=== PATIENT | female | born 1945 | race Caucasian/White ===

== ENCOUNTER → 2017-06-11 | Outpatient (CLI) | payer OTHER ==
--- NOTE | 2017-06-11 17:18 | DIAGNOSTIC IMAGING REPORT ---
LEFT LOWER EXTREMITY VENOUS DOPPLER HISTORY: Left leg edema. COMPARISON STUDY: None. FINDINGS: There is normal compressibility, flow, and augmentation within the left lower extremity deep venous system. IMPRESSION: No DVT within the left lower extremity. Electronically signed by: Alfonso Collins M.D. 06/11/2017 5:17 PM Dictated Date/Time: 06/11/2017 5:17 PM
== END | disposition home or self-care (01) ==
LOC: C.ULTR 16:11
PROVIDERS: ATTEND Internal Medicine
DX: R60.0 Localized edema (principal)

== ENCOUNTER → 2017-07-04 | Outpatient (CLI) | payer OTHER ==
--- NOTE | 2017-07-04 15:32 | MAMMOGRAPHY REPORT ---
BILATERAL DIGITAL SCREENING MAMMOGRAM TOMOSYNTHESIS WITH CAD: 07/04/2017 CLINICAL HISTORY: Routine screening. Patient has no complaints. TECHNIQUE: Breast tomosynthesis in addition to standard 2D mammography was performed. Current study was also evaluated with a Computer Aided Detection (CAD) system. COMPARISON: Comparison is made to exams dated: 06/24/2015 mammogram, 05/21/2013 mammogram, 10/08/2011 nish mogram, 08/08/2009 mammogram - [facility], 11/10/2007, and 11/08/2006. BREAST COMPOSITION: The tissue of both breasts is almost entirely fatty. FINDINGS: No suspicious masses, calcifications, or areas of architectural distortion are noted in ei ther breast. There has been no significant interval change compared to prior exams. Scattered bilater al benign-appearing calcifications are not significantly changed. A biopsy clip is again noted withi n the right breast. IMPRESSION: ACR BI-RADS CATEGORY 2: BENIGN There is no mammographic evidence of malignancy. A 1 year screening mammogram is recommended. The pa tient will receive written notification of the results. Approximately 10% of breast cancers are not detected with mammography. A negative mammographic report should not delay biopsy if a clinically suggestive mass is present. Amanda Burgess M.D. ah/:07/04/2017 12:12:24 [employer] [employer]iser: Katherine EKCERT)([place]), [facility] letter sent: Normal 1/2 BI-RADS Code: ACR BI-RADS Category 2: Benign
== END | disposition home or self-care (01) ==
LOC: C.MAMM 10:46
PROVIDERS: ATTEND Internal Medicine
DX: Z12.31 Encounter for screening mammogram for malignant neoplasm of breast (principal)

== ENCOUNTER 2024-04-09 18:40 | Inpatient (IN) ==
[2024-04-09 19:07] LABS: Basophils # (auto) 0.07 K/uL (0.00-0.20); Basophils % (auto) 0.5 %; Eosinophils # (auto) 0.01 K/uL (0.00-0.50); Eosinophils % (auto) 0.1 %; Hematocrit (blood only) 34.4 % (37.0-47.0); Hemoglobin 11.6 g/dl (12.0-16.0); Immature Granulocytes # (auto) 0.06 K/uL (0.01-0.20); Immature Granulocytes % (auto) 0.4 %; Lymphocytes # (auto) 1.62 K/uL (1.20-3.40); Lymphocytes % (auto) 11.6 %; Mean Corpuscular Hemoglobin 29.4 pg (25.0-34.0); Mean Corpuscular Hgb Conc 33.7 g/dL (32.0-36.0); Mean Corpuscular Volume 87.1 fL (80.0-100.0); Mean Platelet Volume 9.7 fL (9.4-12.4); Monocytes # (auto) 0.98 K/uL (0.11-0.59); Neutrophils # (auto) 11.26 K/uL (1.40-6.50); Neutrophils % (auto) 80.4 %; Platelet Count 430 K/uL (130-400); RDW Coefficient of Variation 14.2 % (11.5-14.5); RDW Standard Deviation 45.6 fL (36.4-46.3); Red Blood Count 3.95 M/uL (4.20-5.40)
[2024-04-09 19:21] LABS: Albumin Globulin Ratio 0.8 (0.9-2); Albumin Level 3.7 gm/dl (3.4-5.0); BUN Creatinine Ratio 17.5 (10-20); Bilirubin,Total 0.9 mg/dl (0.2-1.0); Calcium 9.9 mg/dl (8.6-10.3); Creatinine Clr Calc Pharmacy 19.2 ml/min; Globulin 4.5 gm/dl (2.5-4.0); Potassium 4.1 mmol/L (3.5-5.1); Total Protein 8.2 gm/dl (6.0-8.3)
--- NOTE | 2024-04-09 19:31 | Emergency Department Note ---
Impression & Plan Abdominal pain, HTN (hypertension), Ileus, Constipation, Elevated lactic acid level ED Provider Note NAME: PAOLO PLEITEZ AGE: 78 SEX: F : 1945 ARRIVES VIA: Walk-In INFORMANT: Patient ED PROVIDER(S): Neville Carr DO CHIEF COMPLAINT: Abdominal pain HPI: Patient is a 78-year-old female who presents ER for mid to lower abdominal pain which radiates into the left lower quadrant. Associate with nausea but no vomiting. She notes she has not had a bowel movement for at least 2 weeks. Has not really been eating much but has been drinking. Denies any dysuria, urgency, or frequency. No headache or change in vision. No chest pain or shortness of breath. Daughter who is present at bedside provides additional history and notes that she had x-rays performed as an outpatient which showed a obstruction. Previous surgeries include cholecystectomy and hysterectomy. ADDITIONAL HISTORY OBTAINED: Per HPI Chronic Medical/Social Conditions Affecting Care: Per HPI PAST MEDICAL HISTORY:See Below PAST SURGICAL HISTORY:See Below FAMILY HISTORY:See Below SOCIAL HISTORY:See Below HOME MEDICATIONS:See Below ALLERGIES:See Below VITALS:See Below PHYSICAL EXAMINATION: GENERAL: Sitting up in bed, alert, well appearing, well nourished, no distress, non-toxic EYE EXAM: normal conjunctiva. OROPHARYNX: mucous membranes are moist NECK: supple, no nuchal rigidity, no adenopathy, non-tender LUNGS: Clear to auscultation. Normal chest wall mechanics HEART: no murmurs, S1 normal and S2 normal ABDOMEN: abdomen soft, faint tenderness in left lower quadrant, normo-active bowel sounds, no masses, no rebound or guarding. UPPER EXTREMITIES: upper extremities are grossly normal. LOWER EXTREMITIES: No pitting edema. NEURO EXAM: Normal sensorium, cranial nerves II-XII grossly intact, normal speech, no gross weakness of arms, no gross weakness of legs. MEDICAL DECISION MAKING: Patient is a 78-year-old female who presents ER with a past medical history of hypertension, COPD and dyslipidemia for the above-stated complaint. IV was established and blood work was obtained. Labs show mild leukocytosis of 14,000. Mild anemia at 11.6. BMP with mild hyponatremia at 129. Creatinine at 1.6. LFTs and bilirubin were unremarkable. Lipase was normal. Lactate was slightly elevated at 2.3. Initial CT of the abdomen pelvis after review of external records/x-rays which showed an ileus performed in [facility] from today showed abnormality around the aorta at the diaphragm level. I discussed this with Dr. Santoyo and consequently a CT angio of the chest abdomen pelvis was performed. Following this they noted no dissection of the aorta. There was multiple areas of narrowing of the arteries but no signs of ischemic bowel per Dr. Andrew Bentley. With this patient was given mag citrate. She had a small bowel movement. She felt slightly better. Blood pressures have trended down from the 180s to 140s function with bowel movement. With the slight elevation of lactate at 2.3, mild hyponatremia at 129 and white count of 18,000 did discuss case with the hospitalist as well as [employer] from general surgery for observation overnight. Consults/Care Managements Discussions: Per [facility] Triage Nursing notes reviewed. Limited review of prior medical records performed Vital Signs: reviewed and remarkable for tachy Differential diagnosis: Differential diagnoses includes but is not limited to gastritis, peptic ulcer disease, GERD, gallbladder disease, pancreatitis, small bowel obstruction, appendicitis, diverticulitis, hernia, urinary tract infection, torsion, [/ectopic (if female)], perforation, trauma, infectious. ER treatment provided: See below Diagnostics interpreted by me include EKG and cardiac monitoring as listed below: -Cardiac Monitoring: An order was placed for continuous cardiac monitoring. The monitor shows a rate of 101 with sinus rhythm. -ECG: none -Laboratory studies:Interpreted by me as stated above in MDM and shown below. Imaging studies: Xrays: As interpreted by me:none CTs show: CT abdomen pelvis per my preliminary interpretation showed large dilated bowel CT angio of the chest abdomen pelvis showed no signs of ischemic gut but did show a known abdominal aortic aneurysm with multiple chronic abnormalities per radiology Procedures:none Critical Care: None Past Med/Surg History Problem List (Updated 02/02/24 @ 00:06 by Anderson Hernandez) Dyslipidemia Hypertension COPD (chronic obstructive pulmonary disease) Social History Smoking Status: Current every day smoker Tobacco Type: Cigarettes Feels Safe at Home: Yes Allergies Allergies Allergy/AdvReac Type Severity Reaction Status Date / Time aspirin Allergy Intermediate Unverified 03/25/09 03:37 oxycodone Allergy Intermediate Unverified 03/25/09 03:37 Home Meds Home Medications Medication Instructions Recorded Confirmed albuterol sulfate 2.5 mg/3 mL 2.5 mg inhalation Q6H PRN Wheezing 01/18/24 04/09/24 (0.083 %) solution for nebulization albuterol sulfate 90 mcg/actuation 2 puff inhalation Q4 PRN Wheezing 01/18/24 04/09/24 aerosol inhaler (Ventolin HFA) aspirin 81 mg chewable tablet 81 mg PO DAILY 01/18/24 04/09/24 (Children's Aspirin) losartan 50 mg tablet 50 mg PO QAM 01/18/24 04/09/24 simvastatin 20 mg tablet 20 mg PO QAM 01/18/24 04/09/24 tiotropium bromide 18 mcg capsule 1 cap inhalation DAILY 01/18/24 04/09/24 with inhalation device (Spiriva with HandiHaler) duloxetine 60 mg capsule,delayed 60 mg PO QAM 04/09/24 04/09/24 release losartan 25 mg tablet 25 mg PO QAM 04/09/24 04/09/24 polyethylene glycol 3350 17 17 g PO QAM 04/09/24 04/09/24 gram/dose oral powder (Miralax) sennosides 8.6 mg tablet 17.2 mg PO QAM 04/09/24 04/09/24 Results & Data (ED) Vital Signs Vital Signs - 24 hr 04/09/24 18:44 04/09/24 20:02 04/09/24 20:09 Temperature 36.2 C L Temperature Source Temporal Artery Scan Pulse Rate 118 H 107 H 104 H Pulse Rate [Apical] Pulse Rate from SpO2 Sensor 104 H Respiratory Rate 20 19 Respiratory Effort / Characteristics Non-Labored Respiratory Depth Normal Respiratory Pattern Regular Blood Pressure 116/74 182/100 H Blood Pressure [Right Arm] Blood Pressure Mean 88 127 Blood Pressure Mean [Right Arm] Pulse Oximetry 97 97 Oxygen Delivery Method Room Air Sepsis Recent Fever Within 48 Hours No Sepsis New/Unexplained Change in Mental Status N/A Sepsis Action Taken by Nursing No Action Required 04/09/24 20:33 04/09/24 20:34 04/09/24 20:34 Temperature Temperature Source Pulse Rate 102 H Pulse Rate [Apical] 103 H Pulse Rate from SpO2 Sensor 102 H Respiratory Rate 17 19 Respiratory Effort / Characteristics Non-Labored Spontaneous Respiratory Depth Normal Respiratory Pattern Regular Blood Pressure 184/102 H Blood Pressure [Right Arm] 184/102 H Blood Pressure Mean 130 Blood Pressure Mean [Right Arm] 129 Pulse Oximetry 96 97 Oxygen Delivery Method Sepsis Recent Fever Within 48 Hours Sepsis New/Unexplained Change in Mental Status Sepsis Action Taken by Nursing 04/09/24 20:34 04/09/24 21:00 04/09/24 21:00 Temperature Temperature Source Pulse Rate 101 H Pulse Rate [Apical] Pulse Rate from SpO2 Sensor 101 H Respiratory Rate 19 Respiratory Effort / Characteristics Respiratory Depth Respiratory Pattern Blood Pressure 184/102 H 194/104 H Blood Pressure [Right Arm] Blood Pressure Mean 130 148 Blood Pressure Mean [Right Arm] Pulse Oximetry 96 Oxygen Delivery Method Sepsis Recent Fever Within 48 Hours Sepsis New/Unexplained Change in Mental Status Sepsis Action Taken by Nursing 04/09/24 21:00 04/09/24 21:39 04/09/24 22:00 Temperature Temperature Source Pulse Rate 102 H 103 H Pulse Rate [Apical] Pulse Rate from SpO2 Sensor 101 H 101 H Respiratory Rate 18 21 Respiratory Effort / Characteristics Respiratory Depth Respiratory Pattern Blood Pressure 194/104 H 186/102 H 180/105 H Blood Pressure [Right Arm] Blood Pressure Mean 148 130 130 Blood Pressure Mean [Right Arm] Pulse Oximetry 96 96 Oxygen Delivery Method Sepsis Recent Fever Within 48 Hours Sepsis New/Unexplained Change in Mental Status Sepsis Action Taken by Nursing 04/09/24 22:30 04/09/24 23:30 Temperature Temperature Source Pulse Rate 107 H 114 H Pulse Rate [Apical] Pulse Rate from SpO2 Sensor 107 H Respiratory Rate 21 20 Respiratory Effort / Characteristics Respiratory Depth Respiratory Pattern Blood Pressure 139/88 Blood Pressure [Right Arm] Blood Pressure Mean 129 Blood Pressure Mean [Right Arm] Pulse Oximetry 98 98 Oxygen Delivery Method Sepsis Recent Fever Within 48 Hours Sepsis New/Unexplained Change in Mental Status Sepsis Action Taken by Nursing Laboratory Data 04/09/24 18:51 04/09/24 18:51 Lab Results 04/09/24 04/09/24 Range/Units 18:51 23:30 WBC 14.00 H (4.8-10.8) K/ul RBC 3.95 L (4.20-5.40) M/uL Hgb 11.6 L (12.0-16.0) g/dl Hct 34.4 L (37.0-47.0) % MCV 87.1 (80.0-100.0) fL MCH 29.4 (25.0-34.0) pg MCHC 33.7 (32.0-36.0) g/dL RDW Std Deviation 45.6 (36.4-46.3) fL RDW Coeff of August 14.2 (11.5-14.5) % Plt Count 430 H (130-400) K/uL MPV 9.7 (9.4-12.4) fL Immature Gran % (Auto) 0.4 % Neut % (Auto) 80.4 % Lymph % (Auto) 11.6 % [place] % (Auto) 7.0 % Eos % (Auto) 0.1 % Baso % (Auto) 0.5 % Neut # (Auto) 11.26 H (1.40-6.50) K/uL Lymph # (Auto) 1.62 (1.20-3.40) K/uL [place] # (Auto) 0.98 H (0.11-0.59) K/uL Eos # (Auto) 0.01 (0.00-0.50) K/uL Baso # (Auto) 0.07 (0.00-0.20) K/uL Immature Gran # (Auto) 0.06 (0.01-0.20) K/uL Sodium 129 L (136-145) mmol/L Potassium 4.1 (3.5-5.1) mmol/L Chloride 92 L (98-107) mmol/L Carbon Dioxide 25 (21-32) mmol/L Anion Gap 12 H (3-11) BUN 28 H (6-23) mg/dl Creatinine 1.60 H (0.6-1.2) mg/dl Est Cr Clr Drug Dosing 19.2 ml/min eGFR 32.60 BUN/Creatinine Ratio 17.5 (10-20) Glucose 121 H (70-99(Fasting)) mg/dl Lactate 2.3 H* (0.4-2.0) mmol/L Calcium 9.9 (8.6-10.3) mg/dl Total Bilirubin 0.9 (0.2-1.0) mg/dl AST 12 L (13-39) U/L ALT 7 (7-52) U/L Alkaline Phosphatase 105 H (34-104) U/L Total Protein 8.2 (6.0-8.3) gm/dl Albumin 3.7 (3.4-5.0) gm/dl Globulin 4.5 H (2.5-4.0) gm/dl Albumin/Globulin Ratio 0.8 L (0.9-2) Lipase 6 L (11-82) U/L Administered Medications Discontinued Medications Sodium Chloride (Nss) 1,000 mls @ 999 mls/hr IV .Q1H1M ONE Stop: 04/09/24 20:22 Last Infusion: 04/09/24 22:02 Dose: Infused Documented By: Admin: 04/09/24 20:05 Dose: 999 mls/hr Documented By: WESLEY Ioversol (Optiray 320 100ml) 90 ml IV ONCE ONE Stop: 04/09/24 19:49 Last Admin: 04/09/24 19:48 Dose: 90 ml Documented By: BROOKS Ioversol (Optiray 320 125ml) 115 ml IV ONCE ONE Stop: 04/09/24 21:20 Last Admin: 04/09/24 21:20 Dose: 115 ml Documented By: BROOKS Magnesium Citrate (Magnesium Citrate 296 Ml/Btl) 296 ml PO NOW STA Stop: 04/09/24 21:11 Last Admin: 04/09/24 22:03 Dose: 296 ml Documented By: WESLEY Imaging Data Radiologist's Impression: Abdomen/Pelvis CT 04/09/24 19:22 Exam(s): CT ABDOMEN + PELVIS Without Contrast EXAM: CT Abdomen and Pelvis Without Intravenous Contrast CLINICAL HISTORY: Reason for exam: abd pain n/v. TECHNIQUE: Axial computed tomography images of the abdomen and pelvis without intravenous contrast. CTDI is 6.77 mGy and DLP is 307.45 mGy-cm. Automated exposure control was utilized for the study. A dose lowering technique was utilized adhering to the principles of ALARA. COMPARISON: No relevant prior studies available. FINDINGS: Lung bases: Unremarkable. ABDOMEN: Liver: Unremarkable. Gallbladder and bile ducts: Unremarkable. No calcified stones. No ductal dilation. Pancreas: Unremarkable. No ductal dilation. Spleen: Unremarkable. No splenomegaly. Adrenals: Unremarkable. No mass. Kidneys and ureters: Unremarkable. No obstructing stones. No hydronephrosis. Stomach and bowel: Increased colonic stool retention suggesting constipation. There is significant stool and gas in the right colon and transverse colon. No mechanical bowel obstruction. Distal colonic diverticula without diverticulitis. PELVIS: Appendix: Appendix not identified with certainty. Bladder: Unremarkable. No stones. Reproductive: Hysterectomy. ABDOMEN and PELVIS: Intraperitoneal space: Unremarkable. No free air, significant free fluid, or fluid collection. Bones/joints: Osteopenia. No acute fracture or dislocation. Soft tissues: Unremarkable. Vasculature: Aortoiliac atherosclerosis. 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 There is some nonspecific soft tissue density surrounding the aneurysm. 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 Fusiform infrarenal aortic aneurysm measuring up to 3 cm. Lymph nodes: Unremarkable. No enlarged lymph nodes. IMPRESSION: 1. Increased colonic stool retention suggesting constipation. There is significant stool and gas in the right colon and transverse colon. 2. Aortoiliac atherosclerosis. 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 There is some nonspecific soft tissue density surrounding the aneurysm. As clinically feasible, consider CTA for further characterization. Vascular surgery follow-up is recommended. Electronically signed by: Dann Vieyra M.D. 04/09/24 20:35 PM Chest CTA 04/09/24 21:10 Exam(s): CTA CHEST W/WO Contrast IV Amt: 115 ml optiray 320 EXAM: CT Angiography Chest Without and With Intravenous Contrast CLINICAL HISTORY: ? Dissection at the junction of the diaphragm per. TECHNIQUE: Axial computed tomographic angiography images of the chest without and with intravenous contrast using aortic dissection protocol. CTDI is 65. 74 mGy and DLP is 575.65 mGy-cm. Automated exposure control was utilized for the study. A dose lowering technique was utilized adhering to the principles of ALARA. MIP reconstructed images were created and reviewed. CONTRAST: Patient received 115 ml optiray 320 of IV contrast 115 mL Optiray 320 COMPARISON: Noncontrast CT abdomen and pelvis performed earlier FINDINGS: Aorta: The ascending aorta is ectatic, with the mid ascending aorta measuring 3.3 cm. The aortic arch and descending aorta demonstrate extensive atherosclerotic disease. No intimal wall abnormality identified on the precontrast imaging. Postcontrast imaging demonstrates extensive atheromatous changes involving the mid to descending aorta. 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 There is eccentric atheromatous changes. No intimal wall abnormality noted on the precontrast examination. No extravasation. However, there is questionable soft tissue beyond the calcified aortic wall margin at the hiatus measuring up to 7 mm in thickness. No dissection Pulmonary arteries: The proximal pulmonary artery segments are patent. Great vessels of aortic arch: There is a normal type III branching pattern of the proximal great vessels with atheromatous changes. No critical stenosis, dissection or occlusion. Lungs: No focal airspace consolidation. There is a somewhat irregular nodular structure in the lateral right upper lobe measuring 7.9 x 7 x 7 mm (series 7; images 74-79). Somewhat angular and spiculated margins suggested inferiorly. There are additional nodular structures within the 9 mm structure noted in the superior segment of the left lower lobe adjacent to the major fissure (image 90). There is also subtle irregularity juxtapleural changes measuring 6 mm laterally (image 96). Mild peribronchial cuffing noted centrally. Subtle short segment opacification of the proximal subsegmental branches serving the right middle lobe. Pleural space: Unremarkable. No significant effusion. No pneumothorax. Heart: The cardiac chambers are normal in size. Moderate proximal LAD calcification. No pericardial effusion. Bones/joints: No acute fracture. No dislocation. Soft tissues: Unremarkable. Lymph nodes: Unremarkable. No enlarged lymph nodes. IMPRESSION: 1. 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 There is eccentric atheromatous changes. No intimal wall abnormality noted on the precontrast examination. No extravasation. However, there is questionable soft tissue beyond the calcified aortic wall margin at the hiatus measuring up to 7 mm in thickness. Recommend nonemergent vascular surgery consultation. 2. Atherosclerotic disease involving the remaining thoracic aorta with ectasia of the ascending segment. No dissection. No intimal wall abnormality identified. 3. There is a somewhat irregular nodular structure in the lateral right upper lobe measuring 7.9 x 7 x 7 mm (series 7; images 74-79). Somewhat angular and spiculated margins suggested inferiorly. There are additional nodular structures within the 9 mm structure noted in the superior segment of the left lower lobe adjacent to the major fissure (image 90). There is also subtle irregularity juxtapleural changes measuring 6 mm laterally (image 96). Fleischner Society Guidelines (MacMahon, et al. Radiology 2017; 284(1):228-43) suggest the following. For low-risk patients recommend follow-up chest CT at 3-6 months. If unchanged consider an additional follow-up CT at 18-24 months. For high- risk patients initial follow-up chest CT at 3-6 months and if unchanged, 18-24 months. 4. Mild peribronchial cuffing noted centrally. Subtle short segment opacification of the proximal subsegmental branches serving the right middle lobe. This may represent chronic changes, subtle inflammatory or infectious bronchitis. Electronically signed by: Andrew Deal MD 04/09/24 22:05 PM Abdomen/Pelvis CTA 04/09/24 21:12 Exam(s): CTA ABDOMEN + PELVIS With Contrast IV Amt: 115 ml optiray 320 EXAM: CT Angiography Abdomen and Pelvis With Intravenous Contrast CLINICAL HISTORY: ? dissection. TECHNIQUE: Axial computed tomographic angiography images of the abdomen and pelvis with intravenous contrast. CTDI is 5.73 mGy and DLP is 354.01 mGy-cm. Automated exposure control was utilized for the study. A dose lowering technique was utilized adhering to the principles of ALARA. MIP reconstructed images were created and reviewed. CONTRAST: Patient received 115 ml optiray 320 of IV contrast COMPARISON: Noncontrast CT abdomen and pelvis performed at 1949 hrs. 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 There is eccentric atheromatous changes. No intimal wall abnormality noted on the precontrast examination. No extravasation. However, there is questionable soft tissue beyond the calcified aortic wall margin at the hiatus measuring up to 7 mm in thickness. Undulating ectasia of the infrarenal aorta throughout the abdomen with the aorta measuring up to 3 cm in diameter with eccentric atheromatous changes. There is a gradual tapering above the iliac bifurcation. No acute periaortic abnormality identified. No dissection. 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 There is a tight stenosis of the ostium involving the SMA, measuring only 1.5 mm (series 8; images 67- 76). The MARIO is hypertrophied and is patent. Renal arteries: There is a thrombosed saccular aneurysm component posterior and slightly inferior to the right renal artery ostium with the aneurysm measuring 10 mm (series 800; image 39). There is tight stenosis of the proximal right renal artery, measuring only 1-2 mm. Mild narrowing of the proximal left renal artery. Iliac arteries: Atherosclerotic disease involving the iliac arteries. There is a stent in the right external iliac artery. The left external iliac artery is occluded. The femoral-femoral bypass graft is patent with reconstitution of the left distal common femoral artery. Lung bases: For findings regarding the lung bases, please see the CT report of the chest performed concurrently. ABDOMEN: Liver: Unremarkable. No mass. Gallbladder and bile ducts: Cholecystectomy. Status post cholecystectomy. No ductal dilation. Pancreas: Unremarkable. No ductal dilation. No mass. Spleen: Unremarkable. No splenomegaly. Adrenals: Unremarkable. No mass. Kidneys and ureters: Unremarkable. No hydronephrosis. No solid mass. Stomach and bowel: No focal high-grade bowel obstruction. No definite asymmetric bowel mucosal abnormality. Moderate stool burden. PELVIS: Appendix: No findings to suggest acute appendicitis. Bladder: Unremarkable. No mass. Reproductive: Status post hysterectomy. ABDOMEN and PELVIS: Intraperitoneal space: Unremarkable. No significant fluid collection. No free air. Bones/joints: A healing subacute fracture involving the anterior column of the right acetabulum and involving the right inferior pubic ramus. Subacute fracture involving the right sacral wing. No dislocation. Soft tissues: Unremarkable. Lymph nodes: Unremarkable. No enlarged lymph nodes. IMPRESSION: 1. 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 There is eccentric atheromatous changes. No intimal wall abnormality noted on the precontrast examination. No extravasation. However, there is questionable soft tissue beyond the calcified aortic wall margin at the hiatus measuring up to 7 mm in thickness. Recommend nonemergent vascular surgery consultation. 2. 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 There is a tight stenosis of the ostium involving the SMA, measuring only 1.5 mm (series 8; images 67-76). The MARIO is hypertrophied and is patent. While this may represent incidental finding, given the adjacent fusiform aneurysm, this will be clinically significant if there is planned endovascular stenting. 3. Undulating ectasia of the infrarenal aorta throughout the abdomen with the aorta measuring up to 3 cm in diameter with eccentric atheromatous changes. There is a gradual tapering above the iliac bifurcation. No acute periaortic abnormality identified. 4. There is tight stenosis of the proximal right renal artery, measuring only 1-2 mm. Mild narrowing of the proximal left renal artery. 5. Atherosclerotic disease involving the iliac arteries. There is a stent in the right external iliac artery. The left external iliac artery is occluded. The femoral-femoral bypass graft is patent with reconstitution of the left distal common femoral artery. 6. A healing subacute fracture involving the anterior column of the right acetabulum and involving the right inferior pubic ramus. Subacute fracture involving the right sacral wing. Electronically signed by: Andrew Deal MD 04/09/24 22:22 PM Discharge Plan Visit Data Chief Complaint: GI Assessment Stated Complaint: BOWEL OBSTRUCTION POSSIBLE ED Provider: Neville Carr Forms Stand Alone Forms: [facility] Prescriptions Prescriptions: No Action losartan 50 mg tablet 50 mg PO QAM tiotropium bromide [Spiriva with HandiHaler] 18 mcg capsule, w/inhalation device 1 cap INHALATION DAILY simvastatin 20 mg tablet 20 mg PO QAM aspirin [Children's Aspirin] 81 mg Tablet,Chewable 81 mg PO DAILY albuterol sulfate [Ventolin HFA] 90 mcg/actuation HFA aerosol inhaler 2 puff INHALATION Q4 PRN (Reason: Wheezing) albuterol sulfate 2.5 mg /3 mL (0.083 %) Solution For Nebulization 2.5 mg INHALATION Q6H PRN (Reason: Wheezing) losartan 25 mg tablet 25 mg PO QAM duloxetine 60 mg capsule,delayed release(DR/EC) 60 mg PO QAM sennosides 8.6 mg Tablet 17.2 mg PO QAM polyethylene glycol 3350 [Miralax] 17 gram/dose Powder 17 g PO QAM Referrals Referrals: Maria G Rendon, [Primary Care Provider] -
[2024-04-09] MEDS: OPTIRAY 320 100ml IV ONE (19:48)
[2024-04-09] MEDS: SODIUM CHLORIDE 0.9% 1,000 ML IV ONE (20:05)
--- NOTE | 2024-04-09 20:36 | CT Scan Report ---
Exam(s): CT ABDOMEN + PELVIS Without Contrast EXAM: CT Abdomen and Pelvis Without Intravenous Contrast CLINICAL HISTORY: Reason for exam: abd pain n/v. TECHNIQUE: Axial computed tomography images of the abdomen and pelvis without intravenous contrast. CTDI is 6.77 mGy and DLP is 307.45 mGy-cm. Automated exposure control was utilized for the study. A dose lowering technique was utilized adhering to the principles of ALARA. COMPARISON: No relevant prior studies available. FINDINGS: Lung bases: Unremarkable. ABDOMEN: Liver: Unremarkable. Gallbladder and bile ducts: Unremarkable. No calcified stones. No ductal dilation. Pancreas: Unremarkable. No ductal dilation. Spleen: Unremarkable. No splenomegaly. Adrenals: Unremarkable. No mass. Kidneys and ureters: Unremarkable. No obstructing stones. No hydronephrosis. Stomach and bowel: Increased colonic stool retention suggesting constipation. There is significant stool and gas in the right colon and transverse colon. No mechanical bowel obstruction. Distal colonic diverticula without diverticulitis. PELVIS: Appendix: Appendix not identified with certainty. Bladder: Unremarkable. No stones. Reproductive: Hysterectomy. ABDOMEN and PELVIS: Intraperitoneal space: Unremarkable. No free air, significant free fluid, or fluid collection. Bones/joints: Osteopenia. No acute fracture or dislocation. Soft tissues: Unremarkable. Vasculature: Aortoiliac atherosclerosis. 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 There is some nonspecific soft tissue density surrounding the aneurysm. 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 Fusiform infrarenal aortic aneurysm measuring up to 3 cm. Lymph nodes: Unremarkable. No enlarged lymph nodes. IMPRESSION: 1. Increased colonic stool retention suggesting constipation. There is significant stool and gas in the right colon and transverse colon. 2. Aortoiliac atherosclerosis. 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 There is some nonspecific soft tissue density surrounding the aneurysm. As clinically feasible, consider CTA for further characterization. Vascular surgery follow-up is recommended. Electronically signed by: Dann Vieyra M.D. 04/09/24 20:35 PM
[2024-04-09] MEDS: OPTIRAY 320 125ml IV ONE (21:20)
[2024-04-09] MEDS: MAGNESIUM CITRATE 296 ML/BTL PO STA (22:03)
--- NOTE | 2024-04-09 22:07 | CT Scan Report ---
Exam(s): CTA CHEST W/WO Contrast IV Amt: 115 ml optiray 320 EXAM: CT Angiography Chest Without and With Intravenous Contrast CLINICAL HISTORY: ? Dissection at the junction of the diaphragm per. TECHNIQUE: Axial computed tomographic angiography images of the chest without and with intravenous contrast using aortic dissection protocol. CTDI is 65. 74 mGy and DLP is 575.65 mGy-cm. Automated exposure control was utilized for the study. A dose lowering technique was utilized adhering to the principles of ALARA. MIP reconstructed images were created and reviewed. CONTRAST: Patient received 115 ml optiray 320 of IV contrast 115 mL Optiray 320 COMPARISON: Noncontrast CT abdomen and pelvis performed earlier FINDINGS: Aorta: The ascending aorta is ectatic, with the mid ascending aorta measuring 3.3 cm. The aortic arch and descending aorta demonstrate extensive atherosclerotic disease. No intimal wall abnormality identified on the precontrast imaging. Postcontrast imaging demonstrates extensive atheromatous changes involving the mid to descending aorta. 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 There is eccentric atheromatous changes. No intimal wall abnormality noted on the precontrast examination. No extravasation. However, there is questionable soft tissue beyond the calcified aortic wall margin at the hiatus measuring up to 7 mm in thickness. No dissection Pulmonary arteries: The proximal pulmonary artery segments are patent. Great vessels of aortic arch: There is a normal type III branching pattern of the proximal great vessels with atheromatous changes. No critical stenosis, dissection or occlusion. Lungs: No focal airspace consolidation. There is a somewhat irregular nodular structure in the lateral right upper lobe measuring 7.9 x 7 x 7 mm (series 7; images 74-79). Somewhat angular and spiculated margins suggested inferiorly. There are additional nodular structures within the 9 mm structure noted in the superior segment of the left lower lobe adjacent to the major fissure (image 90). There is also subtle irregularity juxtapleural changes measuring 6 mm laterally (image 96). Mild peribronchial cuffing noted centrally. Subtle short segment opacification of the proximal subsegmental branches serving the right middle lobe. Pleural space: Unremarkable. No significant effusion. No pneumothorax. Heart: The cardiac chambers are normal in size. Moderate proximal LAD calcification. No pericardial effusion. Bones/joints: No acute fracture. No dislocation. Soft tissues: Unremarkable. Lymph nodes: Unremarkable. No enlarged lymph nodes. IMPRESSION: 1. 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 There is eccentric atheromatous changes. No intimal wall abnormality noted on the precontrast examination. No extravasation. However, there is questionable soft tissue beyond the calcified aortic wall margin at the hiatus measuring up to 7 mm in thickness. Recommend nonemergent vascular surgery consultation. 2. Atherosclerotic disease involving the remaining thoracic aorta with ectasia of the ascending segment. No dissection. No intimal wall abnormality identified. 3. There is a somewhat irregular nodular structure in the lateral right upper lobe measuring 7.9 x 7 x 7 mm (series 7; images 74-79). Somewhat angular and spiculated margins suggested inferiorly. There are additional nodular structures within the 9 mm structure noted in the superior segment of the left lower lobe adjacent to the major fissure (image 90). There is also subtle irregularity juxtapleural changes measuring 6 mm laterally (image 96). Fleischner Society Guidelines (MacMahon, et al. Radiology 2017; 284(1):228-43) suggest the following. For low-risk patients recommend follow-up chest CT at 3-6 months. If unchanged consider an additional follow-up CT at 18-24 months. For high- risk patients initial follow-up chest CT at 3-6 months and if unchanged, 18-24 months. 4. Mild peribronchial cuffing noted centrally. Subtle short segment opacification of the proximal subsegmental branches serving the right middle lobe. This may represent chronic changes, subtle inflammatory or infectious bronchitis. Electronically signed by: Andrew Deal MD 04/09/24 22:05 PM
--- NOTE | 2024-04-09 22:22 | CT Scan Report ---
Exam(s): CTA ABDOMEN + PELVIS With Contrast IV Amt: 115 ml optiray 320 EXAM: CT Angiography Abdomen and Pelvis With Intravenous Contrast CLINICAL HISTORY: ? dissection. TECHNIQUE: Axial computed tomographic angiography images of the abdomen and pelvis with intravenous contrast. CTDI is 5.73 mGy and DLP is 354.01 mGy-cm. Automated exposure control was utilized for the study. A dose lowering technique was utilized adhering to the principles of ALARA. MIP reconstructed images were created and reviewed. CONTRAST: Patient received 115 ml optiray 320 of IV contrast COMPARISON: Noncontrast CT abdomen and pelvis performed at 1949 hrs. 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 There is eccentric atheromatous changes. No intimal wall abnormality noted on the precontrast examination. No extravasation. However, there is questionable soft tissue beyond the calcified aortic wall margin at the hiatus measuring up to 7 mm in thickness. Undulating ectasia of the infrarenal aorta throughout the abdomen with the aorta measuring up to 3 cm in diameter with eccentric atheromatous changes. There is a gradual tapering above the iliac bifurcation. No acute periaortic abnormality identified. No dissection. 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 There is a tight stenosis of the ostium involving the SMA, measuring only 1.5 mm (series 8; images 67- 76). The MARIO is hypertrophied and is patent. Renal arteries: There is a thrombosed saccular aneurysm component posterior and slightly inferior to the right renal artery ostium with the aneurysm measuring 10 mm (series 800; image 39). There is tight stenosis of the proximal right renal artery, measuring only 1-2 mm. Mild narrowing of the proximal left renal artery. Iliac arteries: Atherosclerotic disease involving the iliac arteries. There is a stent in the right external iliac artery. The left external iliac artery is occluded. The femoral-femoral bypass graft is patent with reconstitution of the left distal common femoral artery. Lung bases: For findings regarding the lung bases, please see the CT report of the chest performed concurrently. ABDOMEN: Liver: Unremarkable. No mass. Gallbladder and bile ducts: Cholecystectomy. Status post cholecystectomy. No ductal dilation. Pancreas: Unremarkable. No ductal dilation. No mass. Spleen: Unremarkable. No splenomegaly. Adrenals: Unremarkable. No mass. Kidneys and ureters: Unremarkable. No hydronephrosis. No solid mass. Stomach and bowel: No focal high-grade bowel obstruction. No definite asymmetric bowel mucosal abnormality. Moderate stool burden. PELVIS: Appendix: No findings to suggest acute appendicitis. Bladder: Unremarkable. No mass. Reproductive: Status post hysterectomy. ABDOMEN and PELVIS: Intraperitoneal space: Unremarkable. No significant fluid collection. No free air. Bones/joints: A healing subacute fracture involving the anterior column of the right acetabulum and involving the right inferior pubic ramus. Subacute fracture involving the right sacral wing. No dislocation. Soft tissues: Unremarkable. Lymph nodes: Unremarkable. No enlarged lymph nodes. IMPRESSION: 1. 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 There is eccentric atheromatous changes. No intimal wall abnormality noted on the precontrast examination. No extravasation. However, there is questionable soft tissue beyond the calcified aortic wall margin at the hiatus measuring up to 7 mm in thickness. Recommend nonemergent vascular surgery consultation. 2. 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 There is a tight stenosis of the ostium involving the SMA, measuring only 1.5 mm (series 8; images 67-76). The MARIO is hypertrophied and is patent. While this may represent incidental finding, given the adjacent fusiform aneurysm, this will be clinically significant if there is planned endovascular stenting. 3. Undulating ectasia of the infrarenal aorta throughout the abdomen with the aorta measuring up to 3 cm in diameter with eccentric atheromatous changes. There is a gradual tapering above the iliac bifurcation. No acute periaortic abnormality identified. 4. There is tight stenosis of the proximal right renal artery, measuring only 1-2 mm. Mild narrowing of the proximal left renal artery. 5. Atherosclerotic disease involving the iliac arteries. There is a stent in the right external iliac artery. The left external iliac artery is occluded. The femoral-femoral bypass graft is patent with reconstitution of the left distal common femoral artery. 6. A healing subacute fracture involving the anterior column of the right acetabulum and involving the right inferior pubic ramus. Subacute fracture involving the right sacral wing. Electronically signed by: Andrew Deal MD 04/09/24 22:22 PM
[2024-04-09] MEDS: SODIUM CHLORIDE 0.9% 500 ML IV ONE (23:51)
--- NOTE | 2024-04-09 23:57 | History & Physical Report ---
Date of Service April 09, 2024 Assessment & Plan (1) Severe sepsis: Plan: Severe sepsis SIRS plus lactic acidosis Secondary to complicated UTI History chronic constipation/gastroparesis/chronic mesenteric ischemia as per records Hypertensive urgency secondary to illness Acute on chronic hyponatremia secondary to illness hx PVD status post surgery hyperlipidemia, on statin Rx COPD, lung status at baseline pulmonary nodules, right upper lobe nodule possibly enlarging on review of outpatient records, CRI, creatinine at baseline history of DVT as per records Hyperglycemia ro DM Malnutrition low BMI ongoing tobacco abuse 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 Heparin subcu Full code Patient granddaughter requesting updates from providers. Ms. Abby Barnett, contact #[phone]. Text document was generated using [employer] voice recognition software. It may contain grammatical or spelling errors. Kindly contact undersigned for clarification of any documentation item in question. History of Present Illness Chief Complaint: Abdominal pain Primary Care Provider: Maria G Rendon, History obtained from patient, family, and records. Medical history significant for PVD status post surgery, hypertension, hyperlipidemia, COPD, pulmonary nodules, CRI (baseline creatinine 1.1-1.4), gastroparesis, chronic mesenteric ischemia as per records, chronic constipation, chronic anemia (baseline hemoglobin of 11), chronic hyponatremia, history of DVT as per records, anxiety disorder, ongoing tobacco abuse. 2 weeks history of worsening achy lower abdominal pain. Dysuria symptoms without fever, chills. Denies hematuria. Usual constipation. Last BM about 2 weeks ago which has happened before as per patient. Patient denies headache, chest pain, SOB symptoms. Some nausea symptoms. Patient directed to ER for evaluation by PCPs office. SBP 180s upon arrival at the ER. Medical History as above 2007 colonoscopy adenomatous and hyperplastic polyps, diverticulosis Surgical History : Cholecystectomy, ALLI, vascular procedures Family History : Breast cancer, lung cancer, bronchial asthma Personal/Social history : 1/4 pack daily, no EtOH intake Allergies Allergy/AdvReac Type Severity Reaction Status Date / Time oxycodone Allergy Intermediate Unknown Unverified 04/10/24 01:13 Home Medications Medication Instructions Recorded Confirmed Type albuterol sulfate 2.5 mg/3 mL 2.5 mg inhalation Q6H PRN Wheezing 01/18/24 04/09/24 History (0.083 %) solution for nebulization albuterol sulfate 90 mcg/actuation 2 puff inhalation Q4 PRN Wheezing 01/18/24 04/09/24 History aerosol inhaler (Ventolin HFA) aspirin 81 mg chewable tablet 81 mg PO DAILY 01/18/24 04/09/24 History (Children's Aspirin) losartan 50 mg tablet 50 mg PO QAM 01/18/24 04/09/24 History simvastatin 20 mg tablet 20 mg PO QAM 01/18/24 04/09/24 History tiotropium bromide 18 mcg capsule 1 cap inhalation DAILY 01/18/24 04/09/24 History with inhalation device (Spiriva with HandiHaler) duloxetine 60 mg capsule,delayed 60 mg PO QAM 04/09/24 04/09/24 History release losartan 25 mg tablet 25 mg PO QAM 04/09/24 04/09/24 History polyethylene glycol 3350 17 17 g PO QAM 04/09/24 04/09/24 History gram/dose oral powder (Miralax) sennosides 8.6 mg tablet 17.2 mg PO QAM 04/09/24 04/09/24 History Past Med/Surg History Problem List (Updated 04/10/24 @ 05:50 by Johnson Bright MD) Severe sepsis Elevated lactic acid level Dyslipidemia Hypertension COPD (chronic obstructive pulmonary disease) Social History Smoking Status: Current every day smoker Tobacco Type: Cigarettes Hx Alcohol Use: No Hx Substance Use: No Preferred Language: [place] Engine 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 Required: No Current Living Situation: Alone Feels Safe at Home: Yes Review of Systems Review of Systems: As per HPI, all other systems reviewed and negative Physical Exam Physical Exam: GENERAL: Comfortable, underweight, no respiratory distress SKIN: Pallor, warm HEENT: Pale palpebral conjunctivae, no ptosis, dry buccal mucosa NECK : Supple, no tenderness CHEST : Decreased breath sounds, no tenderness HEART : Tachycardic, no obvious murmurs ABDOMEN: Some distention, minimal hypogastric tenderness EXTREMITIES : No LE swelling/tenderness, palpable pulses, no other conspicuous deformities noted NEUROLOGIC : Coherent, no facial asymmetry, no other gross focality Results & Data Results & Data Vital Signs (Past 12 Hours) Vital Signs Temp Pulse Pulse Resp BP BP Pulse Ox 04/09/24 23:51 103 H 139/88 98 04/09/24 23:30 114 H 20 139/88 98 04/09/24 22:30 107 H 21 98 04/09/24 22:00 103 H 21 180/105 H 96 04/09/24 21:39 102 H 18 186/102 H 96 04/09/24 21:00 194/104 H 04/09/24 21:00 194/104 H 04/09/24 21:00 101 H 19 96 04/09/24 20:34 184/102 H 04/09/24 20:34 184/102 H 04/09/24 20:34 103 H 19 184/102 H 97 04/09/24 20:33 102 H 17 96 04/09/24 20:09 104 H 19 182/100 H 97 04/09/24 20:02 107 H 04/09/24 18:44 36.2 C L 118 H 20 116/74 97 O2 Del Method 04/09/24 23:51 Room Air 04/09/24 23:30 04/09/24 22:30 04/09/24 22:00 04/09/24 21:39 04/09/24 21:00 04/09/24 21:00 04/09/24 21:00 04/09/24 20:34 04/09/24 20:34 04/09/24 20:34 04/09/24 20:33 04/09/24 20:09 04/09/24 20:02 04/09/24 18:44 Room Air Laboratory Results Laboratory Results WBC 14.00 K/ul (4.8-10.8) H 04/09/24 18:51 RBC 3.95 M/uL (4.20-5.40) L 04/09/24 18:51 Hgb 11.6 g/dl (12.0-16.0) L 04/09/24 18:51 Hct 34.4 % (37.0-47.0) L 04/09/24 18:51 MCV 87.1 fL (80.0-100.0) 04/09/24 18:51 MCH 29.4 pg (25.0-34.0) 04/09/24 18:51 MCHC 33.7 g/dL (32.0-36.0) 04/09/24 18:51 RDW Std Deviation 45.6 fL (36.4-46.3) 04/09/24 18:51 RDW Coeff of August 14.2 % (11.5-14.5) 04/09/24 18:51 Plt Count 430 K/uL (130-400) H 04/09/24 18:51 MPV 9.7 fL (9.4-12.4) 04/09/24 18:51 Immature Gran % (Auto) 0.4 % 04/09/24 18:51 Neut % (Auto) 80.4 % 04/09/24 18:51 Lymph % (Auto) 11.6 % 04/09/24 18:51 [place] % (Auto) 7.0 % 04/09/24 18:51 Eos % (Auto) 0.1 % 04/09/24 18:51 Baso % (Auto) 0.5 % 04/09/24 18:51 Neut # (Auto) 11.26 K/uL (1.40-6.50) H 04/09/24 18:51 Lymph # (Auto) 1.62 K/uL (1.20-3.40) 04/09/24 18:51 [place] # (Auto) 0.98 K/uL (0.11-0.59) H 04/09/24 18:51 Eos # (Auto) 0.01 K/uL (0.00-0.50) 04/09/24 18:51 Baso # (Auto) 0.07 K/uL (0.00-0.20) 04/09/24 18:51 Immature Gran # (Auto) 0.06 K/uL (0.01-0.20) 04/09/24 18:51 Sodium 129 mmol/L (136-145) L 04/09/24 18:51 Potassium 4.1 mmol/L (3.5-5.1) 04/09/24 18:51 Chloride 92 mmol/L (98-107) L 04/09/24 18:51 Carbon Dioxide 25 mmol/L (21-32) 04/09/24 18:51 Anion Gap 12 (3-11) H 04/09/24 18:51 BUN 28 mg/dl (6-23) H 04/09/24 18:51 Creatinine 1.60 mg/dl (0.6-1.2) H 04/09/24 18:51 Est Cr Clr Drug Dosing 19.2 ml/min 04/09/24 18:51 eGFR 32.60 04/09/24 18:51 BUN/Creatinine Ratio 17.5 (10-20) 04/09/24 18:51 Glucose 121 mg/dl (70-99(Fasting)) H 04/09/24 18:51 Lactate 2.3 mmol/L (0.4-2.0) H* 04/09/24 23:30 Calcium 9.9 mg/dl (8.6-10.3) 04/09/24 18:51 Total Bilirubin 0.9 mg/dl (0.2-1.0) 04/09/24 18:51 AST 12 U/L (13-39) L 04/09/24 18:51 ALT 7 U/L (7-52) 04/09/24 18:51 Alkaline Phosphatase 105 U/L (34-104) H 04/09/24 18:51 Total Protein 8.2 gm/dl (6.0-8.3) 04/09/24 18:51 Albumin 3.7 gm/dl (3.4-5.0) 04/09/24 18:51 Globulin 4.5 gm/dl (2.5-4.0) H 04/09/24 18:51 Albumin/Globulin Ratio 0.8 (0.9-2) L 04/09/24 18:51 Lipase 6 U/L (11-82) L 04/09/24 18:51 Impressions Abdomen/Pelvis CT 04/09/24 19:22 Exam(s): CT ABDOMEN + PELVIS Without Contrast EXAM: CT Abdomen and Pelvis Without Intravenous Contrast CLINICAL HISTORY: Reason for exam: abd pain n/v. TECHNIQUE: Axial computed tomography images of the abdomen and pelvis without intravenous contrast. CTDI is 6.77 mGy and DLP is 307.45 mGy-cm. Automated exposure control was utilized for the study. A dose lowering technique was utilized adhering to the principles of ALARA. COMPARISON: No relevant prior studies available. FINDINGS: Lung bases: Unremarkable. ABDOMEN: Liver: Unremarkable. Gallbladder and bile ducts: Unremarkable. No calcified stones. No ductal dilation. Pancreas: Unremarkable. No ductal dilation. Spleen: Unremarkable. No splenomegaly. Adrenals: Unremarkable. No mass. Kidneys and ureters: Unremarkable. No obstructing stones. No hydronephrosis. Stomach and bowel: Increased colonic stool retention suggesting constipation. There is significant stool and gas in the right colon and transverse colon. No mechanical bowel obstruction. Distal colonic diverticula without diverticulitis. PELVIS: Appendix: Appendix not identified with certainty. Bladder: Unremarkable. No stones. Reproductive: Hysterectomy. ABDOMEN and PELVIS: Intraperitoneal space: Unremarkable. No free air, significant free fluid, or fluid collection. Bones/joints: Osteopenia. No acute fracture or dislocation. Soft tissues: Unremarkable. Vasculature: Aortoiliac atherosclerosis. 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 There is some nonspecific soft tissue density surrounding the aneurysm. 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 Fusiform infrarenal aortic aneurysm measuring up to 3 cm. Lymph nodes: Unremarkable. No enlarged lymph nodes. IMPRESSION: 1. Increased colonic stool retention suggesting constipation. There is significant stool and gas in the right colon and transverse colon. 2. Aortoiliac atherosclerosis. 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 There is some nonspecific soft tissue density surrounding the aneurysm. As clinically feasible, consider CTA for further characterization. Vascular surgery follow-up is recommended. Electronically signed by: Dann Vieyra M.D. 04/09/24 20:35 PM Chest CTA 04/09/24 21:10 Exam(s): CTA CHEST W/WO Contrast IV Amt: 115 ml optiray 320 EXAM: CT Angiography Chest Without and With Intravenous Contrast CLINICAL HISTORY: ? Dissection at the junction of the diaphragm per. TECHNIQUE: Axial computed tomographic angiography images of the chest without and with intravenous contrast using aortic dissection protocol. CTDI is 65. 74 mGy and DLP is 575.65 mGy-cm. Automated exposure control was utilized for the study. A dose lowering technique was utilized adhering to the principles of ALARA. MIP reconstructed images were created and reviewed. CONTRAST: Patient received 115 ml optiray 320 of IV contrast 115 mL Optiray 320 COMPARISON: Noncontrast CT abdomen and pelvis performed earlier FINDINGS: Aorta: The ascending aorta is ectatic, with the mid ascending aorta measuring 3.3 cm. The aortic arch and descending aorta demonstrate extensive atherosclerotic disease. No intimal wall abnormality identified on the precontrast imaging. Postcontrast imaging demonstrates extensive atheromatous changes involving the mid to descending aorta. 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 There is eccentric atheromatous changes. No intimal wall abnormality noted on the precontrast examination. No extravasation. However, there is questionable soft tissue beyond the calcified aortic wall margin at the hiatus measuring up to 7 mm in thickness. No dissection Pulmonary arteries: The proximal pulmonary artery segments are patent. Great vessels of aortic arch: There is a normal type III branching pattern of the proximal great vessels with atheromatous changes. No critical stenosis, dissection or occlusion. Lungs: No focal airspace consolidation. There is a somewhat irregular nodular structure in the lateral right upper lobe measuring 7.9 x 7 x 7 mm (series 7; images 74-79). Somewhat angular and spiculated margins suggested inferiorly. There are additional nodular structures within the 9 mm structure noted in the superior segment of the left lower lobe adjacent to the major fissure (image 90). There is also subtle irregularity juxtapleural changes measuring 6 mm laterally (image 96). Mild peribronchial cuffing noted centrally. Subtle short segment opacification of the proximal subsegmental branches serving the right middle lobe. Pleural space: Unremarkable. No significant effusion. No pneumothorax. Heart: The cardiac chambers are normal in size. Moderate proximal LAD calcification. No pericardial effusion. Bones/joints: No acute fracture. No dislocation. Soft tissues: Unremarkable. Lymph nodes: Unremarkable. No enlarged lymph nodes. IMPRESSION: 1. 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 There is eccentric atheromatous changes. No intimal wall abnormality noted on the precontrast examination. No extravasation. However, there is questionable soft tissue beyond the calcified aortic wall margin at the hiatus measuring up to 7 mm in thickness. Recommend nonemergent vascular surgery consultation. 2. Atherosclerotic disease involving the remaining thoracic aorta with ectasia of the ascending segment. No dissection. No intimal wall abnormality identified. 3. There is a somewhat irregular nodular structure in the lateral right upper lobe measuring 7.9 x 7 x 7 mm (series 7; images 74-79). Somewhat angular and spiculated margins suggested inferiorly. There are additional nodular structures within the 9 mm structure noted in the superior segment of the left lower lobe adjacent to the major fissure (image 90). There is also subtle irregularity juxtapleural changes measuring 6 mm laterally (image 96). Fleischner Society Guidelines (MacMahon, et al. Radiology 2017; 284(1):228-43) suggest the following. For low-risk patients recommend follow-up chest CT at 3-6 months. If unchanged consider an additional follow-up CT at 18-24 months. For high- risk patients initial follow-up chest CT at 3-6 months and if unchanged, 18-24 months. 4. Mild peribronchial cuffing noted centrally. Subtle short segment opacification of the proximal subsegmental branches serving the right middle lobe. This may represent chronic changes, subtle inflammatory or infectious bronchitis. Electronically signed by: Andrew Deal MD 04/09/24 22:05 PM Abdomen/Pelvis CTA 04/09/24 21:12 Exam(s): CTA ABDOMEN + PELVIS With Contrast IV Amt: 115 ml optiray 320 EXAM: CT Angiography Abdomen and Pelvis With Intravenous Contrast CLINICAL HISTORY: ? dissection. TECHNIQUE: Axial computed tomographic angiography images of the abdomen and pelvis with intravenous contrast. CTDI is 5.73 mGy and DLP is 354.01 mGy-cm. Automated exposure control was utilized for the study. A dose lowering technique was utilized adhering to the principles of ALARA. MIP reconstructed images were created and reviewed. CONTRAST: Patient received 115 ml optiray 320 of IV contrast COMPARISON: Noncontrast CT abdomen and pelvis performed at 1949 hrs. 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 There is eccentric atheromatous changes. No intimal wall abnormality noted on the precontrast examination. No extravasation. However, there is questionable soft tissue beyond the calcified aortic wall margin at the hiatus measuring up to 7 mm in thickness. Undulating ectasia of the infrarenal aorta throughout the abdomen with the aorta measuring up to 3 cm in diameter with eccentric atheromatous changes. There is a gradual tapering above the iliac bifurcation. No acute periaortic abnormality identified. No dissection. 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 There is a tight stenosis of the ostium involving the SMA, measuring only 1.5 mm (series 8; images 67- 76). The MARIO is hypertrophied and is patent. Renal arteries: There is a thrombosed saccular aneurysm component posterior and slightly inferior to the right renal artery ostium with the aneurysm measuring 10 mm (series 800; image 39). There is tight stenosis of the proximal right renal artery, measuring only 1-2 mm. Mild narrowing of the proximal left renal artery. Iliac arteries: Atherosclerotic disease involving the iliac arteries. There is a stent in the right external iliac artery. The left external iliac artery is occluded. The femoral-femoral bypass graft is patent with reconstitution of the left distal common femoral artery. Lung bases: For findings regarding the lung bases, please see the CT report of the chest performed concurrently. ABDOMEN: Liver: Unremarkable. No mass. Gallbladder and bile ducts: Cholecystectomy. Status post cholecystectomy. No ductal dilation. Pancreas: Unremarkable. No ductal dilation. No mass. Spleen: Unremarkable. No splenomegaly. Adrenals: Unremarkable. No mass. Kidneys and ureters: Unremarkable. No hydronephrosis. No solid mass. Stomach and bowel: No focal high-grade bowel obstruction. No definite asymmetric bowel mucosal abnormality. Moderate stool burden. PELVIS: Appendix: No findings to suggest acute appendicitis. Bladder: Unremarkable. No mass. Reproductive: Status post hysterectomy. ABDOMEN and PELVIS: Intraperitoneal space: Unremarkable. No significant fluid collection. No free air. Bones/joints: A healing subacute fracture involving the anterior column of the right acetabulum and involving the right inferior pubic ramus. Subacute fracture involving the right sacral wing. No dislocation. Soft tissues: Unremarkable. Lymph nodes: Unremarkable. No enlarged lymph nodes. IMPRESSION: 1. 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 There is eccentric atheromatous changes. No intimal wall abnormality noted on the precontrast examination. No extravasation. However, there is questionable soft tissue beyond the calcified aortic wall margin at the hiatus measuring up to 7 mm in thickness. Recommend nonemergent vascular surgery consultation. 2. 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 There is a tight stenosis of the ostium involving the SMA, measuring only 1.5 mm (series 8; images 67-76). The MARIO is hypertrophied and is patent. While this may represent incidental finding, given the adjacent fusiform aneurysm, this will be clinically significant if there is planned endovascular stenting. 3. Undulating ectasia of the infrarenal aorta throughout the abdomen with the aorta measuring up to 3 cm in diameter with eccentric atheromatous changes. There is a gradual tapering above the iliac bifurcation. No acute periaortic abnormality identified. 4. There is tight stenosis of the proximal right renal artery, measuring only 1-2 mm. Mild narrowing of the proximal left renal artery. 5. Atherosclerotic disease involving the iliac arteries. There is a stent in the right external iliac artery. The left external iliac artery is occluded. The femoral-femoral bypass graft is patent with reconstitution of the left distal common femoral artery. 6. A healing subacute fracture involving the anterior column of the right acetabulum and involving the right inferior pubic ramus. Subacute fracture involving the right sacral wing. Electronically signed by: Andrew Deal MD 04/09/24 22:22 PM
--- NOTE | 2024-04-10 00:27 | Surgery Consultation ---
<Statement entered by Huyen Barnes DO - 04/10/24 12:01> This case has been discussed with the surgical PA and I agree with this plan Date of Consultation April 10, 2024 Assessment & Plan (1) Elevated lactic acid level: I discussed with the treating emergency room physician and the patient is being admitted on the hospitalist service. From a surgery perspective we recommend the following: The patient is noted to have a slight elevation of her lactic acid level. The exact cause of this is uncertain but clinically the patient does not exhibit signs of ischemic bowelat the time of my exam her abdominal exam is entirely benign and her abdomen is nondistended. She is nontoxic-appearing. She does not have any bowel mucosal abnormalities noted on CT angiogram of her abdomen. She is normotensive with only a slight tachycardia. She does not have a fever. She does have a slight leukocytosis. I therefore do not feel acute surgical intervention is required at this time Would recommend providing gentle hydration and trending her lactic acid levels The patient is noted to have significant peripheral vascular abdominal vascular disease. She notes that she continues to smoke and I have encouraged her to stop this habit Would recommend following serial labs Would recommend implementing a bowel regimen so patient's bowel function is more regular Will continue to follow along while patient is hospitalized with additional recommendations to follow. History of Present Illness Reason for Consultation: Abdominal pain with elevated lactic acid History of Present Illness This is a 78-year-old female who presented to the emergency department secondary to abdominal discomfort. Patient notes that in February of this year the patient suffered a fall and suffered a pelvic fracture. She was at a rehab facility for some time but was able to be discharged home. The patient notes that because of her pelvic fracture she was taking narcotic pain medications for pain control which she stopped taking in mid February. She notes that since this time and also due to the cold and icy weather she has not been very mobile and spends most of the day at home sitting down. She reports that she has not had a bowel movement in approximately 2 weeks (she did add that she has never had regular bowel movements and in the past would often go approximately 1 week at times without moving her bowelsthis is often alleviated with [id number] [id number]). Because the patient has not had a bowel movement in approximately 2 weeks she saw her primary care team as she was having some abdominal discomfort. With the symptoms she specifically denied any nausea or vomiting. She denies any fevers, shakes, or chills. When she saw her primary care team an outpatient x-ray was performed and showed findings concerning for a bowel obstruction she was therefore directed to the emergency department. Since arrival to the hospital the patient has had labs and imaging which I independently reviewed. She underwent a noncontrast abdominal and pelvic CT scan. On this study the patient was noted to have a large amount of colonic stool retention which is suggestive of constipation. There is significant stool and gas in the right colon and transverse colon and no evidence of mechanical bowel obstruction. 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 There is also some nonspecific soft tissue density surrounding this aneurysm. Because of the findings on the noncontrast CT scan the treating emergency room physician did opt to get a CT angiogram of the chest abdomen and pelvis. On this study the patient was noted to have fusiform aneurysmal changes at the thoracoabdominal aorta near the abdominal hiatus measuring 4.9 x 6.3 cm. There is no contrast extravasation noted of this aneurysm. There was a soft tissue density beyond the calcified aortic wall margin at the abdominal hiatus measuring 7 mm in thickness. There is a large amount of atherosclerotic disease in the remaining thoracic aorta. The patient was also noted to have a spic ulated lesion in the right upper lobe of the lung measuring 7.9 x 7 x [address] angiogram of the abdomen pelvis patient was again noted to have a fusiform aneurysm of the thoracoabdominal aorta. 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 The inferior mesenteric artery was noted to be patent. There is a tight stenosis noted in the right renal artery. There is some mild narrowing of the left renal artery. 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 Patient was noted to have a stent in the right external iliac artery. 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 Patient did have a fem-fem bypass graft that appeared to be patent. On this abdominal CT scan there is no evidence of bowel obstruction and there is no evidence of asymmetric bowel mucosal abnormality. Labs included CBC white blood cell count was elevated 14.0. Hemoglobin and hematocrit are 11.6 and 34.4. Platelet count was 430,000. Chemistry profile showed sodium was 129 with a potassium of 4.1. BUN and creatinine were 21.6. The patient did have a slightly elevated lactic acid level of 2.3. In the emergency department patient did receive intravenous fluids. She was also administered 1 bottle of magnesium citrate and upon finishing this medication the patient did experience some dry heaves but she was able to move her bowels. She notes that her bowel movement was mostly liquid but was nonbloody. Since she has moved her bowels she noted that her abdominal discomfort has improved significantly. Of note, the patient did not require any analgesics while in the emergency department. At the time of my interview the patient was resting comfortably in bed and she was in no distress. Allergies Allergy/AdvReac Type Severity Reaction Status Date / Time aspirin Allergy Intermediate Unverified 03/25/09 03:37 oxycodone Allergy Intermediate Unverified 03/25/09 03:37 Home Medications Medication Instructions Recorded Confirmed Type albuterol sulfate 2.5 mg/3 mL 2.5 mg inhalation Q6H PRN Wheezing 01/18/24 04/09/24 History (0.083 %) solution for nebulization albuterol sulfate 90 mcg/actuation 2 puff inhalation Q4 PRN Wheezing 01/18/24 04/09/24 History aerosol inhaler (Ventolin HFA) aspirin 81 mg chewable tablet 81 mg PO DAILY 01/18/24 04/09/24 History (Children's Aspirin) losartan 50 mg tablet 50 mg PO QAM 01/18/24 04/09/24 History simvastatin 20 mg tablet 20 mg PO QAM 01/18/24 04/09/24 History tiotropium bromide 18 mcg capsule 1 cap inhalation DAILY 01/18/24 04/09/24 History with inhalation device (Spiriva with HandiHaler) duloxetine 60 mg capsule,delayed 60 mg PO QAM 04/09/24 04/09/24 History release losartan 25 mg tablet 25 mg PO QAM 04/09/24 04/09/24 History polyethylene glycol 3350 17 17 g PO QAM 04/09/24 04/09/24 History gram/dose oral powder (Miralax) sennosides 8.6 mg tablet 17.2 mg PO QAM 04/09/24 04/09/24 History Patient History Social History Smoking Status: Current every day smoker Tobacco Type: Cigarettes Feels Safe at Home: Yes Review of Systems Review of Systems: All systems reviewed & are unremarkable except as noted in HPI & below Physical Exam Constitutional: + thin; no acute distress Eyes: no conjunctival abnormality ENMT: Ears: no hearing impairment and no external ear abnormality Mouth: no oropharynx abnormality Neck: trachea midline Respiratory: normal respiratory effort; no respiratory distress and no labored breathing Cardiovascular: Rate/Rhythm: regular rate and regular rhythm Gastrointestinal (Abdomen): At the time of my exam the patient's abdomen was noted to be benign. It was soft without distention. There is no rebound tenderness or guarding. I do not appreciate any masses or organomegaly. There is no pain noted with palpation. Musculoskeletal: No gross orthopedic abnormalities. Peripheral pulse exam revealed faint dorsalis pedis pulses. I was unable to palpate posterior tibial pulses. The patient had palpable and bounding femoral pulses. She had a femorofemoral byp ass graft that had a palpable pulse. Skin: no rashes Neurologic: moves all extremities Psychiatric: A+Ox3, euthymic affect Results & Data Vital Signs (Past 12 Hours) Vital Signs Temp Pulse Pulse Resp BP BP Pulse Ox 04/10/24 00:00 101 H 04/09/24 23:51 103 H 139/88 98 04/09/24 23:30 114 H 20 139/88 98 04/09/24 22:30 107 H 21 98 04/09/24 22:00 103 H 21 180/105 H 96 04/09/24 21:39 102 H 18 186/102 H 96 04/09/24 21:00 194/104 H 04/09/24 21:00 194/104 H 04/09/24 21:00 101 H 19 96 04/09/24 20:34 184/102 H 04/09/24 20:34 184/102 H 04/09/24 20:34 103 H 19 184/102 H 97 04/09/24 20:33 102 H 17 96 04/09/24 20:09 104 H 19 182/100 H 97 04/09/24 20:02 107 H 04/09/24 18:44 36.2 C L 118 H 20 116/74 97 O2 Del Method 04/10/24 00:00 04/09/24 23:51 Room Air 04/09/24 23:30 04/09/24 22:30 04/09/24 22:00 04/09/24 21:39 04/09/24 21:00 04/09/24 21:00 04/09/24 21:00 04/09/24 20:34 04/09/24 20:34 04/09/24 20:34 04/09/24 20:33 04/09/24 20:09 04/09/24 20:02 04/09/24 18:44 Room Air PG Care Time/CCT Total # of Minutes Spent Total Time Spent with Patient: Total time spent is greater than 50% in coordination of care (as documented) at patient's floor/unit and/or counseling patient: Coding Level of Care Code 42121 INT INP/OBS CARE 3/75MIN Diagnoses Elevated lactic acid level R79.89
[2024-04-10 00:36] LABS: Thyroid Stimulating Hormone 1.263 uIu/ml (0.300-4.500)
[2024-04-10] MEDS: LACTULOSE SYRUP 30 GM/45 ML UDP PO STA (01:32)
[2024-04-10] MEDS: PIPERACILLIN/TAZOBACTAM 4.5 GM/100 ML BAG IV STA (01:35)
[2024-04-10 01:37] LABS: Basophils # (auto) 0.07 K/uL (0.00-0.20); Basophils % (auto) 0.5 %; Eosinophils # (auto) 0.02 K/uL (0.00-0.50); Eosinophils % (auto) 0.2 %; Hematocrit (blood only) 29.5 % (37.0-47.0); Hemoglobin 9.8 g/dl (12.0-16.0); Immature Granulocytes # (auto) 0.04 K/uL (0.01-0.20); Immature Granulocytes % (auto) 0.3 %; Lymphocytes # (auto) 0.71 K/uL (1.20-3.40); Lymphocytes % (auto) 5.4 %; Mean Corpuscular Hemoglobin 29.6 pg (25.0-34.0); Mean Corpuscular Hgb Conc 33.2 g/dL (32.0-36.0); Mean Corpuscular Volume 89.1 fL (80.0-100.0); Mean Platelet Volume 9.8 fL (9.4-12.4); Monocytes # (auto) 1.02 K/uL (0.11-0.59); Monocytes % (auto) 7.8 %; Neutrophils # (auto) 11.28 K/uL (1.40-6.50); Neutrophils % (auto) 85.8 %; Platelet Count 392 K/uL (130-400); RDW Coefficient of Variation 14.4 % (11.5-14.5); RDW Standard Deviation 46.8 fL (36.4-46.3); Red Blood Count 3.31 M/uL (4.20-5.40); White Blood Count 13.14 K/ul (4.8-10.8)
[2024-04-10 01:55] LABS: BUN Creatinine Ratio 18.9 (10-20); Calcium 9.1 mg/dl (8.6-10.3); Creatinine Clr Calc Pharmacy 21.5 ml/min; Potassium 3.7 mmol/L (3.5-5.1)
[2024-04-10] MEDS: METOPROLOL TARTRATE 1 MG/ML VIAL IV STA (02:13)
[2024-04-10] MEDS: SODIUM CHLORIDE 0.9% 1,000 ML IV ONE (02:13)
[2024-04-10] MEDS: POLYETHYLENE (MIRALAX) 17 GM PACK PO STA (02:33)
[2024-04-10] MEDS: DOCUSATE SODIUM/SENNA 50/8.6MG TAB PO SCH (02:33)
--- OUTSIDE RECORDS SUMMARY | 2024-04-10 03:11 | External Medical Summary | Summary of Care ---
Author Name Unknown Organization [facility] Address [address] [address] Phone [phone] Care Team Providers Care Automobile Or Truck Rental Dispatcher Name Role Phone Maria G Rendon DO Primary Care Provider Reason for Visit * Reason Onset Date Comments Health Maintenance 03/31/2024 Encounter Details Date Type Department Care Team (Late st Contact Info) Description 03/31/2024 Telephone Family Practice [facility] [address] [place] [address] Maria G Rendon DO [address] [place] [address] Health Maintenance Allergies Active Allergy Reactions Criticality Noted Date Comments Acetazolamide 05/22/2017 Percodan Psych complications 08/25/2003 Shakes really bad documented as of this encounter (statuses as of 03/31/2024) Medications CHILDRENS ASPIRIN 81 MG OR CHEW 1 TABLET DAILY 30 0 4 Active SPACE CHAMBER DEVIIndications: COPD exacerbation (HCC) use with inhaler 1 0 6 Active Albuterol Sulfate (2.5 MG/3ML) 0.083% Inhalation Nebulization Solution (Proventil)Indic ations:COPD, moderate (HCC) Inhale 1 Vial via nebulizer every 6 hours as needed for Wheezing. 300 mL 3 3 Active Ventolin HFA 108 (90 Base) MCG/ACT Inhalation Aerosol SolutionIndicati ons:COPD, moderate (HCC) Inhale 2 Puffs by mouth every 4 hours as needed for Wheezing. 18 g 1 4 Active Tiotropium [place] Monohydrate 18 MCG Inhalation Capsule (Spiriva HandiHaler)Indic ations:COPD, moderate (HCC) inhale contents of 1 capsule by mouth once daily 90 Capsule 1 4 Active Sennosides 8.6 MG Oral Tablet (Senokot) Take 2 Tablets by mouth in the morning. 60 Tablet 4 Active Polyethylene Glycol 3350 17 GM Oral Packet (Miralax) Take 1 Packet by mouth in the morning. 14 Each 4 Active Additional Information Patient not taking.Reported on 03/16/2024 oxyCODONE HCl 5 MG Oral Tablet (Oxy IR) Take 1 Tablet by mouth every 4 hours as needed for Pain, Severe (can take 1/2 tab, 2.5 mg for moderate pain, contination of pain therapy). 15 Tablet 4 Active Acetaminophen 325 MG Oral Tablet (Tylenol) Take 2 Tablets by mouth every 6 hours. 30 Tablet 4 Active DULoxetine HCl 60 MG Oral Capsule Delayed Release Particles (Cymbalta)Indica tions:Depression Take 1 Capsule by mouth in the morning. Do not cut, crush or chew. 90 Capsule 3 5 Active Simvastatin 20 MG Oral Tablet (Zocor)Indicatio ns:Mixed dyslipidemia Take 1 Tablet by mouth in the morning. In the morning.. 90 Tablet 3 5 Active Losartan Potassium 50 MG Oral Tablet (Cozaar)Indicati ons:HTN, goal below 140/90 Take 1 tablet by mouth in the morning (along with 25 mg tablet for total of 75 mg) 90 Tablet 1 5 Active Losartan Potassium 25 MG Oral Tablet (Cozaar)Indicati ons:HTN, goal below 140/90 Take 1 tablet by mouth in the morning (along with 50 mg tablet for total of 75 mg) 90 Tablet 1 5 Active documented as of this encounter (statuses as of 03/31/2024) Active Problems Problem Noted Date Diagnosed Date Chronic kidney disease with symptom management only, stage 3 (moderate) 03/16/2024 Pulmonary nodules 01/23/2024 Fall 01/19/2024 Hematoma of right thigh 01/19/2024 Overview (01/19/2024): Intramuscular, medial right thigh Chronic mesenteric ischemia 06/20/2022 COPD, group B, by GOLD 2017 classification 01/29 Overview: Per COPD GOLD Classification AAA (abdominal aortic aneurysm) 12/06/2021 Overview (12/06/2021): 3.5 cm AAA noted on aortic duplex 11/14/[address] nodules on CT 11/10/2021 Critical limb ischemia with history of revascularization of same extremity 05/15/2021 Hypertensive kidney disease with stage 3b chronic kidney disease 12/28/2019 Overview: Per CKD protocol HTN, goal below 140/90 11/29/2017 History of DVT of lower extremity 06/12/2017 Dyslipidemia, goal LDL below 70 02/01/2009 Overview (02/01/2009): Per Lipid Taxonomy. PAD (peripheral artery disease) 05/09/2004 Tobacco use disorder 08/25/2003 documented as of this encounter (statuses as of 03/31/2024) Resolved Problems Problem Noted Date Diagnosed Date Resolved Date Closed fracture of multiple pubic rami, right, initial encounter 01/19/2024 03/16/2024 Overview (01/19/2024): Superior and inferior Sacral fracture, closed 01/19/202402/19 Overview (01/19/2024): Right sacral ala fracture Chronic kidney disease, stage 3b 06/28/2020 03/16/2024 Overview: Per CKD protocol Hypertensive kidney disease with chronic kidney disease stage III 08/05/2018 12/31/2019 Overview: Per CKD protocol Hypertension with renal disease 06/02/2018 08/06/2018 Kidney disease, chronic, sta ge III (GFR 30-59 ml/min) 11/29/2014 08/28/2018 Overview: Per CKD protocol #1 COPD, moderate 09/25/2010 02/01/2022 Overview: Per COPD GOLD Classification Gastroparesis 07/04/2009 11/21/2016 Benign neoplasm of colon 07/28/200705/2017 Overview (07/31/2007): adenomatous and hyperplastic/repeat colonoscopy in 1 yr ADVANCE DIRECTIVE INFORMATION 08/22/2004 12/23/2023 Overview (08/22/2004): refused info Mixed dyslipidemia 08/22/2004 Overview (02/01/2009): Per Lipid Taxonomy. COPD, severity to be determined 05/01/2004 03/30/2011 PURE HYPERCHOLESTEROLEM 02/15/200406/18 GENERAL OSTEOARTHROSIS 08/25/200306/13 GENERALIZED ANXIETY DIS 08/25/200305/2016 Claudication 08/25/2003 11/29/2017 documented as of this encounter (statuses as of 03/31/2024) Immunizations Name Administration Dates Next Due COVID-19 mRNA, LNP-s, No Pre serve, 2-Dose Series ([employer]) 04/27/2020,04/06/2020 Pneumococcal Conjugate Vacc, 13 Valent (Prevnar) 05/22/2016 Pneumococcal Polysaccharide PPV23 (Pneumovax) 06/18/2008 Season Influenza, Quad, PF, Adjuvanted, 65+ Yrs, IM (FLUAD) 11/02/2019 Seasonal Influenza Vac., MDV , IM, 0.5 mL (Fluzone) 11/03/2013,11/10/2012,11/05/2011,07/2011,01/02/2010,11/25/2008,01/07/20 08 Seasonal Influenza, PF, 6 M & above, IM , (FluLaval or Fluzone) 11/21/2017,12/07/2016 Seasonal Influenza, Quadriva lent Hd (Fluzone Hd) 12/24/2022,10/31/2021,11/11/2020 11/11/2021 Seasonal Influenza, Quadriva lent, No Preserve, IM 12/03/2015,11/23/2014 Seasonal Influenza, Trivalen t, Adjuvanted, 65+ YRS, PF, (Fluad) 12/09/2018 TDAP (age 10 and older)(Boostrix) 12/08/2023 documented as of this encounter Social History Tobacco Use Types Packs/Day Years Used Date Smoking Tobacco: Former Cigarettes 0.5 60 Smokeless Tobacco: Never Comments:07/03/2023 1/2 pack per day, declined pamphlet Alcohol Use Standard Drinks/Week Comments No 0 (1 standard drink = 0.6 oz pur e alcohol) PHQ-2 Answer Date Recorded PHQ Adult Total Score 2 02/26/2024 Hunger Vital Sign Answer Date Recorded Within the past 12 months, y ou worried that your food would run out before you got the money to buy more. Never true 02/25/19 25 Within the past 12 months, t he food you bought just didn't last and you didn't have money to get more. Never true 02/26/2024 Childcare Answer Date Recorded Do you feel overwhelmed with taking care of a child, family member or friend? No 02/26/2024 Does your family need help f inding childcare? (Household - for ages 0-17 years) Not on file 02/26/2024 Clothing Answer Date Recorded Have you been unable to get clothing when it was really needed? No 02/26/2024 Is your family able to get c lothes or diapers when needed? (Household - for ages 0-17 years) Not on file 02/26/2024 Personal Safety Answer Date Recorded Do you feel unsafe or have concerns for your saf ety? No 02/26/2024 Do you have concerns for you r family's safety? (Household - for ages 0-17 years) Not on file 02/26/2024 Utilities Answer Date Recorded Do you have trouble paying y our heating, water, or electric bill? No 02/26/2024 Is your family able to pay t he heat, water, or electric bill? (Household - for ages 0-17 years) Not on file 02/26/2024 Does your family have access to good internet? (Household - for ages 0-17 years) Not on file 02/26/2024 Employment Status Answer Date Recorded Are you unemployed or without regular income? No 02/26/2024 Does the household have a re gular source of income? (Household - for ages 0-17 years) Not on file 02/26/2024 Social Connections Answer Date Recorded How often do you feel lonely or isolated from those around you? Sometimes 02/26/2024 Financial Resource Strain Answer Date R ecorded Do you have any trouble payi ng for your medications, or do you think you might in the future? No 02/26/2024 Does your family have troubl e paying for medicine? (Household - for ages 0-17 years) Not on file 02/26/2024 Transportation Needs Answer Date Record ed Do you have trouble getting a ride to medical visits or work? (Adult - for ages 18 years and over) Not on file 02/26/2024 Does your family have a hard time getting a ride to doctors visits? (Household - for ages 0-17 years) Not on file 02/26/2024 Has lack of transportation k ept you from medical appointments, meetings, work, or from getting things needed for daily living? Check all that apply. No 02/26/2024 Do you (or your family) have trouble finding or paying for a ride (transportation)? (Household - for ages 0-17 years) Not on file 02/26/2024 Housing Stability Answer Date Recorded Do you currently live in a s helter or have no steady place to sleep at night? No 02/26/2024 Do you think you are at risk of becoming homeless? (Adult - for ages 18 years and over) Not on file 02/26/2024 Does your family worry about paying for your home or becoming homeless? (Household - for ages 0-17 years) Not on file 0 02/26/2024 Are you homeless or worried that you might be in the future? No 02/26/2024 Are you (or your family) cammy eless or worried that you might be in the future? (Household - for ages 0-17 years) Not on file Food Insecurity Answer Date Recorded Do you need food for this week? No 02/26/2024 Are you able to get enough f ood for your family? (Household - for ages 0-17 years) Not on file 02/26/2024 Does your family need food t his week? (Household - for ages 0-17 years) Not on file 02/26/2024 Do you always have enough fo od for your family? (Household - for ages 0-17 years) Not on file 02/26/2024 Food Insecurity Answer Date Recorded Within the past 12 months, y ou worried that your food would run out before you got the money to buy more. Never true 02/25/19 25 Within the past 12 months, t he food you bought just didn't last and you didn't have money to get more. Never true 02/26/2024 Do you need food for this week? No 02/26/2024 Comments No Sex and Gender Information Value Date Recorded Sex Assigned at Female 06/13/2018 9:08 AM EDT Legal Sex Female 6:16 AM EST Gender Identity Female 06/13/2018 9:08 AM EDT Sexual Orientation Straight 06/13/2018 9: 08 AM EDT documented as of this encounter Functional Status * Are you deaf or do you have serious difficulty hearing? Answer Date of Assessment Author No 01/19/2024 1:46 AM Flako Dee RN * Are you blind or do you have serious difficulty seeing, even when wearing glasses? Answer Date of Assessment Author No 01/19/2024 1:46 AM Flako Dee RN * Do you have serious difficulty walking or climbing stairs? (5 years old or older) Answer Date of Assessment Author No 01/19/2024 1:46 AM Flako Dee RN * Do you have difficulty dressing or bathing? (5 years old or older) Answer Date of Assessment Author No 01/19/2024 1:46 AM Flako Dee RN * Because of a physical, mental, or emotional condition, do you have difficulty doing errands alone such as visiting a doctors office or shopping? (15 years old or older) Answer Date of Assessment Author No 01/19/2024 1:46 AM Flako Dee RN documented as of this encounter Mental Status * Because of a physical, mental, or emotional condition, do you have serious difficulty concentrating, remembering, or making decisions? (5 years old or older) Answer Entry Date Author No 01/19/2024 1:46 AM EST Flako Iglesias RN documented in this encounter Miscellaneous Notes * Telephone Encounter - Luba Caruso LPN - 03/31/2024 11:12 AM EST Care Gaps Comprehensive Care Outreach Last Office/Telemedicine Visit: 03/16/2024 (in office), Visit date not found (telemedicine) Next Office Visit: 06/19/2024 Hemoglobin AIC Results: No results found for: "HEMOGLOBIN A1C" BP Readings from Last 1 Encounters: 03/16/24 110/60 Reviewed Health Maintenance below: Health Maintenance Topic Date Due Zoster Vaccines (1 of 2) Never done Adult Wellness Visit 08/27/2017 Pneumococcal Vaccine: 50+ Years (3 of 3 - PCV20 or PCV21) 05/22/2021 DXA Scan 05/24/2021 Influenza Vaccine (FLU shot) (1) 10/20/2023 COVID-19 Vaccine (3 - 2023- season) 2023 Albumin/Creatinine Ratio 05/22/2024 Dexa scheduled Urine ordered Awv declined not getting out right now due to recent fxs Care Gap Outreach Action Taken: Spoke to patient documented in this encounter Plan of Treatment Upcoming Encounters Date Type Department Care Team (Late st Contact Info) Description 06/19/2024 8:40 AM EDT Office Visit Family Practice [facility] [address] [place] [address] Maria G Rendon, [address] [facility] [place] [address] 08/17/2024 8:00 AM EDT Office Visit Pulmonary Medicine, [facility] [address] [facility] [place] [address] Humphrey Cormier MD [address] [place] [address] 09/28/2024 11:00 AM EDT Imaging Radiology [facility] [address] [facility] [place] [id number] Scheduled Orders Name Type Priority Associated Diagnoses Orde r Schedule ALBUMIN / CREATININE RATIO, URINE Lab Routine Hypertension, unspecified type Expected: 06/18/2024 (Approximate), Expires: 03/31/2025 Scheduled Procedures Name Priority Associated Diagnoses Date/Ti me COLONOSCOPY FLEXIBLE PROXIMA L DIAGNOSTIC Recall Special screening for malignant neoplasms, colon Health Maintenance Due Date Last Done Comments Zoster Vaccines (1 of 2) 1994 Adult Wellness Visit 08/27/2017 08/27/2016 Pneumococcal Vaccine: 50+ Years (3 of 3 - PCV20 or PCV21) 05/22/2021 05/22/2016, 06/18/2008 DXA Scan 05/24/2021 05/24/2014, 08/18, 08/28/2010 COVID-19 Vaccine ( season) 2023 04/27/2020, 04/06/2020 Influenza Vaccine (FLU shot) (#1) 2023 12/24/2022, 10/31/2021, 11/11/2020, Additional history exists Albumin/Creatinine Ratio 05/22/2024 05/23/2023, 05/2017 GFR 07/27/2024 01/27/2024, 09/2023, 01/25/2024, Additional history exists CKD PHOS USE SMARTSET 59535 09/04/202408/18, 05/31/2022, 04/09/2019, Additional history exists CKD HGB USE SMARTSET 51802 01/26/202501/26, 01/26/2024, 01/25/2024, Additional history exists Depression Screening 02/25/2025 02/26/2024 O2 ASSESSMENT COMPLETED IN PAST YEAR FOR COPD 03/16/2025 03/16/2024 DTap/Tdap Vaccines (2 - Td or Tdap) 12/07/2033 12/08/2023, 05/09/2004 Alpha-1 Antitrypsin Completed 05/23/2023 HPV (Gardasil) Vaccine Aged Out No lo nger eligible based on patient's age to complete this topic Hepatitis B Vaccine Aged Out No longe r eligible based on patient's age to complete this topic MENINGOCOCCAL (MENACTRA/MENVEO) Aged Out No longer eligible based on patient's age to complete this topic documented as of this encounter Medical Devices Implanted Type Area Poultry Process Worker Device Identifier Shelf Expiration Date Model / Serial / Lot Patch Xenosure [id number] - [id number] - [id number] Implanted:Qty : 1 on 05/12/2021 by David Boss MD at [place] [facility] [place] Right: Femoral Artery [employer] [id number] 11/15/2026 [id number] / [id number] / [id number] Graft Stent Viab [id number] - [id number] - [id number] Implanted:Qty : 1 on 05/12/2021 by David Boss MD at [place] [facility] [place] Right: Iliac [employer] [id number] 01/06/2024 [id number] / [id number] / [id number] documented as of this encounter Visit Diagnoses Diagnosis Hypertension, unspecified type- Primary documented in this encounter Advance Directives * Full Code (Latest Code Status on File) Date Activated Date Inactivated Comments 01/19/2024 12:36 AM 01/28/2024 5:49 PM This order reflects the patients wishes and were consensually agreed upon. Question Answer Comments Discussion of Advance Direct robert occurred with: Not Discussed due to patient's condition * Full Code Date Activated Date Inactivated Comments 05/12/2021 6:34 PM 05/15/2021 5:22 PM This order r eflects the patients wishes and were consensually agreed upon. Care Teams Automobile Or Truck Rental Dispatcher Relationship Specialty Start Date End Date Maria G Rendon DO [address] [place] [address] PCP - General Family Medicine 11/03/20 documented as of this encounter
--- OUTSIDE RECORDS SUMMARY | 2024-04-10 03:11 | External Medical Summary ---
Author Name Unknown Address Unknown Organization K09[facility] [place] [address] Laboratory Report Ordering Provider Test Date Status 04/09/2024 15:10:19 Final Observation Date Value Abnormality Reference (Units ) Status BUN 04/09/2024 15:10:19 25 Above high normal 6-20 (mg/dL) Final Creatinine 04/09/2024 15:10:19 1.4 Above high normal 0.5-1.0 (mg/dL) Final Glomerular filtration rate/1.73 sq M.predicted [Volume Rate/Area] in Serum, Plasma or Blood by Creatinine-based formula (CKD-EPI) 04/09/2024 15:10:19 38 Below low normal >=60 (mL/min) Final eGFR is calculated based on the CKD-EPI 2020 equation. Sodium 04/09/2024 15:10:19 129 Below low normal 135 -146 (mmol/L) Final Potassium 04/09/2024 15:10:19 4.5 3.5-5.1 (m mol/L) Final Cl 04/09/2024 15:10:19 89 Below low normal 98- 107 (mmol/L) Final CO2 04/09/2024 15:10:19 22 22-32 (mmo l/L) Final Anion gap 04/09/2024 15:10:19 18 Above high normal 7- 15 (mmol/L) Final Glucose 04/09/2024 15:10:19 126 Above high normal 70 -120 (mg/dL) Final Calcium 04/09/2024 15:10:19 9.5 8.4-10.2 ( mg/dL) Final Performing Location [facility] [place] [address]
--- OUTSIDE RECORDS SUMMARY | 2024-04-10 03:11 | External Medical Summary | Summary of Care ---
Author Name Unknown Organization [facility] Address [address] [place] [address] Phone [phone] Care Team Providers Care Cephalometric Technician Name Role Phone Maria G Rendon Yolanda FERRER Primary Care Provider Reason for Visit * Reason Comments NEW PATIENT Patient here for a b rown patch on her left santizo she says has been there many years but is getting bigger. Spot is rough. Mcguffey around the edges, no itch. * Evaluate & Treat - Unlimited Visits (Within 10 days (routine)) - Authorized Specialty Diagnoses / Procedures Referred By Krystal rivera Referred To Contact Dermatology Diagnoses Skin lesion Janis Barron MD [address] [place] [address] Phone: tel: fax: Referral ID Status Reason Start Date Expiration Date Visits Requested Visits Authorized [id number] Authorized Specialty Services Required 03/16/[id number] Encounter Details Date Type Department Care Team (Late st Contact Info) Description 03/27/2024 2:30 PM EST Office Visit Dermatology State Natacha Calabrese [address] [place] [address] Carlos Roberson MD [address] [place] [phone] Skin tumor* Allergies Active Allergy Reactions Criticality Noted Date Comments Acetazolamide 05/22/2017 Percodan Psych complications 08/25/2003 Shakes really bad documented as of this encounter (statuses as of 03/27/2024) Medications CHILDRENS ASPIRIN 81 MG OR CHEW [...] Wheezing. 18 g 1 4 Active Tiotropium [place] Monohydrate 18 MCG Inhalation Capsule (Spiriva HandiHaler)Indic [...] as of this encounter (statuses as of 03/27/2024) Active Problems Problem Noted Date Diagnosed Date [...] as of this encounter (statuses as of 03/27/2024) Resolved Problems Problem Noted Date Diagnosed Date [...] Overview (08/22/2004): refused info Mixed dyslipidemia 08/22/2004 9 Overview (02/01/2009): Per Lipid Taxonomy. COPD, severity to be determined 05/01/2004 03/30/2011 PURE HYPERCHOLESTEROLEM 02/15/200406/18 GENERAL OSTEOARTHROSIS 08/25/200306/13 GENERALIZED ANXIETY DIS 08/25/2003 1005/2016 Claudication 08/25/2003 11/29/2017 documented as of this encounter (statuses as of 03/27/2024) Immunizations Name Administration Dates Next Due COVID-19 mRNA, LNP-s, No Pre serve, 2-Dose Series (Aggios) 04/27/2020,04/06/2020 Pneumococcal Conjugate Vacc, 13 Valent (Prevnar) 05/22/2016 Pneumococcal Polysaccharide PPV23 (Pneumovax) 06/18/2008 Season Influenza, Quad, PF, Adjuvanted, 65+ Yrs, IM (FLUAD) 11/02/2019 Seasonal Influenza Vac., MDV , IM, 0.5 mL (Fluzone) 11/03/2013,11/10/2012,11/05/2011,0107/2011,01/02/2010,11/25/2008,01/07/20 08 Seasonal Influenza, PF, 6 M & [...] 02/26/2024 Does the household have a re lar source of income? (Household - for ages [...] Entry Date Author No 01/19/2024 1:46 AM Flako Dee RN documented in this encounter Progress Notes * Carlos Roberson MD - 03/27/2024 2:43 PM EST HPI: Aleida Sierra is a 78 year old female. Referred by Janis Barron MD for Skin lesion. NEW PATIENT (Patient here for a brown patch on her left santizo she says has been there many years butis getting bigger. Spot is rough. Mcguffey around the edges, no itch.) Brown area for 10 years or more, starting to get bigger, now also rough. Not sore or painful or itchy. No prior skin problems. Half sister with skin ca - uncertain type. Other skin problems today: none PHM: Patient Active Problem List Diagnosis Tobacco use disorder PAD (peripheral artery disease) (HCC) Dyslipidemia, goal LDL below 70 History of DVT of lower extremity HTN, goal below 140/90 Hypertensive kidney disease with stage 3b chronic kidney disease Critical limb ischemia with history of revascularization of same extremity (HCC) Multiple lung nodules on CT AAA (abdominal aortic aneurysm) (HCC) COPD, group B, by GOLD 2017 classification (HCC) Chronic mesenteric ischemia (HCC) Fall Hematoma of right thigh Pulmonary nodules Chronic kidney disease with symptom management only, stage 3 (moderate) (HCC) PSH: Past Surgical History: Procedure Laterality Date ANESTH, CS HYSTERECTOMY 1979 PHYLLIS Germain BREAST BIOPSY Right benign COLONOSCOPY W/ LESION REMOVAL, SNARE 07/28/07 repeat in one yr adenomatous and hyperplastic COLONOSCOPY, DIAGNOSTIC (RECTUM) 09/28/08 done incomplete colonoscopy to sigmoid colon, prep good, multiple diverticula, and significant looping virtual colonoscopy recommended ENDART COMMON FEMORAL Right 05/12/2021 COMMON FEMORAL ENDARTERECTOMY performed by David Boss MD at [place] [facility] ILIAC ART REVASC W/ STENT,ADDL IPSILATERAL Bilateral 05/12/2021 ILIAC ART REVASC W/ STENT,ADDL IPSILATERAL performed by David Boss MD at [place] [facility] LAPAROSCOPY; CHOLECYSTECTOMY 95-96 Cholecystectomy, Laproscopic PHYLLIS Germain SYNTH BYPASS, FEM-FEM 12/08/03 Fem fem bypass at [facility] by Dr. Elaine TOTAL ABD HYSTERECTOMY W/WO REMOVAL OF TUBE(S) Complete Hysterectomy in early 30s Current Outpatient Medications Medication Sig Dispense Refill CHILDRENS ASPIRIN 81 MG OR CHEW 1 TABLET DAILY 30 0 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 1 0 Albuterol Sulfate (2.5 MG/3ML) 0.083% Inhalation Nebulization Solution (Proventil) Inhale 1 Vial via nebulizer every 6 hours as needed for Wheezing. 300 mL 3 Ventolin HFA 108 (90 Base) MCG/ACT Inhalation Aerosol Solution Inhale 2 Puffs by mouth every 4 hours as needed for Wheezing. 18 g 1 Tiotropium [place] Monohydrate 18 MCG Inhalation Capsule (Spiriva HandiHaler) inhale contents of 1 capsule by mouth once daily 90 Capsule 1 Sennosides 8.6 MG Oral Tablet (Senokot) Take 2 Tablets by mouth in the morning. 60 Tablet 0 Polyethylene Glycol 3350 17 GM Oral Packet (Miralax) Take 1 Packet by mouth in the morning. (Patient not taking: Reported on 03/16/2024) 14 Each 0 oxyCODONE HCl 5 MG Oral Tablet (Oxy IR) Take 1 Tablet by mouth every 4 hours as needed for Pain, Severe (can take 1/2 tab, 2.5 mg for moderate pain, contination of pain therapy). 15 Tablet 0 Acetaminophen 325 MG Oral Tablet (Tylenol) Take 2 Tablets by mouth every 6 hours. 30 Tablet 0 DULoxetine HCl 60 MG Oral Capsule Delayed Release Particles (Cymbalta) Take 1 Capsule by mouth in the morning. Do not cut, crush or chew. 90 Capsule 3 Simvastatin 20 MG Oral Tablet (Zocor) Take 1 Tablet by mouth in the morning. In the morning.. 90 Tablet 3 Losartan Potassium 50 MG Oral Tablet (Cozaar) Take 1 tablet by mouth in the morning (along with 25 mg tablet for total of 75 mg) 90 Tablet 1 Losartan Potassium 25 MG Oral Tablet (Cozaar) Take 1 tablet by mouth in the morning (along with 50 mg tablet for total of 75 mg) 90 Tablet 1 No current facility-administered medications for this visit. Review of patient's allergies indicates: Allergen Reactions Diamox [Acetazolamide] Percodan Psych complications Shakes really bad Physical Exam: Gen: Healthy, alert, and no distress. Lt santizo exam reveals 3cm thin rough brown plaque Assessment: / Plan: 1. Likely seborrheic keratosis But biopsy to rule out melanocytic Shave biopsy of the lesion noted above to establish and confirm diagnosis. The procedure, risks, benefits, alternatives and expected outcomes were discussed with the patient and consent was obtained.Time out called. Patient identified, procedure verified, site identified and verified. Patient and staff present in agreement. Area prepped with alcohol and anesthetized with 0.5% lidocaine with epinephrine at 1:200,000 concentration. Shave biopsy of lesion performed. 20% AlCl and bandaging applied. Specimen sent to pathology. Patient instructed in routine post-op care. Ok to leave a message/use MyG? Call preferred Carlos Roberson MD Dermatology Images/Photos No images attached to the encounter. documented in this encounter Nursing Notes * Angelica Lombardi LPN - 03/27/2024 2:18 PM EST Chief Complaint Patient presents with NEW PATIENT Patient here for a brown patch on her left santizo she says has been there many years but is getting bigger. Spot is rough. Mcguffey around the edges, no itch. documented in this encounter Plan of Treatment Upcoming Encounters Date Type Department Care Team (Late st Contact Info) Description 06/19/2024 8:40 AM EDT Office Visit [facility] [address] Elias [address] [place] [address] [facility] [place] [address] Maria G Rendon DO 200 [facility] [place] [address] 08/17/2024 8:00 AM EDT Office Visit Pulmonary Medicine, [facility] [address] [facility] [place] [address] Humphrey Cormier MD [address] [place] [address] Pending Results Name Type Priority Associated Diagnoses Date /Time SURGICAL PATHOLOGY Pathology Routine Skin tumor 03/27/2024 2:48 PM EST Scheduled Procedures Name Priority Associated Diagnoses Date/Ti [...] Additional history exists CKD PHOS USE SMARTSET 76318 09/04/202408/18, 05/31/2022, 04/09/2019, Additional history exists CKD HGB USE SMARTSET 25628 01/26/202501/26, 01/26/2024, 01/25/2024, Additional history exists Depression [...] this encounter Medical Devices Implanted Type Area Security Dispatcher Device Identifier Shelf Expiration Date Model / Serial / Lot Patch Xenosure [id number] - [id number] - [id number] Implanted:Qty : 1 on 05/12/2021 by David Boss MD at [place] [facility] [place] Right: Femoral Artery [employer] [id number] 11/15/2026 E0.8P8 / [id number] / [id number] Graft Stent Viab [id number] - [id number] - [id number] Implanted:Qty : 1 on 05/12/2021 by David Boss MD at [place] [facility] [place] Right: Iliac [employer] [id number] 01/06/2024 [id number] / [id number] / [id number] documented as of this encounter Visit Diagnoses Diagnosis Skin tumor- Primary Neoplasm of uncertain behavior of skin documented in this encounter Advance Directives * [...] and were consensually agreed upon. Care Teams Cephalometric Technician Relationship Specialty Start Date End Date Maria G Rendon DO [address] [place], [place] [address] PCP - General Family Medicine 11/03/20 documented as of this encounter
--- OUTSIDE RECORDS SUMMARY | 2024-04-10 03:11 | External Medical Summary | Summary of Care ---
Author Name Unknown Organization [facility] [address] [facility] [address] Phone [phone] Care Team Providers Care Molecular Biologist Name Role Phone Maria G Rendon DO Primary Care Provider Reason for Visit * Reason Onset Date Comments Fax 03/20/2024 Encounter Details Date Type Department Care Team (Late st Contact Info) Description 03/20/2024 Telephone Family Practice [facility] [address] [facility] [place] [address] Maria G Rendon DO [address] [facility] [place] [address] Fax Allergies Active Allergy Reactions Criticality Noted Date [...] Wheezing. 18 g 1 4 Active Tiotropium [place] Monohydrate 18 MCG Inhalation Capsule (Spiriva HandiHaler)Indic [...] mRNA, LNP-s, No Pre serve, 2-Dose Series (Fieldglass) 04/27/2020,04/06/2020 Pneumococcal Conjugate Vacc, 13 Valent (Prevnar) [...] encounter Miscellaneous Notes * Telephone Encounter - Yessy Dinh LPN - 03/27/2024 11:40 AM EST This was given to provider to sign on 03/24/24 * Telephone Encounter - Hayde Bland LPN - 03/25/2024 3:29 PM EST HH Concerns Rosa Maria-Intake, Calling from: [employer] Narrative: please sign and fax Plan of care from 02/23. Re faxed 03/25/24 Please fax new orders to [phone] * Telephone Encounter - Massiel Baker OSA - 03/20/2024 3:05 PM EST Pt last seen by Dr. Rendon on 12/10/23, have we seen this yet? * Telephone Encounter - Shirley Best OSA - 03/20/2024 2:22 PM EST Received a call asking if fax was received by office. Name/Company sending fax: [email or web address] What fax is pertaining to: Orders Date(s) they sent request: 03/20/24 Verified fax number they are sending to is correct (Y or N): Yes Callback Number for the clinic to call to verified if fax was received: [phone] documented in this encounter Plan of Treatment Upcoming Encounters Date Type Department Care Team (Late st Contact Info) Description 06/19/2024 8:40 AM EDT Office Visit Family Practice [facility] [address] [place] [address] Maria G Rendon, DO [address] [place] [address] 08/17/2024 8:00 AM EDT Office Visit Pulmonary Medicine, [facility] [address] [place] [address] Humphrey Cormier MD [address] [facility] [place] [id number] Scheduled Procedures Name Priority Associated Diagnoses Date/Ti [...] Additional history exists CKD PHOS USE SMARTSET 42169 09/04/202408/18, 05/31/2022, 04/09/2019, Additional history exists CKD HGB USE SMARTSET 71449 01/26/202501/26, 01/26/2024, 01/25/2024, Additional history exists Depression [...] this encounter Medical Devices Implanted Type Area High Frequency Mill Operator Device Identifier Shelf Expiration Date Model / Serial / Lot Patch Xenosure [id number] - [id number] - [id number] Implanted:Qty : 1 on 05/12/2021 by David Boss MD at [place] [facility] [place] Right: Femoral Artery [employer] [id number] 11/15/2026 E0.8P8 / [id number] / [id number] Graft Stent Viab [id number] - [id number] - [id number] Implanted:Qty : 1 on 05/12/2021 by David Boss MD at [place] [facility] [place] Right: Iliac [employer] [id number] 01/06/2024 [id number] / [id number] / [id number] documented as of this encounter Advance Directives * Full Code [...] and were consensually agreed upon. Care Teams Molecular Biologist Relationship Specialty Start Date End Date Maria G Rendon DO [address] [place] [address] PCP - General Family Medicine 11/03/20 documented as of this encounter
--- OUTSIDE RECORDS SUMMARY | 2024-04-10 03:11 | External Medical Summary | Summary of Care ---
Author Name Unknown Organization [facility] Address [address] [place] [address] Phone [phone] Care Team Providers Care Cfo Controller Name Role Phone Maria G Rendon Primary Care Provider Encounter Details Date Type Department Care Team (Late st Contact Info) Description 03/19/2024 11:30 AM EST Scheduled Telephone Care Coordination and Integration [address] [place] [address] Kimberly Jasmine [facility] Optical Manufacturing Technician [address] [place], [place] [id number] Allergies Active Allergy Reactions Criticality Noted Date Comments Acetazolamide 05/22/2017 Percodan Psych complications 08/25/2003 Shakes really bad documented as of this encounter (statuses as of 03/19/2024) Medications CHILDRENS ASPIRIN 81 MG OR CHEW [...] Wheezing. 18 g 1 4 Active Tiotropium [place] Monohydrate 18 MCG Inhalation Capsule (Spiriva HandiHaler)Indic [...] as of this encounter (statuses as of 03/19/2024) Active Problems Problem Noted Date Diagnosed Date [...] as of this encounter (statuses as of 03/19/2024) Resolved Problems Problem Noted Date Diagnosed Date [...] as of this encounter (statuses as of 03/19/2024) Immunizations Name Administration Dates Next Due COVID-19 mRNA, LNP-s, No Pre serve, 2-Dose Series (365net) 04/27/2020,04/06/2020 Pneumococcal Conjugate Vacc, 13 Valent (Prevnar) [...] ages 0-17 years) Not on file 02/26/2024 Comments No Sex and Gender Information [...] documented in this encounter Progress Notes * Kimberly Jasmine, [facility] Optical Manufacturing Technician - 03/19/2024 2:13 PM EST Telemedicine visit: No [facility] Optical Manufacturing Technician (DONNIE) documentation: CHW dolores call per THELMA Moore CM No answer, left VM requesting call back to CM Electronically signed by Kimberly Jasmine [facility] Optical Manufacturing Technician at 03/19/2024 2:14 PM EST documented in this encounter Plan of Treatment Upcoming Encounters Date Type Department Care Team (Late st Contact Info) Description 03/24/2024 1:40 PM EST Home Visit Care Coordination and Integration [address] [place] [address] Kimberly Jasmine [facility] Optical Manufacturing Technician [address] [place] [address] 03/27/2024 2:30 PM EST Office Visit Dermatology [facility] [address] [place] [address] Carlos Roberson MD [address] [place] [address] 06/19/2024 8:40 AM EDT Office Visit Family Practice [facility] [address] [facility] [place] [address] Maria G Rendon, [address] [facility] [place] [address] 08/17/2024 8:00 AM EDT Office Visit Pulmonary Medicine, [facility] 132 [facility] [place] [address] Humphrey Cormier MD [address] [facility] [place] [id number] Scheduled Procedures Name Priority Associated Diagnoses Date/Ti [...] Additional history exists CKD PHOS USE SMARTSET 18159 09/04/202408/18, 05/31/2022, 04/09/2019, Additional history exists CKD HGB USE SMARTSET 60599 01/26/202501/26, 01/26/2024, 01/25/2024, Additional history exists Depression [...] this encounter Medical Devices Implanted Type Area Brake Shoe Rebuilder Device Identifier Shelf Expiration Date Model / Serial / Lot Patch Xenosure [id number] - [id number] - [id number] Implanted:Qty : 1 on 05/12/2021 by David Boss MD at [place] [facility] [place] Right: Femoral Artery [employer] [id number] 11/15/2026 E0.8P8 / [id number] / [id number] Graft Stent Viab [id number] - [id number] - [id number] Implanted:Qty : 1 on 05/12/2021 by David Boss MD at [place] [facility] [place] Right: Iliac [employer] [id number] 01/06/2024 [id number] / [id number] / [id number] documented as of this encounter Advance Directives [...] and were consensually agreed upon. Care Teams Cfo Controller Relationship Specialty Start Date End Date Maria G Rendon DO [address] [place] [address] PCP - General Family Medicine 11/03/20 documented as of this encounter
--- OUTSIDE RECORDS SUMMARY | 2024-04-10 03:11 | External Medical Summary | Summary of Care ---
Author Name Unknown Organization [facility] Address [address] [place] [address] Phone [phone] Care Team Providers Care Pan Greaser Name Role Phone Maria G Rendon Primary Care Provider Encounter Details Date Type Department Care Team (Late st Contact Info) Description 04/02/2024 9:30 AM EST Scheduled Telephone Care Coordination and Integration [address] [place] [address] Kimberly Jasmine [facility] Beam Dyer Operator [address] [place], [place] [phone] Allergies Active Allergy Reactions Criticality Noted Date Comments Acetazolamide 05/22/2017 Percodan Psych complications 08/25/2003 Shakes really bad documented as of this encounter (statuses as of 04/02/2024) Medications CHILDRENS ASPIRIN 81 MG OR CHEW [...] Wheezing. 18 g 1 4 Active Tiotropium [place] Monohydrate 18 MCG Inhalation Capsule (Spiriva HandiHaler)Indic [...] as of this encounter (statuses as of 04/02/2024) Active Problems Problem Noted Date Diagnosed Date [...] as of this encounter (statuses as of 04/02/2024) Resolved Problems Problem Noted Date Diagnosed Date [...] as of this encounter (statuses as of 04/02/2024) Immunizations Name Administration Dates Next Due COVID-19 mRNA, LNP-s, No Pre serve, 2-Dose Series (In Hand Guides) 04/27/2020,04/06/2020 Pneumococcal Conjugate Vacc, 13 Valent (Prevnar) [...] Flako Iglesias RN documented in this encounter Progress Notes * Kimberly Jasmine [facility] Beam Dyer Operator - 04/02/2024 9:29 AM EST Bhaskar Carreno! Can you please call patient weekly x 4. Patient had a fall in November, and another fall in December. She is home alone, granddaughter helps her in the evening. She lost her daughter recently and has been dealing with depression. Please ask her about pain, mood, any falls/ increased weakness. [facility] health is coming in for Pt/OT. Thank you! Telemedicine visit: No [facility] Beam Dyer Operator (DONNIE) documentation: CHW dolores call per THELMA Moore CM Spoke to patient Has not been leaving home recently "only to the doctors" States she needs more strength in legs---PT/OT is done, has been continuing daily exercises Does not feel comfortable ambulating without walker Denies falls Denies pain States mood has improved since starting Cymbalta Granddaughter no longer staying overnight, but comes multiple times thru week Granddaughter assists w/ laundry, bathing Denies red flags Aware to reach out to CM with needs/concerns documented in this encounter Plan of Treatment Upcoming Encounters Date Type Department Care Team (Late st Contact Info) Description 06/19/2024 8:40 AM EDT Office Visit Family Practice [facility] [address] [facility] [place], [place] [address] Maria G Rendon, [address] [facility] [place] [address] 08/17/2024 8:00 AM EDT Office Visit Pulmonary Medicine, [facility] [address] [facility] [place] [address] Humphrey Cormier MD [address] [place] [address] 09/28/2024 11:00 AM EDT Imaging Radiology [facility] [address] [place] [address] Scheduled Procedures Name Priority Associated Diagnoses Date/Ti [...] Additional history exists CKD PHOS USE SMARTSET 99742 09/04/202408/18, 05/31/2022, 04/09/2019, Additional history exists CKD HGB USE SMARTSET 79513 01/26/202501/26, 01/26/2024, 01/25/2024, Additional history exists Depression [...] this encounter Medical Devices Implanted Type Area Health Clinician Device Identifier Shelf Expiration Date Model / Serial / Lot Patch Xenosure [id number] - [id number] - [id number] Implanted:Qty : 1 on 05/12/2021 [place] [facility] [place]: Femoral Artery [employer] [id number] 11/15/2026 E0.8P8 / [id number] / [id number] Graft Stent Viab [id number] - [id number] - [id number] Implanted:Qty : 1 on 05/12/2021 by David Boss MD [place] [facility] [place]: Iliac [employer] [id number] 01/06/2024 [id number] / [id number] / [id number] documented as of this encounter Advance Directives [...] and were consensually agreed upon. Care Teams Pan Greaser Relationship Specialty Start Date End Date Maria G Rendon DO [address] [place] [place], [place] [address] PCP - General Family Medicine 11/03/20 documented as of this encounter
--- OUTSIDE RECORDS SUMMARY | 2024-04-10 03:11 | External Medical Summary | Summary of Care ---
Author Name Unknown Organization [facility] Address [address] [place] [address] Phone [phone] Care Team Providers Care Crystal Evaluator Name Role Phone Maria G Rendon Primary Care Provider Reason for Visit * Reason Onset Date Comments [facility]: Engagement 03/11/2024 Encounter Details Date Type Department Care Team (Late st Contact Info) Description 03/11/2024 Telephone [facility] [address], [place] [id number] Jessica Rubi, JORGE ALBERTO [address] [place] [address] [facility]: Engagement Allergies Active Allergy Reactions Criticality Noted Date Comments Acetazolamide 05/22/2017 Percodan Psych complications 08/25/2003 Shakes really bad documented as of this encounter (statuses as of 03/11/2024) Medications CHILDRENS ASPIRIN 81 MG OR CHEW 1 TABLET DAILY 30 0 4 Active SPACE CHAMBER DEVIIndications: COPD exacerbation (HCC) use with inhaler 1 0 6 Active Additional Information Patient not taking.Reported on 09/09/2023 Albuterol Sulfate (2.5 MG/3ML) 0.083% Inhalation Nebulization Solution (Proventil)Indic ations:COPD, moderate (HCC) Inhale 1 Vial via nebulizer every 6 hours as needed for Wheezing. 300 mL 3 3 Active Additional Information Patient not taking.Reported on 01/19/2024 Ventolin HFA 108 (90 Base) MCG/ACT Inhalation Aerosol SolutionIndicati ons:COPD, moderate (HCC) Inhale 2 Puffs by mouth every 4 hours as needed for Wheezing. 18 g 1 4 Active Simvastatin 20 MG Oral Tablet (Zocor)Indicatio ns:Mixed dyslipidemia Take 1 Tablet by mouth in the morning. In the morning.. 90 Tablet 1 4 Active Losartan Potassium 50 MG Oral Tablet (Cozaar)Indicati ons:Hypertensive kidney disease with stage 3b chronic kidney disease (HCC) Take 1 Tablet by mouth in the morning. 30 Tablet 5 4 Active Additional Information Patient taking differently: 75 mgOral Daily(AM), Reported on 02/26/2024 Tiotropium [place] Monohydrate 18 MCG Inhalation Capsule (Spiriva HandiHaler)Indic ations:COPD, moderate (HCC) inhale contents of 1 capsule by mouth once daily 90 Capsule 1 4 Active LiquaCel Oral Liquid Take 30 mL by mouth in the morning and 30 mL before bedtime. 1800 mL 4 01/18/20 25 Active Carisoprodol 350 MG Oral Tablet (Soma) Take 0.5 Tablets by mouth every 6 hours as needed for Muscle spasms (continuation of pain therapy). 15 Tablet 4 Active Sennosides 8.6 MG Oral Tablet (Senokot) Take 2 Tablets by mouth in the morning. 60 Tablet 4 Active Polyethylene Glycol 3350 17 GM Oral Packet (Miralax) Take 1 Packet by mouth in the morning. 14 Each 4 Active Docusate Sodium 100 MG Oral Capsule (Colace) Take 1 Capsule by mouth in the morning and 1 Capsule before bedtime. 10 Capsule 4 Active oxyCODONE HCl 5 MG Oral Tablet (Oxy [...] or chew. 90 Capsule 3 5 Active documented as of this encounter (statuses as of 03/11/2024) Active Problems Problem Noted Date Diagnosed Date Pulmonary nodules 01/23/2024 Fall 01/19/2024 Closed fracture of multiple pubic rami, right, initial encounter 01/19/2024 Overview (01/19/2024): Superior and inferior Sacral fracture 01/19/2024 Overview (01/19/2024): Right sacral ala fracture Hematoma of right thigh 01/19/2024 Overview (01/19/2024): Intramuscular, medial right thigh Chronic mesenteric ischemia 06/20/2022 COPD, group B, by GOLD 2017 classification 01/29 Overview: Per COPD GOLD Classification AAA (abdominal aortic aneurysm) 12/06/2021 Overview (12/06/2021): 3.5 cm AAA noted on aortic duplex 11/14/[address] 11/10/2021 Critical limb ischemia with history of revascularization of same extremity 05/15/2021 Chronic kidney disease, stage 3b 06/28/2020 Overview: Per CKD protocol Hypertensive kidney disease with stage 3b chronic kidney disease 12/28/2019 Overview: Per CKD protocol HTN, goal below 140/90 11/29/2017 History of DVT of lower extremity 06/12/2017 Dyslipidemia, goal LDL below 70 02/01/2009 Overview (02/01/2009): Per Lipid Taxonomy. PAD (peripheral artery disease) 05/09/2004 Tobacco use disorder 08/25/2003 documented as of this encounter (statuses as of 03/11/2024) Resolved Problems Problem Noted Date Diagnosed Date Resolved Date Hypertensive kidney disease with chronic kidney disease [...] as of this encounter (statuses as of 03/11/2024) Immunizations Name Administration Dates Next Due COVID-19 mRNA, LNP-s, No Pre serve, 2-Dose Series (BrightNest) 04/27/2020,04/06/2020 Pneumococcal Conjugate Vacc, 13 Valent (Prevnar) [...] Flako Dee RN documented in this encounter Miscellaneous Notes * Telephone Encounter - Jessica Rubi OSA - 03/11/2024 8:23 AM EST [place] out today, called and moved appt to 03/13, lmom documented in this encounter Plan of Treatment Upcoming Encounters Date Type Department Care Team (Late st Contact Info) Description 03/13/2024 2:30 PM EST Home [facility] [address] [place] [address] Kimberly Jasmine, Community Health Rubber Factory Worker [address] [place] [address] 03/16/2024 3:20 PM EST Office Visit [facility] [address] [facility] [place] [address] Janis Barron MD [address] [facility] [place] [address] 06/19/2024 8:40 AM EDT Office Visit [facility] [address] [facility] [place] [address] Maria G Rendon DO [address] [facility] [place] [address] 08/17/2024 8:00 AM EDT Office Visit Pulmonary Medicine, [facility] [address] [facility] [place] [address] Humphrey Cormier MD [address] [place] [id number] Scheduled Procedures Name Priority Associated Diagnoses Date/Ti me COLONOSCOPY FLEXIBLE PROXIMA L DIAGNOSTIC Recall Special screening for malignant neoplasms, colon Health Maintenance Due Date Last Done Comments Zoster Vaccines (1 of 2) 1994 Adult Wellness Visit 08/27/2017 08/27/2016 Pneumococcal Vaccine: 50+ Years (3 of 3 - PCV20 or PCV21) 05/22/2021 05/22/2016, 06/18/2008 DXA Scan 05/24/2021 05/24/2014, 08/18, 08/28/2010 COVID-19 Vaccine (3 - season) 2023 04/27/2020, 04/06/2020 Influenza Vaccine (FLU shot) (#1) 2023 12/24/2022, 10/31/2021, 11/11/2020, Additional history exists Albumin/Creatinine Ratio 05/22/2024 05/23/2023, 05/2017 GFR 07/27/2024 01/27/2024, 09/2023, 01/25/2024, Additional history exists CKD PHOS USE SMARTSET 47312 09/04/202408/18, 05/31/2022, 04/09/2019, Additional history exists CKD HGB USE SMARTSET 26726 01/26/202501/26, 01/26/2024, 01/25/2024, Additional history exists O2 ASSESSMENT COMPLETED IN PAST YEAR FOR COPD 01/27/2025 01/28/2024 Depression Screening 02/25/2025 02/26/2024 DTap/Tdap Vaccines (2 - Td or Tdap) [...] this encounter Medical Devices Implanted Type Area Operations And Maintenance Technican Device Identifier Shelf Expiration Date Model / Serial / Lot Patch Xenosure [id number] - [id number] - [id number] Implanted:Qty : 1 on 05/12/2021 by David Boss MD at [facility] Right: Femoral [facility] [id number] 11/15/2026 E0.8P8 / [id number] / [id number] Graft Stent Viab [id number] - [id number] - [id number] Implanted:Qty : 1 on 05/12/2021 by David Boss MD at OR [facility] Right: Iliac [employer] [id number] 01/06/2024 [id number] / [id number] / [id number] documented as of this encounter Advance Directives [...] and were consensually agreed upon. Care Teams Crystal Evaluator Relationship Specialty Start Date End Date Maria G Rendon DO [address] [place] [address] PCP - General Family Medicine 11/03/20 documented as of this encounter
--- OUTSIDE RECORDS SUMMARY | 2024-04-10 03:11 | External Medical Summary | Summary of Care ---
Author Name Unknown Organization [facility] Address [address] [place] [address] Phone [phone] Care Team Providers Care Boiler Shop Supervisor Name Role Phone Maria G Rendon Primary Care Provider Reason for Visit * Reason Onset Date Comments [facility]: Maintenance 03/13/2024 Encounter Details Date Type Department Care Team (Late st Contact Info) Description 03/13/2024 Telephone [facility] [address] [place], [place] [phone] Nory Meng OSA [address] [place] [address] [facility]: Maintenance Allergies Active Allergy Reactions Criticality Noted Date Comments Acetazolamide 05/22/2017 Percodan Psych complications 08/25/2003 Shakes really bad documented as of this encounter (statuses as of 03/13/2024) Medications CHILDRENS ASPIRIN 81 MG OR CHEW [...] 75 mgOral Daily(AM), Reported on 02/26/2024 Tiotropium [place] Monohydrate 18 MCG Inhalation Capsule (Spiriva HandiHaler)Indic [...] as of this encounter (statuses as of 03/13/2024) Active Problems Problem Noted Date Diagnosed Date [...] as of this encounter (statuses as of 03/13/2024) Resolved Problems Problem Noted Date Diagnosed Date [...] as of this encounter (statuses as of 03/13/2024) Immunizations Name Administration Dates Next Due COVID-19 mRNA, LNP-s, No Pre serve, 2-Dose Series ([employer] 04/27/2020,04/06/2020 Pneumococcal Conjugate Vacc, 13 Valent (Prevnar) [...] encounter Miscellaneous Notes * Telephone Encounter - Nory Meng OSA - 03/13/2024 9:49 AM EST Request from [place] to call pt and rs visit today 03/13. Called pts numbers listed in chart. No answer. LMOM to let pt know visit is being rs to / at 140 pm documented in this encounter Plan of Treatment Upcoming Encounters Date Type Department Care Team (Late st Contact Info) Description 03/16/2024 3:20 PM EST Office Visit [facility] [address] [facility] [place] [address] Janis Barron MD [address] [facility] [place] [address] 03/24/2024 1:40 PM EST Home Visit [facility] [address] [place] [address] Kimberly Jasmine [facility] Senior Asset Manager [address] [place] [address] 06/19/2024 8:40 AM EDT Office Visit [facility] [address] [facility] [place] [address] Maria G Rendon DO [address] [facility] [place] [address] 08/17/2024 8:00 AM EDT Office Visit Pulmonary Medicine, [facility] [address] [facility] [place] [phone] Humphrey Cormier MD [address] [place] [phone] Scheduled Procedures Name Priority Associated Diagnoses Date/Ti [...] Additional history exists CKD PHOS USE SMARTSET 86607 09/04/202408/18, 05/31/2022, 04/09/2019, Additional history exists CKD HGB USE SMARTSET 38675 01/26/202501/26, 01/26/2024, 01/25/2024, Additional history exists O2 [...] this encounter Medical Devices Implanted Type Area Wharf Tender Device Identifier Shelf Expiration Date Model / Serial / Lot Patch Xenosure [id number] - [id number] - [id number] Implanted:Qty : 1 on 05/12/2021 by David Boss MD at OR [facility] Right: Femoral Artery [employer] [id number] 11/15/2026 E0.8P8 / [id number] / [id number] Graft Stent Viab [id number] - [id number] - [id number] Implanted:Qty : 1 on 05/12/2021 by David Boss MD at OR [facility] Right: Iliac [employer] [id number] 01/06/2024 [id number] / [id number] / [id number] documented as of this encounter Advance Directives [...] and were consensually agreed upon. Care Teams Boiler Shop Supervisor Relationship Specialty Start Date End Date Maria G Rendon DO [address] [place] [address] PCP - General Family Medicine 11/03/20 documented as of this encounter
--- OUTSIDE RECORDS SUMMARY | 2024-04-10 03:11 | External Medical Summary | Summary of Care ---
Author Name Unknown Organization [facility] Address [address] [facility] [place] [address] Phone [phone] Care Team Providers Care Clay Plant Treater Name Role Phone Haseeb Rendon DO Primary Care Provider Reason for Visit * Reason Onset Date Comments Medication Refill 02/24/2024 Encounter Details Date Type Department Care Team (Late st Contact Info) Description 02/24/[address] [facility] [address] [place] [address] Haseeb Rendon DO [address] [place] [address] Depression* Allergies Active Allergy Reactions Criticality Noted Date Comments Acetazolamide 05/22/2017 Percodan Psych complications 08/25/2003 Shakes really bad documented as of this encounter (statuses as of 02/26/2024) Medications CHILDRENS ASPIRIN 81 MG OR CHEW [...] 75 mgOral Daily(AM), Reported on 02/26/2024 Tiotropium [place] Monohydrate 18 MCG Inhalation Capsule (Spiriva HandiHaler)Indic [...] as of this encounter (statuses as of 02/26/2024) Active Problems Problem Noted Date Diagnosed Date [...] as of this encounter (statuses as of 02/26/2024) Resolved Problems Problem Noted Date Diagnosed Date [...] as of this encounter (statuses as of 02/26/2024) Immunizations Name Administration Dates Next Due COVID-19 mRNA, LNP-s, No Pre serve, 2-Dose Series (Pfizer) 04/27/2020,04/06/2020 Pneumococcal Conjugate Vacc, 13 Valent (Prevnar) 05/22/2016 Pneumococcal Polysaccharide PPV23 (Pneumovax) 06/18/2008 Season Influenza, Quad, PF, Adjuvanted, 65+ Yrs, IM (FLUAD) 11/02/2019 Seasonal Influenza Vac., MDV , IM, 0.5 mL (Fluzone) 11/03/2013,11/10/2012,11/05/2011,0 07/2011,01/02/2010,11/25/2008,01/07/20 08 Seasonal Influenza, PF, 6 M & above, IM , (FluLaval or Fluzone) 11/21/2017,12/07/2016 Seasonal Influenza, Quadriva lent Hd (Fluzone Hd) 12/24/2022,10/31/2021,11/11/2020 11/11/2021 Seasonal Influenza, Quadriva lent, No Preserve, IM 12/03/2015,11/23/2014 Seasonal Influenza, Trivalen t, Adjuvanted, 65+ YRS, PF, (Fluad) 12/09/2018 TD, Preservative Free 05/09/2004 TDAP (age 10 and older)(Boostrix) 12/08/2023 documented as of this encounter Social History Tobacco Use Types Packs/Day Years Used Date Smoking Tobacco: Every Day Cigarettes 0.5 60 Smokeless Tobacco: Never Comments:07/03/2023 1/2 pack per day, declined pamphlet Alcohol Use Standard Drinks/Week Comments No 0 (1 standard drink = 0.6 oz pur e alcohol) PHQ-2 Answer Date Recorded PHQ-2 Score 0 12/23/2017 Hunger Vital Sign Answer Date Recorded Within [...] encounter Miscellaneous Notes * Telephone Encounter - James Hopper DO - 02/26/2024 1:54 PM ESTSigned Prescriptions: Disp Refills DULoxetine HCl 60 MG Oral Capsule Delayed *90 Cap*3 Sig: Take 1 Capsule by mouth in the morning. Do not cut, crush or chew.Authorizing Provider: HASEEB RENDON * Addendum Note - Haseeb Rendon DO - 02/26/2024 1:54 PM ESTAddended by: HASEEB RENDON on: 02/26/2024 01:54 PM Modules accepted: Orders * Addendum Note - Taylor Slaughter RN - 02/26/2024 1:49 PM ESTAddended by: TAYLOR SLAUGHTER on: 02/26/2024 01:49 PM Modules accepted: Orders * Telephone Encounter - Taylor Slaughter RN - 02/26/2024 1:48 PM EST On phone with patient, requesting 90 day supply. Updated script. * Addendum Note - Hero Gan LPN - 02/26/2024 1:40 PM ESTAddended by: HERO GAN on: 02/26/2024 01:40 PM Modules accepted: Orders * Telephone Encounter - Hero Gan LPN - 02/26/2024 1:38 PM EST [facility] discharge documents scanned into chart. Shows she was taking Cymbalta 60 mg daily. * Telephone Encounter - Arlen Loera PHARM Tech - 02/26/2024 12:09 PM EST Pt calling to check on status of rx. Pt said she just took her last tab this morning. Pt does not think she can go without it. Thanks, Arlen Loera Fire Prevention Forester [facility] 02/26/2024,12:09 PM * Telephone Encounter - Taylor Slaughter RN - 02/25/2024 8:50 AM EST LM with medical records * Telephone Encounter - Hero Gan LPN - 02/24/2024 5:43 PM EST Taylor, did you get a discharge summary from [facility] for this patient? Anticipated date of d/c was 02/23/24. * Telephone Encounter - Charles Trujillo PHARM Tech - 02/24/2024 8:27 AM EST Pt EC called in requesting a refill for Cymbalta that was prescribed when they were at [facility]. No record of Cymbalta on med list. Please advise. Thank you, Charles Trujillo Fire Prevention Forester I [facility] (formerly Telepharm[facility]) 02/24/2024, 8:29 AM documented in this encounter Plan of Treatment Upcoming Encounters Date Type Department Care Team (Late st Contact Info) Description 03/10/2024 3:00 PM EST Office Visit [facility] [address] [place] [address] Haseeb Rendon, DO [address] [place] [address] 06/19/2024 8:40 AM EDT Office Visit [facility] [address] [place] [address] Haseeb Rendon, DO [address] [place] [address] 08/17/2024 8:00 AM EDT Office Visit Pulmonary Medicine, [facility] [address] [facility] [place] [address] Humphrey Cormier MD [address] [place] [address] Scheduled Procedures Name Priority Associated Diagnoses Date/Ti me COLONOSCOPY FLEXIBLE PROXIMA L DIAGNOSTIC Recall Special screening for malignant neoplasms, colon Health Maintenance Due Date Last Done Comments Zoster Vaccines (1 of 2) 1994 Adult Wellness Visit 08/27/2017 08/27/2016 Depression Screening 04/09/2020 04/09/2019 Pneumococcal Vaccine: 50+ Years (3 of 3 - PCV20 or PCV21) 05/22/2021 05/22/2016, 06/18/2008 DXA Scan 05/24/2021 05/24/2014, 08/18, 08/28/2010 DISCUSS TOBACCO CESSATION (REFER TO SMARTSET #3291) 10/11/2022 10/11/2021 COVID-19 Vaccine ( - season) 2023 04/27/2020, 04/06/2020 Influenza Vaccine (FLU shot) (#1) 2023 12/24/2022, 10/31/2021, 11/11/2020, Additional history exists Albumin/Creatinine Ratio 05/22/2024 05/23/2023, 10/05/2017 GFR 07/27/2024 01/27/2024, 1209/2023, 01/25/2024, Additional history exists CKD PHOS USE SMARTSET 89263 09/04/202408/18, 05/31/2022, 04/09/2019, Additional history exists CKD HGB USE SMARTSET 24358 01/26/202501/26, 01/26/2024, 01/25/2024, Additional history exists O2 ASSESSMENT COMPLETED IN PAST YEAR FOR COPD 01/27/2025 01/28/2024 DTap/Tdap Vaccines (2 - Td or Tdap) 12/07/2033 12/08/2023, 05/09/2004 Alpha-1 Antitrypsin Completed 05/23/2023 Lung Cancer Screening Completed 06/27/2023 , 11/21/2022, 06/13/2022, Additional history exists HPV (Gardasil) Vaccine Aged Out No lo nger eligible based on patient's age to complete this topic Hepatitis B Vaccine Aged Out No longe r eligible based on patient's age to complete this topic MENINGOCOCCAL (MENACTRA/MENVEO) Aged Out No longer eligible based on patient's age to complete this topic documented as of this encounter Medical Devices Implanted Type Area Script Writer Device Identifier Shelf Expiration Date Model / Serial / Lot Patch Xenosure [id number] - [id number] - [id number] Implanted:Qty : 1 on 05/12/2021 by David Boss MD at OR [facility] Right: Femoral Artery [employer] [id number] 11/15/2026 E0.8P8 / [id number] / [id number] Graft Stent Viab [id number] - [id number] - [id number] Implanted:Qty : 1 on 05/12/2021 by David Boss MD at OR [facility] Right: Iliac [employer] [id number] 01/06/2024 [id number] / [id number] / [id number] documented as of this encounter Visit Diagnoses Diagnosis Depression- Primary Depressive disorder, not elsewhere classified documented in this encounter Advance Directives * [...] and were consensually agreed upon. Care Teams Clay Plant Treater Relationship Specialty Start Date End Date Haseeb Rendon DO [address] [place] [address] PCP - General Family Medicine 11/03/20 documented as of this encounter
--- OUTSIDE RECORDS SUMMARY | 2024-04-10 03:11 | External Medical Summary | Summary of Care ---
Author Name Unknown Organization [facility] Address [address] [facility] [place] [address] Phone [phone] Care Team Providers Care Cascara Bark Cutter Name Role Phone Maria G Rendon Primary Care Provider Encounter Details Date Type Department Care Team (Late st Contact Info) Description 03/09/2024 Population Health External Data Unspecified Department Allergies Active Allergy Reactions Criticality Noted Date Comments Acetazolamide 05/22/2017 Percodan Psych complications 08/25/2003 Shakes really bad documented as of this encounter (statuses as of 03/09/2024) Medications CHILDRENS ASPIRIN 81 MG OR CHEW [...] 75 mgOral Daily(AM), Reported on 02/26/2024 Tiotropium [place] Monohydrate 18 MCG Inhalation Capsule (Spiriva HandiHaler)Indic [...] as of this encounter (statuses as of 03/09/2024) Active Problems Problem Noted Date Diagnosed Date [...] as of this encounter (statuses as of 03/09/2024) Resolved Problems Problem Noted Date Diagnosed Date [...] as of this encounter (statuses as of 03/09/2024) Immunizations Name Administration Dates Next Due COVID-19 mRNA, LNP-s, No Pre serve, 2-Dose Series ([employer]illion) 04/27/2020,04/06/2020 Pneumococcal Conjugate Vacc, 13 Valent (Prevnar) [...] Flako Dee RN documented in this encounter Plan of Treatment Upcoming Encounters Date Type Department Care Team (Late st Contact Info) Description 03/10/2024 3:00 PM EST Office Visit Family Practice [facility] [place] [address] [place] [address] Maria G Rendon, [address] [place] [address] 03/11/2024 8:50 AM EST Home Visit [facility] [address] [place] [address] Kimberly Jasmine, Community Health Registered Clinical Dietitian [address] [place] [address] 06/19/2024 8:40 AM EDT Office Visit Family Practice [facility] [address] [facility] [place] [address] Maria G Rendon, 200 [facility] [place] [address] 08/17/2024 8:00 AM EDT Office Visit Pulmonary Medicine, [facility] [address] [facility] [place] [address] Humph[facility]ormier [facility] [address] [facility] [address] Scheduled Procedures Name Priority Associated Diagnoses Date/Ti [...] Additional history exists CKD PHOS USE SMARTSET 10658 09/04/202408/18, 05/31/2022, 04/09/2019, Additional history exists CKD HGB USE SMARTSET 91194 01/26/202501/26, 01/26/2024, 01/25/2024, Additional history exists O2 [...] this encounter Medical Devices Implanted Type Area Hide Stretcher Hand Device Identifier Shelf Expiration Date Model / Serial / Lot Patch Xenosure [id number] - [id number] - [id number] Implanted:Qty : 1 on 05/12/2021 [place] Boss [place] [facility] [place]: Femoral Artery [employer] [id number] 11/15/2026 E0.8P8 / [id number] / [id number] Graft Stent Viab [id number] - [id number] - [id number] Implanted:Qty : 1 on 05/12/2021 by [place] Boss MD [place] [facility] [place]: Iliac [employer] [id number] 01/06/2024 [id number] / [id number] / [id number] documented as of this encounter Advance Directives [...] and were consensually agreed upon. Care Teams Cascara Bark Cutter Relationship Specialty Start Date End Date Maria G Rendon DO [address] [place] [address] PCP - General Family Medicine 11/03/20 documented as of this encounter
--- OUTSIDE RECORDS SUMMARY | 2024-04-10 03:12 | External Medical Summary | Summary of Care ---
Author Name Unknown Organization [facility] Address [address] [facility] [address] Phone [phone] Care Team Providers Care Marine Electrician Apprentice Name Role Phone Maria G Rendon DO Primary Care Provider Reason for Visit * Reason Onset Date Comments Medication Refill 02/24/2024 Encounter Details Date Type Department Care Team (Late st Contact Info) Description 02/24/2024 Refill Family Practice [facility] [address] [facility] [place] [address] Maria G Rendon DO 200 [facility] [place] [address] Allergies Active Allergy Reactions Criticality Noted Date [...] 75 mgOral Daily(AM), Reported on 02/26/2024 Tiotropium [place] Monohydrate 18 MCG Inhalation Capsule (Spiriva [...] every 6 hours. 30 Tablet 4 Active documented as of this encounter (statuses [...] mRNA, LNP-s, No Pre serve, 2-Dose Series (W[employer]) 04/27/2020,04/06/2020 Pneumococcal Conjugate Vacc, 13 Valent (Prevnar) [...] 12/23/2017 Hunger Vital Sign Answer Date Recorded Worried About Running Out of Food in the Last Ye ar Never true 04/09/2019 Ran Out of Food in the Last Year Never true 04/09/2019 Personal Safety Answer Date Recorded Do you feel unsafe or have concerns for your saf ety? No 01/19/2024 Do you have concerns for you r family's safety? (Household - for ages 0-17 years) Not on file 01/19/2024 Utilities Answer Date Recorded Do you have trouble paying y our heating, water, or electric bill? No 01/19/2024 Is your family able to pay t he heat, water, or electric bill? (Household - for ages 0-17 years) Not on file 01/19/2024 Does your family have access to good internet? (Household - for ages 0-17 years) Not on file 01/19/2024 Transportation Needs Answer Date Record ed Do you have trouble getting a ride to medical visits or work? (Adult - for ages 18 years and over) Not on file 01/19/2024 Does your family have a hard time getting a ride to doctors visits? (Household - for ages 0-17 years) Not on file 01/19/2024 Has lack of transportation k ept you from medical appointments, meetings, work, or from getting things needed for daily living? Check all that apply. No 01/19/2024 Do you (or your family) have trouble finding or paying for a ride (transportation)? (Household - for ages 0-17 years) Not on file 01/19/2024 Housing Stability Answer Date Recorded Do you currently live in a s helter or have no steady place to sleep at night? (Adult - for ages 18 years and over) Not on file 01/19/2024 Do you think you are at risk of becoming homeless? (Adult - for ages 18 years and over) Not on file 01/19/2024 Does your family worry about paying for your home or becoming homeless? (Household - for ages 0-17 years) Not on file 1 03/21/2023 Are you homeless or worried that you might be in the future? No 01/19/2024 Are you (or your family) cammy eless or worried that you might be in the future? (Household - for ages 0-17 years) Not on file Food Insecurity Answer Date Recorded Do you need food for this week? No 01/19/2024 Are you able to get enough f ood for your family? (Household - for ages 0-17 years) Not on file 01/19/2024 Does your family need food t his week? (Household - for ages 0-17 years) Not on file 01/19/2024 Do you always have enough fo od for your family? (Household - for ages 0-17 years) Not on file 01/19/2024 Comments No Sex and Gender Information Value [...] of Assessment Author No 01/19/2024 1:46 AM EST [place] , [place], RN * Do you have difficulty dressing [...] documented in this encounter Miscellaneous Notes * Addendum Note - Saumya Gan LPN - 02/26/2024 1:40 PM ESTAddended by: SAUMYA GAN on: 02/26/2024 01:40 PM Modules accepted: Orders * Telephone Encounter - Saumya Gan LPN - 02/26/2024 1:38 PM EST [facility] discharge documents scanned into chart. Shows she was taking Cymbalta 60 mg daily. * Telephone Encounter - Arlen Loera PHARM Tech - 02/26/2024 12:09 PM EST Pt calling to check on status of rx. Pt said she just took her last tab this morning. Pt does not think she can go without it. Thanks, Arlen Loera Compensation And Benefits Administrator [facility] ([facility]) 02/26/2024,12:09 PM * Telephone Encounter - Marisabel Slaughter RN - 02/25/2024 8:50 AM EST LM with medical records * Telephone Encounter - Saumya Gan LPN - 02/24/2024 5:43 PM EST Marisabel, did you get a discharge summary from [facility] for this patient? Anticipated date of d/c was 02/23/24. * Telephone Encounter - Charles Trujillo PHARM Tech - 02/24/2024 8:27 AM EST Pt EC called in requesting a refill for Cymbalta that was prescribed when they were at [facility]. No record of Cymbalta on med list. Please advise. Thank you, Charles Trujillo Compensation And Benefits Administrator I [facility] Services (formerly Telepharmacy) 02/24/2024, 8:29 AM documented in this encounter Plan of Treatment Upcoming Encounters Date Type Department Care Team (Late st Contact Info) Description 03/10/2024 3:00 PM EST Office Visit [facility] [address] [place] [address] Maria G Rendon, [address] [place] [address] 06/19/2024 8:40 AM EDT Office Visit [facility] [address] [place] [address] Maria G Rendon DO [address] [place] [address] 08/17/2024 8:00 AM EDT Office Visit Pulmonary Medicine, [facility] [address] [facility] [place] [address] Humphrey Cormier MD [facility] [address] [facility] [place] [address] Scheduled Procedures Name Priority Associated Diagnoses Date/Ti [...] SMARTSET #3291) 10/11/2022 10/11/2021 COVID-19 Vaccine ( season) 2023 04/27/2020, 04/06/2020 Influenza Vaccine (FLU shot) (#1) 2023 12/24/2022, 10/31/2021, 11/11/2020, Additional history exists Albumin/Creatinine Ratio 05/22/2024 05/23/2023, 05/2017 GFR 07/27/2024 01/27/2024, 09/2023, 01/25/2024, Additional history exists CKD PHOS USE SMARTSET 86959 09/04/202408/18, 05/31/2022, 04/09/2019, Additional history exists CKD HGB USE SMARTSET 86878 01/26/202501/26, 01/26/2024, 01/25/2024, Additional history exists O2 [...] this encounter Medical Devices Implanted Type Area Biochemical Development Engineer Device Identifier Shelf Expiration Date Model / Serial / Lot Patch Xenosure [id number] - [id number] - [id number] Implanted:Qty : 1 on 05/12/2021 by David Boss MD at OR [facility] Right: Femoral Artery [employer] [id number] 11/15/2026 E0.8P8 / [id number] / [id number] Graft Stent Viab [id number] - [id number] - [id number] Implanted:Qty : 1 on 05/12/2021 by David Boss MD at OR [facility] Right: Iliac [employer] [id number] 01/06/2024 [id number] / [id number] / [id number] documented as of this encounter Advance Directives * Full Code (Latest Code Status on File) Date Activated Date Inactivated Comments 01/19/2024 12:36 AM 01/28/2024 5:49 PM This order reflects the patients wishes and were consensually agreed upon. Question Answer Comments Discussion of Advance Direct robetr occurred with: Not Discussed due to patient's condition * Full Code Date Activated Date Inactivated Comments 05/12/2021 6:34 PM 05/15/2021 5:22 PM This order r eflects the patients wishes and were consensually agreed upon. Care Teams Marine Electrician Apprentice Relationship Specialty Start Date End Date Maria G Rendon DO [address] [place] [address] PCP - General Family Medicine 11/03/20 documented as of this encounter
--- OUTSIDE RECORDS SUMMARY | 2024-04-10 03:12 | External Medical Summary | Summary of Care ---
Author Name Unknown Organization [facility] Address [address] [facility] [address] Phone [phone] Care Team Providers Care Network Support Technician Name Role Phone Maria G Rendon DO Primary Care Provider Reason for Visit * Reason Onset Date Comments Medication Refill 02/24/2024 Encounter Details Date Type Department Care Team (Late st Contact Info) Description 02/24/2024 Telephone Family Practice [facility] 200 [facility] [place] [address] Maria G Rendon DO 200 [facility] [place] [address] Medication Refill (/) Allergies Active Allergy Reactions Criticality Noted Date [...] the morning. 30 Tablet 5 4 Active Tiotropium [place] Monohydrate 18 MCG Inhalation Capsule (Spiriva HandiHaler)Indic [...] mRNA, LNP-s, No Pre serve, 2-Dose Series (Unruly) 04/27/2020,04/06/2020 Pneumococcal Conjugate Vacc, 13 Valent (Prevnar) [...] Assessment Author No 01/19/2024 1:46 AM Flako eDe RN * Do you have difficulty dressing or bathing? (5 years old or older) Answer Date of Assessment Author No 01/19/2024 1:46 AM EST Flako Iglesias RN * Because of a physical, mental, or emotional condition, do you have difficulty doing errands alone such as visiting a doctors office or shopping? (15 years old or older) Answer Date of Assessment Author No 01/19/2024 1:46 AM EST Flako Iglesias RN documented as of this encounter Mental Status * Because of a physical, mental, or emotional condition, do you have serious difficulty concentrating, remembering, or making decisions? (5 years old or older) Answer Entry Date Author No 01/19/2024 1:46 AM EST Flako Iglesias RN documented in this encounter Miscellaneous Notes * Telephone Encounter - Arlen Loera PHARM Tech - 02/26/2024 12:09 PM EST Pt calling to check on status of rx. Pt said she just took her last tab this morning. Pt does not think she can go without it. ThanksArlen Glass Installer Technician [facility] ([facility]) 02/26/2024,12:09 PM * Telephone Encounter - Marisabel Slaughter RN - 02/25/2024 8:50 AM EST LM with medical records * Telephone Encounter - Saumya Gan LPN - 02/24/2024 5:43 PM EST Marisabel, did you get a discharge summary from [facility] for this patient? Anticipated date of d/c was 02/23/24. * Telephone Encounter - Charles Trujillo cook ice cream - 02/24/2024 8:27 AM EST Pt EC called in requesting a refill for Cymbalta that was prescribed when they were at [facility]. No record of Cymbalta on med list. Please advise. Thank you, Charles Trujillo Glass Installer Technician I [facility] Services (formerly Telepharmacy) 02/24/2024, 8:29 AM documented in this encounter Plan of Treatment Upcoming Encounters Date Type Department Care Team (Late st Contact Info) Description 03/10/2024 3:00 PM EST Office Visit [facility] 200 [facility] [place] [address] Maria G Rendon, DO 200 [facility] [place] [address] 06/19/2024 8:40 AM EDT Office Visit [facility] [address] [place] [address] Maria G Rendon DO 200 [facility] [place] [address] 08/17/2024 8:00 AM EDT Office Visit Pulmonary Medicine, [facility] [address] [facility] [place] [id number] Humphrey Cormier MD [address] [place] [id number] Scheduled Procedures Name Priority Associated Diagnoses Date/Ti [...] TO SMARTSET #3291) 10/11/2022 10/11/2021 COVID-19 Vaccine (3 - season) 2023 04/27/2020, 04/06/2020 Influenza Vaccine (FLU shot) (#1) 2023 12/24/2022, 10/31/2021, 11/11/2020, Additional history exists Albumin/Creatinine Ratio 05/22/2024 05/23/2023, 05/2017 GFR 07/27/2024 01/27/2024, 09/2023, 01/25/2024, Additional history exists CKD PHOS USE SMARTSET 16731 09/04/202408/18, 05/31/2022, 04/09/2019, Additional history exists CKD HGB USE SMARTSET 30566 01/26/202501/26, 01/26/2024, 01/25/2024, Additional history exists O2 [...] this encounter Medical Devices Implanted Type Area Shrimp Peeler Device Identifier Shelf Expiration Date Model / Serial / Lot Patch Xenosure [id number] - [id number] - [id number] Implanted:Qty : 1 on 05/12/2021 by David Boss [place] [facility] [place] Right: Femoral Artery [facility] [employer] [id number] 11/15/2026 E0.8P8 / [id number] / [id number] Graft Stent Viab [id number] - [id number] - [id number] Implanted:Qty : 1 on 05/12/2021 by David Boss MD [place] [facility] [place]: [place] [id number] 01/06/2024 [id number] / [id number] / [id number] documented as of this encounter Advance Directives [...] and were consensually agreed upon. Care Teams Network Support Technician Relationship Specialty Start Date End Date Maria G Rendon DO [address] [place] [address] PCP - General Family Medicine 11/03/20 documented as of this encounter
--- OUTSIDE RECORDS SUMMARY | 2024-04-10 03:12 | External Medical Summary | Summary of Care ---
Author Name Unknown Organization [facility] Address [address] [facility] [address] Phone [phone] Care Team Providers Care Collection Advisor Name Role Phone Maria G Rendon DO Primary Care Provider Reason for Visit * Reason Onset Date Comments Medication Refill 02/24/2024 Encounter Details Date Type Department Care Team (Late st Contact Info) Description 02/24/2024 Telephone Family Practice [facility] 200 [facility] [place] [address] Maria G Rendon DO 200 [facility] [place] [address] Medication Refill (/) Allergies Active Allergy Reactions Criticality Noted Date Comments Acetazolamide 05/22/2017 Percodan Psych complications 08/25/2003 Shakes really bad documented as of this encounter (statuses as of 02/25/2024) Medications CHILDRENS ASPIRIN 81 MG OR CHEW [...] morning. 30 Tablet 5 4 Active Tiotropium [place] Monohydrate 18 MCG Inhalation Capsule (Spiriva HandiHaler)Indic [...] as of this encounter (statuses as of 02/25/2024) Active Problems Problem Noted Date Diagnosed Date [...] as of this encounter (statuses as of 02/25/2024) Resolved Problems Problem Noted Date Diagnosed Date [...] as of this encounter (statuses as of 02/25/2024) Immunizations Name Administration Dates Next Due COVID-19 mRNA, LNP-s, No Pre serve, 2-Dose Series (GradFly) 04/27/2020,04/06/2020 Pneumococcal Conjugate Vacc, 13 Valent (Prevnar) [...] encounter Miscellaneous Notes * Telephone Encounter - Marisabel Slauhgter RN - 02/25/2024 8:50 AM EST LM with medical records * Telephone Encounter - Saumya Gan LPN - 02/24/2024 5:43 PM EST Marisabel, did you get a discharge summary from [facility] for this patient? Anticipated date of d/c was 02/23/24. * Telephone Encounter - Charles Trujillo PHARM Tech - 02/24/2024 8:27 AM EST Pt EC called in requesting a refill for Cymbalta that was prescribed when they were at [facility]. No record of Cymbalta on med list. Please advise. Thank you, Charles Trujillo Painter Barrel I [facility] (formerly Telepharmacy) 02/24/2024, 8:29 AM documented in this encounter Plan of Treatment Upcoming Encounters Date Type Department Care Team (Late st Contact Info) Description 03/10/2024 3:00 PM EST [facility] [place] 200 [facility] [place] [address] Maria G Rendon, DO 200 [facility] [place] [address] 06/19/2024 8:40 AM EDT Office Visit Family Practice [facility] 200 [facility] [place], [place] [address] Maria G Rendon, DO 200 [facility] [place], [place] [address] 08/17/2024 8:00 AM EDT Office Visit Pulmonary Medicine, [facility] [address] [facility] [place] [address] Humphrey Cormier MD [address] [place] [address] Scheduled Procedures Name Priority Associated Diagnoses Date/Ti [...] Additional history exists CKD PHOS USE SMARTSET 36493 09/04/2024 07/1 09/2023, 05/31/2022, 04/09/2019, Additional history exists CKD HGB USE SMARTSET 72240 01/26/202501/26, 01/26/2024, 01/25/2024, Additional history exists O2 [...] this encounter Medical Devices Implanted Type Area Field Marketing Representative Device Identifier Shelf Expiration Date Model / Serial / Lot Patch Xenosure 0.3ejf6yf - [id number] - [id number] Implanted:Qty : 1 on 05/12/2021 [place] Boss [place] [facility]: Femoral Artery [employer] [id number] 11/15/2026 E0.8P8 / [id number] / [id number] Graft Stent Viab [id number] - [id number] - [id number] Implanted:Qty : 1 on 05/12/2021 by David Boss MD [place] [facility] Right: Iliac [employer] [id number] 01/06/2024 [id number] / [id number] / [id number] documented as of this encounter Advance Directives [...] and were consensually agreed upon. Care Teams Collection Advisor Relationship Specialty Start Date End Date Maria G Rendon DO [address] [place] [address] PCP - General Family Medicine 11/03/20 documented as of this encounter
--- OUTSIDE RECORDS SUMMARY | 2024-04-10 03:12 | External Medical Summary | Summary of Care ---
Author Name Unknown Organization [facility] Address [address] [facility] [address] Phone [phone] Care Team Providers Care Medication Coordinator Name Role Phone Maria G Rendon DO Primary Care Provider Reason for Visit * Reason Onset Date Comments Medication Refill 02/24/2024 Encounter Details Date Type Department Care Team (Late st Contact Info) Description 02/24/[address] [facility] 200 [facility] [place] [address] Maria G Rendon DO 200 [facility] [place] [address] Medication Refill (/) Allergies Active Allergy Reactions [...] morning. 30 Tablet 5 4 Active Tiotropium [place] Monohydrate 18 MCG Inhalation Capsule (Spiriva HandiHaler)Indic [...] mRNA, LNP-s, No Pre serve, 2-Dose Series (Zadspace) 04/27/2020,04/06/2020 Pneumococcal Conjugate Vacc, 13 Valent (Prevnar) [...] Miscellaneous Notes * Telephone Encounter - Marisabel Slaughter RN - 02/25/2024 8:50 AM EST LM with medical records * Telephone Encounter - Saumya Gan LPN - 02/24/2024 5:43 PM EST Marisabel, did you get a discharge summary from [facility] for this patient? Anticipated date of d/c was 02/23/24. * Telephone Encounter - Charles Trujillo PHARM Tech - 02/24/2024 8:27 AM EST Pt EC called in requesting a refill for Cymbalta that was prescribed when they were at [facility]. No record of Cymbalta on med list. Please advise. Thank you, Charles Trujillo Thermal Cutter Helper I [facility]ized Clinical Pharmacy Services (formerly Telepharmacy) 02/24/2024, 8:29 AM documented in this encounter Plan of Treatment Upcoming Encounters Date Type Department Care Team (Late st Contact Info) Description 03/10/2024 3:00 PM EST [facility] [place] [facility] [place] [address] Maria G Rendon, DO 200 [facility] [place] [address] 06/19/2024 8:40 AM EDT Office Visit Family Practice [facility] 200 [facility] [place], [place] [address] Maria G Rendon, DO 200 [facility] [place], [place] [address] 08/17/2024 8:00 AM EDT Office Visit Pulmonary Medicine, [facility] 132 [facility] [place] [address] Humphrey Cormier MD [address] [place] [address] Scheduled Procedures Name Priority Associated Diagnoses Date/Ti [...] Additional history exists CKD PHOS USE SMARTSET 07517 09/04/2024 07/1 09/2023, 05/31/2022, 04/09/2019, Additional history exists CKD HGB USE SMARTSET 69736 01/26/202501/26, 01/26/2024, 01/25/2024, Additional history exists O2 [...] this encounter Medical Devices Implanted Type Area Digital Account Supervisor Device Identifier Shelf Expiration Date Model / Serial / Lot Patch Xenosure [id number] - [id number] - [id number] Implanted:Qty : 1 on 05/12/2021 by David Boss MD at [place] [facility] Right: Femoral Artery [employer] [id number] 11/15/2026 E0.8P8 / [id number] / [id number] Graft Stent Viab [id number] - [id number] - [id number] Implanted:Qty : 1 on 05/12/2021 by David Boss MD at [place] [facility] Right: Iliac [employer] [id number] 01/06/2024 [id number] 2A / [id number] / [id number] documented as of this encounter Advance Directives [...] and were consensually agreed upon. Care Teams Medication Coordinator Relationship Specialty Start Date End Date Maria G Rendon DO [address] [place] [address] PCP - General Family Medicine 11/03/20 documented as of this encounter
--- OUTSIDE RECORDS SUMMARY | 2024-04-10 03:12 | External Medical Summary | Summary of Care ---
Author Name Unknown Organization [facility] Address [address] [address] Phone [phone] Care Team Providers Care Assembler Chassis Name Role Phone Maria G Rendon DO Primary Care Provider Reason for Visit * Reason Onset Date Comments Medication Refill 02/24/2024 Encounter Details Date Type Department Care Team (Late st Contact Info) Description 02/24/2024 Refill Family Practice [facility] [address] [facility] [place] [address] Maria G Rendon DO [address] [place] [address] Allergies Active Allergy Reactions Criticality Noted Date [...] 75 mgOral Daily(AM), Reported on 02/26/2024 Tiotropium Hugo Monohydrate 18 MCG Inhalation Capsule (Spiriva HandiHaler)Indic [...] mRNA, LNP-s, No Pre serve, 2-Dose Series ([employer] 04/27/2020,04/06/2020 Pneumococcal Conjugate Vacc, 13 Valent [...] Assessment Author No 01/19/2024 1:46 AM EST Bouton , Neve, RN * Do you have [...] Gan LPN - 02/26/2024 1:38 PM EST [place] discharge documents scanned into chart. Shows she was taking Cymbalta 60 mg daily. * Telephone Encounter - Arlen Loera PHARM Tech - 02/26/2024 12:09 PM EST Pt calling to check on status of rx. Pt said she just took her last tab this morning. Pt does not think she can go without it. Thanks, Arlen Loera Stockholder [facility] 02/26/2024,12:09 PM * Telephone Encounter - Marisabel Slaughter RN - 02/25/2024 8:50 AM EST LM with medical records * Telephone Encounter - Saumya Gan LPN - 02/24/2024 5:43 PM EST Marisabel, did you get a discharge summary from [facility] for this patient? Anticipated date of d/c was 02/23/24. * Telephone Encounter - Charles Trujillo PHARM Tech - 02/24/2024 8:27 AM EST Pt EC called in requesting a refill for Cymbalta that was prescribed when they were at [facility]. No record of Cymbalta on med list. Please advise. Thank you, Charles Trujillo Stockholder I [facility] ([facility]) 02/24/2024, 8:29 AM documented in this encounter Plan of Treatment Upcoming Encounters Date Type Department Care Team (Late st Contact Info) Description 03/10/2024 3:00 PM EST Office Visit [facility] [address] [place] [address] Maria G Rendon, [address] [place] [address] 06/19/2024 8:40 AM EDT Office Visit [facility] [address] [place] [address] Maria G Rendon DO [address] [place] [address] 08/17/2024 8:00 AM EDT Office Visit Pulmonary Medicine, [facility] [address] [facility] [place] [address] Humphrey Cormier MD [facility] [address] [facility] [place] [address] Scheduled Procedures Name Priority Associated Diagnoses Date/Ti [...] Additional history exists CKD PHOS USE SMARTSET 87230 09/04/202408/18, 05/31/2022, 04/09/2019, Additional history exists CKD HGB USE SMARTSET 67736 01/26/202501/26, 01/26/2024, 01/25/2024, Additional history exists O2 [...] this encounter Medical Devices Implanted Type Area Planting Machine Operator Device Identifier Shelf Expiration Date Model / Serial / Lot Patch Xenosure [id number] - [id number] - [id number] Implanted:Qty : 1 on 05/12/2021 by David Boss MD at OR [facility] [place] Right: Femoral Artery [employer] [id number] 11/15/2026 E0.8P8 / [id number] / [id number] Graft Stent Viab [id number] - [id number] - [id number] Implanted:Qty : 1 on 05/12/2021 by David Boss MD at OR [facility] [place] Right: Iliac [employer] [id number] 01/06/2024 [id number] / [id number] / [id number] documented as of this encounter Advance Directives [...] and were consensually agreed upon. Care Teams Assembler Chassis Relationship Specialty Start Date End Date Maria G Rendon DO [address] [place] [address] PCP - General Family Medicine 11/03/20 documented as of this encounter
--- OUTSIDE RECORDS SUMMARY | 2024-04-10 03:12 | External Medical Summary | Summary of Care ---
Author Name Unknown Organization [facility] Address [address] [address] Phone [phone] Care Team Providers Care Assignment Officer Name Role Phone Maria G Rendon DO Primary Care Provider Reason for Visit * Reason Onset Date Comments Medication Refill 02/24/2024 Encounter Details Date Type Department Care Team (Late st Contact Info) Description 02/24/2024 Refill Family Practice [facility] [address] [facility] [place] [address] Maria G Rendon DO [address] [place] [place] [address] Depression* Allergies Active Allergy Reactions Criticality Noted [...] 75 mgOral Daily(AM), Reported on 02/26/2024 Tiotropium [place] Monohydrate 18 MCG Inhalation Capsule (Spiriva HandiHaler)Indic [...] mRNA, LNP-s, No Pre serve, 2-Dose Series ([employer]) 04/27/2020,04/06/2020 Pneumococcal Conjugate Vacc, 13 Valent (Prevnar) [...] encounter Miscellaneous Notes * Addendum Note - Taylor Slaughter RN [...] Gan LPN - 02/26/2024 1:38 PM EST [place] discharge documents scanned into chart. Shows she was taking Cymbalta 60 mg daily. * Telephone Encounter - Arlen Loera PHARM Tech - 02/26/2024 12:09 PM EST Pt calling to check on status of rx. Pt said she just took her last tab this morning. Pt does not think she can go without it. Thanks, Arlen Loera Public Services Librarian [facility] 02/26/2024,12:09 PM * Telephone Encounter - Taylor Slaughter RN - 02/25/2024 8:50 AM EST LM with medical records * Telephone Encounter - Hero Gan LPN - 02/24/2024 5:43 PM EST Taylor, did you get a discharge summary from [facility] for this patient? Anticipated date of d/c was 02/23/24. * Telephone Encounter - Charles Trujillo PHARM Tech - 02/24/2024 8:27 AM EST Pt EC called in requesting a refill for Cymbalta that was prescribed when they were at [facility]. No record of Cymbalta on med list. Please advise. Thank you, Charles Trujillo Public Services Librarian I [facility]) 02/24/2024, 8:29 AM documented in this encounter Plan of Treatment Upcoming Encounters Date Type Department Care Team (Late st Contact Info) Description 03/10/2024 3:00 PM EST Office Visit [facility] [place] [address] [place] [address] Maria G Rendon, [address] [facility] [place] [address] 06/19/2024 8:40 AM EDT Office Visit Family Practice [facility] [address] [facility] [place] [address] Maria G Rendon, [address] [facility] [place] [address] 08/17/2024 8:00 AM EDT Office Visit Pulmonary Medicine, [facility] [address] [facility] [place] [address] Humphrey Cormier MD [address] [place] [address] Scheduled Procedures Name Priority Associated Diagnoses Date/Ti [...] Additional history exists CKD PHOS USE SMARTSET 62183 09/04/202408/18, 05/31/2022, 04/09/2019, Additional history exists CKD HGB USE SMARTSET 27522 01/26/202501/26, 01/26/2024, 01/25/2024, Additional history exists O2 [...] this encounter Medical Devices Implanted Type Area Patient Access Device Identifier Shelf Expiration Date Model / Serial / Lot Patch Xenosure [id number] - [id number] - [id number] Implanted:Qty : 1 on 05/12/2021 by David Boss [place] [facility] [place] [facility] [place]: Femoral Artery [employer] [id number] 11/15/2026 E0.8P8 / [id number] / [id number] Graft Stent Viab [id number] - [id number] - [id number] Implanted:Qty : 1 on 05/12/2021 by David Boss [place] [facility] [place] Right: Iliac [employer] [id number] 01/06/2024 [id number] / [id number] / [id number] documented as of this encounter Visit Diagnoses [...] and were consensually agreed upon. Care Teams Assignment Officer Relationship Specialty Start Date End Date Maria G Rendon DO [address] [place] [address] PCP - General Family Medicine 11/03/20 documented as of this encounter
--- OUTSIDE RECORDS SUMMARY | 2024-04-10 03:13 | External Medical Summary | Continuity Of Care Document ---
Author Name Unknown Address [address] [place] [address] Organization [place] [facility] () Care Team Providers Care Biometric Technician Name Role Phone DO Alonso Amy Primary Care Provider [phone] Allergies Allergy Reaction Start Date End Date Status NO KNOWN DRUG ALLERGIES 01/28/2024 I nactive DIAMOX SEQUELS Active PERCODAN Active Medications Medication Instructions Dosage Start Date End Date Status Order Date Drug Code Frequency Route of Admin Diagnosis Code Substitutions Allowed Tubersol 5 tub. unit/0.1 mL intradermal injection solution [Tuberculin PPD] 0.1 mL Intradermal 1 time For PPD Step 1 GIVE on Day 1 and read results Day 3 0.1 mL 01/29 Inactiv e 2023 22723 97526 0 1 time Intrad ermal False Tubersol 5 tub. unit/0.1 mL intradermal injection solution [Tuberculin PPD] 0.1mL Intradermal 1 time For PPD 2nd Step Give 2nd Step PPD Day 1 and Read results Day 3 (schedule 7 days after 1st READ) 0.1mL 02/07 Inactiv e 2023 70129 19694 0 1 time Intrad ermal False Oxycodone 5 mg tablet [generic] 5mg By Mouth Every 4 hours as needed for severe pain for pain rate 7-10. For right pubis fracture 5mg 01/27 Inactiv e 2023 30207 76289 1 Every 4 hours as needed By Mouth False OXYCODONE 5 MG TABLET [GENERIC]IM MEDIATE RELEASE 2.5mg By Mouth Every 4 hours as needed tablet po for moderate pain, pain rate 4-6 on pain scale 1-10. For pain 2.5mg 01/27 Inactiv e 2023 Every 4 hours as needed By Mouth False Oxycodone 5 mg tablet [generic] 01/27 Inactiv e 2023 26163 73904 1 Oxycodone 5 mg tablet [generic] 5mg By Mouth Every 4 hours as needed for severe pain for pain rate 7-10. For right pubis fracture 5mg 01/29 Inactiv e 2023 59311 76658 1 Every 4 hours as needed By Mouth False DISCONTINUE as of 01/28/2024: OXYCODONE 5 MG TABLET [GENERIC]IM MEDIATE RELEASE 01/27 Inactiv e 2023 OXYCODONE 5 MG TABLET [GENERIC]IM MEDIATE RELEASE 2.5mg By Mouth Every 4 hours as needed tablet po for moderate , rate 4-6 on scale 1-10. For right pubis fracture 2.5mg 2023 Active 2023 Every 4 hours as needed By Mouth False Carisoprodo l 350 mg tablet [generic] 175mg By Mouth Every 6 hours as needed For Muscle spasms 175mg 2023 Active 2023 08345 22212 1 Every 6 hours as needed By Mouth False Cephalexin 500 mg capsule [generic] 500mg By Mouth Every 8 hours For UTI 500mg 01/30 Inactiv e 2023 16789 74629 1 Every 8 hours By Mouth False Aspirin 81 mg chewable tablet [generic] 81 mg By Mouth Once daily For AAA 81 mg 2023 Active 2023 10187 57135 6 Once daily By Mouth False Colace 100 mg capsule 100mg By Mouth Twice daily For constipation 100mg 2023 Active 2023 26137 34952 1 Twice daily By Mouth False Enoxaparin 300 mg/3 mL subcutaneou s solution [generic] 20mg Subcutaneous Once daily For anticoag. 20mg 02/06 Inactiv e 2023 99478 80555 1 Once daily Subcut aneous False Losartan 50 mg tablet [generic] 50 By Mouth Once daily For HTN 50 02/16 Inactiv e 2023 23764 70828 9 Once daily By Mouth False Miralax 17 gram/dose oral powder 17 gram By Mouth Once daily For contispation 17 gram 02/17 Inactiv e 2023 97790 62911 0 Once daily By Mouth False Senna 8.6 mg tablet 2 tabs By Mouth Once daily For constipation 2 tabs 02/17 Inactiv e 2023 05293 96225 1 Once daily By Mouth False Simvastatin 20 mg tablet [generic] 20 mg By Mouth Once daily For Hyperlipidemi a 20 mg 2023 Active 2023 81897 63028 0 Once daily By Mouth False Spiriva with HandiHaler 18 mcg and inhalation capsules 1 capsule Inhalation Once daily For COPD 1 capsule 2023 Active 2023 51174 52398 1 Once daily Inhala tion False Ventolin HFA 90 mcg/actuati on aerosol inhaler 2 puff Inhalation Every 4 hours as needed For COPD 2 puff 2023 Active 2023 62599 52803 0 Every 4 hours as needed Inhala tion False ProSource No Carb 15 gram-60 kcal/30 mL oral liquid 30ml By Mouth Twice daily For Protien supplement 30ml 01/30 Inactiv e 2023 04954 77339 5 Twice daily By Mouth False Albuterol sulfate 2.5 mg/3 mL (0.083 %) solution for nebulizatio n [generic] 3 ml Inhalation Every 6 hours as needed For wheezing 3 ml 2023 Active 2023 79944 61725 3 Every 6 hours as needed Inhala tion False Acetaminoph en 325 mg tablet [generic] 650 mg By Mouth Every 6 hours For Mild Pain 650 mg 01/29 Inactiv e 2023 22830 47022 0 Every 6 hours By Mouth False Tylenol 325 mg tablet 2 tabs By Mouth Every 4 hours as needed For Pain DO NOT EXCEED 3000 MG APAP/24 Hours 2 tabs 2023 Active 2023 69947 93942 0 Every 4 hours as needed By Mouth False Tylenol 325 mg tablet 2 tabs By Mouth Every 4 hours as needed For Fever >100 DO NOT EXCEED 3000 MG APAP/24 Hours 2 tabs 2023 Active 2023 40763 77584 0 Every 4 hours as needed By Mouth False Dulcolax (bisacodyl) 10 mg rectal suppository One Suppository per rectum PRN if Milk of Magnisia ineffective. Give on day 5 of no BM 1 sup 2023 Active 2023 21318 44605 1 Daily as needed Rectal False Fleet Enema 19 gram-7 gram/118 mL Administer per rectum PRN one time if dulcolax suppository not effective. Give on day 6 of no BM 1 2023 Active 2023 29590 52312 6 Daily as needed Rectal False Milk of Magnesia 400 mg/5 mL oral suspension [Magnesium hydroxide] PRN 30ml By Mouth Daily as needed for constipation one time daily if no BM, on day 4 of no BM (PRN refer to instructions) For Constipation 30 mL 2023 Active 2023 03417 94642 6 Daily as needed By Mouth False Oxycodone 5 mg tablet [generic] 01/29 Inactiv e 2023 10335 52512 1 Oxycodone 5 mg tablet [generic] 5mg By Mouth Every 4 hours as needed for severe pain for pain rate 7-10. For right pubis fracture 5mg 01/31 Inactiv e 2023 50254 45739 1 Every 4 hours as needed By Mouth False Cymbalta 30 mg capsule,del ayed release 30 mg By Mouth Once daily For Depression 30 mg 02/04 Inactiv e 2023 51165 19639 0 Once daily By Mouth False Acetaminoph en 500 mg tablet [generic] 1000 mg By Mouth Twice daily not to exceed 3gm APAP in 24 hours For Pain 1000 mg 2023 Active 2023 44023 15590 8 Twice daily By Mouth False Healthshake 118 ml BID 118 ml By Mouth Twice daily Healthshake 118 ml BID For MNA of 7 - malnourished - please record total ml consumed 118 ml 2023 Active 2023 Twice daily By Mouth False Oxycodone 5 mg tablet [generic] 01/31 Inactiv e 2023 01155 97364 1 Oxycodone 5 mg tablet [generic] 5mg By Mouth Every 4 hours as needed for severe pain for pain rate 7-10. For right pubis fracture 5mg 02/01 Inactiv e 2023 91675 31394 1 Every 4 hours as needed By Mouth False Oxycodone 5 mg tablet [generic] 5mg By Mouth Every 4 hours as needed for severe pain 7-10 For right pubis fx 5mg 2023 Active 2023 35722 12948 1 Every 4 hours as needed By Mouth False Cymbalta 60 mg capsule,del ayed release 60mg Once daily depression 60mg 2023 Active 2023 83524 57648 0 Once daily By Mouth False Enoxaparin 40 mg/0.4 mL subcutaneou s syringe [generic] 20mg Subcutaneous Once daily For anticoag 20mg 2023 Active 2023 25500 42651 0 Once daily Subcut aneous False Losartan 50 mg tablet [generic] 75 mg By Mouth Once daily For ESSENTIAL (PRIMARY) HYPERTENSION 75 mg 02/17 Inactiv e 2023 68099 25237 9 Once daily By Mouth I10. False Losartan 50 mg tablet [generic] 75 mg By Mouth ( 1.5 TABS) Once daily For ESSENTIAL (PRIMARY) HYPERTENSION 75 mg 2023 Active 2023 80965 79031 9 Once daily By Mouth I10. False Senna 8.6 mg tablet 2 tabs By Mouth Once daily As Needed For constipation 2 tabs 2023 Active 2023 01038 67223 1 Once daily By Mouth False Miralax 17 gram/dose oral powder 17 gram By Mouth As Needed For contispation 17 gram 2023 Active 2023 48091 93853 0 By Mouth False Problems Code Description Start Date End Date Status J44.9 Chronic obstructive pulmonary disease, unspecified 01/28/2024 Active I10. Essential (primary) hypertension 01/28/2024 Active S32.511D Fracture of superior rim of right pubis, subsequent encounter for fracture with routine healing 01/28/2024 Active S32.10XD Unspecified fracture of sacrum, subsequent encounter for fracture with routine healing 01/28/2024 Active S82.002D Unspecified fracture of left patella, subsequent encounter for closed fracture with routine healing 01/28/2024 Active S70.11XD Contusion of right thigh, subsequent encounter 01/28/2024 Active N18.32 Chronic kidney disease, stage 3b 01/28/2024 Active I73.9 Peripheral vascular disease, unspecified 2023 Active I71.40 Abdominal aortic ane urysm, without rupture, unspecified 01/28/2024 Active M81.0 Age-related osteopor osis without current pathological fracture 01/28/2024 Active E78.5 Hyperlipidemia, unspecified 01/28/2024 00 Active VITAL SIGNS Date Time Diastolic blood pressure Systolic blood pressure Body height Body weight Temperature SpO2 Blood Sugar Pulse Respirations 210 96313 7 78.00 mm[Hg] - Lying Down 186.00 mm[Hg] - Lying Down 109.80 NI 97.90 Forehead Scan 91.00 % 92.00/ min 18.00/min 210 49133 1 74.00 mm[Hg] - Lying Down 147.00 mm[Hg] - Lying Down 85.00/ min 211 29209 2 72.00 mm[Hg] - Sitting 138.00 mm[Hg] - Sitting 98.40 Tympanic 86.00/ min 18.00/min 25991 211 73464 2 59.00 mm[Hg] - Sitting 117.00 mm[Hg] - Sitting 98.20 Tympanic 99.00 % 81.00/ min 18.00/min 08760 211 06019 5 69.00 mm[Hg] - Sitting 145.00 mm[Hg] - Sitting 13490 211 95287 9 69.00 mm[Hg] - Sitting 145.00 mm[Hg] - Sitting 86232 211 14918 5 69.00 mm[Hg] - Sitting 145.00 mm[Hg] - Sitting 32774 211 60545 6 69.00 mm[Hg] - Sitting 77665 212 63775 7 59.00 mm[Hg] - Sitting 117.00 mm[Hg] - Sitting 98.20 Tympanic 81.00/ min 18.00/min 47049 212 37607 9 97.80 Tympanic 43940 212 18538 6 55.00 mm[Hg] - Sitting 109.00 mm[Hg] - Sitting 97.30 Tympanic 94.00 % 75.00/ min 18.00/min 06146 212 62538 5 68.00 mm[Hg] - Sitting 128.00 mm[Hg] - Sitting 97.80 Tympanic 80.00/ min 18.00/min 31650 212 11338 4 97.50 Tympanic 24178 212 37269 9 07356 212 22707 6 71.00 mm[Hg] - Sitting 117.00 mm[Hg] - Sitting 78089 213 21820 0 60.00 mm[Hg] - Sitting 116.00 mm[Hg] - Sitting 98.40 Forehead Scan 94.00 % 72.00/ min 16.00/min 64448 213 59990 7 70.00 mm[Hg] - Sitting 118.00 mm[Hg] - Sitting 98.00 Tympanic 82.00/ min 18.00/min 49985 213 40228 3 97.90 Tympanic 32549 213 39121 5 73.00 mm[Hg] - Lying Down 127.00 mm[Hg] - Lying Down 10194 213 17993 3 50192 214 57368 1 62.00 mm[Hg] - Sitting 127.00 mm[Hg] - Sitting 97.80 Tympanic 94.00 % 72.00/ min 16.00/min 80128 214 16852 4 59.00 mm[Hg] - Lying Down 113.00 mm[Hg] - Lying Down 82402 215 00740 0 56.00 mm[Hg] - Sitting 101.00 mm[Hg] - Sitting 97.80 Tympanic 95.00 % 71.00/ min 16.00/min 45821 215 10375 5 62 NI 36447 215 36975 8 57.00 mm[Hg] - Lying Down 113.00 mm[Hg] - Lying Down 72954 216 41172 3 71.00 mm[Hg] - Sitting 161.00 mm[Hg] - Sitting 98.10 Tympanic 93.00 % 81.00/ min 16.00/min 216 58580 1 72.00 mm[Hg] - Sitting 115.00 mm[Hg] - Sitting 89396 217 96815 2 87064 217 50757 4 62.00 mm[Hg] - Sitting 112.00 mm[Hg] - Sitting 35470 217 06956 3 57.00 mm[Hg] - Sitting 114.00 mm[Hg] - Sitting 98.30 Tympanic 98.00 % 78.00/ min 20.00/min 217 40778 4 62.00 mm[Hg] - Lying Down 111.00 mm[Hg] - Lying Down 58438 218 24541 0 70.00 mm[Hg] - Sitting 158.00 mm[Hg] - Sitting 97.60 Tympanic 97.00 % 68.00/ min 18.00/min 88129 218 12209 5 65.00 mm[Hg] - Lying Down 113.00 mm[Hg] - Lying Down 93154 219 95302 1 67.00 mm[Hg] - Sitting 112.00 mm[Hg] - Sitting 02199 220 32075 0 82.00 mm[Hg] - Sitting 160.00 mm[Hg] - Sitting 97.90 Forehead Scan 95.00 % 87.00/ min 16.00/min 25303 220 03984 7 69.00 mm[Hg] - Sitting 119.00 mm[Hg] - Sitting 54500 221 86273 1 82.00 mm[Hg] - Sitting 156.00 mm[Hg] - Sitting 98.20 Tympanic 95.00 % 72.00/ min 18.00/min 49801 221 56588 1 78.00 mm[Hg] - Sitting 148.00 mm[Hg] - Sitting 36875 222 71251 0 81.00 mm[Hg] - Sitting 161.00 mm[Hg] - Sitting 97.70 Tympanic 94.00 % 80.00/ min 18.00/min 222 54795 3 87.00 mm[Hg] - Sitting 141.00 mm[Hg] - Sitting 223 92752 9 68.00 mm[Hg] - Sitting 138.00 mm[Hg] - Sitting 98.10 Tympanic 92.00 % 85.00/ min 18.00/min 223 80714 4 67.00 mm[Hg] - Sitting 128.00 mm[Hg] - Sitting 224 32646 6 224 04204 5 73.00 mm[Hg] - Lying Down 151.00 mm[Hg] - Lying Down 98.40 Tympanic 95.00 % 75.00/ min 18.00/min 224 67061 3 63.00 mm[Hg] - Sitting 124.00 mm[Hg] - Sitting 225 55393 1 97.30 Tympanic 95.00 % 72.00/ min 20.00/min 225 36242 6 67.00 mm[Hg] - Sitting 132.00 mm[Hg] - Sitting 226 04128 2 67.00 mm[Hg] - Sitting 121.00 mm[Hg] - Sitting 227 64950 0 70.00 mm[Hg] - Sitting 137.00 mm[Hg] - Sitting 98.70 Forehead Scan 96.00 % 70.00/ min 16.00/min 227 70027 6 69.00 mm[Hg] - Sitting 131.00 mm[Hg] - Sitting 228 66782 7 79.00 mm[Hg] - Lying Down 181.00 mm[Hg] - Lying Down 98.40 Tympanic 98.00 % 75.00/ min 20.00/min 83517 228 23353 1 68.00 mm[Hg] - Lying Down 130.00 mm[Hg] - Lying Down 229 48071 6 80.00 mm[Hg] - Lying Down 183.00 mm[Hg] - Lying Down 98.60 Tympanic 97.00 % 75.00/ min 16.00/min 229 08682 4 74.00 mm[Hg] - Lying Down 161.00 mm[Hg] - Lying Down 77.00/ min 229 66651 9 87.00 mm[Hg] - Sitting 175.00 mm[Hg] - Sitting 66043 230 31542 7 83.00 mm[Hg] - Sitting 186.00 mm[Hg] - Sitting 98.30 Tympanic 94.00 % 86.00/ min 18.00/min 06726 230 56753 6 70.00 mm[Hg] - Sitting 125.00 mm[Hg] - Sitting 78188 231 81063 8 88362 231 67648 4 77.00 mm[Hg] - Sitting 159.00 mm[Hg] - Sitting 98.70 Tympanic 95.00 % 78.00/ min 18.00/min 75089 231 56097 8 77.00 mm[Hg] - Sitting 139.00 mm[Hg] - Sitting 88935 101 84872 3 98.40 Tympanic 95.00 % 85.00/ min 20.00/min 88047 101 14645 5 107.00 NI 98.40 Tympanic 86.00/ min 20.00/min 12757 101 15324 7 107.00 NI 98.40 Tympanic 86.00/ min 20.00/min 18198 101 96599 2 72.00 mm[Hg] - Sitting 136.00 mm[Hg] - Sitting 79641 102 34410 8 77.00 mm[Hg] - Sitting 160.00 mm[Hg] - Sitting 98.20 Tympanic 94.00 % 83.00/ min 18.00/min 44268 102 37217 4 67.00 mm[Hg] - Sitting 132.00 mm[Hg] - Sitting 34766 103 17657 0 98.60 Forehead Scan 97.00 % 86.00/ min 16.00/min 44359 103 80072 0 81.00 mm[Hg] - Sitting 130.00 mm[Hg] - Sitting 86737 104 93090 7 73.00 mm[Hg] - Sitting 124.00 mm[Hg] - Sitting
--- OUTSIDE RECORDS SUMMARY | 2024-04-10 03:13 | External Medical Summary | Summary of Care ---
Author Name Unknown Organization [facility] Address [address] [place] [address] Phone [phone] Care Team Providers Care Promotion Producer Name Role Phone Maria G Rendon Primary Care Provider Reason for Visit * Reason Onset Date Comments STAIR Lung Nodule 02/24/2024 Encounter Details Date Type Department Care Team (Late st Contact Info) Description 02/24/2024 Telephone STAIR LUNG NODULE [address], [place] [id number] Najma Rey CRNP [address] [place] [address] STAIR Lung Nodule Allergies Active Allergy Reactions Criticality Noted Date Comments Acetazolamide 05/22/2017 Percodan Psych complications 08/25/2003 Shakes really bad documented as of this encounter (statuses as of 02/24/2024) Medications CHILDRENS ASPIRIN 81 MG OR CHEW [...] morning. 30 Tablet 5 4 Active Tiotropium [place] Monohydrate 18 MCG Inhalation Capsule (Spiriva HandiHaler)Indic [...] as of this encounter (statuses as of 02/24/2024) Active Problems Problem Noted Date Diagnosed Date [...] as of this encounter (statuses as of 02/24/2024) Resolved Problems Problem Noted Date Diagnosed Date [...] as of this encounter (statuses as of 02/24/2024) Immunizations Name Administration Dates Next Due COVID-19 mRNA, LNP-s, No Pre serve, 2-Dose Series ([employer]) 04/27/2020,04/06/2020 Pneumococcal Conjugate Vacc, 13 Valent (Prevnar) [...] encounter Miscellaneous Notes * Telephone Encounter - Najma Rey CRNP - 02/24/2024 10:45 AM EST STAIR note 78 year old female, current smoker with PMHx for Asthma, COPD, DLD, PVD, OA and AAA. She is enrolled in the STAIR AAA program, and due for follow-up scan in June 2024[facility] results for the nodules. [place] [facility] [place], she had a Body CT chest. All imaging reviewed and most all nodules stable dating back to October 2021. RUL Sub solid nodule, with mild increase in Ground glass. Solid component < 6 mm. Will continue to follow with June scan that has been ordered by the STAIR AAA program. Called and spoke with patient. She verbalized understanding. DEBBIE Bender documented in this encounter Plan of Treatment Upcoming Encounters Date Type Department Care Team (Late st Contact Info) Description 03/10/2024 3:00 PM EST Office Visit [facility] [address] [place] [address] Maria G Rendon DO [address] [place] [id number] 06/19/2024 8:40 AM EDT Office Visit [facility] [address] [place] [address] [address] Maria G Rendon, DO [address] [place] [address] 08/17/2024 8:00 AM EDT Office Visit Pulmonary Medicine, [facility] [address] [place] [address] Humphrey Cormier MD [address] [place] [id number] Scheduled Procedures Name Priority Associated Diagnoses Date/Ti [...] Additional history exists CKD PHOS USE SMARTSET 37995 09/04/202408/18, 05/31/2022, 04/09/2019, Additional history exists CKD HGB USE SMARTSET 59408 01/26/202501/26, 01/26/2024, 01/25/2024, Additional history exists O2 [...] this encounter Medical Devices Implanted Type Area Housekeeper Home Device Identifier Shelf Expiration Date Model / Serial / Lot Patch Xenosure [id number] - [id number] - [id number] Implanted:Qty : 1 on 05/12/2021 by David Boss MD [place] [facility] Right: Femoral Artery [employer] [id number] 11/15/2026 E0.8P8 / [id number] / [id number] Graft Stent Viab [id number] - [id number] - [id number] Implanted:Qty : 1 on 05/12/2021 by David Boss MD at [place] [facility] Right: Iliac [employer] [id number] 01/06/2024 [id number] / [id number] / [id number] documented as of this encounter Advance Directives [...] and were consensually agreed upon. Care Teams Promotion Producer Relationship Specialty Start Date End Date Maria G Rendon DO [address] [place], [place] [address]mar[place] [address] PCP - General Family Medicine 11/03/20 documented as of this encounter
--- OUTSIDE RECORDS SUMMARY | 2024-04-10 03:13 | External Medical Summary | Continuity Of Care Document ---
Author Name Unknown Address [address] [address] [facility] Care Team Providers Care Supervisor Correspondence Section Name Role Phone DO Alonso Amy Primary Care Provider [phone] Allergies Allergy Reaction Start Date End Date [...] 3 0.1 mL 01/29 Inactiv e 2023 57613 58450 0 1 time Intrad ermal False Tubersol 5 tub. unit/0.1 mL intradermal injection solution [Tuberculin PPD] 0.1mL Intradermal 1 time For PPD 2nd Step Give 2nd Step PPD Day 1 and Read results Day 3 (schedule 7 days after 1st READ) 0.1mL 02/07 Inactiv e 2023 32035 57893 0 1 time Intrad ermal False Oxycodone 5 mg tablet [generic] 5mg By Mouth Every 4 hours as needed for severe pain for pain rate 7-10. For right pubis fracture 5mg 01/27 Inactiv e 2023 78714 94462 1 Every 4 hours as needed By Mouth False OXYCODONE 5 MG TABLET [GENERIC]IM MEDIATE RELEASE 2.5mg By Mouth Every 4 hours as needed tablet po for moderate pain, pain rate 4-6 on pain scale 1-10. For pain 2.5mg 01/27 Inactiv e 2023 Every 4 hours as needed By Mouth False Oxycodone 5 mg tablet [generic] 01/27 Inactiv e 2023 66088 41853 1 Oxycodone 5 mg tablet [generic] 5mg By Mouth Every 4 hours as needed for severe pain for pain rate 7-10. For right pubis fracture 5mg 01/29 Inactiv e 2023 69507 98331 1 Every 4 hours as needed By [...] For Muscle spasms 175mg 2023 Active 2023 58088 51254 1 Every 6 hours as needed By Mouth False Cephalexin 500 mg capsule [generic] 500mg By Mouth Every 8 hours For UTI 500mg 01/30 Inactiv e 2023 55347 39706 1 Every 8 hours By Mouth False Aspirin 81 mg chewable tablet [generic] 81 mg By Mouth Once daily For AAA 81 mg 2023 Active 2023 04168 29590 6 Once daily By Mouth False Colace 100 mg capsule 100mg By Mouth Twice daily For constipation 100mg 2023 Active 2023 84460 50302 1 Twice daily By Mouth False Enoxaparin 300 mg/3 mL subcutaneou s solution [generic] 20mg Subcutaneous Once daily For anticoag. 20mg 02/06 Inactiv e 2023 84655 09785 1 Once daily Subcut aneous False Losartan 50 mg tablet [generic] 50 By Mouth Once daily For HTN 50 02/16 Inactiv e 2023 14223 77731 9 Once daily By Mouth False Miralax 17 gram/dose oral powder 17 gram By Mouth Once daily For contispation 17 gram 02/17 Inactiv e 2023 91981 79649 0 Once daily By Mouth False Senna 8.6 mg tablet 2 tabs By Mouth Once daily For constipation 2 tabs 02/17 Inactiv e 2023 21369 36200 1 Once daily By Mouth False Simvastatin 20 mg tablet [generic] 20 mg By Mouth Once daily For Hyperlipidemi a 20 mg 2023 Active 2023 19753 29559 0 Once daily By Mouth False Spiriva with HandiHaler 18 mcg and inhalation capsules 1 capsule Inhalation Once daily For COPD 1 capsule 2023 Active 2023 72114 02296 1 Once daily Inhala tion False Ventolin HFA 90 mcg/actuati on aerosol inhaler 2 puff Inhalation Every 4 hours as needed For COPD 2 puff 2023 Active 2023 93147 19403 0 Every 4 hours as needed Inhala tion False ProSource No Carb 15 gram-60 kcal/30 mL oral liquid 30ml By Mouth Twice daily For Protien supplement 30ml 01/30 Inactiv e 2023 57098 86821 5 Twice daily By Mouth False Albuterol sulfate 2.5 mg/3 mL (0.083 %) solution for nebulizatio n [generic] 3 ml Inhalation Every 6 hours as needed For wheezing 3 ml 2023 Active 2023 01350 90623 3 Every 6 hours as needed Inhala tion False Acetaminoph en 325 mg tablet [generic] 650 mg By Mouth Every 6 hours For Mild Pain 650 mg 01/29 Inactiv e 2023 34351 83571 0 Every 6 hours By Mouth False Tylenol 325 mg tablet 2 tabs By Mouth Every 4 hours as needed For Pain DO NOT EXCEED 3000 MG APAP/24 Hours 2 tabs 2023 Active 2023 27162 49159 0 Every 4 hours as needed By Mouth False Tylenol 325 mg tablet 2 tabs By Mouth Every 4 hours as needed For Fever >100 DO NOT EXCEED 3000 MG APAP/24 Hours 2 tabs 2023 Active 2023 84811 43158 0 Every 4 hours as needed By Mouth False Dulcolax (bisacodyl) 10 mg rectal suppository One Suppository per rectum PRN if Milk of Magnisia ineffective. Give on day 5 of no BM 1 sup 2023 Active 2023 23273 65189 1 Daily as needed Rectal False Fleet Enema 19 gram-7 gram/118 mL Administer per rectum PRN one time if dulcolax suppository not effective. Give on day 6 of no BM 1 2023 Active 2023 81891 57227 6 Daily as needed Rectal False Milk of Magnesia 400 mg/5 mL oral suspension [Magnesium hydroxide] PRN 30ml By Mouth Daily as needed for constipation one time daily if no BM, on day 4 of no BM (PRN refer to instructions) For Constipation 30 mL 2023 Active 2023 19783 56585 6 Daily as needed By Mouth False Oxycodone 5 mg tablet [generic] 01/29 Inactiv e 2023 57370 70036 1 Oxycodone 5 mg tablet [generic] 5mg By Mouth Every 4 hours as needed for severe pain for pain rate 7-10. For right pubis fracture 5mg 01/31 Inactiv e 2023 51428 53565 1 Every 4 hours as needed By Mouth False Cymbalta 30 mg capsule,del ayed release 30 mg By Mouth Once daily For Depression 30 mg 02/04 Inactiv e 2023 49929 99286 0 Once daily By Mouth False Acetaminoph en 500 mg tablet [generic] 1000 mg By Mouth Twice daily not to exceed 3gm APAP in 24 hours For Pain 1000 mg 2023 Active 2023 81039 34492 8 Twice daily By Mouth False Healthshake 118 ml BID 118 ml By Mouth Twice daily Healthshake 118 ml BID For MNA of 7 - malnourished - please record total ml consumed 118 ml 2023 Active 2023 Twice daily By Mouth False Oxycodone 5 mg tablet [generic] 01/31 Inactiv e 2023 98464 80356 1 Oxycodone 5 mg tablet [generic] 5mg By Mouth Every 4 hours as needed for severe pain for pain rate 7-10. For right pubis fracture 5mg 02/01 Inactiv e 2023 88260 69293 1 Every 4 hours as needed By Mouth False Oxycodone 5 mg tablet [generic] 5mg By Mouth Every 4 hours as needed for severe pain 7-10 For right pubis fx 5mg 2023 Active 2023 14321 08065 1 Every 4 hours as needed By Mouth False Cymbalta 60 mg capsule,del ayed release 60mg Once daily depression 60mg 2023 Active 2023 18796 17997 0 Once daily By Mouth False Enoxaparin 40 mg/0.4 mL subcutaneou s syringe [generic] 20mg Subcutaneous Once daily For anticoag 20mg 2023 Active 2023 96822 97737 0 Once daily Subcut aneous False Losartan 50 mg tablet [generic] 75 mg By Mouth Once daily For ESSENTIAL (PRIMARY) HYPERTENSION 75 mg 02/17 Inactiv e 2023 34645 37656 9 Once daily By Mouth I10. False Losartan 50 mg tablet [generic] 75 mg By Mouth ( 1.5 TABS) Once daily For ESSENTIAL (PRIMARY) HYPERTENSION 75 mg 2023 Active 2023 45054 95216 9 Once daily By Mouth I10. False Senna 8.6 mg tablet 2 tabs By Mouth Once daily As Needed For constipation 2 tabs 2023 Active 2023 41710 97417 1 Once daily By Mouth False Miralax 17 gram/dose oral powder 17 gram By Mouth As Needed For contispation 17 gram 2023 Active 2023 79829 32227 0 By Mouth False Problems Code Description [...] Temperature SpO2 Blood Sugar Pulse Respirations 210 69546 7 78.00 mm[Hg] - Lying Down 186.00 mm[Hg] - Lying Down 109.80 NI 97.90 Forehead Scan 91.00 % 92.00/ min 18.00/min 210 86082 1 74.00 mm[Hg] - Lying Down 147.00 mm[Hg] - Lying Down 85.00/ min 211 65804 2 72.00 mm[Hg] - Sitting 138.00 mm[Hg] - Sitting 98.40 Tympanic 86.00/ min 18.00/min 77613 211 75204 2 59.00 mm[Hg] - Sitting 117.00 mm[Hg] - Sitting 98.20 Tympanic 99.00 % 81.00/ min 18.00/min 38620 211 70181 5 69.00 mm[Hg] - Sitting 145.00 mm[Hg] - Sitting 58421 211 37073 9 69.00 mm[Hg] - Sitting 145.00 mm[Hg] - Sitting 72008 211 31178 5 69.00 mm[Hg] - Sitting 145.00 mm[Hg] - Sitting 62490 211 73860 6 69.00 mm[Hg] - Sitting 19778 212 59141 7 59.00 mm[Hg] - Sitting 117.00 mm[Hg] - Sitting 98.20 Tympanic 81.00/ min 18.00/min 10619 212 33780 9 97.80 Tympanic 52377 212 83571 6 55.00 mm[Hg] - Sitting 109.00 mm[Hg] - Sitting 97.30 Tympanic 94.00 % 75.00/ min 18.00/min 03277 212 12272 5 68.00 mm[Hg] - Sitting 128.00 mm[Hg] - Sitting 97.80 Tympanic 80.00/ min 18.00/min 74449 212 87260 4 97.50 Tympanic 73344 212 86555 9 89094 212 27226 6 71.00 mm[Hg] - Sitting 117.00 mm[Hg] - Sitting 42557 213 96684 0 60.00 mm[Hg] - Sitting 116.00 mm[Hg] - Sitting 98.40 Forehead Scan 94.00 % 72.00/ min 16.00/min 31167 213 04616 7 70.00 mm[Hg] - Sitting 118.00 mm[Hg] - Sitting 98.00 Tympanic 82.00/ min 18.00/min 89868 213 24352 3 97.90 Tympanic 26118 213 95417 5 73.00 mm[Hg] - Lying Down 127.00 mm[Hg] - Lying Down 92276 213 93823 3 53051 214 05450 1 62.00 mm[Hg] - Sitting 127.00 mm[Hg] - Sitting 97.80 Tympanic 94.00 % 72.00/ min 16.00/min 24440 214 46250 4 59.00 mm[Hg] - Lying Down 113.00 mm[Hg] - Lying Down
--- OUTSIDE RECORDS SUMMARY | 2024-04-10 03:13 | External Medical Summary | Continuity Of Care Document ---
Author Name Unknown Address [address] [address] Organization [facility] () Care Team Providers Care Supervisor Home [employer] Name Role Phone DO Alonso Amy Primary Care Provider [phone] Allergies Allergy Reaction Start Date End Date [...] 3 0.1 mL 01/29 Inactiv e 2023 84623 05515 0 1 time Intrad ermal False Tubersol 5 tub. unit/0.1 mL intradermal injection solution [Tuberculin PPD] 0.1mL Intradermal 1 time For PPD 2nd Step Give 2nd Step PPD Day 1 and Read results Day 3 (schedule 7 days after 1st READ) 0.1mL 02/07 Inactiv e 2023 61291 13087 0 1 time Intrad ermal False Oxycodone 5 mg tablet [generic] 5mg By Mouth Every 4 hours as needed for severe pain for pain rate 7-10. For right pubis fracture 5mg 01/27 Inactiv e 2023 95640 02916 1 Every 4 hours as needed By Mouth False OXYCODONE 5 MG TABLET [GENERIC]IM MEDIATE RELEASE 2.5mg By Mouth Every 4 hours as needed tablet po for moderate pain, pain rate 4-6 on pain scale 1-10. For pain 2.5mg 01/27 Inactiv e 2023 Every 4 hours as needed By Mouth False Oxycodone 5 mg tablet [generic] 01/27 Inactiv e 2023 38731 11396 1 Oxycodone 5 mg tablet [generic] 5mg By Mouth Every 4 hours as needed for severe pain for pain rate 7-10. For right pubis fracture 5mg 01/29 Inactiv e 2023 15684 77140 1 Every 4 hours as needed By [...] For Muscle spasms 175mg 2023 Active 2023 28692 85889 1 Every 6 hours as needed By Mouth False Cephalexin 500 mg capsule [generic] 500mg By Mouth Every 8 hours For UTI 500mg 01/30 Inactiv e 2023 49750 57873 1 Every 8 hours By Mouth False Aspirin 81 mg chewable tablet [generic] 81 mg By Mouth Once daily For AAA 81 mg 2023 Active 2023 67714 65569 6 Once daily By Mouth False Colace 100 mg capsule 100mg By Mouth Twice daily For constipation 100mg 2023 Active 2023 38881 67994 1 Twice daily By Mouth False Enoxaparin 300 mg/3 mL subcutaneou s solution [generic] 20mg Subcutaneous Once daily For anticoag. 20mg 02/06 Inactiv e 2023 09681 44492 1 Once daily Subcut aneous False Losartan 50 mg tablet [generic] 50 By Mouth Once daily For HTN 50 02/16 Inactiv e 2023 63512 51043 9 Once daily By Mouth False Miralax 17 gram/dose oral powder 17 gram By Mouth Once daily For contispation 17 gram 02/17 Inactiv e 2023 80074 53177 0 Once daily By Mouth False Senna 8.6 mg tablet 2 tabs By Mouth Once daily For constipation 2 tabs 02/17 Inactiv e 2023 54186 67815 1 Once daily By Mouth False Simvastatin 20 mg tablet [generic] 20 mg By Mouth Once daily For Hyperlipidemi a 20 mg 2023 Active 2023 86656 32494 0 Once daily By Mouth False Spiriva with HandiHaler 18 mcg and inhalation capsules 1 capsule Inhalation Once daily For COPD 1 capsule 2023 Active 2023 79928 64859 1 Once daily Inhala tion False Ventolin HFA 90 mcg/actuati on aerosol inhaler 2 puff Inhalation Every 4 hours as needed For COPD 2 puff 2023 Active 2023 85392 50266 0 Every 4 hours as needed Inhala tion False ProSource No Carb 15 gram-60 kcal/30 mL oral liquid 30ml By Mouth Twice daily For Protien supplement 30ml 01/30 Inactiv e 2023 94334 70012 5 Twice daily By Mouth False Albuterol sulfate 2.5 mg/3 mL (0.083 %) solution for nebulizatio n [generic] 3 ml Inhalation Every 6 hours as needed For wheezing 3 ml 2023 Active 2023 32286 84666 3 Every 6 hours as needed Inhala tion False Acetaminoph en 325 mg tablet [generic] 650 mg By Mouth Every 6 hours For Mild Pain 650 mg 01/29 Inactiv e 2023 67137 55083 0 Every 6 hours By Mouth False Tylenol 325 mg tablet 2 tabs By Mouth Every 4 hours as needed For Pain DO NOT EXCEED 3000 MG APAP/24 Hours 2 tabs 2023 Active 2023 18422 00810 0 Every 4 hours as needed By Mouth False Tylenol 325 mg tablet 2 tabs By Mouth Every 4 hours as needed For Fever >100 DO NOT EXCEED 3000 MG APAP/24 Hours 2 tabs 2023 Active 2023 06390 78554 0 Every 4 hours as needed By Mouth False Dulcolax (bisacodyl) 10 mg rectal suppository One Suppository per rectum PRN if Milk of Magnisia ineffective. Give on day 5 of no BM 1 sup 2023 Active 2023 96572 73334 1 Daily as needed Rectal False Fleet Enema 19 gram-7 gram/118 mL Administer per rectum PRN one time if dulcolax suppository not effective. Give on day 6 of no BM 1 2023 Active 2023 35068 71029 6 Daily as needed Rectal False Milk of Magnesia 400 mg/5 mL oral suspension [Magnesium hydroxide] PRN 30ml By Mouth Daily as needed for constipation one time daily if no BM, on day 4 of no BM (PRN refer to instructions) For Constipation 30 mL 2023 Active 2023 41508 66072 6 Daily as needed By Mouth False Oxycodone 5 mg tablet [generic] 01/29 Inactiv e 2023 78074 86812 1 Oxycodone 5 mg tablet [generic] 5mg By Mouth Every 4 hours as needed for severe pain for pain rate 7-10. For right pubis fracture 5mg 01/31 Inactiv e 2023 71473 66214 1 Every 4 hours as needed By Mouth False Cymbalta 30 mg capsule,del ayed release 30 mg By Mouth Once daily For Depression 30 mg 02/04 Inactiv e 2023 53535 24260 0 Once daily By Mouth False Acetaminoph en 500 mg tablet [generic] 1000 mg By Mouth Twice daily not to exceed 3gm APAP in 24 hours For Pain 1000 mg 2023 Active 2023 03167 27346 8 Twice daily By Mouth False Healthshake 118 ml BID 118 ml By Mouth Twice daily Healthshake 118 ml BID For MNA of 7 - malnourished - please record total ml consumed 118 ml 2023 Active 2023 Twice daily By Mouth False Oxycodone 5 mg tablet [generic] 01/31 Inactiv e 2023 39222 04325 1 Oxycodone 5 mg tablet [generic] 5mg By Mouth Every 4 hours as needed for severe pain for pain rate 7-10. For right pubis fracture 5mg 02/01 Inactiv e 2023 59158 42523 1 Every 4 hours as needed By Mouth False Oxycodone 5 mg tablet [generic] 5mg By Mouth Every 4 hours as needed for severe pain 7-10 For right pubis fx 5mg 2023 Active 2023 90654 79192 1 Every 4 hours as needed By Mouth False Cymbalta 60 mg capsule,del ayed release 60mg Once daily depression 60mg 2023 Active 2023 23018 38505 0 Once daily By Mouth False Enoxaparin 40 mg/0.4 mL subcutaneou s syringe [generic] 20mg Subcutaneous Once daily For anticoag 20mg 2023 Active 2023 89902 85666 0 Once daily Subcut aneous False Losartan 50 mg tablet [generic] 75 mg By Mouth Once daily For ESSENTIAL (PRIMARY) HYPERTENSION 75 mg 02/17 Inactiv e 2023 13749 59012 9 Once daily By Mouth I10. False Losartan 50 mg tablet [generic] 75 mg By Mouth ( 1.5 TABS) Once daily For ESSENTIAL (PRIMARY) HYPERTENSION 75 mg 2023 Active 2023 10263 45542 9 Once daily By Mouth I10. False Senna 8.6 mg tablet 2 tabs By Mouth Once daily As Needed For constipation 2 tabs 2023 Active 2023 38048 79921 1 Once daily By Mouth False Miralax 17 gram/dose oral powder 17 gram By Mouth As Needed For contispation 17 gram 2023 Active 2023 87888 16262 0 By Mouth False OXYCODONE 5 MG TABLET [GENERIC]IM MEDIATE RELEASE 2.5mg By Mouth Every 4 hours as needed tablet po for moderate , rate 4-6 on scale 1-10. For right pubis fracture 2.5mg 2024 Active 2024 Every 4 hours as needed By Mouth False Carisoprodo l 350 mg tablet [generic] 175mg By Mouth Every 6 hours as needed For Muscle spasms 175mg 2024 Active 2024 62804 76624 1 Every 6 hours as needed By Mouth False Aspirin 81 mg chewable tablet [generic] 81 mg By Mouth Once daily For AAA 81 mg 2024 Active 2024 26636 42005 6 Once daily By Mouth False Colace 100 mg capsule 100mg By Mouth Twice daily For constipation 100mg 2024 Active 2024 05433 16479 1 Twice daily By Mouth False Simvastatin 20 mg tablet [generic] 20 mg By Mouth Once daily For Hyperlipidemi a 20 mg 2024 Active 2024 15863 31081 0 Once daily By Mouth False Spiriva with HandiHaler 18 mcg and inhalation capsules 1 capsule Inhalation Once daily For COPD 1 capsule 2024 Active 2024 54349 86589 1 Once daily Inhala tion False Ventolin HFA 90 mcg/actuati on aerosol inhaler 2 puff Inhalation Every 4 hours as needed For COPD 2 puff 2024 Active 2024 94694 70549 0 Every 4 hours as needed Inhala tion False Albuterol sulfate 2.5 mg/3 mL (0.083 %) solution for nebulizatio n [generic] 3 ml Inhalation Every 6 hours as needed For wheezing 3 ml 2024 Active 2024 69727 55560 3 Every 6 hours as needed Inhala tion False Tylenol 325 mg tablet 2 tabs By Mouth Every 4 hours as needed For Pain DO NOT EXCEED 3000 MG APAP/24 Hours 2 tabs 2024 Active 2024 27438 30331 0 Every 4 hours as needed By Mouth False Tylenol 325 mg tablet 2 tabs By Mouth Every 4 hours as needed For Fever >100 DO NOT EXCEED 3000 MG APAP/24 Hours 2 tabs 2024 Active 2024 71822 50793 0 Every 4 hours as needed By Mouth False Dulcolax (bisacodyl) 10 mg rectal suppository One Suppository per rectum PRN if Milk of Magnisia ineffective. Give on day 5 of no BM 1 sup 2024 Active 2024 22398 95498 1 Daily as needed Rectal False Fleet Enema 19 gram-7 gram/118 mL Administer per rectum PRN one time if dulcolax suppository not effective. Give on day 6 of no BM 1 2024 Active 2024 28342 51303 6 Daily as needed Rectal False Milk of Magnesia 400 mg/5 mL oral suspension [Magnesium hydroxide] PRN 30ml By Mouth Daily as needed for constipation one time daily if no BM, on day 4 of no BM (PRN refer to instructions) For Constipation 30 mL 2024 Active 2024 11864 35871 6 Daily as needed By Mouth False Acetaminoph en 500 mg tablet [generic] 1000 mg By Mouth Twice daily not to exceed 3gm APAP in 24 hours For Pain 1000 mg 2024 Active 2024 34034 56110 8 Twice daily By Mouth False Healthshake 118 ml BID 118 ml By Mouth Twice daily Healthshake 118 ml BID For MNA of 7 - malnourished - please record total ml consumed 118 ml 2024 Active 2024 Twice daily By Mouth False Oxycodone 5 mg tablet [generic] 5mg By Mouth Every 4 hours as needed for severe pain 7-10 For right pubis fx 5mg 2024 Active 2024 20691 17649 1 Every 4 hours as needed By Mouth False Cymbalta 60 mg capsule,del ayed release 60mg Once daily depression 60mg 2024 Active 2024 68422 77630 0 Once daily By Mouth False Enoxaparin 40 mg/0.4 mL subcutaneou s syringe [generic] 20mg Subcutaneous Once daily For anticoag 20mg 2024 Active 2024 51603 82670 0 Once daily Subcut aneous False Losartan 50 mg tablet [generic] 75 mg By Mouth ( 1.5 TABS) Once daily For ESSENTIAL (PRIMARY) HYPERTENSION 75 mg 2024 Active 2024 16535 23838 9 Once daily By Mouth I10. False Senna 8.6 mg tablet 2 tabs By Mouth Once daily As Needed For constipation 2 tabs 2024 Active 2024 11026 30394 1 Once daily By Mouth False Miralax 17 gram/dose oral powder 17 gram By Mouth As Needed For contispation 17 gram 2024 Active 2024 48053 26777 0 By Mouth False Problems Code Description [...] fracture 01/28/2024 Active E78.5 Hyperlipidemia, unspecified 01/28/2024 Active VITAL SIGNS Date Time Diastolic blood pressure Systolic blood pressure Body height Body weight Temperature SpO2 Blood Sugar Pulse Respirations 210 56499 7 78.00 mm[Hg] - Lying Down 186.00 mm[Hg] - Lying Down 109.80 NI 97.90 Forehead Scan 91.00 % 92.00/ min 18.00/min 210 50722 1 74.00 mm[Hg] - Lying Down 147.00 mm[Hg] - Lying Down 85.00/ min 211 83126 2 72.00 mm[Hg] - Sitting 138.00 mm[Hg] - Sitting 98.40 Tympanic 86.00/ min 18.00/min 211 42151 2 59.00 mm[Hg] - Sitting 117.00 mm[Hg] - Sitting 98.20 Tympanic 99.00 % 81.00/ min 18.00/min 211 40098 5 69.00 mm[Hg] - Sitting 145.00 mm[Hg] - Sitting 211 33726 9 69.00 mm[Hg] - Sitting 145.00 mm[Hg] - Sitting 211 73791 5 69.00 mm[Hg] - Sitting 145.00 mm[Hg] - Sitting 211 08917 6 69.00 mm[Hg] - Sitting 212 62112 7 59.00 mm[Hg] - Sitting 117.00 mm[Hg] - Sitting 98.20 Tympanic 81.00/ min 18.00/min 212 52291 9 97.80 Tympanic 212 57023 6 55.00 mm[Hg] - Sitting 109.00 mm[Hg] - Sitting 97.30 Tympanic 94.00 % 75.00/ min 18.00/min 212 37059 5 68.00 mm[Hg] - Sitting 128.00 mm[Hg] - Sitting 97.80 Tympanic 80.00/ min 18.00/min 21034 212 25502 4 97.50 Tympanic 30707 212 48926 9 79615 212 53403 6 71.00 mm[Hg] - Sitting 117.00 mm[Hg] - Sitting 86026 213 11593 0 60.00 mm[Hg] - Sitting 116.00 mm[Hg] - Sitting 98.40 Forehead Scan 94.00 % 72.00/ min 16.00/min 75359 213 63533 7 70.00 mm[Hg] - Sitting 118.00 mm[Hg] - Sitting 98.00 Tympanic 82.00/ min 18.00/min 45994 213 07017 3 97.90 Tympanic 74790 213 39895 5 73.00 mm[Hg] - Lying Down 127.00 mm[Hg] - Lying Down 78715 213 30376 3 36212 214 09576 1 62.00 mm[Hg] - Sitting 127.00 mm[Hg] - Sitting 97.80 Tympanic 94.00 % 72.00/ min 16.00/min 16208 214 88989 4 59.00 mm[Hg] - Lying Down 113.00 mm[Hg] - Lying Down 60331 215 99896 0 56.00 mm[Hg] - Sitting 101.00 mm[Hg] - Sitting 97.80 Tympanic 95.00 % 71.00/ min 16.00/min 88524 215 02233 5 62 NI 44619 215 80310 8 57.00 mm[Hg] - Lying Down 113.00 mm[Hg] - Lying Down 71334 216 40277 3 71.00 mm[Hg] - Sitting 161.00 mm[Hg] - Sitting 98.10 Tympanic 93.00 % 81.00/ min 16.00/min 23813 216 20620 1 72.00 mm[Hg] - Sitting 115.00 mm[Hg] - Sitting 12375 217 81970 2 90669 217 30959 4 62.00 mm[Hg] - Sitting 112.00 mm[Hg] - Sitting 83248 217 55938 3 57.00 mm[Hg] - Sitting 114.00 mm[Hg] - Sitting 98.30 Tympanic 98.00 % 78.00/ min 20.00/min 32558 217 89324 4 62.00 mm[Hg] - Lying Down 111.00 mm[Hg] - Lying Down 41423 218 22016 0 70.00 mm[Hg] - Sitting 158.00 mm[Hg] - Sitting 97.60 Tympanic 97.00 % 68.00/ min 18.00/min 65183 218 81468 5 65.00 mm[Hg] - Lying Down 113.00 mm[Hg] - Lying Down 22368 219 67481 1 67.00 mm[Hg] - Sitting 112.00 mm[Hg] - Sitting 49890 220 28483 0 82.00 mm[Hg] - Sitting 160.00 mm[Hg] - Sitting 97.90 Forehead Scan 95.00 % 87.00/ min 16.00/min 220 01796 7 69.00 mm[Hg] - Sitting 119.00 mm[Hg] - Sitting 93251 221 94311 1 82.00 mm[Hg] - Sitting 156.00 mm[Hg] - Sitting 98.20 Tympanic 95.00 % 72.00/ min 18.00/min 06733 221 84104 1 78.00 mm[Hg] - Sitting 148.00 mm[Hg] - Sitting 34153 222 06221 0 81.00 mm[Hg] - Sitting 161.00 mm[Hg] - Sitting 97.70 Tympanic 94.00 % 80.00/ min 18.00/min 79329 222 66453 3 87.00 mm[Hg] - Sitting 141.00 mm[Hg] - Sitting 87212 223 88096 9 68.00 mm[Hg] - Sitting 138.00 mm[Hg] - Sitting 98.10 Tympanic 92.00 % 85.00/ min 18.00/min 78914 223 44560 4 67.00 mm[Hg] - Sitting 128.00 mm[Hg] - Sitting 91041 224 64771 6 85621 224 77487 5 73.00 mm[Hg] - Lying Down 151.00 mm[Hg] - Lying Down 98.40 Tympanic 95.00 % 75.00/ min 18.00/min 49278 224 58931 3 63.00 mm[Hg] - Sitting 124.00 mm[Hg] - Sitting 31682 225 23830 1 97.30 Tympanic 95.00 % 72.00/ min 20.00/min 65117 225 59174 6 67.00 mm[Hg] - Sitting 132.00 mm[Hg] - Sitting 64735 226 13751 2 67.00 mm[Hg] - Sitting 121.00 mm[Hg] - Sitting 227 75149 0 70.00 mm[Hg] - Sitting 137.00 mm[Hg] - Sitting 98.70 Forehead Scan 96.00 % 70.00/ min 16.00/min 227 74149 6 69.00 mm[Hg] - Sitting 131.00 mm[Hg] - Sitting 228 33863 7 79.00 mm[Hg] - Lying Down 181.00 mm[Hg] - Lying Down 98.40 Tympanic 98.00 % 75.00/ min 20.00/min 228 98641 1 68.00 mm[Hg] - Lying Down 130.00 mm[Hg] - Lying Down 229 97442 6 80.00 mm[Hg] - Lying Down 183.00 mm[Hg] - Lying Down 98.60 Tympanic 97.00 % 75.00/ min 16.00/min 24318 229 44472 4 74.00 mm[Hg] - Lying Down 161.00 mm[Hg] - Lying Down 77.00/ min 229 32106 9 87.00 mm[Hg] - Sitting 175.00 mm[Hg] - Sitting 11246 230 05993 7 83.00 mm[Hg] - Sitting 186.00 mm[Hg] - Sitting 98.30 Tympanic 94.00 % 86.00/ min 18.00/min 70371 230 23786 6 70.00 mm[Hg] - Sitting 125.00 mm[Hg] - Sitting 04261 231 60743 8 41858 231 79039 4 77.00 mm[Hg] - Sitting 159.00 mm[Hg] - Sitting 98.70 Tympanic 95.00 % 78.00/ min 18.00/min 11188 231 45474 8 77.00 mm[Hg] - Sitting 139.00 mm[Hg] - Sitting 79304 101 55788 3 98.40 Tympanic 95.00 % 85.00/ min 20.00/min 04723 101 69982 5 107.00 NI 98.40 Tympanic 86.00/ min 20.00/min 06005 101 74671 7 107.00 NI 98.40 Tympanic 86.00/ min 20.00/min 12253 101 31085 2 72.00 mm[Hg] - Sitting 136.00 mm[Hg] - Sitting 55004 102 06920 8 77.00 mm[Hg] - Sitting 160.00 mm[Hg] - Sitting 98.20 Tympanic 94.00 % 83.00/ min 18.00/min 78908 102 13002 4 67.00 mm[Hg] - Sitting 132.00 mm[Hg] - Sitting 31560 103 07268 0 98.60 Forehead Scan 97.00 % 86.00/ min 16.00/min 75246 103 71495 0 81.00 mm[Hg] - Sitting 130.00 mm[Hg] - Sitting 32735 104 87794 7 73.00 mm[Hg] - Sitting 124.00 mm[Hg] - Sitting
--- OUTSIDE RECORDS SUMMARY | 2024-04-10 03:13 | External Medical Summary | Continuity Of Care Document ---
Author Name Unknown Address [address] [address] Organization [facility] () Care Team Providers [employer] Representative Name Role Phone DO Alonso Amy Primary Care Provider [phone] Allergies Allergy Reaction Start Date End Date [...] 3 0.1 mL 01/29 Inactiv e 2023 65195 16261 0 1 time Intrad ermal False Tubersol 5 tub. unit/0.1 mL intradermal injection solution [Tuberculin PPD] 0.1mL Intradermal 1 time For PPD 2nd Step Give 2nd Step PPD Day 1 and Read results Day 3 (schedule 7 days after 1st READ) 0.1mL 02/07 Inactiv e 2023 30376 19954 0 1 time Intrad ermal False Oxycodone 5 mg tablet [generic] 5mg By Mouth Every 4 hours as needed for severe pain for pain rate 7-10. For right pubis fracture 5mg 01/27 Inactiv e 2023 85391 21393 1 Every 4 hours as needed By Mouth False OXYCODONE 5 MG TABLET [GENERIC]IM MEDIATE RELEASE 2.5mg By Mouth Every 4 hours as needed tablet po for moderate pain, pain rate 4-6 on pain scale 1-10. For pain 2.5mg 01/27 Inactiv e 2023 Every 4 hours as needed By Mouth False Oxycodone 5 mg tablet [generic] 01/27 Inactiv e 2023 86425 93861 1 Oxycodone 5 mg tablet [generic] 5mg By Mouth Every 4 hours as needed for severe pain for pain rate 7-10. For right pubis fracture 5mg 01/29 Inactiv e 2023 67318 48052 1 Every 4 hours as needed By [...] For Muscle spasms 175mg 2023 Active 2023 42626 28534 1 Every 6 hours as needed By Mouth False Cephalexin 500 mg capsule [generic] 500mg By Mouth Every 8 hours For UTI 500mg 01/30 Inactiv e 2023 14338 72331 1 Every 8 hours By Mouth False Aspirin 81 mg chewable tablet [generic] 81 mg By Mouth Once daily For AAA 81 mg 2023 Active 2023 13920 05425 6 Once daily By Mouth False Colace 100 mg capsule 100mg By Mouth Twice daily For constipation 100mg 2023 Active 2023 67675 20848 1 Twice daily By Mouth False Enoxaparin 300 mg/3 mL subcutaneou s solution [generic] 20mg Subcutaneous Once daily For anticoag. 20mg 02/06 Inactiv e 2023 89257 99110 1 Once daily Subcut aneous False Losartan 50 mg tablet [generic] 50 By Mouth Once daily For HTN 50 02/16 Inactiv e 2023 66872 14213 9 Once daily By Mouth False Miralax 17 gram/dose oral powder 17 gram By Mouth Once daily For contispation 17 gram 02/17 Inactiv e 2023 26475 95074 0 Once daily By Mouth False Senna 8.6 mg tablet 2 tabs By Mouth Once daily For constipation 2 tabs 02/17 Inactiv e 2023 26942 78915 1 Once daily By Mouth False Simvastatin 20 mg tablet [generic] 20 mg By Mouth Once daily For Hyperlipidemi a 20 mg 2023 Active 2023 53010 70866 0 Once daily By Mouth False Spiriva with HandiHaler 18 mcg and inhalation capsules 1 capsule Inhalation Once daily For COPD 1 capsule 2023 Active 2023 39962 12096 1 Once daily Inhala tion False Ventolin HFA 90 mcg/actuati on aerosol inhaler 2 puff Inhalation Every 4 hours as needed For COPD 2 puff 2023 Active 2023 78765 80219 0 Every 4 hours as needed Inhala tion False ProSource No Carb 15 gram-60 kcal/30 mL oral liquid 30ml By Mouth Twice daily For Protien supplement 30ml 01/30 Inactiv e 2023 92320 03629 5 Twice daily By Mouth False Albuterol sulfate 2.5 mg/3 mL (0.083 %) solution for nebulizatio n [generic] 3 ml Inhalation Every 6 hours as needed For wheezing 3 ml 2023 Active 2023 63814 99359 3 Every 6 hours as needed Inhala tion False Acetaminoph en 325 mg tablet [generic] 650 mg By Mouth Every 6 hours For Mild Pain 650 mg 01/29 Inactiv e 2023 43251 04880 0 Every 6 hours By Mouth False Tylenol 325 mg tablet 2 tabs By Mouth Every 4 hours as needed For Pain DO NOT EXCEED 3000 MG APAP/24 Hours 2 tabs 2023 Active 2023 98171 07743 0 Every 4 hours as needed By Mouth False Tylenol 325 mg tablet 2 tabs By Mouth Every 4 hours as needed For Fever >100 DO NOT EXCEED 3000 MG APAP/24 Hours 2 tabs 2023 Active 2023 33194 21766 0 Every 4 hours as needed By Mouth False Dulcolax (bisacodyl) 10 mg rectal suppository One Suppository per rectum PRN if Milk of Magnisia ineffective. Give on day 5 of no BM 1 sup 2023 Active 2023 54051 52821 1 Daily as needed Rectal False Fleet Enema 19 gram-7 gram/118 mL Administer per rectum PRN one time if dulcolax suppository not effective. Give on day 6 of no BM 1 2023 Active 2023 11814 05920 6 Daily as needed Rectal False Milk of Magnesia 400 mg/5 mL oral suspension [Magnesium hydroxide] PRN 30ml By Mouth Daily as needed for constipation one time daily if no BM, on day 4 of no BM (PRN refer to instructions) For Constipation 30 mL 2023 Active 2023 30145 41445 6 Daily as needed By Mouth False Oxycodone 5 mg tablet [generic] 01/29 Inactiv e 2023 98637 32986 1 Oxycodone 5 mg tablet [generic] 5mg By Mouth Every 4 hours as needed for severe pain for pain rate 7-10. For right pubis fracture 5mg 01/31 Inactiv e 2023 91491 12043 1 Every 4 hours as needed By Mouth False Cymbalta 30 mg capsule,del ayed release 30 mg By Mouth Once daily For Depression 30 mg 02/04 Inactiv e 2023 21692 79397 0 Once daily By Mouth False Acetaminoph en 500 mg tablet [generic] 1000 mg By Mouth Twice daily not to exceed 3gm APAP in 24 hours For Pain 1000 mg 2023 Active 2023 08745 93284 8 Twice daily By Mouth False Healthshake 118 ml BID 118 ml By Mouth Twice daily Healthshake 118 ml BID For MNA of 7 - malnourished - please record total ml consumed 118 ml 2023 Active 2023 Twice daily By Mouth False Oxycodone 5 mg tablet [generic] 01/31 Inactiv e 2023 19171 45486 1 Oxycodone 5 mg tablet [generic] 5mg By Mouth Every 4 hours as needed for severe pain for pain rate 7-10. For right pubis fracture 5mg 02/01 Inactiv e 2023 86715 91138 1 Every 4 hours as needed By Mouth False Oxycodone 5 mg tablet [generic] 5mg By Mouth Every 4 hours as needed for severe pain 7-10 For right pubis fx 5mg 2023 Active 2023 12554 51542 1 Every 4 hours as needed By Mouth False Cymbalta 60 mg capsule,del ayed release 60mg Once daily depression 60mg 2023 Active 2023 03080 56992 0 Once daily By Mouth False Enoxaparin 40 mg/0.4 mL subcutaneou s syringe [generic] 20mg Subcutaneous Once daily For anticoag 20mg 2023 Active 2023 10715 21893 0 Once daily Subcut aneous False Losartan 50 mg tablet [generic] 75 mg By Mouth Once daily For ESSENTIAL (PRIMARY) HYPERTENSION 75 mg 02/17 Inactiv e 2023 75276 86697 9 Once daily By Mouth I10. False Losartan 50 mg tablet [generic] 75 mg By Mouth ( 1.5 TABS) Once daily For ESSENTIAL (PRIMARY) HYPERTENSION 75 mg 2023 Active 2023 81985 23686 9 Once daily By Mouth I10. False Senna 8.6 mg tablet 2 tabs By Mouth Once daily As Needed For constipation 2 tabs 2023 Active 2023 16196 48327 1 Once daily By Mouth False Miralax 17 gram/dose oral powder 17 gram By Mouth As Needed For contispation 17 gram 2023 Active 2023 12665 46844 0 By Mouth False OXYCODONE 5 MG [...] For Muscle spasms 175mg 2024 Active 2024 96179 42276 1 Every 6 hours as needed By Mouth False Aspirin 81 mg chewable tablet [generic] 81 mg By Mouth Once daily For AAA 81 mg 2024 Active 2024 92083 29567 6 Once daily By Mouth False Colace 100 mg capsule 100mg By Mouth Twice daily For constipation 100mg 2024 Active 2024 10000 57180 1 Twice daily By Mouth False Simvastatin 20 mg tablet [generic] 20 mg By Mouth Once daily For Hyperlipidemi a 20 mg 2024 Active 2024 47955 93643 0 Once daily By Mouth False Spiriva with HandiHaler 18 mcg and inhalation capsules 1 capsule Inhalation Once daily For COPD 1 capsule 2024 Active 2024 75104 83910 1 Once daily Inhala tion False Ventolin HFA 90 mcg/actuati on aerosol inhaler 2 puff Inhalation Every 4 hours as needed For COPD 2 puff 2024 Active 2024 51279 43925 0 Every 4 hours as needed Inhala tion False Albuterol sulfate 2.5 mg/3 mL (0.083 %) solution for nebulizatio n [generic] 3 ml Inhalation Every 6 hours as needed For wheezing 3 ml 2024 Active 2024 91780 19179 3 Every 6 hours as needed Inhala tion False Tylenol 325 mg tablet 2 tabs By Mouth Every 4 hours as needed For Pain DO NOT EXCEED 3000 MG APAP/24 Hours 2 tabs 2024 Active 2024 49777 09489 0 Every 4 hours as needed By Mouth False Tylenol 325 mg tablet 2 tabs By Mouth Every 4 hours as needed For Fever >100 DO NOT EXCEED 3000 MG APAP/24 Hours 2 tabs 2024 Active 2024 01061 34192 0 Every 4 hours as needed By Mouth False Dulcolax (bisacodyl) 10 mg rectal suppository One Suppository per rectum PRN if Milk of Magnisia ineffective. Give on day 5 of no BM 1 sup 2024 Active 2024 19220 97165 1 Daily as needed Rectal False Fleet Enema 19 gram-7 gram/118 mL Administer per rectum PRN one time if dulcolax suppository not effective. Give on day 6 of no BM 1 2024 Active 2024 79955 53394 6 Daily as needed Rectal False Milk of Magnesia 400 mg/5 mL oral suspension [Magnesium hydroxide] PRN 30ml By Mouth Daily as needed for constipation one time daily if no BM, on day 4 of no BM (PRN refer to instructions) For Constipation 30 mL 2024 Active 2024 26447 89906 6 Daily as needed By Mouth False Acetaminoph en 500 mg tablet [generic] 1000 mg By Mouth Twice daily not to exceed 3gm APAP in 24 hours For Pain 1000 mg 2024 Active 2024 10061 70821 8 Twice daily By Mouth False Healthshake [...] right pubis fx 5mg 2024 Active 2024 87025 05098 1 Every 4 hours as needed By Mouth False Cymbalta 60 mg capsule,del ayed release 60mg Once daily depression 60mg 2024 Active 2024 99665 91927 0 Once daily By Mouth False Enoxaparin 40 mg/0.4 mL subcutaneou s syringe [generic] 20mg Subcutaneous Once daily For anticoag 20mg 2024 Active 2024 24529 65194 0 Once daily Subcut aneous False Losartan 50 mg tablet [generic] 75 mg By Mouth ( 1.5 TABS) Once daily For ESSENTIAL (PRIMARY) HYPERTENSION 75 mg 2024 Active 2024 25751 76881 9 Once daily By Mouth I10. False Senna 8.6 mg tablet 2 tabs By Mouth Once daily As Needed For constipation 2 tabs 2024 Active 2024 76208 19426 1 Once daily By Mouth False Miralax 17 gram/dose oral powder 17 gram By Mouth As Needed For contispation 17 gram 2024 Active 2024 56864 45395 0 By Mouth False OXYCODONE 5 MG [...] For Muscle spasms 175mg 2024 Active 2024 67578 83942 1 Every 6 hours as needed By Mouth False Aspirin 81 mg chewable tablet [generic] 81 mg By Mouth Once daily For AAA 81 mg 2024 Active 2024 46457 40709 6 Once daily By Mouth False Colace 100 mg capsule 100mg By Mouth Twice daily For constipation 100mg 2024 Active 2024 86485 81137 1 Twice daily By Mouth False Simvastatin 20 mg tablet [generic] 20 mg By Mouth Once daily For Hyperlipidemi a 20 mg 2024 Active 2024 84261 56406 0 Once daily By Mouth False Spiriva with HandiHaler 18 mcg and inhalation capsules 1 capsule Inhalation Once daily For COPD 1 capsule 2024 Active 2024 80417 58317 1 Once daily Inhala tion False Ventolin HFA 90 mcg/actuati on aerosol inhaler 2 puff Inhalation Every 4 hours as needed For COPD 2 puff 2024 Active 2024 24220 02039 0 Every 4 hours as needed Inhala tion False Albuterol sulfate 2.5 mg/3 mL (0.083 %) solution for nebulizatio n [generic] 3 ml Inhalation Every 6 hours as needed For wheezing 3 ml 2024 Active 2024 62571 97697 3 Every 6 hours as needed Inhala tion False Tylenol 325 mg tablet 2 tabs By Mouth Every 4 hours as needed For Pain DO NOT EXCEED 3000 MG APAP/24 Hours 2 tabs 2024 Active 2024 57658 25902 0 Every 4 hours as needed By Mouth False Tylenol 325 mg tablet 2 tabs By Mouth Every 4 hours as needed For Fever >100 DO NOT EXCEED 3000 MG APAP/24 Hours 2 tabs 2024 Active 2024 63782 25918 0 Every 4 hours as needed By Mouth False Dulcolax (bisacodyl) 10 mg rectal suppository One Suppository per rectum PRN if Milk of Magnisia ineffective. Give on day 5 of no BM 1 sup 2024 Active 2024 32297 76116 1 Daily as needed Rectal False Fleet Enema 19 gram-7 gram/118 mL Administer per rectum PRN one time if dulcolax suppository not effective. Give on day 6 of no BM 1 2024 Active 2024 78810 02513 6 Daily as needed Rectal False Milk of Magnesia 400 mg/5 mL oral suspension [Magnesium hydroxide] PRN 30ml By Mouth Daily as needed for constipation one time daily if no BM, on day 4 of no BM (PRN refer to instructions) For Constipation 30 mL 2024 Active 2024 25534 81144 6 Daily as needed By Mouth False Acetaminoph en 500 mg tablet [generic] 1000 mg By Mouth Twice daily not to exceed 3gm APAP in 24 hours For Pain 1000 mg 2024 Active 2024 26635 74024 8 Twice daily By Mouth False Healthshake [...] right pubis fx 5mg 2024 Active 2024 73759 27838 1 Every 4 hours as needed By Mouth False Cymbalta 60 mg capsule,del ayed release 60mg Once daily depression 60mg 2024 Active 2024 25846 55951 0 Once daily By Mouth False Enoxaparin 40 mg/0.4 mL subcutaneou s syringe [generic] 20mg Subcutaneous Once daily For anticoag 20mg 2024 Active 2024 75140 76657 0 Once daily Subcut aneous False Losartan 50 mg tablet [generic] 75 mg By Mouth ( 1.5 TABS) Once daily For ESSENTIAL (PRIMARY) HYPERTENSION 75 mg 2024 Active 2024 88204 74707 9 Once daily By Mouth I10. False Senna 8.6 mg tablet 2 tabs By Mouth Once daily As Needed For constipation 2 tabs 2024 Active 2024 53618 50409 1 Once daily By Mouth False Miralax 17 gram/dose oral powder 17 gram By Mouth As Needed For contispation 17 gram 2024 Active 2024 27871 02970 0 By Mouth False Problems Code Description [...] Temperature SpO2 Blood Sugar Pulse Respirations 210 52620 7 78.00 mm[Hg] - Lying Down 186.00 mm[Hg] - Lying Down 109.80 NI 97.90 Forehead Scan 91.00 % 92.00/ min 18.00/min 210 43984 1 74.00 mm[Hg] - Lying Down 147.00 mm[Hg] - Lying Down 85.00/ min 211 85079 2 72.00 mm[Hg] - Sitting 138.00 mm[Hg] - Sitting 98.40 Tympanic 86.00/ min 18.00/min 77870 211 31375 2 59.00 mm[Hg] - Sitting 117.00 mm[Hg] - Sitting 98.20 Tympanic 99.00 % 81.00/ min 18.00/min 84770 211 70847 5 69.00 mm[Hg] - Sitting 145.00 mm[Hg] - Sitting 71102 211 08169 9 69.00 mm[Hg] - Sitting 145.00 mm[Hg] - Sitting 96437 211 45870 5 69.00 mm[Hg] - Sitting 145.00 mm[Hg] - Sitting 02683 211 70410 6 69.00 mm[Hg] - Sitting 00101 212 39130 7 59.00 mm[Hg] - Sitting 117.00 mm[Hg] - Sitting 98.20 Tympanic 81.00/ min 18.00/min 13292 212 61524 9 97.80 Tympanic 55099 212 52609 6 55.00 mm[Hg] - Sitting 109.00 mm[Hg] - Sitting 97.30 Tympanic 94.00 % 75.00/ min 18.00/min 27165 212 36686 5 68.00 mm[Hg] - Sitting 128.00 mm[Hg] - Sitting 97.80 Tympanic 80.00/ min 18.00/min 93156 212 75225 4 97.50 Tympanic 40164 212 65349 9 99787 212 28272 6 71.00 mm[Hg] - Sitting 117.00 mm[Hg] - Sitting 90966 213 47092 0 60.00 mm[Hg] - Sitting 116.00 mm[Hg] - Sitting 98.40 Forehead Scan 94.00 % 72.00/ min 16.00/min 52130 213 03279 7 70.00 mm[Hg] - Sitting 118.00 mm[Hg] - Sitting 98.00 Tympanic 82.00/ min 18.00/min 76776 213 54002 3 97.90 Tympanic 07736 213 15173 5 73.00 mm[Hg] - Lying Down 127.00 mm[Hg] - Lying Down 52981 213 43045 3 08328 214 10542 1 62.00 mm[Hg] - Sitting 127.00 mm[Hg] - Sitting 97.80 Tympanic 94.00 % 72.00/ min 16.00/min 44019 214 41590 4 59.00 mm[Hg] - Lying Down 113.00 mm[Hg] - Lying Down 39722 215 79622 0 56.00 mm[Hg] - Sitting 101.00 mm[Hg] - Sitting 97.80 Tympanic 95.00 % 71.00/ min 16.00/min 48473 215 16508 5 62 NI 82912 215 55515 8 57.00 mm[Hg] - Lying Down 113.00 mm[Hg] - Lying Down 94723 216 37871 3 71.00 mm[Hg] - Sitting 161.00 mm[Hg] - Sitting 98.10 Tympanic 93.00 % 81.00/ min 16.00/min 09083 216 10024 1 72.00 mm[Hg] - Sitting 115.00 mm[Hg] - Sitting 78085 217 65808 2 61920 217 67401 4 62.00 mm[Hg] - Sitting 112.00 mm[Hg] - Sitting 34300 217 47581 3 57.00 mm[Hg] - Sitting 114.00 mm[Hg] - Sitting 98.30 Tympanic 98.00 % 78.00/ min 20.00/min 65059 217 80501 4 62.00 mm[Hg] - Lying Down 111.00 mm[Hg] - Lying Down 75023 218 31064 0 70.00 mm[Hg] - Sitting 158.00 mm[Hg] - Sitting 97.60 Tympanic 97.00 % 68.00/ min 18.00/min 15299 218 20520 5 65.00 mm[Hg] - Lying Down 113.00 mm[Hg] - Lying Down 80527 219 02189 1 67.00 mm[Hg] - Sitting 112.00 mm[Hg] - Sitting 02542 220 56266 0 82.00 mm[Hg] - Sitting 160.00 mm[Hg] - Sitting 97.90 Forehead Scan 95.00 % 87.00/ min 16.00/min 52243 220 56245 7 69.00 mm[Hg] - Sitting 119.00 mm[Hg] - Sitting 24479 221 78289 1 82.00 mm[Hg] - Sitting 156.00 mm[Hg] - Sitting 98.20 Tympanic 95.00 % 72.00/ min 18.00/min 08889 221 96848 1 78.00 mm[Hg] - Sitting 148.00 mm[Hg] - Sitting 43228 222 66872 0 81.00 mm[Hg] - Sitting 161.00 mm[Hg] - Sitting 97.70 Tympanic 94.00 % 80.00/ min 18.00/min 69773 222 06665 3 87.00 mm[Hg] - Sitting 141.00 mm[Hg] - Sitting 98484 223 02516 9 68.00 mm[Hg] - Sitting 138.00 mm[Hg] - Sitting 98.10 Tympanic 92.00 % 85.00/ min 18.00/min 95801 223 53707 4 67.00 mm[Hg] - Sitting 128.00 mm[Hg] - Sitting 10404 224 05219 6 13966 224 21445 5 73.00 mm[Hg] - Lying Down 151.00 mm[Hg] - Lying Down 98.40 Tympanic 95.00 % 75.00/ min 18.00/min 224 98659 3 63.00 mm[Hg] - Sitting 124.00 mm[Hg] - Sitting 225 26765 1 97.30 Tympanic 95.00 % 72.00/ min 20.00/min 225 11623 6 67.00 mm[Hg] - Sitting 132.00 mm[Hg] - Sitting 226 55621 2 67.00 mm[Hg] - Sitting 121.00 mm[Hg] - Sitting 63773 227 49122 0 70.00 mm[Hg] - Sitting 137.00 mm[Hg] - Sitting 98.70 Forehead Scan 96.00 % 70.00/ min 16.00/min 227 98323 6 69.00 mm[Hg] - Sitting 131.00 mm[Hg] - Sitting 11120 228 14287 7 79.00 mm[Hg] - Lying Down 181.00 mm[Hg] - Lying Down 98.40 Tympanic 98.00 % 75.00/ min 20.00/min 20126 228 48824 1 68.00 mm[Hg] - Lying Down 130.00 mm[Hg] - Lying Down 77678 229 02428 6 80.00 mm[Hg] - Lying Down 183.00 mm[Hg] - Lying Down 98.60 Tympanic 97.00 % 75.00/ min 16.00/min 71073 229 74443 4 74.00 mm[Hg] - Lying Down 161.00 mm[Hg] - Lying Down 77.00/ min 229 70800 9 87.00 mm[Hg] - Sitting 175.00 mm[Hg] - Sitting 50408 230 09632 7 83.00 mm[Hg] - Sitting 186.00 mm[Hg] - Sitting 98.30 Tympanic 94.00 % 86.00/ min 18.00/min 99638 230 24280 6 70.00 mm[Hg] - Sitting 125.00 mm[Hg] - Sitting 91470 231 00337 8 54017 231 75685 4 77.00 mm[Hg] - Sitting 159.00 mm[Hg] - Sitting 98.70 Tympanic 95.00 % 78.00/ min 18.00/min 79366 231 23537 8 77.00 mm[Hg] - Sitting 139.00 mm[Hg] - Sitting 49480 101 16129 3 98.40 Tympanic 95.00 % 85.00/ min 20.00/min 64560 101 20413 5 107.00 NI 98.40 Tympanic 86.00/ min 20.00/min 99682 101 26339 7 107.00 NI 98.40 Tympanic 86.00/ min 20.00/min 37989 101 32218 2 72.00 mm[Hg] - Sitting 136.00 mm[Hg] - Sitting 36013 102 51817 8 77.00 mm[Hg] - Sitting 160.00 mm[Hg] - Sitting 98.20 Tympanic 94.00 % 83.00/ min 18.00/min 68567 102 67436 4 67.00 mm[Hg] - Sitting 132.00 mm[Hg] - Sitting 95540 103 37437 0 98.60 Forehead Scan 97.00 % 86.00/ min 16.00/min 56434 103 35555 0 81.00 mm[Hg] - Sitting 130.00 mm[Hg] - Sitting 02366 104 17710 7 73.00 mm[Hg] - Sitting 124.00 mm[Hg] - Sitting
--- OUTSIDE RECORDS SUMMARY | 2024-04-10 03:13 | External Medical Summary | Continuity Of Care Document ---
Author Name Unknown Address [address] [address] Organization [facility] () Care Team Providers [facility] [employer] [facility] Name Role Phone DO Alonso Amy Primary Care Provider [phone] Allergies Allergy Reaction Start Date End Date [...] 3 0.1 mL 01/29 Inactiv e 2023 55825 [id number] 0 1 time Intrad ermal False Tubersol 5 tub. unit/0.1 mL intradermal injection solution [Tuberculin PPD] 0.1mL Intradermal 1 time For PPD 2nd Step Give 2nd Step PPD Day 1 and Read results Day 3 (schedule 7 days after 1st READ) 0.1mL 02/07 Inactiv e 2023 74295 83094 0 1 time Intrad ermal False Oxycodone 5 mg tablet [generic] 5mg By Mouth Every 4 hours as needed for severe pain for pain rate 7-10. For right pubis fracture 5mg 01/27 Inactiv e 2023 00150 19461 1 Every 4 hours as needed By Mouth False OXYCODONE 5 MG TABLET [GENERIC]IM MEDIATE RELEASE 2.5mg By Mouth Every 4 hours as needed tablet po for moderate pain, pain rate 4-6 on pain scale 1-10. For pain 2.5mg 01/27 Inactiv e 2023 Every 4 hours as needed By Mouth False Oxycodone 5 mg tablet [generic] 01/27 Inactiv e 2023 95719 32774 1 Oxycodone 5 mg tablet [generic] 5mg By Mouth Every 4 hours as needed for severe pain for pain rate 7-10. For right pubis fracture 5mg 01/29 Inactiv e 2023 37159 89239 1 Every 4 hours as needed By [...] For Muscle spasms 175mg 2023 Active 2023 86837 97420 1 Every 6 hours as needed By Mouth False Cephalexin 500 mg capsule [generic] 500mg By Mouth Every 8 hours For UTI 500mg 01/30 Inactiv e 2023 19983 31035 1 Every 8 hours By Mouth False Aspirin 81 mg chewable tablet [generic] 81 mg By Mouth Once daily For AAA 81 mg 2023 Active 2023 50157 31053 6 Once daily By Mouth False Colace 100 mg capsule 100mg By Mouth Twice daily For constipation 100mg 2023 Active 2023 15297 89057 1 Twice daily By Mouth False Enoxaparin 300 mg/3 mL subcutaneou s solution [generic] 20mg Subcutaneous Once daily For anticoag. 20mg 02/06 Inactiv e 2023 01329 32090 1 Once daily Subcut aneous False Losartan 50 mg tablet [generic] 50 By Mouth Once daily For HTN 50 02/16 Inactiv e 2023 18585 37631 9 Once daily By Mouth False Miralax 17 gram/dose oral powder 17 gram By Mouth Once daily For contispation 17 gram 02/17 Inactiv e 2023 27259 78791 0 Once daily By Mouth False Senna 8.6 mg tablet 2 tabs By Mouth Once daily For constipation 2 tabs 02/17 Inactiv e 2023 65613 60387 1 Once daily By Mouth False Simvastatin 20 mg tablet [generic] 20 mg By Mouth Once daily For Hyperlipidemi a 20 mg 2023 Active 2023 30369 76302 0 Once daily By Mouth False Spiriva with HandiHaler 18 mcg and inhalation capsules 1 capsule Inhalation Once daily For COPD 1 capsule 2023 Active 2023 64615 47432 1 Once daily Inhala tion False Ventolin HFA 90 mcg/actuati on aerosol inhaler 2 puff Inhalation Every 4 hours as needed For COPD 2 puff 2023 Active 2023 71398 54212 0 Every 4 hours as needed Inhala tion False ProSource No Carb 15 gram-60 kcal/30 mL oral liquid 30ml By Mouth Twice daily For Protien supplement 30ml 01/30 Inactiv e 2023 76669 97713 5 Twice daily By Mouth False Albuterol sulfate 2.5 mg/3 mL (0.083 %) solution for nebulizatio n [generic] 3 ml Inhalation Every 6 hours as needed For wheezing 3 ml 2023 Active 2023 49899 84202 3 Every 6 hours as needed Inhala tion False Acetaminoph en 325 mg tablet [generic] 650 mg By Mouth Every 6 hours For Mild Pain 650 mg 01/29 Inactiv e 2023 51443 00500 0 Every 6 hours By Mouth False Tylenol 325 mg tablet 2 tabs By Mouth Every 4 hours as needed For Pain DO NOT EXCEED 3000 MG APAP/24 Hours 2 tabs 2023 Active 2023 25127 31748 0 Every 4 hours as needed By Mouth False Tylenol 325 mg tablet 2 tabs By Mouth Every 4 hours as needed For Fever >100 DO NOT EXCEED 3000 MG APAP/24 Hours 2 tabs 2023 Active 2023 48521 00229 0 Every 4 hours as needed By Mouth False Dulcolax (bisacodyl) 10 mg rectal suppository One Suppository per rectum PRN if Milk of Magnisia ineffective. Give on day 5 of no BM 1 sup 2023 Active 2023 87349 93420 1 Daily as needed Rectal False Fleet Enema 19 gram-7 gram/118 mL Administer per rectum PRN one time if dulcolax suppository not effective. Give on day 6 of no BM 1 2023 Active 2023 66048 38934 6 Daily as needed Rectal False Milk of Magnesia 400 mg/5 mL oral suspension [Magnesium hydroxide] PRN 30ml By Mouth Daily as needed for constipation one time daily if no BM, on day 4 of no BM (PRN refer to instructions) For Constipation 30 mL 2023 Active 2023 80175 32687 6 Daily as needed By Mouth False Oxycodone 5 mg tablet [generic] 01/29 Inactiv e 2023 81257 59315 1 Oxycodone 5 mg tablet [generic] 5mg By Mouth Every 4 hours as needed for severe pain for pain rate 7-10. For right pubis fracture 5mg 01/31 Inactiv e 2023 83161 26018 1 Every 4 hours as needed By Mouth False Cymbalta 30 mg capsule,del ayed release 30 mg By Mouth Once daily For Depression 30 mg 02/04 Inactiv e 2023 87538 01407 0 Once daily By Mouth False Acetaminoph en 500 mg tablet [generic] 1000 mg By Mouth Twice daily not to exceed 3gm APAP in 24 hours For Pain 1000 mg 2023 Active 2023 68532 09568 8 Twice daily By Mouth False Healthshake 118 ml BID 118 ml By Mouth Twice daily Healthshake 118 ml BID For MNA of 7 - malnourished - please record total ml consumed 118 ml 2023 Active 2023 Twice daily By Mouth False Oxycodone 5 mg tablet [generic] 01/31 Inactiv e 2023 19411 32564 1 Oxycodone 5 mg tablet [generic] 5mg By Mouth Every 4 hours as needed for severe pain for pain rate 7-10. For right pubis fracture 5mg 02/01 Inactiv e 2023 09400 88024 1 Every 4 hours as needed By Mouth False Oxycodone 5 mg tablet [generic] 5mg By Mouth Every 4 hours as needed for severe pain 7-10 For right pubis fx 5mg 2023 Active 2023 84117 86290 1 Every 4 hours as needed By Mouth False Cymbalta 60 mg capsule,del ayed release 60mg Once daily depression 60mg 2023 Active 2023 17504 27416 0 Once daily By Mouth False Enoxaparin 40 mg/0.4 mL subcutaneou s syringe [generic] 20mg Subcutaneous Once daily For anticoag 20mg 2023 Active 2023 58860 15622 0 Once daily Subcut aneous False Losartan 50 mg tablet [generic] 75 mg By Mouth Once daily For ESSENTIAL (PRIMARY) HYPERTENSION 75 mg 02/17 Inactiv e 2023 25384 25863 9 Once daily By Mouth I10. False Losartan 50 mg tablet [generic] 75 mg By Mouth ( 1.5 TABS) Once daily For ESSENTIAL (PRIMARY) HYPERTENSION 75 mg 2023 Active 2023 22421 15520 9 Once daily By Mouth I10. False Senna 8.6 mg tablet 2 tabs By Mouth Once daily As Needed For constipation 2 tabs 2023 Active 2023 73725 79615 1 Once daily By Mouth False Miralax 17 gram/dose oral powder 17 gram By Mouth As Needed For contispation 17 gram 2023 Active 2023 63362 33248 0 By Mouth False OXYCODONE 5 MG [...] For Muscle spasms 175mg 2024 Active 2024 55931 83037 1 Every 6 hours as needed By Mouth False Aspirin 81 mg chewable tablet [generic] 81 mg By Mouth Once daily For AAA 81 mg 2024 Active 2024 41913 86466 6 Once daily By Mouth False Colace 100 mg capsule 100mg By Mouth Twice daily For constipation 100mg 2024 Active 2024 03083 95113 1 Twice daily By Mouth False Simvastatin 20 mg tablet [generic] 20 mg By Mouth Once daily For Hyperlipidemi a 20 mg 2024 Active 2024 53348 01833 0 Once daily By Mouth False Spiriva with HandiHaler 18 mcg and inhalation capsules 1 capsule Inhalation Once daily For COPD 1 capsule 2024 Active 2024 26405 78588 1 Once daily Inhala tion False Ventolin HFA 90 mcg/actuati on aerosol inhaler 2 puff Inhalation Every 4 hours as needed For COPD 2 puff 2024 Active 2024 42175 81765 0 Every 4 hours as needed Inhala tion False Albuterol sulfate 2.5 mg/3 mL (0.083 %) solution for nebulizatio n [generic] 3 ml Inhalation Every 6 hours as needed For wheezing 3 ml 2024 Active 2024 75538 73997 3 Every 6 hours as needed Inhala tion False Tylenol 325 mg tablet 2 tabs By Mouth Every 4 hours as needed For Pain DO NOT EXCEED 3000 MG APAP/24 Hours 2 tabs 2024 Active 2024 17535 98508 0 Every 4 hours as needed By Mouth False Tylenol 325 mg tablet 2 tabs By Mouth Every 4 hours as needed For Fever >100 DO NOT EXCEED 3000 MG APAP/24 Hours 2 tabs 2024 Active 2024 61679 26599 0 Every 4 hours as needed By Mouth False Dulcolax (bisacodyl) 10 mg rectal suppository One Suppository per rectum PRN if Milk of Magnisia ineffective. Give on day 5 of no BM 1 sup 2024 Active 2024 11140 10476 1 Daily as needed Rectal False Fleet Enema 19 gram-7 gram/118 mL Administer per rectum PRN one time if dulcolax suppository not effective. Give on day 6 of no BM 1 2024 Active 2024 03959 24180 6 Daily as needed Rectal False Milk of Magnesia 400 mg/5 mL oral suspension [Magnesium hydroxide] PRN 30ml By Mouth Daily as needed for constipation one time daily if no BM, on day 4 of no BM (PRN refer to instructions) For Constipation 30 mL 2024 Active 2024 17199 13871 6 Daily as needed By Mouth False Acetaminoph en 500 mg tablet [generic] 1000 mg By Mouth Twice daily not to exceed 3gm APAP in 24 hours For Pain 1000 mg 2024 Active 2024 03438 46688 8 Twice daily By Mouth False Healthshake [...] right pubis fx 5mg 2024 Active 2024 08586 67663 1 Every 4 hours as needed By Mouth False Cymbalta 60 mg capsule,del ayed release 60mg Once daily depression 60mg 2024 Active 2024 11616 74381 0 Once daily By Mouth False Enoxaparin 40 mg/0.4 mL subcutaneou s syringe [generic] 20mg Subcutaneous Once daily For anticoag 20mg 2024 Active 2024 83958 57259 0 Once daily Subcut aneous False Losartan 50 mg tablet [generic] 75 mg By Mouth ( 1.5 TABS) Once daily For ESSENTIAL (PRIMARY) HYPERTENSION 75 mg 2024 Active 2024 56308 76088 9 Once daily By Mouth I10. False Senna 8.6 mg tablet 2 tabs By Mouth Once daily As Needed For constipation 2 tabs 2024 Active 2024 52678 38035 1 Once daily By Mouth False Miralax 17 gram/dose oral powder 17 gram By Mouth As Needed For contispation 17 gram 2024 Active 2024 81904 67963 0 By Mouth False OXYCODONE 5 MG [...] For Muscle spasms 175mg 2024 Active 2024 35240 98617 1 Every 6 hours as needed By Mouth False Aspirin 81 mg chewable tablet [generic] 81 mg By Mouth Once daily For AAA 81 mg 2024 Active 2024 09679 89583 6 Once daily By Mouth False Colace 100 mg capsule 100mg By Mouth Twice daily For constipation 100mg 2024 Active 2024 27858 17875 1 Twice daily By Mouth False Simvastatin 20 mg tablet [generic] 20 mg By Mouth Once daily For Hyperlipidemi a 20 mg 2024 Active 2024 22210 41605 0 Once daily By Mouth False Spiriva with HandiHaler 18 mcg and inhalation capsules 1 capsule Inhalation Once daily For COPD 1 capsule 2024 Active 2024 44991 23748 1 Once daily Inhala tion False Ventolin HFA 90 mcg/actuati on aerosol inhaler 2 puff Inhalation Every 4 hours as needed For COPD 2 puff 2024 Active 2024 38023 43962 0 Every 4 hours as needed Inhala tion False Albuterol sulfate 2.5 mg/3 mL (0.083 %) solution for nebulizatio n [generic] 3 ml Inhalation Every 6 hours as needed For wheezing 3 ml 2024 Active 2024 52041 31768 3 Every 6 hours as needed Inhala tion False Tylenol 325 mg tablet 2 tabs By Mouth Every 4 hours as needed For Pain DO NOT EXCEED 3000 MG APAP/24 Hours 2 tabs 2024 Active 2024 86678 95359 0 Every 4 hours as needed By Mouth False Tylenol 325 mg tablet 2 tabs By Mouth Every 4 hours as needed For Fever >100 DO NOT EXCEED 3000 MG APAP/24 Hours 2 tabs 2024 Active 2024 08736 96244 0 Every 4 hours as needed By Mouth False Dulcolax (bisacodyl) 10 mg rectal suppository One Suppository per rectum PRN if Milk of Magnisia ineffective. Give on day 5 of no BM 1 sup 2024 Active 2024 67291 98126 1 Daily as needed Rectal False Fleet Enema 19 gram-7 gram/118 mL Administer per rectum PRN one time if dulcolax suppository not effective. Give on day 6 of no BM 1 2024 Active 2024 78573 81433 6 Daily as needed Rectal False Milk of Magnesia 400 mg/5 mL oral suspension [Magnesium hydroxide] PRN 30ml By Mouth Daily as needed for constipation one time daily if no BM, on day 4 of no BM (PRN refer to instructions) For Constipation 30 mL 2024 Active 2024 60442 67951 6 Daily as needed By Mouth False Acetaminoph en 500 mg tablet [generic] 1000 mg By Mouth Twice daily not to exceed 3gm APAP in 24 hours For Pain 1000 mg 2024 Active 2024 27052 81988 8 Twice daily By Mouth False Healthshake [...] right pubis fx 5mg 2024 Active 2024 75508 33170 1 Every 4 hours as needed By Mouth False Cymbalta 60 mg capsule,del ayed release 60mg Once daily depression 60mg 2024 Active 2024 59368 53703 0 Once daily By Mouth False Enoxaparin 40 mg/0.4 mL subcutaneou s syringe [generic] 20mg Subcutaneous Once daily For anticoag 20mg 2024 Active 2024 66994 26892 0 Once daily Subcut aneous False Losartan 50 mg tablet [generic] 75 mg By Mouth ( 1.5 TABS) Once daily For ESSENTIAL (PRIMARY) HYPERTENSION 75 mg 2024 Active 2024 19207 11231 9 Once daily By Mouth I10. False Senna 8.6 mg tablet 2 tabs By Mouth Once daily As Needed For constipation 2 tabs 2024 Active 2024 50550 24509 1 Once daily By Mouth False Miralax 17 gram/dose oral powder 17 gram By Mouth As Needed For contispation 17 gram 2024 Active 2024 49041 91074 0 By Mouth False Problems Code Description [...] Temperature SpO2 Blood Sugar Pulse Respirations 210 13168 7 78.00 mm[Hg] - Lying Down 186.00 mm[Hg] - Lying Down 109.80 NI 97.90 Forehead Scan 91.00 % 92.00/ min 18.00/min 210 46884 1 74.00 mm[Hg] - Lying Down 147.00 mm[Hg] - Lying Down 85.00/ min 211 88116 2 72.00 mm[Hg] - Sitting 138.00 mm[Hg] - Sitting 98.40 Tympanic 86.00/ min 18.00/min 20265 211 78830 2 59.00 mm[Hg] - Sitting 117.00 mm[Hg] - Sitting 98.20 Tympanic 99.00 % 81.00/ min 18.00/min 82466 211 60913 5 69.00 mm[Hg] - Sitting 145.00 mm[Hg] - Sitting 03827 211 60552 9 69.00 mm[Hg] - Sitting 145.00 mm[Hg] - Sitting 13232 211 03731 5 69.00 mm[Hg] - Sitting 145.00 mm[Hg] - Sitting 08666 211 26179 6 69.00 mm[Hg] - Sitting 53702 212 20575 7 59.00 mm[Hg] - Sitting 117.00 mm[Hg] - Sitting 98.20 Tympanic 81.00/ min 18.00/min 81925 212 40907 9 97.80 Tympanic 27867 212 81806 6 55.00 mm[Hg] - Sitting 109.00 mm[Hg] - Sitting 97.30 Tympanic 94.00 % 75.00/ min 18.00/min 42850 212 65859 5 68.00 mm[Hg] - Sitting 128.00 mm[Hg] - Sitting 97.80 Tympanic 80.00/ min 18.00/min 56419 212 28699 4 97.50 Tympanic 54675 212 49250 9 96689 212 11446 6 71.00 mm[Hg] - Sitting 117.00 mm[Hg] - Sitting 82493 213 34844 0 60.00 mm[Hg] - Sitting 116.00 mm[Hg] - Sitting 98.40 Forehead Scan 94.00 % 72.00/ min 16.00/min 64693 213 40001 7 70.00 mm[Hg] - Sitting 118.00 mm[Hg] - Sitting 98.00 Tympanic 82.00/ min 18.00/min 90314 213 15645 3 97.90 Tympanic 41348 213 97234 5 73.00 mm[Hg] - Lying Down 127.00 mm[Hg] - Lying Down 04491 213 72742 3 10616 214 45102 1 62.00 mm[Hg] - Sitting 127.00 mm[Hg] - Sitting 97.80 Tympanic 94.00 % 72.00/ min 16.00/min 70610 214 49290 4 59.00 mm[Hg] - Lying Down 113.00 mm[Hg] - Lying Down 68723 215 68649 0 56.00 mm[Hg] - Sitting 101.00 mm[Hg] - Sitting 97.80 Tympanic 95.00 % 71.00/ min 16.00/min 75792 215 55429 5 62 NI 34437 215 59066 8 57.00 mm[Hg] - Lying Down 113.00 mm[Hg] - Lying Down 95277 216 04702 3 71.00 mm[Hg] - Sitting 161.00 mm[Hg] - Sitting 98.10 Tympanic 93.00 % 81.00/ min 16.00/min 68679 216 72596 1 72.00 mm[Hg] - Sitting 115.00 mm[Hg] - Sitting 72995 217 43443 2 73204 217 19254 4 62.00 mm[Hg] - Sitting 112.00 mm[Hg] - Sitting 15425 217 27574 3 57.00 mm[Hg] - Sitting 114.00 mm[Hg] - Sitting 98.30 Tympanic 98.00 % 78.00/ min 20.00/min 89538 217 86408 4 62.00 mm[Hg] - Lying Down 111.00 mm[Hg] - Lying Down 82114 218 94593 0 70.00 mm[Hg] - Sitting 158.00 mm[Hg] - Sitting 97.60 Tympanic 97.00 % 68.00/ min 18.00/min 77504 218 56545 5 65.00 mm[Hg] - Lying Down 113.00 mm[Hg] - Lying Down 35194 219 39003 1 67.00 mm[Hg] - Sitting 112.00 mm[Hg] - Sitting 53873 220 02489 0 82.00 mm[Hg] - Sitting 160.00 mm[Hg] - Sitting 97.90 Forehead Scan 95.00 % 87.00/ min 16.00/min 25718 220 89212 7 69.00 mm[Hg] - Sitting 119.00 mm[Hg] - Sitting 58241 221 62893 1 82.00 mm[Hg] - Sitting 156.00 mm[Hg] - Sitting 98.20 Tympanic 95.00 % 72.00/ min 18.00/min 15007 221 32463 1 78.00 mm[Hg] - Sitting 148.00 mm[Hg] - Sitting 67919 222 46418 0 81.00 mm[Hg] - Sitting 161.00 mm[Hg] - Sitting 97.70 Tympanic 94.00 % 80.00/ min 18.00/min 90163 222 95496 3 87.00 mm[Hg] - Sitting 141.00 mm[Hg] - Sitting 33710 223 31851 9 68.00 mm[Hg] - Sitting 138.00 mm[Hg] - Sitting 98.10 Tympanic 92.00 % 85.00/ min 18.00/min 02579 223 87061 4 67.00 mm[Hg] - Sitting 128.00 mm[Hg] - Sitting 14905 224 02772 6 32134 224 34169 5 73.00 mm[Hg] - Lying Down 151.00 mm[Hg] - Lying Down 98.40 Tympanic 95.00 % 75.00/ min 18.00/min 224 43145 3 63.00 mm[Hg] - Sitting 124.00 mm[Hg] - Sitting 225 58750 1 97.30 Tympanic 95.00 % 72.00/ min 20.00/min 225 00187 6 67.00 mm[Hg] - Sitting 132.00 mm[Hg] - Sitting 226 61754 2 67.00 mm[Hg] - Sitting 121.00 mm[Hg] - Sitting 04063 227 88470 0 70.00 mm[Hg] - Sitting 137.00 mm[Hg] - Sitting 98.70 Forehead Scan 96.00 % 70.00/ min 16.00/min 227 41689 6 69.00 mm[Hg] - Sitting 131.00 mm[Hg] - Sitting 61583 228 63363 7 79.00 mm[Hg] - Lying Down 181.00 mm[Hg] - Lying Down 98.40 Tympanic 98.00 % 75.00/ min 20.00/min 38852 228 86786 1 68.00 mm[Hg] - Lying Down 130.00 mm[Hg] - Lying Down 21351 229 82453 6 80.00 mm[Hg] - Lying Down 183.00 mm[Hg] - Lying Down 98.60 Tympanic 97.00 % 75.00/ min 16.00/min 39100 229 24466 4 74.00 mm[Hg] - Lying Down 161.00 mm[Hg] - Lying Down 77.00/ min 229 45664 9 87.00 mm[Hg] - Sitting 175.00 mm[Hg] - Sitting 63750 230 09272 7 83.00 mm[Hg] - Sitting 186.00 mm[Hg] - Sitting 98.30 Tympanic 94.00 % 86.00/ min 18.00/min 65282 230 11550 6 70.00 mm[Hg] - Sitting 125.00 mm[Hg] - Sitting 95266 231 56861 8 53030 231 72111 4 77.00 mm[Hg] - Sitting 159.00 mm[Hg] - Sitting 98.70 Tympanic 95.00 % 78.00/ min 18.00/min 95380 231 76323 8 77.00 mm[Hg] - Sitting 139.00 mm[Hg] - Sitting 43241 101 38537 3 98.40 Tympanic 95.00 % 85.00/ min 20.00/min 01991 101 53907 5 107.00 NI 98.40 Tympanic 86.00/ min 20.00/min 15912 101 98228 7 107.00 NI 98.40 Tympanic 86.00/ min 20.00/min 87650 101 70334 2 72.00 mm[Hg] - Sitting 136.00 mm[Hg] - Sitting 44470 102 25337 8 77.00 mm[Hg] - Sitting 160.00 mm[Hg] - Sitting 98.20 Tympanic 94.00 % 83.00/ min 18.00/min 44018 102 92906 4 67.00 mm[Hg] - Sitting 132.00 mm[Hg] - Sitting 33474 103 63482 0 98.60 Forehead Scan 97.00 % 86.00/ min 16.00/min 81023 103 33695 0 81.00 mm[Hg] - Sitting 130.00 mm[Hg] - Sitting 95325 104 27592 7 73.00 mm[Hg] - Sitting 124.00 mm[Hg] - Sitting
--- OUTSIDE RECORDS SUMMARY | 2024-04-10 03:13 | External Medical Summary | Continuity Of Care Document ---
Author Name Unknown Address [address] [address] Organization [facility] () Care Team Providers Care Airline Hostess Name Role Phone DO Alonso Amy Primary Care Provider [phone] Allergies Allergy Reaction Start Date End Date [...] 3 0.1 mL 01/29 Inactiv e 2023 57514 26440 0 1 time Intrad ermal False Tubersol 5 tub. unit/0.1 mL intradermal injection solution [Tuberculin PPD] 0.1mL Intradermal 1 time For PPD 2nd Step Give 2nd Step PPD Day 1 and Read results Day 3 (schedule 7 days after 1st READ) 0.1mL 02/07 Inactiv e 2023 49086 23340 0 1 time Intrad ermal False Oxycodone 5 mg tablet [generic] 5mg By Mouth Every 4 hours as needed for severe pain for pain rate 7-10. For right pubis fracture 5mg 01/27 Inactiv e 2023 14780 08642 1 Every 4 hours as needed By Mouth False OXYCODONE 5 MG TABLET [GENERIC]IM MEDIATE RELEASE 2.5mg By Mouth Every 4 hours as needed tablet po for moderate pain, pain rate 4-6 on pain scale 1-10. For pain 2.5mg 01/27 Inactiv e 2023 Every 4 hours as needed By Mouth False Oxycodone 5 mg tablet [generic] 01/27 Inactiv e 2023 41461 69852 1 Oxycodone 5 mg tablet [generic] 5mg By Mouth Every 4 hours as needed for severe pain for pain rate 7-10. For right pubis fracture 5mg 01/29 Inactiv e 2023 61910 92533 1 Every 4 hours as needed By [...] For Muscle spasms 175mg 2023 Active 2023 92945 53688 1 Every 6 hours as needed By Mouth False Cephalexin 500 mg capsule [generic] 500mg By Mouth Every 8 hours For UTI 500mg 01/30 Inactiv e 2023 54661 73925 1 Every 8 hours By Mouth False Aspirin 81 mg chewable tablet [generic] 81 mg By Mouth Once daily For AAA 81 mg 2023 Active 2023 21207 57049 6 Once daily By Mouth False Colace 100 mg capsule 100mg By Mouth Twice daily For constipation 100mg 2023 Active 2023 65389 67822 1 Twice daily By Mouth False Enoxaparin 300 mg/3 mL subcutaneou s solution [generic] 20mg Subcutaneous Once daily For anticoag. 20mg 02/06 Inactiv e 2023 51474 32969 1 Once daily Subcut aneous False Losartan 50 mg tablet [generic] 50 By Mouth Once daily For HTN 50 02/16 Inactiv e 2023 82104 30069 9 Once daily By Mouth False Miralax 17 gram/dose oral powder 17 gram By Mouth Once daily For contispation 17 gram 02/17 Inactiv e 2023 28902 35913 0 Once daily By Mouth False Senna 8.6 mg tablet 2 tabs By Mouth Once daily For constipation 2 tabs 02/17 Inactiv e 2023 31069 24360 1 Once daily By Mouth False Simvastatin 20 mg tablet [generic] 20 mg By Mouth Once daily For Hyperlipidemi a 20 mg 2023 Active 2023 73751 26859 0 Once daily By Mouth False Spiriva with HandiHaler 18 mcg and inhalation capsules 1 capsule Inhalation Once daily For COPD 1 capsule 2023 Active 2023 10805 53448 1 Once daily Inhala tion False Ventolin HFA 90 mcg/actuati on aerosol inhaler 2 puff Inhalation Every 4 hours as needed For COPD 2 puff 2023 Active 2023 14515 10009 0 Every 4 hours as needed Inhala tion False ProSource No Carb 15 gram-60 kcal/30 mL oral liquid 30ml By Mouth Twice daily For Protien supplement 30ml 01/30 Inactiv e 2023 78841 83394 5 Twice daily By Mouth False Albuterol sulfate 2.5 mg/3 mL (0.083 %) solution for nebulizatio n [generic] 3 ml Inhalation Every 6 hours as needed For wheezing 3 ml 2023 Active 2023 73983 24412 3 Every 6 hours as needed Inhala tion False Acetaminoph en 325 mg tablet [generic] 650 mg By Mouth Every 6 hours For Mild Pain 650 mg 01/29 Inactiv e 2023 18718 80688 0 Every 6 hours By Mouth False Tylenol 325 mg tablet 2 tabs By Mouth Every 4 hours as needed For Pain DO NOT EXCEED 3000 MG APAP/24 Hours 2 tabs 2023 Active 2023 78847 86435 0 Every 4 hours as needed By Mouth False Tylenol 325 mg tablet 2 tabs By Mouth Every 4 hours as needed For Fever >100 DO NOT EXCEED 3000 MG APAP/24 Hours 2 tabs 2023 Active 2023 36392 02431 0 Every 4 hours as needed By Mouth False Dulcolax (bisacodyl) 10 mg rectal suppository One Suppository per rectum PRN if Milk of Magnisia ineffective. Give on day 5 of no BM 1 sup 2023 Active 2023 89941 05534 1 Daily as needed Rectal False Fleet Enema 19 gram-7 gram/118 mL Administer per rectum PRN one time if dulcolax suppository not effective. Give on day 6 of no BM 1 2023 Active 2023 01556 71903 6 Daily as needed Rectal False Milk of Magnesia 400 mg/5 mL oral suspension [Magnesium hydroxide] PRN 30ml By Mouth Daily as needed for constipation one time daily if no BM, on day 4 of no BM (PRN refer to instructions) For Constipation 30 mL 2023 Active 2023 48267 21859 6 Daily as needed By Mouth False Oxycodone 5 mg tablet [generic] 01/29 Inactiv e 2023 18183 95484 1 Oxycodone 5 mg tablet [generic] 5mg By Mouth Every 4 hours as needed for severe pain for pain rate 7-10. For right pubis fracture 5mg 01/31 Inactiv e 2023 05055 60907 1 Every 4 hours as needed By Mouth False Cymbalta 30 mg capsule,del ayed release 30 mg By Mouth Once daily For Depression 30 mg 02/04 Inactiv e 2023 93353 89551 0 Once daily By Mouth False Acetaminoph en 500 mg tablet [generic] 1000 mg By Mouth Twice daily not to exceed 3gm APAP in 24 hours For Pain 1000 mg 2023 Active 2023 74816 06171 8 Twice daily By Mouth False Healthshake 118 ml BID 118 ml By Mouth Twice daily Healthshake 118 ml BID For MNA of 7 - malnourished - please record total ml consumed 118 ml 2023 Active 2023 Twice daily By Mouth False Oxycodone 5 mg tablet [generic] 01/31 Inactiv e 2023 77568 20230 1 Oxycodone 5 mg tablet [generic] 5mg By Mouth Every 4 hours as needed for severe pain for pain rate 7-10. For right pubis fracture 5mg 02/01 Inactiv e 2023 76239 00014 1 Every 4 hours as needed By Mouth False Oxycodone 5 mg tablet [generic] 5mg By Mouth Every 4 hours as needed for severe pain 7-10 For right pubis fx 5mg 2023 Active 2023 57749 30536 1 Every 4 hours as needed By Mouth False Cymbalta 60 mg capsule,del ayed release 60mg Once daily depression 60mg 2023 Active 2023 89944 55213 0 Once daily By Mouth False Enoxaparin 40 mg/0.4 mL subcutaneou s syringe [generic] 20mg Subcutaneous Once daily For anticoag 20mg 2023 Active 2023 17030 59630 0 Once daily Subcut aneous False Losartan 50 mg tablet [generic] 75 mg By Mouth Once daily For ESSENTIAL (PRIMARY) HYPERTENSION 75 mg 02/17 Inactiv e 2023 01652 40075 9 Once daily By Mouth I10. False Losartan 50 mg tablet [generic] 75 mg By Mouth ( 1.5 TABS) Once daily For ESSENTIAL (PRIMARY) HYPERTENSION 75 mg 2023 Active 2023 94342 80621 9 Once daily By Mouth I10. False Senna 8.6 mg tablet 2 tabs By Mouth Once daily As Needed For constipation 2 tabs 2023 Active 2023 82793 84352 1 Once daily By Mouth False Miralax 17 gram/dose oral powder 17 gram By Mouth As Needed For contispation 17 gram 2023 Active 2023 93539 81782 0 By Mouth False OXYCODONE 5 MG [...] For Muscle spasms 175mg 2024 Active 2024 42121 21058 1 Every 6 hours as needed By Mouth False Aspirin 81 mg chewable tablet [generic] 81 mg By Mouth Once daily For AAA 81 mg 2024 Active 2024 47241 49629 6 Once daily By Mouth False Colace 100 mg capsule 100mg By Mouth Twice daily For constipation 100mg 2024 Active 2024 74799 41569 1 Twice daily By Mouth False Simvastatin 20 mg tablet [generic] 20 mg By Mouth Once daily For Hyperlipidemi a 20 mg 2024 Active 2024 96621 88555 0 Once daily By Mouth False Spiriva with HandiHaler 18 mcg and inhalation capsules 1 capsule Inhalation Once daily For COPD 1 capsule 2024 Active 2024 14130 13248 1 Once daily Inhala tion False Ventolin HFA 90 mcg/actuati on aerosol inhaler 2 puff Inhalation Every 4 hours as needed For COPD 2 puff 2024 Active 2024 10160 19314 0 Every 4 hours as needed Inhala tion False Albuterol sulfate 2.5 mg/3 mL (0.083 %) solution for nebulizatio n [generic] 3 ml Inhalation Every 6 hours as needed For wheezing 3 ml 2024 Active 2024 40696 47749 3 Every 6 hours as needed Inhala tion False Tylenol 325 mg tablet 2 tabs By Mouth Every 4 hours as needed For Pain DO NOT EXCEED 3000 MG APAP/24 Hours 2 tabs 2024 Active 2024 24922 07649 0 Every 4 hours as needed By Mouth False Tylenol 325 mg tablet 2 tabs By Mouth Every 4 hours as needed For Fever >100 DO NOT EXCEED 3000 MG APAP/24 Hours 2 tabs 2024 Active 2024 31821 54597 0 Every 4 hours as needed By Mouth False Dulcolax (bisacodyl) 10 mg rectal suppository One Suppository per rectum PRN if Milk of Magnisia ineffective. Give on day 5 of no BM 1 sup 2024 Active 2024 95066 08989 1 Daily as needed Rectal False Fleet Enema 19 gram-7 gram/118 mL Administer per rectum PRN one time if dulcolax suppository not effective. Give on day 6 of no BM 1 2024 Active 2024 63947 36442 6 Daily as needed Rectal False Milk of Magnesia 400 mg/5 mL oral suspension [Magnesium hydroxide] PRN 30ml By Mouth Daily as needed for constipation one time daily if no BM, on day 4 of no BM (PRN refer to instructions) For Constipation 30 mL 2024 Active 2024 27799 03548 6 Daily as needed By Mouth False Acetaminoph en 500 mg tablet [generic] 1000 mg By Mouth Twice daily not to exceed 3gm APAP in 24 hours For Pain 1000 mg 2024 Active 2024 68766 71776 8 Twice daily By Mouth False Healthshake [...] right pubis fx 5mg 2024 Active 2024 92063 51526 1 Every 4 hours as needed By Mouth False Cymbalta 60 mg capsule,del ayed release 60mg Once daily depression 60mg 2024 Active 2024 78067 68017 0 Once daily By Mouth False Enoxaparin 40 mg/0.4 mL subcutaneou s syringe [generic] 20mg Subcutaneous Once daily For anticoag 20mg 2024 Active 2024 62498 22013 0 Once daily Subcut aneous False Losartan 50 mg tablet [generic] 75 mg By Mouth ( 1.5 TABS) Once daily For ESSENTIAL (PRIMARY) HYPERTENSION 75 mg 2024 Active 2024 72142 21739 9 Once daily By Mouth I10. False Senna 8.6 mg tablet 2 tabs By Mouth Once daily As Needed For constipation 2 tabs 2024 Active 2024 26539 54214 1 Once daily By Mouth False Miralax 17 gram/dose oral powder 17 gram By Mouth As Needed For contispation 17 gram 2024 Active 2024 04235 16030 0 By Mouth False Problems Code Description [...] Temperature SpO2 Blood Sugar Pulse Respirations 210 71688 7 78.00 mm[Hg] - Lying Down 186.00 mm[Hg] - Lying Down 109.80 NI 97.90 Forehead Scan 91.00 % 92.00/ min 18.00/min 210 94985 1 74.00 mm[Hg] - Lying Down 147.00 mm[Hg] - Lying Down 85.00/ min 211 97752 2 72.00 mm[Hg] - Sitting 138.00 mm[Hg] - Sitting 98.40 Tympanic 86.00/ min 18.00/min 211 82671 2 59.00 mm[Hg] - Sitting 117.00 mm[Hg] - Sitting 98.20 Tympanic 99.00 % 81.00/ min 18.00/min 211 54826 5 69.00 mm[Hg] - Sitting 145.00 mm[Hg] - Sitting 211 76097 9 69.00 mm[Hg] - Sitting 145.00 mm[Hg] - Sitting 211 73260 5 69.00 mm[Hg] - Sitting 145.00 mm[Hg] - Sitting 211 16092 6 69.00 mm[Hg] - Sitting 212 77324 7 59.00 mm[Hg] - Sitting 117.00 mm[Hg] - Sitting 98.20 Tympanic 81.00/ min 18.00/min 212 60589 9 97.80 Tympanic 212 19399 6 55.00 mm[Hg] - Sitting 109.00 mm[Hg] - Sitting 97.30 Tympanic 94.00 % 75.00/ min 18.00/min 212 16086 5 68.00 mm[Hg] - Sitting 128.00 mm[Hg] - Sitting 97.80 Tympanic 80.00/ min 18.00/min 01092 212 25345 4 97.50 Tympanic 97813 212 33731 9 54690 212 74648 6 71.00 mm[Hg] - Sitting 117.00 mm[Hg] - Sitting 58885 213 46245 0 60.00 mm[Hg] - Sitting 116.00 mm[Hg] - Sitting 98.40 Forehead Scan 94.00 % 72.00/ min 16.00/min 75377 213 25694 7 70.00 mm[Hg] - Sitting 118.00 mm[Hg] - Sitting 98.00 Tympanic 82.00/ min 18.00/min 28699 213 54460 3 97.90 Tympanic 68442 213 86715 5 73.00 mm[Hg] - Lying Down 127.00 mm[Hg] - Lying Down 91630 213 19475 3 22849 214 35527 1 62.00 mm[Hg] - Sitting 127.00 mm[Hg] - Sitting 97.80 Tympanic 94.00 % 72.00/ min 16.00/min 18451 214 56737 4 59.00 mm[Hg] - Lying Down 113.00 mm[Hg] - Lying Down 74813 215 18443 0 56.00 mm[Hg] - Sitting 101.00 mm[Hg] - Sitting 97.80 Tympanic 95.00 % 71.00/ min 16.00/min 83438 215 29684 5 62 NI 88997 215 54600 8 57.00 mm[Hg] - Lying Down 113.00 mm[Hg] - Lying Down 97015 216 05193 3 71.00 mm[Hg] - Sitting 161.00 mm[Hg] - Sitting 98.10 Tympanic 93.00 % 81.00/ min 16.00/min 73169 216 65864 1 72.00 mm[Hg] - Sitting 115.00 mm[Hg] - Sitting 70764 217 54639 2 08459 217 61136 4 62.00 mm[Hg] - Sitting 112.00 mm[Hg] - Sitting 54797 217 87518 3 57.00 mm[Hg] - Sitting 114.00 mm[Hg] - Sitting 98.30 Tympanic 98.00 % 78.00/ min 20.00/min 68830 217 55970 4 62.00 mm[Hg] - Lying Down 111.00 mm[Hg] - Lying Down 90019 218 19450 0 70.00 mm[Hg] - Sitting 158.00 mm[Hg] - Sitting 97.60 Tympanic 97.00 % 68.00/ min 18.00/min 67657 218 93519 5 65.00 mm[Hg] - Lying Down 113.00 mm[Hg] - Lying Down 34446 219 25208 1 67.00 mm[Hg] - Sitting 112.00 mm[Hg] - Sitting 61270 220 28399 0 82.00 mm[Hg] - Sitting 160.00 mm[Hg] - Sitting 97.90 Forehead Scan 95.00 % 87.00/ min 16.00/min 220 71449 7 69.00 mm[Hg] - Sitting 119.00 mm[Hg] - Sitting 60508 221 46074 1 82.00 mm[Hg] - Sitting 156.00 mm[Hg] - Sitting 98.20 Tympanic 95.00 % 72.00/ min 18.00/min 94754 221 12264 1 78.00 mm[Hg] - Sitting 148.00 mm[Hg] - Sitting 34932 222 91958 0 81.00 mm[Hg] - Sitting 161.00 mm[Hg] - Sitting 97.70 Tympanic 94.00 % 80.00/ min 18.00/min 89862 222 23816 3 87.00 mm[Hg] - Sitting 141.00 mm[Hg] - Sitting 14501 223 29256 9 68.00 mm[Hg] - Sitting 138.00 mm[Hg] - Sitting 98.10 Tympanic 92.00 % 85.00/ min 18.00/min 33409 223 95246 4 67.00 mm[Hg] - Sitting 128.00 mm[Hg] - Sitting 31859 224 09652 6 43651 224 54764 5 73.00 mm[Hg] - Lying Down 151.00 mm[Hg] - Lying Down 98.40 Tympanic 95.00 % 75.00/ min 18.00/min 98222 224 01408 3 63.00 mm[Hg] - Sitting 124.00 mm[Hg] - Sitting 60640 225 74366 1 97.30 Tympanic 95.00 % 72.00/ min 20.00/min 86630 225 58067 6 67.00 mm[Hg] - Sitting 132.00 mm[Hg] - Sitting 78516 226 98162 2 67.00 mm[Hg] - Sitting 121.00 mm[Hg] - Sitting 227 40174 0 70.00 mm[Hg] - Sitting 137.00 mm[Hg] - Sitting 98.70 Forehead Scan 96.00 % 70.00/ min 16.00/min 227 65859 6 69.00 mm[Hg] - Sitting 131.00 mm[Hg] - Sitting 228 99084 7 79.00 mm[Hg] - Lying Down 181.00 mm[Hg] - Lying Down 98.40 Tympanic 98.00 % 75.00/ min 20.00/min 228 35273 1 68.00 mm[Hg] - Lying Down 130.00 mm[Hg] - Lying Down 229 51665 6 80.00 mm[Hg] - Lying Down 183.00 mm[Hg] - Lying Down 98.60 Tympanic 97.00 % 75.00/ min 16.00/min 05195 229 81626 4 74.00 mm[Hg] - Lying Down 161.00 mm[Hg] - Lying Down 77.00/ min 229 86851 9 87.00 mm[Hg] - Sitting 175.00 mm[Hg] - Sitting 98296 230 87948 7 83.00 mm[Hg] - Sitting 186.00 mm[Hg] - Sitting 98.30 Tympanic 94.00 % 86.00/ min 18.00/min 54844 230 96418 6 70.00 mm[Hg] - Sitting 125.00 mm[Hg] - Sitting 04465 231 17702 8 71356 231 85121 4 77.00 mm[Hg] - Sitting 159.00 mm[Hg] - Sitting 98.70 Tympanic 95.00 % 78.00/ min 18.00/min 35834 231 68451 8 77.00 mm[Hg] - Sitting 139.00 mm[Hg] - Sitting 00175 101 16674 3 98.40 Tympanic 95.00 % 85.00/ min 20.00/min 02056 101 09713 5 107.00 NI 98.40 Tympanic 86.00/ min 20.00/min 74448 101 00503 7 107.00 NI 98.40 Tympanic 86.00/ min 20.00/min 54114 101 54046 2 72.00 mm[Hg] - Sitting 136.00 mm[Hg] - Sitting 79607 102 31375 8 77.00 mm[Hg] - Sitting 160.00 mm[Hg] - Sitting 98.20 Tympanic 94.00 % 83.00/ min 18.00/min 13382 102 17226 4 67.00 mm[Hg] - Sitting 132.00 mm[Hg] - Sitting 82056 103 80690 0 98.60 Forehead Scan 97.00 % 86.00/ min 16.00/min 85587 103 97818 0 81.00 mm[Hg] - Sitting 130.00 mm[Hg] - Sitting 53097 104 44885 7 73.00 mm[Hg] - Sitting 124.00 mm[Hg] - Sitting
--- OUTSIDE RECORDS SUMMARY | 2024-04-10 03:13 | External Medical Summary | Continuity Of Care Document ---
Author Name Unknown Address [address] [address] Organization [facility] () Care Team Providers Care [employer]lectual [employer] Legal Assistant Name Role Phone DO Alonso Amy Primary Care Provider [phone] Allergies Allergy Reaction Start Date End Date [...] 3 0.1 mL 01/29 Inactiv e 2023 04039 23667 0 1 time Intrad ermal False Tubersol 5 tub. unit/0.1 mL intradermal injection solution [Tuberculin PPD] 0.1mL Intradermal 1 time For PPD 2nd Step Give 2nd Step PPD Day 1 and Read results Day 3 (schedule 7 days after 1st READ) 0.1mL 02/07 Inactiv e 2023 21213 52961 0 1 time Intrad ermal False Oxycodone 5 mg tablet [generic] 5mg By Mouth Every 4 hours as needed for severe pain for pain rate 7-10. For right pubis fracture 5mg 01/27 Inactiv e 2023 72716 21410 1 Every 4 hours as needed By Mouth False OXYCODONE 5 MG TABLET [GENERIC]IM MEDIATE RELEASE 2.5mg By Mouth Every 4 hours as needed tablet po for moderate pain, pain rate 4-6 on pain scale 1-10. For pain 2.5mg 01/27 Inactiv e 2023 Every 4 hours as needed By Mouth False Oxycodone 5 mg tablet [generic] 01/27 Inactiv e 2023 93999 71858 1 Oxycodone 5 mg tablet [generic] 5mg By Mouth Every 4 hours as needed for severe pain for pain rate 7-10. For right pubis fracture 5mg 01/29 Inactiv e 2023 58325 92538 1 Every 4 hours as needed By [...] For Muscle spasms 175mg 2023 Active 2023 69801 41097 1 Every 6 hours as needed By Mouth False Cephalexin 500 mg capsule [generic] 500mg By Mouth Every 8 hours For UTI 500mg 01/30 Inactiv e 2023 95896 86005 1 Every 8 hours By Mouth False Aspirin 81 mg chewable tablet [generic] 81 mg By Mouth Once daily For AAA 81 mg 2023 Active 2023 11518 12185 6 Once daily By Mouth False Colace 100 mg capsule 100mg By Mouth Twice daily For constipation 100mg 2023 Active 2023 24582 60165 1 Twice daily By Mouth False Enoxaparin 300 mg/3 mL subcutaneou s solution [generic] 20mg Subcutaneous Once daily For anticoag. 20mg 02/06 Inactiv e 2023 38287 39457 1 Once daily Subcut aneous False Losartan 50 mg tablet [generic] 50 By Mouth Once daily For HTN 50 02/16 Inactiv e 2023 82902 37255 9 Once daily By Mouth False Miralax 17 gram/dose oral powder 17 gram By Mouth Once daily For contispation 17 gram 02/17 Inactiv e 2023 98821 70300 0 Once daily By Mouth False Senna 8.6 mg tablet 2 tabs By Mouth Once daily For constipation 2 tabs 02/17 Inactiv e 2023 87398 31383 1 Once daily By Mouth False Simvastatin 20 mg tablet [generic] 20 mg By Mouth Once daily For Hyperlipidemi a 20 mg 2023 Active 2023 41399 71936 0 Once daily By Mouth False Spiriva with HandiHaler 18 mcg and inhalation capsules 1 capsule Inhalation Once daily For COPD 1 capsule 2023 Active 2023 42276 04389 1 Once daily Inhala tion False Ventolin HFA 90 mcg/actuati on aerosol inhaler 2 puff Inhalation Every 4 hours as needed For COPD 2 puff 2023 Active 2023 14425 80258 0 Every 4 hours as needed Inhala tion False ProSource No Carb 15 gram-60 kcal/30 mL oral liquid 30ml By Mouth Twice daily For Protien supplement 30ml 01/30 Inactiv e 2023 56773 42824 5 Twice daily By Mouth False Albuterol sulfate 2.5 mg/3 mL (0.083 %) solution for nebulizatio n [generic] 3 ml Inhalation Every 6 hours as needed For wheezing 3 ml 2023 Active 2023 72956 60194 3 Every 6 hours as needed Inhala tion False Acetaminoph en 325 mg tablet [generic] 650 mg By Mouth Every 6 hours For Mild Pain 650 mg 01/29 Inactiv e 2023 16948 23467 0 Every 6 hours By Mouth False Tylenol 325 mg tablet 2 tabs By Mouth Every 4 hours as needed For Pain DO NOT EXCEED 3000 MG APAP/24 Hours 2 tabs 2023 Active 2023 45970 86655 0 Every 4 hours as needed By Mouth False Tylenol 325 mg tablet 2 tabs By Mouth Every 4 hours as needed For Fever >100 DO NOT EXCEED 3000 MG APAP/24 Hours 2 tabs 2023 Active 2023 83452 01639 0 Every 4 hours as needed By Mouth False Dulcolax (bisacodyl) 10 mg rectal suppository One Suppository per rectum PRN if Milk of Magnisia ineffective. Give on day 5 of no BM 1 sup 2023 Active 2023 00823 41950 1 Daily as needed Rectal False Fleet Enema 19 gram-7 gram/118 mL Administer per rectum PRN one time if dulcolax suppository not effective. Give on day 6 of no BM 1 2023 Active 2023 11604 69146 6 Daily as needed Rectal False Milk of Magnesia 400 mg/5 mL oral suspension [Magnesium hydroxide] PRN 30ml By Mouth Daily as needed for constipation one time daily if no BM, on day 4 of no BM (PRN refer to instructions) For Constipation 30 mL 2023 Active 2023 71646 16462 6 Daily as needed By Mouth False Oxycodone 5 mg tablet [generic] 01/29 Inactiv e 2023 16562 28134 1 Oxycodone 5 mg tablet [generic] 5mg By Mouth Every 4 hours as needed for severe pain for pain rate 7-10. For right pubis fracture 5mg 01/31 Inactiv e 2023 16763 80603 1 Every 4 hours as needed By Mouth False Cymbalta 30 mg capsule,del ayed release 30 mg By Mouth Once daily For Depression 30 mg 02/04 Inactiv e 2023 44229 60661 0 Once daily By Mouth False Acetaminoph en 500 mg tablet [generic] 1000 mg By Mouth Twice daily not to exceed 3gm APAP in 24 hours For Pain 1000 mg 2023 Active 2023 40485 54108 8 Twice daily By Mouth False Healthshake 118 ml BID 118 ml By Mouth Twice daily Healthshake 118 ml BID For MNA of 7 - malnourished - please record total ml consumed 118 ml 2023 Active 2023 Twice daily By Mouth False Oxycodone 5 mg tablet [generic] 01/31 Inactiv e 2023 78696 17099 1 Oxycodone 5 mg tablet [generic] 5mg By Mouth Every 4 hours as needed for severe pain for pain rate 7-10. For right pubis fracture 5mg 02/01 Inactiv e 2023 45620 57989 1 Every 4 hours as needed By Mouth False Oxycodone 5 mg tablet [generic] 5mg By Mouth Every 4 hours as needed for severe pain 7-10 For right pubis fx 5mg 2023 Active 2023 93300 84802 1 Every 4 hours as needed By Mouth False Cymbalta 60 mg capsule,del ayed release 60mg Once daily depression 60mg 2023 Active 2023 77793 09769 0 Once daily By Mouth False Enoxaparin 40 mg/0.4 mL subcutaneou s syringe [generic] 20mg Subcutaneous Once daily For anticoag 20mg 2023 Active 2023 76606 15712 0 Once daily Subcut aneous False Losartan 50 mg tablet [generic] 75 mg By Mouth Once daily For ESSENTIAL (PRIMARY) HYPERTENSION 75 mg 02/17 Inactiv e 2023 25767 72220 9 Once daily By Mouth I10. False Losartan 50 mg tablet [generic] 75 mg By Mouth ( 1.5 TABS) Once daily For ESSENTIAL (PRIMARY) HYPERTENSION 75 mg 2023 Active 2023 23164 20384 9 Once daily By Mouth I10. False Senna 8.6 mg tablet 2 tabs By Mouth Once daily As Needed For constipation 2 tabs 2023 Active 2023 38858 20385 1 Once daily By Mouth False Miralax 17 gram/dose oral powder 17 gram By Mouth As Needed For contispation 17 gram 2023 Active 2023 39567 28754 0 By Mouth False OXYCODONE 5 MG [...] For Muscle spasms 175mg 2024 Active 2024 11801 22995 1 Every 6 hours as needed By Mouth False Aspirin 81 mg chewable tablet [generic] 81 mg By Mouth Once daily For AAA 81 mg 2024 Active 2024 52275 71907 6 Once daily By Mouth False Colace 100 mg capsule 100mg By Mouth Twice daily For constipation 100mg 2024 Active 2024 37248 41186 1 Twice daily By Mouth False Simvastatin 20 mg tablet [generic] 20 mg By Mouth Once daily For Hyperlipidemi a 20 mg 2024 Active 2024 79232 34069 0 Once daily By Mouth False Spiriva with HandiHaler 18 mcg and inhalation capsules 1 capsule Inhalation Once daily For COPD 1 capsule 2024 Active 2024 45561 12786 1 Once daily Inhala tion False Ventolin HFA 90 mcg/actuati on aerosol inhaler 2 puff Inhalation Every 4 hours as needed For COPD 2 puff 2024 Active 2024 75156 56134 0 Every 4 hours as needed Inhala tion False Albuterol sulfate 2.5 mg/3 mL (0.083 %) solution for nebulizatio n [generic] 3 ml Inhalation Every 6 hours as needed For wheezing 3 ml 2024 Active 2024 36915 10173 3 Every 6 hours as needed Inhala tion False Tylenol 325 mg tablet 2 tabs By Mouth Every 4 hours as needed For Pain DO NOT EXCEED 3000 MG APAP/24 Hours 2 tabs 2024 Active 2024 00878 07512 0 Every 4 hours as needed By Mouth False Problems Code Description Start [...] weight Temperature SpO2 Blood Sugar Pulse Respirations 30017 210 89022 7 78.00 mm[Hg] - Lying Down 186.00 mm[Hg] - Lying Down 109.80 NI 97.90 Forehead Scan 91.00 % 92.00/ min 18.00/min 25377 210 50174 1 74.00 mm[Hg] - Lying Down 147.00 mm[Hg] - Lying Down 85.00/ min 13310 211 42940 2 72.00 mm[Hg] - Sitting 138.00 mm[Hg] - Sitting 98.40 Tympanic 86.00/ min 18.00/min 09054 211 18203 2 59.00 mm[Hg] - Sitting 117.00 mm[Hg] - Sitting 98.20 Tympanic 99.00 % 81.00/ min 18.00/min 51152 211 98254 5 69.00 mm[Hg] - Sitting 145.00 mm[Hg] - Sitting 65027 211 98559 9 69.00 mm[Hg] - Sitting 145.00 mm[Hg] - Sitting 27757 211 37517 5 69.00 mm[Hg] - Sitting 145.00 mm[Hg] - Sitting 37814 211 24867 6 69.00 mm[Hg] - Sitting 40147 212 78461 7 59.00 mm[Hg] - Sitting 117.00 mm[Hg] - Sitting 98.20 Tympanic 81.00/ min 18.00/min 84745 212 10646 9 97.80 Tympanic 12082 212 89740 6 55.00 mm[Hg] - Sitting 109.00 mm[Hg] - Sitting 97.30 Tympanic 94.00 % 75.00/ min 18.00/min 25977 212 83742 5 68.00 mm[Hg] - Sitting 128.00 mm[Hg] - Sitting 97.80 Tympanic 80.00/ min 18.00/min 83823 212 80529 4 97.50 Tympanic 72323 212 40359 9 60556 212 20734 6 71.00 mm[Hg] - Sitting 117.00 mm[Hg] - Sitting 60370 213 91612 0 60.00 mm[Hg] - Sitting 116.00 mm[Hg] - Sitting 98.40 Forehead Scan 94.00 % 72.00/ min 16.00/min 64794 213 67228 7 70.00 mm[Hg] - Sitting 118.00 mm[Hg] - Sitting 98.00 Tympanic 82.00/ min 18.00/min 66744 213 76938 3 97.90 Tympanic 26311 213 90641 5 73.00 mm[Hg] - Lying Down 127.00 mm[Hg] - Lying Down 81664 213 64886 3 79213 214 02641 1 62.00 mm[Hg] - Sitting 127.00 mm[Hg] - Sitting 97.80 Tympanic 94.00 % 72.00/ min 16.00/min 60809 214 82319 4 59.00 mm[Hg] - Lying Down 113.00 mm[Hg] - Lying Down 08880 215 05148 0 56.00 mm[Hg] - Sitting 101.00 mm[Hg] - Sitting 97.80 Tympanic 95.00 % 71.00/ min 16.00/min 39141 215 90925 5 62 NI 42368 215 22901 8 57.00 mm[Hg] - Lying Down 113.00 mm[Hg] - Lying Down 51599 216 41525 3 71.00 mm[Hg] - Sitting 161.00 mm[Hg] - Sitting 98.10 Tympanic 93.00 % 81.00/ min 16.00/min 52589 216 93134 1 72.00 mm[Hg] - Sitting 115.00 mm[Hg] - Sitting 11889 217 81946 2 22037 217 07606 4 62.00 mm[Hg] - Sitting 112.00 mm[Hg] - Sitting 85207 217 30032 3 57.00 mm[Hg] - Sitting 114.00 mm[Hg] - Sitting 98.30 Tympanic 98.00 % 78.00/ min 20.00/min 81929 217 99715 4 62.00 mm[Hg] - Lying Down 111.00 mm[Hg] - Lying Down 05987 218 03142 0 70.00 mm[Hg] - Sitting 158.00 mm[Hg] - Sitting 97.60 Tympanic 97.00 % 68.00/ min 18.00/min 55228 218 26764 5 65.00 mm[Hg] - Lying Down 113.00 mm[Hg] - Lying Down 21924 219 36060 1 67.00 mm[Hg] - Sitting 112.00 mm[Hg] - Sitting 97114 220 54522 0 82.00 mm[Hg] - Sitting 160.00 mm[Hg] - Sitting 97.90 Forehead Scan 95.00 % 87.00/ min 16.00/min 62220 220 68524 7 69.00 mm[Hg] - Sitting 119.00 mm[Hg] - Sitting 71481 221 16811 1 82.00 mm[Hg] - Sitting 156.00 mm[Hg] - Sitting 98.20 Tympanic 95.00 % 72.00/ min 18.00/min 03247 221 66641 1 78.00 mm[Hg] - Sitting 148.00 mm[Hg] - Sitting 222 31470 0 81.00 mm[Hg] - Sitting 161.00 mm[Hg] - Sitting 97.70 Tympanic 94.00 % 80.00/ min 18.00/min 222 27159 3 87.00 mm[Hg] - Sitting 141.00 mm[Hg] - Sitting 223 74700 9 68.00 mm[Hg] - Sitting 138.00 mm[Hg] - Sitting 98.10 Tympanic 92.00 % 85.00/ min 18.00/min 223 82381 4 67.00 mm[Hg] - Sitting 128.00 mm[Hg] - Sitting 224 95427 6 78794 224 03495 5 73.00 mm[Hg] - Lying Down 151.00 mm[Hg] - Lying Down 98.40 Tympanic 95.00 % 75.00/ min 18.00/min 224 42234 3 63.00 mm[Hg] - Sitting 124.00 mm[Hg] - Sitting 225 42885 1 97.30 Tympanic 95.00 % 72.00/ min 20.00/min 225 97383 6 67.00 mm[Hg] - Sitting 132.00 mm[Hg] - Sitting 226 38338 2 67.00 mm[Hg] - Sitting 121.00 mm[Hg] - Sitting 227 92773 0 70.00 mm[Hg] - Sitting 137.00 mm[Hg] - Sitting 98.70 Forehead Scan 96.00 % 70.00/ min 16.00/min 227 66804 6 69.00 mm[Hg] - Sitting 131.00 mm[Hg] - Sitting 12069 228 25396 7 79.00 mm[Hg] - Lying Down 181.00 mm[Hg] - Lying Down 98.40 Tympanic 98.00 % 75.00/ min 20.00/min 228 40863 1 68.00 mm[Hg] - Lying Down 130.00 mm[Hg] - Lying Down 15620 229 92462 6 80.00 mm[Hg] - Lying Down 183.00 mm[Hg] - Lying Down 98.60 Tympanic 97.00 % 75.00/ min 16.00/min 229 76229 4 74.00 mm[Hg] - Lying Down 161.00 mm[Hg] - Lying Down 77.00/ min 33519 229 87730 9 87.00 mm[Hg] - Sitting 175.00 mm[Hg] - Sitting 80405 230 93026 7 83.00 mm[Hg] - Sitting 186.00 mm[Hg] - Sitting 98.30 Tympanic 94.00 % 86.00/ min 18.00/min 98063 230 51462 6 70.00 mm[Hg] - Sitting 125.00 mm[Hg] - Sitting 49770 231 75274 8 86226 231 07976 4 77.00 mm[Hg] - Sitting 159.00 mm[Hg] - Sitting 98.70 Tympanic 95.00 % 78.00/ min 18.00/min 09903 231 99397 8 77.00 mm[Hg] - Sitting 139.00 mm[Hg] - Sitting 16536 101 03985 3 98.40 Tympanic 95.00 % 85.00/ min 20.00/min 63120 101 95188 5 107.00 NI 98.40 Tympanic 86.00/ min 20.00/min 09231 101 25067 7 107.00 NI 98.40 Tympanic 86.00/ min 20.00/min 44746 101 13788 2 72.00 mm[Hg] - Sitting 136.00 mm[Hg] - Sitting 75687 102 50494 8 77.00 mm[Hg] - Sitting 160.00 mm[Hg] - Sitting 98.20 Tympanic 94.00 % 83.00/ min 18.00/min 76612 102 54372 4 67.00 mm[Hg] - Sitting 132.00 mm[Hg] - Sitting 89307 103 28235 0 98.60 Forehead Scan 97.00 % 86.00/ min 16.00/min 32218 103 24140 0 81.00 mm[Hg] - Sitting 130.00 mm[Hg] - Sitting 54808 104 39368 7 73.00 mm[Hg] - Sitting 124.00 mm[Hg] - Sitting 36439 105 59849 0 72.00 mm[Hg] - Sitting 115.00 mm[Hg] - Sitting
--- OUTSIDE RECORDS SUMMARY | 2024-04-10 03:14 | External Medical Summary | Continuity Of Care Document ---
Author Name Unknown Address [address] [address] Organization [facility] () Care Team Providers Care Professor Of Psychology Name Role Phone DO Alonso Amy Primary Care Provider [phone] Allergies Allergy Reaction Start Date End Date [...] 3 0.1 mL 01/29 Inactiv e 2023 97721 32859 0 1 time Intrad ermal False Tubersol 5 tub. unit/0.1 mL intradermal injection solution [Tuberculin PPD] 0.1mL Intradermal 1 time For PPD 2nd Step Give 2nd Step PPD Day 1 and Read results Day 3 (schedule 7 days after 1st READ) 0.1mL 02/07 Inactiv e 2023 99320 88060 0 1 time Intrad ermal False Oxycodone 5 mg tablet [generic] 5mg By Mouth Every 4 hours as needed for severe pain for pain rate 7-10. For right pubis fracture 5mg 01/27 Inactiv e 2023 21300 88890 1 Every 4 hours as needed By Mouth False OXYCODONE 5 MG TABLET [GENERIC]IM MEDIATE RELEASE 2.5mg By Mouth Every 4 hours as needed tablet po for moderate pain, pain rate 4-6 on pain scale 1-10. For pain 2.5mg 01/27 Inactiv e 2023 Every 4 hours as needed By Mouth False Oxycodone 5 mg tablet [generic] 01/27 Inactiv e 2023 28791 40962 1 Oxycodone 5 mg tablet [generic] 5mg By Mouth Every 4 hours as needed for severe pain for pain rate 7-10. For right pubis fracture 5mg 01/29 Inactiv e 2023 15614 32801 1 Every 4 hours as needed By [...] For Muscle spasms 175mg 2023 Active 2023 91108 26026 1 Every 6 hours as needed By Mouth False Cephalexin 500 mg capsule [generic] 500mg By Mouth Every 8 hours For UTI 500mg 01/30 Inactiv e 2023 67647 10269 1 Every 8 hours By Mouth False Aspirin 81 mg chewable tablet [generic] 81 mg By Mouth Once daily For AAA 81 mg 2023 Active 2023 97917 48054 6 Once daily By Mouth False Colace 100 mg capsule 100mg By Mouth Twice daily For constipation 100mg 2023 Active 2023 03369 87021 1 Twice daily By Mouth False Enoxaparin 300 mg/3 mL subcutaneou s solution [generic] 20mg Subcutaneous Once daily For anticoag. 20mg 02/06 Inactiv e 2023 16255 61661 1 Once daily Subcut aneous False Losartan 50 mg tablet [generic] 50 By Mouth Once daily For HTN 50 02/16 Inactiv e 2023 03402 05745 9 Once daily By Mouth False Miralax 17 gram/dose oral powder 17 gram By Mouth Once daily For contispation 17 gram 02/17 Inactiv e 2023 23277 09567 0 Once daily By Mouth False Senna 8.6 mg tablet 2 tabs By Mouth Once daily For constipation 2 tabs 02/17 Inactiv e 2023 72681 86325 1 Once daily By Mouth False Simvastatin 20 mg tablet [generic] 20 mg By Mouth Once daily For Hyperlipidemi a 20 mg 2023 Active 2023 17477 77447 0 Once daily By Mouth False Spiriva with HandiHaler 18 mcg and inhalation capsules 1 capsule Inhalation Once daily For COPD 1 capsule 2023 Active 2023 60598 80190 1 Once daily Inhala tion False Ventolin HFA 90 mcg/actuati on aerosol inhaler 2 puff Inhalation Every 4 hours as needed For COPD 2 puff 2023 Active 2023 54053 96349 0 Every 4 hours as needed Inhala tion False ProSource No Carb 15 gram-60 kcal/30 mL oral liquid 30ml By Mouth Twice daily For Protien supplement 30ml 01/30 Inactiv e 2023 97292 19575 5 Twice daily By Mouth False Albuterol sulfate 2.5 mg/3 mL (0.083 %) solution for nebulizatio n [generic] 3 ml Inhalation Every 6 hours as needed For wheezing 3 ml 2023 Active 2023 19947 98913 3 Every 6 hours as needed Inhala tion False Acetaminoph en 325 mg tablet [generic] 650 mg By Mouth Every 6 hours For Mild Pain 650 mg 01/29 Inactiv e 2023 61410 66335 0 Every 6 hours By Mouth False Tylenol 325 mg tablet 2 tabs By Mouth Every 4 hours as needed For Pain DO NOT EXCEED 3000 MG APAP/24 Hours 2 tabs 2023 Active 2023 84282 52927 0 Every 4 hours as needed By Mouth False Tylenol 325 mg tablet 2 tabs By Mouth Every 4 hours as needed For Fever >100 DO NOT EXCEED 3000 MG APAP/24 Hours 2 tabs 2023 Active 2023 13075 60085 0 Every 4 hours as needed By Mouth False Dulcolax (bisacodyl) 10 mg rectal suppository One Suppository per rectum PRN if Milk of Magnisia ineffective. Give on day 5 of no BM 1 sup 2023 Active 2023 67143 88412 1 Daily as needed Rectal False Fleet Enema 19 gram-7 gram/118 mL Administer per rectum PRN one time if dulcolax suppository not effective. Give on day 6 of no BM 1 2023 Active 2023 55254 66926 6 Daily as needed Rectal False Milk of Magnesia 400 mg/5 mL oral suspension [Magnesium hydroxide] PRN 30ml By Mouth Daily as needed for constipation one time daily if no BM, on day 4 of no BM (PRN refer to instructions) For Constipation 30 mL 2023 Active 2023 37184 68677 6 Daily as needed By Mouth False Oxycodone 5 mg tablet [generic] 01/29 Inactiv e 2023 98834 00148 1 Oxycodone 5 mg tablet [generic] 5mg By Mouth Every 4 hours as needed for severe pain for pain rate 7-10. For right pubis fracture 5mg 01/31 Inactiv e 2023 61863 61993 1 Every 4 hours as needed By Mouth False Cymbalta 30 mg capsule,del ayed release 30 mg By Mouth Once daily For Depression 30 mg 02/04 Inactiv e 2023 80551 28126 0 Once daily By Mouth False Acetaminoph en 500 mg tablet [generic] 1000 mg By Mouth Twice daily not to exceed 3gm APAP in 24 hours For Pain 1000 mg 2023 Active 2023 73074 34667 8 Twice daily By Mouth False Healthshake 118 ml BID 118 ml By Mouth Twice daily Healthshake 118 ml BID For MNA of 7 - malnourished - please record total ml consumed 118 ml 2023 Active 2023 Twice daily By Mouth False Oxycodone 5 mg tablet [generic] 01/31 Inactiv e 2023 47593 17716 1 Oxycodone 5 mg tablet [generic] 5mg By Mouth Every 4 hours as needed for severe pain for pain rate 7-10. For right pubis fracture 5mg 02/01 Inactiv e 2023 57741 28441 1 Every 4 hours as needed By Mouth False Oxycodone 5 mg tablet [generic] 5mg By Mouth Every 4 hours as needed for severe pain 7-10 For right pubis fx 5mg 2023 Active 2023 87961 37228 1 Every 4 hours as needed By Mouth False Cymbalta 60 mg capsule,del ayed release 60mg Once daily depression 60mg 2023 Active 2023 72885 24246 0 Once daily By Mouth False Enoxaparin 40 mg/0.4 mL subcutaneou s syringe [generic] 20mg Subcutaneous Once daily For anticoag 20mg 2023 Active 2023 63777 40583 0 Once daily Subcut aneous False Losartan 50 mg tablet [generic] 75 mg By Mouth Once daily For ESSENTIAL (PRIMARY) HYPERTENSION 75 mg 02/17 Inactiv e 2023 27561 51756 9 Once daily By Mouth I10. False Losartan 50 mg tablet [generic] 75 mg By Mouth ( 1.5 TABS) Once daily For ESSENTIAL (PRIMARY) HYPERTENSION 75 mg 2023 Active 2023 79032 15649 9 Once daily By Mouth I10. False Senna 8.6 mg tablet 2 tabs By Mouth Once daily As Needed For constipation 2 tabs 2023 Active 2023 33517 63964 1 Once daily By Mouth False Miralax 17 gram/dose oral powder 17 gram By Mouth As Needed For contispation 17 gram 2023 Active 2023 08948 63732 0 By Mouth False Problems Code Description [...] Temperature SpO2 Blood Sugar Pulse Respirations 210 82782 7 78.00 mm[Hg] - Lying Down 186.00 mm[Hg] - Lying Down 109.80 NI 97.90 Forehead Scan 91.00 % 92.00/ min 18.00/min 210 43368 1 74.00 mm[Hg] - Lying Down 147.00 mm[Hg] - Lying Down 85.00/ min 211 32474 2 72.00 mm[Hg] - Sitting 138.00 mm[Hg] - Sitting 98.40 Tympanic 86.00/ min 18.00/min 47999 211 05097 2 59.00 mm[Hg] - Sitting 117.00 mm[Hg] - Sitting 98.20 Tympanic 99.00 % 81.00/ min 18.00/min 39285 211 16014 5 69.00 mm[Hg] - Sitting 145.00 mm[Hg] - Sitting 58784 211 99147 9 69.00 mm[Hg] - Sitting 145.00 mm[Hg] - Sitting 62244 211 19811 5 69.00 mm[Hg] - Sitting 145.00 mm[Hg] - Sitting 45343 211 55123 6 69.00 mm[Hg] - Sitting 31538 212 74545 7 59.00 mm[Hg] - Sitting 117.00 mm[Hg] - Sitting 98.20 Tympanic 81.00/ min 18.00/min 25683 212 14792 9 97.80 Tympanic 50759 212 92014 6 55.00 mm[Hg] - Sitting 109.00 mm[Hg] - Sitting 97.30 Tympanic 94.00 % 75.00/ min 18.00/min 89785 212 50462 5 68.00 mm[Hg] - Sitting 128.00 mm[Hg] - Sitting 97.80 Tympanic 80.00/ min 18.00/min 61657 212 57860 4 97.50 Tympanic 31340 212 97782 9 23656 212 70339 6 71.00 mm[Hg] - Sitting 117.00 mm[Hg] - Sitting 18466 213 86993 0 60.00 mm[Hg] - Sitting 116.00 mm[Hg] - Sitting 98.40 Forehead Scan 94.00 % 72.00/ min 16.00/min 46763 213 65884 7 70.00 mm[Hg] - Sitting 118.00 mm[Hg] - Sitting 98.00 Tympanic 82.00/ min 18.00/min 47606 213 50520 3 97.90 Tympanic 92433 213 97302 5 73.00 mm[Hg] - Lying Down 127.00 mm[Hg] - Lying Down 12010 213 20780 3 73270 214 74436 1 62.00 mm[Hg] - Sitting 127.00 mm[Hg] - Sitting 97.80 Tympanic 94.00 % 72.00/ min 16.00/min 54169 214 84935 4 59.00 mm[Hg] - Lying Down 113.00 mm[Hg] - Lying Down 65593 215 81064 0 56.00 mm[Hg] - Sitting 101.00 mm[Hg] - Sitting 97.80 Tympanic 95.00 % 71.00/ min 16.00/min 09464 215 00871 5 62 NI 91684 215 58864 8 57.00 mm[Hg] - Lying Down 113.00 mm[Hg] - Lying Down 48834 216 92479 3 71.00 mm[Hg] - Sitting 161.00 mm[Hg] - Sitting 98.10 Tympanic 93.00 % 81.00/ min 16.00/min 216 25250 1 72.00 mm[Hg] - Sitting 115.00 mm[Hg] - Sitting 45384 217 71897 2 80439 217 92238 4 62.00 mm[Hg] - Sitting 112.00 mm[Hg] - Sitting 40293 217 77693 3 57.00 mm[Hg] - Sitting 114.00 mm[Hg] - Sitting 98.30 Tympanic 98.00 % 78.00/ min 20.00/min 217 52352 4 62.00 mm[Hg] - Lying Down 111.00 mm[Hg] - Lying Down 18049 218 31237 0 70.00 mm[Hg] - Sitting 158.00 mm[Hg] - Sitting 97.60 Tympanic 97.00 % 68.00/ min 18.00/min 94524 218 12644 5 65.00 mm[Hg] - Lying Down 113.00 mm[Hg] - Lying Down 32071 219 05281 1 67.00 mm[Hg] - Sitting 112.00 mm[Hg] - Sitting 30079 220 54516 0 82.00 mm[Hg] - Sitting 160.00 mm[Hg] - Sitting 97.90 Forehead Scan 95.00 % 87.00/ min 16.00/min 81346 220 82725 7 69.00 mm[Hg] - Sitting 119.00 mm[Hg] - Sitting 90027 221 13542 1 82.00 mm[Hg] - Sitting 156.00 mm[Hg] - Sitting 98.20 Tympanic 95.00 % 72.00/ min 18.00/min 58885 221 66286 1 78.00 mm[Hg] - Sitting 148.00 mm[Hg] - Sitting 08299 222 65925 0 81.00 mm[Hg] - Sitting 161.00 mm[Hg] - Sitting 97.70 Tympanic 94.00 % 80.00/ min 18.00/min 222 19530 3 87.00 mm[Hg] - Sitting 141.00 mm[Hg] - Sitting 223 78321 9 68.00 mm[Hg] - Sitting 138.00 mm[Hg] - Sitting 98.10 Tympanic 92.00 % 85.00/ min 18.00/min 223 55601 4 67.00 mm[Hg] - Sitting 128.00 mm[Hg] - Sitting 224 28160 6 224 76423 5 73.00 mm[Hg] - Lying Down 151.00 mm[Hg] - Lying Down 98.40 Tympanic 95.00 % 75.00/ min 18.00/min 224 15548 3 63.00 mm[Hg] - Sitting 124.00 mm[Hg] - Sitting 225 81884 1 97.30 Tympanic 95.00 % 72.00/ min 20.00/min 225 84185 6 67.00 mm[Hg] - Sitting 132.00 mm[Hg] - Sitting 226 51618 2 67.00 mm[Hg] - Sitting 121.00 mm[Hg] - Sitting 227 54256 0 70.00 mm[Hg] - Sitting 137.00 mm[Hg] - Sitting 98.70 Forehead Scan 96.00 % 70.00/ min 16.00/min 227 83521 6 69.00 mm[Hg] - Sitting 131.00 mm[Hg] - Sitting 228 61965 7 79.00 mm[Hg] - Lying Down 181.00 mm[Hg] - Lying Down 98.40 Tympanic 98.00 % 75.00/ min 20.00/min 31429 228 84376 1 68.00 mm[Hg] - Lying Down 130.00 mm[Hg] - Lying Down 229 92739 6 80.00 mm[Hg] - Lying Down 183.00 mm[Hg] - Lying Down 98.60 Tympanic 97.00 % 75.00/ min 16.00/min 229 93146 4 74.00 mm[Hg] - Lying Down 161.00 mm[Hg] - Lying Down 77.00/ min 64538 229 12287 9 87.00 mm[Hg] - Sitting 175.00 mm[Hg] - Sitting 13795 230 34602 7 83.00 mm[Hg] - Sitting 186.00 mm[Hg] - Sitting 98.30 Tympanic 94.00 % 86.00/ min 18.00/min 85504 230 99243 6 70.00 mm[Hg] - Sitting 125.00 mm[Hg] - Sitting 98663 231 83896 8 82570 231 70462 4 77.00 mm[Hg] - Sitting 159.00 mm[Hg] - Sitting 98.70 Tympanic 95.00 % 78.00/ min 18.00/min 52577 231 19024 8 77.00 mm[Hg] - Sitting 139.00 mm[Hg] - Sitting 24039 101 18620 3 98.40 Tympanic 95.00 % 85.00/ min 20.00/min 95343 101 49942 5 107.00 NI 98.40 Tympanic 86.00/ min 20.00/min 46924 101 86463 7 107.00 NI 98.40 Tympanic 86.00/ min 20.00/min 57896 101 61088 2 72.00 mm[Hg] - Sitting 136.00 mm[Hg] - Sitting 17744 102 36460 8 77.00 mm[Hg] - Sitting 160.00 mm[Hg] - Sitting 98.20 Tympanic 94.00 % 83.00/ min 18.00/min 77267 102 39621 4 67.00 mm[Hg] - Sitting 132.00 mm[Hg] - Sitting
--- OUTSIDE RECORDS SUMMARY | 2024-04-10 03:14 | External Medical Summary | Continuity Of Care Document ---
Author Name Unknown Address [address] [address] Organization [facility] () Care Team Providers Care Nut Process Helper Name Role Phone DO Alonso Amy Primary Care Provider [phone] Allergies Allergy Reaction Start Date End Date [...] 3 0.1 mL 01/29 Inactiv e 2023 93807 45007 0 1 time Intrad ermal False Tubersol 5 tub. unit/0.1 mL intradermal injection solution [Tuberculin PPD] 0.1mL Intradermal 1 time For PPD 2nd Step Give 2nd Step PPD Day 1 and Read results Day 3 (schedule 7 days after 1st READ) 0.1mL 02/07 Inactiv e 2023 13466 76088 0 1 time Intrad ermal False Oxycodone 5 mg tablet [generic] 5mg By Mouth Every 4 hours as needed for severe pain for pain rate 7-10. For right pubis fracture 5mg 01/27 Inactiv e 2023 57099 95879 1 Every 4 hours as needed By Mouth False OXYCODONE 5 MG TABLET [GENERIC]IM MEDIATE RELEASE 2.5mg By Mouth Every 4 hours as needed tablet po for moderate pain, pain rate 4-6 on pain scale 1-10. For pain 2.5mg 01/27 Inactiv e 2023 Every 4 hours as needed By Mouth False Oxycodone 5 mg tablet [generic] 01/27 Inactiv e 2023 62822 21702 1 Oxycodone 5 mg tablet [generic] 5mg By Mouth Every 4 hours as needed for severe pain for pain rate 7-10. For right pubis fracture 5mg 01/29 Inactiv e 2023 72233 19952 1 Every 4 hours as needed By [...] For Muscle spasms 175mg 2023 Active 2023 72926 69036 1 Every 6 hours as needed By Mouth False Cephalexin 500 mg capsule [generic] 500mg By Mouth Every 8 hours For UTI 500mg 01/30 Inactiv e 2023 22876 49461 1 Every 8 hours By Mouth False Aspirin 81 mg chewable tablet [generic] 81 mg By Mouth Once daily For AAA 81 mg 2023 Active 2023 16509 89089 6 Once daily By Mouth False Colace 100 mg capsule 100mg By Mouth Twice daily For constipation 100mg 2023 Active 2023 81634 98880 1 Twice daily By Mouth False Enoxaparin 300 mg/3 mL subcutaneou s solution [generic] 20mg Subcutaneous Once daily For anticoag. 20mg 02/06 Inactiv e 2023 65862 82688 1 Once daily Subcut aneous False Losartan 50 mg tablet [generic] 50 By Mouth Once daily For HTN 50 02/16 Inactiv e 2023 45304 68989 9 Once daily By Mouth False Miralax 17 gram/dose oral powder 17 gram By Mouth Once daily For contispation 17 gram 02/17 Inactiv e 2023 28934 38606 0 Once daily By Mouth False Senna 8.6 mg tablet 2 tabs By Mouth Once daily For constipation 2 tabs 02/17 Inactiv e 2023 76868 89970 1 Once daily By Mouth False Simvastatin 20 mg tablet [generic] 20 mg By Mouth Once daily For Hyperlipidemi a 20 mg 2023 Active 2023 52695 53016 0 Once daily By Mouth False Spiriva with HandiHaler 18 mcg and inhalation capsules 1 capsule Inhalation Once daily For COPD 1 capsule 2023 Active 2023 93367 88949 1 Once daily Inhala tion False Ventolin HFA 90 mcg/actuati on aerosol inhaler 2 puff Inhalation Every 4 hours as needed For COPD 2 puff 2023 Active 2023 79158 88763 0 Every 4 hours as needed Inhala tion False ProSource No Carb 15 gram-60 kcal/30 mL oral liquid 30ml By Mouth Twice daily For Protien supplement 30ml 01/30 Inactiv e 2023 43489 03607 5 Twice daily By Mouth False Albuterol sulfate 2.5 mg/3 mL (0.083 %) solution for nebulizatio n [generic] 3 ml Inhalation Every 6 hours as needed For wheezing 3 ml 2023 Active 2023 46292 09826 3 Every 6 hours as needed Inhala tion False Acetaminoph en 325 mg tablet [generic] 650 mg By Mouth Every 6 hours For Mild Pain 650 mg 01/29 Inactiv e 2023 96438 93830 0 Every 6 hours By Mouth False Tylenol 325 mg tablet 2 tabs By Mouth Every 4 hours as needed For Pain DO NOT EXCEED 3000 MG APAP/24 Hours 2 tabs 2023 Active 2023 08302 62468 0 Every 4 hours as needed By Mouth False Tylenol 325 mg tablet 2 tabs By Mouth Every 4 hours as needed For Fever >100 DO NOT EXCEED 3000 MG APAP/24 Hours 2 tabs 2023 Active 2023 43672 69708 0 Every 4 hours as needed By Mouth False Dulcolax (bisacodyl) 10 mg rectal suppository One Suppository per rectum PRN if Milk of Magnisia ineffective. Give on day 5 of no BM 1 sup 2023 Active 2023 65845 69196 1 Daily as needed Rectal False Fleet Enema 19 gram-7 gram/118 mL Administer per rectum PRN one time if dulcolax suppository not effective. Give on day 6 of no BM 1 2023 Active 2023 00776 91268 6 Daily as needed Rectal False Milk of Magnesia 400 mg/5 mL oral suspension [Magnesium hydroxide] PRN 30ml By Mouth Daily as needed for constipation one time daily if no BM, on day 4 of no BM (PRN refer to instructions) For Constipation 30 mL 2023 Active 2023 93391 97911 6 Daily as needed By Mouth False Oxycodone 5 mg tablet [generic] 01/29 Inactiv e 2023 47166 96700 1 Oxycodone 5 mg tablet [generic] 5mg By Mouth Every 4 hours as needed for severe pain for pain rate 7-10. For right pubis fracture 5mg 01/31 Inactiv e 2023 19916 62200 1 Every 4 hours as needed By Mouth False Cymbalta 30 mg capsule,del ayed release 30 mg By Mouth Once daily For Depression 30 mg 02/04 Inactiv e 2023 84687 48714 0 Once daily By Mouth False Acetaminoph en 500 mg tablet [generic] 1000 mg By Mouth Twice daily not to exceed 3gm APAP in 24 hours For Pain 1000 mg 2023 Active 2023 64561 27359 8 Twice daily By Mouth False Healthshake 118 ml BID 118 ml By Mouth Twice daily Healthshake 118 ml BID For MNA of 7 - malnourished - please record total ml consumed 118 ml 2023 Active 2023 Twice daily By Mouth False Oxycodone 5 mg tablet [generic] 01/31 Inactiv e 2023 27796 57193 1 Oxycodone 5 mg tablet [generic] 5mg By Mouth Every 4 hours as needed for severe pain for pain rate 7-10. For right pubis fracture 5mg 02/01 Inactiv e 2023 58932 22051 1 Every 4 hours as needed By Mouth False Oxycodone 5 mg tablet [generic] 5mg By Mouth Every 4 hours as needed for severe pain 7-10 For right pubis fx 5mg 2023 Active 2023 25640 71129 1 Every 4 hours as needed By Mouth False Cymbalta 60 mg capsule,del ayed release 60mg Once daily depression 60mg 2023 Active 2023 28262 81081 0 Once daily By Mouth False Enoxaparin 40 mg/0.4 mL subcutaneou s syringe [generic] 20mg Subcutaneous Once daily For anticoag 20mg 2023 Active 2023 57073 79319 0 Once daily Subcut aneous False Losartan 50 mg tablet [generic] 75 mg By Mouth Once daily For ESSENTIAL (PRIMARY) HYPERTENSION 75 mg 02/17 Inactiv e 2023 69877 08643 9 Once daily By Mouth I10. False Losartan 50 mg tablet [generic] 75 mg By Mouth ( 1.5 TABS) Once daily For ESSENTIAL (PRIMARY) HYPERTENSION 75 mg 2023 Active 2023 97613 10991 9 Once daily By Mouth I10. False Senna 8.6 mg tablet 2 tabs By Mouth Once daily As Needed For constipation 2 tabs 2023 Active 2023 04287 86722 1 Once daily By Mouth False Miralax 17 gram/dose oral powder 17 gram By Mouth As Needed For contispation 17 gram 2023 Active 2023 11393 43545 0 By Mouth False Problems Code Description [...] Temperature SpO2 Blood Sugar Pulse Respirations 210 15304 7 78.00 mm[Hg] - Lying Down 186.00 mm[Hg] - Lying Down 109.80 NI 97.90 Forehead Scan 91.00 % 92.00/ min 18.00/min 210 74325 1 74.00 mm[Hg] - Lying Down 147.00 mm[Hg] - Lying Down 85.00/ min 211 97162 2 72.00 mm[Hg] - Sitting 138.00 mm[Hg] - Sitting 98.40 Tympanic 86.00/ min 18.00/min 76089 211 58517 2 59.00 mm[Hg] - Sitting 117.00 mm[Hg] - Sitting 98.20 Tympanic 99.00 % 81.00/ min 18.00/min 57877 211 12175 5 69.00 mm[Hg] - Sitting 145.00 mm[Hg] - Sitting 55981 211 42607 9 69.00 mm[Hg] - Sitting 145.00 mm[Hg] - Sitting 22414 211 72779 5 69.00 mm[Hg] - Sitting 145.00 mm[Hg] - Sitting 80548 211 79738 6 69.00 mm[Hg] - Sitting 09206 212 67948 7 59.00 mm[Hg] - Sitting 117.00 mm[Hg] - Sitting 98.20 Tympanic 81.00/ min 18.00/min 46143 212 74349 9 97.80 Tympanic 05953 212 19207 6 55.00 mm[Hg] - Sitting 109.00 mm[Hg] - Sitting 97.30 Tympanic 94.00 % 75.00/ min 18.00/min 34439 212 67846 5 68.00 mm[Hg] - Sitting 128.00 mm[Hg] - Sitting 97.80 Tympanic 80.00/ min 18.00/min 86744 212 59902 4 97.50 Tympanic 80642 212 34862 9 04233 212 13178 6 71.00 mm[Hg] - Sitting 117.00 mm[Hg] - Sitting 48922 213 22375 0 60.00 mm[Hg] - Sitting 116.00 mm[Hg] - Sitting 98.40 Forehead Scan 94.00 % 72.00/ min 16.00/min 85739 213 70777 7 70.00 mm[Hg] - Sitting 118.00 mm[Hg] - Sitting 98.00 Tympanic 82.00/ min 18.00/min 02212 213 34686 3 97.90 Tympanic 60839 213 80224 5 73.00 mm[Hg] - Lying Down 127.00 mm[Hg] - Lying Down 38023 213 24486 3 82732 214 96377 1 62.00 mm[Hg] - Sitting 127.00 mm[Hg] - Sitting 97.80 Tympanic 94.00 % 72.00/ min 16.00/min 41832 214 59241 4 59.00 mm[Hg] - Lying Down 113.00 mm[Hg] - Lying Down 04606 215 50768 0 56.00 mm[Hg] - Sitting 101.00 mm[Hg] - Sitting 97.80 Tympanic 95.00 % 71.00/ min 16.00/min 14843 215 34219 5 62 NI 14806 215 78108 8 57.00 mm[Hg] - Lying Down 113.00 mm[Hg] - Lying Down 87981 216 37403 3 71.00 mm[Hg] - Sitting 161.00 mm[Hg] - Sitting 98.10 Tympanic 93.00 % 81.00/ min 16.00/min 216 78936 1 72.00 mm[Hg] - Sitting 115.00 mm[Hg] - Sitting 08072 217 09945 2 26084 217 55478 4 62.00 mm[Hg] - Sitting 112.00 mm[Hg] - Sitting 13747 217 82880 3 57.00 mm[Hg] - Sitting 114.00 mm[Hg] - Sitting 98.30 Tympanic 98.00 % 78.00/ min 20.00/min 217 33067 4 62.00 mm[Hg] - Lying Down 111.00 mm[Hg] - Lying Down 95379 218 32641 0 70.00 mm[Hg] - Sitting 158.00 mm[Hg] - Sitting 97.60 Tympanic 97.00 % 68.00/ min 18.00/min 31295 218 43156 5 65.00 mm[Hg] - Lying Down 113.00 mm[Hg] - Lying Down 63768 219 51376 1 67.00 mm[Hg] - Sitting 112.00 mm[Hg] - Sitting 76754 220 77417 0 82.00 mm[Hg] - Sitting 160.00 mm[Hg] - Sitting 97.90 Forehead Scan 95.00 % 87.00/ min 16.00/min 82907 220 39058 7 69.00 mm[Hg] - Sitting 119.00 mm[Hg] - Sitting 14944 221 99282 1 82.00 mm[Hg] - Sitting 156.00 mm[Hg] - Sitting 98.20 Tympanic 95.00 % 72.00/ min 18.00/min 27230 221 76316 1 78.00 mm[Hg] - Sitting 148.00 mm[Hg] - Sitting 79399 222 69056 0 81.00 mm[Hg] - Sitting 161.00 mm[Hg] - Sitting 97.70 Tympanic 94.00 % 80.00/ min 18.00/min 222 23760 3 87.00 mm[Hg] - Sitting 141.00 mm[Hg] - Sitting 223 91667 9 68.00 mm[Hg] - Sitting 138.00 mm[Hg] - Sitting 98.10 Tympanic 92.00 % 85.00/ min 18.00/min 223 04776 4 67.00 mm[Hg] - Sitting 128.00 mm[Hg] - Sitting 224 46052 6 224 96607 5 73.00 mm[Hg] - Lying Down 151.00 mm[Hg] - Lying Down 98.40 Tympanic 95.00 % 75.00/ min 18.00/min 224 13194 3 63.00 mm[Hg] - Sitting 124.00 mm[Hg] - Sitting 225 05811 1 97.30 Tympanic 95.00 % 72.00/ min 20.00/min 225 02757 6 67.00 mm[Hg] - Sitting 132.00 mm[Hg] - Sitting 226 99608 2 67.00 mm[Hg] - Sitting 121.00 mm[Hg] - Sitting 227 31934 0 70.00 mm[Hg] - Sitting 137.00 mm[Hg] - Sitting 98.70 Forehead Scan 96.00 % 70.00/ min 16.00/min 227 78057 6 69.00 mm[Hg] - Sitting 131.00 mm[Hg] - Sitting 228 52323 7 79.00 mm[Hg] - Lying Down 181.00 mm[Hg] - Lying Down 98.40 Tympanic 98.00 % 75.00/ min 20.00/min 70974 228 91282 1 68.00 mm[Hg] - Lying Down 130.00 mm[Hg] - Lying Down 229 54315 6 80.00 mm[Hg] - Lying Down 183.00 mm[Hg] - Lying Down 98.60 Tympanic 97.00 % 75.00/ min 16.00/min 229 08469 4 74.00 mm[Hg] - Lying Down 161.00 mm[Hg] - Lying Down 77.00/ min 229 09156 9 87.00 mm[Hg] - Sitting 175.00 mm[Hg] - Sitting 06547 230 30794 7 83.00 mm[Hg] - Sitting 186.00 mm[Hg] - Sitting 98.30 Tympanic 94.00 % 86.00/ min 18.00/min 84554 230 29370 6 70.00 mm[Hg] - Sitting 125.00 mm[Hg] - Sitting 34380 231 33295 8 25829 231 12866 4 77.00 mm[Hg] - Sitting 159.00 mm[Hg] - Sitting 98.70 Tympanic 95.00 % 78.00/ min 18.00/min 86239 231 18313 8 77.00 mm[Hg] - Sitting 139.00 mm[Hg] - Sitting 17343 101 39826 3 98.40 Tympanic 95.00 % 85.00/ min 20.00/min 33717 101 89153 5 107.00 NI 98.40 Tympanic 86.00/ min 20.00/min 70763 101 51252 7 107.00 NI 98.40 Tympanic 86.00/ min 20.00/min 40077 101 99256 2 72.00 mm[Hg] - Sitting 136.00 mm[Hg] - Sitting 72711 102 04934 8 77.00 mm[Hg] - Sitting 160.00 mm[Hg] - Sitting 98.20 Tympanic 94.00 % 83.00/ min 18.00/min 17588 102 93274 4 67.00 mm[Hg] - Sitting 132.00 mm[Hg] - Sitting 71189 103 01039 0 98.60 Forehead Scan 97.00 % 86.00/ min 16.00/min 85019 103 98578 0 81.00 mm[Hg] - Sitting 130.00 mm[Hg] - Sitting 11286 104 99683 7 73.00 mm[Hg] - Sitting 124.00 mm[Hg] - Sitting
--- OUTSIDE RECORDS SUMMARY | 2024-04-10 03:14 | External Medical Summary | Continuity Of Care Document ---
Author Name Unknown Address [address] [address] Organization [facility] () Care Team Providers Care Repatcher Name Role Phone DO Alonso Amy Primary Care Provider [phone] Allergies Allergy Reaction Start Date End Date [...] 3 0.1 mL 01/29 Inactiv e 2023 20480 76658 0 1 time Intrad ermal False Tubersol 5 tub. unit/0.1 mL intradermal injection solution [Tuberculin PPD] 0.1mL Intradermal 1 time For PPD 2nd Step Give 2nd Step PPD Day 1 and Read results Day 3 (schedule 7 days after 1st READ) 0.1mL 02/07 Inactiv e 2023 23608 12715 0 1 time Intrad ermal False Oxycodone 5 mg tablet [generic] 5mg By Mouth Every 4 hours as needed for severe pain for pain rate 7-10. For right pubis fracture 5mg 01/27 Inactiv e 2023 57584 90997 1 Every 4 hours as needed By Mouth False OXYCODONE 5 MG TABLET [GENERIC]IM MEDIATE RELEASE 2.5mg By Mouth Every 4 hours as needed tablet po for moderate pain, pain rate 4-6 on pain scale 1-10. For pain 2.5mg 01/27 Inactiv e 2023 Every 4 hours as needed By Mouth False Oxycodone 5 mg tablet [generic] 01/27 Inactiv e 2023 52274 05112 1 Oxycodone 5 mg tablet [generic] 5mg By Mouth Every 4 hours as needed for severe pain for pain rate 7-10. For right pubis fracture 5mg 01/29 Inactiv e 2023 73796 43470 1 Every 4 hours as needed By [...] For Muscle spasms 175mg 2023 Active 2023 50813 06408 1 Every 6 hours as needed By Mouth False Cephalexin 500 mg capsule [generic] 500mg By Mouth Every 8 hours For UTI 500mg 01/30 Inactiv e 2023 31332 51616 1 Every 8 hours By Mouth False Aspirin 81 mg chewable tablet [generic] 81 mg By Mouth Once daily For AAA 81 mg 2023 Active 2023 38458 08243 6 Once daily By Mouth False Colace 100 mg capsule 100mg By Mouth Twice daily For constipation 100mg 2023 Active 2023 99573 59969 1 Twice daily By Mouth False Enoxaparin 300 mg/3 mL subcutaneou s solution [generic] 20mg Subcutaneous Once daily For anticoag. 20mg 02/06 Inactiv e 2023 64388 01638 1 Once daily Subcut aneous False Losartan 50 mg tablet [generic] 50 By Mouth Once daily For HTN 50 02/16 Inactiv e 2023 58854 20927 9 Once daily By Mouth False Miralax 17 gram/dose oral powder 17 gram By Mouth Once daily For contispation 17 gram 02/17 Inactiv e 2023 78155 67972 0 Once daily By Mouth False Senna 8.6 mg tablet 2 tabs By Mouth Once daily For constipation 2 tabs 02/17 Inactiv e 2023 76938 57938 1 Once daily By Mouth False Simvastatin 20 mg tablet [generic] 20 mg By Mouth Once daily For Hyperlipidemi a 20 mg 2023 Active 2023 02937 50094 0 Once daily By Mouth False Spiriva with HandiHaler 18 mcg and inhalation capsules 1 capsule Inhalation Once daily For COPD 1 capsule 2023 Active 2023 21784 46856 1 Once daily Inhala tion False Ventolin HFA 90 mcg/actuati on aerosol inhaler 2 puff Inhalation Every 4 hours as needed For COPD 2 puff 2023 Active 2023 82428 30042 0 Every 4 hours as needed Inhala tion False ProSource No Carb 15 gram-60 kcal/30 mL oral liquid 30ml By Mouth Twice daily For Protien supplement 30ml 01/30 Inactiv e 2023 68761 25259 5 Twice daily By Mouth False Albuterol sulfate 2.5 mg/3 mL (0.083 %) solution for nebulizatio n [generic] 3 ml Inhalation Every 6 hours as needed For wheezing 3 ml 2023 Active 2023 89963 68928 3 Every 6 hours as needed Inhala tion False Acetaminoph en 325 mg tablet [generic] 650 mg By Mouth Every 6 hours For Mild Pain 650 mg 01/29 Inactiv e 2023 31705 82688 0 Every 6 hours By Mouth False Tylenol 325 mg tablet 2 tabs By Mouth Every 4 hours as needed For Pain DO NOT EXCEED 3000 MG APAP/24 Hours 2 tabs 2023 Active 2023 94664 51605 0 Every 4 hours as needed By Mouth False Tylenol 325 mg tablet 2 tabs By Mouth Every 4 hours as needed For Fever >100 DO NOT EXCEED 3000 MG APAP/24 Hours 2 tabs 2023 Active 2023 01903 47451 0 Every 4 hours as needed By Mouth False Dulcolax (bisacodyl) 10 mg rectal suppository One Suppository per rectum PRN if Milk of Magnisia ineffective. Give on day 5 of no BM 1 sup 2023 Active 2023 66401 00989 1 Daily as needed Rectal False Fleet Enema 19 gram-7 gram/118 mL Administer per rectum PRN one time if dulcolax suppository not effective. Give on day 6 of no BM 1 2023 Active 2023 07128 69729 6 Daily as needed Rectal False Milk of Magnesia 400 mg/5 mL oral suspension [Magnesium hydroxide] PRN 30ml By Mouth Daily as needed for constipation one time daily if no BM, on day 4 of no BM (PRN refer to instructions) For Constipation 30 mL 2023 Active 2023 15231 29129 6 Daily as needed By Mouth False Oxycodone 5 mg tablet [generic] 01/29 Inactiv e 2023 93323 70484 1 Oxycodone 5 mg tablet [generic] 5mg By Mouth Every 4 hours as needed for severe pain for pain rate 7-10. For right pubis fracture 5mg 01/31 Inactiv e 2023 49873 25413 1 Every 4 hours as needed By Mouth False Cymbalta 30 mg capsule,del ayed release 30 mg By Mouth Once daily For Depression 30 mg 02/04 Inactiv e 2023 21659 94253 0 Once daily By Mouth False Acetaminoph en 500 mg tablet [generic] 1000 mg By Mouth Twice daily not to exceed 3gm APAP in 24 hours For Pain 1000 mg 2023 Active 2023 20308 26707 8 Twice daily By Mouth False Healthshake 118 ml BID 118 ml By Mouth Twice daily Healthshake 118 ml BID For MNA of 7 - malnourished - please record total ml consumed 118 ml 2023 Active 2023 Twice daily By Mouth False Oxycodone 5 mg tablet [generic] 01/31 Inactiv e 2023 88883 68628 1 Oxycodone 5 mg tablet [generic] 5mg By Mouth Every 4 hours as needed for severe pain for pain rate 7-10. For right pubis fracture 5mg 02/01 Inactiv e 2023 45195 94221 1 Every 4 hours as needed By Mouth False Oxycodone 5 mg tablet [generic] 5mg By Mouth Every 4 hours as needed for severe pain 7-10 For right pubis fx 5mg 2023 Active 2023 78471 69833 1 Every 4 hours as needed By Mouth False Cymbalta 60 mg capsule,del ayed release 60mg Once daily depression 60mg 2023 Active 2023 83332 62196 0 Once daily By Mouth False Enoxaparin 40 mg/0.4 mL subcutaneou s syringe [generic] 20mg Subcutaneous Once daily For anticoag 20mg 2023 Active 2023 41406 98938 0 Once daily Subcut aneous False Losartan 50 mg tablet [generic] 75 mg By Mouth Once daily For ESSENTIAL (PRIMARY) HYPERTENSION 75 mg 02/17 Inactiv e 2023 54124 85910 9 Once daily By Mouth I10. False Losartan 50 mg tablet [generic] 75 mg By Mouth ( 1.5 TABS) Once daily For ESSENTIAL (PRIMARY) HYPERTENSION 75 mg 2023 Active 2023 73635 51607 9 Once daily By Mouth I10. False Senna 8.6 mg tablet 2 tabs By Mouth Once daily As Needed For constipation 2 tabs 2023 Active 2023 42966 26617 1 Once daily By Mouth False Miralax 17 gram/dose oral powder 17 gram By Mouth As Needed For contispation 17 gram 2023 Active 2023 27983 83731 0 By Mouth False Problems Code Description [...] Temperature SpO2 Blood Sugar Pulse Respirations 210 41272 7 78.00 mm[Hg] - Lying Down 186.00 mm[Hg] - Lying Down 109.80 NI 97.90 Forehead Scan 91.00 % 92.00/ min 18.00/min 210 53717 1 74.00 mm[Hg] - Lying Down 147.00 mm[Hg] - Lying Down 85.00/ min 211 18421 2 72.00 mm[Hg] - Sitting 138.00 mm[Hg] - Sitting 98.40 Tympanic 86.00/ min 18.00/min 52333 211 56721 2 59.00 mm[Hg] - Sitting 117.00 mm[Hg] - Sitting 98.20 Tympanic 99.00 % 81.00/ min 18.00/min 35276 211 19274 5 69.00 mm[Hg] - Sitting 145.00 mm[Hg] - Sitting 43488 211 61614 9 69.00 mm[Hg] - Sitting 145.00 mm[Hg] - Sitting 19172 211 48248 5 69.00 mm[Hg] - Sitting 145.00 mm[Hg] - Sitting 12678 211 40578 6 69.00 mm[Hg] - Sitting 20429 212 49484 7 59.00 mm[Hg] - Sitting 117.00 mm[Hg] - Sitting 98.20 Tympanic 81.00/ min 18.00/min 83270 212 06732 9 97.80 Tympanic 44368 212 17127 6 55.00 mm[Hg] - Sitting 109.00 mm[Hg] - Sitting 97.30 Tympanic 94.00 % 75.00/ min 18.00/min 09142 212 99709 5 68.00 mm[Hg] - Sitting 128.00 mm[Hg] - Sitting 97.80 Tympanic 80.00/ min 18.00/min 68821 212 50654 4 97.50 Tympanic 79126 212 74637 9 30319 212 63601 6 71.00 mm[Hg] - Sitting 117.00 mm[Hg] - Sitting 49406 213 31804 0 60.00 mm[Hg] - Sitting 116.00 mm[Hg] - Sitting 98.40 Forehead Scan 94.00 % 72.00/ min 16.00/min 55040 213 97420 7 70.00 mm[Hg] - Sitting 118.00 mm[Hg] - Sitting 98.00 Tympanic 82.00/ min 18.00/min 44169 213 11304 3 97.90 Tympanic 08228 213 67291 5 73.00 mm[Hg] - Lying Down 127.00 mm[Hg] - Lying Down 04276 213 52400 3 44466 214 46644 1 62.00 mm[Hg] - Sitting 127.00 mm[Hg] - Sitting 97.80 Tympanic 94.00 % 72.00/ min 16.00/min 08323 214 74218 4 59.00 mm[Hg] - Lying Down 113.00 mm[Hg] - Lying Down 215 70235 0 56.00 mm[Hg] - Sitting 101.00 mm[Hg] - Sitting 97.80 Tympanic 95.00 % 71.00/ min 16.00/min 215 99397 5 62 NI 215 35749 8 57.00 mm[Hg] - Lying Down 113.00 mm[Hg] - Lying Down
--- OUTSIDE RECORDS SUMMARY | 2024-04-10 03:14 | External Medical Summary | Continuity Of Care Document ---
Author Name Unknown Address [address] [address] Organization [facility] () Care Team Providers Care Laundry Machine Tender Name Role Phone DO Alonso Amy Primary Care Provider [phone] Allergies Allergy Reaction Start Date End Date [...] 3 0.1 mL 01/29 Inactiv e 2023 99242 53240 0 1 time Intrad ermal False Tubersol 5 tub. unit/0.1 mL intradermal injection solution [Tuberculin PPD] 0.1mL Intradermal 1 time For PPD 2nd Step Give 2nd Step PPD Day 1 and Read results Day 3 (schedule 7 days after 1st READ) 0.1mL 02/07 Inactiv e 2023 28997 80130 0 1 time Intrad ermal False Oxycodone 5 mg tablet [generic] 5mg By Mouth Every 4 hours as needed for severe pain for pain rate 7-10. For right pubis fracture 5mg 01/27 Inactiv e 2023 30798 00763 1 Every 4 hours as needed By Mouth False OXYCODONE 5 MG TABLET [GENERIC]IM MEDIATE RELEASE 2.5mg By Mouth Every 4 hours as needed tablet po for moderate pain, pain rate 4-6 on pain scale 1-10. For pain 2.5mg 01/27 Inactiv e 2023 Every 4 hours as needed By Mouth False Oxycodone 5 mg tablet [generic] 01/27 Inactiv e 2023 14606 40290 1 Oxycodone 5 mg tablet [generic] 5mg By Mouth Every 4 hours as needed for severe pain for pain rate 7-10. For right pubis fracture 5mg 01/29 Inactiv e 2023 52313 82080 1 Every 4 hours as needed By [...] For Muscle spasms 175mg 2023 Active 2023 41845 98698 1 Every 6 hours as needed By Mouth False Cephalexin 500 mg capsule [generic] 500mg By Mouth Every 8 hours For UTI 500mg 01/30 Inactiv e 2023 14530 52915 1 Every 8 hours By Mouth False Aspirin 81 mg chewable tablet [generic] 81 mg By Mouth Once daily For AAA 81 mg 2023 Active 2023 70045 36746 6 Once daily By Mouth False Colace 100 mg capsule 100mg By Mouth Twice daily For constipation 100mg 2023 Active 2023 14955 33444 1 Twice daily By Mouth False Enoxaparin 300 mg/3 mL subcutaneou s solution [generic] 20mg Subcutaneous Once daily For anticoag. 20mg 02/06 Inactiv e 2023 99030 60610 1 Once daily Subcut aneous False Losartan 50 mg tablet [generic] 50 By Mouth Once daily For HTN 50 02/16 Inactiv e 2023 77670 94843 9 Once daily By Mouth False Miralax 17 gram/dose oral powder 17 gram By Mouth Once daily For contispation 17 gram 02/17 Inactiv e 2023 84327 75473 0 Once daily By Mouth False Senna 8.6 mg tablet 2 tabs By Mouth Once daily For constipation 2 tabs 02/17 Inactiv e 2023 86530 59470 1 Once daily By Mouth False Simvastatin 20 mg tablet [generic] 20 mg By Mouth Once daily For Hyperlipidemi a 20 mg 2023 Active 2023 09846 20655 0 Once daily By Mouth False Spiriva with HandiHaler 18 mcg and inhalation capsules 1 capsule Inhalation Once daily For COPD 1 capsule 2023 Active 2023 02909 30028 1 Once daily Inhala tion False Ventolin HFA 90 mcg/actuati on aerosol inhaler 2 puff Inhalation Every 4 hours as needed For COPD 2 puff 2023 Active 2023 21987 86210 0 Every 4 hours as needed Inhala tion False ProSource No Carb 15 gram-60 kcal/30 mL oral liquid 30ml By Mouth Twice daily For Protien supplement 30ml 01/30 Inactiv e 2023 93016 33043 5 Twice daily By Mouth False Albuterol sulfate 2.5 mg/3 mL (0.083 %) solution for nebulizatio n [generic] 3 ml Inhalation Every 6 hours as needed For wheezing 3 ml 2023 Active 2023 43045 91182 3 Every 6 hours as needed Inhala tion False Acetaminoph en 325 mg tablet [generic] 650 mg By Mouth Every 6 hours For Mild Pain 650 mg 01/29 Inactiv e 2023 70394 67418 0 Every 6 hours By Mouth False Tylenol 325 mg tablet 2 tabs By Mouth Every 4 hours as needed For Pain DO NOT EXCEED 3000 MG APAP/24 Hours 2 tabs 2023 Active 2023 72785 29624 0 Every 4 hours as needed By Mouth False Tylenol 325 mg tablet 2 tabs By Mouth Every 4 hours as needed For Fever >100 DO NOT EXCEED 3000 MG APAP/24 Hours 2 tabs 2023 Active 2023 31676 32957 0 Every 4 hours as needed By Mouth False Dulcolax (bisacodyl) 10 mg rectal suppository One Suppository per rectum PRN if Milk of Magnisia ineffective. Give on day 5 of no BM 1 sup 2023 Active 2023 87963 85961 1 Daily as needed Rectal False Fleet Enema 19 gram-7 gram/118 mL Administer per rectum PRN one time if dulcolax suppository not effective. Give on day 6 of no BM 1 2023 Active 2023 75554 22256 6 Daily as needed Rectal False Milk of Magnesia 400 mg/5 mL oral suspension [Magnesium hydroxide] PRN 30ml By Mouth Daily as needed for constipation one time daily if no BM, on day 4 of no BM (PRN refer to instructions) For Constipation 30 mL 2023 Active 2023 56147 05958 6 Daily as needed By Mouth False Oxycodone 5 mg tablet [generic] 01/29 Inactiv e 2023 06704 26910 1 Oxycodone 5 mg tablet [generic] 5mg By Mouth Every 4 hours as needed for severe pain for pain rate 7-10. For right pubis fracture 5mg 01/31 Inactiv e 2023 76303 22474 1 Every 4 hours as needed By Mouth False Cymbalta 30 mg capsule,del ayed release 30 mg By Mouth Once daily For Depression 30 mg 02/04 Inactiv e 2023 90776 91267 0 Once daily By Mouth False Acetaminoph en 500 mg tablet [generic] 1000 mg By Mouth Twice daily not to exceed 3gm APAP in 24 hours For Pain 1000 mg 2023 Active 2023 14804 63546 8 Twice daily By Mouth False Healthshake 118 ml BID 118 ml By Mouth Twice daily Healthshake 118 ml BID For MNA of 7 - malnourished - please record total ml consumed 118 ml 2023 Active 2023 Twice daily By Mouth False Oxycodone 5 mg tablet [generic] 01/31 Inactiv e 2023 57876 88779 1 Oxycodone 5 mg tablet [generic] 5mg By Mouth Every 4 hours as needed for severe pain for pain rate 7-10. For right pubis fracture 5mg 02/01 Inactiv e 2023 89220 32410 1 Every 4 hours as needed By Mouth False Oxycodone 5 mg tablet [generic] 5mg By Mouth Every 4 hours as needed for severe pain 7-10 For right pubis fx 5mg 2023 Active 2023 80790 61914 1 Every 4 hours as needed By Mouth False Cymbalta 60 mg capsule,del ayed release 60mg Once daily depression 60mg 2023 Active 2023 55090 36671 0 Once daily By Mouth False Enoxaparin 40 mg/0.4 mL subcutaneou s syringe [generic] 20mg Subcutaneous Once daily For anticoag 20mg 2023 Active 2023 45990 97305 0 Once daily Subcut aneous False Losartan 50 mg tablet [generic] 75 mg By Mouth Once daily For ESSENTIAL (PRIMARY) HYPERTENSION 75 mg 02/17 Inactiv e 2023 28904 15298 9 Once daily By Mouth I10. False Losartan 50 mg tablet [generic] 75 mg By Mouth ( 1.5 TABS) Once daily For ESSENTIAL (PRIMARY) HYPERTENSION 75 mg 2023 Active 2023 66793 53013 9 Once daily By Mouth I10. False Senna 8.6 mg tablet 2 tabs By Mouth Once daily As Needed For constipation 2 tabs 2023 Active 2023 91329 60186 1 Once daily By Mouth False Miralax 17 gram/dose oral powder 17 gram By Mouth As Needed For contispation 17 gram 2023 Active 2023 06229 26010 0 By Mouth False Problems Code Description [...] Temperature SpO2 Blood Sugar Pulse Respirations 210 16861 7 78.00 mm[Hg] - Lying Down 186.00 mm[Hg] - Lying Down 109.80 NI 97.90 Forehead Scan 91.00 % 92.00/ min 18.00/min 210 52834 1 74.00 mm[Hg] - Lying Down 147.00 mm[Hg] - Lying Down 85.00/ min 211 07577 2 72.00 mm[Hg] - Sitting 138.00 mm[Hg] - Sitting 98.40 Tympanic 86.00/ min 18.00/min 60769 211 44039 2 59.00 mm[Hg] - Sitting 117.00 mm[Hg] - Sitting 98.20 Tympanic 99.00 % 81.00/ min 18.00/min 96038 211 24268 5 69.00 mm[Hg] - Sitting 145.00 mm[Hg] - Sitting 28563 211 48029 9 69.00 mm[Hg] - Sitting 145.00 mm[Hg] - Sitting 52954 211 76684 5 69.00 mm[Hg] - Sitting 145.00 mm[Hg] - Sitting 85823 211 26318 6 69.00 mm[Hg] - Sitting 29357 212 75391 7 59.00 mm[Hg] - Sitting 117.00 mm[Hg] - Sitting 98.20 Tympanic 81.00/ min 18.00/min 25940 212 24233 9 97.80 Tympanic 45226 212 69549 6 55.00 mm[Hg] - Sitting 109.00 mm[Hg] - Sitting 97.30 Tympanic 94.00 % 75.00/ min 18.00/min 24625 212 69334 5 68.00 mm[Hg] - Sitting 128.00 mm[Hg] - Sitting 97.80 Tympanic 80.00/ min 18.00/min 89647 212 20340 4 97.50 Tympanic 45336 212 69564 9 54014 212 31582 6 71.00 mm[Hg] - Sitting 117.00 mm[Hg] - Sitting 61407 213 68991 0 60.00 mm[Hg] - Sitting 116.00 mm[Hg] - Sitting 98.40 Forehead Scan 94.00 % 72.00/ min 16.00/min 08909 213 08840 7 70.00 mm[Hg] - Sitting 118.00 mm[Hg] - Sitting 98.00 Tympanic 82.00/ min 18.00/min 59215 213 15459 3 97.90 Tympanic 51529 213 44171 5 73.00 mm[Hg] - Lying Down 127.00 mm[Hg] - Lying Down 15183 213 61001 3 56063 214 79080 1 62.00 mm[Hg] - Sitting 127.00 mm[Hg] - Sitting 97.80 Tympanic 94.00 % 72.00/ min 16.00/min 37407 214 22957 4 59.00 mm[Hg] - Lying Down 113.00 mm[Hg] - Lying Down 42801 215 38206 0 56.00 mm[Hg] - Sitting 101.00 mm[Hg] - Sitting 97.80 Tympanic 95.00 % 71.00/ min 16.00/min 78273 215 40597 5 62 NI 16466 215 45310 8 57.00 mm[Hg] - Lying Down 113.00 mm[Hg] - Lying Down 20838 216 12031 3 71.00 mm[Hg] - Sitting 161.00 mm[Hg] - Sitting 98.10 Tympanic 93.00 % 81.00/ min 16.00/min 216 55035 1 72.00 mm[Hg] - Sitting 115.00 mm[Hg] - Sitting 33860 217 91234 2 76891 217 21626 4 62.00 mm[Hg] - Sitting 112.00 mm[Hg] - Sitting 42379 217 00330 3 57.00 mm[Hg] - Sitting 114.00 mm[Hg] - Sitting 98.30 Tympanic 98.00 % 78.00/ min 20.00/min 217 46191 4 62.00 mm[Hg] - Lying Down 111.00 mm[Hg] - Lying Down 32150 218 26047 0 70.00 mm[Hg] - Sitting 158.00 mm[Hg] - Sitting 97.60 Tympanic 97.00 % 68.00/ min 18.00/min 37624 218 81548 5 65.00 mm[Hg] - Lying Down 113.00 mm[Hg] - Lying Down 28836 219 97021 1 67.00 mm[Hg] - Sitting 112.00 mm[Hg] - Sitting 85451 220 11727 0 82.00 mm[Hg] - Sitting 160.00 mm[Hg] - Sitting 97.90 Forehead Scan 95.00 % 87.00/ min 16.00/min 77820 220 26751 7 69.00 mm[Hg] - Sitting 119.00 mm[Hg] - Sitting 98663 221 96365 1 82.00 mm[Hg] - Sitting 156.00 mm[Hg] - Sitting 98.20 Tympanic 95.00 % 72.00/ min 18.00/min 30679 221 73996 1 78.00 mm[Hg] - Sitting 148.00 mm[Hg] - Sitting 40228 222 85804 0 81.00 mm[Hg] - Sitting 161.00 mm[Hg] - Sitting 97.70 Tympanic 94.00 % 80.00/ min 18.00/min 222 52079 3 87.00 mm[Hg] - Sitting 141.00 mm[Hg] - Sitting 223 75792 9 68.00 mm[Hg] - Sitting 138.00 mm[Hg] - Sitting 98.10 Tympanic 92.00 % 85.00/ min 18.00/min 223 38149 4 67.00 mm[Hg] - Sitting 128.00 mm[Hg] - Sitting 224 34296 6 224 57269 5 73.00 mm[Hg] - Lying Down 151.00 mm[Hg] - Lying Down 98.40 Tympanic 95.00 % 75.00/ min 18.00/min 224 20775 3 63.00 mm[Hg] - Sitting 124.00 mm[Hg] - Sitting 225 35628 1 97.30 Tympanic 95.00 % 72.00/ min 20.00/min 225 66096 6 67.00 mm[Hg] - Sitting 132.00 mm[Hg] - Sitting 226 84959 2 67.00 mm[Hg] - Sitting 121.00 mm[Hg] - Sitting 227 91388 0 70.00 mm[Hg] - Sitting 137.00 mm[Hg] - Sitting 98.70 Forehead Scan 96.00 % 70.00/ min 16.00/min 227 45367 6 69.00 mm[Hg] - Sitting 131.00 mm[Hg] - Sitting 228 08842 7 79.00 mm[Hg] - Lying Down 181.00 mm[Hg] - Lying Down 98.40 Tympanic 98.00 % 75.00/ min 20.00/min 21386 228 25003 1 68.00 mm[Hg] - Lying Down 130.00 mm[Hg] - Lying Down 229 70159 6 80.00 mm[Hg] - Lying Down 183.00 mm[Hg] - Lying Down 98.60 Tympanic 97.00 % 75.00/ min 16.00/min 229 70703 4 74.00 mm[Hg] - Lying Down 161.00 mm[Hg] - Lying Down 77.00/ min 73161 229 14224 9 87.00 mm[Hg] - Sitting 175.00 mm[Hg] - Sitting 27279 230 57057 7 83.00 mm[Hg] - Sitting 186.00 mm[Hg] - Sitting 98.30 Tympanic 94.00 % 86.00/ min 18.00/min 64523 230 18553 6 70.00 mm[Hg] - Sitting 125.00 mm[Hg] - Sitting 59539 231 12058 8 63299 231 80470 4 77.00 mm[Hg] - Sitting 159.00 mm[Hg] - Sitting 98.70 Tympanic 95.00 % 78.00/ min 18.00/min 86068 231 74446 8 77.00 mm[Hg] - Sitting 139.00 mm[Hg] - Sitting 71754 101 75162 3 98.40 Tympanic 95.00 % 85.00/ min 20.00/min 81012 101 47825 5 107.00 NI 98.40 Tympanic 86.00/ min 20.00/min 10136 101 22746 7 107.00 NI 98.40 Tympanic 86.00/ min 20.00/min 61763 101 11785 2 72.00 mm[Hg] - Sitting 136.00 mm[Hg] - Sitting 49513 102 88293 8 77.00 mm[Hg] - Sitting 160.00 mm[Hg] - Sitting 98.20 Tympanic 94.00 % 83.00/ min 18.00/min 00715 102 92524 4 67.00 mm[Hg] - Sitting 132.00 mm[Hg] - Sitting
--- OUTSIDE RECORDS SUMMARY | 2024-04-10 03:14 | External Medical Summary | Continuity Of Care Document ---
Author Name Unknown Address [address] [address] Organization [facility] () Care Team Providers Care Legal Editor Name Role Phone DO Alonso Amy Primary Care Provider [phone] Allergies Allergy Reaction Start Date End Date [...] 3 0.1 mL 01/29 Inactiv e 2023 85202 36472 0 1 time Intrad ermal False Tubersol 5 tub. unit/0.1 mL intradermal injection solution [Tuberculin PPD] 0.1mL Intradermal 1 time For PPD 2nd Step Give 2nd Step PPD Day 1 and Read results Day 3 (schedule 7 days after 1st READ) 0.1mL 02/07 Inactiv e 2023 94835 55292 0 1 time Intrad ermal False Oxycodone 5 mg tablet [generic] 5mg By Mouth Every 4 hours as needed for severe pain for pain rate 7-10. For right pubis fracture 5mg 01/27 Inactiv e 2023 18980 79156 1 Every 4 hours as needed By Mouth False OXYCODONE 5 MG TABLET [GENERIC]IM MEDIATE RELEASE 2.5mg By Mouth Every 4 hours as needed tablet po for moderate pain, pain rate 4-6 on pain scale 1-10. For pain 2.5mg 01/27 Inactiv e 2023 Every 4 hours as needed By Mouth False Oxycodone 5 mg tablet [generic] 01/27 Inactiv e 2023 97223 30215 1 Oxycodone 5 mg tablet [generic] 5mg By Mouth Every 4 hours as needed for severe pain for pain rate 7-10. For right pubis fracture 5mg 01/29 Inactiv e 2023 12205 72968 1 Every 4 hours as needed By [...] For Muscle spasms 175mg 2023 Active 2023 62093 59453 1 Every 6 hours as needed By Mouth False Cephalexin 500 mg capsule [generic] 500mg By Mouth Every 8 hours For UTI 500mg 01/30 Inactiv e 2023 03102 92212 1 Every 8 hours By Mouth False Aspirin 81 mg chewable tablet [generic] 81 mg By Mouth Once daily For AAA 81 mg 2023 Active 2023 47696 13012 6 Once daily By Mouth False Colace 100 mg capsule 100mg By Mouth Twice daily For constipation 100mg 2023 Active 2023 18844 28992 1 Twice daily By Mouth False Enoxaparin 300 mg/3 mL subcutaneou s solution [generic] 20mg Subcutaneous Once daily For anticoag. 20mg 02/06 Inactiv e 2023 56733 02266 1 Once daily Subcut aneous False Losartan 50 mg tablet [generic] 50 By Mouth Once daily For HTN 50 02/16 Inactiv e 2023 07188 96815 9 Once daily By Mouth False Miralax 17 gram/dose oral powder 17 gram By Mouth Once daily For contispation 17 gram 02/17 Inactiv e 2023 42660 51031 0 Once daily By Mouth False Senna 8.6 mg tablet 2 tabs By Mouth Once daily For constipation 2 tabs 02/17 Inactiv e 2023 35470 61094 1 Once daily By Mouth False Simvastatin 20 mg tablet [generic] 20 mg By Mouth Once daily For Hyperlipidemi a 20 mg 2023 Active 2023 64831 37203 0 Once daily By Mouth False Spiriva with HandiHaler 18 mcg and inhalation capsules 1 capsule Inhalation Once daily For COPD 1 capsule 2023 Active 2023 08357 12114 1 Once daily Inhala tion False Ventolin HFA 90 mcg/actuati on aerosol inhaler 2 puff Inhalation Every 4 hours as needed For COPD 2 puff 2023 Active 2023 96603 48726 0 Every 4 hours as needed Inhala tion False ProSource No Carb 15 gram-60 kcal/30 mL oral liquid 30ml By Mouth Twice daily For Protien supplement 30ml 01/30 Inactiv e 2023 10141 07579 5 Twice daily By Mouth False Albuterol sulfate 2.5 mg/3 mL (0.083 %) solution for nebulizatio n [generic] 3 ml Inhalation Every 6 hours as needed For wheezing 3 ml 2023 Active 2023 25263 57919 3 Every 6 hours as needed Inhala tion False Acetaminoph en 325 mg tablet [generic] 650 mg By Mouth Every 6 hours For Mild Pain 650 mg 01/29 Inactiv e 2023 86892 41374 0 Every 6 hours By Mouth False Tylenol 325 mg tablet 2 tabs By Mouth Every 4 hours as needed For Pain DO NOT EXCEED 3000 MG APAP/24 Hours 2 tabs 2023 Active 2023 35695 87151 0 Every 4 hours as needed By Mouth False Tylenol 325 mg tablet 2 tabs By Mouth Every 4 hours as needed For Fever >100 DO NOT EXCEED 3000 MG APAP/24 Hours 2 tabs 2023 Active 2023 43977 23992 0 Every 4 hours as needed By Mouth False Dulcolax (bisacodyl) 10 mg rectal suppository One Suppository per rectum PRN if Milk of Magnisia ineffective. Give on day 5 of no BM 1 sup 2023 Active 2023 58596 79631 1 Daily as needed Rectal False Fleet Enema 19 gram-7 gram/118 mL Administer per rectum PRN one time if dulcolax suppository not effective. Give on day 6 of no BM 1 2023 Active 2023 40195 76542 6 Daily as needed Rectal False Milk of Magnesia 400 mg/5 mL oral suspension [Magnesium hydroxide] PRN 30ml By Mouth Daily as needed for constipation one time daily if no BM, on day 4 of no BM (PRN refer to instructions) For Constipation 30 mL 2023 Active 2023 56463 38735 6 Daily as needed By Mouth False Oxycodone 5 mg tablet [generic] 01/29 Inactiv e 2023 75160 06770 1 Oxycodone 5 mg tablet [generic] 5mg By Mouth Every 4 hours as needed for severe pain for pain rate 7-10. For right pubis fracture 5mg 01/31 Inactiv e 2023 70150 09791 1 Every 4 hours as needed By Mouth False Cymbalta 30 mg capsule,del ayed release 30 mg By Mouth Once daily For Depression 30 mg 02/04 Inactiv e 2023 70378 66601 0 Once daily By Mouth False Acetaminoph en 500 mg tablet [generic] 1000 mg By Mouth Twice daily not to exceed 3gm APAP in 24 hours For Pain 1000 mg 2023 Active 2023 45056 98629 8 Twice daily By Mouth False Healthshake 118 ml BID 118 ml By Mouth Twice daily Healthshake 118 ml BID For MNA of 7 - malnourished - please record total ml consumed 118 ml 2023 Active 2023 Twice daily By Mouth False Oxycodone 5 mg tablet [generic] 01/31 Inactiv e 2023 57188 06898 1 Oxycodone 5 mg tablet [generic] 5mg By Mouth Every 4 hours as needed for severe pain for pain rate 7-10. For right pubis fracture 5mg 02/01 Inactiv e 2023 77880 56064 1 Every 4 hours as needed By Mouth False Oxycodone 5 mg tablet [generic] 5mg By Mouth Every 4 hours as needed for severe pain 7-10 For right pubis fx 5mg 2023 Active 2023 53145 38276 1 Every 4 hours as needed By Mouth False Cymbalta 60 mg capsule,del ayed release 60mg Once daily depression 60mg 2023 Active 2023 19492 37177 0 Once daily By Mouth False Enoxaparin 40 mg/0.4 mL subcutaneou s syringe [generic] 20mg Subcutaneous Once daily For anticoag 20mg 2023 Active 2023 13847 60512 0 Once daily Subcut aneous False Losartan 50 mg tablet [generic] 75 mg By Mouth Once daily For ESSENTIAL (PRIMARY) HYPERTENSION 75 mg 02/17 Inactiv e 2023 91964 01833 9 Once daily By Mouth I10. False Losartan 50 mg tablet [generic] 75 mg By Mouth ( 1.5 TABS) Once daily For ESSENTIAL (PRIMARY) HYPERTENSION 75 mg 2023 Active 2023 28385 90035 9 Once daily By Mouth I10. False Senna 8.6 mg tablet 2 tabs By Mouth Once daily As Needed For constipation 2 tabs 2023 Active 2023 92814 48647 1 Once daily By Mouth False Miralax 17 gram/dose oral powder 17 gram By Mouth As Needed For contispation 17 gram 2023 Active 2023 08333 67560 0 By Mouth False OXYCODONE 5 MG [...] For Muscle spasms 175mg 2024 Active 2024 46899 95204 1 Every 6 hours as needed By Mouth False Aspirin 81 mg chewable tablet [generic] 81 mg By Mouth Once daily For AAA 81 mg 2024 Active 2024 97522 41985 6 Once daily By Mouth False Colace 100 mg capsule 100mg By Mouth Twice daily For constipation 100mg 2024 Active 2024 39650 08163 1 Twice daily By Mouth False Simvastatin 20 mg tablet [generic] 20 mg By Mouth Once daily For Hyperlipidemi a 20 mg 2024 Active 2024 85809 43708 0 Once daily By Mouth False Spiriva with HandiHaler 18 mcg and inhalation capsules 1 capsule Inhalation Once daily For COPD 1 capsule 2024 Active 2024 52467 61344 1 Once daily Inhala tion False Ventolin HFA 90 mcg/actuati on aerosol inhaler 2 puff Inhalation Every 4 hours as needed For COPD 2 puff 2024 Active 2024 26313 99032 0 Every 4 hours as needed Inhala tion False Albuterol sulfate 2.5 mg/3 mL (0.083 %) solution for nebulizatio n [generic] 3 ml Inhalation Every 6 hours as needed For wheezing 3 ml 2024 Active 2024 13195 36585 3 Every 6 hours as needed Inhala tion False Tylenol 325 mg tablet 2 tabs By Mouth Every 4 hours as needed For Pain DO NOT EXCEED 3000 MG APAP/24 Hours 2 tabs 2024 Active 2024 97099 42646 0 Every 4 hours as needed By Mouth False Tylenol 325 mg tablet 2 tabs By Mouth Every 4 hours as needed For Fever >100 DO NOT EXCEED 3000 MG APAP/24 Hours 2 tabs 2024 Active 2024 99656 52476 0 Every 4 hours as needed By Mouth False Dulcolax (bisacodyl) 10 mg rectal suppository One Suppository per rectum PRN if Milk of Magnisia ineffective. Give on day 5 of no BM 1 sup 2024 Active 2024 00405 02270 1 Daily as needed Rectal False Fleet Enema 19 gram-7 gram/118 mL Administer per rectum PRN one time if dulcolax suppository not effective. Give on day 6 of no BM 1 2024 Active 2024 60225 01817 6 Daily as needed Rectal False Milk of Magnesia 400 mg/5 mL oral suspension [Magnesium hydroxide] PRN 30ml By Mouth Daily as needed for constipation one time daily if no BM, on day 4 of no BM (PRN refer to instructions) For Constipation 30 mL 2024 Active 2024 34913 37474 6 Daily as needed By Mouth False Acetaminoph en 500 mg tablet [generic] 1000 mg By Mouth Twice daily not to exceed 3gm APAP in 24 hours For Pain 1000 mg 2024 Active 2024 72488 46729 8 Twice daily By Mouth False Healthshake [...] right pubis fx 5mg 2024 Active 2024 50901 21897 1 Every 4 hours as needed By Mouth False Cymbalta 60 mg capsule,del ayed release 60mg Once daily depression 60mg 2024 Active 2024 65873 08611 0 Once daily By Mouth False Enoxaparin 40 mg/0.4 mL subcutaneou s syringe [generic] 20mg Subcutaneous Once daily For anticoag 20mg 2024 Active 2024 09648 78904 0 Once daily Subcut aneous False Losartan 50 mg tablet [generic] 75 mg By Mouth ( 1.5 TABS) Once daily For ESSENTIAL (PRIMARY) HYPERTENSION 75 mg 2024 Active 2024 92786 60791 9 Once daily By Mouth I10. False Senna 8.6 mg tablet 2 tabs By Mouth Once daily As Needed For constipation 2 tabs 2024 Active 2024 48066 48805 1 Once daily By Mouth False Miralax 17 gram/dose oral powder 17 gram By Mouth As Needed For contispation 17 gram 2024 Active 2024 38249 44181 0 By Mouth False Problems Code Description [...] Temperature SpO2 Blood Sugar Pulse Respirations 210 52184 7 78.00 mm[Hg] - Lying Down 186.00 mm[Hg] - Lying Down 109.80 NI 97.90 Forehead Scan 91.00 % 92.00/ min 18.00/min 210 53827 1 74.00 mm[Hg] - Lying Down 147.00 mm[Hg] - Lying Down 85.00/ min 211 62955 2 72.00 mm[Hg] - Sitting 138.00 mm[Hg] - Sitting 98.40 Tympanic 86.00/ min 18.00/min 211 31260 2 59.00 mm[Hg] - Sitting 117.00 mm[Hg] - Sitting 98.20 Tympanic 99.00 % 81.00/ min 18.00/min 211 38208 5 69.00 mm[Hg] - Sitting 145.00 mm[Hg] - Sitting 211 37099 9 69.00 mm[Hg] - Sitting 145.00 mm[Hg] - Sitting 211 22049 5 69.00 mm[Hg] - Sitting 145.00 mm[Hg] - Sitting 211 28156 6 69.00 mm[Hg] - Sitting 212 79813 7 59.00 mm[Hg] - Sitting 117.00 mm[Hg] - Sitting 98.20 Tympanic 81.00/ min 18.00/min 212 25081 9 97.80 Tympanic 212 74202 6 55.00 mm[Hg] - Sitting 109.00 mm[Hg] - Sitting 97.30 Tympanic 94.00 % 75.00/ min 18.00/min 212 30743 5 68.00 mm[Hg] - Sitting 128.00 mm[Hg] - Sitting 97.80 Tympanic 80.00/ min 18.00/min 63384 212 81416 4 97.50 Tympanic 25411 212 95824 9 48501 212 86661 6 71.00 mm[Hg] - Sitting 117.00 mm[Hg] - Sitting 28219 213 18954 0 60.00 mm[Hg] - Sitting 116.00 mm[Hg] - Sitting 98.40 Forehead Scan 94.00 % 72.00/ min 16.00/min 18174 213 69935 7 70.00 mm[Hg] - Sitting 118.00 mm[Hg] - Sitting 98.00 Tympanic 82.00/ min 18.00/min 79908 213 58820 3 97.90 Tympanic 29613 213 08853 5 73.00 mm[Hg] - Lying Down 127.00 mm[Hg] - Lying Down 65119 213 76870 3 46376 214 45867 1 62.00 mm[Hg] - Sitting 127.00 mm[Hg] - Sitting 97.80 Tympanic 94.00 % 72.00/ min 16.00/min 75035 214 04858 4 59.00 mm[Hg] - Lying Down 113.00 mm[Hg] - Lying Down 97470 215 29659 0 56.00 mm[Hg] - Sitting 101.00 mm[Hg] - Sitting 97.80 Tympanic 95.00 % 71.00/ min 16.00/min 59601 215 82755 5 62 NI 49118 215 11289 8 57.00 mm[Hg] - Lying Down 113.00 mm[Hg] - Lying Down 81162 216 21493 3 71.00 mm[Hg] - Sitting 161.00 mm[Hg] - Sitting 98.10 Tympanic 93.00 % 81.00/ min 16.00/min 38779 216 09598 1 72.00 mm[Hg] - Sitting 115.00 mm[Hg] - Sitting 80712 217 59848 2 67982 217 99474 4 62.00 mm[Hg] - Sitting 112.00 mm[Hg] - Sitting 62813 217 24557 3 57.00 mm[Hg] - Sitting 114.00 mm[Hg] - Sitting 98.30 Tympanic 98.00 % 78.00/ min 20.00/min 98741 217 68324 4 62.00 mm[Hg] - Lying Down 111.00 mm[Hg] - Lying Down 41403 218 24582 0 70.00 mm[Hg] - Sitting 158.00 mm[Hg] - Sitting 97.60 Tympanic 97.00 % 68.00/ min 18.00/min 25887 218 26568 5 65.00 mm[Hg] - Lying Down 113.00 mm[Hg] - Lying Down 34412 219 15406 1 67.00 mm[Hg] - Sitting 112.00 mm[Hg] - Sitting 00074 220 51019 0 82.00 mm[Hg] - Sitting 160.00 mm[Hg] - Sitting 97.90 Forehead Scan 95.00 % 87.00/ min 16.00/min 220 98339 7 69.00 mm[Hg] - Sitting 119.00 mm[Hg] - Sitting 79492 221 42087 1 82.00 mm[Hg] - Sitting 156.00 mm[Hg] - Sitting 98.20 Tympanic 95.00 % 72.00/ min 18.00/min 77548 221 93960 1 78.00 mm[Hg] - Sitting 148.00 mm[Hg] - Sitting 09710 222 27476 0 81.00 mm[Hg] - Sitting 161.00 mm[Hg] - Sitting 97.70 Tympanic 94.00 % 80.00/ min 18.00/min 39900 222 47149 3 87.00 mm[Hg] - Sitting 141.00 mm[Hg] - Sitting 96081 223 75649 9 68.00 mm[Hg] - Sitting 138.00 mm[Hg] - Sitting 98.10 Tympanic 92.00 % 85.00/ min 18.00/min 37066 223 21271 4 67.00 mm[Hg] - Sitting 128.00 mm[Hg] - Sitting 04470 224 62348 6 41633 224 71288 5 73.00 mm[Hg] - Lying Down 151.00 mm[Hg] - Lying Down 98.40 Tympanic 95.00 % 75.00/ min 18.00/min 60310 224 24969 3 63.00 mm[Hg] - Sitting 124.00 mm[Hg] - Sitting 78072 225 70780 1 97.30 Tympanic 95.00 % 72.00/ min 20.00/min 45633 225 52434 6 67.00 mm[Hg] - Sitting 132.00 mm[Hg] - Sitting 05940 226 74366 2 67.00 mm[Hg] - Sitting 121.00 mm[Hg] - Sitting 227 02603 0 70.00 mm[Hg] - Sitting 137.00 mm[Hg] - Sitting 98.70 Forehead Scan 96.00 % 70.00/ min 16.00/min 227 25340 6 69.00 mm[Hg] - Sitting 131.00 mm[Hg] - Sitting 228 93154 7 79.00 mm[Hg] - Lying Down 181.00 mm[Hg] - Lying Down 98.40 Tympanic 98.00 % 75.00/ min 20.00/min 228 11642 1 68.00 mm[Hg] - Lying Down 130.00 mm[Hg] - Lying Down 229 97025 6 80.00 mm[Hg] - Lying Down 183.00 mm[Hg] - Lying Down 98.60 Tympanic 97.00 % 75.00/ min 16.00/min 95060 229 84066 4 74.00 mm[Hg] - Lying Down 161.00 mm[Hg] - Lying Down 77.00/ min 229 79207 9 87.00 mm[Hg] - Sitting 175.00 mm[Hg] - Sitting 14451 230 07832 7 83.00 mm[Hg] - Sitting 186.00 mm[Hg] - Sitting 98.30 Tympanic 94.00 % 86.00/ min 18.00/min 33383 230 97918 6 70.00 mm[Hg] - Sitting 125.00 mm[Hg] - Sitting 55237 231 19988 8 77465 231 14029 4 77.00 mm[Hg] - Sitting 159.00 mm[Hg] - Sitting 98.70 Tympanic 95.00 % 78.00/ min 18.00/min 22779 231 33619 8 77.00 mm[Hg] - Sitting 139.00 mm[Hg] - Sitting 16735 101 10231 3 98.40 Tympanic 95.00 % 85.00/ min 20.00/min 47231 101 25069 5 107.00 NI 98.40 Tympanic 86.00/ min 20.00/min 65526 101 26498 7 107.00 NI 98.40 Tympanic 86.00/ min 20.00/min 80763 101 93189 2 72.00 mm[Hg] - Sitting 136.00 mm[Hg] - Sitting 79746 102 51719 8 77.00 mm[Hg] - Sitting 160.00 mm[Hg] - Sitting 98.20 Tympanic 94.00 % 83.00/ min 18.00/min 77792 102 58728 4 67.00 mm[Hg] - Sitting 132.00 mm[Hg] - Sitting 81366 103 49214 0 98.60 Forehead Scan 97.00 % 86.00/ min 16.00/min 11012 103 27910 0 81.00 mm[Hg] - Sitting 130.00 mm[Hg] - Sitting 88584 104 64328 7 73.00 mm[Hg] - Sitting 124.00 mm[Hg] - Sitting
--- OUTSIDE RECORDS SUMMARY | 2024-04-10 03:14 | External Medical Summary | Continuity Of Care Document ---
Author Name Unknown Address [address] [address] Organization [facility] () Care Team Providers Care Side Puller Name Role Phone DO Alonso Amy Primary Care Provider [phone] Allergies Allergy Reaction Start Date End Date [...] 3 0.1 mL 01/29 Inactiv e 2023 22376 00281 0 1 time Intrad ermal False Tubersol 5 tub. unit/0.1 mL intradermal injection solution [Tuberculin PPD] 0.1mL Intradermal 1 time For PPD 2nd Step Give 2nd Step PPD Day 1 and Read results Day 3 (schedule 7 days after 1st READ) 0.1mL 02/07 Inactiv e 2023 35288 01330 0 1 time Intrad ermal False Oxycodone 5 mg tablet [generic] 5mg By Mouth Every 4 hours as needed for severe pain for pain rate 7-10. For right pubis fracture 5mg 01/27 Inactiv e 2023 70570 19971 1 Every 4 hours as needed By Mouth False OXYCODONE 5 MG TABLET [GENERIC]IM MEDIATE RELEASE 2.5mg By Mouth Every 4 hours as needed tablet po for moderate pain, pain rate 4-6 on pain scale 1-10. For pain 2.5mg 01/27 Inactiv e 2023 Every 4 hours as needed By Mouth False Oxycodone 5 mg tablet [generic] 01/27 Inactiv e 2023 65019 81564 1 Oxycodone 5 mg tablet [generic] 5mg By Mouth Every 4 hours as needed for severe pain for pain rate 7-10. For right pubis fracture 5mg 01/29 Inactiv e 2023 04198 25789 1 Every 4 hours as needed By [...] For Muscle spasms 175mg 2023 Active 2023 97690 73490 1 Every 6 hours as needed By Mouth False Cephalexin 500 mg capsule [generic] 500mg By Mouth Every 8 hours For UTI 500mg 01/30 Inactiv e 2023 85999 35582 1 Every 8 hours By Mouth False Aspirin 81 mg chewable tablet [generic] 81 mg By Mouth Once daily For AAA 81 mg 2023 Active 2023 66874 87205 6 Once daily By Mouth False Colace 100 mg capsule 100mg By Mouth Twice daily For constipation 100mg 2023 Active 2023 68714 92725 1 Twice daily By Mouth False Enoxaparin 300 mg/3 mL subcutaneou s solution [generic] 20mg Subcutaneous Once daily For anticoag. 20mg 02/06 Inactiv e 2023 61534 71656 1 Once daily Subcut aneous False Losartan 50 mg tablet [generic] 50 By Mouth Once daily For HTN 50 02/16 Inactiv e 2023 48092 63289 9 Once daily By Mouth False Miralax 17 gram/dose oral powder 17 gram By Mouth Once daily For contispation 17 gram 02/17 Inactiv e 2023 62767 39626 0 Once daily By Mouth False Senna 8.6 mg tablet 2 tabs By Mouth Once daily For constipation 2 tabs 02/17 Inactiv e 2023 13150 64446 1 Once daily By Mouth False Simvastatin 20 mg tablet [generic] 20 mg By Mouth Once daily For Hyperlipidemi a 20 mg 2023 Active 2023 91417 10789 0 Once daily By Mouth False Spiriva with HandiHaler 18 mcg and inhalation capsules 1 capsule Inhalation Once daily For COPD 1 capsule 2023 Active 2023 42665 45276 1 Once daily Inhala tion False Ventolin HFA 90 mcg/actuati on aerosol inhaler 2 puff Inhalation Every 4 hours as needed For COPD 2 puff 2023 Active 2023 00491 34687 0 Every 4 hours as needed Inhala tion False ProSource No Carb 15 gram-60 kcal/30 mL oral liquid 30ml By Mouth Twice daily For Protien supplement 30ml 01/30 Inactiv e 2023 57326 47566 5 Twice daily By Mouth False Albuterol sulfate 2.5 mg/3 mL (0.083 %) solution for nebulizatio n [generic] 3 ml Inhalation Every 6 hours as needed For wheezing 3 ml 2023 Active 2023 24580 50872 3 Every 6 hours as needed Inhala tion False Acetaminoph en 325 mg tablet [generic] 650 mg By Mouth Every 6 hours For Mild Pain 650 mg 01/29 Inactiv e 2023 01974 30727 0 Every 6 hours By Mouth False Tylenol 325 mg tablet 2 tabs By Mouth Every 4 hours as needed For Pain DO NOT EXCEED 3000 MG APAP/24 Hours 2 tabs 2023 Active 2023 20153 77745 0 Every 4 hours as needed By Mouth False Tylenol 325 mg tablet 2 tabs By Mouth Every 4 hours as needed For Fever >100 DO NOT EXCEED 3000 MG APAP/24 Hours 2 tabs 2023 Active 2023 60928 86375 0 Every 4 hours as needed By Mouth False Dulcolax (bisacodyl) 10 mg rectal suppository One Suppository per rectum PRN if Milk of Magnisia ineffective. Give on day 5 of no BM 1 sup 2023 Active 2023 56580 87170 1 Daily as needed Rectal False Fleet Enema 19 gram-7 gram/118 mL Administer per rectum PRN one time if dulcolax suppository not effective. Give on day 6 of no BM 1 2023 Active 2023 98149 73531 6 Daily as needed Rectal False Milk of Magnesia 400 mg/5 mL oral suspension [Magnesium hydroxide] PRN 30ml By Mouth Daily as needed for constipation one time daily if no BM, on day 4 of no BM (PRN refer to instructions) For Constipation 30 mL 2023 Active 2023 22318 35731 6 Daily as needed By Mouth False Oxycodone 5 mg tablet [generic] 01/29 Inactiv e 2023 27692 93658 1 Oxycodone 5 mg tablet [generic] 5mg By Mouth Every 4 hours as needed for severe pain for pain rate 7-10. For right pubis fracture 5mg 01/31 Inactiv e 2023 35909 90114 1 Every 4 hours as needed By Mouth False Cymbalta 30 mg capsule,del ayed release 30 mg By Mouth Once daily For Depression 30 mg 02/04 Inactiv e 2023 55023 39024 0 Once daily By Mouth False Acetaminoph en 500 mg tablet [generic] 1000 mg By Mouth Twice daily not to exceed 3gm APAP in 24 hours For Pain 1000 mg 2023 Active 2023 31275 10121 8 Twice daily By Mouth False Healthshake 118 ml BID 118 ml By Mouth Twice daily Healthshake 118 ml BID For MNA of 7 - malnourished - please record total ml consumed 118 ml 2023 Active 2023 Twice daily By Mouth False Oxycodone 5 mg tablet [generic] 01/31 Inactiv e 2023 41830 37910 1 Oxycodone 5 mg tablet [generic] 5mg By Mouth Every 4 hours as needed for severe pain for pain rate 7-10. For right pubis fracture 5mg 02/01 Inactiv e 2023 46797 05409 1 Every 4 hours as needed By Mouth False Oxycodone 5 mg tablet [generic] 5mg By Mouth Every 4 hours as needed for severe pain 7-10 For right pubis fx 5mg 2023 Active 2023 77659 69327 1 Every 4 hours as needed By Mouth False Cymbalta 60 mg capsule,del ayed release 60mg Once daily depression 60mg 2023 Active 2023 00238 13547 0 Once daily By Mouth False Enoxaparin 40 mg/0.4 mL subcutaneou s syringe [generic] 20mg Subcutaneous Once daily For anticoag 20mg 2023 Active 2023 17648 79105 0 Once daily Subcut aneous False Losartan 50 mg tablet [generic] 75 mg By Mouth Once daily For ESSENTIAL (PRIMARY) HYPERTENSION 75 mg 02/17 Inactiv e 2023 26864 53430 9 Once daily By Mouth I10. False Losartan 50 mg tablet [generic] 75 mg By Mouth ( 1.5 TABS) Once daily For ESSENTIAL (PRIMARY) HYPERTENSION 75 mg 2023 Active 2023 39711 55402 9 Once daily By Mouth I10. False Senna 8.6 mg tablet 2 tabs By Mouth Once daily As Needed For constipation 2 tabs 2023 Active 2023 34654 82975 1 Once daily By Mouth False Miralax 17 gram/dose oral powder 17 gram By Mouth As Needed For contispation 17 gram 2023 Active 2023 54695 73857 0 By Mouth False Problems Code Description [...] Temperature SpO2 Blood Sugar Pulse Respirations 210 05375 7 78.00 mm[Hg] - Lying Down 186.00 mm[Hg] - Lying Down 109.80 NI 97.90 Forehead Scan 91.00 % 92.00/ min 18.00/min 210 53466 1 74.00 mm[Hg] - Lying Down 147.00 mm[Hg] - Lying Down 85.00/ min 211 63658 2 72.00 mm[Hg] - Sitting 138.00 mm[Hg] - Sitting 98.40 Tympanic 86.00/ min 18.00/min 60045 211 07080 2 59.00 mm[Hg] - Sitting 117.00 mm[Hg] - Sitting 98.20 Tympanic 99.00 % 81.00/ min 18.00/min 98325 211 08718 5 69.00 mm[Hg] - Sitting 145.00 mm[Hg] - Sitting 41458 211 67832 9 69.00 mm[Hg] - Sitting 145.00 mm[Hg] - Sitting 32992 211 82647 5 69.00 mm[Hg] - Sitting 145.00 mm[Hg] - Sitting 78860 211 58486 6 69.00 mm[Hg] - Sitting 16600 212 05617 7 59.00 mm[Hg] - Sitting 117.00 mm[Hg] - Sitting 98.20 Tympanic 81.00/ min 18.00/min 99249 212 71001 9 97.80 Tympanic 29905 212 65431 6 55.00 mm[Hg] - Sitting 109.00 mm[Hg] - Sitting 97.30 Tympanic 94.00 % 75.00/ min 18.00/min 11080 212 93571 5 68.00 mm[Hg] - Sitting 128.00 mm[Hg] - Sitting 97.80 Tympanic 80.00/ min 18.00/min 06694 212 61904 4 97.50 Tympanic 21676 212 46711 9 16207 212 50736 6 71.00 mm[Hg] - Sitting 117.00 mm[Hg] - Sitting 81641 213 99941 0 60.00 mm[Hg] - Sitting 116.00 mm[Hg] - Sitting 98.40 Forehead Scan 94.00 % 72.00/ min 16.00/min 82913 213 04370 7 70.00 mm[Hg] - Sitting 118.00 mm[Hg] - Sitting 98.00 Tympanic 82.00/ min 18.00/min 83094 213 83192 3 97.90 Tympanic 56677 213 68754 5 73.00 mm[Hg] - Lying Down 127.00 mm[Hg] - Lying Down 46726 213 10098 3 95516 214 61943 1 62.00 mm[Hg] - Sitting 127.00 mm[Hg] - Sitting 97.80 Tympanic 94.00 % 72.00/ min 16.00/min 47066 214 66954 4 59.00 mm[Hg] - Lying Down 113.00 mm[Hg] - Lying Down 91819 215 90742 0 56.00 mm[Hg] - Sitting 101.00 mm[Hg] - Sitting 97.80 Tympanic 95.00 % 71.00/ min 16.00/min 06279 215 16983 5 62 NI 14714 215 49032 8 57.00 mm[Hg] - Lying Down 113.00 mm[Hg] - Lying Down 19249 216 49906 3 71.00 mm[Hg] - Sitting 161.00 mm[Hg] - Sitting 98.10 Tympanic 93.00 % 81.00/ min 16.00/min 216 33578 1 72.00 mm[Hg] - Sitting 115.00 mm[Hg] - Sitting 67663 217 19898 2 94981 217 13778 4 62.00 mm[Hg] - Sitting 112.00 mm[Hg] - Sitting 06486 217 90646 3 57.00 mm[Hg] - Sitting 114.00 mm[Hg] - Sitting 98.30 Tympanic 98.00 % 78.00/ min 20.00/min 217 86844 4 62.00 mm[Hg] - Lying Down 111.00 mm[Hg] - Lying Down 46630 218 39894 0 70.00 mm[Hg] - Sitting 158.00 mm[Hg] - Sitting 97.60 Tympanic 97.00 % 68.00/ min 18.00/min 09109 218 21478 5 65.00 mm[Hg] - Lying Down 113.00 mm[Hg] - Lying Down 50055 219 59992 1 67.00 mm[Hg] - Sitting 112.00 mm[Hg] - Sitting 60747 220 17723 0 82.00 mm[Hg] - Sitting 160.00 mm[Hg] - Sitting 97.90 Forehead Scan 95.00 % 87.00/ min 16.00/min 69813 220 18125 7 69.00 mm[Hg] - Sitting 119.00 mm[Hg] - Sitting 81386 221 63198 1 82.00 mm[Hg] - Sitting 156.00 mm[Hg] - Sitting 98.20 Tympanic 95.00 % 72.00/ min 18.00/min 11217 221 70451 1 78.00 mm[Hg] - Sitting 148.00 mm[Hg] - Sitting 01554 222 97753 0 81.00 mm[Hg] - Sitting 161.00 mm[Hg] - Sitting 97.70 Tympanic 94.00 % 80.00/ min 18.00/min 222 38996 3 87.00 mm[Hg] - Sitting 141.00 mm[Hg] - Sitting 223 21976 9 68.00 mm[Hg] - Sitting 138.00 mm[Hg] - Sitting 98.10 Tympanic 92.00 % 85.00/ min 18.00/min 223 37711 4 67.00 mm[Hg] - Sitting 128.00 mm[Hg] - Sitting 224 50625 6 224 13801 5 73.00 mm[Hg] - Lying Down 151.00 mm[Hg] - Lying Down 98.40 Tympanic 95.00 % 75.00/ min 18.00/min 224 84121 3 63.00 mm[Hg] - Sitting 124.00 mm[Hg] - Sitting 225 42731 1 97.30 Tympanic 95.00 % 72.00/ min 20.00/min 225 13616 6 67.00 mm[Hg] - Sitting 132.00 mm[Hg] - Sitting 226 89157 2 67.00 mm[Hg] - Sitting 121.00 mm[Hg] - Sitting 227 38210 0 70.00 mm[Hg] - Sitting 137.00 mm[Hg] - Sitting 98.70 Forehead Scan 96.00 % 70.00/ min 16.00/min 227 86966 6 69.00 mm[Hg] - Sitting 131.00 mm[Hg] - Sitting 228 69463 7 79.00 mm[Hg] - Lying Down 181.00 mm[Hg] - Lying Down 98.40 Tympanic 98.00 % 75.00/ min 20.00/min 37302 228 00293 1 68.00 mm[Hg] - Lying Down 130.00 mm[Hg] - Lying Down 229 79965 6 80.00 mm[Hg] - Lying Down 183.00 mm[Hg] - Lying Down 98.60 Tympanic 97.00 % 75.00/ min 16.00/min 229 53704 4 74.00 mm[Hg] - Lying Down 161.00 mm[Hg] - Lying Down 77.00/ min 19481 229 08517 9 87.00 mm[Hg] - Sitting 175.00 mm[Hg] - Sitting 04788 230 83728 7 83.00 mm[Hg] - Sitting 186.00 mm[Hg] - Sitting 98.30 Tympanic 94.00 % 86.00/ min 18.00/min 67764 230 47061 6 70.00 mm[Hg] - Sitting 125.00 mm[Hg] - Sitting 48826 231 68102 8 17404 231 47971 4 77.00 mm[Hg] - Sitting 159.00 mm[Hg] - Sitting 98.70 Tympanic 95.00 % 78.00/ min 18.00/min 14832 231 52614 8 77.00 mm[Hg] - Sitting 139.00 mm[Hg] - Sitting 70271 101 95352 3 98.40 Tympanic 95.00 % 85.00/ min 20.00/min 52576 101 87210 5 107.00 NI 98.40 Tympanic 86.00/ min 20.00/min 31758 101 53068 7 107.00 NI 98.40 Tympanic 86.00/ min 20.00/min 43457 101 03203 2 72.00 mm[Hg] - Sitting 136.00 mm[Hg] - Sitting 18437 102 38243 8 77.00 mm[Hg] - Sitting 160.00 mm[Hg] - Sitting 98.20 Tympanic 94.00 % 83.00/ min 18.00/min 79429 102 62824 4 67.00 mm[Hg] - Sitting 132.00 mm[Hg] - Sitting
--- OUTSIDE RECORDS SUMMARY | 2024-04-10 03:14 | External Medical Summary | Continuity Of Care Document ---
Author Name Unknown Address [address] [address] Organization [facility] () Care Team Providers Care Potato Bucker Name Role Phone DO Alonso Amy Primary Care Provider [phone] Allergies Allergy Reaction Start Date End Date [...] 3 0.1 mL 01/29 Inactiv e 2023 71727 94275 0 1 time Intrad ermal False Tubersol 5 tub. unit/0.1 mL intradermal injection solution [Tuberculin PPD] 0.1mL Intradermal 1 time For PPD 2nd Step Give 2nd Step PPD Day 1 and Read results Day 3 (schedule 7 days after 1st READ) 0.1mL 02/07 Inactiv e 2023 71415 05902 0 1 time Intrad ermal False Oxycodone 5 mg tablet [generic] 5mg By Mouth Every 4 hours as needed for severe pain for pain rate 7-10. For right pubis fracture 5mg 01/27 Inactiv e 2023 95752 91420 1 Every 4 hours as needed By Mouth False OXYCODONE 5 MG TABLET [GENERIC]IM MEDIATE RELEASE 2.5mg By Mouth Every 4 hours as needed tablet po for moderate pain, pain rate 4-6 on pain scale 1-10. For pain 2.5mg 01/27 Inactiv e 2023 Every 4 hours as needed By Mouth False Oxycodone 5 mg tablet [generic] 01/27 Inactiv e 2023 38911 91275 1 Oxycodone 5 mg tablet [generic] 5mg By Mouth Every 4 hours as needed for severe pain for pain rate 7-10. For right pubis fracture 5mg 01/29 Inactiv e 2023 26000 53644 1 Every 4 hours as needed By [...] For Muscle spasms 175mg 2023 Active 2023 69306 65575 1 Every 6 hours as needed By Mouth False Cephalexin 500 mg capsule [generic] 500mg By Mouth Every 8 hours For UTI 500mg 01/30 Inactiv e 2023 94666 27985 1 Every 8 hours By Mouth False Aspirin 81 mg chewable tablet [generic] 81 mg By Mouth Once daily For AAA 81 mg 2023 Active 2023 86307 46130 6 Once daily By Mouth False Colace 100 mg capsule 100mg By Mouth Twice daily For constipation 100mg 2023 Active 2023 44971 62926 1 Twice daily By Mouth False Enoxaparin 300 mg/3 mL subcutaneou s solution [generic] 20mg Subcutaneous Once daily For anticoag. 20mg 02/06 Inactiv e 2023 85106 51340 1 Once daily Subcut aneous False Losartan 50 mg tablet [generic] 50 By Mouth Once daily For HTN 50 02/16 Inactiv e 2023 86649 92565 9 Once daily By Mouth False Miralax 17 gram/dose oral powder 17 gram By Mouth Once daily For contispation 17 gram 02/17 Inactiv e 2023 13692 60536 0 Once daily By Mouth False Senna 8.6 mg tablet 2 tabs By Mouth Once daily For constipation 2 tabs 02/17 Inactiv e 2023 23742 37593 1 Once daily By Mouth False Simvastatin 20 mg tablet [generic] 20 mg By Mouth Once daily For Hyperlipidemi a 20 mg 2023 Active 2023 07486 68791 0 Once daily By Mouth False Spiriva with HandiHaler 18 mcg and inhalation capsules 1 capsule Inhalation Once daily For COPD 1 capsule 2023 Active 2023 65156 81863 1 Once daily Inhala tion False Ventolin HFA 90 mcg/actuati on aerosol inhaler 2 puff Inhalation Every 4 hours as needed For COPD 2 puff 2023 Active 2023 30213 93170 0 Every 4 hours as needed Inhala tion False ProSource No Carb 15 gram-60 kcal/30 mL oral liquid 30ml By Mouth Twice daily For Protien supplement 30ml 01/30 Inactiv e 2023 99297 77196 5 Twice daily By Mouth False Albuterol sulfate 2.5 mg/3 mL (0.083 %) solution for nebulizatio n [generic] 3 ml Inhalation Every 6 hours as needed For wheezing 3 ml 2023 Active 2023 70931 12441 3 Every 6 hours as needed Inhala tion False Acetaminoph en 325 mg tablet [generic] 650 mg By Mouth Every 6 hours For Mild Pain 650 mg 01/29 Inactiv e 2023 99301 87084 0 Every 6 hours By Mouth False Tylenol 325 mg tablet 2 tabs By Mouth Every 4 hours as needed For Pain DO NOT EXCEED 3000 MG APAP/24 Hours 2 tabs 2023 Active 2023 73497 42468 0 Every 4 hours as needed By Mouth False Tylenol 325 mg tablet 2 tabs By Mouth Every 4 hours as needed For Fever >100 DO NOT EXCEED 3000 MG APAP/24 Hours 2 tabs 2023 Active 2023 22054 64459 0 Every 4 hours as needed By Mouth False Dulcolax (bisacodyl) 10 mg rectal suppository One Suppository per rectum PRN if Milk of Magnisia ineffective. Give on day 5 of no BM 1 sup 2023 Active 2023 41518 35769 1 Daily as needed Rectal False Fleet Enema 19 gram-7 gram/118 mL Administer per rectum PRN one time if dulcolax suppository not effective. Give on day 6 of no BM 1 2023 Active 2023 52995 47756 6 Daily as needed Rectal False Milk of Magnesia 400 mg/5 mL oral suspension [Magnesium hydroxide] PRN 30ml By Mouth Daily as needed for constipation one time daily if no BM, on day 4 of no BM (PRN refer to instructions) For Constipation 30 mL 2023 Active 2023 55075 83174 6 Daily as needed By Mouth False Oxycodone 5 mg tablet [generic] 01/29 Inactiv e 2023 49968 25823 1 Oxycodone 5 mg tablet [generic] 5mg By Mouth Every 4 hours as needed for severe pain for pain rate 7-10. For right pubis fracture 5mg 01/31 Inactiv e 2023 79568 40841 1 Every 4 hours as needed By Mouth False Cymbalta 30 mg capsule,del ayed release 30 mg By Mouth Once daily For Depression 30 mg 02/04 Inactiv e 2023 32881 94346 0 Once daily By Mouth False Acetaminoph en 500 mg tablet [generic] 1000 mg By Mouth Twice daily not to exceed 3gm APAP in 24 hours For Pain 1000 mg 2023 Active 2023 25196 30078 8 Twice daily By Mouth False Healthshake 118 ml BID 118 ml By Mouth Twice daily Healthshake 118 ml BID For MNA of 7 - malnourished - please record total ml consumed 118 ml 2023 Active 2023 Twice daily By Mouth False Oxycodone 5 mg tablet [generic] 01/31 Inactiv e 2023 25458 11178 1 Oxycodone 5 mg tablet [generic] 5mg By Mouth Every 4 hours as needed for severe pain for pain rate 7-10. For right pubis fracture 5mg 02/01 Inactiv e 2023 60417 25279 1 Every 4 hours as needed By Mouth False Oxycodone 5 mg tablet [generic] 5mg By Mouth Every 4 hours as needed for severe pain 7-10 For right pubis fx 5mg 2023 Active 2023 54562 19679 1 Every 4 hours as needed By Mouth False Cymbalta 60 mg capsule,del ayed release 60mg Once daily depression 60mg 2023 Active 2023 78663 50071 0 Once daily By Mouth False Enoxaparin 40 mg/0.4 mL subcutaneou s syringe [generic] 20mg Subcutaneous Once daily For anticoag 20mg 2023 Active 2023 11454 74137 0 Once daily Subcut aneous False Losartan 50 mg tablet [generic] 75 mg By Mouth Once daily For ESSENTIAL (PRIMARY) HYPERTENSION 75 mg 02/17 Inactiv e 2023 50450 06173 9 Once daily By Mouth I10. False Losartan 50 mg tablet [generic] 75 mg By Mouth ( 1.5 TABS) Once daily For ESSENTIAL (PRIMARY) HYPERTENSION 75 mg 2023 Active 2023 20665 66424 9 Once daily By Mouth I10. False Senna 8.6 mg tablet 2 tabs By Mouth Once daily As Needed For constipation 2 tabs 2023 Active 2023 41634 27826 1 Once daily By Mouth False Miralax 17 gram/dose oral powder 17 gram By Mouth As Needed For contispation 17 gram 2023 Active 2023 54319 52228 0 By Mouth False Problems Code Description [...] Temperature SpO2 Blood Sugar Pulse Respirations 210 22596 7 78.00 mm[Hg] - Lying Down 186.00 mm[Hg] - Lying Down 109.80 NI 97.90 Forehead Scan 91.00 % 92.00/ min 18.00/min 210 36225 1 74.00 mm[Hg] - Lying Down 147.00 mm[Hg] - Lying Down 85.00/ min 211 24832 2 72.00 mm[Hg] - Sitting 138.00 mm[Hg] - Sitting 98.40 Tympanic 86.00/ min 18.00/min 62853 211 19951 2 59.00 mm[Hg] - Sitting 117.00 mm[Hg] - Sitting 98.20 Tympanic 99.00 % 81.00/ min 18.00/min 23277 211 64501 5 69.00 mm[Hg] - Sitting 145.00 mm[Hg] - Sitting 15014 211 97158 9 69.00 mm[Hg] - Sitting 145.00 mm[Hg] - Sitting 34140 211 32193 5 69.00 mm[Hg] - Sitting 145.00 mm[Hg] - Sitting 98404 211 98799 6 69.00 mm[Hg] - Sitting 76033 212 99067 7 59.00 mm[Hg] - Sitting 117.00 mm[Hg] - Sitting 98.20 Tympanic 81.00/ min 18.00/min 03458 212 30157 9 97.80 Tympanic 66178 212 34493 6 55.00 mm[Hg] - Sitting 109.00 mm[Hg] - Sitting 97.30 Tympanic 94.00 % 75.00/ min 18.00/min 84974 212 93036 5 68.00 mm[Hg] - Sitting 128.00 mm[Hg] - Sitting 97.80 Tympanic 80.00/ min 18.00/min 66502 212 16604 4 97.50 Tympanic 69580 212 36970 9 11768 212 61978 6 71.00 mm[Hg] - Sitting 117.00 mm[Hg] - Sitting 90020 213 11826 0 60.00 mm[Hg] - Sitting 116.00 mm[Hg] - Sitting 98.40 Forehead Scan 94.00 % 72.00/ min 16.00/min 13802 213 20714 7 70.00 mm[Hg] - Sitting 118.00 mm[Hg] - Sitting 98.00 Tympanic 82.00/ min 18.00/min 32458 213 66457 3 97.90 Tympanic 44616 213 92680 5 73.00 mm[Hg] - Lying Down 127.00 mm[Hg] - Lying Down 38315 213 75286 3 86018 214 72374 1 62.00 mm[Hg] - Sitting 127.00 mm[Hg] - Sitting 97.80 Tympanic 94.00 % 72.00/ min 16.00/min 57671 214 46433 4 59.00 mm[Hg] - Lying Down 113.00 mm[Hg] - Lying Down 76183 215 80850 0 56.00 mm[Hg] - Sitting 101.00 mm[Hg] - Sitting 97.80 Tympanic 95.00 % 71.00/ min 16.00/min 65976 215 23139 5 62 NI 41627 215 91682 8 57.00 mm[Hg] - Lying Down 113.00 mm[Hg] - Lying Down 43137 216 88900 3 71.00 mm[Hg] - Sitting 161.00 mm[Hg] - Sitting 98.10 Tympanic 93.00 % 81.00/ min 16.00/min 216 52549 1 72.00 mm[Hg] - Sitting 115.00 mm[Hg] - Sitting 62411 217 13066 2 62274 217 73868 4 62.00 mm[Hg] - Sitting 112.00 mm[Hg] - Sitting 24918 217 57770 3 57.00 mm[Hg] - Sitting 114.00 mm[Hg] - Sitting 98.30 Tympanic 98.00 % 78.00/ min 20.00/min 217 28981 4 62.00 mm[Hg] - Lying Down 111.00 mm[Hg] - Lying Down 48798 218 25441 0 70.00 mm[Hg] - Sitting 158.00 mm[Hg] - Sitting 97.60 Tympanic 97.00 % 68.00/ min 18.00/min 13617 218 56038 5 65.00 mm[Hg] - Lying Down 113.00 mm[Hg] - Lying Down 05296 219 88975 1 67.00 mm[Hg] - Sitting 112.00 mm[Hg] - Sitting 34403 220 29047 0 82.00 mm[Hg] - Sitting 160.00 mm[Hg] - Sitting 97.90 Forehead Scan 95.00 % 87.00/ min 16.00/min 38539 220 57548 7 69.00 mm[Hg] - Sitting 119.00 mm[Hg] - Sitting 93052 221 96625 1 82.00 mm[Hg] - Sitting 156.00 mm[Hg] - Sitting 98.20 Tympanic 95.00 % 72.00/ min 18.00/min 92142 221 62695 1 78.00 mm[Hg] - Sitting 148.00 mm[Hg] - Sitting 56941 222 67956 0 81.00 mm[Hg] - Sitting 161.00 mm[Hg] - Sitting 97.70 Tympanic 94.00 % 80.00/ min 18.00/min 222 68799 3 87.00 mm[Hg] - Sitting 141.00 mm[Hg] - Sitting 223 47880 9 68.00 mm[Hg] - Sitting 138.00 mm[Hg] - Sitting 98.10 Tympanic 92.00 % 85.00/ min 18.00/min 223 03943 4 67.00 mm[Hg] - Sitting 128.00 mm[Hg] - Sitting 224 29915 6 224 72567 5 73.00 mm[Hg] - Lying Down 151.00 mm[Hg] - Lying Down 98.40 Tympanic 95.00 % 75.00/ min 18.00/min 224 74422 3 63.00 mm[Hg] - Sitting 124.00 mm[Hg] - Sitting 225 49080 1 97.30 Tympanic 95.00 % 72.00/ min 20.00/min 225 47504 6 67.00 mm[Hg] - Sitting 132.00 mm[Hg] - Sitting 226 02417 2 67.00 mm[Hg] - Sitting 121.00 mm[Hg] - Sitting 227 73503 0 70.00 mm[Hg] - Sitting 137.00 mm[Hg] - Sitting 98.70 Forehead Scan 96.00 % 70.00/ min 16.00/min 227 83445 6 69.00 mm[Hg] - Sitting 131.00 mm[Hg] - Sitting 228 91362 7 79.00 mm[Hg] - Lying Down 181.00 mm[Hg] - Lying Down 98.40 Tympanic 98.00 % 75.00/ min 20.00/min 26149 228 57956 1 68.00 mm[Hg] - Lying Down 130.00 mm[Hg] - Lying Down 229 01675 6 80.00 mm[Hg] - Lying Down 183.00 mm[Hg] - Lying Down 98.60 Tympanic 97.00 % 75.00/ min 16.00/min 229 60185 4 74.00 mm[Hg] - Lying Down 161.00 mm[Hg] - Lying Down 77.00/ min 229 25879 9 87.00 mm[Hg] - Sitting 175.00 mm[Hg] - Sitting 26227 230 48053 7 83.00 mm[Hg] - Sitting 186.00 mm[Hg] - Sitting 98.30 Tympanic 94.00 % 86.00/ min 18.00/min 19424 230 43400 6 70.00 mm[Hg] - Sitting 125.00 mm[Hg] - Sitting 91156 231 74377 8 39933 231 78049 4 77.00 mm[Hg] - Sitting 159.00 mm[Hg] - Sitting 98.70 Tympanic 95.00 % 78.00/ min 18.00/min 37043 231 53529 8 77.00 mm[Hg] - Sitting 139.00 mm[Hg] - Sitting 26174 101 50450 3 98.40 Tympanic 95.00 % 85.00/ min 20.00/min 09228 101 95210 5 107.00 NI 98.40 Tympanic 86.00/ min 20.00/min 39992 101 19927 7 107.00 NI 98.40 Tympanic 86.00/ min 20.00/min 82214 101 68909 2 72.00 mm[Hg] - Sitting 136.00 mm[Hg] - Sitting 59775 102 75174 8 77.00 mm[Hg] - Sitting 160.00 mm[Hg] - Sitting 98.20 Tympanic 94.00 % 83.00/ min 18.00/min 20372 102 67492 4 67.00 mm[Hg] - Sitting 132.00 mm[Hg] - Sitting 54738 103 63427 0 81.00 mm[Hg] - Sitting 130.00 mm[Hg] - Sitting
--- OUTSIDE RECORDS SUMMARY | 2024-04-10 03:14 | External Medical Summary | Continuity Of Care Document ---
Author Name Unknown Address [address] [address] Organization [facility] () Care Team Providers Care Architectural Project Captain Name Role Phone DO Alonso Amy Primary Care Provider [phone] Allergies Allergy Reaction Start Date End Date [...] 3 0.1 mL 01/29 Inactiv e 2023 95365 73554 0 1 time Intrad ermal False Tubersol 5 tub. unit/0.1 mL intradermal injection solution [Tuberculin PPD] 0.1mL Intradermal 1 time For PPD 2nd Step Give 2nd Step PPD Day 1 and Read results Day 3 (schedule 7 days after 1st READ) 0.1mL 02/07 Inactiv e 2023 00915 04322 0 1 time Intrad ermal False Oxycodone 5 mg tablet [generic] 5mg By Mouth Every 4 hours as needed for severe pain for pain rate 7-10. For right pubis fracture 5mg 01/27 Inactiv e 2023 50461 20065 1 Every 4 hours as needed By Mouth False OXYCODONE 5 MG TABLET [GENERIC]IM MEDIATE RELEASE 2.5mg By Mouth Every 4 hours as needed tablet po for moderate pain, pain rate 4-6 on pain scale 1-10. For pain 2.5mg 01/27 Inactiv e 2023 Every 4 hours as needed By Mouth False Oxycodone 5 mg tablet [generic] 01/27 Inactiv e 2023 39803 44937 1 Oxycodone 5 mg tablet [generic] 5mg By Mouth Every 4 hours as needed for severe pain for pain rate 7-10. For right pubis fracture 5mg 01/29 Inactiv e 2023 61271 17389 1 Every 4 hours as needed By [...] For Muscle spasms 175mg 2023 Active 2023 32436 78788 1 Every 6 hours as needed By Mouth False Cephalexin 500 mg capsule [generic] 500mg By Mouth Every 8 hours For UTI 500mg 01/30 Inactiv e 2023 97982 05412 1 Every 8 hours By Mouth False Aspirin 81 mg chewable tablet [generic] 81 mg By Mouth Once daily For AAA 81 mg 2023 Active 2023 93589 93761 6 Once daily By Mouth False Colace 100 mg capsule 100mg By Mouth Twice daily For constipation 100mg 2023 Active 2023 30317 43062 1 Twice daily By Mouth False Enoxaparin 300 mg/3 mL subcutaneou s solution [generic] 20mg Subcutaneous Once daily For anticoag. 20mg 02/06 Inactiv e 2023 13385 40787 1 Once daily Subcut aneous False Losartan 50 mg tablet [generic] 50 By Mouth Once daily For HTN 50 02/16 Inactiv e 2023 96288 98842 9 Once daily By Mouth False Miralax 17 gram/dose oral powder 17 gram By Mouth Once daily For contispation 17 gram 02/17 Inactiv e 2023 19543 20410 0 Once daily By Mouth False Senna 8.6 mg tablet 2 tabs By Mouth Once daily For constipation 2 tabs 02/17 Inactiv e 2023 25732 60613 1 Once daily By Mouth False Simvastatin 20 mg tablet [generic] 20 mg By Mouth Once daily For Hyperlipidemi a 20 mg 2023 Active 2023 23830 79230 0 Once daily By Mouth False Spiriva with HandiHaler 18 mcg and inhalation capsules 1 capsule Inhalation Once daily For COPD 1 capsule 2023 Active 2023 51156 08278 1 Once daily Inhala tion False Ventolin HFA 90 mcg/actuati on aerosol inhaler 2 puff Inhalation Every 4 hours as needed For COPD 2 puff 2023 Active 2023 41049 13246 0 Every 4 hours as needed Inhala tion False ProSource No Carb 15 gram-60 kcal/30 mL oral liquid 30ml By Mouth Twice daily For Protien supplement 30ml 01/30 Inactiv e 2023 06955 79720 5 Twice daily By Mouth False Albuterol sulfate 2.5 mg/3 mL (0.083 %) solution for nebulizatio n [generic] 3 ml Inhalation Every 6 hours as needed For wheezing 3 ml 2023 Active 2023 28734 35138 3 Every 6 hours as needed Inhala tion False Acetaminoph en 325 mg tablet [generic] 650 mg By Mouth Every 6 hours For Mild Pain 650 mg 01/29 Inactiv e 2023 98113 66186 0 Every 6 hours By Mouth False Tylenol 325 mg tablet 2 tabs By Mouth Every 4 hours as needed For Pain DO NOT EXCEED 3000 MG APAP/24 Hours 2 tabs 2023 Active 2023 07436 13103 0 Every 4 hours as needed By Mouth False Tylenol 325 mg tablet 2 tabs By Mouth Every 4 hours as needed For Fever >100 DO NOT EXCEED 3000 MG APAP/24 Hours 2 tabs 2023 Active 2023 26410 37106 0 Every 4 hours as needed By Mouth False Dulcolax (bisacodyl) 10 mg rectal suppository One Suppository per rectum PRN if Milk of Magnisia ineffective. Give on day 5 of no BM 1 sup 2023 Active 2023 41199 56922 1 Daily as needed Rectal False Fleet Enema 19 gram-7 gram/118 mL Administer per rectum PRN one time if dulcolax suppository not effective. Give on day 6 of no BM 1 2023 Active 2023 82413 62357 6 Daily as needed Rectal False Milk of Magnesia 400 mg/5 mL oral suspension [Magnesium hydroxide] PRN 30ml By Mouth Daily as needed for constipation one time daily if no BM, on day 4 of no BM (PRN refer to instructions) For Constipation 30 mL 2023 Active 2023 58948 53639 6 Daily as needed By Mouth False Oxycodone 5 mg tablet [generic] 01/29 Inactiv e 2023 01204 05408 1 Oxycodone 5 mg tablet [generic] 5mg By Mouth Every 4 hours as needed for severe pain for pain rate 7-10. For right pubis fracture 5mg 01/31 Inactiv e 2023 04530 57821 1 Every 4 hours as needed By Mouth False Cymbalta 30 mg capsule,del ayed release 30 mg By Mouth Once daily For Depression 30 mg 02/04 Inactiv e 2023 42961 30191 0 Once daily By Mouth False Acetaminoph en 500 mg tablet [generic] 1000 mg By Mouth Twice daily not to exceed 3gm APAP in 24 hours For Pain 1000 mg 2023 Active 2023 90615 14776 8 Twice daily By Mouth False Healthshake 118 ml BID 118 ml By Mouth Twice daily Healthshake 118 ml BID For MNA of 7 - malnourished - please record total ml consumed 118 ml 2023 Active 2023 Twice daily By Mouth False Oxycodone 5 mg tablet [generic] 01/31 Inactiv e 2023 97152 68488 1 Oxycodone 5 mg tablet [generic] 5mg By Mouth Every 4 hours as needed for severe pain for pain rate 7-10. For right pubis fracture 5mg 02/01 Inactiv e 2023 01688 50323 1 Every 4 hours as needed By Mouth False Oxycodone 5 mg tablet [generic] 5mg By Mouth Every 4 hours as needed for severe pain 7-10 For right pubis fx 5mg 2023 Active 2023 90476 28199 1 Every 4 hours as needed By Mouth False Cymbalta 60 mg capsule,del ayed release 60mg Once daily depression 60mg 2023 Active 2023 60176 33810 0 Once daily By Mouth False Enoxaparin 40 mg/0.4 mL subcutaneou s syringe [generic] 20mg Subcutaneous Once daily For anticoag 20mg 2023 Active 2023 38826 43921 0 Once daily Subcut aneous False Losartan 50 mg tablet [generic] 75 mg By Mouth Once daily For ESSENTIAL (PRIMARY) HYPERTENSION 75 mg 02/17 Inactiv e 2023 20510 15948 9 Once daily By Mouth I10. False Losartan 50 mg tablet [generic] 75 mg By Mouth ( 1.5 TABS) Once daily For ESSENTIAL (PRIMARY) HYPERTENSION 75 mg 2023 Active 2023 87430 85002 9 Once daily By Mouth I10. False Senna 8.6 mg tablet 2 tabs By Mouth Once daily As Needed For constipation 2 tabs 2023 Active 2023 17722 66388 1 Once daily By Mouth False Miralax 17 gram/dose oral powder 17 gram By Mouth As Needed For contispation 17 gram 2023 Active 2023 76328 67995 0 By Mouth False Problems Code Description [...] Temperature SpO2 Blood Sugar Pulse Respirations 210 90098 7 78.00 mm[Hg] - Lying Down 186.00 mm[Hg] - Lying Down 109.80 NI 97.90 Forehead Scan 91.00 % 92.00/ min 18.00/min 210 57689 1 74.00 mm[Hg] - Lying Down 147.00 mm[Hg] - Lying Down 85.00/ min 211 28357 2 72.00 mm[Hg] - Sitting 138.00 mm[Hg] - Sitting 98.40 Tympanic 86.00/ min 18.00/min 52654 211 05805 2 59.00 mm[Hg] - Sitting 117.00 mm[Hg] - Sitting 98.20 Tympanic 99.00 % 81.00/ min 18.00/min 41999 211 73259 5 69.00 mm[Hg] - Sitting 145.00 mm[Hg] - Sitting 38545 211 45857 9 69.00 mm[Hg] - Sitting 145.00 mm[Hg] - Sitting 97588 211 21853 5 69.00 mm[Hg] - Sitting 145.00 mm[Hg] - Sitting 89916 211 02577 6 69.00 mm[Hg] - Sitting 93293 212 17649 7 59.00 mm[Hg] - Sitting 117.00 mm[Hg] - Sitting 98.20 Tympanic 81.00/ min 18.00/min 60949 212 20784 9 97.80 Tympanic 34136 212 04198 6 55.00 mm[Hg] - Sitting 109.00 mm[Hg] - Sitting 97.30 Tympanic 94.00 % 75.00/ min 18.00/min 36549 212 80594 5 68.00 mm[Hg] - Sitting 128.00 mm[Hg] - Sitting 97.80 Tympanic 80.00/ min 18.00/min 48375 212 27224 4 97.50 Tympanic 88189 212 68198 9 28745 212 88211 6 71.00 mm[Hg] - Sitting 117.00 mm[Hg] - Sitting 86541 213 88466 0 60.00 mm[Hg] - Sitting 116.00 mm[Hg] - Sitting 98.40 Forehead Scan 94.00 % 72.00/ min 16.00/min 65665 213 36732 7 70.00 mm[Hg] - Sitting 118.00 mm[Hg] - Sitting 98.00 Tympanic 82.00/ min 18.00/min 59591 213 56834 3 97.90 Tympanic 44975 213 94641 5 73.00 mm[Hg] - Lying Down 127.00 mm[Hg] - Lying Down 90801 213 22782 3 86035 214 57004 1 62.00 mm[Hg] - Sitting 127.00 mm[Hg] - Sitting 97.80 Tympanic 94.00 % 72.00/ min 16.00/min 67361 214 28691 4 59.00 mm[Hg] - Lying Down 113.00 mm[Hg] - Lying Down 61897 215 69021 0 56.00 mm[Hg] - Sitting 101.00 mm[Hg] - Sitting 97.80 Tympanic 95.00 % 71.00/ min 16.00/min 37253 215 87731 5 62 NI 55169 215 07149 8 57.00 mm[Hg] - Lying Down 113.00 mm[Hg] - Lying Down 24073 216 51499 3 71.00 mm[Hg] - Sitting 161.00 mm[Hg] - Sitting 98.10 Tympanic 93.00 % 81.00/ min 16.00/min 216 67314 1 72.00 mm[Hg] - Sitting 115.00 mm[Hg] - Sitting 03678 217 06764 2 67784 217 32175 4 62.00 mm[Hg] - Sitting 112.00 mm[Hg] - Sitting 40076 217 36999 3 57.00 mm[Hg] - Sitting 114.00 mm[Hg] - Sitting 98.30 Tympanic 98.00 % 78.00/ min 20.00/min 217 09553 4 62.00 mm[Hg] - Lying Down 111.00 mm[Hg] - Lying Down 51293 218 53201 0 70.00 mm[Hg] - Sitting 158.00 mm[Hg] - Sitting 97.60 Tympanic 97.00 % 68.00/ min 18.00/min 09222 218 17869 5 65.00 mm[Hg] - Lying Down 113.00 mm[Hg] - Lying Down 03170 219 39194 1 67.00 mm[Hg] - Sitting 112.00 mm[Hg] - Sitting 91086 220 53627 0 82.00 mm[Hg] - Sitting 160.00 mm[Hg] - Sitting 97.90 Forehead Scan 95.00 % 87.00/ min 16.00/min 13652 220 34800 7 69.00 mm[Hg] - Sitting 119.00 mm[Hg] - Sitting 36497 221 55322 1 82.00 mm[Hg] - Sitting 156.00 mm[Hg] - Sitting 98.20 Tympanic 95.00 % 72.00/ min 18.00/min 61271 221 08002 1 78.00 mm[Hg] - Sitting 148.00 mm[Hg] - Sitting 99157 222 21664 0 81.00 mm[Hg] - Sitting 161.00 mm[Hg] - Sitting 97.70 Tympanic 94.00 % 80.00/ min 18.00/min 222 21943 3 87.00 mm[Hg] - Sitting 141.00 mm[Hg] - Sitting 223 64980 9 68.00 mm[Hg] - Sitting 138.00 mm[Hg] - Sitting 98.10 Tympanic 92.00 % 85.00/ min 18.00/min 223 05445 4 67.00 mm[Hg] - Sitting 128.00 mm[Hg] - Sitting 224 20867 6 224 90768 5 73.00 mm[Hg] - Lying Down 151.00 mm[Hg] - Lying Down 98.40 Tympanic 95.00 % 75.00/ min 18.00/min 224 54446 3 63.00 mm[Hg] - Sitting 124.00 mm[Hg] - Sitting 225 65837 1 97.30 Tympanic 95.00 % 72.00/ min 20.00/min 225 02066 6 67.00 mm[Hg] - Sitting 132.00 mm[Hg] - Sitting 226 90761 2 67.00 mm[Hg] - Sitting 121.00 mm[Hg] - Sitting 227 50808 0 70.00 mm[Hg] - Sitting 137.00 mm[Hg] - Sitting 98.70 Forehead Scan 96.00 % 70.00/ min 16.00/min 227 90974 6 69.00 mm[Hg] - Sitting 131.00 mm[Hg] - Sitting 228 35105 7 79.00 mm[Hg] - Lying Down 181.00 mm[Hg] - Lying Down 98.40 Tympanic 98.00 % 75.00/ min 20.00/min 36136 228 49386 1 68.00 mm[Hg] - Lying Down 130.00 mm[Hg] - Lying Down 229 88615 6 80.00 mm[Hg] - Lying Down 183.00 mm[Hg] - Lying Down 98.60 Tympanic 97.00 % 75.00/ min 16.00/min 229 69236 4 74.00 mm[Hg] - Lying Down 161.00 mm[Hg] - Lying Down 77.00/ min 76443 229 51061 9 87.00 mm[Hg] - Sitting 175.00 mm[Hg] - Sitting 49265 230 03702 7 83.00 mm[Hg] - Sitting 186.00 mm[Hg] - Sitting 98.30 Tympanic 94.00 % 86.00/ min 18.00/min 38687 230 90166 6 70.00 mm[Hg] - Sitting 125.00 mm[Hg] - Sitting 74287 231 08834 8 61160 231 98618 4 77.00 mm[Hg] - Sitting 159.00 mm[Hg] - Sitting 98.70 Tympanic 95.00 % 78.00/ min 18.00/min 22641 231 66814 8 77.00 mm[Hg] - Sitting 139.00 mm[Hg] - Sitting 81502 101 25784 3 98.40 Tympanic 95.00 % 85.00/ min 20.00/min 33722 101 95630 5 107.00 NI 98.40 Tympanic 86.00/ min 20.00/min 11930 101 75644 7 107.00 NI 98.40 Tympanic 86.00/ min 20.00/min 76923 101 18500 2 72.00 mm[Hg] - Sitting 136.00 mm[Hg] - Sitting 89762 102 55906 8 77.00 mm[Hg] - Sitting 160.00 mm[Hg] - Sitting 98.20 Tympanic 94.00 % 83.00/ min 18.00/min 71098 102 90168 4 67.00 mm[Hg] - Sitting 132.00 mm[Hg] - Sitting 97307 103 03829 0 98.60 Forehead Scan 97.00 % 86.00/ min 16.00/min 11955 103 44642 0 81.00 mm[Hg] - Sitting 130.00 mm[Hg] - Sitting
--- OUTSIDE RECORDS SUMMARY | 2024-04-10 03:14 | External Medical Summary | Continuity Of Care Document ---
Author Name Unknown Address [address] [address] Organization [facility] () Care Team Providers Care Tube Machine Operator Helper Name Role Phone DO Alonso Amy Primary Care Provider [phone] Allergies Allergy Reaction Start Date End Date [...] 3 0.1 mL 01/29 Inactiv e 2023 33084 10675 0 1 time Intrad ermal False Tubersol 5 tub. unit/0.1 mL intradermal injection solution [Tuberculin PPD] 0.1mL Intradermal 1 time For PPD 2nd Step Give 2nd Step PPD Day 1 and Read results Day 3 (schedule 7 days after 1st READ) 0.1mL 02/07 Inactiv e 2023 11974 68037 0 1 time Intrad ermal False Oxycodone 5 mg tablet [generic] 5mg By Mouth Every 4 hours as needed for severe pain for pain rate 7-10. For right pubis fracture 5mg 01/27 Inactiv e 2023 61351 07337 1 Every 4 hours as needed By Mouth False OXYCODONE 5 MG TABLET [GENERIC]IM MEDIATE RELEASE 2.5mg By Mouth Every 4 hours as needed tablet po for moderate pain, pain rate 4-6 on pain scale 1-10. For pain 2.5mg 01/27 Inactiv e 2023 Every 4 hours as needed By Mouth False Oxycodone 5 mg tablet [generic] 01/27 Inactiv e 2023 93002 58856 1 Oxycodone 5 mg tablet [generic] 5mg By Mouth Every 4 hours as needed for severe pain for pain rate 7-10. For right pubis fracture 5mg 01/29 Inactiv e 2023 72126 45244 1 Every 4 hours as needed By [...] For Muscle spasms 175mg 2023 Active 2023 82941 37519 1 Every 6 hours as needed By Mouth False Cephalexin 500 mg capsule [generic] 500mg By Mouth Every 8 hours For UTI 500mg 01/30 Inactiv e 2023 51570 30046 1 Every 8 hours By Mouth False Aspirin 81 mg chewable tablet [generic] 81 mg By Mouth Once daily For AAA 81 mg 2023 Active 2023 25735 48492 6 Once daily By Mouth False Colace 100 mg capsule 100mg By Mouth Twice daily For constipation 100mg 2023 Active 2023 46976 08814 1 Twice daily By Mouth False Enoxaparin 300 mg/3 mL subcutaneou s solution [generic] 20mg Subcutaneous Once daily For anticoag. 20mg 02/06 Inactiv e 2023 49380 73781 1 Once daily Subcut aneous False Losartan 50 mg tablet [generic] 50 By Mouth Once daily For HTN 50 02/16 Inactiv e 2023 55761 12549 9 Once daily By Mouth False Miralax 17 gram/dose oral powder 17 gram By Mouth Once daily For contispation 17 gram 02/17 Inactiv e 2023 66411 21217 0 Once daily By Mouth False Senna 8.6 mg tablet 2 tabs By Mouth Once daily For constipation 2 tabs 02/17 Inactiv e 2023 16555 79784 1 Once daily By Mouth False Simvastatin 20 mg tablet [generic] 20 mg By Mouth Once daily For Hyperlipidemi a 20 mg 2023 Active 2023 20166 22046 0 Once daily By Mouth False Spiriva with HandiHaler 18 mcg and inhalation capsules 1 capsule Inhalation Once daily For COPD 1 capsule 2023 Active 2023 66910 58382 1 Once daily Inhala tion False Ventolin HFA 90 mcg/actuati on aerosol inhaler 2 puff Inhalation Every 4 hours as needed For COPD 2 puff 2023 Active 2023 21134 41653 0 Every 4 hours as needed Inhala tion False ProSource No Carb 15 gram-60 kcal/30 mL oral liquid 30ml By Mouth Twice daily For Protien supplement 30ml 01/30 Inactiv e 2023 63181 22421 5 Twice daily By Mouth False Albuterol sulfate 2.5 mg/3 mL (0.083 %) solution for nebulizatio n [generic] 3 ml Inhalation Every 6 hours as needed For wheezing 3 ml 2023 Active 2023 23111 36402 3 Every 6 hours as needed Inhala tion False Acetaminoph en 325 mg tablet [generic] 650 mg By Mouth Every 6 hours For Mild Pain 650 mg 01/29 Inactiv e 2023 48794 60316 0 Every 6 hours By Mouth False Tylenol 325 mg tablet 2 tabs By Mouth Every 4 hours as needed For Pain DO NOT EXCEED 3000 MG APAP/24 Hours 2 tabs 2023 Active 2023 29272 37411 0 Every 4 hours as needed By Mouth False Tylenol 325 mg tablet 2 tabs By Mouth Every 4 hours as needed For Fever >100 DO NOT EXCEED 3000 MG APAP/24 Hours 2 tabs 2023 Active 2023 97207 57151 0 Every 4 hours as needed By Mouth False Dulcolax (bisacodyl) 10 mg rectal suppository One Suppository per rectum PRN if Milk of Magnisia ineffective. Give on day 5 of no BM 1 sup 2023 Active 2023 30075 65697 1 Daily as needed Rectal False Fleet Enema 19 gram-7 gram/118 mL Administer per rectum PRN one time if dulcolax suppository not effective. Give on day 6 of no BM 1 2023 Active 2023 79253 81397 6 Daily as needed Rectal False Milk of Magnesia 400 mg/5 mL oral suspension [Magnesium hydroxide] PRN 30ml By Mouth Daily as needed for constipation one time daily if no BM, on day 4 of no BM (PRN refer to instructions) For Constipation 30 mL 2023 Active 2023 39435 19142 6 Daily as needed By Mouth False Oxycodone 5 mg tablet [generic] 01/29 Inactiv e 2023 02138 16447 1 Oxycodone 5 mg tablet [generic] 5mg By Mouth Every 4 hours as needed for severe pain for pain rate 7-10. For right pubis fracture 5mg 01/31 Inactiv e 2023 32296 98730 1 Every 4 hours as needed By Mouth False Cymbalta 30 mg capsule,del ayed release 30 mg By Mouth Once daily For Depression 30 mg 02/04 Inactiv e 2023 93312 33340 0 Once daily By Mouth False Acetaminoph en 500 mg tablet [generic] 1000 mg By Mouth Twice daily not to exceed 3gm APAP in 24 hours For Pain 1000 mg 2023 Active 2023 53273 82656 8 Twice daily By Mouth False Healthshake 118 ml BID 118 ml By Mouth Twice daily Healthshake 118 ml BID For MNA of 7 - malnourished - please record total ml consumed 118 ml 2023 Active 2023 Twice daily By Mouth False Oxycodone 5 mg tablet [generic] 01/31 Inactiv e 2023 05831 72177 1 Oxycodone 5 mg tablet [generic] 5mg By Mouth Every 4 hours as needed for severe pain for pain rate 7-10. For right pubis fracture 5mg 02/01 Inactiv e 2023 70232 39685 1 Every 4 hours as needed By Mouth False Oxycodone 5 mg tablet [generic] 5mg By Mouth Every 4 hours as needed for severe pain 7-10 For right pubis fx 5mg 2023 Active 2023 25398 83450 1 Every 4 hours as needed By Mouth False Cymbalta 60 mg capsule,del ayed release 60mg Once daily depression 60mg 2023 Active 2023 38022 19173 0 Once daily By Mouth False Enoxaparin 40 mg/0.4 mL subcutaneou s syringe [generic] 20mg Subcutaneous Once daily For anticoag 20mg 2023 Active 2023 33310 64835 0 Once daily Subcut aneous False Losartan 50 mg tablet [generic] 75 mg By Mouth Once daily For ESSENTIAL (PRIMARY) HYPERTENSION 75 mg 02/17 Inactiv e 2023 07906 95136 9 Once daily By Mouth I10. False Losartan 50 mg tablet [generic] 75 mg By Mouth ( 1.5 TABS) Once daily For ESSENTIAL (PRIMARY) HYPERTENSION 75 mg 2023 Active 2023 36188 96655 9 Once daily By Mouth I10. False Senna 8.6 mg tablet 2 tabs By Mouth Once daily As Needed For constipation 2 tabs 2023 Active 2023 47339 47828 1 Once daily By Mouth False Miralax 17 gram/dose oral powder 17 gram By Mouth As Needed For contispation 17 gram 2023 Active 2023 57791 42525 0 By Mouth False Problems Code Description [...] Temperature SpO2 Blood Sugar Pulse Respirations 210 76314 7 78.00 mm[Hg] - Lying Down 186.00 mm[Hg] - Lying Down 109.80 NI 97.90 Forehead Scan 91.00 % 92.00/ min 18.00/min 210 55056 1 74.00 mm[Hg] - Lying Down 147.00 mm[Hg] - Lying Down 85.00/ min 211 59645 2 72.00 mm[Hg] - Sitting 138.00 mm[Hg] - Sitting 98.40 Tympanic 86.00/ min 18.00/min 18459 211 75640 2 59.00 mm[Hg] - Sitting 117.00 mm[Hg] - Sitting 98.20 Tympanic 99.00 % 81.00/ min 18.00/min 03575 211 48233 5 69.00 mm[Hg] - Sitting 145.00 mm[Hg] - Sitting 67715 211 29597 9 69.00 mm[Hg] - Sitting 145.00 mm[Hg] - Sitting 78014 211 54495 5 69.00 mm[Hg] - Sitting 145.00 mm[Hg] - Sitting 07963 211 61526 6 69.00 mm[Hg] - Sitting 74459 212 85121 7 59.00 mm[Hg] - Sitting 117.00 mm[Hg] - Sitting 98.20 Tympanic 81.00/ min 18.00/min 24002 212 83466 9 97.80 Tympanic 60399 212 05752 6 55.00 mm[Hg] - Sitting 109.00 mm[Hg] - Sitting 97.30 Tympanic 94.00 % 75.00/ min 18.00/min 13886 212 16023 5 68.00 mm[Hg] - Sitting 128.00 mm[Hg] - Sitting 97.80 Tympanic 80.00/ min 18.00/min 64444 212 91094 4 97.50 Tympanic 05863 212 07662 9 92269 212 12061 6 71.00 mm[Hg] - Sitting 117.00 mm[Hg] - Sitting 82134 213 65343 0 60.00 mm[Hg] - Sitting 116.00 mm[Hg] - Sitting 98.40 Forehead Scan 94.00 % 72.00/ min 16.00/min 88081 213 50187 7 70.00 mm[Hg] - Sitting 118.00 mm[Hg] - Sitting 98.00 Tympanic 82.00/ min 18.00/min 77217 213 47348 3 97.90 Tympanic 18027 213 62696 5 73.00 mm[Hg] - Lying Down 127.00 mm[Hg] - Lying Down 22497 213 74380 3 84439 214 58994 1 62.00 mm[Hg] - Sitting 127.00 mm[Hg] - Sitting 97.80 Tympanic 94.00 % 72.00/ min 16.00/min 68903 214 18498 4 59.00 mm[Hg] - Lying Down 113.00 mm[Hg] - Lying Down 50935 215 80329 0 56.00 mm[Hg] - Sitting 101.00 mm[Hg] - Sitting 97.80 Tympanic 95.00 % 71.00/ min 16.00/min 36371 215 19976 5 62 NI 98428 215 53252 8 57.00 mm[Hg] - Lying Down 113.00 mm[Hg] - Lying Down 76417 216 04939 3 71.00 mm[Hg] - Sitting 161.00 mm[Hg] - Sitting 98.10 Tympanic 93.00 % 81.00/ min 16.00/min 216 72504 1 72.00 mm[Hg] - Sitting 115.00 mm[Hg] - Sitting 55359 217 80481 2 81809 217 21332 4 62.00 mm[Hg] - Sitting 112.00 mm[Hg] - Sitting 33164 217 02587 3 57.00 mm[Hg] - Sitting 114.00 mm[Hg] - Sitting 98.30 Tympanic 98.00 % 78.00/ min 20.00/min 217 11705 4 62.00 mm[Hg] - Lying Down 111.00 mm[Hg] - Lying Down 18692 218 22751 0 70.00 mm[Hg] - Sitting 158.00 mm[Hg] - Sitting 97.60 Tympanic 97.00 % 68.00/ min 18.00/min 35163 218 52249 5 65.00 mm[Hg] - Lying Down 113.00 mm[Hg] - Lying Down 47597 219 24885 1 67.00 mm[Hg] - Sitting 112.00 mm[Hg] - Sitting 40934 220 02009 0 82.00 mm[Hg] - Sitting 160.00 mm[Hg] - Sitting 97.90 Forehead Scan 95.00 % 87.00/ min 16.00/min 33554 220 57487 7 69.00 mm[Hg] - Sitting 119.00 mm[Hg] - Sitting 04876 221 07229 1 82.00 mm[Hg] - Sitting 156.00 mm[Hg] - Sitting 98.20 Tympanic 95.00 % 72.00/ min 18.00/min 60884 221 47017 1 78.00 mm[Hg] - Sitting 148.00 mm[Hg] - Sitting 63949 222 25594 0 81.00 mm[Hg] - Sitting 161.00 mm[Hg] - Sitting 97.70 Tympanic 94.00 % 80.00/ min 18.00/min 222 00619 3 87.00 mm[Hg] - Sitting 141.00 mm[Hg] - Sitting 223 33480 9 68.00 mm[Hg] - Sitting 138.00 mm[Hg] - Sitting 98.10 Tympanic 92.00 % 85.00/ min 18.00/min 223 31657 4 67.00 mm[Hg] - Sitting 128.00 mm[Hg] - Sitting 224 52116 6 224 95352 5 73.00 mm[Hg] - Lying Down 151.00 mm[Hg] - Lying Down 98.40 Tympanic 95.00 % 75.00/ min 18.00/min 224 69354 3 63.00 mm[Hg] - Sitting 124.00 mm[Hg] - Sitting 225 51638 1 97.30 Tympanic 95.00 % 72.00/ min 20.00/min 225 00874 6 67.00 mm[Hg] - Sitting 132.00 mm[Hg] - Sitting 226 67272 2 67.00 mm[Hg] - Sitting 121.00 mm[Hg] - Sitting 227 06387 0 70.00 mm[Hg] - Sitting 137.00 mm[Hg] - Sitting 98.70 Forehead Scan 96.00 % 70.00/ min 16.00/min 227 70132 6 69.00 mm[Hg] - Sitting 131.00 mm[Hg] - Sitting 228 41105 7 79.00 mm[Hg] - Lying Down 181.00 mm[Hg] - Lying Down 98.40 Tympanic 98.00 % 75.00/ min 20.00/min 60250 228 92630 1 68.00 mm[Hg] - Lying Down 130.00 mm[Hg] - Lying Down 229 85036 6 80.00 mm[Hg] - Lying Down 183.00 mm[Hg] - Lying Down 98.60 Tympanic 97.00 % 75.00/ min 16.00/min 229 09669 4 74.00 mm[Hg] - Lying Down 161.00 mm[Hg] - Lying Down 77.00/ min 93640 229 02244 9 87.00 mm[Hg] - Sitting 175.00 mm[Hg] - Sitting 70174 230 17947 7 83.00 mm[Hg] - Sitting 186.00 mm[Hg] - Sitting 98.30 Tympanic 94.00 % 86.00/ min 18.00/min 11900 230 03136 6 70.00 mm[Hg] - Sitting 125.00 mm[Hg] - Sitting 65237 231 08598 8 33513 231 48533 4 77.00 mm[Hg] - Sitting 159.00 mm[Hg] - Sitting 98.70 Tympanic 95.00 % 78.00/ min 18.00/min 70545 231 75385 8 77.00 mm[Hg] - Sitting 139.00 mm[Hg] - Sitting 03850 101 71582 3 98.40 Tympanic 95.00 % 85.00/ min 20.00/min 99428 101 06283 5 107.00 NI 98.40 Tympanic 86.00/ min 20.00/min 27546 101 93140 7 107.00 NI 98.40 Tympanic 86.00/ min 20.00/min 53724 101 65896 2 72.00 mm[Hg] - Sitting 136.00 mm[Hg] - Sitting 13467 102 24384 4 67.00 mm[Hg] - Sitting 132.00 mm[Hg] - Sitting
--- OUTSIDE RECORDS SUMMARY | 2024-04-10 03:14 | External Medical Summary | Continuity Of Care Document ---
Author Name Unknown Address [address] [address] [facility] () Care Team Providers Care [employer] Exp[employer] Sales Director Name Role Phone DO Alonso Amy Primary Care Provider [phone] Allergies Allergy Reaction Start Date End Date [...] 3 0.1 mL 01/29 Inactiv e 2023 88567 51837 0 1 time Intrad ermal False Tubersol 5 tub. unit/0.1 mL intradermal injection solution [Tuberculin PPD] 0.1mL Intradermal 1 time For PPD 2nd Step Give 2nd Step PPD Day 1 and Read results Day 3 (schedule 7 days after 1st READ) 0.1mL 02/07 Inactiv e 2023 80788 13776 0 1 time Intrad ermal False Oxycodone 5 mg tablet [generic] 5mg By Mouth Every 4 hours as needed for severe pain for pain rate 7-10. For right pubis fracture 5mg 01/27 Inactiv e 2023 08279 48926 1 Every 4 hours as needed By Mouth False OXYCODONE 5 MG TABLET [GENERIC]IM MEDIATE RELEASE 2.5mg By Mouth Every 4 hours as needed tablet po for moderate pain, pain rate 4-6 on pain scale 1-10. For pain 2.5mg 01/27 Inactiv e 2023 Every 4 hours as needed By Mouth False Oxycodone 5 mg tablet [generic] 01/27 Inactiv e 2023 61419 06776 1 Oxycodone 5 mg tablet [generic] 5mg By Mouth Every 4 hours as needed for severe pain for pain rate 7-10. For right pubis fracture 5mg 01/29 Inactiv e 2023 65028 87088 1 Every 4 hours as needed By [...] For Muscle spasms 175mg 2023 Active 2023 32351 96274 1 Every 6 hours as needed By Mouth False Cephalexin 500 mg capsule [generic] 500mg By Mouth Every 8 hours For UTI 500mg 01/30 Inactiv e 2023 34630 11063 1 Every 8 hours By Mouth False Aspirin 81 mg chewable tablet [generic] 81 mg By Mouth Once daily For AAA 81 mg 2023 Active 2023 34909 13334 6 Once daily By Mouth False Colace 100 mg capsule 100mg By Mouth Twice daily For constipation 100mg 2023 Active 2023 22968 83536 1 Twice daily By Mouth False Enoxaparin 300 mg/3 mL subcutaneou s solution [generic] 20mg Subcutaneous Once daily For anticoag. 20mg 02/06 Inactiv e 2023 90067 27329 1 Once daily Subcut aneous False Losartan 50 mg tablet [generic] 50 By Mouth Once daily For HTN 50 02/16 Inactiv e 2023 67244 14620 9 Once daily By Mouth False Miralax 17 gram/dose oral powder 17 gram By Mouth Once daily For contispation 17 gram 02/17 Inactiv e 2023 76221 33879 0 Once daily By Mouth False Senna 8.6 mg tablet 2 tabs By Mouth Once daily For constipation 2 tabs 02/17 Inactiv e 2023 59499 70624 1 Once daily By Mouth False Simvastatin 20 mg tablet [generic] 20 mg By Mouth Once daily For Hyperlipidemi a 20 mg 2023 Active 2023 56711 46403 0 Once daily By Mouth False Spiriva with HandiHaler 18 mcg and inhalation capsules 1 capsule Inhalation Once daily For COPD 1 capsule 2023 Active 2023 02650 72346 1 Once daily Inhala tion False Ventolin HFA 90 mcg/actuati on aerosol inhaler 2 puff Inhalation Every 4 hours as needed For COPD 2 puff 2023 Active 2023 33833 08110 0 Every 4 hours as needed Inhala tion False ProSource No Carb 15 gram-60 kcal/30 mL oral liquid 30ml By Mouth Twice daily For Protien supplement 30ml 01/30 Inactiv e 2023 39850 31869 5 Twice daily By Mouth False Albuterol sulfate 2.5 mg/3 mL (0.083 %) solution for nebulizatio n [generic] 3 ml Inhalation Every 6 hours as needed For wheezing 3 ml 2023 Active 2023 82840 49943 3 Every 6 hours as needed Inhala tion False Acetaminoph en 325 mg tablet [generic] 650 mg By Mouth Every 6 hours For Mild Pain 650 mg 01/29 Inactiv e 2023 78210 72670 0 Every 6 hours By Mouth False Tylenol 325 mg tablet 2 tabs By Mouth Every 4 hours as needed For Pain DO NOT EXCEED 3000 MG APAP/24 Hours 2 tabs 2023 Active 2023 58661 59430 0 Every 4 hours as needed By Mouth False Tylenol 325 mg tablet 2 tabs By Mouth Every 4 hours as needed For Fever >100 DO NOT EXCEED 3000 MG APAP/24 Hours 2 tabs 2023 Active 2023 88825 96635 0 Every 4 hours as needed By Mouth False Dulcolax (bisacodyl) 10 mg rectal suppository One Suppository per rectum PRN if Milk of Magnisia ineffective. Give on day 5 of no BM 1 sup 2023 Active 2023 57130 71414 1 Daily as needed Rectal False Fleet Enema 19 gram-7 gram/118 mL Administer per rectum PRN one time if dulcolax suppository not effective. Give on day 6 of no BM 1 2023 Active 2023 20374 28376 6 Daily as needed Rectal False Milk of Magnesia 400 mg/5 mL oral suspension [Magnesium hydroxide] PRN 30ml By Mouth Daily as needed for constipation one time daily if no BM, on day 4 of no BM (PRN refer to instructions) For Constipation 30 mL 2023 Active 2023 49749 58331 6 Daily as needed By Mouth False Oxycodone 5 mg tablet [generic] 01/29 Inactiv e 2023 83456 18739 1 Oxycodone 5 mg tablet [generic] 5mg By Mouth Every 4 hours as needed for severe pain for pain rate 7-10. For right pubis fracture 5mg 01/31 Inactiv e 2023 88368 37427 1 Every 4 hours as needed By Mouth False Cymbalta 30 mg capsule,del ayed release 30 mg By Mouth Once daily For Depression 30 mg 02/04 Inactiv e 2023 13745 62620 0 Once daily By Mouth False Acetaminoph en 500 mg tablet [generic] 1000 mg By Mouth Twice daily not to exceed 3gm APAP in 24 hours For Pain 1000 mg 2023 Active 2023 97241 52925 8 Twice daily By Mouth False Healthshake 118 ml BID 118 ml By Mouth Twice daily Healthshake 118 ml BID For MNA of 7 - malnourished - please record total ml consumed 118 ml 2023 Active 2023 Twice daily By Mouth False Oxycodone 5 mg tablet [generic] 01/31 Inactiv e 2023 19452 57755 1 Oxycodone 5 mg tablet [generic] 5mg By Mouth Every 4 hours as needed for severe pain for pain rate 7-10. For right pubis fracture 5mg 02/01 Inactiv e 2023 89449 35884 1 Every 4 hours as needed By Mouth False Oxycodone 5 mg tablet [generic] 5mg By Mouth Every 4 hours as needed for severe pain 7-10 For right pubis fx 5mg 2023 Active 2023 91170 58576 1 Every 4 hours as needed By Mouth False Cymbalta 60 mg capsule,del ayed release 60mg Once daily depression 60mg 2023 Active 2023 99093 66008 0 Once daily By Mouth False Enoxaparin 40 mg/0.4 mL subcutaneou s syringe [generic] 20mg Subcutaneous Once daily For anticoag 20mg 2023 Active 2023 57310 25926 0 Once daily Subcut aneous False Losartan 50 mg tablet [generic] 75 mg By Mouth Once daily For ESSENTIAL (PRIMARY) HYPERTENSION 75 mg 02/17 Inactiv e 2023 86540 08455 9 Once daily By Mouth I10. False Losartan 50 mg tablet [generic] 75 mg By Mouth ( 1.5 TABS) Once daily For ESSENTIAL (PRIMARY) HYPERTENSION 75 mg 2023 Active 2023 11326 66545 9 Once daily By Mouth I10. False Senna 8.6 mg tablet 2 tabs By Mouth Once daily As Needed For constipation 2 tabs 2023 Active 2023 63592 05290 1 Once daily By Mouth False Miralax 17 gram/dose oral powder 17 gram By Mouth As Needed For contispation 17 gram 2023 Active 2023 88789 62742 0 By Mouth False Problems Code Description [...] Temperature SpO2 Blood Sugar Pulse Respirations 210 32630 7 78.00 mm[Hg] - Lying Down 186.00 mm[Hg] - Lying Down 109.80 NI 97.90 Forehead Scan 91.00 % 92.00/ min 18.00/min 210 58596 1 74.00 mm[Hg] - Lying Down 147.00 mm[Hg] - Lying Down 85.00/ min 211 99861 2 72.00 mm[Hg] - Sitting 138.00 mm[Hg] - Sitting 98.40 Tympanic 86.00/ min 18.00/min 71478 211 11588 2 59.00 mm[Hg] - Sitting 117.00 mm[Hg] - Sitting 98.20 Tympanic 99.00 % 81.00/ min 18.00/min 80754 211 90059 5 69.00 mm[Hg] - Sitting 145.00 mm[Hg] - Sitting 75006 211 13067 9 69.00 mm[Hg] - Sitting 145.00 mm[Hg] - Sitting 61025 211 65720 5 69.00 mm[Hg] - Sitting 145.00 mm[Hg] - Sitting 24165 211 40652 6 69.00 mm[Hg] - Sitting 92325 212 33183 7 59.00 mm[Hg] - Sitting 117.00 mm[Hg] - Sitting 98.20 Tympanic 81.00/ min 18.00/min 49153 212 77603 9 97.80 Tympanic 89384 212 27269 6 55.00 mm[Hg] - Sitting 109.00 mm[Hg] - Sitting 97.30 Tympanic 94.00 % 75.00/ min 18.00/min 55212 212 66649 5 68.00 mm[Hg] - Sitting 128.00 mm[Hg] - Sitting 97.80 Tympanic 80.00/ min 18.00/min 49149 212 60972 4 97.50 Tympanic 16513 212 65479 9 91873 212 08962 6 71.00 mm[Hg] - Sitting 117.00 mm[Hg] - Sitting 04780 213 06430 0 60.00 mm[Hg] - Sitting 116.00 mm[Hg] - Sitting 98.40 Forehead Scan 94.00 % 72.00/ min 16.00/min 51351 213 15040 7 70.00 mm[Hg] - Sitting 118.00 mm[Hg] - Sitting 98.00 Tympanic 82.00/ min 18.00/min 05114 213 27922 3 97.90 Tympanic 24769 213 98718 5 73.00 mm[Hg] - Lying Down 127.00 mm[Hg] - Lying Down 22569 213 34145 3 46567 214 78395 1 62.00 mm[Hg] - Sitting 127.00 mm[Hg] - Sitting 97.80 Tympanic 94.00 % 72.00/ min 16.00/min 74058 214 37071 4 59.00 mm[Hg] - Lying Down 113.00 mm[Hg] - Lying Down 25552 215 93386 0 56.00 mm[Hg] - Sitting 101.00 mm[Hg] - Sitting 97.80 Tympanic 95.00 % 71.00/ min 16.00/min 48609 215 69530 5 62 NI 63001 215 72969 8 57.00 mm[Hg] - Lying Down 113.00 mm[Hg] - Lying Down 78592 216 82165 3 71.00 mm[Hg] - Sitting 161.00 mm[Hg] - Sitting 98.10 Tympanic 93.00 % 81.00/ min 16.00/min 216 16947 1 72.00 mm[Hg] - Sitting 115.00 mm[Hg] - Sitting 29310 217 92408 2 69689 217 68792 4 62.00 mm[Hg] - Sitting 112.00 mm[Hg] - Sitting 82047 217 09553 3 57.00 mm[Hg] - Sitting 114.00 mm[Hg] - Sitting 98.30 Tympanic 98.00 % 78.00/ min 20.00/min 217 39607 4 62.00 mm[Hg] - Lying Down 111.00 mm[Hg] - Lying Down 16507 218 75366 0 70.00 mm[Hg] - Sitting 158.00 mm[Hg] - Sitting 97.60 Tympanic 97.00 % 68.00/ min 18.00/min 73199 218 67354 5 65.00 mm[Hg] - Lying Down 113.00 mm[Hg] - Lying Down 63453 219 53835 1 67.00 mm[Hg] - Sitting 112.00 mm[Hg] - Sitting 79351 220 07210 0 82.00 mm[Hg] - Sitting 160.00 mm[Hg] - Sitting 97.90 Forehead Scan 95.00 % 87.00/ min 16.00/min 61182 220 91899 7 69.00 mm[Hg] - Sitting 119.00 mm[Hg] - Sitting 42809 221 40522 1 82.00 mm[Hg] - Sitting 156.00 mm[Hg] - Sitting 98.20 Tympanic 95.00 % 72.00/ min 18.00/min 76008 221 76805 1 78.00 mm[Hg] - Sitting 148.00 mm[Hg] - Sitting 87879 222 18231 0 81.00 mm[Hg] - Sitting 161.00 mm[Hg] - Sitting 97.70 Tympanic 94.00 % 80.00/ min 18.00/min 222 52538 3 87.00 mm[Hg] - Sitting 141.00 mm[Hg] - Sitting 223 28420 9 68.00 mm[Hg] - Sitting 138.00 mm[Hg] - Sitting 98.10 Tympanic 92.00 % 85.00/ min 18.00/min 223 91490 4 67.00 mm[Hg] - Sitting 128.00 mm[Hg] - Sitting 224 42912 6 58604 224 58126 5 73.00 mm[Hg] - Lying Down 151.00 mm[Hg] - Lying Down 98.40 Tympanic 95.00 % 75.00/ min 18.00/min 224 90660 3 63.00 mm[Hg] - Sitting 124.00 mm[Hg] - Sitting 225 12082 1 97.30 Tympanic 72.00/ min 20.00/min
--- OUTSIDE RECORDS SUMMARY | 2024-04-10 03:15 | External Medical Summary | Continuity Of Care Document ---
Author Name Unknown Address [address] [address] Organization [facility] () Care Team Providers Care Oracle Analyst Name Role Phone DO Alonso Amy Primary Care Provider [phone] Allergies Allergy Reaction Start Date End Date [...] 3 0.1 mL 01/29 Inactiv e 2023 10371 76696 0 1 time Intrad ermal False Tubersol 5 tub. unit/0.1 mL intradermal injection solution [Tuberculin PPD] 0.1mL Intradermal 1 time For PPD 2nd Step Give 2nd Step PPD Day 1 and Read results Day 3 (schedule 7 days after 1st READ) 0.1mL 02/07 Inactiv e 2023 16550 87794 0 1 time Intrad ermal False Oxycodone 5 mg tablet [generic] 5mg By Mouth Every 4 hours as needed for severe pain for pain rate 7-10. For right pubis fracture 5mg 01/27 Inactiv e 2023 97743 63140 1 Every 4 hours as needed By Mouth False OXYCODONE 5 MG TABLET [GENERIC]IM MEDIATE RELEASE 2.5mg By Mouth Every 4 hours as needed tablet po for moderate pain, pain rate 4-6 on pain scale 1-10. For pain 2.5mg 01/27 Inactiv e 2023 Every 4 hours as needed By Mouth False Oxycodone 5 mg tablet [generic] 01/27 Inactiv e 2023 35925 72265 1 Oxycodone 5 mg tablet [generic] 5mg By Mouth Every 4 hours as needed for severe pain for pain rate 7-10. For right pubis fracture 5mg 01/29 Inactiv e 2023 28319 83303 1 Every 4 hours as needed By [...] For Muscle spasms 175mg 2023 Active 2023 41033 05717 1 Every 6 hours as needed By Mouth False Cephalexin 500 mg capsule [generic] 500mg By Mouth Every 8 hours For UTI 500mg 01/30 Inactiv e 2023 01218 98560 1 Every 8 hours By Mouth False Aspirin 81 mg chewable tablet [generic] 81 mg By Mouth Once daily For AAA 81 mg 2023 Active 2023 39726 17018 6 Once daily By Mouth False Colace 100 mg capsule 100mg By Mouth Twice daily For constipation 100mg 2023 Active 2023 29746 32775 1 Twice daily By Mouth False Enoxaparin 300 mg/3 mL subcutaneou s solution [generic] 20mg Subcutaneous Once daily For anticoag. 20mg 02/06 Inactiv e 2023 49767 73803 1 Once daily Subcut aneous False Losartan 50 mg tablet [generic] 50 By Mouth Once daily For HTN 50 02/16 Inactiv e 2023 45807 46939 9 Once daily By Mouth False Miralax 17 gram/dose oral powder 17 gram By Mouth Once daily For contispation 17 gram 02/17 Inactiv e 2023 45718 77931 0 Once daily By Mouth False Senna 8.6 mg tablet 2 tabs By Mouth Once daily For constipation 2 tabs 02/17 Inactiv e 2023 73383 12675 1 Once daily By Mouth False Simvastatin 20 mg tablet [generic] 20 mg By Mouth Once daily For Hyperlipidemi a 20 mg 2023 Active 2023 71201 82928 0 Once daily By Mouth False Spiriva with HandiHaler 18 mcg and inhalation capsules 1 capsule Inhalation Once daily For COPD 1 capsule 2023 Active 2023 51269 92838 1 Once daily Inhala tion False Ventolin HFA 90 mcg/actuati on aerosol inhaler 2 puff Inhalation Every 4 hours as needed For COPD 2 puff 2023 Active 2023 67381 55348 0 Every 4 hours as needed Inhala tion False ProSource No Carb 15 gram-60 kcal/30 mL oral liquid 30ml By Mouth Twice daily For Protien supplement 30ml 01/30 Inactiv e 2023 11508 26084 5 Twice daily By Mouth False Albuterol sulfate 2.5 mg/3 mL (0.083 %) solution for nebulizatio n [generic] 3 ml Inhalation Every 6 hours as needed For wheezing 3 ml 2023 Active 2023 97806 52697 3 Every 6 hours as needed Inhala tion False Acetaminoph en 325 mg tablet [generic] 650 mg By Mouth Every 6 hours For Mild Pain 650 mg 01/29 Inactiv e 2023 58785 05822 0 Every 6 hours By Mouth False Tylenol 325 mg tablet 2 tabs By Mouth Every 4 hours as needed For Pain DO NOT EXCEED 3000 MG APAP/24 Hours 2 tabs 2023 Active 2023 09966 30160 0 Every 4 hours as needed By Mouth False Tylenol 325 mg tablet 2 tabs By Mouth Every 4 hours as needed For Fever >100 DO NOT EXCEED 3000 MG APAP/24 Hours 2 tabs 2023 Active 2023 89349 96217 0 Every 4 hours as needed By Mouth False Dulcolax (bisacodyl) 10 mg rectal suppository One Suppository per rectum PRN if Milk of Magnisia ineffective. Give on day 5 of no BM 1 sup 2023 Active 2023 68122 03163 1 Daily as needed Rectal False Fleet Enema 19 gram-7 gram/118 mL Administer per rectum PRN one time if dulcolax suppository not effective. Give on day 6 of no BM 1 2023 Active 2023 12138 25339 6 Daily as needed Rectal False Milk of Magnesia 400 mg/5 mL oral suspension [Magnesium hydroxide] PRN 30ml By Mouth Daily as needed for constipation one time daily if no BM, on day 4 of no BM (PRN refer to instructions) For Constipation 30 mL 2023 Active 2023 16227 05109 6 Daily as needed By Mouth False Oxycodone 5 mg tablet [generic] 01/29 Inactiv e 2023 39270 66280 1 Oxycodone 5 mg tablet [generic] 5mg By Mouth Every 4 hours as needed for severe pain for pain rate 7-10. For right pubis fracture 5mg 01/31 Inactiv e 2023 86814 98178 1 Every 4 hours as needed By Mouth False Cymbalta 30 mg capsule,del ayed release 30 mg By Mouth Once daily For Depression 30 mg 02/04 Inactiv e 2023 82376 45853 0 Once daily By Mouth False Acetaminoph en 500 mg tablet [generic] 1000 mg By Mouth Twice daily not to exceed 3gm APAP in 24 hours For Pain 1000 mg 2023 Active 2023 68820 63474 8 Twice daily By Mouth False Healthshake 118 ml BID 118 ml By Mouth Twice daily Healthshake 118 ml BID For MNA of 7 - malnourished - please record total ml consumed 118 ml 2023 Active 2023 Twice daily By Mouth False Oxycodone 5 mg tablet [generic] 01/31 Inactiv e 2023 74059 08541 1 Oxycodone 5 mg tablet [generic] 5mg By Mouth Every 4 hours as needed for severe pain for pain rate 7-10. For right pubis fracture 5mg 02/01 Inactiv e 2023 67494 58975 1 Every 4 hours as needed By Mouth False Oxycodone 5 mg tablet [generic] 5mg By Mouth Every 4 hours as needed for severe pain 7-10 For right pubis fx 5mg 2023 Active 2023 24585 69140 1 Every 4 hours as needed By Mouth False Cymbalta 60 mg capsule,del ayed release 60mg Once daily depression 60mg 2023 Active 2023 04979 85449 0 Once daily By Mouth False Enoxaparin 40 mg/0.4 mL subcutaneou s syringe [generic] 20mg Subcutaneous Once daily For anticoag 20mg 2023 Active 2023 22170 41130 0 Once daily Subcut aneous False Losartan 50 mg tablet [generic] 75 mg By Mouth Once daily For ESSENTIAL (PRIMARY) HYPERTENSION 75 mg 02/17 Inactiv e 2023 06403 76342 9 Once daily By Mouth I10. False Losartan 50 mg tablet [generic] 75 mg By Mouth ( 1.5 TABS) Once daily For ESSENTIAL (PRIMARY) HYPERTENSION 75 mg 2023 Active 2023 91155 50926 9 Once daily By Mouth I10. False Senna 8.6 mg tablet 2 tabs By Mouth Once daily As Needed For constipation 2 tabs 2023 Active 2023 53462 42272 1 Once daily By Mouth False Miralax 17 gram/dose oral powder 17 gram By Mouth As Needed For contispation 17 gram 2023 Active 2023 59798 15441 0 By Mouth False Problems Code Description [...] Temperature SpO2 Blood Sugar Pulse Respirations 210 56292 7 78.00 mm[Hg] - Lying Down 186.00 mm[Hg] - Lying Down 109.80 NI 97.90 Forehead Scan 91.00 % 92.00/ min 18.00/min 210 80798 1 74.00 mm[Hg] - Lying Down 147.00 mm[Hg] - Lying Down 85.00/ min 211 36848 2 72.00 mm[Hg] - Sitting 138.00 mm[Hg] - Sitting 98.40 Tympanic 86.00/ min 18.00/min 27230 211 97303 2 59.00 mm[Hg] - Sitting 117.00 mm[Hg] - Sitting 98.20 Tympanic 99.00 % 81.00/ min 18.00/min 04142 211 98002 5 69.00 mm[Hg] - Sitting 145.00 mm[Hg] - Sitting 74900 211 94151 9 69.00 mm[Hg] - Sitting 145.00 mm[Hg] - Sitting 81321 211 91251 5 69.00 mm[Hg] - Sitting 145.00 mm[Hg] - Sitting 00080 211 77294 6 69.00 mm[Hg] - Sitting 02609 212 77626 7 59.00 mm[Hg] - Sitting 117.00 mm[Hg] - Sitting 98.20 Tympanic 81.00/ min 18.00/min 65426 212 25153 9 97.80 Tympanic 86465 212 77890 6 55.00 mm[Hg] - Sitting 109.00 mm[Hg] - Sitting 97.30 Tympanic 94.00 % 75.00/ min 18.00/min 43146 212 58571 5 68.00 mm[Hg] - Sitting 128.00 mm[Hg] - Sitting 97.80 Tympanic 80.00/ min 18.00/min 42290 212 58363 4 97.50 Tympanic 07312 212 04343 9 47956 212 00636 6 71.00 mm[Hg] - Sitting 117.00 mm[Hg] - Sitting 10513 213 09459 0 60.00 mm[Hg] - Sitting 116.00 mm[Hg] - Sitting 98.40 Forehead Scan 94.00 % 72.00/ min 16.00/min 87771 213 63626 7 70.00 mm[Hg] - Sitting 118.00 mm[Hg] - Sitting 98.00 Tympanic 82.00/ min 18.00/min 33117 213 55278 3 97.90 Tympanic 36486 213 53132 5 73.00 mm[Hg] - Lying Down 127.00 mm[Hg] - Lying Down 70249 213 33794 3 41991 214 49083 1 62.00 mm[Hg] - Sitting 127.00 mm[Hg] - Sitting 97.80 Tympanic 94.00 % 72.00/ min 16.00/min 11448 214 66986 4 59.00 mm[Hg] - Lying Down 113.00 mm[Hg] - Lying Down 62440 215 63330 0 56.00 mm[Hg] - Sitting 101.00 mm[Hg] - Sitting 97.80 Tympanic 95.00 % 71.00/ min 16.00/min 59184 215 40056 5 62 NI 34483 215 78005 8 57.00 mm[Hg] - Lying Down 113.00 mm[Hg] - Lying Down 00390 216 97247 3 71.00 mm[Hg] - Sitting 161.00 mm[Hg] - Sitting 98.10 Tympanic 93.00 % 81.00/ min 16.00/min 216 32917 1 72.00 mm[Hg] - Sitting 115.00 mm[Hg] - Sitting 36879 217 16991 2 84006 217 28082 4 62.00 mm[Hg] - Sitting 112.00 mm[Hg] - Sitting 92577 217 62937 3 57.00 mm[Hg] - Sitting 114.00 mm[Hg] - Sitting 98.30 Tympanic 98.00 % 78.00/ min 20.00/min 217 55865 4 62.00 mm[Hg] - Lying Down 111.00 mm[Hg] - Lying Down 37414 218 72418 0 70.00 mm[Hg] - Sitting 158.00 mm[Hg] - Sitting 97.60 Tympanic 97.00 % 68.00/ min 18.00/min 87612 218 62932 5 65.00 mm[Hg] - Lying Down 113.00 mm[Hg] - Lying Down 49550 219 04204 1 67.00 mm[Hg] - Sitting 112.00 mm[Hg] - Sitting 76421 220 14021 0 82.00 mm[Hg] - Sitting 160.00 mm[Hg] - Sitting 97.90 Forehead Scan 95.00 % 87.00/ min 16.00/min 69738 220 17427 7 69.00 mm[Hg] - Sitting 119.00 mm[Hg] - Sitting 89634 221 61820 1 82.00 mm[Hg] - Sitting 156.00 mm[Hg] - Sitting 98.20 Tympanic 95.00 % 72.00/ min 18.00/min 79129 221 39659 1 78.00 mm[Hg] - Sitting 148.00 mm[Hg] - Sitting 00259 222 04650 0 81.00 mm[Hg] - Sitting 161.00 mm[Hg] - Sitting 97.70 Tympanic 94.00 % 80.00/ min 18.00/min 222 21417 3 87.00 mm[Hg] - Sitting 141.00 mm[Hg] - Sitting 223 76655 9 68.00 mm[Hg] - Sitting 138.00 mm[Hg] - Sitting 98.10 Tympanic 92.00 % 85.00/ min 18.00/min 223 82305 4 67.00 mm[Hg] - Sitting 128.00 mm[Hg] - Sitting 224 99990 6 224 85604 5 73.00 mm[Hg] - Lying Down 151.00 mm[Hg] - Lying Down 98.40 Tympanic 95.00 % 75.00/ min 18.00/min 224 10645 3 63.00 mm[Hg] - Sitting 124.00 mm[Hg] - Sitting 225 30596 1 97.30 Tympanic 95.00 % 72.00/ min 20.00/min 225 69668 6 67.00 mm[Hg] - Sitting 132.00 mm[Hg] - Sitting 226 56304 2 67.00 mm[Hg] - Sitting 121.00 mm[Hg] - Sitting 227 12187 0 70.00 mm[Hg] - Sitting 137.00 mm[Hg] - Sitting 98.70 Forehead Scan 96.00 % 70.00/ min 16.00/min 227 46520 6 69.00 mm[Hg] - Sitting 131.00 mm[Hg] - Sitting 228 26342 7 79.00 mm[Hg] - Lying Down 181.00 mm[Hg] - Lying Down 98.40 Tympanic 98.00 % 75.00/ min 20.00/min 77238 228 93668 1 68.00 mm[Hg] - Lying Down 130.00 mm[Hg] - Lying Down 229 59725 6 80.00 mm[Hg] - Lying Down 183.00 mm[Hg] - Lying Down 98.60 Tympanic 97.00 % 75.00/ min 16.00/min 229 21304 4 74.00 mm[Hg] - Lying Down 161.00 mm[Hg] - Lying Down 77.00/ min 27132 229 02719 9 87.00 mm[Hg] - Sitting 175.00 mm[Hg] - Sitting 21272 230 26698 7 83.00 mm[Hg] - Sitting 186.00 mm[Hg] - Sitting 98.30 Tympanic 94.00 % 86.00/ min 18.00/min 24484 230 53301 6 70.00 mm[Hg] - Sitting 125.00 mm[Hg] - Sitting 51752 231 67815 8 38133 231 43824 4 77.00 mm[Hg] - Sitting 159.00 mm[Hg] - Sitting 98.70 Tympanic 95.00 % 78.00/ min 18.00/min 74001 231 79501 8 77.00 mm[Hg] - Sitting 139.00 mm[Hg] - Sitting 02674 101 07383 3 98.40 Tympanic 95.00 % 85.00/ min 20.00/min 86736 101 97321 5 107.00 NI 98.40 Tympanic 86.00/ min 20.00/min 51751 101 94290 7 107.00 NI 98.40 Tympanic 86.00/ min 20.00/min 89477 101 04819 2 72.00 mm[Hg] - Sitting 136.00 mm[Hg] - Sitting 92952 102 77229 8 77.00 mm[Hg] - Sitting 160.00 mm[Hg] - Sitting 98.20 Tympanic 94.00 % 83.00/ min 18.00/min 10488 102 30767 4 67.00 mm[Hg] - Sitting 132.00 mm[Hg] - Sitting
--- OUTSIDE RECORDS SUMMARY | 2024-04-10 03:15 | External Medical Summary | Continuity Of Care Document ---
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 unit/0.1 mL intradermal injection solution [Tuberculin PPD] 0.1mL Intradermal 1 time For PPD 2nd Step Give 2nd Step PPD Day 1 and Read results Day 3 (schedule 7 days after 1st READ) 0.1mL 02/07 Inactiv e 2023 81108 87801 0 1 time Intrad ermal False Oxycodone 5 mg tablet [generic] 5mg By Mouth Every 4 hours as needed for severe pain for pain rate 7-10. For right pubis fracture 5mg 01/27 Inactiv e 2023 96875 40315 1 Every 4 hours as needed By Mouth False OXYCODONE 5 MG TABLET [GENERIC]IM MEDIATE RELEASE 2.5mg By Mouth Every 4 hours as needed tablet po for moderate pain, pain rate 4-6 on pain scale 1-10. For pain 2.5mg 01/27 Inactiv e 2023 Every 4 hours as needed By Mouth False Oxycodone 5 mg tablet [generic] 01/27 Inactiv e 2023 72561 78603 1 Oxycodone 5 mg tablet [generic] 5mg By Mouth Every 4 hours as needed for severe pain for pain rate 7-10. For right pubis fracture 5mg 01/29 Inactiv e 2023 04911 99908 1 Every 4 hours as needed By [...] For Muscle spasms 175mg 2023 Active 2023 14925 79069 1 Every 6 hours as needed By Mouth False Cephalexin 500 mg capsule [generic] 500mg By Mouth Every 8 hours For UTI 500mg 01/30 Inactiv e 2023 74290 93185 1 Every 8 hours By Mouth False Aspirin 81 mg chewable tablet [generic] 81 mg By Mouth Once daily For AAA 81 mg 2023 Active 2023 94917 34009 6 Once daily By Mouth False Colace 100 mg capsule 100mg By Mouth Twice daily For constipation 100mg 2023 Active 2023 91343 19670 1 Twice daily By Mouth False Enoxaparin 300 mg/3 mL subcutaneou s solution [generic] 20mg Subcutaneous Once daily For anticoag. 20mg 02/06 Inactiv e 2023 40833 69159 1 Once daily Subcut aneous False Losartan 50 mg tablet [generic] 50 By Mouth Once daily For HTN 50 02/16 Inactiv e 2023 07622 61998 9 Once daily By Mouth False Miralax 17 gram/dose oral powder 17 gram By Mouth Once daily For contispation 17 gram 02/17 Inactiv e 2023 78315 16382 0 Once daily By Mouth False Senna 8.6 mg tablet 2 tabs By Mouth Once daily For constipation 2 tabs 02/17 Inactiv e 2023 77347 36752 1 Once daily By Mouth False Simvastatin 20 mg tablet [generic] 20 mg By Mouth Once daily For Hyperlipidemi a 20 mg 2023 Active 2023 60742 13387 0 Once daily By Mouth False Spiriva with HandiHaler 18 mcg and inhalation capsules 1 capsule Inhalation Once daily For COPD 1 capsule 2023 Active 2023 14918 29466 1 Once daily Inhala tion False Ventolin HFA 90 mcg/actuati on aerosol inhaler 2 puff Inhalation Every 4 hours as needed For COPD 2 puff 2023 Active 2023 03523 55786 0 Every 4 hours as needed Inhala tion False ProSource No Carb 15 gram-60 kcal/30 mL oral liquid 30ml By Mouth Twice daily For Protien supplement 30ml 01/30 Inactiv e 2023 64373 63416 5 Twice daily By Mouth False Albuterol sulfate 2.5 mg/3 mL (0.083 %) solution for nebulizatio n [generic] 3 ml Inhalation Every 6 hours as needed For wheezing 3 ml 2023 Active 2023 56415 91321 3 Every 6 hours as needed Inhala tion False Acetaminoph en 325 mg tablet [generic] 650 mg By Mouth Every 6 hours For Mild Pain 650 mg 01/29 Inactiv e 2023 84585 86233 0 Every 6 hours By Mouth False Tylenol 325 mg tablet 2 tabs By Mouth Every 4 hours as needed For Pain DO NOT EXCEED 3000 MG APAP/24 Hours 2 tabs 2023 Active 2023 23468 14768 0 Every 4 hours as needed By Mouth False Tylenol 325 mg tablet 2 tabs By Mouth Every 4 hours as needed For Fever >100 DO NOT EXCEED 3000 MG APAP/24 Hours 2 tabs 2023 Active 2023 92576 25587 0 Every 4 hours as needed By Mouth False Dulcolax (bisacodyl) 10 mg rectal suppository One Suppository per rectum PRN if Milk of Magnisia ineffective. Give on day 5 of no BM 1 sup 2023 Active 2023 27508 56960 1 Daily as needed Rectal False Fleet Enema 19 gram-7 gram/118 mL Administer per rectum PRN one time if dulcolax suppository not effective. Give on day 6 of no BM 1 2023 Active 2023 13526 32065 6 Daily as needed Rectal False Milk of Magnesia 400 mg/5 mL oral suspension [Magnesium hydroxide] PRN 30ml By Mouth Daily as needed for constipation one time daily if no BM, on day 4 of no BM (PRN refer to instructions) For Constipation 30 mL 2023 Active 2023 39233 09463 6 Daily as needed By Mouth False Oxycodone 5 mg tablet [generic] 01/29 Inactiv e 2023 13198 43234 1 Oxycodone 5 mg tablet [generic] 5mg By Mouth Every 4 hours as needed for severe pain for pain rate 7-10. For right pubis fracture 5mg 01/31 Inactiv e 2023 91351 71492 1 Every 4 hours as needed By Mouth False Cymbalta 30 mg capsule,del ayed release 30 mg By Mouth Once daily For Depression 30 mg 02/04 Inactiv e 2023 85438 30390 0 Once daily By Mouth False Acetaminoph en 500 mg tablet [generic] 1000 mg By Mouth Twice daily not to exceed 3gm APAP in 24 hours For Pain 1000 mg 2023 Active 2023 63403 12231 8 Twice daily By Mouth False Healthshake 118 ml BID 118 ml By Mouth Twice daily Healthshake 118 ml BID For MNA of 7 - malnourished - please record total ml consumed 118 ml 2023 Active 2023 Twice daily By Mouth False Oxycodone 5 mg tablet [generic] 01/31 Inactiv e 2023 91376 82363 1 Oxycodone 5 mg tablet [generic] 5mg By Mouth Every 4 hours as needed for severe pain for pain rate 7-10. For right pubis fracture 5mg 02/01 Inactiv e 2023 05846 12517 1 Every 4 hours as needed By Mouth False Oxycodone 5 mg tablet [generic] 5mg By Mouth Every 4 hours as needed for severe pain 7-10 For right pubis fx 5mg 2023 Active 2023 53557 84964 1 Every 4 hours as needed By Mouth False Cymbalta 60 mg capsule,del ayed release 60mg Once daily depression 60mg 2023 Active 2023 68443 07382 0 Once daily By Mouth False Enoxaparin 40 mg/0.4 mL subcutaneou s syringe [generic] 20mg Subcutaneous Once daily For anticoag 20mg 2023 Active 2023 37516 65084 0 Once daily Subcut aneous False Losartan 50 mg tablet [generic] 75 mg By Mouth Once daily For ESSENTIAL (PRIMARY) HYPERTENSION 75 mg 02/17 Inactiv e 2023 08679 06523 9 Once daily By Mouth I10. False Losartan 50 mg tablet [generic] 75 mg By Mouth ( 1.5 TABS) Once daily For ESSENTIAL (PRIMARY) HYPERTENSION 75 mg 2023 Active 2023 06443 34306 9 Once daily By Mouth I10. False Senna 8.6 mg tablet 2 tabs By Mouth Once daily As Needed For constipation 2 tabs 2023 Active 2023 58588 30874 1 Once daily By Mouth False Miralax 17 gram/dose oral powder 17 gram By Mouth As Needed For contispation 17 gram 2023 Active 2023 61871 11437 0 By Mouth False Problems Code Description [...] Temperature SpO2 Blood Sugar Pulse Respirations 210 01083 7 78.00 mm[Hg] - Lying Down 186.00 mm[Hg] - Lying Down 109.80 NI 97.90 Forehead Scan 91.00 % 92.00/ min 18.00/min 210 39776 1 74.00 mm[Hg] - Lying Down 147.00 mm[Hg] - Lying Down 85.00/ min 211 22380 2 72.00 mm[Hg] - Sitting 138.00 mm[Hg] - Sitting 98.40 Tympanic 86.00/ min 18.00/min 99272 211 41834 2 59.00 mm[Hg] - Sitting 117.00 mm[Hg] - Sitting 98.20 Tympanic 99.00 % 81.00/ min 18.00/min 00725 211 00660 5 69.00 mm[Hg] - Sitting 145.00 mm[Hg] - Sitting 22193 211 54886 9 69.00 mm[Hg] - Sitting 145.00 mm[Hg] - Sitting 64154 211 90635 5 69.00 mm[Hg] - Sitting 145.00 mm[Hg] - Sitting 08327 211 67942 6 69.00 mm[Hg] - Sitting 29300 212 19811 7 59.00 mm[Hg] - Sitting 117.00 mm[Hg] - Sitting 98.20 Tympanic 81.00/ min 18.00/min 53293 212 27431 9 97.80 Tympanic 35118 212 82788 6 55.00 mm[Hg] - Sitting 109.00 mm[Hg] - Sitting 97.30 Tympanic 94.00 % 75.00/ min 18.00/min 70545 212 80576 5 68.00 mm[Hg] - Sitting 128.00 mm[Hg] - Sitting 97.80 Tympanic 80.00/ min 18.00/min 77619 212 26154 4 97.50 Tympanic 83649 212 62068 9 64903 212 69038 6 71.00 mm[Hg] - Sitting 117.00 mm[Hg] - Sitting 17625 213 71315 0 60.00 mm[Hg] - Sitting 116.00 mm[Hg] - Sitting 98.40 Forehead Scan 94.00 % 72.00/ min 16.00/min 05186 213 84312 7 70.00 mm[Hg] - Sitting 118.00 mm[Hg] - Sitting 98.00 Tympanic 82.00/ min 18.00/min 28032 213 67019 3 97.90 Tympanic 93946 213 07774 5 73.00 mm[Hg] - Lying Down 127.00 mm[Hg] - Lying Down 99979 213 96268 3 11939 214 01463 1 62.00 mm[Hg] - Sitting 127.00 mm[Hg] - Sitting 97.80 Tympanic 94.00 % 72.00/ min 16.00/min 48158 214 00639 4 59.00 mm[Hg] - Lying Down 113.00 mm[Hg] - Lying Down 18799 215 78740 0 56.00 mm[Hg] - Sitting 101.00 mm[Hg] - Sitting 97.80 Tympanic 95.00 % 71.00/ min 16.00/min 24676 215 78532 5 62 NI 00083 215 96851 8 57.00 mm[Hg] - Lying Down 113.00 mm[Hg] - Lying Down 50181 216 69136 3 71.00 mm[Hg] - Sitting 161.00 mm[Hg] - Sitting 98.10 Tympanic 93.00 % 81.00/ min 16.00/min 216 98804 1 72.00 mm[Hg] - Sitting 115.00 mm[Hg] - Sitting 37401 217 60595 2 38840 217 81788 4 62.00 mm[Hg] - Sitting 112.00 mm[Hg] - Sitting 20153 217 09222 3 57.00 mm[Hg] - Sitting 114.00 mm[Hg] - Sitting 98.30 Tympanic 98.00 % 78.00/ min 20.00/min 217 30667 4 62.00 mm[Hg] - Lying Down 111.00 mm[Hg] - Lying Down 26912 218 94331 0 70.00 mm[Hg] - Sitting 158.00 mm[Hg] - Sitting 97.60 Tympanic 97.00 % 68.00/ min 18.00/min 27693 218 96440 5 65.00 mm[Hg] - Lying Down 113.00 mm[Hg] - Lying Down 11343 219 98961 1 67.00 mm[Hg] - Sitting 112.00 mm[Hg] - Sitting 70053 220 76853 0 82.00 mm[Hg] - Sitting 160.00 mm[Hg] - Sitting 97.90 Forehead Scan 95.00 % 87.00/ min 16.00/min 27166 220 60587 7 69.00 mm[Hg] - Sitting 119.00 mm[Hg] - Sitting 75932 221 46236 1 82.00 mm[Hg] - Sitting 156.00 mm[Hg] - Sitting 98.20 Tympanic 95.00 % 72.00/ min 18.00/min 45513 221 87882 1 78.00 mm[Hg] - Sitting 148.00 mm[Hg] - Sitting 47030 222 78796 0 81.00 mm[Hg] - Sitting 161.00 mm[Hg] - Sitting 97.70 Tympanic 94.00 % 80.00/ min 18.00/min 222 17229 3 87.00 mm[Hg] - Sitting 141.00 mm[Hg] - Sitting 223 46631 9 68.00 mm[Hg] - Sitting 138.00 mm[Hg] - Sitting 98.10 Tympanic 92.00 % 85.00/ min 18.00/min 223 80853 4 67.00 mm[Hg] - Sitting 128.00 mm[Hg] - Sitting 224 71768 6 224 94462 5 73.00 mm[Hg] - Lying Down 151.00 mm[Hg] - Lying Down 98.40 Tympanic 95.00 % 75.00/ min 18.00/min 224 17478 3 63.00 mm[Hg] - Sitting 124.00 mm[Hg] - Sitting 225 73590 1 97.30 Tympanic 95.00 % 72.00/ min 20.00/min 225 52539 6 67.00 mm[Hg] - Sitting 132.00 mm[Hg] - Sitting 226 86411 2 67.00 mm[Hg] - Sitting 121.00 mm[Hg] - Sitting 227 99860 0 70.00 mm[Hg] - Sitting 137.00 mm[Hg] - Sitting 98.70 Forehead Scan 96.00 % 70.00/ min 16.00/min 227 07250 6 69.00 mm[Hg] - Sitting 131.00 mm[Hg] - Sitting 228 27200 7 79.00 mm[Hg] - Lying Down 181.00 mm[Hg] - Lying Down 98.40 Tympanic 98.00 % 75.00/ min 20.00/min 14342 228 67921 1 68.00 mm[Hg] - Lying Down 130.00 mm[Hg] - Lying Down 229 98657 6 80.00 mm[Hg] - Lying Down 183.00 mm[Hg] - Lying Down 98.60 Tympanic 97.00 % 75.00/ min 16.00/min 229 90642 4 74.00 mm[Hg] - Lying Down 161.00 mm[Hg] - Lying Down 77.00/ min 53359 229 01406 9 87.00 mm[Hg] - Sitting 175.00 mm[Hg] - Sitting 11950 230 93070 7 83.00 mm[Hg] - Sitting 186.00 mm[Hg] - Sitting 98.30 Tympanic 94.00 % 86.00/ min 18.00/min 03173 230 98473 6 70.00 mm[Hg] - Sitting 125.00 mm[Hg] - Sitting 97574 231 71431 8 30329 231 04549 4 77.00 mm[Hg] - Sitting 159.00 mm[Hg] - Sitting 98.70 Tympanic 95.00 % 78.00/ min 18.00/min 72377 231 56449 8 77.00 mm[Hg] - Sitting 139.00 mm[Hg] - Sitting 25363 101 14158 3 98.40 Tympanic 95.00 % 85.00/ min 20.00/min 47561 101 97444 5 107.00 NI 98.40 Tympanic 86.00/ min 20.00/min 76075 101 21493 2 72.00 mm[Hg] - Sitting 136.00 mm[Hg] - Sitting
--- OUTSIDE RECORDS SUMMARY | 2024-04-10 03:15 | External Medical Summary | Continuity Of Care Document ---
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 unit/0.1 mL intradermal injection solution [Tuberculin PPD] 0.1mL Intradermal 1 time For PPD 2nd Step Give 2nd Step PPD Day 1 and Read results Day 3 (schedule 7 days after 1st READ) 0.1mL 02/07 Inactiv e 2023 13236 96961 0 1 time Intrad ermal False Oxycodone 5 mg tablet [generic] 5mg By Mouth Every 4 hours as needed for severe pain for pain rate 7-10. For right pubis fracture 5mg 01/27 Inactiv e 2023 60474 42194 1 Every 4 hours as needed By Mouth False OXYCODONE 5 MG TABLET [GENERIC]IM MEDIATE RELEASE 2.5mg By Mouth Every 4 hours as needed tablet po for moderate pain, pain rate 4-6 on pain scale 1-10. For pain 2.5mg 01/27 Inactiv e 2023 Every 4 hours as needed By Mouth False Oxycodone 5 mg tablet [generic] 01/27 Inactiv e 2023 04205 63604 1 Oxycodone 5 mg tablet [generic] 5mg By Mouth Every 4 hours as needed for severe pain for pain rate 7-10. For right pubis fracture 5mg 01/29 Inactiv e 2023 20666 94072 1 Every 4 hours as needed By [...] For Muscle spasms 175mg 2023 Active 2023 62361 65751 1 Every 6 hours as needed By Mouth False Cephalexin 500 mg capsule [generic] 500mg By Mouth Every 8 hours For UTI 500mg 01/30 Inactiv e 2023 74415 27645 1 Every 8 hours By Mouth False Aspirin 81 mg chewable tablet [generic] 81 mg By Mouth Once daily For AAA 81 mg 2023 Active 2023 41077 00801 6 Once daily By Mouth False Colace 100 mg capsule 100mg By Mouth Twice daily For constipation 100mg 2023 Active 2023 67286 07479 1 Twice daily By Mouth False Enoxaparin 300 mg/3 mL subcutaneou s solution [generic] 20mg Subcutaneous Once daily For anticoag. 20mg 02/06 Inactiv e 2023 31265 86534 1 Once daily Subcut aneous False Losartan 50 mg tablet [generic] 50 By Mouth Once daily For HTN 50 02/16 Inactiv e 2023 90955 19789 9 Once daily By Mouth False Miralax 17 gram/dose oral powder 17 gram By Mouth Once daily For contispation 17 gram 2023 Active 2023 37289 28646 0 Once daily By Mouth False Senna 8.6 mg tablet 2 tabs By Mouth Once daily For constipation 2 tabs 2023 Active 2023 90023 41769 1 Once daily By Mouth False Simvastatin 20 mg tablet [generic] 20 mg By Mouth Once daily For Hyperlipidemi a 20 mg 2023 Active 2023 12194 58027 0 Once daily By Mouth False Spiriva with HandiHaler 18 mcg and inhalation capsules 1 capsule Inhalation Once daily For COPD 1 capsule 2023 Active 2023 63408 25171 1 Once daily Inhala tion False Ventolin HFA 90 mcg/actuati on aerosol inhaler 2 puff Inhalation Every 4 hours as needed For COPD 2 puff 2023 Active 2023 21220 25678 0 Every 4 hours as needed Inhala tion False ProSource No Carb 15 gram-60 kcal/30 mL oral liquid 30ml By Mouth Twice daily For Protien supplement 30ml 01/30 Inactiv e 2023 59764 13579 5 Twice daily By Mouth False Albuterol sulfate 2.5 mg/3 mL (0.083 %) solution for nebulizatio n [generic] 3 ml Inhalation Every 6 hours as needed For wheezing 3 ml 2023 Active 2023 38295 81394 3 Every 6 hours as needed Inhala tion False Acetaminoph en 325 mg tablet [generic] 650 mg By Mouth Every 6 hours For Mild Pain 650 mg 01/29 Inactiv e 2023 43374 23746 0 Every 6 hours By Mouth False Tylenol 325 mg tablet 2 tabs By Mouth Every 4 hours as needed For Pain DO NOT EXCEED 3000 MG APAP/24 Hours 2 tabs 2023 Active 2023 69153 91977 0 Every 4 hours as needed By Mouth False Tylenol 325 mg tablet 2 tabs By Mouth Every 4 hours as needed For Fever >100 DO NOT EXCEED 3000 MG APAP/24 Hours 2 tabs 2023 Active 2023 61937 04993 0 Every 4 hours as needed By Mouth False Dulcolax (bisacodyl) 10 mg rectal suppository One Suppository per rectum PRN if Milk of Magnisia ineffective. Give on day 5 of no BM 1 sup 2023 Active 2023 52649 36362 1 Daily as needed Rectal False Fleet Enema 19 gram-7 gram/118 mL Administer per rectum PRN one time if dulcolax suppository not effective. Give on day 6 of no BM 1 2023 Active 2023 34250 48363 6 Daily as needed Rectal False Milk of Magnesia 400 mg/5 mL oral suspension [Magnesium hydroxide] PRN 30ml By Mouth Daily as needed for constipation one time daily if no BM, on day 4 of no BM (PRN refer to instructions) For Constipation 30 mL 2023 Active 2023 07217 42214 6 Daily as needed By Mouth False Oxycodone 5 mg tablet [generic] 01/29 Inactiv e 2023 94541 17623 1 Oxycodone 5 mg tablet [generic] 5mg By Mouth Every 4 hours as needed for severe pain for pain rate 7-10. For right pubis fracture 5mg 01/31 Inactiv e 2023 39987 89187 1 Every 4 hours as needed By Mouth False Cymbalta 30 mg capsule,del ayed release 30 mg By Mouth Once daily For Depression 30 mg 02/04 Inactiv e 2023 13905 22705 0 Once daily By Mouth False Acetaminoph en 500 mg tablet [generic] 1000 mg By Mouth Twice daily not to exceed 3gm APAP in 24 hours For Pain 1000 mg 2023 Active 2023 74613 94968 8 Twice daily By Mouth False Healthshake 118 ml BID 118 ml By Mouth Twice daily Healthshake 118 ml BID For MNA of 7 - malnourished - please record total ml consumed 118 ml 2023 Active 2023 Twice daily By Mouth False Oxycodone 5 mg tablet [generic] 01/31 Inactiv e 2023 35943 80974 1 Oxycodone 5 mg tablet [generic] 5mg By Mouth Every 4 hours as needed for severe pain for pain rate 7-10. For right pubis fracture 5mg 02/01 Inactiv e 2023 47036 19917 1 Every 4 hours as needed By Mouth False Oxycodone 5 mg tablet [generic] 5mg By Mouth Every 4 hours as needed for severe pain 7-10 For right pubis fx 5mg 2023 Active 2023 64702 87514 1 Every 4 hours as needed By Mouth False Cymbalta 60 mg capsule,del ayed release 60mg Once daily depression 60mg 2023 Active 2023 01255 27866 0 Once daily By Mouth False Enoxaparin 40 mg/0.4 mL subcutaneou s syringe [generic] 20mg Subcutaneous Once daily For anticoag 20mg 2023 Active 2023 22476 19814 0 Once daily Subcut aneous False Losartan 50 mg tablet [generic] 75 mg By Mouth Once daily For ESSENTIAL (PRIMARY) HYPERTENSION 75 mg 02/17 Inactiv e 2023 05915 85859 9 Once daily By Mouth I10. False Losartan 50 mg tablet [generic] 75 mg By Mouth ( 1.5 TABS) Once daily For ESSENTIAL (PRIMARY) HYPERTENSION 75 mg 2023 Active 2023 35167 42070 9 Once daily By Mouth I10. False Problems Code Description Start Date End [...] Temperature SpO2 Blood Sugar Pulse Respirations 210 13386 7 78.00 mm[Hg] - Lying Down 186.00 mm[Hg] - Lying Down 109.80 NI 97.90 Forehead Scan 91.00 % 92.00/ min 18.00/min 210 92686 1 74.00 mm[Hg] - Lying Down 147.00 mm[Hg] - Lying Down 85.00/ min 211 42367 2 72.00 mm[Hg] - Sitting 138.00 mm[Hg] - Sitting 98.40 Tympanic 86.00/ min 18.00/min 211 89189 2 59.00 mm[Hg] - Sitting 117.00 mm[Hg] - Sitting 98.20 Tympanic 99.00 % 81.00/ min 18.00/min 211 54148 5 69.00 mm[Hg] - Sitting 145.00 mm[Hg] - Sitting 211 69750 9 69.00 mm[Hg] - Sitting 145.00 mm[Hg] - Sitting 27915 211 29093 5 69.00 mm[Hg] - Sitting 145.00 mm[Hg] - Sitting 98994 211 74296 6 69.00 mm[Hg] - Sitting 57997 212 82936 7 59.00 mm[Hg] - Sitting 117.00 mm[Hg] - Sitting 98.20 Tympanic 81.00/ min 18.00/min 18134 212 03939 9 97.80 Tympanic 21957 212 89265 6 55.00 mm[Hg] - Sitting 109.00 mm[Hg] - Sitting 97.30 Tympanic 94.00 % 75.00/ min 18.00/min 05330 212 92192 5 68.00 mm[Hg] - Sitting 128.00 mm[Hg] - Sitting 97.80 Tympanic 80.00/ min 18.00/min 72825 212 07916 4 97.50 Tympanic 89681 212 57316 9 70868 212 81110 6 71.00 mm[Hg] - Sitting 117.00 mm[Hg] - Sitting 41762 213 73707 0 60.00 mm[Hg] - Sitting 116.00 mm[Hg] - Sitting 98.40 Forehead Scan 94.00 % 72.00/ min 16.00/min 40587 213 42994 7 70.00 mm[Hg] - Sitting 118.00 mm[Hg] - Sitting 98.00 Tympanic 82.00/ min 18.00/min 74811 213 92075 3 97.90 Tympanic 32960 213 13355 5 73.00 mm[Hg] - Lying Down 127.00 mm[Hg] - Lying Down 38085 213 18589 3 69381 214 21399 1 62.00 mm[Hg] - Sitting 127.00 mm[Hg] - Sitting 97.80 Tympanic 94.00 % 72.00/ min 16.00/min 85376 214 81332 4 59.00 mm[Hg] - Lying Down 113.00 mm[Hg] - Lying Down 97950 215 02734 0 56.00 mm[Hg] - Sitting 101.00 mm[Hg] - Sitting 97.80 Tympanic 95.00 % 71.00/ min 16.00/min 57804 215 74660 5 62 NI 14668 215 31143 8 57.00 mm[Hg] - Lying Down 113.00 mm[Hg] - Lying Down 04740 216 08825 3 71.00 mm[Hg] - Sitting 161.00 mm[Hg] - Sitting 98.10 Tympanic 93.00 % 81.00/ min 16.00/min 216 75203 1 72.00 mm[Hg] - Sitting 115.00 mm[Hg] - Sitting 43849 217 01531 2 217 87905 4 62.00 mm[Hg] - Sitting 112.00 mm[Hg] - Sitting 71949 217 11788 3 57.00 mm[Hg] - Sitting 114.00 mm[Hg] - Sitting 98.30 Tympanic 98.00 % 78.00/ min 20.00/min 217 64867 4 62.00 mm[Hg] - Lying Down 111.00 mm[Hg] - Lying Down 77184 218 01969 0 70.00 mm[Hg] - Sitting 158.00 mm[Hg] - Sitting 97.60 Tympanic 97.00 % 68.00/ min 18.00/min 218 39260 5 65.00 mm[Hg] - Lying Down 113.00 mm[Hg] - Lying Down 17193 219 21644 1 67.00 mm[Hg] - Sitting 112.00 mm[Hg] - Sitting 220 99566 0 82.00 mm[Hg] - Sitting 160.00 mm[Hg] - Sitting 97.90 Forehead Scan 95.00 % 87.00/ min 16.00/min 220 37547 7 69.00 mm[Hg] - Sitting 119.00 mm[Hg] - Sitting 47551 221 93022 1 82.00 mm[Hg] - Sitting 156.00 mm[Hg] - Sitting 98.20 Tympanic 95.00 % 72.00/ min 18.00/min 221 68321 1 78.00 mm[Hg] - Sitting 148.00 mm[Hg] - Sitting 18996 222 02154 0 81.00 mm[Hg] - Sitting 161.00 mm[Hg] - Sitting 97.70 Tympanic 94.00 % 80.00/ min 18.00/min 12629 222 64969 3 87.00 mm[Hg] - Sitting 141.00 mm[Hg] - Sitting 39108 223 18816 9 68.00 mm[Hg] - Sitting 138.00 mm[Hg] - Sitting 98.10 Tympanic 92.00 % 85.00/ min 18.00/min 223 56270 4 67.00 mm[Hg] - Sitting 128.00 mm[Hg] - Sitting 58306 224 85266 6 37170 224 99285 5 73.00 mm[Hg] - Lying Down 151.00 mm[Hg] - Lying Down 98.40 Tympanic 95.00 % 75.00/ min 18.00/min 99410 224 57574 3 63.00 mm[Hg] - Sitting 124.00 mm[Hg] - Sitting 28323 225 82823 1 97.30 Tympanic 95.00 % 72.00/ min 20.00/min 225 95613 6 67.00 mm[Hg] - Sitting 132.00 mm[Hg] - Sitting 88676 226 33013 2 67.00 mm[Hg] - Sitting 121.00 mm[Hg] - Sitting 227 12271 0 70.00 mm[Hg] - Sitting 137.00 mm[Hg] - Sitting 98.70 Forehead Scan 96.00 % 70.00/ min 16.00/min 99859 227 30461 6 69.00 mm[Hg] - Sitting 131.00 mm[Hg] - Sitting 22710 228 23052 7 79.00 mm[Hg] - Lying Down 181.00 mm[Hg] - Lying Down 98.40 Tympanic 98.00 % 75.00/ min 20.00/min 228 00788 1 68.00 mm[Hg] - Lying Down 130.00 mm[Hg] - Lying Down 66806 229 55729 6 80.00 mm[Hg] - Lying Down 183.00 mm[Hg] - Lying Down 98.60 Tympanic 97.00 % 75.00/ min 16.00/min 02253 229 55147 4 74.00 mm[Hg] - Lying Down 161.00 mm[Hg] - Lying Down 77.00/ min 18778 229 06329 9 87.00 mm[Hg] - Sitting 175.00 mm[Hg] - Sitting 83048 230 03325 7 83.00 mm[Hg] - Sitting 186.00 mm[Hg] - Sitting 98.30 Tympanic 94.00 % 86.00/ min 18.00/min 31017 230 91109 6 70.00 mm[Hg] - Sitting 125.00 mm[Hg] - Sitting
--- OUTSIDE RECORDS SUMMARY | 2024-04-10 03:15 | External Medical Summary | Continuity Of Care Document ---
Author Name Unknown Address [address] [address] Organization [facility] () Care Team Providers Care Physician Obstetrician Name Role Phone DO Alonso Amy Primary Care Provider [phone] Allergies Allergy Reaction Start Date End Date [...] 3 0.1 mL 01/29 Inactiv e 2023 35132 12509 0 1 time Intrad ermal False Tubersol 5 tub. unit/0.1 mL intradermal injection solution [Tuberculin PPD] 0.1mL Intradermal 1 time For PPD 2nd Step Give 2nd Step PPD Day 1 and Read results Day 3 (schedule 7 days after 1st READ) 0.1mL 02/07 Inactiv e 2023 49922 87645 0 1 time Intrad ermal False Oxycodone 5 mg tablet [generic] 5mg By Mouth Every 4 hours as needed for severe pain for pain rate 7-10. For right pubis fracture 5mg 01/27 Inactiv e 2023 00667 12972 1 Every 4 hours as needed By Mouth False OXYCODONE 5 MG TABLET [GENERIC]IM MEDIATE RELEASE 2.5mg By Mouth Every 4 hours as needed tablet po for moderate pain, pain rate 4-6 on pain scale 1-10. For pain 2.5mg 01/27 Inactiv e 2023 Every 4 hours as needed By Mouth False Oxycodone 5 mg tablet [generic] 01/27 Inactiv e 2023 75489 45927 1 Oxycodone 5 mg tablet [generic] 5mg By Mouth Every 4 hours as needed for severe pain for pain rate 7-10. For right pubis fracture 5mg 01/29 Inactiv e 2023 47696 94369 1 Every 4 hours as needed By [...] For Muscle spasms 175mg 2023 Active 2023 50972 97802 1 Every 6 hours as needed By Mouth False Cephalexin 500 mg capsule [generic] 500mg By Mouth Every 8 hours For UTI 500mg 01/30 Inactiv e 2023 64418 10279 1 Every 8 hours By Mouth False Aspirin 81 mg chewable tablet [generic] 81 mg By Mouth Once daily For AAA 81 mg 2023 Active 2023 53605 05868 6 Once daily By Mouth False Colace 100 mg capsule 100mg By Mouth Twice daily For constipation 100mg 2023 Active 2023 78258 14045 1 Twice daily By Mouth False Enoxaparin 300 mg/3 mL subcutaneou s solution [generic] 20mg Subcutaneous Once daily For anticoag. 20mg 02/06 Inactiv e 2023 98853 60472 1 Once daily Subcut aneous False Losartan 50 mg tablet [generic] 50 By Mouth Once daily For HTN 50 02/16 Inactiv e 2023 25251 97959 9 Once daily By Mouth False Miralax 17 gram/dose oral powder 17 gram By Mouth Once daily For contispation 17 gram 2023 Active 2023 38620 59910 0 Once daily By Mouth False Senna 8.6 mg tablet 2 tabs By Mouth Once daily For constipation 2 tabs 2023 Active 2023 41462 32034 1 Once daily By Mouth False Simvastatin 20 mg tablet [generic] 20 mg By Mouth Once daily For Hyperlipidemi a 20 mg 2023 Active 2023 19819 08947 0 Once daily By Mouth False Spiriva with HandiHaler 18 mcg and inhalation capsules 1 capsule Inhalation Once daily For COPD 1 capsule 2023 Active 2023 92614 49866 1 Once daily Inhala tion False Ventolin HFA 90 mcg/actuati on aerosol inhaler 2 puff Inhalation Every 4 hours as needed For COPD 2 puff 2023 Active 2023 27982 20805 0 Every 4 hours as needed Inhala tion False ProSource No Carb 15 gram-60 kcal/30 mL oral liquid 30ml By Mouth Twice daily For Protien supplement 30ml 01/30 Inactiv e 2023 33656 63215 5 Twice daily By Mouth False Albuterol sulfate 2.5 mg/3 mL (0.083 %) solution for nebulizatio n [generic] 3 ml Inhalation Every 6 hours as needed For wheezing 3 ml 2023 Active 2023 45380 89353 3 Every 6 hours as needed Inhala tion False Acetaminoph en 325 mg tablet [generic] 650 mg By Mouth Every 6 hours For Mild Pain 650 mg 01/29 Inactiv e 2023 87398 93535 0 Every 6 hours By Mouth False Tylenol 325 mg tablet 2 tabs By Mouth Every 4 hours as needed For Pain DO NOT EXCEED 3000 MG APAP/24 Hours 2 tabs 2023 Active 2023 46456 48890 0 Every 4 hours as needed By Mouth False Tylenol 325 mg tablet 2 tabs By Mouth Every 4 hours as needed For Fever >100 DO NOT EXCEED 3000 MG APAP/24 Hours 2 tabs 2023 Active 2023 90646 87739 0 Every 4 hours as needed By Mouth False Dulcolax (bisacodyl) 10 mg rectal suppository One Suppository per rectum PRN if Milk of Magnisia ineffective. Give on day 5 of no BM 1 sup 2023 Active 2023 54781 30931 1 Daily as needed Rectal False Fleet Enema 19 gram-7 gram/118 mL Administer per rectum PRN one time if dulcolax suppository not effective. Give on day 6 of no BM 1 2023 Active 2023 31028 56587 6 Daily as needed Rectal False Milk of Magnesia 400 mg/5 mL oral suspension [Magnesium hydroxide] PRN 30ml By Mouth Daily as needed for constipation one time daily if no BM, on day 4 of no BM (PRN refer to instructions) For Constipation 30 mL 2023 Active 2023 22969 12213 6 Daily as needed By Mouth False Oxycodone 5 mg tablet [generic] 01/29 Inactiv e 2023 93927 85665 1 Oxycodone 5 mg tablet [generic] 5mg By Mouth Every 4 hours as needed for severe pain for pain rate 7-10. For right pubis fracture 5mg 01/31 Inactiv e 2023 01973 73867 1 Every 4 hours as needed By Mouth False Cymbalta 30 mg capsule,del ayed release 30 mg By Mouth Once daily For Depression 30 mg 02/04 Inactiv e 2023 07439 00140 0 Once daily By Mouth False Acetaminoph en 500 mg tablet [generic] 1000 mg By Mouth Twice daily not to exceed 3gm APAP in 24 hours For Pain 1000 mg 2023 Active 2023 50619 31759 8 Twice daily By Mouth False Healthshake 118 ml BID 118 ml By Mouth Twice daily Healthshake 118 ml BID For MNA of 7 - malnourished - please record total ml consumed 118 ml 2023 Active 2023 Twice daily By Mouth False Oxycodone 5 mg tablet [generic] 01/31 Inactiv e 2023 72619 28038 1 Oxycodone 5 mg tablet [generic] 5mg By Mouth Every 4 hours as needed for severe pain for pain rate 7-10. For right pubis fracture 5mg 02/01 Inactiv e 2023 26037 78819 1 Every 4 hours as needed By Mouth False Oxycodone 5 mg tablet [generic] 5mg By Mouth Every 4 hours as needed for severe pain 7-10 For right pubis fx 5mg 2023 Active 2023 11404 17322 1 Every 4 hours as needed By Mouth False Cymbalta 60 mg capsule,del ayed release 60mg Once daily depression 60mg 2023 Active 2023 39610 56611 0 Once daily By Mouth False Enoxaparin 40 mg/0.4 mL subcutaneou s syringe [generic] 20mg Subcutaneous Once daily For anticoag 20mg 2023 Active 2023 92003 60016 0 Once daily Subcut aneous False Losartan 50 mg tablet [generic] 75 mg By Mouth Once daily For ESSENTIAL (PRIMARY) HYPERTENSION 75 mg 02/17 Inactiv e 2023 68083 28253 9 Once daily By Mouth I10. False Losartan 50 mg tablet [generic] 75 mg By Mouth ( 1.5 TABS) Once daily For ESSENTIAL (PRIMARY) HYPERTENSION 75 mg 2023 Active 2023 63652 33579 9 Once daily By Mouth I10. False [...] Temperature SpO2 Blood Sugar Pulse Respirations 210 64098 7 78.00 mm[Hg] - Lying Down 186.00 mm[Hg] - Lying Down 109.80 NI 97.90 Forehead Scan 91.00 % 92.00/ min 18.00/min 210 94799 1 74.00 mm[Hg] - Lying Down 147.00 mm[Hg] - Lying Down 85.00/ min 211 69077 2 72.00 mm[Hg] - Sitting 138.00 mm[Hg] - Sitting 98.40 Tympanic 86.00/ min 18.00/min 211 94155 2 59.00 mm[Hg] - Sitting 117.00 mm[Hg] - Sitting 98.20 Tympanic 99.00 % 81.00/ min 18.00/min 211 47805 5 69.00 mm[Hg] - Sitting 145.00 mm[Hg] - Sitting 211 20106 9 69.00 mm[Hg] - Sitting 145.00 mm[Hg] - Sitting 05612 211 27389 5 69.00 mm[Hg] - Sitting 145.00 mm[Hg] - Sitting 70014 211 81542 6 69.00 mm[Hg] - Sitting 05659 212 06720 7 59.00 mm[Hg] - Sitting 117.00 mm[Hg] - Sitting 98.20 Tympanic 81.00/ min 18.00/min 02856 212 41823 9 97.80 Tympanic 35266 212 04933 6 55.00 mm[Hg] - Sitting 109.00 mm[Hg] - Sitting 97.30 Tympanic 94.00 % 75.00/ min 18.00/min 80263 212 07909 5 68.00 mm[Hg] - Sitting 128.00 mm[Hg] - Sitting 97.80 Tympanic 80.00/ min 18.00/min 36429 212 42931 4 97.50 Tympanic 84698 212 52899 9 14405 212 30515 6 71.00 mm[Hg] - Sitting 117.00 mm[Hg] - Sitting 72205 213 92937 0 60.00 mm[Hg] - Sitting 116.00 mm[Hg] - Sitting 98.40 Forehead Scan 94.00 % 72.00/ min 16.00/min 89373 213 67135 7 70.00 mm[Hg] - Sitting 118.00 mm[Hg] - Sitting 98.00 Tympanic 82.00/ min 18.00/min 17976 213 11503 3 97.90 Tympanic 03271 213 90816 5 73.00 mm[Hg] - Lying Down 127.00 mm[Hg] - Lying Down 43073 213 78208 3 23156 214 52377 1 62.00 mm[Hg] - Sitting 127.00 mm[Hg] - Sitting 97.80 Tympanic 94.00 % 72.00/ min 16.00/min 87969 214 05163 4 59.00 mm[Hg] - Lying Down 113.00 mm[Hg] - Lying Down 84785 215 95852 0 56.00 mm[Hg] - Sitting 101.00 mm[Hg] - Sitting 97.80 Tympanic 95.00 % 71.00/ min 16.00/min 42781 215 52163 5 62 NI [address] 215 50945 8 57.00 mm[Hg] - Lying Down 113.00 mm[Hg] - Lying Down 87234 216 54006 3 71.00 mm[Hg] - Sitting 161.00 mm[Hg] - Sitting 98.10 Tympanic 93.00 % 81.00/ min 16.00/min 216 20641 1 72.00 mm[Hg] - Sitting 115.00 mm[Hg] - Sitting 07243 217 14065 2 217 15582 4 62.00 mm[Hg] - Sitting 112.00 mm[Hg] - Sitting 31836 217 87218 3 57.00 mm[Hg] - Sitting 114.00 mm[Hg] - Sitting 98.30 Tympanic 98.00 % 78.00/ min 20.00/min 217 74007 4 62.00 mm[Hg] - Lying Down 111.00 mm[Hg] - Lying Down 21916 218 49756 0 70.00 mm[Hg] - Sitting 158.00 mm[Hg] - Sitting 97.60 Tympanic 97.00 % 68.00/ min 18.00/min 218 34987 5 65.00 mm[Hg] - Lying Down 113.00 mm[Hg] - Lying Down 28740 219 53549 1 67.00 mm[Hg] - Sitting 112.00 mm[Hg] - Sitting 220 21500 0 82.00 mm[Hg] - Sitting 160.00 mm[Hg] - Sitting 97.90 Forehead Scan 95.00 % 87.00/ min 16.00/min 220 47263 7 69.00 mm[Hg] - Sitting 119.00 mm[Hg] - Sitting 34768 221 94986 1 82.00 mm[Hg] - Sitting 156.00 mm[Hg] - Sitting 98.20 Tympanic 95.00 % 72.00/ min 18.00/min 221 37366 1 78.00 mm[Hg] - Sitting 148.00 mm[Hg] - Sitting 29930 222 99436 0 81.00 mm[Hg] - Sitting 161.00 mm[Hg] - Sitting 97.70 Tympanic 94.00 % 80.00/ min 18.00/min 50921 222 06937 3 87.00 mm[Hg] - Sitting 141.00 mm[Hg] - Sitting 36543 223 04980 9 68.00 mm[Hg] - Sitting 138.00 mm[Hg] - Sitting 98.10 Tympanic 92.00 % 85.00/ min 18.00/min 223 56540 4 67.00 mm[Hg] - Sitting 128.00 mm[Hg] - Sitting 37483 224 63306 6 29400 224 83552 5 73.00 mm[Hg] - Lying Down 151.00 mm[Hg] - Lying Down 98.40 Tympanic 95.00 % 75.00/ min 18.00/min 48732 224 79566 3 63.00 mm[Hg] - Sitting 124.00 mm[Hg] - Sitting 24905 225 87778 1 97.30 Tympanic 95.00 % 72.00/ min 20.00/min 225 07274 6 67.00 mm[Hg] - Sitting 132.00 mm[Hg] - Sitting 28859 226 93460 2 67.00 mm[Hg] - Sitting 121.00 mm[Hg] - Sitting 227 02720 0 70.00 mm[Hg] - Sitting 137.00 mm[Hg] - Sitting 98.70 Forehead Scan 96.00 % 70.00/ min 16.00/min 88795 227 83479 6 69.00 mm[Hg] - Sitting 131.00 mm[Hg] - Sitting 31445 228 19725 7 79.00 mm[Hg] - Lying Down 181.00 mm[Hg] - Lying Down 98.40 Tympanic 98.00 % 75.00/ min 20.00/min 228 77773 1 68.00 mm[Hg] - Lying Down 130.00 mm[Hg] - Lying Down 77293 229 28708 6 80.00 mm[Hg] - Lying Down 183.00 mm[Hg] - Lying Down 98.60 Tympanic 97.00 % 75.00/ min 16.00/min 64081 229 92513 4 74.00 mm[Hg] - Lying Down 161.00 mm[Hg] - Lying Down 77.00/ min 34644 229 15500 9 87.00 mm[Hg] - Sitting 175.00 mm[Hg] - Sitting 64148 230 97119 7 83.00 mm[Hg] - Sitting 186.00 mm[Hg] - Sitting 98.30 Tympanic 94.00 % 86.00/ min 18.00/min 32710 230 02665 6 70.00 mm[Hg] - Sitting 125.00 mm[Hg] - Sitting 40161 231 23172 8
--- OUTSIDE RECORDS SUMMARY | 2024-04-10 03:15 | External Medical Summary | Continuity Of Care Document ---
Author Name Unknown Address [address] [address] Organization [facility] () Care Team Providers Care Chief Information Officer Name Role Phone DO Alonso Amy Primary Care Provider [phone] Allergies Allergy Reaction Start Date End Date [...] 3 0.1 mL 01/29 Inactiv e 2023 06831 89783 0 1 time Intrad ermal False Tubersol 5 tub. unit/0.1 mL intradermal injection solution [Tuberculin PPD] 0.1mL Intradermal 1 time For PPD 2nd Step Give 2nd Step PPD Day 1 and Read results Day 3 (schedule 7 days after 1st READ) 0.1mL 02/07 Inactiv e 2023 60008 67697 0 1 time Intrad ermal False Oxycodone 5 mg tablet [generic] 5mg By Mouth Every 4 hours as needed for severe pain for pain rate 7-10. For right pubis fracture 5mg 01/27 Inactiv e 2023 76395 82047 1 Every 4 hours as needed By Mouth False OXYCODONE 5 MG TABLET [GENERIC]IM MEDIATE RELEASE 2.5mg By Mouth Every 4 hours as needed tablet po for moderate pain, pain rate 4-6 on pain scale 1-10. For pain 2.5mg 01/27 Inactiv e 2023 Every 4 hours as needed By Mouth False Oxycodone 5 mg tablet [generic] 01/27 Inactiv e 2023 60763 93105 1 Oxycodone 5 mg tablet [generic] 5mg By Mouth Every 4 hours as needed for severe pain for pain rate 7-10. For right pubis fracture 5mg 01/29 Inactiv e 2023 22238 73176 1 Every 4 hours as needed By [...] For Muscle spasms 175mg 2023 Active 2023 16094 61987 1 Every 6 hours as needed By Mouth False Cephalexin 500 mg capsule [generic] 500mg By Mouth Every 8 hours For UTI 500mg 01/30 Inactiv e 2023 10636 39977 1 Every 8 hours By Mouth False Aspirin 81 mg chewable tablet [generic] 81 mg By Mouth Once daily For AAA 81 mg 2023 Active 2023 31580 25415 6 Once daily By Mouth False Colace 100 mg capsule 100mg By Mouth Twice daily For constipation 100mg 2023 Active 2023 28525 11309 1 Twice daily By Mouth False Enoxaparin 300 mg/3 mL subcutaneou s solution [generic] 20mg Subcutaneous Once daily For anticoag. 20mg 02/06 Inactiv e 2023 61522 06591 1 Once daily Subcut aneous False Losartan 50 mg tablet [generic] 50 By Mouth Once daily For HTN 50 02/16 Inactiv e 2023 50355 87515 9 Once daily By Mouth False Miralax 17 gram/dose oral powder 17 gram By Mouth Once daily For contispation 17 gram 02/17 Inactiv e 2023 71239 16540 0 Once daily By Mouth False Senna 8.6 mg tablet 2 tabs By Mouth Once daily For constipation 2 tabs 02/17 Inactiv e 2023 66781 46501 1 Once daily By Mouth False Simvastatin 20 mg tablet [generic] 20 mg By Mouth Once daily For Hyperlipidemi a 20 mg 2023 Active 2023 43208 56391 0 Once daily By Mouth False Spiriva with HandiHaler 18 mcg and inhalation capsules 1 capsule Inhalation Once daily For COPD 1 capsule 2023 Active 2023 02518 84285 1 Once daily Inhala tion False Ventolin HFA 90 mcg/actuati on aerosol inhaler 2 puff Inhalation Every 4 hours as needed For COPD 2 puff 2023 Active 2023 08405 92648 0 Every 4 hours as needed Inhala tion False ProSource No Carb 15 gram-60 kcal/30 mL oral liquid 30ml By Mouth Twice daily For Protien supplement 30ml 01/30 Inactiv e 2023 82565 03853 5 Twice daily By Mouth False Albuterol sulfate 2.5 mg/3 mL (0.083 %) solution for nebulizatio n [generic] 3 ml Inhalation Every 6 hours as needed For wheezing 3 ml 2023 Active 2023 01984 45919 3 Every 6 hours as needed Inhala tion False Acetaminoph en 325 mg tablet [generic] 650 mg By Mouth Every 6 hours For Mild Pain 650 mg 01/29 Inactiv e 2023 25388 65751 0 Every 6 hours By Mouth False Tylenol 325 mg tablet 2 tabs By Mouth Every 4 hours as needed For Pain DO NOT EXCEED 3000 MG APAP/24 Hours 2 tabs 2023 Active 2023 00412 74904 0 Every 4 hours as needed By Mouth False Tylenol 325 mg tablet 2 tabs By Mouth Every 4 hours as needed For Fever >100 DO NOT EXCEED 3000 MG APAP/24 Hours 2 tabs 2023 Active 2023 34866 91069 0 Every 4 hours as needed By Mouth False Dulcolax (bisacodyl) 10 mg rectal suppository One Suppository per rectum PRN if Milk of Magnisia ineffective. Give on day 5 of no BM 1 sup 2023 Active 2023 65736 12208 1 Daily as needed Rectal False Fleet Enema 19 gram-7 gram/118 mL Administer per rectum PRN one time if dulcolax suppository not effective. Give on day 6 of no BM 1 2023 Active 2023 05835 75950 6 Daily as needed Rectal False Milk of Magnesia 400 mg/5 mL oral suspension [Magnesium hydroxide] PRN 30ml By Mouth Daily as needed for constipation one time daily if no BM, on day 4 of no BM (PRN refer to instructions) For Constipation 30 mL 2023 Active 2023 53169 48000 6 Daily as needed By Mouth False Oxycodone 5 mg tablet [generic] 01/29 Inactiv e 2023 02741 64894 1 Oxycodone 5 mg tablet [generic] 5mg By Mouth Every 4 hours as needed for severe pain for pain rate 7-10. For right pubis fracture 5mg 01/31 Inactiv e 2023 08575 58160 1 Every 4 hours as needed By Mouth False Cymbalta 30 mg capsule,del ayed release 30 mg By Mouth Once daily For Depression 30 mg 02/04 Inactiv e 2023 36980 48597 0 Once daily By Mouth False Acetaminoph en 500 mg tablet [generic] 1000 mg By Mouth Twice daily not to exceed 3gm APAP in 24 hours For Pain 1000 mg 2023 Active 2023 30547 22653 8 Twice daily By Mouth False Healthshake 118 ml BID 118 ml By Mouth Twice daily Healthshake 118 ml BID For MNA of 7 - malnourished - please record total ml consumed 118 ml 2023 Active 2023 Twice daily By Mouth False Oxycodone 5 mg tablet [generic] 01/31 Inactiv e 2023 88473 43201 1 Oxycodone 5 mg tablet [generic] 5mg By Mouth Every 4 hours as needed for severe pain for pain rate 7-10. For right pubis fracture 5mg 02/01 Inactiv e 2023 92459 67961 1 Every 4 hours as needed By Mouth False Oxycodone 5 mg tablet [generic] 5mg By Mouth Every 4 hours as needed for severe pain 7-10 For right pubis fx 5mg 2023 Active 2023 57659 02515 1 Every 4 hours as needed By Mouth False Cymbalta 60 mg capsule,del ayed release 60mg Once daily depression 60mg 2023 Active 2023 23240 37720 0 Once daily By Mouth False Enoxaparin 40 mg/0.4 mL subcutaneou s syringe [generic] 20mg Subcutaneous Once daily For anticoag 20mg 2023 Active 2023 26308 33255 0 Once daily Subcut aneous False Losartan 50 mg tablet [generic] 75 mg By Mouth Once daily For ESSENTIAL (PRIMARY) HYPERTENSION 75 mg 02/17 Inactiv e 2023 62357 13242 9 Once daily By Mouth I10. False Losartan 50 mg tablet [generic] 75 mg By Mouth ( 1.5 TABS) Once daily For ESSENTIAL (PRIMARY) HYPERTENSION 75 mg 2023 Active 2023 66380 21587 9 Once daily By Mouth I10. False Senna 8.6 mg tablet 2 tabs By Mouth Once daily As Needed For constipation 2 tabs 2023 Active 2023 34481 46175 1 Once daily By Mouth False Miralax 17 gram/dose oral powder 17 gram By Mouth As Needed For contispation 17 gram 2023 Active 2023 83470 24177 0 By Mouth False Problems Code Description [...] Temperature SpO2 Blood Sugar Pulse Respirations 210 66891 7 78.00 mm[Hg] - Lying Down 186.00 mm[Hg] - Lying Down 109.80 NI 97.90 Forehead Scan 91.00 % 92.00/ min 18.00/min 210 96684 1 74.00 mm[Hg] - Lying Down 147.00 mm[Hg] - Lying Down 85.00/ min 211 16864 2 72.00 mm[Hg] - Sitting 138.00 mm[Hg] - Sitting 98.40 Tympanic 86.00/ min 18.00/min 68622 211 22241 2 59.00 mm[Hg] - Sitting 117.00 mm[Hg] - Sitting 98.20 Tympanic 99.00 % 81.00/ min 18.00/min 96233 211 90477 5 69.00 mm[Hg] - Sitting 145.00 mm[Hg] - Sitting 06622 211 94145 9 69.00 mm[Hg] - Sitting 145.00 mm[Hg] - Sitting 07433 211 51023 5 69.00 mm[Hg] - Sitting 145.00 mm[Hg] - Sitting 77032 211 55069 6 69.00 mm[Hg] - Sitting 59147 212 35233 7 59.00 mm[Hg] - Sitting 117.00 mm[Hg] - Sitting 98.20 Tympanic 81.00/ min 18.00/min 70895 212 49571 9 97.80 Tympanic 31788 212 70729 6 55.00 mm[Hg] - Sitting 109.00 mm[Hg] - Sitting 97.30 Tympanic 94.00 % 75.00/ min 18.00/min 28788 212 59952 5 68.00 mm[Hg] - Sitting 128.00 mm[Hg] - Sitting 97.80 Tympanic 80.00/ min 18.00/min 59311 212 84340 4 97.50 Tympanic 57084 212 78976 9 60935 212 09847 6 71.00 mm[Hg] - Sitting 117.00 mm[Hg] - Sitting 57550 213 39080 0 60.00 mm[Hg] - Sitting 116.00 mm[Hg] - Sitting 98.40 Forehead Scan 94.00 % 72.00/ min 16.00/min 61026 213 69493 7 70.00 mm[Hg] - Sitting 118.00 mm[Hg] - Sitting 98.00 Tympanic 82.00/ min 18.00/min 79400 213 87454 3 97.90 Tympanic 71232 213 11948 5 73.00 mm[Hg] - Lying Down 127.00 mm[Hg] - Lying Down 98110 213 63633 3 58969 214 60405 1 62.00 mm[Hg] - Sitting 127.00 mm[Hg] - Sitting 97.80 Tympanic 94.00 % 72.00/ min 16.00/min 05113 214 89284 4 59.00 mm[Hg] - Lying Down 113.00 mm[Hg] - Lying Down 29043 215 21777 0 56.00 mm[Hg] - Sitting 101.00 mm[Hg] - Sitting 97.80 Tympanic 95.00 % 71.00/ min 16.00/min 84499 215 74135 5 62 NI 89166 215 77331 8 57.00 mm[Hg] - Lying Down 113.00 mm[Hg] - Lying Down 38209 216 51746 3 71.00 mm[Hg] - Sitting 161.00 mm[Hg] - Sitting 98.10 Tympanic 93.00 % 81.00/ min 16.00/min 216 73932 1 72.00 mm[Hg] - Sitting 115.00 mm[Hg] - Sitting 07707 217 32707 2 32749 217 48298 4 62.00 mm[Hg] - Sitting 112.00 mm[Hg] - Sitting 95934 217 84113 3 57.00 mm[Hg] - Sitting 114.00 mm[Hg] - Sitting 98.30 Tympanic 98.00 % 78.00/ min 20.00/min 217 38286 4 62.00 mm[Hg] - Lying Down 111.00 mm[Hg] - Lying Down 63827 218 52272 0 70.00 mm[Hg] - Sitting 158.00 mm[Hg] - Sitting 97.60 Tympanic 97.00 % 68.00/ min 18.00/min 30131 218 18683 5 65.00 mm[Hg] - Lying Down 113.00 mm[Hg] - Lying Down 35564 219 18402 1 67.00 mm[Hg] - Sitting 112.00 mm[Hg] - Sitting 15541 220 86696 0 82.00 mm[Hg] - Sitting 160.00 mm[Hg] - Sitting 97.90 Forehead Scan 95.00 % 87.00/ min 16.00/min 31626 220 51339 7 69.00 mm[Hg] - Sitting 119.00 mm[Hg] - Sitting 46300 221 03738 1 82.00 mm[Hg] - Sitting 156.00 mm[Hg] - Sitting 98.20 Tympanic 95.00 % 72.00/ min 18.00/min 18591 221 84584 1 78.00 mm[Hg] - Sitting 148.00 mm[Hg] - Sitting 60695 222 38020 0 81.00 mm[Hg] - Sitting 161.00 mm[Hg] - Sitting 97.70 Tympanic 94.00 % 80.00/ min 18.00/min 222 60176 3 87.00 mm[Hg] - Sitting 141.00 mm[Hg] - Sitting 223 68854 9 68.00 mm[Hg] - Sitting 138.00 mm[Hg] - Sitting 98.10 Tympanic 92.00 % 85.00/ min 18.00/min 223 90973 4 67.00 mm[Hg] - Sitting 128.00 mm[Hg] - Sitting 224 35837 6 224 88164 5 73.00 mm[Hg] - Lying Down 151.00 mm[Hg] - Lying Down 98.40 Tympanic 95.00 % 75.00/ min 18.00/min 224 95212 3 63.00 mm[Hg] - Sitting 124.00 mm[Hg] - Sitting 225 75041 1 97.30 Tympanic 95.00 % 72.00/ min 20.00/min 225 95169 6 67.00 mm[Hg] - Sitting 132.00 mm[Hg] - Sitting 226 48819 2 67.00 mm[Hg] - Sitting 121.00 mm[Hg] - Sitting 227 80393 0 70.00 mm[Hg] - Sitting 137.00 mm[Hg] - Sitting 98.70 Forehead Scan 96.00 % 70.00/ min 16.00/min 227 05042 6 69.00 mm[Hg] - Sitting 131.00 mm[Hg] - Sitting 228 91113 7 79.00 mm[Hg] - Lying Down 181.00 mm[Hg] - Lying Down 98.40 Tympanic 98.00 % 75.00/ min 20.00/min 57104 228 29837 1 68.00 mm[Hg] - Lying Down 130.00 mm[Hg] - Lying Down 229 77043 6 80.00 mm[Hg] - Lying Down 183.00 mm[Hg] - Lying Down 98.60 Tympanic 97.00 % 75.00/ min 16.00/min 229 29769 4 74.00 mm[Hg] - Lying Down 161.00 mm[Hg] - Lying Down 77.00/ min 229 78537 9 87.00 mm[Hg] - Sitting 175.00 mm[Hg] - Sitting 230 50452 7 83.00 mm[Hg] - Sitting 186.00 mm[Hg] - Sitting 98.30 Tympanic 94.00 % 86.00/ min 18.00/min 230 31157 6 70.00 mm[Hg] - Sitting 125.00 mm[Hg] - Sitting 04842 231 45662 8 231 33126 4 77.00 mm[Hg] - Sitting 159.00 mm[Hg] - Sitting 98.70 Tympanic 95.00 % 78.00/ min 18.00/min 91858 231 97576 8 77.00 mm[Hg] - Sitting 139.00 mm[Hg] - Sitting 03034 101 73373 2 72.00 mm[Hg] - Sitting 136.00 mm[Hg] - Sitting
--- OUTSIDE RECORDS SUMMARY | 2024-04-10 03:15 | External Medical Summary | Continuity Of Care Document ---
Author Name Unknown Address [address] [address] Organization [facility] () Care Team Providers Care Pediatric Pathologist Name Role Phone DO Alonso Amy Primary Care Provider [phone] Allergies Allergy Reaction Start Date End Date [...] 3 0.1 mL 01/29 Inactiv e 2023 09886 75070 0 1 time Intrad ermal False Tubersol 5 tub. unit/0.1 mL intradermal injection solution [Tuberculin PPD] 0.1mL Intradermal 1 time For PPD 2nd Step Give 2nd Step PPD Day 1 and Read results Day 3 (schedule 7 days after 1st READ) 0.1mL 02/07 Inactiv e 2023 42115 74962 0 1 time Intrad ermal False Oxycodone 5 mg tablet [generic] 5mg By Mouth Every 4 hours as needed for severe pain for pain rate 7-10. For right pubis fracture 5mg 01/27 Inactiv e 2023 74723 63913 1 Every 4 hours as needed By Mouth False OXYCODONE 5 MG TABLET [GENERIC]IM MEDIATE RELEASE 2.5mg By Mouth Every 4 hours as needed tablet po for moderate pain, pain rate 4-6 on pain scale 1-10. For pain 2.5mg 01/27 Inactiv e 2023 Every 4 hours as needed By Mouth False Oxycodone 5 mg tablet [generic] 01/27 Inactiv e 2023 40542 95461 1 Oxycodone 5 mg tablet [generic] 5mg By Mouth Every 4 hours as needed for severe pain for pain rate 7-10. For right pubis fracture 5mg 01/29 Inactiv e 2023 01353 90359 1 Every 4 hours as needed By [...] For Muscle spasms 175mg 2023 Active 2023 63850 95118 1 Every 6 hours as needed By Mouth False Cephalexin 500 mg capsule [generic] 500mg By Mouth Every 8 hours For UTI 500mg 01/30 Inactiv e 2023 70134 49748 1 Every 8 hours By Mouth False Aspirin 81 mg chewable tablet [generic] 81 mg By Mouth Once daily For AAA 81 mg 2023 Active 2023 58551 36455 6 Once daily By Mouth False Colace 100 mg capsule 100mg By Mouth Twice daily For constipation 100mg 2023 Active 2023 66619 06655 1 Twice daily By Mouth False Enoxaparin 300 mg/3 mL subcutaneou s solution [generic] 20mg Subcutaneous Once daily For anticoag. 20mg 02/06 Inactiv e 2023 34105 32337 1 Once daily Subcut aneous False Losartan 50 mg tablet [generic] 50 By Mouth Once daily For HTN 50 02/16 Inactiv e 2023 61437 79989 9 Once daily By Mouth False Miralax 17 gram/dose oral powder 17 gram By Mouth Once daily For contispation 17 gram 02/17 Inactiv e 2023 89212 42349 0 Once daily By Mouth False Senna 8.6 mg tablet 2 tabs By Mouth Once daily For constipation 2 tabs 02/17 Inactiv e 2023 55061 01911 1 Once daily By Mouth False Simvastatin 20 mg tablet [generic] 20 mg By Mouth Once daily For Hyperlipidemi a 20 mg 2023 Active 2023 65791 16306 0 Once daily By Mouth False Spiriva with HandiHaler 18 mcg and inhalation capsules 1 capsule Inhalation Once daily For COPD 1 capsule 2023 Active 2023 67954 34562 1 Once daily Inhala tion False Ventolin HFA 90 mcg/actuati on aerosol inhaler 2 puff Inhalation Every 4 hours as needed For COPD 2 puff 2023 Active 2023 01675 86451 0 Every 4 hours as needed Inhala tion False ProSource No Carb 15 gram-60 kcal/30 mL oral liquid 30ml By Mouth Twice daily For Protien supplement 30ml 01/30 Inactiv e 2023 12864 43737 5 Twice daily By Mouth False Albuterol sulfate 2.5 mg/3 mL (0.083 %) solution for nebulizatio n [generic] 3 ml Inhalation Every 6 hours as needed For wheezing 3 ml 2023 Active 2023 03890 26141 3 Every 6 hours as needed Inhala tion False Acetaminoph en 325 mg tablet [generic] 650 mg By Mouth Every 6 hours For Mild Pain 650 mg 01/29 Inactiv e 2023 93890 34723 0 Every 6 hours By Mouth False Tylenol 325 mg tablet 2 tabs By Mouth Every 4 hours as needed For Pain DO NOT EXCEED 3000 MG APAP/24 Hours 2 tabs 2023 Active 2023 12049 48670 0 Every 4 hours as needed By Mouth False Tylenol 325 mg tablet 2 tabs By Mouth Every 4 hours as needed For Fever >100 DO NOT EXCEED 3000 MG APAP/24 Hours 2 tabs 2023 Active 2023 73641 53102 0 Every 4 hours as needed By Mouth False Dulcolax (bisacodyl) 10 mg rectal suppository One Suppository per rectum PRN if Milk of Magnisia ineffective. Give on day 5 of no BM 1 sup 2023 Active 2023 42448 61339 1 Daily as needed Rectal False Fleet Enema 19 gram-7 gram/118 mL Administer per rectum PRN one time if dulcolax suppository not effective. Give on day 6 of no BM 1 2023 Active 2023 84586 91166 6 Daily as needed Rectal False Milk of Magnesia 400 mg/5 mL oral suspension [Magnesium hydroxide] PRN 30ml By Mouth Daily as needed for constipation one time daily if no BM, on day 4 of no BM (PRN refer to instructions) For Constipation 30 mL 2023 Active 2023 53302 91460 6 Daily as needed By Mouth False Oxycodone 5 mg tablet [generic] 01/29 Inactiv e 2023 33708 80597 1 Oxycodone 5 mg tablet [generic] 5mg By Mouth Every 4 hours as needed for severe pain for pain rate 7-10. For right pubis fracture 5mg 01/31 Inactiv e 2023 17457 41338 1 Every 4 hours as needed By Mouth False Cymbalta 30 mg capsule,del ayed release 30 mg By Mouth Once daily For Depression 30 mg 02/04 Inactiv e 2023 41374 39036 0 Once daily By Mouth False Acetaminoph en 500 mg tablet [generic] 1000 mg By Mouth Twice daily not to exceed 3gm APAP in 24 hours For Pain 1000 mg 2023 Active 2023 98869 41254 8 Twice daily By Mouth False Healthshake 118 ml BID 118 ml By Mouth Twice daily Healthshake 118 ml BID For MNA of 7 - malnourished - please record total ml consumed 118 ml 2023 Active 2023 Twice daily By Mouth False Oxycodone 5 mg tablet [generic] 01/31 Inactiv e 2023 66484 19174 1 Oxycodone 5 mg tablet [generic] 5mg By Mouth Every 4 hours as needed for severe pain for pain rate 7-10. For right pubis fracture 5mg 02/01 Inactiv e 2023 85712 86851 1 Every 4 hours as needed By Mouth False Oxycodone 5 mg tablet [generic] 5mg By Mouth Every 4 hours as needed for severe pain 7-10 For right pubis fx 5mg 2023 Active 2023 89609 23248 1 Every 4 hours as needed By Mouth False Cymbalta 60 mg capsule,del ayed release 60mg Once daily depression 60mg 2023 Active 2023 29489 47113 0 Once daily By Mouth False Enoxaparin 40 mg/0.4 mL subcutaneou s syringe [generic] 20mg Subcutaneous Once daily For anticoag 20mg 2023 Active 2023 68987 25728 0 Once daily Subcut aneous False Losartan 50 mg tablet [generic] 75 mg By Mouth Once daily For ESSENTIAL (PRIMARY) HYPERTENSION 75 mg 02/17 Inactiv e 2023 35497 93612 9 Once daily By Mouth I10. False Losartan 50 mg tablet [generic] 75 mg By Mouth ( 1.5 TABS) Once daily For ESSENTIAL (PRIMARY) HYPERTENSION 75 mg 2023 Active 2023 85772 71183 9 Once daily By Mouth I10. False Senna 8.6 mg tablet 2 tabs By Mouth Once daily As Needed For constipation 2 tabs 2023 Active 2023 97481 48720 1 Once daily By Mouth False Miralax 17 gram/dose oral powder 17 gram By Mouth As Needed For contispation 17 gram 2023 Active 2023 01334 59334 0 By Mouth False Problems Code Description [...] Temperature SpO2 Blood Sugar Pulse Respirations 210 37592 7 78.00 mm[Hg] - Lying Down 186.00 mm[Hg] - Lying Down 109.80 NI 97.90 Forehead Scan 91.00 % 92.00/ min 18.00/min 210 58913 1 74.00 mm[Hg] - Lying Down 147.00 mm[Hg] - Lying Down 85.00/ min 211 88143 2 72.00 mm[Hg] - Sitting 138.00 mm[Hg] - Sitting 98.40 Tympanic 86.00/ min 18.00/min 30743 211 84901 2 59.00 mm[Hg] - Sitting 117.00 mm[Hg] - Sitting 98.20 Tympanic 99.00 % 81.00/ min 18.00/min 42387 211 64712 5 69.00 mm[Hg] - Sitting 145.00 mm[Hg] - Sitting 13327 211 04228 9 69.00 mm[Hg] - Sitting 145.00 mm[Hg] - Sitting 40139 211 88879 5 69.00 mm[Hg] - Sitting 145.00 mm[Hg] - Sitting 55526 211 95234 6 69.00 mm[Hg] - Sitting 72637 212 79824 7 59.00 mm[Hg] - Sitting 117.00 mm[Hg] - Sitting 98.20 Tympanic 81.00/ min 18.00/min 03416 212 79365 9 97.80 Tympanic 63561 212 44815 6 55.00 mm[Hg] - Sitting 109.00 mm[Hg] - Sitting 97.30 Tympanic 94.00 % 75.00/ min 18.00/min 78777 212 22488 5 68.00 mm[Hg] - Sitting 128.00 mm[Hg] - Sitting 97.80 Tympanic 80.00/ min 18.00/min 19047 212 17395 4 97.50 Tympanic 29608 212 53500 9 26204 212 37895 6 71.00 mm[Hg] - Sitting 117.00 mm[Hg] - Sitting 73261 213 60894 0 60.00 mm[Hg] - Sitting 116.00 mm[Hg] - Sitting 98.40 Forehead Scan 94.00 % 72.00/ min 16.00/min 05438 213 18140 7 70.00 mm[Hg] - Sitting 118.00 mm[Hg] - Sitting 98.00 Tympanic 82.00/ min 18.00/min 44639 213 74246 3 97.90 Tympanic 24373 213 73863 5 73.00 mm[Hg] - Lying Down 127.00 mm[Hg] - Lying Down 88277 213 68713 3 16009 214 35286 1 62.00 mm[Hg] - Sitting 127.00 mm[Hg] - Sitting 97.80 Tympanic 94.00 % 72.00/ min 16.00/min 30935 214 38991 4 59.00 mm[Hg] - Lying Down 113.00 mm[Hg] - Lying Down 77859 215 74057 0 56.00 mm[Hg] - Sitting 101.00 mm[Hg] - Sitting 97.80 Tympanic 95.00 % 71.00/ min 16.00/min 50619 215 24337 5 62 NI 30890 215 28427 8 57.00 mm[Hg] - Lying Down 113.00 mm[Hg] - Lying Down 86678 216 66215 3 71.00 mm[Hg] - Sitting 161.00 mm[Hg] - Sitting 98.10 Tympanic 93.00 % 81.00/ min 16.00/min 216 79658 1 72.00 mm[Hg] - Sitting 115.00 mm[Hg] - Sitting 98779 217 77677 2 38574 217 72441 4 62.00 mm[Hg] - Sitting 112.00 mm[Hg] - Sitting 61442 217 73441 3 57.00 mm[Hg] - Sitting 114.00 mm[Hg] - Sitting 98.30 Tympanic 98.00 % 78.00/ min 20.00/min 217 88660 4 62.00 mm[Hg] - Lying Down 111.00 mm[Hg] - Lying Down 53784 218 61221 0 70.00 mm[Hg] - Sitting 158.00 mm[Hg] - Sitting 97.60 Tympanic 97.00 % 68.00/ min 18.00/min 33050 218 65217 5 65.00 mm[Hg] - Lying Down 113.00 mm[Hg] - Lying Down 25279 219 53017 1 67.00 mm[Hg] - Sitting 112.00 mm[Hg] - Sitting 51017 220 53953 0 82.00 mm[Hg] - Sitting 160.00 mm[Hg] - Sitting 97.90 Forehead Scan 95.00 % 87.00/ min 16.00/min 59322 220 51706 7 69.00 mm[Hg] - Sitting 119.00 mm[Hg] - Sitting 86001 221 43156 1 82.00 mm[Hg] - Sitting 156.00 mm[Hg] - Sitting 98.20 Tympanic 95.00 % 72.00/ min 18.00/min 86043 221 55572 1 78.00 mm[Hg] - Sitting 148.00 mm[Hg] - Sitting 21412 222 31564 0 81.00 mm[Hg] - Sitting 161.00 mm[Hg] - Sitting 97.70 Tympanic 94.00 % 80.00/ min 18.00/min 222 76022 3 87.00 mm[Hg] - Sitting 141.00 mm[Hg] - Sitting 223 95618 9 68.00 mm[Hg] - Sitting 138.00 mm[Hg] - Sitting 98.10 Tympanic 92.00 % 85.00/ min 18.00/min 223 66475 4 67.00 mm[Hg] - Sitting 128.00 mm[Hg] - Sitting 224 26731 6 224 72713 5 73.00 mm[Hg] - Lying Down 151.00 mm[Hg] - Lying Down 98.40 Tympanic 95.00 % 75.00/ min 18.00/min 224 21656 3 63.00 mm[Hg] - Sitting 124.00 mm[Hg] - Sitting 225 41625 1 97.30 Tympanic 95.00 % 72.00/ min 20.00/min 225 16168 6 67.00 mm[Hg] - Sitting 132.00 mm[Hg] - Sitting 226 12906 2 67.00 mm[Hg] - Sitting 121.00 mm[Hg] - Sitting 227 00186 0 70.00 mm[Hg] - Sitting 137.00 mm[Hg] - Sitting 98.70 Forehead Scan 96.00 % 70.00/ min 16.00/min 227 70323 6 69.00 mm[Hg] - Sitting 131.00 mm[Hg] - Sitting 228 01418 7 79.00 mm[Hg] - Lying Down 181.00 mm[Hg] - Lying Down 98.40 Tympanic 98.00 % 75.00/ min 20.00/min 24874 228 68075 1 68.00 mm[Hg] - Lying Down 130.00 mm[Hg] - Lying Down 229 50393 6 80.00 mm[Hg] - Lying Down 183.00 mm[Hg] - Lying Down 98.60 Tympanic 97.00 % 75.00/ min 16.00/min 229 77777 4 74.00 mm[Hg] - Lying Down 161.00 mm[Hg] - Lying Down 77.00/ min 16523 229 82943 9 87.00 mm[Hg] - Sitting 175.00 mm[Hg] - Sitting 90752 230 33269 7 83.00 mm[Hg] - Sitting 186.00 mm[Hg] - Sitting 98.30 Tympanic 94.00 % 86.00/ min 18.00/min 61014 230 73537 6 70.00 mm[Hg] - Sitting 125.00 mm[Hg] - Sitting 70474 231 65466 8 73573 231 57645 4 77.00 mm[Hg] - Sitting 159.00 mm[Hg] - Sitting 98.70 Tympanic 95.00 % 78.00/ min 18.00/min 78043 231 44323 8 77.00 mm[Hg] - Sitting 139.00 mm[Hg] - Sitting 28918 101 96194 3 98.40 Tympanic 95.00 % 85.00/ min 20.00/min 13171 101 93191 5 107.00 NI 98.40 Tympanic 86.00/ min 20.00/min 19211 101 59169 7 107.00 NI 98.40 Tympanic 86.00/ min 20.00/min 87507 101 13390 2 72.00 mm[Hg] - Sitting 136.00 mm[Hg] - Sitting
--- OUTSIDE RECORDS SUMMARY | 2024-04-10 03:15 | External Medical Summary | Continuity Of Care Document ---
Author Name Unknown Address [address] [address] Organization [facility] () Care Team Providers Care Circulation Director Name Role Phone DO Alonso Amy Primary Care Provider [phone] Allergies Allergy Reaction Start Date End Date [...] 3 0.1 mL 01/29 Inactiv e 2023 22361 72146 0 1 time Intrad ermal False Tubersol 5 tub. unit/0.1 mL intradermal injection solution [Tuberculin PPD] 0.1mL Intradermal 1 time For PPD 2nd Step Give 2nd Step PPD Day 1 and Read results Day 3 (schedule 7 days after 1st READ) 0.1mL 02/07 Inactiv e 2023 23244 85477 0 1 time Intrad ermal False Oxycodone 5 mg tablet [generic] 5mg By Mouth Every 4 hours as needed for severe pain for pain rate 7-10. For right pubis fracture 5mg 01/27 Inactiv e 2023 62749 37684 1 Every 4 hours as needed By Mouth False OXYCODONE 5 MG TABLET [GENERIC]IM MEDIATE RELEASE 2.5mg By Mouth Every 4 hours as needed tablet po for moderate pain, pain rate 4-6 on pain scale 1-10. For pain 2.5mg 01/27 Inactiv e 2023 Every 4 hours as needed By Mouth False Oxycodone 5 mg tablet [generic] 01/27 Inactiv e 2023 72711 27034 1 Oxycodone 5 mg tablet [generic] 5mg By Mouth Every 4 hours as needed for severe pain for pain rate 7-10. For right pubis fracture 5mg 01/29 Inactiv e 2023 21926 13358 1 Every 4 hours as needed By [...] For Muscle spasms 175mg 2023 Active 2023 05673 92550 1 Every 6 hours as needed By Mouth False Cephalexin 500 mg capsule [generic] 500mg By Mouth Every 8 hours For UTI 500mg 01/30 Inactiv e 2023 26658 59530 1 Every 8 hours By Mouth False Aspirin 81 mg chewable tablet [generic] 81 mg By Mouth Once daily For AAA 81 mg 2023 Active 2023 82994 05487 6 Once daily By Mouth False Colace 100 mg capsule 100mg By Mouth Twice daily For constipation 100mg 2023 Active 2023 11204 28816 1 Twice daily By Mouth False Enoxaparin 300 mg/3 mL subcutaneou s solution [generic] 20mg Subcutaneous Once daily For anticoag. 20mg 02/06 Inactiv e 2023 60388 04872 1 Once daily Subcut aneous False Losartan 50 mg tablet [generic] 50 By Mouth Once daily For HTN 50 02/16 Inactiv e 2023 93353 24253 9 Once daily By Mouth False Miralax 17 gram/dose oral powder 17 gram By Mouth Once daily For contispation 17 gram 02/17 Inactiv e 2023 73410 56984 0 Once daily By Mouth False Senna 8.6 mg tablet 2 tabs By Mouth Once daily For constipation 2 tabs 02/17 Inactiv e 2023 10724 28997 1 Once daily By Mouth False Simvastatin 20 mg tablet [generic] 20 mg By Mouth Once daily For Hyperlipidemi a 20 mg 2023 Active 2023 45968 90567 0 Once daily By Mouth False Spiriva with HandiHaler 18 mcg and inhalation capsules 1 capsule Inhalation Once daily For COPD 1 capsule 2023 Active 2023 29424 02826 1 Once daily Inhala tion False Ventolin HFA 90 mcg/actuati on aerosol inhaler 2 puff Inhalation Every 4 hours as needed For COPD 2 puff 2023 Active 2023 02710 09183 0 Every 4 hours as needed Inhala tion False ProSource No Carb 15 gram-60 kcal/30 mL oral liquid 30ml By Mouth Twice daily For Protien supplement 30ml 01/30 Inactiv e 2023 00735 20250 5 Twice daily By Mouth False Albuterol sulfate 2.5 mg/3 mL (0.083 %) solution for nebulizatio n [generic] 3 ml Inhalation Every 6 hours as needed For wheezing 3 ml 2023 Active 2023 74548 35742 3 Every 6 hours as needed Inhala tion False Acetaminoph en 325 mg tablet [generic] 650 mg By Mouth Every 6 hours For Mild Pain 650 mg 01/29 Inactiv e 2023 04542 49402 0 Every 6 hours By Mouth False Tylenol 325 mg tablet 2 tabs By Mouth Every 4 hours as needed For Pain DO NOT EXCEED 3000 MG APAP/24 Hours 2 tabs 2023 Active 2023 98969 08404 0 Every 4 hours as needed By Mouth False Tylenol 325 mg tablet 2 tabs By Mouth Every 4 hours as needed For Fever >100 DO NOT EXCEED 3000 MG APAP/24 Hours 2 tabs 2023 Active 2023 89171 66711 0 Every 4 hours as needed By Mouth False Dulcolax (bisacodyl) 10 mg rectal suppository One Suppository per rectum PRN if Milk of Magnisia ineffective. Give on day 5 of no BM 1 sup 2023 Active 2023 21583 89978 1 Daily as needed Rectal False Fleet Enema 19 gram-7 gram/118 mL Administer per rectum PRN one time if dulcolax suppository not effective. Give on day 6 of no BM 1 2023 Active 2023 01480 66532 6 Daily as needed Rectal False Milk of Magnesia 400 mg/5 mL oral suspension [Magnesium hydroxide] PRN 30ml By Mouth Daily as needed for constipation one time daily if no BM, on day 4 of no BM (PRN refer to instructions) For Constipation 30 mL 2023 Active 2023 70548 50905 6 Daily as needed By Mouth False Oxycodone 5 mg tablet [generic] 01/29 Inactiv e 2023 96339 58350 1 Oxycodone 5 mg tablet [generic] 5mg By Mouth Every 4 hours as needed for severe pain for pain rate 7-10. For right pubis fracture 5mg 01/31 Inactiv e 2023 96794 29644 1 Every 4 hours as needed By Mouth False Cymbalta 30 mg capsule,del ayed release 30 mg By Mouth Once daily For Depression 30 mg 02/04 Inactiv e 2023 96328 16396 0 Once daily By Mouth False Acetaminoph en 500 mg tablet [generic] 1000 mg By Mouth Twice daily not to exceed 3gm APAP in 24 hours For Pain 1000 mg 2023 Active 2023 76290 77453 8 Twice daily By Mouth False Healthshake 118 ml BID 118 ml By Mouth Twice daily Healthshake 118 ml BID For MNA of 7 - malnourished - please record total ml consumed 118 ml 2023 Active 2023 Twice daily By Mouth False Oxycodone 5 mg tablet [generic] 01/31 Inactiv e 2023 73822 47113 1 Oxycodone 5 mg tablet [generic] 5mg By Mouth Every 4 hours as needed for severe pain for pain rate 7-10. For right pubis fracture 5mg 02/01 Inactiv e 2023 64109 96525 1 Every 4 hours as needed By Mouth False Oxycodone 5 mg tablet [generic] 5mg By Mouth Every 4 hours as needed for severe pain 7-10 For right pubis fx 5mg 2023 Active 2023 02532 43014 1 Every 4 hours as needed By Mouth False Cymbalta 60 mg capsule,del ayed release 60mg Once daily depression 60mg 2023 Active 2023 02324 25907 0 Once daily By Mouth False Enoxaparin 40 mg/0.4 mL subcutaneou s syringe [generic] 20mg Subcutaneous Once daily For anticoag 20mg 2023 Active 2023 68267 58645 0 Once daily Subcut aneous False Losartan 50 mg tablet [generic] 75 mg By Mouth Once daily For ESSENTIAL (PRIMARY) HYPERTENSION 75 mg 02/17 Inactiv e 2023 12267 53524 9 Once daily By Mouth I10. False Losartan 50 mg tablet [generic] 75 mg By Mouth ( 1.5 TABS) Once daily For ESSENTIAL (PRIMARY) HYPERTENSION 75 mg 2023 Active 2023 16218 47643 9 Once daily By Mouth I10. False Senna 8.6 mg tablet 2 tabs By Mouth Once daily As Needed For constipation 2 tabs 2023 Active 2023 07979 07218 1 Once daily By Mouth False Miralax 17 gram/dose oral powder 17 gram By Mouth As Needed For contispation 17 gram 2023 Active 2023 23008 57106 0 By Mouth False Problems Code Description [...] Temperature SpO2 Blood Sugar Pulse Respirations 210 40227 7 78.00 mm[Hg] - Lying Down 186.00 mm[Hg] - Lying Down 109.80 NI 97.90 Forehead Scan 91.00 % 92.00/ min 18.00/min 210 80566 1 74.00 mm[Hg] - Lying Down 147.00 mm[Hg] - Lying Down 85.00/ min 211 95319 2 72.00 mm[Hg] - Sitting 138.00 mm[Hg] - Sitting 98.40 Tympanic 86.00/ min 18.00/min 65552 211 24951 2 59.00 mm[Hg] - Sitting 117.00 mm[Hg] - Sitting 98.20 Tympanic 99.00 % 81.00/ min 18.00/min 03641 211 63565 5 69.00 mm[Hg] - Sitting 145.00 mm[Hg] - Sitting 68342 211 91182 9 69.00 mm[Hg] - Sitting 145.00 mm[Hg] - Sitting 42383 211 71738 5 69.00 mm[Hg] - Sitting 145.00 mm[Hg] - Sitting 17610 211 21570 6 69.00 mm[Hg] - Sitting 93523 212 41369 7 59.00 mm[Hg] - Sitting 117.00 mm[Hg] - Sitting 98.20 Tympanic 81.00/ min 18.00/min 64473 212 44476 9 97.80 Tympanic 16748 212 40510 6 55.00 mm[Hg] - Sitting 109.00 mm[Hg] - Sitting 97.30 Tympanic 94.00 % 75.00/ min 18.00/min 98313 212 11558 5 68.00 mm[Hg] - Sitting 128.00 mm[Hg] - Sitting 97.80 Tympanic 80.00/ min 18.00/min 75429 212 98181 4 97.50 Tympanic 01470 212 38962 9 04055 212 22766 6 71.00 mm[Hg] - Sitting 117.00 mm[Hg] - Sitting 10078 213 86977 0 60.00 mm[Hg] - Sitting 116.00 mm[Hg] - Sitting 98.40 Forehead Scan 94.00 % 72.00/ min 16.00/min 10586 213 76000 7 70.00 mm[Hg] - Sitting 118.00 mm[Hg] - Sitting 98.00 Tympanic 82.00/ min 18.00/min 27564 213 35130 3 97.90 Tympanic 23103 213 94332 5 73.00 mm[Hg] - Lying Down 127.00 mm[Hg] - Lying Down 43092 213 15299 3 66559 214 07572 1 62.00 mm[Hg] - Sitting 127.00 mm[Hg] - Sitting 97.80 Tympanic 94.00 % 72.00/ min 16.00/min 00512 214 84216 4 59.00 mm[Hg] - Lying Down 113.00 mm[Hg] - Lying Down 67585 215 57089 0 56.00 mm[Hg] - Sitting 101.00 mm[Hg] - Sitting 97.80 Tympanic 95.00 % 71.00/ min 16.00/min 03472 215 75105 5 62 NI 01597 215 06079 8 57.00 mm[Hg] - Lying Down 113.00 mm[Hg] - Lying Down 87596 216 90492 3 71.00 mm[Hg] - Sitting 161.00 mm[Hg] - Sitting 98.10 Tympanic 93.00 % 81.00/ min 16.00/min 216 20634 1 72.00 mm[Hg] - Sitting 115.00 mm[Hg] - Sitting 65470 217 16628 2 26354 217 08499 4 62.00 mm[Hg] - Sitting 112.00 mm[Hg] - Sitting 97305 217 90458 3 57.00 mm[Hg] - Sitting 114.00 mm[Hg] - Sitting 98.30 Tympanic 98.00 % 78.00/ min 20.00/min 217 69601 4 62.00 mm[Hg] - Lying Down 111.00 mm[Hg] - Lying Down 20733 218 42523 0 70.00 mm[Hg] - Sitting 158.00 mm[Hg] - Sitting 97.60 Tympanic 97.00 % 68.00/ min 18.00/min 35463 218 30873 5 65.00 mm[Hg] - Lying Down 113.00 mm[Hg] - Lying Down 12088 219 69756 1 67.00 mm[Hg] - Sitting 112.00 mm[Hg] - Sitting 68565 220 64747 0 82.00 mm[Hg] - Sitting 160.00 mm[Hg] - Sitting 97.90 Forehead Scan 95.00 % 87.00/ min 16.00/min 01644 220 14873 7 69.00 mm[Hg] - Sitting 119.00 mm[Hg] - Sitting 04522 221 97166 1 82.00 mm[Hg] - Sitting 156.00 mm[Hg] - Sitting 98.20 Tympanic 95.00 % 72.00/ min 18.00/min 44436 221 14694 1 78.00 mm[Hg] - Sitting 148.00 mm[Hg] - Sitting 92771 222 24990 0 81.00 mm[Hg] - Sitting 161.00 mm[Hg] - Sitting 97.70 Tympanic 94.00 % 80.00/ min 18.00/min 222 47591 3 87.00 mm[Hg] - Sitting 141.00 mm[Hg] - Sitting 223 73463 9 68.00 mm[Hg] - Sitting 138.00 mm[Hg] - Sitting 98.10 Tympanic 92.00 % 85.00/ min 18.00/min 223 12744 4 67.00 mm[Hg] - Sitting 128.00 mm[Hg] - Sitting 224 89600 6 224 94832 5 73.00 mm[Hg] - Lying Down 151.00 mm[Hg] - Lying Down 98.40 Tympanic 95.00 % 75.00/ min 18.00/min 224 31563 3 63.00 mm[Hg] - Sitting 124.00 mm[Hg] - Sitting 225 17062 1 97.30 Tympanic 95.00 % 72.00/ min 20.00/min 225 14988 6 67.00 mm[Hg] - Sitting 132.00 mm[Hg] - Sitting 226 77361 2 67.00 mm[Hg] - Sitting 121.00 mm[Hg] - Sitting 227 20226 0 70.00 mm[Hg] - Sitting 137.00 mm[Hg] - Sitting 98.70 Forehead Scan 96.00 % 70.00/ min 16.00/min 227 69908 6 69.00 mm[Hg] - Sitting 131.00 mm[Hg] - Sitting 228 49034 7 79.00 mm[Hg] - Lying Down 181.00 mm[Hg] - Lying Down 98.40 Tympanic 98.00 % 75.00/ min 20.00/min 77727 228 42985 1 68.00 mm[Hg] - Lying Down 130.00 mm[Hg] - Lying Down 229 04320 6 80.00 mm[Hg] - Lying Down 183.00 mm[Hg] - Lying Down 98.60 Tympanic 97.00 % 75.00/ min 16.00/min 229 15436 4 74.00 mm[Hg] - Lying Down 161.00 mm[Hg] - Lying Down 77.00/ min 229 97578 9 87.00 mm[Hg] - Sitting 175.00 mm[Hg] - Sitting 230 94507 7 83.00 mm[Hg] - Sitting 186.00 mm[Hg] - Sitting 98.30 Tympanic 94.00 % 86.00/ min 18.00/min 230 87639 6 70.00 mm[Hg] - Sitting 125.00 mm[Hg] - Sitting 231 55908 8 231 98715 4 77.00 mm[Hg] - Sitting 159.00 mm[Hg] - Sitting 98.70 Tympanic 95.00 % 78.00/ min 18.00/min 231 88332 8 77.00 mm[Hg] - Sitting 139.00 mm[Hg] - Sitting
--- OUTSIDE RECORDS SUMMARY | 2024-04-10 03:15 | External Medical Summary | Continuity Of Care Document ---
Author Name Unknown Address [address] [address] Organization [facility] () Care Team Providers Care Technical Support Assistant Name Role Phone DO Alonso Amy Primary Care Provider [phone] Allergies Allergy Reaction Start Date End Date [...] 3 0.1 mL 01/29 Inactiv e 2023 14518 39677 0 1 time Intrad ermal False Tubersol 5 tub. unit/0.1 mL intradermal injection solution [Tuberculin PPD] 0.1mL Intradermal 1 time For PPD 2nd Step Give 2nd Step PPD Day 1 and Read results Day 3 (schedule 7 days after 1st READ) 0.1mL 02/07 Inactiv e 2023 34821 71260 0 1 time Intrad ermal False Oxycodone 5 mg tablet [generic] 5mg By Mouth Every 4 hours as needed for severe pain for pain rate 7-10. For right pubis fracture 5mg 01/27 Inactiv e 2023 98437 68767 1 Every 4 hours as needed By Mouth False OXYCODONE 5 MG TABLET [GENERIC]IM MEDIATE RELEASE 2.5mg By Mouth Every 4 hours as needed tablet po for moderate pain, pain rate 4-6 on pain scale 1-10. For pain 2.5mg 01/27 Inactiv e 2023 Every 4 hours as needed By Mouth False Oxycodone 5 mg tablet [generic] 01/27 Inactiv e 2023 59751 24363 1 Oxycodone 5 mg tablet [generic] 5mg By Mouth Every 4 hours as needed for severe pain for pain rate 7-10. For right pubis fracture 5mg 01/29 Inactiv e 2023 30444 57375 1 Every 4 hours as needed By [...] For Muscle spasms 175mg 2023 Active 2023 64190 24620 1 Every 6 hours as needed By Mouth False Cephalexin 500 mg capsule [generic] 500mg By Mouth Every 8 hours For UTI 500mg 01/30 Inactiv e 2023 55832 42461 1 Every 8 hours By Mouth False Aspirin 81 mg chewable tablet [generic] 81 mg By Mouth Once daily For AAA 81 mg 2023 Active 2023 42674 34076 6 Once daily By Mouth False Colace 100 mg capsule 100mg By Mouth Twice daily For constipation 100mg 2023 Active 2023 64196 84203 1 Twice daily By Mouth False Enoxaparin 300 mg/3 mL subcutaneou s solution [generic] 20mg Subcutaneous Once daily For anticoag. 20mg 02/06 Inactiv e 2023 23582 12479 1 Once daily Subcut aneous False Losartan 50 mg tablet [generic] 50 By Mouth Once daily For HTN 50 02/16 Inactiv e 2023 17890 29180 9 Once daily By Mouth False Miralax 17 gram/dose oral powder 17 gram By Mouth Once daily For contispation 17 gram 2023 Active 2023 03872 53516 0 Once daily By Mouth False Senna 8.6 mg tablet 2 tabs By Mouth Once daily For constipation 2 tabs 2023 Active 2023 65172 38560 1 Once daily By Mouth False Simvastatin 20 mg tablet [generic] 20 mg By Mouth Once daily For Hyperlipidemi a 20 mg 2023 Active 2023 53051 19806 0 Once daily By Mouth False Spiriva with HandiHaler 18 mcg and inhalation capsules 1 capsule Inhalation Once daily For COPD 1 capsule 2023 Active 2023 96302 76617 1 Once daily Inhala tion False Ventolin HFA 90 mcg/actuati on aerosol inhaler 2 puff Inhalation Every 4 hours as needed For COPD 2 puff 2023 Active 2023 15699 21659 0 Every 4 hours as needed Inhala tion False ProSource No Carb 15 gram-60 kcal/30 mL oral liquid 30ml By Mouth Twice daily For Protien supplement 30ml 01/30 Inactiv e 2023 32605 71532 5 Twice daily By Mouth False Albuterol sulfate 2.5 mg/3 mL (0.083 %) solution for nebulizatio n [generic] 3 ml Inhalation Every 6 hours as needed For wheezing 3 ml 2023 Active 2023 19727 46619 3 Every 6 hours as needed Inhala tion False Acetaminoph en 325 mg tablet [generic] 650 mg By Mouth Every 6 hours For Mild Pain 650 mg 01/29 Inactiv e 2023 13803 23583 0 Every 6 hours By Mouth False Tylenol 325 mg tablet 2 tabs By Mouth Every 4 hours as needed For Pain DO NOT EXCEED 3000 MG APAP/24 Hours 2 tabs 2023 Active 2023 22271 01835 0 Every 4 hours as needed By Mouth False Tylenol 325 mg tablet 2 tabs By Mouth Every 4 hours as needed For Fever >100 DO NOT EXCEED 3000 MG APAP/24 Hours 2 tabs 2023 Active 2023 12963 84964 0 Every 4 hours as needed By Mouth False Dulcolax (bisacodyl) 10 mg rectal suppository One Suppository per rectum PRN if Milk of Magnisia ineffective. Give on day 5 of no BM 1 sup 2023 Active 2023 64872 28502 1 Daily as needed Rectal False Fleet Enema 19 gram-7 gram/118 mL Administer per rectum PRN one time if dulcolax suppository not effective. Give on day 6 of no BM 1 2023 Active 2023 03784 91722 6 Daily as needed Rectal False Milk of Magnesia 400 mg/5 mL oral suspension [Magnesium hydroxide] PRN 30ml By Mouth Daily as needed for constipation one time daily if no BM, on day 4 of no BM (PRN refer to instructions) For Constipation 30 mL 2023 Active 2023 98470 35496 6 Daily as needed By Mouth False Oxycodone 5 mg tablet [generic] 01/29 Inactiv e 2023 28146 79785 1 Oxycodone 5 mg tablet [generic] 5mg By Mouth Every 4 hours as needed for severe pain for pain rate 7-10. For right pubis fracture 5mg 01/31 Inactiv e 2023 54008 91671 1 Every 4 hours as needed By Mouth False Cymbalta 30 mg capsule,del ayed release 30 mg By Mouth Once daily For Depression 30 mg 02/04 Inactiv e 2023 82776 41146 0 Once daily By Mouth False Acetaminoph en 500 mg tablet [generic] 1000 mg By Mouth Twice daily not to exceed 3gm APAP in 24 hours For Pain 1000 mg 2023 Active 2023 19136 45535 8 Twice daily By Mouth False Healthshake 118 ml BID 118 ml By Mouth Twice daily Healthshake 118 ml BID For MNA of 7 - malnourished - please record total ml consumed 118 ml 2023 Active 2023 Twice daily By Mouth False Oxycodone 5 mg tablet [generic] 01/31 Inactiv e 2023 17548 39613 1 Oxycodone 5 mg tablet [generic] 5mg By Mouth Every 4 hours as needed for severe pain for pain rate 7-10. For right pubis fracture 5mg 02/01 Inactiv e 2023 29492 28472 1 Every 4 hours as needed By Mouth False Oxycodone 5 mg tablet [generic] 5mg By Mouth Every 4 hours as needed for severe pain 7-10 For right pubis fx 5mg 2023 Active 2023 16454 42370 1 Every 4 hours as needed By Mouth False Cymbalta 60 mg capsule,del ayed release 60mg Once daily depression 60mg 2023 Active 2023 76096 95587 0 Once daily By Mouth False Enoxaparin 40 mg/0.4 mL subcutaneou s syringe [generic] 20mg Subcutaneous Once daily For anticoag 20mg 2023 Active 2023 63098 52972 0 Once daily Subcut aneous False Losartan 50 mg tablet [generic] 75 mg By Mouth Once daily For ESSENTIAL (PRIMARY) HYPERTENSION 75 mg 02/17 Inactiv e 2023 51216 94682 9 Once daily By Mouth I10. False Losartan 50 mg tablet [generic] 75 mg By Mouth ( 1.5 TABS) Once daily For ESSENTIAL (PRIMARY) HYPERTENSION 75 mg 2023 Active 2023 65694 02676 9 Once daily By Mouth I10. False [...] Temperature SpO2 Blood Sugar Pulse Respirations 210 01172 7 78.00 mm[Hg] - Lying Down 186.00 mm[Hg] - Lying Down 109.80 NI 97.90 Forehead Scan 91.00 % 92.00/ min 18.00/min 210 94313 1 74.00 mm[Hg] - Lying Down 147.00 mm[Hg] - Lying Down 85.00/ min 211 83229 2 72.00 mm[Hg] - Sitting 138.00 mm[Hg] - Sitting 98.40 Tympanic 86.00/ min 18.00/min 211 85264 2 59.00 mm[Hg] - Sitting 117.00 mm[Hg] - Sitting 98.20 Tympanic 99.00 % 81.00/ min 18.00/min 211 47682 5 69.00 mm[Hg] - Sitting 145.00 mm[Hg] - Sitting 211 74850 9 69.00 mm[Hg] - Sitting 145.00 mm[Hg] - Sitting 77533 211 52223 5 69.00 mm[Hg] - Sitting 145.00 mm[Hg] - Sitting 78392 211 54113 6 69.00 mm[Hg] - Sitting 46919 212 67460 7 59.00 mm[Hg] - Sitting 117.00 mm[Hg] - Sitting 98.20 Tympanic 81.00/ min 18.00/min 85053 212 79766 9 97.80 Tympanic 74632 212 42254 6 55.00 mm[Hg] - Sitting 109.00 mm[Hg] - Sitting 97.30 Tympanic 94.00 % 75.00/ min 18.00/min 34403 212 79575 5 68.00 mm[Hg] - Sitting 128.00 mm[Hg] - Sitting 97.80 Tympanic 80.00/ min 18.00/min 63483 212 45633 4 97.50 Tympanic 04485 212 29590 9 01222 212 24903 6 71.00 mm[Hg] - Sitting 117.00 mm[Hg] - Sitting 70034 213 73932 0 60.00 mm[Hg] - Sitting 116.00 mm[Hg] - Sitting 98.40 Forehead Scan 94.00 % 72.00/ min 16.00/min 45787 213 70745 7 70.00 mm[Hg] - Sitting 118.00 mm[Hg] - Sitting 98.00 Tympanic 82.00/ min 18.00/min 82231 213 58315 3 97.90 Tympanic 88833 213 93914 5 73.00 mm[Hg] - Lying Down 127.00 mm[Hg] - Lying Down 16229 213 67122 3 43586 214 34533 1 62.00 mm[Hg] - Sitting 127.00 mm[Hg] - Sitting 97.80 Tympanic 94.00 % 72.00/ min 16.00/min 51885 214 63444 4 59.00 mm[Hg] - Lying Down 113.00 mm[Hg] - Lying Down 34176 215 77006 0 56.00 mm[Hg] - Sitting 101.00 mm[Hg] - Sitting 97.80 Tympanic 95.00 % 71.00/ min 16.00/min 20914 215 43042 5 62 NI [address]26 215 74673 8 57.00 mm[Hg] - Lying Down 113.00 mm[Hg] - Lying Down 52600 216 67986 3 71.00 mm[Hg] - Sitting 161.00 mm[Hg] - Sitting 98.10 Tympanic 93.00 % 81.00/ min 16.00/min 216 46092 1 72.00 mm[Hg] - Sitting 115.00 mm[Hg] - Sitting 62000 217 77432 2 217 82741 4 62.00 mm[Hg] - Sitting 112.00 mm[Hg] - Sitting 28755 217 92521 3 57.00 mm[Hg] - Sitting 114.00 mm[Hg] - Sitting 98.30 Tympanic 98.00 % 78.00/ min 20.00/min 217 88104 4 62.00 mm[Hg] - Lying Down 111.00 mm[Hg] - Lying Down 24924 218 47091 0 70.00 mm[Hg] - Sitting 158.00 mm[Hg] - Sitting 97.60 Tympanic 97.00 % 68.00/ min 18.00/min 218 49130 5 65.00 mm[Hg] - Lying Down 113.00 mm[Hg] - Lying Down 46001 219 71000 1 67.00 mm[Hg] - Sitting 112.00 mm[Hg] - Sitting 220 25115 0 82.00 mm[Hg] - Sitting 160.00 mm[Hg] - Sitting 97.90 Forehead Scan 95.00 % 87.00/ min 16.00/min 220 06558 7 69.00 mm[Hg] - Sitting 119.00 mm[Hg] - Sitting 52827 221 10477 1 82.00 mm[Hg] - Sitting 156.00 mm[Hg] - Sitting 98.20 Tympanic 95.00 % 72.00/ min 18.00/min 221 08174 1 78.00 mm[Hg] - Sitting 148.00 mm[Hg] - Sitting 31004 222 81084 0 81.00 mm[Hg] - Sitting 161.00 mm[Hg] - Sitting 97.70 Tympanic 94.00 % 80.00/ min 18.00/min 81279 222 25232 3 87.00 mm[Hg] - Sitting 141.00 mm[Hg] - Sitting 79329 223 22889 9 68.00 mm[Hg] - Sitting 138.00 mm[Hg] - Sitting 98.10 Tympanic 92.00 % 85.00/ min 18.00/min 223 73754 4 67.00 mm[Hg] - Sitting 128.00 mm[Hg] - Sitting 09937 224 50431 6 15786 224 85485 5 73.00 mm[Hg] - Lying Down 151.00 mm[Hg] - Lying Down 98.40 Tympanic 95.00 % 75.00/ min 18.00/min 38483 224 34938 3 63.00 mm[Hg] - Sitting 124.00 mm[Hg] - Sitting 64705 225 41329 1 97.30 Tympanic 95.00 % 72.00/ min 20.00/min 225 64182 6 67.00 mm[Hg] - Sitting 132.00 mm[Hg] - Sitting 59846 226 64920 2 67.00 mm[Hg] - Sitting 121.00 mm[Hg] - Sitting 22573 227 09337 0 70.00 mm[Hg] - Sitting 137.00 mm[Hg] - Sitting 98.70 Forehead Scan 96.00 % 70.00/ min 16.00/min 91602 227 98206 6 69.00 mm[Hg] - Sitting 131.00 mm[Hg] - Sitting 53809 228 18519 7 79.00 mm[Hg] - Lying Down 181.00 mm[Hg] - Lying Down 98.40 Tympanic 98.00 % 75.00/ min 20.00/min 228 60104 1 68.00 mm[Hg] - Lying Down 130.00 mm[Hg] - Lying Down 19691 229 76381 6 80.00 mm[Hg] - Lying Down 183.00 mm[Hg] - Lying Down 98.60 Tympanic 97.00 % 75.00/ min 16.00/min 12665 229 04085 4 74.00 mm[Hg] - Lying Down 161.00 mm[Hg] - Lying Down 77.00/ min 74163 229 26887 9 87.00 mm[Hg] - Sitting 175.00 mm[Hg] - Sitting 34587 230 43974 7 83.00 mm[Hg] - Sitting 186.00 mm[Hg] - Sitting 98.30 Tympanic 94.00 % 86.00/ min 18.00/min 42761 230 59433 6 70.00 mm[Hg] - Sitting 125.00 mm[Hg] - Sitting 29388 231 81004 8 84335 231 70237 8 77.00 mm[Hg] - Sitting 139.00 mm[Hg] - Sitting
--- OUTSIDE RECORDS SUMMARY | 2024-04-10 03:15 | External Medical Summary | Continuity Of Care Document ---
Author Name Unknown Address [address] [address] Organization [facility] () Care Team Providers Care Dry Kiln Loader Name Role Phone DO Alonso Amy Primary Care Provider [phone] Allergies Allergy Reaction Start Date End Date [...] 3 0.1 mL 01/29 Inactiv e 2023 91636 05781 0 1 time Intrad ermal False Tubersol 5 tub. unit/0.1 mL intradermal injection solution [Tuberculin PPD] 0.1mL Intradermal 1 time For PPD 2nd Step Give 2nd Step PPD Day 1 and Read results Day 3 (schedule 7 days after 1st READ) 0.1mL 02/07 Inactiv e 2023 83298 88488 0 1 time Intrad ermal False Oxycodone 5 mg tablet [generic] 5mg By Mouth Every 4 hours as needed for severe pain for pain rate 7-10. For right pubis fracture 5mg 01/27 Inactiv e 2023 31275 36182 1 Every 4 hours as needed By Mouth False OXYCODONE 5 MG TABLET [GENERIC]IM MEDIATE RELEASE 2.5mg By Mouth Every 4 hours as needed tablet po for moderate pain, pain rate 4-6 on pain scale 1-10. For pain 2.5mg 01/27 Inactiv e 2023 Every 4 hours as needed By Mouth False Oxycodone 5 mg tablet [generic] 01/27 Inactiv e 2023 05735 12884 1 Oxycodone 5 mg tablet [generic] 5mg By Mouth Every 4 hours as needed for severe pain for pain rate 7-10. For right pubis fracture 5mg 01/29 Inactiv e 2023 88364 80732 1 Every 4 hours as needed By [...] For Muscle spasms 175mg 2023 Active 2023 79993 95227 1 Every 6 hours as needed By Mouth False Cephalexin 500 mg capsule [generic] 500mg By Mouth Every 8 hours For UTI 500mg 01/30 Inactiv e 2023 22092 82034 1 Every 8 hours By Mouth False Aspirin 81 mg chewable tablet [generic] 81 mg By Mouth Once daily For AAA 81 mg 2023 Active 2023 47278 41274 6 Once daily By Mouth False Colace 100 mg capsule 100mg By Mouth Twice daily For constipation 100mg 2023 Active 2023 64805 59439 1 Twice daily By Mouth False Enoxaparin 300 mg/3 mL subcutaneou s solution [generic] 20mg Subcutaneous Once daily For anticoag. 20mg 02/06 Inactiv e 2023 46427 55810 1 Once daily Subcut aneous False Losartan 50 mg tablet [generic] 50 By Mouth Once daily For HTN 50 02/16 Inactiv e 2023 54642 38343 9 Once daily By Mouth False Miralax 17 gram/dose oral powder 17 gram By Mouth Once daily For contispation 17 gram 2023 Active 2023 65521 96122 0 Once daily By Mouth False Senna 8.6 mg tablet 2 tabs By Mouth Once daily For constipation 2 tabs 2023 Active 2023 68532 73877 1 Once daily By Mouth False Simvastatin 20 mg tablet [generic] 20 mg By Mouth Once daily For Hyperlipidemi a 20 mg 2023 Active 2023 33466 63513 0 Once daily By Mouth False Spiriva with HandiHaler 18 mcg and inhalation capsules 1 capsule Inhalation Once daily For COPD 1 capsule 2023 Active 2023 43063 44611 1 Once daily Inhala tion False Ventolin HFA 90 mcg/actuati on aerosol inhaler 2 puff Inhalation Every 4 hours as needed For COPD 2 puff 2023 Active 2023 04044 79040 0 Every 4 hours as needed Inhala tion False ProSource No Carb 15 gram-60 kcal/30 mL oral liquid 30ml By Mouth Twice daily For Protien supplement 30ml 01/30 Inactiv e 2023 72521 83182 5 Twice daily By Mouth False Albuterol sulfate 2.5 mg/3 mL (0.083 %) solution for nebulizatio n [generic] 3 ml Inhalation Every 6 hours as needed For wheezing 3 ml 2023 Active 2023 16844 47139 3 Every 6 hours as needed Inhala tion False Acetaminoph en 325 mg tablet [generic] 650 mg By Mouth Every 6 hours For Mild Pain 650 mg 01/29 Inactiv e 2023 51475 56060 0 Every 6 hours By Mouth False Tylenol 325 mg tablet 2 tabs By Mouth Every 4 hours as needed For Pain DO NOT EXCEED 3000 MG APAP/24 Hours 2 tabs 2023 Active 2023 70402 51175 0 Every 4 hours as needed By Mouth False Tylenol 325 mg tablet 2 tabs By Mouth Every 4 hours as needed For Fever >100 DO NOT EXCEED 3000 MG APAP/24 Hours 2 tabs 2023 Active 2023 74390 17780 0 Every 4 hours as needed By Mouth False Dulcolax (bisacodyl) 10 mg rectal suppository One Suppository per rectum PRN if Milk of Magnisia ineffective. Give on day 5 of no BM 1 sup 2023 Active 2023 64287 25282 1 Daily as needed Rectal False Fleet Enema 19 gram-7 gram/118 mL Administer per rectum PRN one time if dulcolax suppository not effective. Give on day 6 of no BM 1 2023 Active 2023 54596 37152 6 Daily as needed Rectal False Milk of Magnesia 400 mg/5 mL oral suspension [Magnesium hydroxide] PRN 30ml By Mouth Daily as needed for constipation one time daily if no BM, on day 4 of no BM (PRN refer to instructions) For Constipation 30 mL 2023 Active 2023 38058 87230 6 Daily as needed By Mouth False Oxycodone 5 mg tablet [generic] 01/29 Inactiv e 2023 33677 20259 1 Oxycodone 5 mg tablet [generic] 5mg By Mouth Every 4 hours as needed for severe pain for pain rate 7-10. For right pubis fracture 5mg 01/31 Inactiv e 2023 70387 96878 1 Every 4 hours as needed By Mouth False Cymbalta 30 mg capsule,del ayed release 30 mg By Mouth Once daily For Depression 30 mg 02/04 Inactiv e 2023 28879 61284 0 Once daily By Mouth False Acetaminoph en 500 mg tablet [generic] 1000 mg By Mouth Twice daily not to exceed 3gm APAP in 24 hours For Pain 1000 mg 2023 Active 2023 25837 43848 8 Twice daily By Mouth False Healthshake 118 ml BID 118 ml By Mouth Twice daily Healthshake 118 ml BID For MNA of 7 - malnourished - please record total ml consumed 118 ml 2023 Active 2023 Twice daily By Mouth False Oxycodone 5 mg tablet [generic] 01/31 Inactiv e 2023 48895 51447 1 Oxycodone 5 mg tablet [generic] 5mg By Mouth Every 4 hours as needed for severe pain for pain rate 7-10. For right pubis fracture 5mg 02/01 Inactiv e 2023 16239 83269 1 Every 4 hours as needed By Mouth False Oxycodone 5 mg tablet [generic] 5mg By Mouth Every 4 hours as needed for severe pain 7-10 For right pubis fx 5mg 2023 Active 2023 63158 59975 1 Every 4 hours as needed By Mouth False Cymbalta 60 mg capsule,del ayed release 60mg Once daily depression 60mg 2023 Active 2023 28807 37889 0 Once daily By Mouth False Enoxaparin 40 mg/0.4 mL subcutaneou s syringe [generic] 20mg Subcutaneous Once daily For anticoag 20mg 2023 Active 2023 36456 14572 0 Once daily Subcut aneous False Losartan 50 mg tablet [generic] 75 mg By Mouth Once daily For ESSENTIAL (PRIMARY) HYPERTENSION 75 mg 2023 Active 2023 85592 15863 9 Once daily By Mouth I10. False [...] Temperature SpO2 Blood Sugar Pulse Respirations 210 97995 7 78.00 mm[Hg] - Lying Down 186.00 mm[Hg] - Lying Down 109.80 NI 97.90 Forehead Scan 91.00 % 92.00/ min 18.00/min 210 23034 1 74.00 mm[Hg] - Lying Down 147.00 mm[Hg] - Lying Down 85.00/ min 211 53007 2 72.00 mm[Hg] - Sitting 138.00 mm[Hg] - Sitting 98.40 Tympanic 86.00/ min 18.00/min 211 13978 2 59.00 mm[Hg] - Sitting 117.00 mm[Hg] - Sitting 98.20 Tympanic 99.00 % 81.00/ min 18.00/min 211 83388 5 69.00 mm[Hg] - Sitting 145.00 mm[Hg] - Sitting 211 06135 9 69.00 mm[Hg] - Sitting 145.00 mm[Hg] - Sitting 211 14281 5 69.00 mm[Hg] - Sitting 145.00 mm[Hg] - Sitting 211 98308 6 69.00 mm[Hg] - Sitting 212 27921 7 59.00 mm[Hg] - Sitting 117.00 mm[Hg] - Sitting 98.20 Tympanic 81.00/ min 18.00/min 02018 212 28225 9 97.80 Tympanic 78856 212 71629 6 55.00 mm[Hg] - Sitting 109.00 mm[Hg] - Sitting 97.30 Tympanic 94.00 % 75.00/ min 18.00/min 92027 212 70518 5 68.00 mm[Hg] - Sitting 128.00 mm[Hg] - Sitting 97.80 Tympanic 80.00/ min 18.00/min 18583 212 45497 4 97.50 Tympanic 28725 212 72566 9 17003 212 68787 6 71.00 mm[Hg] - Sitting 117.00 mm[Hg] - Sitting 99539 213 03482 0 60.00 mm[Hg] - Sitting 116.00 mm[Hg] - Sitting 98.40 Forehead Scan 94.00 % 72.00/ min 16.00/min 85334 213 71910 7 70.00 mm[Hg] - Sitting 118.00 mm[Hg] - Sitting 98.00 Tympanic 82.00/ min 18.00/min 85455 213 90381 3 97.90 Tympanic 50782 213 64009 5 73.00 mm[Hg] - Lying Down 127.00 mm[Hg] - Lying Down 66450 213 86798 3 99580 214 86728 1 62.00 mm[Hg] - Sitting 127.00 mm[Hg] - Sitting 97.80 Tympanic 94.00 % 72.00/ min 16.00/min 82100 214 95024 4 59.00 mm[Hg] - Lying Down 113.00 mm[Hg] - Lying Down 88495 215 02735 0 56.00 mm[Hg] - Sitting 101.00 mm[Hg] - Sitting 97.80 Tympanic 95.00 % 71.00/ min 16.00/min 05068 215 40760 5 62 NI 37973 215 86198 8 57.00 mm[Hg] - Lying Down 113.00 mm[Hg] - Lying Down 36215 216 94346 3 71.00 mm[Hg] - Sitting 161.00 mm[Hg] - Sitting 98.10 Tympanic 93.00 % 81.00/ min 16.00/min 68747 216 52859 1 72.00 mm[Hg] - Sitting 115.00 mm[Hg] - Sitting 69798 217 96154 2 52095 217 76420 4 62.00 mm[Hg] - Sitting 112.00 mm[Hg] - Sitting 88341 217 15850 3 57.00 mm[Hg] - Sitting 114.00 mm[Hg] - Sitting 98.30 Tympanic 98.00 % 78.00/ min 20.00/min 95801 217 66514 4 62.00 mm[Hg] - Lying Down 111.00 mm[Hg] - Lying Down 82102 218 56916 0 70.00 mm[Hg] - Sitting 158.00 mm[Hg] - Sitting 97.60 Tympanic 97.00 % 68.00/ min 18.00/min 86874 218 07061 5 65.00 mm[Hg] - Lying Down 113.00 mm[Hg] - Lying Down 06299 219 06439 1 67.00 mm[Hg] - Sitting 112.00 mm[Hg] - Sitting 220 76949 0 82.00 mm[Hg] - Sitting 160.00 mm[Hg] - Sitting 97.90 Forehead Scan 95.00 % 87.00/ min 16.00/min 35439 220 20568 7 69.00 mm[Hg] - Sitting 119.00 mm[Hg] - Sitting 67361 221 88973 1 82.00 mm[Hg] - Sitting 156.00 mm[Hg] - Sitting 98.20 Tympanic 95.00 % 72.00/ min 18.00/min 51770 221 74003 1 78.00 mm[Hg] - Sitting 148.00 mm[Hg] - Sitting 72942 222 54075 0 81.00 mm[Hg] - Sitting 161.00 mm[Hg] - Sitting 97.70 Tympanic 94.00 % 80.00/ min 18.00/min 79286 222 71242 3 87.00 mm[Hg] - Sitting 141.00 mm[Hg] - Sitting 54483 223 28867 9 68.00 mm[Hg] - Sitting 138.00 mm[Hg] - Sitting 98.10 Tympanic 92.00 % 85.00/ min 18.00/min 70392 223 75759 4 67.00 mm[Hg] - Sitting 128.00 mm[Hg] - Sitting 44371 224 98855 6 04993 224 31587 5 73.00 mm[Hg] - Lying Down 151.00 mm[Hg] - Lying Down 98.40 Tympanic 95.00 % 75.00/ min 18.00/min 54074 224 11994 3 63.00 mm[Hg] - Sitting 124.00 mm[Hg] - Sitting
--- OUTSIDE RECORDS SUMMARY | 2024-04-10 03:16 | External Medical Summary | Continuity Of Care Document ---
Author Name Unknown Address [address] [address] Organization [facility] () Care Team Providers Care Iron Pellet Tester Name Role Phone DO Alonso Amy Primary Care Provider [phone] Allergies Allergy Reaction Start Date End Date [...] 3 0.1 mL 01/29 Inactiv e 2023 80668 04087 0 1 time Intrad ermal False Tubersol 5 tub. unit/0.1 mL intradermal injection solution [Tuberculin PPD] 0.1mL Intradermal 1 time For PPD 2nd Step Give 2nd Step PPD Day 1 and Read results Day 3 (schedule 7 days after 1st READ) 0.1mL 02/07 Inactiv e 2023 57563 20181 0 1 time Intrad ermal False Oxycodone 5 mg tablet [generic] 5mg By Mouth Every 4 hours as needed for severe pain for pain rate 7-10. For right pubis fracture 5mg 01/27 Inactiv e 2023 94449 54421 1 Every 4 hours as needed By Mouth False OXYCODONE 5 MG TABLET [GENERIC]IM MEDIATE RELEASE 2.5mg By Mouth Every 4 hours as needed tablet po for moderate pain, pain rate 4-6 on pain scale 1-10. For pain 2.5mg 01/27 Inactiv e 2023 Every 4 hours as needed By Mouth False Oxycodone 5 mg tablet [generic] 01/27 Inactiv e 2023 31275 99222 1 Oxycodone 5 mg tablet [generic] 5mg By Mouth Every 4 hours as needed for severe pain for pain rate 7-10. For right pubis fracture 5mg 01/29 Inactiv e 2023 14564 56689 1 Every 4 hours as needed By [...] For Muscle spasms 175mg 2023 Active 2023 54367 79547 1 Every 6 hours as needed By Mouth False Cephalexin 500 mg capsule [generic] 500mg By Mouth Every 8 hours For UTI 500mg 01/30 Inactiv e 2023 65742 68742 1 Every 8 hours By Mouth False Aspirin 81 mg chewable tablet [generic] 81 mg By Mouth Once daily For AAA 81 mg 2023 Active 2023 21421 12809 6 Once daily By Mouth False Colace 100 mg capsule 100mg By Mouth Twice daily For constipation 100mg 2023 Active 2023 69861 34240 1 Twice daily By Mouth False Enoxaparin 300 mg/3 mL subcutaneou s solution [generic] 20mg Subcutaneous Once daily For anticoag. 20mg 02/06 Inactiv e 2023 64616 54229 1 Once daily Subcut aneous False Losartan 50 mg tablet [generic] 50 By Mouth Once daily For HTN 50 2023 Active 2023 76031 61824 9 Once daily By Mouth False Miralax 17 gram/dose oral powder 17 gram By Mouth Once daily For contispation 17 gram 2023 Active 2023 44061 80502 0 Once daily By Mouth False Senna 8.6 mg tablet 2 tabs By Mouth Once daily For constipation 2 tabs 2023 Active 2023 97931 19345 1 Once daily By Mouth False Simvastatin 20 mg tablet [generic] 20 mg By Mouth Once daily For Hyperlipidemi a 20 mg 2023 Active 2023 09297 87145 0 Once daily By Mouth False Spiriva with HandiHaler 18 mcg and inhalation capsules 1 capsule Inhalation Once daily For COPD 1 capsule 2023 Active 2023 95181 70788 1 Once daily Inhala tion False Ventolin HFA 90 mcg/actuati on aerosol inhaler 2 puff Inhalation Every 4 hours as needed For COPD 2 puff 2023 Active 2023 95290 74534 0 Every 4 hours as needed Inhala tion False ProSource No Carb 15 gram-60 kcal/30 mL oral liquid 30ml By Mouth Twice daily For Protien supplement 30ml 01/30 Inactiv e 2023 67870 35448 5 Twice daily By Mouth False Albuterol sulfate 2.5 mg/3 mL (0.083 %) solution for nebulizatio n [generic] 3 ml Inhalation Every 6 hours as needed For wheezing 3 ml 2023 Active 2023 57559 18475 3 Every 6 hours as needed Inhala tion False Acetaminoph en 325 mg tablet [generic] 650 mg By Mouth Every 6 hours For Mild Pain 650 mg 01/29 Inactiv e 2023 29571 28003 0 Every 6 hours By Mouth False Tylenol 325 mg tablet 2 tabs By Mouth Every 4 hours as needed For Pain DO NOT EXCEED 3000 MG APAP/24 Hours 2 tabs 2023 Active 2023 52741 36345 0 Every 4 hours as needed By Mouth False Tylenol 325 mg tablet 2 tabs By Mouth Every 4 hours as needed For Fever >100 DO NOT EXCEED 3000 MG APAP/24 Hours 2 tabs 2023 Active 2023 05337 78269 0 Every 4 hours as needed By Mouth False Dulcolax (bisacodyl) 10 mg rectal suppository One Suppository per rectum PRN if Milk of Magnisia ineffective. Give on day 5 of no BM 1 sup 2023 Active 2023 87089 04814 1 Daily as needed Rectal False Fleet Enema 19 gram-7 gram/118 mL Administer per rectum PRN one time if dulcolax suppository not effective. Give on day 6 of no BM 1 2023 Active 2023 96924 35778 6 Daily as needed Rectal False Milk of Magnesia 400 mg/5 mL oral suspension [Magnesium hydroxide] PRN 30ml By Mouth Daily as needed for constipation one time daily if no BM, on day 4 of no BM (PRN refer to instructions) For Constipation 30 mL 2023 Active 2023 00519 56598 6 Daily as needed By Mouth False Oxycodone 5 mg tablet [generic] 01/29 Inactiv e 2023 43662 67735 1 Oxycodone 5 mg tablet [generic] 5mg By Mouth Every 4 hours as needed for severe pain for pain rate 7-10. For right pubis fracture 5mg 01/31 Inactiv e 2023 14228 15496 1 Every 4 hours as needed By Mouth False Cymbalta 30 mg capsule,del ayed release 30 mg By Mouth Once daily For Depression 30 mg 02/04 Inactiv e 2023 46813 51924 0 Once daily By Mouth False Acetaminoph en 500 mg tablet [generic] 1000 mg By Mouth Twice daily not to exceed 3gm APAP in 24 hours For Pain 1000 mg 2023 Active 2023 60531 23516 8 Twice daily By Mouth False Healthshake 118 ml BID 118 ml By Mouth Twice daily Healthshake 118 ml BID For MNA of 7 - malnourished - please record total ml consumed 118 ml 2023 Active 2023 Twice daily By Mouth False Oxycodone 5 mg tablet [generic] 01/31 Inactiv e 2023 73782 80799 1 Oxycodone 5 mg tablet [generic] 5mg By Mouth Every 4 hours as needed for severe pain for pain rate 7-10. For right pubis fracture 5mg 02/01 Inactiv e 2023 35817 41323 1 Every 4 hours as needed By Mouth False Oxycodone 5 mg tablet [generic] 5mg By Mouth Every 4 hours as needed for severe pain 7-10 For right pubis fx 5mg 2023 Active 2023 77041 14928 1 Every 4 hours as needed By Mouth False Cymbalta 60 mg capsule,del ayed release 60mg Once daily depression 60mg 2023 Active 2023 57120 05179 0 Once daily By Mouth False Enoxaparin 40 mg/0.4 mL subcutaneou s syringe [generic] 20mg Subcutaneous Once daily For anticoag 20mg 2023 Active 2023 31964 64449 0 Once daily Subcut aneous False Problems Code Description Start Date End [...] Temperature SpO2 Blood Sugar Pulse Respirations 210 83519 7 78.00 mm[Hg] - Lying Down 186.00 mm[Hg] - Lying Down 109.80 NI 97.90 Forehead Scan 91.00 % 92.00/ min 18.00/min 210 35250 1 74.00 mm[Hg] - Lying Down 147.00 mm[Hg] - Lying Down 85.00/ min 211 37474 2 72.00 mm[Hg] - Sitting 138.00 mm[Hg] - Sitting 98.40 Tympanic 86.00/ min 18.00/min 211 44179 2 59.00 mm[Hg] - Sitting 117.00 mm[Hg] - Sitting 98.20 Tympanic 99.00 % 81.00/ min 18.00/min 211 95239 5 69.00 mm[Hg] - Sitting 145.00 mm[Hg] - Sitting 211 89005 9 69.00 mm[Hg] - Sitting 145.00 mm[Hg] - Sitting 211 75584 5 69.00 mm[Hg] - Sitting 145.00 mm[Hg] - Sitting 211 15236 6 69.00 mm[Hg] - Sitting 212 62125 7 59.00 mm[Hg] - Sitting 117.00 mm[Hg] - Sitting 98.20 Tympanic 81.00/ min 18.00/min 212 47262 9 97.80 Tympanic 37904 6 55.00 mm[Hg] - Sitting 109.00 mm[Hg] - Sitting 97.30 Tympanic 94.00 % 75.00/ min 18.00/min 33501 212 68056 5 68.00 mm[Hg] - Sitting 128.00 mm[Hg] - Sitting 97.80 Tympanic 80.00/ min 18.00/min 42571 212 25192 4 97.50 Tympanic 49243 212 07926 9 75948 212 39471 6 71.00 mm[Hg] - Sitting 117.00 mm[Hg] - Sitting 99665 213 37808 0 60.00 mm[Hg] - Sitting 116.00 mm[Hg] - Sitting 98.40 Forehead Scan 94.00 % 72.00/ min 16.00/min 10150 213 91489 7 70.00 mm[Hg] - Sitting 118.00 mm[Hg] - Sitting 98.00 Tympanic 82.00/ min 18.00/min 98696 213 92897 3 97.90 Tympanic 42121 213 16738 5 73.00 mm[Hg] - Lying Down 127.00 mm[Hg] - Lying Down 25867 213 46715 3 42623 214 45474 1 62.00 mm[Hg] - Sitting 127.00 mm[Hg] - Sitting 97.80 Tympanic 94.00 % 72.00/ min 16.00/min 39866 214 90051 4 59.00 mm[Hg] - Lying Down 113.00 mm[Hg] - Lying Down 18381 215 10594 0 56.00 mm[Hg] - Sitting 101.00 mm[Hg] - Sitting 97.80 Tympanic 95.00 % 71.00/ min 16.00/min 61746 215 38168 5 62 NI [address] 215 25772 8 57.00 mm[Hg] - Lying Down 113.00 mm[Hg] - Lying Down 24078 216 88787 3 71.00 mm[Hg] - Sitting 161.00 mm[Hg] - Sitting 98.10 Tympanic 93.00 % 81.00/ min 16.00/min 22542 216 10016 1 72.00 mm[Hg] - Sitting 115.00 mm[Hg] - Sitting 35645 217 88196 2 08060 217 65039 4 62.00 mm[Hg] - Sitting 112.00 mm[Hg] - Sitting 74392 217 22220 3 57.00 mm[Hg] - Sitting 114.00 mm[Hg] - Sitting 98.30 Tympanic 98.00 % 78.00/ min 20.00/min 07521 217 28712 4 62.00 mm[Hg] - Lying Down 111.00 mm[Hg] - Lying Down 92354 218 02654 0 70.00 mm[Hg] - Sitting 158.00 mm[Hg] - Sitting 97.60 Tympanic 97.00 % 68.00/ min 18.00/min 19074 218 02064 5 65.00 mm[Hg] - Lying Down 113.00 mm[Hg] - Lying Down 68547 219 89468 1 67.00 mm[Hg] - Sitting 112.00 mm[Hg] - Sitting 36545 220 66626 0 82.00 mm[Hg] - Sitting 160.00 mm[Hg] - Sitting 97.90 Forehead Scan 95.00 % 87.00/ min 16.00/min 60288 220 51073 7 69.00 mm[Hg] - Sitting 119.00 mm[Hg] - Sitting 49145 221 00743 1 82.00 mm[Hg] - Sitting 156.00 mm[Hg] - Sitting 98.20 Tympanic 95.00 % 72.00/ min 18.00/min 48571 221 28982 1 78.00 mm[Hg] - Sitting 148.00 mm[Hg] - Sitting 40127 222 49037 0 81.00 mm[Hg] - Sitting 161.00 mm[Hg] - Sitting 97.70 Tympanic 94.00 % 80.00/ min 18.00/min 16944 222 28423 3 87.00 mm[Hg] - Sitting 141.00 mm[Hg] - Sitting 45668 223 37602 9 68.00 mm[Hg] - Sitting 138.00 mm[Hg] - Sitting 98.10 Tympanic 92.00 % 85.00/ min 18.00/min 55753 223 99586 4 67.00 mm[Hg] - Sitting 128.00 mm[Hg] - Sitting 77408 224 56807 6 06852 224 18469 5 73.00 mm[Hg] - Lying Down 151.00 mm[Hg] - Lying Down 98.40 Tympanic 95.00 % 75.00/ min 18.00/min 28144 224 62786 3 63.00 mm[Hg] - Sitting 124.00 mm[Hg] - Sitting 95268 225 90186 1 97.30 Tympanic 95.00 % 72.00/ min 20.00/min 37217 225 17687 6 67.00 mm[Hg] - Sitting 132.00 mm[Hg] - Sitting 226 54717 2 67.00 mm[Hg] - Sitting 121.00 mm[Hg] - Sitting 227 54520 0 70.00 mm[Hg] - Sitting 137.00 mm[Hg] - Sitting 98.70 Forehead Scan 96.00 % 70.00/ min 16.00/min 227 49719 6 69.00 mm[Hg] - Sitting 131.00 mm[Hg] - Sitting
--- OUTSIDE RECORDS SUMMARY | 2024-04-10 03:16 | External Medical Summary | Continuity Of Care Document ---
Author Name Unknown Address [address] [address] Organization [facility] () Care Team Providers Care Sales Account Leader Name Role Phone DO Alonso Amy Primary Care Provider [phone] Allergies Allergy Reaction Start Date End Date [...] 3 0.1 mL 01/29 Inactiv e 2023 17173 12092 0 1 time Intrad ermal False Tubersol 5 tub. unit/0.1 mL intradermal injection solution [Tuberculin PPD] 0.1mL Intradermal 1 time For PPD 2nd Step Give 2nd Step PPD Day 1 and Read results Day 3 (schedule 7 days after 1st READ) 0.1mL 02/07 Inactiv e 2023 83366 20909 0 1 time Intrad ermal False Oxycodone 5 mg tablet [generic] 5mg By Mouth Every 4 hours as needed for severe pain for pain rate 7-10. For right pubis fracture 5mg 01/27 Inactiv e 2023 23540 71072 1 Every 4 hours as needed By Mouth False OXYCODONE 5 MG TABLET [GENERIC]IM MEDIATE RELEASE 2.5mg By Mouth Every 4 hours as needed tablet po for moderate pain, pain rate 4-6 on pain scale 1-10. For pain 2.5mg 01/27 Inactiv e 2023 Every 4 hours as needed By Mouth False Oxycodone 5 mg tablet [generic] 01/27 Inactiv e 2023 35687 61449 1 Oxycodone 5 mg tablet [generic] 5mg By Mouth Every 4 hours as needed for severe pain for pain rate 7-10. For right pubis fracture 5mg 01/29 Inactiv e 2023 59784 10795 1 Every 4 hours as needed By [...] For Muscle spasms 175mg 2023 Active 2023 27989 64393 1 Every 6 hours as needed By Mouth False Cephalexin 500 mg capsule [generic] 500mg By Mouth Every 8 hours For UTI 500mg 01/30 Inactiv e 2023 70109 09934 1 Every 8 hours By Mouth False Aspirin 81 mg chewable tablet [generic] 81 mg By Mouth Once daily For AAA 81 mg 2023 Active 2023 99505 75334 6 Once daily By Mouth False Colace 100 mg capsule 100mg By Mouth Twice daily For constipation 100mg 2023 Active 2023 43299 92384 1 Twice daily By Mouth False Enoxaparin 300 mg/3 mL subcutaneou s solution [generic] 20mg Subcutaneous Once daily For anticoag. 20mg 02/06 Inactiv e 2023 15205 93704 1 Once daily Subcut aneous False Losartan 50 mg tablet [generic] 50 By Mouth Once daily For HTN 50 2023 Active 2023 50734 59078 9 Once daily By Mouth False Miralax 17 gram/dose oral powder 17 gram By Mouth Once daily For contispation 17 gram 2023 Active 2023 19569 53723 0 Once daily By Mouth False Senna 8.6 mg tablet 2 tabs By Mouth Once daily For constipation 2 tabs 2023 Active 2023 93144 06081 1 Once daily By Mouth False Simvastatin 20 mg tablet [generic] 20 mg By Mouth Once daily For Hyperlipidemi a 20 mg 2023 Active 2023 21823 31487 0 Once daily By Mouth False Spiriva with HandiHaler 18 mcg and inhalation capsules 1 capsule Inhalation Once daily For COPD 1 capsule 2023 Active 2023 22058 49987 1 Once daily Inhala tion False Ventolin HFA 90 mcg/actuati on aerosol inhaler 2 puff Inhalation Every 4 hours as needed For COPD 2 puff 2023 Active 2023 07123 76050 0 Every 4 hours as needed Inhala tion False ProSource No Carb 15 gram-60 kcal/30 mL oral liquid 30ml By Mouth Twice daily For Protien supplement 30ml 01/30 Inactiv e 2023 31074 64495 5 Twice daily By Mouth False Albuterol sulfate 2.5 mg/3 mL (0.083 %) solution for nebulizatio n [generic] 3 ml Inhalation Every 6 hours as needed For wheezing 3 ml 2023 Active 2023 45985 88806 3 Every 6 hours as needed Inhala tion False Acetaminoph en 325 mg tablet [generic] 650 mg By Mouth Every 6 hours For Mild Pain 650 mg 01/29 Inactiv e 2023 71762 41515 0 Every 6 hours By Mouth False Tylenol 325 mg tablet 2 tabs By Mouth Every 4 hours as needed For Pain DO NOT EXCEED 3000 MG APAP/24 Hours 2 tabs 2023 Active 2023 30624 77749 0 Every 4 hours as needed By Mouth False Tylenol 325 mg tablet 2 tabs By Mouth Every 4 hours as needed For Fever >100 DO NOT EXCEED 3000 MG APAP/24 Hours 2 tabs 2023 Active 2023 10517 99564 0 Every 4 hours as needed By Mouth False Dulcolax (bisacodyl) 10 mg rectal suppository One Suppository per rectum PRN if Milk of Magnisia ineffective. Give on day 5 of no BM 1 sup 2023 Active 2023 97874 71762 1 Daily as needed Rectal False Fleet Enema 19 gram-7 gram/118 mL Administer per rectum PRN one time if dulcolax suppository not effective. Give on day 6 of no BM 1 2023 Active 2023 56835 71500 6 Daily as needed Rectal False Milk of Magnesia 400 mg/5 mL oral suspension [Magnesium hydroxide] PRN 30ml By Mouth Daily as needed for constipation one time daily if no BM, on day 4 of no BM (PRN refer to instructions) For Constipation 30 mL 2023 Active 2023 41705 21931 6 Daily as needed By Mouth False Oxycodone 5 mg tablet [generic] 01/29 Inactiv e 2023 40851 43479 1 Oxycodone 5 mg tablet [generic] 5mg By Mouth Every 4 hours as needed for severe pain for pain rate 7-10. For right pubis fracture 5mg 01/31 Inactiv e 2023 31924 00426 1 Every 4 hours as needed By Mouth False Cymbalta 30 mg capsule,del ayed release 30 mg By Mouth Once daily For Depression 30 mg 02/04 Inactiv e 2023 82254 60961 0 Once daily By Mouth False Acetaminoph en 500 mg tablet [generic] 1000 mg By Mouth Twice daily not to exceed 3gm APAP in 24 hours For Pain 1000 mg 2023 Active 2023 68935 19603 8 Twice daily By Mouth False Healthshake 118 ml BID 118 ml By Mouth Twice daily Healthshake 118 ml BID For MNA of 7 - malnourished - please record total ml consumed 118 ml 2023 Active 2023 Twice daily By Mouth False Oxycodone 5 mg tablet [generic] 01/31 Inactiv e 2023 94461 24978 1 Oxycodone 5 mg tablet [generic] 5mg By Mouth Every 4 hours as needed for severe pain for pain rate 7-10. For right pubis fracture 5mg 02/01 Inactiv e 2023 29453 68824 1 Every 4 hours as needed By Mouth False Oxycodone 5 mg tablet [generic] 5mg By Mouth Every 4 hours as needed for severe pain 7-10 For right pubis fx 5mg 2023 Active 2023 30606 35864 1 Every 4 hours as needed By Mouth False Cymbalta 60 mg capsule,del ayed release 60mg Once daily depression 60mg 2023 Active 2023 05129 83441 0 Once daily By Mouth False Enoxaparin 40 mg/0.4 mL subcutaneou s syringe [generic] 20mg Subcutaneous Once daily For anticoag 20mg 2023 Active 2023 35343 41607 0 Once daily Subcut aneous False Problems [...] Temperature SpO2 Blood Sugar Pulse Respirations 210 58941 7 78.00 mm[Hg] - Lying Down 186.00 mm[Hg] - Lying Down 109.80 NI 97.90 Forehead Scan 91.00 % 92.00/ min 18.00/min 210 21045 1 74.00 mm[Hg] - Lying Down 147.00 mm[Hg] - Lying Down 85.00/ min 211 20650 2 72.00 mm[Hg] - Sitting 138.00 mm[Hg] - Sitting 98.40 Tympanic 86.00/ min 18.00/min 211 66786 2 59.00 mm[Hg] - Sitting 117.00 mm[Hg] - Sitting 98.20 Tympanic 99.00 % 81.00/ min 18.00/min 211 51944 5 69.00 mm[Hg] - Sitting 145.00 mm[Hg] - Sitting 211 02334 9 69.00 mm[Hg] - Sitting 145.00 mm[Hg] - Sitting 211 15248 5 69.00 mm[Hg] - Sitting 145.00 mm[Hg] - Sitting 211 10873 6 69.00 mm[Hg] - Sitting 212 66654 7 59.00 mm[Hg] - Sitting 117.00 mm[Hg] - Sitting 98.20 Tympanic 81.00/ min 18.00/min 212 33314 9 97.80 Tympanic 29840 6 55.00 mm[Hg] - Sitting 109.00 mm[Hg] - Sitting 97.30 Tympanic 94.00 % 75.00/ min 18.00/min 62501 212 74234 5 68.00 mm[Hg] - Sitting 128.00 mm[Hg] - Sitting 97.80 Tympanic 80.00/ min 18.00/min 37300 212 05461 4 97.50 Tympanic 84744 212 86067 9 75143 212 78048 6 71.00 mm[Hg] - Sitting 117.00 mm[Hg] - Sitting 01875 213 52953 0 60.00 mm[Hg] - Sitting 116.00 mm[Hg] - Sitting 98.40 Forehead Scan 94.00 % 72.00/ min 16.00/min 40534 213 35085 7 70.00 mm[Hg] - Sitting 118.00 mm[Hg] - Sitting 98.00 Tympanic 82.00/ min 18.00/min 52529 213 47637 3 97.90 Tympanic 77503 213 47809 5 73.00 mm[Hg] - Lying Down 127.00 mm[Hg] - Lying Down 37883 213 06208 3 09510 214 86007 1 62.00 mm[Hg] - Sitting 127.00 mm[Hg] - Sitting 97.80 Tympanic 94.00 % 72.00/ min 16.00/min 40643 214 58870 4 59.00 mm[Hg] - Lying Down 113.00 mm[Hg] - Lying Down 57525 215 37254 0 56.00 mm[Hg] - Sitting 101.00 mm[Hg] - Sitting 97.80 Tympanic 95.00 % 71.00/ min 16.00/min 98205 215 03870 5 62 NI 44129 215 20814 8 57.00 mm[Hg] - Lying Down 113.00 mm[Hg] - Lying Down 25761 216 11779 3 71.00 mm[Hg] - Sitting 161.00 mm[Hg] - Sitting 98.10 Tympanic 93.00 % 81.00/ min 16.00/min 26880 216 37680 1 72.00 mm[Hg] - Sitting 115.00 mm[Hg] - Sitting 86993 217 35910 2 07791 217 52665 4 62.00 mm[Hg] - Sitting 112.00 mm[Hg] - Sitting 23290 217 69315 3 57.00 mm[Hg] - Sitting 114.00 mm[Hg] - Sitting 98.30 Tympanic 98.00 % 78.00/ min 20.00/min 89832 217 61481 4 62.00 mm[Hg] - Lying Down 111.00 mm[Hg] - Lying Down 21222 218 11014 0 70.00 mm[Hg] - Sitting 158.00 mm[Hg] - Sitting 97.60 Tympanic 97.00 % 68.00/ min 18.00/min 16606 218 51940 5 65.00 mm[Hg] - Lying Down 113.00 mm[Hg] - Lying Down 06083 219 55145 1 67.00 mm[Hg] - Sitting 112.00 mm[Hg] - Sitting 98568 220 08637 0 82.00 mm[Hg] - Sitting 160.00 mm[Hg] - Sitting 97.90 Forehead Scan 95.00 % 87.00/ min 16.00/min 08024 220 11019 7 69.00 mm[Hg] - Sitting 119.00 mm[Hg] - Sitting 43144 221 94770 1 82.00 mm[Hg] - Sitting 156.00 mm[Hg] - Sitting 98.20 Tympanic 95.00 % 72.00/ min 18.00/min 92093 221 33570 1 78.00 mm[Hg] - Sitting 148.00 mm[Hg] - Sitting 29327 222 75760 0 81.00 mm[Hg] - Sitting 161.00 mm[Hg] - Sitting 97.70 Tympanic 94.00 % 80.00/ min 18.00/min 67940 222 10304 3 87.00 mm[Hg] - Sitting 141.00 mm[Hg] - Sitting 88070 223 94928 9 68.00 mm[Hg] - Sitting 138.00 mm[Hg] - Sitting 98.10 Tympanic 92.00 % 85.00/ min 18.00/min 18239 223 70787 4 67.00 mm[Hg] - Sitting 128.00 mm[Hg] - Sitting 91148 224 50316 6 89876 224 57940 5 73.00 mm[Hg] - Lying Down 151.00 mm[Hg] - Lying Down 98.40 Tympanic 95.00 % 75.00/ min 18.00/min 36759 224 68976 3 63.00 mm[Hg] - Sitting 124.00 mm[Hg] - Sitting 82409 225 89427 1 97.30 Tympanic
--- OUTSIDE RECORDS SUMMARY | 2024-04-10 03:16 | External Medical Summary | Continuity Of Care Document ---
Author Name Unknown Address [address] [address] Organization [facility] () Care Team Providers Care Marketing Project Manager Name Role Phone DO Alonso Amy Primary Care Provider [phone] Allergies Allergy Reaction Start Date End Date [...] 3 0.1 mL 01/29 Inactiv e 2023 67101 48627 0 1 time Intrad ermal False Tubersol 5 tub. unit/0.1 mL intradermal injection solution [Tuberculin PPD] 0.1mL Intradermal 1 time For PPD 2nd Step Give 2nd Step PPD Day 1 and Read results Day 3 (schedule 7 days after 1st READ) 0.1mL 02/07 Inactiv e 2023 81365 07654 0 1 time Intrad ermal False Oxycodone 5 mg tablet [generic] 5mg By Mouth Every 4 hours as needed for severe pain for pain rate 7-10. For right pubis fracture 5mg 01/27 Inactiv e 2023 30835 32785 1 Every 4 hours as needed By Mouth False OXYCODONE 5 MG TABLET [GENERIC]IM MEDIATE RELEASE 2.5mg By Mouth Every 4 hours as needed tablet po for moderate pain, pain rate 4-6 on pain scale 1-10. For pain 2.5mg 01/27 Inactiv e 2023 Every 4 hours as needed By Mouth False Oxycodone 5 mg tablet [generic] 01/27 Inactiv e 2023 39258 56486 1 Oxycodone 5 mg tablet [generic] 5mg By Mouth Every 4 hours as needed for severe pain for pain rate 7-10. For right pubis fracture 5mg 01/29 Inactiv e 2023 97735 55313 1 Every 4 hours as needed By [...] For Muscle spasms 175mg 2023 Active 2023 76304 45069 1 Every 6 hours as needed By Mouth False Cephalexin 500 mg capsule [generic] 500mg By Mouth Every 8 hours For UTI 500mg 01/30 Inactiv e 2023 71783 68070 1 Every 8 hours By Mouth False Aspirin 81 mg chewable tablet [generic] 81 mg By Mouth Once daily For AAA 81 mg 2023 Active 2023 03206 27252 6 Once daily By Mouth False Colace 100 mg capsule 100mg By Mouth Twice daily For constipation 100mg 2023 Active 2023 43622 71918 1 Twice daily By Mouth False Enoxaparin 300 mg/3 mL subcutaneou s solution [generic] 20mg Subcutaneous Once daily For anticoag. 20mg 02/06 Inactiv e 2023 22817 57144 1 Once daily Subcut aneous False Losartan 50 mg tablet [generic] 50 By Mouth Once daily For HTN 50 02/16 Inactiv e 2023 36223 45983 9 Once daily By Mouth False Miralax 17 gram/dose oral powder 17 gram By Mouth Once daily For contispation 17 gram 02/17 Inactiv e 2023 94256 48536 0 Once daily By Mouth False Senna 8.6 mg tablet 2 tabs By Mouth Once daily For constipation 2 tabs 02/17 Inactiv e 2023 98761 27816 1 Once daily By Mouth False Simvastatin 20 mg tablet [generic] 20 mg By Mouth Once daily For Hyperlipidemi a 20 mg 2023 Active 2023 48386 63625 0 Once daily By Mouth False Spiriva with HandiHaler 18 mcg and inhalation capsules 1 capsule Inhalation Once daily For COPD 1 capsule 2023 Active 2023 09934 95001 1 Once daily Inhala tion False Ventolin HFA 90 mcg/actuati on aerosol inhaler 2 puff Inhalation Every 4 hours as needed For COPD 2 puff 2023 Active 2023 68771 76726 0 Every 4 hours as needed Inhala tion False ProSource No Carb 15 gram-60 kcal/30 mL oral liquid 30ml By Mouth Twice daily For Protien supplement 30ml 01/30 Inactiv e 2023 51578 53526 5 Twice daily By Mouth False Albuterol sulfate 2.5 mg/3 mL (0.083 %) solution for nebulizatio n [generic] 3 ml Inhalation Every 6 hours as needed For wheezing 3 ml 2023 Active 2023 59254 36424 3 Every 6 hours as needed Inhala tion False Acetaminoph en 325 mg tablet [generic] 650 mg By Mouth Every 6 hours For Mild Pain 650 mg 01/29 Inactiv e 2023 90360 58597 0 Every 6 hours By Mouth False Tylenol 325 mg tablet 2 tabs By Mouth Every 4 hours as needed For Pain DO NOT EXCEED 3000 MG APAP/24 Hours 2 tabs 2023 Active 2023 44594 81176 0 Every 4 hours as needed By Mouth False Tylenol 325 mg tablet 2 tabs By Mouth Every 4 hours as needed For Fever >100 DO NOT EXCEED 3000 MG APAP/24 Hours 2 tabs 2023 Active 2023 29687 52067 0 Every 4 hours as needed By Mouth False Dulcolax (bisacodyl) 10 mg rectal suppository One Suppository per rectum PRN if Milk of Magnisia ineffective. Give on day 5 of no BM 1 sup 2023 Active 2023 54595 62925 1 Daily as needed Rectal False Fleet Enema 19 gram-7 gram/118 mL Administer per rectum PRN one time if dulcolax suppository not effective. Give on day 6 of no BM 1 2023 Active 2023 75051 05731 6 Daily as needed Rectal False Milk of Magnesia 400 mg/5 mL oral suspension [Magnesium hydroxide] PRN 30ml By Mouth Daily as needed for constipation one time daily if no BM, on day 4 of no BM (PRN refer to instructions) For Constipation 30 mL 2023 Active 2023 11492 53070 6 Daily as needed By Mouth False Oxycodone 5 mg tablet [generic] 01/29 Inactiv e 2023 18000 22087 1 Oxycodone 5 mg tablet [generic] 5mg By Mouth Every 4 hours as needed for severe pain for pain rate 7-10. For right pubis fracture 5mg 01/31 Inactiv e 2023 00024 34497 1 Every 4 hours as needed By Mouth False Cymbalta 30 mg capsule,del ayed release 30 mg By Mouth Once daily For Depression 30 mg 02/04 Inactiv e 2023 33902 23001 0 Once daily By Mouth False Acetaminoph en 500 mg tablet [generic] 1000 mg By Mouth Twice daily not to exceed 3gm APAP in 24 hours For Pain 1000 mg 2023 Active 2023 27841 73017 8 Twice daily By Mouth False Healthshake 118 ml BID 118 ml By Mouth Twice daily Healthshake 118 ml BID For MNA of 7 - malnourished - please record total ml consumed 118 ml 2023 Active 2023 Twice daily By Mouth False Oxycodone 5 mg tablet [generic] 01/31 Inactiv e 2023 92262 71593 1 Oxycodone 5 mg tablet [generic] 5mg By Mouth Every 4 hours as needed for severe pain for pain rate 7-10. For right pubis fracture 5mg 02/01 Inactiv e 2023 28362 30063 1 Every 4 hours as needed By Mouth False Oxycodone 5 mg tablet [generic] 5mg By Mouth Every 4 hours as needed for severe pain 7-10 For right pubis fx 5mg 2023 Active 2023 62731 15910 1 Every 4 hours as needed By Mouth False Cymbalta 60 mg capsule,del ayed release 60mg Once daily depression 60mg 2023 Active 2023 10134 89548 0 Once daily By Mouth False Enoxaparin 40 mg/0.4 mL subcutaneou s syringe [generic] 20mg Subcutaneous Once daily For anticoag 20mg 2023 Active 2023 23404 02052 0 Once daily Subcut aneous False Losartan 50 mg tablet [generic] 75 mg By Mouth Once daily For ESSENTIAL (PRIMARY) HYPERTENSION 75 mg 02/17 Inactiv e 2023 00456 03476 9 Once daily By Mouth I10. False Losartan 50 mg tablet [generic] 75 mg By Mouth ( 1.5 TABS) Once daily For ESSENTIAL (PRIMARY) HYPERTENSION 75 mg 2023 Active 2023 44325 96492 9 Once daily By Mouth I10. False Senna 8.6 mg tablet 2 tabs By Mouth Once daily As Needed For constipation 2 tabs 2023 Active 2023 48182 58301 1 Once daily By Mouth False Miralax 17 gram/dose oral powder 17 gram By Mouth As Needed For contispation 17 gram 2023 Active 2023 54777 08541 0 By Mouth False Problems Code Description [...] Temperature SpO2 Blood Sugar Pulse Respirations 210 37287 7 78.00 mm[Hg] - Lying Down 186.00 mm[Hg] - Lying Down 109.80 NI 97.90 Forehead Scan 91.00 % 92.00/ min 18.00/min 210 03656 1 74.00 mm[Hg] - Lying Down 147.00 mm[Hg] - Lying Down 85.00/ min 211 56736 2 72.00 mm[Hg] - Sitting 138.00 mm[Hg] - Sitting 98.40 Tympanic 86.00/ min 18.00/min 14866 211 07474 2 59.00 mm[Hg] - Sitting 117.00 mm[Hg] - Sitting 98.20 Tympanic 99.00 % 81.00/ min 18.00/min 23174 211 11385 5 69.00 mm[Hg] - Sitting 145.00 mm[Hg] - Sitting 65336 211 27682 9 69.00 mm[Hg] - Sitting 145.00 mm[Hg] - Sitting 70890 211 35743 5 69.00 mm[Hg] - Sitting 145.00 mm[Hg] - Sitting 34252 211 88495 6 69.00 mm[Hg] - Sitting 85159 212 23887 7 59.00 mm[Hg] - Sitting 117.00 mm[Hg] - Sitting 98.20 Tympanic 81.00/ min 18.00/min 29740 212 93660 9 97.80 Tympanic 76830 212 93124 6 55.00 mm[Hg] - Sitting 109.00 mm[Hg] - Sitting 97.30 Tympanic 94.00 % 75.00/ min 18.00/min 23522 212 96323 5 68.00 mm[Hg] - Sitting 128.00 mm[Hg] - Sitting 97.80 Tympanic 80.00/ min 18.00/min 47119 212 98488 4 97.50 Tympanic 44628 212 48880 9 61326 212 15053 6 71.00 mm[Hg] - Sitting 117.00 mm[Hg] - Sitting 05230 213 69479 0 60.00 mm[Hg] - Sitting 116.00 mm[Hg] - Sitting 98.40 Forehead Scan 94.00 % 72.00/ min 16.00/min 54427 213 30160 7 70.00 mm[Hg] - Sitting 118.00 mm[Hg] - Sitting 98.00 Tympanic 82.00/ min 18.00/min 22318 213 17093 3 97.90 Tympanic 87019 213 73090 5 73.00 mm[Hg] - Lying Down 127.00 mm[Hg] - Lying Down 51963 213 44401 3 28513 214 94837 1 62.00 mm[Hg] - Sitting 127.00 mm[Hg] - Sitting 97.80 Tympanic 94.00 % 72.00/ min 16.00/min 04923 214 08489 4 59.00 mm[Hg] - Lying Down 113.00 mm[Hg] - Lying Down 34010 215 10751 0 56.00 mm[Hg] - Sitting 101.00 mm[Hg] - Sitting 97.80 Tympanic 95.00 % 71.00/ min 16.00/min 26362 215 75134 5 62 [place] [address] 215 07277 8 57.00 mm[Hg] - Lying Down 113.00 mm[Hg] - Lying Down 06412 216 40519 3 71.00 mm[Hg] - Sitting 161.00 mm[Hg] - Sitting 98.10 Tympanic 93.00 % 81.00/ min 16.00/min 216 40469 1 72.00 mm[Hg] - Sitting 115.00 mm[Hg] - Sitting 83176 217 98536 2 84401 217 94732 4 62.00 mm[Hg] - Sitting 112.00 mm[Hg] - Sitting 52767 217 14997 3 57.00 mm[Hg] - Sitting 114.00 mm[Hg] - Sitting 98.30 Tympanic 98.00 % 78.00/ min 20.00/min 217 39760 4 62.00 mm[Hg] - Lying Down 111.00 mm[Hg] - Lying Down 36283 218 74847 0 70.00 mm[Hg] - Sitting 158.00 mm[Hg] - Sitting 97.60 Tympanic 97.00 % 68.00/ min 18.00/min 17406 218 04232 5 65.00 mm[Hg] - Lying Down 113.00 mm[Hg] - Lying Down 89575 219 59577 1 67.00 mm[Hg] - Sitting 112.00 mm[Hg] - Sitting 04027 220 79912 0 82.00 mm[Hg] - Sitting 160.00 mm[Hg] - Sitting 97.90 Forehead Scan 95.00 % 87.00/ min 16.00/min 92701 220 88276 7 69.00 mm[Hg] - Sitting 119.00 mm[Hg] - Sitting 45217 221 82579 1 82.00 mm[Hg] - Sitting 156.00 mm[Hg] - Sitting 98.20 Tympanic 95.00 % 72.00/ min 18.00/min 45202 221 42928 1 78.00 mm[Hg] - Sitting 148.00 mm[Hg] - Sitting 81624 222 01051 0 81.00 mm[Hg] - Sitting 161.00 mm[Hg] - Sitting 97.70 Tympanic 94.00 % 80.00/ min 18.00/min 222 26521 3 87.00 mm[Hg] - Sitting 141.00 mm[Hg] - Sitting 223 77172 9 68.00 mm[Hg] - Sitting 138.00 mm[Hg] - Sitting 98.10 Tympanic 92.00 % 85.00/ min 18.00/min 223 22467 4 67.00 mm[Hg] - Sitting 128.00 mm[Hg] - Sitting 224 81111 6 224 77750 5 73.00 mm[Hg] - Lying Down 151.00 mm[Hg] - Lying Down 98.40 Tympanic 95.00 % 75.00/ min 18.00/min 224 81456 3 63.00 mm[Hg] - Sitting 124.00 mm[Hg] - Sitting 225 88268 1 97.30 Tympanic 95.00 % 72.00/ min 20.00/min 225 32735 6 67.00 mm[Hg] - Sitting 132.00 mm[Hg] - Sitting 226 05593 2 67.00 mm[Hg] - Sitting 121.00 mm[Hg] - Sitting 227 13986 0 70.00 mm[Hg] - Sitting 137.00 mm[Hg] - Sitting 98.70 Forehead Scan 96.00 % 70.00/ min 16.00/min 227 71684 6 69.00 mm[Hg] - Sitting 131.00 mm[Hg] - Sitting 228 29213 7 79.00 mm[Hg] - Lying Down 181.00 mm[Hg] - Lying Down 98.40 Tympanic 98.00 % 75.00/ min 20.00/min 34390 228 89838 1 68.00 mm[Hg] - Lying Down 130.00 mm[Hg] - Lying Down 229 22544 6 80.00 mm[Hg] - Lying Down 183.00 mm[Hg] - Lying Down 98.60 Tympanic 97.00 % 75.00/ min 16.00/min 229 33848 4 74.00 mm[Hg] - Lying Down 161.00 mm[Hg] - Lying Down 77.00/ min 229 54984 9 87.00 mm[Hg] - Sitting 175.00 mm[Hg] - Sitting 230 08716 7 83.00 mm[Hg] - Sitting 186.00 mm[Hg] - Sitting 98.30 Tympanic 94.00 % 86.00/ min 18.00/min 230 40444 6 70.00 mm[Hg] - Sitting 125.00 mm[Hg] - Sitting 231 29348 8 231 58595 4 77.00 mm[Hg] - Sitting 159.00 mm[Hg] - Sitting 98.70 Tympanic 95.00 % 78.00/ min 18.00/min 231 18005 8 77.00 mm[Hg] - Sitting 139.00 mm[Hg] - Sitting
--- OUTSIDE RECORDS SUMMARY | 2024-04-10 03:16 | External Medical Summary | Continuity Of Care Document ---
Author Name Unknown Address [address] [address] Organization [facility] () Care Team Providers Care Oil Field Tester Name Role Phone DO Alonso Amy Primary Care Provider [phone] Allergies Allergy Reaction Start Date End Date [...] 3 0.1 mL 01/29 Inactiv e 2023 74028 63465 0 1 time Intrad ermal False Tubersol 5 tub. unit/0.1 mL intradermal injection solution [Tuberculin PPD] 0.1mL Intradermal 1 time For PPD 2nd Step Give 2nd Step PPD Day 1 and Read results Day 3 (schedule 7 days after 1st READ) 0.1mL 02/07 Inactiv e 2023 23520 43791 0 1 time Intrad ermal False Oxycodone 5 mg tablet [generic] 5mg By Mouth Every 4 hours as needed for severe pain for pain rate 7-10. For right pubis fracture 5mg 01/27 Inactiv e 2023 41802 73527 1 Every 4 hours as needed By Mouth False OXYCODONE 5 MG TABLET [GENERIC]IM MEDIATE RELEASE 2.5mg By Mouth Every 4 hours as needed tablet po for moderate pain, pain rate 4-6 on pain scale 1-10. For pain 2.5mg 01/27 Inactiv e 2023 Every 4 hours as needed By Mouth False Oxycodone 5 mg tablet [generic] 01/27 Inactiv e 2023 72056 90983 1 Oxycodone 5 mg tablet [generic] 5mg By Mouth Every 4 hours as needed for severe pain for pain rate 7-10. For right pubis fracture 5mg 01/29 Inactiv e 2023 17219 61106 1 Every 4 hours as needed By [...] For Muscle spasms 175mg 2023 Active 2023 06056 31460 1 Every 6 hours as needed By Mouth False Cephalexin 500 mg capsule [generic] 500mg By Mouth Every 8 hours For UTI 500mg 01/30 Inactiv e 2023 99393 17596 1 Every 8 hours By Mouth False Aspirin 81 mg chewable tablet [generic] 81 mg By Mouth Once daily For AAA 81 mg 2023 Active 2023 60182 37336 6 Once daily By Mouth False Colace 100 mg capsule 100mg By Mouth Twice daily For constipation 100mg 2023 Active 2023 48229 19928 1 Twice daily By Mouth False Enoxaparin 300 mg/3 mL subcutaneou s solution [generic] 20mg Subcutaneous Once daily For anticoag. 20mg 02/06 Inactiv e 2023 37253 82179 1 Once daily Subcut aneous False Losartan 50 mg tablet [generic] 50 By Mouth Once daily For HTN 50 2023 Active 2023 15690 77190 9 Once daily By Mouth False Miralax 17 gram/dose oral powder 17 gram By Mouth Once daily For contispation 17 gram 2023 Active 2023 26188 57969 0 Once daily By Mouth False Senna 8.6 mg tablet 2 tabs By Mouth Once daily For constipation 2 tabs 2023 Active 2023 23520 17679 1 Once daily By Mouth False Simvastatin 20 mg tablet [generic] 20 mg By Mouth Once daily For Hyperlipidemi a 20 mg 2023 Active 2023 20665 55661 0 Once daily By Mouth False Spiriva with HandiHaler 18 mcg and inhalation capsules 1 capsule Inhalation Once daily For COPD 1 capsule 2023 Active 2023 13558 65948 1 Once daily Inhala tion False Ventolin HFA 90 mcg/actuati on aerosol inhaler 2 puff Inhalation Every 4 hours as needed For COPD 2 puff 2023 Active 2023 38165 50866 0 Every 4 hours as needed Inhala tion False ProSource No Carb 15 gram-60 kcal/30 mL oral liquid 30ml By Mouth Twice daily For Protien supplement 30ml 01/30 Inactiv e 2023 42687 03196 5 Twice daily By Mouth False Albuterol sulfate 2.5 mg/3 mL (0.083 %) solution for nebulizatio n [generic] 3 ml Inhalation Every 6 hours as needed For wheezing 3 ml 2023 Active 2023 73847 23316 3 Every 6 hours as needed Inhala tion False Acetaminoph en 325 mg tablet [generic] 650 mg By Mouth Every 6 hours For Mild Pain 650 mg 01/29 Inactiv e 2023 52607 50755 0 Every 6 hours By Mouth False Tylenol 325 mg tablet 2 tabs By Mouth Every 4 hours as needed For Pain DO NOT EXCEED 3000 MG APAP/24 Hours 2 tabs 2023 Active 2023 58446 98559 0 Every 4 hours as needed By Mouth False Tylenol 325 mg tablet 2 tabs By Mouth Every 4 hours as needed For Fever >100 DO NOT EXCEED 3000 MG APAP/24 Hours 2 tabs 2023 Active 2023 43831 94346 0 Every 4 hours as needed By Mouth False Dulcolax (bisacodyl) 10 mg rectal suppository One Suppository per rectum PRN if Milk of Magnisia ineffective. Give on day 5 of no BM 1 sup 2023 Active 2023 09822 23272 1 Daily as needed Rectal False Fleet Enema 19 gram-7 gram/118 mL Administer per rectum PRN one time if dulcolax suppository not effective. Give on day 6 of no BM 1 2023 Active 2023 95513 16751 6 Daily as needed Rectal False Milk of Magnesia 400 mg/5 mL oral suspension [Magnesium hydroxide] PRN 30ml By Mouth Daily as needed for constipation one time daily if no BM, on day 4 of no BM (PRN refer to instructions) For Constipation 30 mL 2023 Active 2023 50077 47061 6 Daily as needed By Mouth False Oxycodone 5 mg tablet [generic] 01/29 Inactiv e 2023 88374 38779 1 Oxycodone 5 mg tablet [generic] 5mg By Mouth Every 4 hours as needed for severe pain for pain rate 7-10. For right pubis fracture 5mg 01/31 Inactiv e 2023 82446 18196 1 Every 4 hours as needed By Mouth False Cymbalta 30 mg capsule,del ayed release 30 mg By Mouth Once daily For Depression 30 mg 02/04 Inactiv e 2023 55989 53661 0 Once daily By Mouth False Acetaminoph en 500 mg tablet [generic] 1000 mg By Mouth Twice daily not to exceed 3gm APAP in 24 hours For Pain 1000 mg 2023 Active 2023 74735 80163 8 Twice daily By Mouth False Healthshake 118 ml BID 118 ml By Mouth Twice daily Healthshake 118 ml BID For MNA of 7 - malnourished - please record total ml consumed 118 ml 2023 Active 2023 Twice daily By Mouth False Oxycodone 5 mg tablet [generic] 01/31 Inactiv e 2023 80150 30032 1 Oxycodone 5 mg tablet [generic] 5mg By Mouth Every 4 hours as needed for severe pain for pain rate 7-10. For right pubis fracture 5mg 02/01 Inactiv e 2023 54311 10048 1 Every 4 hours as needed By Mouth False Oxycodone 5 mg tablet [generic] 5mg By Mouth Every 4 hours as needed for severe pain 7-10 For right pubis fx 5mg 2023 Active 2023 44958 93330 1 Every 4 hours as needed By Mouth False Cymbalta 60 mg capsule,del ayed release 60mg Once daily depression 60mg 2023 Active 2023 66161 14725 0 Once daily By Mouth False Enoxaparin 40 mg/0.4 mL subcutaneou s syringe [generic] 20mg Subcutaneous Once daily For anticoag 20mg 2023 Active 2023 42067 38921 0 Once daily Subcut aneous False Problems [...] Temperature SpO2 Blood Sugar Pulse Respirations 210 45767 7 78.00 mm[Hg] - Lying Down 186.00 mm[Hg] - Lying Down 109.80 NI 97.90 Forehead Scan 91.00 % 92.00/ min 18.00/min 210 37824 1 74.00 mm[Hg] - Lying Down 147.00 mm[Hg] - Lying Down 85.00/ min 211 17483 2 72.00 mm[Hg] - Sitting 138.00 mm[Hg] - Sitting 98.40 Tympanic 86.00/ min 18.00/min 211 48977 2 59.00 mm[Hg] - Sitting 117.00 mm[Hg] - Sitting 98.20 Tympanic 99.00 % 81.00/ min 18.00/min 211 45658 5 69.00 mm[Hg] - Sitting 145.00 mm[Hg] - Sitting 211 57620 9 69.00 mm[Hg] - Sitting 145.00 mm[Hg] - Sitting 211 77572 5 69.00 mm[Hg] - Sitting 145.00 mm[Hg] - Sitting 211 93848 6 69.00 mm[Hg] - Sitting 212 70789 7 59.00 mm[Hg] - Sitting 117.00 mm[Hg] - Sitting 98.20 Tympanic 81.00/ min 18.00/min 212 02399 9 97.80 Tympanic 52346 6 55.00 mm[Hg] - Sitting 109.00 mm[Hg] - Sitting 97.30 Tympanic 94.00 % 75.00/ min 18.00/min 25108 212 03803 5 68.00 mm[Hg] - Sitting 128.00 mm[Hg] - Sitting 97.80 Tympanic 80.00/ min 18.00/min 85439 212 39672 4 97.50 Tympanic 18207 212 17893 9 03895 212 45284 6 71.00 mm[Hg] - Sitting 117.00 mm[Hg] - Sitting 70409 213 31777 0 60.00 mm[Hg] - Sitting 116.00 mm[Hg] - Sitting 98.40 Forehead Scan 94.00 % 72.00/ min 16.00/min 32852 213 76636 7 70.00 mm[Hg] - Sitting 118.00 mm[Hg] - Sitting 98.00 Tympanic 82.00/ min 18.00/min 90885 213 13235 3 97.90 Tympanic 92653 213 06943 5 73.00 mm[Hg] - Lying Down 127.00 mm[Hg] - Lying Down 84138 213 55668 3 40579 214 45502 1 62.00 mm[Hg] - Sitting 127.00 mm[Hg] - Sitting 97.80 Tympanic 94.00 % 72.00/ min 16.00/min 40880 214 29570 4 59.00 mm[Hg] - Lying Down 113.00 mm[Hg] - Lying Down 60921 215 37584 0 56.00 mm[Hg] - Sitting 101.00 mm[Hg] - Sitting 97.80 Tympanic 95.00 % 71.00/ min 16.00/min 76884 215 34468 5 62 NI 71365 215 78431 8 57.00 mm[Hg] - Lying Down 113.00 mm[Hg] - Lying Down 51488 216 27646 3 71.00 mm[Hg] - Sitting 161.00 mm[Hg] - Sitting 98.10 Tympanic 93.00 % 81.00/ min 16.00/min 22420 216 36561 1 72.00 mm[Hg] - Sitting 115.00 mm[Hg] - Sitting 63239 217 50019 2 64635 217 91692 4 62.00 mm[Hg] - Sitting 112.00 mm[Hg] - Sitting 70084 217 32239 3 57.00 mm[Hg] - Sitting 114.00 mm[Hg] - Sitting 98.30 Tympanic 98.00 % 78.00/ min 20.00/min 31693 217 49739 4 62.00 mm[Hg] - Lying Down 111.00 mm[Hg] - Lying Down 21764 218 85065 0 70.00 mm[Hg] - Sitting 158.00 mm[Hg] - Sitting 97.60 Tympanic 97.00 % 68.00/ min 18.00/min 86137 218 78434 5 65.00 mm[Hg] - Lying Down 113.00 mm[Hg] - Lying Down 80070 219 33851 1 67.00 mm[Hg] - Sitting 112.00 mm[Hg] - Sitting 22245 220 94778 0 82.00 mm[Hg] - Sitting 160.00 mm[Hg] - Sitting 97.90 Forehead Scan 95.00 % 87.00/ min 16.00/min 21457 220 13912 7 69.00 mm[Hg] - Sitting 119.00 mm[Hg] - Sitting 19782 221 25446 1 82.00 mm[Hg] - Sitting 156.00 mm[Hg] - Sitting 98.20 Tympanic 95.00 % 72.00/ min 18.00/min 70786 221 74114 1 78.00 mm[Hg] - Sitting 148.00 mm[Hg] - Sitting 52069 222 64959 0 81.00 mm[Hg] - Sitting 161.00 mm[Hg] - Sitting 97.70 Tympanic 94.00 % 80.00/ min 18.00/min 25484 222 87850 3 87.00 mm[Hg] - Sitting 141.00 mm[Hg] - Sitting 72630 223 52768 9 68.00 mm[Hg] - Sitting 138.00 mm[Hg] - Sitting 98.10 Tympanic 92.00 % 85.00/ min 18.00/min 77212 223 62362 4 67.00 mm[Hg] - Sitting 128.00 mm[Hg] - Sitting 36281 224 57382 6 76453 224 00955 5 73.00 mm[Hg] - Lying Down 151.00 mm[Hg] - Lying Down 98.40 Tympanic 95.00 % 75.00/ min 18.00/min 11627 224 74030 3 63.00 mm[Hg] - Sitting 124.00 mm[Hg] - Sitting
--- OUTSIDE RECORDS SUMMARY | 2024-04-10 03:16 | External Medical Summary | Continuity Of Care Document ---
Author Name Unknown Address [address] [address] Organization [facility] () Care Team Providers Care Inside Outside Sales Representative Name Role Phone DO Alonso Amy Primary Care Provider [phone] Allergies Allergy Reaction Start Date End Date [...] 3 0.1 mL 01/29 Inactiv e 2023 14064 22733 0 1 time Intrad ermal False Tubersol 5 tub. unit/0.1 mL intradermal injection solution [Tuberculin PPD] 0.1mL Intradermal 1 time For PPD 2nd Step Give 2nd Step PPD Day 1 and Read results Day 3 (schedule 7 days after 1st READ) 0.1mL 02/07 Inactiv e 2023 42585 26934 0 1 time Intrad ermal False Oxycodone 5 mg tablet [generic] 5mg By Mouth Every 4 hours as needed for severe pain for pain rate 7-10. For right pubis fracture 5mg 01/27 Inactiv e 2023 13498 77316 1 Every 4 hours as needed By Mouth False OXYCODONE 5 MG TABLET [GENERIC]IM MEDIATE RELEASE 2.5mg By Mouth Every 4 hours as needed tablet po for moderate pain, pain rate 4-6 on pain scale 1-10. For pain 2.5mg 01/27 Inactiv e 2023 Every 4 hours as needed By Mouth False Oxycodone 5 mg tablet [generic] 01/27 Inactiv e 2023 47248 41934 1 Oxycodone 5 mg tablet [generic] 5mg By Mouth Every 4 hours as needed for severe pain for pain rate 7-10. For right pubis fracture 5mg 01/29 Inactiv e 2023 36232 13755 1 Every 4 hours as needed By [...] For Muscle spasms 175mg 2023 Active 2023 77678 28208 1 Every 6 hours as needed By Mouth False Cephalexin 500 mg capsule [generic] 500mg By Mouth Every 8 hours For UTI 500mg 01/30 Inactiv e 2023 03391 42961 1 Every 8 hours By Mouth False Aspirin 81 mg chewable tablet [generic] 81 mg By Mouth Once daily For AAA 81 mg 2023 Active 2023 37962 35042 6 Once daily By Mouth False Colace 100 mg capsule 100mg By Mouth Twice daily For constipation 100mg 2023 Active 2023 18025 74945 1 Twice daily By Mouth False Enoxaparin 300 mg/3 mL subcutaneou s solution [generic] 20mg Subcutaneous Once daily For anticoag. 20mg 02/06 Inactiv e 2023 76986 55023 1 Once daily Subcut aneous False Losartan 50 mg tablet [generic] 50 By Mouth Once daily For HTN 50 2023 Active 2023 53304 21208 9 Once daily By Mouth False Miralax 17 gram/dose oral powder 17 gram By Mouth Once daily For contispation 17 gram 2023 Active 2023 23108 69857 0 Once daily By Mouth False Senna 8.6 mg tablet 2 tabs By Mouth Once daily For constipation 2 tabs 2023 Active 2023 23897 04703 1 Once daily By Mouth False Simvastatin 20 mg tablet [generic] 20 mg By Mouth Once daily For Hyperlipidemi a 20 mg 2023 Active 2023 36118 75333 0 Once daily By Mouth False Spiriva with HandiHaler 18 mcg and inhalation capsules 1 capsule Inhalation Once daily For COPD 1 capsule 2023 Active 2023 31401 42685 1 Once daily Inhala tion False Ventolin HFA 90 mcg/actuati on aerosol inhaler 2 puff Inhalation Every 4 hours as needed For COPD 2 puff 2023 Active 2023 39218 84689 0 Every 4 hours as needed Inhala tion False ProSource No Carb 15 gram-60 kcal/30 mL oral liquid 30ml By Mouth Twice daily For Protien supplement 30ml 01/30 Inactiv e 2023 90164 58172 5 Twice daily By Mouth False Albuterol sulfate 2.5 mg/3 mL (0.083 %) solution for nebulizatio n [generic] 3 ml Inhalation Every 6 hours as needed For wheezing 3 ml 2023 Active 2023 33224 13174 3 Every 6 hours as needed Inhala tion False Acetaminoph en 325 mg tablet [generic] 650 mg By Mouth Every 6 hours For Mild Pain 650 mg 01/29 Inactiv e 2023 17258 54094 0 Every 6 hours By Mouth False Tylenol 325 mg tablet 2 tabs By Mouth Every 4 hours as needed For Pain DO NOT EXCEED 3000 MG APAP/24 Hours 2 tabs 2023 Active 2023 78625 00761 0 Every 4 hours as needed By Mouth False Tylenol 325 mg tablet 2 tabs By Mouth Every 4 hours as needed For Fever >100 DO NOT EXCEED 3000 MG APAP/24 Hours 2 tabs 2023 Active 2023 45008 98390 0 Every 4 hours as needed By Mouth False Dulcolax (bisacodyl) 10 mg rectal suppository One Suppository per rectum PRN if Milk of Magnisia ineffective. Give on day 5 of no BM 1 sup 2023 Active 2023 42423 90862 1 Daily as needed Rectal False Fleet Enema 19 gram-7 gram/118 mL Administer per rectum PRN one time if dulcolax suppository not effective. Give on day 6 of no BM 1 2023 Active 2023 38976 35780 6 Daily as needed Rectal False Milk of Magnesia 400 mg/5 mL oral suspension [Magnesium hydroxide] PRN 30ml By Mouth Daily as needed for constipation one time daily if no BM, on day 4 of no BM (PRN refer to instructions) For Constipation 30 mL 2023 Active 2023 59338 94921 6 Daily as needed By Mouth False Oxycodone 5 mg tablet [generic] 01/29 Inactiv e 2023 03102 74532 1 Oxycodone 5 mg tablet [generic] 5mg By Mouth Every 4 hours as needed for severe pain for pain rate 7-10. For right pubis fracture 5mg 01/31 Inactiv e 2023 85481 84964 1 Every 4 hours as needed By Mouth False Cymbalta 30 mg capsule,del ayed release 30 mg By Mouth Once daily For Depression 30 mg 02/04 Inactiv e 2023 00587 08429 0 Once daily By Mouth False Acetaminoph en 500 mg tablet [generic] 1000 mg By Mouth Twice daily not to exceed 3gm APAP in 24 hours For Pain 1000 mg 2023 Active 2023 27743 18582 8 Twice daily By Mouth False Healthshake 118 ml BID 118 ml By Mouth Twice daily Healthshake 118 ml BID For MNA of 7 - malnourished - please record total ml consumed 118 ml 2023 Active 2023 Twice daily By Mouth False Oxycodone 5 mg tablet [generic] 01/31 Inactiv e 2023 23847 67978 1 Oxycodone 5 mg tablet [generic] 5mg By Mouth Every 4 hours as needed for severe pain for pain rate 7-10. For right pubis fracture 5mg 02/01 Inactiv e 2023 68802 29447 1 Every 4 hours as needed By Mouth False Oxycodone 5 mg tablet [generic] 5mg By Mouth Every 4 hours as needed for severe pain 7-10 For right pubis fx 5mg 2023 Active 2023 72768 56594 1 Every 4 hours as needed By Mouth False Cymbalta 60 mg capsule,del ayed release 60mg Once daily depression 60mg 2023 Active 2023 28116 60318 0 Once daily By Mouth False Enoxaparin 40 mg/0.4 mL subcutaneou s syringe [generic] 20mg Subcutaneous Once daily For anticoag 20mg 2023 Active 2023 08169 32785 0 Once daily Subcut aneous False Problems [...] Temperature SpO2 Blood Sugar Pulse Respirations 210 72758 7 78.00 mm[Hg] - Lying Down 186.00 mm[Hg] - Lying Down 109.80 NI 97.90 Forehead Scan 91.00 % 92.00/ min 18.00/min 210 61148 1 74.00 mm[Hg] - Lying Down 147.00 mm[Hg] - Lying Down 85.00/ min 211 32917 2 72.00 mm[Hg] - Sitting 138.00 mm[Hg] - Sitting 98.40 Tympanic 86.00/ min 18.00/min 211 09630 2 59.00 mm[Hg] - Sitting 117.00 mm[Hg] - Sitting 98.20 Tympanic 99.00 % 81.00/ min 18.00/min 211 83215 5 69.00 mm[Hg] - Sitting 145.00 mm[Hg] - Sitting 211 34903 9 69.00 mm[Hg] - Sitting 145.00 mm[Hg] - Sitting 211 95034 5 69.00 mm[Hg] - Sitting 145.00 mm[Hg] - Sitting 211 87780 6 69.00 mm[Hg] - Sitting 212 60994 7 59.00 mm[Hg] - Sitting 117.00 mm[Hg] - Sitting 98.20 Tympanic 81.00/ min 18.00/min 212 53058 9 97.80 Tympanic 65028 6 55.00 mm[Hg] - Sitting 109.00 mm[Hg] - Sitting 97.30 Tympanic 94.00 % 75.00/ min 18.00/min 98037 212 24287 5 68.00 mm[Hg] - Sitting 128.00 mm[Hg] - Sitting 97.80 Tympanic 80.00/ min 18.00/min 55049 212 36465 4 97.50 Tympanic 67779 212 94125 9 84306 212 07670 6 71.00 mm[Hg] - Sitting 117.00 mm[Hg] - Sitting 72434 213 70639 0 60.00 mm[Hg] - Sitting 116.00 mm[Hg] - Sitting 98.40 Forehead Scan 94.00 % 72.00/ min 16.00/min 83691 213 67048 7 70.00 mm[Hg] - Sitting 118.00 mm[Hg] - Sitting 98.00 Tympanic 82.00/ min 18.00/min 88045 213 74969 3 97.90 Tympanic 56349 213 02739 5 73.00 mm[Hg] - Lying Down 127.00 mm[Hg] - Lying Down 08879 213 38063 3 17349 214 24468 1 62.00 mm[Hg] - Sitting 127.00 mm[Hg] - Sitting 97.80 Tympanic 94.00 % 72.00/ min 16.00/min 72784 214 80587 4 59.00 mm[Hg] - Lying Down 113.00 mm[Hg] - Lying Down 05791 215 99796 0 56.00 mm[Hg] - Sitting 101.00 mm[Hg] - Sitting 97.80 Tympanic 95.00 % 71.00/ min 16.00/min 13224 215 85778 5 62 NI 85785 215 67446 8 57.00 mm[Hg] - Lying Down 113.00 mm[Hg] - Lying Down 34863 216 90464 3 71.00 mm[Hg] - Sitting 161.00 mm[Hg] - Sitting 98.10 Tympanic 93.00 % 81.00/ min 16.00/min 53393 216 29500 1 72.00 mm[Hg] - Sitting 115.00 mm[Hg] - Sitting 19515 217 13513 2 06238 217 91776 4 62.00 mm[Hg] - Sitting 112.00 mm[Hg] - Sitting 03497 217 39806 3 57.00 mm[Hg] - Sitting 114.00 mm[Hg] - Sitting 98.30 Tympanic 98.00 % 78.00/ min 20.00/min 72323 217 07264 4 62.00 mm[Hg] - Lying Down 111.00 mm[Hg] - Lying Down 06711 218 11201 0 70.00 mm[Hg] - Sitting 158.00 mm[Hg] - Sitting 97.60 Tympanic 97.00 % 68.00/ min 18.00/min 74830 218 30843 5 65.00 mm[Hg] - Lying Down 113.00 mm[Hg] - Lying Down 96753 219 45771 1 67.00 mm[Hg] - Sitting 112.00 mm[Hg] - Sitting 09651 220 01987 0 82.00 mm[Hg] - Sitting 160.00 mm[Hg] - Sitting 97.90 Forehead Scan 95.00 % 87.00/ min 16.00/min 88084 220 99496 7 69.00 mm[Hg] - Sitting 119.00 mm[Hg] - Sitting 17906 221 93030 1 82.00 mm[Hg] - Sitting 156.00 mm[Hg] - Sitting 98.20 Tympanic 95.00 % 72.00/ min 18.00/min 64338 221 46955 1 78.00 mm[Hg] - Sitting 148.00 mm[Hg] - Sitting 92613 222 00189 0 81.00 mm[Hg] - Sitting 161.00 mm[Hg] - Sitting 97.70 Tympanic 94.00 % 80.00/ min 18.00/min 19485 222 65590 3 87.00 mm[Hg] - Sitting 141.00 mm[Hg] - Sitting 66838 223 00843 9 68.00 mm[Hg] - Sitting 138.00 mm[Hg] - Sitting 98.10 Tympanic 92.00 % 85.00/ min 18.00/min 23505 223 21890 4 67.00 mm[Hg] - Sitting 128.00 mm[Hg] - Sitting 26829 224 73091 6 75884 224 12557 5 73.00 mm[Hg] - Lying Down 151.00 mm[Hg] - Lying Down 98.40 Tympanic 95.00 % 75.00/ min 18.00/min 50816 224 29504 3 63.00 mm[Hg] - Sitting 124.00 mm[Hg] - Sitting 31707 225 70604 1 97.30 Tympanic 95.00 % 72.00/ min 20.00/min 225 90919 6 67.00 mm[Hg] - Sitting 132.00 mm[Hg] - Sitting 226 22404 2 67.00 mm[Hg] - Sitting 121.00 mm[Hg] - Sitting 227 74455 0 70.00 mm[Hg] - Sitting 137.00 mm[Hg] - Sitting 98.70 Forehead Scan 96.00 % 70.00/ min 16.00/min 227 86564 6 69.00 mm[Hg] - Sitting 131.00 mm[Hg] - Sitting 228 07723 7 79.00 mm[Hg] - Lying Down 181.00 mm[Hg] - Lying Down 98.40 Tympanic 98.00 % 75.00/ min 20.00/min 228 82800 1 68.00 mm[Hg] - Lying Down 130.00 mm[Hg] - Lying Down
--- OUTSIDE RECORDS SUMMARY | 2024-04-10 03:16 | External Medical Summary | Continuity Of Care Document ---
Author Name Unknown Address [address] [address] Organization [facility] () Care Team Providers Care Occupational Health And Safety Manager Name Role Phone DO Alonso Amy Primary Care Provider [phone] Allergies Allergy Reaction Start Date End Date [...] 3 0.1 mL 01/29 Inactiv e 2023 55079 23281 0 1 time Intrad ermal False Tubersol 5 tub. unit/0.1 mL intradermal injection solution [Tuberculin PPD] 0.1mL Intradermal 1 time For PPD 2nd Step Give 2nd Step PPD Day 1 and Read results Day 3 (schedule 7 days after 1st READ) 0.1mL 02/07 Inactiv e 2023 45731 96740 0 1 time Intrad ermal False Oxycodone 5 mg tablet [generic] 5mg By Mouth Every 4 hours as needed for severe pain for pain rate 7-10. For right pubis fracture 5mg 01/27 Inactiv e 2023 64073 41993 1 Every 4 hours as needed By Mouth False OXYCODONE 5 MG TABLET [GENERIC]IM MEDIATE RELEASE 2.5mg By Mouth Every 4 hours as needed tablet po for moderate pain, pain rate 4-6 on pain scale 1-10. For pain 2.5mg 01/27 Inactiv e 2023 Every 4 hours as needed By Mouth False Oxycodone 5 mg tablet [generic] 01/27 Inactiv e 2023 74676 60229 1 Oxycodone 5 mg tablet [generic] 5mg By Mouth Every 4 hours as needed for severe pain for pain rate 7-10. For right pubis fracture 5mg 01/29 Inactiv e 2023 51039 22134 1 Every 4 hours as needed By [...] For Muscle spasms 175mg 2023 Active 2023 91498 14042 1 Every 6 hours as needed By Mouth False Cephalexin 500 mg capsule [generic] 500mg By Mouth Every 8 hours For UTI 500mg 01/30 Inactiv e 2023 98631 89744 1 Every 8 hours By Mouth False Aspirin 81 mg chewable tablet [generic] 81 mg By Mouth Once daily For AAA 81 mg 2023 Active 2023 65326 99867 6 Once daily By Mouth False Colace 100 mg capsule 100mg By Mouth Twice daily For constipation 100mg 2023 Active 2023 50412 01411 1 Twice daily By Mouth False Enoxaparin 300 mg/3 mL subcutaneou s solution [generic] 20mg Subcutaneous Once daily For anticoag. 20mg 02/06 Inactiv e 2023 13821 73110 1 Once daily Subcut aneous False Losartan 50 mg tablet [generic] 50 By Mouth Once daily For HTN 50 02/16 Inactiv e 2023 91952 87104 9 Once daily By Mouth False Miralax 17 gram/dose oral powder 17 gram By Mouth Once daily For contispation 17 gram 2023 Active 2023 18503 82764 0 Once daily By Mouth False Senna 8.6 mg tablet 2 tabs By Mouth Once daily For constipation 2 tabs 2023 Active 2023 36686 79846 1 Once daily By Mouth False Simvastatin 20 mg tablet [generic] 20 mg By Mouth Once daily For Hyperlipidemi a 20 mg 2023 Active 2023 15690 23523 0 Once daily By Mouth False Spiriva with HandiHaler 18 mcg and inhalation capsules 1 capsule Inhalation Once daily For COPD 1 capsule 2023 Active 2023 90156 79522 1 Once daily Inhala tion False Ventolin HFA 90 mcg/actuati on aerosol inhaler 2 puff Inhalation Every 4 hours as needed For COPD 2 puff 2023 Active 2023 39317 89871 0 Every 4 hours as needed Inhala tion False ProSource No Carb 15 gram-60 kcal/30 mL oral liquid 30ml By Mouth Twice daily For Protien supplement 30ml 01/30 Inactiv e 2023 79078 92894 5 Twice daily By Mouth False Albuterol sulfate 2.5 mg/3 mL (0.083 %) solution for nebulizatio n [generic] 3 ml Inhalation Every 6 hours as needed For wheezing 3 ml 2023 Active 2023 88111 36941 3 Every 6 hours as needed Inhala tion False Acetaminoph en 325 mg tablet [generic] 650 mg By Mouth Every 6 hours For Mild Pain 650 mg 01/29 Inactiv e 2023 01248 74178 0 Every 6 hours By Mouth False Tylenol 325 mg tablet 2 tabs By Mouth Every 4 hours as needed For Pain DO NOT EXCEED 3000 MG APAP/24 Hours 2 tabs 2023 Active 2023 86600 01045 0 Every 4 hours as needed By Mouth False Tylenol 325 mg tablet 2 tabs By Mouth Every 4 hours as needed For Fever >100 DO NOT EXCEED 3000 MG APAP/24 Hours 2 tabs 2023 Active 2023 08427 15973 0 Every 4 hours as needed By Mouth False Dulcolax (bisacodyl) 10 mg rectal suppository One Suppository per rectum PRN if Milk of Magnisia ineffective. Give on day 5 of no BM 1 sup 2023 Active 2023 02528 52692 1 Daily as needed Rectal False Fleet Enema 19 gram-7 gram/118 mL Administer per rectum PRN one time if dulcolax suppository not effective. Give on day 6 of no BM 1 2023 Active 2023 73645 24092 6 Daily as needed Rectal False Milk of Magnesia 400 mg/5 mL oral suspension [Magnesium hydroxide] PRN 30ml By Mouth Daily as needed for constipation one time daily if no BM, on day 4 of no BM (PRN refer to instructions) For Constipation 30 mL 2023 Active 2023 44870 57795 6 Daily as needed By Mouth False Oxycodone 5 mg tablet [generic] 01/29 Inactiv e 2023 52806 72820 1 Oxycodone 5 mg tablet [generic] 5mg By Mouth Every 4 hours as needed for severe pain for pain rate 7-10. For right pubis fracture 5mg 01/31 Inactiv e 2023 58301 38397 1 Every 4 hours as needed By Mouth False Cymbalta 30 mg capsule,del ayed release 30 mg By Mouth Once daily For Depression 30 mg 02/04 Inactiv e 2023 89472 68012 0 Once daily By Mouth False Acetaminoph en 500 mg tablet [generic] 1000 mg By Mouth Twice daily not to exceed 3gm APAP in 24 hours For Pain 1000 mg 2023 Active 2023 45069 43982 8 Twice daily By Mouth False Healthshake 118 ml BID 118 ml By Mouth Twice daily Healthshake 118 ml BID For MNA of 7 - malnourished - please record total ml consumed 118 ml 2023 Active 2023 Twice daily By Mouth False Oxycodone 5 mg tablet [generic] 01/31 Inactiv e 2023 38231 01122 1 Oxycodone 5 mg tablet [generic] 5mg By Mouth Every 4 hours as needed for severe pain for pain rate 7-10. For right pubis fracture 5mg 02/01 Inactiv e 2023 96052 27460 1 Every 4 hours as needed By Mouth False Oxycodone 5 mg tablet [generic] 5mg By Mouth Every 4 hours as needed for severe pain 7-10 For right pubis fx 5mg 2023 Active 2023 10536 18865 1 Every 4 hours as needed By Mouth False Cymbalta 60 mg capsule,del ayed release 60mg Once daily depression 60mg 2023 Active 2023 95036 18277 0 Once daily By Mouth False Enoxaparin 40 mg/0.4 mL subcutaneou s syringe [generic] 20mg Subcutaneous Once daily For anticoag 20mg 2023 Active 2023 63623 85341 0 Once daily Subcut aneous False Losartan 50 mg tablet [generic] 75 mg By Mouth Once daily For ESSENTIAL (PRIMARY) HYPERTENSION 75 mg 2023 Active 2023 65022 41960 9 Once daily By Mouth I10. False [...] Temperature SpO2 Blood Sugar Pulse Respirations 210 10128 7 78.00 mm[Hg] - Lying Down 186.00 mm[Hg] - Lying Down 109.80 NI 97.90 Forehead Scan 91.00 % 92.00/ min 18.00/min 210 69077 1 74.00 mm[Hg] - Lying Down 147.00 mm[Hg] - Lying Down 85.00/ min 211 70486 2 72.00 mm[Hg] - Sitting 138.00 mm[Hg] - Sitting 98.40 Tympanic 86.00/ min 18.00/min 211 80815 2 59.00 mm[Hg] - Sitting 117.00 mm[Hg] - Sitting 98.20 Tympanic 99.00 % 81.00/ min 18.00/min 211 69585 5 69.00 mm[Hg] - Sitting 145.00 mm[Hg] - Sitting 211 31946 9 69.00 mm[Hg] - Sitting 145.00 mm[Hg] - Sitting 211 41405 5 69.00 mm[Hg] - Sitting 145.00 mm[Hg] - Sitting 211 00416 6 69.00 mm[Hg] - Sitting 212 20185 7 59.00 mm[Hg] - Sitting 117.00 mm[Hg] - Sitting 98.20 Tympanic 81.00/ min 18.00/min 57831 212 16100 9 97.80 Tympanic 13680 212 75340 6 55.00 mm[Hg] - Sitting 109.00 mm[Hg] - Sitting 97.30 Tympanic 94.00 % 75.00/ min 18.00/min 86460 212 79255 5 68.00 mm[Hg] - Sitting 128.00 mm[Hg] - Sitting 97.80 Tympanic 80.00/ min 18.00/min 57061 212 98593 4 97.50 Tympanic 61964 212 12661 9 56193 212 16439 6 71.00 mm[Hg] - Sitting 117.00 mm[Hg] - Sitting 53143 213 90609 0 60.00 mm[Hg] - Sitting 116.00 mm[Hg] - Sitting 98.40 Forehead Scan 94.00 % 72.00/ min 16.00/min 15600 213 59122 7 70.00 mm[Hg] - Sitting 118.00 mm[Hg] - Sitting 98.00 Tympanic 82.00/ min 18.00/min 59562 213 87656 3 97.90 Tympanic 91804 213 23049 5 73.00 mm[Hg] - Lying Down 127.00 mm[Hg] - Lying Down 33723 213 82140 3 82751 214 56289 1 62.00 mm[Hg] - Sitting 127.00 mm[Hg] - Sitting 97.80 Tympanic 94.00 % 72.00/ min 16.00/min 41336 214 29094 4 59.00 mm[Hg] - Lying Down 113.00 mm[Hg] - Lying Down 90237 215 95030 0 56.00 mm[Hg] - Sitting 101.00 mm[Hg] - Sitting 97.80 Tympanic 95.00 % 71.00/ min 16.00/min 35536 215 32496 5 62 NI [address]03 215 29522 8 57.00 mm[Hg] - Lying Down 113.00 mm[Hg] - Lying Down 50053 216 65620 3 71.00 mm[Hg] - Sitting 161.00 mm[Hg] - Sitting 98.10 Tympanic 93.00 % 81.00/ min 16.00/min 12247 216 03738 1 72.00 mm[Hg] - Sitting 115.00 mm[Hg] - Sitting 41112 217 57054 2 09805 217 43108 4 62.00 mm[Hg] - Sitting 112.00 mm[Hg] - Sitting 39941 217 47213 3 57.00 mm[Hg] - Sitting 114.00 mm[Hg] - Sitting 98.30 Tympanic 98.00 % 78.00/ min 20.00/min 91774 217 77754 4 62.00 mm[Hg] - Lying Down 111.00 mm[Hg] - Lying Down 81116 218 68042 0 70.00 mm[Hg] - Sitting 158.00 mm[Hg] - Sitting 97.60 Tympanic 97.00 % 68.00/ min 18.00/min 74233 218 20426 5 65.00 mm[Hg] - Lying Down 113.00 mm[Hg] - Lying Down 91531 219 72178 1 67.00 mm[Hg] - Sitting 112.00 mm[Hg] - Sitting 220 22991 0 82.00 mm[Hg] - Sitting 160.00 mm[Hg] - Sitting 97.90 Forehead Scan 95.00 % 87.00/ min 16.00/min 91988 220 57334 7 69.00 mm[Hg] - Sitting 119.00 mm[Hg] - Sitting 45801 221 49962 1 82.00 mm[Hg] - Sitting 156.00 mm[Hg] - Sitting 98.20 Tympanic 95.00 % 72.00/ min 18.00/min 53510 221 23557 1 78.00 mm[Hg] - Sitting 148.00 mm[Hg] - Sitting 29995 222 81036 0 81.00 mm[Hg] - Sitting 161.00 mm[Hg] - Sitting 97.70 Tympanic 94.00 % 80.00/ min 18.00/min 84590 222 17471 3 87.00 mm[Hg] - Sitting 141.00 mm[Hg] - Sitting 43425 223 92193 9 68.00 mm[Hg] - Sitting 138.00 mm[Hg] - Sitting 98.10 Tympanic 92.00 % 85.00/ min 18.00/min 01615 223 11251 4 67.00 mm[Hg] - Sitting 128.00 mm[Hg] - Sitting 09210 224 10678 6 89582 224 17324 5 73.00 mm[Hg] - Lying Down 151.00 mm[Hg] - Lying Down 98.40 Tympanic 95.00 % 75.00/ min 18.00/min 02565 224 63755 3 63.00 mm[Hg] - Sitting 124.00 mm[Hg] - Sitting 58913 225 58255 1 97.30 Tympanic 95.00 % 72.00/ min 20.00/min 85842 225 13995 6 67.00 mm[Hg] - Sitting 132.00 mm[Hg] - Sitting 226 76959 2 67.00 mm[Hg] - Sitting 121.00 mm[Hg] - Sitting 03904 227 15166 0 70.00 mm[Hg] - Sitting 137.00 mm[Hg] - Sitting 98.70 Forehead Scan 96.00 % 70.00/ min 16.00/min 227 45729 6 69.00 mm[Hg] - Sitting 131.00 mm[Hg] - Sitting 10768 228 10912 7 79.00 mm[Hg] - Lying Down 181.00 mm[Hg] - Lying Down 98.40 Tympanic 98.00 % 75.00/ min 20.00/min 99602 228 50749 1 68.00 mm[Hg] - Lying Down 130.00 mm[Hg] - Lying Down 98683 229 25214 6 80.00 mm[Hg] - Lying Down 183.00 mm[Hg] - Lying Down 98.60 Tympanic 97.00 % 75.00/ min 16.00/min 20206 229 66710 4 74.00 mm[Hg] - Lying Down 161.00 mm[Hg] - Lying Down 77.00/ min 65033 229 66820 9 87.00 mm[Hg] - Sitting 175.00 mm[Hg] - Sitting 51890 230 46268 7 83.00 mm[Hg] - Sitting 186.00 mm[Hg] - Sitting 98.30 Tympanic 94.00 % 86.00/ min 18.00/min 01382 230 77772 6 70.00 mm[Hg] - Sitting 125.00 mm[Hg] - Sitting
--- OUTSIDE RECORDS SUMMARY | 2024-04-10 03:16 | External Medical Summary | Continuity Of Care Document ---
Author Name Unknown Address [address] [address] Organization [facility] () Care Team Providers Care Gas Meter Repair Supervisor Name Role Phone DO Alonso Amy Primary Care Provider [phone] Allergies Allergy Reaction Start Date End Date [...] 3 0.1 mL 01/29 Inactiv e 2023 68010 19134 0 1 time Intrad ermal False Tubersol 5 tub. unit/0.1 mL intradermal injection solution [Tuberculin PPD] 0.1mL Intradermal 1 time For PPD 2nd Step Give 2nd Step PPD Day 1 and Read results Day 3 (schedule 7 days after 1st READ) 0.1mL 02/07 Inactiv e 2023 47072 71092 0 1 time Intrad ermal False Oxycodone 5 mg tablet [generic] 5mg By Mouth Every 4 hours as needed for severe pain for pain rate 7-10. For right pubis fracture 5mg 01/27 Inactiv e 2023 83612 12789 1 Every 4 hours as needed By Mouth False OXYCODONE 5 MG TABLET [GENERIC]IM MEDIATE RELEASE 2.5mg By Mouth Every 4 hours as needed tablet po for moderate pain, pain rate 4-6 on pain scale 1-10. For pain 2.5mg 01/27 Inactiv e 2023 Every 4 hours as needed By Mouth False Oxycodone 5 mg tablet [generic] 01/27 Inactiv e 2023 55512 83748 1 Oxycodone 5 mg tablet [generic] 5mg By Mouth Every 4 hours as needed for severe pain for pain rate 7-10. For right pubis fracture 5mg 01/29 Inactiv e 2023 08371 71794 1 Every 4 hours as needed By [...] For Muscle spasms 175mg 2023 Active 2023 45718 70026 1 Every 6 hours as needed By Mouth False Cephalexin 500 mg capsule [generic] 500mg By Mouth Every 8 hours For UTI 500mg 01/30 Inactiv e 2023 92216 99463 1 Every 8 hours By Mouth False Aspirin 81 mg chewable tablet [generic] 81 mg By Mouth Once daily For AAA 81 mg 2023 Active 2023 65596 59366 6 Once daily By Mouth False Colace 100 mg capsule 100mg By Mouth Twice daily For constipation 100mg 2023 Active 2023 70928 61756 1 Twice daily By Mouth False Enoxaparin 300 mg/3 mL subcutaneou s solution [generic] 20mg Subcutaneous Once daily For anticoag. 20mg 02/06 Inactiv e 2023 31471 15218 1 Once daily Subcut aneous False Losartan 50 mg tablet [generic] 50 By Mouth Once daily For HTN 50 2023 Active 2023 92307 42348 9 Once daily By Mouth False Miralax 17 gram/dose oral powder 17 gram By Mouth Once daily For contispation 17 gram 2023 Active 2023 22217 19901 0 Once daily By Mouth False Senna 8.6 mg tablet 2 tabs By Mouth Once daily For constipation 2 tabs 2023 Active 2023 78964 07000 1 Once daily By Mouth False Simvastatin 20 mg tablet [generic] 20 mg By Mouth Once daily For Hyperlipidemi a 20 mg 2023 Active 2023 11191 26481 0 Once daily By Mouth False Spiriva with HandiHaler 18 mcg and inhalation capsules 1 capsule Inhalation Once daily For COPD 1 capsule 2023 Active 2023 85710 52649 1 Once daily Inhala tion False Ventolin HFA 90 mcg/actuati on aerosol inhaler 2 puff Inhalation Every 4 hours as needed For COPD 2 puff 2023 Active 2023 53163 11081 0 Every 4 hours as needed Inhala tion False ProSource No Carb 15 gram-60 kcal/30 mL oral liquid 30ml By Mouth Twice daily For Protien supplement 30ml 01/30 Inactiv e 2023 37834 22850 5 Twice daily By Mouth False Albuterol sulfate 2.5 mg/3 mL (0.083 %) solution for nebulizatio n [generic] 3 ml Inhalation Every 6 hours as needed For wheezing 3 ml 2023 Active 2023 49922 95678 3 Every 6 hours as needed Inhala tion False Acetaminoph en 325 mg tablet [generic] 650 mg By Mouth Every 6 hours For Mild Pain 650 mg 01/29 Inactiv e 2023 36692 51241 0 Every 6 hours By Mouth False Tylenol 325 mg tablet 2 tabs By Mouth Every 4 hours as needed For Pain DO NOT EXCEED 3000 MG APAP/24 Hours 2 tabs 2023 Active 2023 14153 64172 0 Every 4 hours as needed By Mouth False Tylenol 325 mg tablet 2 tabs By Mouth Every 4 hours as needed For Fever >100 DO NOT EXCEED 3000 MG APAP/24 Hours 2 tabs 2023 Active 2023 82528 75432 0 Every 4 hours as needed By Mouth False Dulcolax (bisacodyl) 10 mg rectal suppository One Suppository per rectum PRN if Milk of Magnisia ineffective. Give on day 5 of no BM 1 sup 2023 Active 2023 78043 81503 1 Daily as needed Rectal False Fleet Enema 19 gram-7 gram/118 mL Administer per rectum PRN one time if dulcolax suppository not effective. Give on day 6 of no BM 1 2023 Active 2023 54672 01557 6 Daily as needed Rectal False Milk of Magnesia 400 mg/5 mL oral suspension [Magnesium hydroxide] PRN 30ml By Mouth Daily as needed for constipation one time daily if no BM, on day 4 of no BM (PRN refer to instructions) For Constipation 30 mL 2023 Active 2023 73401 11845 6 Daily as needed By Mouth False Oxycodone 5 mg tablet [generic] 01/29 Inactiv e 2023 29592 85695 1 Oxycodone 5 mg tablet [generic] 5mg By Mouth Every 4 hours as needed for severe pain for pain rate 7-10. For right pubis fracture 5mg 01/31 Inactiv e 2023 51661 04824 1 Every 4 hours as needed By Mouth False Cymbalta 30 mg capsule,del ayed release 30 mg By Mouth Once daily For Depression 30 mg 02/04 Inactiv e 2023 59582 38282 0 Once daily By Mouth False Acetaminoph en 500 mg tablet [generic] 1000 mg By Mouth Twice daily not to exceed 3gm APAP in 24 hours For Pain 1000 mg 2023 Active 2023 55619 97330 8 Twice daily By Mouth False Healthshake 118 ml BID 118 ml By Mouth Twice daily Healthshake 118 ml BID For MNA of 7 - malnourished - please record total ml consumed 118 ml 2023 Active 2023 Twice daily By Mouth False Oxycodone 5 mg tablet [generic] 01/31 Inactiv e 2023 80603 62235 1 Oxycodone 5 mg tablet [generic] 5mg By Mouth Every 4 hours as needed for severe pain for pain rate 7-10. For right pubis fracture 5mg 02/01 Inactiv e 2023 96972 29812 1 Every 4 hours as needed By Mouth False Oxycodone 5 mg tablet [generic] 5mg By Mouth Every 4 hours as needed for severe pain 7-10 For right pubis fx 5mg 2023 Active 2023 29199 20441 1 Every 4 hours as needed By Mouth False Cymbalta 60 mg capsule,del ayed release 60mg Once daily depression 60mg 2023 Active 2023 16571 07232 0 Once daily By Mouth False Enoxaparin 40 mg/0.4 mL subcutaneou s syringe [generic] 20mg Subcutaneous Once daily For anticoag 20mg 2023 Active 2023 21119 80487 0 Once daily Subcut aneous False Problems [...] Temperature SpO2 Blood Sugar Pulse Respirations 210 12974 7 78.00 mm[Hg] - Lying Down 186.00 mm[Hg] - Lying Down 109.80 NI 97.90 Forehead Scan 91.00 % 92.00/ min 18.00/min 210 34453 1 74.00 mm[Hg] - Lying Down 147.00 mm[Hg] - Lying Down 85.00/ min 211 44336 2 72.00 mm[Hg] - Sitting 138.00 mm[Hg] - Sitting 98.40 Tympanic 86.00/ min 18.00/min 211 11306 2 59.00 mm[Hg] - Sitting 117.00 mm[Hg] - Sitting 98.20 Tympanic 99.00 % 81.00/ min 18.00/min 211 41126 5 69.00 mm[Hg] - Sitting 145.00 mm[Hg] - Sitting 211 03448 9 69.00 mm[Hg] - Sitting 145.00 mm[Hg] - Sitting 211 70936 5 69.00 mm[Hg] - Sitting 145.00 mm[Hg] - Sitting 211 92561 6 69.00 mm[Hg] - Sitting 212 28412 7 59.00 mm[Hg] - Sitting 117.00 mm[Hg] - Sitting 98.20 Tympanic 81.00/ min 18.00/min 212 43754 9 97.80 Tympanic 43082 6 55.00 mm[Hg] - Sitting 109.00 mm[Hg] - Sitting 97.30 Tympanic 94.00 % 75.00/ min 18.00/min 40515 212 51429 5 68.00 mm[Hg] - Sitting 128.00 mm[Hg] - Sitting 97.80 Tympanic 80.00/ min 18.00/min 80674 212 13718 4 97.50 Tympanic 53319 212 60139 9 15123 212 78477 6 71.00 mm[Hg] - Sitting 117.00 mm[Hg] - Sitting 85676 213 12390 0 60.00 mm[Hg] - Sitting 116.00 mm[Hg] - Sitting 98.40 Forehead Scan 94.00 % 72.00/ min 16.00/min 90852 213 79156 7 70.00 mm[Hg] - Sitting 118.00 mm[Hg] - Sitting 98.00 Tympanic 82.00/ min 18.00/min 84213 213 29149 3 97.90 Tympanic 19319 213 95785 5 73.00 mm[Hg] - Lying Down 127.00 mm[Hg] - Lying Down 68806 213 11674 3 51422 214 97847 1 62.00 mm[Hg] - Sitting 127.00 mm[Hg] - Sitting 97.80 Tympanic 94.00 % 72.00/ min 16.00/min 26238 214 64388 4 59.00 mm[Hg] - Lying Down 113.00 mm[Hg] - Lying Down 20621 215 54169 0 56.00 mm[Hg] - Sitting 101.00 mm[Hg] - Sitting 97.80 Tympanic 95.00 % 71.00/ min 16.00/min 23237 215 01054 5 62 NI [address] 215 48944 8 57.00 mm[Hg] - Lying Down 113.00 mm[Hg] - Lying Down 80271 216 33848 3 71.00 mm[Hg] - Sitting 161.00 mm[Hg] - Sitting 98.10 Tympanic 93.00 % 81.00/ min 16.00/min 51858 216 51938 1 72.00 mm[Hg] - Sitting 115.00 mm[Hg] - Sitting 96724 217 26831 2 27895 217 16174 4 62.00 mm[Hg] - Sitting 112.00 mm[Hg] - Sitting 30336 217 46909 3 57.00 mm[Hg] - Sitting 114.00 mm[Hg] - Sitting 98.30 Tympanic 98.00 % 78.00/ min 20.00/min 26215 217 74762 4 62.00 mm[Hg] - Lying Down 111.00 mm[Hg] - Lying Down 44696 218 71474 0 70.00 mm[Hg] - Sitting 158.00 mm[Hg] - Sitting 97.60 Tympanic 97.00 % 68.00/ min 18.00/min 61169 218 71095 5 65.00 mm[Hg] - Lying Down 113.00 mm[Hg] - Lying Down 11287 219 07619 1 67.00 mm[Hg] - Sitting 112.00 mm[Hg] - Sitting 51913 220 77809 0 82.00 mm[Hg] - Sitting 160.00 mm[Hg] - Sitting 97.90 Forehead Scan 95.00 % 87.00/ min 16.00/min 36803 220 92023 7 69.00 mm[Hg] - Sitting 119.00 mm[Hg] - Sitting 55129 221 87802 1 82.00 mm[Hg] - Sitting 156.00 mm[Hg] - Sitting 98.20 Tympanic 95.00 % 72.00/ min 18.00/min 20531 221 53144 1 78.00 mm[Hg] - Sitting 148.00 mm[Hg] - Sitting 63122 222 52016 0 81.00 mm[Hg] - Sitting 161.00 mm[Hg] - Sitting 97.70 Tympanic 94.00 % 80.00/ min 18.00/min 27023 222 64684 3 87.00 mm[Hg] - Sitting 141.00 mm[Hg] - Sitting 84194 223 10655 9 68.00 mm[Hg] - Sitting 138.00 mm[Hg] - Sitting 98.10 Tympanic 92.00 % 85.00/ min 18.00/min 24986 223 40225 4 67.00 mm[Hg] - Sitting 128.00 mm[Hg] - Sitting 79645 224 04256 6 87990 224 61469 5 73.00 mm[Hg] - Lying Down 151.00 mm[Hg] - Lying Down 98.40 Tympanic 95.00 % 75.00/ min 18.00/min 39574 224 85741 3 63.00 mm[Hg] - Sitting 124.00 mm[Hg] - Sitting 12940 225 89384 1 97.30 Tympanic 95.00 % 72.00/ min 20.00/min 22572 225 75340 6 67.00 mm[Hg] - Sitting 132.00 mm[Hg] - Sitting 226 74364 2 67.00 mm[Hg] - Sitting 121.00 mm[Hg] - Sitting 227 76806 0 70.00 mm[Hg] - Sitting 137.00 mm[Hg] - Sitting 98.70 Forehead Scan 96.00 % 70.00/ min 16.00/min 227 10161 6 69.00 mm[Hg] - Sitting 131.00 mm[Hg] - Sitting
--- OUTSIDE RECORDS SUMMARY | 2024-04-10 03:16 | External Medical Summary | Continuity Of Care Document ---
Author Name Unknown Address [address] [address] [facility] () Care Team Providers Care Band Manager Name Role Phone DO Alonso Amy Primary Care Provider [phone] Allergies Allergy Reaction Start Date End Date [...] 3 0.1 mL 01/29 Inactiv e 2023 09397 59961 0 1 time Intrad ermal False Tubersol 5 tub. unit/0.1 mL intradermal injection solution [Tuberculin PPD] 0.1mL Intradermal 1 time For PPD 2nd Step Give 2nd Step PPD Day 1 and Read results Day 3 (schedule 7 days after 1st READ) 0.1mL 02/07 Inactiv e 2023 10339 72776 0 1 time Intrad ermal False Oxycodone 5 mg tablet [generic] 5mg By Mouth Every 4 hours as needed for severe pain for pain rate 7-10. For right pubis fracture 5mg 01/27 Inactiv e 2023 11194 39656 1 Every 4 hours as needed By Mouth False OXYCODONE 5 MG TABLET [GENERIC]IM MEDIATE RELEASE 2.5mg By Mouth Every 4 hours as needed tablet po for moderate pain, pain rate 4-6 on pain scale 1-10. For pain 2.5mg 01/27 Inactiv e 2023 Every 4 hours as needed By Mouth False Oxycodone 5 mg tablet [generic] 01/27 Inactiv e 2023 26518 02992 1 Oxycodone 5 mg tablet [generic] 5mg By Mouth Every 4 hours as needed for severe pain for pain rate 7-10. For right pubis fracture 5mg 01/29 Inactiv e 2023 25050 23882 1 Every 4 hours as needed By [...] For Muscle spasms 175mg 2023 Active 2023 81514 00251 1 Every 6 hours as needed By Mouth False Cephalexin 500 mg capsule [generic] 500mg By Mouth Every 8 hours For UTI 500mg 01/30 Inactiv e 2023 35334 07725 1 Every 8 hours By Mouth False Aspirin 81 mg chewable tablet [generic] 81 mg By Mouth Once daily For AAA 81 mg 2023 Active 2023 54861 58373 6 Once daily By Mouth False Colace 100 mg capsule 100mg By Mouth Twice daily For constipation 100mg 2023 Active 2023 18284 57024 1 Twice daily By Mouth False Enoxaparin 300 mg/3 mL subcutaneou s solution [generic] 20mg Subcutaneous Once daily For anticoag. 20mg 02/06 Inactiv e 2023 21275 95738 1 Once daily Subcut aneous False Losartan 50 mg tablet [generic] 50 By Mouth Once daily For HTN 50 2023 Active 2023 91028 56065 9 Once daily By Mouth False Miralax 17 gram/dose oral powder 17 gram By Mouth Once daily For contispation 17 gram 2023 Active 2023 61809 82481 0 Once daily By Mouth False Senna 8.6 mg tablet 2 tabs By Mouth Once daily For constipation 2 tabs 2023 Active 2023 27559 40166 1 Once daily By Mouth False Simvastatin 20 mg tablet [generic] 20 mg By Mouth Once daily For Hyperlipidemi a 20 mg 2023 Active 2023 25926 99978 0 Once daily By Mouth False Spiriva with HandiHaler 18 mcg and inhalation capsules 1 capsule Inhalation Once daily For COPD 1 capsule 2023 Active 2023 38269 63332 1 Once daily Inhala tion False Ventolin HFA 90 mcg/actuati on aerosol inhaler 2 puff Inhalation Every 4 hours as needed For COPD 2 puff 2023 Active 2023 08703 07722 0 Every 4 hours as needed Inhala tion False ProSource No Carb 15 gram-60 kcal/30 mL oral liquid 30ml By Mouth Twice daily For Protien supplement 30ml 01/30 Inactiv e 2023 09024 27019 5 Twice daily By Mouth False Albuterol sulfate 2.5 mg/3 mL (0.083 %) solution for nebulizatio n [generic] 3 ml Inhalation Every 6 hours as needed For wheezing 3 ml 2023 Active 2023 04076 98179 3 Every 6 hours as needed Inhala tion False Acetaminoph en 325 mg tablet [generic] 650 mg By Mouth Every 6 hours For Mild Pain 650 mg 01/29 Inactiv e 2023 20977 29261 0 Every 6 hours By Mouth False Tylenol 325 mg tablet 2 tabs By Mouth Every 4 hours as needed For Pain DO NOT EXCEED 3000 MG APAP/24 Hours 2 tabs 2023 Active 2023 64610 27503 0 Every 4 hours as needed By Mouth False Tylenol 325 mg tablet 2 tabs By Mouth Every 4 hours as needed For Fever >100 DO NOT EXCEED 3000 MG APAP/24 Hours 2 tabs 2023 Active 2023 73556 62269 0 Every 4 hours as needed By Mouth False Dulcolax (bisacodyl) 10 mg rectal suppository One Suppository per rectum PRN if Milk of Magnisia ineffective. Give on day 5 of no BM 1 sup 2023 Active 2023 20653 87166 1 Daily as needed Rectal False Fleet Enema 19 gram-7 gram/118 mL Administer per rectum PRN one time if dulcolax suppository not effective. Give on day 6 of no BM 1 2023 Active 2023 63342 01749 6 Daily as needed Rectal False Milk of Magnesia 400 mg/5 mL oral suspension [Magnesium hydroxide] PRN 30ml By Mouth Daily as needed for constipation one time daily if no BM, on day 4 of no BM (PRN refer to instructions) For Constipation 30 mL 2023 Active 2023 63865 84834 6 Daily as needed By Mouth False Oxycodone 5 mg tablet [generic] 01/29 Inactiv e 2023 04342 51246 1 Oxycodone 5 mg tablet [generic] 5mg By Mouth Every 4 hours as needed for severe pain for pain rate 7-10. For right pubis fracture 5mg 01/31 Inactiv e 2023 00154 85693 1 Every 4 hours as needed By Mouth False Cymbalta 30 mg capsule,del ayed release 30 mg By Mouth Once daily For Depression 30 mg 02/04 Inactiv e 2023 04496 85747 0 Once daily By Mouth False Acetaminoph en 500 mg tablet [generic] 1000 mg By Mouth Twice daily not to exceed 3gm APAP in 24 hours For Pain 1000 mg 2023 Active 2023 35341 60053 8 Twice daily By Mouth False Healthshake 118 ml BID 118 ml By Mouth Twice daily Healthshake 118 ml BID For MNA of 7 - malnourished - please record total ml consumed 118 ml 2023 Active 2023 Twice daily By Mouth False Oxycodone 5 mg tablet [generic] 01/31 Inactiv e 2023 53126 47922 1 Oxycodone 5 mg tablet [generic] 5mg By Mouth Every 4 hours as needed for severe pain for pain rate 7-10. For right pubis fracture 5mg 02/01 Inactiv e 2023 62535 44184 1 Every 4 hours as needed By Mouth False Oxycodone 5 mg tablet [generic] 5mg By Mouth Every 4 hours as needed for severe pain 7-10 For right pubis fx 5mg 2023 Active 2023 60361 60973 1 Every 4 hours as needed By Mouth False Cymbalta 60 mg capsule,del ayed release 60mg Once daily depression 60mg 2023 Active 2023 30512 60506 0 Once daily By Mouth False Enoxaparin 40 mg/0.4 mL subcutaneou s syringe [generic] 20mg Subcutaneous Once daily For anticoag 20mg 2023 Active 2023 62688 19886 0 Once daily Subcut aneous False Problems [...] Temperature SpO2 Blood Sugar Pulse Respirations 210 39836 7 78.00 mm[Hg] - Lying Down 186.00 mm[Hg] - Lying Down 109.80 NI 97.90 Forehead Scan 91.00 % 92.00/ min 18.00/min 210 94463 1 74.00 mm[Hg] - Lying Down 147.00 mm[Hg] - Lying Down 85.00/ min 211 90556 2 72.00 mm[Hg] - Sitting 138.00 mm[Hg] - Sitting 98.40 Tympanic 86.00/ min 18.00/min 211 56717 2 59.00 mm[Hg] - Sitting 117.00 mm[Hg] - Sitting 98.20 Tympanic 99.00 % 81.00/ min 18.00/min 211 97868 5 69.00 mm[Hg] - Sitting 145.00 mm[Hg] - Sitting 211 77708 9 69.00 mm[Hg] - Sitting 145.00 mm[Hg] - Sitting 211 28376 5 69.00 mm[Hg] - Sitting 145.00 mm[Hg] - Sitting 211 43958 6 69.00 mm[Hg] - Sitting 212 61516 7 59.00 mm[Hg] - Sitting 117.00 mm[Hg] - Sitting 98.20 Tympanic 81.00/ min 18.00/min 212 56350 9 97.80 Tympanic 52825 6 55.00 mm[Hg] - Sitting 109.00 mm[Hg] - Sitting 97.30 Tympanic 94.00 % 75.00/ min 18.00/min 84232 212 39272 5 68.00 mm[Hg] - Sitting 128.00 mm[Hg] - Sitting 97.80 Tympanic 80.00/ min 18.00/min 78712 212 33535 4 97.50 Tympanic 36988 212 52089 9 75892 212 18937 6 71.00 mm[Hg] - Sitting 117.00 mm[Hg] - Sitting 06978 213 47656 0 60.00 mm[Hg] - Sitting 116.00 mm[Hg] - Sitting 98.40 Forehead Scan 94.00 % 72.00/ min 16.00/min 74464 213 77345 7 70.00 mm[Hg] - Sitting 118.00 mm[Hg] - Sitting 98.00 Tympanic 82.00/ min 18.00/min 39942 213 28662 3 97.90 Tympanic 66548 213 07868 5 73.00 mm[Hg] - Lying Down 127.00 mm[Hg] - Lying Down 11885 213 61442 3 55893 214 33292 1 62.00 mm[Hg] - Sitting 127.00 mm[Hg] - Sitting 97.80 Tympanic 94.00 % 72.00/ min 16.00/min 07030 214 73794 4 59.00 mm[Hg] - Lying Down 113.00 mm[Hg] - Lying Down 05525 215 94676 0 56.00 mm[Hg] - Sitting 101.00 mm[Hg] - Sitting 97.80 Tympanic 95.00 % 71.00/ min 16.00/min 09622 215 16627 5 62 NI 56671 215 01753 8 57.00 mm[Hg] - Lying Down 113.00 mm[Hg] - Lying Down 91397 216 72960 3 98.10 Tympanic
--- OUTSIDE RECORDS SUMMARY | 2024-04-10 03:16 | External Medical Summary | Continuity Of Care Document ---
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 unit/0.1 mL intradermal injection solution [Tuberculin PPD] 0.1mL Intradermal 1 time For PPD 2nd Step Give 2nd Step PPD Day 1 and Read results Day 3 (schedule 7 days after 1st READ) 0.1mL 02/07 Inactiv e 2023 05984 99159 0 1 time Intrad ermal False Oxycodone 5 mg tablet [generic] 5mg By Mouth Every 4 hours as needed for severe pain for pain rate 7-10. For right pubis fracture 5mg 01/27 Inactiv e 2023 80895 17542 1 Every 4 hours as needed By Mouth False OXYCODONE 5 MG TABLET [GENERIC]IM MEDIATE RELEASE 2.5mg By Mouth Every 4 hours as needed tablet po for moderate pain, pain rate 4-6 on pain scale 1-10. For pain 2.5mg 01/27 Inactiv e 2023 Every 4 hours as needed By Mouth False Oxycodone 5 mg tablet [generic] 01/27 Inactiv e 2023 72546 70823 1 Oxycodone 5 mg tablet [generic] 5mg By Mouth Every 4 hours as needed for severe pain for pain rate 7-10. For right pubis fracture 5mg 01/29 Inactiv e 2023 58166 90909 1 Every 4 hours as needed By [...] For Muscle spasms 175mg 2023 Active 2023 28859 81971 1 Every 6 hours as needed By Mouth False Cephalexin 500 mg capsule [generic] 500mg By Mouth Every 8 hours For UTI 500mg 01/30 Inactiv e 2023 75113 46736 1 Every 8 hours By Mouth False Aspirin 81 mg chewable tablet [generic] 81 mg By Mouth Once daily For AAA 81 mg 2023 Active 2023 75627 43952 6 Once daily By Mouth False Colace 100 mg capsule 100mg By Mouth Twice daily For constipation 100mg 2023 Active 2023 40132 40819 1 Twice daily By Mouth False Enoxaparin 300 mg/3 mL subcutaneou s solution [generic] 20mg Subcutaneous Once daily For anticoag. 20mg 02/06 Inactiv e 2023 37048 15891 1 Once daily Subcut aneous False Losartan 50 mg tablet [generic] 50 By Mouth Once daily For HTN 50 2023 Active 2023 80595 92673 9 Once daily By Mouth False Miralax 17 gram/dose oral powder 17 gram By Mouth Once daily For contispation 17 gram 2023 Active 2023 08587 36274 0 Once daily By Mouth False Senna 8.6 mg tablet 2 tabs By Mouth Once daily For constipation 2 tabs 2023 Active 2023 73539 67597 1 Once daily By Mouth False Simvastatin 20 mg tablet [generic] 20 mg By Mouth Once daily For Hyperlipidemi a 20 mg 2023 Active 2023 65898 42799 0 Once daily By Mouth False Spiriva with HandiHaler 18 mcg and inhalation capsules 1 capsule Inhalation Once daily For COPD 1 capsule 2023 Active 2023 60597 57588 1 Once daily Inhala tion False Ventolin HFA 90 mcg/actuati on aerosol inhaler 2 puff Inhalation Every 4 hours as needed For COPD 2 puff 2023 Active 2023 50563 29851 0 Every 4 hours as needed Inhala tion False ProSource No Carb 15 gram-60 kcal/30 mL oral liquid 30ml By Mouth Twice daily For Protien supplement 30ml 01/30 Inactiv e 2023 98685 27019 5 Twice daily By Mouth False Albuterol sulfate 2.5 mg/3 mL (0.083 %) solution for nebulizatio n [generic] 3 ml Inhalation Every 6 hours as needed For wheezing 3 ml 2023 Active 2023 98574 03499 3 Every 6 hours as needed Inhala tion False Acetaminoph en 325 mg tablet [generic] 650 mg By Mouth Every 6 hours For Mild Pain 650 mg 01/29 Inactiv e 2023 86377 98689 0 Every 6 hours By Mouth False Tylenol 325 mg tablet 2 tabs By Mouth Every 4 hours as needed For Pain DO NOT EXCEED 3000 MG APAP/24 Hours 2 tabs 2023 Active 2023 51586 34817 0 Every 4 hours as needed By Mouth False Tylenol 325 mg tablet 2 tabs By Mouth Every 4 hours as needed For Fever >100 DO NOT EXCEED 3000 MG APAP/24 Hours 2 tabs 2023 Active 2023 63713 63679 0 Every 4 hours as needed By Mouth False Dulcolax (bisacodyl) 10 mg rectal suppository One Suppository per rectum PRN if Milk of Magnisia ineffective. Give on day 5 of no BM 1 sup 2023 Active 2023 15496 21622 1 Daily as needed Rectal False Fleet Enema 19 gram-7 gram/118 mL Administer per rectum PRN one time if dulcolax suppository not effective. Give on day 6 of no BM 1 2023 Active 2023 07367 18469 6 Daily as needed Rectal False Milk of Magnesia 400 mg/5 mL oral suspension [Magnesium hydroxide] PRN 30ml By Mouth Daily as needed for constipation one time daily if no BM, on day 4 of no BM (PRN refer to instructions) For Constipation 30 mL 2023 Active 2023 44370 39774 6 Daily as needed By Mouth False Oxycodone 5 mg tablet [generic] 01/29 Inactiv e 2023 18619 54955 1 Oxycodone 5 mg tablet [generic] 5mg By Mouth Every 4 hours as needed for severe pain for pain rate 7-10. For right pubis fracture 5mg 01/31 Inactiv e 2023 74457 69426 1 Every 4 hours as needed By Mouth False Cymbalta 30 mg capsule,del ayed release 30 mg By Mouth Once daily For Depression 30 mg 02/04 Inactiv e 2023 57802 23597 0 Once daily By Mouth False Acetaminoph en 500 mg tablet [generic] 1000 mg By Mouth Twice daily not to exceed 3gm APAP in 24 hours For Pain 1000 mg 2023 Active 2023 17752 79799 8 Twice daily By Mouth False Healthshake 118 ml BID 118 ml By Mouth Twice daily Healthshake 118 ml BID For MNA of 7 - malnourished - please record total ml consumed 118 ml 2023 Active 2023 Twice daily By Mouth False Oxycodone 5 mg tablet [generic] 01/31 Inactiv e 2023 01043 17197 1 Oxycodone 5 mg tablet [generic] 5mg By Mouth Every 4 hours as needed for severe pain for pain rate 7-10. For right pubis fracture 5mg 02/01 Inactiv e 2023 27597 03603 1 Every 4 hours as needed By Mouth False Oxycodone 5 mg tablet [generic] 5mg By Mouth Every 4 hours as needed for severe pain 7-10 For right pubis fx 5mg 2023 Active 2023 05288 20780 1 Every 4 hours as needed By Mouth False Cymbalta 60 mg capsule,del ayed release 60mg Once daily depression 60mg 2023 Active 2023 94801 02381 0 Once daily By Mouth False Enoxaparin 40 mg/0.4 mL subcutaneou s syringe [generic] 20mg Subcutaneous Once daily For anticoag 20mg 2023 Active 2023 49768 35843 0 Once daily Subcut aneous False Problems [...] Temperature SpO2 Blood Sugar Pulse Respirations 210 77813 7 78.00 mm[Hg] - Lying Down 186.00 mm[Hg] - Lying Down 109.80 NI 97.90 Forehead Scan 91.00 % 92.00/ min 18.00/min 210 87698 1 74.00 mm[Hg] - Lying Down 147.00 mm[Hg] - Lying Down 85.00/ min 211 49090 2 72.00 mm[Hg] - Sitting 138.00 mm[Hg] - Sitting 98.40 Tympanic 86.00/ min 18.00/min 211 35245 2 59.00 mm[Hg] - Sitting 117.00 mm[Hg] - Sitting 98.20 Tympanic 99.00 % 81.00/ min 18.00/min 211 87113 5 69.00 mm[Hg] - Sitting 145.00 mm[Hg] - Sitting 211 57306 9 69.00 mm[Hg] - Sitting 145.00 mm[Hg] - Sitting 211 17284 5 69.00 mm[Hg] - Sitting 145.00 mm[Hg] - Sitting 211 20195 6 69.00 mm[Hg] - Sitting 212 98384 7 59.00 mm[Hg] - Sitting 117.00 mm[Hg] - Sitting 98.20 Tympanic 81.00/ min 18.00/min 212 94273 9 97.80 Tympanic 01835 6 55.00 mm[Hg] - Sitting 109.00 mm[Hg] - Sitting 97.30 Tympanic 94.00 % 75.00/ min 18.00/min 65810 212 24781 5 68.00 mm[Hg] - Sitting 128.00 mm[Hg] - Sitting 97.80 Tympanic 80.00/ min 18.00/min 06129 212 73639 4 97.50 Tympanic 29794 212 59417 9 89723 212 86023 6 71.00 mm[Hg] - Sitting 117.00 mm[Hg] - Sitting 93195 213 55298 0 60.00 mm[Hg] - Sitting 116.00 mm[Hg] - Sitting 98.40 Forehead Scan 94.00 % 72.00/ min 16.00/min 31793 213 15746 7 70.00 mm[Hg] - Sitting 118.00 mm[Hg] - Sitting 98.00 Tympanic 82.00/ min 18.00/min 38383 213 73021 3 97.90 Tympanic 92248 213 21837 5 73.00 mm[Hg] - Lying Down 127.00 mm[Hg] - Lying Down 60470 213 38034 3 71144 214 97573 1 62.00 mm[Hg] - Sitting 127.00 mm[Hg] - Sitting 97.80 Tympanic 94.00 % 72.00/ min 16.00/min 92914 214 37334 4 59.00 mm[Hg] - Lying Down 113.00 mm[Hg] - Lying Down 26709 215 73943 0 56.00 mm[Hg] - Sitting 101.00 mm[Hg] - Sitting 97.80 Tympanic 95.00 % 71.00/ min 16.00/min 55326 215 02576 5 62 NI [address]04 215 17286 8 57.00 mm[Hg] - Lying Down 113.00 mm[Hg] - Lying Down 93275 216 54045 3 71.00 mm[Hg] - Sitting 161.00 mm[Hg] - Sitting 98.10 Tympanic 93.00 % 81.00/ min 16.00/min 03022 216 60061 1 72.00 mm[Hg] - Sitting 115.00 mm[Hg] - Sitting 14264 217 72858 2 62638 217 78449 4 62.00 mm[Hg] - Sitting 112.00 mm[Hg] - Sitting 10518 217 63588 3 57.00 mm[Hg] - Sitting 114.00 mm[Hg] - Sitting 98.30 Tympanic 98.00 % 78.00/ min 20.00/min 98384 217 63805 4 62.00 mm[Hg] - Lying Down 111.00 mm[Hg] - Lying Down 05888 218 93711 0 70.00 mm[Hg] - Sitting 158.00 mm[Hg] - Sitting 97.60 Tympanic 97.00 % 68.00/ min 18.00/min 73500 218 67184 5 65.00 mm[Hg] - Lying Down 113.00 mm[Hg] - Lying Down 78184 219 59741 1 67.00 mm[Hg] - Sitting 112.00 mm[Hg] - Sitting 77636 220 29223 0 82.00 mm[Hg] - Sitting 160.00 mm[Hg] - Sitting 97.90 Forehead Scan 95.00 % 87.00/ min 16.00/min 21222 220 02213 7 69.00 mm[Hg] - Sitting 119.00 mm[Hg] - Sitting 81574 221 14852 1 82.00 mm[Hg] - Sitting 156.00 mm[Hg] - Sitting 98.20 Tympanic 95.00 % 72.00/ min 18.00/min 63248 221 50098 1 78.00 mm[Hg] - Sitting 148.00 mm[Hg] - Sitting 06668 222 89989 0 81.00 mm[Hg] - Sitting 161.00 mm[Hg] - Sitting 97.70 Tympanic 94.00 % 80.00/ min 18.00/min 41657 222 60924 3 87.00 mm[Hg] - Sitting 141.00 mm[Hg] - Sitting 14709 223 52507 9 68.00 mm[Hg] - Sitting 138.00 mm[Hg] - Sitting 98.10 Tympanic 92.00 % 85.00/ min 18.00/min 48510 223 38485 4 67.00 mm[Hg] - Sitting 128.00 mm[Hg] - Sitting 53442 224 32201 6 65308 224 11711 5 73.00 mm[Hg] - Lying Down 151.00 mm[Hg] - Lying Down 98.40 Tympanic 95.00 % 75.00/ min 18.00/min 02877 224 36913 3 63.00 mm[Hg] - Sitting 124.00 mm[Hg] - Sitting 07589 225 36267 1 97.30 Tympanic 95.00 % 72.00/ min 20.00/min 225 55602 6 67.00 mm[Hg] - Sitting 132.00 mm[Hg] - Sitting 226 30966 2 67.00 mm[Hg] - Sitting 121.00 mm[Hg] - Sitting 227 07991 0 70.00 mm[Hg] - Sitting 137.00 mm[Hg] - Sitting 98.70 Forehead Scan 96.00 % 70.00/ min 16.00/min 227 02641 6 69.00 mm[Hg] - Sitting 131.00 mm[Hg] - Sitting 228 49619 7 79.00 mm[Hg] - Lying Down 181.00 mm[Hg] - Lying Down 98.40 Tympanic 98.00 % 75.00/ min 20.00/min
--- OUTSIDE RECORDS SUMMARY | 2024-04-10 03:16 | External Medical Summary | Continuity Of Care Document ---
Author Name Unknown Address [address] [address] Organization [facility] () Care Team Providers Care Field Artillery Basic Name Role Phone DO Alonso Amy Primary Care Provider [phone] Allergies Allergy Reaction Start Date End Date [...] 3 0.1 mL 01/29 Inactiv e 2023 02166 12243 0 1 time Intrad ermal False Tubersol 5 tub. unit/0.1 mL intradermal injection solution [Tuberculin PPD] 0.1mL Intradermal 1 time For PPD 2nd Step Give 2nd Step PPD Day 1 and Read results Day 3 (schedule 7 days after 1st READ) 0.1mL 02/07 Inactiv e 2023 91463 77472 0 1 time Intrad ermal False Oxycodone 5 mg tablet [generic] 5mg By Mouth Every 4 hours as needed for severe pain for pain rate 7-10. For right pubis fracture 5mg 01/27 Inactiv e 2023 48897 11041 1 Every 4 hours as needed By Mouth False OXYCODONE 5 MG TABLET [GENERIC]IM MEDIATE RELEASE 2.5mg By Mouth Every 4 hours as needed tablet po for moderate pain, pain rate 4-6 on pain scale 1-10. For pain 2.5mg 01/27 Inactiv e 2023 Every 4 hours as needed By Mouth False Oxycodone 5 mg tablet [generic] 01/27 Inactiv e 2023 05621 08210 1 Oxycodone 5 mg tablet [generic] 5mg By Mouth Every 4 hours as needed for severe pain for pain rate 7-10. For right pubis fracture 5mg 01/29 Inactiv e 2023 72936 21503 1 Every 4 hours as needed By [...] For Muscle spasms 175mg 2023 Active 2023 35394 47790 1 Every 6 hours as needed By Mouth False Cephalexin 500 mg capsule [generic] 500mg By Mouth Every 8 hours For UTI 500mg 01/30 Inactiv e 2023 20710 47676 1 Every 8 hours By Mouth False Aspirin 81 mg chewable tablet [generic] 81 mg By Mouth Once daily For AAA 81 mg 2023 Active 2023 67943 62135 6 Once daily By Mouth False Colace 100 mg capsule 100mg By Mouth Twice daily For constipation 100mg 2023 Active 2023 31935 46895 1 Twice daily By Mouth False Enoxaparin 300 mg/3 mL subcutaneou s solution [generic] 20mg Subcutaneous Once daily For anticoag. 20mg 02/06 Inactiv e 2023 49407 67848 1 Once daily Subcut aneous False Losartan 50 mg tablet [generic] 50 By Mouth Once daily For HTN 50 2023 Active 2023 64321 67520 9 Once daily By Mouth False Miralax 17 gram/dose oral powder 17 gram By Mouth Once daily For contispation 17 gram 2023 Active 2023 89973 84294 0 Once daily By Mouth False Senna 8.6 mg tablet 2 tabs By Mouth Once daily For constipation 2 tabs 2023 Active 2023 77572 76291 1 Once daily By Mouth False Simvastatin 20 mg tablet [generic] 20 mg By Mouth Once daily For Hyperlipidemi a 20 mg 2023 Active 2023 26082 99921 0 Once daily By Mouth False Spiriva with HandiHaler 18 mcg and inhalation capsules 1 capsule Inhalation Once daily For COPD 1 capsule 2023 Active 2023 84827 81534 1 Once daily Inhala tion False Ventolin HFA 90 mcg/actuati on aerosol inhaler 2 puff Inhalation Every 4 hours as needed For COPD 2 puff 2023 Active 2023 68482 61612 0 Every 4 hours as needed Inhala tion False ProSource No Carb 15 gram-60 kcal/30 mL oral liquid 30ml By Mouth Twice daily For Protien supplement 30ml 01/30 Inactiv e 2023 17118 39728 5 Twice daily By Mouth False Albuterol sulfate 2.5 mg/3 mL (0.083 %) solution for nebulizatio n [generic] 3 ml Inhalation Every 6 hours as needed For wheezing 3 ml 2023 Active 2023 38254 74375 3 Every 6 hours as needed Inhala tion False Acetaminoph en 325 mg tablet [generic] 650 mg By Mouth Every 6 hours For Mild Pain 650 mg 01/29 Inactiv e 2023 62403 71157 0 Every 6 hours By Mouth False Tylenol 325 mg tablet 2 tabs By Mouth Every 4 hours as needed For Pain DO NOT EXCEED 3000 MG APAP/24 Hours 2 tabs 2023 Active 2023 93775 83803 0 Every 4 hours as needed By Mouth False Tylenol 325 mg tablet 2 tabs By Mouth Every 4 hours as needed For Fever >100 DO NOT EXCEED 3000 MG APAP/24 Hours 2 tabs 2023 Active 2023 71494 05682 0 Every 4 hours as needed By Mouth False Dulcolax (bisacodyl) 10 mg rectal suppository One Suppository per rectum PRN if Milk of Magnisia ineffective. Give on day 5 of no BM 1 sup 2023 Active 2023 39493 51445 1 Daily as needed Rectal False Fleet Enema 19 gram-7 gram/118 mL Administer per rectum PRN one time if dulcolax suppository not effective. Give on day 6 of no BM 1 2023 Active 2023 15024 87349 6 Daily as needed Rectal False Milk of Magnesia 400 mg/5 mL oral suspension [Magnesium hydroxide] PRN 30ml By Mouth Daily as needed for constipation one time daily if no BM, on day 4 of no BM (PRN refer to instructions) For Constipation 30 mL 2023 Active 2023 67929 27150 6 Daily as needed By Mouth False Oxycodone 5 mg tablet [generic] 01/29 Inactiv e 2023 30589 00410 1 Oxycodone 5 mg tablet [generic] 5mg By Mouth Every 4 hours as needed for severe pain for pain rate 7-10. For right pubis fracture 5mg 01/31 Inactiv e 2023 56451 80962 1 Every 4 hours as needed By Mouth False Cymbalta 30 mg capsule,del ayed release 30 mg By Mouth Once daily For Depression 30 mg 02/04 Inactiv e 2023 15195 33996 0 Once daily By Mouth False Acetaminoph en 500 mg tablet [generic] 1000 mg By Mouth Twice daily not to exceed 3gm APAP in 24 hours For Pain 1000 mg 2023 Active 2023 85583 60832 8 Twice daily By Mouth False Healthshake 118 ml BID 118 ml By Mouth Twice daily Healthshake 118 ml BID For MNA of 7 - malnourished - please record total ml consumed 118 ml 2023 Active 2023 Twice daily By Mouth False Oxycodone 5 mg tablet [generic] 01/31 Inactiv e 2023 97205 15835 1 Oxycodone 5 mg tablet [generic] 5mg By Mouth Every 4 hours as needed for severe pain for pain rate 7-10. For right pubis fracture 5mg 02/01 Inactiv e 2023 95627 71212 1 Every 4 hours as needed By Mouth False Oxycodone 5 mg tablet [generic] 5mg By Mouth Every 4 hours as needed for severe pain 7-10 For right pubis fx 5mg 2023 Active 2023 41467 56316 1 Every 4 hours as needed By Mouth False Cymbalta 60 mg capsule,del ayed release 60mg Once daily depression 60mg 2023 Active 2023 11634 55956 0 Once daily By Mouth False Enoxaparin 40 mg/0.4 mL subcutaneou s syringe [generic] 20mg Subcutaneous Once daily For anticoag 20mg 2023 Active 2023 22622 90271 0 Once daily Subcut aneous False Problems [...] Temperature SpO2 Blood Sugar Pulse Respirations 210 51148 7 78.00 mm[Hg] - Lying Down 186.00 mm[Hg] - Lying Down 109.80 NI 97.90 Forehead Scan 91.00 % 92.00/ min 18.00/min 210 39804 1 74.00 mm[Hg] - Lying Down 147.00 mm[Hg] - Lying Down 85.00/ min 211 06279 2 72.00 mm[Hg] - Sitting 138.00 mm[Hg] - Sitting 98.40 Tympanic 86.00/ min 18.00/min 211 56916 2 59.00 mm[Hg] - Sitting 117.00 mm[Hg] - Sitting 98.20 Tympanic 99.00 % 81.00/ min 18.00/min 211 61047 5 69.00 mm[Hg] - Sitting 145.00 mm[Hg] - Sitting 211 77785 9 69.00 mm[Hg] - Sitting 145.00 mm[Hg] - Sitting 211 84858 5 69.00 mm[Hg] - Sitting 145.00 mm[Hg] - Sitting 211 43791 6 69.00 mm[Hg] - Sitting 212 35901 7 59.00 mm[Hg] - Sitting 117.00 mm[Hg] - Sitting 98.20 Tympanic 81.00/ min 18.00/min 212 07079 9 97.80 Tympanic 22177 6 55.00 mm[Hg] - Sitting 109.00 mm[Hg] - Sitting 97.30 Tympanic 94.00 % 75.00/ min 18.00/min 75549 212 84018 5 68.00 mm[Hg] - Sitting 128.00 mm[Hg] - Sitting 97.80 Tympanic 80.00/ min 18.00/min 39433 212 09161 4 97.50 Tympanic 05526 212 29110 9 63511 212 34868 6 71.00 mm[Hg] - Sitting 117.00 mm[Hg] - Sitting 92408 213 91252 0 60.00 mm[Hg] - Sitting 116.00 mm[Hg] - Sitting 98.40 Forehead Scan 94.00 % 72.00/ min 16.00/min 66416 213 92214 7 70.00 mm[Hg] - Sitting 118.00 mm[Hg] - Sitting 98.00 Tympanic 82.00/ min 18.00/min 56796 213 42290 3 97.90 Tympanic 12107 213 10045 5 73.00 mm[Hg] - Lying Down 127.00 mm[Hg] - Lying Down 30985 213 61522 3 83241 214 87435 1 62.00 mm[Hg] - Sitting 127.00 mm[Hg] - Sitting 97.80 Tympanic 94.00 % 72.00/ min 16.00/min 78315 214 36867 4 59.00 mm[Hg] - Lying Down 113.00 mm[Hg] - Lying Down 84139 215 82116 0 56.00 mm[Hg] - Sitting 101.00 mm[Hg] - Sitting 97.80 Tympanic 95.00 % 71.00/ min 16.00/min 11862 215 49286 5 62 NI 35832 215 89997 8 57.00 mm[Hg] - Lying Down 113.00 mm[Hg] - Lying Down 73614 216 87009 3 71.00 mm[Hg] - Sitting 161.00 mm[Hg] - Sitting 98.10 Tympanic 93.00 % 81.00/ min 16.00/min 81880 216 53817 1 72.00 mm[Hg] - Sitting 115.00 mm[Hg] - Sitting 32778 217 31791 2 09366 217 50655 4 62.00 mm[Hg] - Sitting 112.00 mm[Hg] - Sitting 06172 217 62600 3 57.00 mm[Hg] - Sitting 114.00 mm[Hg] - Sitting 98.30 Tympanic 98.00 % 78.00/ min 20.00/min 33987 217 04698 4 62.00 mm[Hg] - Lying Down 111.00 mm[Hg] - Lying Down 93184 218 92000 0 70.00 mm[Hg] - Sitting 158.00 mm[Hg] - Sitting 97.60 Tympanic 97.00 % 68.00/ min 18.00/min 09047 218 76325 5 65.00 mm[Hg] - Lying Down 113.00 mm[Hg] - Lying Down 15730 219 99547 1 67.00 mm[Hg] - Sitting 112.00 mm[Hg] - Sitting 60615 220 95627 0 82.00 mm[Hg] - Sitting 160.00 mm[Hg] - Sitting 97.90 Forehead Scan 95.00 % 87.00/ min 16.00/min 04153 220 28679 7 69.00 mm[Hg] - Sitting 119.00 mm[Hg] - Sitting 11065 221 07732 1 82.00 mm[Hg] - Sitting 156.00 mm[Hg] - Sitting 98.20 Tympanic 95.00 % 72.00/ min 18.00/min 85600 221 90420 1 78.00 mm[Hg] - Sitting 148.00 mm[Hg] - Sitting 76371 222 92875 0 81.00 mm[Hg] - Sitting 161.00 mm[Hg] - Sitting 97.70 Tympanic 94.00 % 80.00/ min 18.00/min 94702 222 19985 3 87.00 mm[Hg] - Sitting 141.00 mm[Hg] - Sitting 01241 223 97268 9 68.00 mm[Hg] - Sitting 138.00 mm[Hg] - Sitting 98.10 Tympanic 92.00 % 85.00/ min 18.00/min 84779 223 69421 4 67.00 mm[Hg] - Sitting 128.00 mm[Hg] - Sitting 68100 224 95923 6 81011 224 65540 5 73.00 mm[Hg] - Lying Down 151.00 mm[Hg] - Lying Down 98.40 Tympanic 95.00 % 75.00/ min 18.00/min 51090 224 54833 3 63.00 mm[Hg] - Sitting 124.00 mm[Hg] - Sitting 62591 225 10438 1 97.30 Tympanic 95.00 % 72.00/ min 20.00/min 225 07530 6 67.00 mm[Hg] - Sitting 132.00 mm[Hg] - Sitting 226 34248 2 67.00 mm[Hg] - Sitting 121.00 mm[Hg] - Sitting 227 77551 0 70.00 mm[Hg] - Sitting 137.00 mm[Hg] - Sitting 98.70 Forehead Scan 96.00 % 70.00/ min 16.00/min 227 04333 6 69.00 mm[Hg] - Sitting 131.00 mm[Hg] - Sitting 228 29371 7 79.00 mm[Hg] - Lying Down 181.00 mm[Hg] - Lying Down 98.40 Tympanic 98.00 % 75.00/ min 20.00/min 228 44631 1 68.00 mm[Hg] - Lying Down 130.00 mm[Hg] - Lying Down 229 14794 6 80.00 mm[Hg] - Lying Down 183.00 mm[Hg] - Lying Down 98.60 Tympanic 97.00 % 75.00/ min 16.00/min 229 90286 4 74.00 mm[Hg] - Lying Down 161.00 mm[Hg] - Lying Down 77.00/ min 229 34003 9 87.00 mm[Hg] - Sitting 175.00 mm[Hg] - Sitting
--- OUTSIDE RECORDS SUMMARY | 2024-04-10 03:16 | External Medical Summary | Continuity Of Care Document ---
Author Name Unknown Address [address] [address] [facility] () Care Team Providers Care Pharmacy Technology Instructor Name Role Phone DO Alonso Amy Primary Care Provider [phone] Allergies Allergy Reaction Start Date End Date [...] 3 0.1 mL 01/29 Inactiv e 2023 06925 63769 0 1 time Intrad ermal False Tubersol 5 tub. unit/0.1 mL intradermal injection solution [Tuberculin PPD] 0.1mL Intradermal 1 time For PPD 2nd Step Give 2nd Step PPD Day 1 and Read results Day 3 (schedule 7 days after 1st READ) 0.1mL 02/07 Inactiv e 2023 31151 49466 0 1 time Intrad ermal False Oxycodone 5 mg tablet [generic] 5mg By Mouth Every 4 hours as needed for severe pain for pain rate 7-10. For right pubis fracture 5mg 01/27 Inactiv e 2023 75337 01874 1 Every 4 hours as needed By Mouth False OXYCODONE 5 MG TABLET [GENERIC]IM MEDIATE RELEASE 2.5mg By Mouth Every 4 hours as needed tablet po for moderate pain, pain rate 4-6 on pain scale 1-10. For pain 2.5mg 01/27 Inactiv e 2023 Every 4 hours as needed By Mouth False Oxycodone 5 mg tablet [generic] 01/27 Inactiv e 2023 10017 87431 1 Oxycodone 5 mg tablet [generic] 5mg By Mouth Every 4 hours as needed for severe pain for pain rate 7-10. For right pubis fracture 5mg 01/29 Inactiv e 2023 04032 56200 1 Every 4 hours as needed By [...] For Muscle spasms 175mg 2023 Active 2023 15198 83980 1 Every 6 hours as needed By Mouth False Cephalexin 500 mg capsule [generic] 500mg By Mouth Every 8 hours For UTI 500mg 01/30 Inactiv e 2023 48561 75206 1 Every 8 hours By Mouth False Aspirin 81 mg chewable tablet [generic] 81 mg By Mouth Once daily For AAA 81 mg 2023 Active 2023 17180 31307 6 Once daily By Mouth False Colace 100 mg capsule 100mg By Mouth Twice daily For constipation 100mg 2023 Active 2023 74944 71367 1 Twice daily By Mouth False Enoxaparin 300 mg/3 mL subcutaneou s solution [generic] 20mg Subcutaneous Once daily For anticoag. 20mg 02/06 Inactiv e 2023 01302 14340 1 Once daily Subcut aneous False Losartan 50 mg tablet [generic] 50 By Mouth Once daily For HTN 50 2023 Active 2023 86519 61900 9 Once daily By Mouth False Miralax 17 gram/dose oral powder 17 gram By Mouth Once daily For contispation 17 gram 2023 Active 2023 81393 10799 0 Once daily By Mouth False Senna 8.6 mg tablet 2 tabs By Mouth Once daily For constipation 2 tabs 2023 Active 2023 97816 17466 1 Once daily By Mouth False Simvastatin 20 mg tablet [generic] 20 mg By Mouth Once daily For Hyperlipidemi a 20 mg 2023 Active 2023 62110 03165 0 Once daily By Mouth False Spiriva with HandiHaler 18 mcg and inhalation capsules 1 capsule Inhalation Once daily For COPD 1 capsule 2023 Active 2023 14238 12114 1 Once daily Inhala tion False Ventolin HFA 90 mcg/actuati on aerosol inhaler 2 puff Inhalation Every 4 hours as needed For COPD 2 puff 2023 Active 2023 90249 38642 0 Every 4 hours as needed Inhala tion False ProSource No Carb 15 gram-60 kcal/30 mL oral liquid 30ml By Mouth Twice daily For Protien supplement 30ml 01/30 Inactiv e 2023 10705 76820 5 Twice daily By Mouth False Albuterol sulfate 2.5 mg/3 mL (0.083 %) solution for nebulizatio n [generic] 3 ml Inhalation Every 6 hours as needed For wheezing 3 ml 2023 Active 2023 06011 97725 3 Every 6 hours as needed Inhala tion False Acetaminoph en 325 mg tablet [generic] 650 mg By Mouth Every 6 hours For Mild Pain 650 mg 01/29 Inactiv e 2023 49632 88838 0 Every 6 hours By Mouth False Tylenol 325 mg tablet 2 tabs By Mouth Every 4 hours as needed For Pain DO NOT EXCEED 3000 MG APAP/24 Hours 2 tabs 2023 Active 2023 69191 11448 0 Every 4 hours as needed By Mouth False Tylenol 325 mg tablet 2 tabs By Mouth Every 4 hours as needed For Fever >100 DO NOT EXCEED 3000 MG APAP/24 Hours 2 tabs 2023 Active 2023 12628 17852 0 Every 4 hours as needed By Mouth False Dulcolax (bisacodyl) 10 mg rectal suppository One Suppository per rectum PRN if Milk of Magnisia ineffective. Give on day 5 of no BM 1 sup 2023 Active 2023 41657 41036 1 Daily as needed Rectal False Fleet Enema 19 gram-7 gram/118 mL Administer per rectum PRN one time if dulcolax suppository not effective. Give on day 6 of no BM 1 2023 Active 2023 19167 53021 6 Daily as needed Rectal False Milk of Magnesia 400 mg/5 mL oral suspension [Magnesium hydroxide] PRN 30ml By Mouth Daily as needed for constipation one time daily if no BM, on day 4 of no BM (PRN refer to instructions) For Constipation 30 mL 2023 Active 2023 63863 73399 6 Daily as needed By Mouth False Oxycodone 5 mg tablet [generic] 01/29 Inactiv e 2023 85792 66353 1 Oxycodone 5 mg tablet [generic] 5mg By Mouth Every 4 hours as needed for severe pain for pain rate 7-10. For right pubis fracture 5mg 01/31 Inactiv e 2023 62704 42309 1 Every 4 hours as needed By Mouth False Cymbalta 30 mg capsule,del ayed release 30 mg By Mouth Once daily For Depression 30 mg 02/04 Inactiv e 2023 16055 20835 0 Once daily By Mouth False Acetaminoph en 500 mg tablet [generic] 1000 mg By Mouth Twice daily not to exceed 3gm APAP in 24 hours For Pain 1000 mg 2023 Active 2023 67869 21528 8 Twice daily By Mouth False Healthshake 118 ml BID 118 ml By Mouth Twice daily Healthshake 118 ml BID For MNA of 7 - malnourished - please record total ml consumed 118 ml 2023 Active 2023 Twice daily By Mouth False Oxycodone 5 mg tablet [generic] 01/31 Inactiv e 2023 79833 00731 1 Oxycodone 5 mg tablet [generic] 5mg By Mouth Every 4 hours as needed for severe pain for pain rate 7-10. For right pubis fracture 5mg 02/01 Inactiv e 2023 84568 47753 1 Every 4 hours as needed By Mouth False Oxycodone 5 mg tablet [generic] 5mg By Mouth Every 4 hours as needed for severe pain 7-10 For right pubis fx 5mg 2023 Active 2023 03541 21171 1 Every 4 hours as needed By Mouth False Cymbalta 60 mg capsule,del ayed release 60mg Once daily depression 60mg 2023 Active 2023 98350 09281 0 Once daily By Mouth False Enoxaparin 40 mg/0.4 mL subcutaneou s syringe [generic] 20mg Subcutaneous Once daily For anticoag 20mg 2023 Active 2023 26712 48822 0 Once daily Subcut aneous False Problems [...] Temperature SpO2 Blood Sugar Pulse Respirations 210 19973 7 78.00 mm[Hg] - Lying Down 186.00 mm[Hg] - Lying Down 109.80 NI 97.90 Forehead Scan 91.00 % 92.00/ min 18.00/min 210 92103 1 74.00 mm[Hg] - Lying Down 147.00 mm[Hg] - Lying Down 85.00/ min 211 70306 2 72.00 mm[Hg] - Sitting 138.00 mm[Hg] - Sitting 98.40 Tympanic 86.00/ min 18.00/min 211 92250 2 59.00 mm[Hg] - Sitting 117.00 mm[Hg] - Sitting 98.20 Tympanic 99.00 % 81.00/ min 18.00/min 211 24236 5 69.00 mm[Hg] - Sitting 145.00 mm[Hg] - Sitting 211 52944 9 69.00 mm[Hg] - Sitting 145.00 mm[Hg] - Sitting 211 94406 5 69.00 mm[Hg] - Sitting 145.00 mm[Hg] - Sitting 211 94794 6 69.00 mm[Hg] - Sitting 212 84151 7 59.00 mm[Hg] - Sitting 117.00 mm[Hg] - Sitting 98.20 Tympanic 81.00/ min 18.00/min 212 82559 9 97.80 Tympanic 26179 6 55.00 mm[Hg] - Sitting 109.00 mm[Hg] - Sitting 97.30 Tympanic 94.00 % 75.00/ min 18.00/min 46513 212 78512 5 68.00 mm[Hg] - Sitting 128.00 mm[Hg] - Sitting 97.80 Tympanic 80.00/ min 18.00/min 57086 212 10178 4 97.50 Tympanic 14997 212 01679 9 72141 212 69724 6 71.00 mm[Hg] - Sitting 117.00 mm[Hg] - Sitting 50429 213 14826 0 60.00 mm[Hg] - Sitting 116.00 mm[Hg] - Sitting 98.40 Forehead Scan 94.00 % 72.00/ min 16.00/min 77123 213 21467 7 70.00 mm[Hg] - Sitting 118.00 mm[Hg] - Sitting 98.00 Tympanic 82.00/ min 18.00/min 74214 213 56746 3 97.90 Tympanic 11392 213 42454 5 73.00 mm[Hg] - Lying Down 127.00 mm[Hg] - Lying Down 56347 213 15618 3 01731 214 29419 1 62.00 mm[Hg] - Sitting 127.00 mm[Hg] - Sitting 97.80 Tympanic 94.00 % 72.00/ min 16.00/min 28668 214 17323 4 59.00 mm[Hg] - Lying Down 113.00 mm[Hg] - Lying Down 40069 215 76652 0 56.00 mm[Hg] - Sitting 101.00 mm[Hg] - Sitting 97.80 Tympanic 95.00 % 71.00/ min 16.00/min 21599 215 05799 5 62 NI 84491 215 36236 8 57.00 mm[Hg] - Lying Down 113.00 mm[Hg] - Lying Down 00862 216 19658 3 71.00 mm[Hg] - Sitting 161.00 mm[Hg] - Sitting 98.10 Tympanic 93.00 % 81.00/ min 16.00/min 61965 216 89180 1 72.00 mm[Hg] - Sitting 115.00 mm[Hg] - Sitting 88352 217 70900 2 31767 217 47077 4 62.00 mm[Hg] - Sitting 112.00 mm[Hg] - Sitting 48648 217 17748 3 57.00 mm[Hg] - Sitting 114.00 mm[Hg] - Sitting 98.30 Tympanic 98.00 % 78.00/ min 20.00/min 92389 217 69487 4 62.00 mm[Hg] - Lying Down 111.00 mm[Hg] - Lying Down 64471 218 08376 0 70.00 mm[Hg] - Sitting 158.00 mm[Hg] - Sitting 97.60 Tympanic 97.00 % 68.00/ min 18.00/min 31939 218 71760 5 65.00 mm[Hg] - Lying Down 113.00 mm[Hg] - Lying Down 04953 219 08121 1 67.00 mm[Hg] - Sitting 112.00 mm[Hg] - Sitting 54331 220 11675 0 82.00 mm[Hg] - Sitting 160.00 mm[Hg] - Sitting 97.90 Forehead Scan 95.00 % 87.00/ min 16.00/min 23445 220 42331 7 69.00 mm[Hg] - Sitting 119.00 mm[Hg] - Sitting 55265 221 43954 1 82.00 mm[Hg] - Sitting 156.00 mm[Hg] - Sitting 98.20 Tympanic 95.00 % 72.00/ min 18.00/min 25971 221 21819 1 78.00 mm[Hg] - Sitting 148.00 mm[Hg] - Sitting 93159 222 10731 0 81.00 mm[Hg] - Sitting 161.00 mm[Hg] - Sitting 97.70 Tympanic 94.00 % 80.00/ min 18.00/min 59487 222 11111 3 87.00 mm[Hg] - Sitting 141.00 mm[Hg] - Sitting 83706 223 58806 9 68.00 mm[Hg] - Sitting 138.00 mm[Hg] - Sitting 98.10 Tympanic 92.00 % 85.00/ min 18.00/min 19016 223 01016 4 67.00 mm[Hg] - Sitting 128.00 mm[Hg] - Sitting 96548 224 00658 6 54594 224 27906 5 73.00 mm[Hg] - Lying Down 151.00 mm[Hg] - Lying Down 98.40 Tympanic 95.00 % 75.00/ min 18.00/min 01452 224 36335 3 63.00 mm[Hg] - Sitting 124.00 mm[Hg] - Sitting 72338 225 43443 1 97.30 Tympanic 95.00 % 72.00/ min 20.00/min 225 97604 6 67.00 mm[Hg] - Sitting 132.00 mm[Hg] - Sitting 226 14861 2 67.00 mm[Hg] - Sitting 121.00 mm[Hg] - Sitting 227 60774 0 70.00 mm[Hg] - Sitting 137.00 mm[Hg] - Sitting 98.70 Forehead Scan 96.00 % 70.00/ min 16.00/min 227 33582 6 69.00 mm[Hg] - Sitting 131.00 mm[Hg] - Sitting 228 05542 7 79.00 mm[Hg] - Lying Down 181.00 mm[Hg] - Lying Down 98.40 Tympanic 98.00 % 75.00/ min 20.00/min 228 43709 1 68.00 mm[Hg] - Lying Down 130.00 mm[Hg] - Lying Down
--- OUTSIDE RECORDS SUMMARY | 2024-04-10 03:17 | External Medical Summary | Continuity Of Care Document ---
Author Name Unknown Address [address] [address] [facility] () Care Team Providers Care Retail Team Member Name Role Phone DO Alonso Amy Primary Care Provider [phone] Allergies Allergy Reaction Start Date End Date [...] 3 0.1 mL 01/29 Inactiv e 2023 87907 44642 0 1 time Intrad ermal False Tubersol 5 tub. unit/0.1 mL intradermal injection solution [Tuberculin PPD] 0.1mL Intradermal 1 time For PPD 2nd Step Give 2nd Step PPD Day 1 and Read results Day 3 (schedule 7 days after 1st READ) 0.1mL 02/07 Inactiv e 2023 77508 36712 0 1 time Intrad ermal False Oxycodone 5 mg tablet [generic] 5mg By Mouth Every 4 hours as needed for severe pain for pain rate 7-10. For right pubis fracture 5mg 01/27 Inactiv e 2023 75530 99620 1 Every 4 hours as needed By Mouth False OXYCODONE 5 MG TABLET [GENERIC]IM MEDIATE RELEASE 2.5mg By Mouth Every 4 hours as needed tablet po for moderate pain, pain rate 4-6 on pain scale 1-10. For pain 2.5mg 01/27 Inactiv e 2023 Every 4 hours as needed By Mouth False Oxycodone 5 mg tablet [generic] 01/27 Inactiv e 2023 98307 43171 1 Oxycodone 5 mg tablet [generic] 5mg By Mouth Every 4 hours as needed for severe pain for pain rate 7-10. For right pubis fracture 5mg 01/29 Inactiv e 2023 80155 36832 1 Every 4 hours as needed By [...] For Muscle spasms 175mg 2023 Active 2023 12043 12109 1 Every 6 hours as needed By Mouth False Cephalexin 500 mg capsule [generic] 500mg By Mouth Every 8 hours For UTI 500mg 01/30 Inactiv e 2023 01869 05701 1 Every 8 hours By Mouth False Aspirin 81 mg chewable tablet [generic] 81 mg By Mouth Once daily For AAA 81 mg 2023 Active 2023 61034 22249 6 Once daily By Mouth False Colace 100 mg capsule 100mg By Mouth Twice daily For constipation 100mg 2023 Active 2023 09635 34390 1 Twice daily By Mouth False Enoxaparin 300 mg/3 mL subcutaneou s solution [generic] 20mg Subcutaneous Once daily For anticoag. 20mg 02/06 Inactiv e 2023 70235 65520 1 Once daily Subcut aneous False Losartan 50 mg tablet [generic] 50 By Mouth Once daily For HTN 50 2023 Active 2023 30255 96390 9 Once daily By Mouth False Miralax 17 gram/dose oral powder 17 gram By Mouth Once daily For contispation 17 gram 2023 Active 2023 18656 06528 0 Once daily By Mouth False Senna 8.6 mg tablet 2 tabs By Mouth Once daily For constipation 2 tabs 2023 Active 2023 65871 35986 1 Once daily By Mouth False Simvastatin 20 mg tablet [generic] 20 mg By Mouth Once daily For Hyperlipidemi a 20 mg 2023 Active 2023 05533 15984 0 Once daily By Mouth False Spiriva with HandiHaler 18 mcg and inhalation capsules 1 capsule Inhalation Once daily For COPD 1 capsule 2023 Active 2023 84358 31523 1 Once daily Inhala tion False Ventolin HFA 90 mcg/actuati on aerosol inhaler 2 puff Inhalation Every 4 hours as needed For COPD 2 puff 2023 Active 2023 08614 81686 0 Every 4 hours as needed Inhala tion False ProSource No Carb 15 gram-60 kcal/30 mL oral liquid 30ml By Mouth Twice daily For Protien supplement 30ml 01/30 Inactiv e 2023 41321 55407 5 Twice daily By Mouth False Albuterol sulfate 2.5 mg/3 mL (0.083 %) solution for nebulizatio n [generic] 3 ml Inhalation Every 6 hours as needed For wheezing 3 ml 2023 Active 2023 62444 30501 3 Every 6 hours as needed Inhala tion False Acetaminoph en 325 mg tablet [generic] 650 mg By Mouth Every 6 hours For Mild Pain 650 mg 01/29 Inactiv e 2023 16537 19516 0 Every 6 hours By Mouth False Tylenol 325 mg tablet 2 tabs By Mouth Every 4 hours as needed For Pain DO NOT EXCEED 3000 MG APAP/24 Hours 2 tabs 2023 Active 2023 70357 32730 0 Every 4 hours as needed By Mouth False Tylenol 325 mg tablet 2 tabs By Mouth Every 4 hours as needed For Fever >100 DO NOT EXCEED 3000 MG APAP/24 Hours 2 tabs 2023 Active 2023 30506 89624 0 Every 4 hours as needed By Mouth False Dulcolax (bisacodyl) 10 mg rectal suppository One Suppository per rectum PRN if Milk of Magnisia ineffective. Give on day 5 of no BM 1 sup 2023 Active 2023 19213 86528 1 Daily as needed Rectal False Fleet Enema 19 gram-7 gram/118 mL Administer per rectum PRN one time if dulcolax suppository not effective. Give on day 6 of no BM 1 2023 Active 2023 52637 49443 6 Daily as needed Rectal False Milk of Magnesia 400 mg/5 mL oral suspension [Magnesium hydroxide] PRN 30ml By Mouth Daily as needed for constipation one time daily if no BM, on day 4 of no BM (PRN refer to instructions) For Constipation 30 mL 2023 Active 2023 99941 81476 6 Daily as needed By Mouth False Oxycodone 5 mg tablet [generic] 01/29 Inactiv e 2023 16925 87659 1 Oxycodone 5 mg tablet [generic] 5mg By Mouth Every 4 hours as needed for severe pain for pain rate 7-10. For right pubis fracture 5mg 01/31 Inactiv e 2023 46006 90262 1 Every 4 hours as needed By Mouth False Cymbalta 30 mg capsule,del ayed release 30 mg By Mouth Once daily For Depression 30 mg 02/04 Inactiv e 2023 95328 32880 0 Once daily By Mouth False Acetaminoph en 500 mg tablet [generic] 1000 mg By Mouth Twice daily not to exceed 3gm APAP in 24 hours For Pain 1000 mg 2023 Active 2023 48737 14010 8 Twice daily By Mouth False Healthshake 118 ml BID 118 ml By Mouth Twice daily Healthshake 118 ml BID For MNA of 7 - malnourished - please record total ml consumed 118 ml 2023 Active 2023 Twice daily By Mouth False Oxycodone 5 mg tablet [generic] 01/31 Inactiv e 2023 16139 07990 1 Oxycodone 5 mg tablet [generic] 5mg By Mouth Every 4 hours as needed for severe pain for pain rate 7-10. For right pubis fracture 5mg 02/01 Inactiv e 2023 93144 59832 1 Every 4 hours as needed By Mouth False Oxycodone 5 mg tablet [generic] 5mg By Mouth Every 4 hours as needed for severe pain 7-10 For right pubis fx 5mg 2023 Active 2023 69774 51325 1 Every 4 hours as needed By Mouth False Cymbalta 60 mg capsule,del ayed release 60mg Once daily depression 60mg 2023 Active 2023 19713 65181 0 Once daily By Mouth False Enoxaparin 40 mg/0.4 mL subcutaneou s syringe [generic] 20mg Subcutaneous Once daily For anticoag 20mg 2023 Active 2023 06757 31636 0 Once daily Subcut aneous False Problems [...] Temperature SpO2 Blood Sugar Pulse Respirations 210 23247 7 78.00 mm[Hg] - Lying Down 186.00 mm[Hg] - Lying Down 109.80 NI 97.90 Forehead Scan 91.00 % 92.00/ min 18.00/min 210 16470 1 74.00 mm[Hg] - Lying Down 147.00 mm[Hg] - Lying Down 85.00/ min 211 73213 2 72.00 mm[Hg] - Sitting 138.00 mm[Hg] - Sitting 98.40 Tympanic 86.00/ min 18.00/min 211 58877 2 59.00 mm[Hg] - Sitting 117.00 mm[Hg] - Sitting 98.20 Tympanic 99.00 % 81.00/ min 18.00/min 211 18587 5 69.00 mm[Hg] - Sitting 145.00 mm[Hg] - Sitting 211 34628 9 69.00 mm[Hg] - Sitting 145.00 mm[Hg] - Sitting 211 21463 5 69.00 mm[Hg] - Sitting 145.00 mm[Hg] - Sitting 211 27792 6 69.00 mm[Hg] - Sitting 212 10303 7 59.00 mm[Hg] - Sitting 117.00 mm[Hg] - Sitting 98.20 Tympanic 81.00/ min 18.00/min 212 80134 9 97.80 Tympanic 91825 6 55.00 mm[Hg] - Sitting 109.00 mm[Hg] - Sitting 97.30 Tympanic 94.00 % 75.00/ min 18.00/min 80227 212 76819 5 68.00 mm[Hg] - Sitting 128.00 mm[Hg] - Sitting 97.80 Tympanic 80.00/ min 18.00/min 45167 212 42968 4 97.50 Tympanic 67996 212 58802 9 83479 212 12607 6 71.00 mm[Hg] - Sitting 117.00 mm[Hg] - Sitting 01939 213 13062 0 60.00 mm[Hg] - Sitting 116.00 mm[Hg] - Sitting 98.40 Forehead Scan 94.00 % 72.00/ min 16.00/min 55475 213 69043 7 70.00 mm[Hg] - Sitting 118.00 mm[Hg] - Sitting 98.00 Tympanic 82.00/ min 18.00/min 74111 213 58997 3 97.90 Tympanic 76483 213 18341 5 73.00 mm[Hg] - Lying Down 127.00 mm[Hg] - Lying Down 04430 213 85137 3 59305 214 76910 1 62.00 mm[Hg] - Sitting 127.00 mm[Hg] - Sitting 97.80 Tympanic 94.00 % 72.00/ min 16.00/min 67269 214 13259 4 59.00 mm[Hg] - Lying Down 113.00 mm[Hg] - Lying Down 25931 215 75811 0 56.00 mm[Hg] - Sitting 101.00 mm[Hg] - Sitting 97.80 Tympanic 95.00 % 71.00/ min 16.00/min 75922 215 12611 5 62 NI 88558 215 62606 8 57.00 mm[Hg] - Lying Down 113.00 mm[Hg] - Lying Down 07201 216 02979 3 71.00 mm[Hg] - Sitting 161.00 mm[Hg] - Sitting 98.10 Tympanic 93.00 % 81.00/ min 16.00/min 84091 216 37443 1 72.00 mm[Hg] - Sitting 115.00 mm[Hg] - Sitting 55223 217 44056 2 09206 217 36009 4 62.00 mm[Hg] - Sitting 112.00 mm[Hg] - Sitting 65288 217 74038 3 57.00 mm[Hg] - Sitting 114.00 mm[Hg] - Sitting 98.30 Tympanic 98.00 % 78.00/ min 20.00/min 26298 217 41042 4 62.00 mm[Hg] - Lying Down 111.00 mm[Hg] - Lying Down 23920 218 80726 0 70.00 mm[Hg] - Sitting 158.00 mm[Hg] - Sitting 97.60 Tympanic 97.00 % 68.00/ min 18.00/min 76344 218 41574 5 65.00 mm[Hg] - Lying Down 113.00 mm[Hg] - Lying Down 19517 219 72000 1 67.00 mm[Hg] - Sitting 112.00 mm[Hg] - Sitting 25236 220 66312 0 82.00 mm[Hg] - Sitting 160.00 mm[Hg] - Sitting 97.90 Forehead Scan 95.00 % 87.00/ min 16.00/min 72098 220 38290 7 69.00 mm[Hg] - Sitting 119.00 mm[Hg] - Sitting 79026 221 22925 1 82.00 mm[Hg] - Sitting 156.00 mm[Hg] - Sitting 98.20 Tympanic 95.00 % 72.00/ min 18.00/min 32719 221 22483 1 78.00 mm[Hg] - Sitting 148.00 mm[Hg] - Sitting 58409 222 86324 0 81.00 mm[Hg] - Sitting 161.00 mm[Hg] - Sitting 97.70 Tympanic 94.00 % 80.00/ min 18.00/min 53413 222 29834 3 87.00 mm[Hg] - Sitting 141.00 mm[Hg] - Sitting 52312 223 03499 9 68.00 mm[Hg] - Sitting 138.00 mm[Hg] - Sitting 98.10 Tympanic 92.00 % 85.00/ min 18.00/min 12441 223 87101 4 67.00 mm[Hg] - Sitting 128.00 mm[Hg] - Sitting 59198 224 15918 6 17286 224 09172 5 73.00 mm[Hg] - Lying Down 151.00 mm[Hg] - Lying Down 98.40 Tympanic 95.00 % 75.00/ min 18.00/min 21119 224 37633 3 63.00 mm[Hg] - Sitting 124.00 mm[Hg] - Sitting 80676 225 85490 1 97.30 Tympanic 95.00 % 72.00/ min 20.00/min 225 85339 6 67.00 mm[Hg] - Sitting 132.00 mm[Hg] - Sitting 226 36054 2 67.00 mm[Hg] - Sitting 121.00 mm[Hg] - Sitting
--- OUTSIDE RECORDS SUMMARY | 2024-04-10 03:17 | External Medical Summary | Continuity Of Care Document ---
Author Name Unknown Address [address] [address] Organization [facility] () Care Team Providers Care Painter Rough Name Role Phone DO Alonso Amy Primary Care Provider [phone] Allergies Allergy Reaction Start Date End Date [...] 3 0.1 mL 01/29 Inactiv e 2023 65891 74128 0 1 time Intrad ermal False Tubersol 5 tub. unit/0.1 mL intradermal injection solution [Tuberculin PPD] 0.1mL Intradermal 1 time For PPD 2nd Step Give 2nd Step PPD Day 1 and Read results Day 3 (schedule 7 days after 1st READ) 0.1mL 02/07 Inactiv e 2023 70468 11222 0 1 time Intrad ermal False Oxycodone 5 mg tablet [generic] 5mg By Mouth Every 4 hours as needed for severe pain for pain rate 7-10. For right pubis fracture 5mg 01/27 Inactiv e 2023 52697 53559 1 Every 4 hours as needed By Mouth False OXYCODONE 5 MG TABLET [GENERIC]IM MEDIATE RELEASE 2.5mg By Mouth Every 4 hours as needed tablet po for moderate pain, pain rate 4-6 on pain scale 1-10. For pain 2.5mg 01/27 Inactiv e 2023 Every 4 hours as needed By Mouth False Oxycodone 5 mg tablet [generic] 01/27 Inactiv e 2023 59699 68882 1 Oxycodone 5 mg tablet [generic] 5mg By Mouth Every 4 hours as needed for severe pain for pain rate 7-10. For right pubis fracture 5mg 01/29 Inactiv e 2023 68874 61365 1 Every 4 hours as needed By [...] For Muscle spasms 175mg 2023 Active 2023 25279 88716 1 Every 6 hours as needed By Mouth False Cephalexin 500 mg capsule [generic] 500mg By Mouth Every 8 hours For UTI 500mg 01/30 Inactiv e 2023 63418 52782 1 Every 8 hours By Mouth False Aspirin 81 mg chewable tablet [generic] 81 mg By Mouth Once daily For AAA 81 mg 2023 Active 2023 95345 08326 6 Once daily By Mouth False Colace 100 mg capsule 100mg By Mouth Twice daily For constipation 100mg 2023 Active 2023 81998 90828 1 Twice daily By Mouth False Enoxaparin 300 mg/3 mL subcutaneou s solution [generic] 20mg Subcutaneous Once daily For anticoag. 20mg 02/06 Inactiv e 2023 40565 68067 1 Once daily Subcut aneous False Losartan 50 mg tablet [generic] 50 By Mouth Once daily For HTN 50 2023 Active 2023 70197 70390 9 Once daily By Mouth False Miralax 17 gram/dose oral powder 17 gram By Mouth Once daily For contispation 17 gram 2023 Active 2023 39288 88177 0 Once daily By Mouth False Senna 8.6 mg tablet 2 tabs By Mouth Once daily For constipation 2 tabs 2023 Active 2023 40376 75996 1 Once daily By Mouth False Simvastatin 20 mg tablet [generic] 20 mg By Mouth Once daily For Hyperlipidemi a 20 mg 2023 Active 2023 73925 11913 0 Once daily By Mouth False Spiriva with HandiHaler 18 mcg and inhalation capsules 1 capsule Inhalation Once daily For COPD 1 capsule 2023 Active 2023 43930 98360 1 Once daily Inhala tion False Ventolin HFA 90 mcg/actuati on aerosol inhaler 2 puff Inhalation Every 4 hours as needed For COPD 2 puff 2023 Active 2023 50105 98287 0 Every 4 hours as needed Inhala tion False ProSource No Carb 15 gram-60 kcal/30 mL oral liquid 30ml By Mouth Twice daily For Protien supplement 30ml 01/30 Inactiv e 2023 74396 57844 5 Twice daily By Mouth False Albuterol sulfate 2.5 mg/3 mL (0.083 %) solution for nebulizatio n [generic] 3 ml Inhalation Every 6 hours as needed For wheezing 3 ml 2023 Active 2023 51112 17086 3 Every 6 hours as needed Inhala tion False Acetaminoph en 325 mg tablet [generic] 650 mg By Mouth Every 6 hours For Mild Pain 650 mg 01/29 Inactiv e 2023 85605 63530 0 Every 6 hours By Mouth False Tylenol 325 mg tablet 2 tabs By Mouth Every 4 hours as needed For Pain DO NOT EXCEED 3000 MG APAP/24 Hours 2 tabs 2023 Active 2023 32449 10105 0 Every 4 hours as needed By Mouth False Tylenol 325 mg tablet 2 tabs By Mouth Every 4 hours as needed For Fever >100 DO NOT EXCEED 3000 MG APAP/24 Hours 2 tabs 2023 Active 2023 95814 93046 0 Every 4 hours as needed By Mouth False Dulcolax (bisacodyl) 10 mg rectal suppository One Suppository per rectum PRN if Milk of Magnisia ineffective. Give on day 5 of no BM 1 sup 2023 Active 2023 77928 15321 1 Daily as needed Rectal False Fleet Enema 19 gram-7 gram/118 mL Administer per rectum PRN one time if dulcolax suppository not effective. Give on day 6 of no BM 1 2023 Active 2023 36510 09827 6 Daily as needed Rectal False Milk of Magnesia 400 mg/5 mL oral suspension [Magnesium hydroxide] PRN 30ml By Mouth Daily as needed for constipation one time daily if no BM, on day 4 of no BM (PRN refer to instructions) For Constipation 30 mL 2023 Active 2023 76090 27366 6 Daily as needed By Mouth False Oxycodone 5 mg tablet [generic] 01/29 Inactiv e 2023 21334 18545 1 Oxycodone 5 mg tablet [generic] 5mg By Mouth Every 4 hours as needed for severe pain for pain rate 7-10. For right pubis fracture 5mg 01/31 Inactiv e 2023 22746 22910 1 Every 4 hours as needed By Mouth False Cymbalta 30 mg capsule,del ayed release 30 mg By Mouth Once daily For Depression 30 mg 02/04 Inactiv e 2023 64667 72719 0 Once daily By Mouth False Acetaminoph en 500 mg tablet [generic] 1000 mg By Mouth Twice daily not to exceed 3gm APAP in 24 hours For Pain 1000 mg 2023 Active 2023 98346 94935 8 Twice daily By Mouth False Healthshake 118 ml BID 118 ml By Mouth Twice daily Healthshake 118 ml BID For MNA of 7 - malnourished - please record total ml consumed 118 ml 2023 Active 2023 Twice daily By Mouth False Oxycodone 5 mg tablet [generic] 01/31 Inactiv e 2023 20495 31151 1 Oxycodone 5 mg tablet [generic] 5mg By Mouth Every 4 hours as needed for severe pain for pain rate 7-10. For right pubis fracture 5mg 02/01 Inactiv e 2023 81798 93670 1 Every 4 hours as needed By Mouth False Oxycodone 5 mg tablet [generic] 5mg By Mouth Every 4 hours as needed for severe pain 7-10 For right pubis fx 5mg 2023 Active 2023 13981 72990 1 Every 4 hours as needed By Mouth False Cymbalta 60 mg capsule,del ayed release 60mg Once daily depression 60mg 2023 Active 2023 91223 08543 0 Once daily By Mouth False Enoxaparin 40 mg/0.4 mL subcutaneou s syringe [generic] 20mg Subcutaneous Once daily For anticoag 20mg 2023 Active 2023 66047 58819 0 Once daily Subcut aneous False Problems [...] Temperature SpO2 Blood Sugar Pulse Respirations 210 90267 7 78.00 mm[Hg] - Lying Down 186.00 mm[Hg] - Lying Down 109.80 NI 97.90 Forehead Scan 91.00 % 92.00/ min 18.00/min 210 88474 1 74.00 mm[Hg] - Lying Down 147.00 mm[Hg] - Lying Down 85.00/ min 211 17306 2 72.00 mm[Hg] - Sitting 138.00 mm[Hg] - Sitting 98.40 Tympanic 86.00/ min 18.00/min 211 45287 2 59.00 mm[Hg] - Sitting 117.00 mm[Hg] - Sitting 98.20 Tympanic 99.00 % 81.00/ min 18.00/min 211 65536 5 69.00 mm[Hg] - Sitting 145.00 mm[Hg] - Sitting 211 60244 9 69.00 mm[Hg] - Sitting 145.00 mm[Hg] - Sitting 211 73853 5 69.00 mm[Hg] - Sitting 145.00 mm[Hg] - Sitting 211 70811 6 69.00 mm[Hg] - Sitting 212 95244 7 59.00 mm[Hg] - Sitting 117.00 mm[Hg] - Sitting 98.20 Tympanic 81.00/ min 18.00/min 212 73620 9 97.80 Tympanic 31475 6 55.00 mm[Hg] - Sitting 109.00 mm[Hg] - Sitting 97.30 Tympanic 94.00 % 75.00/ min 18.00/min 07708 212 69729 5 68.00 mm[Hg] - Sitting 128.00 mm[Hg] - Sitting 97.80 Tympanic 80.00/ min 18.00/min 09823 212 49286 4 97.50 Tympanic 07490 212 70002 9 73219 212 20650 6 71.00 mm[Hg] - Sitting 117.00 mm[Hg] - Sitting 79505 213 64194 0 60.00 mm[Hg] - Sitting 116.00 mm[Hg] - Sitting 98.40 Forehead Scan 94.00 % 72.00/ min 16.00/min 22515 213 86048 7 70.00 mm[Hg] - Sitting 118.00 mm[Hg] - Sitting 98.00 Tympanic 82.00/ min 18.00/min 82771 213 76720 3 97.90 Tympanic 29525 213 95427 5 73.00 mm[Hg] - Lying Down 127.00 mm[Hg] - Lying Down 72386 213 82097 3 40586 214 82714 1 62.00 mm[Hg] - Sitting 127.00 mm[Hg] - Sitting 97.80 Tympanic 94.00 % 72.00/ min 16.00/min 98735 214 83493 4 59.00 mm[Hg] - Lying Down 113.00 mm[Hg] - Lying Down 38051 215 76339 0 56.00 mm[Hg] - Sitting 101.00 mm[Hg] - Sitting 97.80 Tympanic 95.00 % 71.00/ min 16.00/min 02235 215 03138 5 62 NI 90490 215 03912 8 57.00 mm[Hg] - Lying Down 113.00 mm[Hg] - Lying Down 23162 216 07549 3 71.00 mm[Hg] - Sitting 161.00 mm[Hg] - Sitting 98.10 Tympanic 93.00 % 81.00/ min 16.00/min 74144 216 93773 1 72.00 mm[Hg] - Sitting 115.00 mm[Hg] - Sitting 51660 217 06711 2 95992 217 96497 4 62.00 mm[Hg] - Sitting 112.00 mm[Hg] - Sitting 33644 217 77017 3 57.00 mm[Hg] - Sitting 114.00 mm[Hg] - Sitting 98.30 Tympanic 98.00 % 78.00/ min 20.00/min 09071 217 65184 4 62.00 mm[Hg] - Lying Down 111.00 mm[Hg] - Lying Down 31616 218 42570 0 70.00 mm[Hg] - Sitting 158.00 mm[Hg] - Sitting 97.60 Tympanic 97.00 % 68.00/ min 18.00/min 88547 218 54220 5 65.00 mm[Hg] - Lying Down 113.00 mm[Hg] - Lying Down 93810 219 53576 1 67.00 mm[Hg] - Sitting 112.00 mm[Hg] - Sitting 22589 220 78445 0 82.00 mm[Hg] - Sitting 160.00 mm[Hg] - Sitting 97.90 Forehead Scan 95.00 % 87.00/ min 16.00/min 02985 220 97862 7 69.00 mm[Hg] - Sitting 119.00 mm[Hg] - Sitting 19591 221 92347 1 82.00 mm[Hg] - Sitting 156.00 mm[Hg] - Sitting 98.20 Tympanic 95.00 % 72.00/ min 18.00/min 16770 221 07998 1 78.00 mm[Hg] - Sitting 148.00 mm[Hg] - Sitting 70765 222 54518 0 81.00 mm[Hg] - Sitting 161.00 mm[Hg] - Sitting 97.70 Tympanic 94.00 % 80.00/ min 18.00/min 55826 222 56193 3 87.00 mm[Hg] - Sitting 141.00 mm[Hg] - Sitting 08569 223 35963 9 68.00 mm[Hg] - Sitting 138.00 mm[Hg] - Sitting 98.10 Tympanic 92.00 % 85.00/ min 18.00/min 33834 223 53120 4 67.00 mm[Hg] - Sitting 128.00 mm[Hg] - Sitting
--- OUTSIDE RECORDS SUMMARY | 2024-04-10 03:17 | External Medical Summary | Continuity Of Care Document ---
Author Name Unknown Address [address] [address] [facility] () Care Team Providers Care Clinical Exercise Specialist Name Role Phone DO Alonso Amy Primary Care Provider [phone] Allergies Allergy Reaction Start Date End Date [...] 3 0.1 mL 01/29 Inactiv e 2023 25563 58395 0 1 time Intrad ermal False Tubersol 5 tub. unit/0.1 mL intradermal injection solution [Tuberculin PPD] 0.1mL Intradermal 1 time For PPD 2nd Step Give 2nd Step PPD Day 1 and Read results Day 3 (schedule 7 days after 1st READ) 0.1mL 02/07 Inactiv e 2023 37578 97632 0 1 time Intrad ermal False Oxycodone 5 mg tablet [generic] 5mg By Mouth Every 4 hours as needed for severe pain for pain rate 7-10. For right pubis fracture 5mg 01/27 Inactiv e 2023 22637 58185 1 Every 4 hours as needed By Mouth False OXYCODONE 5 MG TABLET [GENERIC]IM MEDIATE RELEASE 2.5mg By Mouth Every 4 hours as needed tablet po for moderate pain, pain rate 4-6 on pain scale 1-10. For pain 2.5mg 01/27 Inactiv e 2023 Every 4 hours as needed By Mouth False Oxycodone 5 mg tablet [generic] 01/27 Inactiv e 2023 70115 07218 1 Oxycodone 5 mg tablet [generic] 5mg By Mouth Every 4 hours as needed for severe pain for pain rate 7-10. For right pubis fracture 5mg 01/29 Inactiv e 2023 11943 00373 1 Every 4 hours as needed By [...] For Muscle spasms 175mg 2023 Active 2023 00105 27977 1 Every 6 hours as needed By Mouth False Cephalexin 500 mg capsule [generic] 500mg By Mouth Every 8 hours For UTI 500mg 01/30 Inactiv e 2023 06699 80523 1 Every 8 hours By Mouth False Aspirin 81 mg chewable tablet [generic] 81 mg By Mouth Once daily For AAA 81 mg 2023 Active 2023 52265 95943 6 Once daily By Mouth False Colace 100 mg capsule 100mg By Mouth Twice daily For constipation 100mg 2023 Active 2023 02671 06667 1 Twice daily By Mouth False Enoxaparin 300 mg/3 mL subcutaneou s solution [generic] 20mg Subcutaneous Once daily For anticoag. 20mg 02/06 Inactiv e 2023 73100 73871 1 Once daily Subcut aneous False Losartan 50 mg tablet [generic] 50 By Mouth Once daily For HTN 50 2023 Active 2023 23141 54028 9 Once daily By Mouth False Miralax 17 gram/dose oral powder 17 gram By Mouth Once daily For contispation 17 gram 2023 Active 2023 92130 32529 0 Once daily By Mouth False Senna 8.6 mg tablet 2 tabs By Mouth Once daily For constipation 2 tabs 2023 Active 2023 55184 53223 1 Once daily By Mouth False Simvastatin 20 mg tablet [generic] 20 mg By Mouth Once daily For Hyperlipidemi a 20 mg 2023 Active 2023 11562 17986 0 Once daily By Mouth False Spiriva with HandiHaler 18 mcg and inhalation capsules 1 capsule Inhalation Once daily For COPD 1 capsule 2023 Active 2023 99183 07871 1 Once daily Inhala tion False Ventolin HFA 90 mcg/actuati on aerosol inhaler 2 puff Inhalation Every 4 hours as needed For COPD 2 puff 2023 Active 2023 22806 57087 0 Every 4 hours as needed Inhala tion False ProSource No Carb 15 gram-60 kcal/30 mL oral liquid 30ml By Mouth Twice daily For Protien supplement 30ml 01/30 Inactiv e 2023 02623 12397 5 Twice daily By Mouth False Albuterol sulfate 2.5 mg/3 mL (0.083 %) solution for nebulizatio n [generic] 3 ml Inhalation Every 6 hours as needed For wheezing 3 ml 2023 Active 2023 50209 12766 3 Every 6 hours as needed Inhala tion False Acetaminoph en 325 mg tablet [generic] 650 mg By Mouth Every 6 hours For Mild Pain 650 mg 01/29 Inactiv e 2023 26564 06365 0 Every 6 hours By Mouth False Tylenol 325 mg tablet 2 tabs By Mouth Every 4 hours as needed For Pain DO NOT EXCEED 3000 MG APAP/24 Hours 2 tabs 2023 Active 2023 88589 54334 0 Every 4 hours as needed By Mouth False Tylenol 325 mg tablet 2 tabs By Mouth Every 4 hours as needed For Fever >100 DO NOT EXCEED 3000 MG APAP/24 Hours 2 tabs 2023 Active 2023 52754 73912 0 Every 4 hours as needed By Mouth False Dulcolax (bisacodyl) 10 mg rectal suppository One Suppository per rectum PRN if Milk of Magnisia ineffective. Give on day 5 of no BM 1 sup 2023 Active 2023 83845 09776 1 Daily as needed Rectal False Fleet Enema 19 gram-7 gram/118 mL Administer per rectum PRN one time if dulcolax suppository not effective. Give on day 6 of no BM 1 2023 Active 2023 00468 62057 6 Daily as needed Rectal False Milk of Magnesia 400 mg/5 mL oral suspension [Magnesium hydroxide] PRN 30ml By Mouth Daily as needed for constipation one time daily if no BM, on day 4 of no BM (PRN refer to instructions) For Constipation 30 mL 2023 Active 2023 26757 87530 6 Daily as needed By Mouth False Oxycodone 5 mg tablet [generic] 01/29 Inactiv e 2023 13704 09797 1 Oxycodone 5 mg tablet [generic] 5mg By Mouth Every 4 hours as needed for severe pain for pain rate 7-10. For right pubis fracture 5mg 01/31 Inactiv e 2023 46375 07602 1 Every 4 hours as needed By Mouth False Cymbalta 30 mg capsule,del ayed release 30 mg By Mouth Once daily For Depression 30 mg 02/04 Inactiv e 2023 68690 93212 0 Once daily By Mouth False Acetaminoph en 500 mg tablet [generic] 1000 mg By Mouth Twice daily not to exceed 3gm APAP in 24 hours For Pain 1000 mg 2023 Active 2023 87603 52493 8 Twice daily By Mouth False Healthshake 118 ml BID 118 ml By Mouth Twice daily Healthshake 118 ml BID For MNA of 7 - malnourished - please record total ml consumed 118 ml 2023 Active 2023 Twice daily By Mouth False Oxycodone 5 mg tablet [generic] 01/31 Inactiv e 2023 23227 77756 1 Oxycodone 5 mg tablet [generic] 5mg By Mouth Every 4 hours as needed for severe pain for pain rate 7-10. For right pubis fracture 5mg 02/01 Inactiv e 2023 54176 80399 1 Every 4 hours as needed By Mouth False Oxycodone 5 mg tablet [generic] 5mg By Mouth Every 4 hours as needed for severe pain 7-10 For right pubis fx 5mg 2023 Active 2023 74368 92944 1 Every 4 hours as needed By Mouth False Cymbalta 60 mg capsule,del ayed release 60mg Once daily depression 60mg 2023 Active 2023 05284 78104 0 Once daily By Mouth False Enoxaparin 40 mg/0.4 mL subcutaneou s syringe [generic] 20mg Subcutaneous Once daily For anticoag 20mg 2023 Active 2023 01748 36928 0 Once daily Subcut aneous False Problems [...] Temperature SpO2 Blood Sugar Pulse Respirations 210 37753 7 78.00 mm[Hg] - Lying Down 186.00 mm[Hg] - Lying Down 109.80 NI 97.90 Forehead Scan 91.00 % 92.00/ min 18.00/min 210 89616 1 74.00 mm[Hg] - Lying Down 147.00 mm[Hg] - Lying Down 85.00/ min 211 93909 2 72.00 mm[Hg] - Sitting 138.00 mm[Hg] - Sitting 98.40 Tympanic 86.00/ min 18.00/min 211 50607 2 59.00 mm[Hg] - Sitting 117.00 mm[Hg] - Sitting 98.20 Tympanic 99.00 % 81.00/ min 18.00/min 211 07156 5 69.00 mm[Hg] - Sitting 145.00 mm[Hg] - Sitting 211 67975 9 69.00 mm[Hg] - Sitting 145.00 mm[Hg] - Sitting 211 04576 5 69.00 mm[Hg] - Sitting 145.00 mm[Hg] - Sitting 211 98854 6 69.00 mm[Hg] - Sitting 212 06297 7 59.00 mm[Hg] - Sitting 117.00 mm[Hg] - Sitting 98.20 Tympanic 81.00/ min 18.00/min 212 57800 9 97.80 Tympanic 51196 6 55.00 mm[Hg] - Sitting 109.00 mm[Hg] - Sitting 97.30 Tympanic 94.00 % 75.00/ min 18.00/min 76677 212 64494 5 68.00 mm[Hg] - Sitting 128.00 mm[Hg] - Sitting 97.80 Tympanic 80.00/ min 18.00/min 69248 212 57815 4 97.50 Tympanic 04337 212 49621 9 64353 212 14186 6 71.00 mm[Hg] - Sitting 117.00 mm[Hg] - Sitting 72002 213 44924 0 60.00 mm[Hg] - Sitting 116.00 mm[Hg] - Sitting 98.40 Forehead Scan 94.00 % 72.00/ min 16.00/min 74865 213 13466 7 70.00 mm[Hg] - Sitting 118.00 mm[Hg] - Sitting 98.00 Tympanic 82.00/ min 18.00/min 93761 213 12352 3 97.90 Tympanic 68452 213 32615 5 73.00 mm[Hg] - Lying Down 127.00 mm[Hg] - Lying Down 03620 213 16501 3 15285 214 34029 1 62.00 mm[Hg] - Sitting 127.00 mm[Hg] - Sitting 97.80 Tympanic 94.00 % 72.00/ min 16.00/min 66358 214 61212 4 59.00 mm[Hg] - Lying Down 113.00 mm[Hg] - Lying Down 94097 215 31121 0 56.00 mm[Hg] - Sitting 101.00 mm[Hg] - Sitting 97.80 Tympanic 95.00 % 71.00/ min 16.00/min 86148 215 67142 5 62 NI 03834 215 29369 8 57.00 mm[Hg] - Lying Down 113.00 mm[Hg] - Lying Down 62647 216 70951 3 71.00 mm[Hg] - Sitting 161.00 mm[Hg] - Sitting 98.10 Tympanic 93.00 % 81.00/ min 16.00/min 70432 216 97146 1 72.00 mm[Hg] - Sitting 115.00 mm[Hg] - Sitting 00368 217 29832 2 37557 217 73592 4 62.00 mm[Hg] - Sitting 112.00 mm[Hg] - Sitting 10456 217 61306 3 57.00 mm[Hg] - Sitting 114.00 mm[Hg] - Sitting 98.30 Tympanic 98.00 % 78.00/ min 20.00/min 74948 217 59673 4 62.00 mm[Hg] - Lying Down 111.00 mm[Hg] - Lying Down 24544 218 56674 0 70.00 mm[Hg] - Sitting 158.00 mm[Hg] - Sitting 97.60 Tympanic 97.00 % 68.00/ min 18.00/min 92790 218 70720 5 65.00 mm[Hg] - Lying Down 113.00 mm[Hg] - Lying Down 37029 219 53800 1 67.00 mm[Hg] - Sitting 112.00 mm[Hg] - Sitting 77117 220 98271 0 82.00 mm[Hg] - Sitting 160.00 mm[Hg] - Sitting 97.90 Forehead Scan 95.00 % 87.00/ min 16.00/min 51839 220 72486 7 69.00 mm[Hg] - Sitting 119.00 mm[Hg] - Sitting 20932 221 00606 1 82.00 mm[Hg] - Sitting 156.00 mm[Hg] - Sitting 98.20 Tympanic 95.00 % 72.00/ min 18.00/min 28226 221 29920 1 78.00 mm[Hg] - Sitting 148.00 mm[Hg] - Sitting 58313 222 54369 0 81.00 mm[Hg] - Sitting 161.00 mm[Hg] - Sitting 97.70 Tympanic 94.00 % 80.00/ min 18.00/min 46527 222 53002 3 87.00 mm[Hg] - Sitting 141.00 mm[Hg] - Sitting 65543 223 66193 9 68.00 mm[Hg] - Sitting 138.00 mm[Hg] - Sitting 98.10 Tympanic 92.00 % 85.00/ min 18.00/min 06645 223 62524 4 67.00 mm[Hg] - Sitting 128.00 mm[Hg] - Sitting 91667 224 49607 6 23719 224 17663 5 73.00 mm[Hg] - Lying Down 151.00 mm[Hg] - Lying Down 98.40 Tympanic 95.00 % 75.00/ min 18.00/min 05429 224 96651 3 63.00 mm[Hg] - Sitting 124.00 mm[Hg] - Sitting 03399 225 41989 1 97.30 Tympanic 95.00 % 72.00/ min 20.00/min 225 44620 6 67.00 mm[Hg] - Sitting 132.00 mm[Hg] - Sitting 226 45842 2 67.00 mm[Hg] - Sitting 121.00 mm[Hg] - Sitting
--- OUTSIDE RECORDS SUMMARY | 2024-04-10 03:17 | External Medical Summary | Continuity Of Care Document ---
Author Name Unknown Address [address] [address] [facility] () Care Team Providers Care Single End Sewer Name Role Phone DO Alonso Amy Primary Care Provider [phone] Allergies Allergy Reaction Start Date End Date [...] 3 0.1 mL 01/29 Inactiv e 2023 31542 83389 0 1 time Intrad ermal False Tubersol 5 tub. unit/0.1 mL intradermal injection solution [Tuberculin PPD] 0.1mL Intradermal 1 time For PPD 2nd Step Give 2nd Step PPD Day 1 and Read results Day 3 (schedule 7 days after 1st READ) 0.1mL 02/07 Inactiv e 2023 07060 91786 0 1 time Intrad ermal False Oxycodone 5 mg tablet [generic] 5mg By Mouth Every 4 hours as needed for severe pain for pain rate 7-10. For right pubis fracture 5mg 01/27 Inactiv e 2023 22884 01935 1 Every 4 hours as needed By Mouth False OXYCODONE 5 MG TABLET [GENERIC]IM MEDIATE RELEASE 2.5mg By Mouth Every 4 hours as needed tablet po for moderate pain, pain rate 4-6 on pain scale 1-10. For pain 2.5mg 01/27 Inactiv e 2023 Every 4 hours as needed By Mouth False Oxycodone 5 mg tablet [generic] 01/27 Inactiv e 2023 88468 17061 1 Oxycodone 5 mg tablet [generic] 5mg By Mouth Every 4 hours as needed for severe pain for pain rate 7-10. For right pubis fracture 5mg 01/29 Inactiv e 2023 44024 51109 1 Every 4 hours as needed By [...] For Muscle spasms 175mg 2023 Active 2023 30068 09901 1 Every 6 hours as needed By Mouth False Cephalexin 500 mg capsule [generic] 500mg By Mouth Every 8 hours For UTI 500mg 01/30 Inactiv e 2023 85973 52536 1 Every 8 hours By Mouth False Aspirin 81 mg chewable tablet [generic] 81 mg By Mouth Once daily For AAA 81 mg 2023 Active 2023 51956 65694 6 Once daily By Mouth False Colace 100 mg capsule 100mg By Mouth Twice daily For constipation 100mg 2023 Active 2023 40850 36361 1 Twice daily By Mouth False Enoxaparin 300 mg/3 mL subcutaneou s solution [generic] 20mg Subcutaneous Once daily For anticoag. 20mg 02/06 Inactiv e 2023 03527 08645 1 Once daily Subcut aneous False Losartan 50 mg tablet [generic] 50 By Mouth Once daily For HTN 50 2023 Active 2023 97418 13508 9 Once daily By Mouth False Miralax 17 gram/dose oral powder 17 gram By Mouth Once daily For contispation 17 gram 2023 Active 2023 46461 85362 0 Once daily By Mouth False Senna 8.6 mg tablet 2 tabs By Mouth Once daily For constipation 2 tabs 2023 Active 2023 07951 08225 1 Once daily By Mouth False Simvastatin 20 mg tablet [generic] 20 mg By Mouth Once daily For Hyperlipidemi a 20 mg 2023 Active 2023 07828 49687 0 Once daily By Mouth False Spiriva with HandiHaler 18 mcg and inhalation capsules 1 capsule Inhalation Once daily For COPD 1 capsule 2023 Active 2023 96544 97791 1 Once daily Inhala tion False Ventolin HFA 90 mcg/actuati on aerosol inhaler 2 puff Inhalation Every 4 hours as needed For COPD 2 puff 2023 Active 2023 03447 10708 0 Every 4 hours as needed Inhala tion False ProSource No Carb 15 gram-60 kcal/30 mL oral liquid 30ml By Mouth Twice daily For Protien supplement 30ml 01/30 Inactiv e 2023 90408 47874 5 Twice daily By Mouth False Albuterol sulfate 2.5 mg/3 mL (0.083 %) solution for nebulizatio n [generic] 3 ml Inhalation Every 6 hours as needed For wheezing 3 ml 2023 Active 2023 83821 30427 3 Every 6 hours as needed Inhala tion False Acetaminoph en 325 mg tablet [generic] 650 mg By Mouth Every 6 hours For Mild Pain 650 mg 01/29 Inactiv e 2023 12976 58320 0 Every 6 hours By Mouth False Tylenol 325 mg tablet 2 tabs By Mouth Every 4 hours as needed For Pain DO NOT EXCEED 3000 MG APAP/24 Hours 2 tabs 2023 Active 2023 44863 04929 0 Every 4 hours as needed By Mouth False Tylenol 325 mg tablet 2 tabs By Mouth Every 4 hours as needed For Fever >100 DO NOT EXCEED 3000 MG APAP/24 Hours 2 tabs 2023 Active 2023 79358 95736 0 Every 4 hours as needed By Mouth False Dulcolax (bisacodyl) 10 mg rectal suppository One Suppository per rectum PRN if Milk of Magnisia ineffective. Give on day 5 of no BM 1 sup 2023 Active 2023 47519 63576 1 Daily as needed Rectal False Fleet Enema 19 gram-7 gram/118 mL Administer per rectum PRN one time if dulcolax suppository not effective. Give on day 6 of no BM 1 2023 Active 2023 55834 29269 6 Daily as needed Rectal False Milk of Magnesia 400 mg/5 mL oral suspension [Magnesium hydroxide] PRN 30ml By Mouth Daily as needed for constipation one time daily if no BM, on day 4 of no BM (PRN refer to instructions) For Constipation 30 mL 2023 Active 2023 95837 69987 6 Daily as needed By Mouth False Oxycodone 5 mg tablet [generic] 01/29 Inactiv e 2023 06863 81938 1 Oxycodone 5 mg tablet [generic] 5mg By Mouth Every 4 hours as needed for severe pain for pain rate 7-10. For right pubis fracture 5mg 01/31 Inactiv e 2023 31163 74958 1 Every 4 hours as needed By Mouth False Cymbalta 30 mg capsule,del ayed release 30 mg By Mouth Once daily For Depression 30 mg 02/04 Inactiv e 2023 23622 93507 0 Once daily By Mouth False Acetaminoph en 500 mg tablet [generic] 1000 mg By Mouth Twice daily not to exceed 3gm APAP in 24 hours For Pain 1000 mg 2023 Active 2023 84703 20893 8 Twice daily By Mouth False Healthshake 118 ml BID 118 ml By Mouth Twice daily Healthshake 118 ml BID For MNA of 7 - malnourished - please record total ml consumed 118 ml 2023 Active 2023 Twice daily By Mouth False Oxycodone 5 mg tablet [generic] 01/31 Inactiv e 2023 86737 93206 1 Oxycodone 5 mg tablet [generic] 5mg By Mouth Every 4 hours as needed for severe pain for pain rate 7-10. For right pubis fracture 5mg 02/01 Inactiv e 2023 98948 95818 1 Every 4 hours as needed By Mouth False Oxycodone 5 mg tablet [generic] 5mg By Mouth Every 4 hours as needed for severe pain 7-10 For right pubis fx 5mg 2023 Active 2023 97280 82749 1 Every 4 hours as needed By Mouth False Cymbalta 60 mg capsule,del ayed release 60mg Once daily depression 60mg 2023 Active 2023 11903 64371 0 Once daily By Mouth False Enoxaparin 40 mg/0.4 mL subcutaneou s syringe [generic] 20mg Subcutaneous Once daily For anticoag 20mg 2023 Active 2023 34255 89369 0 Once daily Subcut aneous False Problems [...] Temperature SpO2 Blood Sugar Pulse Respirations 210 64131 7 78.00 mm[Hg] - Lying Down 186.00 mm[Hg] - Lying Down 109.80 NI 97.90 Forehead Scan 91.00 % 92.00/ min 18.00/min 210 68963 1 74.00 mm[Hg] - Lying Down 147.00 mm[Hg] - Lying Down 85.00/ min 211 96989 2 72.00 mm[Hg] - Sitting 138.00 mm[Hg] - Sitting 98.40 Tympanic 86.00/ min 18.00/min 211 10668 2 59.00 mm[Hg] - Sitting 117.00 mm[Hg] - Sitting 98.20 Tympanic 99.00 % 81.00/ min 18.00/min 211 40962 5 69.00 mm[Hg] - Sitting 145.00 mm[Hg] - Sitting 211 76175 9 69.00 mm[Hg] - Sitting 145.00 mm[Hg] - Sitting 211 07289 5 69.00 mm[Hg] - Sitting 145.00 mm[Hg] - Sitting 211 35910 6 69.00 mm[Hg] - Sitting 212 12800 7 59.00 mm[Hg] - Sitting 117.00 mm[Hg] - Sitting 98.20 Tympanic 81.00/ min 18.00/min 212 93733 9 97.80 Tympanic 20095 6 55.00 mm[Hg] - Sitting 109.00 mm[Hg] - Sitting 97.30 Tympanic 94.00 % 75.00/ min 18.00/min 29963 212 70765 5 68.00 mm[Hg] - Sitting 128.00 mm[Hg] - Sitting 97.80 Tympanic 80.00/ min 18.00/min 68535 212 02448 4 97.50 Tympanic 37203 212 49058 9 84836 212 86020 6 71.00 mm[Hg] - Sitting 117.00 mm[Hg] - Sitting 06959 213 37815 0 60.00 mm[Hg] - Sitting 116.00 mm[Hg] - Sitting 98.40 Forehead Scan 94.00 % 72.00/ min 16.00/min 90119 213 46474 7 70.00 mm[Hg] - Sitting 118.00 mm[Hg] - Sitting 98.00 Tympanic 82.00/ min 18.00/min 84885 213 72117 3 97.90 Tympanic 38445 213 12914 5 73.00 mm[Hg] - Lying Down 127.00 mm[Hg] - Lying Down 26424 213 85184 3 70000 214 47632 1 62.00 mm[Hg] - Sitting 127.00 mm[Hg] - Sitting 97.80 Tympanic 94.00 % 72.00/ min 16.00/min 53912 214 35759 4 59.00 mm[Hg] - Lying Down 113.00 mm[Hg] - Lying Down 27756 215 95355 0 56.00 mm[Hg] - Sitting 101.00 mm[Hg] - Sitting 97.80 Tympanic 95.00 % 71.00/ min 16.00/min 80352 215 41581 5 62 NI 66999 215 57424 8 57.00 mm[Hg] - Lying Down 113.00 mm[Hg] - Lying Down 93659 216 64625 3 71.00 mm[Hg] - Sitting 161.00 mm[Hg] - Sitting 98.10 Tympanic 93.00 % 81.00/ min 16.00/min 54447 216 70167 1 72.00 mm[Hg] - Sitting 115.00 mm[Hg] - Sitting 60558 217 15134 2 93599 217 05399 4 62.00 mm[Hg] - Sitting 112.00 mm[Hg] - Sitting 14737 217 85716 3 57.00 mm[Hg] - Sitting 114.00 mm[Hg] - Sitting 98.30 Tympanic 98.00 % 78.00/ min 20.00/min 45303 217 94811 4 62.00 mm[Hg] - Lying Down 111.00 mm[Hg] - Lying Down 53144 218 81541 0 70.00 mm[Hg] - Sitting 158.00 mm[Hg] - Sitting 97.60 Tympanic 97.00 % 68.00/ min 18.00/min 06928 218 30694 5 65.00 mm[Hg] - Lying Down 113.00 mm[Hg] - Lying Down 19367 219 11709 1 67.00 mm[Hg] - Sitting 112.00 mm[Hg] - Sitting 04274 220 07944 0 82.00 mm[Hg] - Sitting 160.00 mm[Hg] - Sitting 97.90 Forehead Scan 95.00 % 87.00/ min 16.00/min 59417 220 89967 7 69.00 mm[Hg] - Sitting 119.00 mm[Hg] - Sitting 92171 221 21218 1 82.00 mm[Hg] - Sitting 156.00 mm[Hg] - Sitting 98.20 Tympanic 95.00 % 72.00/ min 18.00/min 76064 221 60738 1 78.00 mm[Hg] - Sitting 148.00 mm[Hg] - Sitting 16629 222 60781 0 81.00 mm[Hg] - Sitting 161.00 mm[Hg] - Sitting 97.70 Tympanic 94.00 % 80.00/ min 18.00/min 44431 222 80198 3 87.00 mm[Hg] - Sitting 141.00 mm[Hg] - Sitting 41865 223 34026 9 68.00 mm[Hg] - Sitting 138.00 mm[Hg] - Sitting 98.10 Tympanic 92.00 % 85.00/ min 18.00/min 54524 223 21947 4 67.00 mm[Hg] - Sitting 128.00 mm[Hg] - Sitting 25981 224 82545 6 09624 224 13897 5 73.00 mm[Hg] - Lying Down 151.00 mm[Hg] - Lying Down 98.40 Tympanic 95.00 % 75.00/ min 18.00/min
--- OUTSIDE RECORDS SUMMARY | 2024-04-10 03:17 | External Medical Summary | Continuity Of Care Document ---
Author Name Unknown Address [address] [address] Organization [facility] () Care Team Providers Care Music Agent Name Role Phone DO Alonso Amy Primary Care Provider [phone] Allergies Allergy Reaction Start Date End Date [...] 3 0.1 mL 01/29 Inactiv e 2023 32360 91293 0 1 time Intrad ermal False Tubersol 5 tub. unit/0.1 mL intradermal injection solution [Tuberculin PPD] 0.1mL Intradermal 1 time For PPD 2nd Step Give 2nd Step PPD Day 1 and Read results Day 3 (schedule 7 days after 1st READ) 0.1mL 02/07 Inactiv e 2023 60844 86285 0 1 time Intrad ermal False Oxycodone 5 mg tablet [generic] 5mg By Mouth Every 4 hours as needed for severe pain for pain rate 7-10. For right pubis fracture 5mg 01/27 Inactiv e 2023 13463 45999 1 Every 4 hours as needed By Mouth False OXYCODONE 5 MG TABLET [GENERIC]IM MEDIATE RELEASE 2.5mg By Mouth Every 4 hours as needed tablet po for moderate pain, pain rate 4-6 on pain scale 1-10. For pain 2.5mg 01/27 Inactiv e 2023 Every 4 hours as needed By Mouth False Oxycodone 5 mg tablet [generic] 01/27 Inactiv e 2023 83715 42382 1 Oxycodone 5 mg tablet [generic] 5mg By Mouth Every 4 hours as needed for severe pain for pain rate 7-10. For right pubis fracture 5mg 01/29 Inactiv e 2023 84488 89645 1 Every 4 hours as needed By [...] For Muscle spasms 175mg 2023 Active 2023 52979 24061 1 Every 6 hours as needed By Mouth False Cephalexin 500 mg capsule [generic] 500mg By Mouth Every 8 hours For UTI 500mg 01/30 Inactiv e 2023 63985 44869 1 Every 8 hours By Mouth False Aspirin 81 mg chewable tablet [generic] 81 mg By Mouth Once daily For AAA 81 mg 2023 Active 2023 69937 41805 6 Once daily By Mouth False Colace 100 mg capsule 100mg By Mouth Twice daily For constipation 100mg 2023 Active 2023 01684 22173 1 Twice daily By Mouth False Enoxaparin 300 mg/3 mL subcutaneou s solution [generic] 20mg Subcutaneous Once daily For anticoag. 20mg 02/06 Inactiv e 2023 60499 72489 1 Once daily Subcut aneous False Losartan 50 mg tablet [generic] 50 By Mouth Once daily For HTN 50 2023 Active 2023 02705 04580 9 Once daily By Mouth False Miralax 17 gram/dose oral powder 17 gram By Mouth Once daily For contispation 17 gram 2023 Active 2023 57487 11268 0 Once daily By Mouth False Senna 8.6 mg tablet 2 tabs By Mouth Once daily For constipation 2 tabs 2023 Active 2023 85745 00143 1 Once daily By Mouth False Simvastatin 20 mg tablet [generic] 20 mg By Mouth Once daily For Hyperlipidemi a 20 mg 2023 Active 2023 09538 05131 0 Once daily By Mouth False Spiriva with HandiHaler 18 mcg and inhalation capsules 1 capsule Inhalation Once daily For COPD 1 capsule 2023 Active 2023 51651 46630 1 Once daily Inhala tion False Ventolin HFA 90 mcg/actuati on aerosol inhaler 2 puff Inhalation Every 4 hours as needed For COPD 2 puff 2023 Active 2023 82207 96020 0 Every 4 hours as needed Inhala tion False ProSource No Carb 15 gram-60 kcal/30 mL oral liquid 30ml By Mouth Twice daily For Protien supplement 30ml 01/30 Inactiv e 2023 68341 03758 5 Twice daily By Mouth False Albuterol sulfate 2.5 mg/3 mL (0.083 %) solution for nebulizatio n [generic] 3 ml Inhalation Every 6 hours as needed For wheezing 3 ml 2023 Active 2023 16560 95543 3 Every 6 hours as needed Inhala tion False Acetaminoph en 325 mg tablet [generic] 650 mg By Mouth Every 6 hours For Mild Pain 650 mg 01/29 Inactiv e 2023 26090 70762 0 Every 6 hours By Mouth False Tylenol 325 mg tablet 2 tabs By Mouth Every 4 hours as needed For Pain DO NOT EXCEED 3000 MG APAP/24 Hours 2 tabs 2023 Active 2023 29687 82517 0 Every 4 hours as needed By Mouth False Tylenol 325 mg tablet 2 tabs By Mouth Every 4 hours as needed For Fever >100 DO NOT EXCEED 3000 MG APAP/24 Hours 2 tabs 2023 Active 2023 82152 03475 0 Every 4 hours as needed By Mouth False Dulcolax (bisacodyl) 10 mg rectal suppository One Suppository per rectum PRN if Milk of Magnisia ineffective. Give on day 5 of no BM 1 sup 2023 Active 2023 09171 09347 1 Daily as needed Rectal False Fleet Enema 19 gram-7 gram/118 mL Administer per rectum PRN one time if dulcolax suppository not effective. Give on day 6 of no BM 1 2023 Active 2023 79562 97006 6 Daily as needed Rectal False Milk of Magnesia 400 mg/5 mL oral suspension [Magnesium hydroxide] PRN 30ml By Mouth Daily as needed for constipation one time daily if no BM, on day 4 of no BM (PRN refer to instructions) For Constipation 30 mL 2023 Active 2023 99410 35754 6 Daily as needed By Mouth False Oxycodone 5 mg tablet [generic] 01/29 Inactiv e 2023 76728 87463 1 Oxycodone 5 mg tablet [generic] 5mg By Mouth Every 4 hours as needed for severe pain for pain rate 7-10. For right pubis fracture 5mg 01/31 Inactiv e 2023 83735 67674 1 Every 4 hours as needed By Mouth False Cymbalta 30 mg capsule,del ayed release 30 mg By Mouth Once daily For Depression 30 mg 02/04 Inactiv e 2023 45302 67287 0 Once daily By Mouth False Acetaminoph en 500 mg tablet [generic] 1000 mg By Mouth Twice daily not to exceed 3gm APAP in 24 hours For Pain 1000 mg 2023 Active 2023 34679 66432 8 Twice daily By Mouth False Healthshake 118 ml BID 118 ml By Mouth Twice daily Healthshake 118 ml BID For MNA of 7 - malnourished - please record total ml consumed 118 ml 2023 Active 2023 Twice daily By Mouth False Oxycodone 5 mg tablet [generic] 01/31 Inactiv e 2023 39901 38768 1 Oxycodone 5 mg tablet [generic] 5mg By Mouth Every 4 hours as needed for severe pain for pain rate 7-10. For right pubis fracture 5mg 02/01 Inactiv e 2023 70800 17730 1 Every 4 hours as needed By Mouth False Oxycodone 5 mg tablet [generic] 5mg By Mouth Every 4 hours as needed for severe pain 7-10 For right pubis fx 5mg 2023 Active 2023 34851 93497 1 Every 4 hours as needed By Mouth False Cymbalta 60 mg capsule,del ayed release 60mg Once daily depression 60mg 2023 Active 2023 33582 88895 0 Once daily By Mouth False Enoxaparin 40 mg/0.4 mL subcutaneou s syringe [generic] 20mg Subcutaneous Once daily For anticoag 20mg 2023 Active 2023 06893 59554 0 Once daily Subcut aneous False Problems [...] Temperature SpO2 Blood Sugar Pulse Respirations 210 94438 7 78.00 mm[Hg] - Lying Down 186.00 mm[Hg] - Lying Down 109.80 NI 97.90 Forehead Scan 91.00 % 92.00/ min 18.00/min 210 70231 1 74.00 mm[Hg] - Lying Down 147.00 mm[Hg] - Lying Down 85.00/ min 211 59089 2 72.00 mm[Hg] - Sitting 138.00 mm[Hg] - Sitting 98.40 Tympanic 86.00/ min 18.00/min 211 06271 2 59.00 mm[Hg] - Sitting 117.00 mm[Hg] - Sitting 98.20 Tympanic 99.00 % 81.00/ min 18.00/min 211 33426 5 69.00 mm[Hg] - Sitting 145.00 mm[Hg] - Sitting 211 56855 9 69.00 mm[Hg] - Sitting 145.00 mm[Hg] - Sitting 211 58573 5 69.00 mm[Hg] - Sitting 145.00 mm[Hg] - Sitting 211 86675 6 69.00 mm[Hg] - Sitting 212 30818 7 59.00 mm[Hg] - Sitting 117.00 mm[Hg] - Sitting 98.20 Tympanic 81.00/ min 18.00/min 212 52630 9 97.80 Tympanic 67159 6 55.00 mm[Hg] - Sitting 109.00 mm[Hg] - Sitting 97.30 Tympanic 94.00 % 75.00/ min 18.00/min 04909 212 85885 5 68.00 mm[Hg] - Sitting 128.00 mm[Hg] - Sitting 97.80 Tympanic 80.00/ min 18.00/min 94510 212 65134 4 97.50 Tympanic 37870 212 77029 9 30962 212 59457 6 71.00 mm[Hg] - Sitting 117.00 mm[Hg] - Sitting 95385 213 08013 0 60.00 mm[Hg] - Sitting 116.00 mm[Hg] - Sitting 98.40 Forehead Scan 94.00 % 72.00/ min 16.00/min 94078 213 60727 7 70.00 mm[Hg] - Sitting 118.00 mm[Hg] - Sitting 98.00 Tympanic 82.00/ min 18.00/min 45968 213 75832 3 97.90 Tympanic 79574 213 07418 5 73.00 mm[Hg] - Lying Down 127.00 mm[Hg] - Lying Down 23726 213 47176 3 49328 214 11871 1 62.00 mm[Hg] - Sitting 127.00 mm[Hg] - Sitting 97.80 Tympanic 94.00 % 72.00/ min 16.00/min 82654 214 60469 4 59.00 mm[Hg] - Lying Down 113.00 mm[Hg] - Lying Down 99494 215 40625 0 56.00 mm[Hg] - Sitting 101.00 mm[Hg] - Sitting 97.80 Tympanic 95.00 % 71.00/ min 16.00/min 78687 215 37721 5 62 NI 62325 215 98448 8 57.00 mm[Hg] - Lying Down 113.00 mm[Hg] - Lying Down 39496 216 02137 3 71.00 mm[Hg] - Sitting 161.00 mm[Hg] - Sitting 98.10 Tympanic 93.00 % 81.00/ min 16.00/min 56256 216 96902 1 72.00 mm[Hg] - Sitting 115.00 mm[Hg] - Sitting 89624 217 63377 2 98216 217 36619 4 62.00 mm[Hg] - Sitting 112.00 mm[Hg] - Sitting 25584 217 95169 3 57.00 mm[Hg] - Sitting 114.00 mm[Hg] - Sitting 98.30 Tympanic 98.00 % 78.00/ min 20.00/min 61335 217 47922 4 62.00 mm[Hg] - Lying Down 111.00 mm[Hg] - Lying Down 20422 218 49873 0 70.00 mm[Hg] - Sitting 158.00 mm[Hg] - Sitting 97.60 Tympanic 97.00 % 68.00/ min 18.00/min 10401 218 88924 5 65.00 mm[Hg] - Lying Down 113.00 mm[Hg] - Lying Down 56485 219 55722 1 67.00 mm[Hg] - Sitting 112.00 mm[Hg] - Sitting 39328 220 00989 0 82.00 mm[Hg] - Sitting 160.00 mm[Hg] - Sitting 97.90 Forehead Scan 95.00 % 87.00/ min 16.00/min 57723 220 94090 7 69.00 mm[Hg] - Sitting 119.00 mm[Hg] - Sitting 46314 221 15285 1 82.00 mm[Hg] - Sitting 156.00 mm[Hg] - Sitting 98.20 Tympanic 95.00 % 72.00/ min 18.00/min 90631 221 80027 1 78.00 mm[Hg] - Sitting 148.00 mm[Hg] - Sitting 34429 222 08564 0 81.00 mm[Hg] - Sitting 161.00 mm[Hg] - Sitting 97.70 Tympanic 94.00 % 80.00/ min 18.00/min 04471 222 33386 3 87.00 mm[Hg] - Sitting 141.00 mm[Hg] - Sitting 93452 223 41397 9 68.00 mm[Hg] - Sitting 138.00 mm[Hg] - Sitting 98.10 Tympanic 92.00 % 85.00/ min 18.00/min 72116 223 54839 4 67.00 mm[Hg] - Sitting 128.00 mm[Hg] - Sitting 16494 224 26010 6 04891 224 02805 5 73.00 mm[Hg] - Lying Down 151.00 mm[Hg] - Lying Down 98.40 Tympanic 95.00 % 75.00/ min 18.00/min 74911 224 58262 3 63.00 mm[Hg] - Sitting 124.00 mm[Hg] - Sitting 46419 225 54725 1 97.30 Tympanic 95.00 % 72.00/ min 20.00/min 225 46002 6 67.00 mm[Hg] - Sitting 132.00 mm[Hg] - Sitting 226 24770 2 67.00 mm[Hg] - Sitting 121.00 mm[Hg] - Sitting
--- OUTSIDE RECORDS SUMMARY | 2024-04-10 03:17 | External Medical Summary | Continuity Of Care Document ---
Author Name Unknown Address [address] [address] [facility] () Care Team Providers Care Driller Operator Name Role Phone DO Alonso Amy Primary Care Provider [phone] Allergies Allergy Reaction Start Date End Date [...] 3 0.1 mL 01/29 Inactiv e 2023 30285 85395 0 1 time Intrad ermal False Tubersol 5 tub. unit/0.1 mL intradermal injection solution [Tuberculin PPD] 0.1mL Intradermal 1 time For PPD 2nd Step Give 2nd Step PPD Day 1 and Read results Day 3 (schedule 7 days after 1st READ) 0.1mL 02/07 Inactiv e 2023 63070 08665 0 1 time Intrad ermal False Oxycodone 5 mg tablet [generic] 5mg By Mouth Every 4 hours as needed for severe pain for pain rate 7-10. For right pubis fracture 5mg 01/27 Inactiv e 2023 83806 15331 1 Every 4 hours as needed By Mouth False OXYCODONE 5 MG TABLET [GENERIC]IM MEDIATE RELEASE 2.5mg By Mouth Every 4 hours as needed tablet po for moderate pain, pain rate 4-6 on pain scale 1-10. For pain 2.5mg 01/27 Inactiv e 2023 Every 4 hours as needed By Mouth False Oxycodone 5 mg tablet [generic] 01/27 Inactiv e 2023 14887 17625 1 Oxycodone 5 mg tablet [generic] 5mg By Mouth Every 4 hours as needed for severe pain for pain rate 7-10. For right pubis fracture 5mg 01/29 Inactiv e 2023 18761 99991 1 Every 4 hours as needed By [...] For Muscle spasms 175mg 2023 Active 2023 85981 96593 1 Every 6 hours as needed By Mouth False Cephalexin 500 mg capsule [generic] 500mg By Mouth Every 8 hours For UTI 500mg 01/30 Inactiv e 2023 51359 40520 1 Every 8 hours By Mouth False Aspirin 81 mg chewable tablet [generic] 81 mg By Mouth Once daily For AAA 81 mg 2023 Active 2023 36151 47606 6 Once daily By Mouth False Colace 100 mg capsule 100mg By Mouth Twice daily For constipation 100mg 2023 Active 2023 25546 74300 1 Twice daily By Mouth False Enoxaparin 300 mg/3 mL subcutaneou s solution [generic] 20mg Subcutaneous Once daily For anticoag. 20mg 02/06 Inactiv e 2023 11163 89267 1 Once daily Subcut aneous False Losartan 50 mg tablet [generic] 50 By Mouth Once daily For HTN 50 2023 Active 2023 67825 96411 9 Once daily By Mouth False Miralax 17 gram/dose oral powder 17 gram By Mouth Once daily For contispation 17 gram 2023 Active 2023 29838 46383 0 Once daily By Mouth False Senna 8.6 mg tablet 2 tabs By Mouth Once daily For constipation 2 tabs 2023 Active 2023 50966 11935 1 Once daily By Mouth False Simvastatin 20 mg tablet [generic] 20 mg By Mouth Once daily For Hyperlipidemi a 20 mg 2023 Active 2023 16939 23397 0 Once daily By Mouth False Spiriva with HandiHaler 18 mcg and inhalation capsules 1 capsule Inhalation Once daily For COPD 1 capsule 2023 Active 2023 35260 37060 1 Once daily Inhala tion False Ventolin HFA 90 mcg/actuati on aerosol inhaler 2 puff Inhalation Every 4 hours as needed For COPD 2 puff 2023 Active 2023 77352 68130 0 Every 4 hours as needed Inhala tion False ProSource No Carb 15 gram-60 kcal/30 mL oral liquid 30ml By Mouth Twice daily For Protien supplement 30ml 01/30 Inactiv e 2023 60206 00865 5 Twice daily By Mouth False Albuterol sulfate 2.5 mg/3 mL (0.083 %) solution for nebulizatio n [generic] 3 ml Inhalation Every 6 hours as needed For wheezing 3 ml 2023 Active 2023 68611 22374 3 Every 6 hours as needed Inhala tion False Acetaminoph en 325 mg tablet [generic] 650 mg By Mouth Every 6 hours For Mild Pain 650 mg 01/29 Inactiv e 2023 59400 01669 0 Every 6 hours By Mouth False Tylenol 325 mg tablet 2 tabs By Mouth Every 4 hours as needed For Pain DO NOT EXCEED 3000 MG APAP/24 Hours 2 tabs 2023 Active 2023 89936 81053 0 Every 4 hours as needed By Mouth False Tylenol 325 mg tablet 2 tabs By Mouth Every 4 hours as needed For Fever >100 DO NOT EXCEED 3000 MG APAP/24 Hours 2 tabs 2023 Active 2023 81502 17102 0 Every 4 hours as needed By Mouth False Dulcolax (bisacodyl) 10 mg rectal suppository One Suppository per rectum PRN if Milk of Magnisia ineffective. Give on day 5 of no BM 1 sup 2023 Active 2023 56342 44903 1 Daily as needed Rectal False Fleet Enema 19 gram-7 gram/118 mL Administer per rectum PRN one time if dulcolax suppository not effective. Give on day 6 of no BM 1 2023 Active 2023 14701 68681 6 Daily as needed Rectal False Milk of Magnesia 400 mg/5 mL oral suspension [Magnesium hydroxide] PRN 30ml By Mouth Daily as needed for constipation one time daily if no BM, on day 4 of no BM (PRN refer to instructions) For Constipation 30 mL 2023 Active 2023 92544 54868 6 Daily as needed By Mouth False Oxycodone 5 mg tablet [generic] 01/29 Inactiv e 2023 45389 05827 1 Oxycodone 5 mg tablet [generic] 5mg By Mouth Every 4 hours as needed for severe pain for pain rate 7-10. For right pubis fracture 5mg 01/31 Inactiv e 2023 50581 78882 1 Every 4 hours as needed By Mouth False Cymbalta 30 mg capsule,del ayed release 30 mg By Mouth Once daily For Depression 30 mg 02/04 Inactiv e 2023 94466 42610 0 Once daily By Mouth False Acetaminoph en 500 mg tablet [generic] 1000 mg By Mouth Twice daily not to exceed 3gm APAP in 24 hours For Pain 1000 mg 2023 Active 2023 48481 70820 8 Twice daily By Mouth False Healthshake 118 ml BID 118 ml By Mouth Twice daily Healthshake 118 ml BID For MNA of 7 - malnourished - please record total ml consumed 118 ml 2023 Active 2023 Twice daily By Mouth False Oxycodone 5 mg tablet [generic] 01/31 Inactiv e 2023 01004 50554 1 Oxycodone 5 mg tablet [generic] 5mg By Mouth Every 4 hours as needed for severe pain for pain rate 7-10. For right pubis fracture 5mg 02/01 Inactiv e 2023 05954 36969 1 Every 4 hours as needed By Mouth False Oxycodone 5 mg tablet [generic] 5mg By Mouth Every 4 hours as needed for severe pain 7-10 For right pubis fx 5mg 2023 Active 2023 53123 90139 1 Every 4 hours as needed By Mouth False Cymbalta 60 mg capsule,del ayed release 60mg Once daily depression 60mg 2023 Active 2023 12081 47673 0 Once daily By Mouth False Enoxaparin 40 mg/0.4 mL subcutaneou s syringe [generic] 20mg Subcutaneous Once daily For anticoag 20mg 2023 Active 2023 50052 70944 0 Once daily Subcut aneous False Problems [...] Temperature SpO2 Blood Sugar Pulse Respirations 210 00714 7 78.00 mm[Hg] - Lying Down 186.00 mm[Hg] - Lying Down 109.80 NI 97.90 Forehead Scan 91.00 % 92.00/ min 18.00/min 210 29212 1 74.00 mm[Hg] - Lying Down 147.00 mm[Hg] - Lying Down 85.00/ min 211 34448 2 72.00 mm[Hg] - Sitting 138.00 mm[Hg] - Sitting 98.40 Tympanic 86.00/ min 18.00/min 211 27562 2 59.00 mm[Hg] - Sitting 117.00 mm[Hg] - Sitting 98.20 Tympanic 99.00 % 81.00/ min 18.00/min 211 15154 5 69.00 mm[Hg] - Sitting 145.00 mm[Hg] - Sitting 211 97399 9 69.00 mm[Hg] - Sitting 145.00 mm[Hg] - Sitting 211 22311 5 69.00 mm[Hg] - Sitting 145.00 mm[Hg] - Sitting 211 93814 6 69.00 mm[Hg] - Sitting 212 29557 7 59.00 mm[Hg] - Sitting 117.00 mm[Hg] - Sitting 98.20 Tympanic 81.00/ min 18.00/min 212 58133 9 97.80 Tympanic 71807 6 55.00 mm[Hg] - Sitting 109.00 mm[Hg] - Sitting 97.30 Tympanic 94.00 % 75.00/ min 18.00/min 16485 212 02122 5 68.00 mm[Hg] - Sitting 128.00 mm[Hg] - Sitting 97.80 Tympanic 80.00/ min 18.00/min 51411 212 62471 4 97.50 Tympanic 33435 212 98631 9 18579 212 61034 6 71.00 mm[Hg] - Sitting 117.00 mm[Hg] - Sitting 91151 213 31584 0 60.00 mm[Hg] - Sitting 116.00 mm[Hg] - Sitting 98.40 Forehead Scan 94.00 % 72.00/ min 16.00/min 85849 213 20435 7 70.00 mm[Hg] - Sitting 118.00 mm[Hg] - Sitting 98.00 Tympanic 82.00/ min 18.00/min 43270 213 01024 3 97.90 Tympanic 84387 213 23339 5 73.00 mm[Hg] - Lying Down 127.00 mm[Hg] - Lying Down 32259 213 14952 3 79470 214 42403 1 62.00 mm[Hg] - Sitting 127.00 mm[Hg] - Sitting 97.80 Tympanic 94.00 % 72.00/ min 16.00/min 36733 214 12147 4 59.00 mm[Hg] - Lying Down 113.00 mm[Hg] - Lying Down 14910 215 81193 0 56.00 mm[Hg] - Sitting 101.00 mm[Hg] - Sitting 97.80 Tympanic 95.00 % 71.00/ min 16.00/min 24568 215 65485 5 62 [place] [address] 215 19097 8 57.00 mm[Hg] - Lying Down 113.00 mm[Hg] - Lying Down 90214 216 67423 3 71.00 mm[Hg] - Sitting 161.00 mm[Hg] - Sitting 98.10 Tympanic 93.00 % 81.00/ min 16.00/min 58966 216 38315 1 72.00 mm[Hg] - Sitting 115.00 mm[Hg] - Sitting 08130 217 55479 2 63234 217 80815 4 62.00 mm[Hg] - Sitting 112.00 mm[Hg] - Sitting 72665 217 39274 3 57.00 mm[Hg] - Sitting 114.00 mm[Hg] - Sitting 98.30 Tympanic 98.00 % 78.00/ min 20.00/min 51918 217 38852 4 62.00 mm[Hg] - Lying Down 111.00 mm[Hg] - Lying Down 32925 218 72047 0 70.00 mm[Hg] - Sitting 158.00 mm[Hg] - Sitting 97.60 Tympanic 97.00 % 68.00/ min 18.00/min 97534 218 89941 5 65.00 mm[Hg] - Lying Down 113.00 mm[Hg] - Lying Down 84320 219 83694 1 67.00 mm[Hg] - Sitting 112.00 mm[Hg] - Sitting 62127 220 94107 0 82.00 mm[Hg] - Sitting 160.00 mm[Hg] - Sitting 97.90 Forehead Scan 95.00 % 87.00/ min 16.00/min 80141 220 10479 7 69.00 mm[Hg] - Sitting 119.00 mm[Hg] - Sitting 73494 221 34279 1 82.00 mm[Hg] - Sitting 156.00 mm[Hg] - Sitting 98.20 Tympanic 95.00 % 72.00/ min 18.00/min 31843 221 35762 1 78.00 mm[Hg] - Sitting 148.00 mm[Hg] - Sitting 77185 222 00596 0 81.00 mm[Hg] - Sitting 161.00 mm[Hg] - Sitting 97.70 Tympanic 94.00 % 80.00/ min 18.00/min 35851 222 78730 3 87.00 mm[Hg] - Sitting 141.00 mm[Hg] - Sitting 61471 223 18510 9 68.00 mm[Hg] - Sitting 138.00 mm[Hg] - Sitting 98.10 Tympanic 92.00 % 85.00/ min 18.00/min 31303 223 36895 4 67.00 mm[Hg] - Sitting 128.00 mm[Hg] - Sitting 79910 224 05017 6 60956 224 66263 5 73.00 mm[Hg] - Lying Down 151.00 mm[Hg] - Lying Down 98.40 Tympanic 95.00 % 75.00/ min 18.00/min 50675 224 39957 3 63.00 mm[Hg] - Sitting 124.00 mm[Hg] - Sitting 69537 225 07385 1 97.30 Tympanic 95.00 % 72.00/ min 20.00/min 30769 225 38329 6 67.00 mm[Hg] - Sitting 132.00 mm[Hg] - Sitting
--- OUTSIDE RECORDS SUMMARY | 2024-04-10 03:17 | External Medical Summary | Continuity Of Care Document ---
Author Name Unknown Address [address] [address] Organization [facility] () Care Team Providers Care Precision Honing Machine Operator Name Role Phone DO Alonso Amy Primary Care Provider [phone] Allergies Allergy Reaction Start Date End Date [...] 3 0.1 mL 01/29 Inactiv e 2023 33192 64846 0 1 time Intrad ermal False Tubersol 5 tub. unit/0.1 mL intradermal injection solution [Tuberculin PPD] 0.1mL Intradermal 1 time For PPD 2nd Step Give 2nd Step PPD Day 1 and Read results Day 3 (schedule 7 days after 1st READ) 0.1mL 02/07 Inactiv e 2023 43505 86208 0 1 time Intrad ermal False Oxycodone 5 mg tablet [generic] 5mg By Mouth Every 4 hours as needed for severe pain for pain rate 7-10. For right pubis fracture 5mg 01/27 Inactiv e 2023 59502 72704 1 Every 4 hours as needed By Mouth False OXYCODONE 5 MG TABLET [GENERIC]IM MEDIATE RELEASE 2.5mg By Mouth Every 4 hours as needed tablet po for moderate pain, pain rate 4-6 on pain scale 1-10. For pain 2.5mg 01/27 Inactiv e 2023 Every 4 hours as needed By Mouth False Oxycodone 5 mg tablet [generic] 01/27 Inactiv e 2023 58370 67312 1 Oxycodone 5 mg tablet [generic] 5mg By Mouth Every 4 hours as needed for severe pain for pain rate 7-10. For right pubis fracture 5mg 01/29 Inactiv e 2023 87616 83991 1 Every 4 hours as needed By [...] For Muscle spasms 175mg 2023 Active 2023 84385 25593 1 Every 6 hours as needed By Mouth False Cephalexin 500 mg capsule [generic] 500mg By Mouth Every 8 hours For UTI 500mg 01/30 Inactiv e 2023 17443 00811 1 Every 8 hours By Mouth False Aspirin 81 mg chewable tablet [generic] 81 mg By Mouth Once daily For AAA 81 mg 2023 Active 2023 77351 00833 6 Once daily By Mouth False Colace 100 mg capsule 100mg By Mouth Twice daily For constipation 100mg 2023 Active 2023 80040 52688 1 Twice daily By Mouth False Enoxaparin 300 mg/3 mL subcutaneou s solution [generic] 20mg Subcutaneous Once daily For anticoag. 20mg 02/06 Inactiv e 2023 85802 16418 1 Once daily Subcut aneous False Losartan 50 mg tablet [generic] 50 By Mouth Once daily For HTN 50 2023 Active 2023 21962 31478 9 Once daily By Mouth False Miralax 17 gram/dose oral powder 17 gram By Mouth Once daily For contispation 17 gram 2023 Active 2023 61770 36824 0 Once daily By Mouth False Senna 8.6 mg tablet 2 tabs By Mouth Once daily For constipation 2 tabs 2023 Active 2023 79915 36006 1 Once daily By Mouth False Simvastatin 20 mg tablet [generic] 20 mg By Mouth Once daily For Hyperlipidemi a 20 mg 2023 Active 2023 82810 01583 0 Once daily By Mouth False Spiriva with HandiHaler 18 mcg and inhalation capsules 1 capsule Inhalation Once daily For COPD 1 capsule 2023 Active 2023 03326 01823 1 Once daily Inhala tion False Ventolin HFA 90 mcg/actuati on aerosol inhaler 2 puff Inhalation Every 4 hours as needed For COPD 2 puff 2023 Active 2023 33981 93233 0 Every 4 hours as needed Inhala tion False ProSource No Carb 15 gram-60 kcal/30 mL oral liquid 30ml By Mouth Twice daily For Protien supplement 30ml 01/30 Inactiv e 2023 63001 56577 5 Twice daily By Mouth False Albuterol sulfate 2.5 mg/3 mL (0.083 %) solution for nebulizatio n [generic] 3 ml Inhalation Every 6 hours as needed For wheezing 3 ml 2023 Active 2023 98077 17605 3 Every 6 hours as needed Inhala tion False Acetaminoph en 325 mg tablet [generic] 650 mg By Mouth Every 6 hours For Mild Pain 650 mg 01/29 Inactiv e 2023 83690 70004 0 Every 6 hours By Mouth False Tylenol 325 mg tablet 2 tabs By Mouth Every 4 hours as needed For Pain DO NOT EXCEED 3000 MG APAP/24 Hours 2 tabs 2023 Active 2023 25488 13753 0 Every 4 hours as needed By Mouth False Tylenol 325 mg tablet 2 tabs By Mouth Every 4 hours as needed For Fever >100 DO NOT EXCEED 3000 MG APAP/24 Hours 2 tabs 2023 Active 2023 46723 56308 0 Every 4 hours as needed By Mouth False Dulcolax (bisacodyl) 10 mg rectal suppository One Suppository per rectum PRN if Milk of Magnisia ineffective. Give on day 5 of no BM 1 sup 2023 Active 2023 22271 19076 1 Daily as needed Rectal False Fleet Enema 19 gram-7 gram/118 mL Administer per rectum PRN one time if dulcolax suppository not effective. Give on day 6 of no BM 1 2023 Active 2023 38908 17919 6 Daily as needed Rectal False Milk of Magnesia 400 mg/5 mL oral suspension [Magnesium hydroxide] PRN 30ml By Mouth Daily as needed for constipation one time daily if no BM, on day 4 of no BM (PRN refer to instructions) For Constipation 30 mL 2023 Active 2023 74590 99871 6 Daily as needed By Mouth False Oxycodone 5 mg tablet [generic] 01/29 Inactiv e 2023 95511 37420 1 Oxycodone 5 mg tablet [generic] 5mg By Mouth Every 4 hours as needed for severe pain for pain rate 7-10. For right pubis fracture 5mg 01/31 Inactiv e 2023 71276 90594 1 Every 4 hours as needed By Mouth False Cymbalta 30 mg capsule,del ayed release 30 mg By Mouth Once daily For Depression 30 mg 02/04 Inactiv e 2023 89281 87145 0 Once daily By Mouth False Acetaminoph en 500 mg tablet [generic] 1000 mg By Mouth Twice daily not to exceed 3gm APAP in 24 hours For Pain 1000 mg 2023 Active 2023 53304 02687 8 Twice daily By Mouth False Healthshake 118 ml BID 118 ml By Mouth Twice daily Healthshake 118 ml BID For MNA of 7 - malnourished - please record total ml consumed 118 ml 2023 Active 2023 Twice daily By Mouth False Oxycodone 5 mg tablet [generic] 01/31 Inactiv e 2023 69270 17058 1 Oxycodone 5 mg tablet [generic] 5mg By Mouth Every 4 hours as needed for severe pain for pain rate 7-10. For right pubis fracture 5mg 02/01 Inactiv e 2023 17697 03432 1 Every 4 hours as needed By Mouth False Oxycodone 5 mg tablet [generic] 5mg By Mouth Every 4 hours as needed for severe pain 7-10 For right pubis fx 5mg 2023 Active 2023 86939 39648 1 Every 4 hours as needed By Mouth False Cymbalta 60 mg capsule,del ayed release 60mg Once daily depression 60mg 2023 Active 2023 48242 01298 0 Once daily By Mouth False Enoxaparin 40 mg/0.4 mL subcutaneou s syringe [generic] 20mg Subcutaneous Once daily For anticoag 20mg 2023 Active 2023 83007 33926 0 Once daily Subcut aneous False Problems [...] Temperature SpO2 Blood Sugar Pulse Respirations 210 34688 7 78.00 mm[Hg] - Lying Down 186.00 mm[Hg] - Lying Down 109.80 NI 97.90 Forehead Scan 91.00 % 92.00/ min 18.00/min 210 04749 1 74.00 mm[Hg] - Lying Down 147.00 mm[Hg] - Lying Down 85.00/ min 211 54743 2 72.00 mm[Hg] - Sitting 138.00 mm[Hg] - Sitting 98.40 Tympanic 86.00/ min 18.00/min 211 26928 2 59.00 mm[Hg] - Sitting 117.00 mm[Hg] - Sitting 98.20 Tympanic 99.00 % 81.00/ min 18.00/min 211 50213 5 69.00 mm[Hg] - Sitting 145.00 mm[Hg] - Sitting 211 32057 9 69.00 mm[Hg] - Sitting 145.00 mm[Hg] - Sitting 211 70537 5 69.00 mm[Hg] - Sitting 145.00 mm[Hg] - Sitting 211 69319 6 69.00 mm[Hg] - Sitting 212 50531 7 59.00 mm[Hg] - Sitting 117.00 mm[Hg] - Sitting 98.20 Tympanic 81.00/ min 18.00/min 212 40438 9 97.80 Tympanic 69919 6 55.00 mm[Hg] - Sitting 109.00 mm[Hg] - Sitting 97.30 Tympanic 94.00 % 75.00/ min 18.00/min 93052 212 43362 5 68.00 mm[Hg] - Sitting 128.00 mm[Hg] - Sitting 97.80 Tympanic 80.00/ min 18.00/min 86410 212 55947 4 97.50 Tympanic 67295 212 56445 9 36476 212 92192 6 71.00 mm[Hg] - Sitting 117.00 mm[Hg] - Sitting 40932 213 96505 0 60.00 mm[Hg] - Sitting 116.00 mm[Hg] - Sitting 98.40 Forehead Scan 94.00 % 72.00/ min 16.00/min 47520 213 40638 7 70.00 mm[Hg] - Sitting 118.00 mm[Hg] - Sitting 98.00 Tympanic 82.00/ min 18.00/min 70265 213 52706 3 97.90 Tympanic 35125 213 24682 5 73.00 mm[Hg] - Lying Down 127.00 mm[Hg] - Lying Down 32442 213 99918 3 81496 214 53222 1 62.00 mm[Hg] - Sitting 127.00 mm[Hg] - Sitting 97.80 Tympanic 94.00 % 72.00/ min 16.00/min 20235 214 83842 4 59.00 mm[Hg] - Lying Down 113.00 mm[Hg] - Lying Down 12960 215 23315 0 56.00 mm[Hg] - Sitting 101.00 mm[Hg] - Sitting 97.80 Tympanic 95.00 % 71.00/ min 16.00/min 35181 215 01650 5 62 NI 66733 215 17108 8 57.00 mm[Hg] - Lying Down 113.00 mm[Hg] - Lying Down 34487 216 25448 3 71.00 mm[Hg] - Sitting 161.00 mm[Hg] - Sitting 98.10 Tympanic 93.00 % 81.00/ min 16.00/min 75709 216 46578 1 72.00 mm[Hg] - Sitting 115.00 mm[Hg] - Sitting 32656 217 96787 2 27354 217 39953 4 62.00 mm[Hg] - Sitting 112.00 mm[Hg] - Sitting 47693 217 82969 3 57.00 mm[Hg] - Sitting 114.00 mm[Hg] - Sitting 98.30 Tympanic 98.00 % 78.00/ min 20.00/min 87651 217 90008 4 62.00 mm[Hg] - Lying Down 111.00 mm[Hg] - Lying Down 97039 218 75471 0 70.00 mm[Hg] - Sitting 158.00 mm[Hg] - Sitting 97.60 Tympanic 97.00 % 68.00/ min 18.00/min 89873 218 31560 5 65.00 mm[Hg] - Lying Down 113.00 mm[Hg] - Lying Down 34103 219 00199 1 67.00 mm[Hg] - Sitting 112.00 mm[Hg] - Sitting 01843 220 23068 0 82.00 mm[Hg] - Sitting 160.00 mm[Hg] - Sitting 97.90 Forehead Scan 95.00 % 87.00/ min 16.00/min 50470 220 86630 7 69.00 mm[Hg] - Sitting 119.00 mm[Hg] - Sitting 40471 221 26932 1 82.00 mm[Hg] - Sitting 156.00 mm[Hg] - Sitting 98.20 Tympanic 95.00 % 72.00/ min 18.00/min 55147 221 67688 1 78.00 mm[Hg] - Sitting 148.00 mm[Hg] - Sitting 39088 222 25544 0 81.00 mm[Hg] - Sitting 161.00 mm[Hg] - Sitting 97.70 Tympanic 94.00 % 80.00/ min 18.00/min 41505 222 79668 3 87.00 mm[Hg] - Sitting 141.00 mm[Hg] - Sitting 65723 223 22118 9 68.00 mm[Hg] - Sitting 138.00 mm[Hg] - Sitting 98.10 Tympanic 92.00 % 85.00/ min 18.00/min 07105 223 17636 4 67.00 mm[Hg] - Sitting 128.00 mm[Hg] - Sitting 06577 224 53793 6 63288 224 61054 5 73.00 mm[Hg] - Lying Down 151.00 mm[Hg] - Lying Down 98.40 Tympanic 95.00 % 75.00/ min 18.00/min 57225 224 65121 3 63.00 mm[Hg] - Sitting 124.00 mm[Hg] - Sitting 56792 225 57875 1 97.30 Tympanic 95.00 % 72.00/ min 20.00/min 225 47097 6 67.00 mm[Hg] - Sitting 132.00 mm[Hg] - Sitting 226 84767 2 67.00 mm[Hg] - Sitting 121.00 mm[Hg] - Sitting 227 64797 6 69.00 mm[Hg] - Sitting 131.00 mm[Hg] - Sitting
--- OUTSIDE RECORDS SUMMARY | 2024-04-10 03:17 | External Medical Summary | Continuity Of Care Document ---
Author Name Unknown Address [address] [address] Organization [facility] () Care Team Providers Care Tube Room Supervisor Name Role Phone DO Alonso Amy Primary Care Provider [phone] Allergies Allergy Reaction Start Date End Date [...] 3 0.1 mL 01/29 Inactiv e 2023 38044 07447 0 1 time Intrad ermal False Tubersol 5 tub. unit/0.1 mL intradermal injection solution [Tuberculin PPD] 0.1mL Intradermal 1 time For PPD 2nd Step Give 2nd Step PPD Day 1 and Read results Day 3 (schedule 7 days after 1st READ) 0.1mL 02/07 Inactiv e 2023 22723 34447 0 1 time Intrad ermal False Oxycodone 5 mg tablet [generic] 5mg By Mouth Every 4 hours as needed for severe pain for pain rate 7-10. For right pubis fracture 5mg 01/27 Inactiv e 2023 47923 40252 1 Every 4 hours as needed By Mouth False OXYCODONE 5 MG TABLET [GENERIC]IM MEDIATE RELEASE 2.5mg By Mouth Every 4 hours as needed tablet po for moderate pain, pain rate 4-6 on pain scale 1-10. For pain 2.5mg 01/27 Inactiv e 2023 Every 4 hours as needed By Mouth False Oxycodone 5 mg tablet [generic] 01/27 Inactiv e 2023 61981 78072 1 Oxycodone 5 mg tablet [generic] 5mg By Mouth Every 4 hours as needed for severe pain for pain rate 7-10. For right pubis fracture 5mg 01/29 Inactiv e 2023 27533 51542 1 Every 4 hours as needed [...] For Muscle spasms 175mg 2023 Active 2023 85909 49254 1 Every 6 hours as needed By Mouth False Cephalexin 500 mg capsule [generic] 500mg By Mouth Every 8 hours For UTI 500mg 01/30 Inactiv e 2023 73427 79870 1 Every 8 hours By Mouth False Aspirin 81 mg chewable tablet [generic] 81 mg By Mouth Once daily For AAA 81 mg 2023 Active 2023 14181 11796 6 Once daily By Mouth False Colace 100 mg capsule 100mg By Mouth Twice daily For constipation 100mg 2023 Active 2023 53033 35662 1 Twice daily By Mouth False Enoxaparin 300 mg/3 mL subcutaneou s solution [generic] 20mg Subcutaneous Once daily For anticoag. 20mg 02/06 Inactiv e 2023 60087 87303 1 Once daily Subcut aneous False Losartan 50 mg tablet [generic] 50 By Mouth Once daily For HTN 50 2023 Active 2023 23546 08594 9 Once daily By Mouth False Miralax 17 gram/dose oral powder 17 gram By Mouth Once daily For contispation 17 gram 2023 Active 2023 28167 60700 0 Once daily By Mouth False Senna 8.6 mg tablet 2 tabs By Mouth Once daily For constipation 2 tabs 2023 Active 2023 14308 96711 1 Once daily By Mouth False Simvastatin 20 mg tablet [generic] 20 mg By Mouth Once daily For Hyperlipidemi a 20 mg 2023 Active 2023 10537 41512 0 Once daily By Mouth False Spiriva with HandiHaler 18 mcg and inhalation capsules 1 capsule Inhalation Once daily For COPD 1 capsule 2023 Active 2023 63644 07285 1 Once daily Inhala tion False Ventolin HFA 90 mcg/actuati on aerosol inhaler 2 puff Inhalation Every 4 hours as needed For COPD 2 puff 2023 Active 2023 48747 34333 0 Every 4 hours as needed Inhala tion False ProSource No Carb 15 gram-60 kcal/30 mL oral liquid 30ml By Mouth Twice daily For Protien supplement 30ml 01/30 Inactiv e 2023 90934 14582 5 Twice daily By Mouth False Albuterol sulfate 2.5 mg/3 mL (0.083 %) solution for nebulizatio n [generic] 3 ml Inhalation Every 6 hours as needed For wheezing 3 ml 2023 Active 2023 16102 72290 3 Every 6 hours as needed Inhala tion False Acetaminoph en 325 mg tablet [generic] 650 mg By Mouth Every 6 hours For Mild Pain 650 mg 01/29 Inactiv e 2023 11537 90744 0 Every 6 hours By Mouth False Tylenol 325 mg tablet 2 tabs By Mouth Every 4 hours as needed For Pain DO NOT EXCEED 3000 MG APAP/24 Hours 2 tabs 2023 Active 2023 29367 93161 0 Every 4 hours as needed By Mouth False Tylenol 325 mg tablet 2 tabs By Mouth Every 4 hours as needed For Fever >100 DO NOT EXCEED 3000 MG APAP/24 Hours 2 tabs 2023 Active 2023 26994 02835 0 Every 4 hours as needed By Mouth False Dulcolax (bisacodyl) 10 mg rectal suppository One Suppository per rectum PRN if Milk of Magnisia ineffective. Give on day 5 of no BM 1 sup 2023 Active 2023 02820 43697 1 Daily as needed Rectal False Fleet Enema 19 gram-7 gram/118 mL Administer per rectum PRN one time if dulcolax suppository not effective. Give on day 6 of no BM 1 2023 Active 2023 05612 06822 6 Daily as needed Rectal False Milk of Magnesia 400 mg/5 mL oral suspension [Magnesium hydroxide] PRN 30ml By Mouth Daily as needed for constipation one time daily if no BM, on day 4 of no BM (PRN refer to instructions) For Constipation 30 mL 2023 Active 2023 99451 52580 6 Daily as needed By Mouth False Oxycodone 5 mg tablet [generic] 01/29 Inactiv e 2023 75753 28114 1 Oxycodone 5 mg tablet [generic] 5mg By Mouth Every 4 hours as needed for severe pain for pain rate 7-10. For right pubis fracture 5mg 01/31 Inactiv e 2023 88831 42835 1 Every 4 hours as needed By Mouth False Cymbalta 30 mg capsule,del ayed release 30 mg By Mouth Once daily For Depression 30 mg 02/04 Inactiv e 2023 89735 83206 0 Once daily By Mouth False Acetaminoph en 500 mg tablet [generic] 1000 mg By Mouth Twice daily not to exceed 3gm APAP in 24 hours For Pain 1000 mg 2023 Active 2023 02357 95451 8 Twice daily By Mouth False Healthshake 118 ml BID 118 ml By Mouth Twice daily Healthshake 118 ml BID For MNA of 7 - malnourished - please record total ml consumed 118 ml 2023 Active 2023 Twice daily By Mouth False Oxycodone 5 mg tablet [generic] 01/31 Inactiv e 2023 71644 09143 1 Oxycodone 5 mg tablet [generic] 5mg By Mouth Every 4 hours as needed for severe pain for pain rate 7-10. For right pubis fracture 5mg 02/01 Inactiv e 2023 45492 32482 1 Every 4 hours as needed By Mouth False Oxycodone 5 mg tablet [generic] 5mg By Mouth Every 4 hours as needed for severe pain 7-10 For right pubis fx 5mg 2023 Active 2023 04682 60337 1 Every 4 hours as needed By Mouth False Cymbalta 60 mg capsule,del ayed release 60mg Once daily depression 60mg 2023 Active 2023 80498 65031 0 Once daily By Mouth False Enoxaparin 40 mg/0.4 mL subcutaneou s syringe [generic] 20mg Subcutaneous Once daily For anticoag 20mg 2023 Active 2023 41272 77219 0 Once daily Subcut aneous False Problems [...] Temperature SpO2 Blood Sugar Pulse Respirations 210 51710 7 78.00 mm[Hg] - Lying Down 186.00 mm[Hg] - Lying Down 109.80 NI 97.90 Forehead Scan 91.00 % 92.00/ min 18.00/min 210 21537 1 74.00 mm[Hg] - Lying Down 147.00 mm[Hg] - Lying Down 85.00/ min 211 03323 2 72.00 mm[Hg] - Sitting 138.00 mm[Hg] - Sitting 98.40 Tympanic 86.00/ min 18.00/min 211 70786 2 59.00 mm[Hg] - Sitting 117.00 mm[Hg] - Sitting 98.20 Tympanic 99.00 % 81.00/ min 18.00/min 211 88718 5 69.00 mm[Hg] - Sitting 145.00 mm[Hg] - Sitting 211 90514 9 69.00 mm[Hg] - Sitting 145.00 mm[Hg] - Sitting 211 77126 5 69.00 mm[Hg] - Sitting 145.00 mm[Hg] - Sitting 211 21160 6 69.00 mm[Hg] - Sitting 212 22891 7 59.00 mm[Hg] - Sitting 117.00 mm[Hg] - Sitting 98.20 Tympanic 81.00/ min 18.00/min 212 70367 9 97.80 Tympanic 38118 6 55.00 mm[Hg] - Sitting 109.00 mm[Hg] - Sitting 97.30 Tympanic 94.00 % 75.00/ min 18.00/min 00948 212 36711 5 68.00 mm[Hg] - Sitting 128.00 mm[Hg] - Sitting 97.80 Tympanic 80.00/ min 18.00/min 60643 212 36510 4 97.50 Tympanic 89156 212 38339 9 41063 212 82012 6 71.00 mm[Hg] - Sitting 117.00 mm[Hg] - Sitting 57060 213 67435 0 60.00 mm[Hg] - Sitting 116.00 mm[Hg] - Sitting 98.40 Forehead Scan 94.00 % 72.00/ min 16.00/min 37263 213 95167 7 70.00 mm[Hg] - Sitting 118.00 mm[Hg] - Sitting 98.00 Tympanic 82.00/ min 18.00/min 55815 213 47360 3 97.90 Tympanic 94281 213 02320 5 73.00 mm[Hg] - Lying Down 127.00 mm[Hg] - Lying Down 24540 213 10341 3 70077 214 00751 1 62.00 mm[Hg] - Sitting 127.00 mm[Hg] - Sitting 97.80 Tympanic 94.00 % 72.00/ min 16.00/min 04886 214 85075 4 59.00 mm[Hg] - Lying Down 113.00 mm[Hg] - Lying Down 16013 215 24072 0 56.00 mm[Hg] - Sitting 101.00 mm[Hg] - Sitting 97.80 Tympanic 95.00 % 71.00/ min 16.00/min 27372 215 72313 5 62 NI 90675 215 12418 8 57.00 mm[Hg] - Lying Down 113.00 mm[Hg] - Lying Down 99074 216 47148 3 71.00 mm[Hg] - Sitting 161.00 mm[Hg] - Sitting 98.10 Tympanic 93.00 % 81.00/ min 16.00/min 20505 216 53880 1 72.00 mm[Hg] - Sitting 115.00 mm[Hg] - Sitting 91408 217 33678 2 38955 217 26035 4 62.00 mm[Hg] - Sitting 112.00 mm[Hg] - Sitting 68436 217 51327 3 57.00 mm[Hg] - Sitting 114.00 mm[Hg] - Sitting 98.30 Tympanic 98.00 % 78.00/ min 20.00/min 02816 217 48142 4 62.00 mm[Hg] - Lying Down 111.00 mm[Hg] - Lying Down 40605 218 94503 0 70.00 mm[Hg] - Sitting 158.00 mm[Hg] - Sitting 97.60 Tympanic 97.00 % 68.00/ min 18.00/min 64549 218 89395 5 65.00 mm[Hg] - Lying Down 113.00 mm[Hg] - Lying Down 48560 219 02268 1 67.00 mm[Hg] - Sitting 112.00 mm[Hg] - Sitting 73330 220 94331 0 82.00 mm[Hg] - Sitting 160.00 mm[Hg] - Sitting 97.90 Forehead Scan 95.00 % 87.00/ min 16.00/min 72877 220 99881 7 69.00 mm[Hg] - Sitting 119.00 mm[Hg] - Sitting 92785 221 37344 1 82.00 mm[Hg] - Sitting 156.00 mm[Hg] - Sitting 98.20 Tympanic 95.00 % 72.00/ min 18.00/min 32320 221 70638 1 78.00 mm[Hg] - Sitting 148.00 mm[Hg] - Sitting 13009 222 60748 0 81.00 mm[Hg] - Sitting 161.00 mm[Hg] - Sitting 97.70 Tympanic 94.00 % 80.00/ min 18.00/min 20821 222 81386 3 87.00 mm[Hg] - Sitting 141.00 mm[Hg] - Sitting 98927 223 53594 9 68.00 mm[Hg] - Sitting 138.00 mm[Hg] - Sitting 98.10 Tympanic 92.00 % 85.00/ min 18.00/min 21117 223 24446 4 67.00 mm[Hg] - Sitting 128.00 mm[Hg] - Sitting 26090 224 47401 6 22767 224 79944 5 73.00 mm[Hg] - Lying Down 151.00 mm[Hg] - Lying Down 98.40 Tympanic 95.00 % 75.00/ min 18.00/min 00768 224 52073 3 63.00 mm[Hg] - Sitting 124.00 mm[Hg] - Sitting 30891 225 49101 1 97.30 Tympanic 95.00 % 72.00/ min 20.00/min 03017 225 72114 6 67.00 mm[Hg] - Sitting 132.00 mm[Hg] - Sitting
--- OUTSIDE RECORDS SUMMARY | 2024-04-10 03:17 | External Medical Summary | Continuity Of Care Document ---
Author Name Unknown Address [address] [address] Organization [facility] () Care Team Providers Care Packaging Inspector Name Role Phone DO Alonso Amy Primary Care Provider [phone] Allergies Allergy Reaction Start Date End Date [...] 3 0.1 mL 01/29 Inactiv e 2023 91548 24794 0 1 time Intrad ermal False Tubersol 5 tub. unit/0.1 mL intradermal injection solution [Tuberculin PPD] 0.1mL Intradermal 1 time For PPD 2nd Step Give 2nd Step PPD Day 1 and Read results Day 3 (schedule 7 days after 1st READ) 0.1mL 02/07 Inactiv e 2023 50019 82597 0 1 time Intrad ermal False Oxycodone 5 mg tablet [generic] 5mg By Mouth Every 4 hours as needed for severe pain for pain rate 7-10. For right pubis fracture 5mg 01/27 Inactiv e 2023 03263 81266 1 Every 4 hours as needed By Mouth False OXYCODONE 5 MG TABLET [GENERIC]IM MEDIATE RELEASE 2.5mg By Mouth Every 4 hours as needed tablet po for moderate pain, pain rate 4-6 on pain scale 1-10. For pain 2.5mg 01/27 Inactiv e 2023 Every 4 hours as needed By Mouth False Oxycodone 5 mg tablet [generic] 01/27 Inactiv e 2023 77079 57256 1 Oxycodone 5 mg tablet [generic] 5mg By Mouth Every 4 hours as needed for severe pain for pain rate 7-10. For right pubis fracture 5mg 01/29 Inactiv e 2023 22481 29778 1 Every 4 hours as needed By [...] For Muscle spasms 175mg 2023 Active 2023 92884 96690 1 Every 6 hours as needed By Mouth False Cephalexin 500 mg capsule [generic] 500mg By Mouth Every 8 hours For UTI 500mg 01/30 Inactiv e 2023 95492 50367 1 Every 8 hours By Mouth False Aspirin 81 mg chewable tablet [generic] 81 mg By Mouth Once daily For AAA 81 mg 2023 Active 2023 97853 62018 6 Once daily By Mouth False Colace 100 mg capsule 100mg By Mouth Twice daily For constipation 100mg 2023 Active 2023 84985 39984 1 Twice daily By Mouth False Enoxaparin 300 mg/3 mL subcutaneou s solution [generic] 20mg Subcutaneous Once daily For anticoag. 20mg 02/06 Inactiv e 2023 99293 06662 1 Once daily Subcut aneous False Losartan 50 mg tablet [generic] 50 By Mouth Once daily For HTN 50 2023 Active 2023 96829 85084 9 Once daily By Mouth False Miralax 17 gram/dose oral powder 17 gram By Mouth Once daily For contispation 17 gram 2023 Active 2023 18711 99899 0 Once daily By Mouth False Senna 8.6 mg tablet 2 tabs By Mouth Once daily For constipation 2 tabs 2023 Active 2023 43309 89240 1 Once daily By Mouth False Simvastatin 20 mg tablet [generic] 20 mg By Mouth Once daily For Hyperlipidemi a 20 mg 2023 Active 2023 22196 84938 0 Once daily By Mouth False Spiriva with HandiHaler 18 mcg and inhalation capsules 1 capsule Inhalation Once daily For COPD 1 capsule 2023 Active 2023 99866 34803 1 Once daily Inhala tion False Ventolin HFA 90 mcg/actuati on aerosol inhaler 2 puff Inhalation Every 4 hours as needed For COPD 2 puff 2023 Active 2023 97928 16286 0 Every 4 hours as needed Inhala tion False ProSource No Carb 15 gram-60 kcal/30 mL oral liquid 30ml By Mouth Twice daily For Protien supplement 30ml 01/30 Inactiv e 2023 40662 72987 5 Twice daily By Mouth False Albuterol sulfate 2.5 mg/3 mL (0.083 %) solution for nebulizatio n [generic] 3 ml Inhalation Every 6 hours as needed For wheezing 3 ml 2023 Active 2023 53002 11134 3 Every 6 hours as needed Inhala tion False Acetaminoph en 325 mg tablet [generic] 650 mg By Mouth Every 6 hours For Mild Pain 650 mg 01/29 Inactiv e 2023 67726 34574 0 Every 6 hours By Mouth False Tylenol 325 mg tablet 2 tabs By Mouth Every 4 hours as needed For Pain DO NOT EXCEED 3000 MG APAP/24 Hours 2 tabs 2023 Active 2023 12445 25631 0 Every 4 hours as needed By Mouth False Tylenol 325 mg tablet 2 tabs By Mouth Every 4 hours as needed For Fever >100 DO NOT EXCEED 3000 MG APAP/24 Hours 2 tabs 2023 Active 2023 62664 20812 0 Every 4 hours as needed By Mouth False Dulcolax (bisacodyl) 10 mg rectal suppository One Suppository per rectum PRN if Milk of Magnisia ineffective. Give on day 5 of no BM 1 sup 2023 Active 2023 54662 82556 1 Daily as needed Rectal False Fleet Enema 19 gram-7 gram/118 mL Administer per rectum PRN one time if dulcolax suppository not effective. Give on day 6 of no BM 1 2023 Active 2023 52304 46102 6 Daily as needed Rectal False Milk of Magnesia 400 mg/5 mL oral suspension [Magnesium hydroxide] PRN 30ml By Mouth Daily as needed for constipation one time daily if no BM, on day 4 of no BM (PRN refer to instructions) For Constipation 30 mL 2023 Active 2023 63620 40525 6 Daily as needed By Mouth False Oxycodone 5 mg tablet [generic] 01/29 Inactiv e 2023 05911 61196 1 Oxycodone 5 mg tablet [generic] 5mg By Mouth Every 4 hours as needed for severe pain for pain rate 7-10. For right pubis fracture 5mg 01/31 Inactiv e 2023 93367 21885 1 Every 4 hours as needed By Mouth False Cymbalta 30 mg capsule,del ayed release 30 mg By Mouth Once daily For Depression 30 mg 02/04 Inactiv e 2023 38548 81978 0 Once daily By Mouth False Acetaminoph en 500 mg tablet [generic] 1000 mg By Mouth Twice daily not to exceed 3gm APAP in 24 hours For Pain 1000 mg 2023 Active 2023 53958 62342 8 Twice daily By Mouth False Healthshake 118 ml BID 118 ml By Mouth Twice daily Healthshake 118 ml BID For MNA of 7 - malnourished - please record total ml consumed 118 ml 2023 Active 2023 Twice daily By Mouth False Oxycodone 5 mg tablet [generic] 01/31 Inactiv e 2023 34219 67130 1 Oxycodone 5 mg tablet [generic] 5mg By Mouth Every 4 hours as needed for severe pain for pain rate 7-10. For right pubis fracture 5mg 02/01 Inactiv e 2023 58884 50319 1 Every 4 hours as needed By Mouth False Oxycodone 5 mg tablet [generic] 5mg By Mouth Every 4 hours as needed for severe pain 7-10 For right pubis fx 5mg 2023 Active 2023 39184 21861 1 Every 4 hours as needed By Mouth False Cymbalta 60 mg capsule,del ayed release 60mg Once daily depression 60mg 2023 Active 2023 86693 30476 0 Once daily By Mouth False Enoxaparin 40 mg/0.4 mL subcutaneou s syringe [generic] 20mg Subcutaneous Once daily For anticoag 20mg 2023 Active 2023 22652 95075 0 Once daily Subcut aneous False Problems [...] Temperature SpO2 Blood Sugar Pulse Respirations 210 23186 7 78.00 mm[Hg] - Lying Down 186.00 mm[Hg] - Lying Down 109.80 NI 97.90 Forehead Scan 91.00 % 92.00/ min 18.00/min 210 50176 1 74.00 mm[Hg] - Lying Down 147.00 mm[Hg] - Lying Down 85.00/ min 211 69464 2 72.00 mm[Hg] - Sitting 138.00 mm[Hg] - Sitting 98.40 Tympanic 86.00/ min 18.00/min 211 48403 2 59.00 mm[Hg] - Sitting 117.00 mm[Hg] - Sitting 98.20 Tympanic 99.00 % 81.00/ min 18.00/min 211 76604 5 69.00 mm[Hg] - Sitting 145.00 mm[Hg] - Sitting 211 38684 9 69.00 mm[Hg] - Sitting 145.00 mm[Hg] - Sitting 211 25067 5 69.00 mm[Hg] - Sitting 145.00 mm[Hg] - Sitting 211 38636 6 69.00 mm[Hg] - Sitting 212 76170 7 59.00 mm[Hg] - Sitting 117.00 mm[Hg] - Sitting 98.20 Tympanic 81.00/ min 18.00/min 212 32301 9 97.80 Tympanic 96396 6 55.00 mm[Hg] - Sitting 109.00 mm[Hg] - Sitting 97.30 Tympanic 94.00 % 75.00/ min 18.00/min 34789 212 61480 5 68.00 mm[Hg] - Sitting 128.00 mm[Hg] - Sitting 97.80 Tympanic 80.00/ min 18.00/min 60940 212 71240 4 97.50 Tympanic 33969 212 30180 9 84780 212 18734 6 71.00 mm[Hg] - Sitting 117.00 mm[Hg] - Sitting 54916 213 58816 0 60.00 mm[Hg] - Sitting 116.00 mm[Hg] - Sitting 98.40 Forehead Scan 94.00 % 72.00/ min 16.00/min 84495 213 81332 7 70.00 mm[Hg] - Sitting 118.00 mm[Hg] - Sitting 98.00 Tympanic 82.00/ min 18.00/min 94360 213 01615 3 97.90 Tympanic 84632 213 80925 5 73.00 mm[Hg] - Lying Down 127.00 mm[Hg] - Lying Down 12120 213 91599 3 59661 214 13388 1 62.00 mm[Hg] - Sitting 127.00 mm[Hg] - Sitting 97.80 Tympanic 94.00 % 72.00/ min 16.00/min 55084 214 59641 4 59.00 mm[Hg] - Lying Down 113.00 mm[Hg] - Lying Down 55291 215 10504 0 56.00 mm[Hg] - Sitting 101.00 mm[Hg] - Sitting 97.80 Tympanic 95.00 % 71.00/ min 16.00/min 35018 215 21133 5 62 NI 10881 215 58484 8 57.00 mm[Hg] - Lying Down 113.00 mm[Hg] - Lying Down 82384 216 44152 3 71.00 mm[Hg] - Sitting 161.00 mm[Hg] - Sitting 98.10 Tympanic 93.00 % 81.00/ min 16.00/min 58763 216 87998 1 72.00 mm[Hg] - Sitting 115.00 mm[Hg] - Sitting 55774 217 48557 2 68636 217 63587 4 62.00 mm[Hg] - Sitting 112.00 mm[Hg] - Sitting 80216 217 32541 3 57.00 mm[Hg] - Sitting 114.00 mm[Hg] - Sitting 98.30 Tympanic 98.00 % 78.00/ min 20.00/min 44691 217 02449 4 62.00 mm[Hg] - Lying Down 111.00 mm[Hg] - Lying Down 69374 218 87748 0 70.00 mm[Hg] - Sitting 158.00 mm[Hg] - Sitting 97.60 Tympanic 97.00 % 68.00/ min 18.00/min 15143 218 63949 5 65.00 mm[Hg] - Lying Down 113.00 mm[Hg] - Lying Down 34628 219 75884 1 67.00 mm[Hg] - Sitting 112.00 mm[Hg] - Sitting 03380 220 40832 0 82.00 mm[Hg] - Sitting 160.00 mm[Hg] - Sitting 97.90 Forehead Scan 95.00 % 87.00/ min 16.00/min 64216 220 77200 7 69.00 mm[Hg] - Sitting 119.00 mm[Hg] - Sitting 10339 221 75631 1 82.00 mm[Hg] - Sitting 156.00 mm[Hg] - Sitting 98.20 Tympanic 95.00 % 72.00/ min 18.00/min 07923 221 17499 1 78.00 mm[Hg] - Sitting 148.00 mm[Hg] - Sitting 93500 222 91264 0 81.00 mm[Hg] - Sitting 161.00 mm[Hg] - Sitting 97.70 Tympanic 94.00 % 80.00/ min 18.00/min 26548 222 56757 3 87.00 mm[Hg] - Sitting 141.00 mm[Hg] - Sitting 16440 223 72827 9 68.00 mm[Hg] - Sitting 138.00 mm[Hg] - Sitting 98.10 Tympanic 92.00 % 85.00/ min 18.00/min 35329 223 35451 4 67.00 mm[Hg] - Sitting 128.00 mm[Hg] - Sitting 31868 224 73568 6
--- OUTSIDE RECORDS SUMMARY | 2024-04-10 03:17 | External Medical Summary | Continuity Of Care Document ---
Author Name Unknown Address [address] [address] Organization [facility] () Care Team Providers Care Saw Feeder Name Role Phone DO Alonso Amy Primary Care Provider [phone] Allergies Allergy Reaction Start Date End Date [...] 3 0.1 mL 01/29 Inactiv e 2023 04828 63526 0 1 time Intrad ermal False Tubersol 5 tub. unit/0.1 mL intradermal injection solution [Tuberculin PPD] 0.1mL Intradermal 1 time For PPD 2nd Step Give 2nd Step PPD Day 1 and Read results Day 3 (schedule 7 days after 1st READ) 0.1mL 02/07 Inactiv e 2023 66740 17932 0 1 time Intrad ermal False Oxycodone 5 mg tablet [generic] 5mg By Mouth Every 4 hours as needed for severe pain for pain rate 7-10. For right pubis fracture 5mg 01/27 Inactiv e 2023 93258 85744 1 Every 4 hours as needed By Mouth False OXYCODONE 5 MG TABLET [GENERIC]IM MEDIATE RELEASE 2.5mg By Mouth Every 4 hours as needed tablet po for moderate pain, pain rate 4-6 on pain scale 1-10. For pain 2.5mg 01/27 Inactiv e 2023 Every 4 hours as needed By Mouth False Oxycodone 5 mg tablet [generic] 01/27 Inactiv e 2023 72475 38251 1 Oxycodone 5 mg tablet [generic] 5mg By Mouth Every 4 hours as needed for severe pain for pain rate 7-10. For right pubis fracture 5mg 01/29 Inactiv e 2023 66146 13095 1 Every 4 hours as needed By [...] For Muscle spasms 175mg 2023 Active 2023 40841 09127 1 Every 6 hours as needed By Mouth False Cephalexin 500 mg capsule [generic] 500mg By Mouth Every 8 hours For UTI 500mg 01/30 Inactiv e 2023 73579 78132 1 Every 8 hours By Mouth False Aspirin 81 mg chewable tablet [generic] 81 mg By Mouth Once daily For AAA 81 mg 2023 Active 2023 81273 01465 6 Once daily By Mouth False Colace 100 mg capsule 100mg By Mouth Twice daily For constipation 100mg 2023 Active 2023 07332 00210 1 Twice daily By Mouth False Enoxaparin 300 mg/3 mL subcutaneou s solution [generic] 20mg Subcutaneous Once daily For anticoag. 20mg 02/06 Inactiv e 2023 92121 91498 1 Once daily Subcut aneous False Losartan 50 mg tablet [generic] 50 By Mouth Once daily For HTN 50 2023 Active 2023 46811 16668 9 Once daily By Mouth False Miralax 17 gram/dose oral powder 17 gram By Mouth Once daily For contispation 17 gram 2023 Active 2023 18174 49393 0 Once daily By Mouth False Senna 8.6 mg tablet 2 tabs By Mouth Once daily For constipation 2 tabs 2023 Active 2023 57172 03024 1 Once daily By Mouth False Simvastatin 20 mg tablet [generic] 20 mg By Mouth Once daily For Hyperlipidemi a 20 mg 2023 Active 2023 80460 98685 0 Once daily By Mouth False Spiriva with HandiHaler 18 mcg and inhalation capsules 1 capsule Inhalation Once daily For COPD 1 capsule 2023 Active 2023 48216 81966 1 Once daily Inhala tion False Ventolin HFA 90 mcg/actuati on aerosol inhaler 2 puff Inhalation Every 4 hours as needed For COPD 2 puff 2023 Active 2023 27504 01918 0 Every 4 hours as needed Inhala tion False ProSource No Carb 15 gram-60 kcal/30 mL oral liquid 30ml By Mouth Twice daily For Protien supplement 30ml 01/30 Inactiv e 2023 05596 10223 5 Twice daily By Mouth False Albuterol sulfate 2.5 mg/3 mL (0.083 %) solution for nebulizatio n [generic] 3 ml Inhalation Every 6 hours as needed For wheezing 3 ml 2023 Active 2023 90519 77726 3 Every 6 hours as needed Inhala tion False Acetaminoph en 325 mg tablet [generic] 650 mg By Mouth Every 6 hours For Mild Pain 650 mg 01/29 Inactiv e 2023 24230 04127 0 Every 6 hours By Mouth False Tylenol 325 mg tablet 2 tabs By Mouth Every 4 hours as needed For Pain DO NOT EXCEED 3000 MG APAP/24 Hours 2 tabs 2023 Active 2023 06561 02258 0 Every 4 hours as needed By Mouth False Tylenol 325 mg tablet 2 tabs By Mouth Every 4 hours as needed For Fever >100 DO NOT EXCEED 3000 MG APAP/24 Hours 2 tabs 2023 Active 2023 09055 17289 0 Every 4 hours as needed By Mouth False Dulcolax (bisacodyl) 10 mg rectal suppository One Suppository per rectum PRN if Milk of Magnisia ineffective. Give on day 5 of no BM 1 sup 2023 Active 2023 68661 81365 1 Daily as needed Rectal False Fleet Enema 19 gram-7 gram/118 mL Administer per rectum PRN one time if dulcolax suppository not effective. Give on day 6 of no BM 1 2023 Active 2023 20326 19408 6 Daily as needed Rectal False Milk of Magnesia 400 mg/5 mL oral suspension [Magnesium hydroxide] PRN 30ml By Mouth Daily as needed for constipation one time daily if no BM, on day 4 of no BM (PRN refer to instructions) For Constipation 30 mL 2023 Active 2023 39901 97853 6 Daily as needed By Mouth False Oxycodone 5 mg tablet [generic] 01/29 Inactiv e 2023 95610 80324 1 Oxycodone 5 mg tablet [generic] 5mg By Mouth Every 4 hours as needed for severe pain for pain rate 7-10. For right pubis fracture 5mg 01/31 Inactiv e 2023 49658 45340 1 Every 4 hours as needed By Mouth False Cymbalta 30 mg capsule,del ayed release 30 mg By Mouth Once daily For Depression 30 mg 02/04 Inactiv e 2023 10966 94981 0 Once daily By Mouth False Acetaminoph en 500 mg tablet [generic] 1000 mg By Mouth Twice daily not to exceed 3gm APAP in 24 hours For Pain 1000 mg 2023 Active 2023 73801 22353 8 Twice daily By Mouth False Healthshake 118 ml BID 118 ml By Mouth Twice daily Healthshake 118 ml BID For MNA of 7 - malnourished - please record total ml consumed 118 ml 2023 Active 2023 Twice daily By Mouth False Oxycodone 5 mg tablet [generic] 01/31 Inactiv e 2023 55362 59599 1 Oxycodone 5 mg tablet [generic] 5mg By Mouth Every 4 hours as needed for severe pain for pain rate 7-10. For right pubis fracture 5mg 02/01 Inactiv e 2023 01318 43422 1 Every 4 hours as needed By Mouth False Oxycodone 5 mg tablet [generic] 5mg By Mouth Every 4 hours as needed for severe pain 7-10 For right pubis fx 5mg 2023 Active 2023 72102 98539 1 Every 4 hours as needed By Mouth False Cymbalta 60 mg capsule,del ayed release 60mg Once daily depression 60mg 2023 Active 2023 05966 75680 0 Once daily By Mouth False Enoxaparin 40 mg/0.4 mL subcutaneou s syringe [generic] 20mg Subcutaneous Once daily For anticoag 20mg 2023 Active 2023 52814 01904 0 Once daily Subcut aneous False Problems [...] Temperature SpO2 Blood Sugar Pulse Respirations 210 50508 7 78.00 mm[Hg] - Lying Down 186.00 mm[Hg] - Lying Down 109.80 NI 97.90 Forehead Scan 91.00 % 92.00/ min 18.00/min 210 42034 1 74.00 mm[Hg] - Lying Down 147.00 mm[Hg] - Lying Down 85.00/ min 211 59249 2 72.00 mm[Hg] - Sitting 138.00 mm[Hg] - Sitting 98.40 Tympanic 86.00/ min 18.00/min 211 14196 2 59.00 mm[Hg] - Sitting 117.00 mm[Hg] - Sitting 98.20 Tympanic 99.00 % 81.00/ min 18.00/min 211 67140 5 69.00 mm[Hg] - Sitting 145.00 mm[Hg] - Sitting 211 61313 9 69.00 mm[Hg] - Sitting 145.00 mm[Hg] - Sitting 211 02176 5 69.00 mm[Hg] - Sitting 145.00 mm[Hg] - Sitting 211 00681 6 69.00 mm[Hg] - Sitting 212 04031 7 59.00 mm[Hg] - Sitting 117.00 mm[Hg] - Sitting 98.20 Tympanic 81.00/ min 18.00/min 212 70241 9 97.80 Tympanic 83006 6 55.00 mm[Hg] - Sitting 109.00 mm[Hg] - Sitting 97.30 Tympanic 94.00 % 75.00/ min 18.00/min 47992 212 14888 5 68.00 mm[Hg] - Sitting 128.00 mm[Hg] - Sitting 97.80 Tympanic 80.00/ min 18.00/min 73166 212 13485 4 97.50 Tympanic 83550 212 06075 9 41426 212 82957 6 71.00 mm[Hg] - Sitting 117.00 mm[Hg] - Sitting 73696 213 93044 0 60.00 mm[Hg] - Sitting 116.00 mm[Hg] - Sitting 98.40 Forehead Scan 94.00 % 72.00/ min 16.00/min 52855 213 77542 7 70.00 mm[Hg] - Sitting 118.00 mm[Hg] - Sitting 98.00 Tympanic 82.00/ min 18.00/min 81665 213 07300 3 97.90 Tympanic 55962 213 79640 5 73.00 mm[Hg] - Lying Down 127.00 mm[Hg] - Lying Down 78324 213 21180 3 05892 214 06971 1 62.00 mm[Hg] - Sitting 127.00 mm[Hg] - Sitting 97.80 Tympanic 94.00 % 72.00/ min 16.00/min 14490 214 27726 4 59.00 mm[Hg] - Lying Down 113.00 mm[Hg] - Lying Down 65668 215 93896 0 56.00 mm[Hg] - Sitting 101.00 mm[Hg] - Sitting 97.80 Tympanic 95.00 % 71.00/ min 16.00/min 28753 215 12237 5 62 NI 29576 215 32246 8 57.00 mm[Hg] - Lying Down 113.00 mm[Hg] - Lying Down 69400 216 73343 3 71.00 mm[Hg] - Sitting 161.00 mm[Hg] - Sitting 98.10 Tympanic 93.00 % 81.00/ min 16.00/min 94663 216 01224 1 72.00 mm[Hg] - Sitting 115.00 mm[Hg] - Sitting 26963 217 89298 2 54448 217 06528 4 62.00 mm[Hg] - Sitting 112.00 mm[Hg] - Sitting 25784 217 59064 3 57.00 mm[Hg] - Sitting 114.00 mm[Hg] - Sitting 98.30 Tympanic 98.00 % 78.00/ min 20.00/min 03848 217 07112 4 62.00 mm[Hg] - Lying Down 111.00 mm[Hg] - Lying Down 76157 218 76682 0 70.00 mm[Hg] - Sitting 158.00 mm[Hg] - Sitting 97.60 Tympanic 97.00 % 68.00/ min 18.00/min 63049 218 75152 5 65.00 mm[Hg] - Lying Down 113.00 mm[Hg] - Lying Down 86306 219 15268 1 67.00 mm[Hg] - Sitting 112.00 mm[Hg] - Sitting 24875 220 70208 0 82.00 mm[Hg] - Sitting 160.00 mm[Hg] - Sitting 97.90 Forehead Scan 95.00 % 87.00/ min 16.00/min 59759 220 61647 7 69.00 mm[Hg] - Sitting 119.00 mm[Hg] - Sitting 34265 221 26355 1 82.00 mm[Hg] - Sitting 156.00 mm[Hg] - Sitting 98.20 Tympanic 95.00 % 72.00/ min 18.00/min 32759 221 75582 1 78.00 mm[Hg] - Sitting 148.00 mm[Hg] - Sitting 81299 222 22312 0 81.00 mm[Hg] - Sitting 161.00 mm[Hg] - Sitting 97.70 Tympanic 94.00 % 80.00/ min 18.00/min 30734 222 30970 3 87.00 mm[Hg] - Sitting 141.00 mm[Hg] - Sitting 11587 223 25911 9 68.00 mm[Hg] - Sitting 138.00 mm[Hg] - Sitting 98.10 Tympanic 92.00 % 85.00/ min 18.00/min 44092 223 46846 4 67.00 mm[Hg] - Sitting 128.00 mm[Hg] - Sitting 59998 224 92688 6 75009 224 96688 5 73.00 mm[Hg] - Lying Down 151.00 mm[Hg] - Lying Down 98.40 Tympanic 95.00 % 75.00/ min 18.00/min 53482 224 18324 3 63.00 mm[Hg] - Sitting 124.00 mm[Hg] - Sitting 57077 225 01015 1 97.30 Tympanic 95.00 % 72.00/ min 20.00/min 225 73077 6 67.00 mm[Hg] - Sitting 132.00 mm[Hg] - Sitting 226 43998 2 67.00 mm[Hg] - Sitting 121.00 mm[Hg] - Sitting
--- OUTSIDE RECORDS SUMMARY | 2024-04-10 03:17 | External Medical Summary | Continuity Of Care Document ---
Author Name Unknown Address [address] [address] Organization [facility] () Care Team Providers Care Auto Headlight Mechanic Name Role Phone DO Alonso Amy Primary Care Provider [phone] Allergies Allergy Reaction Start Date End Date [...] 3 0.1 mL 01/29 Inactiv e 2023 19623 66265 0 1 time Intrad ermal False Tubersol 5 tub. unit/0.1 mL intradermal injection solution [Tuberculin PPD] 0.1mL Intradermal 1 time For PPD 2nd Step Give 2nd Step PPD Day 1 and Read results Day 3 (schedule 7 days after 1st READ) 0.1mL 02/07 Inactiv e 2023 54835 59330 0 1 time Intrad ermal False Oxycodone 5 mg tablet [generic] 5mg By Mouth Every 4 hours as needed for severe pain for pain rate 7-10. For right pubis fracture 5mg 01/27 Inactiv e 2023 97420 03520 1 Every 4 hours as needed By Mouth False OXYCODONE 5 MG TABLET [GENERIC]IM MEDIATE RELEASE 2.5mg By Mouth Every 4 hours as needed tablet po for moderate pain, pain rate 4-6 on pain scale 1-10. For pain 2.5mg 01/27 Inactiv e 2023 Every 4 hours as needed By Mouth False Oxycodone 5 mg tablet [generic] 01/27 Inactiv e 2023 01890 93725 1 Oxycodone 5 mg tablet [generic] 5mg By Mouth Every 4 hours as needed for severe pain for pain rate 7-10. For right pubis fracture 5mg 01/29 Inactiv e 2023 82088 97525 1 Every 4 hours as needed By [...] For Muscle spasms 175mg 2023 Active 2023 97536 91552 1 Every 6 hours as needed By Mouth False Cephalexin 500 mg capsule [generic] 500mg By Mouth Every 8 hours For UTI 500mg 01/30 Inactiv e 2023 59411 45102 1 Every 8 hours By Mouth False Aspirin 81 mg chewable tablet [generic] 81 mg By Mouth Once daily For AAA 81 mg 2023 Active 2023 20534 09048 6 Once daily By Mouth False Colace 100 mg capsule 100mg By Mouth Twice daily For constipation 100mg 2023 Active 2023 44667 58464 1 Twice daily By Mouth False Enoxaparin 300 mg/3 mL subcutaneou s solution [generic] 20mg Subcutaneous Once daily For anticoag. 20mg 02/06 Inactiv e 2023 41583 55381 1 Once daily Subcut aneous False Losartan 50 mg tablet [generic] 50 By Mouth Once daily For HTN 50 2023 Active 2023 65063 01386 9 Once daily By Mouth False Miralax 17 gram/dose oral powder 17 gram By Mouth Once daily For contispation 17 gram 2023 Active 2023 43884 80177 0 Once daily By Mouth False Senna 8.6 mg tablet 2 tabs By Mouth Once daily For constipation 2 tabs 2023 Active 2023 10746 16438 1 Once daily By Mouth False Simvastatin 20 mg tablet [generic] 20 mg By Mouth Once daily For Hyperlipidemi a 20 mg 2023 Active 2023 18973 61717 0 Once daily By Mouth False Spiriva with HandiHaler 18 mcg and inhalation capsules 1 capsule Inhalation Once daily For COPD 1 capsule 2023 Active 2023 69746 72225 1 Once daily Inhala tion False Ventolin HFA 90 mcg/actuati on aerosol inhaler 2 puff Inhalation Every 4 hours as needed For COPD 2 puff 2023 Active 2023 91253 46064 0 Every 4 hours as needed Inhala tion False ProSource No Carb 15 gram-60 kcal/30 mL oral liquid 30ml By Mouth Twice daily For Protien supplement 30ml 01/30 Inactiv e 2023 87312 70113 5 Twice daily By Mouth False Albuterol sulfate 2.5 mg/3 mL (0.083 %) solution for nebulizatio n [generic] 3 ml Inhalation Every 6 hours as needed For wheezing 3 ml 2023 Active 2023 65340 18700 3 Every 6 hours as needed Inhala tion False Acetaminoph en 325 mg tablet [generic] 650 mg By Mouth Every 6 hours For Mild Pain 650 mg 01/29 Inactiv e 2023 97958 23547 0 Every 6 hours By Mouth False Tylenol 325 mg tablet 2 tabs By Mouth Every 4 hours as needed For Pain DO NOT EXCEED 3000 MG APAP/24 Hours 2 tabs 2023 Active 2023 85423 71809 0 Every 4 hours as needed By Mouth False Tylenol 325 mg tablet 2 tabs By Mouth Every 4 hours as needed For Fever >100 DO NOT EXCEED 3000 MG APAP/24 Hours 2 tabs 2023 Active 2023 68259 99712 0 Every 4 hours as needed By Mouth False Dulcolax (bisacodyl) 10 mg rectal suppository One Suppository per rectum PRN if Milk of Magnisia ineffective. Give on day 5 of no BM 1 sup 2023 Active 2023 43751 98761 1 Daily as needed Rectal False Fleet Enema 19 gram-7 gram/118 mL Administer per rectum PRN one time if dulcolax suppository not effective. Give on day 6 of no BM 1 2023 Active 2023 38082 99084 6 Daily as needed Rectal False Milk of Magnesia 400 mg/5 mL oral suspension [Magnesium hydroxide] PRN 30ml By Mouth Daily as needed for constipation one time daily if no BM, on day 4 of no BM (PRN refer to instructions) For Constipation 30 mL 2023 Active 2023 33546 85490 6 Daily as needed By Mouth False Oxycodone 5 mg tablet [generic] 01/29 Inactiv e 2023 80711 62555 1 Oxycodone 5 mg tablet [generic] 5mg By Mouth Every 4 hours as needed for severe pain for pain rate 7-10. For right pubis fracture 5mg 01/31 Inactiv e 2023 53947 57927 1 Every 4 hours as needed By Mouth False Cymbalta 30 mg capsule,del ayed release 30 mg By Mouth Once daily For Depression 30 mg 02/04 Inactiv e 2023 92869 54991 0 Once daily By Mouth False Acetaminoph en 500 mg tablet [generic] 1000 mg By Mouth Twice daily not to exceed 3gm APAP in 24 hours For Pain 1000 mg 2023 Active 2023 44053 99632 8 Twice daily By Mouth False Healthshake 118 ml BID 118 ml By Mouth Twice daily Healthshake 118 ml BID For MNA of 7 - malnourished - please record total ml consumed 118 ml 2023 Active 2023 Twice daily By Mouth False Oxycodone 5 mg tablet [generic] 01/31 Inactiv e 2023 18824 38901 1 Oxycodone 5 mg tablet [generic] 5mg By Mouth Every 4 hours as needed for severe pain for pain rate 7-10. For right pubis fracture 5mg 02/01 Inactiv e 2023 88661 78465 1 Every 4 hours as needed By Mouth False Oxycodone 5 mg tablet [generic] 5mg By Mouth Every 4 hours as needed for severe pain 7-10 For right pubis fx 5mg 2023 Active 2023 37979 26552 1 Every 4 hours as needed By Mouth False Cymbalta 60 mg capsule,del ayed release 60mg Once daily depression 60mg 2023 Active 2023 18502 75837 0 Once daily By Mouth False Enoxaparin 40 mg/0.4 mL subcutaneou s syringe [generic] 20mg Subcutaneous Once daily For anticoag 20mg 2023 Active 2023 58463 57476 0 Once daily Subcut aneous False Problems [...] Temperature SpO2 Blood Sugar Pulse Respirations 210 82950 7 78.00 mm[Hg] - Lying Down 186.00 mm[Hg] - Lying Down 109.80 NI 97.90 Forehead Scan 91.00 % 92.00/ min 18.00/min 210 33549 1 74.00 mm[Hg] - Lying Down 147.00 mm[Hg] - Lying Down 85.00/ min 211 42825 2 72.00 mm[Hg] - Sitting 138.00 mm[Hg] - Sitting 98.40 Tympanic 86.00/ min 18.00/min 211 13278 2 59.00 mm[Hg] - Sitting 117.00 mm[Hg] - Sitting 98.20 Tympanic 99.00 % 81.00/ min 18.00/min 211 10250 5 69.00 mm[Hg] - Sitting 145.00 mm[Hg] - Sitting 211 16324 9 69.00 mm[Hg] - Sitting 145.00 mm[Hg] - Sitting 211 18282 5 69.00 mm[Hg] - Sitting 145.00 mm[Hg] - Sitting 211 04120 6 69.00 mm[Hg] - Sitting 212 81649 7 59.00 mm[Hg] - Sitting 117.00 mm[Hg] - Sitting 98.20 Tympanic 81.00/ min 18.00/min 212 78347 9 97.80 Tympanic 32108 6 55.00 mm[Hg] - Sitting 109.00 mm[Hg] - Sitting 97.30 Tympanic 94.00 % 75.00/ min 18.00/min 29530 212 90840 5 68.00 mm[Hg] - Sitting 128.00 mm[Hg] - Sitting 97.80 Tympanic 80.00/ min 18.00/min 44471 212 97836 4 97.50 Tympanic 14437 212 59337 9 32783 212 46603 6 71.00 mm[Hg] - Sitting 117.00 mm[Hg] - Sitting 14473 213 69544 0 60.00 mm[Hg] - Sitting 116.00 mm[Hg] - Sitting 98.40 Forehead Scan 94.00 % 72.00/ min 16.00/min 61575 213 27990 7 70.00 mm[Hg] - Sitting 118.00 mm[Hg] - Sitting 98.00 Tympanic 82.00/ min 18.00/min 36847 213 38856 3 97.90 Tympanic 67183 213 48609 5 73.00 mm[Hg] - Lying Down 127.00 mm[Hg] - Lying Down 16685 213 08605 3 28874 214 81705 1 62.00 mm[Hg] - Sitting 127.00 mm[Hg] - Sitting 97.80 Tympanic 94.00 % 72.00/ min 16.00/min 25337 214 43809 4 59.00 mm[Hg] - Lying Down 113.00 mm[Hg] - Lying Down 54267 215 45400 0 56.00 mm[Hg] - Sitting 101.00 mm[Hg] - Sitting 97.80 Tympanic 95.00 % 71.00/ min 16.00/min 96193 215 96777 5 62 NI 53250 215 14548 8 57.00 mm[Hg] - Lying Down 113.00 mm[Hg] - Lying Down 28614 216 58448 3 71.00 mm[Hg] - Sitting 161.00 mm[Hg] - Sitting 98.10 Tympanic 93.00 % 81.00/ min 16.00/min 26799 216 99329 1 72.00 mm[Hg] - Sitting 115.00 mm[Hg] - Sitting 92315 217 26306 2 06954 217 88741 4 62.00 mm[Hg] - Sitting 112.00 mm[Hg] - Sitting 39957 217 11395 3 57.00 mm[Hg] - Sitting 114.00 mm[Hg] - Sitting 98.30 Tympanic 98.00 % 78.00/ min 20.00/min 19373 217 28971 4 62.00 mm[Hg] - Lying Down 111.00 mm[Hg] - Lying Down 86735 218 89108 0 70.00 mm[Hg] - Sitting 158.00 mm[Hg] - Sitting 97.60 Tympanic 97.00 % 68.00/ min 18.00/min 76916 218 63497 5 65.00 mm[Hg] - Lying Down 113.00 mm[Hg] - Lying Down 29106 219 56129 1 67.00 mm[Hg] - Sitting 112.00 mm[Hg] - Sitting 80117 220 72617 0 82.00 mm[Hg] - Sitting 160.00 mm[Hg] - Sitting 97.90 Forehead Scan 95.00 % 87.00/ min 16.00/min 82183 220 27733 7 69.00 mm[Hg] - Sitting 119.00 mm[Hg] - Sitting 75518 221 06374 1 82.00 mm[Hg] - Sitting 156.00 mm[Hg] - Sitting 98.20 Tympanic 95.00 % 72.00/ min 18.00/min 64057 221 51391 1 78.00 mm[Hg] - Sitting 148.00 mm[Hg] - Sitting 32934 222 13416 0 81.00 mm[Hg] - Sitting 161.00 mm[Hg] - Sitting 97.70 Tympanic 94.00 % 80.00/ min 18.00/min 55085 222 97931 3 87.00 mm[Hg] - Sitting 141.00 mm[Hg] - Sitting 42026 223 64582 9 68.00 mm[Hg] - Sitting 138.00 mm[Hg] - Sitting 98.10 Tympanic 92.00 % 85.00/ min 18.00/min 98615 223 57032 4 67.00 mm[Hg] - Sitting 128.00 mm[Hg] - Sitting 71509 224 80936 6 37485 224 36542 5 73.00 mm[Hg] - Lying Down 151.00 mm[Hg] - Lying Down 98.40 Tympanic 95.00 % 75.00/ min 18.00/min 77917 224 78806 3 63.00 mm[Hg] - Sitting 124.00 mm[Hg] - Sitting
--- OUTSIDE RECORDS SUMMARY | 2024-04-10 03:18 | External Medical Summary | Continuity Of Care Document ---
Author Name Unknown Address [address] [address] [facility] () Care Team Providers Care Short Story Writer Name Role Phone DO Alonso Amy Primary Care Provider [phone] Allergies Allergy Reaction Start Date End Date [...] 3 0.1 mL 01/29 Inactiv e 2023 29309 74746 0 1 time Intrad ermal False Tubersol 5 tub. unit/0.1 mL intradermal injection solution [Tuberculin PPD] 0.1mL Intradermal 1 time For PPD 2nd Step Give 2nd Step PPD Day 1 and Read results Day 3 (schedule 7 days after 1st READ) 0.1mL 02/07 Inactiv e 2023 46972 33057 0 1 time Intrad ermal False Oxycodone 5 mg tablet [generic] 5mg By Mouth Every 4 hours as needed for severe pain for pain rate 7-10. For right pubis fracture 5mg 01/27 Inactiv e 2023 77794 76443 1 Every 4 hours as needed By Mouth False OXYCODONE 5 MG TABLET [GENERIC]IM MEDIATE RELEASE 2.5mg By Mouth Every 4 hours as needed tablet po for moderate pain, pain rate 4-6 on pain scale 1-10. For pain 2.5mg 01/27 Inactiv e 2023 Every 4 hours as needed By Mouth False Oxycodone 5 mg tablet [generic] 01/27 Inactiv e 2023 64325 95998 1 Oxycodone 5 mg tablet [generic] 5mg By Mouth Every 4 hours as needed for severe pain for pain rate 7-10. For right pubis fracture 5mg 01/29 Inactiv e 2023 78042 36016 1 Every 4 hours as needed By [...] For Muscle spasms 175mg 2023 Active 2023 62205 99874 1 Every 6 hours as needed By Mouth False Cephalexin 500 mg capsule [generic] 500mg By Mouth Every 8 hours For UTI 500mg 01/30 Inactiv e 2023 47880 74193 1 Every 8 hours By Mouth False Aspirin 81 mg chewable tablet [generic] 81 mg By Mouth Once daily For AAA 81 mg 2023 Active 2023 68111 13715 6 Once daily By Mouth False Colace 100 mg capsule 100mg By Mouth Twice daily For constipation 100mg 2023 Active 2023 77176 98912 1 Twice daily By Mouth False Enoxaparin 300 mg/3 mL subcutaneou s solution [generic] 20mg Subcutaneous Once daily For anticoag. 20mg 02/06 Inactiv e 2023 53861 05512 1 Once daily Subcut aneous False Losartan 50 mg tablet [generic] 50 By Mouth Once daily For HTN 50 2023 Active 2023 42682 14871 9 Once daily By Mouth False Miralax 17 gram/dose oral powder 17 gram By Mouth Once daily For contispation 17 gram 2023 Active 2023 70870 95023 0 Once daily By Mouth False Senna 8.6 mg tablet 2 tabs By Mouth Once daily For constipation 2 tabs 2023 Active 2023 74549 23767 1 Once daily By Mouth False Simvastatin 20 mg tablet [generic] 20 mg By Mouth Once daily For Hyperlipidemi a 20 mg 2023 Active 2023 01894 67344 0 Once daily By Mouth False Spiriva with HandiHaler 18 mcg and inhalation capsules 1 capsule Inhalation Once daily For COPD 1 capsule 2023 Active 2023 38348 21607 1 Once daily Inhala tion False Ventolin HFA 90 mcg/actuati on aerosol inhaler 2 puff Inhalation Every 4 hours as needed For COPD 2 puff 2023 Active 2023 50324 56452 0 Every 4 hours as needed Inhala tion False ProSource No Carb 15 gram-60 kcal/30 mL oral liquid 30ml By Mouth Twice daily For Protien supplement 30ml 01/30 Inactiv e 2023 10014 48856 5 Twice daily By Mouth False Albuterol sulfate 2.5 mg/3 mL (0.083 %) solution for nebulizatio n [generic] 3 ml Inhalation Every 6 hours as needed For wheezing 3 ml 2023 Active 2023 32237 52800 3 Every 6 hours as needed Inhala tion False Acetaminoph en 325 mg tablet [generic] 650 mg By Mouth Every 6 hours For Mild Pain 650 mg 01/29 Inactiv e 2023 64590 86581 0 Every 6 hours By Mouth False Tylenol 325 mg tablet 2 tabs By Mouth Every 4 hours as needed For Pain DO NOT EXCEED 3000 MG APAP/24 Hours 2 tabs 2023 Active 2023 68048 13864 0 Every 4 hours as needed By Mouth False Tylenol 325 mg tablet 2 tabs By Mouth Every 4 hours as needed For Fever >100 DO NOT EXCEED 3000 MG APAP/24 Hours 2 tabs 2023 Active 2023 99751 49496 0 Every 4 hours as needed By Mouth False Dulcolax (bisacodyl) 10 mg rectal suppository One Suppository per rectum PRN if Milk of Magnisia ineffective. Give on day 5 of no BM 1 sup 2023 Active 2023 34562 23544 1 Daily as needed Rectal False Fleet Enema 19 gram-7 gram/118 mL Administer per rectum PRN one time if dulcolax suppository not effective. Give on day 6 of no BM 1 2023 Active 2023 60046 90564 6 Daily as needed Rectal False Milk of Magnesia 400 mg/5 mL oral suspension [Magnesium hydroxide] PRN 30ml By Mouth Daily as needed for constipation one time daily if no BM, on day 4 of no BM (PRN refer to instructions) For Constipation 30 mL 2023 Active 2023 51996 65917 6 Daily as needed By Mouth False Oxycodone 5 mg tablet [generic] 01/29 Inactiv e 2023 14525 42705 1 Oxycodone 5 mg tablet [generic] 5mg By Mouth Every 4 hours as needed for severe pain for pain rate 7-10. For right pubis fracture 5mg 01/31 Inactiv e 2023 14776 63012 1 Every 4 hours as needed By Mouth False Cymbalta 30 mg capsule,del ayed release 30 mg By Mouth Once daily For Depression 30 mg 02/04 Inactiv e 2023 64564 47182 0 Once daily By Mouth False Acetaminoph en 500 mg tablet [generic] 1000 mg By Mouth Twice daily not to exceed 3gm APAP in 24 hours For Pain 1000 mg 2023 Active 2023 48487 98663 8 Twice daily By Mouth False Healthshake 118 ml BID 118 ml By Mouth Twice daily Healthshake 118 ml BID For MNA of 7 - malnourished - please record total ml consumed 118 ml 2023 Active 2023 Twice daily By Mouth False Oxycodone 5 mg tablet [generic] 01/31 Inactiv e 2023 92074 25666 1 Oxycodone 5 mg tablet [generic] 5mg By Mouth Every 4 hours as needed for severe pain for pain rate 7-10. For right pubis fracture 5mg 02/01 Inactiv e 2023 46429 99711 1 Every 4 hours as needed By Mouth False Oxycodone 5 mg tablet [generic] 5mg By Mouth Every 4 hours as needed for severe pain 7-10 For right pubis fx 5mg 2023 Active 2023 17810 09378 1 Every 4 hours as needed By Mouth False Cymbalta 60 mg capsule,del ayed release 60mg Once daily depression 60mg 2023 Active 2023 17147 24247 0 Once daily By Mouth False Enoxaparin 40 mg/0.4 mL subcutaneou s syringe [generic] 20mg Subcutaneous Once daily For anticoag 20mg 2023 Active 2023 15305 62734 0 Once daily Subcut aneous False Problems [...] Temperature SpO2 Blood Sugar Pulse Respirations 210 70037 7 78.00 mm[Hg] - Lying Down 186.00 mm[Hg] - Lying Down 109.80 NI 97.90 Forehead Scan 91.00 % 92.00/ min 18.00/min 210 97444 1 74.00 mm[Hg] - Lying Down 147.00 mm[Hg] - Lying Down 85.00/ min 211 51130 2 72.00 mm[Hg] - Sitting 138.00 mm[Hg] - Sitting 98.40 Tympanic 86.00/ min 18.00/min 211 08119 2 59.00 mm[Hg] - Sitting 117.00 mm[Hg] - Sitting 98.20 Tympanic 99.00 % 81.00/ min 18.00/min 211 22765 5 69.00 mm[Hg] - Sitting 145.00 mm[Hg] - Sitting 211 02355 9 69.00 mm[Hg] - Sitting 145.00 mm[Hg] - Sitting 211 57300 5 69.00 mm[Hg] - Sitting 145.00 mm[Hg] - Sitting 211 25690 6 69.00 mm[Hg] - Sitting 212 39538 7 59.00 mm[Hg] - Sitting 117.00 mm[Hg] - Sitting 98.20 Tympanic 81.00/ min 18.00/min 212 63209 9 97.80 Tympanic 08713 6 55.00 mm[Hg] - Sitting 109.00 mm[Hg] - Sitting 97.30 Tympanic 94.00 % 75.00/ min 18.00/min 32051 212 65138 5 68.00 mm[Hg] - Sitting 128.00 mm[Hg] - Sitting 97.80 Tympanic 80.00/ min 18.00/min 60698 212 38219 4 97.50 Tympanic 62406 212 27414 9 15748 212 46525 6 71.00 mm[Hg] - Sitting 117.00 mm[Hg] - Sitting 72471 213 06686 0 60.00 mm[Hg] - Sitting 116.00 mm[Hg] - Sitting 98.40 Forehead Scan 94.00 % 72.00/ min 16.00/min 15836 213 32765 7 70.00 mm[Hg] - Sitting 118.00 mm[Hg] - Sitting 98.00 Tympanic 82.00/ min 18.00/min 06751 213 90916 3 97.90 Tympanic 65708 213 84661 5 73.00 mm[Hg] - Lying Down 127.00 mm[Hg] - Lying Down 92361 213 97125 3 15856 214 10285 1 62.00 mm[Hg] - Sitting 127.00 mm[Hg] - Sitting 97.80 Tympanic 94.00 % 72.00/ min 16.00/min 73795 214 29909 4 59.00 mm[Hg] - Lying Down 113.00 mm[Hg] - Lying Down 19420 215 70175 0 56.00 mm[Hg] - Sitting 101.00 mm[Hg] - Sitting 97.80 Tympanic 95.00 % 71.00/ min 16.00/min 36705 215 48504 5 62 NI 37189 215 31668 8 57.00 mm[Hg] - Lying Down 113.00 mm[Hg] - Lying Down 62912 216 93926 3 71.00 mm[Hg] - Sitting 161.00 mm[Hg] - Sitting 98.10 Tympanic 93.00 % 81.00/ min 16.00/min 95623 216 93301 1 72.00 mm[Hg] - Sitting 115.00 mm[Hg] - Sitting 20641 217 63943 2 70630 217 76303 4 62.00 mm[Hg] - Sitting 112.00 mm[Hg] - Sitting 35649 217 67841 3 57.00 mm[Hg] - Sitting 114.00 mm[Hg] - Sitting 98.30 Tympanic 98.00 % 78.00/ min 20.00/min 07527 217 48708 4 62.00 mm[Hg] - Lying Down 111.00 mm[Hg] - Lying Down 92097 218 46184 0 70.00 mm[Hg] - Sitting 158.00 mm[Hg] - Sitting 97.60 Tympanic 97.00 % 68.00/ min 18.00/min 72918 218 97676 5 65.00 mm[Hg] - Lying Down 113.00 mm[Hg] - Lying Down 86624 219 48229 1 67.00 mm[Hg] - Sitting 112.00 mm[Hg] - Sitting 41970 220 50007 0 82.00 mm[Hg] - Sitting 160.00 mm[Hg] - Sitting 97.90 Forehead Scan 95.00 % 87.00/ min 16.00/min 26808 220 76727 7 69.00 mm[Hg] - Sitting 119.00 mm[Hg] - Sitting 48858 221 52096 1 82.00 mm[Hg] - Sitting 156.00 mm[Hg] - Sitting 98.20 Tympanic 95.00 % 72.00/ min 18.00/min 25878 221 10275 1 78.00 mm[Hg] - Sitting 148.00 mm[Hg] - Sitting
--- OUTSIDE RECORDS SUMMARY | 2024-04-10 03:18 | External Medical Summary | Continuity Of Care Document ---
Author Name Unknown Address [address] [address] Organization [facility] () Care Team Providers Care Technical Service Specialist Name Role Phone DO Alonso Amy Primary Care Provider [phone] Allergies Allergy Reaction Start Date End Date [...] 3 0.1 mL 01/29 Inactiv e 2023 67477 54123 0 1 time Intrad ermal False Tubersol 5 tub. unit/0.1 mL intradermal injection solution [Tuberculin PPD] 0.1mL Intradermal 1 time For PPD 2nd Step Give 2nd Step PPD Day 1 and Read results Day 3 (schedule 7 days after 1st READ) 0.1mL 02/07 Active 2023 38144 62014 0 1 time Intrad ermal False Oxycodone 5 mg tablet [generic] 5mg By Mouth Every 4 hours as needed for severe pain for pain rate 7-10. For right pubis fracture 5mg 01/27 Inactiv e 2023 35373 80350 1 Every 4 hours as needed By Mouth False OXYCODONE 5 MG TABLET [GENERIC]IM MEDIATE RELEASE 2.5mg By Mouth Every 4 hours as needed tablet po for moderate pain, pain rate 4-6 on pain scale 1-10. For pain 2.5mg 01/27 Inactiv e 2023 Every 4 hours as needed By Mouth False Oxycodone 5 mg tablet [generic] 01/27 Inactiv e 2023 05058 16231 1 Oxycodone 5 mg tablet [generic] 5mg By Mouth Every 4 hours as needed for severe pain for pain rate 7-10. For right pubis fracture 5mg 01/29 Inactiv e 2023 68067 75828 1 Every 4 hours as needed By [...] For Muscle spasms 175mg 2023 Active 2023 53895 42646 1 Every 6 hours as needed By Mouth False Cephalexin 500 mg capsule [generic] 500mg By Mouth Every 8 hours For UTI 500mg 01/30 Inactiv e 2023 50444 47198 1 Every 8 hours By Mouth False Aspirin 81 mg chewable tablet [generic] 81 mg By Mouth Once daily For AAA 81 mg 2023 Active 2023 30083 19636 6 Once daily By Mouth False Colace 100 mg capsule 100mg By Mouth Twice daily For constipation 100mg 2023 Active 2023 54974 10611 1 Twice daily By Mouth False Enoxaparin 300 mg/3 mL subcutaneou s solution [generic] 20mg Subcutaneous Once daily For anticoag. 20mg 02/06 Inactiv e 2023 37113 35790 1 Once daily Subcut aneous False Losartan 50 mg tablet [generic] 50 By Mouth Once daily For HTN 50 2023 Active 2023 70176 28052 9 Once daily By Mouth False Miralax 17 gram/dose oral powder 17 gram By Mouth Once daily For contispation 17 gram 2023 Active 2023 17129 35681 0 Once daily By Mouth False Senna 8.6 mg tablet 2 tabs By Mouth Once daily For constipation 2 tabs 2023 Active 2023 18006 50308 1 Once daily By Mouth False Simvastatin 20 mg tablet [generic] 20 mg By Mouth Once daily For Hyperlipidemi a 20 mg 2023 Active 2023 64986 45485 0 Once daily By Mouth False Spiriva with HandiHaler 18 mcg and inhalation capsules 1 capsule Inhalation Once daily For COPD 1 capsule 2023 Active 2023 68884 60829 1 Once daily Inhala tion False Ventolin HFA 90 mcg/actuati on aerosol inhaler 2 puff Inhalation Every 4 hours as needed For COPD 2 puff 2023 Active 2023 72114 24988 0 Every 4 hours as needed Inhala tion False ProSource No Carb 15 gram-60 kcal/30 mL oral liquid 30ml By Mouth Twice daily For Protien supplement 30ml 01/30 Inactiv e 2023 26935 54453 5 Twice daily By Mouth False Albuterol sulfate 2.5 mg/3 mL (0.083 %) solution for nebulizatio n [generic] 3 ml Inhalation Every 6 hours as needed For wheezing 3 ml 2023 Active 2023 43821 43897 3 Every 6 hours as needed Inhala tion False Acetaminoph en 325 mg tablet [generic] 650 mg By Mouth Every 6 hours For Mild Pain 650 mg 01/29 Inactiv e 2023 28475 29701 0 Every 6 hours By Mouth False Tylenol 325 mg tablet 2 tabs By Mouth Every 4 hours as needed For Pain DO NOT EXCEED 3000 MG APAP/24 Hours 2 tabs 2023 Active 2023 86808 51784 0 Every 4 hours as needed By Mouth False Tylenol 325 mg tablet 2 tabs By Mouth Every 4 hours as needed For Fever >100 DO NOT EXCEED 3000 MG APAP/24 Hours 2 tabs 2023 Active 2023 62979 84249 0 Every 4 hours as needed By Mouth False Dulcolax (bisacodyl) 10 mg rectal suppository One Suppository per rectum PRN if Milk of Magnisia ineffective. Give on day 5 of no BM 1 sup 2023 Active 2023 44309 21606 1 Daily as needed Rectal False Fleet Enema 19 gram-7 gram/118 mL Administer per rectum PRN one time if dulcolax suppository not effective. Give on day 6 of no BM 1 2023 Active 2023 83028 11953 6 Daily as needed Rectal False Milk of Magnesia 400 mg/5 mL oral suspension [Magnesium hydroxide] PRN 30ml By Mouth Daily as needed for constipation one time daily if no BM, on day 4 of no BM (PRN refer to instructions) For Constipation 30 mL 2023 Active 2023 96720 53610 6 Daily as needed By Mouth False Oxycodone 5 mg tablet [generic] 01/29 Inactiv e 2023 08069 40175 1 Oxycodone 5 mg tablet [generic] 5mg By Mouth Every 4 hours as needed for severe pain for pain rate 7-10. For right pubis fracture 5mg 01/31 Inactiv e 2023 26849 10144 1 Every 4 hours as needed By Mouth False Cymbalta 30 mg capsule,del ayed release 30 mg By Mouth Once daily For Depression 30 mg 02/04 Inactiv e 2023 94415 30412 0 Once daily By Mouth False Acetaminoph en 500 mg tablet [generic] 1000 mg By Mouth Twice daily not to exceed 3gm APAP in 24 hours For Pain 1000 mg 2023 Active 2023 37866 39285 8 Twice daily By Mouth False Healthshake 118 ml BID 118 ml By Mouth Twice daily Healthshake 118 ml BID For MNA of 7 - malnourished - please record total ml consumed 118 ml 2023 Active 2023 Twice daily By Mouth False Oxycodone 5 mg tablet [generic] 01/31 Inactiv e 2023 64758 61107 1 Oxycodone 5 mg tablet [generic] 5mg By Mouth Every 4 hours as needed for severe pain for pain rate 7-10. For right pubis fracture 5mg 02/01 Inactiv e 2023 61034 50256 1 Every 4 hours as needed By Mouth False Oxycodone 5 mg tablet [generic] 5mg By Mouth Every 4 hours as needed for severe pain 7-10 For right pubis fx 5mg 2023 Active 2023 32167 27571 1 Every 4 hours as needed By Mouth False Cymbalta 60 mg capsule,del ayed release 60mg Once daily depression 60mg 2023 Active 2023 66296 09100 0 Once daily By Mouth False Enoxaparin 40 mg/0.4 mL subcutaneou s syringe [generic] 20mg Subcutaneous Once daily For anticoag 20mg 2023 Active 2023 02319 27012 0 Once daily Subcut aneous False Problems [...] Temperature SpO2 Blood Sugar Pulse Respirations 210 03939 7 78.00 mm[Hg] - Lying Down 186.00 mm[Hg] - Lying Down 109.80 NI 97.90 Forehead Scan 91.00 % 92.00/ min 18.00/min 210 04868 1 74.00 mm[Hg] - Lying Down 147.00 mm[Hg] - Lying Down 85.00/ min 211 38703 2 72.00 mm[Hg] - Sitting 138.00 mm[Hg] - Sitting 98.40 Tympanic 86.00/ min 18.00/min 211 55439 2 59.00 mm[Hg] - Sitting 117.00 mm[Hg] - Sitting 98.20 Tympanic 99.00 % 81.00/ min 18.00/min 211 20639 5 69.00 mm[Hg] - Sitting 145.00 mm[Hg] - Sitting 211 54574 9 69.00 mm[Hg] - Sitting 145.00 mm[Hg] - Sitting 211 87265 5 69.00 mm[Hg] - Sitting 145.00 mm[Hg] - Sitting 211 61194 6 69.00 mm[Hg] - Sitting 212 58406 7 59.00 mm[Hg] - Sitting 117.00 mm[Hg] - Sitting 98.20 Tympanic 81.00/ min 18.00/min 212 14881 9 97.80 Tympanic 212 70409 6 55.00 mm[Hg] - Sitting 109.00 mm[Hg] - Sitting 97.30 Tympanic 94.00 % 75.00/ min 18.00/min 31349 212 50719 5 68.00 mm[Hg] - Sitting 128.00 mm[Hg] - Sitting 97.80 Tympanic 80.00/ min 18.00/min 14428 212 36070 4 97.50 Tympanic 16467 212 27438 9 73726 212 68472 6 71.00 mm[Hg] - Sitting 117.00 mm[Hg] - Sitting 99163 213 19090 0 60.00 mm[Hg] - Sitting 116.00 mm[Hg] - Sitting 98.40 Forehead Scan 94.00 % 72.00/ min 16.00/min 89673 213 71543 7 70.00 mm[Hg] - Sitting 118.00 mm[Hg] - Sitting 98.00 Tympanic 82.00/ min 18.00/min 23197 213 87475 3 97.90 Tympanic 48091 213 15121 5 73.00 mm[Hg] - Lying Down 127.00 mm[Hg] - Lying Down 81696 213 69779 3 37780 214 11774 1 62.00 mm[Hg] - Sitting 127.00 mm[Hg] - Sitting 97.80 Tympanic 94.00 % 72.00/ min 16.00/min 85781 214 18441 4 59.00 mm[Hg] - Lying Down 113.00 mm[Hg] - Lying Down 60630 215 53086 0 56.00 mm[Hg] - Sitting 101.00 mm[Hg] - Sitting 97.80 Tympanic 95.00 % 71.00/ min 16.00/min 67739 215 56487 5 62 NI 14600 215 33925 8 57.00 mm[Hg] - Lying Down 113.00 mm[Hg] - Lying Down 60030 216 38345 3 71.00 mm[Hg] - Sitting 161.00 mm[Hg] - Sitting 98.10 Tympanic 93.00 % 81.00/ min 16.00/min 31713 216 23342 1 72.00 mm[Hg] - Sitting 115.00 mm[Hg] - Sitting 89268 217 91422 2 60118 217 68448 4 62.00 mm[Hg] - Sitting 112.00 mm[Hg] - Sitting 99712 217 67943 3 57.00 mm[Hg] - Sitting 114.00 mm[Hg] - Sitting 98.30 Tympanic 98.00 % 78.00/ min 20.00/min 20893 217 61244 4 62.00 mm[Hg] - Lying Down 111.00 mm[Hg] - Lying Down 54019 218 11566 0 70.00 mm[Hg] - Sitting 158.00 mm[Hg] - Sitting 97.60 Tympanic 97.00 % 68.00/ min 18.00/min 35232 218 54133 5 65.00 mm[Hg] - Lying Down 113.00 mm[Hg] - Lying Down 44533 219 34971 1 67.00 mm[Hg] - Sitting 112.00 mm[Hg] - Sitting
--- OUTSIDE RECORDS SUMMARY | 2024-04-10 03:18 | External Medical Summary | Continuity Of Care Document ---
Author Name Unknown Address [address] [address] Organization [facility] () Care Team Providers Care Oil Driller Name Role Phone DO Alonso Amy Primary Care Provider [phone] Allergies Allergy Reaction Start Date End Date [...] 3 0.1 mL 01/29 Inactiv e 2023 86653 92722 0 1 time Intrad ermal False Tubersol 5 tub. unit/0.1 mL intradermal injection solution [Tuberculin PPD] 0.1mL Intradermal 1 time For PPD 2nd Step Give 2nd Step PPD Day 1 and Read results Day 3 (schedule 7 days after 1st READ) 0.1mL 02/07 Active 2023 40750 98627 0 1 time Intrad ermal False Oxycodone 5 mg tablet [generic] 5mg By Mouth Every 4 hours as needed for severe pain for pain rate 7-10. For right pubis fracture 5mg 01/27 Inactiv e 2023 75629 23173 1 Every 4 hours as needed By Mouth False OXYCODONE 5 MG TABLET [GENERIC]IM MEDIATE RELEASE 2.5mg By Mouth Every 4 hours as needed tablet po for moderate pain, pain rate 4-6 on pain scale 1-10. For pain 2.5mg 01/27 Inactiv e 2023 Every 4 hours as needed By Mouth False Oxycodone 5 mg tablet [generic] 01/27 Inactiv e 2023 66468 13454 1 Oxycodone 5 mg tablet [generic] 5mg By Mouth Every 4 hours as needed for severe pain for pain rate 7-10. For right pubis fracture 5mg 01/29 Inactiv e 2023 86110 34705 1 Every 4 hours as needed By [...] For Muscle spasms 175mg 2023 Active 2023 06974 38468 1 Every 6 hours as needed By Mouth False Cephalexin 500 mg capsule [generic] 500mg By Mouth Every 8 hours For UTI 500mg 01/30 Inactiv e 2023 80044 60018 1 Every 8 hours By Mouth False Aspirin 81 mg chewable tablet [generic] 81 mg By Mouth Once daily For AAA 81 mg 2023 Active 2023 05547 77556 6 Once daily By Mouth False Colace 100 mg capsule 100mg By Mouth Twice daily For constipation 100mg 2023 Active 2023 72893 88480 1 Twice daily By Mouth False Enoxaparin 300 mg/3 mL subcutaneou s solution [generic] 20mg Subcutaneous Once daily For anticoag. 20mg 02/06 Inactiv e 2023 11766 09367 1 Once daily Subcut aneous False Losartan 50 mg tablet [generic] 50 By Mouth Once daily For HTN 50 2023 Active 2023 60681 11619 9 Once daily By Mouth False Miralax 17 gram/dose oral powder 17 gram By Mouth Once daily For contispation 17 gram 2023 Active 2023 26176 63135 0 Once daily By Mouth False Senna 8.6 mg tablet 2 tabs By Mouth Once daily For constipation 2 tabs 2023 Active 2023 91887 82778 1 Once daily By Mouth False Simvastatin 20 mg tablet [generic] 20 mg By Mouth Once daily For Hyperlipidemi a 20 mg 2023 Active 2023 88897 31830 0 Once daily By Mouth False Spiriva with HandiHaler 18 mcg and inhalation capsules 1 capsule Inhalation Once daily For COPD 1 capsule 2023 Active 2023 10322 72361 1 Once daily Inhala tion False Ventolin HFA 90 mcg/actuati on aerosol inhaler 2 puff Inhalation Every 4 hours as needed For COPD 2 puff 2023 Active 2023 39248 03242 0 Every 4 hours as needed Inhala tion False ProSource No Carb 15 gram-60 kcal/30 mL oral liquid 30ml By Mouth Twice daily For Protien supplement 30ml 01/30 Inactiv e 2023 23754 93868 5 Twice daily By Mouth False Albuterol sulfate 2.5 mg/3 mL (0.083 %) solution for nebulizatio n [generic] 3 ml Inhalation Every 6 hours as needed For wheezing 3 ml 2023 Active 2023 42729 59187 3 Every 6 hours as needed Inhala tion False Acetaminoph en 325 mg tablet [generic] 650 mg By Mouth Every 6 hours For Mild Pain 650 mg 01/29 Inactiv e 2023 35407 58707 0 Every 6 hours By Mouth False Tylenol 325 mg tablet 2 tabs By Mouth Every 4 hours as needed For Pain DO NOT EXCEED 3000 MG APAP/24 Hours 2 tabs 2023 Active 2023 92681 53776 0 Every 4 hours as needed By Mouth False Tylenol 325 mg tablet 2 tabs By Mouth Every 4 hours as needed For Fever >100 DO NOT EXCEED 3000 MG APAP/24 Hours 2 tabs 2023 Active 2023 84790 01318 0 Every 4 hours as needed By Mouth False Dulcolax (bisacodyl) 10 mg rectal suppository One Suppository per rectum PRN if Milk of Magnisia ineffective. Give on day 5 of no BM 1 sup 2023 Active 2023 47308 52591 1 Daily as needed Rectal False Fleet Enema 19 gram-7 gram/118 mL Administer per rectum PRN one time if dulcolax suppository not effective. Give on day 6 of no BM 1 2023 Active 2023 70939 11854 6 Daily as needed Rectal False Milk of Magnesia 400 mg/5 mL oral suspension [Magnesium hydroxide] PRN 30ml By Mouth Daily as needed for constipation one time daily if no BM, on day 4 of no BM (PRN refer to instructions) For Constipation 30 mL 2023 Active 2023 30858 64362 6 Daily as needed By Mouth False Oxycodone 5 mg tablet [generic] 01/29 Inactiv e 2023 62475 00320 1 Oxycodone 5 mg tablet [generic] 5mg By Mouth Every 4 hours as needed for severe pain for pain rate 7-10. For right pubis fracture 5mg 01/31 Inactiv e 2023 92121 29635 1 Every 4 hours as needed By Mouth False Cymbalta 30 mg capsule,del ayed release 30 mg By Mouth Once daily For Depression 30 mg 02/04 Inactiv e 2023 76263 99079 0 Once daily By Mouth False Acetaminoph en 500 mg tablet [generic] 1000 mg By Mouth Twice daily not to exceed 3gm APAP in 24 hours For Pain 1000 mg 2023 Active 2023 15741 35377 8 Twice daily By Mouth False Healthshake 118 ml BID 118 ml By Mouth Twice daily Healthshake 118 ml BID For MNA of 7 - malnourished - please record total ml consumed 118 ml 2023 Active 2023 Twice daily By Mouth False Oxycodone 5 mg tablet [generic] 01/31 Inactiv e 2023 16008 22604 1 Oxycodone 5 mg tablet [generic] 5mg By Mouth Every 4 hours as needed for severe pain for pain rate 7-10. For right pubis fracture 5mg 02/01 Inactiv e 2023 66637 46010 1 Every 4 hours as needed By Mouth False Oxycodone 5 mg tablet [generic] 5mg By Mouth Every 4 hours as needed for severe pain 7-10 For right pubis fx 5mg 2023 Active 2023 05479 65535 1 Every 4 hours as needed By Mouth False Cymbalta 60 mg capsule,del ayed release 60mg Once daily depression 60mg 2023 Active 2023 26790 69332 0 Once daily By Mouth False Enoxaparin 40 mg/0.4 mL subcutaneou s syringe [generic] 20mg Subcutaneous Once daily For anticoag 20mg 2023 Active 2023 01473 92067 0 Once daily Subcut aneous False Problems [...] Temperature SpO2 Blood Sugar Pulse Respirations 210 40751 7 78.00 mm[Hg] - Lying Down 186.00 mm[Hg] - Lying Down 109.80 NI 97.90 Forehead Scan 91.00 % 92.00/ min 18.00/min 210 46937 1 74.00 mm[Hg] - Lying Down 147.00 mm[Hg] - Lying Down 85.00/ min 211 48329 2 72.00 mm[Hg] - Sitting 138.00 mm[Hg] - Sitting 98.40 Tympanic 86.00/ min 18.00/min 211 15832 2 59.00 mm[Hg] - Sitting 117.00 mm[Hg] - Sitting 98.20 Tympanic 99.00 % 81.00/ min 18.00/min 211 23515 5 69.00 mm[Hg] - Sitting 145.00 mm[Hg] - Sitting 211 50387 9 69.00 mm[Hg] - Sitting 145.00 mm[Hg] - Sitting 211 61571 5 69.00 mm[Hg] - Sitting 145.00 mm[Hg] - Sitting 211 77834 6 69.00 mm[Hg] - Sitting 212 45072 7 59.00 mm[Hg] - Sitting 117.00 mm[Hg] - Sitting 98.20 Tympanic 81.00/ min 18.00/min 212 71858 9 97.80 Tympanic 212 89978 6 55.00 mm[Hg] - Sitting 109.00 mm[Hg] - Sitting 97.30 Tympanic 94.00 % 75.00/ min 18.00/min 70215 212 20702 5 68.00 mm[Hg] - Sitting 128.00 mm[Hg] - Sitting 97.80 Tympanic 80.00/ min 18.00/min 94156 212 85023 4 97.50 Tympanic 21396 212 02823 9 13641 212 83877 6 71.00 mm[Hg] - Sitting 117.00 mm[Hg] - Sitting 93596 213 98851 0 60.00 mm[Hg] - Sitting 116.00 mm[Hg] - Sitting 98.40 Forehead Scan 94.00 % 72.00/ min 16.00/min 69891 213 68130 7 70.00 mm[Hg] - Sitting 118.00 mm[Hg] - Sitting 98.00 Tympanic 82.00/ min 18.00/min 28269 213 57741 3 97.90 Tympanic 89139 213 58584 5 73.00 mm[Hg] - Lying Down 127.00 mm[Hg] - Lying Down 64700 213 54403 3 86810 214 38426 1 62.00 mm[Hg] - Sitting 127.00 mm[Hg] - Sitting 97.80 Tympanic 94.00 % 72.00/ min 16.00/min 65923 214 65138 4 59.00 mm[Hg] - Lying Down 113.00 mm[Hg] - Lying Down 13033 215 15729 0 56.00 mm[Hg] - Sitting 101.00 mm[Hg] - Sitting 97.80 Tympanic 95.00 % 71.00/ min 16.00/min 45056 215 45235 5 62 NI 29095 215 34108 8 57.00 mm[Hg] - Lying Down 113.00 mm[Hg] - Lying Down 51376 216 50552 3 71.00 mm[Hg] - Sitting 161.00 mm[Hg] - Sitting 98.10 Tympanic 93.00 % 81.00/ min 16.00/min 21889 216 81448 1 72.00 mm[Hg] - Sitting 115.00 mm[Hg] - Sitting 00376 217 23699 2 28492 217 49959 4 62.00 mm[Hg] - Sitting 112.00 mm[Hg] - Sitting 15926 217 86526 3 57.00 mm[Hg] - Sitting 114.00 mm[Hg] - Sitting 98.30 Tympanic 98.00 % 78.00/ min 20.00/min 58701 217 16952 4 62.00 mm[Hg] - Lying Down 111.00 mm[Hg] - Lying Down 64072 218 67254 0 70.00 mm[Hg] - Sitting 158.00 mm[Hg] - Sitting 97.60 Tympanic 97.00 % 68.00/ min 18.00/min 97260 218 91573 5 65.00 mm[Hg] - Lying Down 113.00 mm[Hg] - Lying Down 69075 219 91127 1 67.00 mm[Hg] - Sitting 112.00 mm[Hg] - Sitting
--- OUTSIDE RECORDS SUMMARY | 2024-04-10 03:18 | External Medical Summary | Continuity Of Care Document ---
Author Name Unknown Address [address] [address] Organization [facility] () Care Team Providers Care Etl Software Engineer Name Role Phone DO Alonso Amy Primary Care Provider [phone] Allergies Allergy Reaction Start Date End Date [...] 3 0.1 mL 01/29 Inactiv e 2023 79657 29380 0 1 time Intrad ermal False Tubersol 5 tub. unit/0.1 mL intradermal injection solution [Tuberculin PPD] 0.1mL Intradermal 1 time For PPD 2nd Step Give 2nd Step PPD Day 1 and Read results Day 3 (schedule 7 days after 1st READ) 0.1mL 02/07 Active 2023 80681 47672 0 1 time Intrad ermal False Oxycodone 5 mg tablet [generic] 5mg By Mouth Every 4 hours as needed for severe pain for pain rate 7-10. For right pubis fracture 5mg 01/27 Inactiv e 2023 14256 71006 1 Every 4 hours as needed By Mouth False OXYCODONE 5 MG TABLET [GENERIC]IM MEDIATE RELEASE 2.5mg By Mouth Every 4 hours as needed tablet po for moderate pain, pain rate 4-6 on pain scale 1-10. For pain 2.5mg 01/27 Inactiv e 2023 Every 4 hours as needed By Mouth False Oxycodone 5 mg tablet [generic] 01/27 Inactiv e 2023 58425 77054 1 Oxycodone 5 mg tablet [generic] 5mg By Mouth Every 4 hours as needed for severe pain for pain rate 7-10. For right pubis fracture 5mg 01/29 Inactiv e 2023 30162 98180 1 Every 4 hours as needed By [...] For Muscle spasms 175mg 2023 Active 2023 66486 95365 1 Every 6 hours as needed By Mouth False Cephalexin 500 mg capsule [generic] 500mg By Mouth Every 8 hours For UTI 500mg 01/30 Inactiv e 2023 40399 00186 1 Every 8 hours By Mouth False Aspirin 81 mg chewable tablet [generic] 81 mg By Mouth Once daily For AAA 81 mg 2023 Active 2023 59436 76257 6 Once daily By Mouth False Colace 100 mg capsule 100mg By Mouth Twice daily For constipation 100mg 2023 Active 2023 62195 09461 1 Twice daily By Mouth False Enoxaparin 300 mg/3 mL subcutaneou s solution [generic] 20mg Subcutaneous Once daily For anticoag. 20mg 02/06 Inactiv e 2023 13338 96266 1 Once daily Subcut aneous False Losartan 50 mg tablet [generic] 50 By Mouth Once daily For HTN 50 2023 Active 2023 53726 82197 9 Once daily By Mouth False Miralax 17 gram/dose oral powder 17 gram By Mouth Once daily For contispation 17 gram 2023 Active 2023 00566 42829 0 Once daily By Mouth False Senna 8.6 mg tablet 2 tabs By Mouth Once daily For constipation 2 tabs 2023 Active 2023 74054 72793 1 Once daily By Mouth False Simvastatin 20 mg tablet [generic] 20 mg By Mouth Once daily For Hyperlipidemi a 20 mg 2023 Active 2023 48903 73496 0 Once daily By Mouth False Spiriva with HandiHaler 18 mcg and inhalation capsules 1 capsule Inhalation Once daily For COPD 1 capsule 2023 Active 2023 25601 13001 1 Once daily Inhala tion False Ventolin HFA 90 mcg/actuati on aerosol inhaler 2 puff Inhalation Every 4 hours as needed For COPD 2 puff 2023 Active 2023 54169 84339 0 Every 4 hours as needed Inhala tion False ProSource No Carb 15 gram-60 kcal/30 mL oral liquid 30ml By Mouth Twice daily For Protien supplement 30ml 01/30 Inactiv e 2023 60362 15063 5 Twice daily By Mouth False Albuterol sulfate 2.5 mg/3 mL (0.083 %) solution for nebulizatio n [generic] 3 ml Inhalation Every 6 hours as needed For wheezing 3 ml 2023 Active 2023 19790 63522 3 Every 6 hours as needed Inhala tion False Acetaminoph en 325 mg tablet [generic] 650 mg By Mouth Every 6 hours For Mild Pain 650 mg 01/29 Inactiv e 2023 91938 48246 0 Every 6 hours By Mouth False Tylenol 325 mg tablet 2 tabs By Mouth Every 4 hours as needed For Pain DO NOT EXCEED 3000 MG APAP/24 Hours 2 tabs 2023 Active 2023 19469 89922 0 Every 4 hours as needed By Mouth False Tylenol 325 mg tablet 2 tabs By Mouth Every 4 hours as needed For Fever >100 DO NOT EXCEED 3000 MG APAP/24 Hours 2 tabs 2023 Active 2023 41686 40100 0 Every 4 hours as needed By Mouth False Dulcolax (bisacodyl) 10 mg rectal suppository One Suppository per rectum PRN if Milk of Magnisia ineffective. Give on day 5 of no BM 1 sup 2023 Active 2023 01861 71501 1 Daily as needed Rectal False Fleet Enema 19 gram-7 gram/118 mL Administer per rectum PRN one time if dulcolax suppository not effective. Give on day 6 of no BM 1 2023 Active 2023 68944 80382 6 Daily as needed Rectal False Milk of Magnesia 400 mg/5 mL oral suspension [Magnesium hydroxide] PRN 30ml By Mouth Daily as needed for constipation one time daily if no BM, on day 4 of no BM (PRN refer to instructions) For Constipation 30 mL 2023 Active 2023 36432 67128 6 Daily as needed By Mouth False Oxycodone 5 mg tablet [generic] 01/29 Inactiv e 2023 37161 19747 1 Oxycodone 5 mg tablet [generic] 5mg By Mouth Every 4 hours as needed for severe pain for pain rate 7-10. For right pubis fracture 5mg 01/31 Inactiv e 2023 28998 44376 1 Every 4 hours as needed By Mouth False Cymbalta 30 mg capsule,del ayed release 30 mg By Mouth Once daily For Depression 30 mg 02/04 Inactiv e 2023 29630 37316 0 Once daily By Mouth False Acetaminoph en 500 mg tablet [generic] 1000 mg By Mouth Twice daily not to exceed 3gm APAP in 24 hours For Pain 1000 mg 2023 Active 2023 20766 02674 8 Twice daily By Mouth False Healthshake 118 ml BID 118 ml By Mouth Twice daily Healthshake 118 ml BID For MNA of 7 - malnourished - please record total ml consumed 118 ml 2023 Active 2023 Twice daily By Mouth False Oxycodone 5 mg tablet [generic] 01/31 Inactiv e 2023 71842 52615 1 Oxycodone 5 mg tablet [generic] 5mg By Mouth Every 4 hours as needed for severe pain for pain rate 7-10. For right pubis fracture 5mg 02/01 Inactiv e 2023 66991 96212 1 Every 4 hours as needed By Mouth False Oxycodone 5 mg tablet [generic] 5mg By Mouth Every 4 hours as needed for severe pain 7-10 For right pubis fx 5mg 2023 Active 2023 48660 04416 1 Every 4 hours as needed By Mouth False Cymbalta 60 mg capsule,del ayed release 60mg Once daily depression 60mg 2023 Active 2023 11936 79662 0 Once daily By Mouth False Enoxaparin 40 mg/0.4 mL subcutaneou s syringe [generic] 20mg Subcutaneous Once daily For anticoag 20mg 2023 Active 2023 43520 74920 0 Once daily Subcut aneous False Problems [...] Temperature SpO2 Blood Sugar Pulse Respirations 210 72053 7 78.00 mm[Hg] - Lying Down 186.00 mm[Hg] - Lying Down 109.80 NI 97.90 Forehead Scan 91.00 % 92.00/ min 18.00/min 210 45814 1 74.00 mm[Hg] - Lying Down 147.00 mm[Hg] - Lying Down 85.00/ min 211 15844 2 72.00 mm[Hg] - Sitting 138.00 mm[Hg] - Sitting 98.40 Tympanic 86.00/ min 18.00/min 211 65084 2 59.00 mm[Hg] - Sitting 117.00 mm[Hg] - Sitting 98.20 Tympanic 99.00 % 81.00/ min 18.00/min 211 26209 5 69.00 mm[Hg] - Sitting 145.00 mm[Hg] - Sitting 211 95834 9 69.00 mm[Hg] - Sitting 145.00 mm[Hg] - Sitting 211 90940 5 69.00 mm[Hg] - Sitting 145.00 mm[Hg] - Sitting 211 87793 6 69.00 mm[Hg] - Sitting 212 29728 7 59.00 mm[Hg] - Sitting 117.00 mm[Hg] - Sitting 98.20 Tympanic 81.00/ min 18.00/min 212 23293 9 97.80 Tympanic 212 49200 6 55.00 mm[Hg] - Sitting 109.00 mm[Hg] - Sitting 97.30 Tympanic 94.00 % 75.00/ min 18.00/min 29233 212 28427 5 68.00 mm[Hg] - Sitting 128.00 mm[Hg] - Sitting 97.80 Tympanic 80.00/ min 18.00/min 57278 212 29336 4 97.50 Tympanic 93924 212 20484 9 05718 212 11132 6 71.00 mm[Hg] - Sitting 117.00 mm[Hg] - Sitting 20213 213 63118 0 60.00 mm[Hg] - Sitting 116.00 mm[Hg] - Sitting 98.40 Forehead Scan 94.00 % 72.00/ min 16.00/min 50896 213 74064 7 70.00 mm[Hg] - Sitting 118.00 mm[Hg] - Sitting 98.00 Tympanic 82.00/ min 18.00/min 53657 213 43268 3 97.90 Tympanic 92221 213 65617 5 73.00 mm[Hg] - Lying Down 127.00 mm[Hg] - Lying Down 88859 213 42953 3 91843 214 44948 1 62.00 mm[Hg] - Sitting 127.00 mm[Hg] - Sitting 97.80 Tympanic 94.00 % 72.00/ min 16.00/min 35761 214 71496 4 59.00 mm[Hg] - Lying Down 113.00 mm[Hg] - Lying Down 20434 215 60877 0 56.00 mm[Hg] - Sitting 101.00 mm[Hg] - Sitting 97.80 Tympanic 95.00 % 71.00/ min 16.00/min 24346 215 67977 5 62 NI 75153 215 72087 8 57.00 mm[Hg] - Lying Down 113.00 mm[Hg] - Lying Down 39381 216 34181 3 71.00 mm[Hg] - Sitting 161.00 mm[Hg] - Sitting 98.10 Tympanic 93.00 % 81.00/ min 16.00/min 13659 216 89676 1 72.00 mm[Hg] - Sitting 115.00 mm[Hg] - Sitting 87087 217 21358 2 25552 217 59217 4 62.00 mm[Hg] - Sitting 112.00 mm[Hg] - Sitting 13999 217 60951 3 57.00 mm[Hg] - Sitting 114.00 mm[Hg] - Sitting 98.30 Tympanic 98.00 % 78.00/ min 20.00/min 36542 217 09733 4 62.00 mm[Hg] - Lying Down 111.00 mm[Hg] - Lying Down 30172 218 56149 0 70.00 mm[Hg] - Sitting 158.00 mm[Hg] - Sitting 97.60 Tympanic 97.00 % 68.00/ min 18.00/min 33109 218 40398 5 65.00 mm[Hg] - Lying Down 113.00 mm[Hg] - Lying Down 26546 219 45385 1 67.00 mm[Hg] - Sitting 112.00 mm[Hg] - Sitting 41078 220 77335 0 82.00 mm[Hg] - Sitting 160.00 mm[Hg] - Sitting 97.90 Forehead Scan 95.00 % 87.00/ min 16.00/min 83167 220 10410 7 69.00 mm[Hg] - Sitting 119.00 mm[Hg] - Sitting
--- OUTSIDE RECORDS SUMMARY | 2024-04-10 03:18 | External Medical Summary | Continuity Of Care Document ---
Author Name Unknown Address [address] [address] Organization [facility] () Care Team Providers Care Spray Worker Name Role Phone DO Alonso Amy Primary Care Provider [phone] Allergies Allergy Reaction Start Date End Date [...] 3 0.1 mL 01/29 Inactiv e 2023 56249 28794 0 1 time Intrad ermal False Tubersol 5 tub. unit/0.1 mL intradermal injection solution [Tuberculin PPD] 0.1mL Intradermal 1 time For PPD 2nd Step Give 2nd Step PPD Day 1 and Read results Day 3 (schedule 7 days after 1st READ) 0.1mL 02/07 Active 2023 38066 89830 0 1 time Intrad ermal False Oxycodone 5 mg tablet [generic] 5mg By Mouth Every 4 hours as needed for severe pain for pain rate 7-10. For right pubis fracture 5mg 01/27 Inactiv e 2023 77955 36332 1 Every 4 hours as needed By Mouth False OXYCODONE 5 MG TABLET [GENERIC]IM MEDIATE RELEASE 2.5mg By Mouth Every 4 hours as needed tablet po for moderate pain, pain rate 4-6 on pain scale 1-10. For pain 2.5mg 01/27 Inactiv e 2023 Every 4 hours as needed By Mouth False Oxycodone 5 mg tablet [generic] 01/27 Inactiv e 2023 54913 16144 1 Oxycodone 5 mg tablet [generic] 5mg By Mouth Every 4 hours as needed for severe pain for pain rate 7-10. For right pubis fracture 5mg 01/29 Inactiv e 2023 95731 97835 1 Every 4 hours as needed By [...] For Muscle spasms 175mg 2023 Active 2023 66900 73850 1 Every 6 hours as needed By Mouth False Cephalexin 500 mg capsule [generic] 500mg By Mouth Every 8 hours For UTI 500mg 01/30 Inactiv e 2023 93157 60920 1 Every 8 hours By Mouth False Aspirin 81 mg chewable tablet [generic] 81 mg By Mouth Once daily For AAA 81 mg 2023 Active 2023 18110 40014 6 Once daily By Mouth False Colace 100 mg capsule 100mg By Mouth Twice daily For constipation 100mg 2023 Active 2023 23376 09569 1 Twice daily By Mouth False Enoxaparin 300 mg/3 mL subcutaneou s solution [generic] 20mg Subcutaneous Once daily For anticoag. 20mg 02/06 Inactiv e 2023 15395 30970 1 Once daily Subcut aneous False Losartan 50 mg tablet [generic] 50 By Mouth Once daily For HTN 50 2023 Active 2023 30022 06396 9 Once daily By Mouth False Miralax 17 gram/dose oral powder 17 gram By Mouth Once daily For contispation 17 gram 2023 Active 2023 81604 92496 0 Once daily By Mouth False Senna 8.6 mg tablet 2 tabs By Mouth Once daily For constipation 2 tabs 2023 Active 2023 17641 71307 1 Once daily By Mouth False Simvastatin 20 mg tablet [generic] 20 mg By Mouth Once daily For Hyperlipidemi a 20 mg 2023 Active 2023 50088 25885 0 Once daily By Mouth False Spiriva with HandiHaler 18 mcg and inhalation capsules 1 capsule Inhalation Once daily For COPD 1 capsule 2023 Active 2023 94299 00991 1 Once daily Inhala tion False Ventolin HFA 90 mcg/actuati on aerosol inhaler 2 puff Inhalation Every 4 hours as needed For COPD 2 puff 2023 Active 2023 29358 91269 0 Every 4 hours as needed Inhala tion False ProSource No Carb 15 gram-60 kcal/30 mL oral liquid 30ml By Mouth Twice daily For Protien supplement 30ml 01/30 Inactiv e 2023 33443 58169 5 Twice daily By Mouth False Albuterol sulfate 2.5 mg/3 mL (0.083 %) solution for nebulizatio n [generic] 3 ml Inhalation Every 6 hours as needed For wheezing 3 ml 2023 Active 2023 23524 09057 3 Every 6 hours as needed Inhala tion False Acetaminoph en 325 mg tablet [generic] 650 mg By Mouth Every 6 hours For Mild Pain 650 mg 01/29 Inactiv e 2023 38212 22848 0 Every 6 hours By Mouth False Tylenol 325 mg tablet 2 tabs By Mouth Every 4 hours as needed For Pain DO NOT EXCEED 3000 MG APAP/24 Hours 2 tabs 2023 Active 2023 75119 34667 0 Every 4 hours as needed By Mouth False Tylenol 325 mg tablet 2 tabs By Mouth Every 4 hours as needed For Fever >100 DO NOT EXCEED 3000 MG APAP/24 Hours 2 tabs 2023 Active 2023 48636 67784 0 Every 4 hours as needed By Mouth False Dulcolax (bisacodyl) 10 mg rectal suppository One Suppository per rectum PRN if Milk of Magnisia ineffective. Give on day 5 of no BM 1 sup 2023 Active 2023 59717 67566 1 Daily as needed Rectal False Fleet Enema 19 gram-7 gram/118 mL Administer per rectum PRN one time if dulcolax suppository not effective. Give on day 6 of no BM 1 2023 Active 2023 19079 67579 6 Daily as needed Rectal False Milk of Magnesia 400 mg/5 mL oral suspension [Magnesium hydroxide] PRN 30ml By Mouth Daily as needed for constipation one time daily if no BM, on day 4 of no BM (PRN refer to instructions) For Constipation 30 mL 2023 Active 2023 41493 80441 6 Daily as needed By Mouth False Oxycodone 5 mg tablet [generic] 01/29 Inactiv e 2023 58516 29784 1 Oxycodone 5 mg tablet [generic] 5mg By Mouth Every 4 hours as needed for severe pain for pain rate 7-10. For right pubis fracture 5mg 01/31 Inactiv e 2023 76374 87780 1 Every 4 hours as needed By Mouth False Cymbalta 30 mg capsule,del ayed release 30 mg By Mouth Once daily For Depression 30 mg 02/04 Inactiv e 2023 38309 66276 0 Once daily By Mouth False Acetaminoph en 500 mg tablet [generic] 1000 mg By Mouth Twice daily not to exceed 3gm APAP in 24 hours For Pain 1000 mg 2023 Active 2023 03055 23318 8 Twice daily By Mouth False Healthshake 118 ml BID 118 ml By Mouth Twice daily Healthshake 118 ml BID For MNA of 7 - malnourished - please record total ml consumed 118 ml 2023 Active 2023 Twice daily By Mouth False Oxycodone 5 mg tablet [generic] 01/31 Inactiv e 2023 74182 06156 1 Oxycodone 5 mg tablet [generic] 5mg By Mouth Every 4 hours as needed for severe pain for pain rate 7-10. For right pubis fracture 5mg 02/01 Inactiv e 2023 38197 93543 1 Every 4 hours as needed By Mouth False Oxycodone 5 mg tablet [generic] 5mg By Mouth Every 4 hours as needed for severe pain 7-10 For right pubis fx 5mg 2023 Active 2023 94876 14404 1 Every 4 hours as needed By Mouth False Cymbalta 60 mg capsule,del ayed release 60mg Once daily depression 60mg 2023 Active 2023 68145 18085 0 Once daily By Mouth False Enoxaparin 40 mg/0.4 mL subcutaneou s syringe [generic] 20mg Subcutaneous Once daily For anticoag 20mg 2023 Active 2023 99312 13696 0 Once daily Subcut aneous False Problems [...] Temperature SpO2 Blood Sugar Pulse Respirations 210 42382 7 78.00 mm[Hg] - Lying Down 186.00 mm[Hg] - Lying Down 109.80 NI 97.90 Forehead Scan 91.00 % 92.00/ min 18.00/min 210 17548 1 74.00 mm[Hg] - Lying Down 147.00 mm[Hg] - Lying Down 85.00/ min 211 35142 2 72.00 mm[Hg] - Sitting 138.00 mm[Hg] - Sitting 98.40 Tympanic 86.00/ min 18.00/min 211 96496 2 59.00 mm[Hg] - Sitting 117.00 mm[Hg] - Sitting 98.20 Tympanic 99.00 % 81.00/ min 18.00/min 211 65887 5 69.00 mm[Hg] - Sitting 145.00 mm[Hg] - Sitting 211 86906 9 69.00 mm[Hg] - Sitting 145.00 mm[Hg] - Sitting 211 48765 5 69.00 mm[Hg] - Sitting 145.00 mm[Hg] - Sitting 211 01314 6 69.00 mm[Hg] - Sitting 212 46189 7 59.00 mm[Hg] - Sitting 117.00 mm[Hg] - Sitting 98.20 Tympanic 81.00/ min 18.00/min 212 50486 9 97.80 Tympanic 212 07565 6 55.00 mm[Hg] - Sitting 109.00 mm[Hg] - Sitting 97.30 Tympanic 94.00 % 75.00/ min 18.00/min 01007 212 31357 5 68.00 mm[Hg] - Sitting 128.00 mm[Hg] - Sitting 97.80 Tympanic 80.00/ min 18.00/min 07502 212 33343 4 97.50 Tympanic 93505 212 21941 9 82686 212 40695 6 71.00 mm[Hg] - Sitting 117.00 mm[Hg] - Sitting 55156 213 38231 0 60.00 mm[Hg] - Sitting 116.00 mm[Hg] - Sitting 98.40 Forehead Scan 94.00 % 72.00/ min 16.00/min 25449 213 91418 7 70.00 mm[Hg] - Sitting 118.00 mm[Hg] - Sitting 98.00 Tympanic 82.00/ min 18.00/min 57780 213 73703 3 97.90 Tympanic 53587 213 23926 5 73.00 mm[Hg] - Lying Down 127.00 mm[Hg] - Lying Down 97778 213 61525 3 41968 214 63840 1 62.00 mm[Hg] - Sitting 127.00 mm[Hg] - Sitting 97.80 Tympanic 94.00 % 72.00/ min 16.00/min 29117 214 13906 4 59.00 mm[Hg] - Lying Down 113.00 mm[Hg] - Lying Down 07403 215 39563 0 56.00 mm[Hg] - Sitting 101.00 mm[Hg] - Sitting 97.80 Tympanic 95.00 % 71.00/ min 16.00/min 41096 215 26508 5 62 NI [address]002 215 93906 8 57.00 mm[Hg] - Lying Down 113.00 mm[Hg] - Lying Down 90131 216 94025 3 71.00 mm[Hg] - Sitting 161.00 mm[Hg] - Sitting 98.10 Tympanic 93.00 % 81.00/ min 16.00/min 39417 216 01855 1 72.00 mm[Hg] - Sitting 115.00 mm[Hg] - Sitting 72641 217 03230 2 99851 217 93243 4 62.00 mm[Hg] - Sitting 112.00 mm[Hg] - Sitting 45160 217 37245 3 57.00 mm[Hg] - Sitting 114.00 mm[Hg] - Sitting 98.30 Tympanic 98.00 % 78.00/ min 20.00/min 11765 217 69310 4 62.00 mm[Hg] - Lying Down 111.00 mm[Hg] - Lying Down 35039 218 39205 0 70.00 mm[Hg] - Sitting 158.00 mm[Hg] - Sitting 97.60 Tympanic 97.00 % 68.00/ min 18.00/min 90942 218 20389 5 65.00 mm[Hg] - Lying Down 113.00 mm[Hg] - Lying Down 89320 219 53019 1 67.00 mm[Hg] - Sitting 112.00 mm[Hg] - Sitting
--- OUTSIDE RECORDS SUMMARY | 2024-04-10 03:18 | External Medical Summary | Continuity Of Care Document ---
Author Name Unknown Address [address] [address] [facility] Care Team Providers Care Geographic Area Intelligence Officer Name Role Phone DO Alonso Amy Primary Care Provider [phone] Allergies Allergy Reaction Start Date End Date [...] 3 0.1 mL 01/29 Inactiv e 2023 96317 96382 0 1 time Intrad ermal False Tubersol 5 tub. unit/0.1 mL intradermal injection solution [Tuberculin PPD] 0.1mL Intradermal 1 time For PPD 2nd Step Give 2nd Step PPD Day 1 and Read results Day 3 (schedule 7 days after 1st READ) 0.1mL 02/07 Inactiv e 2023 12570 44589 0 1 time Intrad ermal False Oxycodone 5 mg tablet [generic] 5mg By Mouth Every 4 hours as needed for severe pain for pain rate 7-10. For right pubis fracture 5mg 01/27 Inactiv e 2023 37893 89233 1 Every 4 hours as needed By Mouth False OXYCODONE 5 MG TABLET [GENERIC]IM MEDIATE RELEASE 2.5mg By Mouth Every 4 hours as needed tablet po for moderate pain, pain rate 4-6 on pain scale 1-10. For pain 2.5mg 01/27 Inactiv e 2023 Every 4 hours as needed By Mouth False Oxycodone 5 mg tablet [generic] 01/27 Inactiv e 2023 55640 38683 1 Oxycodone 5 mg tablet [generic] 5mg By Mouth Every 4 hours as needed for severe pain for pain rate 7-10. For right pubis fracture 5mg 01/29 Inactiv e 2023 22007 97603 1 Every 4 hours as needed By [...] For Muscle spasms 175mg 2023 Active 2023 73432 75810 1 Every 6 hours as needed By Mouth False Cephalexin 500 mg capsule [generic] 500mg By Mouth Every 8 hours For UTI 500mg 01/30 Inactiv e 2023 27133 74828 1 Every 8 hours By Mouth False Aspirin 81 mg chewable tablet [generic] 81 mg By Mouth Once daily For AAA 81 mg 2023 Active 2023 48297 65787 6 Once daily By Mouth False Colace 100 mg capsule 100mg By Mouth Twice daily For constipation 100mg 2023 Active 2023 94146 75781 1 Twice daily By Mouth False Enoxaparin 300 mg/3 mL subcutaneou s solution [generic] 20mg Subcutaneous Once daily For anticoag. 20mg 02/06 Inactiv e 2023 68576 43538 1 Once daily Subcut aneous False Losartan 50 mg tablet [generic] 50 By Mouth Once daily For HTN 50 2023 Active 2023 05464 60976 9 Once daily By Mouth False Miralax 17 gram/dose oral powder 17 gram By Mouth Once daily For contispation 17 gram 2023 Active 2023 51844 57607 0 Once daily By Mouth False Senna 8.6 mg tablet 2 tabs By Mouth Once daily For constipation 2 tabs 2023 Active 2023 19034 20393 1 Once daily By Mouth False Simvastatin 20 mg tablet [generic] 20 mg By Mouth Once daily For Hyperlipidemi a 20 mg 2023 Active 2023 07321 20657 0 Once daily By Mouth False Spiriva with HandiHaler 18 mcg and inhalation capsules 1 capsule Inhalation Once daily For COPD 1 capsule 2023 Active 2023 96048 14128 1 Once daily Inhala tion False Ventolin HFA 90 mcg/actuati on aerosol inhaler 2 puff Inhalation Every 4 hours as needed For COPD 2 puff 2023 Active 2023 14719 77002 0 Every 4 hours as needed Inhala tion False ProSource No Carb 15 gram-60 kcal/30 mL oral liquid 30ml By Mouth Twice daily For Protien supplement 30ml 01/30 Inactiv e 2023 53979 07213 5 Twice daily By Mouth False Albuterol sulfate 2.5 mg/3 mL (0.083 %) solution for nebulizatio n [generic] 3 ml Inhalation Every 6 hours as needed For wheezing 3 ml 2023 Active 2023 67579 97958 3 Every 6 hours as needed Inhala tion False Acetaminoph en 325 mg tablet [generic] 650 mg By Mouth Every 6 hours For Mild Pain 650 mg 01/29 Inactiv e 2023 88860 98168 0 Every 6 hours By Mouth False Tylenol 325 mg tablet 2 tabs By Mouth Every 4 hours as needed For Pain DO NOT EXCEED 3000 MG APAP/24 Hours 2 tabs 2023 Active 2023 41360 16139 0 Every 4 hours as needed By Mouth False Tylenol 325 mg tablet 2 tabs By Mouth Every 4 hours as needed For Fever >100 DO NOT EXCEED 3000 MG APAP/24 Hours 2 tabs 2023 Active 2023 52151 84789 0 Every 4 hours as needed By Mouth False Dulcolax (bisacodyl) 10 mg rectal suppository One Suppository per rectum PRN if Milk of Magnisia ineffective. Give on day 5 of no BM 1 sup 2023 Active 2023 07066 67350 1 Daily as needed Rectal False Fleet Enema 19 gram-7 gram/118 mL Administer per rectum PRN one time if dulcolax suppository not effective. Give on day 6 of no BM 1 2023 Active 2023 91725 18480 6 Daily as needed Rectal False Milk of Magnesia 400 mg/5 mL oral suspension [Magnesium hydroxide] PRN 30ml By Mouth Daily as needed for constipation one time daily if no BM, on day 4 of no BM (PRN refer to instructions) For Constipation 30 mL 2023 Active 2023 26316 32758 6 Daily as needed By Mouth False Oxycodone 5 mg tablet [generic] 01/29 Inactiv e 2023 85090 63123 1 Oxycodone 5 mg tablet [generic] 5mg By Mouth Every 4 hours as needed for severe pain for pain rate 7-10. For right pubis fracture 5mg 01/31 Inactiv e 2023 46095 47619 1 Every 4 hours as needed By Mouth False Cymbalta 30 mg capsule,del ayed release 30 mg By Mouth Once daily For Depression 30 mg 02/04 Inactiv e 2023 89263 54615 0 Once daily By Mouth False Acetaminoph en 500 mg tablet [generic] 1000 mg By Mouth Twice daily not to exceed 3gm APAP in 24 hours For Pain 1000 mg 2023 Active 2023 01525 78702 8 Twice daily By Mouth False Healthshake 118 ml BID 118 ml By Mouth Twice daily Healthshake 118 ml BID For MNA of 7 - malnourished - please record total ml consumed 118 ml 2023 Active 2023 Twice daily By Mouth False Oxycodone 5 mg tablet [generic] 01/31 Inactiv e 2023 88022 79717 1 Oxycodone 5 mg tablet [generic] 5mg By Mouth Every 4 hours as needed for severe pain for pain rate 7-10. For right pubis fracture 5mg 02/01 Inactiv e 2023 75109 89336 1 Every 4 hours as needed By Mouth False Oxycodone 5 mg tablet [generic] 5mg By Mouth Every 4 hours as needed for severe pain 7-10 For right pubis fx 5mg 2023 Active 2023 57300 12409 1 Every 4 hours as needed By Mouth False Cymbalta 60 mg capsule,del ayed release 60mg Once daily depression 60mg 2023 Active 2023 90552 21545 0 Once daily By Mouth False Enoxaparin 40 mg/0.4 mL subcutaneou s syringe [generic] 20mg Subcutaneous Once daily For anticoag 20mg 2023 Active 2023 80997 19746 0 Once daily Subcut aneous False Problems [...] Temperature SpO2 Blood Sugar Pulse Respirations 210 17160 7 78.00 mm[Hg] - Lying Down 186.00 mm[Hg] - Lying Down 109.80 NI 97.90 Forehead Scan 91.00 % 92.00/ min 18.00/min 210 56818 1 74.00 mm[Hg] - Lying Down 147.00 mm[Hg] - Lying Down 85.00/ min 211 31653 2 72.00 mm[Hg] - Sitting 138.00 mm[Hg] - Sitting 98.40 Tympanic 86.00/ min 18.00/min 211 74589 2 59.00 mm[Hg] - Sitting 117.00 mm[Hg] - Sitting 98.20 Tympanic 99.00 % 81.00/ min 18.00/min 211 15309 5 69.00 mm[Hg] - Sitting 145.00 mm[Hg] - Sitting 211 46131 9 69.00 mm[Hg] - Sitting 145.00 mm[Hg] - Sitting 211 23967 5 69.00 mm[Hg] - Sitting 145.00 mm[Hg] - Sitting 211 95564 6 69.00 mm[Hg] - Sitting 212 75802 7 59.00 mm[Hg] - Sitting 117.00 mm[Hg] - Sitting 98.20 Tympanic 81.00/ min 18.00/min 212 23083 9 97.80 Tympanic 48729 6 55.00 mm[Hg] - Sitting 109.00 mm[Hg] - Sitting 97.30 Tympanic 94.00 % 75.00/ min 18.00/min 69254 212 82824 5 68.00 mm[Hg] - Sitting 128.00 mm[Hg] - Sitting 97.80 Tympanic 80.00/ min 18.00/min 59526 212 27946 4 97.50 Tympanic 88507 212 28944 9 91894 212 41267 6 71.00 mm[Hg] - Sitting 117.00 mm[Hg] - Sitting 80451 213 65845 0 60.00 mm[Hg] - Sitting 116.00 mm[Hg] - Sitting 98.40 Forehead Scan 94.00 % 72.00/ min 16.00/min 62832 213 83332 7 70.00 mm[Hg] - Sitting 118.00 mm[Hg] - Sitting 98.00 Tympanic 82.00/ min 18.00/min 74558 213 58884 3 97.90 Tympanic 64035 213 95180 5 73.00 mm[Hg] - Lying Down 127.00 mm[Hg] - Lying Down 14616 213 22669 3 83819 214 49220 1 62.00 mm[Hg] - Sitting 127.00 mm[Hg] - Sitting 97.80 Tympanic 94.00 % 72.00/ min 16.00/min 80696 214 48531 4 59.00 mm[Hg] - Lying Down 113.00 mm[Hg] - Lying Down 62256 215 37563 0 56.00 mm[Hg] - Sitting 101.00 mm[Hg] - Sitting 97.80 Tympanic 95.00 % 71.00/ min 16.00/min 84536 215 56399 5 62 NI 36258 215 92767 8 57.00 mm[Hg] - Lying Down 113.00 mm[Hg] - Lying Down 83650 216 54936 3 71.00 mm[Hg] - Sitting 161.00 mm[Hg] - Sitting 98.10 Tympanic 93.00 % 81.00/ min 16.00/min 86062 216 88282 1 72.00 mm[Hg] - Sitting 115.00 mm[Hg] - Sitting 93786 217 30449 2 45298 217 70735 4 62.00 mm[Hg] - Sitting 112.00 mm[Hg] - Sitting 78286 217 15431 3 57.00 mm[Hg] - Sitting 114.00 mm[Hg] - Sitting 98.30 Tympanic 98.00 % 78.00/ min 20.00/min 46382 217 52150 4 62.00 mm[Hg] - Lying Down 111.00 mm[Hg] - Lying Down 94140 218 90433 0 70.00 mm[Hg] - Sitting 158.00 mm[Hg] - Sitting 97.60 Tympanic 97.00 % 68.00/ min 18.00/min 43922 218 91634 5 65.00 mm[Hg] - Lying Down 113.00 mm[Hg] - Lying Down 17805 219 02820 1 67.00 mm[Hg] - Sitting 112.00 mm[Hg] - Sitting 19455 220 04665 0 82.00 mm[Hg] - Sitting 160.00 mm[Hg] - Sitting 97.90 Forehead Scan 95.00 % 87.00/ min 16.00/min 47098 220 55867 7 69.00 mm[Hg] - Sitting 119.00 mm[Hg] - Sitting 00250 221 27192 1 82.00 mm[Hg] - Sitting 156.00 mm[Hg] - Sitting 98.20 Tympanic 95.00 % 72.00/ min 18.00/min 71926 221 53530 1 78.00 mm[Hg] - Sitting 148.00 mm[Hg] - Sitting
--- OUTSIDE RECORDS SUMMARY | 2024-04-10 03:18 | External Medical Summary | Continuity Of Care Document ---
Author Name Unknown Address [address] [address] Organization [facility] () Care Team Providers Care Booth Operator Name Role Phone DO Alonso Amy Primary Care Provider [phone] Allergies Allergy Reaction Start Date End Date [...] 3 0.1 mL 01/29 Inactiv e 2023 19321 57869 0 1 time Intrad ermal False Tubersol 5 tub. unit/0.1 mL intradermal injection solution [Tuberculin PPD] 0.1mL Intradermal 1 time For PPD 2nd Step Give 2nd Step PPD Day 1 and Read results Day 3 (schedule 7 days after 1st READ) 0.1mL 02/07 Active 2023 43530 00780 0 1 time Intrad ermal False Oxycodone 5 mg tablet [generic] 5mg By Mouth Every 4 hours as needed for severe pain for pain rate 7-10. For right pubis fracture 5mg 01/27 Inactiv e 2023 30381 40876 1 Every 4 hours as needed By Mouth False OXYCODONE 5 MG TABLET [GENERIC]IM MEDIATE RELEASE 2.5mg By Mouth Every 4 hours as needed tablet po for moderate pain, pain rate 4-6 on pain scale 1-10. For pain 2.5mg 01/27 Inactiv e 2023 Every 4 hours as needed By Mouth False Oxycodone 5 mg tablet [generic] 01/27 Inactiv e 2023 16176 16819 1 Oxycodone 5 mg tablet [generic] 5mg By Mouth Every 4 hours as needed for severe pain for pain rate 7-10. For right pubis fracture 5mg 01/29 Inactiv e 2023 17081 44530 1 Every 4 hours as needed By [...] For Muscle spasms 175mg 2023 Active 2023 84207 31094 1 Every 6 hours as needed By Mouth False Cephalexin 500 mg capsule [generic] 500mg By Mouth Every 8 hours For UTI 500mg 01/30 Inactiv e 2023 00930 81712 1 Every 8 hours By Mouth False Aspirin 81 mg chewable tablet [generic] 81 mg By Mouth Once daily For AAA 81 mg 2023 Active 2023 64443 36013 6 Once daily By Mouth False Colace 100 mg capsule 100mg By Mouth Twice daily For constipation 100mg 2023 Active 2023 95573 77511 1 Twice daily By Mouth False Enoxaparin 300 mg/3 mL subcutaneou s solution [generic] 20mg Subcutaneous Once daily For anticoag. 20mg 2023 Active 2023 37330 09070 1 Once daily Subcut aneous False Losartan 50 mg tablet [generic] 50 By Mouth Once daily For HTN 50 2023 Active 2023 44337 44042 9 Once daily By Mouth False Miralax 17 gram/dose oral powder 17 gram By Mouth Once daily For contispation 17 gram 2023 Active 2023 50300 16617 0 Once daily By Mouth False Senna 8.6 mg tablet 2 tabs By Mouth Once daily For constipation 2 tabs 2023 Active 2023 11420 73590 1 Once daily By Mouth False Simvastatin 20 mg tablet [generic] 20 mg By Mouth Once daily For Hyperlipidemi a 20 mg 2023 Active 2023 04919 31074 0 Once daily By Mouth False Spiriva with HandiHaler 18 mcg and inhalation capsules 1 capsule Inhalation Once daily For COPD 1 capsule 2023 Active 2023 33497 11758 1 Once daily Inhala tion False Ventolin HFA 90 mcg/actuati on aerosol inhaler 2 puff Inhalation Every 4 hours as needed For COPD 2 puff 2023 Active 2023 08480 37774 0 Every 4 hours as needed Inhala tion False ProSource No Carb 15 gram-60 kcal/30 mL oral liquid 30ml By Mouth Twice daily For Protien supplement 30ml 01/30 Inactiv e 2023 35989 59570 5 Twice daily By Mouth False Albuterol sulfate 2.5 mg/3 mL (0.083 %) solution for nebulizatio n [generic] 3 ml Inhalation Every 6 hours as needed For wheezing 3 ml 2023 Active 2023 41546 31450 3 Every 6 hours as needed Inhala tion False Acetaminoph en 325 mg tablet [generic] 650 mg By Mouth Every 6 hours For Mild Pain 650 mg 01/29 Inactiv e 2023 63587 80964 0 Every 6 hours By Mouth False Tylenol 325 mg tablet 2 tabs By Mouth Every 4 hours as needed For Pain DO NOT EXCEED 3000 MG APAP/24 Hours 2 tabs 2023 Active 2023 22304 76922 0 Every 4 hours as needed By Mouth False Tylenol 325 mg tablet 2 tabs By Mouth Every 4 hours as needed For Fever >100 DO NOT EXCEED 3000 MG APAP/24 Hours 2 tabs 2023 Active 2023 33827 65558 0 Every 4 hours as needed By Mouth False Dulcolax (bisacodyl) 10 mg rectal suppository One Suppository per rectum PRN if Milk of Magnisia ineffective. Give on day 5 of no BM 1 sup 2023 Active 2023 08850 01896 1 Daily as needed Rectal False Fleet Enema 19 gram-7 gram/118 mL Administer per rectum PRN one time if dulcolax suppository not effective. Give on day 6 of no BM 1 2023 Active 2023 96244 91389 6 Daily as needed Rectal False Milk of Magnesia 400 mg/5 mL oral suspension [Magnesium hydroxide] PRN 30ml By Mouth Daily as needed for constipation one time daily if no BM, on day 4 of no BM (PRN refer to instructions) For Constipation 30 mL 2023 Active 2023 92746 70866 6 Daily as needed By Mouth False Oxycodone 5 mg tablet [generic] 01/29 Inactiv e 2023 49430 27269 1 Oxycodone 5 mg tablet [generic] 5mg By Mouth Every 4 hours as needed for severe pain for pain rate 7-10. For right pubis fracture 5mg 01/31 Inactiv e 2023 66149 74119 1 Every 4 hours as needed By Mouth False Cymbalta 30 mg capsule,del ayed release 30 mg By Mouth Once daily For Depression 30 mg 02/04 Inactiv e 2023 46242 95745 0 Once daily By Mouth False Acetaminoph en 500 mg tablet [generic] 1000 mg By Mouth Twice daily not to exceed 3gm APAP in 24 hours For Pain 1000 mg 2023 Active 2023 02103 44943 8 Twice daily By Mouth False Healthshake 118 ml BID 118 ml By Mouth Twice daily Healthshake 118 ml BID For MNA of 7 - malnourished - please record total ml consumed 118 ml 2023 Active 2023 Twice daily By Mouth False Oxycodone 5 mg tablet [generic] 01/31 Inactiv e 2023 62228 68649 1 Oxycodone 5 mg tablet [generic] 5mg By Mouth Every 4 hours as needed for severe pain for pain rate 7-10. For right pubis fracture 5mg 02/01 Inactiv e 2023 99993 94662 1 Every 4 hours as needed By Mouth False Oxycodone 5 mg tablet [generic] 5mg By Mouth Every 4 hours as needed for severe pain 7-10 For right pubis fx 5mg 2023 Active 2023 84818 05020 1 Every 4 hours as needed By Mouth False Cymbalta 60 mg capsule,del ayed release 60mg Once daily depression 60mg 2023 Active 2023 32521 67665 0 Once daily By Mouth False Problems Code Description Start [...] Temperature SpO2 Blood Sugar Pulse Respirations 210 30488 7 78.00 mm[Hg] - Lying Down 186.00 mm[Hg] - Lying Down 109.80 NI 97.90 Forehead Scan 91.00 % 92.00/ min 18.00/min 210 33952 1 74.00 mm[Hg] - Lying Down 147.00 mm[Hg] - Lying Down 85.00/ min 211 79834 2 72.00 mm[Hg] - Sitting 138.00 mm[Hg] - Sitting 98.40 Tympanic 86.00/ min 18.00/min 211 71613 2 59.00 mm[Hg] - Sitting 117.00 mm[Hg] - Sitting 98.20 Tympanic 99.00 % 81.00/ min 18.00/min 211 89948 5 69.00 mm[Hg] - Sitting 145.00 mm[Hg] - Sitting 211 05134 9 69.00 mm[Hg] - Sitting 145.00 mm[Hg] - Sitting 211 05327 5 69.00 mm[Hg] - Sitting 145.00 mm[Hg] - Sitting 211 40276 6 69.00 mm[Hg] - Sitting 212 48340 7 59.00 mm[Hg] - Sitting 117.00 mm[Hg] - Sitting 98.20 Tympanic 81.00/ min 18.00/min 212 26876 9 97.80 Tympanic 212 08785 6 55.00 mm[Hg] - Sitting 109.00 mm[Hg] - Sitting 97.30 Tympanic 94.00 % 75.00/ min 18.00/min 212 24153 5 68.00 mm[Hg] - Sitting 128.00 mm[Hg] - Sitting 97.80 Tympanic 80.00/ min 18.00/min 95073 212 12005 4 97.50 Tympanic 17330 212 63102 9 09881 212 33023 6 71.00 mm[Hg] - Sitting 117.00 mm[Hg] - Sitting 73223 213 33754 0 60.00 mm[Hg] - Sitting 116.00 mm[Hg] - Sitting 98.40 Forehead Scan 94.00 % 72.00/ min 16.00/min 39552 213 13100 7 70.00 mm[Hg] - Sitting 118.00 mm[Hg] - Sitting 98.00 Tympanic 82.00/ min 18.00/min 81286 213 55265 3 97.90 Tympanic 93712 213 36477 5 73.00 mm[Hg] - Lying Down 127.00 mm[Hg] - Lying Down 81572 213 06185 3 44335 214 11759 1 62.00 mm[Hg] - Sitting 127.00 mm[Hg] - Sitting 97.80 Tympanic 94.00 % 72.00/ min 16.00/min 02576 214 46754 4 59.00 mm[Hg] - Lying Down 113.00 mm[Hg] - Lying Down 65144 215 44458 0 56.00 mm[Hg] - Sitting 101.00 mm[Hg] - Sitting 97.80 Tympanic 95.00 % 71.00/ min 16.00/min 06310 215 12787 5 62 NI 87836 215 07075 8 57.00 mm[Hg] - Lying Down 113.00 mm[Hg] - Lying Down 92196 216 30140 3 71.00 mm[Hg] - Sitting 161.00 mm[Hg] - Sitting 98.10 Tympanic 93.00 % 81.00/ min 16.00/min 01184 216 81041 1 72.00 mm[Hg] - Sitting 115.00 mm[Hg] - Sitting 13503 217 36122 2 66867 217 35656 4 62.00 mm[Hg] - Sitting 112.00 mm[Hg] - Sitting 42817 217 61033 3 57.00 mm[Hg] - Sitting 114.00 mm[Hg] - Sitting 98.30 Tympanic 98.00 % 78.00/ min 20.00/min 15747 217 65579 4 62.00 mm[Hg] - Lying Down 111.00 mm[Hg] - Lying Down 59759 218 27725 0 70.00 mm[Hg] - Sitting 158.00 mm[Hg] - Sitting 97.60 Tympanic 97.00 % 68.00/ min 18.00/min 218 22993 5 65.00 mm[Hg] - Lying Down 113.00 mm[Hg] - Lying Down 219 36720 1 67.00 mm[Hg] - Sitting 112.00 mm[Hg] - Sitting
--- OUTSIDE RECORDS SUMMARY | 2024-04-10 03:18 | External Medical Summary | Continuity Of Care Document ---
Author Name Unknown Address [address] [address] Organization [facility] () Care Team Providers Care Information Management Specialist Name Role Phone DO Alonso Amy Primary Care Provider [phone] Allergies Allergy Reaction Start Date End Date [...] 3 0.1 mL 01/29 Inactiv e 2023 66543 13678 0 1 time Intrad ermal False Tubersol 5 tub. unit/0.1 mL intradermal injection solution [Tuberculin PPD] 0.1mL Intradermal 1 time For PPD 2nd Step Give 2nd Step PPD Day 1 and Read results Day 3 (schedule 7 days after 1st READ) 0.1mL 02/07 Active 2023 69178 16270 0 1 time Intrad ermal False Oxycodone 5 mg tablet [generic] 5mg By Mouth Every 4 hours as needed for severe pain for pain rate 7-10. For right pubis fracture 5mg 01/27 Inactiv e 2023 89605 23989 1 Every 4 hours as needed By Mouth False OXYCODONE 5 MG TABLET [GENERIC]IM MEDIATE RELEASE 2.5mg By Mouth Every 4 hours as needed tablet po for moderate pain, pain rate 4-6 on pain scale 1-10. For pain 2.5mg 01/27 Inactiv e 2023 Every 4 hours as needed By Mouth False Oxycodone 5 mg tablet [generic] 01/27 Inactiv e 2023 38349 15285 1 Oxycodone 5 mg tablet [generic] 5mg By Mouth Every 4 hours as needed for severe pain for pain rate 7-10. For right pubis fracture 5mg 01/29 Inactiv e 2023 13090 69236 1 Every 4 hours as needed By [...] For Muscle spasms 175mg 2023 Active 2023 83167 60296 1 Every 6 hours as needed By Mouth False Cephalexin 500 mg capsule [generic] 500mg By Mouth Every 8 hours For UTI 500mg 01/30 Inactiv e 2023 51219 38919 1 Every 8 hours By Mouth False Aspirin 81 mg chewable tablet [generic] 81 mg By Mouth Once daily For AAA 81 mg 2023 Active 2023 26261 86123 6 Once daily By Mouth False Colace 100 mg capsule 100mg By Mouth Twice daily For constipation 100mg 2023 Active 2023 47801 48287 1 Twice daily By Mouth False Enoxaparin 300 mg/3 mL subcutaneou s solution [generic] 20mg Subcutaneous Once daily For anticoag. 20mg 2023 Active 2023 88089 07525 1 Once daily Subcut aneous False Losartan 50 mg tablet [generic] 50 By Mouth Once daily For HTN 50 2023 Active 2023 33033 71334 9 Once daily By Mouth False Miralax 17 gram/dose oral powder 17 gram By Mouth Once daily For contispation 17 gram 2023 Active 2023 89606 67524 0 Once daily By Mouth False Senna 8.6 mg tablet 2 tabs By Mouth Once daily For constipation 2 tabs 2023 Active 2023 60707 97496 1 Once daily By Mouth False Simvastatin 20 mg tablet [generic] 20 mg By Mouth Once daily For Hyperlipidemi a 20 mg 2023 Active 2023 54599 43938 0 Once daily By Mouth False Spiriva with HandiHaler 18 mcg and inhalation capsules 1 capsule Inhalation Once daily For COPD 1 capsule 2023 Active 2023 91511 36985 1 Once daily Inhala tion False Ventolin HFA 90 mcg/actuati on aerosol inhaler 2 puff Inhalation Every 4 hours as needed For COPD 2 puff 2023 Active 2023 87121 22602 0 Every 4 hours as needed Inhala tion False ProSource No Carb 15 gram-60 kcal/30 mL oral liquid 30ml By Mouth Twice daily For Protien supplement 30ml 01/30 Inactiv e 2023 47821 23091 5 Twice daily By Mouth False Albuterol sulfate 2.5 mg/3 mL (0.083 %) solution for nebulizatio n [generic] 3 ml Inhalation Every 6 hours as needed For wheezing 3 ml 2023 Active 2023 39474 09544 3 Every 6 hours as needed Inhala tion False Acetaminoph en 325 mg tablet [generic] 650 mg By Mouth Every 6 hours For Mild Pain 650 mg 01/29 Inactiv e 2023 91078 54022 0 Every 6 hours By Mouth False Tylenol 325 mg tablet 2 tabs By Mouth Every 4 hours as needed For Pain DO NOT EXCEED 3000 MG APAP/24 Hours 2 tabs 2023 Active 2023 48816 07567 0 Every 4 hours as needed By Mouth False Tylenol 325 mg tablet 2 tabs By Mouth Every 4 hours as needed For Fever >100 DO NOT EXCEED 3000 MG APAP/24 Hours 2 tabs 2023 Active 2023 92987 77808 0 Every 4 hours as needed By Mouth False Dulcolax (bisacodyl) 10 mg rectal suppository One Suppository per rectum PRN if Milk of Magnisia ineffective. Give on day 5 of no BM 1 sup 2023 Active 2023 07524 50844 1 Daily as needed Rectal False Fleet Enema 19 gram-7 gram/118 mL Administer per rectum PRN one time if dulcolax suppository not effective. Give on day 6 of no BM 1 2023 Active 2023 25976 40520 6 Daily as needed Rectal False Milk of Magnesia 400 mg/5 mL oral suspension [Magnesium hydroxide] PRN 30ml By Mouth Daily as needed for constipation one time daily if no BM, on day 4 of no BM (PRN refer to instructions) For Constipation 30 mL 2023 Active 2023 65410 21786 6 Daily as needed By Mouth False Oxycodone 5 mg tablet [generic] 01/29 Inactiv e 2023 16154 32878 1 Oxycodone 5 mg tablet [generic] 5mg By Mouth Every 4 hours as needed for severe pain for pain rate 7-10. For right pubis fracture 5mg 01/31 Inactiv e 2023 42288 95418 1 Every 4 hours as needed By Mouth False Cymbalta 30 mg capsule,del ayed release 30 mg By Mouth Once daily For Depression 30 mg 02/04 Inactiv e 2023 72196 36702 0 Once daily By Mouth False Acetaminoph en 500 mg tablet [generic] 1000 mg By Mouth Twice daily not to exceed 3gm APAP in 24 hours For Pain 1000 mg 2023 Active 2023 09723 52405 8 Twice daily By Mouth False Healthshake 118 ml BID 118 ml By Mouth Twice daily Healthshake 118 ml BID For MNA of 7 - malnourished - please record total ml consumed 118 ml 2023 Active 2023 Twice daily By Mouth False Oxycodone 5 mg tablet [generic] 01/31 Inactiv e 2023 05838 11203 1 Oxycodone 5 mg tablet [generic] 5mg By Mouth Every 4 hours as needed for severe pain for pain rate 7-10. For right pubis fracture 5mg 02/01 Inactiv e 2023 74283 86815 1 Every 4 hours as needed By Mouth False Oxycodone 5 mg tablet [generic] 5mg By Mouth Every 4 hours as needed for severe pain 7-10 For right pubis fx 5mg 2023 Active 2023 79697 61673 1 Every 4 hours as needed By Mouth False Cymbalta 60 mg capsule,del ayed release 60mg Once daily depression 60mg 2023 Active 2023 69918 34637 0 Once daily By Mouth False Problems [...] Temperature SpO2 Blood Sugar Pulse Respirations 210 24204 7 78.00 mm[Hg] - Lying Down 186.00 mm[Hg] - Lying Down 109.80 NI 97.90 Forehead Scan 91.00 % 92.00/ min 18.00/min 210 51478 1 74.00 mm[Hg] - Lying Down 147.00 mm[Hg] - Lying Down 85.00/ min 211 02967 2 72.00 mm[Hg] - Sitting 138.00 mm[Hg] - Sitting 98.40 Tympanic 86.00/ min 18.00/min 211 45929 2 59.00 mm[Hg] - Sitting 117.00 mm[Hg] - Sitting 98.20 Tympanic 99.00 % 81.00/ min 18.00/min 211 57787 5 69.00 mm[Hg] - Sitting 145.00 mm[Hg] - Sitting 211 01596 9 69.00 mm[Hg] - Sitting 145.00 mm[Hg] - Sitting 211 86558 5 69.00 mm[Hg] - Sitting 145.00 mm[Hg] - Sitting 211 71694 6 69.00 mm[Hg] - Sitting 212 26689 7 59.00 mm[Hg] - Sitting 117.00 mm[Hg] - Sitting 98.20 Tympanic 81.00/ min 18.00/min 212 79586 9 97.80 Tympanic 212 30454 6 55.00 mm[Hg] - Sitting 109.00 mm[Hg] - Sitting 97.30 Tympanic 94.00 % 75.00/ min 18.00/min 212 59284 5 68.00 mm[Hg] - Sitting 128.00 mm[Hg] - Sitting 97.80 Tympanic 80.00/ min 18.00/min 17589 212 70348 4 97.50 Tympanic 40435 212 61616 9 25615 212 11166 6 71.00 mm[Hg] - Sitting 117.00 mm[Hg] - Sitting 23078 213 10039 0 60.00 mm[Hg] - Sitting 116.00 mm[Hg] - Sitting 98.40 Forehead Scan 94.00 % 72.00/ min 16.00/min 12272 213 32196 7 70.00 mm[Hg] - Sitting 118.00 mm[Hg] - Sitting 98.00 Tympanic 82.00/ min 18.00/min 03160 213 06296 3 97.90 Tympanic 60568 213 60167 5 73.00 mm[Hg] - Lying Down 127.00 mm[Hg] - Lying Down 57206 213 35851 3 94799 214 41305 1 62.00 mm[Hg] - Sitting 127.00 mm[Hg] - Sitting 97.80 Tympanic 94.00 % 72.00/ min 16.00/min 14274 214 97587 4 59.00 mm[Hg] - Lying Down 113.00 mm[Hg] - Lying Down 54143 215 08691 0 56.00 mm[Hg] - Sitting 101.00 mm[Hg] - Sitting 97.80 Tympanic 95.00 % 71.00/ min 16.00/min 08200 215 39599 5 62 NI 85166 215 74689 8 57.00 mm[Hg] - Lying Down 113.00 mm[Hg] - Lying Down 10078 216 51120 3 71.00 mm[Hg] - Sitting 161.00 mm[Hg] - Sitting 98.10 Tympanic 93.00 % 81.00/ min 16.00/min 48242 216 14041 1 72.00 mm[Hg] - Sitting 115.00 mm[Hg] - Sitting 58435 217 98172 2 20286 217 85637 4 62.00 mm[Hg] - Sitting 112.00 mm[Hg] - Sitting 71639 217 76620 3 57.00 mm[Hg] - Sitting 114.00 mm[Hg] - Sitting 98.30 Tympanic 98.00 % 78.00/ min 20.00/min 78376 217 53105 4 62.00 mm[Hg] - Lying Down 111.00 mm[Hg] - Lying Down 83427 218 28524 0 70.00 mm[Hg] - Sitting 158.00 mm[Hg] - Sitting 97.60 Tympanic 97.00 % 68.00/ min 18.00/min 218 29937 5 65.00 mm[Hg] - Lying Down 113.00 mm[Hg] - Lying Down 219 28384 1 67.00 mm[Hg] - Sitting 112.00 mm[Hg] - Sitting
--- OUTSIDE RECORDS SUMMARY | 2024-04-10 03:18 | External Medical Summary | Continuity Of Care Document ---
Author Name Unknown Address [address] [address] Organization [facility] () Care Team Providers Care Language Path Name Role Phone DO Alonso Amy Primary Care Provider [phone] Allergies Allergy Reaction Start Date End Date [...] 3 0.1 mL 01/29 Inactiv e 2023 58875 78261 0 1 time Intrad ermal False Tubersol 5 tub. unit/0.1 mL intradermal injection solution [Tuberculin PPD] 0.1mL Intradermal 1 time For PPD 2nd Step Give 2nd Step PPD Day 1 and Read results Day 3 (schedule 7 days after 1st READ) 0.1mL 02/07 Active 2023 71155 87848 0 1 time Intrad ermal False Oxycodone 5 mg tablet [generic] 5mg By Mouth Every 4 hours as needed for severe pain for pain rate 7-10. For right pubis fracture 5mg 01/27 Inactiv e 2023 74481 46828 1 Every 4 hours as needed By Mouth False OXYCODONE 5 MG TABLET [GENERIC]IM MEDIATE RELEASE 2.5mg By Mouth Every 4 hours as needed tablet po for moderate pain, pain rate 4-6 on pain scale 1-10. For pain 2.5mg 01/27 Inactiv e 2023 Every 4 hours as needed By Mouth False Oxycodone 5 mg tablet [generic] 01/27 Inactiv e 2023 08809 42712 1 Oxycodone 5 mg tablet [generic] 5mg By Mouth Every 4 hours as needed for severe pain for pain rate 7-10. For right pubis fracture 5mg 01/29 Inactiv e 2023 10367 69827 1 Every 4 hours as needed By [...] For Muscle spasms 175mg 2023 Active 2023 59080 67752 1 Every 6 hours as needed By Mouth False Cephalexin 500 mg capsule [generic] 500mg By Mouth Every 8 hours For UTI 500mg 01/30 Inactiv e 2023 48689 33457 1 Every 8 hours By Mouth False Aspirin 81 mg chewable tablet [generic] 81 mg By Mouth Once daily For AAA 81 mg 2023 Active 2023 97796 33863 6 Once daily By Mouth False Colace 100 mg capsule 100mg By Mouth Twice daily For constipation 100mg 2023 Active 2023 01921 09262 1 Twice daily By Mouth False Enoxaparin 300 mg/3 mL subcutaneou s solution [generic] 20mg Subcutaneous Once daily For anticoag. 20mg 02/06 Inactiv e 2023 92200 32178 1 Once daily Subcut aneous False Losartan 50 mg tablet [generic] 50 By Mouth Once daily For HTN 50 2023 Active 2023 84330 26701 9 Once daily By Mouth False Miralax 17 gram/dose oral powder 17 gram By Mouth Once daily For contispation 17 gram 2023 Active 2023 40942 16354 0 Once daily By Mouth False Senna 8.6 mg tablet 2 tabs By Mouth Once daily For constipation 2 tabs 2023 Active 2023 06239 70977 1 Once daily By Mouth False Simvastatin 20 mg tablet [generic] 20 mg By Mouth Once daily For Hyperlipidemi a 20 mg 2023 Active 2023 57578 90452 0 Once daily By Mouth False Spiriva with HandiHaler 18 mcg and inhalation capsules 1 capsule Inhalation Once daily For COPD 1 capsule 2023 Active 2023 86175 82475 1 Once daily Inhala tion False Ventolin HFA 90 mcg/actuati on aerosol inhaler 2 puff Inhalation Every 4 hours as needed For COPD 2 puff 2023 Active 2023 49022 17316 0 Every 4 hours as needed Inhala tion False ProSource No Carb 15 gram-60 kcal/30 mL oral liquid 30ml By Mouth Twice daily For Protien supplement 30ml 01/30 Inactiv e 2023 67278 52687 5 Twice daily By Mouth False Albuterol sulfate 2.5 mg/3 mL (0.083 %) solution for nebulizatio n [generic] 3 ml Inhalation Every 6 hours as needed For wheezing 3 ml 2023 Active 2023 57002 94311 3 Every 6 hours as needed Inhala tion False Acetaminoph en 325 mg tablet [generic] 650 mg By Mouth Every 6 hours For Mild Pain 650 mg 01/29 Inactiv e 2023 79213 13975 0 Every 6 hours By Mouth False Tylenol 325 mg tablet 2 tabs By Mouth Every 4 hours as needed For Pain DO NOT EXCEED 3000 MG APAP/24 Hours 2 tabs 2023 Active 2023 51092 60911 0 Every 4 hours as needed By Mouth False Tylenol 325 mg tablet 2 tabs By Mouth Every 4 hours as needed For Fever >100 DO NOT EXCEED 3000 MG APAP/24 Hours 2 tabs 2023 Active 2023 89706 03585 0 Every 4 hours as needed By Mouth False Dulcolax (bisacodyl) 10 mg rectal suppository One Suppository per rectum PRN if Milk of Magnisia ineffective. Give on day 5 of no BM 1 sup 2023 Active 2023 71461 04595 1 Daily as needed Rectal False Fleet Enema 19 gram-7 gram/118 mL Administer per rectum PRN one time if dulcolax suppository not effective. Give on day 6 of no BM 1 2023 Active 2023 31744 84195 6 Daily as needed Rectal False Milk of Magnesia 400 mg/5 mL oral suspension [Magnesium hydroxide] PRN 30ml By Mouth Daily as needed for constipation one time daily if no BM, on day 4 of no BM (PRN refer to instructions) For Constipation 30 mL 2023 Active 2023 94040 57090 6 Daily as needed By Mouth False Oxycodone 5 mg tablet [generic] 01/29 Inactiv e 2023 59843 74981 1 Oxycodone 5 mg tablet [generic] 5mg By Mouth Every 4 hours as needed for severe pain for pain rate 7-10. For right pubis fracture 5mg 01/31 Inactiv e 2023 62395 28076 1 Every 4 hours as needed By Mouth False Cymbalta 30 mg capsule,del ayed release 30 mg By Mouth Once daily For Depression 30 mg 02/04 Inactiv e 2023 74673 15255 0 Once daily By Mouth False Acetaminoph en 500 mg tablet [generic] 1000 mg By Mouth Twice daily not to exceed 3gm APAP in 24 hours For Pain 1000 mg 2023 Active 2023 86263 63534 8 Twice daily By Mouth False Healthshake 118 ml BID 118 ml By Mouth Twice daily Healthshake 118 ml BID For MNA of 7 - malnourished - please record total ml consumed 118 ml 2023 Active 2023 Twice daily By Mouth False Oxycodone 5 mg tablet [generic] 01/31 Inactiv e 2023 13384 94967 1 Oxycodone 5 mg tablet [generic] 5mg By Mouth Every 4 hours as needed for severe pain for pain rate 7-10. For right pubis fracture 5mg 02/01 Inactiv e 2023 29479 52262 1 Every 4 hours as needed By Mouth False Oxycodone 5 mg tablet [generic] 5mg By Mouth Every 4 hours as needed for severe pain 7-10 For right pubis fx 5mg 2023 Active 2023 27421 13388 1 Every 4 hours as needed By Mouth False Cymbalta 60 mg capsule,del ayed release 60mg Once daily depression 60mg 2023 Active 2023 52122 53697 0 Once daily By Mouth False Enoxaparin 40 mg/0.4 mL subcutaneou s syringe [generic] 20mg Subcutaneous Once daily For anticoag 20mg 2023 Active 2023 64022 96775 0 Once daily Subcut aneous False Problems [...] Temperature SpO2 Blood Sugar Pulse Respirations 210 11328 7 78.00 mm[Hg] - Lying Down 186.00 mm[Hg] - Lying Down 109.80 NI 97.90 Forehead Scan 91.00 % 92.00/ min 18.00/min 210 18266 1 74.00 mm[Hg] - Lying Down 147.00 mm[Hg] - Lying Down 85.00/ min 211 41847 2 72.00 mm[Hg] - Sitting 138.00 mm[Hg] - Sitting 98.40 Tympanic 86.00/ min 18.00/min 211 50030 2 59.00 mm[Hg] - Sitting 117.00 mm[Hg] - Sitting 98.20 Tympanic 99.00 % 81.00/ min 18.00/min 211 75676 5 69.00 mm[Hg] - Sitting 145.00 mm[Hg] - Sitting 211 64955 9 69.00 mm[Hg] - Sitting 145.00 mm[Hg] - Sitting 211 95792 5 69.00 mm[Hg] - Sitting 145.00 mm[Hg] - Sitting 211 74115 6 69.00 mm[Hg] - Sitting 212 33767 7 59.00 mm[Hg] - Sitting 117.00 mm[Hg] - Sitting 98.20 Tympanic 81.00/ min 18.00/min 212 75835 9 97.80 Tympanic 212 05039 6 55.00 mm[Hg] - Sitting 109.00 mm[Hg] - Sitting 97.30 Tympanic 94.00 % 75.00/ min 18.00/min 98732 212 52548 5 68.00 mm[Hg] - Sitting 128.00 mm[Hg] - Sitting 97.80 Tympanic 80.00/ min 18.00/min 09922 212 82347 4 97.50 Tympanic 00806 212 78513 9 25618 212 49016 6 71.00 mm[Hg] - Sitting 117.00 mm[Hg] - Sitting 18957 213 32594 0 60.00 mm[Hg] - Sitting 116.00 mm[Hg] - Sitting 98.40 Forehead Scan 94.00 % 72.00/ min 16.00/min 92853 213 67909 7 70.00 mm[Hg] - Sitting 118.00 mm[Hg] - Sitting 98.00 Tympanic 82.00/ min 18.00/min 84357 213 66084 3 97.90 Tympanic 18402 213 14115 5 73.00 mm[Hg] - Lying Down 127.00 mm[Hg] - Lying Down 71275 213 81753 3 67367 214 60033 1 62.00 mm[Hg] - Sitting 127.00 mm[Hg] - Sitting 97.80 Tympanic 94.00 % 72.00/ min 16.00/min 08618 214 94205 4 59.00 mm[Hg] - Lying Down 113.00 mm[Hg] - Lying Down 81977 215 84019 0 56.00 mm[Hg] - Sitting 101.00 mm[Hg] - Sitting 97.80 Tympanic 95.00 % 71.00/ min 16.00/min 70945 215 26678 5 62 NI [address] 215 98973 8 57.00 mm[Hg] - Lying Down 113.00 mm[Hg] - Lying Down 61437 216 68346 3 71.00 mm[Hg] - Sitting 161.00 mm[Hg] - Sitting 98.10 Tympanic 93.00 % 81.00/ min 16.00/min 46230 216 74987 1 72.00 mm[Hg] - Sitting 115.00 mm[Hg] - Sitting 91683 217 72236 2 60181 217 46347 4 62.00 mm[Hg] - Sitting 112.00 mm[Hg] - Sitting 08349 217 33750 3 57.00 mm[Hg] - Sitting 114.00 mm[Hg] - Sitting 98.30 Tympanic 98.00 % 78.00/ min 20.00/min 88833 217 49687 4 62.00 mm[Hg] - Lying Down 111.00 mm[Hg] - Lying Down 11962 218 75644 0 70.00 mm[Hg] - Sitting 158.00 mm[Hg] - Sitting 97.60 Tympanic 97.00 % 68.00/ min 18.00/min 06631 218 47756 5 65.00 mm[Hg] - Lying Down 113.00 mm[Hg] - Lying Down 52874 219 05751 1 67.00 mm[Hg] - Sitting 112.00 mm[Hg] - Sitting 87436 220 32322 7 69.00 mm[Hg] - Sitting 119.00 mm[Hg] - Sitting
--- OUTSIDE RECORDS SUMMARY | 2024-04-10 03:18 | External Medical Summary | Continuity Of Care Document ---
Author Name Unknown Address [address] [address] Organization [facility] () Care Team Providers Care Psych Rn Name Role Phone DO Alonso Amy Primary Care Provider [phone] Allergies Allergy Reaction Start Date End Date [...] 3 0.1 mL 01/29 Inactiv e 2023 72212 71385 0 1 time Intrad ermal False Tubersol 5 tub. unit/0.1 mL intradermal injection solution [Tuberculin PPD] 0.1mL Intradermal 1 time For PPD 2nd Step Give 2nd Step PPD Day 1 and Read results Day 3 (schedule 7 days after 1st READ) 0.1mL 02/07 Active 2023 18584 34301 0 1 time Intrad ermal False Oxycodone 5 mg tablet [generic] 5mg By Mouth Every 4 hours as needed for severe pain for pain rate 7-10. For right pubis fracture 5mg 01/27 Inactiv e 2023 34721 00071 1 Every 4 hours as needed By Mouth False OXYCODONE 5 MG TABLET [GENERIC]IM MEDIATE RELEASE 2.5mg By Mouth Every 4 hours as needed tablet po for moderate pain, pain rate 4-6 on pain scale 1-10. For pain 2.5mg 01/27 Inactiv e 2023 Every 4 hours as needed By Mouth False Oxycodone 5 mg tablet [generic] 01/27 Inactiv e 2023 79657 01326 1 Oxycodone 5 mg tablet [generic] 5mg By Mouth Every 4 hours as needed for severe pain for pain rate 7-10. For right pubis fracture 5mg 01/29 Inactiv e 2023 95748 56197 1 Every 4 hours as needed By [...] For Muscle spasms 175mg 2023 Active 2023 94047 71286 1 Every 6 hours as needed By Mouth False Cephalexin 500 mg capsule [generic] 500mg By Mouth Every 8 hours For UTI 500mg 01/30 Inactiv e 2023 31741 50789 1 Every 8 hours By Mouth False Aspirin 81 mg chewable tablet [generic] 81 mg By Mouth Once daily For AAA 81 mg 2023 Active 2023 06130 44731 6 Once daily By Mouth False Colace 100 mg capsule 100mg By Mouth Twice daily For constipation 100mg 2023 Active 2023 07676 48335 1 Twice daily By Mouth False Enoxaparin 300 mg/3 mL subcutaneou s solution [generic] 20mg Subcutaneous Once daily For anticoag. 20mg 2023 Active 2023 53539 37980 1 Once daily Subcut aneous False Losartan 50 mg tablet [generic] 50 By Mouth Once daily For HTN 50 2023 Active 2023 43979 10568 9 Once daily By Mouth False Miralax 17 gram/dose oral powder 17 gram By Mouth Once daily For contispation 17 gram 2023 Active 2023 71473 66513 0 Once daily By Mouth False Senna 8.6 mg tablet 2 tabs By Mouth Once daily For constipation 2 tabs 2023 Active 2023 69059 39325 1 Once daily By Mouth False Simvastatin 20 mg tablet [generic] 20 mg By Mouth Once daily For Hyperlipidemi a 20 mg 2023 Active 2023 93277 26846 0 Once daily By Mouth False Spiriva with HandiHaler 18 mcg and inhalation capsules 1 capsule Inhalation Once daily For COPD 1 capsule 2023 Active 2023 90256 84657 1 Once daily Inhala tion False Ventolin HFA 90 mcg/actuati on aerosol inhaler 2 puff Inhalation Every 4 hours as needed For COPD 2 puff 2023 Active 2023 69617 30880 0 Every 4 hours as needed Inhala tion False ProSource No Carb 15 gram-60 kcal/30 mL oral liquid 30ml By Mouth Twice daily For Protien supplement 30ml 01/30 Inactiv e 2023 85930 48760 5 Twice daily By Mouth False Albuterol sulfate 2.5 mg/3 mL (0.083 %) solution for nebulizatio n [generic] 3 ml Inhalation Every 6 hours as needed For wheezing 3 ml 2023 Active 2023 44858 98797 3 Every 6 hours as needed Inhala tion False Acetaminoph en 325 mg tablet [generic] 650 mg By Mouth Every 6 hours For Mild Pain 650 mg 01/29 Inactiv e 2023 01516 41166 0 Every 6 hours By Mouth False Tylenol 325 mg tablet 2 tabs By Mouth Every 4 hours as needed For Pain DO NOT EXCEED 3000 MG APAP/24 Hours 2 tabs 2023 Active 2023 17358 93419 0 Every 4 hours as needed By Mouth False Tylenol 325 mg tablet 2 tabs By Mouth Every 4 hours as needed For Fever >100 DO NOT EXCEED 3000 MG APAP/24 Hours 2 tabs 2023 Active 2023 66105 11150 0 Every 4 hours as needed By Mouth False Dulcolax (bisacodyl) 10 mg rectal suppository One Suppository per rectum PRN if Milk of Magnisia ineffective. Give on day 5 of no BM 1 sup 2023 Active 2023 67892 68777 1 Daily as needed Rectal False Fleet Enema 19 gram-7 gram/118 mL Administer per rectum PRN one time if dulcolax suppository not effective. Give on day 6 of no BM 1 2023 Active 2023 79646 85879 6 Daily as needed Rectal False Milk of Magnesia 400 mg/5 mL oral suspension [Magnesium hydroxide] PRN 30ml By Mouth Daily as needed for constipation one time daily if no BM, on day 4 of no BM (PRN refer to instructions) For Constipation 30 mL 2023 Active 2023 35010 59441 6 Daily as needed By Mouth False Oxycodone 5 mg tablet [generic] 01/29 Inactiv e 2023 85966 82479 1 Oxycodone 5 mg tablet [generic] 5mg By Mouth Every 4 hours as needed for severe pain for pain rate 7-10. For right pubis fracture 5mg 01/31 Inactiv e 2023 10044 25927 1 Every 4 hours as needed By Mouth False Cymbalta 30 mg capsule,del ayed release 30 mg By Mouth Once daily For Depression 30 mg 02/04 Inactiv e 2023 42395 23097 0 Once daily By Mouth False Acetaminoph en 500 mg tablet [generic] 1000 mg By Mouth Twice daily not to exceed 3gm APAP in 24 hours For Pain 1000 mg 2023 Active 2023 83699 31217 8 Twice daily By Mouth False Healthshake 118 ml BID 118 ml By Mouth Twice daily Healthshake 118 ml BID For MNA of 7 - malnourished - please record total ml consumed 118 ml 2023 Active 2023 Twice daily By Mouth False Oxycodone 5 mg tablet [generic] 01/31 Inactiv e 2023 27885 90756 1 Oxycodone 5 mg tablet [generic] 5mg By Mouth Every 4 hours as needed for severe pain for pain rate 7-10. For right pubis fracture 5mg 02/01 Inactiv e 2023 76565 65136 1 Every 4 hours as needed By Mouth False Oxycodone 5 mg tablet [generic] 5mg By Mouth Every 4 hours as needed for severe pain 7-10 For right pubis fx 5mg 2023 Active 2023 87286 35004 1 Every 4 hours as needed By Mouth False Cymbalta 60 mg capsule,del ayed release 60mg Once daily depression 60mg 2023 Active 2023 66791 60524 0 Once daily By Mouth False Problems [...] Temperature SpO2 Blood Sugar Pulse Respirations 210 79180 7 78.00 mm[Hg] - Lying Down 186.00 mm[Hg] - Lying Down 109.80 NI 97.90 Forehead Scan 91.00 % 92.00/ min 18.00/min 210 27439 1 74.00 mm[Hg] - Lying Down 147.00 mm[Hg] - Lying Down 85.00/ min 211 22771 2 72.00 mm[Hg] - Sitting 138.00 mm[Hg] - Sitting 98.40 Tympanic 86.00/ min 18.00/min 211 42643 2 59.00 mm[Hg] - Sitting 117.00 mm[Hg] - Sitting 98.20 Tympanic 99.00 % 81.00/ min 18.00/min 211 85760 5 69.00 mm[Hg] - Sitting 145.00 mm[Hg] - Sitting 211 11606 9 69.00 mm[Hg] - Sitting 145.00 mm[Hg] - Sitting 211 74759 5 69.00 mm[Hg] - Sitting 145.00 mm[Hg] - Sitting 211 06355 6 69.00 mm[Hg] - Sitting 212 87227 7 59.00 mm[Hg] - Sitting 117.00 mm[Hg] - Sitting 98.20 Tympanic 81.00/ min 18.00/min 212 96945 9 97.80 Tympanic 212 72793 6 55.00 mm[Hg] - Sitting 109.00 mm[Hg] - Sitting 97.30 Tympanic 94.00 % 75.00/ min 18.00/min 212 42029 5 68.00 mm[Hg] - Sitting 128.00 mm[Hg] - Sitting 97.80 Tympanic 80.00/ min 18.00/min 26706 212 50763 4 97.50 Tympanic 45309 212 82220 9 22451 212 39508 6 71.00 mm[Hg] - Sitting 117.00 mm[Hg] - Sitting 83984 213 24266 0 60.00 mm[Hg] - Sitting 116.00 mm[Hg] - Sitting 98.40 Forehead Scan 94.00 % 72.00/ min 16.00/min 18606 213 78028 7 70.00 mm[Hg] - Sitting 118.00 mm[Hg] - Sitting 98.00 Tympanic 82.00/ min 18.00/min 05190 213 84563 3 97.90 Tympanic 13274 213 01210 5 73.00 mm[Hg] - Lying Down 127.00 mm[Hg] - Lying Down 81285 213 52616 3 54839 214 26011 1 62.00 mm[Hg] - Sitting 127.00 mm[Hg] - Sitting 97.80 Tympanic 94.00 % 72.00/ min 16.00/min 75855 214 01277 4 59.00 mm[Hg] - Lying Down 113.00 mm[Hg] - Lying Down 85538 215 72245 0 56.00 mm[Hg] - Sitting 101.00 mm[Hg] - Sitting 97.80 Tympanic 95.00 % 71.00/ min 16.00/min 43701 215 09580 5 62 NI 71946 215 65084 8 57.00 mm[Hg] - Lying Down 113.00 mm[Hg] - Lying Down 93414 216 81096 3 71.00 mm[Hg] - Sitting 161.00 mm[Hg] - Sitting 98.10 Tympanic 93.00 % 81.00/ min 16.00/min 96508 216 35223 1 72.00 mm[Hg] - Sitting 115.00 mm[Hg] - Sitting 25077 217 96308 2 07067 217 19530 4 62.00 mm[Hg] - Sitting 112.00 mm[Hg] - Sitting 13558 217 69952 3 57.00 mm[Hg] - Sitting 114.00 mm[Hg] - Sitting 98.30 Tympanic 98.00 % 78.00/ min 20.00/min 61772 217 74448 4 62.00 mm[Hg] - Lying Down 111.00 mm[Hg] - Lying Down 50385 218 31552 0 70.00 mm[Hg] - Sitting 158.00 mm[Hg] - Sitting 97.60 Tympanic 97.00 % 68.00/ min 18.00/min 218 57026 5 65.00 mm[Hg] - Lying Down 113.00 mm[Hg] - Lying Down
--- OUTSIDE RECORDS SUMMARY | 2024-04-10 03:18 | External Medical Summary | Continuity Of Care Document ---
Author Name Unknown Address [address] [address] Organization [facility] () Care Team Providers Care Wallet Assembler Name Role Phone DO Alonso Amy Primary Care Provider [phone] Allergies Allergy Reaction Start Date End Date [...] 3 0.1 mL 01/29 Inactiv e 2023 46063 78721 0 1 time Intrad ermal False Tubersol 5 tub. unit/0.1 mL intradermal injection solution [Tuberculin PPD] 0.1mL Intradermal 1 time For PPD 2nd Step Give 2nd Step PPD Day 1 and Read results Day 3 (schedule 7 days after 1st READ) 0.1mL 02/07 Active 2023 62774 08451 0 1 time Intrad ermal False Oxycodone 5 mg tablet [generic] 5mg By Mouth Every 4 hours as needed for severe pain for pain rate 7-10. For right pubis fracture 5mg 01/27 Inactiv e 2023 87770 48806 1 Every 4 hours as needed By Mouth False OXYCODONE 5 MG TABLET [GENERIC]IM MEDIATE RELEASE 2.5mg By Mouth Every 4 hours as needed tablet po for moderate pain, pain rate 4-6 on pain scale 1-10. For pain 2.5mg 01/27 Inactiv e 2023 Every 4 hours as needed By Mouth False Oxycodone 5 mg tablet [generic] 01/27 Inactiv e 2023 85497 77266 1 Oxycodone 5 mg tablet [generic] 5mg By Mouth Every 4 hours as needed for severe pain for pain rate 7-10. For right pubis fracture 5mg 01/29 Inactiv e 2023 23967 09906 1 Every 4 hours as needed By [...] For Muscle spasms 175mg 2023 Active 2023 17195 99369 1 Every 6 hours as needed By Mouth False Cephalexin 500 mg capsule [generic] 500mg By Mouth Every 8 hours For UTI 500mg 01/30 Inactiv e 2023 24107 40598 1 Every 8 hours By Mouth False Aspirin 81 mg chewable tablet [generic] 81 mg By Mouth Once daily For AAA 81 mg 2023 Active 2023 63069 62411 6 Once daily By Mouth False Colace 100 mg capsule 100mg By Mouth Twice daily For constipation 100mg 2023 Active 2023 57774 49238 1 Twice daily By Mouth False Enoxaparin 300 mg/3 mL subcutaneou s solution [generic] 20mg Subcutaneous Once daily For anticoag. 20mg 2023 Active 2023 42755 34556 1 Once daily Subcut aneous False Losartan 50 mg tablet [generic] 50 By Mouth Once daily For HTN 50 2023 Active 2023 35681 99331 9 Once daily By Mouth False Miralax 17 gram/dose oral powder 17 gram By Mouth Once daily For contispation 17 gram 2023 Active 2023 76446 86086 0 Once daily By Mouth False Senna 8.6 mg tablet 2 tabs By Mouth Once daily For constipation 2 tabs 2023 Active 2023 64865 74489 1 Once daily By Mouth False Simvastatin 20 mg tablet [generic] 20 mg By Mouth Once daily For Hyperlipidemi a 20 mg 2023 Active 2023 19213 71996 0 Once daily By Mouth False Spiriva with HandiHaler 18 mcg and inhalation capsules 1 capsule Inhalation Once daily For COPD 1 capsule 2023 Active 2023 04935 97625 1 Once daily Inhala tion False Ventolin HFA 90 mcg/actuati on aerosol inhaler 2 puff Inhalation Every 4 hours as needed For COPD 2 puff 2023 Active 2023 90681 32591 0 Every 4 hours as needed Inhala tion False ProSource No Carb 15 gram-60 kcal/30 mL oral liquid 30ml By Mouth Twice daily For Protien supplement 30ml 01/30 Inactiv e 2023 02626 11570 5 Twice daily By Mouth False Albuterol sulfate 2.5 mg/3 mL (0.083 %) solution for nebulizatio n [generic] 3 ml Inhalation Every 6 hours as needed For wheezing 3 ml 2023 Active 2023 24836 58482 3 Every 6 hours as needed Inhala tion False Acetaminoph en 325 mg tablet [generic] 650 mg By Mouth Every 6 hours For Mild Pain 650 mg 01/29 Inactiv e 2023 19712 65585 0 Every 6 hours By Mouth False Tylenol 325 mg tablet 2 tabs By Mouth Every 4 hours as needed For Pain DO NOT EXCEED 3000 MG APAP/24 Hours 2 tabs 2023 Active 2023 10917 56594 0 Every 4 hours as needed By Mouth False Tylenol 325 mg tablet 2 tabs By Mouth Every 4 hours as needed For Fever >100 DO NOT EXCEED 3000 MG APAP/24 Hours 2 tabs 2023 Active 2023 61926 91346 0 Every 4 hours as needed By Mouth False Dulcolax (bisacodyl) 10 mg rectal suppository One Suppository per rectum PRN if Milk of Magnisia ineffective. Give on day 5 of no BM 1 sup 2023 Active 2023 31058 34344 1 Daily as needed Rectal False Fleet Enema 19 gram-7 gram/118 mL Administer per rectum PRN one time if dulcolax suppository not effective. Give on day 6 of no BM 1 2023 Active 2023 82400 07216 6 Daily as needed Rectal False Milk of Magnesia 400 mg/5 mL oral suspension [Magnesium hydroxide] PRN 30ml By Mouth Daily as needed for constipation one time daily if no BM, on day 4 of no BM (PRN refer to instructions) For Constipation 30 mL 2023 Active 2023 00144 13842 6 Daily as needed By Mouth False Oxycodone 5 mg tablet [generic] 01/29 Inactiv e 2023 37101 99095 1 Oxycodone 5 mg tablet [generic] 5mg By Mouth Every 4 hours as needed for severe pain for pain rate 7-10. For right pubis fracture 5mg 01/31 Inactiv e 2023 86270 51597 1 Every 4 hours as needed By Mouth False Cymbalta 30 mg capsule,del ayed release 30 mg By Mouth Once daily For Depression 30 mg 02/04 Inactiv e 2023 76745 36340 0 Once daily By Mouth False Acetaminoph en 500 mg tablet [generic] 1000 mg By Mouth Twice daily not to exceed 3gm APAP in 24 hours For Pain 1000 mg 2023 Active 2023 72650 46010 8 Twice daily By Mouth False Healthshake 118 ml BID 118 ml By Mouth Twice daily Healthshake 118 ml BID For MNA of 7 - malnourished - please record total ml consumed 118 ml 2023 Active 2023 Twice daily By Mouth False Oxycodone 5 mg tablet [generic] 01/31 Inactiv e 2023 73754 32431 1 Oxycodone 5 mg tablet [generic] 5mg By Mouth Every 4 hours as needed for severe pain for pain rate 7-10. For right pubis fracture 5mg 02/01 Inactiv e 2023 91548 41570 1 Every 4 hours as needed By Mouth False Oxycodone 5 mg tablet [generic] 5mg By Mouth Every 4 hours as needed for severe pain 7-10 For right pubis fx 5mg 2023 Active 2023 09791 98204 1 Every 4 hours as needed By Mouth False Cymbalta 60 mg capsule,del ayed release 60mg Once daily depression 60mg 2023 Active 2023 17345 39209 0 Once daily By Mouth False Problems [...] Temperature SpO2 Blood Sugar Pulse Respirations 210 57458 7 78.00 mm[Hg] - Lying Down 186.00 mm[Hg] - Lying Down 109.80 NI 97.90 Forehead Scan 91.00 % 92.00/ min 18.00/min 210 38582 1 74.00 mm[Hg] - Lying Down 147.00 mm[Hg] - Lying Down 85.00/ min 211 48010 2 72.00 mm[Hg] - Sitting 138.00 mm[Hg] - Sitting 98.40 Tympanic 86.00/ min 18.00/min 211 29711 2 59.00 mm[Hg] - Sitting 117.00 mm[Hg] - Sitting 98.20 Tympanic 99.00 % 81.00/ min 18.00/min 211 32330 5 69.00 mm[Hg] - Sitting 145.00 mm[Hg] - Sitting 211 48268 9 69.00 mm[Hg] - Sitting 145.00 mm[Hg] - Sitting 211 90444 5 69.00 mm[Hg] - Sitting 145.00 mm[Hg] - Sitting 211 37852 6 69.00 mm[Hg] - Sitting 212 74393 7 59.00 mm[Hg] - Sitting 117.00 mm[Hg] - Sitting 98.20 Tympanic 81.00/ min 18.00/min 212 19737 9 97.80 Tympanic 212 35967 6 55.00 mm[Hg] - Sitting 109.00 mm[Hg] - Sitting 97.30 Tympanic 94.00 % 75.00/ min 18.00/min 212 94519 5 68.00 mm[Hg] - Sitting 128.00 mm[Hg] - Sitting 97.80 Tympanic 80.00/ min 18.00/min 54892 212 94342 4 97.50 Tympanic 34714 212 09092 9 19231 212 24198 6 71.00 mm[Hg] - Sitting 117.00 mm[Hg] - Sitting 03122 213 33061 0 60.00 mm[Hg] - Sitting 116.00 mm[Hg] - Sitting 98.40 Forehead Scan 94.00 % 72.00/ min 16.00/min 98116 213 91914 7 70.00 mm[Hg] - Sitting 118.00 mm[Hg] - Sitting 98.00 Tympanic 82.00/ min 18.00/min 42808 213 68175 3 97.90 Tympanic 45331 213 41270 5 73.00 mm[Hg] - Lying Down 127.00 mm[Hg] - Lying Down 05587 213 65123 3 72527 214 33234 1 62.00 mm[Hg] - Sitting 127.00 mm[Hg] - Sitting 97.80 Tympanic 94.00 % 72.00/ min 16.00/min 53561 214 63341 4 59.00 mm[Hg] - Lying Down 113.00 mm[Hg] - Lying Down 49763 215 06135 0 56.00 mm[Hg] - Sitting 101.00 mm[Hg] - Sitting 97.80 Tympanic 95.00 % 71.00/ min 16.00/min 13744 215 35851 5 62 NI 19219 215 50149 8 57.00 mm[Hg] - Lying Down 113.00 mm[Hg] - Lying Down 20991 216 18883 3 71.00 mm[Hg] - Sitting 161.00 mm[Hg] - Sitting 98.10 Tympanic 93.00 % 81.00/ min 16.00/min 72058 216 89191 1 72.00 mm[Hg] - Sitting 115.00 mm[Hg] - Sitting 77770 217 67789 2 80246 217 32682 4 62.00 mm[Hg] - Sitting 112.00 mm[Hg] - Sitting 32181 217 62216 3 57.00 mm[Hg] - Sitting 114.00 mm[Hg] - Sitting 98.30 Tympanic 98.00 % 78.00/ min 20.00/min 57016 217 17123 4 62.00 mm[Hg] - Lying Down 111.00 mm[Hg] - Lying Down 00176 218 52261 0 70.00 mm[Hg] - Sitting 158.00 mm[Hg] - Sitting 97.60 Tympanic 97.00 % 68.00/ min 18.00/min 218 28116 5 65.00 mm[Hg] - Lying Down 113.00 mm[Hg] - Lying Down 219 15533 1 67.00 mm[Hg] - Sitting 112.00 mm[Hg] - Sitting
--- OUTSIDE RECORDS SUMMARY | 2024-04-10 03:18 | External Medical Summary | Continuity Of Care Document ---
Author Name Unknown Address [address] [address] Organization [facility] () Care Team Providers Care Purchaser Name Role Phone DO Alonso Amy Primary Care Provider [phone] Allergies Allergy Reaction Start Date End Date [...] 3 0.1 mL 01/29 Inactiv e 2023 49784 78283 0 1 time Intrad ermal False Tubersol 5 tub. unit/0.1 mL intradermal injection solution [Tuberculin PPD] 0.1mL Intradermal 1 time For PPD 2nd Step Give 2nd Step PPD Day 1 and Read results Day 3 (schedule 7 days after 1st READ) 0.1mL 02/07 Active 2023 13647 83834 0 1 time Intrad ermal False Oxycodone 5 mg tablet [generic] 5mg By Mouth Every 4 hours as needed for severe pain for pain rate 7-10. For right pubis fracture 5mg 01/27 Inactiv e 2023 20822 54957 1 Every 4 hours as needed By Mouth False OXYCODONE 5 MG TABLET [GENERIC]IM MEDIATE RELEASE 2.5mg By Mouth Every 4 hours as needed tablet po for moderate pain, pain rate 4-6 on pain scale 1-10. For pain 2.5mg 01/27 Inactiv e 2023 Every 4 hours as needed By Mouth False Oxycodone 5 mg tablet [generic] 01/27 Inactiv e 2023 69326 67340 1 Oxycodone 5 mg tablet [generic] 5mg By Mouth Every 4 hours as needed for severe pain for pain rate 7-10. For right pubis fracture 5mg 01/29 Inactiv e 2023 67931 99875 1 Every 4 hours as needed By [...] For Muscle spasms 175mg 2023 Active 2023 97940 43708 1 Every 6 hours as needed By Mouth False Cephalexin 500 mg capsule [generic] 500mg By Mouth Every 8 hours For UTI 500mg 01/30 Inactiv e 2023 32659 09440 1 Every 8 hours By Mouth False Aspirin 81 mg chewable tablet [generic] 81 mg By Mouth Once daily For AAA 81 mg 2023 Active 2023 71360 46536 6 Once daily By Mouth False Colace 100 mg capsule 100mg By Mouth Twice daily For constipation 100mg 2023 Active 2023 65980 23256 1 Twice daily By Mouth False Enoxaparin 300 mg/3 mL subcutaneou s solution [generic] 20mg Subcutaneous Once daily For anticoag. 20mg 2023 Active 2023 27720 58823 1 Once daily Subcut aneous False Losartan 50 mg tablet [generic] 50 By Mouth Once daily For HTN 50 2023 Active 2023 72404 34407 9 Once daily By Mouth False Miralax 17 gram/dose oral powder 17 gram By Mouth Once daily For contispation 17 gram 2023 Active 2023 19494 16660 0 Once daily By Mouth False Senna 8.6 mg tablet 2 tabs By Mouth Once daily For constipation 2 tabs 2023 Active 2023 93084 94057 1 Once daily By Mouth False Simvastatin 20 mg tablet [generic] 20 mg By Mouth Once daily For Hyperlipidemi a 20 mg 2023 Active 2023 57403 92341 0 Once daily By Mouth False Spiriva with HandiHaler 18 mcg and inhalation capsules 1 capsule Inhalation Once daily For COPD 1 capsule 2023 Active 2023 09027 26265 1 Once daily Inhala tion False Ventolin HFA 90 mcg/actuati on aerosol inhaler 2 puff Inhalation Every 4 hours as needed For COPD 2 puff 2023 Active 2023 38126 38398 0 Every 4 hours as needed Inhala tion False ProSource No Carb 15 gram-60 kcal/30 mL oral liquid 30ml By Mouth Twice daily For Protien supplement 30ml 01/30 Inactiv e 2023 28742 83990 5 Twice daily By Mouth False Albuterol sulfate 2.5 mg/3 mL (0.083 %) solution for nebulizatio n [generic] 3 ml Inhalation Every 6 hours as needed For wheezing 3 ml 2023 Active 2023 93089 44681 3 Every 6 hours as needed Inhala tion False Acetaminoph en 325 mg tablet [generic] 650 mg By Mouth Every 6 hours For Mild Pain 650 mg 01/29 Inactiv e 2023 51704 68365 0 Every 6 hours By Mouth False Tylenol 325 mg tablet 2 tabs By Mouth Every 4 hours as needed For Pain DO NOT EXCEED 3000 MG APAP/24 Hours 2 tabs 2023 Active 2023 01057 52492 0 Every 4 hours as needed By Mouth False Tylenol 325 mg tablet 2 tabs By Mouth Every 4 hours as needed For Fever >100 DO NOT EXCEED 3000 MG APAP/24 Hours 2 tabs 2023 Active 2023 71061 93137 0 Every 4 hours as needed By Mouth False Dulcolax (bisacodyl) 10 mg rectal suppository One Suppository per rectum PRN if Milk of Magnisia ineffective. Give on day 5 of no BM 1 sup 2023 Active 2023 26741 35843 1 Daily as needed Rectal False Fleet Enema 19 gram-7 gram/118 mL Administer per rectum PRN one time if dulcolax suppository not effective. Give on day 6 of no BM 1 2023 Active 2023 62054 49960 6 Daily as needed Rectal False Milk of Magnesia 400 mg/5 mL oral suspension [Magnesium hydroxide] PRN 30ml By Mouth Daily as needed for constipation one time daily if no BM, on day 4 of no BM (PRN refer to instructions) For Constipation 30 mL 2023 Active 2023 67904 48893 6 Daily as needed By Mouth False Oxycodone 5 mg tablet [generic] 01/29 Inactiv e 2023 05865 46203 1 Oxycodone 5 mg tablet [generic] 5mg By Mouth Every 4 hours as needed for severe pain for pain rate 7-10. For right pubis fracture 5mg 01/31 Inactiv e 2023 39132 10519 1 Every 4 hours as needed By Mouth False Cymbalta 30 mg capsule,del ayed release 30 mg By Mouth Once daily For Depression 30 mg 02/04 Inactiv e 2023 40516 25276 0 Once daily By Mouth False Acetaminoph en 500 mg tablet [generic] 1000 mg By Mouth Twice daily not to exceed 3gm APAP in 24 hours For Pain 1000 mg 2023 Active 2023 36707 03046 8 Twice daily By Mouth False Healthshake 118 ml BID 118 ml By Mouth Twice daily Healthshake 118 ml BID For MNA of 7 - malnourished - please record total ml consumed 118 ml 2023 Active 2023 Twice daily By Mouth False Oxycodone 5 mg tablet [generic] 01/31 Inactiv e 2023 17695 71142 1 Oxycodone 5 mg tablet [generic] 5mg By Mouth Every 4 hours as needed for severe pain for pain rate 7-10. For right pubis fracture 5mg 02/01 Inactiv e 2023 83933 42501 1 Every 4 hours as needed By Mouth False Oxycodone 5 mg tablet [generic] 5mg By Mouth Every 4 hours as needed for severe pain 7-10 For right pubis fx 5mg 2023 Active 2023 10698 04126 1 Every 4 hours as needed By Mouth False Cymbalta 60 mg capsule,del ayed release 60mg Once daily depression 60mg 2023 Active 2023 95580 60638 0 Once daily By Mouth False Problems [...] Temperature SpO2 Blood Sugar Pulse Respirations 210 64017 7 78.00 mm[Hg] - Lying Down 186.00 mm[Hg] - Lying Down 109.80 NI 97.90 Forehead Scan 91.00 % 92.00/ min 18.00/min 210 20818 1 74.00 mm[Hg] - Lying Down 147.00 mm[Hg] - Lying Down 85.00/ min 211 67436 2 72.00 mm[Hg] - Sitting 138.00 mm[Hg] - Sitting 98.40 Tympanic 86.00/ min 18.00/min 211 45469 2 59.00 mm[Hg] - Sitting 117.00 mm[Hg] - Sitting 98.20 Tympanic 99.00 % 81.00/ min 18.00/min 211 06491 5 69.00 mm[Hg] - Sitting 145.00 mm[Hg] - Sitting 211 54126 9 69.00 mm[Hg] - Sitting 145.00 mm[Hg] - Sitting 211 23798 5 69.00 mm[Hg] - Sitting 145.00 mm[Hg] - Sitting 211 06401 6 69.00 mm[Hg] - Sitting 212 62211 7 59.00 mm[Hg] - Sitting 117.00 mm[Hg] - Sitting 98.20 Tympanic 81.00/ min 18.00/min 212 42336 9 97.80 Tympanic 212 46569 6 55.00 mm[Hg] - Sitting 109.00 mm[Hg] - Sitting 97.30 Tympanic 94.00 % 75.00/ min 18.00/min 212 23986 5 68.00 mm[Hg] - Sitting 128.00 mm[Hg] - Sitting 97.80 Tympanic 80.00/ min 18.00/min 27115 212 17765 4 97.50 Tympanic 64779 212 01803 9 30434 212 20317 6 71.00 mm[Hg] - Sitting 117.00 mm[Hg] - Sitting 46338 213 97120 0 60.00 mm[Hg] - Sitting 116.00 mm[Hg] - Sitting 98.40 Forehead Scan 94.00 % 72.00/ min 16.00/min 69873 213 20926 7 70.00 mm[Hg] - Sitting 118.00 mm[Hg] - Sitting 98.00 Tympanic 82.00/ min 18.00/min 42913 213 39412 3 97.90 Tympanic 90783 213 46096 5 73.00 mm[Hg] - Lying Down 127.00 mm[Hg] - Lying Down 47045 213 50855 3 36384 214 33348 1 62.00 mm[Hg] - Sitting 127.00 mm[Hg] - Sitting 97.80 Tympanic 94.00 % 72.00/ min 16.00/min 18478 214 26263 4 59.00 mm[Hg] - Lying Down 113.00 mm[Hg] - Lying Down 79703 215 08021 0 56.00 mm[Hg] - Sitting 101.00 mm[Hg] - Sitting 97.80 Tympanic 95.00 % 71.00/ min 16.00/min 24131 215 02739 5 62 NI 67426 215 42423 8 57.00 mm[Hg] - Lying Down 113.00 mm[Hg] - Lying Down 12943 216 86665 3 71.00 mm[Hg] - Sitting 161.00 mm[Hg] - Sitting 98.10 Tympanic 93.00 % 81.00/ min 16.00/min 80012 216 75901 1 72.00 mm[Hg] - Sitting 115.00 mm[Hg] - Sitting 54666 217 05390 2 40867 217 02382 4 62.00 mm[Hg] - Sitting 112.00 mm[Hg] - Sitting 85542 217 08699 3 57.00 mm[Hg] - Sitting 114.00 mm[Hg] - Sitting 98.30 Tympanic 98.00 % 78.00/ min 20.00/min 65482 217 42020 4 62.00 mm[Hg] - Lying Down 111.00 mm[Hg] - Lying Down 10472 218 61335 0 70.00 mm[Hg] - Sitting 158.00 mm[Hg] - Sitting 97.60 Tympanic 97.00 % 68.00/ min 18.00/min 218 46066 5 65.00 mm[Hg] - Lying Down 113.00 mm[Hg] - Lying Down 219 11416 1 67.00 mm[Hg] - Sitting 112.00 mm[Hg] - Sitting
--- OUTSIDE RECORDS SUMMARY | 2024-04-10 03:19 | External Medical Summary | Continuity Of Care Document ---
Author Name Unknown Address [address] [address] Organization [facility] () Care Team Providers Care Pediatric Oncologist Name Role Phone DO Alonso Amy Primary Care Provider [phone] Allergies Allergy Reaction Start Date End Date [...] 3 0.1 mL 01/29 Inactiv e 2023 02176 71805 0 1 time Intrad ermal False Tubersol 5 tub. unit/0.1 mL intradermal injection solution [Tuberculin PPD] 0.1mL Intradermal 1 time For PPD 2nd Step Give 2nd Step PPD Day 1 and Read results Day 3 (schedule 7 days after 1st READ) 0.1mL 02/07 Active 2023 70386 30135 0 1 time Intrad ermal False Oxycodone 5 mg tablet [generic] 5mg By Mouth Every 4 hours as needed for severe pain for pain rate 7-10. For right pubis fracture 5mg 01/27 Inactiv e 2023 07453 32515 1 Every 4 hours as needed By Mouth False OXYCODONE 5 MG TABLET [GENERIC]IM MEDIATE RELEASE 2.5mg By Mouth Every 4 hours as needed tablet po for moderate pain, pain rate 4-6 on pain scale 1-10. For pain 2.5mg 01/27 Inactiv e 2023 Every 4 hours as needed By Mouth False Oxycodone 5 mg tablet [generic] 01/27 Inactiv e 2023 11671 25780 1 Oxycodone 5 mg tablet [generic] 5mg By Mouth Every 4 hours as needed for severe pain for pain rate 7-10. For right pubis fracture 5mg 01/29 Inactiv e 2023 87231 24278 1 Every 4 hours as needed By [...] For Muscle spasms 175mg 2023 Active 2023 31883 38115 1 Every 6 hours as needed By Mouth False Cephalexin 500 mg capsule [generic] 500mg By Mouth Every 8 hours For UTI 500mg 01/30 Inactiv e 2023 67820 21777 1 Every 8 hours By Mouth False Aspirin 81 mg chewable tablet [generic] 81 mg By Mouth Once daily For AAA 81 mg 2023 Active 2023 03866 09054 6 Once daily By Mouth False Colace 100 mg capsule 100mg By Mouth Twice daily For constipation 100mg 2023 Active 2023 57999 82030 1 Twice daily By Mouth False Enoxaparin 300 mg/3 mL subcutaneou s solution [generic] 20mg Subcutaneous Once daily For anticoag. 20mg 2023 Active 2023 80285 29699 1 Once daily Subcut aneous False Losartan 50 mg tablet [generic] 50 By Mouth Once daily For HTN 50 2023 Active 2023 50421 00627 9 Once daily By Mouth False Miralax 17 gram/dose oral powder 17 gram By Mouth Once daily For contispation 17 gram 2023 Active 2023 35427 08306 0 Once daily By Mouth False Senna 8.6 mg tablet 2 tabs By Mouth Once daily For constipation 2 tabs 2023 Active 2023 58133 02623 1 Once daily By Mouth False Simvastatin 20 mg tablet [generic] 20 mg By Mouth Once daily For Hyperlipidemi a 20 mg 2023 Active 2023 00106 10731 0 Once daily By Mouth False Spiriva with HandiHaler 18 mcg and inhalation capsules 1 capsule Inhalation Once daily For COPD 1 capsule 2023 Active 2023 06626 76142 1 Once daily Inhala tion False Ventolin HFA 90 mcg/actuati on aerosol inhaler 2 puff Inhalation Every 4 hours as needed For COPD 2 puff 2023 Active 2023 89827 63425 0 Every 4 hours as needed Inhala tion False ProSource No Carb 15 gram-60 kcal/30 mL oral liquid 30ml By Mouth Twice daily For Protien supplement 30ml 01/30 Inactiv e 2023 53727 75424 5 Twice daily By Mouth False Albuterol sulfate 2.5 mg/3 mL (0.083 %) solution for nebulizatio n [generic] 3 ml Inhalation Every 6 hours as needed For wheezing 3 ml 2023 Active 2023 61475 05746 3 Every 6 hours as needed Inhala tion False Acetaminoph en 325 mg tablet [generic] 650 mg By Mouth Every 6 hours For Mild Pain 650 mg 01/29 Inactiv e 2023 36910 10385 0 Every 6 hours By Mouth False Tylenol 325 mg tablet 2 tabs By Mouth Every 4 hours as needed For Pain DO NOT EXCEED 3000 MG APAP/24 Hours 2 tabs 2023 Active 2023 14071 51946 0 Every 4 hours as needed By Mouth False Tylenol 325 mg tablet 2 tabs By Mouth Every 4 hours as needed For Fever >100 DO NOT EXCEED 3000 MG APAP/24 Hours 2 tabs 2023 Active 2023 61956 14151 0 Every 4 hours as needed By Mouth False Dulcolax (bisacodyl) 10 mg rectal suppository One Suppository per rectum PRN if Milk of Magnisia ineffective. Give on day 5 of no BM 1 sup 2023 Active 2023 40001 70348 1 Daily as needed Rectal False Fleet Enema 19 gram-7 gram/118 mL Administer per rectum PRN one time if dulcolax suppository not effective. Give on day 6 of no BM 1 2023 Active 2023 95306 75195 6 Daily as needed Rectal False Milk of Magnesia 400 mg/5 mL oral suspension [Magnesium hydroxide] PRN 30ml By Mouth Daily as needed for constipation one time daily if no BM, on day 4 of no BM (PRN refer to instructions) For Constipation 30 mL 2023 Active 2023 70870 22239 6 Daily as needed By Mouth False Oxycodone 5 mg tablet [generic] 01/29 Inactiv e 2023 65071 77652 1 Oxycodone 5 mg tablet [generic] 5mg By Mouth Every 4 hours as needed for severe pain for pain rate 7-10. For right pubis fracture 5mg 01/31 Inactiv e 2023 98366 24702 1 Every 4 hours as needed By Mouth False Cymbalta 30 mg capsule,del ayed release 30 mg By Mouth Once daily For Depression 30 mg 02/04 Inactiv e 2023 32660 98913 0 Once daily By Mouth False Acetaminoph en 500 mg tablet [generic] 1000 mg By Mouth Twice daily not to exceed 3gm APAP in 24 hours For Pain 1000 mg 2023 Active 2023 98190 38257 8 Twice daily By Mouth False Healthshake 118 ml BID 118 ml By Mouth Twice daily Healthshake 118 ml BID For MNA of 7 - malnourished - please record total ml consumed 118 ml 2023 Active 2023 Twice daily By Mouth False Oxycodone 5 mg tablet [generic] 01/31 Inactiv e 2023 29516 40006 1 Oxycodone 5 mg tablet [generic] 5mg By Mouth Every 4 hours as needed for severe pain for pain rate 7-10. For right pubis fracture 5mg 02/01 Inactiv e 2023 26721 92630 1 Every 4 hours as needed By Mouth False Oxycodone 5 mg tablet [generic] 5mg By Mouth Every 4 hours as needed for severe pain 7-10 For right pubis fx 5mg 2023 Active 2023 63334 37155 1 Every 4 hours as needed By Mouth False Cymbalta 60 mg capsule,del ayed release 60mg Once daily depression 60mg 2023 Active 2023 72102 09606 0 Once daily By Mouth False Problems [...] Temperature SpO2 Blood Sugar Pulse Respirations 210 55167 7 78.00 mm[Hg] - Lying Down 186.00 mm[Hg] - Lying Down 109.80 NI 97.90 Forehead Scan 91.00 % 92.00/ min 18.00/min 210 13040 1 74.00 mm[Hg] - Lying Down 147.00 mm[Hg] - Lying Down 85.00/ min 211 12064 2 72.00 mm[Hg] - Sitting 138.00 mm[Hg] - Sitting 98.40 Tympanic 86.00/ min 18.00/min 211 62192 2 59.00 mm[Hg] - Sitting 117.00 mm[Hg] - Sitting 98.20 Tympanic 99.00 % 81.00/ min 18.00/min 211 45874 5 69.00 mm[Hg] - Sitting 145.00 mm[Hg] - Sitting 211 23445 9 69.00 mm[Hg] - Sitting 145.00 mm[Hg] - Sitting 211 90398 5 69.00 mm[Hg] - Sitting 145.00 mm[Hg] - Sitting 211 21494 6 69.00 mm[Hg] - Sitting 212 79883 7 59.00 mm[Hg] - Sitting 117.00 mm[Hg] - Sitting 98.20 Tympanic 81.00/ min 18.00/min 212 94844 9 97.80 Tympanic 212 46799 6 55.00 mm[Hg] - Sitting 109.00 mm[Hg] - Sitting 97.30 Tympanic 94.00 % 75.00/ min 18.00/min 212 60345 5 68.00 mm[Hg] - Sitting 128.00 mm[Hg] - Sitting 97.80 Tympanic 80.00/ min 18.00/min 14293 212 43016 4 97.50 Tympanic 89081 212 83361 9 65992 212 82347 6 71.00 mm[Hg] - Sitting 117.00 mm[Hg] - Sitting 72746 213 81160 0 60.00 mm[Hg] - Sitting 116.00 mm[Hg] - Sitting 98.40 Forehead Scan 94.00 % 72.00/ min 16.00/min 96115 213 87736 7 70.00 mm[Hg] - Sitting 118.00 mm[Hg] - Sitting 98.00 Tympanic 82.00/ min 18.00/min 22152 213 68957 3 97.90 Tympanic 53319 213 48273 5 73.00 mm[Hg] - Lying Down 127.00 mm[Hg] - Lying Down 33072 213 63834 3 78903 214 73832 1 62.00 mm[Hg] - Sitting 127.00 mm[Hg] - Sitting 97.80 Tympanic 94.00 % 72.00/ min 16.00/min 64812 214 70156 4 59.00 mm[Hg] - Lying Down 113.00 mm[Hg] - Lying Down 18764 215 43894 0 56.00 mm[Hg] - Sitting 101.00 mm[Hg] - Sitting 97.80 Tympanic 95.00 % 71.00/ min 16.00/min 11995 215 93757 5 62 NI 17570 215 93656 8 57.00 mm[Hg] - Lying Down 113.00 mm[Hg] - Lying Down 99655 216 54580 3 71.00 mm[Hg] - Sitting 161.00 mm[Hg] - Sitting 98.10 Tympanic 93.00 % 81.00/ min 16.00/min 18046 216 67435 1 72.00 mm[Hg] - Sitting 115.00 mm[Hg] - Sitting 34435 217 12947 2 04950 217 89777 4 62.00 mm[Hg] - Sitting 112.00 mm[Hg] - Sitting 22399 217 05922 3 57.00 mm[Hg] - Sitting 114.00 mm[Hg] - Sitting 98.30 Tympanic 98.00 % 78.00/ min 20.00/min 35061 217 06095 4 62.00 mm[Hg] - Lying Down 111.00 mm[Hg] - Lying Down 57613 218 83095 0 70.00 mm[Hg] - Sitting 158.00 mm[Hg] - Sitting 97.60 Tympanic 97.00 % 68.00/ min 18.00/min 218 05440 5 65.00 mm[Hg] - Lying Down 113.00 mm[Hg] - Lying Down 219 35869 1 67.00 mm[Hg] - Sitting 112.00 mm[Hg] - Sitting
--- OUTSIDE RECORDS SUMMARY | 2024-04-10 03:19 | External Medical Summary | Continuity Of Care Document ---
Author Name Unknown Address [address] [address] Organization [facility] () Care Team Providers Care Cash Management Specialist Name Role Phone DO Alonso Amy Primary Care Provider [phone] Allergies Allergy Reaction Start Date End Date [...] 3 0.1 mL 01/29 Inactiv e 2023 80858 57078 0 1 time Intrad ermal False Tubersol 5 tub. unit/0.1 mL intradermal injection solution [Tuberculin PPD] 0.1mL Intradermal 1 time For PPD 2nd Step Give 2nd Step PPD Day 1 and Read results Day 3 (schedule 7 days after 1st READ) 0.1mL 02/07 Active 2023 21343 17391 0 1 time Intrad ermal False Oxycodone 5 mg tablet [generic] 5mg By Mouth Every 4 hours as needed for severe pain for pain rate 7-10. For right pubis fracture 5mg 01/27 Inactiv e 2023 22808 16064 1 Every 4 hours as needed By Mouth False OXYCODONE 5 MG TABLET [GENERIC]IM MEDIATE RELEASE 2.5mg By Mouth Every 4 hours as needed tablet po for moderate pain, pain rate 4-6 on pain scale 1-10. For pain 2.5mg 01/27 Inactiv e 2023 Every 4 hours as needed By Mouth False Oxycodone 5 mg tablet [generic] 01/27 Inactiv e 2023 63634 23516 1 Oxycodone 5 mg tablet [generic] 5mg By Mouth Every 4 hours as needed for severe pain for pain rate 7-10. For right pubis fracture 5mg 01/29 Inactiv e 2023 15702 85084 1 Every 4 hours as needed By [...] For Muscle spasms 175mg 2023 Active 2023 22248 04638 1 Every 6 hours as needed By Mouth False Cephalexin 500 mg capsule [generic] 500mg By Mouth Every 8 hours For UTI 500mg 01/30 Inactiv e 2023 46556 12852 1 Every 8 hours By Mouth False Aspirin 81 mg chewable tablet [generic] 81 mg By Mouth Once daily For AAA 81 mg 2023 Active 2023 86374 32585 6 Once daily By Mouth False Colace 100 mg capsule 100mg By Mouth Twice daily For constipation 100mg 2023 Active 2023 59736 69838 1 Twice daily By Mouth False Enoxaparin 300 mg/3 mL subcutaneou s solution [generic] 20mg Subcutaneous Once daily For anticoag. 20mg 2023 Active 2023 79563 85739 1 Once daily Subcut aneous False Losartan 50 mg tablet [generic] 50 By Mouth Once daily For HTN 50 2023 Active 2023 23164 46220 9 Once daily By Mouth False Miralax 17 gram/dose oral powder 17 gram By Mouth Once daily For contispation 17 gram 2023 Active 2023 43122 00244 0 Once daily By Mouth False Senna 8.6 mg tablet 2 tabs By Mouth Once daily For constipation 2 tabs 2023 Active 2023 77301 69079 1 Once daily By Mouth False Simvastatin 20 mg tablet [generic] 20 mg By Mouth Once daily For Hyperlipidemi a 20 mg 2023 Active 2023 40185 25493 0 Once daily By Mouth False Spiriva with HandiHaler 18 mcg and inhalation capsules 1 capsule Inhalation Once daily For COPD 1 capsule 2023 Active 2023 37271 33146 1 Once daily Inhala tion False Ventolin HFA 90 mcg/actuati on aerosol inhaler 2 puff Inhalation Every 4 hours as needed For COPD 2 puff 2023 Active 2023 11594 02822 0 Every 4 hours as needed Inhala tion False ProSource No Carb 15 gram-60 kcal/30 mL oral liquid 30ml By Mouth Twice daily For Protien supplement 30ml 01/30 Inactiv e 2023 39519 86847 5 Twice daily By Mouth False Albuterol sulfate 2.5 mg/3 mL (0.083 %) solution for nebulizatio n [generic] 3 ml Inhalation Every 6 hours as needed For wheezing 3 ml 2023 Active 2023 49773 06275 3 Every 6 hours as needed Inhala tion False Acetaminoph en 325 mg tablet [generic] 650 mg By Mouth Every 6 hours For Mild Pain 650 mg 01/29 Inactiv e 2023 14855 84334 0 Every 6 hours By Mouth False Tylenol 325 mg tablet 2 tabs By Mouth Every 4 hours as needed For Pain DO NOT EXCEED 3000 MG APAP/24 Hours 2 tabs 2023 Active 2023 40751 81091 0 Every 4 hours as needed By Mouth False Tylenol 325 mg tablet 2 tabs By Mouth Every 4 hours as needed For Fever >100 DO NOT EXCEED 3000 MG APAP/24 Hours 2 tabs 2023 Active 2023 44678 19908 0 Every 4 hours as needed By Mouth False Dulcolax (bisacodyl) 10 mg rectal suppository One Suppository per rectum PRN if Milk of Magnisia ineffective. Give on day 5 of no BM 1 sup 2023 Active 2023 94999 27622 1 Daily as needed Rectal False Fleet Enema 19 gram-7 gram/118 mL Administer per rectum PRN one time if dulcolax suppository not effective. Give on day 6 of no BM 1 2023 Active 2023 24876 79394 6 Daily as needed Rectal False Milk of Magnesia 400 mg/5 mL oral suspension [Magnesium hydroxide] PRN 30ml By Mouth Daily as needed for constipation one time daily if no BM, on day 4 of no BM (PRN refer to instructions) For Constipation 30 mL 2023 Active 2023 29250 41914 6 Daily as needed By Mouth False Oxycodone 5 mg tablet [generic] 01/29 Inactiv e 2023 76846 06557 1 Oxycodone 5 mg tablet [generic] 5mg By Mouth Every 4 hours as needed for severe pain for pain rate 7-10. For right pubis fracture 5mg 01/31 Inactiv e 2023 36819 21178 1 Every 4 hours as needed By Mouth False Cymbalta 30 mg capsule,del ayed release 30 mg By Mouth Once daily For Depression 30 mg 2023 Active 2023 47581 90996 0 Once daily By Mouth False Acetaminoph en 500 mg tablet [generic] 1000 mg By Mouth Twice daily not to exceed 3gm APAP in 24 hours For Pain 1000 mg 2023 Active 2023 84807 44770 8 Twice daily By Mouth False Healthshake 118 ml BID 118 ml By Mouth Twice daily Healthshake 118 ml BID For MNA of 7 - malnourished - please record total ml consumed 118 ml 2023 Active 2023 Twice daily By Mouth False Oxycodone 5 mg tablet [generic] 01/31 Inactiv e 2023 89878 24397 1 Oxycodone 5 mg tablet [generic] 5mg By Mouth Every 4 hours as needed for severe pain for pain rate 7-10. For right pubis fracture 5mg 02/01 Inactiv e 2023 89626 46390 1 Every 4 hours as needed By Mouth False Oxycodone 5 mg tablet [generic] 5mg By Mouth Every 4 hours as needed for severe pain 7-10 For right pubis fx 5mg 2023 Active 2023 90322 78965 1 Every 4 hours as needed By [...] Temperature SpO2 Blood Sugar Pulse Respirations 210 01895 7 78.00 mm[Hg] - Lying Down 186.00 mm[Hg] - Lying Down 109.80 NI 97.90 Forehead Scan 91.00 % 92.00/ min 18.00/min 210 28206 1 74.00 mm[Hg] - Lying Down 147.00 mm[Hg] - Lying Down 85.00/ min 211 89162 2 72.00 mm[Hg] - Sitting 138.00 mm[Hg] - Sitting 98.40 Tympanic 86.00/ min 18.00/min 89579 211 99663 2 59.00 mm[Hg] - Sitting 117.00 mm[Hg] - Sitting 98.20 Tympanic 99.00 % 81.00/ min 18.00/min 211 88041 5 69.00 mm[Hg] - Sitting 145.00 mm[Hg] - Sitting 211 67348 9 69.00 mm[Hg] - Sitting 145.00 mm[Hg] - Sitting 89770 211 79057 5 69.00 mm[Hg] - Sitting 145.00 mm[Hg] - Sitting 25226 211 00764 6 69.00 mm[Hg] - Sitting 31624 212 19656 7 59.00 mm[Hg] - Sitting 117.00 mm[Hg] - Sitting 98.20 Tympanic 81.00/ min 18.00/min 73256 212 94547 9 97.80 Tympanic 77417 212 75784 6 55.00 mm[Hg] - Sitting 109.00 mm[Hg] - Sitting 97.30 Tympanic 94.00 % 75.00/ min 18.00/min 79694 212 21067 5 68.00 mm[Hg] - Sitting 128.00 mm[Hg] - Sitting 97.80 Tympanic 80.00/ min 18.00/min 40025 212 89201 4 97.50 Tympanic 66654 212 34124 9 87423 212 11213 6 71.00 mm[Hg] - Sitting 117.00 mm[Hg] - Sitting 84455 213 31725 0 60.00 mm[Hg] - Sitting 116.00 mm[Hg] - Sitting 98.40 Forehead Scan 94.00 % 72.00/ min 16.00/min 33501 213 95412 7 70.00 mm[Hg] - Sitting 118.00 mm[Hg] - Sitting 98.00 Tympanic 82.00/ min 18.00/min 27039 213 68848 3 97.90 Tympanic 96980 213 52965 5 73.00 mm[Hg] - Lying Down 127.00 mm[Hg] - Lying Down 81029 213 48380 3 16235 214 91056 1 62.00 mm[Hg] - Sitting 127.00 mm[Hg] - Sitting 97.80 Tympanic 94.00 % 72.00/ min 16.00/min 78157 214 39154 4 59.00 mm[Hg] - Lying Down 113.00 mm[Hg] - Lying Down 97313 215 92643 0 56.00 mm[Hg] - Sitting 101.00 mm[Hg] - Sitting 97.80 Tympanic 95.00 % 71.00/ min 16.00/min 19291 215 36782 5 62 NI 10524 215 62657 8 57.00 mm[Hg] - Lying Down 113.00 mm[Hg] - Lying Down
--- OUTSIDE RECORDS SUMMARY | 2024-04-10 03:19 | External Medical Summary | Continuity Of Care Document ---
Author Name Unknown Address [address] [address] Organization [facility] () Care Team Providers Care Storekeeper Helper Name Role Phone DO Alonso Amy Primary Care Provider [phone] Allergies Allergy Reaction Start Date End Date [...] 3 0.1 mL 01/29 Inactiv e 2023 92569 91810 0 1 time Intrad ermal False Tubersol 5 tub. unit/0.1 mL intradermal injection solution [Tuberculin PPD] 0.1mL Intradermal 1 time For PPD 2nd Step Give 2nd Step PPD Day 1 and Read results Day 3 (schedule 7 days after 1st READ) 0.1mL 02/07 Active 2023 39873 24883 0 1 time Intrad ermal False Oxycodone 5 mg tablet [generic] 5mg By Mouth Every 4 hours as needed for severe pain for pain rate 7-10. For right pubis fracture 5mg 01/27 Inactiv e 2023 08730 07946 1 Every 4 hours as needed By Mouth False OXYCODONE 5 MG TABLET [GENERIC]IM MEDIATE RELEASE 2.5mg By Mouth Every 4 hours as needed tablet po for moderate pain, pain rate 4-6 on pain scale 1-10. For pain 2.5mg 01/27 Inactiv e 2023 Every 4 hours as needed By Mouth False Oxycodone 5 mg tablet [generic] 01/27 Inactiv e 2023 31454 06760 1 Oxycodone 5 mg tablet [generic] 5mg By Mouth Every 4 hours as needed for severe pain for pain rate 7-10. For right pubis fracture 5mg 01/29 Inactiv e 2023 09463 50714 1 Every 4 hours as needed By [...] For Muscle spasms 175mg 2023 Active 2023 24829 28016 1 Every 6 hours as needed By Mouth False Cephalexin 500 mg capsule [generic] 500mg By Mouth Every 8 hours For UTI 500mg 01/30 Inactiv e 2023 72077 41541 1 Every 8 hours By Mouth False Aspirin 81 mg chewable tablet [generic] 81 mg By Mouth Once daily For AAA 81 mg 2023 Active 2023 55459 41393 6 Once daily By Mouth False Colace 100 mg capsule 100mg By Mouth Twice daily For constipation 100mg 2023 Active 2023 14361 27317 1 Twice daily By Mouth False Enoxaparin 300 mg/3 mL subcutaneou s solution [generic] 20mg Subcutaneous Once daily For anticoag. 20mg 2023 Active 2023 67995 45934 1 Once daily Subcut aneous False Losartan 50 mg tablet [generic] 50 By Mouth Once daily For HTN 50 2023 Active 2023 12103 19720 9 Once daily By Mouth False Miralax 17 gram/dose oral powder 17 gram By Mouth Once daily For contispation 17 gram 2023 Active 2023 58946 63707 0 Once daily By Mouth False Senna 8.6 mg tablet 2 tabs By Mouth Once daily For constipation 2 tabs 2023 Active 2023 10594 11096 1 Once daily By Mouth False Simvastatin 20 mg tablet [generic] 20 mg By Mouth Once daily For Hyperlipidemi a 20 mg 2023 Active 2023 60867 97267 0 Once daily By Mouth False Spiriva with HandiHaler 18 mcg and inhalation capsules 1 capsule Inhalation Once daily For COPD 1 capsule 2023 Active 2023 53300 84704 1 Once daily Inhala tion False Ventolin HFA 90 mcg/actuati on aerosol inhaler 2 puff Inhalation Every 4 hours as needed For COPD 2 puff 2023 Active 2023 90601 17836 0 Every 4 hours as needed Inhala tion False ProSource No Carb 15 gram-60 kcal/30 mL oral liquid 30ml By Mouth Twice daily For Protien supplement 30ml 01/30 Inactiv e 2023 49234 99012 5 Twice daily By Mouth False Albuterol sulfate 2.5 mg/3 mL (0.083 %) solution for nebulizatio n [generic] 3 ml Inhalation Every 6 hours as needed For wheezing 3 ml 2023 Active 2023 16095 61990 3 Every 6 hours as needed Inhala tion False Acetaminoph en 325 mg tablet [generic] 650 mg By Mouth Every 6 hours For Mild Pain 650 mg 01/29 Inactiv e 2023 33101 61865 0 Every 6 hours By Mouth False Tylenol 325 mg tablet 2 tabs By Mouth Every 4 hours as needed For Pain DO NOT EXCEED 3000 MG APAP/24 Hours 2 tabs 2023 Active 2023 10716 76611 0 Every 4 hours as needed By Mouth False Tylenol 325 mg tablet 2 tabs By Mouth Every 4 hours as needed For Fever >100 DO NOT EXCEED 3000 MG APAP/24 Hours 2 tabs 2023 Active 2023 40094 74872 0 Every 4 hours as needed By Mouth False Dulcolax (bisacodyl) 10 mg rectal suppository One Suppository per rectum PRN if Milk of Magnisia ineffective. Give on day 5 of no BM 1 sup 2023 Active 2023 28387 77233 1 Daily as needed Rectal False Fleet Enema 19 gram-7 gram/118 mL Administer per rectum PRN one time if dulcolax suppository not effective. Give on day 6 of no BM 1 2023 Active 2023 05017 07303 6 Daily as needed Rectal False Milk of Magnesia 400 mg/5 mL oral suspension [Magnesium hydroxide] PRN 30ml By Mouth Daily as needed for constipation one time daily if no BM, on day 4 of no BM (PRN refer to instructions) For Constipation 30 mL 2023 Active 2023 74353 03390 6 Daily as needed By Mouth False Oxycodone 5 mg tablet [generic] 01/29 Inactiv e 2023 19162 19385 1 Oxycodone 5 mg tablet [generic] 5mg By Mouth Every 4 hours as needed for severe pain for pain rate 7-10. For right pubis fracture 5mg 01/31 Inactiv e 2023 02686 36822 1 Every 4 hours as needed By Mouth False Cymbalta 30 mg capsule,del ayed release 30 mg By Mouth Once daily For Depression 30 mg 02/04 Inactiv e 2023 55143 58723 0 Once daily By Mouth False Acetaminoph en 500 mg tablet [generic] 1000 mg By Mouth Twice daily not to exceed 3gm APAP in 24 hours For Pain 1000 mg 2023 Active 2023 57021 10529 8 Twice daily By Mouth False Healthshake 118 ml BID 118 ml By Mouth Twice daily Healthshake 118 ml BID For MNA of 7 - malnourished - please record total ml consumed 118 ml 2023 Active 2023 Twice daily By Mouth False Oxycodone 5 mg tablet [generic] 01/31 Inactiv e 2023 13249 05299 1 Oxycodone 5 mg tablet [generic] 5mg By Mouth Every 4 hours as needed for severe pain for pain rate 7-10. For right pubis fracture 5mg 02/01 Inactiv e 2023 91168 11755 1 Every 4 hours as needed By Mouth False Oxycodone 5 mg tablet [generic] 5mg By Mouth Every 4 hours as needed for severe pain 7-10 For right pubis fx 5mg 2023 Active 2023 37065 96542 1 Every 4 hours as needed By Mouth False Cymbalta 60 mg capsule,del ayed release 60mg Once daily depression 60mg 2023 Active 2023 89735 26010 0 Once daily By Mouth False Problems [...] Temperature SpO2 Blood Sugar Pulse Respirations 210 18424 7 78.00 mm[Hg] - Lying Down 186.00 mm[Hg] - Lying Down 109.80 NI 97.90 Forehead Scan 91.00 % 92.00/ min 18.00/min 210 73913 1 74.00 mm[Hg] - Lying Down 147.00 mm[Hg] - Lying Down 85.00/ min 211 87910 2 72.00 mm[Hg] - Sitting 138.00 mm[Hg] - Sitting 98.40 Tympanic 86.00/ min 18.00/min 211 95870 2 59.00 mm[Hg] - Sitting 117.00 mm[Hg] - Sitting 98.20 Tympanic 99.00 % 81.00/ min 18.00/min 211 71412 5 69.00 mm[Hg] - Sitting 145.00 mm[Hg] - Sitting 211 03700 9 69.00 mm[Hg] - Sitting 145.00 mm[Hg] - Sitting 211 97186 5 69.00 mm[Hg] - Sitting 145.00 mm[Hg] - Sitting 211 95470 6 69.00 mm[Hg] - Sitting 212 01295 7 59.00 mm[Hg] - Sitting 117.00 mm[Hg] - Sitting 98.20 Tympanic 81.00/ min 18.00/min 212 60306 9 97.80 Tympanic 212 22261 6 55.00 mm[Hg] - Sitting 109.00 mm[Hg] - Sitting 97.30 Tympanic 94.00 % 75.00/ min 18.00/min 212 65140 5 68.00 mm[Hg] - Sitting 128.00 mm[Hg] - Sitting 97.80 Tympanic 80.00/ min 18.00/min 51684 212 21419 4 97.50 Tympanic 72891 212 98208 9 13117 212 13094 6 71.00 mm[Hg] - Sitting 117.00 mm[Hg] - Sitting 35384 213 72932 0 60.00 mm[Hg] - Sitting 116.00 mm[Hg] - Sitting 98.40 Forehead Scan 94.00 % 72.00/ min 16.00/min 38835 213 46736 7 70.00 mm[Hg] - Sitting 118.00 mm[Hg] - Sitting 98.00 Tympanic 82.00/ min 18.00/min 87261 213 63874 3 97.90 Tympanic 26121 213 38467 5 73.00 mm[Hg] - Lying Down 127.00 mm[Hg] - Lying Down 43209 213 77923 3 12733 214 91550 1 62.00 mm[Hg] - Sitting 127.00 mm[Hg] - Sitting 97.80 Tympanic 94.00 % 72.00/ min 16.00/min 46267 214 35909 4 59.00 mm[Hg] - Lying Down 113.00 mm[Hg] - Lying Down 30788 215 39832 0 56.00 mm[Hg] - Sitting 101.00 mm[Hg] - Sitting 97.80 Tympanic 95.00 % 71.00/ min 16.00/min 58592 215 28135 5 62 NI [address]13 215 30800 8 57.00 mm[Hg] - Lying Down 113.00 mm[Hg] - Lying Down 29450 216 62995 3 71.00 mm[Hg] - Sitting 161.00 mm[Hg] - Sitting 98.10 Tympanic 93.00 % 81.00/ min 16.00/min 17476 216 53999 1 72.00 mm[Hg] - Sitting 115.00 mm[Hg] - Sitting 55484 217 66452 2 17017 217 46314 4 62.00 mm[Hg] - Sitting 112.00 mm[Hg] - Sitting 16373 217 78447 3 57.00 mm[Hg] - Sitting 114.00 mm[Hg] - Sitting 98.30 Tympanic 98.00 % 78.00/ min 20.00/min 72351 217 12848 4 62.00 mm[Hg] - Lying Down 111.00 mm[Hg] - Lying Down 32728 218 17931 0 70.00 mm[Hg] - Sitting 158.00 mm[Hg] - Sitting 97.60 Tympanic 97.00 % 68.00/ min 18.00/min 218 34786 5 65.00 mm[Hg] - Lying Down 113.00 mm[Hg] - Lying Down 219 80577 1 67.00 mm[Hg] - Sitting 112.00 mm[Hg] - Sitting
--- OUTSIDE RECORDS SUMMARY | 2024-04-10 03:19 | External Medical Summary | Continuity Of Care Document ---
Author Name Unknown Address [address] [address] Organization [facility] () Care Team Providers Care Business Mail Entry Clerk Name Role Phone DO Alonso Amy Primary Care Provider [phone] Allergies Allergy Reaction Start Date End Date [...] 3 0.1 mL 01/29 Inactiv e 2023 83209 32412 0 1 time Intrad ermal False Tubersol 5 tub. unit/0.1 mL intradermal injection solution [Tuberculin PPD] 0.1mL Intradermal 1 time For PPD 2nd Step Give 2nd Step PPD Day 1 and Read results Day 3 (schedule 7 days after 1st READ) 0.1mL 02/07 Active 2023 12586 64826 0 1 time Intrad ermal False Oxycodone 5 mg tablet [generic] 5mg By Mouth Every 4 hours as needed for severe pain for pain rate 7-10. For right pubis fracture 5mg 01/27 Inactiv e 2023 68395 29823 1 Every 4 hours as needed By Mouth False OXYCODONE 5 MG TABLET [GENERIC]IM MEDIATE RELEASE 2.5mg By Mouth Every 4 hours as needed tablet po for moderate pain, pain rate 4-6 on pain scale 1-10. For pain 2.5mg 01/27 Inactiv e 2023 Every 4 hours as needed By Mouth False Oxycodone 5 mg tablet [generic] 01/27 Inactiv e 2023 16890 77970 1 Oxycodone 5 mg tablet [generic] 5mg By Mouth Every 4 hours as needed for severe pain for pain rate 7-10. For right pubis fracture 5mg 01/29 Inactiv e 2023 13048 73380 1 Every 4 hours as needed By [...] For Muscle spasms 175mg 2023 Active 2023 61421 63512 1 Every 6 hours as needed By Mouth False Cephalexin 500 mg capsule [generic] 500mg By Mouth Every 8 hours For UTI 500mg 01/30 Inactiv e 2023 00548 10226 1 Every 8 hours By Mouth False Aspirin 81 mg chewable tablet [generic] 81 mg By Mouth Once daily For AAA 81 mg 2023 Active 2023 50061 33917 6 Once daily By Mouth False Colace 100 mg capsule 100mg By Mouth Twice daily For constipation 100mg 2023 Active 2023 29010 83300 1 Twice daily By Mouth False Enoxaparin 300 mg/3 mL subcutaneou s solution [generic] 20mg Subcutaneous Once daily For anticoag. 20mg 2023 Active 2023 00952 09890 1 Once daily Subcut aneous False Losartan 50 mg tablet [generic] 50 By Mouth Once daily For HTN 50 2023 Active 2023 67413 34874 9 Once daily By Mouth False Miralax 17 gram/dose oral powder 17 gram By Mouth Once daily For contispation 17 gram 2023 Active 2023 97274 17372 0 Once daily By Mouth False Senna 8.6 mg tablet 2 tabs By Mouth Once daily For constipation 2 tabs 2023 Active 2023 87739 89835 1 Once daily By Mouth False Simvastatin 20 mg tablet [generic] 20 mg By Mouth Once daily For Hyperlipidemi a 20 mg 2023 Active 2023 48694 43987 0 Once daily By Mouth False Spiriva with HandiHaler 18 mcg and inhalation capsules 1 capsule Inhalation Once daily For COPD 1 capsule 2023 Active 2023 87906 38919 1 Once daily Inhala tion False Ventolin HFA 90 mcg/actuati on aerosol inhaler 2 puff Inhalation Every 4 hours as needed For COPD 2 puff 2023 Active 2023 15194 40421 0 Every 4 hours as needed Inhala tion False ProSource No Carb 15 gram-60 kcal/30 mL oral liquid 30ml By Mouth Twice daily For Protien supplement 30ml 01/30 Inactiv e 2023 74041 84477 5 Twice daily By Mouth False Albuterol sulfate 2.5 mg/3 mL (0.083 %) solution for nebulizatio n [generic] 3 ml Inhalation Every 6 hours as needed For wheezing 3 ml 2023 Active 2023 21989 94531 3 Every 6 hours as needed Inhala tion False Acetaminoph en 325 mg tablet [generic] 650 mg By Mouth Every 6 hours For Mild Pain 650 mg 01/29 Inactiv e 2023 57014 66248 0 Every 6 hours By Mouth False Tylenol 325 mg tablet 2 tabs By Mouth Every 4 hours as needed For Pain DO NOT EXCEED 3000 MG APAP/24 Hours 2 tabs 2023 Active 2023 11142 97812 0 Every 4 hours as needed By Mouth False Tylenol 325 mg tablet 2 tabs By Mouth Every 4 hours as needed For Fever >100 DO NOT EXCEED 3000 MG APAP/24 Hours 2 tabs 2023 Active 2023 18055 44088 0 Every 4 hours as needed By Mouth False Dulcolax (bisacodyl) 10 mg rectal suppository One Suppository per rectum PRN if Milk of Magnisia ineffective. Give on day 5 of no BM 1 sup 2023 Active 2023 68291 09353 1 Daily as needed Rectal False Fleet Enema 19 gram-7 gram/118 mL Administer per rectum PRN one time if dulcolax suppository not effective. Give on day 6 of no BM 1 2023 Active 2023 82425 76349 6 Daily as needed Rectal False Milk of Magnesia 400 mg/5 mL oral suspension [Magnesium hydroxide] PRN 30ml By Mouth Daily as needed for constipation one time daily if no BM, on day 4 of no BM (PRN refer to instructions) For Constipation 30 mL 2023 Active 2023 84570 67387 6 Daily as needed By Mouth False Oxycodone 5 mg tablet [generic] 01/29 Inactiv e 2023 24710 67165 1 Oxycodone 5 mg tablet [generic] 5mg By Mouth Every 4 hours as needed for severe pain for pain rate 7-10. For right pubis fracture 5mg 01/31 Inactiv e 2023 36975 71852 1 Every 4 hours as needed By Mouth False Cymbalta 30 mg capsule,del ayed release 30 mg By Mouth Once daily For Depression 30 mg 02/04 Inactiv e 2023 11090 22039 0 Once daily By Mouth False Acetaminoph en 500 mg tablet [generic] 1000 mg By Mouth Twice daily not to exceed 3gm APAP in 24 hours For Pain 1000 mg 2023 Active 2023 90760 61482 8 Twice daily By Mouth False Healthshake 118 ml BID 118 ml By Mouth Twice daily Healthshake 118 ml BID For MNA of 7 - malnourished - please record total ml consumed 118 ml 2023 Active 2023 Twice daily By Mouth False Oxycodone 5 mg tablet [generic] 01/31 Inactiv e 2023 22499 69947 1 Oxycodone 5 mg tablet [generic] 5mg By Mouth Every 4 hours as needed for severe pain for pain rate 7-10. For right pubis fracture 5mg 02/01 Inactiv e 2023 18878 13922 1 Every 4 hours as needed By Mouth False Oxycodone 5 mg tablet [generic] 5mg By Mouth Every 4 hours as needed for severe pain 7-10 For right pubis fx 5mg 2023 Active 2023 68388 32826 1 Every 4 hours as needed By Mouth False Cymbalta 60 mg capsule,del ayed release 60mg Once daily depression 60mg 2023 Active 2023 27643 23712 0 Once daily By Mouth False Problems [...] Temperature SpO2 Blood Sugar Pulse Respirations 210 51810 7 78.00 mm[Hg] - Lying Down 186.00 mm[Hg] - Lying Down 109.80 NI 97.90 Forehead Scan 91.00 % 92.00/ min 18.00/min 210 67637 1 74.00 mm[Hg] - Lying Down 147.00 mm[Hg] - Lying Down 85.00/ min 211 33695 2 72.00 mm[Hg] - Sitting 138.00 mm[Hg] - Sitting 98.40 Tympanic 86.00/ min 18.00/min 211 48620 2 59.00 mm[Hg] - Sitting 117.00 mm[Hg] - Sitting 98.20 Tympanic 99.00 % 81.00/ min 18.00/min 211 50496 5 69.00 mm[Hg] - Sitting 145.00 mm[Hg] - Sitting 211 94828 9 69.00 mm[Hg] - Sitting 145.00 mm[Hg] - Sitting 211 47037 5 69.00 mm[Hg] - Sitting 145.00 mm[Hg] - Sitting 211 88007 6 69.00 mm[Hg] - Sitting 212 76982 7 59.00 mm[Hg] - Sitting 117.00 mm[Hg] - Sitting 98.20 Tympanic 81.00/ min 18.00/min 212 14260 9 97.80 Tympanic 212 25667 6 55.00 mm[Hg] - Sitting 109.00 mm[Hg] - Sitting 97.30 Tympanic 94.00 % 75.00/ min 18.00/min 212 54983 5 68.00 mm[Hg] - Sitting 128.00 mm[Hg] - Sitting 97.80 Tympanic 80.00/ min 18.00/min 35142 212 84715 4 97.50 Tympanic 98193 212 30622 9 90336 212 46165 6 71.00 mm[Hg] - Sitting 117.00 mm[Hg] - Sitting 47867 213 50498 0 60.00 mm[Hg] - Sitting 116.00 mm[Hg] - Sitting 98.40 Forehead Scan 94.00 % 72.00/ min 16.00/min 34666 213 95559 7 70.00 mm[Hg] - Sitting 118.00 mm[Hg] - Sitting 98.00 Tympanic 82.00/ min 18.00/min 98622 213 61836 3 97.90 Tympanic 44485 213 74286 5 73.00 mm[Hg] - Lying Down 127.00 mm[Hg] - Lying Down 33905 213 47778 3 06906 214 95406 1 62.00 mm[Hg] - Sitting 127.00 mm[Hg] - Sitting 97.80 Tympanic 94.00 % 72.00/ min 16.00/min 22290 214 00256 4 59.00 mm[Hg] - Lying Down 113.00 mm[Hg] - Lying Down 94650 215 20664 0 56.00 mm[Hg] - Sitting 101.00 mm[Hg] - Sitting 97.80 Tympanic 95.00 % 71.00/ min 16.00/min
--- OUTSIDE RECORDS SUMMARY | 2024-04-10 03:19 | External Medical Summary | Continuity Of Care Document ---
Author Name Unknown Address [address] [address] Organization [facility] () Care Team Providers Care Photoengraving Apprentice Name Role Phone DO Alonso Amy Primary Care Provider [phone] Allergies Allergy Reaction Start Date End Date [...] 3 0.1 mL 01/29 Inactiv e 2023 74814 79179 0 1 time Intrad ermal False Tubersol 5 tub. unit/0.1 mL intradermal injection solution [Tuberculin PPD] 0.1mL Intradermal 1 time For PPD 2nd Step Give 2nd Step PPD Day 1 and Read results Day 3 (schedule 7 days after 1st READ) 0.1mL 02/07 Active 2023 62240 06271 0 1 time Intrad ermal False Oxycodone 5 mg tablet [generic] 5mg By Mouth Every 4 hours as needed for severe pain for pain rate 7-10. For right pubis fracture 5mg 01/27 Inactiv e 2023 54411 37333 1 Every 4 hours as needed By Mouth False OXYCODONE 5 MG TABLET [GENERIC]IM MEDIATE RELEASE 2.5mg By Mouth Every 4 hours as needed tablet po for moderate pain, pain rate 4-6 on pain scale 1-10. For pain 2.5mg 01/27 Inactiv e 2023 Every 4 hours as needed By Mouth False Oxycodone 5 mg tablet [generic] 01/27 Inactiv e 2023 77343 66406 1 Oxycodone 5 mg tablet [generic] 5mg By Mouth Every 4 hours as needed for severe pain for pain rate 7-10. For right pubis fracture 5mg 01/29 Inactiv e 2023 98064 75074 1 Every 4 hours as needed By [...] For Muscle spasms 175mg 2023 Active 2023 80419 36740 1 Every 6 hours as needed By Mouth False Cephalexin 500 mg capsule [generic] 500mg By Mouth Every 8 hours For UTI 500mg 01/30 Inactiv e 2023 50881 55601 1 Every 8 hours By Mouth False Aspirin 81 mg chewable tablet [generic] 81 mg By Mouth Once daily For AAA 81 mg 2023 Active 2023 65331 14642 6 Once daily By Mouth False Colace 100 mg capsule 100mg By Mouth Twice daily For constipation 100mg 2023 Active 2023 23560 17121 1 Twice daily By Mouth False Enoxaparin 300 mg/3 mL subcutaneou s solution [generic] 20mg Subcutaneous Once daily For anticoag. 20mg 2023 Active 2023 46982 45545 1 Once daily Subcut aneous False Losartan 50 mg tablet [generic] 50 By Mouth Once daily For HTN 50 2023 Active 2023 70997 07222 9 Once daily By Mouth False Miralax 17 gram/dose oral powder 17 gram By Mouth Once daily For contispation 17 gram 2023 Active 2023 18252 52365 0 Once daily By Mouth False Senna 8.6 mg tablet 2 tabs By Mouth Once daily For constipation 2 tabs 2023 Active 2023 71414 78743 1 Once daily By Mouth False Simvastatin 20 mg tablet [generic] 20 mg By Mouth Once daily For Hyperlipidemi a 20 mg 2023 Active 2023 98560 08057 0 Once daily By Mouth False Spiriva with HandiHaler 18 mcg and inhalation capsules 1 capsule Inhalation Once daily For COPD 1 capsule 2023 Active 2023 04503 42743 1 Once daily Inhala tion False Ventolin HFA 90 mcg/actuati on aerosol inhaler 2 puff Inhalation Every 4 hours as needed For COPD 2 puff 2023 Active 2023 87862 81007 0 Every 4 hours as needed Inhala tion False ProSource No Carb 15 gram-60 kcal/30 mL oral liquid 30ml By Mouth Twice daily For Protien supplement 30ml 01/30 Inactiv e 2023 15512 02226 5 Twice daily By Mouth False Albuterol sulfate 2.5 mg/3 mL (0.083 %) solution for nebulizatio n [generic] 3 ml Inhalation Every 6 hours as needed For wheezing 3 ml 2023 Active 2023 28421 01345 3 Every 6 hours as needed Inhala tion False Acetaminoph en 325 mg tablet [generic] 650 mg By Mouth Every 6 hours For Mild Pain 650 mg 01/29 Inactiv e 2023 27318 75353 0 Every 6 hours By Mouth False Tylenol 325 mg tablet 2 tabs By Mouth Every 4 hours as needed For Pain DO NOT EXCEED 3000 MG APAP/24 Hours 2 tabs 2023 Active 2023 01994 17329 0 Every 4 hours as needed By Mouth False Tylenol 325 mg tablet 2 tabs By Mouth Every 4 hours as needed For Fever >100 DO NOT EXCEED 3000 MG APAP/24 Hours 2 tabs 2023 Active 2023 50082 37940 0 Every 4 hours as needed By Mouth False Dulcolax (bisacodyl) 10 mg rectal suppository One Suppository per rectum PRN if Milk of Magnisia ineffective. Give on day 5 of no BM 1 sup 2023 Active 2023 04260 67111 1 Daily as needed Rectal False Fleet Enema 19 gram-7 gram/118 mL Administer per rectum PRN one time if dulcolax suppository not effective. Give on day 6 of no BM 1 2023 Active 2023 03617 43392 6 Daily as needed Rectal False Milk of Magnesia 400 mg/5 mL oral suspension [Magnesium hydroxide] PRN 30ml By Mouth Daily as needed for constipation one time daily if no BM, on day 4 of no BM (PRN refer to instructions) For Constipation 30 mL 2023 Active 2023 60428 47648 6 Daily as needed By Mouth False Oxycodone 5 mg tablet [generic] 01/29 Inactiv e 2023 15068 90639 1 Oxycodone 5 mg tablet [generic] 5mg By Mouth Every 4 hours as needed for severe pain for pain rate 7-10. For right pubis fracture 5mg 01/31 Inactiv e 2023 36904 17718 1 Every 4 hours as needed By Mouth False Cymbalta 30 mg capsule,del ayed release 30 mg By Mouth Once daily For Depression 30 mg 2023 Active 2023 81579 59902 0 Once daily By Mouth False Acetaminoph en 500 mg tablet [generic] 1000 mg By Mouth Twice daily not to exceed 3gm APAP in 24 hours For Pain 1000 mg 2023 Active 2023 63993 88775 8 Twice daily By Mouth False Healthshake 118 ml BID 118 ml By Mouth Twice daily Healthshake 118 ml BID For MNA of 7 - malnourished - please record total ml consumed 118 ml 2023 Active 2023 Twice daily By Mouth False Oxycodone 5 mg tablet [generic] 01/31 Inactiv e 2023 14079 02502 1 Oxycodone 5 mg tablet [generic] 5mg By Mouth Every 4 hours as needed for severe pain for pain rate 7-10. For right pubis fracture 5mg 02/01 Inactiv e 2023 67871 22083 1 Every 4 hours as needed By Mouth False Oxycodone 5 mg tablet [generic] 5mg By Mouth Every 4 hours as needed for severe pain 7-10 For right pubis fx 5mg 2023 Active 2023 95636 83486 1 Every 4 hours as needed By [...] Temperature SpO2 Blood Sugar Pulse Respirations 210 28341 7 78.00 mm[Hg] - Lying Down 186.00 mm[Hg] - Lying Down 109.80 NI 97.90 Forehead Scan 91.00 % 92.00/ min 18.00/min 210 04656 1 74.00 mm[Hg] - Lying Down 147.00 mm[Hg] - Lying Down 85.00/ min 211 54735 2 72.00 mm[Hg] - Sitting 138.00 mm[Hg] - Sitting 98.40 Tympanic 86.00/ min 18.00/min 68524 211 40552 2 59.00 mm[Hg] - Sitting 117.00 mm[Hg] - Sitting 98.20 Tympanic 99.00 % 81.00/ min 18.00/min 211 80031 5 69.00 mm[Hg] - Sitting 145.00 mm[Hg] - Sitting 211 39004 9 69.00 mm[Hg] - Sitting 145.00 mm[Hg] - Sitting 31047 211 65329 5 69.00 mm[Hg] - Sitting 145.00 mm[Hg] - Sitting 67510 211 44381 6 69.00 mm[Hg] - Sitting 79191 212 25157 7 59.00 mm[Hg] - Sitting 117.00 mm[Hg] - Sitting 98.20 Tympanic 81.00/ min 18.00/min 57367 212 49456 9 97.80 Tympanic 09633 212 98083 6 55.00 mm[Hg] - Sitting 109.00 mm[Hg] - Sitting 97.30 Tympanic 94.00 % 75.00/ min 18.00/min 11449 212 80181 5 68.00 mm[Hg] - Sitting 128.00 mm[Hg] - Sitting 97.80 Tympanic 80.00/ min 18.00/min 28239 212 77471 4 97.50 Tympanic 26938 212 06034 9 25825 212 86162 6 71.00 mm[Hg] - Sitting 117.00 mm[Hg] - Sitting 40922 213 90510 0 60.00 mm[Hg] - Sitting 116.00 mm[Hg] - Sitting 98.40 Forehead Scan 94.00 % 72.00/ min 16.00/min 32145 213 99395 7 70.00 mm[Hg] - Sitting 118.00 mm[Hg] - Sitting 98.00 Tympanic 82.00/ min 18.00/min 71110 213 48349 3 97.90 Tympanic 61854 213 74058 5 73.00 mm[Hg] - Lying Down 127.00 mm[Hg] - Lying Down 97539 213 53797 3 50384 214 77056 1 62.00 mm[Hg] - Sitting 127.00 mm[Hg] - Sitting 97.80 Tympanic 94.00 % 72.00/ min 16.00/min 88909 214 57130 4 59.00 mm[Hg] - Lying Down 113.00 mm[Hg] - Lying Down 67006 215 56717 0 56.00 mm[Hg] - Sitting 101.00 mm[Hg] - Sitting 97.80 Tympanic 95.00 % 71.00/ min 16.00/min 52588 215 28819 5 62 NI [id number] 215 51663 8 57.00 mm[Hg] - Lying Down 113.00 mm[Hg] - Lying Down 30595 216 01716 3 71.00 mm[Hg] - Sitting 161.00 mm[Hg] - Sitting 98.10 Tympanic 93.00 % 81.00/ min 16.00/min 30329 216 89342 1 72.00 mm[Hg] - Sitting 115.00 mm[Hg] - Sitting 76835 217 76401 2 19913 217 00646 4 62.00 mm[Hg] - Sitting 112.00 mm[Hg] - Sitting 93776 217 09651 3 57.00 mm[Hg] - Sitting 114.00 mm[Hg] - Sitting 98.30 Tympanic 98.00 % 78.00/ min 20.00/min 25264 217 61589 4 62.00 mm[Hg] - Lying Down 111.00 mm[Hg] - Lying Down 64886 218 70782 5 65.00 mm[Hg] - Lying Down 113.00 mm[Hg] - Lying Down
--- OUTSIDE RECORDS SUMMARY | 2024-04-10 03:19 | External Medical Summary | Continuity Of Care Document ---
Author Name Unknown Address [address] [address] Organization [facility] () Care Team Providers Care Finance Admin Name Role Phone DO Alonso Amy Primary Care Provider [phone] Allergies Allergy Reaction Start Date End Date [...] 3 0.1 mL 01/29 Inactiv e 2023 16509 09940 0 1 time Intrad ermal False Tubersol 5 tub. unit/0.1 mL intradermal injection solution [Tuberculin PPD] 0.1mL Intradermal 1 time For PPD 2nd Step Give 2nd Step PPD Day 1 and Read results Day 3 (schedule 7 days after 1st READ) 0.1mL 02/07 Active 2023 26759 38410 0 1 time Intrad ermal False Oxycodone 5 mg tablet [generic] 5mg By Mouth Every 4 hours as needed for severe pain for pain rate 7-10. For right pubis fracture 5mg 01/27 Inactiv e 2023 90399 08049 1 Every 4 hours as needed By Mouth False OXYCODONE 5 MG TABLET [GENERIC]IM MEDIATE RELEASE 2.5mg By Mouth Every 4 hours as needed tablet po for moderate pain, pain rate 4-6 on pain scale 1-10. For pain 2.5mg 01/27 Inactiv e 2023 Every 4 hours as needed By Mouth False Oxycodone 5 mg tablet [generic] 01/27 Inactiv e 2023 88900 19596 1 Oxycodone 5 mg tablet [generic] 5mg By Mouth Every 4 hours as needed for severe pain for pain rate 7-10. For right pubis fracture 5mg 01/29 Inactiv e 2023 24384 33584 1 Every 4 hours as needed By [...] For Muscle spasms 175mg 2023 Active 2023 45763 60987 1 Every 6 hours as needed By Mouth False Cephalexin 500 mg capsule [generic] 500mg By Mouth Every 8 hours For UTI 500mg 01/30 Inactiv e 2023 55988 15894 1 Every 8 hours By Mouth False Aspirin 81 mg chewable tablet [generic] 81 mg By Mouth Once daily For AAA 81 mg 2023 Active 2023 01883 28833 6 Once daily By Mouth False Colace 100 mg capsule 100mg By Mouth Twice daily For constipation 100mg 2023 Active 2023 63681 01296 1 Twice daily By Mouth False Enoxaparin 300 mg/3 mL subcutaneou s solution [generic] 20mg Subcutaneous Once daily For anticoag. 20mg 2023 Active 2023 17498 76346 1 Once daily Subcut aneous False Losartan 50 mg tablet [generic] 50 By Mouth Once daily For HTN 50 2023 Active 2023 28767 68103 9 Once daily By Mouth False Miralax 17 gram/dose oral powder 17 gram By Mouth Once daily For contispation 17 gram 2023 Active 2023 86173 66233 0 Once daily By Mouth False Senna 8.6 mg tablet 2 tabs By Mouth Once daily For constipation 2 tabs 2023 Active 2023 85340 95512 1 Once daily By Mouth False Simvastatin 20 mg tablet [generic] 20 mg By Mouth Once daily For Hyperlipidemi a 20 mg 2023 Active 2023 51139 56163 0 Once daily By Mouth False Spiriva with HandiHaler 18 mcg and inhalation capsules 1 capsule Inhalation Once daily For COPD 1 capsule 2023 Active 2023 13559 39919 1 Once daily Inhala tion False Ventolin HFA 90 mcg/actuati on aerosol inhaler 2 puff Inhalation Every 4 hours as needed For COPD 2 puff 2023 Active 2023 31203 02001 0 Every 4 hours as needed Inhala tion False ProSource No Carb 15 gram-60 kcal/30 mL oral liquid 30ml By Mouth Twice daily For Protien supplement 30ml 01/30 Inactiv e 2023 55953 22471 5 Twice daily By Mouth False Albuterol sulfate 2.5 mg/3 mL (0.083 %) solution for nebulizatio n [generic] 3 ml Inhalation Every 6 hours as needed For wheezing 3 ml 2023 Active 2023 58185 29108 3 Every 6 hours as needed Inhala tion False Acetaminoph en 325 mg tablet [generic] 650 mg By Mouth Every 6 hours For Mild Pain 650 mg 01/29 Inactiv e 2023 15245 34536 0 Every 6 hours By Mouth False Tylenol 325 mg tablet 2 tabs By Mouth Every 4 hours as needed For Pain DO NOT EXCEED 3000 MG APAP/24 Hours 2 tabs 2023 Active 2023 49345 81061 0 Every 4 hours as needed By Mouth False Tylenol 325 mg tablet 2 tabs By Mouth Every 4 hours as needed For Fever >100 DO NOT EXCEED 3000 MG APAP/24 Hours 2 tabs 2023 Active 2023 96309 66903 0 Every 4 hours as needed By Mouth False Dulcolax (bisacodyl) 10 mg rectal suppository One Suppository per rectum PRN if Milk of Magnisia ineffective. Give on day 5 of no BM 1 sup 2023 Active 2023 12793 10570 1 Daily as needed Rectal False Fleet Enema 19 gram-7 gram/118 mL Administer per rectum PRN one time if dulcolax suppository not effective. Give on day 6 of no BM 1 2023 Active 2023 60657 13978 6 Daily as needed Rectal False Milk of Magnesia 400 mg/5 mL oral suspension [Magnesium hydroxide] PRN 30ml By Mouth Daily as needed for constipation one time daily if no BM, on day 4 of no BM (PRN refer to instructions) For Constipation 30 mL 2023 Active 2023 80873 54047 6 Daily as needed By Mouth False Oxycodone 5 mg tablet [generic] 01/29 Inactiv e 2023 78077 50837 1 Oxycodone 5 mg tablet [generic] 5mg By Mouth Every 4 hours as needed for severe pain for pain rate 7-10. For right pubis fracture 5mg 01/31 Inactiv e 2023 70438 62708 1 Every 4 hours as needed By Mouth False Cymbalta 30 mg capsule,del ayed release 30 mg By Mouth Once daily For Depression 30 mg 02/04 Inactiv e 2023 93449 02362 0 Once daily By Mouth False Acetaminoph en 500 mg tablet [generic] 1000 mg By Mouth Twice daily not to exceed 3gm APAP in 24 hours For Pain 1000 mg 2023 Active 2023 00951 36964 8 Twice daily By Mouth False Healthshake 118 ml BID 118 ml By Mouth Twice daily Healthshake 118 ml BID For MNA of 7 - malnourished - please record total ml consumed 118 ml 2023 Active 2023 Twice daily By Mouth False Oxycodone 5 mg tablet [generic] 01/31 Inactiv e 2023 39371 00220 1 Oxycodone 5 mg tablet [generic] 5mg By Mouth Every 4 hours as needed for severe pain for pain rate 7-10. For right pubis fracture 5mg 02/01 Inactiv e 2023 55221 85016 1 Every 4 hours as needed By Mouth False Oxycodone 5 mg tablet [generic] 5mg By Mouth Every 4 hours as needed for severe pain 7-10 For right pubis fx 5mg 2023 Active 2023 55807 67347 1 Every 4 hours as needed By Mouth False Cymbalta 60 mg capsule,del ayed release 60mg Once daily depression 60mg 2023 Active 2023 66894 90884 0 Once daily By Mouth False Problems [...] Temperature SpO2 Blood Sugar Pulse Respirations 210 56155 7 78.00 mm[Hg] - Lying Down 186.00 mm[Hg] - Lying Down 109.80 NI 97.90 Forehead Scan 91.00 % 92.00/ min 18.00/min 210 48581 1 74.00 mm[Hg] - Lying Down 147.00 mm[Hg] - Lying Down 85.00/ min 211 44780 2 72.00 mm[Hg] - Sitting 138.00 mm[Hg] - Sitting 98.40 Tympanic 86.00/ min 18.00/min 211 34987 2 59.00 mm[Hg] - Sitting 117.00 mm[Hg] - Sitting 98.20 Tympanic 99.00 % 81.00/ min 18.00/min 211 95013 5 69.00 mm[Hg] - Sitting 145.00 mm[Hg] - Sitting 211 35605 9 69.00 mm[Hg] - Sitting 145.00 mm[Hg] - Sitting 211 50181 5 69.00 mm[Hg] - Sitting 145.00 mm[Hg] - Sitting 211 73609 6 69.00 mm[Hg] - Sitting 212 10451 7 59.00 mm[Hg] - Sitting 117.00 mm[Hg] - Sitting 98.20 Tympanic 81.00/ min 18.00/min 212 21571 9 97.80 Tympanic 212 13096 6 55.00 mm[Hg] - Sitting 109.00 mm[Hg] - Sitting 97.30 Tympanic 94.00 % 75.00/ min 18.00/min 212 32498 5 68.00 mm[Hg] - Sitting 128.00 mm[Hg] - Sitting 97.80 Tympanic 80.00/ min 18.00/min 85298 212 65897 4 97.50 Tympanic 05436 212 98221 9 12117 212 21716 6 71.00 mm[Hg] - Sitting 117.00 mm[Hg] - Sitting 55005 213 38877 0 60.00 mm[Hg] - Sitting 116.00 mm[Hg] - Sitting 98.40 Forehead Scan 94.00 % 72.00/ min 16.00/min 50243 213 88596 7 70.00 mm[Hg] - Sitting 118.00 mm[Hg] - Sitting 98.00 Tympanic 82.00/ min 18.00/min 61900 213 12700 3 97.90 Tympanic 25595 213 85792 5 73.00 mm[Hg] - Lying Down 127.00 mm[Hg] - Lying Down 97176 213 91166 3 48163 214 46002 1 62.00 mm[Hg] - Sitting 127.00 mm[Hg] - Sitting 97.80 Tympanic 94.00 % 72.00/ min 16.00/min 50125 214 06359 4 59.00 mm[Hg] - Lying Down 113.00 mm[Hg] - Lying Down 95325 215 68121 0 56.00 mm[Hg] - Sitting 101.00 mm[Hg] - Sitting 97.80 Tympanic 95.00 % 71.00/ min 16.00/min 72271 215 55606 5 62 NI [id number] 215 81943 8 57.00 mm[Hg] - Lying Down 113.00 mm[Hg] - Lying Down
--- OUTSIDE RECORDS SUMMARY | 2024-04-10 03:20 | External Medical Summary | Continuity Of Care Document ---
Author Name Unknown Address [address] [address] Organization [facility] () Care Team Providers Care Design Architect Name Role Phone DO Alonso Amy Primary Care Provider [phone] Allergies Allergy Reaction Start Date End Date [...] 3 0.1 mL 01/29 Inactiv e 2023 65920 45533 0 1 time Intrad ermal False Tubersol 5 tub. unit/0.1 mL intradermal injection solution [Tuberculin PPD] 0.1mL Intradermal 1 time For PPD 2nd Step Give 2nd Step PPD Day 1 and Read results Day 3 (schedule 7 days after 1st READ) 0.1mL 02/07 Active 2023 79290 76471 0 1 time Intrad ermal False Oxycodone 5 mg tablet [generic] 5mg By Mouth Every 4 hours as needed for severe pain for pain rate 7-10. For right pubis fracture 5mg 01/27 Inactiv e 2023 66884 56481 1 Every 4 hours as needed By Mouth False OXYCODONE 5 MG TABLET [GENERIC]IM MEDIATE RELEASE 2.5mg By Mouth Every 4 hours as needed tablet po for moderate pain, pain rate 4-6 on pain scale 1-10. For pain 2.5mg 01/27 Inactiv e 2023 Every 4 hours as needed By Mouth False Oxycodone 5 mg tablet [generic] 01/27 Inactiv e 2023 73977 71586 1 Oxycodone 5 mg tablet [generic] 5mg By Mouth Every 4 hours as needed for severe pain for pain rate 7-10. For right pubis fracture 5mg 01/29 Inactiv e 2023 39114 73865 1 Every 4 hours as needed By [...] For Muscle spasms 175mg 2023 Active 2023 45159 82227 1 Every 6 hours as needed By Mouth False Cephalexin 500 mg capsule [generic] 500mg By Mouth Every 8 hours For UTI 500mg 01/30 Inactiv e 2023 85864 70738 1 Every 8 hours By Mouth False Aspirin 81 mg chewable tablet [generic] 81 mg By Mouth Once daily For AAA 81 mg 2023 Active 2023 13628 72767 6 Once daily By Mouth False Colace 100 mg capsule 100mg By Mouth Twice daily For constipation 100mg 2023 Active 2023 51226 20406 1 Twice daily By Mouth False Enoxaparin 300 mg/3 mL subcutaneou s solution [generic] 20mg Subcutaneous Once daily For anticoag. 20mg 2023 Active 2023 52931 80823 1 Once daily Subcut aneous False Losartan 50 mg tablet [generic] 50 By Mouth Once daily For HTN 50 2023 Active 2023 43214 37614 9 Once daily By Mouth False Miralax 17 gram/dose oral powder 17 gram By Mouth Once daily For contispation 17 gram 2023 Active 2023 71873 24279 0 Once daily By Mouth False Senna 8.6 mg tablet 2 tabs By Mouth Once daily For constipation 2 tabs 2023 Active 2023 79707 02438 1 Once daily By Mouth False Simvastatin 20 mg tablet [generic] 20 mg By Mouth Once daily For Hyperlipidemi a 20 mg 2023 Active 2023 68287 33733 0 Once daily By Mouth False Spiriva with HandiHaler 18 mcg and inhalation capsules 1 capsule Inhalation Once daily For COPD 1 capsule 2023 Active 2023 64883 76170 1 Once daily Inhala tion False Ventolin HFA 90 mcg/actuati on aerosol inhaler 2 puff Inhalation Every 4 hours as needed For COPD 2 puff 2023 Active 2023 19468 56292 0 Every 4 hours as needed Inhala tion False ProSource No Carb 15 gram-60 kcal/30 mL oral liquid 30ml By Mouth Twice daily For Protien supplement 30ml 01/30 Inactiv e 2023 96204 53700 5 Twice daily By Mouth False Albuterol sulfate 2.5 mg/3 mL (0.083 %) solution for nebulizatio n [generic] 3 ml Inhalation Every 6 hours as needed For wheezing 3 ml 2023 Active 2023 09588 20069 3 Every 6 hours as needed Inhala tion False Acetaminoph en 325 mg tablet [generic] 650 mg By Mouth Every 6 hours For Mild Pain 650 mg 01/29 Inactiv e 2023 04923 03493 0 Every 6 hours By Mouth False Tylenol 325 mg tablet 2 tabs By Mouth Every 4 hours as needed For Pain DO NOT EXCEED 3000 MG APAP/24 Hours 2 tabs 2023 Active 2023 33596 87658 0 Every 4 hours as needed By Mouth False Tylenol 325 mg tablet 2 tabs By Mouth Every 4 hours as needed For Fever >100 DO NOT EXCEED 3000 MG APAP/24 Hours 2 tabs 2023 Active 2023 93322 33528 0 Every 4 hours as needed By Mouth False Dulcolax (bisacodyl) 10 mg rectal suppository One Suppository per rectum PRN if Milk of Magnisia ineffective. Give on day 5 of no BM 1 sup 2023 Active 2023 76796 25677 1 Daily as needed Rectal False Fleet Enema 19 gram-7 gram/118 mL Administer per rectum PRN one time if dulcolax suppository not effective. Give on day 6 of no BM 1 2023 Active 2023 05353 99146 6 Daily as needed Rectal False Milk of Magnesia 400 mg/5 mL oral suspension [Magnesium hydroxide] PRN 30ml By Mouth Daily as needed for constipation one time daily if no BM, on day 4 of no BM (PRN refer to instructions) For Constipation 30 mL 2023 Active 2023 34272 45376 6 Daily as needed By Mouth False Oxycodone 5 mg tablet [generic] 01/29 Inactiv e 2023 83777 91565 1 Oxycodone 5 mg tablet [generic] 5mg By Mouth Every 4 hours as needed for severe pain for pain rate 7-10. For right pubis fracture 5mg 01/31 Inactiv e 2023 90414 89676 1 Every 4 hours as needed By Mouth False Cymbalta 30 mg capsule,del ayed release 30 mg By Mouth Once daily For Depression 30 mg 2023 Active 2023 86013 02158 0 Once daily By Mouth False Acetaminoph en 500 mg tablet [generic] 1000 mg By Mouth Twice daily not to exceed 3gm APAP in 24 hours For Pain 1000 mg 2023 Active 2023 81195 11626 8 Twice daily By Mouth False Healthshake 118 ml BID 118 ml By Mouth Twice daily Healthshake 118 ml BID For MNA of 7 - malnourished - please record total ml consumed 118 ml 2023 Active 2023 Twice daily By Mouth False Oxycodone 5 mg tablet [generic] 01/31 Inactiv e 2023 22137 61249 1 Oxycodone 5 mg tablet [generic] 5mg By Mouth Every 4 hours as needed for severe pain for pain rate 7-10. For right pubis fracture 5mg 2023 Active 2023 18467 53506 1 Every 4 hours as needed By [...] Temperature SpO2 Blood Sugar Pulse Respirations 210 12913 7 78.00 mm[Hg] - Lying Down 186.00 mm[Hg] - Lying Down 109.80 NI 97.90 Forehead Scan 91.00 % 92.00/ min 18.00/min 210 62961 1 74.00 mm[Hg] - Lying Down 147.00 mm[Hg] - Lying Down 85.00/ min 211 12091 2 72.00 mm[Hg] - Sitting 138.00 mm[Hg] - Sitting 98.40 Tympanic 86.00/ min 18.00/min 211 05712 2 59.00 mm[Hg] - Sitting 117.00 mm[Hg] - Sitting 98.20 Tympanic 99.00 % 81.00/ min 18.00/min 211 13590 5 69.00 mm[Hg] - Sitting 145.00 mm[Hg] - Sitting 211 73503 9 69.00 mm[Hg] - Sitting 145.00 mm[Hg] - Sitting 211 29510 5 69.00 mm[Hg] - Sitting 145.00 mm[Hg] - Sitting 211 19955 6 69.00 mm[Hg] - Sitting 212 29090 7 59.00 mm[Hg] - Sitting 117.00 mm[Hg] - Sitting 98.20 Tympanic 81.00/ min 18.00/min 16203 212 33880 9 97.80 Tympanic 212 60633 6 55.00 mm[Hg] - Sitting 109.00 mm[Hg] - Sitting 97.30 Tympanic 94.00 % 75.00/ min 18.00/min 98373 212 05237 5 68.00 mm[Hg] - Sitting 128.00 mm[Hg] - Sitting 97.80 Tympanic 80.00/ min 18.00/min 83616 212 45532 4 97.50 Tympanic 87035 212 50348 9 50830 212 70251 6 71.00 mm[Hg] - Sitting 117.00 mm[Hg] - Sitting 213 87168 0 60.00 mm[Hg] - Sitting 116.00 mm[Hg] - Sitting 98.40 Forehead Scan 94.00 % 72.00/ min 16.00/min 213 65772 7 70.00 mm[Hg] - Sitting 118.00 mm[Hg] - Sitting 98.00 Tympanic 82.00/ min 18.00/min 21521 213 48891 3 97.90 Tympanic 40073 213 01044 5 73.00 mm[Hg] - Lying Down 127.00 mm[Hg] - Lying Down 10546 213 08015 3 09151 214 89691 1 62.00 mm[Hg] - Sitting 127.00 mm[Hg] - Sitting 97.80 Tympanic 94.00 % 72.00/ min 16.00/min 54355 214 24733 4 59.00 mm[Hg] - Lying Down 113.00 mm[Hg] - Lying Down 81750 215 54297 0 56.00 mm[Hg] - Sitting 101.00 mm[Hg] - Sitting 97.80 Tympanic 95.00 % 71.00/ min 16.00/min 04151 215 62655 8 57.00 mm[Hg] - Lying Down 113.00 mm[Hg] - Lying Down
--- OUTSIDE RECORDS SUMMARY | 2024-04-10 03:20 | External Medical Summary | Continuity Of Care Document ---
Author Name Unknown Address [address] [address] Organization [facility] () Care Team Providers Care Raw Stock Machine Feeder Name Role Phone DO Alonso Amy Primary Care Provider [phone] Allergies Allergy Reaction Start Date End Date [...] 3 0.1 mL 01/29 Inactiv e 2023 51348 50268 0 1 time Intrad ermal False Tubersol 5 tub. unit/0.1 mL intradermal injection solution [Tuberculin PPD] 0.1mL Intradermal 1 time For PPD 2nd Step Give 2nd Step PPD Day 1 and Read results Day 3 (schedule 7 days after 1st READ) 0.1mL 02/07 Active 2023 26082 85536 0 1 time Intrad ermal False Oxycodone 5 mg tablet [generic] 5mg By Mouth Every 4 hours as needed for severe pain for pain rate 7-10. For right pubis fracture 5mg 01/27 Inactiv e 2023 42469 24079 1 Every 4 hours as needed By Mouth False OXYCODONE 5 MG TABLET [GENERIC]IM MEDIATE RELEASE 2.5mg By Mouth Every 4 hours as needed tablet po for moderate pain, pain rate 4-6 on pain scale 1-10. For pain 2.5mg 01/27 Inactiv e 2023 Every 4 hours as needed By Mouth False Oxycodone 5 mg tablet [generic] 01/27 Inactiv e 2023 14908 86452 1 Oxycodone 5 mg tablet [generic] 5mg By Mouth Every 4 hours as needed for severe pain for pain rate 7-10. For right pubis fracture 5mg 01/29 Inactiv e 2023 96853 37571 1 Every 4 hours as needed By [...] For Muscle spasms 175mg 2023 Active 2023 01404 31015 1 Every 6 hours as needed By Mouth False Cephalexin 500 mg capsule [generic] 500mg By Mouth Every 8 hours For UTI 500mg 01/30 Inactiv e 2023 83807 54057 1 Every 8 hours By Mouth False Aspirin 81 mg chewable tablet [generic] 81 mg By Mouth Once daily For AAA 81 mg 2023 Active 2023 97414 38401 6 Once daily By Mouth False Colace 100 mg capsule 100mg By Mouth Twice daily For constipation 100mg 2023 Active 2023 97168 18473 1 Twice daily By Mouth False Enoxaparin 300 mg/3 mL subcutaneou s solution [generic] 20mg Subcutaneous Once daily For anticoag. 20mg 2023 Active 2023 32308 99601 1 Once daily Subcut aneous False Losartan 50 mg tablet [generic] 50 By Mouth Once daily For HTN 50 2023 Active 2023 29734 77296 9 Once daily By Mouth False Miralax 17 gram/dose oral powder 17 gram By Mouth Once daily For contispation 17 gram 2023 Active 2023 05404 94580 0 Once daily By Mouth False Senna 8.6 mg tablet 2 tabs By Mouth Once daily For constipation 2 tabs 2023 Active 2023 13815 99361 1 Once daily By Mouth False Simvastatin 20 mg tablet [generic] 20 mg By Mouth Once daily For Hyperlipidemi a 20 mg 2023 Active 2023 22194 01306 0 Once daily By Mouth False Spiriva with HandiHaler 18 mcg and inhalation capsules 1 capsule Inhalation Once daily For COPD 1 capsule 2023 Active 2023 16101 09731 1 Once daily Inhala tion False Ventolin HFA 90 mcg/actuati on aerosol inhaler 2 puff Inhalation Every 4 hours as needed For COPD 2 puff 2023 Active 2023 49228 97390 0 Every 4 hours as needed Inhala tion False ProSource No Carb 15 gram-60 kcal/30 mL oral liquid 30ml By Mouth Twice daily For Protien supplement 30ml 01/30 Inactiv e 2023 21815 93489 5 Twice daily By Mouth False Albuterol sulfate 2.5 mg/3 mL (0.083 %) solution for nebulizatio n [generic] 3 ml Inhalation Every 6 hours as needed For wheezing 3 ml 2023 Active 2023 10523 29410 3 Every 6 hours as needed Inhala tion False Acetaminoph en 325 mg tablet [generic] 650 mg By Mouth Every 6 hours For Mild Pain 650 mg 01/29 Inactiv e 2023 70259 35653 0 Every 6 hours By Mouth False Tylenol 325 mg tablet 2 tabs By Mouth Every 4 hours as needed For Pain DO NOT EXCEED 3000 MG APAP/24 Hours 2 tabs 2023 Active 2023 76431 31848 0 Every 4 hours as needed By Mouth False Tylenol 325 mg tablet 2 tabs By Mouth Every 4 hours as needed For Fever >100 DO NOT EXCEED 3000 MG APAP/24 Hours 2 tabs 2023 Active 2023 30636 67525 0 Every 4 hours as needed By Mouth False Dulcolax (bisacodyl) 10 mg rectal suppository One Suppository per rectum PRN if Milk of Magnisia ineffective. Give on day 5 of no BM 1 sup 2023 Active 2023 25707 60355 1 Daily as needed Rectal False Fleet Enema 19 gram-7 gram/118 mL Administer per rectum PRN one time if dulcolax suppository not effective. Give on day 6 of no BM 1 2023 Active 2023 37582 14300 6 Daily as needed Rectal False Milk of Magnesia 400 mg/5 mL oral suspension [Magnesium hydroxide] PRN 30ml By Mouth Daily as needed for constipation one time daily if no BM, on day 4 of no BM (PRN refer to instructions) For Constipation 30 mL 2023 Active 2023 12458 79782 6 Daily as needed By Mouth False Oxycodone 5 mg tablet [generic] 01/29 Inactiv e 2023 27061 51337 1 Oxycodone 5 mg tablet [generic] 5mg By Mouth Every 4 hours as needed for severe pain for pain rate 7-10. For right pubis fracture 5mg 01/31 Inactiv e 2023 89704 37203 1 Every 4 hours as needed By Mouth False Cymbalta 30 mg capsule,del ayed release 30 mg By Mouth Once daily For Depression 30 mg 2023 Active 2023 20421 74243 0 Once daily By Mouth False Acetaminoph en 500 mg tablet [generic] 1000 mg By Mouth Twice daily not to exceed 3gm APAP in 24 hours For Pain 1000 mg 2023 Active 2023 59298 51221 8 Twice daily By Mouth False Healthshake 118 ml BID 118 ml By Mouth Twice daily Healthshake 118 ml BID For MNA of 7 - malnourished - please record total ml consumed 118 ml 2023 Active 2023 Twice daily By Mouth False Oxycodone 5 mg tablet [generic] 01/31 Inactiv e 2023 60104 59162 1 Oxycodone 5 mg tablet [generic] 5mg By Mouth Every 4 hours as needed for severe pain for pain rate 7-10. For right pubis fracture 5mg 02/01 Inactiv e 2023 16502 91646 1 Every 4 hours as needed By Mouth False Oxycodone 5 mg tablet [generic] 5mg By Mouth Every 4 hours as needed for severe pain 7-10 For right pubis fx 5mg 2023 Active 2023 79325 46242 1 Every 4 hours as needed By [...] Temperature SpO2 Blood Sugar Pulse Respirations 210 76516 7 78.00 mm[Hg] - Lying Down 186.00 mm[Hg] - Lying Down 109.80 NI 97.90 Forehead Scan 91.00 % 92.00/ min 18.00/min 210 70311 1 74.00 mm[Hg] - Lying Down 147.00 mm[Hg] - Lying Down 85.00/ min 211 26531 2 72.00 mm[Hg] - Sitting 138.00 mm[Hg] - Sitting 98.40 Tympanic 86.00/ min 18.00/min 97813 211 70658 2 59.00 mm[Hg] - Sitting 117.00 mm[Hg] - Sitting 98.20 Tympanic 99.00 % 81.00/ min 18.00/min 211 79957 5 69.00 mm[Hg] - Sitting 145.00 mm[Hg] - Sitting 211 44988 9 69.00 mm[Hg] - Sitting 145.00 mm[Hg] - Sitting 84439 211 49817 5 69.00 mm[Hg] - Sitting 145.00 mm[Hg] - Sitting 79802 211 19904 6 69.00 mm[Hg] - Sitting 40759 212 69441 7 59.00 mm[Hg] - Sitting 117.00 mm[Hg] - Sitting 98.20 Tympanic 81.00/ min 18.00/min 71390 212 68388 9 97.80 Tympanic 55167 212 03996 6 55.00 mm[Hg] - Sitting 109.00 mm[Hg] - Sitting 97.30 Tympanic 94.00 % 75.00/ min 18.00/min 22939 212 13348 5 68.00 mm[Hg] - Sitting 128.00 mm[Hg] - Sitting 97.80 Tympanic 80.00/ min 18.00/min 21658 212 20623 4 97.50 Tympanic 33576 212 27628 9 62320 212 09207 6 71.00 mm[Hg] - Sitting 117.00 mm[Hg] - Sitting 08783 213 19805 0 60.00 mm[Hg] - Sitting 116.00 mm[Hg] - Sitting 98.40 Forehead Scan 94.00 % 72.00/ min 16.00/min 17009 213 82060 7 70.00 mm[Hg] - Sitting 118.00 mm[Hg] - Sitting 98.00 Tympanic 82.00/ min 18.00/min 62926 213 27816 3 97.90 Tympanic 10224 213 95239 5 73.00 mm[Hg] - Lying Down 127.00 mm[Hg] - Lying Down 48189 213 98736 3 68695 214 70928 1 62.00 mm[Hg] - Sitting 127.00 mm[Hg] - Sitting 97.80 Tympanic 94.00 % 72.00/ min 16.00/min 00261 214 58770 4 59.00 mm[Hg] - Lying Down 113.00 mm[Hg] - Lying Down 73277 215 47365 0 56.00 mm[Hg] - Sitting 101.00 mm[Hg] - Sitting 97.80 Tympanic 95.00 % 71.00/ min 16.00/min 33189 215 47445 5 62 NI 68545 215 04718 8 57.00 mm[Hg] - Lying Down 113.00 mm[Hg] - Lying Down
--- OUTSIDE RECORDS SUMMARY | 2024-04-10 03:20 | External Medical Summary | Continuity Of Care Document ---
Author Name Unknown Address [address] [address] Organization [facility] () Care Team Providers Care Selling Manager Name Role Phone DO Alonso Amy Primary Care Provider [phone] Allergies Allergy Reaction Start Date End Date [...] 3 0.1 mL 01/29 Inactiv e 2023 64702 36043 0 1 time Intrad ermal False Tubersol 5 tub. unit/0.1 mL intradermal injection solution [Tuberculin PPD] 0.1mL Intradermal 1 time For PPD 2nd Step Give 2nd Step PPD Day 1 and Read results Day 3 (schedule 7 days after 1st READ) 0.1mL 02/07 Active 2023 43602 47910 0 1 time Intrad ermal False Oxycodone 5 mg tablet [generic] 5mg By Mouth Every 4 hours as needed for severe pain for pain rate 7-10. For right pubis fracture 5mg 01/27 Inactiv e 2023 08519 73951 1 Every 4 hours as needed By Mouth False OXYCODONE 5 MG TABLET [GENERIC]IM MEDIATE RELEASE 2.5mg By Mouth Every 4 hours as needed tablet po for moderate pain, pain rate 4-6 on pain scale 1-10. For pain 2.5mg 01/27 Inactiv e 2023 Every 4 hours as needed By Mouth False Oxycodone 5 mg tablet [generic] 01/27 Inactiv e 2023 60821 03181 1 Oxycodone 5 mg tablet [generic] 5mg By Mouth Every 4 hours as needed for severe pain for pain rate 7-10. For right pubis fracture 5mg 01/29 Inactiv e 2023 82701 36913 1 Every 4 hours as needed By [...] For Muscle spasms 175mg 2023 Active 2023 48781 96624 1 Every 6 hours as needed By Mouth False Cephalexin 500 mg capsule [generic] 500mg By Mouth Every 8 hours For UTI 500mg 01/30 Inactiv e 2023 24017 73804 1 Every 8 hours By Mouth False Aspirin 81 mg chewable tablet [generic] 81 mg By Mouth Once daily For AAA 81 mg 2023 Active 2023 28506 67951 6 Once daily By Mouth False Colace 100 mg capsule 100mg By Mouth Twice daily For constipation 100mg 2023 Active 2023 03445 04482 1 Twice daily By Mouth False Enoxaparin 300 mg/3 mL subcutaneou s solution [generic] 20mg Subcutaneous Once daily For anticoag. 20mg 2023 Active 2023 95188 51556 1 Once daily Subcut aneous False Losartan 50 mg tablet [generic] 50 By Mouth Once daily For HTN 50 2023 Active 2023 96966 17174 9 Once daily By Mouth False Miralax 17 gram/dose oral powder 17 gram By Mouth Once daily For contispation 17 gram 2023 Active 2023 63577 48522 0 Once daily By Mouth False Senna 8.6 mg tablet 2 tabs By Mouth Once daily For constipation 2 tabs 2023 Active 2023 10218 41238 1 Once daily By Mouth False Simvastatin 20 mg tablet [generic] 20 mg By Mouth Once daily For Hyperlipidemi a 20 mg 2023 Active 2023 00404 17576 0 Once daily By Mouth False Spiriva with HandiHaler 18 mcg and inhalation capsules 1 capsule Inhalation Once daily For COPD 1 capsule 2023 Active 2023 22128 14188 1 Once daily Inhala tion False Ventolin HFA 90 mcg/actuati on aerosol inhaler 2 puff Inhalation Every 4 hours as needed For COPD 2 puff 2023 Active 2023 60294 50544 0 Every 4 hours as needed Inhala tion False ProSource No Carb 15 gram-60 kcal/30 mL oral liquid 30ml By Mouth Twice daily For Protien supplement 30ml 01/30 Inactiv e 2023 66654 13159 5 Twice daily By Mouth False Albuterol sulfate 2.5 mg/3 mL (0.083 %) solution for nebulizatio n [generic] 3 ml Inhalation Every 6 hours as needed For wheezing 3 ml 2023 Active 2023 90770 09942 3 Every 6 hours as needed Inhala tion False Acetaminoph en 325 mg tablet [generic] 650 mg By Mouth Every 6 hours For Mild Pain 650 mg 01/29 Inactiv e 2023 57945 19041 0 Every 6 hours By Mouth False Tylenol 325 mg tablet 2 tabs By Mouth Every 4 hours as needed For Pain DO NOT EXCEED 3000 MG APAP/24 Hours 2 tabs 2023 Active 2023 51972 66813 0 Every 4 hours as needed By Mouth False Tylenol 325 mg tablet 2 tabs By Mouth Every 4 hours as needed For Fever >100 DO NOT EXCEED 3000 MG APAP/24 Hours 2 tabs 2023 Active 2023 20809 41391 0 Every 4 hours as needed By Mouth False Dulcolax (bisacodyl) 10 mg rectal suppository One Suppository per rectum PRN if Milk of Magnisia ineffective. Give on day 5 of no BM 1 sup 2023 Active 2023 54058 59844 1 Daily as needed Rectal False Fleet Enema 19 gram-7 gram/118 mL Administer per rectum PRN one time if dulcolax suppository not effective. Give on day 6 of no BM 1 2023 Active 2023 69564 89999 6 Daily as needed Rectal False Milk of Magnesia 400 mg/5 mL oral suspension [Magnesium hydroxide] PRN 30ml By Mouth Daily as needed for constipation one time daily if no BM, on day 4 of no BM (PRN refer to instructions) For Constipation 30 mL 2023 Active 2023 92839 07016 6 Daily as needed By Mouth False Oxycodone 5 mg tablet [generic] 01/29 Inactiv e 2023 76312 01739 1 Oxycodone 5 mg tablet [generic] 5mg By Mouth Every 4 hours as needed for severe pain for pain rate 7-10. For right pubis fracture 5mg 01/31 Inactiv e 2023 54068 80207 1 Every 4 hours as needed By Mouth False Cymbalta 30 mg capsule,del ayed release 30 mg By Mouth Once daily For Depression 30 mg 2023 Active 2023 99375 00605 0 Once daily By Mouth False Acetaminoph en 500 mg tablet [generic] 1000 mg By Mouth Twice daily not to exceed 3gm APAP in 24 hours For Pain 1000 mg 2023 Active 2023 88526 02817 8 Twice daily By Mouth False Healthshake 118 ml BID 118 ml By Mouth Twice daily Healthshake 118 ml BID For MNA of 7 - malnourished - please record total ml consumed 118 ml 2023 Active 2023 Twice daily By Mouth False Oxycodone 5 mg tablet [generic] 01/31 Inactiv e 2023 59409 58987 1 Oxycodone 5 mg tablet [generic] 5mg By Mouth Every 4 hours as needed for severe pain for pain rate 7-10. For right pubis fracture 5mg 02/01 Inactiv e 2023 36825 09209 1 Every 4 hours as needed By Mouth False Oxycodone 5 mg tablet [generic] 5mg By Mouth Every 4 hours as needed for severe pain 7-10 For right pubis fx 5mg 2023 Active 2023 73631 27277 1 Every 4 hours as needed By [...] Temperature SpO2 Blood Sugar Pulse Respirations 210 19918 7 78.00 mm[Hg] - Lying Down 186.00 mm[Hg] - Lying Down 109.80 NI 97.90 Forehead Scan 91.00 % 92.00/ min 18.00/min 210 62007 1 74.00 mm[Hg] - Lying Down 147.00 mm[Hg] - Lying Down 85.00/ min 211 70498 2 72.00 mm[Hg] - Sitting 138.00 mm[Hg] - Sitting 98.40 Tympanic 86.00/ min 18.00/min 45786 211 82383 2 59.00 mm[Hg] - Sitting 117.00 mm[Hg] - Sitting 98.20 Tympanic 99.00 % 81.00/ min 18.00/min 211 48835 5 69.00 mm[Hg] - Sitting 145.00 mm[Hg] - Sitting 211 37736 9 69.00 mm[Hg] - Sitting 145.00 mm[Hg] - Sitting 07063 211 83959 5 69.00 mm[Hg] - Sitting 145.00 mm[Hg] - Sitting 16287 211 38548 6 69.00 mm[Hg] - Sitting 61899 212 91549 7 59.00 mm[Hg] - Sitting 117.00 mm[Hg] - Sitting 98.20 Tympanic 81.00/ min 18.00/min 70278 212 24592 9 97.80 Tympanic 04383 212 41104 6 55.00 mm[Hg] - Sitting 109.00 mm[Hg] - Sitting 97.30 Tympanic 94.00 % 75.00/ min 18.00/min 51094 212 70456 5 68.00 mm[Hg] - Sitting 128.00 mm[Hg] - Sitting 97.80 Tympanic 80.00/ min 18.00/min 94244 212 08764 4 97.50 Tympanic 25424 212 67020 9 96639 212 85997 6 71.00 mm[Hg] - Sitting 117.00 mm[Hg] - Sitting 80284 213 65497 0 60.00 mm[Hg] - Sitting 116.00 mm[Hg] - Sitting 98.40 Forehead Scan 94.00 % 72.00/ min 16.00/min 67675 213 34787 7 70.00 mm[Hg] - Sitting 118.00 mm[Hg] - Sitting 98.00 Tympanic 82.00/ min 18.00/min 49816 213 32280 3 97.90 Tympanic 10338 213 59077 5 73.00 mm[Hg] - Lying Down 127.00 mm[Hg] - Lying Down 76426 213 04140 3 24739 214 50985 1 62.00 mm[Hg] - Sitting 127.00 mm[Hg] - Sitting 97.80 Tympanic 94.00 % 72.00/ min 16.00/min 16670 214 46859 4 59.00 mm[Hg] - Lying Down 113.00 mm[Hg] - Lying Down 05396 215 81726 0 56.00 mm[Hg] - Sitting 101.00 mm[Hg] - Sitting 97.80 Tympanic 95.00 % 71.00/ min 16.00/min 06140 215 64168 5 62 NI 11482 215 04354 8 57.00 mm[Hg] - Lying Down 113.00 mm[Hg] - Lying Down 46153 216 80315 1 72.00 mm[Hg] - Sitting 115.00 mm[Hg] - Sitting
--- OUTSIDE RECORDS SUMMARY | 2024-04-10 03:20 | External Medical Summary | Continuity Of Care Document ---
Author Name Unknown Address [address] [address] Organization [facility] () Care Team Providers Care Cleaning Associate Name Role Phone DO Alonso Amy Primary Care Provider [phone] Allergies Allergy Reaction Start Date End Date [...] 3 0.1 mL 01/29 Inactiv e 2023 67107 68575 0 1 time Intrad ermal False Tubersol 5 tub. unit/0.1 mL intradermal injection solution [Tuberculin PPD] 0.1mL Intradermal 1 time For PPD 2nd Step Give 2nd Step PPD Day 1 and Read results Day 3 (schedule 7 days after 1st READ) 0.1mL 02/07 Active 2023 14430 18032 0 1 time Intrad ermal False Oxycodone 5 mg tablet [generic] 5mg By Mouth Every 4 hours as needed for severe pain for pain rate 7-10. For right pubis fracture 5mg 01/27 Inactiv e 2023 15305 60657 1 Every 4 hours as needed By Mouth False OXYCODONE 5 MG TABLET [GENERIC]IM MEDIATE RELEASE 2.5mg By Mouth Every 4 hours as needed tablet po for moderate pain, pain rate 4-6 on pain scale 1-10. For pain 2.5mg 01/27 Inactiv e 2023 Every 4 hours as needed By Mouth False Oxycodone 5 mg tablet [generic] 01/27 Inactiv e 2023 13283 16613 1 Oxycodone 5 mg tablet [generic] 5mg By Mouth Every 4 hours as needed for severe pain for pain rate 7-10. For right pubis fracture 5mg 01/29 Inactiv e 2023 54181 14197 1 Every 4 hours as needed By [...] For Muscle spasms 175mg 2023 Active 2023 70751 43258 1 Every 6 hours as needed By Mouth False Cephalexin 500 mg capsule [generic] 500mg By Mouth Every 8 hours For UTI 500mg 01/30 Inactiv e 2023 35405 32303 1 Every 8 hours By Mouth False Aspirin 81 mg chewable tablet [generic] 81 mg By Mouth Once daily For AAA 81 mg 2023 Active 2023 09786 53551 6 Once daily By Mouth False Colace 100 mg capsule 100mg By Mouth Twice daily For constipation 100mg 2023 Active 2023 47610 29699 1 Twice daily By Mouth False Enoxaparin 300 mg/3 mL subcutaneou s solution [generic] 20mg Subcutaneous Once daily For anticoag. 20mg 2023 Active 2023 58803 58179 1 Once daily Subcut aneous False Losartan 50 mg tablet [generic] 50 By Mouth Once daily For HTN 50 2023 Active 2023 86713 40664 9 Once daily By Mouth False Miralax 17 gram/dose oral powder 17 gram By Mouth Once daily For contispation 17 gram 2023 Active 2023 24987 16471 0 Once daily By Mouth False Senna 8.6 mg tablet 2 tabs By Mouth Once daily For constipation 2 tabs 2023 Active 2023 66169 54286 1 Once daily By Mouth False Simvastatin 20 mg tablet [generic] 20 mg By Mouth Once daily For Hyperlipidemi a 20 mg 2023 Active 2023 44669 02538 0 Once daily By Mouth False Spiriva with HandiHaler 18 mcg and inhalation capsules 1 capsule Inhalation Once daily For COPD 1 capsule 2023 Active 2023 15813 58884 1 Once daily Inhala tion False Ventolin HFA 90 mcg/actuati on aerosol inhaler 2 puff Inhalation Every 4 hours as needed For COPD 2 puff 2023 Active 2023 08773 04636 0 Every 4 hours as needed Inhala tion False ProSource No Carb 15 gram-60 kcal/30 mL oral liquid 30ml By Mouth Twice daily For Protien supplement 30ml 01/30 Inactiv e 2023 21663 96996 5 Twice daily By Mouth False Albuterol sulfate 2.5 mg/3 mL (0.083 %) solution for nebulizatio n [generic] 3 ml Inhalation Every 6 hours as needed For wheezing 3 ml 2023 Active 2023 20322 22015 3 Every 6 hours as needed Inhala tion False Acetaminoph en 325 mg tablet [generic] 650 mg By Mouth Every 6 hours For Mild Pain 650 mg 01/29 Inactiv e 2023 85882 41954 0 Every 6 hours By Mouth False Tylenol 325 mg tablet 2 tabs By Mouth Every 4 hours as needed For Pain DO NOT EXCEED 3000 MG APAP/24 Hours 2 tabs 2023 Active 2023 41715 89155 0 Every 4 hours as needed By Mouth False Tylenol 325 mg tablet 2 tabs By Mouth Every 4 hours as needed For Fever >100 DO NOT EXCEED 3000 MG APAP/24 Hours 2 tabs 2023 Active 2023 45597 71178 0 Every 4 hours as needed By Mouth False Dulcolax (bisacodyl) 10 mg rectal suppository One Suppository per rectum PRN if Milk of Magnisia ineffective. Give on day 5 of no BM 1 sup 2023 Active 2023 68255 44643 1 Daily as needed Rectal False Fleet Enema 19 gram-7 gram/118 mL Administer per rectum PRN one time if dulcolax suppository not effective. Give on day 6 of no BM 1 2023 Active 2023 46783 04618 6 Daily as needed Rectal False Milk of Magnesia 400 mg/5 mL oral suspension [Magnesium hydroxide] PRN 30ml By Mouth Daily as needed for constipation one time daily if no BM, on day 4 of no BM (PRN refer to instructions) For Constipation 30 mL 2023 Active 2023 94699 34146 6 Daily as needed By Mouth False Oxycodone 5 mg tablet [generic] 01/29 Inactiv e 2023 48002 44886 1 Oxycodone 5 mg tablet [generic] 5mg By Mouth Every 4 hours as needed for severe pain for pain rate 7-10. For right pubis fracture 5mg 01/31 Inactiv e 2023 22599 41664 1 Every 4 hours as needed By Mouth False Cymbalta 30 mg capsule,del ayed release 30 mg By Mouth Once daily For Depression 30 mg 02/04 Inactiv e 2023 30851 79080 0 Once daily By Mouth False Acetaminoph en 500 mg tablet [generic] 1000 mg By Mouth Twice daily not to exceed 3gm APAP in 24 hours For Pain 1000 mg 2023 Active 2023 18596 44191 8 Twice daily By Mouth False Healthshake 118 ml BID 118 ml By Mouth Twice daily Healthshake 118 ml BID For MNA of 7 - malnourished - please record total ml consumed 118 ml 2023 Active 2023 Twice daily By Mouth False Oxycodone 5 mg tablet [generic] 01/31 Inactiv e 2023 68245 32289 1 Oxycodone 5 mg tablet [generic] 5mg By Mouth Every 4 hours as needed for severe pain for pain rate 7-10. For right pubis fracture 5mg 02/01 Inactiv e 2023 89657 68937 1 Every 4 hours as needed By Mouth False Oxycodone 5 mg tablet [generic] 5mg By Mouth Every 4 hours as needed for severe pain 7-10 For right pubis fx 5mg 2023 Active 2023 76763 62377 1 Every 4 hours as needed By Mouth False Cymbalta 60 mg capsule,del ayed release 60mg depression 60mg 2023 Active 2023 53721 43360 0 Once daily By Mouth False Problems [...] Temperature SpO2 Blood Sugar Pulse Respirations 210 62030 7 78.00 mm[Hg] - Lying Down 186.00 mm[Hg] - Lying Down 109.80 NI 97.90 Forehead Scan 91.00 % 92.00/ min 18.00/min 210 89540 1 74.00 mm[Hg] - Lying Down 147.00 mm[Hg] - Lying Down 85.00/ min 211 20438 2 72.00 mm[Hg] - Sitting 138.00 mm[Hg] - Sitting 98.40 Tympanic 86.00/ min 18.00/min 211 41682 2 59.00 mm[Hg] - Sitting 117.00 mm[Hg] - Sitting 98.20 Tympanic 99.00 % 81.00/ min 18.00/min 211 76558 5 69.00 mm[Hg] - Sitting 145.00 mm[Hg] - Sitting 211 24122 9 69.00 mm[Hg] - Sitting 145.00 mm[Hg] - Sitting 211 39592 5 69.00 mm[Hg] - Sitting 145.00 mm[Hg] - Sitting 211 76312 6 69.00 mm[Hg] - Sitting 212 72873 7 59.00 mm[Hg] - Sitting 117.00 mm[Hg] - Sitting 98.20 Tympanic 81.00/ min 18.00/min 212 73246 9 97.80 Tympanic 212 17740 6 55.00 mm[Hg] - Sitting 109.00 mm[Hg] - Sitting 97.30 Tympanic 94.00 % 75.00/ min 18.00/min 48396 212 92922 5 68.00 mm[Hg] - Sitting 128.00 mm[Hg] - Sitting 97.80 Tympanic 80.00/ min 18.00/min 80528 212 97122 4 97.50 Tympanic 37488 212 61561 9 50316 212 35387 6 71.00 mm[Hg] - Sitting 117.00 mm[Hg] - Sitting 57593 213 40260 0 60.00 mm[Hg] - Sitting 116.00 mm[Hg] - Sitting 98.40 Forehead Scan 94.00 % 72.00/ min 16.00/min 42123 213 93033 7 70.00 mm[Hg] - Sitting 118.00 mm[Hg] - Sitting 98.00 Tympanic 82.00/ min 18.00/min 99958 213 72214 3 97.90 Tympanic 43839 213 48731 5 73.00 mm[Hg] - Lying Down 127.00 mm[Hg] - Lying Down 59714 213 55090 3 03866 214 10087 1 62.00 mm[Hg] - Sitting 127.00 mm[Hg] - Sitting 97.80 Tympanic 94.00 % 72.00/ min 16.00/min 01751 214 93412 4 59.00 mm[Hg] - Lying Down 113.00 mm[Hg] - Lying Down 83497 215 69693 0 56.00 mm[Hg] - Sitting 101.00 mm[Hg] - Sitting 97.80 Tympanic 95.00 % 71.00/ min 16.00/min 38626 215 66723 5 62 NI 31340 215 48909 8 57.00 mm[Hg] - Lying Down 113.00 mm[Hg] - Lying Down 68666 216 62511 3 71.00 mm[Hg] - Sitting 161.00 mm[Hg] - Sitting 98.10 Tympanic 93.00 % 81.00/ min 16.00/min 18205 216 32066 1 72.00 mm[Hg] - Sitting 115.00 mm[Hg] - Sitting 68081 217 98573 2 22938 217 71491 4 62.00 mm[Hg] - Sitting 112.00 mm[Hg] - Sitting 13540 217 38499 3 57.00 mm[Hg] - Sitting 114.00 mm[Hg] - Sitting 98.30 Tympanic 98.00 % 78.00/ min 20.00/min 28355 217 78086 4 62.00 mm[Hg] - Lying Down 111.00 mm[Hg] - Lying Down 91191 218 74655 0 70.00 mm[Hg] - Sitting 158.00 mm[Hg] - Sitting 97.60 Tympanic 97.00 % 68.00/ min 18.00/min 218 83129 5 65.00 mm[Hg] - Lying Down 113.00 mm[Hg] - Lying Down
--- OUTSIDE RECORDS SUMMARY | 2024-04-10 03:20 | External Medical Summary | Continuity Of Care Document ---
Author Name Unknown Address [address] [address] Organization [facility] () Care Team Providers Care Baggage Security Checker Name Role Phone DO Alonso Amy Primary Care Provider [phone] Allergies Allergy Reaction Start Date End Date [...] 3 0.1 mL 01/29 Inactiv e 2023 42297 98413 0 1 time Intrad ermal False Tubersol 5 tub. unit/0.1 mL intradermal injection solution [Tuberculin PPD] 0.1mL Intradermal 1 time For PPD 2nd Step Give 2nd Step PPD Day 1 and Read results Day 3 (schedule 7 days after 1st READ) 0.1mL 02/07 Active 2023 88635 68163 0 1 time Intrad ermal False Oxycodone 5 mg tablet [generic] 5mg By Mouth Every 4 hours as needed for severe pain for pain rate 7-10. For right pubis fracture 5mg 01/27 Inactiv e 2023 66701 70636 1 Every 4 hours as needed By Mouth False OXYCODONE 5 MG TABLET [GENERIC]IM MEDIATE RELEASE 2.5mg By Mouth Every 4 hours as needed tablet po for moderate pain, pain rate 4-6 on pain scale 1-10. For pain 2.5mg 01/27 Inactiv e 2023 Every 4 hours as needed By Mouth False Oxycodone 5 mg tablet [generic] 01/27 Inactiv e 2023 53425 71050 1 Oxycodone 5 mg tablet [generic] 5mg By Mouth Every 4 hours as needed for severe pain for pain rate 7-10. For right pubis fracture 5mg 01/29 Inactiv e 2023 81215 00568 1 Every 4 hours as needed By [...] For Muscle spasms 175mg 2023 Active 2023 53488 85655 1 Every 6 hours as needed By Mouth False Cephalexin 500 mg capsule [generic] 500mg By Mouth Every 8 hours For UTI 500mg 01/30 Inactiv e 2023 55747 56296 1 Every 8 hours By Mouth False Aspirin 81 mg chewable tablet [generic] 81 mg By Mouth Once daily For AAA 81 mg 2023 Active 2023 89643 01901 6 Once daily By Mouth False Colace 100 mg capsule 100mg By Mouth Twice daily For constipation 100mg 2023 Active 2023 83068 53555 1 Twice daily By Mouth False Enoxaparin 300 mg/3 mL subcutaneou s solution [generic] 20mg Subcutaneous Once daily For anticoag. 20mg 2023 Active 2023 05556 33028 1 Once daily Subcut aneous False Losartan 50 mg tablet [generic] 50 By Mouth Once daily For HTN 50 2023 Active 2023 21651 61492 9 Once daily By Mouth False Miralax 17 gram/dose oral powder 17 gram By Mouth Once daily For contispation 17 gram 2023 Active 2023 25004 54039 0 Once daily By Mouth False Senna 8.6 mg tablet 2 tabs By Mouth Once daily For constipation 2 tabs 2023 Active 2023 94343 30900 1 Once daily By Mouth False Simvastatin 20 mg tablet [generic] 20 mg By Mouth Once daily For Hyperlipidemi a 20 mg 2023 Active 2023 03943 67923 0 Once daily By Mouth False Spiriva with HandiHaler 18 mcg and inhalation capsules 1 capsule Inhalation Once daily For COPD 1 capsule 2023 Active 2023 25791 47044 1 Once daily Inhala tion False Ventolin HFA 90 mcg/actuati on aerosol inhaler 2 puff Inhalation Every 4 hours as needed For COPD 2 puff 2023 Active 2023 99433 15418 0 Every 4 hours as needed Inhala tion False ProSource No Carb 15 gram-60 kcal/30 mL oral liquid 30ml By Mouth Twice daily For Protien supplement 30ml 01/30 Inactiv e 2023 37440 20475 5 Twice daily By Mouth False Albuterol sulfate 2.5 mg/3 mL (0.083 %) solution for nebulizatio n [generic] 3 ml Inhalation Every 6 hours as needed For wheezing 3 ml 2023 Active 2023 56783 84234 3 Every 6 hours as needed Inhala tion False Acetaminoph en 325 mg tablet [generic] 650 mg By Mouth Every 6 hours For Mild Pain 650 mg 01/29 Inactiv e 2023 74557 47934 0 Every 6 hours By Mouth False Tylenol 325 mg tablet 2 tabs By Mouth Every 4 hours as needed For Pain DO NOT EXCEED 3000 MG APAP/24 Hours 2 tabs 2023 Active 2023 79749 40881 0 Every 4 hours as needed By Mouth False Tylenol 325 mg tablet 2 tabs By Mouth Every 4 hours as needed For Fever >100 DO NOT EXCEED 3000 MG APAP/24 Hours 2 tabs 2023 Active 2023 80159 50776 0 Every 4 hours as needed By Mouth False Dulcolax (bisacodyl) 10 mg rectal suppository One Suppository per rectum PRN if Milk of Magnisia ineffective. Give on day 5 of no BM 1 sup 2023 Active 2023 00707 66188 1 Daily as needed Rectal False Fleet Enema 19 gram-7 gram/118 mL Administer per rectum PRN one time if dulcolax suppository not effective. Give on day 6 of no BM 1 2023 Active 2023 71615 83935 6 Daily as needed Rectal False Milk of Magnesia 400 mg/5 mL oral suspension [Magnesium hydroxide] PRN 30ml By Mouth Daily as needed for constipation one time daily if no BM, on day 4 of no BM (PRN refer to instructions) For Constipation 30 mL 2023 Active 2023 63096 70533 6 Daily as needed By Mouth False Oxycodone 5 mg tablet [generic] 01/29 Inactiv e 2023 81948 90468 1 Oxycodone 5 mg tablet [generic] 5mg By Mouth Every 4 hours as needed for severe pain for pain rate 7-10. For right pubis fracture 5mg 01/31 Inactiv e 2023 57254 94516 1 Every 4 hours as needed By Mouth False Cymbalta 30 mg capsule,del ayed release 30 mg By Mouth Once daily For Depression 30 mg 2023 Active 2023 12207 02269 0 Once daily By Mouth False Acetaminoph en 500 mg tablet [generic] 1000 mg By Mouth Twice daily not to exceed 3gm APAP in 24 hours For Pain 1000 mg 2023 Active 2023 45704 78605 8 Twice daily By Mouth False Healthshake 118 ml BID 118 ml By Mouth Twice daily Healthshake 118 ml BID For MNA of 7 - malnourished - please record total ml consumed 118 ml 2023 Active 2023 Twice daily By Mouth False Oxycodone 5 mg tablet [generic] 01/31 Inactiv e 2023 80583 93913 1 Oxycodone 5 mg tablet [generic] 5mg By Mouth Every 4 hours as needed for severe pain for pain rate 7-10. For right pubis fracture 5mg 02/01 Inactiv e 2023 73248 96703 1 Every 4 hours as needed By Mouth False Oxycodone 5 mg tablet [generic] 5mg By Mouth Every 4 hours as needed for severe pain 7-10 For right pubis fx 5mg 2023 Active 2023 89792 24084 1 Every 4 hours as needed By [...] Temperature SpO2 Blood Sugar Pulse Respirations 210 72902 7 78.00 mm[Hg] - Lying Down 186.00 mm[Hg] - Lying Down 109.80 NI 97.90 Forehead Scan 91.00 % 92.00/ min 18.00/min 210 41189 1 74.00 mm[Hg] - Lying Down 147.00 mm[Hg] - Lying Down 85.00/ min 211 04484 2 72.00 mm[Hg] - Sitting 138.00 mm[Hg] - Sitting 98.40 Tympanic 86.00/ min 18.00/min 39768 211 26522 2 59.00 mm[Hg] - Sitting 117.00 mm[Hg] - Sitting 98.20 Tympanic 99.00 % 81.00/ min 18.00/min 211 24223 5 69.00 mm[Hg] - Sitting 145.00 mm[Hg] - Sitting 211 50776 9 69.00 mm[Hg] - Sitting 145.00 mm[Hg] - Sitting 34619 211 09735 5 69.00 mm[Hg] - Sitting 145.00 mm[Hg] - Sitting 45689 211 08071 6 69.00 mm[Hg] - Sitting 29351 212 54427 7 59.00 mm[Hg] - Sitting 117.00 mm[Hg] - Sitting 98.20 Tympanic 81.00/ min 18.00/min 28137 212 09364 9 97.80 Tympanic 23738 212 14089 6 55.00 mm[Hg] - Sitting 109.00 mm[Hg] - Sitting 97.30 Tympanic 94.00 % 75.00/ min 18.00/min 81548 212 34021 5 68.00 mm[Hg] - Sitting 128.00 mm[Hg] - Sitting 97.80 Tympanic 80.00/ min 18.00/min 41596 212 59988 4 97.50 Tympanic 53435 212 39103 9 78597 212 31023 6 71.00 mm[Hg] - Sitting 117.00 mm[Hg] - Sitting 31178 213 60474 0 60.00 mm[Hg] - Sitting 116.00 mm[Hg] - Sitting 98.40 Forehead Scan 94.00 % 72.00/ min 16.00/min 37069 213 78787 7 70.00 mm[Hg] - Sitting 118.00 mm[Hg] - Sitting 98.00 Tympanic 82.00/ min 18.00/min 50310 213 65118 3 97.90 Tympanic 44899 213 01586 5 73.00 mm[Hg] - Lying Down 127.00 mm[Hg] - Lying Down 09176 213 75555 3 09596 214 07365 1 62.00 mm[Hg] - Sitting 127.00 mm[Hg] - Sitting 97.80 Tympanic 94.00 % 72.00/ min 16.00/min 35709 214 87402 4 59.00 mm[Hg] - Lying Down 113.00 mm[Hg] - Lying Down 37085 215 95746 0 56.00 mm[Hg] - Sitting 101.00 mm[Hg] - Sitting 97.80 Tympanic 95.00 % 71.00/ min 16.00/min 21791 215 68066 5 62 NI [address]35 215 53523 8 57.00 mm[Hg] - Lying Down 113.00 mm[Hg] - Lying Down
--- OUTSIDE RECORDS SUMMARY | 2024-04-10 03:20 | External Medical Summary | Continuity Of Care Document ---
Author Name Unknown Address [address] [address] Organization [facility] () Care Team Providers Care Sales And Merchandising Associate Name Role Phone DO Alonso Amy Primary Care Provider [phone] Allergies Allergy Reaction Start Date End Date [...] 3 0.1 mL 01/29 Inactiv e 2023 11852 30924 0 1 time Intrad ermal False Tubersol 5 tub. unit/0.1 mL intradermal injection solution [Tuberculin PPD] 0.1mL Intradermal 1 time For PPD 2nd Step Give 2nd Step PPD Day 1 and Read results Day 3 (schedule 7 days after 1st READ) 0.1mL 02/07 Active 2023 62780 41777 0 1 time Intrad ermal False Oxycodone 5 mg tablet [generic] 5mg By Mouth Every 4 hours as needed for severe pain for pain rate 7-10. For right pubis fracture 5mg 01/27 Inactiv e 2023 25573 74185 1 Every 4 hours as needed By Mouth False OXYCODONE 5 MG TABLET [GENERIC]IM MEDIATE RELEASE 2.5mg By Mouth Every 4 hours as needed tablet po for moderate pain, pain rate 4-6 on pain scale 1-10. For pain 2.5mg 01/27 Inactiv e 2023 Every 4 hours as needed By Mouth False Oxycodone 5 mg tablet [generic] 01/27 Inactiv e 2023 23035 17121 1 Oxycodone 5 mg tablet [generic] 5mg By Mouth Every 4 hours as needed for severe pain for pain rate 7-10. For right pubis fracture 5mg 01/29 Inactiv e 2023 55183 61730 1 Every 4 hours as needed By [...] For Muscle spasms 175mg 2023 Active 2023 44469 40652 1 Every 6 hours as needed By Mouth False Cephalexin 500 mg capsule [generic] 500mg By Mouth Every 8 hours For UTI 500mg 01/30 Inactiv e 2023 12811 22187 1 Every 8 hours By Mouth False Aspirin 81 mg chewable tablet [generic] 81 mg By Mouth Once daily For AAA 81 mg 2023 Active 2023 43113 58779 6 Once daily By Mouth False Colace 100 mg capsule 100mg By Mouth Twice daily For constipation 100mg 2023 Active 2023 19712 74801 1 Twice daily By Mouth False Enoxaparin 300 mg/3 mL subcutaneou s solution [generic] 20mg Subcutaneous Once daily For anticoag. 20mg 2023 Active 2023 37669 43565 1 Once daily Subcut aneous False Losartan 50 mg tablet [generic] 50 By Mouth Once daily For HTN 50 2023 Active 2023 93372 65309 9 Once daily By Mouth False Miralax 17 gram/dose oral powder 17 gram By Mouth Once daily For contispation 17 gram 2023 Active 2023 00732 71764 0 Once daily By Mouth False Senna 8.6 mg tablet 2 tabs By Mouth Once daily For constipation 2 tabs 2023 Active 2023 25662 23833 1 Once daily By Mouth False Simvastatin 20 mg tablet [generic] 20 mg By Mouth Once daily For Hyperlipidemi a 20 mg 2023 Active 2023 66158 03596 0 Once daily By Mouth False Spiriva with HandiHaler 18 mcg and inhalation capsules 1 capsule Inhalation Once daily For COPD 1 capsule 2023 Active 2023 21745 35124 1 Once daily Inhala tion False Ventolin HFA 90 mcg/actuati on aerosol inhaler 2 puff Inhalation Every 4 hours as needed For COPD 2 puff 2023 Active 2023 00250 92093 0 Every 4 hours as needed Inhala tion False ProSource No Carb 15 gram-60 kcal/30 mL oral liquid 30ml By Mouth Twice daily For Protien supplement 30ml 01/30 Inactiv e 2023 05096 12346 5 Twice daily By Mouth False Albuterol sulfate 2.5 mg/3 mL (0.083 %) solution for nebulizatio n [generic] 3 ml Inhalation Every 6 hours as needed For wheezing 3 ml 2023 Active 2023 22049 24491 3 Every 6 hours as needed Inhala tion False Acetaminoph en 325 mg tablet [generic] 650 mg By Mouth Every 6 hours For Mild Pain 650 mg 01/29 Inactiv e 2023 44889 39441 0 Every 6 hours By Mouth False Tylenol 325 mg tablet 2 tabs By Mouth Every 4 hours as needed For Pain DO NOT EXCEED 3000 MG APAP/24 Hours 2 tabs 2023 Active 2023 61077 97296 0 Every 4 hours as needed By Mouth False Tylenol 325 mg tablet 2 tabs By Mouth Every 4 hours as needed For Fever >100 DO NOT EXCEED 3000 MG APAP/24 Hours 2 tabs 2023 Active 2023 18303 45963 0 Every 4 hours as needed By Mouth False Dulcolax (bisacodyl) 10 mg rectal suppository One Suppository per rectum PRN if Milk of Magnisia ineffective. Give on day 5 of no BM 1 sup 2023 Active 2023 65442 66354 1 Daily as needed Rectal False Fleet Enema 19 gram-7 gram/118 mL Administer per rectum PRN one time if dulcolax suppository not effective. Give on day 6 of no BM 1 2023 Active 2023 95433 86099 6 Daily as needed Rectal False Milk of Magnesia 400 mg/5 mL oral suspension [Magnesium hydroxide] PRN 30ml By Mouth Daily as needed for constipation one time daily if no BM, on day 4 of no BM (PRN refer to instructions) For Constipation 30 mL 2023 Active 2023 46235 22452 6 Daily as needed By Mouth False Oxycodone 5 mg tablet [generic] 01/29 Inactiv e 2023 16892 18606 1 Oxycodone 5 mg tablet [generic] 5mg By Mouth Every 4 hours as needed for severe pain for pain rate 7-10. For right pubis fracture 5mg 2023 Active 2023 67556 94279 1 Every 4 hours as needed By Mouth False Cymbalta 30 mg capsule,del ayed release 30 mg By Mouth Once daily For Depression 30 mg 2023 Active 2023 63974 24808 0 Once daily By Mouth False Acetaminoph en 500 mg tablet [generic] 1000 mg By Mouth Twice daily not to exceed 3gm APAP in 24 hours For Pain 1000 mg 2023 Active 2023 44809 96360 8 Twice daily By Mouth False Healthshake 118 ml BID 118 ml By Mouth Twice daily Healthshake 118 ml BID For MNA of 7 - malnourished - please record total ml consumed 118 ml 2023 Active 2023 Twice daily By Mouth False Problems Code Description [...] Temperature SpO2 Blood Sugar Pulse Respirations 210 10085 7 78.00 mm[Hg] - Lying Down 186.00 mm[Hg] - Lying Down 109.80 NI 97.90 Forehead Scan 91.00 % 92.00/ min 18.00/min 210 18927 1 74.00 mm[Hg] - Lying Down 147.00 mm[Hg] - Lying Down 85.00/ min 211 62799 2 72.00 mm[Hg] - Sitting 138.00 mm[Hg] - Sitting 98.40 Tympanic 86.00/ min 18.00/min 85529 211 08567 2 59.00 mm[Hg] - Sitting 117.00 mm[Hg] - Sitting 98.20 Tympanic 99.00 % 81.00/ min 18.00/min 59918 211 23931 5 69.00 mm[Hg] - Sitting 145.00 mm[Hg] - Sitting 13609 211 87516 9 69.00 mm[Hg] - Sitting 145.00 mm[Hg] - Sitting 02436 211 06814 5 69.00 mm[Hg] - Sitting 145.00 mm[Hg] - Sitting 34983 211 06429 6 69.00 mm[Hg] - Sitting 23322 212 00656 7 59.00 mm[Hg] - Sitting 117.00 mm[Hg] - Sitting 98.20 Tympanic 81.00/ min 18.00/min 84293 212 84349 9 97.80 Tympanic 54419 212 66548 6 55.00 mm[Hg] - Sitting 109.00 mm[Hg] - Sitting 97.30 Tympanic 94.00 % 75.00/ min 18.00/min 06496 212 02014 5 68.00 mm[Hg] - Sitting 128.00 mm[Hg] - Sitting 97.80 Tympanic 80.00/ min 18.00/min 18325 212 47458 4 97.50 Tympanic 87382 212 00775 9 38861 212 98310 6 71.00 mm[Hg] - Sitting 117.00 mm[Hg] - Sitting 10037 213 65510 0 60.00 mm[Hg] - Sitting 116.00 mm[Hg] - Sitting 98.40 Forehead Scan 94.00 % 72.00/ min 16.00/min 55127 213 38073 7 70.00 mm[Hg] - Sitting 118.00 mm[Hg] - Sitting 98.00 Tympanic 82.00/ min 18.00/min 82318 213 32374 3 97.90 Tympanic 42935 213 35311 5 73.00 mm[Hg] - Lying Down 127.00 mm[Hg] - Lying Down 21750 213 66505 3
--- OUTSIDE RECORDS SUMMARY | 2024-04-10 03:20 | External Medical Summary | Continuity Of Care Document ---
Author Name Unknown Address [address] [address] Organization [facility] () Care Team Providers Care Business Services Sales Representative Name Role Phone DO Alonso Amy Primary Care Provider [phone] Allergies Allergy Reaction Start Date End Date [...] 3 0.1 mL 01/29 Inactiv e 2023 97122 58144 0 1 time Intrad ermal False Tubersol 5 tub. unit/0.1 mL intradermal injection solution [Tuberculin PPD] 0.1mL Intradermal 1 time For PPD 2nd Step Give 2nd Step PPD Day 1 and Read results Day 3 (schedule 7 days after 1st READ) 0.1mL 02/07 Active 2023 89439 26778 0 1 time Intrad ermal False Oxycodone 5 mg tablet [generic] 5mg By Mouth Every 4 hours as needed for severe pain for pain rate 7-10. For right pubis fracture 5mg 01/27 Inactiv e 2023 96091 04607 1 Every 4 hours as needed By Mouth False OXYCODONE 5 MG TABLET [GENERIC]IM MEDIATE RELEASE 2.5mg By Mouth Every 4 hours as needed tablet po for moderate pain, pain rate 4-6 on pain scale 1-10. For pain 2.5mg 01/27 Inactiv e 2023 Every 4 hours as needed By Mouth False Oxycodone 5 mg tablet [generic] 01/27 Inactiv e 2023 81607 84134 1 Oxycodone 5 mg tablet [generic] 5mg By Mouth Every 4 hours as needed for severe pain for pain rate 7-10. For right pubis fracture 5mg 01/29 Inactiv e 2023 02862 43150 1 Every 4 hours as needed By [...] For Muscle spasms 175mg 2023 Active 2023 38599 17236 1 Every 6 hours as needed By Mouth False Cephalexin 500 mg capsule [generic] 500mg By Mouth Every 8 hours For UTI 500mg 01/30 Inactiv e 2023 20589 42408 1 Every 8 hours By Mouth False Aspirin 81 mg chewable tablet [generic] 81 mg By Mouth Once daily For AAA 81 mg 2023 Active 2023 28941 67557 6 Once daily By Mouth False Colace 100 mg capsule 100mg By Mouth Twice daily For constipation 100mg 2023 Active 2023 26880 40772 1 Twice daily By Mouth False Enoxaparin 300 mg/3 mL subcutaneou s solution [generic] 20mg Subcutaneous Once daily For anticoag. 20mg 2023 Active 2023 19626 83394 1 Once daily Subcut aneous False Losartan 50 mg tablet [generic] 50 By Mouth Once daily For HTN 50 2023 Active 2023 14591 40718 9 Once daily By Mouth False Miralax 17 gram/dose oral powder 17 gram By Mouth Once daily For contispation 17 gram 2023 Active 2023 96220 37979 0 Once daily By Mouth False Senna 8.6 mg tablet 2 tabs By Mouth Once daily For constipation 2 tabs 2023 Active 2023 35538 56488 1 Once daily By Mouth False Simvastatin 20 mg tablet [generic] 20 mg By Mouth Once daily For Hyperlipidemi a 20 mg 2023 Active 2023 28361 57997 0 Once daily By Mouth False Spiriva with HandiHaler 18 mcg and inhalation capsules 1 capsule Inhalation Once daily For COPD 1 capsule 2023 Active 2023 70680 21980 1 Once daily Inhala tion False Ventolin HFA 90 mcg/actuati on aerosol inhaler 2 puff Inhalation Every 4 hours as needed For COPD 2 puff 2023 Active 2023 44143 64245 0 Every 4 hours as needed Inhala tion False ProSource No Carb 15 gram-60 kcal/30 mL oral liquid 30ml By Mouth Twice daily For Protien supplement 30ml 01/30 Inactiv e 2023 99722 78032 5 Twice daily By Mouth False Albuterol sulfate 2.5 mg/3 mL (0.083 %) solution for nebulizatio n [generic] 3 ml Inhalation Every 6 hours as needed For wheezing 3 ml 2023 Active 2023 08135 50505 3 Every 6 hours as needed Inhala tion False Acetaminoph en 325 mg tablet [generic] 650 mg By Mouth Every 6 hours For Mild Pain 650 mg 01/29 Inactiv e 2023 27548 90941 0 Every 6 hours By Mouth False Tylenol 325 mg tablet 2 tabs By Mouth Every 4 hours as needed For Pain DO NOT EXCEED 3000 MG APAP/24 Hours 2 tabs 2023 Active 2023 05785 80360 0 Every 4 hours as needed By Mouth False Tylenol 325 mg tablet 2 tabs By Mouth Every 4 hours as needed For Fever >100 DO NOT EXCEED 3000 MG APAP/24 Hours 2 tabs 2023 Active 2023 49039 32436 0 Every 4 hours as needed By Mouth False Dulcolax (bisacodyl) 10 mg rectal suppository One Suppository per rectum PRN if Milk of Magnisia ineffective. Give on day 5 of no BM 1 sup 2023 Active 2023 23288 53975 1 Daily as needed Rectal False Fleet Enema 19 gram-7 gram/118 mL Administer per rectum PRN one time if dulcolax suppository not effective. Give on day 6 of no BM 1 2023 Active 2023 61818 19769 6 Daily as needed Rectal False Milk of Magnesia 400 mg/5 mL oral suspension [Magnesium hydroxide] PRN 30ml By Mouth Daily as needed for constipation one time daily if no BM, on day 4 of no BM (PRN refer to instructions) For Constipation 30 mL 2023 Active 2023 76368 12342 6 Daily as needed By Mouth False Oxycodone 5 mg tablet [generic] 01/29 Inactiv e 2023 63938 19931 1 Oxycodone 5 mg tablet [generic] 5mg By Mouth Every 4 hours as needed for severe pain for pain rate 7-10. For right pubis fracture 5mg 01/31 Inactiv e 2023 93754 68169 1 Every 4 hours as needed By Mouth False Cymbalta 30 mg capsule,del ayed release 30 mg By Mouth Once daily For Depression 30 mg 2023 Active 2023 91379 02462 0 Once daily By Mouth False Acetaminoph en 500 mg tablet [generic] 1000 mg By Mouth Twice daily not to exceed 3gm APAP in 24 hours For Pain 1000 mg 2023 Active 2023 86600 72647 8 Twice daily By Mouth False Healthshake 118 ml BID 118 ml By Mouth Twice daily Healthshake 118 ml BID For MNA of 7 - malnourished - please record total ml consumed 118 ml 2023 Active 2023 Twice daily By Mouth False Oxycodone 5 mg tablet [generic] 01/31 Inactiv e 2023 09933 77267 1 Oxycodone 5 mg tablet [generic] 5mg By Mouth Every 4 hours as needed for severe pain for pain rate 7-10. For right pubis fracture 5mg 02/01 Inactiv e 2023 39459 19793 1 Every 4 hours as needed By Mouth False Oxycodone 5 mg tablet [generic] 5mg By Mouth Every 4 hours as needed for severe pain 7-10 For right pubis fx 5mg 2023 Active 2023 03825 82581 1 Every 4 hours as needed By [...] Temperature SpO2 Blood Sugar Pulse Respirations 210 89244 7 78.00 mm[Hg] - Lying Down 186.00 mm[Hg] - Lying Down 109.80 NI 97.90 Forehead Scan 91.00 % 92.00/ min 18.00/min 210 23701 1 74.00 mm[Hg] - Lying Down 147.00 mm[Hg] - Lying Down 85.00/ min 211 84137 2 72.00 mm[Hg] - Sitting 138.00 mm[Hg] - Sitting 98.40 Tympanic 86.00/ min 18.00/min 67417 211 21054 2 59.00 mm[Hg] - Sitting 117.00 mm[Hg] - Sitting 98.20 Tympanic 99.00 % 81.00/ min 18.00/min 211 63073 5 69.00 mm[Hg] - Sitting 145.00 mm[Hg] - Sitting 211 93246 9 69.00 mm[Hg] - Sitting 145.00 mm[Hg] - Sitting 28303 211 30033 5 69.00 mm[Hg] - Sitting 145.00 mm[Hg] - Sitting 62812 211 55128 6 69.00 mm[Hg] - Sitting 49918 212 93669 7 59.00 mm[Hg] - Sitting 117.00 mm[Hg] - Sitting 98.20 Tympanic 81.00/ min 18.00/min 68481 212 80494 9 97.80 Tympanic 59847 212 83661 6 55.00 mm[Hg] - Sitting 109.00 mm[Hg] - Sitting 97.30 Tympanic 94.00 % 75.00/ min 18.00/min 56942 212 25627 5 68.00 mm[Hg] - Sitting 128.00 mm[Hg] - Sitting 97.80 Tympanic 80.00/ min 18.00/min 40702 212 47731 4 97.50 Tympanic 05856 212 88447 9 37720 212 14218 6 71.00 mm[Hg] - Sitting 117.00 mm[Hg] - Sitting 63537 213 08274 0 60.00 mm[Hg] - Sitting 116.00 mm[Hg] - Sitting 98.40 Forehead Scan 94.00 % 72.00/ min 16.00/min 77980 213 75766 7 70.00 mm[Hg] - Sitting 118.00 mm[Hg] - Sitting 98.00 Tympanic 82.00/ min 18.00/min 16502 213 09830 3 97.90 Tympanic 80982 213 43914 5 73.00 mm[Hg] - Lying Down 127.00 mm[Hg] - Lying Down 12045 213 14835 3 84502 214 29171 1 62.00 mm[Hg] - Sitting 127.00 mm[Hg] - Sitting 97.80 Tympanic 94.00 % 72.00/ min 16.00/min 73589 214 09492 4 59.00 mm[Hg] - Lying Down 113.00 mm[Hg] - Lying Down 39354 215 64954 0 56.00 mm[Hg] - Sitting 101.00 mm[Hg] - Sitting 97.80 Tympanic 95.00 % 71.00/ min 16.00/min 40033 215 60816 5 62 NI 50306 215 68037 8 57.00 mm[Hg] - Lying Down 113.00 mm[Hg] - Lying Down
--- OUTSIDE RECORDS SUMMARY | 2024-04-10 03:20 | External Medical Summary | Continuity Of Care Document ---
Author Name Unknown Address [address] [address] Organization [facility] () Care Team Providers Care Psychiatric Orderly Name Role Phone DO Alonso Amy Primary Care Provider [phone] Allergies Allergy Reaction Start Date End Date [...] 3 0.1 mL 01/29 Inactiv e 2023 58530 70585 0 1 time Intrad ermal False Tubersol 5 tub. unit/0.1 mL intradermal injection solution [Tuberculin PPD] 0.1mL Intradermal 1 time For PPD 2nd Step Give 2nd Step PPD Day 1 and Read results Day 3 (schedule 7 days after 1st READ) 0.1mL 02/07 Active 2023 22571 62167 0 1 time Intrad ermal False Oxycodone 5 mg tablet [generic] 5mg By Mouth Every 4 hours as needed for severe pain for pain rate 7-10. For right pubis fracture 5mg 01/27 Inactiv e 2023 69138 83372 1 Every 4 hours as needed By Mouth False OXYCODONE 5 MG TABLET [GENERIC]IM MEDIATE RELEASE 2.5mg By Mouth Every 4 hours as needed tablet po for moderate pain, pain rate 4-6 on pain scale 1-10. For pain 2.5mg 01/27 Inactiv e 2023 Every 4 hours as needed By Mouth False Oxycodone 5 mg tablet [generic] 01/27 Inactiv e 2023 89454 75855 1 Oxycodone 5 mg tablet [generic] 5mg By Mouth Every 4 hours as needed for severe pain for pain rate 7-10. For right pubis fracture 5mg 01/29 Inactiv e 2023 31856 68366 1 Every 4 hours as needed By [...] For Muscle spasms 175mg 2023 Active 2023 13817 08606 1 Every 6 hours as needed By Mouth False Cephalexin 500 mg capsule [generic] 500mg By Mouth Every 8 hours For UTI 500mg 01/30 Inactiv e 2023 03982 00557 1 Every 8 hours By Mouth False Aspirin 81 mg chewable tablet [generic] 81 mg By Mouth Once daily For AAA 81 mg 2023 Active 2023 71128 16495 6 Once daily By Mouth False Colace 100 mg capsule 100mg By Mouth Twice daily For constipation 100mg 2023 Active 2023 24621 51993 1 Twice daily By Mouth False Enoxaparin 300 mg/3 mL subcutaneou s solution [generic] 20mg Subcutaneous Once daily For anticoag. 20mg 2023 Active 2023 14044 73561 1 Once daily Subcut aneous False Losartan 50 mg tablet [generic] 50 By Mouth Once daily For HTN 50 2023 Active 2023 38756 27643 9 Once daily By Mouth False Miralax 17 gram/dose oral powder 17 gram By Mouth Once daily For contispation 17 gram 2023 Active 2023 42137 26635 0 Once daily By Mouth False Senna 8.6 mg tablet 2 tabs By Mouth Once daily For constipation 2 tabs 2023 Active 2023 21810 56850 1 Once daily By Mouth False Simvastatin 20 mg tablet [generic] 20 mg By Mouth Once daily For Hyperlipidemi a 20 mg 2023 Active 2023 80403 90948 0 Once daily By Mouth False Spiriva with HandiHaler 18 mcg and inhalation capsules 1 capsule Inhalation Once daily For COPD 1 capsule 2023 Active 2023 18252 90998 1 Once daily Inhala tion False Ventolin HFA 90 mcg/actuati on aerosol inhaler 2 puff Inhalation Every 4 hours as needed For COPD 2 puff 2023 Active 2023 98990 74961 0 Every 4 hours as needed Inhala tion False ProSource No Carb 15 gram-60 kcal/30 mL oral liquid 30ml By Mouth Twice daily For Protien supplement 30ml 01/30 Inactiv e 2023 91173 06454 5 Twice daily By Mouth False Albuterol sulfate 2.5 mg/3 mL (0.083 %) solution for nebulizatio n [generic] 3 ml Inhalation Every 6 hours as needed For wheezing 3 ml 2023 Active 2023 59089 23036 3 Every 6 hours as needed Inhala tion False Acetaminoph en 325 mg tablet [generic] 650 mg By Mouth Every 6 hours For Mild Pain 650 mg 01/29 Inactiv e 2023 88736 94420 0 Every 6 hours By Mouth False Tylenol 325 mg tablet 2 tabs By Mouth Every 4 hours as needed For Pain DO NOT EXCEED 3000 MG APAP/24 Hours 2 tabs 2023 Active 2023 19910 11586 0 Every 4 hours as needed By Mouth False Tylenol 325 mg tablet 2 tabs By Mouth Every 4 hours as needed For Fever >100 DO NOT EXCEED 3000 MG APAP/24 Hours 2 tabs 2023 Active 2023 15538 75575 0 Every 4 hours as needed By Mouth False Dulcolax (bisacodyl) 10 mg rectal suppository One Suppository per rectum PRN if Milk of Magnisia ineffective. Give on day 5 of no BM 1 sup 2023 Active 2023 80663 89441 1 Daily as needed Rectal False Fleet Enema 19 gram-7 gram/118 mL Administer per rectum PRN one time if dulcolax suppository not effective. Give on day 6 of no BM 1 2023 Active 2023 51812 19551 6 Daily as needed Rectal False Milk of Magnesia 400 mg/5 mL oral suspension [Magnesium hydroxide] PRN 30ml By Mouth Daily as needed for constipation one time daily if no BM, on day 4 of no BM (PRN refer to instructions) For Constipation 30 mL 2023 Active 2023 97583 25142 6 Daily as needed By Mouth False Oxycodone 5 mg tablet [generic] 01/29 Inactiv e 2023 40018 64535 1 Oxycodone 5 mg tablet [generic] 5mg By Mouth Every 4 hours as needed for severe pain for pain rate 7-10. For right pubis fracture 5mg 01/31 Inactiv e 2023 53083 21671 1 Every 4 hours as needed By Mouth False Cymbalta 30 mg capsule,del ayed release 30 mg By Mouth Once daily For Depression 30 mg 2023 Active 2023 13638 71604 0 Once daily By Mouth False Acetaminoph en 500 mg tablet [generic] 1000 mg By Mouth Twice daily not to exceed 3gm APAP in 24 hours For Pain 1000 mg 2023 Active 2023 09835 11932 8 Twice daily By Mouth False Healthshake 118 ml BID 118 ml By Mouth Twice daily Healthshake 118 ml BID For MNA of 7 - malnourished - please record total ml consumed 118 ml 2023 Active 2023 Twice daily By Mouth False Oxycodone 5 mg tablet [generic] 01/31 Inactiv e 2023 20084 93776 1 Oxycodone 5 mg tablet [generic] 5mg By Mouth Every 4 hours as needed for severe pain for pain rate 7-10. For right pubis fracture 5mg 2023 Active 2023 97175 12370 1 Every 4 hours as needed By [...] Temperature SpO2 Blood Sugar Pulse Respirations 210 92025 7 78.00 mm[Hg] - Lying Down 186.00 mm[Hg] - Lying Down 109.80 NI 97.90 Forehead Scan 91.00 % 92.00/ min 18.00/min 210 69562 1 74.00 mm[Hg] - Lying Down 147.00 mm[Hg] - Lying Down 85.00/ min 211 98645 2 72.00 mm[Hg] - Sitting 138.00 mm[Hg] - Sitting 98.40 Tympanic 86.00/ min 18.00/min 211 18761 2 59.00 mm[Hg] - Sitting 117.00 mm[Hg] - Sitting 98.20 Tympanic 99.00 % 81.00/ min 18.00/min 211 32032 5 69.00 mm[Hg] - Sitting 145.00 mm[Hg] - Sitting 211 54992 9 69.00 mm[Hg] - Sitting 145.00 mm[Hg] - Sitting 211 85942 5 69.00 mm[Hg] - Sitting 145.00 mm[Hg] - Sitting 211 06278 6 69.00 mm[Hg] - Sitting 212 46010 7 59.00 mm[Hg] - Sitting 117.00 mm[Hg] - Sitting 98.20 Tympanic 81.00/ min 18.00/min 02594 212 09277 9 97.80 Tympanic 212 91552 6 55.00 mm[Hg] - Sitting 109.00 mm[Hg] - Sitting 97.30 Tympanic 94.00 % 75.00/ min 18.00/min 45993 212 75610 5 68.00 mm[Hg] - Sitting 128.00 mm[Hg] - Sitting 97.80 Tympanic 80.00/ min 18.00/min 80086 212 58330 4 97.50 Tympanic 22012 212 15989 9 18985 212 80289 6 71.00 mm[Hg] - Sitting 117.00 mm[Hg] - Sitting 213 01395 0 60.00 mm[Hg] - Sitting 116.00 mm[Hg] - Sitting 98.40 Forehead Scan 94.00 % 72.00/ min 16.00/min 213 49449 7 70.00 mm[Hg] - Sitting 118.00 mm[Hg] - Sitting 98.00 Tympanic 82.00/ min 18.00/min 83814 213 25069 3 97.90 Tympanic 83919 213 23897 5 73.00 mm[Hg] - Lying Down 127.00 mm[Hg] - Lying Down 97369 213 22957 3 23950 214 03126 1 62.00 mm[Hg] - Sitting 127.00 mm[Hg] - Sitting 97.80 Tympanic 94.00 % 72.00/ min 16.00/min 15110 214 40794 4 59.00 mm[Hg] - Lying Down 113.00 mm[Hg] - Lying Down 39479 215 32587 8 57.00 mm[Hg] - Lying Down 113.00 mm[Hg] - Lying Down
--- OUTSIDE RECORDS SUMMARY | 2024-04-10 03:20 | External Medical Summary | Continuity Of Care Document ---
Author Name Unknown Address [address] [address] Organization [facility] () Care Team Providers Care Electrician Name Role Phone DO Alonso Amy Primary Care Provider [phone] Allergies Allergy Reaction Start Date End Date [...] 3 0.1 mL 01/29 Inactiv e 2023 24854 63350 0 1 time Intrad ermal False Tubersol 5 tub. unit/0.1 mL intradermal injection solution [Tuberculin PPD] 0.1mL Intradermal 1 time For PPD 2nd Step Give 2nd Step PPD Day 1 and Read results Day 3 (schedule 7 days after 1st READ) 0.1mL 02/07 Active 2023 04693 01810 0 1 time Intrad ermal False Oxycodone 5 mg tablet [generic] 5mg By Mouth Every 4 hours as needed for severe pain for pain rate 7-10. For right pubis fracture 5mg 01/27 Inactiv e 2023 38843 86128 1 Every 4 hours as needed By Mouth False OXYCODONE 5 MG TABLET [GENERIC]IM MEDIATE RELEASE 2.5mg By Mouth Every 4 hours as needed tablet po for moderate pain, pain rate 4-6 on pain scale 1-10. For pain 2.5mg 01/27 Inactiv e 2023 Every 4 hours as needed By Mouth False Oxycodone 5 mg tablet [generic] 01/27 Inactiv e 2023 60139 32899 1 Oxycodone 5 mg tablet [generic] 5mg By Mouth Every 4 hours as needed for severe pain for pain rate 7-10. For right pubis fracture 5mg 01/29 Inactiv e 2023 58071 48907 1 Every 4 hours as needed By [...] For Muscle spasms 175mg 2023 Active 2023 73984 13112 1 Every 6 hours as needed By Mouth False Cephalexin 500 mg capsule [generic] 500mg By Mouth Every 8 hours For UTI 500mg 01/30 Inactiv e 2023 84767 42371 1 Every 8 hours By Mouth False Aspirin 81 mg chewable tablet [generic] 81 mg By Mouth Once daily For AAA 81 mg 2023 Active 2023 29589 56645 6 Once daily By Mouth False Colace 100 mg capsule 100mg By Mouth Twice daily For constipation 100mg 2023 Active 2023 15008 19946 1 Twice daily By Mouth False Enoxaparin 300 mg/3 mL subcutaneou s solution [generic] 20mg Subcutaneous Once daily For anticoag. 20mg 2023 Active 2023 77711 84812 1 Once daily Subcut aneous False Losartan 50 mg tablet [generic] 50 By Mouth Once daily For HTN 50 2023 Active 2023 51537 89634 9 Once daily By Mouth False Miralax 17 gram/dose oral powder 17 gram By Mouth Once daily For contispation 17 gram 2023 Active 2023 09121 61206 0 Once daily By Mouth False Senna 8.6 mg tablet 2 tabs By Mouth Once daily For constipation 2 tabs 2023 Active 2023 99194 82927 1 Once daily By Mouth False Simvastatin 20 mg tablet [generic] 20 mg By Mouth Once daily For Hyperlipidemi a 20 mg 2023 Active 2023 53455 03272 0 Once daily By Mouth False Spiriva with HandiHaler 18 mcg and inhalation capsules 1 capsule Inhalation Once daily For COPD 1 capsule 2023 Active 2023 42728 13792 1 Once daily Inhala tion False Ventolin HFA 90 mcg/actuati on aerosol inhaler 2 puff Inhalation Every 4 hours as needed For COPD 2 puff 2023 Active 2023 42463 16480 0 Every 4 hours as needed Inhala tion False ProSource No Carb 15 gram-60 kcal/30 mL oral liquid 30ml By Mouth Twice daily For Protien supplement 30ml 01/30 Inactiv e 2023 72785 71710 5 Twice daily By Mouth False Albuterol sulfate 2.5 mg/3 mL (0.083 %) solution for nebulizatio n [generic] 3 ml Inhalation Every 6 hours as needed For wheezing 3 ml 2023 Active 2023 44082 70862 3 Every 6 hours as needed Inhala tion False Acetaminoph en 325 mg tablet [generic] 650 mg By Mouth Every 6 hours For Mild Pain 650 mg 01/29 Inactiv e 2023 98515 18350 0 Every 6 hours By Mouth False Tylenol 325 mg tablet 2 tabs By Mouth Every 4 hours as needed For Pain DO NOT EXCEED 3000 MG APAP/24 Hours 2 tabs 2023 Active 2023 92955 65075 0 Every 4 hours as needed By Mouth False Tylenol 325 mg tablet 2 tabs By Mouth Every 4 hours as needed For Fever >100 DO NOT EXCEED 3000 MG APAP/24 Hours 2 tabs 2023 Active 2023 75260 25780 0 Every 4 hours as needed By Mouth False Dulcolax (bisacodyl) 10 mg rectal suppository One Suppository per rectum PRN if Milk of Magnisia ineffective. Give on day 5 of no BM 1 sup 2023 Active 2023 81072 88696 1 Daily as needed Rectal False Fleet Enema 19 gram-7 gram/118 mL Administer per rectum PRN one time if dulcolax suppository not effective. Give on day 6 of no BM 1 2023 Active 2023 61768 96986 6 Daily as needed Rectal False Milk of Magnesia 400 mg/5 mL oral suspension [Magnesium hydroxide] PRN 30ml By Mouth Daily as needed for constipation one time daily if no BM, on day 4 of no BM (PRN refer to instructions) For Constipation 30 mL 2023 Active 2023 32111 59724 6 Daily as needed By Mouth False Oxycodone 5 mg tablet [generic] 01/29 Inactiv e 2023 12141 18973 1 Oxycodone 5 mg tablet [generic] 5mg By Mouth Every 4 hours as needed for severe pain for pain rate 7-10. For right pubis fracture 5mg 01/31 Inactiv e 2023 44920 55111 1 Every 4 hours as needed By Mouth False Cymbalta 30 mg capsule,del ayed release 30 mg By Mouth Once daily For Depression 30 mg 02/04 Inactiv e 2023 33615 46667 0 Once daily By Mouth False Acetaminoph en 500 mg tablet [generic] 1000 mg By Mouth Twice daily not to exceed 3gm APAP in 24 hours For Pain 1000 mg 2023 Active 2023 93419 60319 8 Twice daily By Mouth False Healthshake 118 ml BID 118 ml By Mouth Twice daily Healthshake 118 ml BID For MNA of 7 - malnourished - please record total ml consumed 118 ml 2023 Active 2023 Twice daily By Mouth False Oxycodone 5 mg tablet [generic] 01/31 Inactiv e 2023 60383 06046 1 Oxycodone 5 mg tablet [generic] 5mg By Mouth Every 4 hours as needed for severe pain for pain rate 7-10. For right pubis fracture 5mg 02/01 Inactiv e 2023 73052 30826 1 Every 4 hours as needed By Mouth False Oxycodone 5 mg tablet [generic] 5mg By Mouth Every 4 hours as needed for severe pain 7-10 For right pubis fx 5mg 2023 Active 2023 16012 89435 1 Every 4 hours as needed By Mouth False Cymbalta 60 mg capsule,del ayed release 60mg Once daily depression 60mg 2023 Active 2023 55371 84644 0 Once daily By Mouth False Problems [...] Temperature SpO2 Blood Sugar Pulse Respirations 210 91673 7 78.00 mm[Hg] - Lying Down 186.00 mm[Hg] - Lying Down 109.80 NI 97.90 Forehead Scan 91.00 % 92.00/ min 18.00/min 210 71857 1 74.00 mm[Hg] - Lying Down 147.00 mm[Hg] - Lying Down 85.00/ min 211 67877 2 72.00 mm[Hg] - Sitting 138.00 mm[Hg] - Sitting 98.40 Tympanic 86.00/ min 18.00/min 211 11362 2 59.00 mm[Hg] - Sitting 117.00 mm[Hg] - Sitting 98.20 Tympanic 99.00 % 81.00/ min 18.00/min 211 74272 5 69.00 mm[Hg] - Sitting 145.00 mm[Hg] - Sitting 211 37418 9 69.00 mm[Hg] - Sitting 145.00 mm[Hg] - Sitting 211 45893 5 69.00 mm[Hg] - Sitting 145.00 mm[Hg] - Sitting 211 56494 6 69.00 mm[Hg] - Sitting 212 39272 7 59.00 mm[Hg] - Sitting 117.00 mm[Hg] - Sitting 98.20 Tympanic 81.00/ min 18.00/min 212 98030 9 97.80 Tympanic 212 37691 6 55.00 mm[Hg] - Sitting 109.00 mm[Hg] - Sitting 97.30 Tympanic 94.00 % 75.00/ min 18.00/min 212 99869 5 68.00 mm[Hg] - Sitting 128.00 mm[Hg] - Sitting 97.80 Tympanic 80.00/ min 18.00/min 15857 212 38960 4 97.50 Tympanic 63278 212 90375 9 87918 212 07934 6 71.00 mm[Hg] - Sitting 117.00 mm[Hg] - Sitting 88619 213 29429 0 60.00 mm[Hg] - Sitting 116.00 mm[Hg] - Sitting 98.40 Forehead Scan 94.00 % 72.00/ min 16.00/min 26607 213 71412 7 70.00 mm[Hg] - Sitting 118.00 mm[Hg] - Sitting 98.00 Tympanic 82.00/ min 18.00/min 29809 213 67431 3 97.90 Tympanic 16776 213 27980 5 73.00 mm[Hg] - Lying Down 127.00 mm[Hg] - Lying Down 61657 213 16574 3 87646 214 88746 1 62.00 mm[Hg] - Sitting 127.00 mm[Hg] - Sitting 97.80 Tympanic 94.00 % 72.00/ min 16.00/min 86736 214 10954 4 59.00 mm[Hg] - Lying Down 113.00 mm[Hg] - Lying Down 22056 215 38511 0 56.00 mm[Hg] - Sitting 101.00 mm[Hg] - Sitting 97.80 Tympanic 95.00 % 71.00/ min 16.00/min 67525 215 29437 5 62 NI 46541 215 42616 8 57.00 mm[Hg] - Lying Down 113.00 mm[Hg] - Lying Down 03537 216 31440 3 71.00 mm[Hg] - Sitting 161.00 mm[Hg] - Sitting 98.10 Tympanic 93.00 % 81.00/ min 16.00/min 46257 216 07170 1 72.00 mm[Hg] - Sitting 115.00 mm[Hg] - Sitting 32895 217 63741 2 14206 217 12739 4 62.00 mm[Hg] - Sitting 112.00 mm[Hg] - Sitting 26470 217 36878 3 57.00 mm[Hg] - Sitting 114.00 mm[Hg] - Sitting 98.30 Tympanic 98.00 % 78.00/ min 20.00/min 37178 217 73559 4 62.00 mm[Hg] - Lying Down 111.00 mm[Hg] - Lying Down 88226 218 06362 0 70.00 mm[Hg] - Sitting 158.00 mm[Hg] - Sitting 97.60 Tympanic 97.00 % 68.00/ min 18.00/min 218 25155 5 65.00 mm[Hg] - Lying Down 113.00 mm[Hg] - Lying Down
--- OUTSIDE RECORDS SUMMARY | 2024-04-10 03:20 | External Medical Summary | Continuity Of Care Document ---
Author Name Unknown Address [address] [address] Organization [facility] () Care Team Providers Care International Marketing Coordinator Name Role Phone DO Alonso Amy Primary Care Provider [phone] Allergies Allergy Reaction Start Date End Date [...] 3 0.1 mL 01/29 Inactiv e 2023 80564 50837 0 1 time Intrad ermal False Tubersol 5 tub. unit/0.1 mL intradermal injection solution [Tuberculin PPD] 0.1mL Intradermal 1 time For PPD 2nd Step Give 2nd Step PPD Day 1 and Read results Day 3 (schedule 7 days after 1st READ) 0.1mL 02/07 Active 2023 14273 93009 0 1 time Intrad ermal False Oxycodone 5 mg tablet [generic] 5mg By Mouth Every 4 hours as needed for severe pain for pain rate 7-10. For right pubis fracture 5mg 01/27 Inactiv e 2023 91385 78677 1 Every 4 hours as needed By Mouth False OXYCODONE 5 MG TABLET [GENERIC]IM MEDIATE RELEASE 2.5mg By Mouth Every 4 hours as needed tablet po for moderate pain, pain rate 4-6 on pain scale 1-10. For pain 2.5mg 01/27 Inactiv e 2023 Every 4 hours as needed By Mouth False Oxycodone 5 mg tablet [generic] 01/27 Inactiv e 2023 94256 83794 1 Oxycodone 5 mg tablet [generic] 5mg By Mouth Every 4 hours as needed for severe pain for pain rate 7-10. For right pubis fracture 5mg 01/29 Inactiv e 2023 92540 08702 1 Every 4 hours as needed By [...] For Muscle spasms 175mg 2023 Active 2023 10707 79257 1 Every 6 hours as needed By Mouth False Cephalexin 500 mg capsule [generic] 500mg By Mouth Every 8 hours For UTI 500mg 01/30 Inactiv e 2023 02724 19110 1 Every 8 hours By Mouth False Aspirin 81 mg chewable tablet [generic] 81 mg By Mouth Once daily For AAA 81 mg 2023 Active 2023 67313 02327 6 Once daily By Mouth False Colace 100 mg capsule 100mg By Mouth Twice daily For constipation 100mg 2023 Active 2023 70413 04757 1 Twice daily By Mouth False Enoxaparin 300 mg/3 mL subcutaneou s solution [generic] 20mg Subcutaneous Once daily For anticoag. 20mg 2023 Active 2023 91807 41573 1 Once daily Subcut aneous False Losartan 50 mg tablet [generic] 50 By Mouth Once daily For HTN 50 2023 Active 2023 18907 35137 9 Once daily By Mouth False Miralax 17 gram/dose oral powder 17 gram By Mouth Once daily For contispation 17 gram 2023 Active 2023 08786 71279 0 Once daily By Mouth False Senna 8.6 mg tablet 2 tabs By Mouth Once daily For constipation 2 tabs 2023 Active 2023 21839 10464 1 Once daily By Mouth False Simvastatin 20 mg tablet [generic] 20 mg By Mouth Once daily For Hyperlipidemi a 20 mg 2023 Active 2023 63460 96758 0 Once daily By Mouth False Spiriva with HandiHaler 18 mcg and inhalation capsules 1 capsule Inhalation Once daily For COPD 1 capsule 2023 Active 2023 53963 92711 1 Once daily Inhala tion False Ventolin HFA 90 mcg/actuati on aerosol inhaler 2 puff Inhalation Every 4 hours as needed For COPD 2 puff 2023 Active 2023 12283 30521 0 Every 4 hours as needed Inhala tion False ProSource No Carb 15 gram-60 kcal/30 mL oral liquid 30ml By Mouth Twice daily For Protien supplement 30ml 01/30 Inactiv e 2023 77123 80185 5 Twice daily By Mouth False Albuterol sulfate 2.5 mg/3 mL (0.083 %) solution for nebulizatio n [generic] 3 ml Inhalation Every 6 hours as needed For wheezing 3 ml 2023 Active 2023 63933 66683 3 Every 6 hours as needed Inhala tion False Acetaminoph en 325 mg tablet [generic] 650 mg By Mouth Every 6 hours For Mild Pain 650 mg 01/29 Inactiv e 2023 07987 52719 0 Every 6 hours By Mouth False Tylenol 325 mg tablet 2 tabs By Mouth Every 4 hours as needed For Pain DO NOT EXCEED 3000 MG APAP/24 Hours 2 tabs 2023 Active 2023 43536 85239 0 Every 4 hours as needed By Mouth False Tylenol 325 mg tablet 2 tabs By Mouth Every 4 hours as needed For Fever >100 DO NOT EXCEED 3000 MG APAP/24 Hours 2 tabs 2023 Active 2023 51031 98291 0 Every 4 hours as needed By Mouth False Dulcolax (bisacodyl) 10 mg rectal suppository One Suppository per rectum PRN if Milk of Magnisia ineffective. Give on day 5 of no BM 1 sup 2023 Active 2023 85722 86149 1 Daily as needed Rectal False Fleet Enema 19 gram-7 gram/118 mL Administer per rectum PRN one time if dulcolax suppository not effective. Give on day 6 of no BM 1 2023 Active 2023 65645 21840 6 Daily as needed Rectal False Milk of Magnesia 400 mg/5 mL oral suspension [Magnesium hydroxide] PRN 30ml By Mouth Daily as needed for constipation one time daily if no BM, on day 4 of no BM (PRN refer to instructions) For Constipation 30 mL 2023 Active 2023 01315 30138 6 Daily as needed By Mouth False Oxycodone 5 mg tablet [generic] 01/29 Inactiv e 2023 83300 35940 1 Oxycodone 5 mg tablet [generic] 5mg By Mouth Every 4 hours as needed for severe pain for pain rate 7-10. For right pubis fracture 5mg 01/31 Inactiv e 2023 58848 05433 1 Every 4 hours as needed By Mouth False Cymbalta 30 mg capsule,del ayed release 30 mg By Mouth Once daily For Depression 30 mg 2023 Active 2023 91354 99496 0 Once daily By Mouth False Acetaminoph en 500 mg tablet [generic] 1000 mg By Mouth Twice daily not to exceed 3gm APAP in 24 hours For Pain 1000 mg 2023 Active 2023 32314 85140 8 Twice daily By Mouth False Healthshake 118 ml BID 118 ml By Mouth Twice daily Healthshake 118 ml BID For MNA of 7 - malnourished - please record total ml consumed 118 ml 2023 Active 2023 Twice daily By Mouth False Oxycodone 5 mg tablet [generic] 01/31 Inactiv e 2023 36240 73439 1 Oxycodone 5 mg tablet [generic] 5mg By Mouth Every 4 hours as needed for severe pain for pain rate 7-10. For right pubis fracture 5mg 02/01 Inactiv e 2023 03556 63532 1 Every 4 hours as needed By Mouth False Oxycodone 5 mg tablet [generic] 5mg By Mouth Every 4 hours as needed for severe pain 7-10 For right pubis fx 5mg 2023 Active 2023 23244 72810 1 Every 4 hours as needed By [...] Temperature SpO2 Blood Sugar Pulse Respirations 210 02012 7 78.00 mm[Hg] - Lying Down 186.00 mm[Hg] - Lying Down 109.80 NI 97.90 Forehead Scan 91.00 % 92.00/ min 18.00/min 210 58422 1 74.00 mm[Hg] - Lying Down 147.00 mm[Hg] - Lying Down 85.00/ min 211 12096 2 72.00 mm[Hg] - Sitting 138.00 mm[Hg] - Sitting 98.40 Tympanic 86.00/ min 18.00/min 46025 211 55055 2 59.00 mm[Hg] - Sitting 117.00 mm[Hg] - Sitting 98.20 Tympanic 99.00 % 81.00/ min 18.00/min 211 15732 5 69.00 mm[Hg] - Sitting 145.00 mm[Hg] - Sitting 211 56647 9 69.00 mm[Hg] - Sitting 145.00 mm[Hg] - Sitting 47896 211 80614 5 69.00 mm[Hg] - Sitting 145.00 mm[Hg] - Sitting 06226 211 22413 6 69.00 mm[Hg] - Sitting 88542 212 04645 7 59.00 mm[Hg] - Sitting 117.00 mm[Hg] - Sitting 98.20 Tympanic 81.00/ min 18.00/min 37306 212 06705 9 97.80 Tympanic 91545 212 96189 6 55.00 mm[Hg] - Sitting 109.00 mm[Hg] - Sitting 97.30 Tympanic 94.00 % 75.00/ min 18.00/min 36795 212 09785 5 68.00 mm[Hg] - Sitting 128.00 mm[Hg] - Sitting 97.80 Tympanic 80.00/ min 18.00/min 89884 212 77049 4 97.50 Tympanic 60294 212 01844 9 30692 212 11696 6 71.00 mm[Hg] - Sitting 117.00 mm[Hg] - Sitting 36069 213 00315 0 60.00 mm[Hg] - Sitting 116.00 mm[Hg] - Sitting 98.40 Forehead Scan 94.00 % 72.00/ min 16.00/min 04017 213 05000 7 70.00 mm[Hg] - Sitting 118.00 mm[Hg] - Sitting 98.00 Tympanic 82.00/ min 18.00/min 20975 213 54785 3 97.90 Tympanic 82172 213 27651 5 73.00 mm[Hg] - Lying Down 127.00 mm[Hg] - Lying Down 75389 213 43645 3 99256 214 94029 1 62.00 mm[Hg] - Sitting 127.00 mm[Hg] - Sitting 97.80 Tympanic 94.00 % 72.00/ min 16.00/min 88632 214 85752 4 59.00 mm[Hg] - Lying Down 113.00 mm[Hg] - Lying Down 72026 215 91739 0 56.00 mm[Hg] - Sitting 101.00 mm[Hg] - Sitting 97.80 Tympanic 95.00 % 71.00/ min 16.00/min 69213 215 88052 5 62 NI 46410 215 23274 8 57.00 mm[Hg] - Lying Down 113.00 mm[Hg] - Lying Down 46832 216 96027 3 71.00 mm[Hg] - Sitting 161.00 mm[Hg] - Sitting 98.10 Tympanic 93.00 % 81.00/ min 16.00/min 03492 216 91962 1 72.00 mm[Hg] - Sitting 115.00 mm[Hg] - Sitting 41598 217 56688 2 57373 217 84909 4 62.00 mm[Hg] - Sitting 112.00 mm[Hg] - Sitting 01503 217 14263 3 57.00 mm[Hg] - Sitting 114.00 mm[Hg] - Sitting 98.30 Tympanic 98.00 % 78.00/ min 20.00/min 25165 217 34902 4 62.00 mm[Hg] - Lying Down 111.00 mm[Hg] - Lying Down
--- OUTSIDE RECORDS SUMMARY | 2024-04-10 03:20 | External Medical Summary | Continuity Of Care Document ---
Author Name Unknown Address [address] [address] Organization [facility] () Care Team Providers Care Cobbler Upper Name Role Phone DO Alonso Amy Primary Care Provider [phone] Allergies Allergy Reaction Start Date End Date [...] 3 0.1 mL 01/29 Inactiv e 2023 45362 65422 0 1 time Intrad ermal False Tubersol 5 tub. unit/0.1 mL intradermal injection solution [Tuberculin PPD] 0.1mL Intradermal 1 time For PPD 2nd Step Give 2nd Step PPD Day 1 and Read results Day 3 (schedule 7 days after 1st READ) 0.1mL 02/07 Active 2023 22609 13022 0 1 time Intrad ermal False Oxycodone 5 mg tablet [generic] 5mg By Mouth Every 4 hours as needed for severe pain for pain rate 7-10. For right pubis fracture 5mg 01/27 Inactiv e 2023 09402 86574 1 Every 4 hours as needed By Mouth False OXYCODONE 5 MG TABLET [GENERIC]IM MEDIATE RELEASE 2.5mg By Mouth Every 4 hours as needed tablet po for moderate pain, pain rate 4-6 on pain scale 1-10. For pain 2.5mg 01/27 Inactiv e 2023 Every 4 hours as needed By Mouth False Oxycodone 5 mg tablet [generic] 01/27 Inactiv e 2023 37417 87855 1 Oxycodone 5 mg tablet [generic] 5mg By Mouth Every 4 hours as needed for severe pain for pain rate 7-10. For right pubis fracture 5mg 01/29 Inactiv e 2023 60503 87811 1 Every 4 hours as needed By [...] For Muscle spasms 175mg 2023 Active 2023 41790 98497 1 Every 6 hours as needed By Mouth False Cephalexin 500 mg capsule [generic] 500mg By Mouth Every 8 hours For UTI 500mg 01/30 Inactiv e 2023 07076 69785 1 Every 8 hours By Mouth False Aspirin 81 mg chewable tablet [generic] 81 mg By Mouth Once daily For AAA 81 mg 2023 Active 2023 43796 35478 6 Once daily By Mouth False Colace 100 mg capsule 100mg By Mouth Twice daily For constipation 100mg 2023 Active 2023 60781 11279 1 Twice daily By Mouth False Enoxaparin 300 mg/3 mL subcutaneou s solution [generic] 20mg Subcutaneous Once daily For anticoag. 20mg 2023 Active 2023 64209 29659 1 Once daily Subcut aneous False Losartan 50 mg tablet [generic] 50 By Mouth Once daily For HTN 50 2023 Active 2023 90587 99206 9 Once daily By Mouth False Miralax 17 gram/dose oral powder 17 gram By Mouth Once daily For contispation 17 gram 2023 Active 2023 65984 26760 0 Once daily By Mouth False Senna 8.6 mg tablet 2 tabs By Mouth Once daily For constipation 2 tabs 2023 Active 2023 96362 05466 1 Once daily By Mouth False Simvastatin 20 mg tablet [generic] 20 mg By Mouth Once daily For Hyperlipidemi a 20 mg 2023 Active 2023 10266 15067 0 Once daily By Mouth False Spiriva with HandiHaler 18 mcg and inhalation capsules 1 capsule Inhalation Once daily For COPD 1 capsule 2023 Active 2023 35715 67725 1 Once daily Inhala tion False Ventolin HFA 90 mcg/actuati on aerosol inhaler 2 puff Inhalation Every 4 hours as needed For COPD 2 puff 2023 Active 2023 83624 26811 0 Every 4 hours as needed Inhala tion False ProSource No Carb 15 gram-60 kcal/30 mL oral liquid 30ml By Mouth Twice daily For Protien supplement 30ml 01/30 Inactiv e 2023 29958 36542 5 Twice daily By Mouth False Albuterol sulfate 2.5 mg/3 mL (0.083 %) solution for nebulizatio n [generic] 3 ml Inhalation Every 6 hours as needed For wheezing 3 ml 2023 Active 2023 82363 54693 3 Every 6 hours as needed Inhala tion False Acetaminoph en 325 mg tablet [generic] 650 mg By Mouth Every 6 hours For Mild Pain 650 mg 01/29 Inactiv e 2023 28342 21718 0 Every 6 hours By Mouth False Tylenol 325 mg tablet 2 tabs By Mouth Every 4 hours as needed For Pain DO NOT EXCEED 3000 MG APAP/24 Hours 2 tabs 2023 Active 2023 33996 34313 0 Every 4 hours as needed By Mouth False Tylenol 325 mg tablet 2 tabs By Mouth Every 4 hours as needed For Fever >100 DO NOT EXCEED 3000 MG APAP/24 Hours 2 tabs 2023 Active 2023 62828 77112 0 Every 4 hours as needed By Mouth False Dulcolax (bisacodyl) 10 mg rectal suppository One Suppository per rectum PRN if Milk of Magnisia ineffective. Give on day 5 of no BM 1 sup 2023 Active 2023 87767 62492 1 Daily as needed Rectal False Fleet Enema 19 gram-7 gram/118 mL Administer per rectum PRN one time if dulcolax suppository not effective. Give on day 6 of no BM 1 2023 Active 2023 10633 48565 6 Daily as needed Rectal False Milk of Magnesia 400 mg/5 mL oral suspension [Magnesium hydroxide] PRN 30ml By Mouth Daily as needed for constipation one time daily if no BM, on day 4 of no BM (PRN refer to instructions) For Constipation 30 mL 2023 Active 2023 16149 12099 6 Daily as needed By Mouth False Oxycodone 5 mg tablet [generic] 01/29 Inactiv e 2023 88532 19140 1 Oxycodone 5 mg tablet [generic] 5mg By Mouth Every 4 hours as needed for severe pain for pain rate 7-10. For right pubis fracture 5mg 01/31 Inactiv e 2023 53420 73179 1 Every 4 hours as needed By Mouth False Cymbalta 30 mg capsule,del ayed release 30 mg By Mouth Once daily For Depression 30 mg 2023 Active 2023 73716 55070 0 Once daily By Mouth False Acetaminoph en 500 mg tablet [generic] 1000 mg By Mouth Twice daily not to exceed 3gm APAP in 24 hours For Pain 1000 mg 2023 Active 2023 69679 31477 8 Twice daily By Mouth False Healthshake 118 ml BID 118 ml By Mouth Twice daily Healthshake 118 ml BID For MNA of 7 - malnourished - please record total ml consumed 118 ml 2023 Active 2023 Twice daily By Mouth False Oxycodone 5 mg tablet [generic] 01/31 Inactiv e 2023 45611 29872 1 Oxycodone 5 mg tablet [generic] 5mg By Mouth Every 4 hours as needed for severe pain for pain rate 7-10. For right pubis fracture 5mg 02/01 Inactiv e 2023 21357 27287 1 Every 4 hours as needed By Mouth False Oxycodone 5 mg tablet [generic] 5mg By Mouth Every 4 hours as needed for severe pain 7-10 For right pubis fx 5mg 2023 Active 2023 62234 95840 1 Every 4 hours as needed By [...] Temperature SpO2 Blood Sugar Pulse Respirations 210 84351 7 78.00 mm[Hg] - Lying Down 186.00 mm[Hg] - Lying Down 109.80 NI 97.90 Forehead Scan 91.00 % 92.00/ min 18.00/min 210 89437 1 74.00 mm[Hg] - Lying Down 147.00 mm[Hg] - Lying Down 85.00/ min 211 51071 2 72.00 mm[Hg] - Sitting 138.00 mm[Hg] - Sitting 98.40 Tympanic 86.00/ min 18.00/min 52301 211 40646 2 59.00 mm[Hg] - Sitting 117.00 mm[Hg] - Sitting 98.20 Tympanic 99.00 % 81.00/ min 18.00/min 211 29353 5 69.00 mm[Hg] - Sitting 145.00 mm[Hg] - Sitting 211 78457 9 69.00 mm[Hg] - Sitting 145.00 mm[Hg] - Sitting 68995 211 97952 5 69.00 mm[Hg] - Sitting 145.00 mm[Hg] - Sitting 22800 211 10934 6 69.00 mm[Hg] - Sitting 22446 212 14824 7 59.00 mm[Hg] - Sitting 117.00 mm[Hg] - Sitting 98.20 Tympanic 81.00/ min 18.00/min 00778 212 03003 9 97.80 Tympanic 40586 212 22762 6 55.00 mm[Hg] - Sitting 109.00 mm[Hg] - Sitting 97.30 Tympanic 94.00 % 75.00/ min 18.00/min 41802 212 48401 5 68.00 mm[Hg] - Sitting 128.00 mm[Hg] - Sitting 97.80 Tympanic 80.00/ min 18.00/min 25198 212 35868 4 97.50 Tympanic 79594 212 63103 9 57240 212 83038 6 71.00 mm[Hg] - Sitting 117.00 mm[Hg] - Sitting 54760 213 37447 0 60.00 mm[Hg] - Sitting 116.00 mm[Hg] - Sitting 98.40 Forehead Scan 94.00 % 72.00/ min 16.00/min 00065 213 95551 7 70.00 mm[Hg] - Sitting 118.00 mm[Hg] - Sitting 98.00 Tympanic 82.00/ min 18.00/min 40455 213 59213 3 97.90 Tympanic 31814 213 25320 5 73.00 mm[Hg] - Lying Down 127.00 mm[Hg] - Lying Down 60522 213 81353 3 35805 214 82655 1 62.00 mm[Hg] - Sitting 127.00 mm[Hg] - Sitting 97.80 Tympanic 94.00 % 72.00/ min 16.00/min 29100 214 34659 4 59.00 mm[Hg] - Lying Down 113.00 mm[Hg] - Lying Down 54424 215 72996 0 56.00 mm[Hg] - Sitting 101.00 mm[Hg] - Sitting 97.80 Tympanic 95.00 % 71.00/ min 16.00/min 74818 215 58105 5 62 NI [address]107 215 05900 8 57.00 mm[Hg] - Lying Down 113.00 mm[Hg] - Lying Down 51151 216 12255 3 71.00 mm[Hg] - Sitting 161.00 mm[Hg] - Sitting 98.10 Tympanic 93.00 % 81.00/ min 16.00/min 20634 216 60409 1 72.00 mm[Hg] - Sitting 115.00 mm[Hg] - Sitting 47818 217 08090 2 37145 217 24663 4 62.00 mm[Hg] - Sitting 112.00 mm[Hg] - Sitting 19861 217 68615 3 57.00 mm[Hg] - Sitting 114.00 mm[Hg] - Sitting 98.30 Tympanic 98.00 % 78.00/ min 20.00/min 08507 217 57297 4 62.00 mm[Hg] - Lying Down 111.00 mm[Hg] - Lying Down
--- OUTSIDE RECORDS SUMMARY | 2024-04-10 03:20 | External Medical Summary | Continuity Of Care Document ---
Author Name Unknown Address [address] [address] Organization [facility] () Care Team Providers Care Manager Managing Name Role Phone DO Alonso Amy Primary Care Provider [phone] Allergies Allergy Reaction Start Date End Date [...] 3 0.1 mL 01/29 Inactiv e 2023 65115 11652 0 1 time Intrad ermal False Tubersol 5 tub. unit/0.1 mL intradermal injection solution [Tuberculin PPD] 0.1mL Intradermal 1 time For PPD 2nd Step Give 2nd Step PPD Day 1 and Read results Day 3 (schedule 7 days after 1st READ) 0.1mL 02/07 Active 2023 66815 94241 0 1 time Intrad ermal False Oxycodone 5 mg tablet [generic] 5mg By Mouth Every 4 hours as needed for severe pain for pain rate 7-10. For right pubis fracture 5mg 01/27 Inactiv e 2023 95314 87884 1 Every 4 hours as needed By Mouth False OXYCODONE 5 MG TABLET [GENERIC]IM MEDIATE RELEASE 2.5mg By Mouth Every 4 hours as needed tablet po for moderate pain, pain rate 4-6 on pain scale 1-10. For pain 2.5mg 01/27 Inactiv e 2023 Every 4 hours as needed By Mouth False Oxycodone 5 mg tablet [generic] 01/27 Inactiv e 2023 58789 52789 1 Oxycodone 5 mg tablet [generic] 5mg By Mouth Every 4 hours as needed for severe pain for pain rate 7-10. For right pubis fracture 5mg 01/29 Inactiv e 2023 13866 86901 1 Every 4 hours as needed By [...] For Muscle spasms 175mg 2023 Active 2023 62486 12053 1 Every 6 hours as needed By Mouth False Cephalexin 500 mg capsule [generic] 500mg By Mouth Every 8 hours For UTI 500mg 01/30 Inactiv e 2023 65747 33011 1 Every 8 hours By Mouth False Aspirin 81 mg chewable tablet [generic] 81 mg By Mouth Once daily For AAA 81 mg 2023 Active 2023 51292 49351 6 Once daily By Mouth False Colace 100 mg capsule 100mg By Mouth Twice daily For constipation 100mg 2023 Active 2023 67509 43982 1 Twice daily By Mouth False Enoxaparin 300 mg/3 mL subcutaneou s solution [generic] 20mg Subcutaneous Once daily For anticoag. 20mg 2023 Active 2023 95123 67670 1 Once daily Subcut aneous False Losartan 50 mg tablet [generic] 50 By Mouth Once daily For HTN 50 2023 Active 2023 37591 41382 9 Once daily By Mouth False Miralax 17 gram/dose oral powder 17 gram By Mouth Once daily For contispation 17 gram 2023 Active 2023 72663 00274 0 Once daily By Mouth False Senna 8.6 mg tablet 2 tabs By Mouth Once daily For constipation 2 tabs 2023 Active 2023 50514 18357 1 Once daily By Mouth False Simvastatin 20 mg tablet [generic] 20 mg By Mouth Once daily For Hyperlipidemi a 20 mg 2023 Active 2023 53672 98675 0 Once daily By Mouth False Spiriva with HandiHaler 18 mcg and inhalation capsules 1 capsule Inhalation Once daily For COPD 1 capsule 2023 Active 2023 21735 52161 1 Once daily Inhala tion False Ventolin HFA 90 mcg/actuati on aerosol inhaler 2 puff Inhalation Every 4 hours as needed For COPD 2 puff 2023 Active 2023 70946 57535 0 Every 4 hours as needed Inhala tion False ProSource No Carb 15 gram-60 kcal/30 mL oral liquid 30ml By Mouth Twice daily For Protien supplement 30ml 01/30 Inactiv e 2023 46649 50654 5 Twice daily By Mouth False Albuterol sulfate 2.5 mg/3 mL (0.083 %) solution for nebulizatio n [generic] 3 ml Inhalation Every 6 hours as needed For wheezing 3 ml 2023 Active 2023 57903 72141 3 Every 6 hours as needed Inhala tion False Acetaminoph en 325 mg tablet [generic] 650 mg By Mouth Every 6 hours For Mild Pain 650 mg 01/29 Inactiv e 2023 46783 98525 0 Every 6 hours By Mouth False Tylenol 325 mg tablet 2 tabs By Mouth Every 4 hours as needed For Pain DO NOT EXCEED 3000 MG APAP/24 Hours 2 tabs 2023 Active 2023 49158 93100 0 Every 4 hours as needed By Mouth False Tylenol 325 mg tablet 2 tabs By Mouth Every 4 hours as needed For Fever >100 DO NOT EXCEED 3000 MG APAP/24 Hours 2 tabs 2023 Active 2023 27231 85235 0 Every 4 hours as needed By Mouth False Dulcolax (bisacodyl) 10 mg rectal suppository One Suppository per rectum PRN if Milk of Magnisia ineffective. Give on day 5 of no BM 1 sup 2023 Active 2023 05733 49684 1 Daily as needed Rectal False Fleet Enema 19 gram-7 gram/118 mL Administer per rectum PRN one time if dulcolax suppository not effective. Give on day 6 of no BM 1 2023 Active 2023 83739 68017 6 Daily as needed Rectal False Milk of Magnesia 400 mg/5 mL oral suspension [Magnesium hydroxide] PRN 30ml By Mouth Daily as needed for constipation one time daily if no BM, on day 4 of no BM (PRN refer to instructions) For Constipation 30 mL 2023 Active 2023 01086 24032 6 Daily as needed By Mouth False Oxycodone 5 mg tablet [generic] 01/29 Inactiv e 2023 50993 13795 1 Oxycodone 5 mg tablet [generic] 5mg By Mouth Every 4 hours as needed for severe pain for pain rate 7-10. For right pubis fracture 5mg 01/31 Inactiv e 2023 98305 58098 1 Every 4 hours as needed By Mouth False Cymbalta 30 mg capsule,del ayed release 30 mg By Mouth Once daily For Depression 30 mg 2023 Active 2023 48669 91047 0 Once daily By Mouth False Acetaminoph en 500 mg tablet [generic] 1000 mg By Mouth Twice daily not to exceed 3gm APAP in 24 hours For Pain 1000 mg 2023 Active 2023 92681 53787 8 Twice daily By Mouth False Healthshake 118 ml BID 118 ml By Mouth Twice daily Healthshake 118 ml BID For MNA of 7 - malnourished - please record total ml consumed 118 ml 2023 Active 2023 Twice daily By Mouth False Oxycodone 5 mg tablet [generic] 01/31 Inactiv e 2023 45903 83875 1 Oxycodone 5 mg tablet [generic] 5mg By Mouth Every 4 hours as needed for severe pain for pain rate 7-10. For right pubis fracture 5mg 2023 Active 2023 80324 19443 1 Every 4 hours as needed By [...] Temperature SpO2 Blood Sugar Pulse Respirations 210 89727 7 78.00 mm[Hg] - Lying Down 186.00 mm[Hg] - Lying Down 109.80 NI 97.90 Forehead Scan 91.00 % 92.00/ min 18.00/min 210 93894 1 74.00 mm[Hg] - Lying Down 147.00 mm[Hg] - Lying Down 85.00/ min 211 03505 2 72.00 mm[Hg] - Sitting 138.00 mm[Hg] - Sitting 98.40 Tympanic 86.00/ min 18.00/min 211 14381 2 59.00 mm[Hg] - Sitting 117.00 mm[Hg] - Sitting 98.20 Tympanic 99.00 % 81.00/ min 18.00/min 211 50230 5 69.00 mm[Hg] - Sitting 145.00 mm[Hg] - Sitting 211 65921 9 69.00 mm[Hg] - Sitting 145.00 mm[Hg] - Sitting 211 41656 5 69.00 mm[Hg] - Sitting 145.00 mm[Hg] - Sitting 211 86987 6 69.00 mm[Hg] - Sitting 212 74926 7 59.00 mm[Hg] - Sitting 117.00 mm[Hg] - Sitting 98.20 Tympanic 81.00/ min 18.00/min 99231 212 99752 9 97.80 Tympanic 212 44154 6 55.00 mm[Hg] - Sitting 109.00 mm[Hg] - Sitting 97.30 Tympanic 94.00 % 75.00/ min 18.00/min 58135 212 43459 5 68.00 mm[Hg] - Sitting 128.00 mm[Hg] - Sitting 97.80 Tympanic 80.00/ min 18.00/min 89295 212 49556 4 97.50 Tympanic 46250 212 48167 9 79324 212 74027 6 71.00 mm[Hg] - Sitting 117.00 mm[Hg] - Sitting 213 65895 0 60.00 mm[Hg] - Sitting 116.00 mm[Hg] - Sitting 98.40 Forehead Scan 94.00 % 72.00/ min 16.00/min 213 23785 7 70.00 mm[Hg] - Sitting 118.00 mm[Hg] - Sitting 98.00 Tympanic 82.00/ min 18.00/min 66854 213 95562 3 97.90 Tympanic 07975 213 20233 5 73.00 mm[Hg] - Lying Down 127.00 mm[Hg] - Lying Down 02251 213 76393 3 45884 214 85560 1 62.00 mm[Hg] - Sitting 127.00 mm[Hg] - Sitting 97.80 Tympanic 94.00 % 72.00/ min 16.00/min 92472 214 33730 4 59.00 mm[Hg] - Lying Down 113.00 mm[Hg] - Lying Down
--- OUTSIDE RECORDS SUMMARY | 2024-04-10 03:20 | External Medical Summary | Continuity Of Care Document ---
Author Name Unknown Address [address] [address] Organization [facility] () Care Team Providers Care Food Service Tray Attendant Name Role Phone DO Alonso Amy Primary Care Provider [phone] Allergies Allergy Reaction Start Date End Date [...] 3 0.1 mL 01/29 Inactiv e 2023 37723 46738 0 1 time Intrad ermal False Tubersol 5 tub. unit/0.1 mL intradermal injection solution [Tuberculin PPD] 0.1mL Intradermal 1 time For PPD 2nd Step Give 2nd Step PPD Day 1 and Read results Day 3 (schedule 7 days after 1st READ) 0.1mL 02/07 Active 2023 61377 97529 0 1 time Intrad ermal False Oxycodone 5 mg tablet [generic] 5mg By Mouth Every 4 hours as needed for severe pain for pain rate 7-10. For right pubis fracture 5mg 01/27 Inactiv e 2023 38672 28899 1 Every 4 hours as needed By Mouth False OXYCODONE 5 MG TABLET [GENERIC]IM MEDIATE RELEASE 2.5mg By Mouth Every 4 hours as needed tablet po for moderate pain, pain rate 4-6 on pain scale 1-10. For pain 2.5mg 01/27 Inactiv e 2023 Every 4 hours as needed By Mouth False Oxycodone 5 mg tablet [generic] 01/27 Inactiv e 2023 17312 67361 1 Oxycodone 5 mg tablet [generic] 5mg By Mouth Every 4 hours as needed for severe pain for pain rate 7-10. For right pubis fracture 5mg 01/29 Inactiv e 2023 93327 28396 1 Every 4 hours as needed By [...] For Muscle spasms 175mg 2023 Active 2023 38603 36289 1 Every 6 hours as needed By Mouth False Cephalexin 500 mg capsule [generic] 500mg By Mouth Every 8 hours For UTI 500mg 01/30 Inactiv e 2023 97019 87851 1 Every 8 hours By Mouth False Aspirin 81 mg chewable tablet [generic] 81 mg By Mouth Once daily For AAA 81 mg 2023 Active 2023 96427 92777 6 Once daily By Mouth False Colace 100 mg capsule 100mg By Mouth Twice daily For constipation 100mg 2023 Active 2023 62483 66191 1 Twice daily By Mouth False Enoxaparin 300 mg/3 mL subcutaneou s solution [generic] 20mg Subcutaneous Once daily For anticoag. 20mg 2023 Active 2023 75038 97101 1 Once daily Subcut aneous False Losartan 50 mg tablet [generic] 50 By Mouth Once daily For HTN 50 2023 Active 2023 67996 90132 9 Once daily By Mouth False Miralax 17 gram/dose oral powder 17 gram By Mouth Once daily For contispation 17 gram 2023 Active 2023 96821 24096 0 Once daily By Mouth False Senna 8.6 mg tablet 2 tabs By Mouth Once daily For constipation 2 tabs 2023 Active 2023 25399 69259 1 Once daily By Mouth False Simvastatin 20 mg tablet [generic] 20 mg By Mouth Once daily For Hyperlipidemi a 20 mg 2023 Active 2023 43997 17414 0 Once daily By Mouth False Spiriva with HandiHaler 18 mcg and inhalation capsules 1 capsule Inhalation Once daily For COPD 1 capsule 2023 Active 2023 58864 16067 1 Once daily Inhala tion False Ventolin HFA 90 mcg/actuati on aerosol inhaler 2 puff Inhalation Every 4 hours as needed For COPD 2 puff 2023 Active 2023 45981 39230 0 Every 4 hours as needed Inhala tion False ProSource No Carb 15 gram-60 kcal/30 mL oral liquid 30ml By Mouth Twice daily For Protien supplement 30ml 01/30 Inactiv e 2023 85668 90877 5 Twice daily By Mouth False Albuterol sulfate 2.5 mg/3 mL (0.083 %) solution for nebulizatio n [generic] 3 ml Inhalation Every 6 hours as needed For wheezing 3 ml 2023 Active 2023 52587 15068 3 Every 6 hours as needed Inhala tion False Acetaminoph en 325 mg tablet [generic] 650 mg By Mouth Every 6 hours For Mild Pain 650 mg 01/29 Inactiv e 2023 62290 60392 0 Every 6 hours By Mouth False Tylenol 325 mg tablet 2 tabs By Mouth Every 4 hours as needed For Pain DO NOT EXCEED 3000 MG APAP/24 Hours 2 tabs 2023 Active 2023 58330 14748 0 Every 4 hours as needed By Mouth False Tylenol 325 mg tablet 2 tabs By Mouth Every 4 hours as needed For Fever >100 DO NOT EXCEED 3000 MG APAP/24 Hours 2 tabs 2023 Active 2023 89744 30995 0 Every 4 hours as needed By Mouth False Dulcolax (bisacodyl) 10 mg rectal suppository One Suppository per rectum PRN if Milk of Magnisia ineffective. Give on day 5 of no BM 1 sup 2023 Active 2023 76066 70978 1 Daily as needed Rectal False Fleet Enema 19 gram-7 gram/118 mL Administer per rectum PRN one time if dulcolax suppository not effective. Give on day 6 of no BM 1 2023 Active 2023 16065 97609 6 Daily as needed Rectal False Milk of Magnesia 400 mg/5 mL oral suspension [Magnesium hydroxide] PRN 30ml By Mouth Daily as needed for constipation one time daily if no BM, on day 4 of no BM (PRN refer to instructions) For Constipation 30 mL 2023 Active 2023 74224 03088 6 Daily as needed By Mouth False Oxycodone 5 mg tablet [generic] 01/29 Inactiv e 2023 01270 85236 1 Oxycodone 5 mg tablet [generic] 5mg By Mouth Every 4 hours as needed for severe pain for pain rate 7-10. For right pubis fracture 5mg 01/31 Inactiv e 2023 93212 62226 1 Every 4 hours as needed By Mouth False Cymbalta 30 mg capsule,del ayed release 30 mg By Mouth Once daily For Depression 30 mg 2023 Active 2023 64515 04350 0 Once daily By Mouth False Acetaminoph en 500 mg tablet [generic] 1000 mg By Mouth Twice daily not to exceed 3gm APAP in 24 hours For Pain 1000 mg 2023 Active 2023 73439 44622 8 Twice daily By Mouth False Healthshake 118 ml BID 118 ml By Mouth Twice daily Healthshake 118 ml BID For MNA of 7 - malnourished - please record total ml consumed 118 ml 2023 Active 2023 Twice daily By Mouth False Oxycodone 5 mg tablet [generic] 01/31 Inactiv e 2023 19833 81261 1 Oxycodone 5 mg tablet [generic] 5mg By Mouth Every 4 hours as needed for severe pain for pain rate 7-10. For right pubis fracture 5mg 02/01 Inactiv e 2023 57019 43994 1 Every 4 hours as needed By Mouth False Oxycodone 5 mg tablet [generic] 5mg By Mouth Every 4 hours as needed for severe pain 7-10 For right pubis fx 5mg 2023 Active 2023 18627 45244 1 Every 4 hours as needed [...] Temperature SpO2 Blood Sugar Pulse Respirations 210 71965 7 78.00 mm[Hg] - Lying Down 186.00 mm[Hg] - Lying Down 109.80 NI 97.90 Forehead Scan 91.00 % 92.00/ min 18.00/min 210 67798 1 74.00 mm[Hg] - Lying Down 147.00 mm[Hg] - Lying Down 85.00/ min 211 25187 2 72.00 mm[Hg] - Sitting 138.00 mm[Hg] - Sitting 98.40 Tympanic 86.00/ min 18.00/min 48086 211 11004 2 59.00 mm[Hg] - Sitting 117.00 mm[Hg] - Sitting 98.20 Tympanic 99.00 % 81.00/ min 18.00/min 211 65076 5 69.00 mm[Hg] - Sitting 145.00 mm[Hg] - Sitting 211 53215 9 69.00 mm[Hg] - Sitting 145.00 mm[Hg] - Sitting 97833 211 93479 5 69.00 mm[Hg] - Sitting 145.00 mm[Hg] - Sitting 44766 211 26437 6 69.00 mm[Hg] - Sitting 71378 212 56639 7 59.00 mm[Hg] - Sitting 117.00 mm[Hg] - Sitting 98.20 Tympanic 81.00/ min 18.00/min 33460 212 17583 9 97.80 Tympanic 41765 212 71768 6 55.00 mm[Hg] - Sitting 109.00 mm[Hg] - Sitting 97.30 Tympanic 94.00 % 75.00/ min 18.00/min 49225 212 95341 5 68.00 mm[Hg] - Sitting 128.00 mm[Hg] - Sitting 97.80 Tympanic 80.00/ min 18.00/min 07374 212 87699 4 97.50 Tympanic 64900 212 72159 9 62362 212 12972 6 71.00 mm[Hg] - Sitting 117.00 mm[Hg] - Sitting 39949 213 47764 0 60.00 mm[Hg] - Sitting 116.00 mm[Hg] - Sitting 98.40 Forehead Scan 94.00 % 72.00/ min 16.00/min 98400 213 88240 7 70.00 mm[Hg] - Sitting 118.00 mm[Hg] - Sitting 98.00 Tympanic 82.00/ min 18.00/min 46752 213 28867 3 97.90 Tympanic 95771 213 97106 5 73.00 mm[Hg] - Lying Down 127.00 mm[Hg] - Lying Down 78803 213 98255 3 51680 214 25563 1 62.00 mm[Hg] - Sitting 127.00 mm[Hg] - Sitting 97.80 Tympanic 94.00 % 72.00/ min 16.00/min 20257 214 12949 4 59.00 mm[Hg] - Lying Down 113.00 mm[Hg] - Lying Down 31585 215 93095 0 56.00 mm[Hg] - Sitting 101.00 mm[Hg] - Sitting 97.80 Tympanic 95.00 % 71.00/ min 16.00/min 48226 215 28040 8 57.00 mm[Hg] - Lying Down 113.00 mm[Hg] - Lying Down
--- OUTSIDE RECORDS SUMMARY | 2024-04-10 03:21 | External Medical Summary | Continuity Of Care Document ---
Author Name Unknown Address [address] [address] Organization [facility] () Care Team Providers Care R D Engineer Name Role Phone DO Alonso Amy Primary Care Provider [phone] Allergies Allergy Reaction Start Date End Date [...] 3 0.1 mL 01/29 Inactiv e 2023 94946 01820 0 1 time Intrad ermal False Tubersol 5 tub. unit/0.1 mL intradermal injection solution [Tuberculin PPD] 0.1mL Intradermal 1 time For PPD 2nd Step Give 2nd Step PPD Day 1 and Read results Day 3 (schedule 7 days after 1st READ) 0.1mL 02/07 Active 2023 60217 10074 0 1 time Intrad ermal False Oxycodone 5 mg tablet [generic] 5mg By Mouth Every 4 hours as needed for severe pain for pain rate 7-10. For right pubis fracture 5mg 01/27 Inactiv e 2023 08084 99250 1 Every 4 hours as needed By Mouth False OXYCODONE 5 MG TABLET [GENERIC]IM MEDIATE RELEASE 2.5mg By Mouth Every 4 hours as needed tablet po for moderate pain, pain rate 4-6 on pain scale 1-10. For pain 2.5mg 01/27 Inactiv e 2023 Every 4 hours as needed By Mouth False Oxycodone 5 mg tablet [generic] 01/27 Inactiv e 2023 96834 01565 1 Oxycodone 5 mg tablet [generic] 5mg By Mouth Every 4 hours as needed for severe pain for pain rate 7-10. For right pubis fracture 5mg 01/29 Inactiv e 2023 92748 75889 1 Every 4 hours as needed By [...] For Muscle spasms 175mg 2023 Active 2023 90705 08865 1 Every 6 hours as needed By Mouth False Cephalexin 500 mg capsule [generic] 500mg By Mouth Every 8 hours For UTI 500mg 01/30 Inactiv e 2023 75662 33239 1 Every 8 hours By Mouth False Aspirin 81 mg chewable tablet [generic] 81 mg By Mouth Once daily For AAA 81 mg 2023 Active 2023 67690 25242 6 Once daily By Mouth False Colace 100 mg capsule 100mg By Mouth Twice daily For constipation 100mg 2023 Active 2023 89609 07512 1 Twice daily By Mouth False Enoxaparin 300 mg/3 mL subcutaneou s solution [generic] 20mg Subcutaneous Once daily For anticoag. 20mg 2023 Active 2023 30026 49395 1 Once daily Subcut aneous False Losartan 50 mg tablet [generic] 50 By Mouth Once daily For HTN 50 2023 Active 2023 45035 27845 9 Once daily By Mouth False Miralax 17 gram/dose oral powder 17 gram By Mouth Once daily For contispation 17 gram 2023 Active 2023 13994 33204 0 Once daily By Mouth False Senna 8.6 mg tablet 2 tabs By Mouth Once daily For constipation 2 tabs 2023 Active 2023 96450 84612 1 Once daily By Mouth False Simvastatin 20 mg tablet [generic] 20 mg By Mouth Once daily For Hyperlipidemi a 20 mg 2023 Active 2023 99883 99473 0 Once daily By Mouth False Spiriva with HandiHaler 18 mcg and inhalation capsules 1 capsule Inhalation Once daily For COPD 1 capsule 2023 Active 2023 13075 10437 1 Once daily Inhala tion False Ventolin HFA 90 mcg/actuati on aerosol inhaler 2 puff Inhalation Every 4 hours as needed For COPD 2 puff 2023 Active 2023 12897 84871 0 Every 4 hours as needed Inhala tion False ProSource No Carb 15 gram-60 kcal/30 mL oral liquid 30ml By Mouth Twice daily For Protien supplement 30ml 2023 Active 2023 06266 44378 5 Twice daily By Mouth False Albuterol sulfate 2.5 mg/3 mL (0.083 %) solution for nebulizatio n [generic] 3 ml Inhalation Every 6 hours as needed For wheezing 3 ml 2023 Active 2023 45965 62035 3 Every 6 hours as needed Inhala tion False Acetaminoph en 325 mg tablet [generic] 650 mg By Mouth Every 6 hours For Mild Pain 650 mg 01/29 Inactiv e 2023 14276 18260 0 Every 6 hours By Mouth False Tylenol 325 mg tablet 2 tabs By Mouth Every 4 hours as needed For Pain DO NOT EXCEED 3000 MG APAP/24 Hours 2 tabs 2023 Active 2023 73636 70074 0 Every 4 hours as needed By Mouth False Tylenol 325 mg tablet 2 tabs By Mouth Every 4 hours as needed For Fever >100 DO NOT EXCEED 3000 MG APAP/24 Hours 2 tabs 2023 Active 2023 62595 24517 0 Every 4 hours as needed By Mouth False Dulcolax (bisacodyl) 10 mg rectal suppository One Suppository per rectum PRN if Milk of Magnisia ineffective. Give on day 5 of no BM 1 sup 2023 Active 2023 79355 45556 1 Daily as needed Rectal False Fleet Enema 19 gram-7 gram/118 mL Administer per rectum PRN one time if dulcolax suppository not effective. Give on day 6 of no BM 1 2023 Active 2023 57729 23726 6 Daily as needed Rectal False Milk of Magnesia 400 mg/5 mL oral suspension [Magnesium hydroxide] PRN 30ml By Mouth Daily as needed for constipation one time daily if no BM, on day 4 of no BM (PRN refer to instructions) For Constipation 30 mL 2023 Active 2023 85766 80719 6 Daily as needed By Mouth False Oxycodone 5 mg tablet [generic] 01/29 Inactiv e 2023 94249 57626 1 Oxycodone 5 mg tablet [generic] 5mg By Mouth Every 4 hours as needed for severe pain for pain rate 7-10. For right pubis fracture 5mg 2023 Active 2023 56055 83491 1 Every 4 hours as needed By Mouth False Cymbalta 30 mg capsule,del ayed release 30 mg By Mouth Once daily For Depression 30 mg 2023 Active 2023 98394 06595 0 Once daily By Mouth False Acetaminoph en 500 mg tablet [generic] 1000 mg By Mouth Twice daily not to exceed 3gm APAP in 24 hours For Pain 1000 mg 2023 Active 2023 99307 41266 8 Twice daily By Mouth False Problems Code [...] Temperature SpO2 Blood Sugar Pulse Respirations 210 80479 7 78.00 mm[Hg] - Lying Down 186.00 mm[Hg] - Lying Down 109.80 NI 97.90 Forehead Scan 91.00 % 92.00/ min 18.00/min 210 83546 1 74.00 mm[Hg] - Lying Down 147.00 mm[Hg] - Lying Down 85.00/ min 211 49090 2 72.00 mm[Hg] - Sitting 138.00 mm[Hg] - Sitting 98.40 Tympanic 86.00/ min 18.00/min 211 07055 2 59.00 mm[Hg] - Sitting 117.00 mm[Hg] - Sitting 98.20 Tympanic 99.00 % 81.00/ min 18.00/min 29966 211 17827 5 69.00 mm[Hg] - Sitting 145.00 mm[Hg] - Sitting 38949 211 69047 9 69.00 mm[Hg] - Sitting 145.00 mm[Hg] - Sitting 18106 211 51002 5 69.00 mm[Hg] - Sitting 145.00 mm[Hg] - Sitting 64896 211 06515 6 69.00 mm[Hg] - Sitting 27089 212 58265 7 59.00 mm[Hg] - Sitting 117.00 mm[Hg] - Sitting 98.20 Tympanic 81.00/ min 18.00/min 22875 212 06699 9 97.80 Tympanic 78054 212 85557 6 55.00 mm[Hg] - Sitting 109.00 mm[Hg] - Sitting 97.30 Tympanic 94.00 % 75.00/ min 18.00/min 07754 212 66378 5 68.00 mm[Hg] - Sitting 128.00 mm[Hg] - Sitting 97.80 Tympanic 80.00/ min 18.00/min 90015 212 76829 4 97.50 Tympanic 56258 212 16530 9 31535 212 85659 6 71.00 mm[Hg] - Sitting 117.00 mm[Hg] - Sitting 21278 213 93030 7 70.00 mm[Hg] - Sitting 118.00 mm[Hg] - Sitting 98.00 Tympanic 82.00/ min 18.00/min 18918 213 66588 5 73.00 mm[Hg] - Lying Down 127.00 mm[Hg] - Lying Down
--- OUTSIDE RECORDS SUMMARY | 2024-04-10 03:21 | External Medical Summary | Continuity Of Care Document ---
Author Name Unknown Address [address] [address] Organization [facility] () Care Team Providers Care Wire Strander Name Role Phone DO Alonso Amy Primary Care Provider [phone] Allergies Allergy Reaction Start Date End Date [...] 3 0.1 mL 01/29 Inactiv e 2023 42578 20357 0 1 time Intrad ermal False Tubersol 5 tub. unit/0.1 mL intradermal injection solution [Tuberculin PPD] 0.1mL Intradermal 1 time For PPD 2nd Step Give 2nd Step PPD Day 1 and Read results Day 3 (schedule 7 days after 1st READ) 0.1mL 02/07 Active 2023 60954 40184 0 1 time Intrad ermal False Oxycodone 5 mg tablet [generic] 5mg By Mouth Every 4 hours as needed for severe pain for pain rate 7-10. For right pubis fracture 5mg 01/27 Inactiv e 2023 83665 78047 1 Every 4 hours as needed By Mouth False OXYCODONE 5 MG TABLET [GENERIC]IM MEDIATE RELEASE 2.5mg By Mouth Every 4 hours as needed tablet po for moderate pain, pain rate 4-6 on pain scale 1-10. For pain 2.5mg 01/27 Inactiv e 2023 Every 4 hours as needed By Mouth False Oxycodone 5 mg tablet [generic] 01/27 Inactiv e 2023 05323 85880 1 Oxycodone 5 mg tablet [generic] 5mg By Mouth Every 4 hours as needed for severe pain for pain rate 7-10. For right pubis fracture 5mg 01/29 Inactiv e 2023 68239 97539 1 Every 4 hours as needed By [...] For Muscle spasms 175mg 2023 Active 2023 93209 53038 1 Every 6 hours as needed By Mouth False Cephalexin 500 mg capsule [generic] 500mg By Mouth Every 8 hours For UTI 500mg 01/30 Inactiv e 2023 38693 16813 1 Every 8 hours By Mouth False Aspirin 81 mg chewable tablet [generic] 81 mg By Mouth Once daily For AAA 81 mg 2023 Active 2023 81601 77705 6 Once daily By Mouth False Colace 100 mg capsule 100mg By Mouth Twice daily For constipation 100mg 2023 Active 2023 64929 04176 1 Twice daily By Mouth False Enoxaparin 300 mg/3 mL subcutaneou s solution [generic] 20mg Subcutaneous Once daily For anticoag. 20mg 2023 Active 2023 58596 39992 1 Once daily Subcut aneous False Losartan 50 mg tablet [generic] 50 By Mouth Once daily For HTN 50 2023 Active 2023 98486 83503 9 Once daily By Mouth False Miralax 17 gram/dose oral powder 17 gram By Mouth Once daily For contispation 17 gram 2023 Active 2023 96950 80382 0 Once daily By Mouth False Senna 8.6 mg tablet 2 tabs By Mouth Once daily For constipation 2 tabs 2023 Active 2023 56107 17862 1 Once daily By Mouth False Simvastatin 20 mg tablet [generic] 20 mg By Mouth Once daily For Hyperlipidemi a 20 mg 2023 Active 2023 66404 94422 0 Once daily By Mouth False Spiriva with HandiHaler 18 mcg and inhalation capsules 1 capsule Inhalation Once daily For COPD 1 capsule 2023 Active 2023 96971 66190 1 Once daily Inhala tion False Ventolin HFA 90 mcg/actuati on aerosol inhaler 2 puff Inhalation Every 4 hours as needed For COPD 2 puff 2023 Active 2023 23532 45041 0 Every 4 hours as needed Inhala tion False ProSource No Carb 15 gram-60 kcal/30 mL oral liquid 30ml By Mouth Twice daily For Protien supplement 30ml 2023 Active 2023 55579 08160 5 Twice daily By Mouth False Albuterol sulfate 2.5 mg/3 mL (0.083 %) solution for nebulizatio n [generic] 3 ml Inhalation Every 6 hours as needed For wheezing 3 ml 2023 Active 2023 99712 05643 3 Every 6 hours as needed Inhala tion False Acetaminoph en 325 mg tablet [generic] 650 mg By Mouth Every 6 hours For Mild Pain 650 mg 01/29 Inactiv e 2023 75942 32721 0 Every 6 hours By Mouth False Tylenol 325 mg tablet 2 tabs By Mouth Every 4 hours as needed For Pain DO NOT EXCEED 3000 MG APAP/24 Hours 2 tabs 2023 Active 2023 22809 18924 0 Every 4 hours as needed By Mouth False Tylenol 325 mg tablet 2 tabs By Mouth Every 4 hours as needed For Fever >100 DO NOT EXCEED 3000 MG APAP/24 Hours 2 tabs 2023 Active 2023 31757 39780 0 Every 4 hours as needed By Mouth False Dulcolax (bisacodyl) 10 mg rectal suppository One Suppository per rectum PRN if Milk of Magnisia ineffective. Give on day 5 of no BM 1 sup 2023 Active 2023 92554 23829 1 Daily as needed Rectal False Fleet Enema 19 gram-7 gram/118 mL Administer per rectum PRN one time if dulcolax suppository not effective. Give on day 6 of no BM 1 2023 Active 2023 12046 58690 6 Daily as needed Rectal False Milk of Magnesia 400 mg/5 mL oral suspension [Magnesium hydroxide] PRN 30ml By Mouth Daily as needed for constipation one time daily if no BM, on day 4 of no BM (PRN refer to instructions) For Constipation 30 mL 2023 Active 2023 91875 94934 6 Daily as needed By Mouth False Oxycodone 5 mg tablet [generic] 01/29 Inactiv e 2023 77059 35466 1 Oxycodone 5 mg tablet [generic] 5mg By Mouth Every 4 hours as needed for severe pain for pain rate 7-10. For right pubis fracture 5mg 2023 Active 2023 02219 97551 1 Every 4 hours as needed By Mouth False Cymbalta 30 mg capsule,del ayed release 30 mg By Mouth Once daily For Depression 30 mg 2023 Active 2023 10783 65429 0 Once daily By Mouth False Acetaminoph en 500 mg tablet [generic] 1000 mg By Mouth Twice daily not to exceed 3gm APAP in 24 hours For Pain 1000 mg 2023 Active 2023 06399 13036 8 Twice daily By Mouth False Problems [...] Temperature SpO2 Blood Sugar Pulse Respirations 210 09580 7 78.00 mm[Hg] - Lying Down 186.00 mm[Hg] - Lying Down 109.80 NI 97.90 Forehead Scan 91.00 % 92.00/ min 18.00/min 210 01783 1 74.00 mm[Hg] - Lying Down 147.00 mm[Hg] - Lying Down 85.00/ min 211 96852 2 72.00 mm[Hg] - Sitting 138.00 mm[Hg] - Sitting 98.40 Tympanic 86.00/ min 18.00/min 211 53475 2 59.00 mm[Hg] - Sitting 117.00 mm[Hg] - Sitting 98.20 Tympanic 99.00 % 81.00/ min 18.00/min 96027 211 70222 5 69.00 mm[Hg] - Sitting 145.00 mm[Hg] - Sitting 27753 211 22051 9 69.00 mm[Hg] - Sitting 145.00 mm[Hg] - Sitting 90309 211 04356 5 69.00 mm[Hg] - Sitting 145.00 mm[Hg] - Sitting 58669 211 10059 6 69.00 mm[Hg] - Sitting 65374 212 13977 7 59.00 mm[Hg] - Sitting 117.00 mm[Hg] - Sitting 98.20 Tympanic 81.00/ min 18.00/min 82210 212 64207 9 97.80 Tympanic 17382 212 56995 6 55.00 mm[Hg] - Sitting 109.00 mm[Hg] - Sitting 97.30 Tympanic 94.00 % 75.00/ min 18.00/min 25046 212 80904 5 68.00 mm[Hg] - Sitting 128.00 mm[Hg] - Sitting 97.80 Tympanic 80.00/ min 18.00/min 33705 212 08939 4 97.50 Tympanic 50035 212 12993 9 25783 212 79228 6 71.00 mm[Hg] - Sitting 117.00 mm[Hg] - Sitting
--- OUTSIDE RECORDS SUMMARY | 2024-04-10 03:21 | External Medical Summary | Continuity Of Care Document ---
Author Name Unknown Address [address] [address] Organization [facility] () Care Team Providers Care Human Resources Administrator Name Role Phone DO Alonso Amy Primary Care Provider [phone] Allergies Allergy Reaction Start Date End Date [...] 3 0.1 mL 01/29 Inactiv e 2023 52762 98646 0 1 time Intrad ermal False Tubersol 5 tub. unit/0.1 mL intradermal injection solution [Tuberculin PPD] 0.1mL Intradermal 1 time For PPD 2nd Step Give 2nd Step PPD Day 1 and Read results Day 3 (schedule 7 days after 1st READ) 0.1mL 02/07 Active 2023 99514 70315 0 1 time Intrad ermal False Oxycodone 5 mg tablet [generic] 5mg By Mouth Every 4 hours as needed for severe pain for pain rate 7-10. For right pubis fracture 5mg 01/27 Inactiv e 2023 03962 02478 1 Every 4 hours as needed By Mouth False OXYCODONE 5 MG TABLET [GENERIC]IM MEDIATE RELEASE 2.5mg By Mouth Every 4 hours as needed tablet po for moderate pain, pain rate 4-6 on pain scale 1-10. For pain 2.5mg 01/27 Inactiv e 2023 Every 4 hours as needed By Mouth False Oxycodone 5 mg tablet [generic] 01/27 Inactiv e 2023 97931 64737 1 Oxycodone 5 mg tablet [generic] 5mg By Mouth Every 4 hours as needed for severe pain for pain rate 7-10. For right pubis fracture 5mg 01/29 Inactiv e 2023 53577 42144 1 Every 4 hours as needed By [...] For Muscle spasms 175mg 2023 Active 2023 56220 07113 1 Every 6 hours as needed By Mouth False Cephalexin 500 mg capsule [generic] 500mg By Mouth Every 8 hours For UTI 500mg 01/30 Inactiv e 2023 34663 30292 1 Every 8 hours By Mouth False Aspirin 81 mg chewable tablet [generic] 81 mg By Mouth Once daily For AAA 81 mg 2023 Active 2023 54986 77389 6 Once daily By Mouth False Colace 100 mg capsule 100mg By Mouth Twice daily For constipation 100mg 2023 Active 2023 83164 74526 1 Twice daily By Mouth False Enoxaparin 300 mg/3 mL subcutaneou s solution [generic] 20mg Subcutaneous Once daily For anticoag. 20mg 2023 Active 2023 26967 60614 1 Once daily Subcut aneous False Losartan 50 mg tablet [generic] 50 By Mouth Once daily For HTN 50 2023 Active 2023 84973 95560 9 Once daily By Mouth False Miralax 17 gram/dose oral powder 17 gram By Mouth Once daily For contispation 17 gram 2023 Active 2023 93050 38635 0 Once daily By Mouth False Senna 8.6 mg tablet 2 tabs By Mouth Once daily For constipation 2 tabs 2023 Active 2023 13743 08037 1 Once daily By Mouth False Simvastatin 20 mg tablet [generic] 20 mg By Mouth Once daily For Hyperlipidemi a 20 mg 2023 Active 2023 55080 08876 0 Once daily By Mouth False Spiriva with HandiHaler 18 mcg and inhalation capsules 1 capsule Inhalation Once daily For COPD 1 capsule 2023 Active 2023 42454 21735 1 Once daily Inhala tion False Ventolin HFA 90 mcg/actuati on aerosol inhaler 2 puff Inhalation Every 4 hours as needed For COPD 2 puff 2023 Active 2023 31385 36587 0 Every 4 hours as needed Inhala tion False ProSource No Carb 15 gram-60 kcal/30 mL oral liquid 30ml By Mouth Twice daily For Protien supplement 30ml 01/30 Inactiv e 2023 96140 37127 5 Twice daily By Mouth False Albuterol sulfate 2.5 mg/3 mL (0.083 %) solution for nebulizatio n [generic] 3 ml Inhalation Every 6 hours as needed For wheezing 3 ml 2023 Active 2023 59672 54999 3 Every 6 hours as needed Inhala tion False Acetaminoph en 325 mg tablet [generic] 650 mg By Mouth Every 6 hours For Mild Pain 650 mg 01/29 Inactiv e 2023 36278 41490 0 Every 6 hours By Mouth False Tylenol 325 mg tablet 2 tabs By Mouth Every 4 hours as needed For Pain DO NOT EXCEED 3000 MG APAP/24 Hours 2 tabs 2023 Active 2023 99738 57286 0 Every 4 hours as needed By Mouth False Tylenol 325 mg tablet 2 tabs By Mouth Every 4 hours as needed For Fever >100 DO NOT EXCEED 3000 MG APAP/24 Hours 2 tabs 2023 Active 2023 38058 96129 0 Every 4 hours as needed By Mouth False Dulcolax (bisacodyl) 10 mg rectal suppository One Suppository per rectum PRN if Milk of Magnisia ineffective. Give on day 5 of no BM 1 sup 2023 Active 2023 68924 38770 1 Daily as needed Rectal False Fleet Enema 19 gram-7 gram/118 mL Administer per rectum PRN one time if dulcolax suppository not effective. Give on day 6 of no BM 1 2023 Active 2023 38499 12660 6 Daily as needed Rectal False Milk of Magnesia 400 mg/5 mL oral suspension [Magnesium hydroxide] PRN 30ml By Mouth Daily as needed for constipation one time daily if no BM, on day 4 of no BM (PRN refer to instructions) For Constipation 30 mL 2023 Active 2023 36867 44709 6 Daily as needed By Mouth False Oxycodone 5 mg tablet [generic] 01/29 Inactiv e 2023 28755 66348 1 Oxycodone 5 mg tablet [generic] 5mg By Mouth Every 4 hours as needed for severe pain for pain rate 7-10. For right pubis fracture 5mg 2023 Active 2023 81177 04403 1 Every 4 hours as needed By Mouth False Cymbalta 30 mg capsule,del ayed release 30 mg By Mouth Once daily For Depression 30 mg 2023 Active 2023 85519 08064 0 Once daily By Mouth False Acetaminoph en 500 mg tablet [generic] 1000 mg By Mouth Twice daily not to exceed 3gm APAP in 24 hours For Pain 1000 mg 2023 Active 2023 83458 39660 8 Twice daily By Mouth False Healthshake [...] Temperature SpO2 Blood Sugar Pulse Respirations 210 88969 7 78.00 mm[Hg] - Lying Down 186.00 mm[Hg] - Lying Down 109.80 NI 97.90 Forehead Scan 91.00 % 92.00/ min 18.00/min 210 26010 1 74.00 mm[Hg] - Lying Down 147.00 mm[Hg] - Lying Down 85.00/ min 211 11466 2 72.00 mm[Hg] - Sitting 138.00 mm[Hg] - Sitting 98.40 Tympanic 86.00/ min 18.00/min 81089 211 10471 2 59.00 mm[Hg] - Sitting 117.00 mm[Hg] - Sitting 98.20 Tympanic 99.00 % 81.00/ min 18.00/min 95433 211 95126 5 69.00 mm[Hg] - Sitting 145.00 mm[Hg] - Sitting 94403 211 59766 9 69.00 mm[Hg] - Sitting 145.00 mm[Hg] - Sitting 56636 211 41431 5 69.00 mm[Hg] - Sitting 145.00 mm[Hg] - Sitting 46700 211 06014 6 69.00 mm[Hg] - Sitting 35645 212 23444 7 59.00 mm[Hg] - Sitting 117.00 mm[Hg] - Sitting 98.20 Tympanic 81.00/ min 18.00/min 56586 212 85872 9 97.80 Tympanic 89662 212 42479 6 55.00 mm[Hg] - Sitting 109.00 mm[Hg] - Sitting 97.30 Tympanic 94.00 % 75.00/ min 18.00/min 37087 212 37955 5 68.00 mm[Hg] - Sitting 128.00 mm[Hg] - Sitting 97.80 Tympanic 80.00/ min 18.00/min 66048 212 11172 4 97.50 Tympanic 59746 212 54579 9 26180 212 12992 6 71.00 mm[Hg] - Sitting 117.00 mm[Hg] - Sitting 93871 213 43713 0 60.00 mm[Hg] - Sitting 116.00 mm[Hg] - Sitting 98.40 Forehead Scan 94.00 % 72.00/ min 16.00/min 63137 213 17472 7 70.00 mm[Hg] - Sitting 118.00 mm[Hg] - Sitting 98.00 Tympanic 82.00/ min 18.00/min 65907 213 47484 5 73.00 mm[Hg] - Lying Down 127.00 mm[Hg] - Lying Down 43333 213 48766 3
--- OUTSIDE RECORDS SUMMARY | 2024-04-10 03:21 | External Medical Summary | Continuity Of Care Document ---
Author Name Unknown Address [address] [address] Organization [facility] () Care Team Providers Care Sludge Control Attendant Name Role Phone DO Alonso Amy Primary Care Provider [phone] Allergies Allergy Reaction Start Date End Date [...] 3 0.1 mL 01/29 Inactiv e 2023 13467 74165 0 1 time Intrad ermal False Tubersol 5 tub. unit/0.1 mL intradermal injection solution [Tuberculin PPD] 0.1mL Intradermal 1 time For PPD 2nd Step Give 2nd Step PPD Day 1 and Read results Day 3 (schedule 7 days after 1st READ) 0.1mL 02/07 Active 2023 47126 41897 0 1 time Intrad ermal False Oxycodone 5 mg tablet [generic] 5mg By Mouth Every 4 hours as needed for severe pain for pain rate 7-10. For right pubis fracture 5mg 01/27 Inactiv e 2023 55166 47196 1 Every 4 hours as needed By Mouth False OXYCODONE 5 MG TABLET [GENERIC]IM MEDIATE RELEASE 2.5mg By Mouth Every 4 hours as needed tablet po for moderate pain, pain rate 4-6 on pain scale 1-10. For pain 2.5mg 01/27 Inactiv e 2023 Every 4 hours as needed By Mouth False Oxycodone 5 mg tablet [generic] 01/27 Inactiv e 2023 05658 66343 1 Oxycodone 5 mg tablet [generic] 5mg By Mouth Every 4 hours as needed for severe pain for pain rate 7-10. For right pubis fracture 5mg 01/29 Inactiv e 2023 39786 67771 1 Every 4 hours as needed By [...] For Muscle spasms 175mg 2023 Active 2023 17447 69362 1 Every 6 hours as needed By Mouth False Cephalexin 500 mg capsule [generic] 500mg By Mouth Every 8 hours For UTI 500mg 01/30 Inactiv e 2023 80626 41433 1 Every 8 hours By Mouth False Aspirin 81 mg chewable tablet [generic] 81 mg By Mouth Once daily For AAA 81 mg 2023 Active 2023 47660 29502 6 Once daily By Mouth False Colace 100 mg capsule 100mg By Mouth Twice daily For constipation 100mg 2023 Active 2023 51039 82600 1 Twice daily By Mouth False Enoxaparin 300 mg/3 mL subcutaneou s solution [generic] 20mg Subcutaneous Once daily For anticoag. 20mg 2023 Active 2023 58769 36265 1 Once daily Subcut aneous False Losartan 50 mg tablet [generic] 50 By Mouth Once daily For HTN 50 2023 Active 2023 12221 24086 9 Once daily By Mouth False Miralax 17 gram/dose oral powder 17 gram By Mouth Once daily For contispation 17 gram 2023 Active 2023 33124 06078 0 Once daily By Mouth False Senna 8.6 mg tablet 2 tabs By Mouth Once daily For constipation 2 tabs 2023 Active 2023 26766 23285 1 Once daily By Mouth False Simvastatin 20 mg tablet [generic] 20 mg By Mouth Once daily For Hyperlipidemi a 20 mg 2023 Active 2023 61847 04653 0 Once daily By Mouth False Spiriva with HandiHaler 18 mcg and inhalation capsules 1 capsule Inhalation Once daily For COPD 1 capsule 2023 Active 2023 52898 46129 1 Once daily Inhala tion False Ventolin HFA 90 mcg/actuati on aerosol inhaler 2 puff Inhalation Every 4 hours as needed For COPD 2 puff 2023 Active 2023 92413 45550 0 Every 4 hours as needed Inhala tion False ProSource No Carb 15 gram-60 kcal/30 mL oral liquid 30ml By Mouth Twice daily For Protien supplement 30ml 01/30 Inactiv e 2023 28092 55124 5 Twice daily By Mouth False Albuterol sulfate 2.5 mg/3 mL (0.083 %) solution for nebulizatio n [generic] 3 ml Inhalation Every 6 hours as needed For wheezing 3 ml 2023 Active 2023 84461 65966 3 Every 6 hours as needed Inhala tion False Acetaminoph en 325 mg tablet [generic] 650 mg By Mouth Every 6 hours For Mild Pain 650 mg 01/29 Inactiv e 2023 46521 36653 0 Every 6 hours By Mouth False Tylenol 325 mg tablet 2 tabs By Mouth Every 4 hours as needed For Pain DO NOT EXCEED 3000 MG APAP/24 Hours 2 tabs 2023 Active 2023 02042 79569 0 Every 4 hours as needed By Mouth False Tylenol 325 mg tablet 2 tabs By Mouth Every 4 hours as needed For Fever >100 DO NOT EXCEED 3000 MG APAP/24 Hours 2 tabs 2023 Active 2023 17484 98786 0 Every 4 hours as needed By Mouth False Dulcolax (bisacodyl) 10 mg rectal suppository One Suppository per rectum PRN if Milk of Magnisia ineffective. Give on day 5 of no BM 1 sup 2023 Active 2023 68805 72015 1 Daily as needed Rectal False Fleet Enema 19 gram-7 gram/118 mL Administer per rectum PRN one time if dulcolax suppository not effective. Give on day 6 of no BM 1 2023 Active 2023 46185 96774 6 Daily as needed Rectal False Milk of Magnesia 400 mg/5 mL oral suspension [Magnesium hydroxide] PRN 30ml By Mouth Daily as needed for constipation one time daily if no BM, on day 4 of no BM (PRN refer to instructions) For Constipation 30 mL 2023 Active 2023 75343 30363 6 Daily as needed By Mouth False Oxycodone 5 mg tablet [generic] 01/29 Inactiv e 2023 77183 76815 1 Oxycodone 5 mg tablet [generic] 5mg By Mouth Every 4 hours as needed for severe pain for pain rate 7-10. For right pubis fracture 5mg 2023 Active 2023 19668 95531 1 Every 4 hours as needed By Mouth False Cymbalta 30 mg capsule,del ayed release 30 mg By Mouth Once daily For Depression 30 mg 2023 Active 2023 56321 59734 0 Once daily By Mouth False Acetaminoph en 500 mg tablet [generic] 1000 mg By Mouth Twice daily not to exceed 3gm APAP in 24 hours For Pain 1000 mg 2023 Active 2023 38748 98759 8 Twice daily By Mouth False Healthshake [...] Temperature SpO2 Blood Sugar Pulse Respirations 210 57846 7 78.00 mm[Hg] - Lying Down 186.00 mm[Hg] - Lying Down 109.80 NI 97.90 Forehead Scan 91.00 % 92.00/ min 18.00/min 210 48085 1 74.00 mm[Hg] - Lying Down 147.00 mm[Hg] - Lying Down 85.00/ min 211 46658 2 72.00 mm[Hg] - Sitting 138.00 mm[Hg] - Sitting 98.40 Tympanic 86.00/ min 18.00/min 21181 211 85912 2 59.00 mm[Hg] - Sitting 117.00 mm[Hg] - Sitting 98.20 Tympanic 99.00 % 81.00/ min 18.00/min 32063 211 64479 5 69.00 mm[Hg] - Sitting 145.00 mm[Hg] - Sitting 48335 211 84671 9 69.00 mm[Hg] - Sitting 145.00 mm[Hg] - Sitting 51131 211 20079 5 69.00 mm[Hg] - Sitting 145.00 mm[Hg] - Sitting 66131 211 35233 6 69.00 mm[Hg] - Sitting 69458 212 17395 7 59.00 mm[Hg] - Sitting 117.00 mm[Hg] - Sitting 98.20 Tympanic 81.00/ min 18.00/min 08230 212 82994 9 97.80 Tympanic 01013 212 31945 6 55.00 mm[Hg] - Sitting 109.00 mm[Hg] - Sitting 97.30 Tympanic 94.00 % 75.00/ min 18.00/min 66361 212 89564 5 68.00 mm[Hg] - Sitting 128.00 mm[Hg] - Sitting 97.80 Tympanic 80.00/ min 18.00/min 79005 212 08301 4 97.50 Tympanic 54897 212 74367 9 65347 212 89383 6 71.00 mm[Hg] - Sitting 117.00 mm[Hg] - Sitting 75953 213 34374 0 60.00 mm[Hg] - Sitting 116.00 mm[Hg] - Sitting 98.40 Forehead Scan 94.00 % 72.00/ min 16.00/min 67695 213 17853 7 70.00 mm[Hg] - Sitting 118.00 mm[Hg] - Sitting 98.00 Tympanic 82.00/ min 18.00/min 70985 213 07852 3 97.90 Tympanic 51609 213 84531 5 73.00 mm[Hg] - Lying Down 127.00 mm[Hg] - Lying Down 91608 213 13009 3
--- OUTSIDE RECORDS SUMMARY | 2024-04-10 03:21 | External Medical Summary | Continuity Of Care Document ---
Author Name Unknown Address [address] [address] Organization [facility] () Care Team Providers Care Solar Sales Advisor Name Role Phone DO Alonso Amy Primary Care Provider [phone] Allergies Allergy Reaction Start Date End Date [...] 3 0.1 mL 01/29 Inactiv e 2023 39699 21968 0 1 time Intrad ermal False Tubersol 5 tub. unit/0.1 mL intradermal injection solution [Tuberculin PPD] 0.1mL Intradermal 1 time For PPD 2nd Step Give 2nd Step PPD Day 1 and Read results Day 3 (schedule 7 days after 1st READ) 0.1mL 02/07 Active 2023 25247 63862 0 1 time Intrad ermal False Oxycodone 5 mg tablet [generic] 5mg By Mouth Every 4 hours as needed for severe pain for pain rate 7-10. For right pubis fracture 5mg 01/27 Inactiv e 2023 66841 83499 1 Every 4 hours as needed By Mouth False OXYCODONE 5 MG TABLET [GENERIC]IM MEDIATE RELEASE 2.5mg By Mouth Every 4 hours as needed tablet po for moderate pain, pain rate 4-6 on pain scale 1-10. For pain 2.5mg 01/27 Inactiv e 2023 Every 4 hours as needed By Mouth False Oxycodone 5 mg tablet [generic] 01/27 Inactiv e 2023 73358 88434 1 Oxycodone 5 mg tablet [generic] 5mg By Mouth Every 4 hours as needed for severe pain for pain rate 7-10. For right pubis fracture 5mg 01/29 Inactiv e 2023 49168 45131 1 Every 4 hours as needed By [...] For Muscle spasms 175mg 2023 Active 2023 15569 84435 1 Every 6 hours as needed By Mouth False Cephalexin 500 mg capsule [generic] 500mg By Mouth Every 8 hours For UTI 500mg 01/30 Inactiv e 2023 35665 65708 1 Every 8 hours By Mouth False Aspirin 81 mg chewable tablet [generic] 81 mg By Mouth Once daily For AAA 81 mg 2023 Active 2023 59500 44251 6 Once daily By Mouth False Colace 100 mg capsule 100mg By Mouth Twice daily For constipation 100mg 2023 Active 2023 22134 87824 1 Twice daily By Mouth False Enoxaparin 300 mg/3 mL subcutaneou s solution [generic] 20mg Subcutaneous Once daily For anticoag. 20mg 2023 Active 2023 88683 58412 1 Once daily Subcut aneous False Losartan 50 mg tablet [generic] 50 By Mouth Once daily For HTN 50 2023 Active 2023 18773 57870 9 Once daily By Mouth False Miralax 17 gram/dose oral powder 17 gram By Mouth Once daily For contispation 17 gram 2023 Active 2023 97971 32595 0 Once daily By Mouth False Senna 8.6 mg tablet 2 tabs By Mouth Once daily For constipation 2 tabs 2023 Active 2023 14699 55956 1 Once daily By Mouth False Simvastatin 20 mg tablet [generic] 20 mg By Mouth Once daily For Hyperlipidemi a 20 mg 2023 Active 2023 81917 17199 0 Once daily By Mouth False Spiriva with HandiHaler 18 mcg and inhalation capsules 1 capsule Inhalation Once daily For COPD 1 capsule 2023 Active 2023 83233 76190 1 Once daily Inhala tion False Ventolin HFA 90 mcg/actuati on aerosol inhaler 2 puff Inhalation Every 4 hours as needed For COPD 2 puff 2023 Active 2023 89502 77906 0 Every 4 hours as needed Inhala tion False ProSource No Carb 15 gram-60 kcal/30 mL oral liquid 30ml By Mouth Twice daily For Protien supplement 30ml 01/30 Inactiv e 2023 15803 95970 5 Twice daily By Mouth False Albuterol sulfate 2.5 mg/3 mL (0.083 %) solution for nebulizatio n [generic] 3 ml Inhalation Every 6 hours as needed For wheezing 3 ml 2023 Active 2023 53209 92947 3 Every 6 hours as needed Inhala tion False Acetaminoph en 325 mg tablet [generic] 650 mg By Mouth Every 6 hours For Mild Pain 650 mg 01/29 Inactiv e 2023 78000 54214 0 Every 6 hours By Mouth False Tylenol 325 mg tablet 2 tabs By Mouth Every 4 hours as needed For Pain DO NOT EXCEED 3000 MG APAP/24 Hours 2 tabs 2023 Active 2023 01051 86071 0 Every 4 hours as needed By Mouth False Tylenol 325 mg tablet 2 tabs By Mouth Every 4 hours as needed For Fever >100 DO NOT EXCEED 3000 MG APAP/24 Hours 2 tabs 2023 Active 2023 33148 60133 0 Every 4 hours as needed By Mouth False Dulcolax (bisacodyl) 10 mg rectal suppository One Suppository per rectum PRN if Milk of Magnisia ineffective. Give on day 5 of no BM 1 sup 2023 Active 2023 79121 46939 1 Daily as needed Rectal False Fleet Enema 19 gram-7 gram/118 mL Administer per rectum PRN one time if dulcolax suppository not effective. Give on day 6 of no BM 1 2023 Active 2023 70299 08979 6 Daily as needed Rectal False Milk of Magnesia 400 mg/5 mL oral suspension [Magnesium hydroxide] PRN 30ml By Mouth Daily as needed for constipation one time daily if no BM, on day 4 of no BM (PRN refer to instructions) For Constipation 30 mL 2023 Active 2023 29641 06371 6 Daily as needed By Mouth False Oxycodone 5 mg tablet [generic] 01/29 Inactiv e 2023 96077 48893 1 Oxycodone 5 mg tablet [generic] 5mg By Mouth Every 4 hours as needed for severe pain for pain rate 7-10. For right pubis fracture 5mg 2023 Active 2023 69065 10983 1 Every 4 hours as needed By Mouth False Cymbalta 30 mg capsule,del ayed release 30 mg By Mouth Once daily For Depression 30 mg 2023 Active 2023 30924 73404 0 Once daily By Mouth False Acetaminoph en 500 mg tablet [generic] 1000 mg By Mouth Twice daily not to exceed 3gm APAP in 24 hours For Pain 1000 mg 2023 Active 2023 64334 20135 8 Twice daily By Mouth False Healthshake [...] Temperature SpO2 Blood Sugar Pulse Respirations 210 63342 7 78.00 mm[Hg] - Lying Down 186.00 mm[Hg] - Lying Down 109.80 NI 97.90 Forehead Scan 91.00 % 92.00/ min 18.00/min 210 44637 1 74.00 mm[Hg] - Lying Down 147.00 mm[Hg] - Lying Down 85.00/ min 211 95402 2 72.00 mm[Hg] - Sitting 138.00 mm[Hg] - Sitting 98.40 Tympanic 86.00/ min 18.00/min 38729 211 74544 2 59.00 mm[Hg] - Sitting 117.00 mm[Hg] - Sitting 98.20 Tympanic 99.00 % 81.00/ min 18.00/min 96211 211 14359 5 69.00 mm[Hg] - Sitting 145.00 mm[Hg] - Sitting 57482 211 67163 9 69.00 mm[Hg] - Sitting 145.00 mm[Hg] - Sitting 00710 211 28648 5 69.00 mm[Hg] - Sitting 145.00 mm[Hg] - Sitting 18664 211 90191 6 69.00 mm[Hg] - Sitting 61058 212 61077 7 59.00 mm[Hg] - Sitting 117.00 mm[Hg] - Sitting 98.20 Tympanic 81.00/ min 18.00/min 40886 212 20313 9 97.80 Tympanic 25834 212 45101 6 55.00 mm[Hg] - Sitting 109.00 mm[Hg] - Sitting 97.30 Tympanic 94.00 % 75.00/ min 18.00/min 30376 212 74968 5 68.00 mm[Hg] - Sitting 128.00 mm[Hg] - Sitting 97.80 Tympanic 80.00/ min 18.00/min 76922 212 30196 4 97.50 Tympanic 84820 212 59007 9 73841 212 40723 6 71.00 mm[Hg] - Sitting 117.00 mm[Hg] - Sitting 89790 213 69797 0 60.00 mm[Hg] - Sitting 116.00 mm[Hg] - Sitting 98.40 Forehead Scan 94.00 % 72.00/ min 16.00/min 20586 213 92501 7 70.00 mm[Hg] - Sitting 118.00 mm[Hg] - Sitting 98.00 Tympanic 82.00/ min 18.00/min 36492 213 39814 3 97.90 Tympanic 83764 213 66109 5 73.00 mm[Hg] - Lying Down 127.00 mm[Hg] - Lying Down 80284 213 87750 3
--- OUTSIDE RECORDS SUMMARY | 2024-04-10 03:21 | External Medical Summary | Continuity Of Care Document ---
Author Name Unknown Address [address] [address] Organization [facility] () Care Team Providers Care Angle Bender Name Role Phone DO Alonso Amy Primary Care Provider [phone] Allergies Allergy Reaction Start Date End Date [...] 3 0.1 mL 01/29 Inactiv e 2023 66199 35659 0 1 time Intrad ermal False Tubersol 5 tub. unit/0.1 mL intradermal injection solution [Tuberculin PPD] 0.1mL Intradermal 1 time For PPD 2nd Step Give 2nd Step PPD Day 1 and Read results Day 3 (schedule 7 days after 1st READ) 0.1mL 02/07 Active 2023 16663 66597 0 1 time Intrad ermal False Oxycodone 5 mg tablet [generic] 5mg By Mouth Every 4 hours as needed for severe pain for pain rate 7-10. For right pubis fracture 5mg 01/27 Inactiv e 2023 84917 19097 1 Every 4 hours as needed By Mouth False OXYCODONE 5 MG TABLET [GENERIC]IM MEDIATE RELEASE 2.5mg By Mouth Every 4 hours as needed tablet po for moderate pain, pain rate 4-6 on pain scale 1-10. For pain 2.5mg 01/27 Inactiv e 2023 Every 4 hours as needed By Mouth False Oxycodone 5 mg tablet [generic] 01/27 Inactiv e 2023 95977 92723 1 Oxycodone 5 mg tablet [generic] 5mg By Mouth Every 4 hours as needed for severe pain for pain rate 7-10. For right pubis fracture 5mg 01/29 Inactiv e 2023 21460 04154 1 Every 4 hours as needed By [...] For Muscle spasms 175mg 2023 Active 2023 90204 33993 1 Every 6 hours as needed By Mouth False Cephalexin 500 mg capsule [generic] 500mg By Mouth Every 8 hours For UTI 500mg 01/30 Active 2023 37999 10269 1 Every 8 hours By Mouth False Aspirin 81 mg chewable tablet [generic] 81 mg By Mouth Once daily For AAA 81 mg 2023 Active 2023 90468 66949 6 Once daily By Mouth False Colace 100 mg capsule 100mg By Mouth Twice daily For constipation 100mg 2023 Active 2023 75836 15501 1 Twice daily By Mouth False Enoxaparin 300 mg/3 mL subcutaneou s solution [generic] 20mg Subcutaneous Once daily For anticoag. 20mg 2023 Active 2023 03058 46744 1 Once daily Subcut aneous False Losartan 50 mg tablet [generic] 50 By Mouth Once daily For HTN 50 2023 Active 2023 53754 34979 9 Once daily By Mouth False Miralax 17 gram/dose oral powder 17 gram By Mouth Once daily For contispation 17 gram 2023 Active 2023 40585 39481 0 Once daily By Mouth False Senna 8.6 mg tablet 2 tabs By Mouth Once daily For constipation 2 tabs 2023 Active 2023 85118 01366 1 Once daily By Mouth False Simvastatin 20 mg tablet [generic] 20 mg By Mouth Once daily For Hyperlipidemi a 20 mg 2023 Active 2023 30712 56142 0 Once daily By Mouth False Spiriva with HandiHaler 18 mcg and inhalation capsules 1 capsule Inhalation Once daily For COPD 1 capsule 2023 Active 2023 28400 49454 1 Once daily Inhala tion False Ventolin HFA 90 mcg/actuati on aerosol inhaler 2 puff Inhalation Every 4 hours as needed For COPD 2 puff 2023 Active 2023 45881 19035 0 Every 4 hours as needed Inhala tion False ProSource No Carb 15 gram-60 kcal/30 mL oral liquid 30ml By Mouth Twice daily For Protien supplement 30ml 2023 Active 2023 11940 53661 5 Twice daily By Mouth False Albuterol sulfate 2.5 mg/3 mL (0.083 %) solution for nebulizatio n [generic] 3 ml Inhalation Every 6 hours as needed For wheezing 3 ml 2023 Active 2023 58512 33614 3 Every 6 hours as needed Inhala tion False Acetaminoph en 325 mg tablet [generic] 650 mg By Mouth Every 6 hours For Mild Pain 650 mg 2023 Active 2023 41547 22498 0 Every 6 hours By Mouth False Tylenol 325 mg tablet 2 tabs By Mouth Every 4 hours as needed For Pain DO NOT EXCEED 3000 MG APAP/24 Hours 2 tabs 2023 Active 2023 45978 34088 0 Every 4 hours as needed By Mouth False Tylenol 325 mg tablet 2 tabs By Mouth Every 4 hours as needed For Fever >100 DO NOT EXCEED 3000 MG APAP/24 Hours 2 tabs 2023 Active 2023 66787 91305 0 Every 4 hours as needed By Mouth False Dulcolax (bisacodyl) 10 mg rectal suppository One Suppository per rectum PRN if Milk of Magnisia ineffective. Give on day 5 of no BM 1 sup 2023 Active 2023 19443 32789 1 Daily as needed Rectal False Fleet Enema 19 gram-7 gram/118 mL Administer per rectum PRN one time if dulcolax suppository not effective. Give on day 6 of no BM 1 2023 Active 2023 83468 93278 6 Daily as needed Rectal False Milk of Magnesia 400 mg/5 mL oral suspension [Magnesium hydroxide] PRN 30ml By Mouth Daily as needed for constipation one time daily if no BM, on day 4 of no BM (PRN refer to instructions) For Constipation 30 mL 2023 Active 2023 56805 49181 6 Daily as needed By Mouth False Oxycodone 5 mg tablet [generic] 01/29 Inactiv e 2023 81209 40767 1 Oxycodone 5 mg tablet [generic] 5mg By Mouth Every 4 hours as needed for severe pain for pain rate 7-10. For right pubis fracture 5mg 2023 Active 2023 48055 89504 1 Every 4 hours as needed By Mouth False Cymbalta 30 mg capsule,del ayed release 30 mg By Mouth Once daily For Depression 30 mg 2023 Active 2023 40644 85926 0 Once daily By Mouth False Acetaminoph en 500 mg tablet [generic] 1000 mg By Mouth Twice daily not to exceed 3gm APAP in 24 hours For Pain 1000 mg 2023 Active 2023 97271 72912 8 Twice daily By Mouth False Problems [...] Temperature SpO2 Blood Sugar Pulse Respirations 210 74804 7 78.00 mm[Hg] - Lying Down 186.00 mm[Hg] - Lying Down 109.80 NI 97.90 Forehead Scan 91.00 % 92.00/ min 18.00/min 210 14362 1 74.00 mm[Hg] - Lying Down 147.00 mm[Hg] - Lying Down 85.00/ min 211 27926 2 72.00 mm[Hg] - Sitting 138.00 mm[Hg] - Sitting 98.40 Tympanic 86.00/ min 18.00/min 211 51880 2 59.00 mm[Hg] - Sitting 117.00 mm[Hg] - Sitting 98.20 Tympanic 99.00 % 81.00/ min 18.00/min 30182 211 14036 5 69.00 mm[Hg] - Sitting 145.00 mm[Hg] - Sitting 08743 211 08042 9 69.00 mm[Hg] - Sitting 145.00 mm[Hg] - Sitting 36675 211 46088 5 69.00 mm[Hg] - Sitting 145.00 mm[Hg] - Sitting 78872 211 55839 6 69.00 mm[Hg] - Sitting 81469 212 13125 7 59.00 mm[Hg] - Sitting 117.00 mm[Hg] - Sitting 98.20 Tympanic 81.00/ min 18.00/min 57474 212 94702 9 97.80 Tympanic 34498 212 75646 6 55.00 mm[Hg] - Sitting 109.00 mm[Hg] - Sitting 97.30 Tympanic 94.00 % 75.00/ min 18.00/min 45806 212 81916 5 68.00 mm[Hg] - Sitting 128.00 mm[Hg] - Sitting 97.80 Tympanic 80.00/ min 18.00/min 56562 212 19504 4 97.50 Tympanic 93821 212 86096 9 20424 212 12709 6 71.00 mm[Hg] - Sitting 117.00 mm[Hg] - Sitting
--- OUTSIDE RECORDS SUMMARY | 2024-04-10 03:21 | External Medical Summary | Continuity Of Care Document ---
Author Name Unknown Address [address] [address] Organization [facility] () Care Team Providers Care [employer] Material Inspector Name Role Phone DO Alonso Amy Primary Care Provider [phone] Allergies Allergy Reaction Start Date End Date [...] 3 0.1 mL 01/29 Inactiv e 2023 01204 71141 0 1 time Intrad ermal False Tubersol 5 tub. unit/0.1 mL intradermal injection solution [Tuberculin PPD] 0.1mL Intradermal 1 time For PPD 2nd Step Give 2nd Step PPD Day 1 and Read results Day 3 (schedule 7 days after 1st READ) 0.1mL 02/07 Active 2023 21307 58481 0 1 time Intrad ermal False Oxycodone 5 mg tablet [generic] 5mg By Mouth Every 4 hours as needed for severe pain for pain rate 7-10. For right pubis fracture 5mg 01/27 Inactiv e 2023 66625 38619 1 Every 4 hours as needed By Mouth False OXYCODONE 5 MG TABLET [GENERIC]IM MEDIATE RELEASE 2.5mg By Mouth Every 4 hours as needed tablet po for moderate pain, pain rate 4-6 on pain scale 1-10. For pain 2.5mg 01/27 Inactiv e 2023 Every 4 hours as needed By Mouth False Oxycodone 5 mg tablet [generic] 01/27 Inactiv e 2023 63024 96044 1 Oxycodone 5 mg tablet [generic] 5mg By Mouth Every 4 hours as needed for severe pain for pain rate 7-10. For right pubis fracture 5mg 01/29 Inactiv e 2023 36765 13672 1 Every 4 hours as needed By [...] For Muscle spasms 175mg 2023 Active 2023 15697 56418 1 Every 6 hours as needed By Mouth False Cephalexin 500 mg capsule [generic] 500mg By Mouth Every 8 hours For UTI 500mg 01/30 Inactiv e 2023 91175 98567 1 Every 8 hours By Mouth False Aspirin 81 mg chewable tablet [generic] 81 mg By Mouth Once daily For AAA 81 mg 2023 Active 2023 12271 18465 6 Once daily By Mouth False Colace 100 mg capsule 100mg By Mouth Twice daily For constipation 100mg 2023 Active 2023 28208 86032 1 Twice daily By Mouth False Enoxaparin 300 mg/3 mL subcutaneou s solution [generic] 20mg Subcutaneous Once daily For anticoag. 20mg 2023 Active 2023 79894 73869 1 Once daily Subcut aneous False Losartan 50 mg tablet [generic] 50 By Mouth Once daily For HTN 50 2023 Active 2023 00495 18064 9 Once daily By Mouth False Miralax 17 gram/dose oral powder 17 gram By Mouth Once daily For contispation 17 gram 2023 Active 2023 85364 81673 0 Once daily By Mouth False Senna 8.6 mg tablet 2 tabs By Mouth Once daily For constipation 2 tabs 2023 Active 2023 21290 40263 1 Once daily By Mouth False Simvastatin 20 mg tablet [generic] 20 mg By Mouth Once daily For Hyperlipidemi a 20 mg 2023 Active 2023 11755 54128 0 Once daily By Mouth False Spiriva with HandiHaler 18 mcg and inhalation capsules 1 capsule Inhalation Once daily For COPD 1 capsule 2023 Active 2023 34243 07738 1 Once daily Inhala tion False Ventolin HFA 90 mcg/actuati on aerosol inhaler 2 puff Inhalation Every 4 hours as needed For COPD 2 puff 2023 Active 2023 23814 48313 0 Every 4 hours as needed Inhala tion False ProSource No Carb 15 gram-60 kcal/30 mL oral liquid 30ml By Mouth Twice daily For Protien supplement 30ml 01/30 Inactiv e 2023 29213 65222 5 Twice daily By Mouth False Albuterol sulfate 2.5 mg/3 mL (0.083 %) solution for nebulizatio n [generic] 3 ml Inhalation Every 6 hours as needed For wheezing 3 ml 2023 Active 2023 22140 01374 3 Every 6 hours as needed Inhala tion False Acetaminoph en 325 mg tablet [generic] 650 mg By Mouth Every 6 hours For Mild Pain 650 mg 01/29 Inactiv e 2023 02405 65286 0 Every 6 hours By Mouth False Tylenol 325 mg tablet 2 tabs By Mouth Every 4 hours as needed For Pain DO NOT EXCEED 3000 MG APAP/24 Hours 2 tabs 2023 Active 2023 72149 81267 0 Every 4 hours as needed By Mouth False Tylenol 325 mg tablet 2 tabs By Mouth Every 4 hours as needed For Fever >100 DO NOT EXCEED 3000 MG APAP/24 Hours 2 tabs 2023 Active 2023 08213 64896 0 Every 4 hours as needed By Mouth False Dulcolax (bisacodyl) 10 mg rectal suppository One Suppository per rectum PRN if Milk of Magnisia ineffective. Give on day 5 of no BM 1 sup 2023 Active 2023 98165 54527 1 Daily as needed Rectal False Fleet Enema 19 gram-7 gram/118 mL Administer per rectum PRN one time if dulcolax suppository not effective. Give on day 6 of no BM 1 2023 Active 2023 01922 28380 6 Daily as needed Rectal False Milk of Magnesia 400 mg/5 mL oral suspension [Magnesium hydroxide] PRN 30ml By Mouth Daily as needed for constipation one time daily if no BM, on day 4 of no BM (PRN refer to instructions) For Constipation 30 mL 2023 Active 2023 81388 82000 6 Daily as needed By Mouth False Oxycodone 5 mg tablet [generic] 01/29 Inactiv e 2023 20808 45981 1 Oxycodone 5 mg tablet [generic] 5mg By Mouth Every 4 hours as needed for severe pain for pain rate 7-10. For right pubis fracture 5mg 2023 Active 2023 61765 77070 1 Every 4 hours as needed By Mouth False Cymbalta 30 mg capsule,del ayed release 30 mg By Mouth Once daily For Depression 30 mg 2023 Active 2023 12365 19874 0 Once daily By Mouth False Acetaminoph en 500 mg tablet [generic] 1000 mg By Mouth Twice daily not to exceed 3gm APAP in 24 hours For Pain 1000 mg 2023 Active 2023 18864 70686 8 Twice daily By Mouth False Healthshake [...] Temperature SpO2 Blood Sugar Pulse Respirations 210 35577 7 78.00 mm[Hg] - Lying Down 186.00 mm[Hg] - Lying Down 109.80 NI 97.90 Forehead Scan 91.00 % 92.00/ min 18.00/min 210 66592 1 74.00 mm[Hg] - Lying Down 147.00 mm[Hg] - Lying Down 85.00/ min 211 21144 2 72.00 mm[Hg] - Sitting 138.00 mm[Hg] - Sitting 98.40 Tympanic 86.00/ min 18.00/min 84853 211 63676 2 59.00 mm[Hg] - Sitting 117.00 mm[Hg] - Sitting 98.20 Tympanic 99.00 % 81.00/ min 18.00/min 96643 211 74801 5 69.00 mm[Hg] - Sitting 145.00 mm[Hg] - Sitting 80231 211 78600 9 69.00 mm[Hg] - Sitting 145.00 mm[Hg] - Sitting 91500 211 40327 5 69.00 mm[Hg] - Sitting 145.00 mm[Hg] - Sitting 82602 211 65482 6 69.00 mm[Hg] - Sitting 02274 212 41739 7 59.00 mm[Hg] - Sitting 117.00 mm[Hg] - Sitting 98.20 Tympanic 81.00/ min 18.00/min 63215 212 97662 9 97.80 Tympanic 44042 212 30937 6 55.00 mm[Hg] - Sitting 109.00 mm[Hg] - Sitting 97.30 Tympanic 94.00 % 75.00/ min 18.00/min 19173 212 64180 5 68.00 mm[Hg] - Sitting 128.00 mm[Hg] - Sitting 97.80 Tympanic 80.00/ min 18.00/min 07193 212 95772 4 97.50 Tympanic 30925 212 95026 9 93431 212 74845 6 71.00 mm[Hg] - Sitting 117.00 mm[Hg] - Sitting 18681 213 73124 0 60.00 mm[Hg] - Sitting 116.00 mm[Hg] - Sitting 98.40 Forehead Scan 94.00 % 72.00/ min 16.00/min 34265 213 86278 7 70.00 mm[Hg] - Sitting 118.00 mm[Hg] - Sitting 98.00 Tympanic 82.00/ min 18.00/min 11017 213 17511 5 73.00 mm[Hg] - Lying Down 127.00 mm[Hg] - Lying Down 15202 213 67988 3
--- OUTSIDE RECORDS SUMMARY | 2024-04-10 03:21 | External Medical Summary | Continuity Of Care Document ---
Author Name Unknown Address [address] [address] Organization [facility] () Care Team Providers Care Configuration Management Manager Name Role Phone DO Alonso Amy Primary Care Provider [phone] Allergies Allergy Reaction Start Date End Date [...] 3 0.1 mL 01/29 Inactiv e 2023 14265 74776 0 1 time Intrad ermal False Tubersol 5 tub. unit/0.1 mL intradermal injection solution [Tuberculin PPD] 0.1mL Intradermal 1 time For PPD 2nd Step Give 2nd Step PPD Day 1 and Read results Day 3 (schedule 7 days after 1st READ) 0.1mL 02/07 Active 2023 50345 47349 0 1 time Intrad ermal False Oxycodone 5 mg tablet [generic] 5mg By Mouth Every 4 hours as needed for severe pain for pain rate 7-10. For right pubis fracture 5mg 01/27 Inactiv e 2023 59183 07756 1 Every 4 hours as needed By Mouth False OXYCODONE 5 MG TABLET [GENERIC]IM MEDIATE RELEASE 2.5mg By Mouth Every 4 hours as needed tablet po for moderate pain, pain rate 4-6 on pain scale 1-10. For pain 2.5mg 01/27 Inactiv e 2023 Every 4 hours as needed By Mouth False Oxycodone 5 mg tablet [generic] 01/27 Inactiv e 2023 07298 47467 1 Oxycodone 5 mg tablet [generic] 5mg By Mouth Every 4 hours as needed for severe pain for pain rate 7-10. For right pubis fracture 5mg 01/29 Inactiv e 2023 37559 89519 1 Every 4 hours as needed By [...] For Muscle spasms 175mg 2023 Active 2023 60086 09043 1 Every 6 hours as needed By Mouth False Cephalexin 500 mg capsule [generic] 500mg By Mouth Every 8 hours For UTI 500mg 01/30 Inactiv e 2023 85726 29889 1 Every 8 hours By Mouth False Aspirin 81 mg chewable tablet [generic] 81 mg By Mouth Once daily For AAA 81 mg 2023 Active 2023 98057 70875 6 Once daily By Mouth False Colace 100 mg capsule 100mg By Mouth Twice daily For constipation 100mg 2023 Active 2023 36633 69456 1 Twice daily By Mouth False Enoxaparin 300 mg/3 mL subcutaneou s solution [generic] 20mg Subcutaneous Once daily For anticoag. 20mg 2023 Active 2023 07015 47719 1 Once daily Subcut aneous False Losartan 50 mg tablet [generic] 50 By Mouth Once daily For HTN 50 2023 Active 2023 09973 64394 9 Once daily By Mouth False Miralax 17 gram/dose oral powder 17 gram By Mouth Once daily For contispation 17 gram 2023 Active 2023 34311 46259 0 Once daily By Mouth False Senna 8.6 mg tablet 2 tabs By Mouth Once daily For constipation 2 tabs 2023 Active 2023 36026 96904 1 Once daily By Mouth False Simvastatin 20 mg tablet [generic] 20 mg By Mouth Once daily For Hyperlipidemi a 20 mg 2023 Active 2023 14950 18973 0 Once daily By Mouth False Spiriva with HandiHaler 18 mcg and inhalation capsules 1 capsule Inhalation Once daily For COPD 1 capsule 2023 Active 2023 92917 96030 1 Once daily Inhala tion False Ventolin HFA 90 mcg/actuati on aerosol inhaler 2 puff Inhalation Every 4 hours as needed For COPD 2 puff 2023 Active 2023 30584 25398 0 Every 4 hours as needed Inhala tion False ProSource No Carb 15 gram-60 kcal/30 mL oral liquid 30ml By Mouth Twice daily For Protien supplement 30ml 01/30 Inactiv e 2023 63216 45328 5 Twice daily By Mouth False Albuterol sulfate 2.5 mg/3 mL (0.083 %) solution for nebulizatio n [generic] 3 ml Inhalation Every 6 hours as needed For wheezing 3 ml 2023 Active 2023 45787 66179 3 Every 6 hours as needed Inhala tion False Acetaminoph en 325 mg tablet [generic] 650 mg By Mouth Every 6 hours For Mild Pain 650 mg 01/29 Inactiv e 2023 18392 68421 0 Every 6 hours By Mouth False Tylenol 325 mg tablet 2 tabs By Mouth Every 4 hours as needed For Pain DO NOT EXCEED 3000 MG APAP/24 Hours 2 tabs 2023 Active 2023 28620 66977 0 Every 4 hours as needed By Mouth False Tylenol 325 mg tablet 2 tabs By Mouth Every 4 hours as needed For Fever >100 DO NOT EXCEED 3000 MG APAP/24 Hours 2 tabs 2023 Active 2023 99670 00413 0 Every 4 hours as needed By Mouth False Dulcolax (bisacodyl) 10 mg rectal suppository One Suppository per rectum PRN if Milk of Magnisia ineffective. Give on day 5 of no BM 1 sup 2023 Active 2023 23822 77255 1 Daily as needed Rectal False Fleet Enema 19 gram-7 gram/118 mL Administer per rectum PRN one time if dulcolax suppository not effective. Give on day 6 of no BM 1 2023 Active 2023 67890 16106 6 Daily as needed Rectal False Milk of Magnesia 400 mg/5 mL oral suspension [Magnesium hydroxide] PRN 30ml By Mouth Daily as needed for constipation one time daily if no BM, on day 4 of no BM (PRN refer to instructions) For Constipation 30 mL 2023 Active 2023 25294 44295 6 Daily as needed By Mouth False Oxycodone 5 mg tablet [generic] 01/29 Inactiv e 2023 37640 37010 1 Oxycodone 5 mg tablet [generic] 5mg By Mouth Every 4 hours as needed for severe pain for pain rate 7-10. For right pubis fracture 5mg 2023 Active 2023 23786 79335 1 Every 4 hours as needed By Mouth False Cymbalta 30 mg capsule,del ayed release 30 mg By Mouth Once daily For Depression 30 mg 2023 Active 2023 01341 62546 0 Once daily By Mouth False Acetaminoph en 500 mg tablet [generic] 1000 mg By Mouth Twice daily not to exceed 3gm APAP in 24 hours For Pain 1000 mg 2023 Active 2023 31953 13438 8 Twice daily By Mouth False Healthshake [...] Temperature SpO2 Blood Sugar Pulse Respirations 210 24918 7 78.00 mm[Hg] - Lying Down 186.00 mm[Hg] - Lying Down 109.80 NI 97.90 Forehead Scan 91.00 % 92.00/ min 18.00/min 210 73171 1 74.00 mm[Hg] - Lying Down 147.00 mm[Hg] - Lying Down 85.00/ min 211 07920 2 72.00 mm[Hg] - Sitting 138.00 mm[Hg] - Sitting 98.40 Tympanic 86.00/ min 18.00/min 00986 211 36484 2 59.00 mm[Hg] - Sitting 117.00 mm[Hg] - Sitting 98.20 Tympanic 99.00 % 81.00/ min 18.00/min 28341 211 19230 5 69.00 mm[Hg] - Sitting 145.00 mm[Hg] - Sitting 61249 211 17328 9 69.00 mm[Hg] - Sitting 145.00 mm[Hg] - Sitting 95343 211 00795 5 69.00 mm[Hg] - Sitting 145.00 mm[Hg] - Sitting 64369 211 98856 6 69.00 mm[Hg] - Sitting 78044 212 18439 7 59.00 mm[Hg] - Sitting 117.00 mm[Hg] - Sitting 98.20 Tympanic 81.00/ min 18.00/min 15518 212 90958 9 97.80 Tympanic 15200 212 01991 6 55.00 mm[Hg] - Sitting 109.00 mm[Hg] - Sitting 97.30 Tympanic 94.00 % 75.00/ min 18.00/min 01936 212 00316 5 68.00 mm[Hg] - Sitting 128.00 mm[Hg] - Sitting 97.80 Tympanic 80.00/ min 18.00/min 08118 212 34383 4 97.50 Tympanic 44848 212 10815 9 64204 212 28497 6 71.00 mm[Hg] - Sitting 117.00 mm[Hg] - Sitting 26522 213 58849 0 60.00 mm[Hg] - Sitting 116.00 mm[Hg] - Sitting 98.40 Forehead Scan 94.00 % 72.00/ min 16.00/min 03841 213 73459 7 70.00 mm[Hg] - Sitting 118.00 mm[Hg] - Sitting 98.00 Tympanic 82.00/ min 18.00/min 43463 213 43957 3 97.90 Tympanic 81402 213 96994 5 73.00 mm[Hg] - Lying Down 127.00 mm[Hg] - Lying Down 89355 213 17915 3 42325 214 21850 4 59.00 mm[Hg] - Lying Down 113.00 mm[Hg] - Lying Down
--- OUTSIDE RECORDS SUMMARY | 2024-04-10 03:21 | External Medical Summary | Continuity Of Care Document ---
Author Name Unknown Address [address] [address] Organization [facility] () Care Team Providers Care Staff Psychiatrist Name Role Phone DO Alonso Amy Primary Care Provider [phone] Allergies Allergy Reaction Start Date End Date [...] 3 0.1 mL 01/29 Inactiv e 2023 86860 23349 0 1 time Intrad ermal False Tubersol 5 tub. unit/0.1 mL intradermal injection solution [Tuberculin PPD] 0.1mL Intradermal 1 time For PPD 2nd Step Give 2nd Step PPD Day 1 and Read results Day 3 (schedule 7 days after 1st READ) 0.1mL 02/07 Active 2023 86239 30019 0 1 time Intrad ermal False Oxycodone 5 mg tablet [generic] 5mg By Mouth Every 4 hours as needed for severe pain for pain rate 7-10. For right pubis fracture 5mg 01/27 Inactiv e 2023 72581 86682 1 Every 4 hours as needed By Mouth False OXYCODONE 5 MG TABLET [GENERIC]IM MEDIATE RELEASE 2.5mg By Mouth Every 4 hours as needed tablet po for moderate pain, pain rate 4-6 on pain scale 1-10. For pain 2.5mg 01/27 Inactiv e 2023 Every 4 hours as needed By Mouth False Oxycodone 5 mg tablet [generic] 01/27 Inactiv e 2023 42579 09292 1 Oxycodone 5 mg tablet [generic] 5mg By Mouth Every 4 hours as needed for severe pain for pain rate 7-10. For right pubis fracture 5mg 01/29 Inactiv e 2023 27889 75647 1 Every 4 hours as needed By [...] For Muscle spasms 175mg 2023 Active 2023 19679 07161 1 Every 6 hours as needed By Mouth False Cephalexin 500 mg capsule [generic] 500mg By Mouth Every 8 hours For UTI 500mg 01/30 Active 2023 76414 24077 1 Every 8 hours By Mouth False Aspirin 81 mg chewable tablet [generic] 81 mg By Mouth Once daily For AAA 81 mg 2023 Active 2023 67410 21954 6 Once daily By Mouth False Colace 100 mg capsule 100mg By Mouth Twice daily For constipation 100mg 2023 Active 2023 00116 60995 1 Twice daily By Mouth False Enoxaparin 300 mg/3 mL subcutaneou s solution [generic] 20mg Subcutaneous Once daily For anticoag. 20mg 2023 Active 2023 40226 26198 1 Once daily Subcut aneous False Losartan 50 mg tablet [generic] 50 By Mouth Once daily For HTN 50 2023 Active 2023 16693 45602 9 Once daily By Mouth False Miralax 17 gram/dose oral powder 17 gram By Mouth Once daily For contispation 17 gram 2023 Active 2023 99883 54457 0 Once daily By Mouth False Senna 8.6 mg tablet 2 tabs By Mouth Once daily For constipation 2 tabs 2023 Active 2023 76529 05764 1 Once daily By Mouth False Simvastatin 20 mg tablet [generic] 20 mg By Mouth Once daily For Hyperlipidemi a 20 mg 2023 Active 2023 18081 75641 0 Once daily By Mouth False Spiriva with HandiHaler 18 mcg and inhalation capsules 1 capsule Inhalation Once daily For COPD 1 capsule 2023 Active 2023 57321 58062 1 Once daily Inhala tion False Ventolin HFA 90 mcg/actuati on aerosol inhaler 2 puff Inhalation Every 4 hours as needed For COPD 2 puff 2023 Active 2023 56271 07166 0 Every 4 hours as needed Inhala tion False ProSource No Carb 15 gram-60 kcal/30 mL oral liquid 30ml By Mouth Twice daily For Protien supplement 30ml 2023 Active 2023 10897 51201 5 Twice daily By Mouth False Albuterol sulfate 2.5 mg/3 mL (0.083 %) solution for nebulizatio n [generic] 3 ml Inhalation Every 6 hours as needed For wheezing 3 ml 2023 Active 2023 22971 18050 3 Every 6 hours as needed Inhala tion False Acetaminoph en 325 mg tablet [generic] 650 mg By Mouth Every 6 hours For Mild Pain 650 mg 01/29 Inactiv e 2023 27734 95943 0 Every 6 hours By Mouth False Tylenol 325 mg tablet 2 tabs By Mouth Every 4 hours as needed For Pain DO NOT EXCEED 3000 MG APAP/24 Hours 2 tabs 2023 Active 2023 20742 11567 0 Every 4 hours as needed By Mouth False Tylenol 325 mg tablet 2 tabs By Mouth Every 4 hours as needed For Fever >100 DO NOT EXCEED 3000 MG APAP/24 Hours 2 tabs 2023 Active 2023 99030 41371 0 Every 4 hours as needed By Mouth False Dulcolax (bisacodyl) 10 mg rectal suppository One Suppository per rectum PRN if Milk of Magnisia ineffective. Give on day 5 of no BM 1 sup 2023 Active 2023 57833 78933 1 Daily as needed Rectal False Fleet Enema 19 gram-7 gram/118 mL Administer per rectum PRN one time if dulcolax suppository not effective. Give on day 6 of no BM 1 2023 Active 2023 87152 85833 6 Daily as needed Rectal False Milk of Magnesia 400 mg/5 mL oral suspension [Magnesium hydroxide] PRN 30ml By Mouth Daily as needed for constipation one time daily if no BM, on day 4 of no BM (PRN refer to instructions) For Constipation 30 mL 2023 Active 2023 93315 52994 6 Daily as needed By Mouth False Oxycodone 5 mg tablet [generic] 01/29 Inactiv e 2023 96027 85676 1 Oxycodone 5 mg tablet [generic] 5mg By Mouth Every 4 hours as needed for severe pain for pain rate 7-10. For right pubis fracture 5mg 2023 Active 2023 76381 49110 1 Every 4 hours as needed By Mouth False Cymbalta 30 mg capsule,del ayed release 30 mg By Mouth Once daily For Depression 30 mg 2023 Active 2023 97252 52175 0 Once daily By Mouth False Acetaminoph en 500 mg tablet [generic] 1000 mg By Mouth Twice daily not to exceed 3gm APAP in 24 hours For Pain 1000 mg 2023 Active 2023 36595 63609 8 Twice daily By Mouth False Problems [...] Temperature SpO2 Blood Sugar Pulse Respirations 210 81907 7 78.00 mm[Hg] - Lying Down 186.00 mm[Hg] - Lying Down 109.80 NI 97.90 Forehead Scan 91.00 % 92.00/ min 18.00/min 210 40478 1 74.00 mm[Hg] - Lying Down 147.00 mm[Hg] - Lying Down 85.00/ min 211 24734 2 72.00 mm[Hg] - Sitting 138.00 mm[Hg] - Sitting 98.40 Tympanic 86.00/ min 18.00/min 211 21325 2 59.00 mm[Hg] - Sitting 117.00 mm[Hg] - Sitting 98.20 Tympanic 99.00 % 81.00/ min 18.00/min 17356 211 17486 5 69.00 mm[Hg] - Sitting 145.00 mm[Hg] - Sitting 29537 211 76075 9 69.00 mm[Hg] - Sitting 145.00 mm[Hg] - Sitting 46896 211 18812 5 69.00 mm[Hg] - Sitting 145.00 mm[Hg] - Sitting 07276 211 74966 6 69.00 mm[Hg] - Sitting 13200 212 83907 7 59.00 mm[Hg] - Sitting 117.00 mm[Hg] - Sitting 98.20 Tympanic 81.00/ min 18.00/min 20599 212 56098 9 97.80 Tympanic 01570 212 00107 6 55.00 mm[Hg] - Sitting 109.00 mm[Hg] - Sitting 97.30 Tympanic 94.00 % 75.00/ min 18.00/min 25719 212 59034 5 68.00 mm[Hg] - Sitting 128.00 mm[Hg] - Sitting 97.80 Tympanic 80.00/ min 18.00/min 98366 212 06362 4 97.50 Tympanic 07741 212 72218 9 62804 212 05633 6 71.00 mm[Hg] - Sitting 117.00 mm[Hg] - Sitting
--- OUTSIDE RECORDS SUMMARY | 2024-04-10 03:21 | External Medical Summary | Continuity Of Care Document ---
Author Name Unknown Address [address] [address] Organization [facility] () Care Team Providers Care Erecting Engineer Name Role Phone DO Alonso Amy Primary Care Provider [phone] Allergies Allergy Reaction Start Date End Date [...] 3 0.1 mL 01/29 Inactiv e 2023 09743 29469 0 1 time Intrad ermal False Tubersol 5 tub. unit/0.1 mL intradermal injection solution [Tuberculin PPD] 0.1mL Intradermal 1 time For PPD 2nd Step Give 2nd Step PPD Day 1 and Read results Day 3 (schedule 7 days after 1st READ) 0.1mL 02/07 Active 2023 62870 94316 0 1 time Intrad ermal False Oxycodone 5 mg tablet [generic] 5mg By Mouth Every 4 hours as needed for severe pain for pain rate 7-10. For right pubis fracture 5mg 01/27 Inactiv e 2023 62857 18300 1 Every 4 hours as needed By Mouth False OXYCODONE 5 MG TABLET [GENERIC]IM MEDIATE RELEASE 2.5mg By Mouth Every 4 hours as needed tablet po for moderate pain, pain rate 4-6 on pain scale 1-10. For pain 2.5mg 01/27 Inactiv e 2023 Every 4 hours as needed By Mouth False Oxycodone 5 mg tablet [generic] 01/27 Inactiv e 2023 93114 89677 1 Oxycodone 5 mg tablet [generic] 5mg By Mouth Every 4 hours as needed for severe pain for pain rate 7-10. For right pubis fracture 5mg 01/29 Inactiv e 2023 99755 83405 1 Every 4 hours as needed By [...] For Muscle spasms 175mg 2023 Active 2023 49969 42501 1 Every 6 hours as needed By Mouth False Cephalexin 500 mg capsule [generic] 500mg By Mouth Every 8 hours For UTI 500mg 01/30 Inactiv e 2023 89735 52931 1 Every 8 hours By Mouth False Aspirin 81 mg chewable tablet [generic] 81 mg By Mouth Once daily For AAA 81 mg 2023 Active 2023 60851 52211 6 Once daily By Mouth False Colace 100 mg capsule 100mg By Mouth Twice daily For constipation 100mg 2023 Active 2023 10593 15691 1 Twice daily By Mouth False Enoxaparin 300 mg/3 mL subcutaneou s solution [generic] 20mg Subcutaneous Once daily For anticoag. 20mg 2023 Active 2023 49303 38358 1 Once daily Subcut aneous False Losartan 50 mg tablet [generic] 50 By Mouth Once daily For HTN 50 2023 Active 2023 25252 06102 9 Once daily By Mouth False Miralax 17 gram/dose oral powder 17 gram By Mouth Once daily For contispation 17 gram 2023 Active 2023 36680 05582 0 Once daily By Mouth False Senna 8.6 mg tablet 2 tabs By Mouth Once daily For constipation 2 tabs 2023 Active 2023 22227 55506 1 Once daily By Mouth False Simvastatin 20 mg tablet [generic] 20 mg By Mouth Once daily For Hyperlipidemi a 20 mg 2023 Active 2023 02278 46011 0 Once daily By Mouth False Spiriva with HandiHaler 18 mcg and inhalation capsules 1 capsule Inhalation Once daily For COPD 1 capsule 2023 Active 2023 21135 87335 1 Once daily Inhala tion False Ventolin HFA 90 mcg/actuati on aerosol inhaler 2 puff Inhalation Every 4 hours as needed For COPD 2 puff 2023 Active 2023 45177 27786 0 Every 4 hours as needed Inhala tion False ProSource No Carb 15 gram-60 kcal/30 mL oral liquid 30ml By Mouth Twice daily For Protien supplement 30ml 2023 Active 2023 56125 85489 5 Twice daily By Mouth False Albuterol sulfate 2.5 mg/3 mL (0.083 %) solution for nebulizatio n [generic] 3 ml Inhalation Every 6 hours as needed For wheezing 3 ml 2023 Active 2023 82660 86105 3 Every 6 hours as needed Inhala tion False Acetaminoph en 325 mg tablet [generic] 650 mg By Mouth Every 6 hours For Mild Pain 650 mg 01/29 Inactiv e 2023 58687 08910 0 Every 6 hours By Mouth False Tylenol 325 mg tablet 2 tabs By Mouth Every 4 hours as needed For Pain DO NOT EXCEED 3000 MG APAP/24 Hours 2 tabs 2023 Active 2023 33785 38533 0 Every 4 hours as needed By Mouth False Tylenol 325 mg tablet 2 tabs By Mouth Every 4 hours as needed For Fever >100 DO NOT EXCEED 3000 MG APAP/24 Hours 2 tabs 2023 Active 2023 07007 79178 0 Every 4 hours as needed By Mouth False Dulcolax (bisacodyl) 10 mg rectal suppository One Suppository per rectum PRN if Milk of Magnisia ineffective. Give on day 5 of no BM 1 sup 2023 Active 2023 31370 45287 1 Daily as needed Rectal False Fleet Enema 19 gram-7 gram/118 mL Administer per rectum PRN one time if dulcolax suppository not effective. Give on day 6 of no BM 1 2023 Active 2023 78268 48155 6 Daily as needed Rectal False Milk of Magnesia 400 mg/5 mL oral suspension [Magnesium hydroxide] PRN 30ml By Mouth Daily as needed for constipation one time daily if no BM, on day 4 of no BM (PRN refer to instructions) For Constipation 30 mL 2023 Active 2023 81515 53315 6 Daily as needed By Mouth False Oxycodone 5 mg tablet [generic] 01/29 Inactiv e 2023 96550 53393 1 Oxycodone 5 mg tablet [generic] 5mg By Mouth Every 4 hours as needed for severe pain for pain rate 7-10. For right pubis fracture 5mg 2023 Active 2023 46687 13288 1 Every 4 hours as needed By Mouth False Cymbalta 30 mg capsule,del ayed release 30 mg By Mouth Once daily For Depression 30 mg 2023 Active 2023 06061 32749 0 Once daily By Mouth False Acetaminoph en 500 mg tablet [generic] 1000 mg By Mouth Twice daily not to exceed 3gm APAP in 24 hours For Pain 1000 mg 2023 Active 2023 06323 83365 8 Twice daily By Mouth False Problems [...] Temperature SpO2 Blood Sugar Pulse Respirations 210 05428 7 78.00 mm[Hg] - Lying Down 186.00 mm[Hg] - Lying Down 109.80 NI 97.90 Forehead Scan 91.00 % 92.00/ min 18.00/min 210 74922 1 74.00 mm[Hg] - Lying Down 147.00 mm[Hg] - Lying Down 85.00/ min 211 81067 2 72.00 mm[Hg] - Sitting 138.00 mm[Hg] - Sitting 98.40 Tympanic 86.00/ min 18.00/min 211 37078 2 59.00 mm[Hg] - Sitting 117.00 mm[Hg] - Sitting 98.20 Tympanic 99.00 % 81.00/ min 18.00/min 38561 211 16293 5 69.00 mm[Hg] - Sitting 145.00 mm[Hg] - Sitting 66526 211 07373 9 69.00 mm[Hg] - Sitting 145.00 mm[Hg] - Sitting 22002 211 77153 5 69.00 mm[Hg] - Sitting 145.00 mm[Hg] - Sitting 62751 211 69512 6 69.00 mm[Hg] - Sitting 71893 212 25948 7 59.00 mm[Hg] - Sitting 117.00 mm[Hg] - Sitting 98.20 Tympanic 81.00/ min 18.00/min 51220 212 47533 9 97.80 Tympanic 88743 212 77848 6 55.00 mm[Hg] - Sitting 109.00 mm[Hg] - Sitting 97.30 Tympanic 94.00 % 75.00/ min 18.00/min 39363 212 26213 5 68.00 mm[Hg] - Sitting 128.00 mm[Hg] - Sitting 97.80 Tympanic 80.00/ min 18.00/min 23073 212 75816 4 97.50 Tympanic 26282 212 22736 9 28063 212 56318 6 71.00 mm[Hg] - Sitting 117.00 mm[Hg] - Sitting
--- OUTSIDE RECORDS SUMMARY | 2024-04-10 03:21 | External Medical Summary | Continuity Of Care Document ---
Author Name Unknown Address [address] [address] Organization [facility] () Care Team Providers Care Senior Clerk Name Role Phone DO Alonso Amy Primary Care Provider [phone] Allergies Allergy Reaction Start Date End Date [...] 3 0.1 mL 01/29 Inactiv e 2023 25584 00551 0 1 time Intrad ermal False Tubersol 5 tub. unit/0.1 mL intradermal injection solution [Tuberculin PPD] 0.1mL Intradermal 1 time For PPD 2nd Step Give 2nd Step PPD Day 1 and Read results Day 3 (schedule 7 days after 1st READ) 0.1mL 02/07 Active 2023 62869 31380 0 1 time Intrad ermal False Oxycodone 5 mg tablet [generic] 5mg By Mouth Every 4 hours as needed for severe pain for pain rate 7-10. For right pubis fracture 5mg 01/27 Inactiv e 2023 14002 98278 1 Every 4 hours as needed By Mouth False OXYCODONE 5 MG TABLET [GENERIC]IM MEDIATE RELEASE 2.5mg By Mouth Every 4 hours as needed tablet po for moderate pain, pain rate 4-6 on pain scale 1-10. For pain 2.5mg 01/27 Inactiv e 2023 Every 4 hours as needed By Mouth False Oxycodone 5 mg tablet [generic] 01/27 Inactiv e 2023 36571 77451 1 Oxycodone 5 mg tablet [generic] 5mg By Mouth Every 4 hours as needed for severe pain for pain rate 7-10. For right pubis fracture 5mg 01/29 Inactiv e 2023 16643 13162 1 Every 4 hours as needed By [...] For Muscle spasms 175mg 2023 Active 2023 77194 05568 1 Every 6 hours as needed By Mouth False Cephalexin 500 mg capsule [generic] 500mg By Mouth Every 8 hours For UTI 500mg 01/30 Inactiv e 2023 66422 54933 1 Every 8 hours By Mouth False Aspirin 81 mg chewable tablet [generic] 81 mg By Mouth Once daily For AAA 81 mg 2023 Active 2023 14992 97209 6 Once daily By Mouth False Colace 100 mg capsule 100mg By Mouth Twice daily For constipation 100mg 2023 Active 2023 59797 40957 1 Twice daily By Mouth False Enoxaparin 300 mg/3 mL subcutaneou s solution [generic] 20mg Subcutaneous Once daily For anticoag. 20mg 2023 Active 2023 03920 30672 1 Once daily Subcut aneous False Losartan 50 mg tablet [generic] 50 By Mouth Once daily For HTN 50 2023 Active 2023 42786 52694 9 Once daily By Mouth False Miralax 17 gram/dose oral powder 17 gram By Mouth Once daily For contispation 17 gram 2023 Active 2023 87898 24999 0 Once daily By Mouth False Senna 8.6 mg tablet 2 tabs By Mouth Once daily For constipation 2 tabs 2023 Active 2023 74935 58886 1 Once daily By Mouth False Simvastatin 20 mg tablet [generic] 20 mg By Mouth Once daily For Hyperlipidemi a 20 mg 2023 Active 2023 48993 04893 0 Once daily By Mouth False Spiriva with HandiHaler 18 mcg and inhalation capsules 1 capsule Inhalation Once daily For COPD 1 capsule 2023 Active 2023 79418 82359 1 Once daily Inhala tion False Ventolin HFA 90 mcg/actuati on aerosol inhaler 2 puff Inhalation Every 4 hours as needed For COPD 2 puff 2023 Active 2023 13602 84615 0 Every 4 hours as needed Inhala tion False ProSource No Carb 15 gram-60 kcal/30 mL oral liquid 30ml By Mouth Twice daily For Protien supplement 30ml 01/30 Inactiv e 2023 21157 90901 5 Twice daily By Mouth False Albuterol sulfate 2.5 mg/3 mL (0.083 %) solution for nebulizatio n [generic] 3 ml Inhalation Every 6 hours as needed For wheezing 3 ml 2023 Active 2023 43409 11473 3 Every 6 hours as needed Inhala tion False Acetaminoph en 325 mg tablet [generic] 650 mg By Mouth Every 6 hours For Mild Pain 650 mg 01/29 Inactiv e 2023 95636 61815 0 Every 6 hours By Mouth False Tylenol 325 mg tablet 2 tabs By Mouth Every 4 hours as needed For Pain DO NOT EXCEED 3000 MG APAP/24 Hours 2 tabs 2023 Active 2023 95808 75700 0 Every 4 hours as needed By Mouth False Tylenol 325 mg tablet 2 tabs By Mouth Every 4 hours as needed For Fever >100 DO NOT EXCEED 3000 MG APAP/24 Hours 2 tabs 2023 Active 2023 27708 59805 0 Every 4 hours as needed By Mouth False Dulcolax (bisacodyl) 10 mg rectal suppository One Suppository per rectum PRN if Milk of Magnisia ineffective. Give on day 5 of no BM 1 sup 2023 Active 2023 10945 89427 1 Daily as needed Rectal False Fleet Enema 19 gram-7 gram/118 mL Administer per rectum PRN one time if dulcolax suppository not effective. Give on day 6 of no BM 1 2023 Active 2023 94633 88184 6 Daily as needed Rectal False Milk of Magnesia 400 mg/5 mL oral suspension [Magnesium hydroxide] PRN 30ml By Mouth Daily as needed for constipation one time daily if no BM, on day 4 of no BM (PRN refer to instructions) For Constipation 30 mL 2023 Active 2023 75804 98757 6 Daily as needed By Mouth False Oxycodone 5 mg tablet [generic] 01/29 Inactiv e 2023 62813 27439 1 Oxycodone 5 mg tablet [generic] 5mg By Mouth Every 4 hours as needed for severe pain for pain rate 7-10. For right pubis fracture 5mg 01/31 Inactiv e 2023 36462 97466 1 Every 4 hours as needed By Mouth False Cymbalta 30 mg capsule,del ayed release 30 mg By Mouth Once daily For Depression 30 mg 2023 Active 2023 68152 40009 0 Once daily By Mouth False Acetaminoph en 500 mg tablet [generic] 1000 mg By Mouth Twice daily not to exceed 3gm APAP in 24 hours For Pain 1000 mg 2023 Active 2023 98773 92169 8 Twice daily By Mouth False Healthshake 118 ml BID 118 ml By Mouth Twice daily Healthshake 118 ml BID For MNA of 7 - malnourished - please record total ml consumed 118 ml 2023 Active 2023 Twice daily By Mouth False Oxycodone 5 mg tablet [generic] 01/31 Inactiv e 2023 78623 72673 1 Oxycodone 5 mg tablet [generic] 5mg By Mouth Every 4 hours as needed for severe pain for pain rate 7-10. For right pubis fracture 5mg 2023 Active 2023 55263 04870 1 Every 4 hours as needed By [...] Temperature SpO2 Blood Sugar Pulse Respirations 210 74792 7 78.00 mm[Hg] - Lying Down 186.00 mm[Hg] - Lying Down 109.80 NI 97.90 Forehead Scan 91.00 % 92.00/ min 18.00/min 210 88037 1 74.00 mm[Hg] - Lying Down 147.00 mm[Hg] - Lying Down 85.00/ min 211 64713 2 72.00 mm[Hg] - Sitting 138.00 mm[Hg] - Sitting 98.40 Tympanic 86.00/ min 18.00/min 211 81163 2 59.00 mm[Hg] - Sitting 117.00 mm[Hg] - Sitting 98.20 Tympanic 99.00 % 81.00/ min 18.00/min 211 11619 5 69.00 mm[Hg] - Sitting 145.00 mm[Hg] - Sitting 211 32669 9 69.00 mm[Hg] - Sitting 145.00 mm[Hg] - Sitting 211 37653 5 69.00 mm[Hg] - Sitting 145.00 mm[Hg] - Sitting 211 12691 6 69.00 mm[Hg] - Sitting 212 63613 7 59.00 mm[Hg] - Sitting 117.00 mm[Hg] - Sitting 98.20 Tympanic 81.00/ min 18.00/min 80648 212 72036 9 97.80 Tympanic 212 92664 6 55.00 mm[Hg] - Sitting 109.00 mm[Hg] - Sitting 97.30 Tympanic 94.00 % 75.00/ min 18.00/min 31786 212 18326 5 68.00 mm[Hg] - Sitting 128.00 mm[Hg] - Sitting 97.80 Tympanic 80.00/ min 18.00/min 90507 212 76411 4 97.50 Tympanic 78484 212 96193 9 92235 212 61176 6 71.00 mm[Hg] - Sitting 117.00 mm[Hg] - Sitting 213 82957 0 60.00 mm[Hg] - Sitting 116.00 mm[Hg] - Sitting 98.40 Forehead Scan 94.00 % 72.00/ min 16.00/min 213 37350 7 70.00 mm[Hg] - Sitting 118.00 mm[Hg] - Sitting 98.00 Tympanic 82.00/ min 18.00/min 56121 213 86418 3 97.90 Tympanic 39964 213 82104 5 73.00 mm[Hg] - Lying Down 127.00 mm[Hg] - Lying Down 12406 213 54329 3 60650 214 01658 4 59.00 mm[Hg] - Lying Down 113.00 mm[Hg] - Lying Down
--- OUTSIDE RECORDS SUMMARY | 2024-04-10 03:21 | External Medical Summary | Continuity Of Care Document ---
Author Name Unknown Address [address] [address] Organization [facility] () Care Team Providers Care Firearms Assembly Supervisor Name Role Phone DO Alonso Amy Primary Care Provider [phone] Allergies Allergy Reaction Start Date End Date [...] 3 0.1 mL 01/29 Inactiv e 2023 23863 51576 0 1 time Intrad ermal False Tubersol 5 tub. unit/0.1 mL intradermal injection solution [Tuberculin PPD] 0.1mL Intradermal 1 time For PPD 2nd Step Give 2nd Step PPD Day 1 and Read results Day 3 (schedule 7 days after 1st READ) 0.1mL 02/07 Active 2023 91162 61833 0 1 time Intrad ermal False Oxycodone 5 mg tablet [generic] 5mg By Mouth Every 4 hours as needed for severe pain for pain rate 7-10. For right pubis fracture 5mg 01/27 Inactiv e 2023 19423 27286 1 Every 4 hours as needed By Mouth False OXYCODONE 5 MG TABLET [GENERIC]IM MEDIATE RELEASE 2.5mg By Mouth Every 4 hours as needed tablet po for moderate pain, pain rate 4-6 on pain scale 1-10. For pain 2.5mg 01/27 Inactiv e 2023 Every 4 hours as needed By Mouth False Oxycodone 5 mg tablet [generic] 01/27 Inactiv e 2023 93929 38502 1 Oxycodone 5 mg tablet [generic] 5mg By Mouth Every 4 hours as needed for severe pain for pain rate 7-10. For right pubis fracture 5mg 01/29 Inactiv e 2023 67279 51997 1 Every 4 hours as needed By [...] For Muscle spasms 175mg 2023 Active 2023 96085 12674 1 Every 6 hours as needed By Mouth False Cephalexin 500 mg capsule [generic] 500mg By Mouth Every 8 hours For UTI 500mg 01/30 Inactiv e 2023 66312 74940 1 Every 8 hours By Mouth False Aspirin 81 mg chewable tablet [generic] 81 mg By Mouth Once daily For AAA 81 mg 2023 Active 2023 53231 94093 6 Once daily By Mouth False Colace 100 mg capsule 100mg By Mouth Twice daily For constipation 100mg 2023 Active 2023 38282 84424 1 Twice daily By Mouth False Enoxaparin 300 mg/3 mL subcutaneou s solution [generic] 20mg Subcutaneous Once daily For anticoag. 20mg 2023 Active 2023 55758 48117 1 Once daily Subcut aneous False Losartan 50 mg tablet [generic] 50 By Mouth Once daily For HTN 50 2023 Active 2023 43714 96609 9 Once daily By Mouth False Miralax 17 gram/dose oral powder 17 gram By Mouth Once daily For contispation 17 gram 2023 Active 2023 82703 66094 0 Once daily By Mouth False Senna 8.6 mg tablet 2 tabs By Mouth Once daily For constipation 2 tabs 2023 Active 2023 99591 06177 1 Once daily By Mouth False Simvastatin 20 mg tablet [generic] 20 mg By Mouth Once daily For Hyperlipidemi a 20 mg 2023 Active 2023 34349 33539 0 Once daily By Mouth False Spiriva with HandiHaler 18 mcg and inhalation capsules 1 capsule Inhalation Once daily For COPD 1 capsule 2023 Active 2023 53137 71397 1 Once daily Inhala tion False Ventolin HFA 90 mcg/actuati on aerosol inhaler 2 puff Inhalation Every 4 hours as needed For COPD 2 puff 2023 Active 2023 01717 11937 0 Every 4 hours as needed Inhala tion False ProSource No Carb 15 gram-60 kcal/30 mL oral liquid 30ml By Mouth Twice daily For Protien supplement 30ml 01/30 Inactiv e 2023 59933 91986 5 Twice daily By Mouth False Albuterol sulfate 2.5 mg/3 mL (0.083 %) solution for nebulizatio n [generic] 3 ml Inhalation Every 6 hours as needed For wheezing 3 ml 2023 Active 2023 23598 66556 3 Every 6 hours as needed Inhala tion False Acetaminoph en 325 mg tablet [generic] 650 mg By Mouth Every 6 hours For Mild Pain 650 mg 01/29 Inactiv e 2023 41120 87595 0 Every 6 hours By Mouth False Tylenol 325 mg tablet 2 tabs By Mouth Every 4 hours as needed For Pain DO NOT EXCEED 3000 MG APAP/24 Hours 2 tabs 2023 Active 2023 70716 70502 0 Every 4 hours as needed By Mouth False Tylenol 325 mg tablet 2 tabs By Mouth Every 4 hours as needed For Fever >100 DO NOT EXCEED 3000 MG APAP/24 Hours 2 tabs 2023 Active 2023 00846 21458 0 Every 4 hours as needed By Mouth False Dulcolax (bisacodyl) 10 mg rectal suppository One Suppository per rectum PRN if Milk of Magnisia ineffective. Give on day 5 of no BM 1 sup 2023 Active 2023 67835 71162 1 Daily as needed Rectal False Fleet Enema 19 gram-7 gram/118 mL Administer per rectum PRN one time if dulcolax suppository not effective. Give on day 6 of no BM 1 2023 Active 2023 07647 62149 6 Daily as needed Rectal False Milk of Magnesia 400 mg/5 mL oral suspension [Magnesium hydroxide] PRN 30ml By Mouth Daily as needed for constipation one time daily if no BM, on day 4 of no BM (PRN refer to instructions) For Constipation 30 mL 2023 Active 2023 95992 19173 6 Daily as needed By Mouth False Oxycodone 5 mg tablet [generic] 01/29 Inactiv e 2023 75528 05516 1 Oxycodone 5 mg tablet [generic] 5mg By Mouth Every 4 hours as needed for severe pain for pain rate 7-10. For right pubis fracture 5mg 2023 Active 2023 34815 73837 1 Every 4 hours as needed By Mouth False Cymbalta 30 mg capsule,del ayed release 30 mg By Mouth Once daily For Depression 30 mg 2023 Active 2023 53070 83978 0 Once daily By Mouth False Acetaminoph en 500 mg tablet [generic] 1000 mg By Mouth Twice daily not to exceed 3gm APAP in 24 hours For Pain 1000 mg 2023 Active 2023 76264 84176 8 Twice daily By Mouth False Healthshake [...] Temperature SpO2 Blood Sugar Pulse Respirations 210 24064 7 78.00 mm[Hg] - Lying Down 186.00 mm[Hg] - Lying Down 109.80 NI 97.90 Forehead Scan 91.00 % 92.00/ min 18.00/min 210 03592 1 74.00 mm[Hg] - Lying Down 147.00 mm[Hg] - Lying Down 85.00/ min 211 30359 2 72.00 mm[Hg] - Sitting 138.00 mm[Hg] - Sitting 98.40 Tympanic 86.00/ min 18.00/min 49607 211 94102 2 59.00 mm[Hg] - Sitting 117.00 mm[Hg] - Sitting 98.20 Tympanic 99.00 % 81.00/ min 18.00/min 94162 211 34871 5 69.00 mm[Hg] - Sitting 145.00 mm[Hg] - Sitting 62616 211 73177 9 69.00 mm[Hg] - Sitting 145.00 mm[Hg] - Sitting 69353 211 83837 5 69.00 mm[Hg] - Sitting 145.00 mm[Hg] - Sitting 72865 211 74300 6 69.00 mm[Hg] - Sitting 81489 212 74404 7 59.00 mm[Hg] - Sitting 117.00 mm[Hg] - Sitting 98.20 Tympanic 81.00/ min 18.00/min 72913 212 00127 9 97.80 Tympanic 22214 212 97213 6 55.00 mm[Hg] - Sitting 109.00 mm[Hg] - Sitting 97.30 Tympanic 94.00 % 75.00/ min 18.00/min 17781 212 14895 5 68.00 mm[Hg] - Sitting 128.00 mm[Hg] - Sitting 97.80 Tympanic 80.00/ min 18.00/min 45582 212 27405 4 97.50 Tympanic 78296 212 17563 9 74033 212 93229 6 71.00 mm[Hg] - Sitting 117.00 mm[Hg] - Sitting 81604 213 41570 0 60.00 mm[Hg] - Sitting 116.00 mm[Hg] - Sitting 98.40 Forehead Scan 94.00 % 72.00/ min 16.00/min 95523 213 83671 7 70.00 mm[Hg] - Sitting 118.00 mm[Hg] - Sitting 98.00 Tympanic 82.00/ min 18.00/min 80788 213 19491 3 97.90 Tympanic 85166 213 68128 5 73.00 mm[Hg] - Lying Down 127.00 mm[Hg] - Lying Down 22423 213 27963 3
--- OUTSIDE RECORDS SUMMARY | 2024-04-10 03:21 | External Medical Summary | Continuity Of Care Document ---
Author Name Unknown Address [address] [address] Organization [facility] () Care Team Providers Care Cooker Chip Name Role Phone DO Alonso Amy Primary Care Provider [phone] Allergies Allergy Reaction Start Date End Date [...] 3 0.1 mL 01/29 Inactiv e 2023 09983 21963 0 1 time Intrad ermal False Tubersol 5 tub. unit/0.1 mL intradermal injection solution [Tuberculin PPD] 0.1mL Intradermal 1 time For PPD 2nd Step Give 2nd Step PPD Day 1 and Read results Day 3 (schedule 7 days after 1st READ) 0.1mL 02/07 Active 2023 39672 94868 0 1 time Intrad ermal False Oxycodone 5 mg tablet [generic] 5mg By Mouth Every 4 hours as needed for severe pain for pain rate 7-10. For right pubis fracture 5mg 01/27 Inactiv e 2023 00195 14753 1 Every 4 hours as needed By Mouth False OXYCODONE 5 MG TABLET [GENERIC]IM MEDIATE RELEASE 2.5mg By Mouth Every 4 hours as needed tablet po for moderate pain, pain rate 4-6 on pain scale 1-10. For pain 2.5mg 01/27 Inactiv e 2023 Every 4 hours as needed By Mouth False Oxycodone 5 mg tablet [generic] 01/27 Inactiv e 2023 21180 60603 1 Oxycodone 5 mg tablet [generic] 5mg By Mouth Every 4 hours as needed for severe pain for pain rate 7-10. For right pubis fracture 5mg 01/29 Inactiv e 2023 96105 60828 1 Every 4 hours as needed By [...] For Muscle spasms 175mg 2023 Active 2023 89268 76057 1 Every 6 hours as needed By Mouth False Cephalexin 500 mg capsule [generic] 500mg By Mouth Every 8 hours For UTI 500mg 01/30 Inactiv e 2023 56048 65897 1 Every 8 hours By Mouth False Aspirin 81 mg chewable tablet [generic] 81 mg By Mouth Once daily For AAA 81 mg 2023 Active 2023 05941 22033 6 Once daily By Mouth False Colace 100 mg capsule 100mg By Mouth Twice daily For constipation 100mg 2023 Active 2023 12702 13836 1 Twice daily By Mouth False Enoxaparin 300 mg/3 mL subcutaneou s solution [generic] 20mg Subcutaneous Once daily For anticoag. 20mg 2023 Active 2023 14466 83754 1 Once daily Subcut aneous False Losartan 50 mg tablet [generic] 50 By Mouth Once daily For HTN 50 2023 Active 2023 40517 91575 9 Once daily By Mouth False Miralax 17 gram/dose oral powder 17 gram By Mouth Once daily For contispation 17 gram 2023 Active 2023 37725 44678 0 Once daily By Mouth False Senna 8.6 mg tablet 2 tabs By Mouth Once daily For constipation 2 tabs 2023 Active 2023 08961 38164 1 Once daily By Mouth False Simvastatin 20 mg tablet [generic] 20 mg By Mouth Once daily For Hyperlipidemi a 20 mg 2023 Active 2023 30415 14169 0 Once daily By Mouth False Spiriva with HandiHaler 18 mcg and inhalation capsules 1 capsule Inhalation Once daily For COPD 1 capsule 2023 Active 2023 81235 71949 1 Once daily Inhala tion False Ventolin HFA 90 mcg/actuati on aerosol inhaler 2 puff Inhalation Every 4 hours as needed For COPD 2 puff 2023 Active 2023 43554 04343 0 Every 4 hours as needed Inhala tion False ProSource No Carb 15 gram-60 kcal/30 mL oral liquid 30ml By Mouth Twice daily For Protien supplement 30ml 2023 Active 2023 99030 90860 5 Twice daily By Mouth False Albuterol sulfate 2.5 mg/3 mL (0.083 %) solution for nebulizatio n [generic] 3 ml Inhalation Every 6 hours as needed For wheezing 3 ml 2023 Active 2023 85068 56833 3 Every 6 hours as needed Inhala tion False Acetaminoph en 325 mg tablet [generic] 650 mg By Mouth Every 6 hours For Mild Pain 650 mg 01/29 Inactiv e 2023 37872 88924 0 Every 6 hours By Mouth False Tylenol 325 mg tablet 2 tabs By Mouth Every 4 hours as needed For Pain DO NOT EXCEED 3000 MG APAP/24 Hours 2 tabs 2023 Active 2023 30465 54595 0 Every 4 hours as needed By Mouth False Tylenol 325 mg tablet 2 tabs By Mouth Every 4 hours as needed For Fever >100 DO NOT EXCEED 3000 MG APAP/24 Hours 2 tabs 2023 Active 2023 70582 45837 0 Every 4 hours as needed By Mouth False Dulcolax (bisacodyl) 10 mg rectal suppository One Suppository per rectum PRN if Milk of Magnisia ineffective. Give on day 5 of no BM 1 sup 2023 Active 2023 93425 18885 1 Daily as needed Rectal False Fleet Enema 19 gram-7 gram/118 mL Administer per rectum PRN one time if dulcolax suppository not effective. Give on day 6 of no BM 1 2023 Active 2023 56246 99494 6 Daily as needed Rectal False Milk of Magnesia 400 mg/5 mL oral suspension [Magnesium hydroxide] PRN 30ml By Mouth Daily as needed for constipation one time daily if no BM, on day 4 of no BM (PRN refer to instructions) For Constipation 30 mL 2023 Active 2023 19737 29892 6 Daily as needed By Mouth False Oxycodone 5 mg tablet [generic] 01/29 Inactiv e 2023 22239 82089 1 Oxycodone 5 mg tablet [generic] 5mg By Mouth Every 4 hours as needed for severe pain for pain rate 7-10. For right pubis fracture 5mg 2023 Active 2023 22900 26072 1 Every 4 hours as needed By Mouth False Cymbalta 30 mg capsule,del ayed release 30 mg By Mouth Once daily For Depression 30 mg 2023 Active 2023 85749 95004 0 Once daily By Mouth False Acetaminoph en 500 mg tablet [generic] 1000 mg By Mouth Twice daily not to exceed 3gm APAP in 24 hours For Pain 1000 mg 2023 Active 2023 69118 25732 8 Twice daily By Mouth False Problems [...] Temperature SpO2 Blood Sugar Pulse Respirations 210 69048 7 78.00 mm[Hg] - Lying Down 186.00 mm[Hg] - Lying Down 109.80 NI 97.90 Forehead Scan 91.00 % 92.00/ min 18.00/min 210 47436 1 74.00 mm[Hg] - Lying Down 147.00 mm[Hg] - Lying Down 85.00/ min 211 00833 2 72.00 mm[Hg] - Sitting 138.00 mm[Hg] - Sitting 98.40 Tympanic 86.00/ min 18.00/min 211 50603 2 59.00 mm[Hg] - Sitting 117.00 mm[Hg] - Sitting 98.20 Tympanic 99.00 % 81.00/ min 18.00/min 71289 211 08992 5 69.00 mm[Hg] - Sitting 145.00 mm[Hg] - Sitting 48862 211 56722 9 69.00 mm[Hg] - Sitting 145.00 mm[Hg] - Sitting 19608 211 10931 5 69.00 mm[Hg] - Sitting 145.00 mm[Hg] - Sitting 11442 211 06481 6 69.00 mm[Hg] - Sitting 57415 212 50957 7 59.00 mm[Hg] - Sitting 117.00 mm[Hg] - Sitting 98.20 Tympanic 81.00/ min 18.00/min 55672 212 67371 9 97.80 Tympanic 35010 212 30398 6 55.00 mm[Hg] - Sitting 109.00 mm[Hg] - Sitting 97.30 Tympanic 94.00 % 75.00/ min 18.00/min 58784 212 28563 5 68.00 mm[Hg] - Sitting 128.00 mm[Hg] - Sitting 97.80 Tympanic 80.00/ min 18.00/min 35850 212 31680 4 97.50 Tympanic 93458 212 03508 9 55571 212 01830 6 71.00 mm[Hg] - Sitting 117.00 mm[Hg] - Sitting
--- OUTSIDE RECORDS SUMMARY | 2024-04-10 03:21 | External Medical Summary | Continuity Of Care Document ---
Author Name Unknown Address [address] [address] Organization [facility] () Care Team Providers Care Manager Strategic Sourcing Name Role Phone DO Alonso Amy Primary Care Provider [phone] Allergies Allergy Reaction Start Date End Date [...] 3 0.1 mL 01/29 Inactiv e 2023 22300 94566 0 1 time Intrad ermal False Tubersol 5 tub. unit/0.1 mL intradermal injection solution [Tuberculin PPD] 0.1mL Intradermal 1 time For PPD 2nd Step Give 2nd Step PPD Day 1 and Read results Day 3 (schedule 7 days after 1st READ) 0.1mL 02/07 Active 2023 21125 86182 0 1 time Intrad ermal False Oxycodone 5 mg tablet [generic] 5mg By Mouth Every 4 hours as needed for severe pain for pain rate 7-10. For right pubis fracture 5mg 01/27 Inactiv e 2023 59909 08902 1 Every 4 hours as needed By Mouth False OXYCODONE 5 MG TABLET [GENERIC]IM MEDIATE RELEASE 2.5mg By Mouth Every 4 hours as needed tablet po for moderate pain, pain rate 4-6 on pain scale 1-10. For pain 2.5mg 01/27 Inactiv e 2023 Every 4 hours as needed By Mouth False Oxycodone 5 mg tablet [generic] 01/27 Inactiv e 2023 03758 61476 1 Oxycodone 5 mg tablet [generic] 5mg By Mouth Every 4 hours as needed for severe pain for pain rate 7-10. For right pubis fracture 5mg 01/29 Inactiv e 2023 55659 55770 1 Every 4 hours as needed By [...] For Muscle spasms 175mg 2023 Active 2023 50206 99611 1 Every 6 hours as needed By Mouth False Cephalexin 500 mg capsule [generic] 500mg By Mouth Every 8 hours For UTI 500mg 01/30 Inactiv e 2023 08926 02139 1 Every 8 hours By Mouth False Aspirin 81 mg chewable tablet [generic] 81 mg By Mouth Once daily For AAA 81 mg 2023 Active 2023 68482 16468 6 Once daily By Mouth False Colace 100 mg capsule 100mg By Mouth Twice daily For constipation 100mg 2023 Active 2023 79034 14619 1 Twice daily By Mouth False Enoxaparin 300 mg/3 mL subcutaneou s solution [generic] 20mg Subcutaneous Once daily For anticoag. 20mg 2023 Active 2023 42588 65252 1 Once daily Subcut aneous False Losartan 50 mg tablet [generic] 50 By Mouth Once daily For HTN 50 2023 Active 2023 33485 20972 9 Once daily By Mouth False Miralax 17 gram/dose oral powder 17 gram By Mouth Once daily For contispation 17 gram 2023 Active 2023 12667 03986 0 Once daily By Mouth False Senna 8.6 mg tablet 2 tabs By Mouth Once daily For constipation 2 tabs 2023 Active 2023 98605 86493 1 Once daily By Mouth False Simvastatin 20 mg tablet [generic] 20 mg By Mouth Once daily For Hyperlipidemi a 20 mg 2023 Active 2023 50446 08211 0 Once daily By Mouth False Spiriva with HandiHaler 18 mcg and inhalation capsules 1 capsule Inhalation Once daily For COPD 1 capsule 2023 Active 2023 16426 04854 1 Once daily Inhala tion False Ventolin HFA 90 mcg/actuati on aerosol inhaler 2 puff Inhalation Every 4 hours as needed For COPD 2 puff 2023 Active 2023 87504 14026 0 Every 4 hours as needed Inhala tion False ProSource No Carb 15 gram-60 kcal/30 mL oral liquid 30ml By Mouth Twice daily For Protien supplement 30ml 01/30 Inactiv e 2023 90469 31329 5 Twice daily By Mouth False Albuterol sulfate 2.5 mg/3 mL (0.083 %) solution for nebulizatio n [generic] 3 ml Inhalation Every 6 hours as needed For wheezing 3 ml 2023 Active 2023 09779 83349 3 Every 6 hours as needed Inhala tion False Acetaminoph en 325 mg tablet [generic] 650 mg By Mouth Every 6 hours For Mild Pain 650 mg 01/29 Inactiv e 2023 14143 38220 0 Every 6 hours By Mouth False Tylenol 325 mg tablet 2 tabs By Mouth Every 4 hours as needed For Pain DO NOT EXCEED 3000 MG APAP/24 Hours 2 tabs 2023 Active 2023 95936 04556 0 Every 4 hours as needed By Mouth False Tylenol 325 mg tablet 2 tabs By Mouth Every 4 hours as needed For Fever >100 DO NOT EXCEED 3000 MG APAP/24 Hours 2 tabs 2023 Active 2023 91385 79082 0 Every 4 hours as needed By Mouth False Dulcolax (bisacodyl) 10 mg rectal suppository One Suppository per rectum PRN if Milk of Magnisia ineffective. Give on day 5 of no BM 1 sup 2023 Active 2023 14530 97439 1 Daily as needed Rectal False Fleet Enema 19 gram-7 gram/118 mL Administer per rectum PRN one time if dulcolax suppository not effective. Give on day 6 of no BM 1 2023 Active 2023 94459 23203 6 Daily as needed Rectal False Milk of Magnesia 400 mg/5 mL oral suspension [Magnesium hydroxide] PRN 30ml By Mouth Daily as needed for constipation one time daily if no BM, on day 4 of no BM (PRN refer to instructions) For Constipation 30 mL 2023 Active 2023 88710 04976 6 Daily as needed By Mouth False Oxycodone 5 mg tablet [generic] 01/29 Inactiv e 2023 16818 89569 1 Oxycodone 5 mg tablet [generic] 5mg By Mouth Every 4 hours as needed for severe pain for pain rate 7-10. For right pubis fracture 5mg 01/31 Inactiv e 2023 64292 67271 1 Every 4 hours as needed By Mouth False Cymbalta 30 mg capsule,del ayed release 30 mg By Mouth Once daily For Depression 30 mg 2023 Active 2023 42160 44262 0 Once daily By Mouth False Acetaminoph en 500 mg tablet [generic] 1000 mg By Mouth Twice daily not to exceed 3gm APAP in 24 hours For Pain 1000 mg 2023 Active 2023 89721 36214 8 Twice daily By Mouth False Healthshake 118 ml BID 118 ml By Mouth Twice daily Healthshake 118 ml BID For MNA of 7 - malnourished - please record total ml consumed 118 ml 2023 Active 2023 Twice daily By Mouth False Oxycodone 5 mg tablet [generic] 01/31 Inactiv e 2023 69605 94680 1 Oxycodone 5 mg tablet [generic] 5mg By Mouth Every 4 hours as needed for severe pain for pain rate 7-10. For right pubis fracture 5mg 2023 Active 2023 18062 13112 1 Every 4 hours as needed By [...] Temperature SpO2 Blood Sugar Pulse Respirations 210 44385 7 78.00 mm[Hg] - Lying Down 186.00 mm[Hg] - Lying Down 109.80 NI 97.90 Forehead Scan 91.00 % 92.00/ min 18.00/min 210 87828 1 74.00 mm[Hg] - Lying Down 147.00 mm[Hg] - Lying Down 85.00/ min 211 09191 2 72.00 mm[Hg] - Sitting 138.00 mm[Hg] - Sitting 98.40 Tympanic 86.00/ min 18.00/min 211 16424 2 59.00 mm[Hg] - Sitting 117.00 mm[Hg] - Sitting 98.20 Tympanic 99.00 % 81.00/ min 18.00/min 211 87967 5 69.00 mm[Hg] - Sitting 145.00 mm[Hg] - Sitting 211 29499 9 69.00 mm[Hg] - Sitting 145.00 mm[Hg] - Sitting 211 58343 5 69.00 mm[Hg] - Sitting 145.00 mm[Hg] - Sitting 211 46646 6 69.00 mm[Hg] - Sitting 212 49681 7 59.00 mm[Hg] - Sitting 117.00 mm[Hg] - Sitting 98.20 Tympanic 81.00/ min 18.00/min 31465 212 65310 9 97.80 Tympanic 212 32935 6 55.00 mm[Hg] - Sitting 109.00 mm[Hg] - Sitting 97.30 Tympanic 94.00 % 75.00/ min 18.00/min 74413 212 17637 5 68.00 mm[Hg] - Sitting 128.00 mm[Hg] - Sitting 97.80 Tympanic 80.00/ min 18.00/min 50305 212 53022 4 97.50 Tympanic 49281 212 75136 9 83313 212 13591 6 71.00 mm[Hg] - Sitting 117.00 mm[Hg] - Sitting 213 13596 0 60.00 mm[Hg] - Sitting 116.00 mm[Hg] - Sitting 98.40 Forehead Scan 94.00 % 72.00/ min 16.00/min 213 52567 7 70.00 mm[Hg] - Sitting 118.00 mm[Hg] - Sitting 98.00 Tympanic 82.00/ min 18.00/min 58154 213 76453 3 97.90 Tympanic 00077 213 42817 5 73.00 mm[Hg] - Lying Down 127.00 mm[Hg] - Lying Down 36384 213 69629 3 05484 214 29567 1 62.00 mm[Hg] - Sitting 127.00 mm[Hg] - Sitting 97.80 Tympanic 94.00 % 72.00/ min 16.00/min 62282 214 92897 4 59.00 mm[Hg] - Lying Down 113.00 mm[Hg] - Lying Down
--- OUTSIDE RECORDS SUMMARY | 2024-04-10 03:21 | External Medical Summary | Continuity Of Care Document ---
Author Name Unknown Address [address] [address] Organization [facility] () Care Team Providers Care Rubber Splicer Name Role Phone DO Alonso Amy Primary Care Provider [phone] Allergies Allergy Reaction Start Date End Date [...] 3 0.1 mL 01/29 Inactiv e 2023 38586 91344 0 1 time Intrad ermal False Tubersol 5 tub. unit/0.1 mL intradermal injection solution [Tuberculin PPD] 0.1mL Intradermal 1 time For PPD 2nd Step Give 2nd Step PPD Day 1 and Read results Day 3 (schedule 7 days after 1st READ) 0.1mL 02/07 Active 2023 45315 89229 0 1 time Intrad ermal False Oxycodone 5 mg tablet [generic] 5mg By Mouth Every 4 hours as needed for severe pain for pain rate 7-10. For right pubis fracture 5mg 01/27 Inactiv e 2023 60223 28729 1 Every 4 hours as needed By Mouth False OXYCODONE 5 MG TABLET [GENERIC]IM MEDIATE RELEASE 2.5mg By Mouth Every 4 hours as needed tablet po for moderate pain, pain rate 4-6 on pain scale 1-10. For pain 2.5mg 01/27 Inactiv e 2023 Every 4 hours as needed By Mouth False Oxycodone 5 mg tablet [generic] 01/27 Inactiv e 2023 34815 71368 1 Oxycodone 5 mg tablet [generic] 5mg By Mouth Every 4 hours as needed for severe pain for pain rate 7-10. For right pubis fracture 5mg 01/29 Inactiv e 2023 58877 94645 1 Every 4 hours as needed By [...] For Muscle spasms 175mg 2023 Active 2023 66262 94997 1 Every 6 hours as needed By Mouth False Cephalexin 500 mg capsule [generic] 500mg By Mouth Every 8 hours For UTI 500mg 01/30 Inactiv e 2023 56480 68082 1 Every 8 hours By Mouth False Aspirin 81 mg chewable tablet [generic] 81 mg By Mouth Once daily For AAA 81 mg 2023 Active 2023 35983 17128 6 Once daily By Mouth False Colace 100 mg capsule 100mg By Mouth Twice daily For constipation 100mg 2023 Active 2023 79630 57476 1 Twice daily By Mouth False Enoxaparin 300 mg/3 mL subcutaneou s solution [generic] 20mg Subcutaneous Once daily For anticoag. 20mg 2023 Active 2023 75822 48878 1 Once daily Subcut aneous False Losartan 50 mg tablet [generic] 50 By Mouth Once daily For HTN 50 2023 Active 2023 01487 58485 9 Once daily By Mouth False Miralax 17 gram/dose oral powder 17 gram By Mouth Once daily For contispation 17 gram 2023 Active 2023 09404 11707 0 Once daily By Mouth False Senna 8.6 mg tablet 2 tabs By Mouth Once daily For constipation 2 tabs 2023 Active 2023 81383 85187 1 Once daily By Mouth False Simvastatin 20 mg tablet [generic] 20 mg By Mouth Once daily For Hyperlipidemi a 20 mg 2023 Active 2023 80545 06042 0 Once daily By Mouth False Spiriva with HandiHaler 18 mcg and inhalation capsules 1 capsule Inhalation Once daily For COPD 1 capsule 2023 Active 2023 65632 33574 1 Once daily Inhala tion False Ventolin HFA 90 mcg/actuati on aerosol inhaler 2 puff Inhalation Every 4 hours as needed For COPD 2 puff 2023 Active 2023 21265 13497 0 Every 4 hours as needed Inhala tion False ProSource No Carb 15 gram-60 kcal/30 mL oral liquid 30ml By Mouth Twice daily For Protien supplement 30ml 01/30 Inactiv e 2023 35360 24660 5 Twice daily By Mouth False Albuterol sulfate 2.5 mg/3 mL (0.083 %) solution for nebulizatio n [generic] 3 ml Inhalation Every 6 hours as needed For wheezing 3 ml 2023 Active 2023 14036 87450 3 Every 6 hours as needed Inhala tion False Acetaminoph en 325 mg tablet [generic] 650 mg By Mouth Every 6 hours For Mild Pain 650 mg 01/29 Inactiv e 2023 37407 32115 0 Every 6 hours By Mouth False Tylenol 325 mg tablet 2 tabs By Mouth Every 4 hours as needed For Pain DO NOT EXCEED 3000 MG APAP/24 Hours 2 tabs 2023 Active 2023 85388 88534 0 Every 4 hours as needed By Mouth False Tylenol 325 mg tablet 2 tabs By Mouth Every 4 hours as needed For Fever >100 DO NOT EXCEED 3000 MG APAP/24 Hours 2 tabs 2023 Active 2023 59992 17339 0 Every 4 hours as needed By Mouth False Dulcolax (bisacodyl) 10 mg rectal suppository One Suppository per rectum PRN if Milk of Magnisia ineffective. Give on day 5 of no BM 1 sup 2023 Active 2023 48198 53894 1 Daily as needed Rectal False Fleet Enema 19 gram-7 gram/118 mL Administer per rectum PRN one time if dulcolax suppository not effective. Give on day 6 of no BM 1 2023 Active 2023 88441 86272 6 Daily as needed Rectal False Milk of Magnesia 400 mg/5 mL oral suspension [Magnesium hydroxide] PRN 30ml By Mouth Daily as needed for constipation one time daily if no BM, on day 4 of no BM (PRN refer to instructions) For Constipation 30 mL 2023 Active 2023 60823 06864 6 Daily as needed By Mouth False Oxycodone 5 mg tablet [generic] 01/29 Inactiv e 2023 95584 59551 1 Oxycodone 5 mg tablet [generic] 5mg By Mouth Every 4 hours as needed for severe pain for pain rate 7-10. For right pubis fracture 5mg 01/31 Inactiv e 2023 94669 17464 1 Every 4 hours as needed By Mouth False Cymbalta 30 mg capsule,del ayed release 30 mg By Mouth Once daily For Depression 30 mg 2023 Active 2023 77013 61354 0 Once daily By Mouth False Acetaminoph en 500 mg tablet [generic] 1000 mg By Mouth Twice daily not to exceed 3gm APAP in 24 hours For Pain 1000 mg 2023 Active 2023 31277 68114 8 Twice daily By Mouth False Healthshake 118 ml BID 118 ml By Mouth Twice daily Healthshake 118 ml BID For MNA of 7 - malnourished - please record total ml consumed 118 ml 2023 Active 2023 Twice daily By Mouth False Oxycodone 5 mg tablet [generic] 01/31 Inactiv e 2023 15990 82025 1 Oxycodone 5 mg tablet [generic] 5mg By Mouth Every 4 hours as needed for severe pain for pain rate 7-10. For right pubis fracture 5mg 2023 Active 2023 34941 30682 1 Every 4 hours as needed By [...] Temperature SpO2 Blood Sugar Pulse Respirations 210 36271 7 78.00 mm[Hg] - Lying Down 186.00 mm[Hg] - Lying Down 109.80 NI 97.90 Forehead Scan 91.00 % 92.00/ min 18.00/min 210 06111 1 74.00 mm[Hg] - Lying Down 147.00 mm[Hg] - Lying Down 85.00/ min 211 29111 2 72.00 mm[Hg] - Sitting 138.00 mm[Hg] - Sitting 98.40 Tympanic 86.00/ min 18.00/min 211 25984 2 59.00 mm[Hg] - Sitting 117.00 mm[Hg] - Sitting 98.20 Tympanic 99.00 % 81.00/ min 18.00/min 211 92259 5 69.00 mm[Hg] - Sitting 145.00 mm[Hg] - Sitting 211 36840 9 69.00 mm[Hg] - Sitting 145.00 mm[Hg] - Sitting 211 81304 5 69.00 mm[Hg] - Sitting 145.00 mm[Hg] - Sitting 211 53875 6 69.00 mm[Hg] - Sitting 212 05797 7 59.00 mm[Hg] - Sitting 117.00 mm[Hg] - Sitting 98.20 Tympanic 81.00/ min 18.00/min 58531 212 35721 9 97.80 Tympanic 212 59964 6 55.00 mm[Hg] - Sitting 109.00 mm[Hg] - Sitting 97.30 Tympanic 94.00 % 75.00/ min 18.00/min 38324 212 14342 5 68.00 mm[Hg] - Sitting 128.00 mm[Hg] - Sitting 97.80 Tympanic 80.00/ min 18.00/min 66450 212 65944 4 97.50 Tympanic 59333 212 90549 9 07374 212 23825 6 71.00 mm[Hg] - Sitting 117.00 mm[Hg] - Sitting 213 27654 0 60.00 mm[Hg] - Sitting 116.00 mm[Hg] - Sitting 98.40 Forehead Scan 94.00 % 72.00/ min 16.00/min 213 96094 7 70.00 mm[Hg] - Sitting 118.00 mm[Hg] - Sitting 98.00 Tympanic 82.00/ min 18.00/min 80074 213 34721 3 97.90 Tympanic 67563 213 31313 5 73.00 mm[Hg] - Lying Down 127.00 mm[Hg] - Lying Down 25755 213 74833 3 25621 214 73162 4 59.00 mm[Hg] - Lying Down 113.00 mm[Hg] - Lying Down
--- OUTSIDE RECORDS SUMMARY | 2024-04-10 03:22 | External Medical Summary | Continuity Of Care Document ---
Author Name Unknown Address [address] [address] Organization [facility] () Care Team Providers Care Print Shop Helper Name Role Phone DO Alonso Amy Primary Care Provider [phone] Allergies Allergy Reaction Start Date End Date [...] 3 0.1 mL 01/29 Inactiv e 2023 57607 29397 0 1 time Intrad ermal False Tubersol 5 tub. unit/0.1 mL intradermal injection solution [Tuberculin PPD] 0.1mL Intradermal 1 time For PPD 2nd Step Give 2nd Step PPD Day 1 and Read results Day 3 (schedule 7 days after 1st READ) 0.1mL 02/07 Active 2023 55861 65528 0 1 time Intrad ermal False Oxycodone 5 mg tablet [generic] 5mg By Mouth Every 4 hours as needed for severe pain for pain rate 7-10. For right pubis fracture 5mg 01/27 Inactiv e 2023 04462 48827 1 Every 4 hours as needed By Mouth False OXYCODONE 5 MG TABLET [GENERIC]IM MEDIATE RELEASE 2.5mg By Mouth Every 4 hours as needed tablet po for moderate pain, pain rate 4-6 on pain scale 1-10. For pain 2.5mg 01/27 Inactiv e 2023 Every 4 hours as needed By Mouth False Oxycodone 5 mg tablet [generic] 01/27 Inactiv e 2023 98013 25836 1 Oxycodone 5 mg tablet [generic] 5mg By Mouth Every 4 hours as needed for severe pain for pain rate 7-10. For right pubis fracture 5mg 01/29 Inactiv e 2023 60690 47559 1 Every 4 hours as needed By [...] For Muscle spasms 175mg 2023 Active 2023 65645 62241 1 Every 6 hours as needed By Mouth False Cephalexin 500 mg capsule [generic] 500mg By Mouth Every 8 hours For UTI 500mg 01/30 Active 2023 83720 63104 1 Every 8 hours By Mouth False Aspirin 81 mg chewable tablet [generic] 81 mg By Mouth Once daily For AAA 81 mg 2023 Active 2023 99475 27991 6 Once daily By Mouth False Colace 100 mg capsule 100mg By Mouth Twice daily For constipation 100mg 2023 Active 2023 31506 50560 1 Twice daily By Mouth False Enoxaparin 300 mg/3 mL subcutaneou s solution [generic] 20mg Subcutaneous Once daily For anticoag. 20mg 2023 Active 2023 77198 54875 1 Once daily Subcut aneous False Losartan 50 mg tablet [generic] 50 By Mouth Once daily For HTN 50 2023 Active 2023 58225 69264 9 Once daily By Mouth False Miralax 17 gram/dose oral powder 17 gram By Mouth Once daily For contispation 17 gram 2023 Active 2023 74602 40474 0 Once daily By Mouth False Senna 8.6 mg tablet 2 tabs By Mouth Once daily For constipation 2 tabs 2023 Active 2023 50062 04206 1 Once daily By Mouth False Simvastatin 20 mg tablet [generic] 20 mg By Mouth Once daily For Hyperlipidemi a 20 mg 2023 Active 2023 40181 98101 0 Once daily By Mouth False Spiriva with HandiHaler 18 mcg and inhalation capsules 1 capsule Inhalation Once daily For COPD 1 capsule 2023 Active 2023 31740 74766 1 Once daily Inhala tion False Ventolin HFA 90 mcg/actuati on aerosol inhaler 2 puff Inhalation Every 4 hours as needed For COPD 2 puff 2023 Active 2023 98261 04340 0 Every 4 hours as needed Inhala tion False ProSource No Carb 15 gram-60 kcal/30 mL oral liquid 30ml By Mouth Twice daily For Protien supplement 30ml 2023 Active 2023 74209 49317 5 Twice daily By Mouth False Albuterol sulfate 2.5 mg/3 mL (0.083 %) solution for nebulizatio n [generic] 3 ml Inhalation Every 6 hours as needed For wheezing 3 ml 2023 Active 2023 11993 71410 3 Every 6 hours as needed Inhala tion False Acetaminoph en 325 mg tablet [generic] 650 mg By Mouth Every 6 hours For Mild Pain 650 mg 2023 Active 2023 14282 65194 0 Every 6 hours By Mouth False Tylenol 325 mg tablet 2 tabs By Mouth Every 4 hours as needed For Pain DO NOT EXCEED 3000 MG APAP/24 Hours 2 tabs 2023 Active 2023 60997 14359 0 Every 4 hours as needed By Mouth False Tylenol 325 mg tablet 2 tabs By Mouth Every 4 hours as needed For Fever >100 DO NOT EXCEED 3000 MG APAP/24 Hours 2 tabs 2023 Active 2023 49163 79161 0 Every 4 hours as needed By Mouth False Dulcolax (bisacodyl) 10 mg rectal suppository One Suppository per rectum PRN if Milk of Magnisia ineffective. Give on day 5 of no BM 1 sup 2023 Active 2023 88318 77930 1 Daily as needed Rectal False Fleet Enema 19 gram-7 gram/118 mL Administer per rectum PRN one time if dulcolax suppository not effective. Give on day 6 of no BM 1 2023 Active 2023 09290 95837 6 Daily as needed Rectal False Milk of Magnesia 400 mg/5 mL oral suspension [Magnesium hydroxide] PRN 30ml By Mouth Daily as needed for constipation one time daily if no BM, on day 4 of no BM (PRN refer to instructions) For Constipation 30 mL 2023 Active 2023 64336 32356 6 Daily as needed By Mouth False Oxycodone 5 mg tablet [generic] 01/29 Inactiv e 2023 97389 21190 1 Oxycodone 5 mg tablet [generic] 5mg By Mouth Every 4 hours as needed for severe pain for pain rate 7-10. For right pubis fracture 5mg 2023 Active 2023 27107 59039 1 Every 4 hours as needed By [...] weight Temperature SpO2 Blood Sugar Pulse Respirations 77196 7 78.00 mm[Hg] - Lying Down 186.00 mm[Hg] - Lying Down 109.80 NI 97.90 Forehead Scan 91.00 % 92.00/ min 18.00/min 210 50473 1 74.00 mm[Hg] - Lying Down 147.00 mm[Hg] - Lying Down 85.00/ min 211 30154 2 72.00 mm[Hg] - Sitting 138.00 mm[Hg] - Sitting 98.40 Tympanic 86.00/ min 18.00/min 211 79025 2 59.00 mm[Hg] - Sitting 117.00 mm[Hg] - Sitting 98.20 Tympanic 99.00 % 81.00/ min 18.00/min 211 43303 5 69.00 mm[Hg] - Sitting 145.00 mm[Hg] - Sitting 211 10330 9 69.00 mm[Hg] - Sitting 145.00 mm[Hg] - Sitting 211 70626 5 69.00 mm[Hg] - Sitting 145.00 mm[Hg] - Sitting 211 91306 6 69.00 mm[Hg] - Sitting 212 47975 7 59.00 mm[Hg] - Sitting 117.00 mm[Hg] - Sitting 98.20 Tympanic 81.00/ min 18.00/min 77242 212 43711 9 97.80 Tympanic 11474 212 74674 6 55.00 mm[Hg] - Sitting 109.00 mm[Hg] - Sitting 97.30 Tympanic 94.00 % 75.00/ min 18.00/min 76059 212 90199 5 68.00 mm[Hg] - Sitting 128.00 mm[Hg] - Sitting 97.80 Tympanic 80.00/ min 18.00/min 93614 212 33573 4 97.50 Tympanic 40105 212 81418 9 56765 212 06466 6 71.00 mm[Hg] - Sitting 117.00 mm[Hg] - Sitting
--- OUTSIDE RECORDS SUMMARY | 2024-04-10 03:22 | External Medical Summary | Continuity Of Care Document ---
Author Name Unknown Address [address] [address] Organization [facility] () Care Team Providers Care Sound Designer Name Role Phone DO Alonso Amy Primary Care Provider [phone] Allergies Allergy Reaction Start Date End Date [...] 3 0.1 mL 01/29 Inactiv e 2023 42254 15194 0 1 time Intrad ermal False Tubersol 5 tub. unit/0.1 mL intradermal injection solution [Tuberculin PPD] 0.1mL Intradermal 1 time For PPD 2nd Step Give 2nd Step PPD Day 1 and Read results Day 3 (schedule 7 days after 1st READ) 0.1mL 02/07 Active 2023 37660 52522 0 1 time Intrad ermal False Oxycodone 5 mg tablet [generic] 5mg By Mouth Every 4 hours as needed for severe pain for pain rate 7-10. For right pubis fracture 5mg 01/27 Inactiv e 2023 91359 91743 1 Every 4 hours as needed By Mouth False OXYCODONE 5 MG TABLET [GENERIC]IM MEDIATE RELEASE 2.5mg By Mouth Every 4 hours as needed tablet po for moderate pain, pain rate 4-6 on pain scale 1-10. For pain 2.5mg 01/27 Inactiv e 2023 Every 4 hours as needed By Mouth False Oxycodone 5 mg tablet [generic] 01/27 Inactiv e 2023 92514 39192 1 Oxycodone 5 mg tablet [generic] 5mg By Mouth Every 4 hours as needed for severe pain for pain rate 7-10. For right pubis fracture 5mg 01/29 Inactiv e 2023 86778 79050 1 Every 4 hours as needed By [...] For Muscle spasms 175mg 2023 Active 2023 94234 53824 1 Every 6 hours as needed By Mouth False Cephalexin 500 mg capsule [generic] 500mg By Mouth Every 8 hours For UTI 500mg 01/30 Active 2023 64101 15514 1 Every 8 hours By Mouth False Aspirin 81 mg chewable tablet [generic] 81 mg By Mouth Once daily For AAA 81 mg 2023 Active 2023 03311 99944 6 Once daily By Mouth False Colace 100 mg capsule 100mg By Mouth Twice daily For constipation 100mg 2023 Active 2023 44627 57019 1 Twice daily By Mouth False Enoxaparin 300 mg/3 mL subcutaneou s solution [generic] 20mg Subcutaneous Once daily For anticoag. 20mg 2023 Active 2023 08947 34032 1 Once daily Subcut aneous False Losartan 50 mg tablet [generic] 50 By Mouth Once daily For HTN 50 2023 Active 2023 12963 07208 9 Once daily By Mouth False Miralax 17 gram/dose oral powder 17 gram By Mouth Once daily For contispation 17 gram 2023 Active 2023 79929 71210 0 Once daily By Mouth False Senna 8.6 mg tablet 2 tabs By Mouth Once daily For constipation 2 tabs 2023 Active 2023 91613 98753 1 Once daily By Mouth False Simvastatin 20 mg tablet [generic] 20 mg By Mouth Once daily For Hyperlipidemi a 20 mg 2023 Active 2023 12448 61925 0 Once daily By Mouth False Spiriva with HandiHaler 18 mcg and inhalation capsules 1 capsule Inhalation Once daily For COPD 1 capsule 2023 Active 2023 31410 27502 1 Once daily Inhala tion False Ventolin HFA 90 mcg/actuati on aerosol inhaler 2 puff Inhalation Every 4 hours as needed For COPD 2 puff 2023 Active 2023 98946 32428 0 Every 4 hours as needed Inhala tion False ProSource No Carb 15 gram-60 kcal/30 mL oral liquid 30ml By Mouth Twice daily For Protien supplement 30ml 2023 Active 2023 30674 95806 5 Twice daily By Mouth False Albuterol sulfate 2.5 mg/3 mL (0.083 %) solution for nebulizatio n [generic] 3 ml Inhalation Every 6 hours as needed For wheezing 3 ml 2023 Active 2023 62017 84562 3 Every 6 hours as needed Inhala tion False Acetaminoph en 325 mg tablet [generic] 650 mg By Mouth Every 6 hours For Mild Pain 650 mg 2023 Active 2023 87611 07494 0 Every 6 hours By Mouth False Tylenol 325 mg tablet 2 tabs By Mouth Every 4 hours as needed For Pain DO NOT EXCEED 3000 MG APAP/24 Hours 2 tabs 2023 Active 2023 97263 23472 0 Every 4 hours as needed By Mouth False Tylenol 325 mg tablet 2 tabs By Mouth Every 4 hours as needed For Fever >100 DO NOT EXCEED 3000 MG APAP/24 Hours 2 tabs 2023 Active 2023 81943 37554 0 Every 4 hours as needed By Mouth False Dulcolax (bisacodyl) 10 mg rectal suppository One Suppository per rectum PRN if Milk of Magnisia ineffective. Give on day 5 of no BM 1 sup 2023 Active 2023 01390 02349 1 Daily as needed Rectal False Fleet Enema 19 gram-7 gram/118 mL Administer per rectum PRN one time if dulcolax suppository not effective. Give on day 6 of no BM 1 2023 Active 2023 17813 03412 6 Daily as needed Rectal False Milk of Magnesia 400 mg/5 mL oral suspension [Magnesium hydroxide] PRN 30ml By Mouth Daily as needed for constipation one time daily if no BM, on day 4 of no BM (PRN refer to instructions) For Constipation 30 mL 2023 Active 2023 98159 04965 6 Daily as needed By Mouth False Oxycodone 5 mg tablet [generic] 01/29 Inactiv e 2023 12380 71121 1 Oxycodone 5 mg tablet [generic] 5mg By Mouth Every 4 hours as needed for severe pain for pain rate 7-10. For right pubis fracture 5mg 2023 Active 2023 01724 81581 1 Every 4 hours as needed By [...] weight Temperature SpO2 Blood Sugar Pulse Respirations 69874 7 78.00 mm[Hg] - Lying Down 186.00 mm[Hg] - Lying Down 109.80 NI 97.90 Forehead Scan 91.00 % 92.00/ min 18.00/min 210 57489 1 74.00 mm[Hg] - Lying Down 147.00 mm[Hg] - Lying Down 85.00/ min 211 96056 2 72.00 mm[Hg] - Sitting 138.00 mm[Hg] - Sitting 98.40 Tympanic 86.00/ min 18.00/min 211 23404 2 59.00 mm[Hg] - Sitting 117.00 mm[Hg] - Sitting 98.20 Tympanic 99.00 % 81.00/ min 18.00/min 211 57247 5 69.00 mm[Hg] - Sitting 145.00 mm[Hg] - Sitting 211 44255 9 69.00 mm[Hg] - Sitting 145.00 mm[Hg] - Sitting 211 52402 5 69.00 mm[Hg] - Sitting 145.00 mm[Hg] - Sitting 211 12179 6 69.00 mm[Hg] - Sitting 212 29180 7 59.00 mm[Hg] - Sitting 117.00 mm[Hg] - Sitting 98.20 Tympanic 81.00/ min 18.00/min 64514 212 14215 9 212 95533 6 71.00 mm[Hg] - Sitting 117.00 mm[Hg] - Sitting
--- OUTSIDE RECORDS SUMMARY | 2024-04-10 03:22 | External Medical Summary | Continuity Of Care Document ---
Author Name Unknown Address [address] [address] Organization [facility] () Care Team Providers Care Advertising Designer Name Role Phone DO Alonso Amy Primary Care Provider [phone] Allergies Allergy Reaction Start Date End Date [...] 3 0.1 mL 01/29 Inactiv e 2023 35636 74546 0 1 time Intrad ermal False Tubersol 5 tub. unit/0.1 mL intradermal injection solution [Tuberculin PPD] 0.1mL Intradermal 1 time For PPD 2nd Step Give 2nd Step PPD Day 1 and Read results Day 3 (schedule 7 days after 1st READ) 0.1mL 02/07 Active 2023 52158 53551 0 1 time Intrad ermal False Oxycodone 5 mg tablet [generic] 5mg By Mouth Every 4 hours as needed for severe pain for pain rate 7-10. For right pubis fracture 5mg 01/27 Inactiv e 2023 54946 41462 1 Every 4 hours as needed By Mouth False OXYCODONE 5 MG TABLET [GENERIC]IM MEDIATE RELEASE 2.5mg By Mouth Every 4 hours as needed tablet po for moderate pain, pain rate 4-6 on pain scale 1-10. For pain 2.5mg 01/27 Inactiv e 2023 Every 4 hours as needed By Mouth False Oxycodone 5 mg tablet [generic] 01/27 Inactiv e 2023 13209 73750 1 Oxycodone 5 mg tablet [generic] 5mg By Mouth Every 4 hours as needed for severe pain for pain rate 7-10. For right pubis fracture 5mg 01/29 Inactiv e 2023 18975 05219 1 Every 4 hours as needed By [...] For Muscle spasms 175mg 2023 Active 2023 53760 79984 1 Every 6 hours as needed By Mouth False Cephalexin 500 mg capsule [generic] 500mg By Mouth Every 8 hours For UTI 500mg 01/30 Active 2023 79693 77184 1 Every 8 hours By Mouth False Aspirin 81 mg chewable tablet [generic] 81 mg By Mouth Once daily For AAA 81 mg 2023 Active 2023 59093 91057 6 Once daily By Mouth False Colace 100 mg capsule 100mg By Mouth Twice daily For constipation 100mg 2023 Active 2023 67868 56363 1 Twice daily By Mouth False Enoxaparin 300 mg/3 mL subcutaneou s solution [generic] 20mg Subcutaneous Once daily For anticoag. 20mg 2023 Active 2023 27139 67054 1 Once daily Subcut aneous False Losartan 50 mg tablet [generic] 50 By Mouth Once daily For HTN 50 2023 Active 2023 69784 29365 9 Once daily By Mouth False Miralax 17 gram/dose oral powder 17 gram By Mouth Once daily For contispation 17 gram 2023 Active 2023 72647 93703 0 Once daily By Mouth False Senna 8.6 mg tablet 2 tabs By Mouth Once daily For constipation 2 tabs 2023 Active 2023 54749 79628 1 Once daily By Mouth False Simvastatin 20 mg tablet [generic] 20 mg By Mouth Once daily For Hyperlipidemi a 20 mg 2023 Active 2023 79251 08791 0 Once daily By Mouth False Spiriva with HandiHaler 18 mcg and inhalation capsules 1 capsule Inhalation Once daily For COPD 1 capsule 2023 Active 2023 74803 81098 1 Once daily Inhala tion False Ventolin HFA 90 mcg/actuati on aerosol inhaler 2 puff Inhalation Every 4 hours as needed For COPD 2 puff 2023 Active 2023 67755 89011 0 Every 4 hours as needed Inhala tion False ProSource No Carb 15 gram-60 kcal/30 mL oral liquid 30ml By Mouth Twice daily For Protien supplement 30ml 2023 Active 2023 58554 41298 5 Twice daily By Mouth False Albuterol sulfate 2.5 mg/3 mL (0.083 %) solution for nebulizatio n [generic] 3 ml Inhalation Every 6 hours as needed For wheezing 3 ml 2023 Active 2023 81958 03376 3 Every 6 hours as needed Inhala tion False Acetaminoph en 325 mg tablet [generic] 650 mg By Mouth Every 6 hours For Mild Pain 650 mg 2023 Active 2023 13578 53994 0 Every 6 hours By Mouth False Tylenol 325 mg tablet 2 tabs By Mouth Every 4 hours as needed For Pain DO NOT EXCEED 3000 MG APAP/24 Hours 2 tabs 2023 Active 2023 17549 60834 0 Every 4 hours as needed By Mouth False Tylenol 325 mg tablet 2 tabs By Mouth Every 4 hours as needed For Fever >100 DO NOT EXCEED 3000 MG APAP/24 Hours 2 tabs 2023 Active 2023 04774 64400 0 Every 4 hours as needed By Mouth False Dulcolax (bisacodyl) 10 mg rectal suppository One Suppository per rectum PRN if Milk of Magnisia ineffective. Give on day 5 of no BM 1 sup 2023 Active 2023 76641 62597 1 Daily as needed Rectal False Fleet Enema 19 gram-7 gram/118 mL Administer per rectum PRN one time if dulcolax suppository not effective. Give on day 6 of no BM 1 2023 Active 2023 17538 66920 6 Daily as needed Rectal False Milk of Magnesia 400 mg/5 mL oral suspension [Magnesium hydroxide] PRN 30ml By Mouth Daily as needed for constipation one time daily if no BM, on day 4 of no BM (PRN refer to instructions) For Constipation 30 mL 2023 Active 2023 95155 11748 6 Daily as needed By Mouth False Oxycodone 5 mg tablet [generic] 01/29 Inactiv e 2023 44361 68263 1 Oxycodone 5 mg tablet [generic] 5mg By Mouth Every 4 hours as needed for severe pain for pain rate 7-10. For right pubis fracture 5mg 2023 Active 2023 11687 44820 1 Every 4 hours as needed By [...] weight Temperature SpO2 Blood Sugar Pulse Respirations 47743 7 78.00 mm[Hg] - Lying Down 186.00 mm[Hg] - Lying Down 109.80 NI 97.90 Forehead Scan 91.00 % 92.00/ min 18.00/min 210 61075 1 74.00 mm[Hg] - Lying Down 147.00 mm[Hg] - Lying Down 85.00/ min 211 43267 2 72.00 mm[Hg] - Sitting 138.00 mm[Hg] - Sitting 98.40 Tympanic 86.00/ min 18.00/min 211 80448 2 59.00 mm[Hg] - Sitting 117.00 mm[Hg] - Sitting 98.20 Tympanic 99.00 % 81.00/ min 18.00/min 211 04055 5 69.00 mm[Hg] - Sitting 145.00 mm[Hg] - Sitting 211 41892 9 69.00 mm[Hg] - Sitting 145.00 mm[Hg] - Sitting 211 99117 5 69.00 mm[Hg] - Sitting 145.00 mm[Hg] - Sitting 211 19183 6 69.00 mm[Hg] - Sitting 212 04604 7 59.00 mm[Hg] - Sitting 117.00 mm[Hg] - Sitting 98.20 Tympanic 81.00/ min 18.00/min 38971 212 46020 9 212 97614 6 71.00 mm[Hg] - Sitting 117.00 mm[Hg] - Sitting
--- OUTSIDE RECORDS SUMMARY | 2024-04-10 03:22 | External Medical Summary | Continuity Of Care Document ---
Author Name Unknown Address [address] [address] Organization [facility] () Care Team Providers Care Crm Manager Name Role Phone DO Alonso Amy Primary Care Provider [phone] Allergies Allergy Reaction Start Date End Date [...] 3 0.1 mL 01/29 Inactiv e 2023 12806 18052 0 1 time Intrad ermal False Tubersol 5 tub. unit/0.1 mL intradermal injection solution [Tuberculin PPD] 0.1mL Intradermal 1 time For PPD 2nd Step Give 2nd Step PPD Day 1 and Read results Day 3 (schedule 7 days after 1st READ) 0.1mL 02/07 Active 2023 37104 23308 0 1 time Intrad ermal False Oxycodone 5 mg tablet [generic] 5mg By Mouth Every 4 hours as needed for severe pain for pain rate 7-10. For right pubis fracture 5mg 01/27 Inactiv e 2023 39607 01979 1 Every 4 hours as needed By Mouth False OXYCODONE 5 MG TABLET [GENERIC]IM MEDIATE RELEASE 2.5mg By Mouth Every 4 hours as needed tablet po for moderate pain, pain rate 4-6 on pain scale 1-10. For pain 2.5mg 01/27 Inactiv e 2023 Every 4 hours as needed By Mouth False Oxycodone 5 mg tablet [generic] 01/27 Inactiv e 2023 64852 88917 1 Oxycodone 5 mg tablet [generic] 5mg By Mouth Every 4 hours as needed for severe pain for pain rate 7-10. For right pubis fracture 5mg 2023 Active 2023 75481 26654 1 Every 4 hours as needed By [...] For Muscle spasms 175mg 2023 Active 2023 86026 20085 1 Every 6 hours as needed By Mouth False Cephalexin 500 mg capsule [generic] 500mg By Mouth Every 8 hours For UTI 500mg 01/30 Active 2023 59156 14224 1 Every 8 hours By Mouth False Aspirin 81 mg chewable tablet [generic] 81 mg By Mouth Once daily For AAA 81 mg 2023 Active 2023 44412 95560 6 Once daily By Mouth False Colace 100 mg capsule 100mg By Mouth Twice daily For constipation 100mg 2023 Active 2023 15693 83259 1 Twice daily By Mouth False Enoxaparin 300 mg/3 mL subcutaneou s solution [generic] 20mg Subcutaneous Once daily For anticoag. 20mg 2023 Active 2023 61700 72176 1 Once daily Subcut aneous False Losartan 50 mg tablet [generic] 50 By Mouth Once daily For HTN 50 2023 Active 2023 21552 70322 9 Once daily By Mouth False Miralax 17 gram/dose oral powder 17 gram By Mouth Once daily For contispation 17 gram 2023 Active 2023 85232 18880 0 Once daily By Mouth False Senna 8.6 mg tablet 2 tabs By Mouth Once daily For constipation 2 tabs 2023 Active 2023 63655 49801 1 Once daily By Mouth False Simvastatin 20 mg tablet [generic] 20 mg By Mouth Once daily For Hyperlipidemi a 20 mg 2023 Active 2023 63063 91572 0 Once daily By Mouth False Spiriva with HandiHaler 18 mcg and inhalation capsules 1 capsule Inhalation Once daily For COPD 1 capsule 2023 Active 2023 95307 96791 1 Once daily Inhala tion False Ventolin HFA 90 mcg/actuati on aerosol inhaler 2 puff Inhalation Every 4 hours as needed For COPD 2 puff 2023 Active 2023 00760 84323 0 Every 4 hours as needed Inhala tion False ProSource No Carb 15 gram-60 kcal/30 mL oral liquid 30ml By Mouth Twice daily For Protien supplement 30ml 2023 Active 2023 48944 10248 5 Twice daily By Mouth False Albuterol sulfate 2.5 mg/3 mL (0.083 %) solution for nebulizatio n [generic] 3 ml Inhalation Every 6 hours as needed For wheezing 3 ml 2023 Active 2023 53739 49804 3 Every 6 hours as needed Inhala tion False Acetaminoph en 325 mg tablet [generic] 650 mg By Mouth Every 6 hours For Mild Pain 650 mg 2023 Active 2023 84794 76443 0 Every 6 hours By Mouth False Tylenol 325 mg tablet 2 tabs By Mouth Every 4 hours as needed For Pain DO NOT EXCEED 3000 MG APAP/24 Hours 2 tabs 2023 Active 2023 42736 15250 0 Every 4 hours as needed By Mouth False Tylenol 325 mg tablet 2 tabs By Mouth Every 4 hours as needed For Fever >100 DO NOT EXCEED 3000 MG APAP/24 Hours 2 tabs 2023 Active 2023 26245 14946 0 Every 4 hours as needed By Mouth False Dulcolax (bisacodyl) 10 mg rectal suppository One Suppository per rectum PRN if Milk of Magnisia ineffective. Give on day 5 of no BM 1 sup 2023 Active 2023 53497 94992 1 Daily as needed Rectal False Fleet Enema 19 gram-7 gram/118 mL Administer per rectum PRN one time if dulcolax suppository not effective. Give on day 6 of no BM 1 2023 Active 2023 84124 93775 6 Daily as needed Rectal False Milk of Magnesia 400 mg/5 mL oral suspension [Magnesium hydroxide] PRN 30ml By Mouth Daily as needed for constipation one time daily if no BM, on day 4 of no BM (PRN refer to instructions) For Constipation 30 mL 2023 Active 2023 44261 76257 6 Daily as needed By Mouth False Problems Code [...] Temperature SpO2 Blood Sugar Pulse Respirations 210 79230 7 78.00 mm[Hg] - Lying Down 186.00 mm[Hg] - Lying Down 109.80 NI 97.90 Forehead Scan 91.00 % 92.00/ min 18.00/min 210 27410 1 74.00 mm[Hg] - Lying Down 147.00 mm[Hg] - Lying Down 85.00/ min 211 01548 2 72.00 mm[Hg] - Sitting 138.00 mm[Hg] - Sitting 98.40 Tympanic 86.00/ min 18.00/min 211 91709 2 59.00 mm[Hg] - Sitting 117.00 mm[Hg] - Sitting 98.20 Tympanic 99.00 % 81.00/ min 18.00/min 211 07495 5 69.00 mm[Hg] - Sitting 145.00 mm[Hg] - Sitting 211 66110 9 69.00 mm[Hg] - Sitting 145.00 mm[Hg] - Sitting 211 60810 5 69.00 mm[Hg] - Sitting 145.00 mm[Hg] - Sitting 211 24309 6 69.00 mm[Hg] - Sitting 212 82121 7 59.00 mm[Hg] - Sitting 117.00 mm[Hg] - Sitting 98.20 Tympanic 81.00/ min 18.00/min
--- OUTSIDE RECORDS SUMMARY | 2024-04-10 03:22 | External Medical Summary | Continuity Of Care Document ---
Author Name Unknown Address [address] [place] [address] [address] Organization [facility] () Care Team Providers Care Sleeve Setter Name Role Phone DO Alonso Amy Primary Care Provider [phone] Allergies Allergy Reaction Start Date End Date [...] 3 0.1 mL 01/29 Inactiv e 2023 09271 22024 0 1 time Intrad ermal False Tubersol 5 tub. unit/0.1 mL intradermal injection solution [Tuberculin PPD] 0.1mL Intradermal 1 time For PPD 2nd Step Give 2nd Step PPD Day 1 and Read results Day 3 (schedule 7 days after 1st READ) 0.1mL 02/07 Active 2023 41562 93920 0 1 time Intrad ermal False Oxycodone 5 mg tablet [generic] 5mg By Mouth Every 4 hours as needed for severe pain for pain rate 7-10. For right pubis fracture 5mg 01/27 Inactiv e 2023 86361 59058 1 Every 4 hours as needed By Mouth False OXYCODONE 5 MG TABLET [GENERIC]IM MEDIATE RELEASE 2.5mg By Mouth Every 4 hours as needed tablet po for moderate pain, pain rate 4-6 on pain scale 1-10. For pain 2.5mg 01/27 Inactiv e 2023 Every 4 hours as needed By Mouth False Oxycodone 5 mg tablet [generic] 01/27 Inactiv e 2023 23687 36978 1 Oxycodone 5 mg tablet [generic] 5mg By Mouth Every 4 hours as needed for severe pain for pain rate 7-10. For right pubis fracture 5mg 01/29 Inactiv e 2023 89655 15372 1 Every 4 hours as needed By [...] For Muscle spasms 175mg 2023 Active 2023 64527 16263 1 Every 6 hours as needed By Mouth False Cephalexin 500 mg capsule [generic] 500mg By Mouth Every 8 hours For UTI 500mg 01/30 Inactiv e 2023 03670 71433 1 Every 8 hours By Mouth False Aspirin 81 mg chewable tablet [generic] 81 mg By Mouth Once daily For AAA 81 mg 2023 Active 2023 10229 66470 6 Once daily By Mouth False Colace 100 mg capsule 100mg By Mouth Twice daily For constipation 100mg 2023 Active 2023 13466 96072 1 Twice daily By Mouth False Enoxaparin 300 mg/3 mL subcutaneou s solution [generic] 20mg Subcutaneous Once daily For anticoag. 20mg 2023 Active 2023 33862 29674 1 Once daily Subcut aneous False Losartan 50 mg tablet [generic] 50 By Mouth Once daily For HTN 50 2023 Active 2023 74805 12238 9 Once daily By Mouth False Miralax 17 gram/dose oral powder 17 gram By Mouth Once daily For contispation 17 gram 2023 Active 2023 59969 13914 0 Once daily By Mouth False Senna 8.6 mg tablet 2 tabs By Mouth Once daily For constipation 2 tabs 2023 Active 2023 81064 91648 1 Once daily By Mouth False Simvastatin 20 mg tablet [generic] 20 mg By Mouth Once daily For Hyperlipidemi a 20 mg 2023 Active 2023 11008 36519 0 Once daily By Mouth False Spiriva with HandiHaler 18 mcg and inhalation capsules 1 capsule Inhalation Once daily For COPD 1 capsule 2023 Active 2023 08382 45926 1 Once daily Inhala tion False Ventolin HFA 90 mcg/actuati on aerosol inhaler 2 puff Inhalation Every 4 hours as needed For COPD 2 puff 2023 Active 2023 56191 75186 0 Every 4 hours as needed Inhala tion False ProSource No Carb 15 gram-60 kcal/30 mL oral liquid 30ml By Mouth Twice daily For Protien supplement 30ml 2023 Active 2023 28708 52483 5 Twice daily By Mouth False Albuterol sulfate 2.5 mg/3 mL (0.083 %) solution for nebulizatio n [generic] 3 ml Inhalation Every 6 hours as needed For wheezing 3 ml 2023 Active 2023 41767 76448 3 Every 6 hours as needed Inhala tion False Acetaminoph en 325 mg tablet [generic] 650 mg By Mouth Every 6 hours For Mild Pain 650 mg 01/29 Inactiv e 2023 57572 55021 0 Every 6 hours By Mouth False Tylenol 325 mg tablet 2 tabs By Mouth Every 4 hours as needed For Pain DO NOT EXCEED 3000 MG APAP/24 Hours 2 tabs 2023 Active 2023 90076 62416 0 Every 4 hours as needed By Mouth False Tylenol 325 mg tablet 2 tabs By Mouth Every 4 hours as needed For Fever >100 DO NOT EXCEED 3000 MG APAP/24 Hours 2 tabs 2023 Active 2023 22375 28554 0 Every 4 hours as needed By Mouth False Dulcolax (bisacodyl) 10 mg rectal suppository One Suppository per rectum PRN if Milk of Magnisia ineffective. Give on day 5 of no BM 1 sup 2023 Active 2023 90148 57522 1 Daily as needed Rectal False Fleet Enema 19 gram-7 gram/118 mL Administer per rectum PRN one time if dulcolax suppository not effective. Give on day 6 of no BM 1 2023 Active 2023 47882 19080 6 Daily as needed Rectal False Milk of Magnesia 400 mg/5 mL oral suspension [Magnesium hydroxide] PRN 30ml By Mouth Daily as needed for constipation one time daily if no BM, on day 4 of no BM (PRN refer to instructions) For Constipation 30 mL 2023 Active 2023 87487 48951 6 Daily as needed By Mouth False Oxycodone 5 mg tablet [generic] 01/29 Inactiv e 2023 69726 37595 1 Oxycodone 5 mg tablet [generic] 5mg By Mouth Every 4 hours as needed for severe pain for pain rate 7-10. For right pubis fracture 5mg 2023 Active 2023 16106 59754 1 Every 4 hours as needed By Mouth False Cymbalta 30 mg capsule,del ayed release 30 mg By Mouth Once daily For Depression 30 mg 2023 Active 2023 11323 13496 0 Once daily By Mouth False Acetaminoph en 500 mg tablet [generic] 1000 mg By Mouth Twice daily not to exceed 3gm APAP in 24 hours For Pain 1000 mg 2023 Active 2023 00114 21035 8 Twice daily By Mouth False Problems [...] Temperature SpO2 Blood Sugar Pulse Respirations 210 54427 7 78.00 mm[Hg] - Lying Down 186.00 mm[Hg] - Lying Down 109.80 NI 97.90 Forehead Scan 91.00 % 92.00/ min 18.00/min 210 03240 1 74.00 mm[Hg] - Lying Down 147.00 mm[Hg] - Lying Down 85.00/ min 211 57467 2 72.00 mm[Hg] - Sitting 138.00 mm[Hg] - Sitting 98.40 Tympanic 86.00/ min 18.00/min 211 93831 2 59.00 mm[Hg] - Sitting 117.00 mm[Hg] - Sitting 98.20 Tympanic 99.00 % 81.00/ min 18.00/min 76044 211 11392 5 69.00 mm[Hg] - Sitting 145.00 mm[Hg] - Sitting 08100 211 93766 9 69.00 mm[Hg] - Sitting 145.00 mm[Hg] - Sitting 57900 211 70933 5 69.00 mm[Hg] - Sitting 145.00 mm[Hg] - Sitting 80418 211 36231 6 69.00 mm[Hg] - Sitting 00411 212 96213 7 59.00 mm[Hg] - Sitting 117.00 mm[Hg] - Sitting 98.20 Tympanic 81.00/ min 18.00/min 32656 212 34114 9 97.80 Tympanic 55049 212 65092 6 55.00 mm[Hg] - Sitting 109.00 mm[Hg] - Sitting 97.30 Tympanic 94.00 % 75.00/ min 18.00/min 57344 212 42414 5 68.00 mm[Hg] - Sitting 128.00 mm[Hg] - Sitting 97.80 Tympanic 80.00/ min 18.00/min 65229 212 04077 4 97.50 Tympanic 45174 212 04735 9 39801 212 36953 6 71.00 mm[Hg] - Sitting 117.00 mm[Hg] - Sitting 62168 213 46363 7 70.00 mm[Hg] - Sitting 118.00 mm[Hg] - Sitting 98.00 Tympanic 82.00/ min 18.00/min 77901 213 08928 5 73.00 mm[Hg] - Lying Down 127.00 mm[Hg] - Lying Down
--- OUTSIDE RECORDS SUMMARY | 2024-04-10 03:22 | External Medical Summary | Continuity Of Care Document ---
Author Name Unknown Address [address] [address] Organization [facility] () Care Team Providers Care Falafel Cart Cook Name Role Phone DO Alonso Amy Primary Care Provider [phone] Allergies Allergy Reaction Start Date End Date [...] 3 0.1 mL 01/29 Inactiv e 2023 40197 27085 0 1 time Intrad ermal False Tubersol 5 tub. unit/0.1 mL intradermal injection solution [Tuberculin PPD] 0.1mL Intradermal 1 time For PPD 2nd Step Give 2nd Step PPD Day 1 and Read results Day 3 (schedule 7 days after 1st READ) 0.1mL 02/07 Active 2023 77126 54204 0 1 time Intrad ermal False Oxycodone 5 mg tablet [generic] 5mg By Mouth Every 4 hours as needed for severe pain for pain rate 7-10. For right pubis fracture 5mg 01/27 Inactiv e 2023 74002 53300 1 Every 4 hours as needed By Mouth False OXYCODONE 5 MG TABLET [GENERIC]IM MEDIATE RELEASE 2.5mg By Mouth Every 4 hours as needed tablet po for moderate pain, pain rate 4-6 on pain scale 1-10. For pain 2.5mg 01/27 Inactiv e 2023 Every 4 hours as needed By Mouth False Oxycodone 5 mg tablet [generic] 01/27 Inactiv e 2023 46244 40412 1 Oxycodone 5 mg tablet [generic] 5mg By Mouth Every 4 hours as needed for severe pain for pain rate 7-10. For right pubis fracture 5mg 01/29 Inactiv e 2023 83246 37346 1 Every 4 hours as needed By [...] For Muscle spasms 175mg 2023 Active 2023 23447 39655 1 Every 6 hours as needed By Mouth False Cephalexin 500 mg capsule [generic] 500mg By Mouth Every 8 hours For UTI 500mg 01/30 Inactiv e 2023 52245 41342 1 Every 8 hours By Mouth False Aspirin 81 mg chewable tablet [generic] 81 mg By Mouth Once daily For AAA 81 mg 2023 Active 2023 53220 59256 6 Once daily By Mouth False Colace 100 mg capsule 100mg By Mouth Twice daily For constipation 100mg 2023 Active 2023 01284 57097 1 Twice daily By Mouth False Enoxaparin 300 mg/3 mL subcutaneou s solution [generic] 20mg Subcutaneous Once daily For anticoag. 20mg 2023 Active 2023 54827 96389 1 Once daily Subcut aneous False Losartan 50 mg tablet [generic] 50 By Mouth Once daily For HTN 50 2023 Active 2023 43387 70449 9 Once daily By Mouth False Miralax 17 gram/dose oral powder 17 gram By Mouth Once daily For contispation 17 gram 2023 Active 2023 32547 35128 0 Once daily By Mouth False Senna 8.6 mg tablet 2 tabs By Mouth Once daily For constipation 2 tabs 2023 Active 2023 11852 87104 1 Once daily By Mouth False Simvastatin 20 mg tablet [generic] 20 mg By Mouth Once daily For Hyperlipidemi a 20 mg 2023 Active 2023 20764 31029 0 Once daily By Mouth False Spiriva with HandiHaler 18 mcg and inhalation capsules 1 capsule Inhalation Once daily For COPD 1 capsule 2023 Active 2023 42029 42893 1 Once daily Inhala tion False Ventolin HFA 90 mcg/actuati on aerosol inhaler 2 puff Inhalation Every 4 hours as needed For COPD 2 puff 2023 Active 2023 47726 42472 0 Every 4 hours as needed Inhala tion False ProSource No Carb 15 gram-60 kcal/30 mL oral liquid 30ml By Mouth Twice daily For Protien supplement 30ml 01/30 Inactiv e 2023 23935 06667 5 Twice daily By Mouth False Albuterol sulfate 2.5 mg/3 mL (0.083 %) solution for nebulizatio n [generic] 3 ml Inhalation Every 6 hours as needed For wheezing 3 ml 2023 Active 2023 03317 74486 3 Every 6 hours as needed Inhala tion False Acetaminoph en 325 mg tablet [generic] 650 mg By Mouth Every 6 hours For Mild Pain 650 mg 01/29 Inactiv e 2023 11085 02266 0 Every 6 hours By Mouth False Tylenol 325 mg tablet 2 tabs By Mouth Every 4 hours as needed For Pain DO NOT EXCEED 3000 MG APAP/24 Hours 2 tabs 2023 Active 2023 46499 73924 0 Every 4 hours as needed By Mouth False Tylenol 325 mg tablet 2 tabs By Mouth Every 4 hours as needed For Fever >100 DO NOT EXCEED 3000 MG APAP/24 Hours 2 tabs 2023 Active 2023 75011 97449 0 Every 4 hours as needed By Mouth False Dulcolax (bisacodyl) 10 mg rectal suppository One Suppository per rectum PRN if Milk of Magnisia ineffective. Give on day 5 of no BM 1 sup 2023 Active 2023 99400 37506 1 Daily as needed Rectal False Fleet Enema 19 gram-7 gram/118 mL Administer per rectum PRN one time if dulcolax suppository not effective. Give on day 6 of no BM 1 2023 Active 2023 59823 38612 6 Daily as needed Rectal False Milk of Magnesia 400 mg/5 mL oral suspension [Magnesium hydroxide] PRN 30ml By Mouth Daily as needed for constipation one time daily if no BM, on day 4 of no BM (PRN refer to instructions) For Constipation 30 mL 2023 Active 2023 21654 76115 6 Daily as needed By Mouth False Oxycodone 5 mg tablet [generic] 01/29 Inactiv e 2023 04350 92810 1 Oxycodone 5 mg tablet [generic] 5mg By Mouth Every 4 hours as needed for severe pain for pain rate 7-10. For right pubis fracture 5mg 2023 Active 2023 40419 16449 1 Every 4 hours as needed By Mouth False Cymbalta 30 mg capsule,del ayed release 30 mg By Mouth Once daily For Depression 30 mg 2023 Active 2023 45262 63017 0 Once daily By Mouth False Acetaminoph en 500 mg tablet [generic] 1000 mg By Mouth Twice daily not to exceed 3gm APAP in 24 hours For Pain 1000 mg 2023 Active 2023 46489 90182 8 Twice daily By Mouth False Healthshake [...] Temperature SpO2 Blood Sugar Pulse Respirations 210 05952 7 78.00 mm[Hg] - Lying Down 186.00 mm[Hg] - Lying Down 109.80 NI 97.90 Forehead Scan 91.00 % 92.00/ min 18.00/min 210 35886 1 74.00 mm[Hg] - Lying Down 147.00 mm[Hg] - Lying Down 85.00/ min 211 79463 2 72.00 mm[Hg] - Sitting 138.00 mm[Hg] - Sitting 98.40 Tympanic 86.00/ min 18.00/min 86587 211 81385 2 59.00 mm[Hg] - Sitting 117.00 mm[Hg] - Sitting 98.20 Tympanic 99.00 % 81.00/ min 18.00/min 19975 211 07620 5 69.00 mm[Hg] - Sitting 145.00 mm[Hg] - Sitting 56834 211 69156 9 69.00 mm[Hg] - Sitting 145.00 mm[Hg] - Sitting 48901 211 69432 5 69.00 mm[Hg] - Sitting 145.00 mm[Hg] - Sitting 81384 211 85684 6 69.00 mm[Hg] - Sitting 19990 212 61962 7 59.00 mm[Hg] - Sitting 117.00 mm[Hg] - Sitting 98.20 Tympanic 81.00/ min 18.00/min 56744 212 66255 9 97.80 Tympanic 66433 212 24044 6 55.00 mm[Hg] - Sitting 109.00 mm[Hg] - Sitting 97.30 Tympanic 94.00 % 75.00/ min 18.00/min 91714 212 93768 5 68.00 mm[Hg] - Sitting 128.00 mm[Hg] - Sitting 97.80 Tympanic 80.00/ min 18.00/min 26011 212 51298 4 97.50 Tympanic 69379 212 32059 9 27429 212 40024 6 71.00 mm[Hg] - Sitting 117.00 mm[Hg] - Sitting 26440 213 55205 0 60.00 mm[Hg] - Sitting 116.00 mm[Hg] - Sitting 98.40 Forehead Scan 94.00 % 72.00/ min 16.00/min 60797 213 48443 7 70.00 mm[Hg] - Sitting 118.00 mm[Hg] - Sitting 98.00 Tympanic 82.00/ min 18.00/min 85041 213 01582 5 73.00 mm[Hg] - Lying Down 127.00 mm[Hg] - Lying Down 82094 213 06087 3
--- OUTSIDE RECORDS SUMMARY | 2024-04-10 03:22 | External Medical Summary | Summary of Care ---
Author Name Unknown Organization [facility] Address [address] [address] Phone [phone] Care Team Providers Care Upset Operator Name Role Phone Maria G Rendon Primary Care Provider Encounter Details Date Type Department Care Team (Late st Contact Info) Description 01/29/2024 Population Health External Data Unspecified Department Allergies Active Allergy Reactions Criticality Noted Date Comments Acetazolamide 05/22/2017 Percodan Psych complications 08/25/2003 Shakes really bad documented as of this encounter (statuses as of 01/29/2024) Medications CHILDRENS ASPIRIN 81 MG OR CHEW [...] morning. 30 Tablet 5 4 Active Tiotropium Register Monohydrate 18 MCG Inhalation Capsule (Spiriva HandiHaler)Indic [...] Capsule before bedtime. 10 Capsule 4 Active Enoxaparin Sodium 300 MG/3ML Injection Solution (Lovenox) Inject 20 mg under the skin in the morning. 6 mL 4 02/21/19 25 Active oxyCODONE HCl 5 MG Oral Tablet (Oxy IR) Take 1 Tablet by mouth every 4 hours as needed for Pain, Severe (can take 1/2 tab, 2.5 mg for moderate pain, contination of pain therapy). 15 Tablet 4 Active Acetaminophen 325 MG Oral Tablet (Tylenol) Take 2 Tablets by mouth every 6 hours. 30 Tablet 4 Active Cephalexin 500 MG Oral Capsule (Keflex) Take 1 Capsule by mouth in the morning and 1 Capsule at noon and 1 Capsule before bedtime. Do all this for 3 days. for 7 days.. 9 Capsule 4 01/31/20 24 Active documented as of this encounter (statuses as of 01/29/2024) Active Problems Problem Noted Date Diagnosed Date [...] as of this encounter (statuses as of 01/29/2024) Resolved Problems Problem Noted Date Diagnosed Date [...] as of this encounter (statuses as of 01/29/2024) Immunizations Name Administration Dates Next Due COVID-19 mRNA, LNP-s, No Pre serve, 2-Dose Series ([employer]) 04/27/2020,04/06/2020 Pneumococcal Conjugate Vacc, 13 Valent (Prevnar) [...] Care Team (Late st Contact Info) Description 01/30/2024 10:45 AM EST Office Visit Orthopaedics, [place] [address] [place] [address] Scot Baum MD [address] [place] [address] 02/07/2024 10:30 AM EST Office Visit Urology, [place] [address] [place] [address] Zoe Barnard PA-C [address] [place] [address] 06/19/2024 8:40 AM EDT Office Visit Family Practice [facility] [address] [facility] [place], [place] [address] Maria G Rendon DO [address] [place] [address] 08/17/2024 8:00 AM EDT Office Visit Pulmonary Medicine, [facility] [address] [facility] [place] [id number] Humphrey Cormier MD [address] [id number] Scheduled Procedures Name Priority Associated Diagnoses Date/Ti me COLONOSCOPY FLEXIBLE PROXIMA L DIAGNOSTIC Recall Special screening for malignant neoplasms, colon Health Maintenance Due Date Last Done Comments Zoster Vaccines (1 of 2) 1994 Pneumococcal Vaccine: 65+ Years (3 of 3 - PPSV23 or PCV20) 05/22/2017 05/22/2016, 06/18/2008 Adult Wellness Visit 08/27/2017 08/27/2016 Depression Screening 04/09/2020 04/09/2019 DXA Scan 05/24/2021 05/24/2014, 08/18, 08/28/2010 DISCUSS TOBACCO CESSATION (REFER TO SMARTSET #3291) 10/11/2022 10/11/2021 COVID-19 Vaccine ( season) 2023 04/27/2020, 04/06/2020 Influenza Vaccine (FLU shot) (#1) 2023 12/24/2022, 10/31/2021, 11/11/2020, Additional history exists Albumin/Creatinine Ratio 05/22/2024 05/23/2023, 05/2017 GFR 07/27/2024 01/27/2024, 09/2023, 01/25/2024, Additional history exists CKD PHOS USE SMARTSET 70585 09/04/202408/18, 05/31/2022, 04/09/2019, Additional history exists CKD HGB USE SMARTSET 57257 01/26/202501/26, 01/26/2024, 01/25/2024, Additional history exists O2 [...] this encounter Medical Devices Implanted Type Area Research And Development Director Device Identifier Shelf Expiration Date Model / Serial / Lot Patch Xenosure [id number] - [id number] - [id number] Implanted:Qty : 1 on 05/12/2021 by David Boss MD at OR [facility] [place] Right: Femoral Artery [employer] [id number] 11/15/2026 [id number] / [id number] / [id number] Graft Stent Viab [id number] - [id number] - [id number] Implanted:Qty : 1 on 05/12/2021 by David Boss MD at OR [facility] [place] Right: Iliac [employer] [id number] 01/06/2024 [id number] / [id number] / [id number] documented as of this encounter Advance Directives [...] and were consensually agreed upon. Care Teams Upset Operator Relationship Specialty Start Date End Date Maria G Rendon DO [address] [place] [address] PCP - General Family Medicine 11/03/20 documented as of this encounter
--- OUTSIDE RECORDS SUMMARY | 2024-04-10 03:22 | External Medical Summary | Continuity Of Care Document ---
Author Name Unknown Address [address] [address] Organization [facility] () Care Team Providers Care Landscape Gardener Name Role Phone DO Alonso Amy Primary Care Provider [phone] Allergies Allergy Reaction Start Date End Date [...] 3 0.1 mL 01/29 Inactiv e 2023 26793 91607 0 1 time Intrad ermal False Tubersol 5 tub. unit/0.1 mL intradermal injection solution [Tuberculin PPD] 0.1mL Intradermal 1 time For PPD 2nd Step Give 2nd Step PPD Day 1 and Read results Day 3 (schedule 7 days after 1st READ) 0.1mL 02/07 Active 2023 64318 43191 0 1 time Intrad ermal False Oxycodone 5 mg tablet [generic] 5mg By Mouth Every 4 hours as needed for severe pain for pain rate 7-10. For right pubis fracture 5mg 01/27 Inactiv e 2023 66449 86298 1 Every 4 hours as needed By Mouth False OXYCODONE 5 MG TABLET [GENERIC]IM MEDIATE RELEASE 2.5mg By Mouth Every 4 hours as needed tablet po for moderate pain, pain rate 4-6 on pain scale 1-10. For pain 2.5mg 01/27 Inactiv e 2023 Every 4 hours as needed By Mouth False Oxycodone 5 mg tablet [generic] 01/27 Inactiv e 2023 92614 89313 1 Oxycodone 5 mg tablet [generic] 5mg By Mouth Every 4 hours as needed for severe pain for pain rate 7-10. For right pubis fracture 5mg 01/29 Inactiv e 2023 26899 04529 1 Every 4 hours as needed By [...] For Muscle spasms 175mg 2023 Active 2023 00192 34229 1 Every 6 hours as needed By Mouth False Cephalexin 500 mg capsule [generic] 500mg By Mouth Every 8 hours For UTI 500mg 01/30 Inactiv e 2023 36261 36853 1 Every 8 hours By Mouth False Aspirin 81 mg chewable tablet [generic] 81 mg By Mouth Once daily For AAA 81 mg 2023 Active 2023 90217 16138 6 Once daily By Mouth False Colace 100 mg capsule 100mg By Mouth Twice daily For constipation 100mg 2023 Active 2023 09793 17888 1 Twice daily By Mouth False Enoxaparin 300 mg/3 mL subcutaneou s solution [generic] 20mg Subcutaneous Once daily For anticoag. 20mg 2023 Active 2023 39120 72328 1 Once daily Subcut aneous False Losartan 50 mg tablet [generic] 50 By Mouth Once daily For HTN 50 2023 Active 2023 30582 22174 9 Once daily By Mouth False Miralax 17 gram/dose oral powder 17 gram By Mouth Once daily For contispation 17 gram 2023 Active 2023 85454 09822 0 Once daily By Mouth False Senna 8.6 mg tablet 2 tabs By Mouth Once daily For constipation 2 tabs 2023 Active 2023 26744 53287 1 Once daily By Mouth False Simvastatin 20 mg tablet [generic] 20 mg By Mouth Once daily For Hyperlipidemi a 20 mg 2023 Active 2023 55728 67419 0 Once daily By Mouth False Spiriva with HandiHaler 18 mcg and inhalation capsules 1 capsule Inhalation Once daily For COPD 1 capsule 2023 Active 2023 87406 73212 1 Once daily Inhala tion False Ventolin HFA 90 mcg/actuati on aerosol inhaler 2 puff Inhalation Every 4 hours as needed For COPD 2 puff 2023 Active 2023 35593 36076 0 Every 4 hours as needed Inhala tion False ProSource No Carb 15 gram-60 kcal/30 mL oral liquid 30ml By Mouth Twice daily For Protien supplement 30ml 01/30 Inactiv e 2023 64163 82114 5 Twice daily By Mouth False Albuterol sulfate 2.5 mg/3 mL (0.083 %) solution for nebulizatio n [generic] 3 ml Inhalation Every 6 hours as needed For wheezing 3 ml 2023 Active 2023 21925 50380 3 Every 6 hours as needed Inhala tion False Acetaminoph en 325 mg tablet [generic] 650 mg By Mouth Every 6 hours For Mild Pain 650 mg 01/29 Inactiv e 2023 50099 18163 0 Every 6 hours By Mouth False Tylenol 325 mg tablet 2 tabs By Mouth Every 4 hours as needed For Pain DO NOT EXCEED 3000 MG APAP/24 Hours 2 tabs 2023 Active 2023 03238 47372 0 Every 4 hours as needed By Mouth False Tylenol 325 mg tablet 2 tabs By Mouth Every 4 hours as needed For Fever >100 DO NOT EXCEED 3000 MG APAP/24 Hours 2 tabs 2023 Active 2023 59261 18510 0 Every 4 hours as needed By Mouth False Dulcolax (bisacodyl) 10 mg rectal suppository One Suppository per rectum PRN if Milk of Magnisia ineffective. Give on day 5 of no BM 1 sup 2023 Active 2023 77648 89387 1 Daily as needed Rectal False Fleet Enema 19 gram-7 gram/118 mL Administer per rectum PRN one time if dulcolax suppository not effective. Give on day 6 of no BM 1 2023 Active 2023 92890 34674 6 Daily as needed Rectal False Milk of Magnesia 400 mg/5 mL oral suspension [Magnesium hydroxide] PRN 30ml By Mouth Daily as needed for constipation one time daily if no BM, on day 4 of no BM (PRN refer to instructions) For Constipation 30 mL 2023 Active 2023 84760 26539 6 Daily as needed By Mouth False Oxycodone 5 mg tablet [generic] 01/29 Inactiv e 2023 34271 87500 1 Oxycodone 5 mg tablet [generic] 5mg By Mouth Every 4 hours as needed for severe pain for pain rate 7-10. For right pubis fracture 5mg 2023 Active 2023 86165 43732 1 Every 4 hours as needed By Mouth False Cymbalta 30 mg capsule,del ayed release 30 mg By Mouth Once daily For Depression 30 mg 2023 Active 2023 46042 11629 0 Once daily By Mouth False Acetaminoph en 500 mg tablet [generic] 1000 mg By Mouth Twice daily not to exceed 3gm APAP in 24 hours For Pain 1000 mg 2023 Active 2023 72614 49979 8 Twice daily By Mouth False Healthshake [...] Temperature SpO2 Blood Sugar Pulse Respirations 210 15340 7 78.00 mm[Hg] - Lying Down 186.00 mm[Hg] - Lying Down 109.80 NI 97.90 Forehead Scan 91.00 % 92.00/ min 18.00/min 210 11437 1 74.00 mm[Hg] - Lying Down 147.00 mm[Hg] - Lying Down 85.00/ min 211 82547 2 72.00 mm[Hg] - Sitting 138.00 mm[Hg] - Sitting 98.40 Tympanic 86.00/ min 18.00/min 92666 211 00317 2 59.00 mm[Hg] - Sitting 117.00 mm[Hg] - Sitting 98.20 Tympanic 99.00 % 81.00/ min 18.00/min 20461 211 49834 5 69.00 mm[Hg] - Sitting 145.00 mm[Hg] - Sitting 84886 211 22611 9 69.00 mm[Hg] - Sitting 145.00 mm[Hg] - Sitting 30754 211 01132 5 69.00 mm[Hg] - Sitting 145.00 mm[Hg] - Sitting 61055 211 07433 6 69.00 mm[Hg] - Sitting 34188 212 23336 7 59.00 mm[Hg] - Sitting 117.00 mm[Hg] - Sitting 98.20 Tympanic 81.00/ min 18.00/min 16678 212 71042 9 97.80 Tympanic 87841 212 95125 6 55.00 mm[Hg] - Sitting 109.00 mm[Hg] - Sitting 97.30 Tympanic 94.00 % 75.00/ min 18.00/min 63749 212 31998 5 68.00 mm[Hg] - Sitting 128.00 mm[Hg] - Sitting 97.80 Tympanic 80.00/ min 18.00/min 65993 212 81629 4 97.50 Tympanic 03904 212 61000 9 20041 212 61035 6 71.00 mm[Hg] - Sitting 117.00 mm[Hg] - Sitting 67594 213 32022 0 60.00 mm[Hg] - Sitting 116.00 mm[Hg] - Sitting 98.40 Forehead Scan 94.00 % 72.00/ min 16.00/min 93865 213 48839 7 70.00 mm[Hg] - Sitting 118.00 mm[Hg] - Sitting 98.00 Tympanic 82.00/ min 18.00/min 15932 213 37708 5 73.00 mm[Hg] - Lying Down 127.00 mm[Hg] - Lying Down 35986 213 93469 3
--- OUTSIDE RECORDS SUMMARY | 2024-04-10 03:22 | External Medical Summary | Continuity Of Care Document ---
Author Name Unknown Address [address] [address] Organization [facility] () Care Team Providers Care Refrigerator Crater Name Role Phone DO Alonso Amy Primary Care Provider [phone] Allergies Allergy Reaction Start Date End Date [...] 3 0.1 mL 01/29 Inactiv e 2023 15954 09994 0 1 time Intrad ermal False Tubersol 5 tub. unit/0.1 mL intradermal injection solution [Tuberculin PPD] 0.1mL Intradermal 1 time For PPD 2nd Step Give 2nd Step PPD Day 1 and Read results Day 3 (schedule 7 days after 1st READ) 0.1mL 02/07 Active 2023 01993 55467 0 1 time Intrad ermal False Oxycodone 5 mg tablet [generic] 5mg By Mouth Every 4 hours as needed for severe pain for pain rate 7-10. For right pubis fracture 5mg 01/27 Inactiv e 2023 91826 87386 1 Every 4 hours as needed By Mouth False OXYCODONE 5 MG TABLET [GENERIC]IM MEDIATE RELEASE 2.5mg By Mouth Every 4 hours as needed tablet po for moderate pain, pain rate 4-6 on pain scale 1-10. For pain 2.5mg 01/27 Inactiv e 2023 Every 4 hours as needed By Mouth False Oxycodone 5 mg tablet [generic] 01/27 Inactiv e 2023 39775 59608 1 Oxycodone 5 mg tablet [generic] 5mg By Mouth Every 4 hours as needed for severe pain for pain rate 7-10. For right pubis fracture 5mg 2023 Active 2023 37723 20060 1 Every 4 hours as needed By [...] For Muscle spasms 175mg 2023 Active 2023 28471 93447 1 Every 6 hours as needed By Mouth False Cephalexin 500 mg capsule [generic] 500mg By Mouth Every 8 hours For UTI 500mg 01/30 Active 2023 39990 00904 1 Every 8 hours By Mouth False Aspirin 81 mg chewable tablet [generic] 81 mg By Mouth Once daily For AAA 81 mg 2023 Active 2023 36399 15400 6 Once daily By Mouth False Colace 100 mg capsule 100mg By Mouth Twice daily For constipation 100mg 2023 Active 2023 25603 36155 1 Twice daily By Mouth False Enoxaparin 300 mg/3 mL subcutaneou s solution [generic] 20mg Subcutaneous Once daily For anticoag. 20mg 2023 Active 2023 17010 29208 1 Once daily Subcut aneous False Losartan 50 mg tablet [generic] 50 By Mouth Once daily For HTN 50 2023 Active 2023 32008 82850 9 Once daily By Mouth False Miralax 17 gram/dose oral powder 17 gram By Mouth Once daily For contispation 17 gram 2023 Active 2023 68449 10711 0 Once daily By Mouth False Senna 8.6 mg tablet 2 tabs By Mouth Once daily For constipation 2 tabs 2023 Active 2023 59286 81685 1 Once daily By Mouth False Simvastatin 20 mg tablet [generic] 20 mg By Mouth Once daily For Hyperlipidemi a 20 mg 2023 Active 2023 90392 15206 0 Once daily By Mouth False Spiriva with HandiHaler 18 mcg and inhalation capsules 1 capsule Inhalation Once daily For COPD 1 capsule 2023 Active 2023 15407 14245 1 Once daily Inhala tion False Ventolin HFA 90 mcg/actuati on aerosol inhaler 2 puff Inhalation Every 4 hours as needed For COPD 2 puff 2023 Active 2023 21923 03652 0 Every 4 hours as needed Inhala tion False ProSource No Carb 15 gram-60 kcal/30 mL oral liquid 30ml By Mouth Twice daily For Protien supplement 30ml 2023 Active 2023 57224 65782 5 Twice daily By Mouth False Albuterol sulfate 2.5 mg/3 mL (0.083 %) solution for nebulizatio n [generic] 3 ml Inhalation Every 6 hours as needed For wheezing 3 ml 2023 Active 2023 53521 13033 3 Every 6 hours as needed Inhala tion False Acetaminoph en 325 mg tablet [generic] 650 mg By Mouth Every 6 hours For Mild Pain 650 mg 2023 Active 2023 05081 33516 0 Every 6 hours By Mouth False Tylenol 325 mg tablet 2 tabs By Mouth Every 4 hours as needed For Pain DO NOT EXCEED 3000 MG APAP/24 Hours 2 tabs 2023 Active 2023 58521 15091 0 Every 4 hours as needed By Mouth False Tylenol 325 mg tablet 2 tabs By Mouth Every 4 hours as needed For Fever >100 DO NOT EXCEED 3000 MG APAP/24 Hours 2 tabs 2023 Active 2023 15367 88082 0 Every 4 hours as needed By Mouth False Dulcolax (bisacodyl) 10 mg rectal suppository One Suppository per rectum PRN if Milk of Magnisia ineffective. Give on day 5 of no BM 1 sup 2023 Active 2023 20298 32403 1 Daily as needed Rectal False Fleet Enema 19 gram-7 gram/118 mL Administer per rectum PRN one time if dulcolax suppository not effective. Give on day 6 of no BM 1 2023 Active 2023 05101 70856 6 Daily as needed Rectal False Milk of Magnesia 400 mg/5 mL oral suspension [Magnesium hydroxide] PRN 30ml By Mouth Daily as needed for constipation one time daily if no BM, on day 4 of no BM (PRN refer to instructions) For Constipation 30 mL 2023 Active 2023 02513 88546 6 Daily as needed By Mouth False [...] Temperature SpO2 Blood Sugar Pulse Respirations 210 88780 7 78.00 mm[Hg] - Lying Down 186.00 mm[Hg] - Lying Down 109.80 NI 97.90 Forehead Scan 91.00 % 92.00/ min 18.00/min 210 39415 1 74.00 mm[Hg] - Lying Down 147.00 mm[Hg] - Lying Down 85.00/ min 211 71283 2 72.00 mm[Hg] - Sitting 138.00 mm[Hg] - Sitting 98.40 Tympanic 86.00/ min 18.00/min 211 40308 2 59.00 mm[Hg] - Sitting 117.00 mm[Hg] - Sitting 98.20 Tympanic 99.00 % 81.00/ min 18.00/min 211 28374 5 69.00 mm[Hg] - Sitting 145.00 mm[Hg] - Sitting 211 87320 9 69.00 mm[Hg] - Sitting 145.00 mm[Hg] - Sitting 211 09414 5 69.00 mm[Hg] - Sitting 145.00 mm[Hg] - Sitting 211 94453 6 69.00 mm[Hg] - Sitting 212 94032 7 59.00 mm[Hg] - Sitting 117.00 mm[Hg] - Sitting 98.20 Tympanic 81.00/ min 18.00/min
--- OUTSIDE RECORDS SUMMARY | 2024-04-10 03:22 | External Medical Summary | Continuity Of Care Document ---
Author Name Unknown Address [address] [address] Organization [facility] () Care Team Providers Care Cranberry Bog Supervisor Name Role Phone DO Alonso Amy Primary Care Provider [phone] Allergies Allergy Reaction Start Date End Date [...] 3 0.1 mL 01/29 Inactiv e 2023 90016 74666 0 1 time Intrad ermal False Tubersol 5 tub. unit/0.1 mL intradermal injection solution [Tuberculin PPD] 0.1mL Intradermal 1 time For PPD 2nd Step Give 2nd Step PPD Day 1 and Read results Day 3 (schedule 7 days after 1st READ) 0.1mL 02/07 Active 2023 49855 23894 0 1 time Intrad ermal False Oxycodone 5 mg tablet [generic] 5mg By Mouth Every 4 hours as needed for severe pain for pain rate 7-10. For right pubis fracture 5mg 01/27 Inactiv e 2023 88126 11453 1 Every 4 hours as needed By Mouth False OXYCODONE 5 MG TABLET [GENERIC]IM MEDIATE RELEASE 2.5mg By Mouth Every 4 hours as needed tablet po for moderate pain, pain rate 4-6 on pain scale 1-10. For pain 2.5mg 01/27 Inactiv e 2023 Every 4 hours as needed By Mouth False Oxycodone 5 mg tablet [generic] 01/27 Inactiv e 2023 91846 30211 1 Oxycodone 5 mg tablet [generic] 5mg By Mouth Every 4 hours as needed for severe pain for pain rate 7-10. For right pubis fracture 5mg 01/29 Inactiv e 2023 66715 62242 1 Every 4 hours as needed By [...] For Muscle spasms 175mg 2023 Active 2023 62322 99960 1 Every 6 hours as needed By Mouth False Cephalexin 500 mg capsule [generic] 500mg By Mouth Every 8 hours For UTI 500mg 01/30 Active 2023 39980 46505 1 Every 8 hours By Mouth False Aspirin 81 mg chewable tablet [generic] 81 mg By Mouth Once daily For AAA 81 mg 2023 Active 2023 00911 22745 6 Once daily By Mouth False Colace 100 mg capsule 100mg By Mouth Twice daily For constipation 100mg 2023 Active 2023 43803 53220 1 Twice daily By Mouth False Enoxaparin 300 mg/3 mL subcutaneou s solution [generic] 20mg Subcutaneous Once daily For anticoag. 20mg 2023 Active 2023 51753 41193 1 Once daily Subcut aneous False Losartan 50 mg tablet [generic] 50 By Mouth Once daily For HTN 50 2023 Active 2023 26455 76706 9 Once daily By Mouth False Miralax 17 gram/dose oral powder 17 gram By Mouth Once daily For contispation 17 gram 2023 Active 2023 31387 44179 0 Once daily By Mouth False Senna 8.6 mg tablet 2 tabs By Mouth Once daily For constipation 2 tabs 2023 Active 2023 37216 22477 1 Once daily By Mouth False Simvastatin 20 mg tablet [generic] 20 mg By Mouth Once daily For Hyperlipidemi a 20 mg 2023 Active 2023 98739 87695 0 Once daily By Mouth False Spiriva with HandiHaler 18 mcg and inhalation capsules 1 capsule Inhalation Once daily For COPD 1 capsule 2023 Active 2023 66957 76786 1 Once daily Inhala tion False Ventolin HFA 90 mcg/actuati on aerosol inhaler 2 puff Inhalation Every 4 hours as needed For COPD 2 puff 2023 Active 2023 27913 11803 0 Every 4 hours as needed Inhala tion False ProSource No Carb 15 gram-60 kcal/30 mL oral liquid 30ml By Mouth Twice daily For Protien supplement 30ml 2023 Active 2023 54323 94865 5 Twice daily By Mouth False Albuterol sulfate 2.5 mg/3 mL (0.083 %) solution for nebulizatio n [generic] 3 ml Inhalation Every 6 hours as needed For wheezing 3 ml 2023 Active 2023 70520 66370 3 Every 6 hours as needed Inhala tion False Acetaminoph en 325 mg tablet [generic] 650 mg By Mouth Every 6 hours For Mild Pain 650 mg 2023 Active 2023 36686 21350 0 Every 6 hours By Mouth False Tylenol 325 mg tablet 2 tabs By Mouth Every 4 hours as needed For Pain DO NOT EXCEED 3000 MG APAP/24 Hours 2 tabs 2023 Active 2023 56908 66819 0 Every 4 hours as needed By Mouth False Tylenol 325 mg tablet 2 tabs By Mouth Every 4 hours as needed For Fever >100 DO NOT EXCEED 3000 MG APAP/24 Hours 2 tabs 2023 Active 2023 84280 32606 0 Every 4 hours as needed By Mouth False Dulcolax (bisacodyl) 10 mg rectal suppository One Suppository per rectum PRN if Milk of Magnisia ineffective. Give on day 5 of no BM 1 sup 2023 Active 2023 31246 45050 1 Daily as needed Rectal False Fleet Enema 19 gram-7 gram/118 mL Administer per rectum PRN one time if dulcolax suppository not effective. Give on day 6 of no BM 1 2023 Active 2023 64313 29984 6 Daily as needed Rectal False Milk of Magnesia 400 mg/5 mL oral suspension [Magnesium hydroxide] PRN 30ml By Mouth Daily as needed for constipation one time daily if no BM, on day 4 of no BM (PRN refer to instructions) For Constipation 30 mL 2023 Active 2023 20219 64682 6 Daily as needed By Mouth False Oxycodone 5 mg tablet [generic] 01/29 Inactiv e 2023 78607 35458 1 Oxycodone 5 mg tablet [generic] 5mg By Mouth Every 4 hours as needed for severe pain for pain rate 7-10. For right pubis fracture 5mg 2023 Active 2023 48593 10126 1 Every 4 hours as needed By [...] weight Temperature SpO2 Blood Sugar Pulse Respirations 51054 7 78.00 mm[Hg] - Lying Down 186.00 mm[Hg] - Lying Down 109.80 NI 97.90 Forehead Scan 91.00 % 92.00/ min 18.00/min 210 34201 1 74.00 mm[Hg] - Lying Down 147.00 mm[Hg] - Lying Down 85.00/ min 211 02294 2 72.00 mm[Hg] - Sitting 138.00 mm[Hg] - Sitting 98.40 Tympanic 86.00/ min 18.00/min 211 97315 2 59.00 mm[Hg] - Sitting 117.00 mm[Hg] - Sitting 98.20 Tympanic 99.00 % 81.00/ min 18.00/min 211 69578 5 69.00 mm[Hg] - Sitting 145.00 mm[Hg] - Sitting 211 69044 9 69.00 mm[Hg] - Sitting 145.00 mm[Hg] - Sitting 211 41675 5 69.00 mm[Hg] - Sitting 145.00 mm[Hg] - Sitting 211 48630 6 69.00 mm[Hg] - Sitting 212 62273 7 59.00 mm[Hg] - Sitting 117.00 mm[Hg] - Sitting 98.20 Tympanic 81.00/ min 18.00/min 03964 212 35553 9 212 32011 6 71.00 mm[Hg] - Sitting 117.00 mm[Hg] - Sitting
--- OUTSIDE RECORDS SUMMARY | 2024-04-10 03:22 | External Medical Summary | Continuity Of Care Document ---
Author Name Unknown Address [address] [address] Organization [facility] () Care Team Providers Care Neon Technician Name Role Phone DO Alonso Amy Primary Care Provider [phone] Allergies Allergy Reaction Start Date End Date [...] read results Day 3 0.1 mL 01/29 Active 2023 87575 06090 0 1 time Intrad ermal False Tubersol 5 tub. unit/0.1 mL intradermal injection solution [Tuberculin PPD] 0.1mL Intradermal 1 time For PPD 2nd Step Give 2nd Step PPD Day 1 and Read results Day 3 (schedule 7 days after 1st READ) 0.1mL 02/07 Active 2023 42035 16375 0 1 time Intrad ermal False Oxycodone 5 mg tablet [generic] 5mg By Mouth Every 4 hours as needed for severe pain for pain rate 7-10. For right pubis fracture 5mg 01/27 Inactiv e 2023 92521 63343 1 Every 4 hours as needed By Mouth False OXYCODONE 5 MG TABLET [GENERIC]IM MEDIATE RELEASE 2.5mg By Mouth Every 4 hours as needed tablet po for moderate pain, pain rate 4-6 on pain scale 1-10. For pain 2.5mg 01/27 Inactiv e 2023 Every 4 hours as needed By Mouth False Oxycodone 5 mg tablet [generic] 01/27 Inactiv e 2023 53779 38271 1 Oxycodone 5 mg tablet [generic] 5mg By Mouth Every 4 hours as needed for severe pain for pain rate 7-10. For right pubis fracture 5mg 2023 Active 2023 44773 76991 1 Every 4 hours as needed By [...] For Muscle spasms 175mg 2023 Active 2023 12492 21403 1 Every 6 hours as needed By Mouth False Cephalexin 500 mg capsule [generic] 500mg By Mouth Every 8 hours For UTI 500mg 01/30 Active 2023 88688 47115 1 Every 8 hours By Mouth False Aspirin 81 mg chewable tablet [generic] 81 mg By Mouth Once daily For AAA 81 mg 2023 Active 2023 04030 90318 6 Once daily By Mouth False Colace 100 mg capsule 100mg By Mouth Twice daily For constipation 100mg 2023 Active 2023 59871 29864 1 Twice daily By Mouth False Enoxaparin 300 mg/3 mL subcutaneou s solution [generic] 20mg Subcutaneous Once daily For anticoag. 20mg 2023 Active 2023 77002 75621 1 Once daily Subcut aneous False Losartan 50 mg tablet [generic] 50 By Mouth Once daily For HTN 50 2023 Active 2023 80121 32089 9 Once daily By Mouth False Miralax 17 gram/dose oral powder 17 gram By Mouth Once daily For contispation 17 gram 2023 Active 2023 78755 94563 0 Once daily By Mouth False Senna 8.6 mg tablet 2 tabs By Mouth Once daily For constipation 2 tabs 2023 Active 2023 74574 89285 1 Once daily By Mouth False Simvastatin 20 mg tablet [generic] 20 mg By Mouth Once daily For Hyperlipidemi a 20 mg 2023 Active 2023 40920 05795 0 Once daily By Mouth False Spiriva with HandiHaler 18 mcg and inhalation capsules 1 capsule Inhalation Once daily For COPD 1 capsule 2023 Active 2023 56860 78076 1 Once daily Inhala tion False Ventolin HFA 90 mcg/actuati on aerosol inhaler 2 puff Inhalation Every 4 hours as needed For COPD 2 puff 2023 Active 2023 40888 80844 0 Every 4 hours as needed Inhala tion False ProSource No Carb 15 gram-60 kcal/30 mL oral liquid 30ml By Mouth Twice daily For Protien supplement 30ml 2023 Active 2023 87131 68928 5 Twice daily By Mouth False Albuterol sulfate 2.5 mg/3 mL (0.083 %) solution for nebulizatio n [generic] 3 ml Inhalation Every 6 hours as needed For wheezing 3 ml 2023 Active 2023 70868 70226 3 Every 6 hours as needed Inhala tion False Acetaminoph en 325 mg tablet [generic] 650 mg By Mouth Every 6 hours For Mild Pain 650 mg 2023 Active 2023 19344 87785 0 Every 6 hours By Mouth False Tylenol 325 mg tablet 2 tabs By Mouth Every 4 hours as needed For Pain DO NOT EXCEED 3000 MG APAP/24 Hours 2 tabs 2023 Active 2023 05507 63377 0 Every 4 hours as needed By Mouth False Tylenol 325 mg tablet 2 tabs By Mouth Every 4 hours as needed For Fever >100 DO NOT EXCEED 3000 MG APAP/24 Hours 2 tabs 2023 Active 2023 78767 55732 0 Every 4 hours as needed By Mouth False Dulcolax (bisacodyl) 10 mg rectal suppository One Suppository per rectum PRN if Milk of Magnisia ineffective. Give on day 5 of no BM 1 sup 2023 Active 2023 97640 12957 1 Daily as needed Rectal False Fleet Enema 19 gram-7 gram/118 mL Administer per rectum PRN one time if dulcolax suppository not effective. Give on day 6 of no BM 1 2023 Active 2023 62518 51505 6 Daily as needed Rectal False Milk of Magnesia 400 mg/5 mL oral suspension [Magnesium hydroxide] PRN 30ml By Mouth Daily as needed for constipation one time daily if no BM, on day 4 of no BM (PRN refer to instructions) For Constipation 30 mL 2023 Active 2023 05265 28776 6 Daily as needed By Mouth False [...] Temperature SpO2 Blood Sugar Pulse Respirations 210 12886 7 78.00 mm[Hg] - Lying Down 186.00 mm[Hg] - Lying Down 109.80 NI 97.90 Forehead Scan 91.00 % 92.00/ min 18.00/min 210 64940 1 74.00 mm[Hg] - Lying Down 147.00 mm[Hg] - Lying Down 85.00/ min 211 03180 2 72.00 mm[Hg] - Sitting 138.00 mm[Hg] - Sitting 98.40 Tympanic 86.00/ min 18.00/min 211 69659 2 59.00 mm[Hg] - Sitting 117.00 mm[Hg] - Sitting 98.20 Tympanic 99.00 % 81.00/ min 18.00/min 211 19083 5 69.00 mm[Hg] - Sitting 145.00 mm[Hg] - Sitting 211 54717 9 69.00 mm[Hg] - Sitting 145.00 mm[Hg] - Sitting 211 96740 5 69.00 mm[Hg] - Sitting 145.00 mm[Hg] - Sitting 211 07937 6 69.00 mm[Hg] - Sitting
--- OUTSIDE RECORDS SUMMARY | 2024-04-10 03:22 | External Medical Summary | Continuity Of Care Document ---
Author Name Unknown Address [address] [address] Organization [facility] () Care Team Providers Care Watch Caser Name Role Phone DO Alonso Amy Primary Care Provider [phone] Allergies Allergy Reaction Start Date End Date [...] 3 0.1 mL 01/29 Inactiv e 2023 28315 43900 0 1 time Intrad ermal False Tubersol 5 tub. unit/0.1 mL intradermal injection solution [Tuberculin PPD] 0.1mL Intradermal 1 time For PPD 2nd Step Give 2nd Step PPD Day 1 and Read results Day 3 (schedule 7 days after 1st READ) 0.1mL 02/07 Active 2023 29288 92375 0 1 time Intrad ermal False Oxycodone 5 mg tablet [generic] 5mg By Mouth Every 4 hours as needed for severe pain for pain rate 7-10. For right pubis fracture 5mg 01/27 Inactiv e 2023 65412 48211 1 Every 4 hours as needed By Mouth False OXYCODONE 5 MG TABLET [GENERIC]IM MEDIATE RELEASE 2.5mg By Mouth Every 4 hours as needed tablet po for moderate pain, pain rate 4-6 on pain scale 1-10. For pain 2.5mg 01/27 Inactiv e 2023 Every 4 hours as needed By Mouth False Oxycodone 5 mg tablet [generic] 01/27 Inactiv e 2023 00196 16085 1 Oxycodone 5 mg tablet [generic] 5mg By Mouth Every 4 hours as needed for severe pain for pain rate 7-10. For right pubis fracture 5mg 01/29 Inactiv e 2023 28854 28143 1 Every 4 hours as needed By [...] For Muscle spasms 175mg 2023 Active 2023 04812 67782 1 Every 6 hours as needed By Mouth False Cephalexin 500 mg capsule [generic] 500mg By Mouth Every 8 hours For UTI 500mg 01/30 Inactiv e 2023 16879 57490 1 Every 8 hours By Mouth False Aspirin 81 mg chewable tablet [generic] 81 mg By Mouth Once daily For AAA 81 mg 2023 Active 2023 73244 01568 6 Once daily By Mouth False Colace 100 mg capsule 100mg By Mouth Twice daily For constipation 100mg 2023 Active 2023 40417 83811 1 Twice daily By Mouth False Enoxaparin 300 mg/3 mL subcutaneou s solution [generic] 20mg Subcutaneous Once daily For anticoag. 20mg 2023 Active 2023 43372 87073 1 Once daily Subcut aneous False Losartan 50 mg tablet [generic] 50 By Mouth Once daily For HTN 50 2023 Active 2023 93016 34790 9 Once daily By Mouth False Miralax 17 gram/dose oral powder 17 gram By Mouth Once daily For contispation 17 gram 2023 Active 2023 98684 75287 0 Once daily By Mouth False Senna 8.6 mg tablet 2 tabs By Mouth Once daily For constipation 2 tabs 2023 Active 2023 34984 50112 1 Once daily By Mouth False Simvastatin 20 mg tablet [generic] 20 mg By Mouth Once daily For Hyperlipidemi a 20 mg 2023 Active 2023 85054 51047 0 Once daily By Mouth False Spiriva with HandiHaler 18 mcg and inhalation capsules 1 capsule Inhalation Once daily For COPD 1 capsule 2023 Active 2023 41150 79948 1 Once daily Inhala tion False Ventolin HFA 90 mcg/actuati on aerosol inhaler 2 puff Inhalation Every 4 hours as needed For COPD 2 puff 2023 Active 2023 36729 56997 0 Every 4 hours as needed Inhala tion False ProSource No Carb 15 gram-60 kcal/30 mL oral liquid 30ml By Mouth Twice daily For Protien supplement 30ml 2023 Active 2023 36705 99199 5 Twice daily By Mouth False Albuterol sulfate 2.5 mg/3 mL (0.083 %) solution for nebulizatio n [generic] 3 ml Inhalation Every 6 hours as needed For wheezing 3 ml 2023 Active 2023 01754 40410 3 Every 6 hours as needed Inhala tion False Acetaminoph en 325 mg tablet [generic] 650 mg By Mouth Every 6 hours For Mild Pain 650 mg 01/29 Inactiv e 2023 25452 52304 0 Every 6 hours By Mouth False Tylenol 325 mg tablet 2 tabs By Mouth Every 4 hours as needed For Pain DO NOT EXCEED 3000 MG APAP/24 Hours 2 tabs 2023 Active 2023 72504 95206 0 Every 4 hours as needed By Mouth False Tylenol 325 mg tablet 2 tabs By Mouth Every 4 hours as needed For Fever >100 DO NOT EXCEED 3000 MG APAP/24 Hours 2 tabs 2023 Active 2023 72409 13415 0 Every 4 hours as needed By Mouth False Dulcolax (bisacodyl) 10 mg rectal suppository One Suppository per rectum PRN if Milk of Magnisia ineffective. Give on day 5 of no BM 1 sup 2023 Active 2023 80453 75511 1 Daily as needed Rectal False Fleet Enema 19 gram-7 gram/118 mL Administer per rectum PRN one time if dulcolax suppository not effective. Give on day 6 of no BM 1 2023 Active 2023 46740 38363 6 Daily as needed Rectal False Milk of Magnesia 400 mg/5 mL oral suspension [Magnesium hydroxide] PRN 30ml By Mouth Daily as needed for constipation one time daily if no BM, on day 4 of no BM (PRN refer to instructions) For Constipation 30 mL 2023 Active 2023 07906 95374 6 Daily as needed By Mouth False Oxycodone 5 mg tablet [generic] 01/29 Inactiv e 2023 76416 23442 1 Oxycodone 5 mg tablet [generic] 5mg By Mouth Every 4 hours as needed for severe pain for pain rate 7-10. For right pubis fracture 5mg 2023 Active 2023 78441 32404 1 Every 4 hours as needed By Mouth False Cymbalta 30 mg capsule,del ayed release 30 mg By Mouth Once daily For Depression 30 mg 2023 Active 2023 95185 93601 0 Once daily By Mouth False Acetaminoph en 500 mg tablet [generic] 1000 mg By Mouth Twice daily not to exceed 3gm APAP in 24 hours For Pain 1000 mg 2023 Active 2023 85396 70788 8 Twice daily By Mouth False Problems [...] Temperature SpO2 Blood Sugar Pulse Respirations 210 63871 7 78.00 mm[Hg] - Lying Down 186.00 mm[Hg] - Lying Down 109.80 NI 97.90 Forehead Scan 91.00 % 92.00/ min 18.00/min 210 98957 1 74.00 mm[Hg] - Lying Down 147.00 mm[Hg] - Lying Down 85.00/ min 211 04160 2 72.00 mm[Hg] - Sitting 138.00 mm[Hg] - Sitting 98.40 Tympanic 86.00/ min 18.00/min 211 21894 2 59.00 mm[Hg] - Sitting 117.00 mm[Hg] - Sitting 98.20 Tympanic 99.00 % 81.00/ min 18.00/min 10964 211 24021 5 69.00 mm[Hg] - Sitting 145.00 mm[Hg] - Sitting 64140 211 15443 9 69.00 mm[Hg] - Sitting 145.00 mm[Hg] - Sitting 98181 211 57006 5 69.00 mm[Hg] - Sitting 145.00 mm[Hg] - Sitting 03297 211 03221 6 69.00 mm[Hg] - Sitting 49790 212 49634 7 59.00 mm[Hg] - Sitting 117.00 mm[Hg] - Sitting 98.20 Tympanic 81.00/ min 18.00/min 96568 212 92724 9 97.80 Tympanic 08415 212 99209 6 55.00 mm[Hg] - Sitting 109.00 mm[Hg] - Sitting 97.30 Tympanic 94.00 % 75.00/ min 18.00/min 32928 212 01505 5 68.00 mm[Hg] - Sitting 128.00 mm[Hg] - Sitting 97.80 Tympanic 80.00/ min 18.00/min 53151 212 97111 4 97.50 Tympanic 05272 212 25373 9 97384 212 73664 6 71.00 mm[Hg] - Sitting 117.00 mm[Hg] - Sitting 36428 213 76655 5 73.00 mm[Hg] - Lying Down 127.00 mm[Hg] - Lying Down
--- OUTSIDE RECORDS SUMMARY | 2024-04-10 03:22 | External Medical Summary | Continuity Of Care Document ---
Author Name Unknown Address [address] [address] Organization [facility] () Care Team Providers Care Nursery Supervisor Name Role Phone DO Alonso Amy Primary Care Provider [phone] Allergies Allergy Reaction Start Date End Date [...] 3 0.1 mL 01/29 Inactiv e 2023 66021 48515 0 1 time Intrad ermal False Tubersol 5 tub. unit/0.1 mL intradermal injection solution [Tuberculin PPD] 0.1mL Intradermal 1 time For PPD 2nd Step Give 2nd Step PPD Day 1 and Read results Day 3 (schedule 7 days after 1st READ) 0.1mL 02/07 Active 2023 64144 92084 0 1 time Intrad ermal False Oxycodone 5 mg tablet [generic] 5mg By Mouth Every 4 hours as needed for severe pain for pain rate 7-10. For right pubis fracture 5mg 01/27 Inactiv e 2023 15923 53523 1 Every 4 hours as needed By Mouth False OXYCODONE 5 MG TABLET [GENERIC]IM MEDIATE RELEASE 2.5mg By Mouth Every 4 hours as needed tablet po for moderate pain, pain rate 4-6 on pain scale 1-10. For pain 2.5mg 01/27 Inactiv e 2023 Every 4 hours as needed By Mouth False Oxycodone 5 mg tablet [generic] 01/27 Inactiv e 2023 32645 60003 1 Oxycodone 5 mg tablet [generic] 5mg By Mouth Every 4 hours as needed for severe pain for pain rate 7-10. For right pubis fracture 5mg 01/29 Inactiv e 2023 61079 67556 1 Every 4 hours as needed By [...] For Muscle spasms 175mg 2023 Active 2023 04564 68537 1 Every 6 hours as needed By Mouth False Cephalexin 500 mg capsule [generic] 500mg By Mouth Every 8 hours For UTI 500mg 01/30 Inactiv e 2023 38145 15660 1 Every 8 hours By Mouth False Aspirin 81 mg chewable tablet [generic] 81 mg By Mouth Once daily For AAA 81 mg 2023 Active 2023 23292 13390 6 Once daily By Mouth False Colace 100 mg capsule 100mg By Mouth Twice daily For constipation 100mg 2023 Active 2023 18928 04286 1 Twice daily By Mouth False Enoxaparin 300 mg/3 mL subcutaneou s solution [generic] 20mg Subcutaneous Once daily For anticoag. 20mg 2023 Active 2023 39022 23164 1 Once daily Subcut aneous False Losartan 50 mg tablet [generic] 50 By Mouth Once daily For HTN 50 2023 Active 2023 03321 63174 9 Once daily By Mouth False Miralax 17 gram/dose oral powder 17 gram By Mouth Once daily For contispation 17 gram 2023 Active 2023 17161 91404 0 Once daily By Mouth False Senna 8.6 mg tablet 2 tabs By Mouth Once daily For constipation 2 tabs 2023 Active 2023 86465 31989 1 Once daily By Mouth False Simvastatin 20 mg tablet [generic] 20 mg By Mouth Once daily For Hyperlipidemi a 20 mg 2023 Active 2023 94733 46162 0 Once daily By Mouth False Spiriva with HandiHaler 18 mcg and inhalation capsules 1 capsule Inhalation Once daily For COPD 1 capsule 2023 Active 2023 14471 01736 1 Once daily Inhala tion False Ventolin HFA 90 mcg/actuati on aerosol inhaler 2 puff Inhalation Every 4 hours as needed For COPD 2 puff 2023 Active 2023 84520 73275 0 Every 4 hours as needed Inhala tion False ProSource No Carb 15 gram-60 kcal/30 mL oral liquid 30ml By Mouth Twice daily For Protien supplement 30ml 2023 Active 2023 33673 59618 5 Twice daily By Mouth False Albuterol sulfate 2.5 mg/3 mL (0.083 %) solution for nebulizatio n [generic] 3 ml Inhalation Every 6 hours as needed For wheezing 3 ml 2023 Active 2023 60148 40628 3 Every 6 hours as needed Inhala tion False Acetaminoph en 325 mg tablet [generic] 650 mg By Mouth Every 6 hours For Mild Pain 650 mg 01/29 Inactiv e 2023 36940 00112 0 Every 6 hours By Mouth False Tylenol 325 mg tablet 2 tabs By Mouth Every 4 hours as needed For Pain DO NOT EXCEED 3000 MG APAP/24 Hours 2 tabs 2023 Active 2023 05679 73381 0 Every 4 hours as needed By Mouth False Tylenol 325 mg tablet 2 tabs By Mouth Every 4 hours as needed For Fever >100 DO NOT EXCEED 3000 MG APAP/24 Hours 2 tabs 2023 Active 2023 52468 13463 0 Every 4 hours as needed By Mouth False Dulcolax (bisacodyl) 10 mg rectal suppository One Suppository per rectum PRN if Milk of Magnisia ineffective. Give on day 5 of no BM 1 sup 2023 Active 2023 03125 18582 1 Daily as needed Rectal False Fleet Enema 19 gram-7 gram/118 mL Administer per rectum PRN one time if dulcolax suppository not effective. Give on day 6 of no BM 1 2023 Active 2023 13302 66388 6 Daily as needed Rectal False Milk of Magnesia 400 mg/5 mL oral suspension [Magnesium hydroxide] PRN 30ml By Mouth Daily as needed for constipation one time daily if no BM, on day 4 of no BM (PRN refer to instructions) For Constipation 30 mL 2023 Active 2023 23110 28117 6 Daily as needed By Mouth False Oxycodone 5 mg tablet [generic] 01/29 Inactiv e 2023 05125 58752 1 Oxycodone 5 mg tablet [generic] 5mg By Mouth Every 4 hours as needed for severe pain for pain rate 7-10. For right pubis fracture 5mg 2023 Active 2023 18134 16149 1 Every 4 hours as needed By Mouth False Cymbalta 30 mg capsule,del ayed release 30 mg By Mouth Once daily For Depression 30 mg 2023 Active 2023 83991 39491 0 Once daily By Mouth False Acetaminoph en 500 mg tablet [generic] 1000 mg By Mouth Twice daily not to exceed 3gm APAP in 24 hours For Pain 1000 mg 2023 Active 2023 44154 84446 8 Twice daily By Mouth False Problems [...] Temperature SpO2 Blood Sugar Pulse Respirations 210 21936 7 78.00 mm[Hg] - Lying Down 186.00 mm[Hg] - Lying Down 109.80 NI 97.90 Forehead Scan 91.00 % 92.00/ min 18.00/min 210 84947 1 74.00 mm[Hg] - Lying Down 147.00 mm[Hg] - Lying Down 85.00/ min 211 41164 2 72.00 mm[Hg] - Sitting 138.00 mm[Hg] - Sitting 98.40 Tympanic 86.00/ min 18.00/min 211 92810 2 59.00 mm[Hg] - Sitting 117.00 mm[Hg] - Sitting 98.20 Tympanic 99.00 % 81.00/ min 18.00/min 33198 211 13893 5 69.00 mm[Hg] - Sitting 145.00 mm[Hg] - Sitting 91907 211 22698 9 69.00 mm[Hg] - Sitting 145.00 mm[Hg] - Sitting 69458 211 71458 5 69.00 mm[Hg] - Sitting 145.00 mm[Hg] - Sitting 95079 211 82081 6 69.00 mm[Hg] - Sitting 34859 212 97884 7 59.00 mm[Hg] - Sitting 117.00 mm[Hg] - Sitting 98.20 Tympanic 81.00/ min 18.00/min 21536 212 50888 9 97.80 Tympanic 03172 212 95806 6 55.00 mm[Hg] - Sitting 109.00 mm[Hg] - Sitting 97.30 Tympanic 94.00 % 75.00/ min 18.00/min 40104 212 79988 5 68.00 mm[Hg] - Sitting 128.00 mm[Hg] - Sitting 97.80 Tympanic 80.00/ min 18.00/min 87286 212 15619 4 97.50 Tympanic 02061 212 94157 9 42093 212 45075 6 71.00 mm[Hg] - Sitting 117.00 mm[Hg] - Sitting 12223 213 55574 0 60.00 mm[Hg] - Sitting 116.00 mm[Hg] - Sitting 98.40 Forehead Scan 94.00 % 72.00/ min 16.00/min 58315 213 65636 7 70.00 mm[Hg] - Sitting 118.00 mm[Hg] - Sitting 98.00 Tympanic 82.00/ min 18.00/min 21302 213 95232 5 73.00 mm[Hg] - Lying Down 127.00 mm[Hg] - Lying Down 72986 213 46029 3
--- OUTSIDE RECORDS SUMMARY | 2024-04-10 03:22 | External Medical Summary | Continuity Of Care Document ---
Author Name Unknown Address [address] [address] Organization [facility] () Care Team Providers Care [facility] [employer] Wet Process Name Role Phone DO Alonso Amy Primary Care Provider [phone] Allergies Allergy Reaction Start Date End Date [...] 3 0.1 mL 01/29 Inactiv e 2023 46985 48130 0 1 time Intrad ermal False Tubersol 5 tub. unit/0.1 mL intradermal injection solution [Tuberculin PPD] 0.1mL Intradermal 1 time For PPD 2nd Step Give 2nd Step PPD Day 1 and Read results Day 3 (schedule 7 days after 1st READ) 0.1mL 02/07 Active 2023 07159 62211 0 1 time Intrad ermal False Oxycodone 5 mg tablet [generic] 5mg By Mouth Every 4 hours as needed for severe pain for pain rate 7-10. For right pubis fracture 5mg 01/27 Inactiv e 2023 79819 55072 1 Every 4 hours as needed By Mouth False OXYCODONE 5 MG TABLET [GENERIC]IM MEDIATE RELEASE 2.5mg By Mouth Every 4 hours as needed tablet po for moderate pain, pain rate 4-6 on pain scale 1-10. For pain 2.5mg 01/27 Inactiv e 2023 Every 4 hours as needed By Mouth False Oxycodone 5 mg tablet [generic] 01/27 Inactiv e 2023 72102 79244 1 Oxycodone 5 mg tablet [generic] 5mg By Mouth Every 4 hours as needed for severe pain for pain rate 7-10. For right pubis fracture 5mg 01/29 Inactiv e 2023 37343 87944 1 Every 4 hours as needed By [...] For Muscle spasms 175mg 2023 Active 2023 40440 35599 1 Every 6 hours as needed By Mouth False Cephalexin 500 mg capsule [generic] 500mg By Mouth Every 8 hours For UTI 500mg 01/30 Active 2023 01052 12120 1 Every 8 hours By Mouth False Aspirin 81 mg chewable tablet [generic] 81 mg By Mouth Once daily For AAA 81 mg 2023 Active 2023 00544 39098 6 Once daily By Mouth False Colace 100 mg capsule 100mg By Mouth Twice daily For constipation 100mg 2023 Active 2023 84467 30686 1 Twice daily By Mouth False Enoxaparin 300 mg/3 mL subcutaneou s solution [generic] 20mg Subcutaneous Once daily For anticoag. 20mg 2023 Active 2023 43073 65285 1 Once daily Subcut aneous False Losartan 50 mg tablet [generic] 50 By Mouth Once daily For HTN 50 2023 Active 2023 01401 83596 9 Once daily By Mouth False Miralax 17 gram/dose oral powder 17 gram By Mouth Once daily For contispation 17 gram 2023 Active 2023 16172 69658 0 Once daily By Mouth False Senna 8.6 mg tablet 2 tabs By Mouth Once daily For constipation 2 tabs 2023 Active 2023 25228 56362 1 Once daily By Mouth False Simvastatin 20 mg tablet [generic] 20 mg By Mouth Once daily For Hyperlipidemi a 20 mg 2023 Active 2023 16687 78225 0 Once daily By Mouth False Spiriva with HandiHaler 18 mcg and inhalation capsules 1 capsule Inhalation Once daily For COPD 1 capsule 2023 Active 2023 92311 05501 1 Once daily Inhala tion False Ventolin HFA 90 mcg/actuati on aerosol inhaler 2 puff Inhalation Every 4 hours as needed For COPD 2 puff 2023 Active 2023 42629 84255 0 Every 4 hours as needed Inhala tion False ProSource No Carb 15 gram-60 kcal/30 mL oral liquid 30ml By Mouth Twice daily For Protien supplement 30ml 2023 Active 2023 34456 07655 5 Twice daily By Mouth False Albuterol sulfate 2.5 mg/3 mL (0.083 %) solution for nebulizatio n [generic] 3 ml Inhalation Every 6 hours as needed For wheezing 3 ml 2023 Active 2023 07333 79270 3 Every 6 hours as needed Inhala tion False Acetaminoph en 325 mg tablet [generic] 650 mg By Mouth Every 6 hours For Mild Pain 650 mg 2023 Active 2023 06207 29255 0 Every 6 hours By Mouth False Tylenol 325 mg tablet 2 tabs By Mouth Every 4 hours as needed For Pain DO NOT EXCEED 3000 MG APAP/24 Hours 2 tabs 2023 Active 2023 41562 33546 0 Every 4 hours as needed By Mouth False Tylenol 325 mg tablet 2 tabs By Mouth Every 4 hours as needed For Fever >100 DO NOT EXCEED 3000 MG APAP/24 Hours 2 tabs 2023 Active 2023 59112 39735 0 Every 4 hours as needed By Mouth False Dulcolax (bisacodyl) 10 mg rectal suppository One Suppository per rectum PRN if Milk of Magnisia ineffective. Give on day 5 of no BM 1 sup 2023 Active 2023 30127 67460 1 Daily as needed Rectal False Fleet Enema 19 gram-7 gram/118 mL Administer per rectum PRN one time if dulcolax suppository not effective. Give on day 6 of no BM 1 2023 Active 2023 16475 99171 6 Daily as needed Rectal False Milk of Magnesia 400 mg/5 mL oral suspension [Magnesium hydroxide] PRN 30ml By Mouth Daily as needed for constipation one time daily if no BM, on day 4 of no BM (PRN refer to instructions) For Constipation 30 mL 2023 Active 2023 46794 49484 6 Daily as needed By Mouth False Oxycodone 5 mg tablet [generic] 01/29 Inactiv e 2023 93602 61045 1 Oxycodone 5 mg tablet [generic] 5mg By Mouth Every 4 hours as needed for severe pain for pain rate 7-10. For right pubis fracture 5mg 2023 Active 2023 33598 39799 1 Every 4 hours as needed By [...] weight Temperature SpO2 Blood Sugar Pulse Respirations 65700 7 78.00 mm[Hg] - Lying Down 186.00 mm[Hg] - Lying Down 109.80 NI 97.90 Forehead Scan 91.00 % 92.00/ min 18.00/min 210 56463 1 74.00 mm[Hg] - Lying Down 147.00 mm[Hg] - Lying Down 85.00/ min 211 90164 2 72.00 mm[Hg] - Sitting 138.00 mm[Hg] - Sitting 98.40 Tympanic 86.00/ min 18.00/min 211 41086 2 59.00 mm[Hg] - Sitting 117.00 mm[Hg] - Sitting 98.20 Tympanic 99.00 % 81.00/ min 18.00/min 211 13768 5 69.00 mm[Hg] - Sitting 145.00 mm[Hg] - Sitting 211 21044 9 69.00 mm[Hg] - Sitting 145.00 mm[Hg] - Sitting 211 84544 5 69.00 mm[Hg] - Sitting 145.00 mm[Hg] - Sitting 211 90201 6 69.00 mm[Hg] - Sitting 212 17741 7 59.00 mm[Hg] - Sitting 117.00 mm[Hg] - Sitting 98.20 Tympanic 81.00/ min 18.00/min 15090 212 98788 9 212 49574 6 71.00 mm[Hg] - Sitting 117.00 mm[Hg] - Sitting
--- OUTSIDE RECORDS SUMMARY | 2024-04-10 03:23 | External Medical Summary | Continuity Of Care Document ---
Author Name Unknown Address [address] [address] Organization [facility] () Care Team Providers Care Azure Architect Name Role Phone DO Alonso Amy Primary Care Provider [phone] Allergies Allergy Reaction Start Date End Date Status NO KNOWN DRUG ALLERGIES 01/28/2024 I nactive DIAMOX SEQUELS Active PERCODAN Active Medications Medication Instructions Dosage Start Date End Date Status Order Date Drug Code Frequency Route of Admin Diagnosis Code Substitutions Allowed Oxycodone 5 mg tablet [generic] 5mg By Mouth Every 4 hours as needed for severe pain for pain rate 7-10. For right pubis fracture 5mg 01/27 Inactiv e 2023 81746 34361 1 Every 4 hours as needed By Mouth False OXYCODONE 5 MG TABLET [GENERIC]IM MEDIATE RELEASE 2.5mg By Mouth Every 4 hours as needed tablet po for moderate pain, pain rate 4-6 on pain scale 1-10. For pain 2.5mg 01/27 Inactiv e 2023 Every 4 hours as needed By Mouth False Oxycodone 5 mg tablet [generic] 01/27 Inactiv e 2023 16466 31553 1 Oxycodone 5 mg tablet [generic] 5mg By Mouth Every 4 hours as needed for severe pain for pain rate 7-10. For right pubis fracture 5mg 2023 0000 Active 2023 01574 69361 1 Every 4 hours as needed By [...] For Muscle spasms 175mg 2023 Active 2023 94171 19158 1 Every 6 hours as needed By Mouth False Cephalexin 500 mg capsule [generic] 500mg By Mouth Every 8 hours For UTI 500mg 01/30 Active 2023 64729 56328 1 Every 8 hours By Mouth False Aspirin 81 mg chewable tablet [generic] 81 mg By Mouth Once daily For AAA 81 mg 2023 Active 2023 71236 89685 6 Once daily By Mouth False Colace 100 mg capsule 100mg By Mouth Twice daily For constipation 100mg 2023 Active 2023 46325 13429 1 Twice daily By Mouth False Enoxaparin 300 mg/3 mL subcutaneou s solution [generic] 20mg Subcutaneous Once daily For anticoag. 20mg 2023 Active 2023 84453 80193 1 Once daily Subcut aneous False Losartan 50 mg tablet [generic] 50 By Mouth Once daily For HTN 50 2023 Active 2023 81556 35125 9 Once daily By Mouth False Miralax 17 gram/dose oral powder 17 gram By Mouth Once daily For contispation 17 gram 2023 Active 2023 23283 87530 0 Once daily By Mouth False Senna 8.6 mg tablet 2 tabs By Mouth Once daily For constipation 2 tabs 2023 Active 2023 47777 05901 1 Once daily By Mouth False Simvastatin 20 mg tablet [generic] 20 mg By Mouth Once daily For Hyperlipidemi a 20 mg 2023 Active 2023 49572 18603 0 Once daily By Mouth False Spiriva with HandiHaler 18 mcg and inhalation capsules 1 capsule Inhalation Once daily For COPD 1 capsule 2023 Active 2023 80692 71134 1 Once daily Inhala tion False Ventolin HFA 90 mcg/actuati on aerosol inhaler 2 puff Inhalation Every 4 hours as needed For COPD 2 puff 2023 Active 2023 59434 06700 0 Every 4 hours as needed Inhala tion False ProSource No Carb 15 gram-60 kcal/30 mL oral liquid 30ml By Mouth Twice daily For Protien supplement 30ml 2023 Active 2023 56354 49097 5 Twice daily By Mouth False VITAL SIGNS Date Time Diastolic blood pressure Systolic blood pressure Body height Body weight Temperature SpO2 Blood Sugar Pulse Respirations 210 82537 7 78.00 mm[Hg] - Lying Down 186.00 mm[Hg] - Lying Down 109.80 NI 97.90 Forehead Scan 91.00 % 92.00/ min 18.00/min 210 22596 1 74.00 mm[Hg] - Lying Down 147.00 mm[Hg] - Lying Down 85.00/ min
--- OUTSIDE RECORDS SUMMARY | 2024-04-10 03:23 | External Medical Summary | Continuity Of Care Document ---
Author Name Unknown Address [address] [address] [facility] () Care Team Providers Care Novelty Twister Tender Name Role Phone DO Alonso Amy Primary Care Provider [phone] Allergies Allergy Reaction Start Date End Date [...] Day 3 0.1 mL 01/29 Active 2023 24342 18272 0 1 time Intrad ermal False Tubersol 5 tub. unit/0.1 mL intradermal injection solution [Tuberculin PPD] 0.1mL Intradermal 1 time For PPD 2nd Step Give 2nd Step PPD Day 1 and Read results Day 3 (schedule 7 days after 1st READ) 0.1mL 02/07 Active 2023 18747 83370 0 1 time Intrad ermal False Oxycodone 5 mg tablet [generic] 5mg By Mouth Every 4 hours as needed for severe pain for pain rate 7-10. For right pubis fracture 5mg 01/27 Inactiv e 2023 92462 50094 1 Every 4 hours as needed By Mouth False OXYCODONE 5 MG TABLET [GENERIC]IM MEDIATE RELEASE 2.5mg By Mouth Every 4 hours as needed tablet po for moderate pain, pain rate 4-6 on pain scale 1-10. For pain 2.5mg 01/27 Inactiv e 2023 Every 4 hours as needed By Mouth False Oxycodone 5 mg tablet [generic] 01/27 Inactiv e 2023 64778 67528 1 Oxycodone 5 mg tablet [generic] 5mg By Mouth Every 4 hours as needed for severe pain for pain rate 7-10. For right pubis fracture 5mg 2023 Active 2023 08315 71921 1 Every 4 hours as needed By [...] For Muscle spasms 175mg 2023 Active 2023 12509 20747 1 Every 6 hours as needed By Mouth False Cephalexin 500 mg capsule [generic] 500mg By Mouth Every 8 hours For UTI 500mg 01/30 Active 2023 04730 12664 1 Every 8 hours By Mouth False Aspirin 81 mg chewable tablet [generic] 81 mg By Mouth Once daily For AAA 81 mg 2023 Active 2023 60045 98009 6 Once daily By Mouth False Colace 100 mg capsule 100mg By Mouth Twice daily For constipation 100mg 2023 Active 2023 84705 04607 1 Twice daily By Mouth False Enoxaparin 300 mg/3 mL subcutaneou s solution [generic] 20mg Subcutaneous Once daily For anticoag. 20mg 2023 Active 2023 27628 75548 1 Once daily Subcut aneous False Losartan 50 mg tablet [generic] 50 By Mouth Once daily For HTN 50 2023 Active 2023 19485 32887 9 Once daily By Mouth False Miralax 17 gram/dose oral powder 17 gram By Mouth Once daily For contispation 17 gram 2023 Active 2023 14220 21864 0 Once daily By Mouth False Senna 8.6 mg tablet 2 tabs By Mouth Once daily For constipation 2 tabs 2023 Active 2023 76325 12765 1 Once daily By Mouth False Simvastatin 20 mg tablet [generic] 20 mg By Mouth Once daily For Hyperlipidemi a 20 mg 2023 Active 2023 12400 35406 0 Once daily By Mouth False Spiriva with HandiHaler 18 mcg and inhalation capsules 1 capsule Inhalation Once daily For COPD 1 capsule 2023 Active 2023 35240 08357 1 Once daily Inhala tion False Ventolin HFA 90 mcg/actuati on aerosol inhaler 2 puff Inhalation Every 4 hours as needed For COPD 2 puff 2023 Active 2023 48894 19355 0 Every 4 hours as needed Inhala tion False ProSource No Carb 15 gram-60 kcal/30 mL oral liquid 30ml By Mouth Twice daily For Protien supplement 30ml 2023 Active 2023 93184 04799 5 Twice daily By Mouth False Albuterol sulfate 2.5 mg/3 mL (0.083 %) solution for nebulizatio n [generic] 3 ml Inhalation Every 6 hours as needed For wheezing 3 ml 2023 Active 2023 96330 52188 3 Every 6 hours as needed Inhala tion False Acetaminoph en 325 mg tablet [generic] 650 mg By Mouth Every 6 hours For Mild Pain 650 mg 2023 Active 2023 82597 60820 0 Every 6 hours By Mouth False Tylenol 325 mg tablet 2 tabs By Mouth Every 4 hours as needed For Pain DO NOT EXCEED 3000 MG APAP/24 Hours 2 tabs 2023 Active 2023 33612 96593 0 Every 4 hours as needed By Mouth False Tylenol 325 mg tablet 2 tabs By Mouth Every 4 hours as needed For Fever >100 DO NOT EXCEED 3000 MG APAP/24 Hours 2 tabs 2023 Active 2023 47055 39555 0 Every 4 hours as needed By Mouth False Dulcolax (bisacodyl) 10 mg rectal suppository One Suppository per rectum PRN if Milk of Magnisia ineffective. Give on day 5 of no BM 1 sup 2023 Active 2023 13685 23629 1 Daily as needed Rectal False Fleet Enema 19 gram-7 gram/118 mL Administer per rectum PRN one time if dulcolax suppository not effective. Give on day 6 of no BM 1 2023 Active 2023 55087 08461 6 Daily as needed Rectal False Milk of Magnesia 400 mg/5 mL oral suspension [Magnesium hydroxide] PRN 30ml By Mouth Daily as needed for constipation one time daily if no BM, on day 4 of no BM (PRN refer to instructions) For Constipation 30 mL 2023 Active 2023 73303 23478 6 Daily as needed By Mouth False VITAL SIGNS Date Time Diastolic blood pressure Systolic blood pressure Body height Body weight Temperature SpO2 Blood Sugar Pulse Respirations 210 92475 7 78.00 mm[Hg] - Lying Down 186.00 mm[Hg] - Lying Down 109.80 NI 97.90 Forehead Scan 91.00 % 92.00/ min 18.00/min 210 62646 1 74.00 mm[Hg] - Lying Down 147.00 mm[Hg] - Lying Down 85.00/ min
--- OUTSIDE RECORDS SUMMARY | 2024-04-10 03:23 | External Medical Summary | Continuity Of Care Document ---
Author Name Unknown Address [address] [address] Organization [facility] () Care Team Providers Care Plate Grainer Name Role Phone DO Alonso Amy Primary Care Provider [phone] Allergies Allergy Reaction Start Date End Date [...] Day 3 0.1 mL 01/29 Active 2023 13557 64726 0 1 time Intrad ermal False Tubersol 5 tub. unit/0.1 mL intradermal injection solution [Tuberculin PPD] 0.1mL Intradermal 1 time For PPD 2nd Step Give 2nd Step PPD Day 1 and Read results Day 3 (schedule 7 days after 1st READ) 0.1mL 02/07 Active 2023 05440 63646 0 1 time Intrad ermal False Oxycodone 5 mg tablet [generic] 5mg By Mouth Every 4 hours as needed for severe pain for pain rate 7-10. For right pubis fracture 5mg 01/27 Inactiv e 2023 26264 93658 1 Every 4 hours as needed By Mouth False OXYCODONE 5 MG TABLET [GENERIC]IM MEDIATE RELEASE 2.5mg By Mouth Every 4 hours as needed tablet po for moderate pain, pain rate 4-6 on pain scale 1-10. For pain 2.5mg 01/27 Inactiv e 2023 Every 4 hours as needed By Mouth False Oxycodone 5 mg tablet [generic] 01/27 Inactiv e 2023 64102 08524 1 Oxycodone 5 mg tablet [generic] 5mg By Mouth Every 4 hours as needed for severe pain for pain rate 7-10. For right pubis fracture 5mg 2023 Active 2023 14654 33889 1 Every 4 hours as needed By [...] For Muscle spasms 175mg 2023 Active 2023 80381 29379 1 Every 6 hours as needed By Mouth False Cephalexin 500 mg capsule [generic] 500mg By Mouth Every 8 hours For UTI 500mg 01/30 Active 2023 57222 96044 1 Every 8 hours By Mouth False Aspirin 81 mg chewable tablet [generic] 81 mg By Mouth Once daily For AAA 81 mg 2023 Active 2023 10819 71718 6 Once daily By Mouth False Colace 100 mg capsule 100mg By Mouth Twice daily For constipation 100mg 2023 Active 2023 90124 95146 1 Twice daily By Mouth False Enoxaparin 300 mg/3 mL subcutaneou s solution [generic] 20mg Subcutaneous Once daily For anticoag. 20mg 2023 Active 2023 78878 99424 1 Once daily Subcut aneous False Losartan 50 mg tablet [generic] 50 By Mouth Once daily For HTN 50 2023 Active 2023 74102 09437 9 Once daily By Mouth False Miralax 17 gram/dose oral powder 17 gram By Mouth Once daily For contispation 17 gram 2023 Active 2023 27346 84436 0 Once daily By Mouth False Senna 8.6 mg tablet 2 tabs By Mouth Once daily For constipation 2 tabs 2023 Active 2023 57276 75165 1 Once daily By Mouth False Simvastatin 20 mg tablet [generic] 20 mg By Mouth Once daily For Hyperlipidemi a 20 mg 2023 Active 2023 97158 54679 0 Once daily By Mouth False Spiriva with HandiHaler 18 mcg and inhalation capsules 1 capsule Inhalation Once daily For COPD 1 capsule 2023 Active 2023 16425 51284 1 Once daily Inhala tion False Ventolin HFA 90 mcg/actuati on aerosol inhaler 2 puff Inhalation Every 4 hours as needed For COPD 2 puff 2023 Active 2023 61448 10502 0 Every 4 hours as needed Inhala tion False ProSource No Carb 15 gram-60 kcal/30 mL oral liquid 30ml By Mouth Twice daily For Protien supplement 30ml 2023 Active 2023 38237 17241 5 Twice daily By Mouth False Albuterol sulfate 2.5 mg/3 mL (0.083 %) solution for nebulizatio n [generic] 3 ml Inhalation Every 6 hours as needed For wheezing 3 ml 2023 Active 2023 83433 55588 3 Every 6 hours as needed Inhala tion False Acetaminoph en 325 mg tablet [generic] 650 mg By Mouth Every 6 hours For Mild Pain 650 mg 2023 Active 2023 23147 54531 0 Every 6 hours By Mouth False Tylenol 325 mg tablet 2 tabs By Mouth Every 4 hours as needed For Pain DO NOT EXCEED 3000 MG APAP/24 Hours 2 tabs 2023 Active 2023 64239 54537 0 Every 4 hours as needed By Mouth False Tylenol 325 mg tablet 2 tabs By Mouth Every 4 hours as needed For Fever >100 DO NOT EXCEED 3000 MG APAP/24 Hours 2 tabs 2023 Active 2023 30166 35191 0 Every 4 hours as needed By Mouth False Dulcolax (bisacodyl) 10 mg rectal suppository One Suppository per rectum PRN if Milk of Magnisia ineffective. Give on day 5 of no BM 1 sup 2023 Active 2023 97212 81676 1 Daily as needed Rectal False Fleet Enema 19 gram-7 gram/118 mL Administer per rectum PRN one time if dulcolax suppository not effective. Give on day 6 of no BM 1 2023 Active 2023 23666 35780 6 Daily as needed Rectal False Milk of Magnesia 400 mg/5 mL oral suspension [Magnesium hydroxide] PRN 30ml By Mouth Daily as needed for constipation one time daily if no BM, on day 4 of no BM (PRN refer to instructions) For Constipation 30 mL 2023 Active 2023 15871 17896 6 Daily as needed By Mouth False VITAL SIGNS Date Time Diastolic blood pressure Systolic blood pressure Body height Body weight Temperature SpO2 Blood Sugar Pulse Respirations 210 15388 7 78.00 mm[Hg] - Lying Down 186.00 mm[Hg] - Lying Down 109.80 NI 97.90 Forehead Scan 91.00 % 92.00/ min 18.00/min 210 14266 1 74.00 mm[Hg] - Lying Down 147.00 mm[Hg] - Lying Down 85.00/ min
--- OUTSIDE RECORDS SUMMARY | 2024-04-10 03:23 | External Medical Summary | Continuity Of Care Document ---
Author Name Unknown Address [address] [address] Organization [facility] () Care Team Providers Care Manufacturing Support Engineer Name Role Phone DO Alonso Amy Primary Care Provider [phone] Allergies Allergy Reaction Start Date End Date [...] pubis fracture 5mg 01/27 Inactiv e 2023 63753 52684 1 Every 4 hours as needed By Mouth False OXYCODONE 5 MG TABLET [GENERIC]IM MEDIATE RELEASE 2.5mg By Mouth Every 4 hours as needed tablet po for moderate pain, pain rate 4-6 on pain scale 1-10. For pain 2.5mg 01/27 Inactiv e 2023 Every 4 hours as needed By Mouth False Oxycodone 5 mg tablet [generic] 01/27 Inactiv e 2023 95618 01196 1 Oxycodone 5 mg tablet [generic] 5mg By Mouth Every 4 hours as needed for severe pain for pain rate 7-10. For right pubis fracture 5mg 2023 0000 Active 2023 84223 64469 1 Every 4 hours as needed By [...] For Muscle spasms 175mg 2023 Active 2023 84772 48160 1 Every 6 hours as needed By Mouth False Cephalexin 500 mg capsule [generic] 500mg By Mouth Every 8 hours For UTI 500mg 01/30 Active 2023 54200 14693 1 Every 8 hours By Mouth False Aspirin 81 mg chewable tablet [generic] 81 mg By Mouth Once daily For AAA 81 mg 2023 Active 2023 74322 87466 6 Once daily By Mouth False Colace 100 mg capsule 100mg By Mouth Twice daily For constipation 100mg 2023 Active 2023 61931 58743 1 Twice daily By Mouth False Enoxaparin 300 mg/3 mL subcutaneou s solution [generic] 20mg Subcutaneous Once daily For anticoag. 20mg 2023 Active 2023 37688 81544 1 Once daily Subcut aneous False Losartan 50 mg tablet [generic] 50 By Mouth Once daily For HTN 50 2023 Active 2023 64748 82462 9 Once daily By Mouth False Miralax 17 gram/dose oral powder 17 gram By Mouth Once daily For contispation 17 gram 2023 Active 2023 45606 76255 0 Once daily By Mouth False Senna 8.6 mg tablet 2 tabs By Mouth Once daily For constipation 2 tabs 2023 Active 2023 09093 11135 1 Once daily By Mouth False Simvastatin 20 mg tablet [generic] 20 mg By Mouth Once daily For Hyperlipidemi a 20 mg 2023 Active 2023 73638 12133 0 Once daily By Mouth False Spiriva with HandiHaler 18 mcg and inhalation capsules 1 capsule Inhalation Once daily For COPD 1 capsule 2023 Active 2023 19808 31373 1 Once daily Inhala tion False Ventolin HFA 90 mcg/actuati on aerosol inhaler 2 puff Inhalation Every 4 hours as needed For COPD 2 puff 2023 Active 2023 56139 34819 0 Every 4 hours as needed Inhala tion False ProSource No Carb 15 gram-60 kcal/30 mL oral liquid 30ml By Mouth Twice daily For Protien supplement 30ml 2023 Active 2023 23607 55500 5 Twice daily By Mouth False Albuterol sulfate 2.5 mg/3 mL (0.083 %) solution for nebulizatio n [generic] 3 ml Inhalation Every 6 hours as needed For wheezing 3 ml 2023 Active 2023 44041 24496 3 Every 6 hours as needed Inhala tion False VITAL SIGNS Date Time Diastolic blood pressure Systolic blood pressure Body height Body weight Temperature SpO2 Blood Sugar Pulse Respirations 210 65586 7 78.00 mm[Hg] - Lying Down 186.00 mm[Hg] - Lying Down 109.80 NI 97.90 Forehead Scan 91.00 % 92.00/ min 18.00/min 210 67775 1 74.00 mm[Hg] - Lying Down 147.00 mm[Hg] - Lying Down 85.00/ min
--- OUTSIDE RECORDS SUMMARY | 2024-04-10 03:23 | External Medical Summary | Continuity Of Care Document ---
Author Name Unknown Address [address] [address] Organization [facility] () Care Team Providers Care Alterations Workroom Clerk Name Role Phone DO Alonso Amy Primary Care Provider [phone] Allergies Allergy Reaction Start Date End Date [...] Day 3 0.1 mL 01/29 Active 2023 73834 09137 0 1 time Intrad ermal False Tubersol 5 tub. unit/0.1 mL intradermal injection solution [Tuberculin PPD] 0.1mL Intradermal 1 time For PPD 2nd Step Give 2nd Step PPD Day 1 and Read results Day 3 (schedule 7 days after 1st READ) 0.1mL 02/07 Active 2023 79619 02987 0 1 time Intrad ermal False Oxycodone 5 mg tablet [generic] 5mg By Mouth Every 4 hours as needed for severe pain for pain rate 7-10. For right pubis fracture 5mg 01/27 Inactiv e 2023 90169 32365 1 Every 4 hours as needed By Mouth False OXYCODONE 5 MG TABLET [GENERIC]IM MEDIATE RELEASE 2.5mg By Mouth Every 4 hours as needed tablet po for moderate pain, pain rate 4-6 on pain scale 1-10. For pain 2.5mg 01/27 Inactiv e 2023 Every 4 hours as needed By Mouth False Oxycodone 5 mg tablet [generic] 01/27 Inactiv e 2023 86207 76723 1 Oxycodone 5 mg tablet [generic] 5mg By Mouth Every 4 hours as needed for severe pain for pain rate 7-10. For right pubis fracture 5mg 2023 Active 2023 78935 59771 1 Every 4 hours as needed By [...] For Muscle spasms 175mg 2023 Active 2023 55981 04320 1 Every 6 hours as needed By Mouth False Cephalexin 500 mg capsule [generic] 500mg By Mouth Every 8 hours For UTI 500mg 01/30 Active 2023 93125 77697 1 Every 8 hours By Mouth False Aspirin 81 mg chewable tablet [generic] 81 mg By Mouth Once daily For AAA 81 mg 2023 Active 2023 42737 50678 6 Once daily By Mouth False Colace 100 mg capsule 100mg By Mouth Twice daily For constipation 100mg 2023 Active 2023 80717 45579 1 Twice daily By Mouth False Enoxaparin 300 mg/3 mL subcutaneou s solution [generic] 20mg Subcutaneous Once daily For anticoag. 20mg 2023 Active 2023 62730 46403 1 Once daily Subcut aneous False Losartan 50 mg tablet [generic] 50 By Mouth Once daily For HTN 50 2023 Active 2023 58943 48686 9 Once daily By Mouth False Miralax 17 gram/dose oral powder 17 gram By Mouth Once daily For contispation 17 gram 2023 Active 2023 33807 32077 0 Once daily By Mouth False Senna 8.6 mg tablet 2 tabs By Mouth Once daily For constipation 2 tabs 2023 Active 2023 36693 74114 1 Once daily By Mouth False Simvastatin 20 mg tablet [generic] 20 mg By Mouth Once daily For Hyperlipidemi a 20 mg 2023 Active 2023 25866 64305 0 Once daily By Mouth False Spiriva with HandiHaler 18 mcg and inhalation capsules 1 capsule Inhalation Once daily For COPD 1 capsule 2023 Active 2023 49912 25230 1 Once daily Inhala tion False Ventolin HFA 90 mcg/actuati on aerosol inhaler 2 puff Inhalation Every 4 hours as needed For COPD 2 puff 2023 Active 2023 32008 81030 0 Every 4 hours as needed Inhala tion False ProSource No Carb 15 gram-60 kcal/30 mL oral liquid 30ml By Mouth Twice daily For Protien supplement 30ml 2023 Active 2023 60844 80043 5 Twice daily By Mouth False Albuterol sulfate 2.5 mg/3 mL (0.083 %) solution for nebulizatio n [generic] 3 ml Inhalation Every 6 hours as needed For wheezing 3 ml 2023 Active 2023 49902 52195 3 Every 6 hours as needed Inhala tion False Acetaminoph en 325 mg tablet [generic] 650 mg By Mouth Every 6 hours For Mild Pain 650 mg 2023 Active 2023 86579 29550 0 Every 6 hours By Mouth False Tylenol 325 mg tablet 2 tabs By Mouth Every 4 hours as needed For Pain DO NOT EXCEED 3000 MG APAP/24 Hours 2 tabs 2023 Active 2023 71009 32248 0 Every 4 hours as needed By Mouth False Tylenol 325 mg tablet 2 tabs By Mouth Every 4 hours as needed For Fever >100 DO NOT EXCEED 3000 MG APAP/24 Hours 2 tabs 2023 Active 2023 27312 67809 0 Every 4 hours as needed By Mouth False Dulcolax (bisacodyl) 10 mg rectal suppository One Suppository per rectum PRN if Milk of Magnisia ineffective. Give on day 5 of no BM 1 sup 2023 Active 2023 12745 31098 1 Daily as needed Rectal False Fleet Enema 19 gram-7 gram/118 mL Administer per rectum PRN one time if dulcolax suppository not effective. Give on day 6 of no BM 1 2023 Active 2023 43505 85118 6 Daily as needed Rectal False Milk of Magnesia 400 mg/5 mL oral suspension [Magnesium hydroxide] PRN 30ml By Mouth Daily as needed for constipation one time daily if no BM, on day 4 of no BM (PRN refer to instructions) For Constipation 30 mL 2023 Active 2023 21430 88836 6 Daily as needed By Mouth False VITAL SIGNS Date Time Diastolic blood pressure Systolic blood pressure Body height Body weight Temperature SpO2 Blood Sugar Pulse Respirations 210 70128 7 78.00 mm[Hg] - Lying Down 186.00 mm[Hg] - Lying Down 109.80 NI 97.90 Forehead Scan 91.00 % 92.00/ min 18.00/min 210 69537 1 74.00 mm[Hg] - Lying Down 147.00 mm[Hg] - Lying Down 85.00/ min
--- OUTSIDE RECORDS SUMMARY | 2024-04-10 03:23 | External Medical Summary | Summary of Care ---
Author Name Unknown Organization [facility] Address [address] [place] [address] Phone [phone] Care Team Providers Care Division Chair Name Role Phone Justice Maria G Rushly Primary Care Provider Reason for Referral * Evaluate & Treat - Unlimited Visits (Within 10 days (routine)) - Authorized Specialty Diagnoses / Procedures Referred By Contac t Referred To Contact Pulmonary Diseases / Pulmonary Diagnoses Pulmonary nodules Vaishali Hirsch PA-C [address] [place] [address] Phone: tel: fax: Referral ID Status Reason Start Date Expiration Date Visits Requested Visits Authorized [id number] Authorized Specialty Services Required 01/23/2024 [id number] Question Answer Referral Priority Within 10 Days (Routine) Primary Reason for Referral? Lung Nodule/Mass Comments Discharge Order Reason for Visit * Reason Comments transfer of records * Auth/Cert Specialty Diagnoses / Procedures Referred By Contac t Referred To Contact Diagnoses fall, pelvic fracture [facility] [address] [place] [address] Phone: tel:[phone] [facility]) Emergency Department ([facility]) [address] [place] [address] Phone: tel: fax: Referral ID Status Reason Start Date Expiration Date Visits Re quested Visits Authorized [id number] Encounter Details Date Type Department Care Team (Late st Contact Info) Description 01/18/2024 9:37 PM EST - 01/28/2024 1:48 PM EST [id number] [address] [place] [address] Jamie Brooks MD [address] [place] [address] Elida Sr DO [address] [place] [address] Maliha Oropeza MD [address], [place] [id number] Andrew Cazares MD [address] [place] [address] Leo Duque MD [address], [place] [id number] Jesus Shelby MD [address], [place] [id number] Various: EKG,CDIQDC Discharge Disposition: SNF Allergies Active Allergy Reactions Criticality Noted Date Comments Acetazolamide 05/22/2017 Percodan Psych complications 08/25/2003 Shakes really bad documented as of this encounter (statuses as of 01/29/2024) Medications CHILDRENS ASPIRIN 81 MG OR CHEW 1 TABLET DAILY 30 0 10/18/19 04 Active SPACE CHAMBER DEVIIndications :COPD exacerbation (HCC) use with inhaler 1 0 10/27/19 06 Active Additional Information Patient not taking.Reported on 09/09/2023 Albuterol Sulfate (2.5 MG/3ML) 0.083% Inhalation Nebulization Solution (Proventil)April cations:COPD, moderate (HCC) Inhale 1 Vial via nebulizer every 6 hours as needed for Wheezing. 300 mL 3 05/12/20 23 Active Additional Information Patient not taking.Reported on 01/19/2024 Ventolin HFA 108 (90 Base) MCG/ACT Inhalation Aerosol SolutionIndicat ions:COPD, moderate (HCC) Inhale 2 Puffs by mouth every 4 hours as needed for Wheezing. 18 g 1 02/20/19 24 Active Simvastatin 20 MG Oral Tablet (Zocor)Indicati ons:Mixed dyslipidemia Take 1 Tablet by mouth in the morning. In the morning.. 90 Tablet 1 07/17/19 24 Active Losartan Potassium 50 MG Oral Tablet (Cozaar)Indicat ions:Hypertensi ve kidney disease with stage 3b chronic kidney disease (HCC) Take 1 Tablet by mouth in the morning. 30 Tablet 5 12/10/19 24 Active Tiotropium Excelsior Monohydrate 18 MCG Inhalation Capsule (Spiriva HandiHaler)April cations:COPD, moderate (HCC) inhale contents of 1 capsule by mouth once daily 90 Capsule 1 01/03/20 24 Active LiquaCel Oral Liquid Take 30 mL by mouth in the morning and 30 mL before bedtime. 1800 mL 01/23/20 24 2024 Active Carisoprodol 350 MG Oral Tablet (Soma) Take 0.5 Tablets by mouth every 6 hours as needed for Muscle spasms (continuation of pain therapy). 15 Tablet 01/23/20 24 Active Sennosides 8.6 MG Oral Tablet (Senokot) Take 2 Tablets by mouth in the morning. 60 Tablet 01/24/20 24 Active Polyethylene Glycol 3350 17 GM Oral Packet (Miralax) Take 1 Packet by mouth in the morning. 14 Each 01/24/20 24 Active Docusate Sodium 100 MG Oral Capsule (Colace) Take 1 Capsule by mouth in the morning and 1 Capsule before bedtime. 10 Capsule 01/23/20 24 Active Enoxaparin Sodium 300 MG/3ML Injection Solution (Lovenox) Inject 20 mg under the skin in the morning. 6 mL 01/23/20 24 2024 Active oxyCODONE HCl 5 MG Oral Tablet (Oxy IR) Take 1 Tablet by mouth every 4 hours as needed for Pain, Severe (can take 1/2 tab, 2.5 mg for moderate pain, contination of pain therapy). 15 Tablet 01/23/20 24 Active Acetaminophen 325 MG Oral Tablet (Tylenol) Take 2 Tablets by mouth every 6 hours. 30 Tablet 01/28/20 Active Cephalexin 500 MG Oral Capsule (Keflex) Take 1 Capsule by mouth in the morning and 1 Capsule at noon and 1 Capsule before bedtime. Do all this for 3 days. for 7 days.. 9 Capsule 01/28/20 24 2023 Active Acetaminophen 325 MG Oral Tablet (Tylenol) Take by mouth 3 Tablets every 6 hours . 30 Tablet 05/16/19 22 2023 Discontinued Amoxicillin-Pot Clavulanate 875-125 MG Oral Tablet (Augmentin)April cations:Celluli tis, unspecified cellulitis site TAKE 1 TABLET BY MOUTH EVERY 12 HOURS FOR 7 DAYS 12/08/19 24 2023 Discontinued(M edication List Clean Up) Cephalexin 500 MG Oral Capsule (Keflex) Take 1 Capsule by mouth in the morning and 1 Capsule at noon and 1 Capsule before bedtime. Do all this for 7 days. for 7 days.. 21 Capsule 01/23/20 24 2023 Discontinued documented as of this encounter (statuses as [...] to be determined 05/01/2004 03/30/2011 PURE HYPERCHOLESTEROLEM 02/15/2004 0509/2008 GENERAL OSTEOARTHROSIS 08/25/200306/13 GENERALIZED ANXIETY DIS 08/25/2003 [...] AM EDT documented as of this encounter Last Filed Vital Signs Vital Sign Reading Time Taken Comments Blood Pressure 131/64 01/28/2024 11:00 AM EST Pulse 71 01/28/2024 11:00 AM EST Temperature 36.6 C (97.9 F) 01/28/2024 11:[address] Respiratory Rate 14 01/28/2024 11:00 AM EST Oxygen Saturation 92% 01/28/2024 11:00 AM EST Inhaled Oxygen Concentration - - Weight 49 kg (108 lb) 01/19/2024 1:39 AM EST Height 157.5 cm (5' 2") 01/19/2024 1:39 AM EST Body Mass Index 19.75 01/19/2024 1:39 AM EST documented in this encounter Functional Status * Are you [...] Flako Dee RN documented in this encounter Discharge Instructions * Discharge Instr - AVS* Vaishali Hirsch PA-C - 01/22/2024 7:47 AM EST Discharge Date: 01/28/2024 You may call the department of Trauma Surgery at [phone] during business hours for any questions or test results. For after-hours emergencies call [phone] and have your doctor paged. The information below provides you with the instructions and the list of medications you need to betaking following discharge from the hospital. If you have any questions, please ask before leaving. Please carry this letter with you when you see your doctor in the clinic. If you have questions, you can reach us at the numbers above. Brief summary of your inpatient care: The patient was admitted to the hospital on 01/17 after a fall and found to have the following injuries: -Right superior and inferior pubic rami fractures (broken pelvis) -Right sacral ala fracture with extension into the SI joint (broken back of pelvis) -Right thigh hematoma (bruise) Broken pelvis bones She was seen and evaluated by the Orthopedic Surgery team for the broken bones in her pelvis. They determined she did not require surgery. They recommended she bear weight as tolerated on her legs using a walker to assist her. She will follow up with Orthopedic Surgery in 2 weeks. Follow-up Appointments - You will need to follow-up with Orthopedics in 2 weeks as an outpatient. Appointments with orthopaedics and other appropriate specialties, are or will be scheduled. If there is no orthopaedic appointment listed, and if you have not been contacted for a follow-up date/location/time by one week post-discharge, call to confirm your appointment. When asked to state the name of the physician, please say "Hospital Discharge". Call Orthopaedics for: - Persistent fever greater than 101 degrees F (38.3 degrees C) - Increasing pain not controlled with current medication - Wound drainage saturating multiple dressings and/or clothing - Spreading/increasing redness (some redness is normal) - Any other questions, concerns or test results - Pain medication cannot be refilled outside of normal business hours. Phone Numbers Saturday-Saturday from 8 am to 4 pm: [facility] - [phone] For after-hours emergencies: Call [phone] and have the Orthopaedic Surgeon percussion tuner paged. Call PCP, 911, or go to nearest Emergency Room for: - chest pain - shortness of breath or difficulty breathing - uncontrolled nausea/vomiting/diarrhea Urinary tract infection (UTI) She was found to have a UTI on admission and was treated with Rocephin and Keflex (antibiotic). Shewill need to continue this medication on discharge for 3 days. If you develop a fever, chills, altered mental status, nausea, or vomiting please call your primary care provider or go to the closest emergency room. Traumatic Hematoma Her thigh hematoma (bruise on your right thigh) was managed by monitoring her hemoglobin (blood count) for signs of bleeding. This hematoma remained stable. She should have a CBC, blood count, at herrehab facility in 1 week to ensure stability. Urinary retention She was noted to have urinary retention and a stark catheter was placed. She will continue to the stark catheter on discharge. Continue good stark care. She will follow up with Urology in 1-2 weeks for further management of this. Blood clot prevention She is at high risk of blood clots due to her trauma and decreased mobility. She will be dischargedon Lovenox injections 20 mg every day for the duration of her rehabilitation. After rehab her mobility should be assessed to determine if this needs to be extended. Pain control She will be discharged on multi-modality pain control with Tylenol, Oxycodone, and Soma. She shouldtake 650 mg of Tylenol every 6 hours for the next 5 days. If the pain is severe (greater than 7 outof 10 pain), she may use Oxycodone 5 mg every 4 hours as needed. If she is having moderate pain (greater than 3 but less than 7 out of 10 pain) she may use Oxycodone 2.5 mg every 4 hours as needed. She may use soma 175 mg every 6 hours as needed to control muscle pain/spasms. -Since you are being prescribed narcotic pain medications, you are also being prescribed a bowel regimen. Please continue to bowel regimen while on these medications. If NO BM in 2 days, take over the counter miralax and/or milk of magnesia to help facilitate a BM. -She should take this medications specifically as directed. Using prescription pain medication can be associated with risks and side effects such as addiction. Do not take these medications with alcohol, street drugs, or any other drugs that cause sleepiness. These medications also can cause sleepiness, and may impair your ability to make complex decisions and/or operate machinery such as a motorvehicle. Fall prevention Make sure that your living space contains wide openings and that cords are well concealed and not in areas where you can trip. Dangle your feet at the edge of the bed and pause for several seconds before standing up. Make sure that your home is properly lit and be sure to turn the lights on when getting up at night. Add grab bars in the bathroom to help reduce the risk of falling. Incidental Findings You were found to have the following incidental findings, please make your primary care provider aware: -Enlarging ground-glass nodule in the right upper lobe measuring up to 1 centimeter with a 0.5 centimeter solid component. Proceed with a complete chest CT examination for further evaluation as earlyas possible -STAIR pulmonary clinic referral has been placed for her Low sodium She was noted to have low sodium levels and started on Liquacel. Continue this on discharge. She should have a BMP, blood test, at her rehab in 1 week to ensure stability. Follow up with PCP in 1 weeks to discuss low sodium and monitoring this. Her PCP should make changes to the treatment of her low sodium. Your doctors during this hospitalization included: -Dr. Orin Dr. Factor: Trauma Surgery -Dr. Fisher: Orthopedic Surgery Your primary diagnosis at discharge was as above Inpatient test results pending: none Operations & Procedures: none Complications: none significant Advance Directive Documented: Advance Directive Does the Patient have an Advance Directive? No Diet: Normal diet Activity: No strenuous activity for 2 weeks Driving: Do not drive. Date you may return to work or school: N/A See your primary care physician (Maria G Rendon DO) in 5-7 day(s). Special Instructions: Please keep all appointments as scheduled. Go to your nearest emergency department if you experience any of the following: sustained fever above 101.5, inability to eat, drink, or take pain medication, numbness/tingling in your extremities, severe nausea or vomiting. Do not drive or operate heavy machinery while taking prescription pain medication. You may take over the counter stool softeners to prevent constipation while taking pain medication. Enoxaparin injection Brand Name: Shanikanox What is this medicine? ENOXAPARIN (ee nox a PA rin) is used after knee, hip, or abdominal surgeries to prevent blood clotting. It is also used to treat existing blood clots in the lungs or in the veins. How should I use this medicine? This medicine is for injection under the skin. It is usually given by a health- career placement specialist. You or a family member may be trained on how to give the injections. If you are to give yourself injections, make sure you understand how to use the syringe, measure the dose if necessary, and give theinjection. To avoid bruising, do not rub the site where this medicine has been injected. Do not take your medicine more often than directed. Do not stop taking except on the advice of your doctor or health career placement specialist. Make sure you receive a puncture-resistant container to dispose of the needles and syringes once you have finished with them. Do not reuse these items. Return the container to your doctor or health career placement specialist for proper disposal. Talk to your vice squad police officer regarding the use of this medicine in children. Special care may be needed. What side effects may I notice from receiving this medicine? Side effects that you should report to your doctor or health career placement specialist as soon as possible: allergic reactions like skin rash, itching or hives, swelling of the face, lips, or tongue feeling faint or lightheaded, falls signs and symptoms of bleeding such as bloody or black, tarry stools; red or dark-brown urine; spitting up blood or brown material that looks like coffee grounds; red spots on the skin; unusual bruising or bleeding from the eye, gums, or nose Side effects that usually do not require medical attention (report to your doctor or health career placement specialist if they continue or are bothersome): pain, redness, or irritation at site where injected What may interact with this medicine? aspirin and aspirin-like medicines certain medicines that treat or prevent blood clots dipyridamole NSAIDs, medicines for pain and inflammation, like ibuprofen or naproxen What if I miss a dose? If you miss a dose, take it as soon as you can. If it is almost time for your next dose, take only that dose. Do not take double or extra doses. Where should I keep my medicine? Keep out of the reach of children. Store at room temperature between 15 and 30 degrees C (59 and 86 degrees F). Do not freeze. If yourinjections have been specially prepared, you may need to store them in the refrigerator. Ask your pharmacist. Throw away any unused medicine after the expiration date. What should I tell my health care provider before I take this medicine? They need to know if you have any of these conditions: bleeding disorders, hemorrhage, or hemophilia infection of the heart or heart valves kidney or liver disease previous stroke prosthetic heart valve recent surgery or delivery of a baby ulcer in the stomach or intestine, diverticulitis, or other bowel disease an unusual or allergic reaction to enoxaparin, heparin, pork or pork products, other medicines, foods, dyes, or preservatives or trying to get breast-feeding What should I watch for while using this medicine? Visit your doctor or health career placement specialist for regular checks on your progress. Your condition will be monitored carefully while you are receiving this medicine. Notify your doctor or health career placement specialist and seek emergency treatment if you develop breathing problems; changes in vision; chest pain; severe, sudden headache; pain, swelling, warmth in the leg; trouble speaking; sudden numbness or weakness of the face, arm, or leg. These can be signs that your condition has gotten worse. If you are going to have surgery, tell your doctor or health career placement specialist that you are taking this medicine. Do not stop taking this medicine without first talking to your doctor. Be sure to refill your prescription before you run out of medicine. Avoid sports and activities that might cause injury while you are using this medicine. Severe fallsor injuries can cause unseen bleeding. Be careful when using sharp tools or knives. Consider using an electric razor. Take special care brushing or flossing your teeth. Report any injuries, bruising,or red spots on the skin to your doctor or health career placement specialist. NOTE:This sheet is a summary. It may not cover all possible information. If you have questions about this medicine, talk to your doctor, pharmacist, or health care provider. - Do not use alcohol products in anyway! - Use caution when standing or walking since you are at an increased risk for falls --- documented in this encounter Progress Notes * Jesus Shelyb MD - 01/28/2024 10:02 AM EST PROGRESS NOTE - Trauma Surgery [address] [address] Name: Aleida Sierra [place] [facility] Date: 01/28/2024 Time: 10:02 AM HOSPITAL DAY#: 10 ROUNDING SURGEON: Dr. Johnson ADMISSION DATE: 01/18/2024 OPERATIONS / PROCEDURES: none INJURY COMPLEX: Principal Problem: Fall (POA: Yes) Active Problems: Closed fracture of multiple pubic rami, right, initial encounter (HCC) (POA: Yes) Sacral fracture (HCC) (POA: Yes) Hematoma of right thigh (POA: Yes) Pulmonary nodules (POA: Unknown) POA = Present On Admission Patient was involved in fall from standing and presents with a chief complaint of hip pain. Immediately following the fall she was unable to ambulate due to pain. Patient initially was evaluated at [facility] and transferred to [facility] for further trauma evaluation for CT findings of right pubic rami and right sacral fractures. Of note, she had a recent fall in November of 2023 result lazaro left knee patella injury for which her LLE is currently in a knee immobilizer. She reports takingASA 81mg daily. INTERIM HISTORY (LAST 24 HOURS): No acute events overnight. Currently on 1 L NC and nursing weaningas able. Medically stable for d/c to rehab once bed is available. PHYSICAL EXAMINATION: Most Recent Vital Signs: BP: 135 mmHg/60 mmHg (01/28/24737) Pulse: 53 (01/28/24737) Resp: 16 (01/28/24737) Temp: 36 C (01/28/24737) Temp Summary: Temp Min: 36 C (96.8 F) Max: 36.9 C (98.4 F) SpO2: 100 % (01/28/24737) O2 flow rate: 1 L/MIN (01/28/24737) Supplemental O2 Delivery: Nasal Cannula (01/28/24737) SpO2: 100 % (01/28/24737) Vital Signs Last 24 Hours: Systolic BP: Most Recent Systolic BP Av mmHg Min: 107 mmHg Max: 135 mmHg Temperature: Most Recent Temperature Av.6 C Min: 36 C Max: 36.89 C Pulse: Pulse Av.4 Min: 53 Max: 80 Respirations: Resp Av Min: 16 Max: 16 SpO2: SpO2 Av.8 % Min: 95 % Max: 100 % Intake/Output Summary (Last 24 hours) at 01/28/2024 1002 Last data filed at 01/28/2024 0900 Gross per 24 hour Intake 640 ml Output 1350 ml Net -710 ml General: sitting upright in bed, NAD HEENT: NCAT, PERRL, buccal mucosa dry CV: HD stable; RRR Lungs: non labored on RA; adequate respiratory effort on RA Abdomen: nondistended, soft, nontender Extremities: warm, well perfused; without edema or deformity Neuro/psych: GCS 15, A&O x 3 DEVICES: TEDs/SCDs: yes DIET: regular ACTIVITY LEVEL: up with assistance ALLERGIES: Diamox [acetazolamide] and Percodan LABORATORIES: [facility] ASSESSMENT/PLAN: Right Superior/Inferior Pubic Rami Fractures; Right sacral ala fracture - WBAT bilateral LE - Pain control - PT/OT Intramuscular hematoma of the Right Thigh - monitor CBC QOD - Resumed MITER CUTTER ASA 81mg on 01/23 Renal: urinary retention, JOS - trend BMP QOD - catheter to remain in place d/t ongoing urinary retention. - follow up with urology outpatient - treating mild hyponatremia with Liquacell UTI - Ceftriaxone 1 gram on 01/22 - cephalexin Q8H x 7 days (due to stark) started 01/23 HTN - Hold MITER CUTTER Losartan HLD - resumed MITER CUTTER Zocor 01/20/2024 COPD - Continue MITER CUTTER Proventil PRN - Incruse Ellipta in place of MITER CUTTER Spiriva Inhaler DVT Prophylaxis - lovenox -SCDs - TEDs Bowel Regimen - Colace -Senna -miralax Pain Management - Acetaminophen 650 Q6H -Oxycodone 2.5/5mg Q4H PRN moderate/severe pain Rehab -PT/OT advising inpatient SNF rehab Disposition -medically stable for hospital discharge to SNF for ongoing management/rehab Patient's decisional capacity: has capacity to make decisions Communication with Patient/Family: No meeting held. I have reviewed the advanced practitioner's documentation on the date of service referenced in note, and I agree with, and take responsibility for the plan of care. I spent a total of 25 minutes coordinating, documenting, and providing care for this patient excluding time spent in the performance of separately billed services or time spent by another provider/QHP. Discharge today * Jesus Shelby MD - 01/27/2024 7:40 AM EST PROGRESS NOTE - Trauma Surgery [facility] [place] [address] Name: Aleida Sierra Location: [facility]/A Date: 01/27/2024 Time: 12:38 PM HOSPITAL DAY#: 9 ROUNDING SURGEON: Dr. Johnson ADMISSION DATE: 01/18/2024 OPERATIONS / PROCEDURES: none INJURY COMPLEX: Principal Problem: Fall (POA: Yes) Active Problems: Closed fracture of multiple pubic rami, right, initial encounter (HCC) (POA: Yes) Sacral fracture (HCC) (POA: Yes) Hematoma of right thigh (POA: Yes) Pulmonary nodules (POA: Unknown) POA = Present On Admission INTERIM HISTORY (LAST 24 HOURS): No acute events reported overnight. Patient remains medically stable for discharge. On assessment this morning, patient is found sitting upright in the bed. She has no complaints thismorning. Stark catheter is in place and will remain in place upon discharge with f/u with urology d/t urinary retention. Patient denies chest pain, shortness of breath, headache, vision changes, Abdominal pain, nausea, vomiting, back pain, change in neurovascular status. PHYSICAL EXAMINATION: Most Recent Vital Signs: BP: 125 mmHg/66 mmHg (01/27/24 120) Pulse: 80 (01/27/24 120) Resp: 16 (01/27/241201) Temp: 36.72 C (01/27/241201) Temp Summary: Temp Min: 36.1 C (97 F) Max: 37.1 C (98.8 F) SpO2: 95 % (01/27/241201) O2 flow rate: 1 L/MIN (01/27/241201) Supplemental O2 Delivery: Nasal Cannula (01/27/241201) SpO2: 95 % (01/27/24 120) Vital Signs Last 24 Hours: Systolic BP: Most Recent Systolic BP Av.7 mmHg Min: 95 mmHg Max: 125 mmHg Temperature: Most Recent Temperature Av.7 C Min: 36.11 C Max: 37.11 C Pulse: Pulse Av.2 Min: 68 Max: 81 Respirations: Resp Av Min: 16 Max: 16 SpO2: SpO2 Av % Min: 95 % Max: 99 % Pain Assessment (0-10): 2 Intake/Output Summary (Last 24 hours) at 01/27/2024 1238 Last data filed at 01/27/2024 0810 Gross per 24 hour Intake 1080 ml Output 1900 ml Net -820 ml HEENT: head atraumatic. Pupils are equal, clear, and round. Sclera white without injection. Oropharynx clear. Neck: nontender, normal range of motion Respiratory: equal chest rise and fall with respirations. No acute distress. Cardiovascular: regular rate and rhythm. Abdomen: abdomen soft and nontender to palpation. Musculoskeletal: LLE in MITER CUTTER brace. Pulses, motor, and sensation grossly intact in all extremities. Skin: warm and dry Neurologic: alert and oriented x 3 DEVICES: Stark: yes NGT/OGT: no TEDs/SCDs: yes Cervical Collar: no DIET: regular ACTIVITY LEVEL: up with assistance ALLERGIES: Diamox [acetazolamide] and Percodan LABORATORIES: Labs reviewed as indicated below: Latest Reference Range & Units 01/27/24 03:54 SODIUM 135 - 146 mmol/L 134 (L) POTASSIUM 3.5 - 5.1 mmol/L 3.9 CHLORIDE 98 - 107 mmol/L 101 CO2 22 - 32 mmol/L 25 BUN 6 - 20 mg/dL 16 CREATININE 0.5 - 1.0 mg/dL 1.0 EGFR >=60 mL/min 58 (L) ANION GAP 7 - 15 mmol/L 8 GLUCOSE 70 - 120 mg/dL 109 CALCIUM 8.4 - 10.2 mg/dL 8.7 (L): Data is abnormally low Latest Reference Range & Units 01/27/24 03:54 WBC 4.00 - 10.80 K/uL 6.67 RBC 3.85 - 5.15 M/uL 2.84 HGB 12.0 - 15.3 g/dL 8.7 (L) HCT 36.0 - 45.2 % 27.8 (L) MCV 81.5 - 97.5 fL 97.9 MCH 27.0 - 34.0 pg 30.6 MCHC 32.0 - 36.0 g/dL 31.3 RDW 11.5 - 15.5 % 13.1 PLT 140 - 400 K/uL 274 MPV 6.6 - 11.1 fL 10.3 (L): Data is abnormally low CULTURES / SENSITIVITIES: no new RADIOGRAPHIC STUDIES: no new ASSESSMENT/PLAN: Right Superior/Inferior Pubic Rami Fractures; Right sacral ala fracture - WBAT bilateral LE - Pain control - PT/OT Intramuscular hematoma of the Right Thigh - monitor CBC QOD - Hgb 8.7 today, near patient baseline 9.0 -> 9.3 -> 9.1 - Resumed MITER CUTTER ASA 81mg on 01/23 Possible JOS - trend BMP QOD - catheter to remain in place d/t ongoing urinary retention. - follow up with urology outpatient - treating mild hyponatremia with Liquacell UTI - Ceftriaxone 1 gram on 01/22 - cephalexin Q8H x 7 days started 01/23 HTN - Hold MITER CUTTER Losartan HLD - resumed MITER CUTTER Zocor 01/20/2024 COPD - Continue MITER CUTTER Proventil PRN - Incruse Ellipta in place of MITER CUTTER Spiriva Inhaler DVT Prophylaxis - lovenox -SCDs - TEDs Bowel Regimen - Colace -Senna -miralax Pain Management - Acetaminophen 650 Q6H -Oxycodone 2.5/5mg Q4H PRN moderate/severe pain Patient's decisional capacity: has capacity to make decisions Communication with Patient/Family: No meeting held. Goals of Care: D/C today Haylie Dooley PA-C I have reviewed the advanced practitioner's documentation on the date of service referenced in note, and I agree with, and take responsibility for the plan of care. I spent a total of 25 minutes coordinating, documenting, and providing care for this patient excluding time spent in the performance of separately billed services or time spent by another provider/QHP. Labs q2 days Awaiting transport for discharge * Susanna Major MD - 01/26/2024 1:19 PM EST Images from the original note were not included. PROGRESS NOTE - Trauma [place] [facility] [place] [address] Name: Aleida Sierra [place] [facility] [facility]535/A Date: 01/26/2024 Time: 1:19 PM HOSPITAL DAY#: 7 ADMISSION DATE: 01/18/2024 OPERATIONS / PROCEDURES: none this admission HISTORY OF PRESENT ILLNESS Patient is a 78 year old female who presents to the ED as a Trauma Consult via EMS ground. Patient was involved in fall from standing and presents with a chief complaint of hip pain. Immediately following the fall she was unable to ambulate due to pain. Patient initially was evaluated at [facility] and transferred to [facility] [place] further trauma evaluation for CT findings of right pubic rami and right sacral fractures. Of note, she had a recent fall in November of 2023 result in a left knee patella injury for which her LLE is currently in a knee immobilizer. She reports taking ASA 81mgdaily. INJURY COMPLEX: Right Superior/Inferior Pubic Rami Fractures Right Sacral ala fracture PROBLEM LIST: Principal Problem: Fall Active Problems: Closed fracture of multiple pubic rami, right, initial encounter ([facility]) Sacral fracture ([facility]) Hematoma of right thigh Pulmonary nodules Resolved Problems: * No resolved hospital problems. * INTERIM HISTORY (LAST 24 HOURS): No events overnight. Refused bowel regimen again. States she wants to take them at rehab. Ready fordischarge. Pain last 24 hours: 2x soma 5x oxy 5mg I/O Diet: regular PO: 1080 IV: n/a Urine: 1650 Stool:Last Bowel Movement: 01/18/24, Stool Description: Other - Describe (no stool to assess at this time) senna, colace, miralax - is refusing bowel regimen PHYSICAL EXAMINATION: Most Recent Vital Signs: BP: 138 mmHg/66 mmHg (01/26/24 1000) Pulse: 75 (01/26/24 1000) Resp: 16 (01/26/24999) Temp: 37 C (01/26/24 1000) Temp Summary: Temp Min: 36.7 C (98 F) Max: 37.2 C (99 F) SpO2: 96 % (01/26/24999) O2 flow rate: 1 L/MIN (01/26/24 1000) Supplemental O2 Delivery: Nasal Cannula (01/26/24999) SpO2: 96 % (01/26/24 1000) 24 Hour Vitals Blood Pressure: Most Recent Systolic BP Av.5 mmHg Min: 121 mmHg Max: 149 mmHg Temperature: Most Recent Temperature Av.1 C Min: 36.67 C Max: 37.22 C Pulse: Pulse Av.7 Min: 75 Max: 84 Respirations: Resp Av Min: 16 Max: 16 SpO2: SpO2 Av.4 % Min: 95 % Max: 98 % Constitutional: no acute distress, appropriate mood Head: normocephalic, atraumatic Eyes: sclera and conjunctiva normal Neck: supple, trachea midline, normal range of motion CV: warm and well perfused Chest: symmetric and normal respiratory effort Abdomen: soft, non distended, suprapubic tenderness Extremities: no edema, no cyanosis, L Lextremity in a MITER CUTTER brace, sensation and motor intact in all extremities Skin: warm, dry Neuro: alert, conversant, motor function is grossly intact DEVICES: Urethral Catheter Coude (Active) Number of days: 3 Peripheral Line Lower;Posterior;Right Arm 22 Gauge (Active) Number of days: 8 Peripheral Line Left;Posterior Wrist 20 Gauge (Active) Number of days: 8 ALLERGIES: Diamox [acetazolamide] and Percodan LABORATORIES: Lab results within last 7 days (see chart for full results) Units 01/26/24 0420 01/25/24 0433 01/24/24 0326 WBC K/uL 7.70 7.67 8.33 HGB g/dL 9.1* 9.3* 9.0* PLT K/uL 247 215 193 SODIUM mmol/L 133* 136 135 POTASSIUM mmol/L 3.9 4.2 4.0 CHLORIDE mmol/L 99 102 102 CO2 mmol/L 26 24 23 BUN mg/dL 16 21* 30* CREATININE mg/dL 1.0 1.0 1.1* CALCIUM mg/dL 8.5 8.7 8.4 CULTURES / SENSITIVITIES: Recent Cultures (2 Weeks) 01/22/2024 1:59 PM QUANT URINE CULTURE GROWTH >100,000 colonies/mL Escherichia coli 10,000 to 100,000 colonies/mL - Second type Escherichia coli RADIOGRAPHIC STUDIES OVER LAST 24 HRS: No imaging results in the last 24 hours ASSESSMENT/PLAN Principal Problem: Fall (POA: Yes) Active Problems: Closed fracture of multiple pubic rami, right, initial encounter (HCC) (POA: Yes) Overview: Superior and inferior Sacral fracture (HCC) (POA: Yes) Overview: Right sacral ala fracture Hematoma of right thigh (POA: Yes) Overview: Intramuscular, medial right thigh Pulmonary nodules (POA: Unknown) POA = Present On Admission PLAN: Right Superior/Inferior Pubic Rami Fractures Right Sacral ala fracture - No OR, WBAT BLE w/ assist device PRN - Pain control as below Intramuscular Hematoma of Right Thigh - No active bleeding noted on repeat CT with IV contrast - Daily CBC - Resumed MITER CUTTER ASA 81mg on 01/23 - stable at 9.3 from 9.3 yesterday Possible JOS - trending BMP daily - Cr appears to have peaked, now downtrending - today is 1.1 from 1.7 on admission (baseline of 1.4) - mild hyponatremia - liquacel - trending UOP Acute urinary retention - stark placed on 01/23 for third time, pt to be discharged with stark and follow with urology outpt UTI - CTX 1 g on 01/22 - cephalexin q8h x 7 days beginning 01/23 HTN - Hold MITER CUTTER Losartan HLD - resumed MITER CUTTER Zocor 01/20/2024 COPD - Continue MITER CUTTER Proventil PRN - Incruse Ellipta in place of MITER CUTTER Spiriva Inhaler - DVT Prophylaxis: lovenox - Bowel Regimen: Senna/colace/miralax Last Bowel Movement: 01/18/24 (01/24/24 0400) Stool Description: Other - Describe (no stool to assess at this time) (01/24/241999) - Pain management: ATC Tylenol, PRN oxy, PRN soma - PT/OT: Consulted. [facility]: 11 - Diet: regular diet - Tertiary survey - complete INCIDENTAL FINDINGS: Enlarging ground-glass nodule in the right upper lobe measuring up to 1 centimeter with a 0.5 centimeter solid component. Proceed with a complete chest CT examination for further evaluation as early as possible - Resumed MITER CUTTER medications: incruse ellipta, zocor, resumed asa on 01/22 - Held MITER CUTTER medications: losartan Dispo: med surg, plan to DC to [facility] pending transportation (tentative plan for 01/26) Patient was seen and discussed with Dr. Sage Major MD General Surgery PGY-3 01/26/2024 1:19 PM Cosigned by Andrew Cazares MD at 01/26/2024 8:30 PM EST Associated attestation - Andrew Cazares MD - 01/26/2024 8:30 PM EST I saw and evaluated the patient today. I have reviewed the resident/fellow physician note and agree. 78-year-old female who presented after a fall resulting in multiple pelvic fractures which were evaluated by Orthopedic Surgery and recommended nonoperative management she is weight-bearing as tolerated. She did have an intramuscular hematoma however he hemoglobin has remained stable. She has had on going urinary retention issues and is on a straight cath protocol. She was noted to have a urinary tract infection and was started on ceftriaxone this will be transitioned to an oral regimen for her possible discharge. She is due for rehab. * Susanna Major MD - 01/25/2024 1:56 PM EST Images from the original note were not included. PROGRESS NOTE - Trauma Surgery [address] [address] Name: Aleida Sierra [place] [facility] [facility] Date: 01/25/2024 Time: 1:56 PM HOSPITAL DAY#: 6 ADMISSION DATE: 01/18/2024 OPERATIONS / PROCEDURES: none this admission HISTORY OF PRESENT ILLNESS Patient is a 78 year old female who presents to the ED as a Trauma Consult via EMS ground. Patient was involved in fall from standing and presents with a chief complaint of hip pain. Immediately following the fall she was unable to ambulate due to pain. Patient initially was evaluated at [facility] and transferred to [facility] [place] further trauma evaluation for CT findings of right pubic rami and right sacral fractures. Of note, she had a recent fall in November of 2023 result in a left knee patella injury for which her LLE is currently in a knee immobilizer. She reports taking ASA 81mgdaily. INJURY COMPLEX: Right Superior/Inferior Pubic Rami Fractures Right Sacral ala fracture PROBLEM LIST: Principal Problem: Fall Active Problems: Closed fracture of multiple pubic rami, right, initial encounter (HCC) Sacral fracture (HCC) Hematoma of right thigh Pulmonary nodules Resolved Problems: * No resolved hospital problems. * INTERIM HISTORY (LAST 24 HOURS): No events overnight. Refused bowel regimen again. States she wants to take them at rehab. Ready fordischarge. Pain last 24 hours: 1x soma 3x oxy 5mg I/O Diet: regular PO: 1600 IV: n/a Urine: 1839+1x Stool:Last Bowel Movement: 01/18/24, Stool Description: Other - Describe (no stool to assess at this time) senna, colace, miralax - is refusing bowel regimen PHYSICAL EXAMINATION: Most Recent Vital Signs: BP: 139 mmHg/78 mmHg (01/25/241052) Pulse: 85 (01/25/241052) Resp: 16 (01/25/241052) Temp: 36.61 C (01/25/241052) Temp Summary: Temp Min: 36.5 C (97.7 F) Max: 37.2 C (99 F) SpO2: 99 % (01/25/241052) O2 flow rate: 1 L/MIN (01/25/241052) Supplemental O2 Delivery: Nasal Cannula (01/25/241052) SpO2: 99 % (01/25/241052) 24 Hour Vitals Blood Pressure: Most Recent Systolic BP Av.2 mmHg Min: 135 mmHg Max: 152 mmHg Temperature: Most Recent Temperature Av.8 C Min: 36.5 C Max: 37.22 C Pulse: Pulse Av.8 Min: 78 Max: 91 Respirations: Resp Av Min: 16 Max: 16 SpO2: SpO2 Av.5 % Min: 95 % Max: 99 % Constitutional: no acute distress, appropriate mood Head: normocephalic, atraumatic Eyes: sclera and conjunctiva normal Neck: supple, trachea midline, normal range of motion CV: warm and well perfused Chest: symmetric and normal respiratory effort Abdomen: soft, non distended, suprapubic tenderness Extremities: no edema, no cyanosis, L Lextremity in a MITER CUTTER brace, sensation and motor intact in all extremities Skin: warm, dry Neuro: alert, conversant, motor function is grossly intact DEVICES: Urethral Catheter Coude (Active) Number of days: 2 Peripheral Line Lower;Posterior;Right Arm 22 Gauge (Active) Number of days: 7 Peripheral Line Left;Posterior Wrist 20 Gauge (Active) Number of days: 7 ALLERGIES: Diamox [acetazolamide] and Percodan LABORATORIES: Lab results within last 7 days (see chart for full results) Units 01/25/24 0433 01/24/24 0326 01/23/24 0646 WBC K/uL 7.67 8.33 9.75 HGB g/dL 9.3* 9.0* 9.3* PLT K/uL 215 193 184 SODIUM mmol/L 136 135 132* POTASSIUM mmol/L 4.2 4.0 4.4 CHLORIDE mmol/L 102 102 100 CO2 mmol/L 24 23 21* BUN mg/dL 21* 30* 41* CREATININE mg/dL 1.0 1.1* 1.3* CALCIUM mg/dL 8.7 8.4 8.6 CULTURES / SENSITIVITIES: Recent Cultures (2 Weeks) 01/22/2024 1:59 PM QUANT URINE CULTURE GROWTH >100,000 colonies/mL Escherichia coli 10,000 to 100,000 colonies/mL - Second type Escherichia coli RADIOGRAPHIC STUDIES OVER LAST 24 HRS: No imaging results in the last 24 hours ASSESSMENT/PLAN Principal Problem: Fall (POA: Yes) Active Problems: Closed fracture of multiple pubic rami, right, initial encounter (HCC) (POA: Yes) Overview: Superior and inferior Sacral fracture (HCC) (POA: Yes) Overview: Right sacral ala fracture Hematoma of right thigh (POA: Yes) Overview: Intramuscular, medial right thigh Pulmonary nodules (POA: Unknown) POA = Present On Admission PLAN: Right Superior/Inferior Pubic Rami Fractures Right Sacral ala fracture - No OR, WBAT BLE w/ assist device PRN - Pain control as below Intramuscular Hematoma of Right Thigh - No active bleeding noted on repeat CT with IV contrast - Daily CBC - Resumed MITER CUTTER ASA 81mg on 01/23 - stable at 9.3 from 9.3 yesterday Possible JOS - trending BMP daily - Cr appears to have peaked, now downtrending - today is 1.1 from 1.7 on admission (baseline of 1.4) - mild hyponatremia - liquacel - trending UOP Acute urinary retention - stark placed on 01/23 for third time, pt to be discharged with stark and follow with urology outpt UTI - CTX 1 g on 01/22 - cephalexin q8h x 7 days beginning 01/23 HTN - Hold MITER CUTTER Losartan HLD - resumed MITER CUTTER Zocor 01/20/2024 COPD - Continue MITER CUTTER Proventil PRN - Incruse Ellipta in place of MITER CUTTER Spiriva Inhaler - DVT Prophylaxis: lovenox - Bowel Regimen: Senna/colace/miralax Last Bowel Movement: 01/18/24 (01/24/24 0400) Stool Description: Other - Describe (no stool to assess at this time) (01/24/241999) - Pain management: ATC Tylenol, PRN oxy, PRN soma - PT/OT: Consulted. [facility]: 11 - Diet: regular diet - Tertiary survey - complete INCIDENTAL FINDINGS: Enlarging ground-glass nodule in the right upper lobe measuring up to 1 centimeter with a 0.5 centimeter solid component. Proceed with a complete chest CT examination for further evaluation as early as possible - Resumed MITER CUTTER medications: incruse ellipta, zocor, resumed asa on 01/22 - Held MITER CUTTER medications: losartan Dispo: med surg, plan to DC to [facility] pending transportation Patient was seen and discussed with Dr. Sage Major MD General Surgery PGY-3 01/25/2024 2:00 PM Cosigned by Andrew Cazares MD at 01/26/2024 8:29 PM EST Associated attestation - Andrew Cazares MD - 01/26/2024 8:29 PM EST I saw and evaluated the patient 01/25/24. I have reviewed the resident/fellow physician note and agree. 78-year-old female who presented after a fall resulting in multiple pelvic fractures which were evaluated by Orthopedic Surgery and recommended nonoperative management she is weight-bearing as tolerated. She did have an intramuscular hematoma however he hemoglobin has remained stable. She has had on going urinary retention issues and is on a straight cath protocol. She was noted to have a urinary tract infection and was started on ceftriaxone this will be transitioned to an oral regimen for her possible discharge. She is due for rehab. * Shaun Rodriguez, DO - 01/24/2024 5:38 AM EST Images from the original note were not included. PROGRESS NOTE - Trauma Surgery [facility] [address] Name: Aleida Sierra [place]: [facility] [facility]/A Date: 01/24/2024 Time: 5:44 AM HOSPITAL DAY#: 5 ADMISSION DATE: 01/18/2024 OPERATIONS / PROCEDURES: none this admission HISTORY OF PRESENT ILLNESS Patient is a 78 year old female who presents to the ED as a Trauma Consult via EMS ground. Patient was involved in fall from standing and presents with a chief complaint of hip pain. Immediately following the fall she was unable to ambulate due to pain. Patient initially was evaluated at [facility] and transferred to [facility] [place] further trauma evaluation for CT findings of right pubic rami and right sacral fractures. Of note, she had a recent fall in November of 2023 result in a left knee patella injury for which her LLE is currently in a knee immobilizer. She reports taking ASA 81mgdaily. INJURY COMPLEX: Right Superior/Inferior Pubic Rami Fractures Right Sacral ala fracture PROBLEM LIST: Principal Problem: Fall Active Problems: Closed fracture of multiple pubic rami, right, initial encounter (HCC) Sacral fracture (HCC) Hematoma of right thigh Pulmonary nodules Resolved Problems: * No resolved hospital problems. * INTERIM HISTORY (LAST 24 HOURS): No acute events overnight. Afebrile. Vital signs stable. Saturating well on RA. Pt's pain is improving. Pt says her pain is improved since stark was placed. She has not had a BM and has been refusingher bowel regimen. She agreed to take her bowel regimen after discussion. Pain last 24 hours: 1x soma I/O Diet: regular PO: 840 IV: n/a Urine: 1810 Stool:Last Bowel Movement: 01/18/24, senna, colace, miralax - is refusing bowel regimen PHYSICAL EXAMINATION: Most Recent Vital Signs: BP: 134 mmHg/80 mmHg (01/24/24305) Pulse: 77 (01/24/24305) Resp: 17 (01/24/24305) Temp: 36.5 C (01/24/24305) Temp Summary: Temp Min: 36.5 C (97.7 F) Max: 37 C (98.6 F) SpO2: 97 % (01/24/24305) O2 flow rate: 1 L/MIN (01/24/24305) Supplemental O2 Delivery: Nasal Cannula (01/24/24305) SpO2: 97 % (01/24/24305) 24 Hour Vitals Blood Pressure: Most Recent Systolic BP Av.5 mmHg Min: 134 mmHg Max: 149 mmHg Temperature: Most Recent Temperature Av.8 C Min: 36.5 C Max: 37 C Pulse: Pulse Av.8 Min: 77 Max: 91 Respirations: Resp Av.3 Min: 16 Max: 17 SpO2: SpO2 Av.8 % Min: 95 % Max: 99 % Constitutional: no acute distress, appropriate mood Head: normocephalic, atraumatic Eyes: sclera and conjunctiva normal Neck: supple, trachea midline, normal range of motion CV: warm and well perfused Chest: symmetric and normal respiratory effort Abdomen: soft, non distended, suprapubic tenderness Extremities: no edema, no cyanosis, L Lextremity in a MITER CUTTER brace, sensation and motor intact in all extremities Skin: warm, dry Neuro: alert, conversant, motor function is grossly intact DEVICES: Urethral Catheter Coude (Active) Number of days: 1 Peripheral Line Lower;Posterior;Right Arm 22 Gauge (Active) Number of days: 6 Peripheral Line Left;Posterior Wrist 20 Gauge (Active) Number of days: 6 ALLERGIES: Diamox [acetazolamide] and Percodan LABORATORIES: Lab results within last 7 days (see chart for full results) Units 01/24/24 0326 01/23/24 0646 01/22/24 0748 WBC K/uL 8.33 9.75 15.92* HGB g/dL 9.0* 9.3* 9.3* PLT K/uL 193 184 180 SODIUM mmol/L 135 132* 133* POTASSIUM mmol/L 4.0 4.4 4.8 CHLORIDE mmol/L 102 100 100 CO2 mmol/L 23 21* 18* BUN mg/dL 30* 41* 44* CREATININE mg/dL 1.1* 1.3* 1.6* CALCIUM mg/dL 8.4 8.6 8.3* CULTURES / SENSITIVITIES: Recent Cultures (2 Weeks) 01/22/2024 1:59 PM QUANT URINE CULTURE GROWTH >100,000 colonies/mL Lactose fermenting gram negative bacilli RADIOGRAPHIC STUDIES OVER LAST 24 HRS: No imaging results in the last 24 hours ASSESSMENT/PLAN Principal Problem: Fall (POA: Yes) Active Problems: Closed fracture of multiple pubic rami, right, initial encounter (HCC) (POA: Yes) Overview: Superior and inferior Sacral fracture (HCC) (POA: Yes) Overview: Right sacral ala fracture Hematoma of right thigh (POA: Yes) Overview: Intramuscular, medial right thigh Pulmonary nodules (POA: Unknown) POA = Present On Admission PLAN: Right Superior/Inferior Pubic Rami Fractures Right Sacral ala fracture - No OR, WBAT BLE w/ assist device PRN - Pain control as below Intramuscular Hematoma of Right Thigh - No active bleeding noted on repeat CT with IV contrast - Daily CBC - Resumed MITER CUTTER ASA 81mg on 01/23 - stable at 9.3 from 9.3 yesterday Possible JOS - trending BMP daily - Cr appears to have peaked, now downtrending - today is 1.1 from 1.7 on admission (baseline of 1.4) - mild hyponatremia - liquacel - trending UOP Acute urinary retention - stark placed on 01/23 for third time, pt to be discharged with stark and follow with urology outpt UTI - CTX 1 g on 01/22 - cephalexin q8h x 7 days beginning today 01/23 HTN - Hold MITER CUTTER Losartan HLD - resumed MITER CUTTER Zocor 01/20/2024 COPD - Continue MITER CUTTER Proventil PRN - Incruse Ellipta in place of MITER CUTTER Spiriva Inhaler - DVT Prophylaxis: lovenox - Bowel Regimen: Senna/colace/miralax Last Bowel Movement: 01/18/24 (01/24/24 0400) - Pain management: ATC Tylenol, PRN oxy, PRN soma - PT/OT: Consulted. [facility]: 11 - Diet: regular diet - Tertiary survey - complete INCIDENTAL FINDINGS: Enlarging ground-glass nodule in the right upper lobe measuring up to 1 centimeter with a 0.5 centimeter solid component. Proceed with a complete chest CT examination for further evaluation as early as possible - Resumed MITER CUTTER medications: incruse ellipta, zocor, resumed asa on 01/22 - Held MITER CUTTER medications: losartan Dispo: med surg, plan to DC 01/22 to [facility] Patient was seen and discussed with Dr. Sage Rodriguez DO General Surgery PGY-1 01/23/2024 Cosigned by Andrew Cazares MD at 01/26/2024 7:33 PM EST Associated attestation - Andrew Cazares MD - 01/26/2024 7:33 PM EST I saw and evaluated the patient 01/24/24. I have reviewed the resident/fellow physician note and agree. 78-year-old female who presented after a fall resulting in multiple pelvic fractures which were evaluated by Orthopedic Surgery and recommended nonoperative management she is weight-bearing as tolerated. She did have an intramuscular hematoma however he hemoglobin has remained stable. She has had on going urinary retention issues and is on a straight cath protocol. She was noted to have a urinary tract infection and was started on ceftriaxone this will be transitioned to an oral regimen for her possible discharge. She is due for rehab. * Shaun Rodriguez DO - 01/23/2024 6:13 AM EST PROGRESS NOTE - Trauma Surgery [facility] [address] Name: Aleida Sierra [place]: [facility] [facility]/A Date: 01/23/2024 Time: 8:34 AM HOSPITAL DAY#: 4 ADMISSION DATE: 01/18/2024 OPERATIONS / PROCEDURES: none this admission HISTORY OF PRESENT ILLNESS Patient is a 78 year old female who presents to the ED as a Trauma Consult via EMS ground. Patient was involved in fall from standing and presents with a chief complaint of hip pain. Immediately following the fall she was unable to ambulate due to pain. Patient initially was evaluated at [facility] and transferred to [facility] [place] further trauma evaluation for CT findings of right pubic rami and right sacral fractures. Of note, she had a recent fall in November of 2023 result in a left knee patella injury for which her LLE is currently in a knee immobilizer. She reports taking ASA 81mgdaily. INJURY COMPLEX: Right Superior/Inferior Pubic Rami Fractures Right Sacral ala fracture PROBLEM LIST: Principal Problem: Fall Active Problems: Closed fracture of multiple pubic rami, right, initial encounter ([facility]) Sacral fracture ([facility]) Hematoma of right thigh Resolved Problems: * No resolved hospital problems. * INTERIM HISTORY (LAST 24 HOURS): No acute events overnight. Afebrile. Vital signs stable. Saturating well on 1L O2. Does not wear O2at home. Stark removed yesterday. Began straight cath protocol and straight cath'ed 1x overnight. This morning complaining of some suprapubic pain and feels like she can't urinate. Pain last 24 hours: No prn usage last 24 hours I/O Diet: regular PO: 380 IV: n/a Urine: 910 Stool:Last Bowel Movement: 01/18/24, senna, colace, miralax, - is refusing bowel regimen PHYSICAL EXAMINATION: Most Recent Vital Signs: BP: 141 mmHg/68 mmHg (01/23/24623) Pulse: 87 (01/23/24623) Resp: 17 (01/23/24623) Temp: 36.78 C (01/23/24623) Temp Summary: Temp Min: 36.6 C (97.9 F) Max: 36.8 C (98.2 F) SpO2: 95 % (01/23/24623) O2 flow rate: 1 L/MIN (01/23/24623) Supplemental O2 Delivery: Nasal Cannula (01/23/24623) SpO2: 95 % (01/23/24623) 24 Hour Vitals Blood Pressure: Most Recent Systolic BP Av.1 mmHg Min: 127 mmHg Max: 167 mmHg Temperature: Most Recent Temperature Av.7 C Min: 36.61 C Max: 36.78 C Pulse: Pulse Av.4 Min: 81 Max: 99 Respirations: Resp Av.1 Min: 16 Max: 17 SpO2: SpO2 Av % Min: 94 % Max: 99 % Constitutional: no acute distress, appropriate mood Head: normocephalic, atraumatic Eyes: sclera and conjunctiva normal Neck: supple, trachea midline, normal range of motion CV: warm and well perfused Chest: symmetric and normal respiratory effort Abdomen: soft, non distended, suprapubic tenderness Extremities: no edema, no cyanosis, L Lextremity in a MITER CUTTER brace, sensation and motor intact in all extremities Skin: warm, dry Neuro: alert, conversant, motor function is grossly intact DEVICES: Peripheral Line Lower;Posterior;Right Arm 22 Gauge (Active) Number of days: 5 Peripheral Line Left;Posterior Wrist 20 Gauge (Active) Number of days: 5 ALLERGIES: Diamox [acetazolamide] and Percodan LABORATORIES: Lab results within last 7 days (see chart for full results) Units 01/23/24 0646 01/22/24 0748 01/21/24 0806 01/21/24 0356 WBC K/uL 9.75 15.92* 13.85* -- HGB g/dL 9.3* 9.3* 10.1* -- PLT K/uL 184 180 165 -- SODIUM mmol/L 132* 133* -- 135 POTASSIUM mmol/L 4.4 4.8 -- 4.7 CHLORIDE mmol/L 100 100 -- 102 CO2 mmol/L 21* 18* -- 20* BUN mg/dL 41* 44* -- 31* CREATININE mg/dL 1.3* 1.6* -- 1.7* CALCIUM mg/dL 8.6 8.3* -- 8.6 CULTURES / SENSITIVITIES: Recent Cultures (2 Weeks) No lab values to display. RADIOGRAPHIC STUDIES OVER LAST 24 HRS: No imaging results in the last 24 hours ASSESSMENT/PLAN Principal Problem: Fall (POA: Yes) Active Problems: Closed fracture of multiple pubic rami, right, initial encounter (HCC) (POA: Yes) Overview: Superior and inferior Sacral fracture (HCC) (POA: Yes) Overview: Right sacral ala fracture Hematoma of right thigh (POA: Yes) Overview: Intramuscular, medial right thigh POA = Present On Admission PLAN: Right Superior/Inferior Pubic Rami Fractures Right Sacral ala fracture - No OR, WBAT BLE w/ assist device PRN - Pain control as below Intramuscular Hematoma of Right Thigh - No active bleeding noted on repeat CT with IV contrast - Daily CBC - Resume MITER CUTTER ASA 81mg - stable at 9.3 from 9.3 yesterday Possible JOS - trending BMP daily - Cr appears to have peaked, now downtrending - today is 1.6 from 1.7 (baseline of 1.4) - mild hyponatremia - liquacel - trending UOP Acute urinary retention - Removed stark catheter (01/21) - Straight cath protocol (straight cath'ed 1x so far) - If patient requires stark replacement again, this would be the third time. At that point, will plan to discharge with stark in place with outpatient urology follow up. UTI - CTX 1 g on 01/22 - cephalexin q8h x 7 days beginning tmrw 01/23 HTN - Hold MITER CUTTER Losartan HLD - resumed MITER CUTTER Zocor 01/20/2024 COPD - Continue MITER CUTTER Proventil PRN - Incruse Ellipta in place of MITER CUTTER Spiriva Inhaler - DVT Prophylaxis: lovenox - Bowel Regimen: Senna/colace/miralax Last Bowel Movement: 01/18/24 (01/21/24 1127) - Pain management: ATC Tylenol, PRN oxy, PRN soma - PT/OT: Consulted. AMPAC: 11 - Diet: regular diet - Tertiary survey - complete INCIDENTAL FINDINGS: Enlarging ground-glass nodule in the right upper lobe measuring up to 1 centimeter with a 0.5 centimeter solid component. Proceed with a complete chest CT examination for further evaluation as early as possible - Resumed MITER CUTTER medications: incruse ellipta, zocor, resumed asa on 01/22 - Held MITER CUTTER medications: losartan Dispo: med surg, plan to DC 01/22 to [facility] Patient was seen and discussed with Dr. Sage Rodriguez DO General Surgery PGY-1 01/23/2024 Cosigned by Andrew Cazares MD at 01/23/2024 2:17 PM EST Associated attestation - Andrew Cazares MD - 01/23/2024 2:17 PM EST I saw and evaluated the patient today. I have reviewed the resident/fellow physician note and agree. 78-year-old female who presented after a fall resulting in multiple pelvic fractures which were evaluated by Orthopedic Surgery and recommended nonoperative management she is weight-bearing as tolerated. She did have an intramuscular hematoma however he hemoglobin has remained stable. She has had on going urinary retention issues and is on a straight cath protocol. She was noted to have a urinary tract infection and was started on ceftriaxone this will be transitioned to an oral regimen for her possible discharge. She is due for rehab. * Susanna Major MD - 01/22/2024 8:04 PM EST PROGRESS NOTE - Trauma Surgery [facility] [address] Name: Aleida Sierra [place] [facility] [id number]/A Date: 01/22/2024 Time: 8:04 PM HOSPITAL DAY#: 3 ADMISSION DATE: 01/18/2024 OPERATIONS / PROCEDURES: none this admission HISTORY OF PRESENT ILLNESS Patient is a 78 year old female who presents to the ED as a Trauma Consult via EMS ground. Patient was involved in fall from standing and presents with a chief complaint of hip pain. Immediately following the fall she was unable to ambulate due to pain. Patient initially was evaluated at [facility] and transferred to [facility] for further trauma evaluation for CT findings of right pubic rami and right sacral fractures. Of note, she had a recent fall in November of 2023 result in a left knee patella injury for which her LLE is currently in a knee immobilizer. She reports taking ASA 81mgdaily. INJURY COMPLEX: Right Superior/Inferior Pubic Rami Fractures Right Sacral ala fracture PROBLEM LIST: Principal Problem: Fall Active Problems: Closed fracture of multiple pubic rami, right, initial encounter (HCC) Sacral fracture (HCC) Hematoma of right thigh Resolved Problems: * No resolved hospital problems. * INTERIM HISTORY (LAST 24 HOURS): No events overnight. Sitting up in bed. No acute complaints. Pain last 24 hours: Atc tylenol 4x oxy 5 mg 3x soma 175 mg I/O Diet: regular PO: 420 IV: 500 mL bolus Urine: 300 4797-7577 - 100 1714-3251 - 200 3968-2873 - none recorded 250 recorded at start of AM shift Stool:Last Bowel Movement: 01/18/24, senna, colace, miralax, Milk of Magnesium ordered this morningand refused PHYSICAL EXAMINATION: Most Recent Vital Signs: BP: 127 mmHg/75 mmHg (01/22/241843) Pulse: 87 (01/22/241843) Resp: 16 (01/22/241843) Temp: 36.72 C (01/22/241843) Temp Summary: Temp Min: 36.7 C (98.1 F) Max: 37.7 C (99.9 F) SpO2: 99 % (01/22/241843) O2 flow rate: 1 L/MIN (01/22/241843) Supplemental O2 Delivery: Nasal Cannula (01/22/241843) SpO2: 99 % (01/22/241843) 24 Hour Vitals Blood Pressure: Most Recent Systolic BP Av.5 mmHg Min: 127 mmHg Max: 167 mmHg Temperature: Most Recent Temperature Av.9 C Min: 36.72 C Max: 37.72 C Pulse: Pulse Av.7 Min: 85 Max: 95 Respirations: Resp Av.3 Min: 16 Max: 17 SpO2: SpO2 Av.7 % Min: 92 % Max: 99 % Constitutional: no acute distress, appropriate mood Head: normocephalic, atraumatic Eyes: sclera and conjunctiva normal Neck: supple, trachea midline, normal range of motion CV: warm and well perfused Chest: symmetric and normal respiratory effort Abdomen: soft, non distended Extremities: no edema, no cyanosis, L Lextremity in a MITER CUTTER brace, sensation and motor intact in all extremities Skin: warm, dry Neuro: alert, conversant, motor function is grossly intact DEVICES: Peripheral Line Lower;Posterior;Right Arm 22 Gauge (Active) Number of days: 4 Peripheral Line Left;Posterior Wrist 20 Gauge (Active) Number of days: 4 ALLERGIES: Diamox [acetazolamide] and Percodan LABORATORIES: Lab results within last 7 days (see chart for full results) Units 01/22/24 0748 01/21/24 0806 01/21/24 0356 01/20/24 2139 01/20/24 0910 01/20/24 0450 WBC K/uL 15.92* 13.85* -- 11.01* < > -- HGB g/dL 9.3* 10.1* -- 10.1* < > -- PLT K/uL 180 165 -- 149 < > -- SODIUM mmol/L 133* -- 135 -- -- 134* POTASSIUM mmol/L 4.8 -- 4.7 -- -- 4.6 CHLORIDE mmol/L 100 -- 102 -- -- 102 CO2 mmol/L 18* -- 20* -- -- 23 BUN mg/dL 44* -- 31* -- -- 27* CREATININE mg/dL 1.6* -- 1.7* -- -- 1.7* CALCIUM mg/dL 8.3* -- 8.6 -- -- 8.6 < > = values in this interval not displayed. CULTURES / SENSITIVITIES: Recent Cultures (2 Weeks) No lab values to display. RADIOGRAPHIC STUDIES OVER LAST 24 HRS: No imaging results in the last 24 hours ASSESSMENT/PLAN Principal Problem: Fall (POA: Yes) Active Problems: Closed fracture of multiple pubic rami, right, initial encounter (HCC) (POA: Yes) Overview: Superior and inferior Sacral fracture (HCC) (POA: Yes) Overview: Right sacral ala fracture Hematoma of right thigh (POA: Yes) Overview: Intramuscular, medial right thigh POA = Present On Admission PLAN: Right Superior/Inferior Pubic Rami Fractures Right Sacral ala fracture - No OR, WBAT BLE w/ assist device PRN - Pain control as below Intramuscular Hematoma of Right Thigh - No active bleeding noted on repeat CT with IV contrast - Daily CBC - Holding MITER CUTTER ASA 81mg - consider restarting 01/22 (Hgb 9.3 today from 10.1) Possible JOS - trending BMP daily - Cr appears to have peaked, now downtrending - today is 1.6 from 1.7 (baseline of 1.4) - mild hyponatremia - liquacel - trending UOP - patient noted to have low UOP per charting overnight, but improved in the AM Acute urinary retention - Removed stark catheter today (01/21) - Straight cath protocol - If patient requires stark replacement again, this would be the third time. At that point, will plan to discharge with stark in place with outpatient urology follow up. HTN - Hold MITER CUTTER Losartan HLD - resumed MITER CUTTER Zocor 01/20/2024 COPD - Continue MITER CUTTER Proventil PRN - Incruse Ellipta in place of MITER CUTTER Spiriva Inhaler - DVT Prophylaxis: lovenox - Bowel Regimen: Senna/colace/miralax Last Bowel Movement: 01/18/24 (01/21/24 1127) - Pain management: ATC Tylenol, PRN oxy, PRN soma - PT/OT: Consulted. AMPA: 11 - Diet: regular diet - Tertiary survey - complete INCIDENTAL FINDINGS: Enlarging ground-glass nodule in the right upper lobe measuring up to 1 centimeter with a 0.5 centimeter solid component. Proceed with a complete chest CT examination for further evaluation as early as possible - Resumed MITER CUTTER medications: incruse ellipta, zocor - Held MITER CUTTER medications: ASA 81, losartan Dispo: med surg, plan to DC 01/22 to [facility] Patient was seen and discussed with Dr. Sage Major MD General Surgery PGY-3 01/22/2024 8:12 PM Cosigned by Andrew Cazares MD at 01/23/2024 2:16 PM EST Associated attestation - Andrew Cazares MD - 01/23/2024 2:16 PM EST I saw and evaluated the patient 01/22/24. I have reviewed the resident/fellow physician note and agree. 78-year-old female who presented after a fall resulting in multiple pelvic fractures which were evaluated by Orthopedic Surgery and recommended nonoperative management she is weight-bearing as tolerated. She did have an intramuscular hematoma however he hemoglobin has remained stable. She has had on going urinary retention issues and is on a straight cath protocol. She is due for rehab. * Shaun Rodriguez DO - 01/21/2024 5:57 AM EST PROGRESS NOTE - Trauma Surgery [facility] [address] Name: Aleida Sierra Location: [place] [id number]/A Date: 01/21/2024 Time: 10:54 AM HOSPITAL DAY#: 2 ADMISSION DATE: 01/18/2024 OPERATIONS / PROCEDURES: none this admission HISTORY OF PRESENT ILLNESS Patient is a 78 year old female who presents to the ED as a Trauma Consult via EMS ground. Patient was involved in fall from standing and presents with a chief complaint of hip pain. Immediately following the fall she was unable to ambulate due to pain. Patient initially was evaluated at [facility] and transferred to [facility] for further trauma evaluation for CT findings of right pubic rami and right sacral fractures. Of note, she had a recent fall in November of 2023 result in a left knee patella injury for which her LLE is currently in a knee immobilizer. She reports taking ASA 81mgdaily. INJURY COMPLEX: Right Superior/Inferior Pubic Rami Fractures Right Sacral ala fracture PROBLEM LIST: Principal Problem: Fall Active Problems: Closed fracture of multiple pubic rami, right, initial encounter ([facility]) Sacral fracture ([facility]) Hematoma of right thigh Resolved Problems: * No resolved hospital problems. * INTERIM HISTORY (LAST 24 HOURS): Overnight, replaced stark due to urinary retention. No acute events overnight. Afebrile. Vital signs stable. Saturating well on 2L. Given 500 mL bolus of NS this am as her UOP has been low and has been poor Pain last 24 hours: Atc tylenol 6x oxy 5 mg 4x soma 175 mg 1x zofran this morning I/O Diet: regular PO: 480 IV: 500 mL bolus yesterday Urine: 1000 4708-1464 - 112 0978-9010 - 0 7194-9502 - 250 250 was recorded at 2346 when bladder was placed, uop yesterday 0.3 ml/kg/hr yesterday Stool: Last BM: Last Bowel Movement: 01/18/24, senna, colace, added miralax 01/19 PHYSICAL EXAMINATION: Most Recent Vital Signs: BP: 123 mmHg/67 mmHg (01/21/24631) Pulse: 102 (01/21/24631) Resp: 16 (01/21/24631) Temp: 36.5 C (01/21/24631) Temp Summary: Temp Min: 36.5 C (97.7 F) Max: 37.5 C (99.5 F) SpO2: 93 % (01/21/24651) O2 flow rate: 1 L/MIN (01/21/24651) Supplemental O2 Delivery: Nasal Cannula (01/21/24651) SpO2: 93 % (01/21/24651) 24 Hour Vitals Blood Pressure: Most Recent Systolic BP Av.8 mmHg Min: 123 mmHg Max: 141 mmHg Temperature: Most Recent Temperature Av C Min: 36.5 C Max: 37.5 C Pulse: Pulse Av Min: 89 Max: 102 Respirations: Resp Av.3 Min: 16 Max: 18 SpO2: SpO2 Av.5 % Min: 89 % Max: 100 % Constitutional: no acute distress, appropriate mood Head: normocephalic, atraumatic Eyes: sclera and conjunctiva normal Neck: supple, trachea midline, normal range of motion CV: warm and well perfused Chest: symmetric and normal respiratory effort Abdomen: soft, non distended Extremities: no edema, no cyanosis, L Lextremity in a MITER CUTTER brace, sensation and motor intact in all extremities, tenderness w/palpation of R hip Skin: warm, dry Neuro: alert, conversant, motor function is grossly intact DEVICES: Urethral Catheter (Active) Number of days: 1 Peripheral Line Lower;Posterior;Right Arm 22 Gauge (Active) Number of days: 3 Peripheral Line Left;Posterior Wrist 20 Gauge (Active) Number of days: 3 ALLERGIES: Diamox [acetazolamide] and Percodan LABORATORIES: Lab results within last 7 days (see chart for full results) Units 01/21/24 0806 01/21/24 0356 01/20/24 2139 01/20/24 0910 01/20/24 0450 01/19/24 1322 01/19/24 0329 WBC K/uL 13.85* -- 11.01* 10.12 -- < > 8.44 HGB g/dL 10.1* -- 10.1* 10.0* -- < > 10.4* PLT K/uL 165 -- 149 145 -- < > 146 SODIUM mmol/L -- 135 -- -- 134* -- 135 POTASSIUM mmol/L -- 4.7 -- -- 4.6 -- 4.7 CHLORIDE mmol/L -- 102 -- -- 102 -- 103 CO2 mmol/L -- 20* -- -- 23 -- 21* BUN mg/dL -- 31* -- -- 27* -- 25* CREATININE mg/dL -- 1.7* -- -- 1.7* -- 1.4* CALCIUM mg/dL -- 8.6 -- -- 8.6 -- 8.5 < > = values in this interval not displayed. CULTURES / SENSITIVITIES: Recent Cultures (2 Weeks) No lab values to display. RADIOGRAPHIC STUDIES OVER LAST 24 HRS: No imaging results in the last 24 hours ASSESSMENT/PLAN Principal Problem: Fall (POA: Yes) Active Problems: Closed fracture of multiple pubic rami, right, initial encounter (HCC) (POA: Yes) Overview: Superior and inferior Sacral fracture (HCC) (POA: Yes) Overview: Right sacral ala fracture Hematoma of right thigh (POA: Yes) Overview: Intramuscular, medial right thigh POA = Present On Admission PLAN: Right Superior/Inferior Pubic Rami Fractures Right Sacral ala fracture -No OR, WBAT BL LE w/ assist device PRN Intramuscular Hematoma of Right Thigh -No active bleeding noted on repeat CT with IV contrast -Hgb stable transitioning to am cbcs -Hold MITER CUTTER ASA 81mg - consider restarting 01/21 Possible JOS - trending BMP - Cr of 1.7 from 1.4 yesterday (baseline of 1.4) - mild hyponatremia - liquacel - trending UOP HTN -Hold MITER CUTTER Losartan HLD -resumed MITER CUTTER Zocor 01/20/2024 COPD -Continue MITER CUTTER Proventil PRN -Incruse Ellipta in place of MITER CUTTER Spiriva Inhaler - DVT Prophylaxis: lovenox - Bowel Regimen: Senna/colace (Last BM: MITER CUTTER) - Pain management: ATC Tylenol, PRN oxy, PRN soma - PT/OT: Consulted. AMPAC: 8 - Diet: regular diet - Tertiary survey - complete INCIDENTAL FINDINGS: Enlarging ground-glass nodule in the right upper lobe measuring up to 1 centimeter with a 0.5 centimeter solid component. Proceed with a complete chest CT examination for further evaluation as early as possible - Resumed MITER CUTTER medications: incruse ellipta, zocor - Held MITER CUTTER medications: ASA 81, losartan Dispo: med surg Patient examined at bedside and discussed w/ Dr. Orin Rodriguez DO General Surgery PGY1 01/21/2024 10:54 AM Cosigned by Elida Sr DO at 01/22/2024 4:29 PM EST Associated attestation - Elida Sr DO - 01/22/2024 4:29 PM EST LATE ENTRY FOR 01/21/2024: I have seen and examined the patient on rounds. Discussed with Dr. Rodriguez. Agree with above. Patient is a 78 yo female, admitted 01/17, transferred [place] [facility] for evaluation after a fall that occurred aroung 10:30 am this morning. She states she got up and just lost her balance falling backwards. She has a knee brace in place following a left patella fracture in November. She was found to have pubic rami and sacral fractures and was transferred for additional evaluation. PMHx: Peripheral arterial disease, critical limb ischemia, COPD, chronic mesenteric ischemia, tobacco use disorder, dyslipidemia, DVT, hit hypertension, hypertensive kidney disease with CKD 3B, chronic kidney disease, multiple lung nodules, AAA Meds: Tylenol, Proventil, Augmentin, aspirin 81 mg, losartan, simvastatin, Spiriva, Ventolin Injury Complex: Fall from standing Displaced right superior and inferior pubic rami fractures Minimally displaced right sacral ala fracture with extension to the right sacroiliac joint Enlarging ground-glass nodule in the right upper lobe measuring up to 1 centimeter with a 0.5 centimeter solid component Extraperitoneal and presacral stranding Intramuscular hematoma of the medial compartment musculature right thigh without evidence of activeextrav 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 Pain seems to be well controlled on Tylenol ATC with OxyIR prn. H/H low but stabilizing - change to daily labs. Holding Losartan and ASA. Continue aggressive pulmonary toilet and chest physiotherapy. Consult PT/OT for evaluation as well as increased activity and mobilization as appropriate. Creat stabilized. Urine outputs low over night and a stark was placed and she was given a 500 ml bolus. I still think she is a little intravascularly volume depleted - will bolus with another 500 ml and follow clinically. Lovenox for chemical prophylaxis. Sodium 135 - continue liquacel. Lovenox for chemical prophylaxis. I saw and evaluated the patient today. I have reviewed the resident/fellow physician note and agree. * Shaun Rodriguez, - 01/20/2024 6:08 AM EST PROGRESS NOTE - Trauma Surgery [facility] [address] Name: Aleida Sierra Location: [facility] B535/A Date: 01/20/2024 Time: 6:08 AM HOSPITAL DAY#: 1 ADMISSION DATE: 01/18/2024 OPERATIONS / PROCEDURES: none this admission HISTORY OF PRESENT ILLNESS Patient is a 78 year old female who presents to the ED as a Trauma Consult via EMS ground. Patient was involved in fall from standing and presents with a chief complaint of hip pain. Immediately following the fall she was unable to ambulate due to pain. Patient initially was evaluated at [facility] and transferred to [facility] for further trauma evaluation for CT findings of right pubic rami and right sacral fractures. Of note, she had a recent fall in November of 2023 result in a left knee patella injury for which her LLE is currently in a knee immobilizer. She reports taking ASA 81mgdaily. INJURY COMPLEX: Right Superior/Inferior Pubic Rami Fractures Right Sacral ala fracture PROBLEM LIST: Principal Problem: Fall Active Problems: Closed fracture of multiple pubic rami, right, initial encounter (HCC) Sacral fracture (HCC) Hematoma of right thigh Resolved Problems: * No resolved hospital problems. * INTERIM HISTORY (LAST 24 HOURS): Stark removed. Overnight straight cath'ed twice. Straight cath'ed again for about 100 mL out after 8 hours of no voiding. Her PO intake has been poor per nursing. Given a 500 mL bolus this afternoon and encouraged more PO intake. States she still has pain in her pelvis, but she did work with PT/OT today. Pain: Atc tylenol 6x oxy 5 mg yesterday 4x soma 175 mg I/O Diet: regular PO: 960 IV: none Urine: 1000 6585-7007 - 700 1061-6117 - 0 3972-4265 - 300 Stool: Last BM: Last Bowel Movement: 01/18/24, senna, colace, added miralax 01/19 PHYSICAL EXAMINATION: Most Recent Vital Signs: BP: 122 mmHg/68 mmHg (01/20/24536) Pulse: 86 (01/20/24536) Resp: 16 (01/20/24536) Temp: 37.11 C (01/20/24536) Temp Summary: Temp Min: 36.7 C (98 F) Max: 37.4 C (99.3 F) SpO2: 98 % (01/20/24536) O2 flow rate: 2 L/MIN (01/20/24536) Supplemental O2 Delivery: Nasal Cannula (01/20/24536) SpO2: 98 % (01/20/24536) 24 Hour Vitals Blood Pressure: Most Recent Systolic BP Av.3 mmHg Min: 108 mmHg Max: 131 mmHg Temperature: Most Recent Temperature Av.1 C Min: 36.67 C Max: 37.39 C Pulse: Pulse Av.4 Min: 82 Max: 98 Respirations: Resp Av.3 Min: 16 Max: 18 SpO2: SpO2 Av.1 % Min: 84 % Max: 99 % Constitutional: no acute distress, appropriate mood Head: normocephalic, atraumatic Eyes: sclera and conjunctiva normal Neck: supple, trachea midline, normal range of motion CV: warm and well perfused Chest: symmetric and normal respiratory effort Abdomen: soft, non distended Extremities: no edema, no cyanosis, L Lextremity in a MITER CUTTER brace, sensation and motor intact in all extremities, tenderness w/palpation of R hip Skin: warm, dry Neuro: alert, conversant, motor function is grossly intact DEVICES: Peripheral Line Lower;Posterior;Right Arm 22 Gauge (Active) Number of days: 2 Peripheral Line Left;Posterior Wrist 20 Gauge (Active) Number of days: 2 ALLERGIES: Diamox [acetazolamide] and Percodan LABORATORIES: Lab results within last 7 days (see chart for full results) Units 01/20/24 0450 01/19/24 2257 01/19/24 1322 01/19/24 0329 01/18/24 2218 WBC K/uL -- 8.91 8.31 8.44 10.68 HGB g/dL -- 9.9* 9.9* 10.4* 11.1* PLT K/uL -- 141 143 146 145 SODIUM mmol/L 134* -- -- 135 134* POTASSIUM mmol/L 4.6 -- -- 4.7 4.9 CHLORIDE mmol/L 102 -- -- 103 103 CO2 mmol/L 23 -- -- 21* 22 BUN mg/dL 27* -- -- 25* 25* CREATININE mg/dL 1.7* -- -- 1.4* 1.5* CALCIUM mg/dL 8.6 -- -- 8.5 8.9 CULTURES / SENSITIVITIES: Recent Cultures (2 Weeks) No lab values to display. RADIOGRAPHIC STUDIES OVER LAST 24 HRS: No imaging results in the last 24 hours ASSESSMENT/PLAN Principal Problem: Fall (POA: Yes) Active Problems: Closed fracture of multiple pubic rami, right, initial encounter (HCC) (POA: Yes) Overview: Superior and inferior Sacral fracture (HCC) (POA: Yes) Overview: Right sacral ala fracture Hematoma of right thigh (POA: Yes) Overview: Intramuscular, medial right thigh POA = Present On Admission PLAN: Right Superior/Inferior Pubic Rami Fractures Right Sacral ala fracture -No OR, WBAT BL LE w/ assist device PRN Intramuscular Hematoma of Right Thigh -No active bleeding noted on repeat CT with IV contrast -Hgb stable at 9.9 monitor with Q8H CBCs - transition to Q12h cbcs -Hold MITER CUTTER ASA 81mg Possible JOS - trending BMP - Cr of 1.7 from 1.4 yesterday (baseline of 1.4) - mild hyponatremia - starting liquacel - 500 mL bolus today 01/20/2024 HTN -Hold MITER CUTTER Losartan HLD -resumed MITER CUTTER Zocor 01/20/2024 COPD -Continue MITER CUTTER Proventil PRN -Incruse Ellipta in place of MITER CUTTER Spiriva Inhaler - DVT Prophylaxis: lovenox - Bowel Regimen: Senna/colace (Last BM: MITER CUTTER) - Pain management: ATC Tylenol, PRN oxy, PRN soma - PT/OT: Consulted. [facility]: 8 - Diet: regular diet - Tertiary survey - to be completed - Resumed MITER CUTTER medications: incruse ellipta, zocor - Held MITER CUTTER medications: ASA 81, losartan Dispo: med surg Patient examined at bedside and discussed w/ Dr. Orin Rodriguez DO General Surgery PGY1 01/20/2024 6:08 AM Cosigned by Elida Sr DO at 01/20/2024 11:53 PM EST Associated attestation - Elida Sr DO - 01/20/2024 11:53 PM EST I have seen and examined the patient on rounds. Discussed with Dr. Rodriguez. Agree with above. Patient is a 78 yo female, admitted 01/17, transferred [place] [facility] for evaluation after a fall that occurred aroung 10:30 am this morning. She states she got up and just lost her balance falling backwards. She has a knee brace in place following a left patella fracture in November. She was found to have pubic rami and sacral fractures and was transferred for additional evaluation. PMHx: Peripheral arterial disease, critical limb ischemia, COPD, chronic mesenteric ischemia, tobacco use disorder, dyslipidemia, DVT, hit hypertension, hypertensive kidney disease with CKD 3B, chronic kidney disease, multiple lung nodules, AAA Meds: Tylenol, Proventil, Augmentin, aspirin 81 mg, losartan, simvastatin, Spiriva, Ventolin Injury Complex: Fall from standing Displaced right superior and inferior pubic rami fractures Minimally displaced right sacral ala fracture with extension to the right sacroiliac joint Enlarging ground-glass nodule in the right upper lobe measuring up to 1 centimeter with a 0.5 centimeter solid component Extraperitoneal and presacral stranding Intramuscular hematoma of the medial compartment musculature right thigh without evidence of activeextrav 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 Pain seems to be well controlled on Tylenol ATC with OxyIR prn. H/H low but stabilizing. Holding Losartan and ASA. Continue aggressive pulmonary toilet and chest physiotherapy. Consult PT/OT for evaluation as well as increased activity and mobilization as appropriate. Creat up to 1.7(1.4 baseline). Urine outputs a little low - bolus 500 ml and follow clinically. Lovenox for chemical prophylaxis. I saw and evaluated the patient today. I have reviewed the resident/fellow physician note and agree. * Shaun Rodirguez, DO - 01/19/2024 8:06 AM EST PROGRESS NOTE - Trauma Surgery [facility] [address] Name: Aleida Sierra Location: [facility] B535/A Date: 01/19/2024 Time: 10:15 AM HOSPITAL DAY#: 0 ADMISSION DATE: 01/18/2024 OPERATIONS / PROCEDURES: none this admission HISTORY OF PRESENT ILLNESS Patient is a 78 year old female who presents to the ED as a Trauma Consult via EMS ground. Patient was involved in fall from standing and presents with a chief complaint of hip pain. Immediately following the fall she was unable to ambulate due to pain. Patient initially was evaluated at [facility] and transferred to [facility] for further trauma evaluation for CT findings of right pubic rami and right sacral fractures. Of note, she had a recent fall in November of 2023 result in a left knee patella injury for which her LLE is currently in a knee immobilizer. She reports taking ASA 81mgdaily. INJURY COMPLEX: Right Superior/Inferior Pubic Rami Fractures Right Sacral ala fracture PROBLEM LIST: Principal Problem: Fall Active Problems: Closed fracture of multiple pubic rami, right, initial encounter ([facility]) Sacral fracture ([facility]) Hematoma of right thigh Resolved Problems: * No resolved hospital problems. * INTERIM HISTORY (LAST 24 HOURS): Admitted overnight after fall. No acute events overnight. Afebrile. Vital signs stable. Saturating well on RA. Added some oxy on for her pain this morning. Has not yet been out of bed. Was hesitant to have her stark removed but eventually agreed to stark removal. Denies nausea/vomiting, abdominal pain, diarrhea, chest pain, shortness of breath, or headache. Pain: 1x soma 175 mg I/O Diet: regular PO: 240 IV: isolyte 100 ml/hr since admission (ia'ed as on regular diet) Urine: 900 Stool: Last BM: Last Bowel Movement: 01/18/24, PHYSICAL EXAMINATION: Most Recent Vital Signs: BP: 114 mmHg/69 mmHg (01/19/24803) Pulse: 84 (01/19/24803) Resp: 18 (01/19/24803) Temp: 36.67 C (01/19/24803) Temp Summary: Temp Min: 36.7 C (98 F) Max: 37.1 C (98.8 F) SpO2: 91 % (01/19/24803) O2 flow rate: Supplemental O2 Delivery: Room Air, None (01/19/24803) SpO2: 91 % (01/19/24803) 24 Hour Vitals Blood Pressure: Most Recent Systolic BP Av.6 mmHg Min: 106 mmHg Max: 148 mmHg Temperature: Most Recent Temperature Av.9 C Min: 36.67 C Max: 37.11 C Pulse: Pulse Av.6 Min: 82 Max: 101 Respirations: Resp Av.9 Min: 11 Max: 26 SpO2: SpO2 Av % Min: 91 % Max: 98 % Constitutional: no acute distress, appropriate mood Head: normocephalic, atraumatic Eyes: sclera and conjunctiva normal Neck: supple, trachea midline, normal range of motion CV: warm and well perfused Chest: symmetric and normal respiratory effort Abdomen: soft, non distended Extremities: no edema, no cyanosis, L Lextremity in a MITER CUTTER brace, sensation and motor intact in all extremities, tenderness w/palpation of R hip Skin: warm, dry Neuro: alert, conversant, motor function is grossly intact DEVICES: Urethral Catheter (Active) Number of days: 1 Peripheral Line Lower;Posterior;Right Arm 22 Gauge (Active) Number of days: 1 Peripheral Line Left;Posterior Wrist 20 Gauge (Active) Number of days: 1 ALLERGIES: Diamox [acetazolamide] and Percodan LABORATORIES: Lab results within last 7 days (see chart for full results) Units 01/19/24 0329 01/18/24 2218 WBC K/uL 8.44 10.68 HGB g/dL 10.4* 11.1* PLT K/uL 146 145 SODIUM mmol/L 135 134* POTASSIUM mmol/L 4.7 4.9 CHLORIDE mmol/L 103 103 CO2 mmol/L 21* 22 BUN mg/dL 25* 25* CREATININE mg/dL 1.4* 1.5* CALCIUM mg/dL 8.5 8.9 CULTURES / SENSITIVITIES: Recent Cultures (2 Weeks) No lab values to display. RADIOGRAPHIC STUDIES OVER LAST 24 HRS: CT CHEST/ABDOMEN/PELVIS WITH IV CONTRAST WITHOUT ORAL CONTRAST Result Date: 01/19/2024 IMPRESSION 1. Displaced right superior and inferior pubic rami fractures. 2. Minimally displaced right sacral ala fracture with extension to the right sacroiliac joint. No definite sacroiliac joint diastasis. 3. Enlarging ground- glass nodule in the right upper lobe measuring up to 1 centimeter witha 0.5 centimeter solid component. Proceed with a complete chest CT examination for further evaluation as early as possible (Per Fleischner Society guidelines). 4. Extraperitoneal and presacral stranding. No organized fluid collections. 5. Intramuscular hematoma of the medial compartment musculatureof the right thigh without evidence of active contrast extravasation. 6. 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 Incompletely evaluated Aorta recommendation: Recommend followup by ultrasound in 1 year. ASSESSMENT/PLAN Principal Problem: Fall (POA: Yes) Active Problems: Closed fracture of multiple pubic rami, right, initial encounter (HCC) (POA: Yes) Overview: Superior and inferior Sacral fracture (HCC) (POA: Yes) Overview: Right sacral ala fracture Hematoma of right thigh (POA: Yes) Overview: Intramuscular, medial right thigh POA = Present On Admission PLAN: Right Superior/Inferior Pubic Rami Fractures Right Sacral ala fracture -No OR, WBAT BL LE w/ assist device PRN Intramuscular Hematoma of Right Thigh -No active bleeding noted on repeat CT with IV contrast -Hgb 10.4 from 11.1, monitor with Q8H CBCs -Hold MITER CUTTER ASA 81mg HTN -Hold MITER CUTTER Losartan HLD -Hold MITER CUTTER Zocor COPD -Continue MITER CUTTER Proventil PRN -Incruse Ellipta in place of MITER CUTTER Spiriva Inhaler - DVT Prophylaxis: lovenox - Bowel Regimen: Senna/colace (Last BM: MITER CUTTER) - Pain management: ATC Tylenol, PRN oxy, PRN soma - PT/OT: Consulted. AMPAC: to be determined - Diet: regular diet - Tertiary survey - to be completed - Resumed MITER CUTTER medications: incruse ellipta - Held MITER CUTTER medications: ASA 81, losartan, zocor Dispo: med surg Patient examined at bedside and discussed w/ Dr. Orin Rodriguez DO General Surgery PGY1 01/19/2024 10:15 AM Cosigned by Elida Sr DO at 01/20/2024 1:26 AM EST Associated attestation - Elida Sr DO - 01/20/2024 1:26 AM EST LATE ENTRY FOR 01/18/10 I have seen and examined the patient on rounds. Discussed with Dr. Rodriguez. Agree with above. Patient is a 78 yo female, admitted 01/17, transferred [place] [facility] for evaluation after a fall that occurred aroung 10:30 am this morning. She states she got up and just lost her balance falling backwards. She has a knee brace in place following a left patella fracture in November. She was found to have pubic rami and sacral fractures and was transferred for additional evaluation. PMHx: Peripheral arterial disease, critical limb ischemia, COPD, chronic mesenteric ischemia, tobacco use disorder, dyslipidemia, DVT, hit hypertension, hypertensive kidney disease with CKD 3B, chronic kidney disease, multiple lung nodules, AAA Meds: Tylenol, Proventil, Augmentin, aspirin 81 mg, losartan, simvastatin, Spiriva, Ventolin Injury Complex: Fall from standing Displaced right superior and inferior pubic rami fractures Minimally displaced right sacral ala fracture with extension to the right sacroiliac joint Enlarging ground-glass nodule in the right upper lobe measuring up to 1 centimeter with a 0.5 centimeter solid component Extraperitoneal and presacral stranding Intramuscular hematoma of the medial compartment musculature right thigh without evidence of activeextrav 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 Pain seems to be well controlled on Tylenol ATC with OxyIR prn. H/H slightly lower today - rechecked in the afternoon and it was stable. Holding Losartan and ASA. Continue aggressive pulmonary toilet and chest physiotherapy. Consult PT/OT forevaluation as well as increased activity and mobilization as appropriate. documented in this encounter H&P Notes * Shaun Rodriguez DO - 01/20/2024 6:52 AM EST TRAUMA TERTIARY SURVEY [address] [address] Name: Aleida Sierra Location: [facility] B5/A Date: 01/20/2024 Time: 6:52 AM PHYSICAL EXAM: Head: normocephalic / atraumatic Eyes: extraocular muscles intact ENT: tympanic membranes bilaterally clear, oropharynx clear Neck: supple, non-tender, trachea midline Respiratory: clear to auscultation bilaterally Cardiovascular: regular rate and rhythm, palpable peripheral pulses present, no murmurs auscultated Abdomen: soft, non-tender, non-distended, normal bowel sounds Back: no tenderness across thoracic / lumbar spine Pelvis: pelvis stable, tender with pressing over R hip Genitourinary: normal female genitalia Musculoskeletal: no palpable long bone deformities, motor / sensation grossly intact, brace over L knee Skin: grossly intact Neurologic: alert and oriented x3 UA: negative SUBSTANCE ABUSE: ETOH: negative Substance Screen: positive, fenanyl CT SCAN: Head - no acute injuries, Cervical Spine - no acute injuries, Thorax - incidentals, and Abdomen/Pelvis - acute findings C-SPINE CLEARANCE: Yes - by nexus criteria RADIOGRAPHS: pelvis - acute findings and extremity - acute findings MEDICATION RECONCILIATION: done NEW DIAGNOSTIC TESTS ORDERED: none CONSULTS: Orthopaedics, P.T., and O.T. INCIDENTAL FINDINGS: Enlarging ground-glass nodule in the right upper lobe measuring up to 1 centimeter with a 0.5 centimeter solid component. Proceed with a complete chest CT examination for further evaluation as early as possible I have reviewed the patients controlled substance dispensing history in the Prescription Drug Monitoring Program in compliance with the [facility] regulations before prescribing a controlled substance: no concerns, will proceed Cosigned by Elida Sr DO at 01/20/2024 8:54 PM EST * Scot Quinteros, DO - 01/18/2024 10:05 PM EST HISTORY AND PHYSICAL EXAMINATION - Trauma Surgery [address] [address] Name: Aleida Sierra Location: /X Date: 01/18/2024 Time: 10:05 PM Date and Time Patient was Seen: 01/18/2024 at 2220 FINAL ADMISSION STATUS: Trauma Consult, time - 2214 Chief Complaint: Hip Pain History of Present Illness: Patient or other able to provide HPI, see below: Patient is a 78 year old female who presents to the ED as a Trauma Consult via EMS ground. Patient was involved in fall from standing and presents with a chief complaint of hip pain. Immediately following the fall she was unable to ambulate due to pain. Patient initially was evaluated at [facility] and transferred to [facility] for further trauma evaluation for CT findings of right pubic rami and right sacral fractures. Of note, she had a recent fall in November of 2023 result in a left knee patella injury for which her LLE is currently in a knee immobilizer. She reports taking ASA 81mgdaily. MECHANISM OF INJURY: Fall From Standing MODE OF TRANSPORTATION: ambulance LOSS OF CONSCIOUSNESS: no TETANUS VACCINE: There are no preventive care reminders to display for this patient. Administered in Trauma [place]: N/A PAST MEDICAL HISTORY: Past Medical History: Diagnosis Date Asthma with COPD (chronic obstructive pulmonary disease) (HCC) Benign neoplasm of colon 07/28/07 adenomatous and hyperplastic/repeat colonoscopy in 1 yr COPD (chronic obstructive pulmonary disease) (HCC) Dyslipidemia, goal LDL below 100 02/01/2009 Per Lipid Taxonomy. GENERAL OSTEOARTHROSIS 08/25/2003 Other peripheral vascular disease(443.89) Tobacco use disorder 08/25/2003 PAST SURGICAL HISTORY: Past Surgical History: Procedure Laterality Date ANESTH, [...] performed by David Boss MD at [place] [facility] ILIAC ART REVASC W/ STENT,ADDL IPSILATERAL Bilateral 05/12/2021 ILIAC ART REVASC W/ STENT,ADDL IPSILATERAL performed by David Boss MD at [place] [facility] LAPAROSCOPY; CHOLECYSTECTOMY 95-96 Cholecystectomy, Laproscopic PHYLLIS Germain SYNTH BYPASS, FEM-FEM 12/08/03 Fem fem bypass at [facility] by Dr. Elaine TOTAL ABD HYSTERECTOMY W/WO REMOVAL OF TUBE(S) Complete Hysterectomy in early 30s CURRENT HOSPITAL MEDICATIONS: Note that discontinued and completed medications (per the MAR) continue to display for 24 hours. Ordered medications to be given in the future also display. Current Facility-Administered Medications Medication Dose Route Frequency Provider Acetaminophen (Tylenol) tab 650 mg 650 mg Oral Q6H Scot Quinteros DO Carisoprodol (Soma) tab 175 mg 175 mg Oral Q6H PRN Scot Quinteros DO Docusate Sodium (Colace) cap 100 mg 100 mg Oral BID(AM/PM) Scot Quinteros DO [START ON 01/21/2024] Drug Level Check - Enoxaparin Does Not Apply Once Timed Lab 2hrs Scot Quinteros DO Enoxaparin (Lovenox) inj 20 mg 20 mg Subcutaneous Daily 0600 Scot Quinteros DO ondansetron ODT (Zofran) tab 4 mg 4 mg On Tongue Q6H PRN Scot Quinteros DO Or ondansetron (Zofran) inj 4 mg 4 mg IV Push Q6H PRN Scot Quinteros DO senna (Senokot) 2 Tablet 2 Tablet Oral Daily(AM) Scot Quinteros DO TRAUMA enoxaparin per pharmacy order Does Not Apply Per Pharmacy Scot Quinteros DO NSS infusion Intravenous Continuous Rey Spicer DO ALLERGIES: Diamox [acetazolamide] and Percodan SOCIAL HISTORY: Social History Tobacco Use Smoking status: Every Day Current packs/day: 0.50 Average packs/day: 0.5 packs/day for 60.0 years (30.0 ttl pk-yrs) Types: Cigarettes Smokeless tobacco: Never Tobacco comments: 07/03/2023 1/2 pack per day, declined pamphlet Vaping Use Vaping status: Never Used Substance Use Topics Alcohol use: No Drug use: No FAMILY HISTORY: Family History Problem Relation Name Age of Onset Arthritis Sister Asthma Sister Breast Cancer Sister Genitourinary Disorder Sister 1/2 sister one kidney Lung cancer Sister Thyroid Disorder Sister Breast Cancer Daughter 50 REVIEW OF SYSTEMS: Constitutional: (-) fever and (-) chills Cardiovascular: (-) negative: no chest pain, dyspnea, syncope, or palpitations Pulmonary: (-) negative: no cough, wheezing, or shortness of breath Abdominal/GI: (-) abdominal pain, (-) nausea, and (-) vomiting Musculoskeletal: (+) hip pain/problems Skin: (-) negative: no rash or new or changing moles Neurology: (-) negative: no focal neurologic defect COLLARED: no BACKBOARD: no INTUBATED: no SIZE OF TUBE: n/a DISTANCE AT TEETH/GUMS: n/a PHYSICAL EXAM: Most Recent Vital Signs: BP: 106 mmHg/77 mmHg (01/19/24138) Pulse: 99 (01/19/24141) Resp: 16 (01/19/24138) Temp: 37 C (01/19/24138) Temp Summary: Temp Min: 36.8 C (98.2 F) Max: 37 C (98.6 F) SpO2: 93 % (01/19/24138) O2 flow rate: Supplemental O2 Delivery: Room Air, None (01/19/24138) Height: 157.5 cm (5' 2") (01/19/24138) Weight: 49 kg (108 lb) (01/19/24138) BMI: 19.75 (01/19/24138) Constitutional: no acute distress Head: normocephalic, atraumatic Neck: supple, non-tender Eyes: EOMI, sclera and conjunctiva normal ENT: hearing grossly normal, mucous membranes moist, trachea midline CV: normal rate Chest: normal respiratory effort GI/Abdomen: soft, no tenderness, nondistended Pelvis: right hip tenderness Musculoskeletal/Extremities: no long bone deformities, motor / sensation grossly intact; LLE in knee immobilizer Skin: grossly intact Neuro: alert, Glascow Coma Score 15 LABS: Labs reviewed as indicated below: Abnormal Labs Reviewed BASIC METABOLIC PANEL - Abnormal; Notable for the following components: Result Value BUN 25 (*) CREATININE 1.5 (*) EGFR 35 (*) SODIUM 134 (*) All other components within normal limits CBC - Abnormal; Notable for the following components: HGB 11.1 (*) HCT 33.8 (*) All other components within normal limits TOXICOLOGY, URINE SCREEN W/O CONFIRMATION - Abnormal; Notable for the following components: Fentanyl Screen, U Positive (*) Morphine/Codeine Screen, U Positive (*) All other components within normal limits Narrative: Cutoff Concentrations: Drug Level Amphetamines 500 ng/mL Benzodiazepines 100 ng/mL Cannabinoids 50 ng/mL Cocaine Metabolite 150 ng/mL Fentanyl 1 ng/mL Hydrocodone / Hydromorphone 300 ng/mL Methadone Metabolite 100 ng/mL Morphine / Codeine 300 ng/mL Oxycodone / Oxymorphone 100 ng/mL Screening results are presumptive and can only be used for medical purposes. Confirmatory testing is available upon request. URINALYSIS, REFLEX TO CULTURE - Abnormal; Notable for the following components: Specific [place], Urine 1.033 (*) Blood, Urine Small (*) RBC, Urine 3-5 (*) WBC, Urine 6-9 (*) All other components within normal limits IMAGING: CT CHEST/ABDOMEN/PELVIS WITH IV CONTRAST WITHOUT ORAL CONTRAST Result Date: 01/19/2024 IMPRESSION 1. Displaced right superior and inferior pubic rami fractures. 2. Minimally displaced right sacral ala fracture with extension to the right sacroiliac joint. No definite sacroiliac joint diastasis. 3. Enlarging ground- glass nodule in the right upper lobe measuring up to 1 centimeter witha 0.5 centimeter solid component. Proceed with a complete chest CT examination for further evaluation as early as possible (Per Fleischner Society guidelines). 4. Extraperitoneal and presacral stranding. No organized fluid collections. 5. Intramuscular hematoma of the medial compartment musculatureof the right thigh without evidence of active contrast extravasation. 6. 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 Incompletely evaluated Aorta recommendation: Recommend followup by ultrasound in 1 year. 01/18/24 - [facility] IMPRESSIONS X-ray Hip: no acute findings in the right hip Chest X-ray: no acute cardiopulmonary disease Pelvis CT (w/o contrast): 1. Acute fractures of right pubic rami and right sacrum with mild associated anterior pelvic hematoma and mild hematoma along the right pubic ramus. 2. Right asymmetric softtissue prominence of the collapse rectum. Correlate clinically for neoplasm. Cervical Spine CT: multilevel degenerative changes. No fracture. Head CT: cerebral atrophy. No acute changes. CONSULTS: TRAUMA / EMERGENCY SURGERY CONSULT IP ADULT/PEDS ORTHOPAEDICS CONSULT IP ANTI-COAGULATION CONSULT IP ADULT PHYSICAL THERAPY CONSULT IP ADULT OCCUPATIONAL THERAPY CONSULT IP PROCEDURES COMPLETED: None. ASSESSMENT: Principal Problem: Fall (POA: Yes) Active Problems: Closed fracture of multiple pubic rami, right, initial encounter (HCC) (POA: Yes) Overview: Superior and inferior Sacral fracture (HCC) (POA: Yes) Overview: Right sacral ala fracture Hematoma of right thigh (POA: Yes) Overview: Intramuscular, medial right thigh POA = Present On Admission PLAN: Right Superior/Inferior Pubic Rami Fractures Right Sacral ala fracture -No OR, WBAT BL LE w/ assist device PRN Intramuscular Hematoma of Right Thigh -No active bleeding noted on repeat CT with IV contrast -Hgb 10.4 from 11.1, monitor with Q8H CBCs -Hold MITER CUTTER ASA 81mg HTN -Hold MITER CUTTER Losartan HLD -Hold MITER CUTTER Zocor COPD -Continue MITER CUTTER Proventil PRN -Incruse Ellipta in place of MITER CUTTER Spiriva Inhaler Dispo: admit Trauma/Med Surg The patient was examined and was discussed with Dr. Sr. Scot Quinteros DO Cosigned by Elida Sr DO at 01/19/2024 10:24 PM EST Associated attestation - Elida Sr DO - 01/19/2024 10:24 PM EST LATE ENTRY FOR 01/18/2024: Trauma Consult Attending Admit Note: I have seen and examined the patient in the ED in Consultation. I have reviewed the history, physical, chart, labs, x-rays, ct scans, and pertinent data. Discussed with Dr. Quinetros. Agree with above. Patient is a 78 yo female transferred to [facility] for evaluation after a fall that occurred aroung 10:30 am this morning. She states she got up and just lost her balance falling backwards. She has a knee brace in place following a left patella fracture in November. She was found to have pubic rami and sacral fractures and was transferred for additional evaluation. Labs reviewed - see Epic All: Diamox, Percodan PMHx: Peripheral arterial disease, critical limb ischemia, COPD, chronic mesenteric ischemia, tobacco use disorder, dyslipidemia, DVT, hit hypertension, hypertensive kidney disease with CKD 3B, chronic kidney disease, multiple lung nodules, AAA PSHx: See above Meds: Tylenol, Proventil, Augmentin, aspirin 81 mg, losartan, simvastatin, Spiriva, Ventolin SocHx: 1/2 pack per day for 60 years tobacco, denies vaping, denies illicit drugs, denies alcohol ROS: as above -10systems reviewed and negative unless otherwise documented FamHx: Noncontributory BP 109/67 | Pulse 91 | Temp 37.3 C (99.1 F) (Tympanic) | Resp 16 | Ht 1.575 m (5' 2") | Wt 49 kg (108 lb) | SpO2 91% | BMI 19.75 kg/m | BSA 1.46 m GCS 4/5/6, no focal motor or sensory deficits Pupils reactive No rhinorrhea or discharge Trachea midline C Spine nontender to midline palpation with full range of motion without midline palpation T/L Spine nontender to midline palpation Cor: regular Lungs: coarse b/l breath sounds, no crepitus, no chest wall pain to palpation Abd: soft, nontender no peritoneal signs Pelvis: stable with right hip tenderness to palpation Extr: positive distal pulses, no gross bony deformity, LLE knee immobilizer / brace CXR - no acute injury Pelvis without Contrast from OSH - acute fx's right pubic rami and right sacrum, anterior pelvic hematoma and mild hematoma along the right pubic ramus, right asymmetric soft tisu prominence of the collapsed rectum CT Head - no acute intracranial injury or calvarial fracture CT C-Spine - no fx or subluxation CT CAP with IV Contrast - displaced right superior and inferior pubic rami fractures, minimally displaced right sacral ala fracture with extension to the right sacroiliac joint, no definite sacroiliac joint diastasis, enlarging ground-glass nodule in the right upper lobe measuring up to 1 centimeter with a 0.5 centimeter solid component, extraperitoneal and presacral stranding, no organized fluidcollections, intramuscular hematoma of the medial compartment musculature of the right thigh without evidence of active contrast extravasation, high-grade stenosis of the celiac artery and SMA (incompletely evaluated) Consult: Ortho Admit to Med/Surg. NPO with IV fluids for non-op "solid organ" injury with serial labs and bedrest today. Pain management with Tylenol ATC as well as OxyIR and Soma prn. Colace and Senna for bowel regimen and gi prophylaxis as needed Teds/scds, pulmonary toilet, and routine trauma protocols. Seriallabs. Consult PT/OT for increased activity and mobilization as appropriate. 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 I have reviewed the resident/fellow physician note and agree. documented in this encounter Procedure Notes * Cris De Leon MD - 01/19/2024 12:48 AM ESTAssociated Order(s): EKG REASON FOR STUDY: trn CONCLUSIONS: Normal sinus rhythm When compared with ECG of 27-Jan-2021 09:09, No significant change Ventricular Rate: 90 Atrial Rate: 90 IA Interval: 154 QRS Duration: 68 QT/QTc: 366/447 ms P-R-T Rowlett: 81 : 0 : 56 degrees documented in this encounter Consult Notes * Jesi Martinez RPh - 01/27/2024 11:59 AM EST PHARMACY ENOXAPARIN IP CONSULT [address] [id number] Name: Aleida Sierra [place] [facility] [place] Date: 01/19/2024 Time: 12:42 AM GENERAL INFORMATION: Height: 157.5 cm (5' 2") (01/19/24138) Weight: 49 kg (108 lb) (01/19/24138) BMI: 19.75 (01/19/24138) Principle Problem: Fall Criteria met to warrant anti-Xa level monitoring for enoxaparin: Age greater than or equal to 65 years Prior to admission The patient was not on another anticoagulant LABS: Lab Results Component Value Date/Time CREAT 1.0 01/27/2024 03:54 AM CREAT 1.0 01/26/2024 04:20 AM CREAT 1.0 01/25/2024 04:33 AM CREAT 1.8 (H) 11/02/2019 09:13 AM CREAT 1.6 (H) 04/15/2019 08:31 AM CREAT 1.6 (H) 04/09/2019 09:31 AM Lab Results Component Value Date/Time HGB 8.7 (L) 01/27/2024 03:54 AM HGB 9.1 (L) 01/26/2024 04:20 AM HGB 9.3 (L) 01/25/2024 04:33 AM HGB 13.0 04/09/2019 09:31 AM HGB 12.4 06/13/2018 10:20 AM HGB 13.4 05/30/2018 08:50 AM Lab Results Component Value Date/Time PLT 274 01/27/2024 03:54 AM PLT 247 01/26/2024 04:20 AM PLT 215 01/25/2024 04:33 AM PLT 225 04/09/2019 09:31 AM PLT 258 06/13/2018 10:20 AM PLT 319 05/30/2018 08:50 AM Lab Results Component Value Date/Time INR 1.1 01/18/2024 10:18 PM INR 1.02 11/08/2003 11:43 AM Serum creatinine: 1 mg/dL 01/27/24353 Estimated creatinine clearance: 35.3 mL/min Nomogram selection: . Anti-Xa Level (units/mL) Hold Next Dose Dosage Change Next Anti-Xa Level Less than 0.2 No Increase dose(s) by 10 mg 4 hours after 4th dose of new dosing regimen 0.2-0.5 No No Within 1 week Greater than 0.5-1.0 No Evaluate renal function for acute or chronic insufficiency necessitating change to SubQ heparin, ifenoxaparin remains appropriate decrease dose(s) by 10 mg 4 hours after 4th dose of new dosing regimen Greater than 1.0 Consider the flow diagram for dosing and monitoring guidance Lab Results Component Value Date/Time HEPLMWT 0.43 (H) 01/27/2024 09:31 AM HEPLMWT 0.33 (H) 01/22/2024 09:31 AM HEPLMWT 0.45 (H) 01/21/2024 09:24 AM Date Dose(mg) Frequency Date & Time of Last Dose Anti-Xa Level (units/mL) New Dose Next Anti-XaLevel Due 01/18 20 mg Daily 0600 (q24h) 01/20 1000 01/20 20 mg Q24H 0639 0.45 @ 0924 No Change -repeat level 01/21 01/21 20 mg q24h 0639 0.33 @ 0931 No Change 01/28 01/26 20 mg q24h 0606 0.43 @ 0931 No Change 02/02 Recommendation: The current anti-Xa level was drawn early and is within goal range. Continue current enoxaparin regimen of 20 mg Daily and obtain new anti-Xa level within 1 week on 02/02. Pharmacy will continue to follow and adjust dose as appropriate. Please contact Pharmacy at [phone] for any questions. * Neville Bonilla RPh - 01/22/2024 2:04 PM EST PHARMACY ENOXAPARIN IP CONSULT [address] [address] Name: Aleida Sierra [place] [facility] [place] [facility] Date: 01/19/2024 Time: 12:42 AM GENERAL INFORMATION: Height: 157.5 cm (5' 2") (01/19/24138) Weight: 49 kg (108 lb) (01/19/24138) BMI: 19.75 (01/19/24138) Principle Problem: Fall Criteria met to warrant anti-Xa level monitoring for enoxaparin: Age greater than or equal to 65 years Prior to admission The patient was not on another anticoagulant LABS: Lab Results Component Value Date/Time CREAT 1.6 (H) 01/22/2024 07:48 AM CREAT 1.7 (H) 01/21/2024 03:56 AM CREAT 1.7 (H) 01/20/2024 04:50 AM CREAT 1.8 (H) 11/02/2019 09:13 AM CREAT 1.6 (H) 04/15/2019 08:31 AM CREAT 1.6 (H) 04/09/2019 09:31 AM Lab Results Component Value Date/Time HGB 9.3 (L) 01/22/2024 07:48 AM HGB 10.1 (L) 01/21/2024 08:06 AM HGB 10.1 (L) 01/20/2024 09:39 PM HGB 13.0 04/09/2019 09:31 AM HGB 12.4 06/13/2018 10:20 AM HGB 13.4 05/30/2018 08:50 AM Lab Results Component Value Date/Time PLT 180 01/22/2024 07:48 AM PLT 165 01/21/2024 08:06 AM PLT 149 01/20/2024 09:39 PM PLT 225 04/09/2019 09:31 AM PLT 258 06/13/2018 10:20 AM PLT 319 05/30/2018 08:50 AM Lab Results Component Value Date/Time INR 1.1 01/18/2024 10:18 PM INR 1.02 11/08/2003 11:43 AM Serum creatinine: 1.6 mg/dL (H) 01/22/24 0748 Estimated creatinine clearance: 22.1 mL/min (A) Nomogram selection: . Anti-Xa Level (units/mL) Hold Next Dose Dosage Change Next Anti-Xa Level Less than 0.2 No Increase dose(s) by 10 mg 4 hours after 4th dose of new dosing regimen 0.2-0.5 No No Within 1 week Greater than 0.5-1.0 No Evaluate renal function for acute or chronic insufficiency necessitating change to SubQ heparin, ifenoxaparin remains appropriate decrease dose(s) by 10 mg 4 hours after 4th dose of new dosing regimen Greater than 1.0 Consider the flow diagram for dosing and monitoring guidance Lab Results Component Value Date/Time HEPLMWT 0.33 (H) 01/22/2024 09:31 AM HEPLMWT 0.45 (H) 01/21/2024 09:24 AM Date Dose(mg) Frequency Date & Time of Last Dose Anti-Xa Level (units/mL) New Dose Next Anti-XaLevel Due 01/18 20 mg Daily 0600 (q24h) 01/20 1000 01/20 20 mg Q24H 0639 0.45 @ 0924 No Change -repeat level 01/21 01/21 20 mg q24h 0639 0.33 @ 0931 No Change 01/28 Recommendation: The current anti-Xa level was drawn appropriately and is within goal range. Continue current enoxaparin regimen of 20 mg Daily and obtain new anti-Xa level within 1 week. Pharmacy will continue to follow and adjust dose as appropriate. Please contact Pharmacy at [phone] for any questions. Neville Bonilla, Pharm.D., BCPS, BCEMP * Neville Bonilla RPh - 01/21/2024 1:49 PM EST PHARMACY ENOXAPARIN IP CONSULT [address] [phone] Name: Aleida Sierra [place] [facility] [place] [facility] Date: 01/19/2024 Time: 12:42 AM GENERAL INFORMATION: Height: 157.5 cm (5' 2") (01/19/24138) Weight: 49 kg (108 lb) (01/19/24138) BMI: 19.75 (01/19/24138) Principle Problem: Fall Criteria met to warrant anti-Xa level monitoring for enoxaparin: Age greater than or equal to 65 years Prior to admission The patient was not on another anticoagulant LABS: Lab Results Component Value Date/Time CREAT 1.7 (H) 01/21/2024 03:56 AM CREAT 1.7 (H) 01/20/2024 04:50 AM CREAT 1.4 (H) 01/19/2024 03:29 AM CREAT 1.8 (H) 11/02/2019 09:13 AM CREAT 1.6 (H) 04/15/2019 08:31 AM CREAT 1.6 (H) 04/09/2019 09:31 AM Lab Results Component Value Date/Time HGB 10.1 (L) 01/21/2024 08:06 AM HGB 10.1 (L) 01/20/2024 09:39 PM HGB 10.0 (L) 01/20/2024 09:10 AM HGB 13.0 04/09/2019 09:31 AM HGB 12.4 06/13/2018 10:20 AM HGB 13.4 05/30/2018 08:50 AM Lab Results Component Value Date/Time PLT 165 01/21/2024 08:06 AM PLT 149 01/20/2024 09:39 PM PLT 145 01/20/2024 09:10 AM PLT 225 04/09/2019 09:31 AM PLT 258 06/13/2018 10:20 AM PLT 319 05/30/2018 08:50 AM Lab Results Component Value Date/Time INR 1.1 01/18/2024 10:18 PM INR 1.02 11/08/2003 11:43 AM Serum creatinine: 1.7 mg/dL (H) 01/21/24 0356 Estimated creatinine clearance: 20.8 mL/min (A) Nomogram selection: . Anti-Xa Level (units/mL) Hold Next Dose Dosage Change Next Anti-Xa Level Less than 0.2 No Increase dose(s) by 10 mg 4 hours after 4th dose of new dosing regimen 0.2-0.5 No No Within 1 week Greater than 0.5-1.0 No Evaluate renal function for acute or chronic insufficiency necessitating change to SubQ heparin, ifenoxaparin remains appropriate decrease dose(s) by 10 mg 4 hours after 4th dose of new dosing regimen Greater than 1.0 Consider the flow diagram for dosing and monitoring guidance Lab Results Component Value Date/Time HEPLMWT 0.45 (H) 01/21/2024 09:24 AM Date Dose(mg) Frequency Date & Time of Last Dose Anti-Xa Level (units/mL) New Dose Next Anti-XaLevel Due 01/18 20 mg Daily 0600 (q24h) 01/20 1000 01/20 20 mg Q24H 0639 .45 @ 0924 No Change -repeat level 01/21 Recommendation: The current anti-Xa level was drawn late (and dose given earlier) and is therefore outside of the 3to 5 hour window, resulting in an invalid result. Continue current enoxaparin regimen of 20 mg Daily and obtain new anti-Xa level 4 hours after next dose. Pharmacy will continue to follow and adjust dose as appropriate. Please contact Pharmacy at [phone] for any questions. Neville Bonilla, Pharm.D., BCPS, BCEMP * Vaishali Ortiz OTR/Gavino - 01/20/2024 12:55 PM EST GENERAL OOB EVALUATION - Occupational Therapy [address] [address] Name: Aleida Sierra [place] [facility] [place] [facility] Date: 01/20/2024 Time: 1:42 PM Aleida Sierra is a 78 year old female. Patient Status: Inpatient Insurance: Payor: MEDICARE Plan: MEDICARE A AND B Product Type: *No Product type* Payor: AARP Plan: AARP Product Type: *No Product type* Patient Seen: at bedside, nursing cleared patient for therapy Patient Identified By: Name, ID Band and Date Diagnosis: right pubic rami and right sacral fractures s/p fall (01/20/24 125) Status of treatment: OOB evaluation completed (01/20/24 125) Orders: OT evaluation and treatment (01/20/24 125) Weight Bearing Status: Weight bearing as tolerated (01/20/24 125) Precautions: Alarms;Falls;Safety (left knee brace locked into extension) (01/20/24 125) Total Treatment Time: 18 (01/20/24 125) Past Medical History: Past Medical History: Diagnosis Date Asthma with COPD (chronic obstructive pulmonary disease) (HCC) Benign neoplasm of colon 07/28/07 adenomatous and hyperplastic/repeat colonoscopy in 1 yr COPD (chronic obstructive pulmonary disease) (HCC) Dyslipidemia, goal LDL below 100 02/01/2009 Per Lipid Taxonomy. GENERAL OSTEOARTHROSIS 08/25/2003 Other peripheral vascular disease(443.89) Tobacco use disorder 08/25/2003 Past Surgical History: Past Surgical History: Procedure Laterality Date ANESTH, [...] performed by David Boss MD [place] [facility] [place] ILIAC ART REVASC W/ STENT,ADDL IPSILATERAL Bilateral 05/12/2021 ILIAC ART REVASC W/ STENT,ADDL IPSILATERAL performed by David Boss MD at [place] [facility] [place] LAPAROSCOPY; CHOLECYSTECTOMY 95-96 Cholecystectomy, Laproscopic PHYLLIS Germain SYNTH BYPASS, FEM-FEM 12/08/03 Fem fem bypass at [facility] by Dr. Elaine TOTAL ABD HYSTERECTOMY W/WO REMOVAL OF TUBE(S) Complete Hysterectomy in early 30s Social History/Disposition Lives with: Alone (Simultaneous filing. User may not have seen previous data.) (01/19/24946) Assistance available: Yes (granddaughter stays with patient at night and neighbors let her dog out during the day) (01/19/24946) Dwelling type: Single story home (01/19/24946) Entry steps: Ramp (01/19/24946) Inside steps: None (01/19/24946) Bedroom location: 1st floor (01/19/24946) Bath location: 1st floor shower (01/19/24946) Prior Level of Function Reported by: Patient (01/19/24946) Ambulation: Ambulatory with device (01/19/24946) Ambulatory Device: Rolling walker (01/19/24946) Grooming: Independent (01/19/24946) Bathing: Independent (01/19/24946) Dressing: Independent (except assistance with underwear and L knee immobilizer) (01/19/24946) Feeding: Independent (01/19/24946) Toileting: Independent (01/19/24946) Meal Prep: Dependent (01/19/24946) Homemaking: Dependent (01/19/24946) Shopping: Dependent (01/19/24946) Driving: Yes (but not currently) (01/19/24946) Durable Medical Equipment at home: Rolling walker;Wheelchair;Straight cane (recliner lift chair) (01/19/24946) Subjective: "I was just getting better from my last fall" Pain: Patient has complaints of pain. Pain located pelvis and bilateral LE. Observations Consciousness: Alert (01/20/241254) Orientation: Oriented times 4 (01/20/241254) Psychosocial: Patient can communicate basic needs;Patient can converse in a social setting (01/20/241254) Sitting posture: Forward head;Rounded shoulders (01/20/241254) Standing posture: Forward head;Rounded shoulders (01/20/241254) Safety awareness: The Patient verbalizes insight of current deficits.;The Patient demonstrates carryover of insight during functional tasks.;The Patient can communicate basic needs. (01/20/241254) Other Findings Endurance: Fair (01/20/241254) Light touch sensation: Intact (01/20/241254) Proprioception: Intact (01/20/241254) Coordination: Intact (01/20/241254) Tone: Normal tone (01/20/241254) Edema: No edema noted (01/20/241254) Current Functional Status: Bilateral Upper Extremity Range of Motion: WNL (01/19/24946) Strength Assessment: (4-/5 BUE) (01/19/24946) Self Care Able to provide self care: No (01/20/241254) Feeding: Supervision (Please comment) (setup) (01/20/241254) Grooming: Supervision (Please comment) (01/20/241254) Toileting: Dependent (pericare) (01/20/241254) Dressing Upper Body: Supervision (Please comment) (gown) (01/20/241254) Lower Body: Dependent (socks) (01/20/241254) Functional Ambulation Assistive Device: No device (01/20/241254) Distance in feet:: 0 (stand pivot) (01/20/241254) Level of Assistance: (x2) (01/20/241254) Bed Mobility Supine-Sit: Maximal Assistance (x2) (01/20/241254) OT Transfers Sit-Stand: Maximal Assistance (x1, min A x1) (01/20/241254) Stand-Sit: Maximal Assistance (x2) (01/20/241254) Bed-Chair: Maximal Assistance (x2) (01/20/241254) Balance Sit (Static): (Poor+ to fair-) (01/20/241254) Sit (Dynamic): (Poor+) (01/20/241254) Stand (Static): (Poor-) (01/20/241254) Stand (Dynamic): (Poor-) (01/20/241254) Alarm Status Patient positioned in: Chair (01/20/241254) With: Pressure pad alarm intact and functioning and call serna in reach (01/20/241254) Patient and Family Goals: to get well Patient Education Education Topic: Role of OT;Plan of care goals (01/20/241254) Review of Precautions: Fall;Safety (01/20/241254) Method of Education: Verbalized to patient (01/20/241254) Education Provided to: Patient (01/20/241254) Response to Education: Receptive and agreeable to education (01/20/241254) Barriers to learning: Medical status (01/20/241254) Preferred learning method: Combination (01/20/241254) Treatment Provided: Therapeutic Activity: 18 minutes Deficits Requiring O.T. Treatment: Deficits requiring O.T. treatment needs: ADL/self-care;Balance;Endurance;Functional mobility;Safety;Upper extremity strength;Weakness (01/20/241254) Goals: Increase Strength of: increase 1/2 grade, Demonstrates sitting Balance at: modified independent, Demonstrates standing Balance at: modified independent, Demonstrates self care at: Grooming at Modified Independent , Bathing upper body at Modified Independent , Bathing lower body at Modified In dependent , Upper body dressing at Modified Independent , Lower body dressing at Modified Independent and Toileting at Modified Independent , Demonstrates Activity Tolerance at 40/45 minutes, Demonstrates Bed Mobility with: Supine to Sit: Modified Independent and Sit to Supine: Modified Independent, Demonstrates Transfers with: Sit to Stand: Modified Independent (100% with device/additional time) Stand to Sit: Modified Independent (100% with device/additional time) Bed to Chair/Wheelchair: Modified Independent (100% with device/additional time) Toilet: Modified Independent (100% with device/additional time) , Demonstrates Functional Ambulation: Assistive Device: least restrictive device and Level of Assistance: Modified Independent and Increase safety with transfers, ambulation and self care Goal Time Frame: 10 visits Assessment: Patient is a 78 year female admitted s/p fall and presents with moderate deficits in all areas of care and mobility due to decreased strength, balance, activity tolerance, safety, pain, and overall medical condition. Verbalized significant pain in pelvis with any movement. Able to complete UE self care tasks with supervision after setup. Is able to initiate moving feet towards the edge of the bed but needs maximal assist x2 to pull up to a sitting position. Decreased sitting balanceand tolerance at the edge of the bed due to significant pain. Dependent for LE care due to limited reach, only getting to the knees. Stood from the edge of the bed with maximal assist x1, minimal assist x1 due left knee locked in extension. Once standing, unable to advance feet to take steps, needing maximal assist x2. No device utilized during session due to difficulty bearing weight. Would benefit from continued OT treatment to maximize level of functional independence. Please consider post-acute care services which may include home health, shelter, outpatient therapy or inpatient rehabilitation. The level of care will be determined in collaboration with patient, family/caregiver and care team members. Treatment Plan: Accuracy with Precautions, Energy Conservation, Safety, Bed mobility training, Functional Ambulation, Transfer training, Upper extremity strengthening, Balance activities: , ADL training , and Endurance Anticipated Frequency (on eval): 3 to 5 times per week (01/20/24 125) Equipment Needs Equipment needs: Rolling walker (01/20/24 1255) AM-PAC Help From Another Person Eating Meals: A little (01/20/24 125) Help From Another Person Taking Care of Personal Grooming: A little (01/20/24 125) Help From Another Person To Put On/Take Off Upper Body Clothing: A little (01/20/24 125) Help From Another Person To Put On/Take Off Lower Body Clothing: Total (01/20/24 1255) Help From Another Person Toileting: Total (01/20/24 1255) Help From Another Person Bathing: A lot (01/20/24 125) OT AM-PAC Score: 13 (01/20/24 1255) OT AM-PAC t-Scale Score: 32.03 (01/20/24 1255) HLM (Highest Level of Mobility) Goal: Level 4 move to chair/commode (01/20/24 1237) A portion of this AM-PAC assessment not scored based on functional assessment ; rather clinical decision making utilized based on current findings and/or prior level of function. Please refer to future AM-PAC calculations of functional ability as they become available. Vaishali Ortiz MS OTR/L Occupational Therapy [facility] 01/20/2024 2:00 PM * Aleida Mejia PT - 01/20/2024 12:37 PM EST I, Aleida Mejia PT, DPT, supervised and was present for the duration of the following session. I also read, agree with, and endorse the findings of the following therapy note. Aleida Mejia PT, DPT [facility]/Acute Rehab [facility]AL [place]ALUATION - Physical Therapy [address] [address] Name: Aleida Sierra [place] [facility] [place] [facility] Date: 01/20/2024 Time: 12:37 PM Aleida Sierra is a 78 year old female. Patient Status: Inpatient Insurance: Payor: MEDICARE Plan: MEDICARE A AND B Product Type: *No Product type* Payor: AARP Plan: AARP Product Type: *No Product type* Patient Seen: at bedside, nursing cleared patient for therapy Patient Identified By: Name, ID Band, and Date Subjective: Pt was seen in room. Pt was agreeable to participate in therapy. Diagnosis: s/p fall, pelvic fracture (01/20/24 123) Status of treatment: OOB evaluation completed (01/20/24 123) Orders: PT evaluation and treatment;OOB (01/20/24 123) Weight Bearing Status: Weight bearing as tolerated (01/20/24 123) Precautions: Alarms;Falls (L hinged knee brace locked in extension from prior injury) (01/20/24 123) Total Treatment Time--free text: 18 (01/20/24 123) Past Medical History: Past Medical History: Diagnosis Date Asthma with COPD (chronic obstructive pulmonary disease) (HCC) Benign neoplasm of colon 07/28/07 adenomatous and hyperplastic/repeat colonoscopy in 1 yr COPD (chronic obstructive pulmonary disease) (HCC) Dyslipidemia, goal LDL below 100 02/01/2009 Per Lipid Taxonomy. GENERAL OSTEOARTHROSIS 08/25/2003 Other peripheral vascular disease(443.89) Tobacco use disorder 08/25/2003 Past Surgical History: Past Surgical History: Procedure Laterality Date ANESTH, [...] performed by David Boss MD at [place] [facility] [place] ILIAC ART REVASC W/ STENT,ADDL IPSILATERAL Bilateral 05/12/2021 ILIAC ART REVASC W/ STENT,ADDL IPSILATERAL performed by David Boss MD at [place] [facility] [place]AROS[place]; CHOLECYSTECTOMY 95-96 Cholecystectomy, Laproscopic PHYLLIS Germain SYNTH BYPASS, FEM-FEM 12/08/03 Fem fem bypass at [facility] by Dr. Elaine TOTAL ABD HYSTERECTOMY W/WO REMOVAL OF TUBE(S) Complete Hysterectomy in early 30s Social History/Disposition Lives with: Alone (Simultaneous filing. User may not have seen previous data.) (01/19/24 0947) Assistance available: Yes (granddaughter stays with patient at night and neighbors let her dog out during the day) (01/19/24946) Dwelling type: Single story home (01/19/24946) Entry steps: Ramp (01/19/24946) Inside steps: None (01/19/24946) Bedroom location: 1st floor (01/19/24946) Bath location: 1st floor shower (01/19/24946) Prior Level of Function Reported by: Patient (01/19/24946) Ambulation: Ambulatory with device (01/19/24946) Ambulatory Device: Rolling walker (01/19/24946) Devices at home: Rolling walker;Wheelchair (01/19/24946) Observations Consciousness: Alert (01/20/241236) Orientation: Oriented times 4 (01/20/241236) Psychosocial: Patient can communicate basic needs;Patient can converse in a social setting (01/20/241236) Pain: Patient has complaints of pain. Pain located R hip. LOWER EXTREMITY ASSESSMENT: LE MMT: see initial eval LE ROM: see initial eval P.T. Bed Mobility Supine-Sit: Maximal Assistance (x2) (01/20/241236) Transfers Sit-Stand: Maximal Assistance (max L side + min R side) (01/20/241236) Stand-Sit: Minimal Assistance (01/20/241236) W/C-Bed/Mat: Maximal Assistance (x2 stand pivot, no device) (01/20/241236) Ambulation Distance Ambulated (feet): 0 (01/20/24 1400) Assistive Device: No device (01/20/24 1400) Balance Sit (Static): Fair (-) (01/20/241236) Sit (Dynamic): Poor (+) (01/20/241236) Stand (Static): Poor (-) (01/20/241236) Stand (Dynamic): Poor (-) (01/20/241236) Patient and or Family Goal(s): to get well Patient Education Review of Precautions: Safety;Fall (01/20/241236) Safety Awareness: Patient verbalizes insight of current deficits;Patient demonstrates carryover of insight during functional tasks;Patient can communicate basic needs (01/20/241236) Preferred learning method: Combination (01/20/241236) Barriers to learning: None (01/20/241236) Method of Education: Verbalized to patient (01/20/241236) Topic of Education: Goals/plan of care Method of Education: Verbal discussion and explanation provided to patient: verbalized understanding and or agreement of this information Treatment Provided: Therapeutic Activities 18 minutes: bed mobility training transfer training Treatment Status: Treatment at bedside (01/20/241236) Alarm Status Patient positioned in: Chair (01/20/241236) With: Pressure pad alarm intact and functioning and call serna in reach (01/20/241236) Following session patient seated OOB in chair with chair alarm activated and cord plugged into callbell system. Assessment: Aleida Sierra is a 78 year old female admitted to [facility] following a fall resulting in pelvic fractures. Pt initially did not want to move due to pain but after encouragement, pt was agreeable to move to the chair. Pt required maximal assist X2 to perform bed mobility and the stand pivot tothe chair. She required maximal assist on her left side to stand due to the knee immobilizer and minimal assist to stand on her R side. Once standing, pt relied on therapists to hold her up as she did not want to put much weight through her RLE due to pain. Pt would benefit from continued physical therapy in the acute care setting to address deficits in bed mobility, transfers, ambulation, and buddy vation training while increasing balance, strength, and range of motion. Please consider post-acutecare services which may include home health, shelter, outpatient therapy or inpatient rehabilitation. The level of care will be determined in collaboration with patient, family/caregiver and care team members. Deficits requiring P.T. treatment needs: Safety;Mobility;Balance;Weakness;Endurance;Range of motion;Lower extremity strength (01/20/241236) Goals: Demonstrate Bed Mobility with: Supine to Sit: supervision (with cues) Sit to supine: supervision (with cues) Demonstrate Transfers with: Sit to stand: supervision (with cues) Stand to sit: supervision (with cues) Demonstrate Ambulation: assistive device: rolling walker distance in feet: 50 level of assistance on level surface: supervision (with cues) Increase Strength of: BLE grossly 5/5 Increase Sitting and Standing Balance: Fair Time Frame: 5-10 visits Treatment Plan: Bed mobility training, Transfer training, Gait training, ROM exercises, Strengthening exercises, and Balance activities Equipment needs: No device (01/20/241236) Anticipated Frequency (on eval): 3 to 5 times per week (01/20/241236) Mobility Assessment (AM-PAC) - Completed Daily - Assess your patient "How much help do you currently need..." Turning from your back to your side while in a flat bed without using bedrails?: Total (01/20/241236) Moving from lying on your back to sitting on the side of a flat bed without using bedrails?: Total (01/20/241236) Moving to and from a bed to a chair (including a wheelchair)?: A lot (01/20/241236) Standing up from a chair using your arms (e.g., wheelchair, or bedside chair)?: A lot (01/20/241236) To walk in hospital room?: Total (01/20/241236) Climbing 3-5 steps with a railing?: Total (01/20/241236) AM-PAC Score With Stairs : 8 (01/20/241236) AM-PAC t-Scale Score: 28.58 (01/20/241236) HLM (Highest Level of Mobility) Goal: Level 3 sit at edge of bed (01/20/241236) AM-PAC Score With Stairs : 8 (01/20/241236) Some items of AM-PAC not tested due to overall medical status, grades determined based on clinical judgement of how patient may do at this time had they been assessed. * Dakota Aguilera PT - 01/19/2024 9:47 AM ESTAssociated Order(s): ADULT PHYSICAL THERAPY CONSULT IP GENERAL EVALUATION - Physical Therapy [facility] [address] Name: Aleida Sierra Location: [facility] B535/A Date: 01/19/2024 Time: 9:47 AM Aleida Sierra is a 78 year old female. Patient Status: Inpatient Insurance: Payor: MEDICARE Plan: MEDICARE A AND B Product Type: *No Product type* Payor: AARP Plan: AARP Product Type: *No Product type* Patient Seen: at bedside, nursing cleared patient for therapy Patient Identified By: Name, ID Band, and Date Subjective: Pt seen in room, agreeable to exam in bed. Pt needed encouragement to participate. RN in room to provide pain medication. Diagnosis: s/p fall, pelvic fracture (01/19/24946) Status of treatment: Bedrest evaluation completed (01/19/24946) Orders: PT evaluation and treatment;OOB (01/19/24946) Weight Bearing Status: Weight bearing as tolerated (01/19/24946) Precautions: Alarms;Falls (L Knee brace) (01/19/24946) Total Treatment Time--free text: 11 (01/19/24946) Past Medical History: Past Medical History: Diagnosis Date Asthma with COPD (chronic obstructive pulmonary disease) (HCC) Benign neoplasm of colon 07/28/07 adenomatous and hyperplastic/repeat colonoscopy in 1 yr COPD (chronic obstructive pulmonary disease) (HCC) Dyslipidemia, goal LDL below 100 02/01/2009 Per Lipid Taxonomy. GENERAL OSTEOARTHROSIS 08/25/2003 Other peripheral vascular disease(443.89) Tobacco use disorder 08/25/2003 Past Surgical History: Past Surgical History: Procedure Laterality Date ANESTH, [...] performed by David Boss MD at [place] [facility] ILIAC ART REVASC W/ STENT,ADDL IPSILATERAL Bilateral 05/12/2021 ILIAC ART REVASC W/ STENT,ADDL IPSILATERAL performed by David Boss MD at [place] [facility] LAPAROSCOPY; CHOLECYSTECTOMY 95-96 Cholecystectomy, Laproscopic PHYLLIS Germain SYNTH BYPASS, FEM-FEM 12/08/03 Fem fem bypass at [facility] by Dr. Elaine TOTAL ABD HYSTERECTOMY W/WO REMOVAL OF TUBE(S) Complete Hysterectomy in early 30s Social History/Disposition Lives with: Alone (01/19/24946) Assistance available: Yes (01/19/24946) Dwelling type: Single story home (01/19/24946) Entry steps: Ramp (01/19/24946) Inside steps: None (01/19/24946) Bedroom location: 1st floor (01/19/24946) Bath location: 1st floor full bath (01/19/24946) Prior Level of Function Reported by: Patient (01/19/24946) Ambulation: Ambulatory with device (01/19/24946) Ambulatory Device: Rolling walker (01/19/24946) Devices at home: Rolling walker;Wheelchair (01/19/24946) Observations Consciousness: Alert (01/19/24946) Orientation: Oriented times 4 (01/19/24946) Psychosocial: Patient can communicate basic needs;Patient can converse in a social setting (01/19/24946) Pain: Patient has complaints of pain. Pain located R hip/pelvis. 10/28 LOWER EXTREMITY ASSESSMENT: R LE MMT: Hip grossly 2/5. Knee grossly 2/5. Ankle grossly 4/5 R LE ROM: WFL L LE MMT: Hip grossly 2/5. Knee not tested. Ankle grossly 4/5. L LE ROM: Knee immobilized in extension *overall assessment limited due to pain Patient and or Family Goal(s): decreased pain Patient Education Safety Awareness: Patient verbalizes insight of current deficits;Needs cueing supervision () Preferred learning method: Combination (01/19/24946) Barriers to learning: Emotional (01/19/24946) Method of Education: Verbalized to patient (01/19/24946) Topic of Education: Goals/plan of care Method of Education: Verbal discussion and explanation provided to patient: verbalized understanding and or agreement of this information Treatment Provided: Evaluation Moderate Complexity 11 minutes - 39462: Patient was cooperative during treatment session. Moderate complexity evaluation performed and 1-2 personal factors or comorbidities were identified that will impact plan of care, including multiple orthopedic injuries and history of COPD. Patient presents with limitations in strength, bed mobility, transfers, gait, balance, and endurance, which will impact plan of care. These limitations will be addressed by the goals set for this patient. Alarm Status Patient positioned in: Bed (01/19/24946) With: Bed alarm intact and functioning and call serna in reach (01/19/24946) Assessment: Aleida Sierra is a 78 year old female admitted with fall, R pelvic fracture. Pt has previous L LE injury (knee brace intact). Pt is WBAT on B LE's. Pt has gross LE weakness on exam howeverfull exam limited due to pt reports of severe pain. Pt declined OOB mobility despite encouragement.Pt may benefit from continued PT services to work on deficits to maximize functional independence. Deficits requiring P.T. treatment needs: Mobility;Balance;Weakness;Lower extremity strength (01/19/24946) Goals: Increase Strength of: LE's grossly 4/5 Assess as able: Functional Mobility Time Frame: 10 visits Treatment Plan: Strengthening exercises Anticipated Frequency (on eval): 3 to 5 times per week (01/19/24946) AM-PAC assessment not scored at this time due to bedrest evaluation. Please refer to future AM-PAC calculations of functional mobility as they become available. * Marjorie Smith OT - 01/19/2024 9:47 AM ESTAssociated Order(s): ADULT OCCUPATIONAL THERAPY CONSULT IP GENERAL EVALUATION - Occupational Therapy Bedrest evaluation [address] [address] Name: Aleida Sierra [place] [facility] B5/A Date: 01/19/2024 Time: 9:47 AM Aleida Sierra is a 78 year old female. Patient Status: Inpatient Insurance: Payor: MEDICARE Plan: MEDICARE A AND B Product Type: *No Product type* Payor: AARP Plan: AARP Product Type: *No Product type* Patient Seen: at bedside, nursing cleared patient for therapy Patient Identified By: Name, ID Band and Date Diagnosis: R pubic rami and R sacral fractures s/p fall (01/19/24946) Status of treatment: Bedrest evaluation completed (01/19/24946) Orders: OT evaluation and treatment (01/19/24946) Weight Bearing Status: Weight bearing as tolerated;RLE;LLE (01/19/24946) Precautions: Alarms;Falls;Safety (L knee immobilizer) (01/19/24946) Total Treatment Time: 8 (01/19/24946) Past Medical History: Past Medical History: Diagnosis Date Asthma with COPD (chronic obstructive pulmonary disease) (HCC) Benign neoplasm of colon 07/28/07 adenomatous and hyperplastic/repeat colonoscopy in 1 yr COPD (chronic obstructive pulmonary disease) (HCC) Dyslipidemia, goal LDL below 100 02/01/2009 Per Lipid Taxonomy. GENERAL OSTEOARTHROSIS 08/25/2003 Other peripheral vascular disease(443.89) Tobacco use disorder 08/25/2003 Past Surgical History: Past Surgical History: Procedure Laterality Date ANESTH, [...] performed by David Boss MD at [place] [facility] ILIAC ART REVASC W/ STENT,ADDL IPSILATERAL Bilateral 05/12/2021 ILIAC ART REVASC W/ STENT,ADDL IPSILATERAL performed by David Boss MD at [place] [facility] LAPAROSCOPY; CHOLECYSTECTOMY 95-96 Cholecystectomy, Laproscopic PHYLLIS Germain SYNTH BYPASS, FEM-FEM 12/08/03 Fem fem bypass at [facility] by Dr. Elaine TOTAL ABD HYSTERECTOMY W/WO REMOVAL OF TUBE(S) Complete Hysterectomy in early 30s Social History/Disposition Lives with: Alone (Simultaneous filing. User may not have seen previous data.) (01/19/24946) Assistance available: Yes (granddaughter stays with patient at night and neighbors let her dog out during the day) (01/19/24946) Dwelling type: Single story home (01/19/24946) Entry steps: Ramp (01/19/24946) Inside steps: None (01/19/24946) Bedroom location: 1st floor (01/19/24946) Bath location: 1st floor shower (01/19/24946) Prior Level of Function Reported by: Patient (01/19/24946) Ambulation: Ambulatory with device (01/19/24946) Ambulatory Device: Rolling walker (01/19/24946) Grooming: Independent (01/19/24946) Bathing: Independent (01/19/24946) Dressing: Independent (except assistance with underwear and L knee immobilizer) (01/19/24946) Feeding: Independent (01/19/24946) Toileting: Independent (01/19/24946) Meal Prep: Dependent (01/19/24946) Homemaking: Dependent (01/19/24946) Shopping: Dependent (01/19/24946) Driving: Yes (but not currently) (01/19/24946) Durable Medical Equipment at home: Rolling walker;Wheelchair;Straight cane (recliner lift chair) (01/19/24946) Subjective: patient was pleasant and cooperative, agreeable to OT evaluation Pain: Patient has complaints of pain. Pain located- R hip, 10/28. Observations Consciousness: Alert (01/19/24946) Orientation: Oriented times 4 (01/19/24946) Psychosocial: Patient can communicate basic needs;Patient can converse in a social setting (01/19/24946) Other Findings Endurance: Fair (01/19/24946) Light touch sensation: LUE;RUE;Intact (01/19/24946) Coordination: LUE;RUE;Intact (01/19/24946) Current Functional Status: Bilateral Upper Extremity Range of Motion: WNL (01/19/24946) Strength Assessment: (4-/5 BUE) (01/19/24946) Alarm Status Patient positioned in: Bed (01/19/24946) With: Bed alarm intact and functioning and call serna in reach (01/19/24946) Patient and Family Goals: to get well Patient Education Education Topic: Role of OT (01/19/24946) Review of Precautions: Fall;Safety (01/19/24946) Method of Education: Verbalized to patient (01/19/24946) Education Provided to: Patient (01/19/24946) Response to Education: Receptive and agreeable to education (01/19/24946) Barriers to learning: None (01/19/24946) Preferred learning method: Combination (01/19/24946) Treatment Provided: Evaluation Low Complexity 8 minutes - 33916: Patient was cooperative and pleasant during treatment session. Low complexity evaluation performed and decreased strength deficits were identified that result in activity limitation. The patient does not have any comorbidities that affect occupational performance. There were no modifications necessary to complete the evaluation. Deficits Requiring O.T. Treatment: Deficits requiring O.T. treatment needs: Upper extremity strength (01/19/24946) Assessment: Patient is a 78 year old female admitted to [facility] on 01/18/24 with Dx of s/p fall. Patient with R pubic rami fracture and R sacral fracture. Patient had a L patella injury in November for which she has an immobilizer. Patient is WBAT B LE (WBAT L LE per patient). Patient demonstrates deficits in bilateral UE strength and activity tolerance. Patient declined OOB secondary to pain. Will complete OOB as able. Goals: Increase B UE strength 1/2 grade above eval Completion of OOB and self-care evaluations as able Goal Time Frame: 10 visits Treatment Plan: Upper extremity strengthening and Completion of OOB and self- care evaluations as able Anticipated Frequency (on eval): 3 to 5 times per week (01/19/24946) AM-PAC HLM (Highest Level of Mobility) Goal: Level 2 bed activities/dependent transfer (01/19/24 0800) AM-PAC assessment not scored at this time due to self-care not being assessed. Please refer to future AM-PAC calculations of functional mobility as they become available. * David Byrd, [facility] - 01/19/2024 12:47 AM ESTAssociated Order(s): ANTI- COAGULATION CONSULT IP PHARMACY ENOXAPARIN IP CONSULT [address] [address] Name: Aleida Sierra Location: Date: 01/19/2024 Time: 12:42 AM GENERAL INFORMATION: Principle Problem: No Principal Problem: There is no principal problem currently on the Problem List. Please update the Problem List and refresh. Criteria met to warrant anti-Xa level monitoring for enoxaparin: Age greater than or equal to 65 years Prior to admission The patient was not on another anticoagulant LABS: Lab Results Component Value Date/Time CREAT 1.5 (H) 01/18/2024 10:18 PM CREAT 1.5 (H) 06/25/2023 08:10 AM CREAT 1.6 (H) 05/23/2023 07:56 AM CREAT 1.8 (H) 11/02/2019 09:13 AM CREAT 1.6 (H) 04/15/2019 08:31 AM CREAT 1.6 (H) 04/09/2019 09:31 AM Lab Results Component Value Date/Time HGB 11.1 (L) 01/18/2024 10:18 PM HGB 13.6 05/23/2023 07:56 AM HGB 12.6 05/31/2022 10:15 AM HGB 13.0 04/09/2019 09:31 AM HGB 12.4 06/13/2018 10:20 AM HGB 13.4 05/30/2018 08:50 AM Lab Results Component Value Date/Time PLT 145 01/18/2024 10:18 PM PLT 254 05/23/2023 07:56 AM PLT 199 05/15/2021 06:08 AM PLT 182 05/14/2021 06:08 AM PLT 184 05/13/2021 05:23 AM PLT 202 05/04/2021 08:35 AM PLT 225 04/09/2019 09:31 AM PLT 258 06/13/2018 10:20 AM PLT 319 05/30/2018 08:50 AM Lab Results Component Value Date/Time INR 1.1 01/18/2024 10:18 PM INR 1.02 11/08/2003 11:43 AM Serum creatinine: 1.5 mg/dL (H) 01/18/242217 Estimated creatinine clearance: 23.9 mL/min (A) Nomogram selection: . Anti-Xa Level (units/mL) Hold Next Dose Dosage Change Next Anti-Xa Level Less than 0.2 No Increase dose(s) by 10 mg 4 hours after 4th dose of new dosing regimen 0.2-0.5 No No Within 1 week Greater than 0.5-1.0 No Evaluate renal function for acute or chronic insufficiency necessitating change to SubQ heparin, ifenoxaparin remains appropriate decrease dose(s) by 10 mg 4 hours after 4th dose of new dosing regimen Greater than 1.0 Consider the flow diagram for dosing and monitoring guidance No results found for: "HEPLMWT" Date Dose(mg) Frequency Date & Time of Last Dose Anti-Xa Level (units/mL) New Dose Next Anti-XaLevel Due 01/18 20 mg Daily 0600 (q24h) 01/20 1000 Recommendation: The patient will be started on 20 mg Daily and an anti-Xa level will be obtained at steady state (4hours after the previous dose). Note: Patient's current renal function required dose adjusting to q24h. Pharmacy will continue to follow and adjust dose as appropriate. Please contact Pharmacy at [phone] for any questions. Chris Stanton DO - 01/18/2024 10:36 PM ESTAssociated Order(s): ADULT/PEDS ORTHOPAEDICS CONSULT IP ORTHOPAEDIC SURGERY CONSULTATION NOTE Name: Aleida Sierra Date: 01/18/2024 Consulting Service: ED Reason for Consultation: R Pelvic Fracture Care for the patient, including evaluation, review of imaging, and/or planning of treatment began at 2220. History of Presenting Illness: This is a 78 year old female who presents after a FFS and having immediate pain in their buttocks/hip. The patient normally ambulates with walker and was not using it today when she fell. She has been using it while wearing an L leg brace. She was unable to ambulate after their fall due to pain. She was also found on imaging to have a pelvic hematoma. They have a PMH relevant for peripheral artery disease, dyslipidemia, prior DVT, hypertension, COPD, chronic mesenteric ischemia, abdominal aortic aneurysm, history of multiple falls . Tobacco use?: Yes, Active Smoker Family or personal Hx of DVT/PE? Yes Anticoagulation use?: ASA 81 Patient denies metal allergy Patient denies numbness, tingling Past Medical History: Past Medical History: Diagnosis Date Asthma with COPD (chronic obstructive pulmonary disease) (HCC) Benign neoplasm of colon 07/28/07 adenomatous and hyperplastic/repeat colonoscopy in 1 yr COPD (chronic obstructive pulmonary disease) (HCC) Dyslipidemia, goal LDL below 100 02/01/2009 Per Lipid Taxonomy. GENERAL OSTEOARTHROSIS 08/25/2003 Other peripheral vascular disease(443.89) Tobacco use disorder 08/25/2003 Past Surgical History: Past Surgical History: Procedure Laterality Date ANESTH, [...] performed by David Boss MD at [place] [facility] ILIAC ART REVASC W/ STENT,ADDL IPSILATERAL Bilateral 05/12/2021 ILIAC ART REVASC W/ STENT,ADDL IPSILATERAL performed by David Boss MD at [place] [facility] LAPAROSCOPY; CHOLECYSTECTOMY 95-96 Cholecystectomy, Laproscopic PHYLLIS Germain SYNTH BYPASS, FEM-FEM 12/08/03 Fem fem bypass at [facility] by Dr. Elaine TOTAL ABD HYSTERECTOMY W/WO REMOVAL OF TUBE(S) Complete Hysterectomy in early 30s Allergies: Review of patient's allergies indicates: Allergen Reactions Diamox [Acetazolamide] Percodan Psych complications Shakes really bad Home medications: Prior to Admission medications Medication Sig Last Dose Discont. Tiotropium Excelsior Monohydrate 18 MCG Inhalation Capsule (Spiriva HandiHaler) inhale contents of 1 capsule by mouth once daily Amoxicillin-Pot Clavulanate 875-125 MG Oral Tablet (Augmentin) TAKE 1 TABLET BY MOUTH EVERY 12 HOURS FOR 7 DAYS Losartan Potassium 50 MG Oral Tablet (Cozaar) Take 1 Tablet by mouth in the morning. Simvastatin 20 MG Oral Tablet (Zocor) Take 1 Tablet by mouth in the morning. In the morning.. Ventolin HFA 108 (90 Base) MCG/ACT Inhalation Aerosol Solution Inhale 2 Puffs by mouth every 4 hours as needed for Wheezing. Albuterol Sulfate (2.5 MG/3ML) 0.083% Inhalation Nebulization Solution (Proventil) Inhale 1 Vial via nebulizer every 6 hours as needed for Wheezing. Acetaminophen 325 MG Oral Tablet (Tylenol) Take by mouth 3 Tablets every 6 hours . 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 Patient not taking: Reported on 09/09/2023 CHILDRENS ASPIRIN 81 MG OR CHEW 1 TABLET DAILY Family History: non-contributory except as listed in HPI or in social history Social History: Social History Tobacco Use Smoking status: Every Day Current packs/day: 0.50 Average packs/day: 0.5 packs/day for 60.0 years (30.0 ttl pk-yrs) Types: Cigarettes Smokeless tobacco: Never Tobacco comments: 07/03/2023 1/2 pack per day, declined pamphlet Vaping Use Vaping status: Never Used Substance Use Topics Alcohol use: No Drug use: No Physical Exam: Blood pressure 140/69, pulse 83, temperature 36.8 C (98.2 F), temperature source Tympanic, resp. rate 18, SpO2 97%, not currently . General: Appears laying on bed in NAD. Awake and alert. MSK: RUE: Skin intact throughout Non-tender to palpation over: Clavicle, shoulder, humerus, elbow, forearm, wrist, hand, and fingers. Motor: intact to AIN/PIN/ulnar distributions Sensation: SILT to medial/ulnar/radial distributions Palpable radial pulse LUE: Skin intact throughout Non-tender to palpation over: Clavicle, shoulder, humerus, elbow, forearm, wrist, hand, and fingers. Motor intact to AIN/PIN/ulnar distributions SILT to medial/ulnar/radial distributions Palpable radial pulse Pelvis: Nontender to AP and lateral compression RLE: skin intact throughout No pain with log roll. Non-tender to palpation over: Hip, thigh, knee, leg, ankle, foot, and toes. Motor: wiggles toes, DF/PF at ankle, unable to straight leg raise Sensation: SILT in sa/vaz/sp/dp/t dist Palpable PT pulse LLE: skin intact throughout No pain with log roll. Non-tender to palpation over: Hip, thigh, knee, leg, ankle, foot, and toes. Motor: wiggles toes, DF/PF at ankle, unable to straight leg raise Sensation: SILT in sa/vaz/sp/dp/t dist Palpable PT pulse Imaging: CT Pelvis (01/18/2024): Displays minimally displaced fracture of R superior and inferior pubic ramiand R sacral ala Labs: Lab Results Component Value Date/Time HGB 11.1 (L) 01/18/2024 10:18 PM HGB 13.6 05/23/2023 07:56 AM HGB 13.0 04/09/2019 09:31 AM HGB 12.4 06/13/2018 10:20 AM Lab Results Component Value Date/Time INR 1.02 11/08/2003 11:43 AM Lab Results Component Value Date/Time WBC 10.68 01/18/2024 10:18 PM WBC 6.52 04/09/2019 09:31 AM WBC, URINE - [facility] 0-2 06/03/2020 09:37 AM No results found for: "CRP" No results found for: "HEMOGLOBIN A1C" Assessment: 78 year old female s/p FFS p/w minimally displaced fracture of R sup/inf pubic rami andR sacral ala Plan: No plan for urgent ortho OR at this time WBAT BL LE using assisted device as needed Remainder of care per primary team - Provisional care provided by the percussion tuner resident, definitive care to be determined by an ortho attending at a later date -Given the nature of the patient's osteoporotic/fragility fractures, along with the patient's underlying co-morbidities, the patient was informed that she is at higher risk of complications includingbut not limited to nonunion, malunion, infection, loss of fixation/hardware failure, hematoma/seroma, and the possible need for additional procedures/surgeries as indicated. Provisional care and supervision provided by Dr. Fisher STAFF NOTE I reviewed the history, physical examination and other findings with the resident. I discussed the management of the patient with the resident and I agree with the plan. Chris Fisher DO 01/19/2024 9:49 AM documented in this encounter Nursing Notes * Peyton Diaz RN - 01/20/2024 8:58 AM EST 0800 Blood pressure 122/68, pulse 86, temperature 37.1 C (98.8 F), temperature source Tympanic,resp. rate 16, height 1.575 m (5' 2"), weight 49 kg (108 lb), SpO2 98%, not currently . Patient AAOx4. VSS. Patient has c/o pain in pelvic area, medicated for same. Patient has no c/o SOBat this time. Lungs diminished bilaterally on RA. LLE immobilzer in place. R elbow skin tear cleaned, dressing changed. Bottom pink, cream applied. Call serna in reach. See flowsheet for further assessments. * Peyton Diaz RN - 01/19/2024 9:56 AM EST 0800 Blood pressure 114/69, pulse 84, temperature 36.7 C (98 F), temperature source Tympanic, resp. rate 18, height 1.575 m (5' 2"), weight 49 kg (108 lb), SpO2 91%, not currently . Patient AAOx4. VSS. Patient has c/o pain in pelvic area, medicated for same. Patient has no c/o SOBat this time. Lungs diminished bilaterally on RA. NSS running at 100ml/hr. LLE immobilzer in place.R elbow skin tear cleaned, dressing changed. Bottom pink, cream applied. Call serna in reach. See flowsheet for further assessments. 1130 Attempted to pull stark per order, but patient refused stating she wants to "speak to the doctor before I let you remove anything." Dr Briscoe made aware via tiger text. Awaiting orders 1300 Spoke to patient again in regards to removing stark. Patient apprehensive but agreeable at this time. Still requests to speak to Dr in regards to placing a new stark. Patient educated and dr to round soon. * Flako Iglesias RN - 01/19/2024 1:50 AM EST Dual Licensed Skin Assessment completed by Flako Bowen RN and Shani Mistry RN. The patient is/has a N/A Skin Breakdown (includes non blanchable erythema): Yes. Wound Type: Skin tear, location right elbow Wound Ostomy Nurse Notified: No - wound ostomy not needed at this time Nursing interventions: apply non-adherent dressing and keep wound clean, offload pressure *scattered ecchymosis, scab on right knee, bottom pink but blanchable * Tiffany Pollack RN - 01/19/2024 12:51 AM EST Hand-Off - Nurse Communication Note Name: Aleida Sierra Location: 19/ Date: 01/19/2024 Time: 12:52 AM Sending to: [id number] Safety Concerns: Fall Risk Allergies: Diamox [acetazolamide] and Percodan Code Status: Full Code Isolation: None Attention to: Flako Iglesias Report from: Tiffany Pollack RN Phone extension: [phone] Patient arriving via: Stretcher Reason for SBAR handoff: Admission Situation/Background Patient is a transfer from [facility] after fall from standing as she lost her balance and fell backwards into a wall resulting in right pubic rami and sacral fractures with a pelvic hematoma found on outside hospital's CT. While patient has been ER, she received total of 50 mcg of fentanyl and fluids. Patient has a knee immobilizer on L leg from previous fall in November. Admission date: 01/18/2024 Patient Service: Trauma Surgery [[id number]] Attending Provider: Elida Sr DO Admitting diagnosis: Fall Chief Complaint: transfer of records Problem list: Active Problems: * No active hospital problems. * Resolved Problems: * No resolved hospital problems. * Level of Care: Med Surg [3] Assessment Vital Signs: BP: 148/63 (01/19/24) Temp: 36.8 C (98.2 F) (01/18/242132) Pulse: 96 (01/19/24) Resp: 26 (01/19/24) SpO2: 95 % (01/19/24) Fall Scale: Fall Score: 60 (01/19/2410) Fall Interventions: Bed at low level;Yellow armband applied/intact and on patient;Fall risk sign outside room;Floor free of clutter;Walk path free of obstacles;Fall risk sign above bed (01/19/2410) Neurological: Romero Coma Scale - For patients greater than two years old Eyes Open: Spontaneous (01/19/24) Best Verbal Response: Verbally appropriate for age (01/19/24) Best Motor Response: Obeys commands appropriate for age (01/19/24) Coma Score: 15 (01/19/24) Additional Neurological Information: N/A Respiratory: Respiratory WNL: WNL- within normal limits (01/18/242132) Oxygen therapy/ Mechanical vent Supplemental O2 Delivery: Room Air, None (01/19/24) Additional Respiratory Information: N/A Cardiac: Cardiovascular WNL: WNL - within normal limits (01/18/242132) Rhythm: Regular;NSR (01/18/242132) Extremities: +Sensation;Right;Left;Upper;Lower;Warm (01/19/24) Pulses Right: Radial +;Post Tibial +;Palpable (01/19/24) Pulses Left: Radial +;Post Tibial +;Palpable (01/19/24) Capillary Refill: 1-2 seconds (01/19/24) Additional Cardiac Information: N/A GI/: Abdomen: Soft;Non-distended;Non-tender;Bowel sounds present all quadrants (01/18/242132) Additional GI/ Information: N/A Urethral Catheter (Active) Site Assessment Clean;Skin intact 01/18/242199 Securement Method Securing device (Describe) (stat lock) 01/18/242199 Catheter secured to leg? Yes 01/18/242199 Catheter bag below bladder? Yes 01/18/242199 Has IUBC been removed? (If yes, ensure the order is discontinued.) No, pelvic injury or trauma (radical pelvic surgery, pelvic instability) 01/18/242199 Output (mL) 600 mL 01/18/242349 Number of days: 1 Integumentary: Skin Description: Dry;Warm (01/18/242132) Skin Color: Flesh Tone (01/18/242132) Additional Integumentary Information: N/A C-Diff: Has the patient had 3 or more loose stools in the last 24 hours?: No (01/18/242313) Restraints: No orders of the defined types were placed in this encounter. Lines: Urethral Catheter (Active) Site Assessment Clean;Skin intact 01/18/242199 Securement Method Securing device (Describe) 01/18/242199 Catheter secured to leg? Yes 01/18/242199 Catheter bag below bladder? Yes 01/18/242199 Has IUBC been removed? (If yes, ensure the order is discontinued.) No, pelvic injury or trauma (radical pelvic surgery, pelvic instability) 01/18/242199 Output (mL) 600 mL 01/18/242349 Number of days: 1 Peripheral Line Lower;Posterior;Right Arm 22 Gauge (Active) Status Capped/Locked;Flushes easily 01/18/242146 Tubing Changed N/A 01/18/242146 Phlebitis Scale 0 01/18/242146 Infiltration Scale 0 01/18/242146 Site Description (Other) Without redness, swelling or drainage 01/18/242146 Site Intervention None required 01/18/242146 Dressing Assessment Dressing clean, dry, and intact;Transparent dressing 01/18/242146 Dressing Intervention None required 01/18/242146 Number of days: 1 Peripheral Line Left;Posterior Wrist 20 Gauge (Active) Site Description (Other) Without redness, swelling or drainage 01/18/242217 Site Intervention None required 01/18/242217 Dressing Assessment Dressing clean, dry, and intact;Transparent dressing 01/18/242217 Number of days: 1 Arterial Line Left Radial (Active) Number of days: 982 Labs: Labs This Encounter BASIC METABOLIC PANEL - Abnormal; Notable for the following components: Result Value Ref Range BUN 25 6 - 20 mg/dL CREATININE 1.5 0.5 - 1.0 mg/dL EGFR 35 >=60 mL/min SODIUM 134 135 - 146 mmol/L All other components within normal limits CBC - Abnormal; Notable for the following components: HGB 11.1 12.0 - 15.3 g/dL HCT 33.8 36.0 - 45.2 % All other components within normal limits PT INR - Normal Narrative: Warfarin Therapy INR: 2.0-3.0 conventional anticoagulation INR: 2.5-3.5 high intensity anticoagulation APTT - Normal Narrative: Anticoagulation may affect testing. Refer to [employer] Test Catalog for a listof effects. AST - Normal LACTATE - Normal DIFFERENTIAL, AUTOMATED - Normal CBC WITH WBC DIFFERENTIAL Narrative: The following orders were created for panel order CBC WITH WBC DIFFERENTIAL. Procedure Abnormality Status --------- ------ CBC[[id number]] Abnormal Final result DIFFERENTIAL, AUTOMATED[[id number]] Normal Final result Please view results for these tests on the individual orders. TYPE AND SCREEN TOXICOLOGY, URINE SCREEN W/O CONFIRMATION ETHANOL, MEDICAL MRSA SCREEN, PCR SARS-COV-2 (COVID-19), NAAT URINALYSIS, REFLEX TO CULTURE (NOT FOR NEUTROPENIC PATIENTS) Narrative: The following orders were created for panel order URINALYSIS, REFLEX TO CULTURE (NOT FOR NEUTROPENIC PATIENTS). Procedure Abnormality Status --------- ------ URINALYSIS, REFLEX TO CU...[[id number]] URINALYSIS, REFLEX TO CU...[[id number]] Please view results for these tests on the individual orders. URINALYSIS, REFLEX TO CULTURE (CUP ONLY) URINALYSIS, REFLEX TO CULTURE Diet: Orders Placed This Encounter Procedures Regular Diet Additional Diet Information: N/A Intake and Output: Intake/Output Summary (Last 24 hours) at 01/19/2024 0052 Last data filed at 01/18/2024 2350 Gross per 24 hour Intake -- Output 615 ml Net -615 ml Patient Belongings and Home Medications Patient Belongings at Bedside Belongings at Bedside: Clothing;Other valuables (01/18/242205) Clothing: Pajamas;[place] (01/18/242205) Other Valuables: Purse (01/18/242205) Patient Belongings Sent Home (Does not apply to Ambulatory areas) Belongings Sent Home: None (01/18/242205) Patient Belongings Sent to Safe/Locker Belongings Sent to Safe: None (01/18/242205) Patient Medications Medications Brought by Patient?: No (01/18/242205) Recommendations/Follow up Goals/Plan of Care: Pain management Consults not completed: PT/OT Anticipated tests/studies/procedures: Medication Reconcilliation completed for this Admission? No documented in this encounter ED Notes * Jamie Brooks MD - 01/18/2024 9:59 PM EST HISTORY OF PRESENT ILLNESS Aleida Sierra is a 78 year old female who presents to the ED for evaluation of transfer of records. The patient was seen at 01/18/242158. 78-year-old female with a history of peripheral artery disease, dyslipidemia, prior DVT, hypertension, COPD, chronic mesenteric ischemia, abdominal aortic aneurysm, history of multiple falls presenting to the ED as a transfer from [facility] for trauma and orthopedic evaluation after a ground level fall occurring at home earlier today at approximately 10:30 a.m.. Prior facility reports presence of right pubic rami and sacral fractures with a pelvic hematoma found on CT. Patient states that she lost her balance and stumbled backwards and bumped into a wall, causing her to fall onto her buttocks. Reports severe pain in her pelvis. Denies chest pain, shortness of breath, abdominal pain. States that she bumped her head against the wall but did not hit her head on the ground She does note that she fell last month while at [employer] after tripping on uneven ground and has a left patella fracture and has been wearing a left leg immobilizer. The patient's allergies, past history, and medications were reviewed. PHYSICAL EXAM Initial Vitals (see all): BP 137/75 | Pulse 83 | Resp 14 | Temp 98.2 | O2 98 %, Room Air, None | Weight 48.99 kg | Height 157.5 cm | BMI 19.75 kg/m2 Initial Pain Assessment (see all): 10 (severe pain)/10, Unable to verbalize, location: R hip ([facility] Adult Scale 0-10) Physical Exam Constitutional: Appearance: She is not ill-appearing, toxic-appearing or diaphoretic. HENT: Head: Normocephalic and atraumatic. Nose: Nose normal. Mouth/Throat: Mouth: Mucous membranes are moist. Eyes: Conjunctiva/sclera: Conjunctivae normal. Pupils: Pupils are equal, round, and reactive to light. Cardiovascular: Rate and Rhythm: Normal rate and regular rhythm. Pulses: Normal pulses. Heart sounds: Normal heart sounds. Pulmonary: Effort: Pulmonary effort is normal. Breath sounds: Normal breath sounds. Abdominal: General: Abdomen is flat. Palpations: Abdomen is soft. Tenderness: There is no abdominal tenderness. Musculoskeletal: Cervical back: Normal range of motion. Comments: Pain with motion of lower extremities, tenderness to palpation over pelvis Skin: General: Skin is warm and dry. Capillary Refill: Capillary refill takes less than 2 seconds. Neurological: General: No focal deficit present. Mental Status: She is alert and oriented to person, place, and time. PROCEDURES AND TREATMENTS ED Orders | ED Results MEDICAL DECISION MAKING Nursing notes and vital signs were reviewed. ED consults were placed. ED Course as of 01/19/24 0846 Sat Jan 18, 20242215 Reviewed lab workup prior facility: Mildly anemic to 11.4. Leukocytosis to 16. Normal coag studies. Creatinine 1.48. [SK] 2222 Reviewed imaging workup from prior facility: Right hip x-ray without acute findings in the right hip. Chest x-ray without acute cardiopulmonary disease. Pelvis CT without contrast revealing acute fractures to the right pubic rami and right sacrum with mild associated anterior pelvic hematoma and mild hematoma along the right pubic ramus. Right asymmetric soft tissue prominence of the collapse rectum. CT cervical spine with multilevel degenerative changes without fracture. CT head with cerebral atrophy but without acute changes [SK] 2225 Patient received Tylenol and fentanyl at prior facility [SK] 2226 EKG from prior facility reviewed and per my interpretation normal sinus rhythm at 83 beats perminute without ischemic changes [SK] 2231 HGB(!): 11.1 [SK] 2231 WBC: 10.68 [SK] 2300 aPTT: 30 [SK] 2300 AST: 16 [SK] 2301 Prothrombin Time: 14.5 [SK] 2301 INR: 1.1 [SK] 230 Lactate, Whole Blood: 1.0 [SK] 2301 Basic Metabolic Panel(!) Hyponatremic, elevated creatinine and BUN at patient's baseline consistent with CKD [SK] [place] Jan 19, [address] Chest/Abdomen/Pelvis with IV Contrast without Oral Contrast IMPRESSION 1. Displaced right superior and inferior pubic rami fractures. 2. Minimally displaced right sacral ala fracture with extension to the right sacroiliac joint. No definite sacroiliac joint diastasis. 3. Enlarging ground-glass nodule in the right upper lobe measuring up to 1 centimeter with a 0.5 centimeter solid component. Proceed with a complete chest CT examination for further evaluation as early as possible (Per Fleischner Society guidelines). 4. Extraperitoneal and presacral stranding. No organized fluid collections. 5. Intramuscular hematoma of the medial compartment musculature of the right thigh without evidenceof active contrast extravasation. 6. 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 Incompletely evaluated [SK] ED Course User Index [SK] Rey Spicer DO Differential Diagnoses Based on my history, physical exam, and evaluation, the differential includes, but is not limited, to the following diagnoses: Pubic rami fracture, sacral fracture, pelvic hematoma, pelvic hemorrhage. 78-year-old female with a history of peripheral artery disease, dyslipidemia, prior DVT, hypertension, COPD, chronic mesenteric ischemia, abdominal aortic aneurysm, history of multiple falls presenting to the ED as a transfer from [facility] for trauma and orthopedic evaluation after a ground level fall occurring at home earlier today at approximately 10:30 a.m. on arrival, patient was hemodynamically stable and in no distress. Exam significant for pain with motion of the lower extremities and tenderness to palpation over the pelvis. Reviewed workup from prior facility as noted above. Lab workup obtained as noted above. CT chest abdomen pelvis with IV contrast obtained to e valuate pelvic hematoma seen on prior CT for any evidence of active bleeding. Trauma Surgery and Orthopedic Surgery were consulted for admission and possible surgical interventions. Patient did endorse significant pain with any motion. Pain was controlled with fentanyl while in the emergency department and patient reported improvement after administration. Patient was evaluated bedside by Trauma Surgery and Orthopedic Surgery and was admitted to the Trauma Surgery Service in stable condition. Clinical Impressions Fall Disposition Admitted. I discussed the management of this patient with the admitting provider and I made a decision to admit the patient. Admission Order Ordered Status . 01/19/24 0036 Admit for Inpatient Services (incl ZPO) ONCE Completed Jamie Brooks was the attending physician who supervised the care of this patient. Rey Spicer DO ATTENDING ATTESTATION I have seen and examined this patient at 01/18/2024 visit. I have discussed the patient's management with the provider listed above and agree with the note, findings, and plan of care. I personally made/approved the management plan and take responsibility for patient management. Jamie Brooks MD documented in this encounter Miscellaneous Notes * Ancillary Progress Note - Keke Haque, MSN - 01/28/2024 8:23 AM EST CARE MANAGEMENT - ADULT DISCHARGE [place] [facility] [place] [address] Name: Aleida Sierra [place] [facility] [place] Date: 01/28/2024 Time: 12:27 PM The following coordination of care and discharge plan has been coordinated with the care team, patient, family and/or caregiver according to the patients needs and preferences. Discharge Discharge Second Notice Important Message from Medicare delivered: Yes (01/28/241225) Date Delivered: 01/28/24 (01/28/241225) Was Caregiver/Family/Facility contacted regarding discharge: Yes (01/28/241225) Discharge Transportation: BLS (01/28/241225) Date of scheduled discharge transportation: 01/28/24 (01/28/24 122) Time of scheduled discharge transportation: 1245 (01/28/24 122) Final Discharge Plan (Complete only at time of Discharge): SNF (01/28/24 1226) Destination - Admitted Since 01/18/2024 Service Provider Services Address Phone Fax Patient Preferred Last Updated [address] [phone] -- Keke Haque, ABHISHEK 01/21/2024 1023 Internal Comment last updated by Keke Haque MSN 01/20/2024 1333 First choice Narrative: Spoke with Maliha at [facility]. She is aware we are waiting for a ride for Aleida. TT to nurse to try to wean oxygen. TT [employer] to be made aware awaiting a ride. States [facility] willtry to waste picker ride if there are cancellations. Ride picked up for 1245 via [employer]. Patient to discharge via BLS to [facility] at 1245. Reviewed IMM with Aleida and informed that patient is medically stable for discharge, however, may have 4 hours to consider whether they want to appeal discharge. Aleida waived waiting those 4 hours and wishes for discharge to occur prior to that time. * Care Plan - Le Echeverria RN - 01/27/2024 4:26 PM EST Clinical Goal(s): Pt will remain free from falls (01/27/24 0810) Possible barriers to meeting goal(s)/advancing plan of care: Pt's condition Stability of the patient: Moderately stable - low risk of patient condition declining or worsening Summary regarding today's goal(s): Met: pt did not fall Recommendations: continue fall precautions * Ancillary Progress Note - Negrita Luna RDN - 01/27/2024 3:28 PM EST CLINICAL NUTRITION ADULT RISK ASSESSMENT [address] [address] Name: Aleida Sierra [place] [facility] [place] [facility] Date: 01/27/2024 Time: 3:28 PM How patient was identified (select 2): date and Name Aleida Sierra is a 78 year old female being assessed for clinical nutrition risk related to follow-up Primary diagnosis: Admitted after fall with right pubic rami fractures, right sacral ala fractures - hx of COPD, HTN, CKD Other pertinent information: Pt reports not having a good appetite. Intake has ranged from 0-60%. Has been refusing the liquacel and not drinking the milkshakes. Is open to supplement adjustment. Obtained food preferences. No reports of N/V. Does report constipation - last bowel movement per EHR noted on 01/17. No c/o chewing or swallowing difficulties. Ordered new weight to monitor trends duringadmission. Anthropometrics Measurements Admission weight (for dietitians): 49 kg Height: 157.5 cm (5' 2") (01/19/24138) Weight: 49 kg (108 lb) (01/19/24138) BMI: 19.75 (01/19/24138) Usual Body Weight or EDW for Dialysis Patients: 46-51 kg per EHR Diet: Regular Previously followed diet: Regular Food Allergies/Intolerances: No known Oral Nutrition Supplement (ONS): Liquacel (1 oz, 100 calories, 16 grams protein, 20 mg phosphorus, 10 mg potassium) BID Milkshake, Chocolate (270 mL provides 331 calories, 7 grams protein, 41 grams carbohydrate) daily Pertinent medications/vitamins/minerals/supplements: colace, miralax, senokot RISK FACTORS: Adult Energy Intake: Less than 75% of estimated energy requirement for greater than 7 days (moderate, acute illness). Interpretation of Weight Change: No recent/significant weight change Skin: Compromise without nutrition-related implications Skin tear - right elbow NUTRITION RISK CATEGORY: Nutrition Risk Category: Low/Moderate (0-1 factors) Clinical Nutrition Recommendations: Diet: Continue current nutrition plan Discontinuing liquacel as pt has been refusing NUTRITION INTERVENTION/PLAN: Orders: Oral nutrition supplement adjusted Discontinued: Liquacel (1 oz, 100 calories, 16 grams protein, 20 mg phosphorus, 10 mg potassium) BID Discontinued: Milkshake, Chocolate (270 mL provides 331 calories, 7 grams protein, 41 grams carbohydrate) Added: Super Oatmeal (1/2 cup provides 201 calories, 10 grams protein, 29 grams carbohydrate) daily Added: Super Pudding Chocolate (188 kcals, 13g protein, 25.6 grams carbohydrate per 5.3oz) or SuperPudding Vanilla (188 kcals, 12g protein, 27.8 grams carbohydrate per 5.3oz) BID Weight Will follow and adjust nutritional plan as medical condition requires. Please contact for change(s)in patient condition requiring earlier intervention. Negrita Luna RDN, LDN Clinical Dietitian Extension: [phone] [employer] * Ancillary Progress Note - Yolanda Barrera COTA - 01/27/2024 2:47 PM EST PROGRESS NOTE - Occupational Therapy [facility] [place] [address] Name: Aleida Sierra [place] [facility] [place] [facility] Date: 01/27/2024 Time: 2:47 PM Aleida Sierra is a 78 year old female. Patient Status: Inpatient Insurance: Payor: MEDICARE Plan: MEDICARE A AND B Product Type: *No Product type* Payor: AARP Plan: AARP Product Type: *No Product type* Patient Seen: at bedside, nursing cleared patient for therapy Patient Identified By: Name, ID Band and Date Diagnosis: Right pubic rami and right sacral fractures s/p Fall (01/27/241134) Status of treatment: Treatment completed (01/27/24 113) Orders: OT evaluation and treatment (01/27/24 113) Weight Bearing Status: Weight bearing as tolerated (01/27/24 113) Precautions: Alarms;Falls;Safety (Left knee immobilizer) (01/27/24 1135) Total Treatment Time: 23 (01/27/241134) Pain: Patient has complaints of pain. Pain located Left knee. Current Functional Status: Activities of Daily Living: Self Care Grooming: Supervision (Please comment) (01/27/241134) Dressing Upper Body: Supervision (Please comment) (01/27/241134) Lower Body: Dependent (01/27/241134) Functional Ambulation Assistive Device: Rolling walker (01/27/241134) Level of Assistance: Minimal Assistance (of 1 to Moderate Assistance of 1) (01/27/241134) Bed Mobility Supine-Sit: Maximal Assistance (01/27/241134) OT Transfers Sit-Stand: Minimal Assistance (of 2) (01/27/241134) Stand-Sit: Moderate Assistance (of 1) (01/27/241134) Bed-Chair: Moderate Assistance (of 1) (01/27/241134) Balance Sit (Static): Fair (01/27/241134) Sit (Dynamic): Fair (01/27/241134) Stand (Static): (Poor+) (01/27/241134) Stand (Dynamic): Poor (01/27/241134) Alarm Status Patient positioned in: Chair (01/27/241134) With: Pressure pad alarm intact and functioning and call serna in reach (01/27/241134) Following session patient seated OOB in chair with chair alarm activated and cord plugged into callbell system. Treatment Provided: Self Nursing Home Management Trainin minutes Therapeutic Activity: 10 minutes Assessment: Supine in bed upon entering room. Patient demonstrates supine to sit edge of bed with assistance of 1. Patient demonstrates grooming and upper body dressing supervision level set up. Patient requires assistance with lower body dressing seated edge of bed. Patient demonstrates functionaltransfer from edge of bed with minimal assistance of 2. Patient performed remaining functional transfers and ambulation with assistance of 1 using rolling walker. Patient would benefit from continuedOT ser Plan: Will continue to follow as per plan. Anticipated Frequency (on eval): 3 to 5 times per week (01/27/241134) AM-PAC Help From Another Person Eating Meals: A little (01/27/241134) Help From Another Person Taking Care of Personal Grooming: A little (01/27/241134) Help From Another Person To Put On/Take Off Upper Body Clothing: A little (01/27/24 113) Help From Another Person To Put On/Take Off Lower Body Clothing: Total (01/27/24 113) Help From Another Person Toileting: Total (01/27/24 113) Help From Another Person Bathing: A lot (01/27/24 113) OT AM-PAC Score: 13 (01/27/24 113) OT AM-PAC t-Scale Score: 32.03 (01/27/24 113) A portion of this AM-PAC assessment not scored based on functional assessment; rather clinical decision making utilized based on current findings and/or prior level of function. Please refer to future AM-PAC calculations of functional ability as they become available. * Ancillary Progress Note - Keke Haque, MSN - 01/27/2024 1:12 PM EST CARE MANAGEMENT - [place]ANS[place] [facility] [place] [address] Name: Aleida Sierra [place] [facility] [place] Date: 01/27/2024 Time: 1:13 PM Risk Stratification Risk Stratification Psycho Social / Medical Concerns Identified: Adjustment to illness/injury (01/19/24 1046) Readmission Risk Score: 12.01 (01/27/24 1200) AM-PAC Score With Stairs : 10 (01/22/24 1354) Caregiver Information Emergency Contacts None on File Other Contacts Name Relation Home Work Mobile Abby Barnett Adult Grandchild [phone] Sylvia Amador Sibling [phone] Transition of Care Checklist Narrative: CM has been following Aleida's hospital course. Patient discussed in IDT rounds. Dischargeplan evolving - CM will continue to follow for discharge needs. GPS TT to be made aware patient is awaiting ride to [facility] . Spoke with Jamie at [facility] who is aware we are waiting on a ride. Anticipated Transportation at Discharge: BLS Patient/Family Expectations: [facility] Transition Planning Additional Considerations: n/a Care Management will continue to monitor and assist with discharge planning needs * Ancillary Progress Note - Carlos Vines, MITER CUTTER - 01/27/2024 11:43 AM EST PROGRESS NOTE - Physical Therapy [facility] [place] [address] Name: Aleida Sierra [place] [facility] [place] Date: 01/27/2024 Time: 11:43 AM Aleida Sierra is a/an 78 year old female. Patient Status: Inpatient Insurance: Payor: MEDICARE Plan: MEDICARE A AND B Product Type: *No Product type* Payor: AARP Plan: AARP Product Type: *No Product type* Patient Seen: at bedside, nursing cleared patient for therapy Patient Identified By: Name, ID Band and Date Diagnosis: s/p fall, pelvic fx (01/27/241142) Status of treatment: Treatment completed (01/27/241142) Orders: PT evaluation and treatment;OOB (01/27/241142) Weight Bearing Status: Weight bearing as tolerated (01/27/241142) Precautions: Alarms;Falls;Safety;Oxygen (01/27/241142) Total Treatment Time--free text: 23 (01/27/241142) Subjective: Patient agreeable to mobilize with therapy Pain: Patient has complaints of pain. Pain located right hip with ambulation, none at rest. / Staff Notified P.T. Bed Mobility Supine-Sit: Maximal Assistance (01/27/241142) Transfers Sit-Stand: Minimal Assistance (x2) (01/27/241142) Stand-Sit: Minimal Assistance (01/27/241142) Ambulation: Distance ambulated (feet): 8 Assistive Device: Rolling walker Assist: Moderate Assistance x1 and Minimal Assistance x1 Balance Sit (Static): Fair (01/27/241142) Sit (Dynamic): Fair (01/27/241142) Stand (Static): (Poor+) (01/27/241142) Stand (Dynamic): Poor (01/27/241142) Patient and or Family Goal(s): to get well Topic of Education: Safety with mobility, Use of assistive device, and Fall prevention Extremity Exercise Supine: Hip;Knee;Ankle (01/27/241142) Hip : Bilateral LE;Adduction;Abduction;1 set of 10 (01/27/241142) Knee : Bilateral LE;Heel slide;SAQ;1 set of 10 (01/27/241142) Ankle: Bilateral LE;Plantar flexion;Dorsiflexion;1 set of 10 (01/27/241142) Method of Education: Verbal discussion and explanation provided to patient: verbalized understanding and or agreement of this information Treatment Provided: Therapeutic Activities 5 minutes: bed mobility training transfer training Gait Training 9 minutes: gait training with rolling walker Therapeutic Exercises: 9 minutes Alarm Status Patient positioned in: Chair (01/27/241142) With: Pressure pad alarm intact and functioning and call serna in reach (01/27/241142) Patient Education Review of Precautions: Safety;Fall (01/27/241142) Safety Awareness: Patient verbalizes insight of current deficits;Patient can communicate basic needs;Needs cueing supervision (01/27/241142) Preferred learning method: Combination (01/27/241142) Barriers to learning: None (01/27/241142) Method of Education: Verbalized to patient (01/27/241142) Assessment: Patient found supine in bed, awake and alert on arrival. Patient completed bilateral LEtherapeutic exercises for strengthening/ROM with assistance as needed (left knee brace limiting flexion to 45 degrees). Patient transitioned from supine to sit with Maximal Assistance, but she was able to sit unsupported. Patient stood with Minimal Assistance x2 before ambulating 8' using a RollingWalker with Moderate Assistance x1 to Minimal Assistance x1 (assistance for balance, weight shifting right, and for Rolling Walker control). Patient had some difficulty advancing her LLE without assisted weight shifting. Patient was positioned for co,fort in bedside chair, alarm activated and call b ell within reach. Please consider post-acute care services which may include home health, shelter, outpatient therapy or inpatient rehabilitation. The level of care will be determined in collaboration with patient, family/caregiver and care team members. Deficits requiring P.T. treatment needs: Safety;Mobility;Balance;Weakness;Endurance;Lower extremitystrength (01/27/24 1143) Equipment needs: No device (01/20/24 1237) Plan: Continue with current treatment plan established on evaluation. AM PAC Score with Stairs: 11. A portion of this AM-PAC assessment not scored based on functional assessment; rather clinical decision making utilized based on current findings and/or prior level of function. Please refer to future AM- PAC calculations of functional ability as they become available. * Care Plan - Dayana Prince RN - 01/27/2024 8:15 AM EST Clinical Goal(s): Pt will remain free from falls (01/27/24 0810) Possible barriers to meeting goal(s)/advancing plan of care: falls, weakness Stability of the patient: Moderately stable - low risk of patient condition declining or worsening Summary regarding today's goal(s): Met: No falls this shift. Recommendations: Continue current plan of care. * Care Plan - Saumya Gandhi RN - 01/26/2024 4:45 PM EST Clinical Goal(s): pt will be free of falls on my shift (01/26/24 0800) Possible barriers to meeting goal(s)/advancing plan of care: pt condition Stability of the patient: Moderately stable - low risk of patient condition declining or worsening Summary regarding today's goal(s): Met: goal met- pt was free of falls on my shift Recommendations: continue fall precautions * Ancillary Progress Note - Mally Ramírez MSW - 01/26/2024 10:41 AM EST CARE MANAGEMENT - TRAUMA TRANSITION [place] [facility] [place] [address] Name: Aleida Sierra [place] [facility] [place] Date: 01/26/2024 Time: 10:41 AM Risk Stratification Risk Stratification Psycho Social / Medical Concerns Identified: Adjustment to illness/injury (01/19/24 1046) Readmission Risk Score: 11.67 (01/26/24 0800) AM-PAC Score With Stairs : 10 (01/22/24 1354) Caregiver Information Emergency Contacts None on File Other Contacts Name Relation Home Work Mobile Abby Barnett Adult Grandchild [phone] Sylvia Amador [phone] Transition of Care Checklist Narrative: GPS clarita reached out to and reported [facility] has no availability today. She also reported she called 14 other transport companies and they also have no availability. Ride will be moved to Saturday for better chances of it being claimed. SNF was updated. Anticipated Transportation at Discharge: bls Comments: -- Patient/Family Expectations: snf Transition Planning Additional Considerations: -- Care Management will continue to monitor and assist with discharge planning needs * Care Plan - Dayana Prince RN - 01/26/2024 5:01 AM EST Clinical Goal(s): Pt will have tolerable pain control this shift. (01/26/24 0444) Possible barriers to meeting goal(s)/advancing plan of care: current health situation Stability of the patient: Moderately stable - low risk of patient condition declining or worsening Summary regarding today's goal(s): Met: Pain meds effective this shift. Recommendations: Continue current plan of care. * Care Plan - Saumya Gandhi RN - 01/25/2024 4:45 PM EST Clinical Goal(s): pt alfredo be free of falls on my shift (01/25/24 0800) Possible barriers to meeting goal(s)/advancing plan of care: pt condition Stability of the patient: Moderately stable - low risk of patient condition declining or worsening Summary regarding today's goal(s): Met: goal met- pt was free of falls on my shift Recommendations: continue fall precautions * Ancillary Progress Note - Aleida Waldrop BSW - 01/25/2024 11:09 AM EST Images from the original note were not included. CARE MANAGEMENT - TRAUMA TRANSITION NOTE [address] [address] Name: Aleida Sierra [place] [facility] [place] Date: 01/25/2024 Time: 11:09 AM Risk Stratification Risk Stratification Psycho Social / Medical Concerns Identified: Adjustment to illness/injury (01/19/24 1046) Readmission Risk Score: 12.89 (01/25/24 0800) AM-PAC Score With Stairs : 10 (01/22/24 1354) Caregiver Information Emergency Contacts None on File Other Contacts Name Relation Home Work Mobile Abby Barnett Adult Grandchild [phone] Sylvia Amador Sibling [phone] Transition of Care Checklist Narrative: Pt requested that her nurse give SW a number for an ambulance company, [employer] [phone], to help with arranging transportation. SW called and got a generic voicemail that listed offthe phone number but did not specify who the voicemail was for. SW looked the company up online to see if the number may be different, this is what came up: SW has escalated this ride to CM management. SW will continue to follow, address pt's evolving needs, and provide psychosocial support. Anticipated Transportation at Discharge: BLS Comments: Patient/Family Expectations: [facility] Transition Planning Additional Considerations: -- Care Management will continue to monitor and assist with discharge planning needs * Care Plan - Avery Castellanos RN - 01/25/2024 4:50 AM EST Clinical Goal(s): Patient will remain free from fall/injury this shift. (01/24/241999) Possible barriers to meeting goal(s)/advancing plan of care: Patient condition. Stability of the patient: Moderately stable - low risk of patient condition declining or worsening Summary regarding today's goal(s): Met: Patient remained free from fall/injury. Recommendations: Continue with hourly rounding and keep call serna within reach. * Care Plan - Le Echeverria RN - 01/24/2024 6:30 PM EST Clinical Goal(s): Pt will remain free from falls (01/24/24 0800) Possible barriers to meeting goal(s)/advancing plan of care: Pt's condition Stability of the patient: Moderately stable - low risk of patient condition declining or worsening Summary regarding today's goal(s): Met: Pt did not fall Recommendations: continue fall precautions * Ancillary Progress Note - Keke Haque MSN - 01/24/2024 2:17 PM EST CARE MANAGEMENT - ADULT TRANSITION NOTE [facility] [place] [address] Name: Aleida Sierra [place] [facility] [place] [facility] Date: 01/24/2024 Time: 2:17 PM Risk Stratification Risk Stratification Psycho Social / Medical Concerns Identified: Adjustment to illness/injury (01/19/24 1046) Readmission Risk Score: 13.77 (01/24/24 1200) AM-PAC Score With Stairs : 10 (01/22/24 1354) Caregiver Information Emergency Contacts None on File Other Contacts Name Relation Home Work Mobile Abby Barnett Adult Grandchild [phone] Sylvia Amador Sibling [phone] Transition of Care Checklist Narrative: CM has been following Aleida's hospital course. Patient discussed in IDT rounds. Dischargeplan evolving - CM will continue to follow for discharge needs. Ride not claimed today, moved to tomorrow. Requested for 0900. GPS specialist, service, and [facility] aware. Anticipated Transportation at Discharge: BLS Patient/Family Expectations: [facility] Transition Planning Additional Considerations: n/a Care Management will continue to monitor and assist with discharge planning needs * Diagnostic Clarification - Andrew Cazares MD - 01/24/2024 1:20 PM EST The diagnosis was present on admission and is now resolved. * Care Plan - Doe Pool RN - 01/24/2024 4:20 AM EST Clinical Goal(s): Patient will remain free from falls (01/23/24 2300) Possible barriers to meeting goal(s)/advancing plan of care: Patient condition Stability of the patient: Moderately stable - low risk of patient condition declining or worsening Summary regarding today's goal(s): Met: no falls Recommendations: Continue fall precautions * Care Plan - Le Echeverria RN - 01/23/2024 5:33 PM EST Clinical Goal(s): Pt will remain free from falls (01/23/24 0740) Possible barriers to meeting goal(s)/advancing plan of care: Pt's condition Stability of the patient: Moderately stable - low risk of patient condition declining or worsening Summary regarding today's goal(s): Met: pt did not fall Recommendations: continue fall precautions * Ancillary Progress Note - Keke Haque, MSN - 01/23/2024 1:26 PM EST CARE MANAGEMENT - ADULT TRANSITION NOTE [facility] [place] [address] Name: Aleida Sierra [place] [facility] [place] [facility] Date: 01/23/2024 Time: 1:26 PM Risk Stratification Risk Stratification Psycho Social / Medical Concerns Identified: Adjustment to illness/injury (01/19/24 1046) Readmission Risk Score: 13.86 (01/23/24 1200) AM-PAC Score With Stairs : 10 (01/22/24 1354) Caregiver Information Emergency Contacts None on File Other Contacts Name Relation Home Work Mobile Abby Barnett Adult Grandchild [phone] Sylvia Amador Sibling [phone] Transition of Care Checklist Narrative: CM has been following [facility] course. Patient discussed in IDT rounds. Dischargeplan evolving - will continue to follow for discharge needs. Ride not claimed today, moved to tomorrow. Requested for 1000, GPS specialist aware as well. Left message for [facility]. Abby, granddaughter, aware we are changing ride to tomorrow. Anticipated Transportation at Discharge: [facility] Patient/Family Expectations: [facility] Transition Planning Additional Considerations: n/a Care Management will continue to monitor and assist with discharge planning needs * Care Plan - Mariangel Infante LPN - 01/23/2024 6:54 AM EST Clinical Goal(s): Patient will remain free from falls and injuries this shift. (01/22/241899) Possible barriers to meeting goal(s)/advancing plan of care: Patient condition. Stability of the patient: Moderately stable - low risk of patient condition declining or worsening Summary regarding today's goal(s): Met: Patient remained free from falls and injuries this shift. Recommendations: Continue safety precautions. * Care Plan - Mariangel Infante LPN - 01/23/2024 6:46 AM EST Clinical Goal(s): Patient will remain free from falls and injuries this shift. (01/22/241899) Possible barriers to meeting goal(s)/advancing plan of care: Patient condition. Stability of the patient: Moderately stable - low risk of patient condition declining or worsening Summary regarding today's goal(s): Met: Patient remained free from falls and injuries this shift. Recommendations: Continue safety precautions. * Care Plan - Le Echeverria RN - 01/22/2024 4:04 PM EST Clinical Goal(s): Pt will remain free from falls (01/22/24 0750) Possible barriers to meeting goal(s)/advancing plan of care: Pt's condition Stability of the patient: Moderately stable - low risk of patient condition declining or worsening Summary regarding today's goal(s): Met: pt did not fall Recommendations: continue fall precautions * Ancillary Progress Note - Yolanda Barrera COTA - 01/22/2024 2:53 PM EST PROGRESS NOTE - Occupational Therapy [facility] [place] [address] Name: Aleida Sierra [place] [facility] [place] [facility] Date: 01/22/2024 Time: 2:53 PM Aleida Sierra is a 78 year old female. Patient Status: Inpatient Insurance: Payor: MEDICARE Plan: MEDICARE A AND B Product Type: *No Product type* Payor: AARP Plan: AARP Product Type: *No Product type* Patient Seen: at bedside, nursing cleared patient for therapy Patient Identified By: Name, ID Band and Date Diagnosis: Right pubic rami and right sacral fractures s/p Fall (01/22/24 110) Status of treatment: Treatment completed (01/22/24 110) Orders: OT evaluation and treatment (01/22/24 110) Weight Bearing Status: Weight bearing as tolerated (01/22/24 110) Precautions: Alarms;Falls;Safety (Left knee immobilizer) (01/22/24 110) Total Treatment Time: 31 (01/22/241101) Pain: Patient has complaints of pain. Pain located Right hip. Current Functional Status: Activities of Daily Living: Self Care Grooming: Supervision (Please comment) (01/22/241101) Dressing Upper Body: Supervision (Please comment) (01/22/241101) Lower Body: Dependent (01/22/241101) Bed Mobility Supine-Sit: Maximal Assistance (of 2) (01/22/241101) OT Transfers Sit-Stand: Minimal Assistance (of 2) (01/22/241101) Stand-Sit: Minimal Assistance (of 2) (01/22/241101) Bed-Chair: Minimal Assistance (of 2) (01/22/241101) Balance Sit (Static): (Fair-) (01/22/241101) Sit (Dynamic): (Poor+) (01/22/241101) Stand (Static): (Poor+) (01/22/241101) Stand (Dynamic): Poor (01/22/241101) Alarm Status Patient positioned in: Chair (01/22/241101) With: Pressure pad alarm intact and functioning and call serna in reach (01/22/241101) Following session patient seated OOB in chair with chair alarm activated and cord plugged into callbell system. Treatment Provided: Self Nursing Home Management Trainin minutes Therapeutic Activity: 10 minutes Deficits requiring O.T. treatment needs: ADL/self- care;Balance;Endurance;Functional mobility;Safety;Upper extremity strength;Weakness (01/20/24 1255) Assessment: Supine in bed upon entering room. Patient demonstrates grooming and upper body dressingsupervision level set up. Patient required assistance with lower body dressing seated. Patient demonstrates supine to sit edge of bed with assistance of 2. Patient performed functional transfers withassistance of 2 using rolling walker. Patient would benefit from continued OT services to maximize functional independence. Please consider post-acute care services which may include home health, shelter, outpatient therapy or inpatient rehabilitation. The level of care will be determined in collaboration with patient, family/caregiver and care team members. Plan: Will continue to follow as per plan. Anticipated Frequency (on eval): 3 to 5 times per week (01/22/24 110) AM-PAC Help From Another Person Eating Meals: A little (01/22/241101) Help From Another Person Taking Care of Personal Grooming: A little (01/22/241101) Help From Another Person To Put On/Take Off Upper Body Clothing: A little (01/22/241101) Help From Another Person To Put On/Take Off Lower Body Clothing: Total (01/22/241101) Help From Another Person Toileting: Total (01/22/241101) Help From Another Person Bathing: A lot (01/22/241101) OT AM-PAC Score: 13 (01/22/241101) OT AM-PAC t-Scale Score: 32.03 (01/22/241101) A portion of this AM-PAC assessment not scored based on functional assessment; rather clinical decision making utilized based on current findings and/or prior level of function. Please refer to future AM-PAC calculations of functional ability as they become available. * Ancillary Progress Note - Rafael Jack PTA - 01/22/2024 11:00 AM EST PROGRESS NOTE - Physical Therapy [facility] [place] [address] Name: Aleida Sierra [place] [facility] [place] [facility] Date: 01/22/2024 Time: 11:00 AM Aleida Sierra is a/an 78 year old female. Patient Status: Inpatient Insurance: Payor: MEDICARE Plan: MEDICARE A AND B Product Type: *No Product type* Payor: AARP Plan: AARP Product Type: *No Product type* Patient Seen: at bedside, nursing cleared patient for therapy Patient Identified By: Name, ID Band and Date Diagnosis: s/p fall, pelvic fracture (01/22/241099) Status of treatment: Treatment completed (01/22/241099) Orders: PT evaluation and treatment;OOB (01/22/241099) Weight Bearing Status: Weight bearing as tolerated (01/22/241099) Precautions: Alarms;Falls;Safety;Oxygen;Stark (L hinged knee brace locked in extension from prior injury) (01/22/241099) Total Treatment Time--free text: 31 (01/22/241099) Subjective: Patient agreeable to therapy Pain: No complaints of pain P.T. Bed Mobility Supine-Sit: Maximal Assistance (x2) (01/22/241099) Transfers Sit-Stand: Minimal Assistance (x2) (01/22/241099) Stand-Sit: Minimal Assistance (x2) (01/22/241099) W/C-Bed/Mat: Minimal Assistance (x2) (01/22/241099) Ambulation: N/A Balance Sit (Static): Fair (01/22/241099) Sit (Dynamic): (Fair-) (01/22/241099) Stand (Static): (Poor+) (01/22/241099) Stand (Dynamic): Poor (01/22/241099) Patient and or Family Goal(s): to get well Topic of Education: Safety with mobility, Goals/plan of care, Use of assistive device, and Fall prevention Method of Education: Verbal discussion and explanation provided to patient: demonstrated the exercise and or task Treatment Provided: Therapeutic Activities 31 minutes: bed mobility training transfer training Alarm Status Patient positioned in: Chair (01/22/241099) With: Pressure pad alarm intact and functioning and call serna in reach (01/22/241099) Following session patient seated OOB in chair with chair alarm activated and cord plugged into callbell system. Patient Education Review of Precautions: Safety;Fall (01/22/241099) Safety Awareness: Patient verbalizes insight of current deficits;Patient demonstrates carryover of insight during functional tasks;Patient can communicate basic needs (01/22/241099) Preferred learning method: Combination (01/22/241099) Barriers to learning: None (01/22/241099) Method of Education: Verbalized to patient (01/22/241099) Assessment: Patient found supine in bed awake and alert, on 1 liter of oxygen via nasal cannula. Patient transitioned from supine to sitting with maximal assistance x2 due to weakness. Patient able to stand, pivot, and sit in bedside chair with minimal assistance x2 using a rolling walker due to weakness.Patient required verbal cues for hand placement during transfers. Patient required occasionalmanual advancement of B/L LE to stand pivot. Patient required longer time to complete stand pivot transfer due to difficulty advancing B/L LE. Patient reported feeling fatigued after stand pivot transfer. Patient given ice pack for right hip after mobility. Patient left seated in bedside chair with alarm activated and call serna within reach. Please consider post-acute care services which may include home health, shelter, outpatient therapy or inpatient rehabilitation. The level of care will be determined in collaboration with patient, family/caregiver and care team members. Deficits requiring P.T. treatment needs: Safety;Balance;Mobility;Weakness;Endurance;Lower extremitystrength (01/22/24 1100) Plan: Continue with current treatment plan established on evaluation. AM PAC Score with Stairs: 11. A portion of this AM-PAC assessment not scored based on functional assessment; rather clinical decision making utilized based on current findings and/or prior level of function. Please refer to future AM- PAC calculations of functional ability as they become available. * Ancillary Progress Note - Keke Haque, MSN - 01/22/2024 8:19 AM EST CARE MANAGEMENT - ADULT TRANSITION NOTE [facility] [place] [address] Name: Aleida Sierra [place] [facility] [place] [facility] Date: 01/22/2024 Time: 8:33 AM Risk Stratification Risk Stratification Psycho Social / Medical Concerns Identified: Adjustment to illness/injury (01/19/24 1046) Readmission Risk Score: 12.07 (01/22/24 0800) AM-PAC Score With Stairs : 8 (01/20/24 1237) Caregiver Information Emergency Contacts None on File Other Contacts Name Relation Home Work Mobile Abby Barnett Adult Grandchild [phone] Sylvia Amador Sibling [phone] Transition of Care Checklist Narrative: has been following Aleida's hospital course. Patient discussed in IDT rounds. They are not medically stable for discharge at this time. Monitor urine output, monitor creatinine. [facility] - will continue to follow for discharge needs. [facility] ride cancelled in [facility]rip, [facility] called to be made aware. Called Robin Portillo at [facility] ([phone]) to made made aware of cancelled discharge. State okay for patient to come tomorrow. Left message for [place], granddaughter, we are changing discharge to tomorrow. Ride requested for 1000 tomorrow in Roundtrip. Anticipated Transportation at Discharge: S Patient/Family Expectations: Robin Portillo at [facility] ([phone]) Transition Planning Additional Considerations: n/a Care Management will continue to monitor and assist with discharge planning needs * Care Plan - Mariangel Infante LPN - 01/22/2024 6:26 AM EST Clinical Goal(s): Patient will remain free from falls and injuries this shift. (01/21/24 1900) Possible barriers to meeting goal(s)/advancing plan of care: Patient condition. Stability of the patient: Moderately stable - low risk of patient condition declining or worsening Summary regarding today's goal(s): Met: Patient remained free from falls and injuries this shift. Recommendations: Continue safety precautions. * Care Plan - Janis Eid RN - 01/21/2024 4:37 PM EST Clinical Goal(s): pt will remain free from falls this shift (01/21/24 0700) Possible barriers to meeting goal(s)/advancing plan of care: pt condition Stability of the patient: Moderately stable - low risk of patient condition declining or worsening Summary regarding today's goal(s): Met: pt remained free from falls this shift Recommendations: continue w/ safety interventions and hourly rounds * Ancillary Progress Note - Keke Haque MSN - 01/21/2024 9:33 AM EST CARE MANAGEMENT - ADULT TRANSITION NOTE [facility] [address] Name: Aleida Sierra [place] [facility] B535/A Date: 01/21/2024 Time: 2:36 PM Risk Stratification Risk Stratification Psycho Social / Medical Concerns Identified: Adjustment to illness/injury (01/19/24 1046) Readmission Risk Score: 12.05 (01/21/24 1200) AM-PAC Score With Stairs : 8 (01/20/24 1237) Caregiver Information Emergency Contacts None on File Other Contacts Name Relation Home Work Mobile Abby Barnett Adult Grandchild [phone] Sylvia Amador Sibling [phone] Transition of Care Checklist Narrative: CM has been following Aleida's hospital course. Patient discussed in IDT rounds. They are not medically stable for discharge at this time. Oxygen, pain control, placement. Discharge plan evolving - CM will continue to follow for discharge needs. [facility] (second choice) called and have accepted patient. If family accepts, to call Yessy in admissions back at [phone]. Left message with admissions at [facility] (first choice) to call back. Spoke with Maliha with admissions at [facility] ([phone]), they can offer patient a bed. Called granddaughter, Abby, who confirms placement. Requested ride in Roundtrip for 1000 for BLS. [facility] called made aware family accepted an alternate facility. Ride was picked up for 1000 [facility] . Let the service, facility, nurse and granddaughterknow of ride time. Anticipated Transportation at Discharge: BLS Patient/Family Expectations: [facility] Transition Planning Additional Considerations: n/a Care Management will continue to monitor and assist with discharge planning needs * Care Plan - Shirley Berumen RN - 01/21/2024 12:41 AM EST Clinical Goal(s): Patient will remain free from falls and injuries (01/20/24 2300) Possible barriers to meeting goal(s)/advancing plan of care: Patient condition Stability of the patient: Moderately stable - low risk of patient condition declining or worsening Summary regarding today's goal(s): Met: Recommendations: Continue implementing fall precautions * Ancillary Progress Note - Braeden Garcia, PhD - 01/20/2024 5:06 PM EST Injured Trauma Survivor Screen (ITSS) BEFORE THIS INJURY Have you ever taken medication for, or been given a mental health diagnosis? PTSD:N/A DEP: No- 0 Has there ever been a time in your life you have been bothered by feeling down or hopeless or lost all interest in the things you usually enjoyed for more than 2 weeks? PTSD: N/A DEP: No- 0 WHEN YOU WERE INJURED OR RIGHT AFTERWARD 3. Did you think you were going to ? PTSD: No- 0 DEP: No- 0 4. Do you think this was done to you intentionally? PTSD: No- 0, DEP: N/A SINCE YOUR INJURY 5. Have you felt emotionally detached from your loved ones? PTSD: N/A, DEP No- 0 6. Do you find yourself crying and unsure why? PTSD: N/A, DEP No- 0 7. Have you felt more restless, tense or jumpy than usual? PTSD: No- 0, DEP: N/A 8. Have you found yourself unable to stop worrying? PTSD: No- 0, DEP: N/A 9. Do you find yourself thinking that the world is unsafe and that people are not to be trusted? PTSD No- 0 DEP: N/A TOTAL SCORE: PTSD: 0, DEP 0 Score > or = 2 in PTSD category is positive for PTSD risk (place psychology consult for Dr Villanueva indicating + ITSS) Score > or = 2 in DEP category is positive for Depression Risk (check with Dr Villanueva to see if aconsult is needed) Braeden Garcia, PhD, treasury management sales consultant [employer]type [employer]isher [facility] 01/20/2024 5:07 PM * Ancillary Progress Note - Braeden Garcia, PhD - 01/20/2024 5:04 PM EST SBIRT NOTE Was screening able to be completed? Yes If unable to be completed, why? n/a S (screening) CAGE-[facility]ID Substance Abuse Screening Tool (Any "yes" answer indicates a positive screen) C Have you ever felt the need to Cut down on your drinking or drug use? No A Have people Annoyed you by criticizing your drinking or drug use? No G Have you ever felt Guilty about drinking or drug use? No E Have you ever felt you needed a drink or used drugs first thing in the morning to steady your nerves or to get rid of a hangover (Eye-Talent Sourcing Specialist)? No BI (brief intervention) to be done on all patients: I have reviewed both ETOH/ Urine Tox screen with patient and discussed the results as well. After reviewing the results patient admits they they do or do not feel their drinking &/or druguse interferes with their life/goals for the future. Do Not Patient does or does not want to be referred to treatment at this time. Does not RT (referral for treatment) to be done if BI and/or screening +, or any concerns/issues arose whilespeaking with patient (pamphlet for area services given to all pts no matter what): Not referred (reason why no concerns identified during brief intervention- pt denies use of drugs and/or alcohol. Urine tox positive for fentanyl and morphine- fentanyl was administered prior to urine being sent for tox. Unclear if patient received morphine at OSH prior to arrival at [facility]. ETOH negative.) Braeden Garcia, PhD, treasury management sales consultant [employer] [facility] 01/20/2024 5:06 PM * Ancillary Progress Note - Braeden Garcia, PhD - 01/20/2024 5:01 PM EST NURSING PROGRESS NOTE - Rehabilitation Review - Trauma Surgery [address] [address] Name: Aleida Sierra Location: [address] Date: 01/20/2024 Time: 5:01 PM ADULT REHABILITATION REVIEW Chart reviewed according to [place] [employer] guidelines. Case discussed in trauma rounds. Mechanism of Injury: Fall from standing at home. Transfer from [facility]. Injuries consistant with mechanism. PT/OT, Anti- coagulation, Ortho consulted. Occupation: Retired. Injury prevention: Fall risks. Rehabilitation needs assessed. Rehabilitation Medicine: N/A Trauma Psychology: N/A Alcohol/Chemical Dependency: N/A Social Work: yes -- Mary Haque RNreturn agent airport following. Physical Therapy: yes -- following, see PT notes for details. Speech Pathology: N/A Occupational Therapy: yes -- following, see OT notes for details. Product Technician Services: yes -- following, as needed. Plan: Home vs rehab when medically stable. Pt reports she lives alone in a 1 story home with a rampto enter and has a RW, cane, wheelchair, bedside commode and a handicapped bathroom. Pt's granddaughter, Abby, at bedside during trauma rounds and updated by trauma team. Will continue to follow. Braeden Garcia, PhD, treasury management sales consultant [employer] [facility] 01/20/2024 5:04 PM * Ancillary Progress Note - Keke Haque MSN - 01/20/2024 2:02 PM EST CARE MANAGEMENT - ADULT TRANSITION NOTE [address] [address] Name: Aleida Sierra [address] Date: 01/20/2024 Time: 2:02 PM Risk Stratification Risk Stratification Psycho Social / Medical Concerns Identified: Adjustment to illness/injury (01/19/24 1046) Readmission Risk Score: 11.61 (01/20/24 1201) AM-PAC Score With Stairs : 12 (01/20/24 1237) Caregiver Information Emergency Contacts None on File Other Contacts Name Relation Home Work Mobile Abby Barnett Adult Grandchild [phone] Sylvia Amador Sibling [phone] Transition of Care Checklist Narrative: CM has been following [facility] course. Patient discussed in IDT rounds. They are not medically stable for discharge at this time. Trend labs, oxygen requirement. Discharge plan evolving - CM will continue to follow for discharge needs. Spoke with granddaughter, Abby, at bedside. Repisodic list printed for SNF. "Managing my health" packet given to Abby for patient. Choices for SNF are (1) [facility] (2) [facility] (3) [facility]. [facility] opened for each. Left message for admissions at [facility] and [facility] to bemade aware [facility] is opened. Spoke with Gianna at [facility] to be made aware [facility] is opened. [facility] called back, they do not have [facility]. TT TRUCK DESPATCHER to fax referral to [phone]. Anticipated Transportation at Discharge: tbd Patient/Family Expectations: SNF Transition Planning Additional Considerations: n/a Care Management will continue to monitor and assist with discharge planning needs * Ancillary Progress Note - Marga Smith RDN - 01/20/2024 10:27 AM EST CLINICAL NUTRITION ADULT RISK ASSESSMENT [address] [address] Name: Aleida Sierra [place] [facility] B535/A Date: 01/20/2024 Time: 10:27 AM How patient was identified (select 2): date and Name Aleida Sierra is a 78 year old female being assessed for clinical nutrition risk related to trauma and reduced dietary intake Primary diagnosis: Principal Problem: Fall (POA: Yes) Active Problems: Closed fracture of multiple pubic rami, right, initial encounter (HCC) (POA: Yes) Overview: Superior and inferior Sacral fracture (HCC) (POA: Yes) Overview: Right sacral ala fracture Hematoma of right thigh (POA: Yes) Overview: Intramuscular, medial right thigh POA = Present On Admission Other pertinent information: This documentation was completed by talking to the patient and/or their family on the phone. The patient was not visually or physically seen. Patient reports decreased appetite but then reported eating normal amount at home prior to admission, with decreased intakes during hospitalization here. Weight stable per EHR. Anthropometrics Measurements Admission weight (for dietitians): 49kg Height: 157.5 cm (5' 2") (01/19/24138) Weight: 49 kg (108 lb) (01/19/24138) BMI: 19.75 (01/19/24138) Usual Body Weight or EDW for Dialysis Patients: 109-112# per EHR Diet: Regular Previously followed diet: regular Food Allergies/Intolerances: None reported Oral Nutrition Supplement (ONS): Liquacel (1 oz, 100 calories, 16 grams protein, 20 mg phosphorus, 10 mg potassium) daily Pertinent medications/vitamins/minerals/supplements: colace, miralax, senna RISK FACTORS: Adult Energy Intake: No significant decrease Interpretation of Weight Change: No recent/significant weight change Skin: Compromise without nutrition-related implications - skin tear right elbow NUTRITION RISK CATEGORY: Nutrition Risk Category: Low/Moderate (0-1 factors) Clinical Nutrition Recommendations: Diet: Continue current nutrition plan NUTRITION INTERVENTION/PLAN: Orders: Oral nutrition supplement added Milkshake, Chocolate (270 mL provides 331 calories, 7 gramsprotein, 41 grams carbohydrate) daily Risk/Re-risk Assessment completed. Will follow and adjust nutritional plan as medical condition requires. Please contact for change(s)in patient condition requiring earlier intervention. Janice Smith RD, LDN Clinical Dietitian II [facility] Available via Skim[employer] * Care Plan - Peyton Diaz RN - 01/20/2024 8:57 AM EST Clinical Goal(s): patient will have pain controlled this shift (01/20/24 0800) Possible barriers to meeting goal(s)/advancing plan of care: pelvic pain Stability of the patient: Moderately stable - low risk of patient condition declining or worsening Summary regarding today's goal(s): Met: patient had pain controlled this shift Recommendations: continue pain relief measures * Care Plan - Shirley Berumen RN - 01/20/2024 2:02 AM EST Clinical Goal(s): Patient will remain free from falls and injuries (01/19/24 2300) Possible barriers to meeting goal(s)/advancing plan of care: Patient condition Stability of the patient: Moderately stable - low risk of patient condition declining or worsening Summary regarding today's goal(s): Met: Recommendations: Continue implementing fall precautions * Ancillary Progress Note - Yakov Perez BSW - 01/19/2024 10:46 AM EST CARE MANAGEMENT - TRAUMA INITIAL SCREENING [address] [address] Name: Aleida Sierra [place] [facility] B[facility]/A Date: 01/19/2024 Time: 10:47 AM Discussed with Trauma and with the interdisciplinary care team. This Conservation Worker performed a chartreview to complete admission screen and assessed needs for transition planning. The career coordinator role and services were explained and emotional support was provided. Chief Complaint: transfer of records Prior Living Arrangements What was your living situation prior to admission/observation?: Alone (01/19/241045) Living Quarters: House (01/19/241045) Number of steps to enter living quarters:: Ramp (01/19/241045) How many stories is the dwelling?: One Story (01/19/241045) Prior Level of Functioning Describe the patient's ability prior to admission/observation to perform ADLs: Performs independently (01/19/241045) Describe the patient's mobility status prior to admission: Patient ambulates independently (01/19/241045) Patient uses assistive device: Yes (01/19/241045) If yes, choose:: Walker (01/19/241045) Caregiver Information Emergency Contacts None on File Other Contacts Name Relation Home Work Mobile Abby Barnett Adult Grandchild [phone] Sylvia Amador Sibling [phone] Risk Stratification Risk Stratification Psycho Social / Medical Concerns Identified: Adjustment to illness/injury (01/19/241045) Readmission Risk Score: 11.27 (01/19/24 08) AM-PAC Score With Stairs : 7 (01/19/24799) Prior to Admission Services Services Prior to Admission MITER CUTTER Services (Services received within the last 30 days with exception, Psych within last two years): N/A (01/19/241045) MITER CUTTER Transportation (Services received within the last 30 days): Patient drives self (01/19/241045) Outpatient Conservation Worker: No care production team advisor to display Comments: Pt lives alone in a single story house with a ramp to enter. Pt is independent for ADLs and driving. Pt ambulate with the use of a RW. Pt has no prior stays in any SNF/IRF/Psych/D&A facilities and uses no HH services. SW will continue to follow, address pt's evolving needs, and provide psychosocial support. Patient/Family Expectations: TBD For further screening information, please refer to the Care Management flow document. * Care Plan - Peyton Diaz RN - 01/19/2024 9:56 AM EST Clinical Goal(s): patient will have pain controlled this shift (01/19/24 0800) Possible barriers to meeting goal(s)/advancing plan of care: pelvic pain Stability of the patient: Moderately stable - low risk of patient condition declining or worsening Summary regarding today's goal(s): Met: patient had pain controlled this shift Recommendations: continue pain relief measures * Communication - Scot Quinteros DO - 01/19/2024 7:27 AM EST Link to Records Scanned from [facility]: Document on 01/19/2024 0728 by Scot Quinteros DO: Outside Records - [facility] * Care Plan - Flako Iglesias RN - 01/19/2024 5:09 AM EST Clinical Goal(s): Pt will remain free from falls/injury this shift (01/19/24 0139) Possible barriers to meeting goal(s)/advancing plan of care: Pt condition Stability of the patient: Moderately stable - low risk of patient condition declining or worsening Summary regarding today's goal(s): Met: Pt remained free from falls/injury Recommendations: Continue fall precautions * Ancillary Progress Note - Andrew Bennett RECRUITMENT ADVERTISING MANAGER-EXECUTIVE ASSISTANT TO PRESIDENT - 01/19/2024 3:09 AM EST PATIENT DRIVEN PROTOCOL - Respiratory Care Services [address] [address] Name: Aleida Sierra [place] [facility] Date: 01/19/2024 Time: 3:09 AM Patient Driven Protocol Summary: Initial evaluation performed. This Treatment Plan and medications will be reviewed by the Primary Care Team for any contraindications. Respiratory Care Treatment Plan Pulmonary Volume Expansion Therapy: Incentive Spirometry PRN to prevent or treat alveolar consolidation and atelectasis. Qday Incruse to reduce work of breathing Prn Albuterol to reduce work of breathing . The patient will be re-evaluated: No re-evaluation needed. Indications for treatment met. The Triage Level is: (Assessment Score = 0 - 5) Level 5. Triage Level Definitions: Level 1 Severe Respiratory/Airway Compromise Level 2 Moderate Respiratory/Airway Compromise or high risk for pulmonary complications Level 3 Mild Respiratory/Airway Compromise or moderate risk for pulmonary complications Level 4 Episodic Respiratory/Airway Compromise or low risk for pulmonary complications Level 5 No Respiratory/Airway Compromise Triage 1 Triage 2 Triage 3 Triage 4 Triage 5 greater than 20 16 - 20 11 - 15 6 - 10 0 - 5 Medical Record Assessment Clinical Findings Pulmonary Status: 1 - Smoking less than 1 pack/day or quit less than 5 years ago Surgical Status: 1 - General Surgery Chest X-Ray: 0 - Not Performed or performed greater than 3 days ago Assessment Score: 2 Patient Assessment Clinical Findings Respiratory Pattern: 0 - RR 12 - 20; Patient only gets breathless with strenuous exercise. Breath Sounds: 2 - Diminished bilaterally Cough Effectiveness: 0 - Strong non-productive Sputum Production: 0 - No sputum production Level of Activity: 1 - Ambulatory with assist O2 needed to keep SpO2 greater than or equal to 92%: 0 - Room Air Assessment Score: 3 Total Assessment Score: 5 Breath Sounds: Inspiratory and expiratory diminished bilaterally.. Cough and Sputum: No cough was present.. CXR: NA. Vital Signs: Resp: 16 (01/19/24138) Pulse: 99 (01/19/24141) Temp: 37 C (98.6 F) (01/19/24138) BP: 106/77 (01/19/24138) SpO2: 93 % (01/19/24138) PFT: Minimal Predicted IC: 0.747 L. Inspiratory capacity: 1.0 L. Primary Service: Trauma Surgery. Admitting Diagnosis: Fall [W19.XXXA] Pulmonary Diagnosis: Asthma and COPD. Prescriptions/Home Medications/Durable Medical Equipment: Spiriva and Albuterol. * Medical Necessity - Mariangel Willoughby RN - 01/19/2024 1:21 AM EST AdmissionCare Guideline: Musculoskeletal Disease - INPT, Inpatient Based on the indications selected for the patient, the bed status of Inpatient was determined to beMET The following indications were selected as present at the time of evaluation of the patient: - Clinical Indications for Admission to Inpatient Care - Hospital admission is needed for appropriate care of the patient because of 1 or more of the following: - Nonvertebral fracture, dislocation, or other musculoskeletal injury that requires inpatient care (medical), as indicated by 1 or more of the following: - Major injury requiring inpatient care (nature of injury necessitates inpatient treatment or monitoring) Additional Information: s/p FFS p/w minimally displaced fracture of R sup/inf pubic rami and R sacral ala Pelvis CT without contrast revealing acute fractures to the right pubic rami and right sacrum with mild associated anterior pelvic hematoma and mild hematoma along the right pubic ramus. Right asymmetric soft tissue prominence of the collapse rectum AdmissionCare documentation entered by: Mariangel Willoughby [facility], 28th edition, Copyright 2023 [facility] [employer] All Rights Reserved. [id number]:21:00-05:00 Solely for purpose of utilization review and payment; not a diagnostic tool * ED Business Segment Manager Note - Tiffany Pollack RN - 01/18/2024 9:47 PM EST Patient is a transfer from [facility] via EMS. Patient stated she had a fall from standing without LOC. Per report, patient has an acute fx of right pubic rami and right sacrum with pelvic hematoma. documented in this encounter Plan of Treatment Upcoming Encounters Date Type Department Care Team (Late st Contact Info) Description 01/30/2024 10:45 AM EST Office Visit Orthopaedics, [place] [address] [place] [address] [address] Scot Baum MD [address] [facility] [place] [address] 02/07/2024 10:30 AM EST Office Visit Urology, [facility] [address] [place] [address] [address] Zoe Barnard PA-C [address] [facility], [place] [address] 06/19/2024 8:40 AM EDT Office Visit Family Practice [facility] [address] [facility] [place] [address] Maria G Rendon DO [address] [facility] [place] [address] 08/17/2024 8:00 AM EDT Office Visit Pulmonary Medicine, [facility] [address] [place] [address] Humphrey Cormier MD [address] [facility] [id number] Scheduled Procedures Name Priority Associated Diagnoses Date/Ti me COLONOSCOPY FLEXIBLE PROXIMA L DIAGNOSTIC Recall Special screening for malignant neoplasms, colon Scheduled Referrals Name Type Priority Associated Diagnoses Order Schedule STAIR LUNG NODULE REFERRAL OP (SYSTEM FOR TRACKING ABNORMALITIES OF IMPORTANCE RELIABLY) Referral Within 10 days (routine) Pulmonary nodules Ordered: 01/23/2024 Health Maintenance Due Date Last Done Comments [...] Additional history exists CKD PHOS USE SMARTSET 91239 09/04/202408/18, 05/31/2022, 04/09/2019, Additional history exists CKD HGB USE SMARTSET 29686 01/26/202501/26, 01/26/2024, 01/25/2024, Additional history exists O2 [...] this encounter Medical Devices Implanted Type Area Package Checker Device Identifier Shelf Expiration Date Model / Serial / Lot Patch Xenosure [id number] - [id number] - [id number] Implanted:Qty : 1 on 05/12/2021 by David Boss MD [place] [facility] Right: Femoral Artery [employer] [id number] 11/15/2026 E0.8P8 / [id number] / [id number] Graft Stent Viab [id number] - [id number] - [id number] Implanted:Qty : 1 on 05/12/2021 by David Boss MD at [place] [facility] Right: Iliac [employer] [id number] 01/06/2024 [id number] / [id number] / [id number] documented as of this encounter Procedures Procedure Name Priority Date/Time Associated Diagnosis Comments HEPARIN, LOW MOLECULAR WEIGHT Timed 01/27/2024 9:31 AM EST BASIC METABOLIC PANEL Routine 01/27/2024 3:54 AM EST CBC Routine 01/27/2024 3:54 AM EST BASIC METABOLIC PANEL Routine 01/26/2024 4:20 AM EST CBC Routine 01/26/2024 4:20 AM EST BASIC METABOLIC PANEL Routine 01/25/2024 4:33 AM EST CBC Routine 01/25/2024 4:33 AM EST BASIC METABOLIC PANEL Routine 01/24/2024 3:26 AM EST CBC Routine 01/24/2024 3:26 AM EST BASIC METABOLIC PANEL Routine 01/23/2024 6:46 AM EST CBC Routine 01/23/2024 6:46 AM EST URINALYSIS, REFLEX TO CULTURE Routine 01/22/2024 1:59 PM EST URINALYSIS, REFLEX TO CULTURE (CUP ONLY) Routine 01/22/2024 1:59 PM EST EXTRA URINE Routine 01/22/2024 1:59 PM EST EXTRA TUBES Routine 01/22/2024 1:59 PM EST URINALYSIS, REFLEX TO CULTURE (NOT FOR NEUTROPENIC PATIENTS) Routine 01/22/2024 1:59 PM EST CULTURE, URINE, QUANTITATIVE Routine 01/22/2024 1:59 PM EST HEPARIN, LOW MOLECULAR WEIGHT Timed 01/22/2024 9:31 AM EST BASIC METABOLIC PANEL STAT 01/22/2024 7:48 AM EST CBC STAT 01/22/2024 7:48 AM EST HEPARIN, LOW MOLECULAR WEIGHT Timed 01/21/2024 9:24 AM EST CBC STAT 01/21/2024 8:06 AM EST BASIC METABOLIC PANEL Routine 01/21/2024 3:56 AM EST CBC STAT 01/20/2024 9:39 PM EST CBC STAT 01/20/2024 9:10 AM EST BASIC METABOLIC PANEL Routine 01/20/2024 4:50 AM EST CBC Routine 01/19/2024 10:57 PM EST CBC Routine 01/19/2024 1:22 PM EST BASIC METABOLIC PANEL Routine 01/19/2024 3:29 AM EST CBC Routine 01/19/2024 3:29 AM EST SARS-COV-2 (COVID-19), NAAT STAT 01/19/2024 1:08 AM EST MRSA SCREEN, PCR Routine 01/19/2024 1:0 8 AM EST URINALYSIS, REFLEX TO CULTURE Routine 01/19/2024 1:03 AM EST URINALYSIS, REFLEX TO CULTURE (CUP ONLY) Routine 01/19/2024 1:03 AM EST URINALYSIS, REFLEX TO CULTURE (NOT FOR NEUTROPENIC PATIENTS) Routine 01/19/2024 1:03 AM EST TOXICOLOGY, URINESCREEN W/O CONFIRMATION Routine 01/19/2024 1:03 AM EST ETHANOL, MEDICAL Routine 01/19/2024 12:5 3 AM EST HC ECG TRACING ONLY STAT 01/19/2024 1 2:[address] CHEST/ABDOMEN/PELVIS WITH IV CONTRAST WITHOUT ORAL CONTRAST Routine 01/18/2024 11:48 PM EST DIFFERENTIAL, AUTOMATED STAT 01/18/2024 10:18 PM EST BASIC METABOLIC PANEL STAT 01/18/2024 10:18 PM EST TYPE AND SCREEN STAT 01/18/2024 10:18 PM EST CBC STAT 01/18/2024 10:18 PM EST PT INR STAT 01/18/2024 10:18 PM EST AST STAT 01/18/2024 10:18 PM EST LACTATE STAT 01/18/2024 10:18 PM EST APTT STAT 01/18/2024 10:18 PM EST CBC STAT 01/18/2024 10:18 PM EST documented in this encounter Results * (ABNORMAL) HEPARIN, LOW MOLECULAR WEIGHT (01/27/2024 9:31 AM EST) Heparin, Low Molecular Weight 0.43(H) <0.10 IU/mL 01/27/2024 10:00 AM EST LABORAT[facility] Comment:Low molecular weight heparin's therapeutic range is 0.6 - 1.00 I.U./mL. Blood Venous blood specimen / Unknown Venipuncture / Unknown 01/27/2024 9:31 AM EST 01/27/2024 9:43 AM EST us Andrew Cazares MD LAB BLOOD ORDERABLES Fin al Result LABORATORY [facility] [address] [place] [address] * (ABNORMAL) BASIC METABOLIC PANEL (01/27/2024 3:54 AM EST) BUN 16 6 - 20 mg/dL 01/27/2024 5:03 AM EST LABORATORY [facility] CREATININE 1.0 0.5 - 1.0 mg/dL 01/27/2024 5:03 AM EST LAB[facility]ATORY [facility] EGFR 58(L) >=60 mL/min 01/27/2024 5:03 AM EST LAB[facility]ATORY [facility] Comment:eGFR is calculated b ased on the CKD-EPI 2020 equation. SODIUM 134(L) 135 - 146 mmol/L 01/27/2024 5:03 AM EST LAB[facility]ATORY [facility] POTASSIUM 3.9 3.5 - 5.1 mmol/L 01/27/2024 5:03 AM EST LAB[facility]ORY [facility] CHLORIDE 101 98 - 107 mmol/L 01/27/2024 5:03 AM EST LAB[facility]ORY [facility] CO2 25 22 - 32 mmol/L 01/27/2024 5:03 AM EST LAB[facility] ANION GAP 8 7 - 15 mmol/L 01/27/2024 5:03 AM EST LAB[facility] GLUCOSE 109 70 - 120 mg/dL 01/27/2024 5:03 AM EST LAB[facility] CALCIUM 8.7 8.4 - 10.2 mg/dL 01/27/2024 5:03 AM EST [facility] Blood Venous blood specimen / Unknown Venipuncture / Unknown 01/27/2024 3:54 AM EST 01/27/2024 4:28 AM EST Eric Ortiz MD LAB BLOOD ORDERABLES Mell l Result Performing Organization Address City/State/[facility] Co de Phone Number LABORATORY [facility] [address] [place] [address] * (ABNORMAL) CBC (01/27/2024 3:54 AM EST) WBC 6.67 4.00 - 10.80 K/uL 01/27/2024 4:42 AM EST LAB[facility]ATORY [facility] RBC 2.84 3.85 - 5.15 M/uL 01/27/2024 4:42 AM EST LABORATORY [facility] HGB 8.7(L) 12.0 - 15.3 g/dL 01/27/2024 4:42 AM EST LAB[facility]ATORY [facility] HCT 27.8(L) 36.0 - 45.2 % 01/27/2024 4:42 AM EST LAB[facility]ORY [facility] MCV 97.9 81.5 - 97.5 fL 01/27/2024 4:42 AM EST LAB[facility]ATORY [facility] MCH 30.6 27.0 - 34.0 pg 01/27/2024 4:42 AM EST LAB[facility]ORY [facility] MCHC 31.3 32.0 - 36.0 g/dL 01/27/2024 4:42 AM EST LAB[facility]ATORY [facility] RDW 13.1 11.5 - 15.5 % 01/27/2024 4:42 AM EST LAB[facility]ORY [facility] PLT 274 140 - 400 K/uL 01/27/2024 4:42 AM EST LAB[facility]ORY [facility] MPV 10.3 6.6 - 11.1 fL 01/27/2024 4:42 AM EST LAB[facility]ATORY [facility] nRBCs 0 <=0 /100 WBCs 01/27/2024 4:42 AM EST LABORATORY [facility] Blood Venous blood specimen / Unknown Venipuncture / Unknown 01/27/2024 3:54 AM EST 01/27/2024 4:28 AM EST us Eric Ortiz MD LAB BLOOD ORDERABLES Mell mancia Result Performing Organization Address City/State/[facility] Co de Phone Number LABORATORY [facility] [address] [place] [address] * (ABNORMAL) BASIC METABOLIC PANEL (01/26/2024 4:20 AM EST) BUN 16 6 - 20 mg/dL 01/26/2024 5:26 AM EST LAB[facility]ATORY [facility] CREATININE 1.0 0.5 - 1.0 mg/dL 01/26/2024 5:26 AM EST LAB[facility]ATORY [facility] EGFR 59(L) >=60 mL/min 01/26/2024 5:26 AM EST LAB[facility]ATORY [facility] Comment:eGFR is calculated b ased on the CKD-EPI 2020 equation. SODIUM 133(L) 135 - 146 mmol/L 01/26/2024 5:26 AM EST LAB[facility]ORY [facility] POTASSIUM 3.9 3.5 - 5.1 mmol/L 01/26/2024 5:26 AM EST LAB[facility] CHLORIDE 99 98 - 107 mmol/L 01/26/2024 5:26 AM EST LAB[facility] CO2 26 22 - 32 mmol/L 01/26/2024 5:26 AM EST LABORATORY [facility] ANION GAP 8 7 - 15 mmol/L 01/26/2024 5:26 AM EST LABOR[facility]ORY [facility] GLUCOSE 101 70 - 120 mg/dL 01/26/2024 5:26 AM EST LAB[facility]ORY [facility] CALCIUM 8.5 8.4 - 10.2 mg/dL 01/26/2024 5:26 AM EST LAB[facility]ORY [facility] Blood Venous blood specimen / Unknown Venipuncture / Unknown 01/26/2024 4:20 AM EST 01/26/2024 4:48 AM EST Eric Ortiz MD LAB BLOOD ORDERABLES Mell l Result LABORATORY [facility] [address] [place] [address] * (ABNORMAL) CBC (01/26/2024 4:20 AM EST) Pathologist [facility] WBC 7.70 4.00 - 10.80 K/uL 01/26/2024 5:09 AM EST LABORATORY [facility] RBC 2.88 3.85 - 5.15 M/uL 01/26/2024 5:09 AM EST LABORATORY [facility] HGB 9.1(L) 12.0 - 15.3 g/dL 01/26/2024 5:09 AM EST LABORATORY [facility] HCT 28.4(L) 36.0 - 45.2 % 01/26/2024 5:09 AM EST LABORATORY [facility] MCV 98.6 81.5 - 97.5 fL 01/26/2024 5:09 AM EST LABORATORY [facility] MCH 31.6 27.0 - 34.0 pg 01/26/2024 5:09 AM EST LABORATORY [facility] MCHC 32.0 32.0 - 36.0 g/dL 01/26/2024 5:09 AM EST LABORATORY [facility] RDW 13.0 11.5 - 15.5 % 01/26/2024 5:09 AM EST LABORATORY [facility] PLT 247 140 - 400 K/uL 01/26/2024 5:09 AM EST LABORATORY [facility] MPV 10.5 6.6 - 11.1 fL 01/26/2024 5:09 AM EST LABORATORY [facility] nRBCs 0 <=0 /100 WBCs 01/26/2024 5:09 AM EST LABORATORY [facility] Blood Venous blood specimen / Unknown Venipuncture / Unknown 01/26/2024 4:20 AM EST 01/26/2024 4:48 AM EST Eric Ortiz MD LAB BLOOD ORDERABLES Mell gavino Result LABORATORY [facility] [address] [place] [address] * (ABNORMAL) BASIC METABOLIC PANEL (01/25/2024 4:33 AM EST) BUN 21(H) 6 - 20 mg/dL 01/25/2024 5:16 AM EST LABORATORY [facility] CREATININE 1.0 0.5 - 1.0 mg/dL 01/25/2024 5:16 AM EST LABORATORY [facility] EGFR 59(L) >=60 mL/min 01/25/2024 5:16 AM EST LABORATORY [facility] Comment:eGFR is calculated b ased on the CKD-EPI 2020 equation. SODIUM 136 135 - 146 mmol/L 01/25/2024 5:16 AM EST LAB[facility]ATORY [facility] POTASSIUM 4.2 3.5 - 5.1 mmol/L 01/25/2024 5:16 AM EST LAB[facility]ATORY [facility] CHLORIDE 102 98 - 107 mmol/L 01/25/2024 5:16 AM EST LAB[facility]ORY [facility] CO2 24 22 - 32 mmol/L 01/25/2024 5:16 AM EST LAB[facility]ORY [facility] ANION GAP 10 7 - 15 mmol/L 01/25/2024 5:16 AM EST LAB[facility]ATORY [facility] GLUCOSE 99 70 - 120 mg/dL 01/25/2024 5:16 AM EST LAB[facility]ATORY [facility] CALCIUM 8.7 8.4 - 10.2 mg/dL 01/25/2024 5:16 AM EST LABORATORY [facility] Blood Venous blood specimen / Unknown Venipuncture / Unknown 01/25/2024 4:33 AM EST 01/25/2024 4:47 AM EST us Eric Ortiz MD LAB BLOOD ORDERABLES Mell l Result Performing Organization Address City/[facility]/ZIP Co de Phone Number LABORATORY [facility] [address] [place] [address] * (ABNORMAL) CBC (01/25/2024 4:33 AM EST) Pathologist [facility] WBC 7.67 4.00 - 10.80 K/uL 01/25/2024 4:58 AM EST LABORATORY [facility] RBC 2.98 3.85 - 5.15 M/uL 01/25/2024 4:58 AM EST LABORATORY [facility] HGB 9.3(L) 12.0 - 15.3 g/dL 01/25/2024 4:58 AM EST LAB[facility]ATORY [facility] HCT 29.1(L) 36.0 - 45.2 % 01/25/2024 4:58 AM EST LAB[facility]ATORY [facility] MCV 97.7 81.5 - 97.5 fL 01/25/2024 4:58 AM EST LAB[facility]ATORY [facility] MCH 31.2 27.0 - 34.0 pg 01/25/2024 4:58 AM EST LAB[facility]ATORY [facility] MCHC 32.0 32.0 - 36.0 g/dL 01/25/2024 4:58 AM EST LAB[facility]ATORY [facility] RDW 13.1 11.5 - 15.5 % 01/25/2024 4:58 AM EST LAB[facility]ATORY [facility] PLT 215 140 - 400 K/uL 01/25/2024 4:58 AM EST LAB[facility]ATORY [facility] MPV 9.9 6.6 - 11.1 fL 01/25/2024 4:58 AM EST LAB[facility]ATORY [facility] nRBCs 0 <=0 /100 WBCs 01/25/2024 4:58 AM EST LAB[facility]ATORY [facility] Blood Venous blood specimen / Unknown Venipuncture / Unknown 01/25/2024 4:33 AM EST 01/25/2024 4:47 AM EST Eric Ortiz MD LAB BLOOD ORDERABLES Mell l Result Performing Organization Address City/[facility]/ZIP Co de Phone Number LABORATORY [facility] [address] [place] [address] * (ABNORMAL) BASIC METABOLIC PANEL (01/24/2024 3:26 AM EST) BUN 30(H) 6 - 20 mg/dL 01/24/2024 4:05 AM EST LABORATORY [facility] CREATININE 1.1(H) 0.5 - 1.0 mg/dL 01/24/2024 4:05 AM EST LABORATORY [facility] EGFR 49(L) >=60 mL/min 01/24/2024 4:05 AM EST LABORATORY [facility] Comment:eGFR is calculated b ased on the CKD-EPI 2020 equation. SODIUM 135 135 - 146 mmol/L 01/24/2024 4:05 AM EST LAB[facility]ATORY [facility] POTASSIUM 4.0 3.5 - 5.1 mmol/L 01/24/2024 4:05 AM EST LABORATORY C CHLORIDE 102 98 - 107 mmol/L 01/24/2024 4:05 AM EST LABORATORY C CO2 23 22 - 32 mmol/L 01/24/2024 4:05 AM EST LABORATORY [facility] ANION GAP 10 7 - 15 mmol/L 01/24/2024 4:05 AM EST LABORATORY C GLUCOSE 93 70 - 120 mg/dL 01/24/2024 4:05 AM EST LABORATORY C CALCIUM 8.4 8.4 - 10.2 mg/dL 01/24/2024 4:05 AM EST LABORATORY [facility] Blood Venous blood specimen / Unknown Venipuncture / Unknown 01/24/2024 3:26 AM EST 01/24/2024 3:36 AM EST us Eric Ortiz MD LAB BLOOD ORDERABLES Mell l Result Performing Organization Address City/State/[facility] Co de Phone Number LABORATORY [facility] [address] [place] [address] * (ABNORMAL) CBC (01/24/2024 3:26 AM EST) WBC 8.33 4.00 - 10.80 K/uL 01/24/2024 3:47 AM EST LABORATORY [facility] RBC 2.85 3.85 - 5.15 M/uL 01/24/2024 3:47 AM EST LABORATORY [facility] HGB 9.0(L) 12.0 - 15.3 g/dL 01/24/2024 3:47 AM EST LABORATORY [facility] HCT 27.9(L) 36.0 - 45.2 % 01/24/2024 3:47 AM EST LABORATORY [facility] MCV 97.9 81.5 - 97.5 fL 01/24/2024 3:47 AM EST LABORATORY [facility] MCH 31.6 27.0 - 34.0 pg 01/24/2024 3:47 AM EST LABOR[facility]ORY [facility] MCHC 32.3 32.0 - 36.0 g/dL 01/24/2024 3:47 AM EST LAB[facility]ORY [facility] RDW 13.1 11.5 - 15.5 % 01/24/2024 3:47 AM EST LABORATORY [facility] PLT 193 140 - 400 K/uL 01/24/2024 3:47 AM EST LAB[facility]ORY [facility] MPV 9.9 6.6 - 11.1 fL 01/24/2024 3:47 AM EST LAB[facility]ORY [facility] nRBCs 0 <=0 /100 WBCs 01/24/2024 3:47 AM EST LAB[facility]ORY [facility] Blood Venous blood specimen / Unknown Venipuncture / Unknown 01/24/2024 3:26 AM EST 01/24/2024 3:36 AM EST us Eric Ortiz MD LAB BLOOD ORDERABLES Mell mancia Result LABORATORY [facility] [address] [place] [address] * (ABNORMAL) BASIC METABOLIC PANEL (01/23/2024 6:46 AM EST) BUN 41(H) 6 - 20 mg/dL 01/23/2024 8:06 AM EST LAB[facility]ORY [facility] CREATININE 1.3(H) 0.5 - 1.0 mg/dL 01/23/2024 8:06 AM EST LAB[facility]ORY [facility] EGFR 41(L) >=60 mL/min 01/23/2024 8:06 AM EST LAB[facility]ORY [facility] Comment:eGFR is calculated b ased on the CKD-EPI 2020 equation. SODIUM 132(L) 135 - 146 mmol/L 01/23/2024 8:06 AM EST LABORATORY [facility] POTASSIUM 4.4 3.5 - 5.1 mmol/L 01/23/2024 8:06 AM EST LAB[facility]ATORY [facility] CHLORIDE 100 98 - 107 mmol/L 01/23/2024 8:06 AM EST LAB[facility]ORY [facility] CO2 21(L) 22 - 32 mmol/L 01/23/2024 8:06 AM EST LAB[facility]ORY [facility] ANION GAP 11 7 - 15 mmol/L 01/23/2024 8:06 AM EST LAB[facility]ORY [facility] GLUCOSE 83 70 - 120 mg/dL 01/23/2024 8:06 AM EST LAB[facility]ORY [facility] CALCIUM 8.6 8.4 - 10.2 mg/dL 01/23/2024 8:06 AM EST LAB[facility]ATORY [facility] Blood Venous blood specimen / Unknown Venipuncture / Unknown 01/23/2024 6:46 AM EST 01/23/2024 7:37 AM EST Eric Ortiz MD LAB BLOOD ORDERABLES Mell mancia Result LABORATORY [facility] [address] [place] [address] * (ABNORMAL) CBC (01/23/2024 6:46 AM EST) WBC 9.75 4.00 - 10.80 K/uL 01/23/2024 7:48 AM EST LAB[facility]ATORY [facility] RBC 2.93 3.85 - 5.15 M/uL 01/23/2024 7:48 AM EST LAB[facility]ATORY [facility] HGB 9.3(L) 12.0 - 15.3 g/dL 01/23/2024 7:48 AM EST LAB[facility]ATORY [facility] HCT 28.9(L) 36.0 - 45.2 % 01/23/2024 7:48 AM EST LAB[facility]ATORY [facility] MCV 98.6 81.5 - 97.5 fL 01/23/2024 7:48 AM EST LAB[facility]ATORY [facility] MCH 31.7 27.0 - 34.0 pg 01/23/2024 7:48 AM EST LAB[facility]ATORY [facility] MCHC 32.2 32.0 - 36.0 g/dL 01/23/2024 7:48 AM EST LAB[facility]ATORY [facility] RDW 13.2 11.5 - 15.5 % 01/23/2024 7:48 AM EST LABORATORY [facility] PLT 184 140 - 400 K/uL 01/23/2024 7:48 AM EST LAB[facility]ATORY [facility] MPV 10.2 6.6 - 11.1 fL 01/23/2024 7:48 AM EST LABOR[facility]ORY [facility] nRBCs 0 <=0 /100 WBCs 01/23/2024 7:48 AM EST LAB[facility]ORY [facility] Blood Venous blood specimen / Unknown Venipuncture / Unknown 01/23/2024 6:46 AM EST 01/23/2024 7:37 AM EST Eric Ortiz MD LAB BLOOD ORDERABLES Mell mancia Result LABORATORY [facility] [address] [place] [address] * (ABNORMAL) CULTURE, URINE, QUANTITATIVE (01/22/2024 1:59 PM EST) Pathologist [facility] Culture Growth >100,000 colonies/mL Escherichia coli(A) MICROBROTH DILUTIONS 01/26/2024 1:45 PM EST LABORATORY [facility] Culture Growth 10,000 to 100,000 colonies/mL - Second type Escherichia coli(A) MICROBROTH DILUTIONS 01/26/2024 1:45 PM EST LABORATORY [facility] Urine Urine specimen obtained by clean catch procedure / Unknown Non-blood Collection / Unknown 01/22/2024 1:59 PM EST 01/22/2024 2:06 PM EST Narrative LABORATORY [facility] - 01/26/2024 1:45 PM EST <10,000 colonies/ml normal magdi, one colony type Organism Antibiotic Method Susceptibility Escherichia coli Ampicillin MICROBROTH DILUTIONS 8: Susceptible Escherichia coli Cefazolin MICROBROTH DILUTIONS <=4: Susceptible Escherichia coli Cefepime MICROBROTH DILUTIONS <=1: Susceptible Escherichia coli Ceftriaxone MICROBROTH DILUTIONS <=1: Susceptible Escherichia coli Ciprofloxacin MICROBROTH DILUTIONS <=0.25: Susceptible Comment:Due to eloina us side effects, the FDA has advised against using Ciprofloxacin to treat uncomplicated UTIs and respiratory tract infections unless there are no alternative treatment options. Escherichia coli Gentamicin MICROBROTH DILUTIONS <=1: Susceptible Escherichia coli Nitrofurantoin MICROBROTH DILUTIONS <=16: Susceptible Escherichia coli Piperacillin Tazobactam MICROBROTH DI LUTIONS <=4: Susceptible Escherichia coli Trimeth/Sulfamethoxazole MICROBROTH D ILUTIONS <=20: Susceptible Escherichia coli Ampicillin MICROBROTH DILUTIONS 8: Susceptible Escherichia coli Cefazolin MICROBROTH DILUTIONS <=4: Susceptible Escherichia coli Cefepime MICROBROTH DILUTIONS <=1: Susceptible Escherichia coli Cefoxitin MICROBROTH DILUTIONS 16: Intermediate Escherichia coli Ceftriaxone MICROBROTH DILUTIONS <=1: Susceptible Escherichia coli Ciprofloxacin MICROBROTH DILUTIONS <=0.25: Susceptible Comment:Due to eloina us side effects, the FDA has advised against using Ciprofloxacin to treat uncomplicated UTIs and respiratory tract infections unless there are no alternative treatment options. Escherichia coli Gentamicin MICROBROTH DILUTIONS <=1: Susceptible Escherichia coli Nitrofurantoin MICROBROTH DILUTIONS <=16: Susceptible Escherichia coli Piperacillin Tazobactam MICROBROTH DI LUTIONS <=4: Susceptible Escherichia coli Trimeth/Sulfamethoxazole MICROBROTH D ILUTIONS <=20: Susceptible Susanna Major MD LAB MICRO - GENERAL ORDGuido MENDOZA Final Result Performing Organization Address [facility] de Phone Number LABORATORY [place] [address] [place] [address] * EXTRA URINE (01/22/2024 1:59 PM EST) Urine Urine specimen / Unknown 01/22/2024 1:59 PM EST 01/22/2024 2:07 PM EST us Andrew Cazares MD LAB URINE ORDERABLES Fin al Result Performing Organization Address [facility] de Phone Number LABORATORY [address] [address] * (ABNORMAL) URINALYSIS, REFLEX TO CULTURE (01/22/2024 1:59 PM EST) Color, Urine Light Yellow Colorless, Light Yellow, Yellow, Dark Yellow 01/22/2024 2:19 PM EST LABORATORY [facility] Clarity, Urine Clear Clear 01/22/2024 2:19 PM EST LABORATORY [facility] Glucose, Urine Negative Negative mg/dL 01/22/2024 2:19 PM EST LABORATORY [facility] Bilirubin, Urine Negative Negative 01/22/2024 2:19 PM EST LABORATORY [facility] Ketone, Urine 15(A) Negative mg/dL 01/22/2024 2:19 PM EST LABORATORY [facility] Specific [place], Urine 1.020 1.003 - 1.030 01/22/2024 2:19 PM EST LAB[facility]ATORY [facility] Blood, Urine Moderate(A) Negative 01/22/2024 2:19 PM EST LABORATORY [facility] pH, Urine 6.0 5.0 - 7.5 Units 01/22/2024 2:19 PM EST LAB[facility]ATORY [facility] Protein, Urine Trace(A) Negative mg/dL 01/22/2024 2:19 PM EST LAB[facility]ATORY [facility] Urobilinogen, Urine Normal Normal mg/dL 01/22/2024 2:19 PM EST LAB[facility]ATORY [facility] Nitrite, Urine Positive(A) Negative 01/22/2024 2:19 PM EST LAB[facility]ATORY [facility] Esterase, Urine Large(A) Negative 01/22/2024 2:19 PM EST LAB[facility]ATORY [facility] RBC, Urine 20-29(A) 0 - 2 /HPF 01/22/2024 2:19 PM EST LAB[facility]ATORY [facility] WBC, Urine 30-49(A) 0 - 2 /HPF 01/22/2024 2:19 PM EST LAB[facility]ATORY [facility] Bacteria, Urine >200(A) 0 - 25 /HPF 01/22/2024 2:19 PM EST LAB[facility]ATORY [facility] Hyaline, Cast, Urine 1-4(A) None /LPF 01/22/2024 2:19 PM EST LABORATORY [facility] Culture, Urine 01/22/2024 2:19 PM EST LABORATORY [facility] Comment:Quantitative urine c ulture to be performed Urine Urine specimen obtained by clean catch procedure / Unknown Non-blood Collection / Unknown 01/22/2024 1:59 PM EST 01/22/2024 2:06 PM EST us Susanna Major MD LAB URINE ORDERABLES Fin al Result LABORATORY [facility] [address] [place] [address] * URINALYSIS, REFLEX TO CULTURE (CUP ONLY) (01/22/2024 1:59 PM EST) Urinalysis, Reflex to Culture Specimen Specimen collected and received 01/22/2024 4:01 PM EST LABORATORY [facility] Urine Urine specimen obtained by clean catch procedure / Unknown Non-blood Collection / Unknown 01/22/2024 1:59 PM EST 01/22/2024 2:06 PM EST Susanna Major MD LAB URINE ORDERABLES Fin al Result Performing Organization Address [facility] Co de Phone Number LABORATORY [facility] [address] [place] [address] * (ABNORMAL) HEPARIN, LOW MOLECULAR WEIGHT (01/22/2024 9:31 AM EST) Heparin, Low Molecular Weight 0.33(H) <0.10 IU/mL 01/22/2024 11:21 AM EST LABORATORY [facility] Comment:Low molecular weight heparin's therapeutic range is 0.6 - 1.00 I.U./mL. Blood Venous blood specimen / Unknown Venipuncture / Unknown 01/22/2024 9:31 AM EST 01/22/2024 9:43 AM EST Elida Sr DO LAB BLOOD ORDERABLES Final Resul t Performing Organization Address [facility] de Phone Number LABORATORY [facility] [address] [place] [address] * (ABNORMAL) BASIC METABOLIC PANEL (01/22/2024 7:48 AM EST) BUN 44(H) 6 - 20 mg/dL 01/22/2024 8:23 AM EST LABORATORY [facility] CREATININE 1.6(H) 0.5 - 1.0 mg/dL 01/22/2024 8:23 AM EST LAB[facility]ATORY [facility] EGFR 33(L) >=60 mL/min 01/22/2024 8:23 AM EST LABORATORY [facility] Comment:eGFR is calculated b ased on the CKD-EPI 2020 equation. SODIUM 133(L) 135 - 146 mmol/L 01/22/2024 8:23 AM EST LAB[facility]ATORY [facility] POTASSIUM 4.8 3.5 - 5.1 mmol/L 01/22/2024 8:23 AM EST LAB[facility]ATORY [facility] CHLORIDE 100 98 - 107 mmol/L 01/22/2024 8:23 AM EST LAB[facility]ORY [facility] CO2 18(L) 22 - 32 mmol/L 01/22/2024 8:23 AM EST LAB[facility]ORY [facility] ANION GAP 15 7 - 15 mmol/L 01/22/2024 8:23 AM EST LAB[facility]ORY [facility] GLUCOSE 83 70 - 120 mg/dL 01/22/2024 8:23 AM EST LAB[facility]ATORY [facility] CALCIUM 8.3(L) 8.4 - 10.2 mg/dL 01/22/2024 8:23 AM EST LAB[facility]ATORY [facility] Blood Venous blood specimen / Unknown Venipuncture / Unknown 01/22/2024 7:48 AM EST 01/22/2024 7:57 AM EST us Vaishali Hirsch PA-C LAB BLOOD ORDERABLES Final Result LABORATORY [facility] [address] [place] [address] * (ABNORMAL) CBC (01/22/2024 7:48 AM EST) WBC 15.92(H) 4.00 - 10.80 K/uL 01/22/2024 8:09 AM EST [facility] RBC 3.02 3.85 - 5.15 M/uL 01/22/2024 8:09 AM EST [facility] HGB 9.3(L) 12.0 - 15.3 g/dL 01/22/2024 8:09 AM EST [facility] HCT 29.8(L) 36.0 - 45.2 % 01/22/2024 8:09 AM EST [facility] MCV 98.7 81.5 - 97.5 fL 01/22/2024 8:09 AM EST [facility] MCH 30.8 27.0 - 34.0 pg 01/22/2024 8:09 AM EST [facility] MCHC 31.2 32.0 - 36.0 g/dL 01/22/2024 8:09 AM EST [facility] RDW 13.1 11.5 - 15.5 % 01/22/2024 8:09 AM EST [facility] PLT 180 140 - 400 K/uL 01/22/2024 8:09 AM EST [facility] MPV 10.1 6.6 - 11.1 fL 01/22/2024 8:09 AM EST [facility] nRBCs 0 <=0 /100 WBCs 01/22/2024 8:09 AM EST [facility] Blood Venous blood specimen / Unknown Venipuncture / Unknown 01/22/2024 7:48 AM EST 01/22/2024 7:57 AM EST Vaishali Hirsch PA-C LAB BLOOD ORDERABLES Final Result Performing Organization Address City/[facility]/ZIP Co de Phone Number LAB[facility]ATORY [facility] [address] [place] [address] * (ABNORMAL) HEPARIN, LOW MOLECULAR WEIGHT (01/21/2024 9:24 AM EST) Heparin, Low Molecular Weight 0.45(H) <0.10 IU/mL 01/21/2024 10:08 AM EST [facility] Comment:Low molecular weight heparin's therapeutic range is 0.6 - 1.00 I.U./mL. Blood Venous blood specimen / Unknown Venipuncture / Unknown 01/21/2024 9:24 AM EST 01/21/2024 9:43 AM EST Scot Quinteros DO LAB BLOOD ORDERABLES Final Result Performing Organization Address [facility]/ZIP Co de Phone Number LAB[facility]ATORY [facility] [address] [place] [address] * (ABNORMAL) CBC (01/21/2024 8:06 AM EST) WBC 13.85(H) 4.00 - 10.80 K/uL 01/21/2024 8:43 AM EST LABORATORY [facility] RBC 3.19 3.85 - 5.15 M/uL 01/21/2024 8:43 AM EST [facility] HGB 10.1(L) 12.0 - 15.3 g/dL 01/21/2024 8:43 AM EST LAB[facility]ATORY [facility] HCT 32.4(L) 36.0 - 45.2 % 01/21/2024 8:43 AM EST [facility] MCV 101.6 81.5 - 97.5 fL 01/21/2024 8:43 AM EST LAB[facility]ATORY [facility] MCH 31.7 27.0 - 34.0 pg 01/21/2024 8:43 AM EST LAB[facility]ATORY [facility] MCHC 31.2 32.0 - 36.0 g/dL 01/21/2024 8:43 AM EST LAB[facility]ATORY [facility] RDW 12.9 11.5 - 15.5 % 01/21/2024 8:43 AM EST LAB[facility]ATORY [facility] PLT 165 140 - 400 K/uL 01/21/2024 8:43 AM EST LAB[facility]ATORY [facility] MPV 10.5 6.6 - 11.1 fL 01/21/2024 8:43 AM EST [facility] nRBCs 0 <=0 /100 WBCs 01/21/2024 8:43 AM EST LAB[facility]ATORY [facility] Blood Venous blood specimen / Unknown Venipuncture / Unknown 01/21/2024 8:06 AM EST 01/21/2024 8:30 AM EST Shaun Rodriguez DO LAB BLOOD ORDERABLES Final Resul t LABORATORY [facility] [address] [place] [address] * (ABNORMAL) BASIC METABOLIC PANEL (01/21/2024 3:56 AM EST) BUN 31(H) 6 - 20 mg/dL 01/21/2024 5:02 AM EST LABORATORY [facility] CREATININE 1.7(H) 0.5 - 1.0 mg/dL 01/21/2024 5:02 AM EST LAB[facility]AT[facility] EGFR 31(L) >=60 mL/min 01/21/2024 5:02 AM EST LAB[facility]ATORY [facility] Comment:eGFR is calculated b ased on the CKD-EPI 2020 equation. SODIUM 135 135 - 146 mmol/L 01/21/2024 5:02 AM EST LAB[facility] POTASSIUM 4.7 3.5 - 5.1 mmol/L 01/21/2024 5:02 AM EST LAB[facility]AT[facility] CHLORIDE 102 98 - 107 mmol/L 01/21/2024 5:02 AM EST [facility] CO2 20(L) 22 - 32 mmol/L 01/21/2024 5:02 AM EST LAB[facility] ANION GAP 13 7 - 15 mmol/L 01/21/2024 5:02 AM EST [facility] GLUCOSE 77 70 - 120 mg/dL 01/21/2024 5:02 AM EST [facility] CALCIUM 8.6 8.4 - 10.2 mg/dL 01/21/2024 5:02 AM EST LAB[facility] Blood Venous blood specimen / Unknown Venipuncture / Unknown 01/21/2024 3:56 AM EST 01/21/2024 4:31 AM EST us Scot Quinteros DO LAB BLOOD ORDERABLES Final Result LABORATORY [facility] [address] [place] [address] * (ABNORMAL) CBC (01/20/2024 9:39 PM EST) WBC 11.01(H) 4.00 - 10.80 K/uL 01/20/2024 10:26 PM EST LAB[facility]ATORY [facility] RBC 3.20 3.85 - 5.15 M/uL 01/20/2024 10:26 PM EST LAB[facility]ATORY [facility] HGB 10.1(L) 12.0 - 15.3 g/dL 01/20/2024 10:26 PM EST LAB[facility]ATORY [facility] HCT 32.1(L) 36.0 - 45.2 % 01/20/2024 10:26 PM EST LAB[facility]AT[facility] MCV 100.3 81.5 - 97.5 fL 01/20/2024 10:26 PM EST LAB[facility]ATORY [facility] MCH 31.6 27.0 - 34.0 pg 01/20/2024 10:26 PM EST LAB[facility]AT[facility] MCHC 31.5 32.0 - 36.0 g/dL 01/20/2024 10:26 PM EST LAB[facility]ATORY [facility] RDW 13.2 11.5 - 15.5 % 01/20/2024 10:26 PM EST LAB[facility]ATORY [facility] PLT 149 140 - 400 K/uL 01/20/2024 10:26 PM EST LAB[facility]ATORY [facility] MPV 10.7 6.6 - 11.1 fL 01/20/2024 10:26 PM EST LAB[facility]ATORY [facility] nRBCs 0 <=0 /100 WBCs 01/20/2024 10:26 PM EST LAB[facility]ATORY [facility] Blood Venous blood specimen / Unknown Venipuncture / Unknown 01/20/2024 9:39 PM EST 01/20/2024 9:53 PM EST Shaun Rodriguez DO LAB BLOOD ORDERABLES Final Resul t LABORATORY [facility] [address] [place] [address] * (ABNORMAL) CBC (01/20/2024 9:10 AM EST) WBC 10.12 4.00 - 10.80 K/uL 01/20/2024 9:33 AM EST LAB[facility]AT[facility] RBC 3.14 3.85 - 5.15 M/uL 01/20/2024 9:33 AM EST LAB[facility]ATORY [facility] HGB 10.0(L) 12.0 - 15.3 g/dL 01/20/2024 9:33 AM EST LAB[facility]ATORY [facility] HCT 31.6(L) 36.0 - 45.2 % 01/20/2024 9:33 AM EST LAB[facility]ATORY [facility] MCV 100.6 81.5 - 97.5 fL 01/20/2024 9:33 AM EST LAB[facility]AT[facility] MCH 31.8 27.0 - 34.0 pg 01/20/2024 9:33 AM EST LAB[facility]AT[facility] MCHC 31.6 32.0 - 36.0 g/dL 01/20/2024 9:33 AM EST LAB[facility]ATORY [facility] RDW 13.4 11.5 - 15.5 % 01/20/2024 9:33 AM EST LAB[facility]ATORY [facility] PLT 145 140 - 400 K/uL 01/20/2024 9:33 AM EST LAB[facility]AT[facility] MPV 10.5 6.6 - 11.1 fL 01/20/2024 9:33 AM EST LAB[facility]AT[facility] nRBCs 0 <=0 /100 WBCs 01/20/2024 9:33 AM EST LAB[facility]ATORY [facility] Blood Venous blood specimen / Unknown Venipuncture / Unknown 01/20/2024 9:10 AM EST 01/20/2024 9:19 AM EST Vaishali Hirsch PA-C LAB BLOOD ORDERABLES Final Result LABORATORY [facility] [address] [place] [address] * (ABNORMAL) BASIC METABOLIC PANEL (01/20/2024 4:50 AM EST) BUN 27(H) 6 - 20 mg/dL 01/20/2024 6:01 AM EST LAB[facility]ATORY [facility] CREATININE 1.7(H) 0.5 - 1.0 mg/dL 01/20/2024 6:01 AM EST LABORATORY [facility] EGFR 30(L) >=60 mL/min 01/20/2024 6:01 AM EST LABORATORY [facility] Comment:eGFR is calculated b ased on the CKD-EPI 2020 equation. SODIUM 134(L) 135 - 146 mmol/L 01/20/2024 6:01 AM EST LABORATORY [facility] POTASSIUM 4.6 3.5 - 5.1 mmol/L 01/20/2024 6:01 AM EST LABORATORY [facility] CHLORIDE 102 98 - 107 mmol/L 01/20/2024 6:01 AM EST LAB[facility]ATORY [facility] CO2 23 22 - 32 mmol/L 01/20/2024 6:01 AM EST LAB[facility]ATORY [facility] ANION GAP 9 7 - 15 mmol/L 01/20/2024 6:01 AM EST LAB[facility]ATORY [facility] GLUCOSE 94 70 - 120 mg/dL 01/20/2024 6:01 AM EST LAB[facility]ATORY [facility] CALCIUM 8.6 8.4 - 10.2 mg/dL 01/20/2024 6:01 AM EST LAB[facility]ATORY [facility] Blood Venous blood specimen / Unknown Venipuncture / Unknown 01/20/2024 4:50 AM EST 01/20/2024 5:30 AM EST Scot Quinteros DO LAB BLOOD ORDERABLES Final Result LABORATORY [facility] [address] [place] [address] * (ABNORMAL) CBC (01/19/2024 10:57 PM EST) WBC 8.91 4.00 - 10.80 K/uL 01/19/2024 11:13 PM EST LABORATORY [facility] RBC 3.14 3.85 - 5.15 M/uL 01/19/2024 11:13 PM EST LAB[facility]ATORY [facility] HGB 9.9(L) 12.0 - 15.3 g/dL 01/19/2024 11:13 PM EST LAB[facility]ATORY [facility] HCT 31.2(L) 36.0 - 45.2 % 01/19/2024 11:13 PM EST LAB[facility]ATORY [facility] MCV 99.4 81.5 - 97.5 fL 01/19/2024 11:13 PM EST LAB[facility]ATORY [facility] MCH 31.5 27.0 - 34.0 pg 01/19/2024 11:13 PM EST LAB[facility]ATORY [facility] MCHC 31.7 32.0 - 36.0 g/dL 01/19/2024 11:13 PM EST LAB[facility]ATORY [facility] RDW 13.4 11.5 - 15.5 % 01/19/2024 11:13 PM EST LABORATORY [facility] PLT 141 140 - 400 K/uL 01/19/2024 11:13 PM EST LAB[facility]ATORY [facility] MPV 10.3 6.6 - 11.1 fL 01/19/2024 11:13 PM EST LABORATORY [facility] nRBCs 0 <=0 /100 WBCs 01/19/2024 11:13 PM EST LAB[facility]ATORY [facility] Blood Venous blood specimen / Unknown Venipuncture / Unknown 01/19/2024 10:57 PM EST 01/19/2024 11:04 PM EST Scot Quinteros DO LAB BLOOD ORDERABLES Final Result Performing Organization Address City/State/[facility] Co de Phone Number LABORATORY [facility] [address] [place] [address] * (ABNORMAL) CBC (01/19/2024 1:22 PM EST) WBC 8.31 4.00 - 10.80 K/uL 01/19/2024 2:04 PM EST LABORATORY [facility] RBC 3.07 3.85 - 5.15 M/uL 01/19/2024 2:04 PM EST LABORATORY [facility] HGB 9.9(L) 12.0 - 15.3 g/dL 01/19/2024 2:04 PM EST LAB[facility]ATORY [facility] HCT 30.5(L) 36.0 - 45.2 % 01/19/2024 2:04 PM EST LAB[facility]ATORY [facility] MCV 99.3 81.5 - 97.5 fL 01/19/2024 2:04 PM EST LAB[facility]ATORY [facility] MCH 32.2 27.0 - 34.0 pg 01/19/2024 2:04 PM EST LABORATORY [facility] MCHC 32.5 32.0 - 36.0 g/dL 01/19/2024 2:04 PM EST LABORATORY [facility] RDW 13.7 11.5 - 15.5 % 01/19/2024 2:04 PM EST LABORATORY [facility] PLT 143 140 - 400 K/uL 01/19/2024 2:04 PM EST LABORATORY [facility] MPV 10.5 6.6 - 11.1 fL 01/19/2024 2:04 PM EST LABORATORY [facility] nRBCs 0 <=0 /100 WBCs 01/19/2024 2:04 PM EST LABORATORY [facility] Blood Venous blood specimen / Unknown Venipuncture / Unknown 01/19/2024 1:22 PM EST 01/19/2024 1:51 PM EST us Scot Quinteros DO LAB BLOOD ORDERABLES Final Result Performing Organization Address City/State/[facility] Co de Phone Number LABORATORY [facility] [address] [place] [address] * (ABNORMAL) BASIC METABOLIC PANEL (01/19/2024 3:29 AM EST) BUN 25(H) 6 - 20 mg/dL 01/19/2024 4:19 AM EST LABORATORY [facility] CREATININE 1.4(H) 0.5 - 1.0 mg/dL 01/19/2024 4:19 AM EST LABORATORY [facility] EGFR 38(L) >=60 mL/min 01/19/2024 4:19 AM EST LABORATORY [facility] Comment:eGFR is calculated b ased on the CKD-EPI 2020 equation. SODIUM 135 135 - 146 mmol/L 01/19/2024 4:19 AM EST LAB[facility]ATORY [facility] POTASSIUM 4.7 3.5 - 5.1 mmol/L 01/19/2024 4:19 AM EST LABORATORY [facility] CHLORIDE 103 98 - 107 mmol/L 01/19/2024 4:19 AM EST LAB[facility]ATORY [facility] CO2 21(L) 22 - 32 mmol/L 01/19/2024 4:19 AM EST LAB[facility]ATORY [facility] ANION GAP 11 7 - 15 mmol/L 01/19/2024 4:19 AM EST LAB[facility]ATORY [facility] GLUCOSE 100 70 - 120 mg/dL 01/19/2024 4:19 AM EST LAB[facility]ATORY [facility] CALCIUM 8.5 8.4 - 10.2 mg/dL 01/19/2024 4:19 AM EST LAB[facility]ATORY [facility] Blood Venous blood specimen / Unknown Venipuncture / Unknown 01/19/2024 3:29 AM EST 01/19/2024 3:49 AM EST Scot Quinteros DO LAB BLOOD ORDERABLES Final Result LABORATORY [facility] [address] [place] [address] * (ABNORMAL) CBC (01/19/2024 3:29 AM EST) WBC 8.44 4.00 - 10.80 K/uL 01/19/2024 3:58 AM EST LABORATORY [facility] RBC 3.28 3.85 - 5.15 M/uL 01/19/2024 3:58 AM EST LABORATORY [facility] HGB 10.4(L) 12.0 - 15.3 g/dL 01/19/2024 3:58 AM EST LABORATORY [facility] HCT 32.0(L) 36.0 - 45.2 % 01/19/2024 3:58 AM EST LAB[facility]ATORY [facility] MCV 97.6 81.5 - 97.5 fL 01/19/2024 3:58 AM EST LAB[facility]ATORY [facility] MCH 31.7 27.0 - 34.0 pg 01/19/2024 3:58 AM EST LAB[facility]ATORY [facility] MCHC 32.5 32.0 - 36.0 g/dL 01/19/2024 3:58 AM EST LABORATORY [facility] RDW 13.2 11.5 - 15.5 % 01/19/2024 3:58 AM EST LABORATORY [facility] PLT 146 140 - 400 K/uL 01/19/2024 3:58 AM EST LABORATORY [facility] MPV 10.8 6.6 - 11.1 fL 01/19/2024 3:58 AM EST LABORATORY [facility] nRBCs 0 <=0 /100 WBCs 01/19/2024 3:58 AM EST LABORATORY [facility] Blood Venous blood specimen / Unknown Venipuncture / Unknown 01/19/2024 3:29 AM EST 01/19/2024 3:49 AM EST Scot Quinteros DO LAB BLOOD ORDERABLES Final Result LABORATORY [facility] [address] [place] [address] * SARS-COV-2 (COVID-19), NAAT (01/19/2024 1:08 AM EST) Pathologist [facility] SARS-CoV-2 (COVID-19) Result Negative Negative 01/19/2024 2:05 AM EST LABORATORY [facility] Comment: 2019 Novel Coronavirus not detected. This express test was developed and its performance characteristics determined by [employer]. It has not been cleared or approved by the U.S. Food and Drug Administration (FDA). FDA does not require this test to go thru premarket FDA review. This test is used for clinical purposes. It should not be regarded as investigational or for research. This laboratory is certified under the Clinical Laboratory Improvement Amendments (CLIA) as qualified to perform high complexity clinical laboratory testing. This test is a nucleic acid amplification test (NAAT), a reverse transcriptase polymerase chain reaction (RT-PCR) test, or a Centers for Disease Control- acceptable equivalent. The test is performed in a high complexity Clinical Laboratory Improvement Amendments-(CLIA) certified laboratory. The test is acceptable for SARS-CoV-2 diagnosis, surveillance, and travel within the [place] and to most countries. Please check with local testing authorities about requirements before travel. The validation of bronchial specimens, tracheal aspirates, and sputum for this assay was developed and performance characteristics determined by [employer]. The validation of alternate specimen types has not been cleared or approved by the U.S. Food and Drug Administration (FDA). It has been determined that such clearance is not necessary. Upper Respiratory Mid-turbinate nasal swab / Unknown Non-blood Collection / Unknown 01/19/2024 1:08 AM EST 01/19/2024 1:20 AM EST Scot David Neli FERRER LAB MICRO - GENERAL ORDERA BLES Final Result Performing Organization Address [facility] de Phone Number LABORATORY [facility] [address] [place] [address] * MRSA SCREEN, PCR (01/19/2024 1:08 AM EST) Pathologist [facility] MRSA PCR Result Negative Negative 2:48 AM EST LABORATORY [facility] Comment:No Methicillin resis tant Staphylococcus aureus detected by PCR (amplified probe). Upper Respiratory Swab of internal nose / Unknown Non-blood Collection / Unknown 01/19/2024 1:08 AM EST 01/19/2024 1:21 AM EST Scot Quinteros DO LAB MICRO - GENERAL ORDERA BLES Final Result Performing Organization Address [facility] Phone Number LABORATORY [facility] [address] [place] [address] * (ABNORMAL) URINALYSIS, REFLEX TO CULTURE (01/19/2024 1:03 AM EST) Pathologist [facility] Color, Urine Light Yellow Colorless, Light Yellow, Yellow, Dark Yellow 01/19/2024 1:56 AM EST LABORATORY [facility] Clarity, Urine Clear Clear 01/19/2024 1:56 AM EST LAB[facility]ATORY [facility] Glucose, Urine Negative Negative mg/dL 01/19/2024 1:56 AM EST LABORATORY [facility] Bilirubin, Urine Negative Negative 01/19/2024 1:56 AM EST LAB[facility]ATORY [facility] Ketone, Urine Negative Negative mg/dL 01/19/2024 1:56 AM EST LABORATORY [facility] Specific [place], Urine 1.033(H) 1.003 - 1.030 01/19/2024 1:56 AM EST LABORATORY [facility] Blood, Urine Small(A) Negative 01/19/2024 1:56 AM EST LAB[facility]ATORY [facility] pH, Urine 6.0 5.0 - 7.5 Units 01/19/2024 1:56 AM EST LAB[facility]ATORY [facility] Protein, Urine Negative Negative mg/dL 01/19/2024 1:56 AM EST LABORATORY [facility] Urobilinogen, Urine Normal Normal mg/dL 01/19/2024 1:56 AM EST LABORATORY [facility] Nitrite, Urine Negative Negative 01/19/2024 1:56 AM EST LABORATORY [facility] Esterase, Urine Negative Negative 01/19/2024 1:56 AM EST LAB[facility]ATORY [facility] RBC, Urine 3-5(A) 0 - 2 /HPF 01/19/2024 1:56 AM EST LAB[facility]ATORY [facility] WBC, Urine 6-9(A) 0 - 2 /HPF 01/19/2024 1:56 AM EST LABORATORY [facility] Bacteria, Urine 0-25 0 - 25 /HPF 01/19/2024 1:56 AM EST LAB[facility]ATORY [facility] Culture, Urine 01/19/2024 1:56 AM EST LABORATORY [facility] Comment:Culture not indicate d by urinalysis results Urine Urine specimen / Unknown Non-blood Collection / Unknown 01/19/2024 1:03 AM EST 01/19/2024 1:19 AM EST Scot Quinteros DO LAB URINE ORDERABLES Final Result Performing Organization Address City/[facility] Co de Phone Number LABORATORY [facility] [address] [place] [address] * URINALYSIS, REFLEX TO CULTURE (CUP ONLY) (01/19/2024 1:03 AM EST) Urinalysis, Reflex to Culture Specimen Specimen collected and received 01/19/2024 3:01 AM EST LABORATORY [facility] Urine Urine specimen / Unknown Non-blood Collection / Unknown 01/19/2024 1:03 AM EST 01/19/2024 1:19 AM EST Scot Quinteros LAB URINE ORDERABLES Final Result Performing Organization Address City/[facility]/ZIP Co de Phone Number LABORATORY [facility] [address] [place] [address] * (ABNORMAL) TOXICOLOGY, URINESCREEN W/O CONFIRMATION (01/19/2024 1:03 AM EST) Amphetamines Screen, U Negative Negative 01/19/2024 1:38 AM EST LABORATORY [facility] Benzodiazepines Screen, U Negative Negative 01/19/2024 1:38 AM EST LABORATORY [facility] Cannabinoids Screen, U Negative Negative 01/19/2024 1:38 AM EST LABORATORY [facility] Cocaine Metabolite Screen, U Negative Negative 01/19/2024 1:38 AM EST LABORATORY [facility] Fentanyl Screen, U Positive(A) Negative 01/18 1:38 AM EST LABORATORY [facility] Hydrocodone Screen, U Negative Negative 01/19/2024 1:38 AM EST LABORATORY [facility] Methadone Metabolite Screen, U Negative Negative 01/19/2024 1:38 AM EST LABORATORY [facility] Morphine/Codeine Screen, U Positive(A) Negative 01/19/2024 1:38 AM EST LABORATORY [facility] Oxycodone Screen, U Negative Negative 01/19/2024 1:38 AM EST LABORATORY [facility] Urine Non-blood Collection / Unknown 01/19/2024 1:03 AM EST 01/19/2024 1:21 AM EST Narrative LABORATORY [facility] - 01/19/2024 1:38 AM EST Cutoff Concentrations: Drug Level Amphetamines 500 ng/mL Benzodiazepines 100 ng/mL Cannabinoids 50 ng/mL Cocaine Metabolite 150 ng/mL Fentanyl 1 ng/mL Hydrocodone / Hydromorphone 300 ng/mL Methadone Metabolite 100 ng/mL Morphine / Codeine 300 ng/mL Oxycodone / Oxymorphone 100 ng/mL Screening results are presumptive and can only be used for medical purposes. Confirmatory testing is available upon request. Scot Quinteros DO LAB URINE ORDERABLES Final Result LABORATORY [facility] [address] [place] [address] * ETHANOL, MEDICAL (01/19/2024 12:53 AM EST) ETHANOL, MEDICAL Negative Negative 01/19/2024 1:15 AM EST LABORATORY [facility] Blood Venous blood specimen / Unknown Venipuncture / Unknown 01/19/2024 12:53 AM EST 01/19/2024 12:59 AM EST Scot Quinteros DO LAB BLOOD ORDERABLES Final Result Performing Organization Address City/[facility]/ZIP Co de Phone Number LABORATORY [facility] [address] [place] [address] * EKG (01/19/2024 12:48 AM EST) 01/19/2024 12:4 8 AM EST Narrative Procedure Note Cris De Leon MD - 01/19/2024 12:48 AM EST REASON FOR STUDY: trn CONCLUSIONS: Normal sinus rhythm When compared with ECG of 27-Jan-2021 09:09, No significant change Ventricular Rate: 90 Atrial Rate: 90 IA Interval: 154 QRS Duration: 68 QT/QTc: 366/447 ms P-R-T [place]: 81 : 0 : 56 degrees Scot Quinteros DO EKG Final Resu lt Performing Organization Address [facility] Co de Phone Number [facility] * CT CHEST/ABDOMEN/PELVIS WITH IV CONTRAST WITHOUT ORAL CONTRAST (01/18/2024 11:48 PM EST) Anatomical Region Laterality Modality Body, Chest, Abdomen, Pelvis, Cardio Computed Tomography 01/19/2024 12:2 3 AM EST Impressions 01/19/2024 12:21 AM EST IMPRESSION 1. Displaced right superior and inferior pubic rami fractures. 2. Minimally displaced right sacral ala fracture with extension to the right sacroiliac joint. No definite sacroiliac joint diastasis. 3. Enlarging ground-glass nodule in the right upper lobe measuring up to 1 centimeter with a 0.5 centimeter solid component. Proceed with a complete chest CT examination for further evaluation as early as possible (Per Fleischner Society guidelines). 4. Extraperitoneal and presacral stranding. No organized fluid collections. 5. Intramuscular hematoma of the medial compartment musculature of the right thigh without evidence of active contrast extravasation. 6. 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 Incompletely evaluated Aorta recommendation: Recommend followup by ultrasound in 1 year. Narrative 01/19/2024 12:21 AM EST EXAM EXAM: CT CHEST/ABDOMEN/PELVIS WITH IV CONTRAST WITHOUT ORAL CONTRAST DATE and TIME: 01/18/2024 11:48 pm HISTORY CLINICAL INFORMATION: pubic rami fracture, sacrum fracture, pelvic hematoma TECHNIQUE Oral Contrast: Oral contrast was not administered. IV Contrast: Intravenous contrast was administered. COMPARISON < CT chest abdomen pelvis 06/27/2023. FINDINGS LINES AND DEVICES: None LUNGS: Upper lobe predominant centrilobular emphysematous changes. Enlarging ground-glass nodule in the right upper lobe measuring up to 1 centimeter with a 0.5 centimeter solid component (series 3, image 26), this previously measured up to 8 millimeters in aggregate with a 4 millimeter solid component on 06/27/2023. Subpleural reticulation adjacent to this nodule in the lateral right upper lobe. Stable linear juxta lobe pleural nodule in the left lower lobe measuring up to 1.2 centimeters (series 3, image 41). Additional juxtapleural ground-glass nodule in the left lower lobe measuring 0.6 centimeters is grossly stable (series 3, image 45). LARGE AIRWAYS: Secretions in the trachea. PLEURA: Unremarkable VESSELS: Moderateatherosclerotic changes in the aorta and coronary arteries. Extensive noncalcified plaque throughout the descending thoracic aorta. Great vessels are normal in caliber. HEART: The heart is enlarged. No pericardial effusion. Aortic valve calcifications. MEDIASTINUM AND JODY: No adenopathy by size criteria. CHEST WALL/SOFT TISSUES: Unremarkable ABDOMEN/PELVIS: LIVER: Unremarkable BILE DUCTS: Dilated common bile duct and diffuse intrahepatic biliary prominence likely related to reservoir effect. GALLBLADDER: Cholecystectomy. PANCREAS: Unremarkable SPLEEN: Atrophic spleen. ADRENALS: Unremarkable KIDNEYS/URETERS: Simple cyst in the left interpolar kidney. Additional subcentimeter hypodensities bilaterally too small to accurately characterize. No renal calculi or hydronephrosis. BLADDER: Stark catheter decompresses the bladder. BOWEL: No obstruction or wall thickening. Colonic diverticulosis. LYMPH NODES: No adenopathy by size criteria. VESSELS: Extensive aortoiliac calcifications. 3.2 centimeter infrarenal abdominal aortic aneurysm. 4 centimeter abdominal aortic aneurysm at the level of the hiatus. 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 Fem-fem bypass graft is patent. REPRODUCTIVE ORGANS: Hysterectomy. PERITONEUM/RETROPERITONEUM: There is extraperitoneal and presacral stranding. No organized fluid collections. ABDOMINAL WALL/SOFT TISSUES: No pneumoperitoneum or ascites. Asymmetric enlargement of the right medial compartment musculature of the thigh likely representing intramuscular hematoma. No evidence of active contrast extravasation. BONES: Displaced right superior and inferior pubic rami fractures. Minimally displaced right sacral ala fracture with extension to the right sacroiliac joint. No definite sacroiliac joint diastasis. Chronic anterior left 4th, 5th and 6th rib fractures. Thoracolumbar spondylosis and bony demineralization. Procedure Note Chapo Oconnor MD - 01/19/2024 EXAM EXAM: CT CHEST/ABDOMEN/PELVIS WITH IV CONTRAST WITHOUT ORAL CONTRAST DATE and TIME: 01/18/2024 11:48 pm HISTORY CLINICAL INFORMATION: pubic rami fracture, sacrum fracture, pelvichematoma TECHNIQUE Oral Contrast: Oral contrast was not administered. IV Contrast: Intravenous contrast was administered. COMPARISON < CT chest abdomen pelvis 06/27/2023. FINDINGS LINES AND DEVICES: None LUNGS: Upper lobe predominant centrilobular emphysematous changes.Enlarging ground-glass nodule in the right upper lobe measuring up to 1centimeter with a 0.5 centimeter solid component (series 3, image 26),this previously measured up to 8 millimeters in aggregate with a 4millimeter solid component on 06/27/2023. Subpleural reticulationadjacent to this nodule in the lateral right upper lobe. Stable linearjuxta lobe pleural nodule in the left lower lobe measuring up to 1.2centimeters (series 3, image 41). Additional juxtapleural ground-glassnodule in the left lower lobe measuring 0.6 centimeters is grossly stable(series 3, image 45). LARGE AIRWAYS: Secretions in the trachea. PLEURA: Unremarkable VESSELS: Moderateatherosclerotic changes in the aorta and coronaryarteries. Extensive noncalcified plaque throughout the descendingthoracic aorta. Great vessels are normal in caliber. HEART: The heart is enlarged. No pericardial effusion. Aortic valvecalcifications. MEDIASTINUM AND JODY: No adenopathy by size criteria. CHEST WALL/SOFT TISSUES: Unremarkable ABDOMEN/PELVIS: LIVER: Unremarkable BILE DUCTS: Dilated common bile duct and diffuse intrahepatic biliaryprominence likely related to reservoir effect. GALLBLADDER: Cholecystectomy. PANCREAS: Unremarkable SPLEEN: Atrophic spleen. ADRENALS: Unremarkable KIDNEYS/URETERS: Simple cyst in the left interpolar kidney. Additionalsubcentimeter hypodensities bilaterally too small to accuratelycharacterize. No renal calculi or hydronephrosis. BLADDER: Stark catheter decompresses the bladder. BOWEL: No obstruction or wall thickening. Colonic diverticulosis. LYMPH NODES: No adenopathy by size criteria. VESSELS: Extensive aortoiliac calcifications. 3.2 centimeter infrarenalabdominal aortic aneurysm. 4 centimeter abdominal aortic aneurysm at thelevel of the hiatus. Moderate stenosis of the proximal SMA high-gradestenosis of the proximal celiac artery. Fem-fem bypass graft is patent. REPRODUCTIVE ORGANS: Hysterectomy. PERITONEUM/RETROPERITONEUM: There is extraperitoneal and presacralstranding. No organized fluid collections. ABDOMINAL WALL/SOFT TISSUES: No pneumoperitoneum or ascites. Asymmetricenlargement of the right medial compartment musculature of the thighlikely representing intramuscular hematoma. No evidence of activecontrast extravasation. BONES: Displaced right superior and inferior pubic rami fractures.Minimally displaced right sacral ala fracture with extension to the rightsacroiliac joint. No definite sacroiliac joint diastasis. Chronicanterior left 4th, 5th and 6th rib fractures. Thoracolumbar spondylosisand bony demineralization. IMPRESSION IMPRESSION 1. Displaced right superior and inferior pubic rami fractures. 2. Minimally displaced right sacral ala fracture with extension to theright sacroiliac joint. No definite sacroiliac joint diastasis. 3. Enlarging ground-glass nodule in the right upper lobe measuring up to 1centimeter with a 0.5 centimeter solid component. Proceed with a completechest CT examination for further evaluation as early as possible (PerFleischner Society guidelines). 4. Extraperitoneal and presacral stranding. No organized fluidcollections. 5. Intramuscular hematoma of the medial compartment musculature of theright thigh without evidence of active contrast extravasation. 6. 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 Incompletelyevaluated Aorta recommendation: Recommend followup by ultrasound in [address] Final Result * DIFFERENTIAL, AUTOMATED (01/18/2024 10:18 PM EST) WBC 10.68 4.00 - 10.80 K/uL 01/18/2024 10:31 PM EST [facility] Neutrophils % 68.2 40.0 - 75.0 % 01/18/2024 10:31 PM EST [facility] Lymphocytes % 23.0 18.0 - 42.0 % 01/18/2024 10:31 PM EST [facility] Monocytes % 7.5 1.0 - 11.0 % 01/18/2024 10:31 PM EST [facility] Eosinophils % 0.3 0.0 - 6.0 % 01/18/2024 10:31 PM EST [facility] Basophils % 0.7 0.0 - 2.0 % 01/18/2024 10:31 PM EST [facility] Immature Granulocytes % 0.3 0.0 - 2.0 % 01/18/2024 10:31 PM EST [facility] Absolute Neutrophils 7.28 1.80 - 7.70 K/uL 01/18/2024 10:31 PM EST [facility] Absolute Lymphocytes 2.46 1.00 - 4.80 K/ul 01/18/2024 10:31 PM EST [facility] Absolute Monocytes 0.80 0.00 - 1.10 K/uL 01/18/2024 10:31 PM EST [facility] Absolute Eosinophils 0.03 0.00 - 0.70 K/uL 01/18/2024 10:31 PM EST [facility] Absolute Basophils 0.08 0.00 - 0.20 K/uL 01/18/2024 10:31 PM EST [facility] Absolute Immature Granulocytes 0.03 0.00 - 0.20 K/uL 01/18/2024 10:31 PM EST [facility] Blood Venous blood specimen / Unknown Venipuncture / Unknown 01/18/2024 10:18 PM EST 01/18/2024 10:23 PM EST us Rey Spicer DO LAB BLOOD ORDERABLES Final Resul t LAB[facility]AT[facility] [address] [place] [address] * (ABNORMAL) CBC (01/18/2024 10:18 PM EST) WBC 10.68 4.00 - 10.80 K/uL 01/18/2024 10:31 PM EST [facility] RBC 3.47 3.85 - 5.15 M/uL 01/18/2024 10:31 PM EST [facility] HGB 11.1(L) 12.0 - 15.3 g/dL 01/18/2024 10:31 PM EST [facility] HCT 33.8(L) 36.0 - 45.2 % 01/18/2024 10:31 PM EST [facility] MCV 97.4 81.5 - 97.5 fL 01/18/2024 10:31 PM EST [facility] MCH 32.0 27.0 - 34.0 pg 01/18/2024 10:31 PM EST [facility] MCHC 32.8 32.0 - 36.0 g/dL 01/18/2024 10:31 PM EST [facility] RDW 13.2 11.5 - 15.5 % 01/18/2024 10:31 PM EST [facility] PLT 145 140 - 400 K/uL 01/18/2024 10:31 PM EST [facility] MPV 9.9 6.6 - 11.1 fL 01/18/2024 10:31 PM EST [facility] nRBCs 0 <=0 /100 WBCs 01/18/2024 10:31 PM EST [facility] Blood Venous blood specimen / Unknown Venipuncture / Unknown 01/18/2024 10:18 PM EST 01/18/2024 10:23 PM EST us Rey Spicer DO LAB BLOOD ORDERABLES Final Resul t Performing Organization Address City/State/[facility] Co de Phone Number [facility]ORY [facility] [address] [place] [address] * TYPE AND SCREEN (01/18/2024 10:18 PM EST) ABO A 01/18/2024 11:00 PM EST [facility] BLOOD BANK Rh Positive 01/18/2024 11:00 PM EST LAB[facility] BLOOD B[facility] Red Blood Cell Antibody Screen Negative 01/18/2024 11:00 PM EST LAB[facility]ORY [facility] BLOOD B[facility] Specimen Expiration Date 01/21/2024 23:59 01/18/2024 11:00 PM EST LAB[facility] BLOOD [facility] Blood Venous blood specimen / Unknown Venipuncture / Unknown 01/18/2024 10:18 PM EST 01/18/2024 10:23 PM EST Rey Spicer LAB BLOOD BANK TEST ORDERABLES F inal Result Performing Organization Address City/[facility]/ZIP Co de Phone Number LABORATORY [facility] BLOOD BANK [address] [place] [address] * LACTATE (01/18/2024 10:18 PM EST) Lactate 1.0 0.4 - 2.0 mmol/L 01/18/2024 10:49 PM EST LAB[facility]ORY [facility] Blood Venous blood specimen / Unknown Venipuncture / Unknown 01/18/2024 10:18 PM EST 01/18/2024 10:23 PM EST Rey Spicer LAB BLOOD ORDERABLES Final Resul t Performing Organization Address [facility] de Phone Number LABORATORY [facility] [address] [place] [address] * (ABNORMAL) BASIC METABOLIC PANEL (01/18/2024 10:18 PM EST) BUN 25(H) 6 - 20 mg/dL 01/18/2024 10:41 PM EST [facility] CREATININE 1.5(H) 0.5 - 1.0 mg/dL 01/18/2024 10:41 PM EST [facility] EGFR 35(L) >=60 mL/min 01/18/2024 10:41 PM EST [facility] Comment:eGFR is calculated b ased on the CKD-EPI 2020 equation. SODIUM 134(L) 135 - 146 mmol/L 01/18/2024 10:41 PM EST [facility] POTASSIUM 4.9 3.5 - 5.1 mmol/L 01/18/2024 10:41 PM EST [facility] CHLORIDE 103 98 - 107 mmol/L 01/18/2024 10:41 PM EST [facility] CO2 22 22 - 32 mmol/L 01/18/2024 10:41 PM EST [facility] ANION GAP 9 7 - 15 mmol/L 01/18/2024 10:41 PM EST [facility] GLUCOSE 110 70 - 120 mg/dL 01/18/2024 10:41 PM EST [facility] CALCIUM 8.9 8.4 - 10.2 mg/dL 01/18/2024 10:41 PM EST [facility] Blood Venous blood specimen / Unknown Venipuncture / Unknown 01/18/2024 10:18 PM EST 01/18/2024 10:23 PM EST us Rey Spicer DO LAB BLOOD ORDERABLES Final Resul t Performing Organization Address City/[facility]/ZIP Co de Phone Number LABORATORY [facility] [address] [place] [address] * AST (01/18/2024 10:18 PM EST) AST 16 10 - 35 U/L 01/18/2024 10:41 PM EST [facility] Blood Venous blood specimen / Unknown Venipuncture / Unknown 01/18/2024 10:18 PM EST 01/18/2024 10:23 PM EST us Rey Spicer DO LAB BLOOD ORDERABLES Final Resul t Performing Organization Address [facility] de Phone Number LABORATORY [facility] [address] [place] [address] * APTT (01/18/2024 10:18 PM EST) aPTT 30 21 - 38 seconds 01/18/2024 10:46 PM EST [facility] Blood Venous blood specimen / Unknown Venipuncture / Unknown 01/18/2024 10:18 PM EST 01/18/2024 10:23 PM EST Narrative [facility] - 01/18/2024 10:46 PM EST Anticoagulation may affect testing. Refer to [employer] Test Catalog for a list of effects. us Rey Spicer DO LAB BLOOD ORDERABLES Final Resul t Performing Organization Address City/[facility]/ZIP Co de Phone Number LABORATORY [facility] [address] [place] [address] * PT INR (01/18/2024 10:18 PM EST) Prothrombin Time 14.5 11.6 - 15.2 seconds 01/18/2024 10:46 PM EST LAB[facility] INR 1.1 0.8 - 1.2 01/18/2024 10:46 PM EST [facility] Blood Venous blood specimen / Unknown Venipuncture / Unknown 01/18/2024 10:18 PM EST 01/18/2024 10:23 PM EST Narrative LAB[facility]AT[facility] - 01/18/2024 10:46 PM EST Warfarin Therapy INR: 2.0-3.0 conventional anticoagulation INR: 2.5-3.5 high intensity anticoagulation Rey Spicer DO LAB BLOOD ORDERABLES Final Resul t LABORATORY [facility] [address] [place] [address] documented in this encounter Visit Diagnoses Diagnosis Fall- Primary Unspecified fall Fall Unspecified fall Pulmonary nodules Other nonspecific abnormal finding of lung field Closed fracture of multiple pubic rami, right, initial encounter (HCC) Sacral fracture (HCC) Closed fracture of sacrum and coccyx without mention of spinal cord injury Hematoma of right thigh Pulmonary nodules Other nonspecific abnormal finding of lung field documented in this encounter Administered Medications Inactive Administered Medications - up to 3 most recent administrations Medication Order MAR Action Action Date Dose Rate Site Acetaminophen (Tylenol) tab 650 mg 650 mg, Oral, Q6H, First dose on 01/19/24 at 0115, Last dose on Bina 01/23/24 at 1800, For 5 days, Maximum 4 g acetaminophen/day. Avoid in patients with severe hepatic impairment or severe active liver disease. Use for 5 days. Given 01/23/2024 6:20 PM EST 650 mg Given 01/23/2024 12:27 PM EST 650 mg Given 01/23/2024 6:59 AM EST 650 mg Acetaminophen (Tylenol) tab 650 mg 650 mg, Oral, Q6H, First dose (after last modification) on 01/26/24 at 0800, Until Discontinued, Maximum of 4 grams (4000 mg) per day. Given 01/28/2024 12:00 PM EST 650 mg Given 01/28/2024 5:27 AM EST 650 mg Given 01/28/2024 12:27 AM EST 975 mg Albuterol Sulfate (Proventil) (2.5 MG/3ML) 0.083% inhalation solution 2.5 mg 2.5 mg, Nebulizer, Q4H PRN Dyspnea, Starting on Sat01/19/24 at 0317, Until Sat01/28/24 at 1749 aspirin chew tab 81 mg 81 mg, Oral, Daily(AM), First dose on Sat01/23/24 at 1115, Until Discontinued Given 01/28/2024 8:58 AM EST 81 mg Given 01/27/2024 8:07 AM EST 81 mg Given 01/26/2024 8:26 AM EST 81 mg Carisoprodol (Soma) tab 175 mg 175 mg, Oral, Q6H PRN Muscle spasms, Starting on Sat01/19/24 at 0034, Until Sat01/28/24 at 1749 Given 01/28/2024 5:27 AM EST 175 mg Given 01/25/2024 11:16 PM EST 175 mg Given 01/25/2024 7:55 AM EST 175 mg cefTRIAXone in dextrose (Rocephin) IVPB 1 g IV Piggyback, 1 g, ONCE, 1 dose, On Sat01/23/24 at 0830, Administer over 30 Minutes New Bag 01/23/2024 8:40 AM EST 1 g 100 mL/hr Cephalexin (Keflex) cap 500 mg 500 mg, Oral, Q8H, First dose on Sat01/24/24 at 0600, Last dose on Sat01/30/24 at 2200, For 7 days Given 01/28/2024 5:30 AM EST 500 mg Given 01/27/2024 10:19 PM EST 500 mg Given 01/27/2024 1:22 PM EST 500 mg Docusate Sodium (Colace) cap 100 mg 100 mg, Oral, BID (.AM/PM), First dose on Sat01/19/24 at 0900, Until Discontinued, For oral administration ONLY, if route of administration is other than oral and alternative product must be ordered. Given 01/21/2024 7:51 AM EST 100 mg Given 01/20/2024 8:58 PM EST 100 mg Given 01/20/2024 7:58 AM EST 100 mg Enoxaparin (Lovenox) inj 20 mg 20 mg, Subcutaneous, [id number], First dose on 01/19/24 at 0600, Until Discontinued, If patient is on warfarin, inform provider if daily INR value is 2 or greater! Given 01/28/2024 5:42 AM EST 20 mg Abdom en Left Upper Given 01/27/2024 6:06 AM EST 20 mg Ab domen Right Lower Given 01/26/2024 5:56 AM EST 20 mg Ab domen Left Lower fentaNYL (PF) inj 25 mcg 25 mcg, Intravenous, ONCE, On 01/18/24 at 2300, For 1 dose, When given IV Push its recommended that the dose be given over 3 to 5 minutes. Given 01/18/2024 10:39 PM EST 25 mcg fentaNYL (PF) inj 25 mcg 25 mcg, Intravenous, ONCE, On 01/19/24 at 0030, For 1 dose, When given IV Push its recommended that the dose be given over 3 to 5 minutes. Given 01/19/2024 12:00 AM EST 25 mcg Iopamidol (Isovue 370) inj 80 mL 80 mL, Intravenous, ONCE, On 01/19/24 at 0030, For 1 dose, Radiology Medication Routing (Non-IR) Given 01/19/2024 12:30 AM EST 80 mL LiquaCel 30 mL, Oral, BID (.AM/PM), First dose on Sat01/20/24 at 0900, Until Discontinued Given 01/21/2024 7:51 AM EST 30 mL Given 01/20/2024 8:58 PM EST 30 mL Given 01/20/2024 7:58 AM EST 30 mL NSS 0.9% 500 mL bolus infusion Intravenous, at 500 mL/hr Administer over 60 Minutes, Administer entire volume within 60 minutes or less., ONCE, 1 dose, On Sat01/20/24 at 1600 New Bag 01/20/2024 4:26 PM EST 500 mL 500 mL/hr NSS 0.9% 500 mL bolus infusion Intravenous, at 500 mL/hr Administer over 60 Minutes, Administer entire volume within 60 minutes or less., ONCE, 1 dose, On Sat01/21/24 at 0645 New Bag 01/21/2024 6:49 AM EST 500 mL 500 mL/hr NSS infusion Intravenous, at 100 mL/hr, CONTINUOUS, Starting on 01/18/24 at 2315, Until 01/19/24 at 0813 New Bag 01/18/2024 11:05 PM EST 100 mL/hr ondansetron (Zofran) inj 4 mg 4 mg, IV Push, Q6H PRN Other, May use for nausea or vomiting if patient unable to take oral ondansetron, Starting on Sat01/19/24 at 0034, Until Sat01/28/24 at 1749 Given 01/21/2024 5:01 AM EST 4 mg ondansetron ODT (Zofran) tab 4 mg 4 mg, On Tongue, Q6H PRN Nausea, Vomiting, Starting on Sat01/19/24 at 0034, Until Sat01/28/24 at 1749 oxyCODONE (Oxy IR) tab 5 mg 5 mg, Oral, Q4H PRN Pain, Severe, Starting on Sat01/19/24 at 0850, Until Sat01/28/24 at 1749 Given 01/28/2024 12:03 PM EST 5 mg Given 01/28/2024 3:20 AM EST 5 mg Given 01/27/2024 10:32 PM EST 5 mg oxyCODONE (Roxicodone) oral syrup 2.5 mg 2.5 mg, Oral, Q4H PRN Pain, Moderate, Starting on 01/19/24 at 0849, Until Sat01/28/24 at 1749 oxygen GAS Inhalation, OXYGEN, First dose on Bina 01/23/24 at 0800, Until Discontinued, Device/Managed by: Low Flow Device, Goal SPO2 (%): 91-95, Starting Device: Nasal Cannula, Initial Flow Rate (LPM): 2, Lowest Support: Nasal Cannula: Flow 0-6 LPM. Titrate up/down by 1 LPM., Titration Interval: Q2 minutes and as needed., Notify Provider: For sudden DECREASE in resting SPO2 to less than 85% and when escalating delivery device., Wean patient off Oxygen when the oxygen saturation is greater than or equal to 91% Oxygen On 01/28/2024 12:00 AM EST Oxygen On 01/27/2024 4:00 PM EST Oxygen On 01/27/2024 8:00 AM EST Polyethylene Glycol 3350 (Miralax) oral powder 17 g 17 g (1 Packet), Oral, Daily(AM), First dose on 01/20/24 at 0900, Until Discontinued, Mix in 8 oz of water, juice, soda, coffee, or tea. Given 01/21/2024 7:51 AM EST 17 g Given 01/20/2024 7:57 AM EST 17 g senna (Senokot) 2 Tablet 2 Tablet, Oral, Daily(AM), First dose on 01/19/24 at 0900, Until Discontinued, hold if patient have loose stool or frequent bowel movements Given 01/21/2024 7:50 AM EST 2 Tablets Given 01/20/2024 7:58 AM EST 2 Tablets Given 01/19/2024 8:27 AM EST 2 Tablets Simvastatin (Zocor) tab 20 mg 20 mg, Oral, [id number], First dose on 01/20/24 at 1700, Until Discontinued Given 01/27/2024 4:20 PM EST 20 mg Given 01/26/2024 5:52 PM EST 20 mg Given 01/25/2024 5:03 PM EST 20 mg TRAUMA enoxaparin per pharmacy order Routine, Enoxaparin ordered for VTE prophylaxis for a TRAUMA patient. Follow appropriate dosing schedule and monitoring as directed by the [facility] Trauma VTE Prophylaxis guidelines. Nursing - no documentation of admin or addressed is required on this order! umeclidinium Excelsior (INCRUSE ellipta) 62.5 MCG/ACT inhaler 1 Puff 1 Puff, Inhalation, RESPDAILY, First dose on 01/19/24 at 1000, Until Discontinued, NURSING TO FOLLOW PATIENT WITH MDI/DPI ADMINISTRATION Given 01/28/2024 8:59 AM EST 1 Puff Given 01/27/2024 8:07 AM EST 1 Puff Given 01/26/2024 8:27 AM EST 1 Puff documented in this encounter Active and Recently Administered Medications Times are shown in EST. Scheduled Medication Order 01/26/2024 01/27/2024 01/28/2024 Acetaminophen (Tylenol) tab 650 mg 650 mg, Oral, Q6H, First dose (after last modification) on 01/26/24 at 0800, Until Discontinued, Maximum of 4 grams (4000 mg) per day. 0826 (Given - Provider: Saumya Gandhi RN)1324 (Given - Provider: Saumya Gandhi RN)1752 (Given - Provider: Saumya Gandhi RN)2339 (Given - Provider: Dayana Prince RN) 0605 (Given - Provider: Dayana Prince RN)1322 (Given - Provider: Le Monsalve RN)1707 (Given - Provider: Le Monsalve RN) 0027 (Given - Provider: Anastasia Lang RN)0527 (Given - Provider: Anastasia Lnag RN)1200 (Given - Provider: Leona Cohen RN) aspirin chew tab 81 mg 81 mg, Oral, Daily(AM), First dose on Sat01/23/24 at 1115, Until Discontinued 0826 (Given - Provider: Saumya Gandhi RN) 0807 (Given - Provider: Le Monsalve RN) 0858 (Given - Provider: Leona Cohen RN) Cephalexin (Keflex) cap 500 mg 500 mg, Oral, Q8H, First dose on Sat01/24/24 at 0600, Last dose on Sat01/30/24 at 2200, For 7 days 0556 (Given - Provider: Dayana Prince RN)1324 (Given - Provider: Saumya Gandhi RN)2107 (Given - Provider: Dayana Prince RN) 0605 (Given - Provider: Dayana Prince RN)1322 (Given - Provider: Le Monsalve RN)2219 (Given - Provider: Flako Iglesias RN) 0530 (Given - Provider: Anastasia Lang RN) Docusate Sodium (Colace) cap 100 mg 100 mg, Oral, BID (.AM/PM), First dose on Sat01/19/24 at 0900, Until Discontinued, For oral administration ONLY, if route of administration is other than oral and alternative product must be ordered. 0900 (Not Given - Provider: Saumya Gandhi RN - Reason: Refused-Notify Provider - Comment: sridevi Major aware)2100 (Not Given - Provider: Dayana Prince RN - Reason: Refused-Notify Provider - Comment: Olimpia Bautista aware) 0900 (Not Given - Provider: Le Monsalve RN - Reason: Refused-Notify Provider - Comment: Haylie BOSS notified)2219 (Not Given - Provider: Flako Iglesias RN - Reason: Parameter(s) Not Met - Comment: Eric Ortiz notified) 0858 (Not Given - Provider: Leona Cohen RN - Reason: Refused-Notify Provider) Enoxaparin (Lovenox) inj 20 mg 20 mg, Subcutaneous, [id number], First dose on 01/19/24 at 0600, Until Discontinued, If patient is on warfarin, inform provider if daily INR value is 2 or greater! 0556 (Given - Provider: Dayana Prince RN) 0606 (Given - Provider: Dayana Prince RN) 0542 (Given - Provider: Anastasia Lang RN) oxygen GAS Inhalation, OXYGEN, First dose on Bina 01/23/24 at 0800, Until Discontinued, Device/Managed by: Low Flow Device, Goal SPO2 (%): 91-95, Starting Device: Nasal Cannula, Initial Flow Rate (LPM): 2, Lowest Support: Nasal Cannula: Flow 0-6 LPM. Titrate up/down by 1 LPM., Titration Interval: Q2 minutes and as needed., Notify Provider: For sudden DECREASE in resting SPO2 to less than 85% and when escalating delivery device., Wean patient off Oxygen when the oxygen saturation is greater than or equal to 91% 0000 (Oxygen On - Provider: Dayana Prince RN)0800 (Oxygen On - Provider: Saumya Gandhi RN)1600 (Oxygen On - Provider: Saumya Gandhi RN) 0000 (Oxygen On - Provider: Dayana Prince RN)0800 (Oxygen On - Provider: Le Monsalve RN)1600 (Oxygen On - Provider: Le Monsalve RN) 0000 (Oxygen On - Provider: Anastasia Lang RN)0800 (Oxygen Off - Provider: Leona Cohen RN) Polyethylene Glycol 3350 (Miralax) oral powder 17 g 17 g (1 Packet), Oral, Daily(AM), First dose on 01/20/24 at 0900, Until Discontinued, Mix in 8 oz of water, juice, soda, coffee, or tea. 0900 (Not Given - Provider: Saumya Gandhi RN - Reason: Refused-Notify Provider - Comment: sridevi Major aware) 0900 (Not Given - Provider: Le Monsalve RN - Reason: Refused-Notify Provider) 0858 (Not Given - Provider: Leona Cohen RN - Reason: Refused-Notify Provider) senna (Senokot) 2 Tablet 2 Tablet, Oral, Daily(AM), First dose on Sat01/19/24 at 0900, Until Discontinued, hold if patient have loose stool or frequent bowel movements 0900 (Not Given - Provider: Saumya Gandhi RN - Reason: Refused-Notify Provider - Comment: sridevi Major aware) 0900 (Not Given - Provider: Le Monsalve RN - Reason: Refused-Notify Provider - Comment: Haylie BOSS notified) 0858 (Not Given - Provider: Leona Cohen RN - Reason: Refused-Notify Provider) Simvastatin (Zocor) tab 20 mg 20 mg, Oral, [id number], First dose on Sat01/20/24 at 1700, Until Discontinued 1752 (Given - Provider: Saumya Gandhi RN) 1620 (Given - Provider: Le Monsalve RN) TRAUMA enoxaparin per pharmacy order Routine, Enoxaparin ordered for VTE prophylaxis for a TRAUMA patient. Follow appropriate dosing schedule and monitoring as [facility] Prophylaxis guidelines. Nursing - no documentation of admin or addressed is required on this order! umeclidinium Excelsior (INCRUSE ellipta) 62.5 MCG/ACT inhaler 1 Puff 1 Puff, Inhalation, RESPDAILY, First dose on Sat01/19/24 at 1000, Until Discontinued, NURSING TO FOLLOW PATIENT WITH MDI/DPI ADMINISTRATION 0827 (Given - Provider: Saumya Gandhi RN) 0807 (Given - Provider: Le Monsalve RN) 0859 (Given - Provider: Leona Cohen RN) PRN Medication Order 01/26/2024 01/27/2024 01/28/2024 Albuterol Sulfate (Proventil) (2.5 MG/3ML) 0.083% inhalation solution 2.5 mg 2.5 mg, Nebulizer, Q4H PRN Dyspnea, Starting on Sat01/19/24 at 0317, Until Sat01/28/24 at 1749 Carisoprodol (Soma) tab 175 mg 175 mg, Oral, Q6H PRN Muscle spasms, Starting on Sat01/19/24 at 0034, Until Sat01/28/24 at 1749 0527 (Given - Provider: Anastasia Lang, THELMA) ondansetron (Zofran) inj 4 mg(Linked Group 1) 4 mg, IV Push, Q6H PRN Other, May use for nausea or vomiting if patient unable to take oral ondansetron, Starting on Sat01/19/24 at 0034, Until Sat01/28/24 at 1749 ondansetron ODT (Zofran) tab 4 mg(Linked Group 1) 4 mg, On Tongue, Q6H PRN Nausea, Vomiting, Starting on Sat01/19/24 at 0034, Until Sat01/28/24 at 1749 oxyCODONE (Oxy IR) tab 5 mg 5 mg, Oral, Q4H PRN Pain, Severe, Starting on Sat01/19/24 at 0850, Until Sat01/28/24 at 1749 0112 (Given - Provider: Dayana Prince RN)0649 (Given - Provider: Ina Finney RN)1553 (Given - Provider: Saumya Gandhi RN) 0606 (Given - Provider: Dayana Prince RN)1049 (Given - Provider: Le Monsalve, THELMA)1620 (Given - Provider: Le Monsalve, THELMA)2232 (Given - Provider: Flako Iglesias RN) 0320 (Given - Provider: Anastasia Lang RN)1203 (Given - Provider: Leona Cohen RN) oxyCODONE (Roxicodone) oral syrup 2.5 mg 2.5 mg, Oral, Q4H PRN Pain, Moderate, Starting on Sat01/19/24 at 0849, Until Sat01/28/24 at 1749 Linked Groups Order Group 1: ondansetron ODT (Zofran) tab 4 mgJump to med 4 mg, On Tongue, Q6H PRN Nausea, Vomiting, Starting on 01/19/24 at 0034, Until Sat01/28/24 at 1749 Or ondansetron (Zofran) inj 4 mgJump to med 4 mg, IV Push, Q6H PRN Other, May use for nausea or vomiting if patient unable to take oral ondansetron, Starting on 01/19/24 at 0034, Until Sat01/28/24 at 1749 documented in this encounter Advance Directives * [...] and were consensually agreed upon. Care Teams Division Chair Relationship Specialty Start Date End Date Maria G Rendon DO [address] [place], [place] [address] PCP - General Family Medicine 11/03/20 documented as of this encounter
--- OUTSIDE RECORDS SUMMARY | 2024-04-10 03:23 | External Medical Summary | Continuity Of Care Document ---
Author Name Unknown Address [address] [address] Organization [facility] () Care Team Providers Care Soldering Technician Name Role Phone DO Alonso Amy Primary Care Provider [phone] Allergies Allergy Reaction Start Date End Date [...] Day 3 0.1 mL 01/29 Active 2023 15455 24893 0 1 time Intrad ermal False Tubersol 5 tub. unit/0.1 mL intradermal injection solution [Tuberculin PPD] 0.1mL Intradermal 1 time For PPD 2nd Step Give 2nd Step PPD Day 1 and Read results Day 3 (schedule 7 days after 1st READ) 0.1mL 02/07 Active 2023 68599 98268 0 1 time Intrad ermal False Oxycodone 5 mg tablet [generic] 5mg By Mouth Every 4 hours as needed for severe pain for pain rate 7-10. For right pubis fracture 5mg 01/27 Inactiv e 2023 88764 22262 1 Every 4 hours as needed By Mouth False OXYCODONE 5 MG TABLET [GENERIC]IM MEDIATE RELEASE 2.5mg By Mouth Every 4 hours as needed tablet po for moderate pain, pain rate 4-6 on pain scale 1-10. For pain 2.5mg 01/27 Inactiv e 2023 Every 4 hours as needed By Mouth False Oxycodone 5 mg tablet [generic] 01/27 Inactiv e 2023 95618 29592 1 Oxycodone 5 mg tablet [generic] 5mg By Mouth Every 4 hours as needed for severe pain for pain rate 7-10. For right pubis fracture 5mg 2023 Active 2023 01437 92463 1 Every 4 hours as needed By [...] For Muscle spasms 175mg 2023 Active 2023 48443 98332 1 Every 6 hours as needed By Mouth False Cephalexin 500 mg capsule [generic] 500mg By Mouth Every 8 hours For UTI 500mg 01/30 Active 2023 40076 88215 1 Every 8 hours By Mouth False Aspirin 81 mg chewable tablet [generic] 81 mg By Mouth Once daily For AAA 81 mg 2023 Active 2023 33129 24290 6 Once daily By Mouth False Colace 100 mg capsule 100mg By Mouth Twice daily For constipation 100mg 2023 Active 2023 77371 15453 1 Twice daily By Mouth False Enoxaparin 300 mg/3 mL subcutaneou s solution [generic] 20mg Subcutaneous Once daily For anticoag. 20mg 2023 Active 2023 43417 67069 1 Once daily Subcut aneous False Losartan 50 mg tablet [generic] 50 By Mouth Once daily For HTN 50 2023 Active 2023 23628 22750 9 Once daily By Mouth False Miralax 17 gram/dose oral powder 17 gram By Mouth Once daily For contispation 17 gram 2023 Active 2023 72690 76478 0 Once daily By Mouth False Senna 8.6 mg tablet 2 tabs By Mouth Once daily For constipation 2 tabs 2023 Active 2023 45607 13160 1 Once daily By Mouth False Simvastatin 20 mg tablet [generic] 20 mg By Mouth Once daily For Hyperlipidemi a 20 mg 2023 Active 2023 90855 69561 0 Once daily By Mouth False Spiriva with HandiHaler 18 mcg and inhalation capsules 1 capsule Inhalation Once daily For COPD 1 capsule 2023 Active 2023 12567 23933 1 Once daily Inhala tion False Ventolin HFA 90 mcg/actuati on aerosol inhaler 2 puff Inhalation Every 4 hours as needed For COPD 2 puff 2023 Active 2023 34636 01047 0 Every 4 hours as needed Inhala tion False ProSource No Carb 15 gram-60 kcal/30 mL oral liquid 30ml By Mouth Twice daily For Protien supplement 30ml 2023 Active 2023 80861 04684 5 Twice daily By Mouth False Albuterol sulfate 2.5 mg/3 mL (0.083 %) solution for nebulizatio n [generic] 3 ml Inhalation Every 6 hours as needed For wheezing 3 ml 2023 Active 2023 40183 95438 3 Every 6 hours as needed Inhala tion False Acetaminoph en 325 mg tablet [generic] 650 mg By Mouth Every 6 hours For Mild Pain 650 mg 2023 Active 2023 50438 11078 0 Every 6 hours By Mouth False Tylenol 325 mg tablet 2 tabs By Mouth Every 4 hours as needed For Pain DO NOT EXCEED 3000 MG APAP/24 Hours 2 tabs 2023 Active 2023 65032 52342 0 Every 4 hours as needed By Mouth False Tylenol 325 mg tablet 2 tabs By Mouth Every 4 hours as needed For Fever >100 DO NOT EXCEED 3000 MG APAP/24 Hours 2 tabs 2023 Active 2023 31141 43733 0 Every 4 hours as needed By Mouth False Dulcolax (bisacodyl) 10 mg rectal suppository One Suppository per rectum PRN if Milk of Magnisia ineffective. Give on day 5 of no BM 1 sup 2023 Active 2023 46196 87638 1 Daily as needed Rectal False Fleet Enema 19 gram-7 gram/118 mL Administer per rectum PRN one time if dulcolax suppository not effective. Give on day 6 of no BM 1 2023 Active 2023 73013 49215 6 Daily as needed Rectal False Milk of Magnesia 400 mg/5 mL oral suspension [Magnesium hydroxide] PRN 30ml By Mouth Daily as needed for constipation one time daily if no BM, on day 4 of no BM (PRN refer to instructions) For Constipation 30 mL 2023 Active 2023 27835 26914 6 Daily as needed By Mouth False [...] Temperature SpO2 Blood Sugar Pulse Respirations 210 91716 7 78.00 mm[Hg] - Lying Down 186.00 mm[Hg] - Lying Down 109.80 NI 97.90 Forehead Scan 91.00 % 92.00/ min 18.00/min 210 10357 1 74.00 mm[Hg] - Lying Down 147.00 mm[Hg] - Lying Down 85.00/ min 211 59060 2 72.00 mm[Hg] - Sitting 138.00 mm[Hg] - Sitting 98.40 Tympanic 86.00/ min 18.00/min 211 71043 5 69.00 mm[Hg] - Sitting 145.00 mm[Hg] - Sitting 211 82119 9 69.00 mm[Hg] - Sitting 145.00 mm[Hg] - Sitting 211 03716 5 69.00 mm[Hg] - Sitting 145.00 mm[Hg] - Sitting 211 66391 6 69.00 mm[Hg] - Sitting
--- OUTSIDE RECORDS SUMMARY | 2024-04-10 03:23 | External Medical Summary | Continuity Of Care Document ---
Author Name Unknown Address [address] [address] Organization [facility] () Care Team Providers Care Buggy Driver Name Role Phone DO Alonso Amy Primary Care Provider [phone] Allergies Allergy Reaction Start Date End Date [...] Day 3 0.1 mL 01/29 Active 2023 67104 54320 0 1 time Intrad ermal False Tubersol 5 tub. unit/0.1 mL intradermal injection solution [Tuberculin PPD] 0.1mL Intradermal 1 time For PPD 2nd Step Give 2nd Step PPD Day 1 and Read results Day 3 (schedule 7 days after 1st READ) 0.1mL 02/07 Active 2023 53762 54332 0 1 time Intrad ermal False Oxycodone 5 mg tablet [generic] 5mg By Mouth Every 4 hours as needed for severe pain for pain rate 7-10. For right pubis fracture 5mg 01/27 Inactiv e 2023 39189 77498 1 Every 4 hours as needed By Mouth False OXYCODONE 5 MG TABLET [GENERIC]IM MEDIATE RELEASE 2.5mg By Mouth Every 4 hours as needed tablet po for moderate pain, pain rate 4-6 on pain scale 1-10. For pain 2.5mg 01/27 Inactiv e 2023 Every 4 hours as needed By Mouth False Oxycodone 5 mg tablet [generic] 01/27 Inactiv e 2023 02767 32795 1 Oxycodone 5 mg tablet [generic] 5mg By Mouth Every 4 hours as needed for severe pain for pain rate 7-10. For right pubis fracture 5mg 2023 Active 2023 02006 12239 1 Every 4 hours as needed By [...] For Muscle spasms 175mg 2023 Active 2023 40062 62641 1 Every 6 hours as needed By Mouth False Cephalexin 500 mg capsule [generic] 500mg By Mouth Every 8 hours For UTI 500mg 01/30 Active 2023 60614 94099 1 Every 8 hours By Mouth False Aspirin 81 mg chewable tablet [generic] 81 mg By Mouth Once daily For AAA 81 mg 2023 Active 2023 74714 17947 6 Once daily By Mouth False Colace 100 mg capsule 100mg By Mouth Twice daily For constipation 100mg 2023 Active 2023 38444 58536 1 Twice daily By Mouth False Enoxaparin 300 mg/3 mL subcutaneou s solution [generic] 20mg Subcutaneous Once daily For anticoag. 20mg 2023 Active 2023 75037 95689 1 Once daily Subcut aneous False Losartan 50 mg tablet [generic] 50 By Mouth Once daily For HTN 50 2023 Active 2023 82274 95738 9 Once daily By Mouth False Miralax 17 gram/dose oral powder 17 gram By Mouth Once daily For contispation 17 gram 2023 Active 2023 21745 85180 0 Once daily By Mouth False Senna 8.6 mg tablet 2 tabs By Mouth Once daily For constipation 2 tabs 2023 Active 2023 66311 26404 1 Once daily By Mouth False Simvastatin 20 mg tablet [generic] 20 mg By Mouth Once daily For Hyperlipidemi a 20 mg 2023 Active 2023 75379 86859 0 Once daily By Mouth False Spiriva with HandiHaler 18 mcg and inhalation capsules 1 capsule Inhalation Once daily For COPD 1 capsule 2023 Active 2023 04286 21655 1 Once daily Inhala tion False Ventolin HFA 90 mcg/actuati on aerosol inhaler 2 puff Inhalation Every 4 hours as needed For COPD 2 puff 2023 Active 2023 01530 63899 0 Every 4 hours as needed Inhala tion False ProSource No Carb 15 gram-60 kcal/30 mL oral liquid 30ml By Mouth Twice daily For Protien supplement 30ml 2023 Active 2023 31710 36151 5 Twice daily By Mouth False Albuterol sulfate 2.5 mg/3 mL (0.083 %) solution for nebulizatio n [generic] 3 ml Inhalation Every 6 hours as needed For wheezing 3 ml 2023 Active 2023 67487 44018 3 Every 6 hours as needed Inhala tion False Acetaminoph en 325 mg tablet [generic] 650 mg By Mouth Every 6 hours For Mild Pain 650 mg 2023 Active 2023 63122 95640 0 Every 6 hours By Mouth False Tylenol 325 mg tablet 2 tabs By Mouth Every 4 hours as needed For Pain DO NOT EXCEED 3000 MG APAP/24 Hours 2 tabs 2023 Active 2023 20707 56760 0 Every 4 hours as needed By Mouth False Tylenol 325 mg tablet 2 tabs By Mouth Every 4 hours as needed For Fever >100 DO NOT EXCEED 3000 MG APAP/24 Hours 2 tabs 2023 Active 2023 38984 74272 0 Every 4 hours as needed By Mouth False Dulcolax (bisacodyl) 10 mg rectal suppository One Suppository per rectum PRN if Milk of Magnisia ineffective. Give on day 5 of no BM 1 sup 2023 Active 2023 24800 34088 1 Daily as needed Rectal False Fleet Enema 19 gram-7 gram/118 mL Administer per rectum PRN one time if dulcolax suppository not effective. Give on day 6 of no BM 1 2023 Active 2023 90528 47095 6 Daily as needed Rectal False Milk of Magnesia 400 mg/5 mL oral suspension [Magnesium hydroxide] PRN 30ml By Mouth Daily as needed for constipation one time daily if no BM, on day 4 of no BM (PRN refer to instructions) For Constipation 30 mL 2023 Active 2023 88841 47852 6 Daily as needed By Mouth False VITAL SIGNS Date Time Diastolic blood pressure Systolic blood pressure Body height Body weight Temperature SpO2 Blood Sugar Pulse Respirations 210 74879 7 78.00 mm[Hg] - Lying Down 186.00 mm[Hg] - Lying Down 109.80 NI 97.90 Forehead Scan 91.00 % 92.00/ min 18.00/min 210 11136 1 74.00 mm[Hg] - Lying Down 147.00 mm[Hg] - Lying Down 85.00/ min
--- OUTSIDE RECORDS SUMMARY | 2024-04-10 03:23 | External Medical Summary | Continuity Of Care Document ---
Author Name Unknown Address [address] [address] Organization [facility] () Care Team Providers Care Testing Director Name Role Phone DO Alonso Amy Primary Care Provider [phone] Allergies Allergy Reaction Start Date End Date [...] pubis fracture 5mg 01/27 Inactiv e 2023 13388 79590 1 Every 4 hours as needed By Mouth False OXYCODONE 5 MG TABLET [GENERIC]IM MEDIATE RELEASE 2.5mg By Mouth Every 4 hours as needed tablet po for moderate pain, pain rate 4-6 on pain scale 1-10. For pain 2.5mg 01/27 Inactiv e 2023 Every 4 hours as needed By Mouth False Oxycodone 5 mg tablet [generic] 01/27 Inactiv e 2023 96138 50894 1 Oxycodone 5 mg tablet [generic] 5mg By Mouth Every 4 hours as needed for severe pain for pain rate 7-10. For right pubis fracture 5mg 2023 0000 Active 2023 36537 33935 1 Every 4 hours as needed By [...] For Muscle spasms 175mg 2023 Active 2023 00949 97441 1 Every 6 hours as needed By Mouth False Cephalexin 500 mg capsule [generic] 500mg By Mouth Every 8 hours For UTI 500mg 01/30 Active 2023 34701 64923 1 Every 8 hours By Mouth False Aspirin 81 mg chewable tablet [generic] 81 mg By Mouth Once daily For AAA 81 mg 2023 Active 2023 81230 10531 6 Once daily By Mouth False Colace 100 mg capsule 100mg By Mouth Twice daily For constipation 100mg 2023 Active 2023 58383 91941 1 Twice daily By Mouth False Enoxaparin 300 mg/3 mL subcutaneou s solution [generic] 20mg Subcutaneous Once daily For anticoag. 20mg 2023 Active 2023 26525 43796 1 Once daily Subcut aneous False Losartan 50 mg tablet [generic] 50 By Mouth Once daily For HTN 50 2023 Active 2023 59566 44548 9 Once daily By Mouth False Miralax 17 gram/dose oral powder 17 gram By Mouth Once daily For contispation 17 gram 2023 Active 2023 44038 41136 0 Once daily By Mouth False Senna 8.6 mg tablet 2 tabs By Mouth Once daily For constipation 2 tabs 2023 Active 2023 85856 87855 1 Once daily By Mouth False Simvastatin 20 mg tablet [generic] 20 mg By Mouth Once daily For Hyperlipidemi a 20 mg 2023 Active 2023 77519 47795 0 Once daily By Mouth False Spiriva with HandiHaler 18 mcg and inhalation capsules 1 capsule Inhalation Once daily For COPD 1 capsule 2023 Active 2023 98503 73735 1 Once daily Inhala tion False Ventolin HFA 90 mcg/actuati on aerosol inhaler 2 puff Inhalation Every 4 hours as needed For COPD 2 puff 2023 Active 2023 92421 31101 0 Every 4 hours as needed Inhala tion False ProSource No Carb 15 gram-60 kcal/30 mL oral liquid 30ml By Mouth Twice daily For Protien supplement 30ml 2023 Active 2023 26804 66064 5 Twice daily By Mouth False Albuterol sulfate 2.5 mg/3 mL (0.083 %) solution for nebulizatio n [generic] 3 ml Inhalation Every 6 hours as needed For wheezing 3 ml 2023 Active 2023 42975 20743 3 Every 6 hours as needed Inhala tion False VITAL SIGNS Date Time Diastolic blood pressure Systolic blood pressure Body height Body weight Temperature SpO2 Blood Sugar Pulse Respirations 210 66300 7 78.00 mm[Hg] - Lying Down 186.00 mm[Hg] - Lying Down 109.80 NI 97.90 Forehead Scan 91.00 % 92.00/ min 18.00/min 210 55594 1 74.00 mm[Hg] - Lying Down 147.00 mm[Hg] - Lying Down 85.00/ min
--- OUTSIDE RECORDS SUMMARY | 2024-04-10 03:23 | External Medical Summary | Continuity Of Care Document ---
Author Name Unknown Address [address] [address] Organization [facility] () Care Team Providers Care Business Analyst Manager Name Role Phone DO Alonso Amy Primary Care Provider [phone] Allergies Allergy Reaction Start Date End Date [...] Day 3 0.1 mL 01/29 Active 2023 91350 59019 0 1 time Intrad ermal False Tubersol 5 tub. unit/0.1 mL intradermal injection solution [Tuberculin PPD] 0.1mL Intradermal 1 time For PPD 2nd Step Give 2nd Step PPD Day 1 and Read results Day 3 (schedule 7 days after 1st READ) 0.1mL 02/07 Active 2023 51655 56365 0 1 time Intrad ermal False Oxycodone 5 mg tablet [generic] 5mg By Mouth Every 4 hours as needed for severe pain for pain rate 7-10. For right pubis fracture 5mg 01/27 Inactiv e 2023 89677 94197 1 Every 4 hours as needed By Mouth False OXYCODONE 5 MG TABLET [GENERIC]IM MEDIATE RELEASE 2.5mg By Mouth Every 4 hours as needed tablet po for moderate pain, pain rate 4-6 on pain scale 1-10. For pain 2.5mg 01/27 Inactiv e 2023 Every 4 hours as needed By Mouth False Oxycodone 5 mg tablet [generic] 01/27 Inactiv e 2023 80586 21646 1 Oxycodone 5 mg tablet [generic] 5mg By Mouth Every 4 hours as needed for severe pain for pain rate 7-10. For right pubis fracture 5mg 2023 Active 2023 45674 13114 1 Every 4 hours as needed By [...] For Muscle spasms 175mg 2023 Active 2023 75437 38749 1 Every 6 hours as needed By Mouth False Cephalexin 500 mg capsule [generic] 500mg By Mouth Every 8 hours For UTI 500mg 01/30 Active 2023 56293 10483 1 Every 8 hours By Mouth False Aspirin 81 mg chewable tablet [generic] 81 mg By Mouth Once daily For AAA 81 mg 2023 Active 2023 48871 22016 6 Once daily By Mouth False Colace 100 mg capsule 100mg By Mouth Twice daily For constipation 100mg 2023 Active 2023 91247 25515 1 Twice daily By Mouth False Enoxaparin 300 mg/3 mL subcutaneou s solution [generic] 20mg Subcutaneous Once daily For anticoag. 20mg 2023 Active 2023 73242 41352 1 Once daily Subcut aneous False Losartan 50 mg tablet [generic] 50 By Mouth Once daily For HTN 50 2023 Active 2023 92210 56468 9 Once daily By Mouth False Miralax 17 gram/dose oral powder 17 gram By Mouth Once daily For contispation 17 gram 2023 Active 2023 96959 31313 0 Once daily By Mouth False Senna 8.6 mg tablet 2 tabs By Mouth Once daily For constipation 2 tabs 2023 Active 2023 96967 60324 1 Once daily By Mouth False Simvastatin 20 mg tablet [generic] 20 mg By Mouth Once daily For Hyperlipidemi a 20 mg 2023 Active 2023 15483 35018 0 Once daily By Mouth False Spiriva with HandiHaler 18 mcg and inhalation capsules 1 capsule Inhalation Once daily For COPD 1 capsule 2023 Active 2023 58314 54008 1 Once daily Inhala tion False Ventolin HFA 90 mcg/actuati on aerosol inhaler 2 puff Inhalation Every 4 hours as needed For COPD 2 puff 2023 Active 2023 77110 43353 0 Every 4 hours as needed Inhala tion False ProSource No Carb 15 gram-60 kcal/30 mL oral liquid 30ml By Mouth Twice daily For Protien supplement 30ml 2023 Active 2023 80714 84494 5 Twice daily By Mouth False Albuterol sulfate 2.5 mg/3 mL (0.083 %) solution for nebulizatio n [generic] 3 ml Inhalation Every 6 hours as needed For wheezing 3 ml 2023 Active 2023 60907 98089 3 Every 6 hours as needed Inhala tion False Acetaminoph en 325 mg tablet [generic] 650 mg By Mouth Every 6 hours For Mild Pain 650 mg 2023 Active 2023 49551 58561 0 Every 6 hours By Mouth False Tylenol 325 mg tablet 2 tabs By Mouth Every 4 hours as needed For Pain DO NOT EXCEED 3000 MG APAP/24 Hours 2 tabs 2023 Active 2023 10253 51736 0 Every 4 hours as needed By Mouth False Tylenol 325 mg tablet 2 tabs By Mouth Every 4 hours as needed For Fever >100 DO NOT EXCEED 3000 MG APAP/24 Hours 2 tabs 2023 Active 2023 14878 85464 0 Every 4 hours as needed By Mouth False Dulcolax (bisacodyl) 10 mg rectal suppository One Suppository per rectum PRN if Milk of Magnisia ineffective. Give on day 5 of no BM 1 sup 2023 Active 2023 03751 97849 1 Daily as needed Rectal False Fleet Enema 19 gram-7 gram/118 mL Administer per rectum PRN one time if dulcolax suppository not effective. Give on day 6 of no BM 1 2023 Active 2023 82413 75012 6 Daily as needed Rectal False Milk of Magnesia 400 mg/5 mL oral suspension [Magnesium hydroxide] PRN 30ml By Mouth Daily as needed for constipation one time daily if no BM, on day 4 of no BM (PRN refer to instructions) For Constipation 30 mL 2023 Active 2023 25587 88227 6 Daily as needed By Mouth False VITAL SIGNS Date Time Diastolic blood pressure Systolic blood pressure Body height Body weight Temperature SpO2 Blood Sugar Pulse Respirations 210 95501 7 78.00 mm[Hg] - Lying Down 186.00 mm[Hg] - Lying Down 109.80 NI 97.90 Forehead Scan 91.00 % 92.00/ min 18.00/min 210 67202 1 74.00 mm[Hg] - Lying Down 147.00 mm[Hg] - Lying Down 85.00/ min
--- OUTSIDE RECORDS SUMMARY | 2024-04-10 03:23 | External Medical Summary | Continuity Of Care Document ---
Author Name Unknown Address [address] [address] Organization [facility] () Care Team Providers Care Behavioral Health Care Coordinator Name Role Phone DO Alonso Amy Primary Care Provider [phone] Allergies Allergy Reaction Start Date End Date [...] Day 3 0.1 mL 01/29 Active 2023 07577 52443 0 1 time Intrad ermal False Tubersol 5 tub. unit/0.1 mL intradermal injection solution [Tuberculin PPD] 0.1mL Intradermal 1 time For PPD 2nd Step Give 2nd Step PPD Day 1 and Read results Day 3 (schedule 7 days after 1st READ) 0.1mL 02/07 Active 2023 85863 02220 0 1 time Intrad ermal False Oxycodone 5 mg tablet [generic] 5mg By Mouth Every 4 hours as needed for severe pain for pain rate 7-10. For right pubis fracture 5mg 01/27 Inactiv e 2023 63207 00853 1 Every 4 hours as needed By Mouth False OXYCODONE 5 MG TABLET [GENERIC]IM MEDIATE RELEASE 2.5mg By Mouth Every 4 hours as needed tablet po for moderate pain, pain rate 4-6 on pain scale 1-10. For pain 2.5mg 01/27 Inactiv e 2023 Every 4 hours as needed By Mouth False Oxycodone 5 mg tablet [generic] 01/27 Inactiv e 2023 72950 07028 1 Oxycodone 5 mg tablet [generic] 5mg By Mouth Every 4 hours as needed for severe pain for pain rate 7-10. For right pubis fracture 5mg 2023 Active 2023 24483 76537 1 Every 4 hours as needed By [...] For Muscle spasms 175mg 2023 Active 2023 72924 69479 1 Every 6 hours as needed By Mouth False Cephalexin 500 mg capsule [generic] 500mg By Mouth Every 8 hours For UTI 500mg 01/30 Active 2023 34489 26943 1 Every 8 hours By Mouth False Aspirin 81 mg chewable tablet [generic] 81 mg By Mouth Once daily For AAA 81 mg 2023 Active 2023 81806 44372 6 Once daily By Mouth False Colace 100 mg capsule 100mg By Mouth Twice daily For constipation 100mg 2023 Active 2023 32428 50568 1 Twice daily By Mouth False Enoxaparin 300 mg/3 mL subcutaneou s solution [generic] 20mg Subcutaneous Once daily For anticoag. 20mg 2023 Active 2023 56932 86807 1 Once daily Subcut aneous False Losartan 50 mg tablet [generic] 50 By Mouth Once daily For HTN 50 2023 Active 2023 02428 84363 9 Once daily By Mouth False Miralax 17 gram/dose oral powder 17 gram By Mouth Once daily For contispation 17 gram 2023 Active 2023 01579 60386 0 Once daily By Mouth False Senna 8.6 mg tablet 2 tabs By Mouth Once daily For constipation 2 tabs 2023 Active 2023 87644 42585 1 Once daily By Mouth False Simvastatin 20 mg tablet [generic] 20 mg By Mouth Once daily For Hyperlipidemi a 20 mg 2023 Active 2023 47257 60901 0 Once daily By Mouth False Spiriva with HandiHaler 18 mcg and inhalation capsules 1 capsule Inhalation Once daily For COPD 1 capsule 2023 Active 2023 95971 18126 1 Once daily Inhala tion False Ventolin HFA 90 mcg/actuati on aerosol inhaler 2 puff Inhalation Every 4 hours as needed For COPD 2 puff 2023 Active 2023 98559 28908 0 Every 4 hours as needed Inhala tion False ProSource No Carb 15 gram-60 kcal/30 mL oral liquid 30ml By Mouth Twice daily For Protien supplement 30ml 2023 Active 2023 78356 55801 5 Twice daily By Mouth False Albuterol sulfate 2.5 mg/3 mL (0.083 %) solution for nebulizatio n [generic] 3 ml Inhalation Every 6 hours as needed For wheezing 3 ml 2023 Active 2023 25457 14202 3 Every 6 hours as needed Inhala tion False Acetaminoph en 325 mg tablet [generic] 650 mg By Mouth Every 6 hours For Mild Pain 650 mg 2023 Active 2023 46286 11667 0 Every 6 hours By Mouth False Tylenol 325 mg tablet 2 tabs By Mouth Every 4 hours as needed For Pain DO NOT EXCEED 3000 MG APAP/24 Hours 2 tabs 2023 Active 2023 14815 71558 0 Every 4 hours as needed By Mouth False Tylenol 325 mg tablet 2 tabs By Mouth Every 4 hours as needed For Fever >100 DO NOT EXCEED 3000 MG APAP/24 Hours 2 tabs 2023 Active 2023 67380 87896 0 Every 4 hours as needed By Mouth False Dulcolax (bisacodyl) 10 mg rectal suppository One Suppository per rectum PRN if Milk of Magnisia ineffective. Give on day 5 of no BM 1 sup 2023 Active 2023 09249 49771 1 Daily as needed Rectal False Fleet Enema 19 gram-7 gram/118 mL Administer per rectum PRN one time if dulcolax suppository not effective. Give on day 6 of no BM 1 2023 Active 2023 98500 27536 6 Daily as needed Rectal False Milk of Magnesia 400 mg/5 mL oral suspension [Magnesium hydroxide] PRN 30ml By Mouth Daily as needed for constipation one time daily if no BM, on day 4 of no BM (PRN refer to instructions) For Constipation 30 mL 2023 Active 2023 17658 27595 6 Daily as needed By Mouth False VITAL SIGNS Date Time Diastolic blood pressure Systolic blood pressure Body height Body weight Temperature SpO2 Blood Sugar Pulse Respirations 210 52989 7 78.00 mm[Hg] - Lying Down 186.00 mm[Hg] - Lying Down 109.80 NI 97.90 Forehead Scan 91.00 % 92.00/ min 18.00/min 210 55502 1 74.00 mm[Hg] - Lying Down 147.00 mm[Hg] - Lying Down 85.00/ min
--- OUTSIDE RECORDS SUMMARY | 2024-04-10 03:23 | External Medical Summary | Continuity Of Care Document ---
Author Name Unknown Address [address] [address] Organization [facility] () Care Team Providers Care Internal Recruiter Name Role Phone DO Alonso Amy Primary Care Provider [phone] Allergies Allergy Reaction Start Date End Date [...] Day 3 0.1 mL 01/29 Active 2023 17755 65063 0 1 time Intrad ermal False Tubersol 5 tub. unit/0.1 mL intradermal injection solution [Tuberculin PPD] 0.1mL Intradermal 1 time For PPD 2nd Step Give 2nd Step PPD Day 1 and Read results Day 3 (schedule 7 days after 1st READ) 0.1mL 02/07 Active 2023 90295 66717 0 1 time Intrad ermal False Oxycodone 5 mg tablet [generic] 5mg By Mouth Every 4 hours as needed for severe pain for pain rate 7-10. For right pubis fracture 5mg 01/27 Inactiv e 2023 38473 55896 1 Every 4 hours as needed By Mouth False OXYCODONE 5 MG TABLET [GENERIC]IM MEDIATE RELEASE 2.5mg By Mouth Every 4 hours as needed tablet po for moderate pain, pain rate 4-6 on pain scale 1-10. For pain 2.5mg 01/27 Inactiv e 2023 Every 4 hours as needed By Mouth False Oxycodone 5 mg tablet [generic] 01/27 Inactiv e 2023 45035 62462 1 Oxycodone 5 mg tablet [generic] 5mg By Mouth Every 4 hours as needed for severe pain for pain rate 7-10. For right pubis fracture 5mg 2023 Active 2023 55650 47879 1 Every 4 hours as needed By [...] For Muscle spasms 175mg 2023 Active 2023 62552 23900 1 Every 6 hours as needed By Mouth False Cephalexin 500 mg capsule [generic] 500mg By Mouth Every 8 hours For UTI 500mg 01/30 Active 2023 16281 20858 1 Every 8 hours By Mouth False Aspirin 81 mg chewable tablet [generic] 81 mg By Mouth Once daily For AAA 81 mg 2023 Active 2023 75435 64161 6 Once daily By Mouth False Colace 100 mg capsule 100mg By Mouth Twice daily For constipation 100mg 2023 Active 2023 49274 43328 1 Twice daily By Mouth False Enoxaparin 300 mg/3 mL subcutaneou s solution [generic] 20mg Subcutaneous Once daily For anticoag. 20mg 2023 Active 2023 90110 72185 1 Once daily Subcut aneous False Losartan 50 mg tablet [generic] 50 By Mouth Once daily For HTN 50 2023 Active 2023 00362 72008 9 Once daily By Mouth False Miralax 17 gram/dose oral powder 17 gram By Mouth Once daily For contispation 17 gram 2023 Active 2023 80403 52711 0 Once daily By Mouth False Senna 8.6 mg tablet 2 tabs By Mouth Once daily For constipation 2 tabs 2023 Active 2023 65728 59260 1 Once daily By Mouth False Simvastatin 20 mg tablet [generic] 20 mg By Mouth Once daily For Hyperlipidemi a 20 mg 2023 Active 2023 83374 94895 0 Once daily By Mouth False Spiriva with HandiHaler 18 mcg and inhalation capsules 1 capsule Inhalation Once daily For COPD 1 capsule 2023 Active 2023 46500 79028 1 Once daily Inhala tion False Ventolin HFA 90 mcg/actuati on aerosol inhaler 2 puff Inhalation Every 4 hours as needed For COPD 2 puff 2023 Active 2023 29481 60583 0 Every 4 hours as needed Inhala tion False ProSource No Carb 15 gram-60 kcal/30 mL oral liquid 30ml By Mouth Twice daily For Protien supplement 30ml 2023 Active 2023 90113 98940 5 Twice daily By Mouth False Albuterol sulfate 2.5 mg/3 mL (0.083 %) solution for nebulizatio n [generic] 3 ml Inhalation Every 6 hours as needed For wheezing 3 ml 2023 Active 2023 76626 30179 3 Every 6 hours as needed Inhala tion False Acetaminoph en 325 mg tablet [generic] 650 mg By Mouth Every 6 hours For Mild Pain 650 mg 2023 Active 2023 48316 88688 0 Every 6 hours By Mouth False Tylenol 325 mg tablet 2 tabs By Mouth Every 4 hours as needed For Pain DO NOT EXCEED 3000 MG APAP/24 Hours 2 tabs 2023 Active 2023 47541 18189 0 Every 4 hours as needed By Mouth False Tylenol 325 mg tablet 2 tabs By Mouth Every 4 hours as needed For Fever >100 DO NOT EXCEED 3000 MG APAP/24 Hours 2 tabs 2023 Active 2023 88440 81466 0 Every 4 hours as needed By Mouth False Dulcolax (bisacodyl) 10 mg rectal suppository One Suppository per rectum PRN if Milk of Magnisia ineffective. Give on day 5 of no BM 1 sup 2023 Active 2023 14627 20529 1 Daily as needed Rectal False Fleet Enema 19 gram-7 gram/118 mL Administer per rectum PRN one time if dulcolax suppository not effective. Give on day 6 of no BM 1 2023 Active 2023 00263 55916 6 Daily as needed Rectal False Milk of Magnesia 400 mg/5 mL oral suspension [Magnesium hydroxide] PRN 30ml By Mouth Daily as needed for constipation one time daily if no BM, on day 4 of no BM (PRN refer to instructions) For Constipation 30 mL 2023 Active 2023 98966 96813 6 Daily as needed By Mouth False VITAL SIGNS Date Time Diastolic blood pressure Systolic blood pressure Body height Body weight Temperature SpO2 Blood Sugar Pulse Respirations 210 99439 7 78.00 mm[Hg] - Lying Down 186.00 mm[Hg] - Lying Down 109.80 NI 97.90 Forehead Scan 91.00 % 92.00/ min 18.00/min 210 08094 1 74.00 mm[Hg] - Lying Down 147.00 mm[Hg] - Lying Down 85.00/ min
--- OUTSIDE RECORDS SUMMARY | 2024-04-10 03:24 | External Medical Summary ---
Author Name Unknown Address Unknown Organization K01:[place] [facility] [place] [address] [address] Laboratory Report Ordering Provider Test Date Status FERNANDEZ SIDDIQUI 01/27/2024 09:31:00 Final Observation Date Value Abnormality Reference (Units ) Status LMW Heparin [Units/volume] in Platelet poor plasma by Chromogenic method 01/27/2024 09:31:00 0.43 Above high normal <0.10 (IU/mL) Final Low molecular weight heparin 's therapeutic range is 0.6 - 1.00 I.U./mL. Performing Location [place] [facility] [place] [address] [place] [address]
--- OUTSIDE RECORDS SUMMARY | 2024-04-10 03:24 | External Medical Summary | Continuity Of Care Document ---
Author Name Unknown Address [address] [address] Organization [facility] () Care Team Providers Care Safety Aide Name Role Phone DO Alonso Amy Primary Care Provider [phone] Allergies Allergy Reaction Start Date End Date [...] right pubis fracture 5mg 2023 Active 2023 93418 54372 1 Every 4 hours as needed By Mouth False OXYCODONE 5 MG TABLET [GENERIC]IM MEDIATE RELEASE 2.5mg By Mouth Every 4 hours as needed tablet po for moderate pain, pain rate 4-6 on pain scale 1-10. For pain 2.5mg 2023 Active 2023 Every 4 hours as needed By Mouth False VITAL SIGNS Date Time Diastolic blood pressure Systolic blood pressure Body height Body weight Temperature SpO2 Blood Sugar Pulse Respirations 210 70403 7 78.00 mm[Hg] - Lying Down 186.00 mm[Hg] - Lying Down 109.80 NI 97.90 Forehead Scan 91.00 % 92.00/ min 18.00/min 210 28136 1 74.00 mm[Hg] - Lying Down 147.00 mm[Hg] - Lying Down 85.00/ min
--- OUTSIDE RECORDS SUMMARY | 2024-04-10 03:24 | External Medical Summary | Continuity Of Care Document ---
Author Name Unknown Address [address] [address] Organization [facility] () Care Team Providers Care Dump Attendant Name Role Phone DO Alonso Amy Primary Care Provider [phone] Allergies Allergy Reaction Start Date End Date [...] Day 3 0.1 mL 01/29 Active 2023 13855 64549 0 1 time Intrad ermal False Tubersol 5 tub. unit/0.1 mL intradermal injection solution [Tuberculin PPD] 0.1mL Intradermal 1 time For PPD 2nd Step Give 2nd Step PPD Day 1 and Read results Day 3 (schedule 7 days after 1st READ) 0.1mL 02/07 Active 2023 40026 14989 0 1 time Intrad ermal False Oxycodone 5 mg tablet [generic] 5mg By Mouth Every 4 hours as needed for severe pain for pain rate 7-10. For right pubis fracture 5mg 01/27 Inactiv e 2023 58801 79483 1 Every 4 hours as needed By Mouth False OXYCODONE 5 MG TABLET [GENERIC]IM MEDIATE RELEASE 2.5mg By Mouth Every 4 hours as needed tablet po for moderate pain, pain rate 4-6 on pain scale 1-10. For pain 2.5mg 01/27 Inactiv e 2023 Every 4 hours as needed By Mouth False Oxycodone 5 mg tablet [generic] 01/27 Inactiv e 2023 77697 12641 1 Oxycodone 5 mg tablet [generic] 5mg By Mouth Every 4 hours as needed for severe pain for pain rate 7-10. For right pubis fracture 5mg 2023 Active 2023 47263 18169 1 Every 4 hours as needed By [...] For Muscle spasms 175mg 2023 Active 2023 98894 41410 1 Every 6 hours as needed By Mouth False Cephalexin 500 mg capsule [generic] 500mg By Mouth Every 8 hours For UTI 500mg 01/30 Active 2023 16181 96359 1 Every 8 hours By Mouth False Aspirin 81 mg chewable tablet [generic] 81 mg By Mouth Once daily For AAA 81 mg 2023 Active 2023 86508 57829 6 Once daily By Mouth False Colace 100 mg capsule 100mg By Mouth Twice daily For constipation 100mg 2023 Active 2023 52136 20006 1 Twice daily By Mouth False Enoxaparin 300 mg/3 mL subcutaneou s solution [generic] 20mg Subcutaneous Once daily For anticoag. 20mg 2023 Active 2023 27011 89623 1 Once daily Subcut aneous False Losartan 50 mg tablet [generic] 50 By Mouth Once daily For HTN 50 2023 Active 2023 93444 49483 9 Once daily By Mouth False Miralax 17 gram/dose oral powder 17 gram By Mouth Once daily For contispation 17 gram 2023 Active 2023 70652 49833 0 Once daily By Mouth False Senna 8.6 mg tablet 2 tabs By Mouth Once daily For constipation 2 tabs 2023 Active 2023 46542 18259 1 Once daily By Mouth False Simvastatin 20 mg tablet [generic] 20 mg By Mouth Once daily For Hyperlipidemi a 20 mg 2023 Active 2023 93432 21587 0 Once daily By Mouth False Spiriva with HandiHaler 18 mcg and inhalation capsules 1 capsule Inhalation Once daily For COPD 1 capsule 2023 Active 2023 34565 15984 1 Once daily Inhala tion False Ventolin HFA 90 mcg/actuati on aerosol inhaler 2 puff Inhalation Every 4 hours as needed For COPD 2 puff 2023 Active 2023 32155 02664 0 Every 4 hours as needed Inhala tion False ProSource No Carb 15 gram-60 kcal/30 mL oral liquid 30ml By Mouth Twice daily For Protien supplement 30ml 2023 Active 2023 65555 47772 5 Twice daily By Mouth False Albuterol sulfate 2.5 mg/3 mL (0.083 %) solution for nebulizatio n [generic] 3 ml Inhalation Every 6 hours as needed For wheezing 3 ml 2023 Active 2023 89922 44466 3 Every 6 hours as needed Inhala tion False Acetaminoph en 325 mg tablet [generic] 650 mg By Mouth Every 6 hours For Mild Pain 650 mg 2023 Active 2023 23337 72790 0 Every 6 hours By Mouth False Tylenol 325 mg tablet 2 tabs By Mouth Every 4 hours as needed For Pain DO NOT EXCEED 3000 MG APAP/24 Hours 2 tabs 2023 Active 2023 01907 18305 0 Every 4 hours as needed By Mouth False Tylenol 325 mg tablet 2 tabs By Mouth Every 4 hours as needed For Fever >100 DO NOT EXCEED 3000 MG APAP/24 Hours 2 tabs 2023 Active 2023 42127 71016 0 Every 4 hours as needed By Mouth False Dulcolax (bisacodyl) 10 mg rectal suppository One Suppository per rectum PRN if Milk of Magnisia ineffective. Give on day 5 of no BM 1 sup 2023 Active 2023 31897 92576 1 Daily as needed Rectal False Fleet Enema 19 gram-7 gram/118 mL Administer per rectum PRN one time if dulcolax suppository not effective. Give on day 6 of no BM 1 2023 Active 2023 06433 05088 6 Daily as needed Rectal False Milk of Magnesia 400 mg/5 mL oral suspension [Magnesium hydroxide] PRN 30ml By Mouth Daily as needed for constipation one time daily if no BM, on day 4 of no BM (PRN refer to instructions) For Constipation 30 mL 2023 Active 2023 41469 23873 6 Daily as needed By Mouth False VITAL SIGNS Date Time Diastolic blood pressure Systolic blood pressure Body height Body weight Temperature SpO2 Blood Sugar Pulse Respirations 210 88008 7 78.00 mm[Hg] - Lying Down 186.00 mm[Hg] - Lying Down 109.80 NI 97.90 Forehead Scan 91.00 % 92.00/ min 18.00/min 210 83492 1 74.00 mm[Hg] - Lying Down 147.00 mm[Hg] - Lying Down 85.00/ min
--- OUTSIDE RECORDS SUMMARY | 2024-04-10 03:24 | External Medical Summary | Continuity Of Care Document ---
Author Name Unknown Address [address] [address] Organization [facility] () Care Team Providers Care Cheese Packer Name Role Phone DO Alonso Amy Primary Care Provider [phone] Allergies Allergy Reaction Start Date End Date [...] Day 3 0.1 mL 01/29 Active 2023 64951 03427 0 1 time Intrad ermal False Tubersol 5 tub. unit/0.1 mL intradermal injection solution [Tuberculin PPD] 0.1mL Intradermal 1 time For PPD 2nd Step Give 2nd Step PPD Day 1 and Read results Day 3 (schedule 7 days after 1st READ) 0.1mL 02/07 Active 2023 73486 44938 0 1 time Intrad ermal False Oxycodone 5 mg tablet [generic] 5mg By Mouth Every 4 hours as needed for severe pain for pain rate 7-10. For right pubis fracture 5mg 01/27 Inactiv e 2023 51835 48774 1 Every 4 hours as needed By Mouth False OXYCODONE 5 MG TABLET [GENERIC]IM MEDIATE RELEASE 2.5mg By Mouth Every 4 hours as needed tablet po for moderate pain, pain rate 4-6 on pain scale 1-10. For pain 2.5mg 01/27 Inactiv e 2023 Every 4 hours as needed By Mouth False Oxycodone 5 mg tablet [generic] 01/27 Inactiv e 2023 68641 22328 1 Oxycodone 5 mg tablet [generic] 5mg By Mouth Every 4 hours as needed for severe pain for pain rate 7-10. For right pubis fracture 5mg 2023 Active 2023 02088 47667 1 Every 4 hours as needed By [...] For Muscle spasms 175mg 2023 Active 2023 18019 91967 1 Every 6 hours as needed By Mouth False Cephalexin 500 mg capsule [generic] 500mg By Mouth Every 8 hours For UTI 500mg 01/30 Active 2023 11514 64569 1 Every 8 hours By Mouth False Aspirin 81 mg chewable tablet [generic] 81 mg By Mouth Once daily For AAA 81 mg 2023 Active 2023 07539 61434 6 Once daily By Mouth False Colace 100 mg capsule 100mg By Mouth Twice daily For constipation 100mg 2023 Active 2023 64902 41452 1 Twice daily By Mouth False Enoxaparin 300 mg/3 mL subcutaneou s solution [generic] 20mg Subcutaneous Once daily For anticoag. 20mg 2023 Active 2023 45675 32834 1 Once daily Subcut aneous False Losartan 50 mg tablet [generic] 50 By Mouth Once daily For HTN 50 2023 Active 2023 59784 39714 9 Once daily By Mouth False Miralax 17 gram/dose oral powder 17 gram By Mouth Once daily For contispation 17 gram 2023 Active 2023 26807 63114 0 Once daily By Mouth False Senna 8.6 mg tablet 2 tabs By Mouth Once daily For constipation 2 tabs 2023 Active 2023 68879 96034 1 Once daily By Mouth False Simvastatin 20 mg tablet [generic] 20 mg By Mouth Once daily For Hyperlipidemi a 20 mg 2023 Active 2023 56970 29138 0 Once daily By Mouth False Spiriva with HandiHaler 18 mcg and inhalation capsules 1 capsule Inhalation Once daily For COPD 1 capsule 2023 Active 2023 86260 16137 1 Once daily Inhala tion False Ventolin HFA 90 mcg/actuati on aerosol inhaler 2 puff Inhalation Every 4 hours as needed For COPD 2 puff 2023 Active 2023 48292 30353 0 Every 4 hours as needed Inhala tion False ProSource No Carb 15 gram-60 kcal/30 mL oral liquid 30ml By Mouth Twice daily For Protien supplement 30ml 2023 Active 2023 95391 65728 5 Twice daily By Mouth False Albuterol sulfate 2.5 mg/3 mL (0.083 %) solution for nebulizatio n [generic] 3 ml Inhalation Every 6 hours as needed For wheezing 3 ml 2023 Active 2023 73537 45569 3 Every 6 hours as needed Inhala tion False Acetaminoph en 325 mg tablet [generic] 650 mg By Mouth Every 6 hours For Mild Pain 650 mg 2023 Active 2023 51986 33642 0 Every 6 hours By Mouth False Tylenol 325 mg tablet 2 tabs By Mouth Every 4 hours as needed For Pain DO NOT EXCEED 3000 MG APAP/24 Hours 2 tabs 2023 Active 2023 02183 72459 0 Every 4 hours as needed By Mouth False Tylenol 325 mg tablet 2 tabs By Mouth Every 4 hours as needed For Fever >100 DO NOT EXCEED 3000 MG APAP/24 Hours 2 tabs 2023 Active 2023 33205 86300 0 Every 4 hours as needed By Mouth False Dulcolax (bisacodyl) 10 mg rectal suppository One Suppository per rectum PRN if Milk of Magnisia ineffective. Give on day 5 of no BM 1 sup 2023 Active 2023 85365 38992 1 Daily as needed Rectal False Fleet Enema 19 gram-7 gram/118 mL Administer per rectum PRN one time if dulcolax suppository not effective. Give on day 6 of no BM 1 2023 Active 2023 32104 30861 6 Daily as needed Rectal False Milk of Magnesia 400 mg/5 mL oral suspension [Magnesium hydroxide] PRN 30ml By Mouth Daily as needed for constipation one time daily if no BM, on day 4 of no BM (PRN refer to instructions) For Constipation 30 mL 2023 Active 2023 61610 92735 6 Daily as needed By Mouth False VITAL SIGNS Date Time Diastolic blood pressure Systolic blood pressure Body height Body weight Temperature SpO2 Blood Sugar Pulse Respirations 210 96069 7 78.00 mm[Hg] - Lying Down 186.00 mm[Hg] - Lying Down 109.80 NI 97.90 Forehead Scan 91.00 % 92.00/ min 18.00/min 210 99004 1 74.00 mm[Hg] - Lying Down 147.00 mm[Hg] - Lying Down 85.00/ min
--- OUTSIDE RECORDS SUMMARY | 2024-04-10 03:24 | External Medical Summary ---
Author Name Unknown Address Unknown Organization K01:[place] [facility] [place] [address] [place] [address] Laboratory Report Ordering Provider Test Date Status MIRANDA DAVID 01/25/2024 04:33:00 Final Observation Date Value Abnormality Reference (Units ) Status WBC, Total 01/25/2024 04:33:00 7.67 4.00-10.80 (K/uL) Final RBC 01/25/2024 04:33:00 2.98 3.85-5.15 (M/uL) Final Hemoglobin 01/25/2024 04:33:00 9.3 Below low normal 12.0-15.3 (g/dL) Final HCT 01/25/2024 04:33:00 29.1 Below low normal 36.0-45.2 (%) Final MCV 01/25/2024 04:33:00 97.7 81.5-97.5 (fL) Final MCH 01/25/2024 04:33:00 31.2 27.0-34.0 (pg) Final MCHC 01/25/2024 04:33:00 32.0 32.0-36.0 (g/dL) Final RDW 01/25/2024 04:33:00 13.1 11.5-15.5 (%) Final Platelets 01/25/2024 04:33:00 215 140-400 (K/uL) Final MPV 01/25/2024 04:33:00 9.9 6.6-11.1 (fL) Final Nucleated erythrocytes/100 leukocytes [Ratio] in Blood by Automated count 01/25/2024 04:33:00 0 <=0 (/100 WBCs) Final Performing Location [facility] [facility] [place] [address] [place] [address]
--- OUTSIDE RECORDS SUMMARY | 2024-04-10 03:24 | External Medical Summary | Continuity Of Care Document ---
Author Name Unknown Address [address] [address] Organization [facility] () Care Team Providers Care Tinsmith Apprentice Name Role Phone DO Alonso Amy Primary Care Provider [phone] Allergies Allergy Reaction Start Date End Date [...] pubis fracture 5mg 01/27 Inactiv e 2023 21006 64149 1 Every 4 hours as needed By Mouth False OXYCODONE 5 MG TABLET [GENERIC]IM MEDIATE RELEASE 2.5mg By Mouth Every 4 hours as needed tablet po for moderate pain, pain rate 4-6 on pain scale 1-10. For pain 2.5mg 01/27 Inactiv e 2023 Every 4 hours as needed By Mouth False Oxycodone 5 mg tablet [generic] 01/27 Inactiv e 2023 77933 95149 1 Oxycodone 5 mg tablet [generic] 5mg By Mouth Every 4 hours as needed for severe pain for pain rate 7-10. For right pubis fracture 5mg 2023 0000 Active 2023 68219 45067 1 Every 4 hours as needed By [...] For Muscle spasms 175mg 2023 Active 2023 28585 79785 1 Every 6 hours as needed By Mouth False Cephalexin 500 mg capsule [generic] 500mg By Mouth Every 8 hours For UTI 500mg 01/30 Active 2023 60654 10324 1 Every 8 hours By Mouth False VITAL SIGNS Date Time Diastolic blood pressure Systolic blood pressure Body height Body weight Temperature SpO2 Blood Sugar Pulse Respirations 210 54227 7 78.00 mm[Hg] - Lying Down 186.00 mm[Hg] - Lying Down 109.80 NI 97.90 Forehead Scan 91.00 % 92.00/ min 18.00/min 210 33973 1 74.00 mm[Hg] - Lying Down 147.00 mm[Hg] - Lying Down 85.00/ min
--- OUTSIDE RECORDS SUMMARY | 2024-04-10 03:24 | External Medical Summary ---
Author Name Unknown Address Unknown Organization K01:LAB[facility]ATORY [facility] [place] - [address] [place] [address] Laboratory Report Ordering Provider Test Date Status MIRANDA DAVID 01/24/2024 03:26:00 Final Observation Date Value Abnormality Reference (Units ) Status WBC, Total 01/24/2024 03:26:00 8.33 4.00-10.80 (K/uL) Final RBC 01/24/2024 03:26:00 2.85 3.85-5.15 (M/uL) Final Hemoglobin 01/24/2024 03:26:00 9.0 Below low normal 12.0-15.3 (g/dL) Final HCT 01/24/2024 03:26:00 27.9 Below low normal 36.0-45.2 (%) Final MCV 01/24/2024 03:26:00 97.9 81.5-97.5 (fL) Final MCH 01/24/2024 03:26:00 31.6 27.0-34.0 (pg) Final MCHC 01/24/2024 03:26:00 32.3 32.0-36.0 (g/dL) Final RDW 01/24/2024 03:26:00 13.1 11.5-15.5 (%) Final Platelets 01/24/2024 03:26:00 193 140-400 (K/uL) Final MPV 01/24/2024 03:26:00 9.9 6.6-11.1 (fL) Final Nucleated erythrocytes/100 leukocytes [Ratio] in Blood by Automated count 01/24/2024 03:26:00 0 <=0 (/100 WBCs) Final Performing Location LABORATORY [facility] [place] - [address] [place] [address]
--- OUTSIDE RECORDS SUMMARY | 2024-04-10 03:24 | External Medical Summary | Continuity Of Care Document ---
Author Name Unknown Address [address] [address] Organization [facility] () Care Team Providers Care Target Protection Specialist Name Role Phone DO Alonso Amy Primary Care Provider [phone] Allergies Allergy Reaction Start Date End Date [...] pubis fracture 5mg 01/27 Inactiv e 2023 33051 39063 1 Every 4 hours as needed By Mouth False OXYCODONE 5 MG TABLET [GENERIC]IM MEDIATE RELEASE 2.5mg By Mouth Every 4 hours as needed tablet po for moderate pain, pain rate 4-6 on pain scale 1-10. For pain 2.5mg 01/27 Inactiv e 2023 Every 4 hours as needed By Mouth False Oxycodone 5 mg tablet [generic] 01/27 Inactiv e 2023 44336 01772 1 Oxycodone 5 mg tablet [generic] 5mg By Mouth Every 4 hours as needed for severe pain for pain rate 7-10. For right pubis fracture 5mg 2023 0000 Active 2023 48941 51225 1 Every 4 hours as needed By Mouth False DISCONTINUE as of 01/28/2024: OXYCODONE 5 MG TABLET [GENERIC]IM MEDIATE RELEASE 01/27 Inactiv e 2023 OXYCODONE 5 MG TABLET [GENERIC]IM MEDIATE RELEASE 2.5mg By Mouth Every 4 hours as needed tablet po for moderate , rate 4-6 on scale 1-10. For right pubis fracture 2.5mg 2023 00 /0000 Active 2023 Every 4 hours as needed By Mouth False VITAL SIGNS Date Time Diastolic blood pressure Systolic blood pressure Body height Body weight Temperature SpO2 Blood Sugar Pulse Respirations 210 15480 7 78.00 mm[Hg] - Lying Down 186.00 mm[Hg] - Lying Down 109.80 NI 97.90 Forehead Scan 91.00 % 92.00/ min 18.00/min 210 16317 1 74.00 mm[Hg] - Lying Down 147.00 mm[Hg] - Lying Down 85.00/ min
--- OUTSIDE RECORDS SUMMARY | 2024-04-10 03:24 | External Medical Summary | Continuity Of Care Document ---
Author Name Unknown Address [address] [address] Organization [facility] () Care Team Providers Care Clinical Cytogeneticist Scientist Name Role Phone DO Alonso Amy Primary Care Provider [phone] VITAL SIGNS Date Time Diastolic blood pressure Systolic blood pressure Body height Body weight Temperature SpO2 Blood Sugar Pulse Respirations 86196 210 65505 7 78.00 mm[Hg] - Lying Down 186.00 mm[Hg] - Lying Down 109.80 NI 97.90 Forehead Scan 91.00 % 92.00/ min 18.00/min
--- OUTSIDE RECORDS SUMMARY | 2024-04-10 03:24 | External Medical Summary ---
Author Name Unknown Address Unknown Organization K01:LABORATORY [facility] [place] - [address] [place] [address] Laboratory Report Ordering Provider Test Date Status MIRANDA DAVID 01/26/2024 04:20:00 Final Observation Date Value Abnormality Reference (Units ) Status BUN 01/26/2024 04:20:00 16 6-20 (mg/dL) Final Creatinine 01/26/2024 04:20:00 1.0 0.5-1.0 (mg/dL) Final Glomerular filtration rate/1.73 sq M.predicted [Volume Rate/Area] in Serum, Plasma or Blood by Creatinine-based formula (CKD-EPI) 01/26/2024 04:20:00 59 Below low normal >=60 (mL/min) Final eGFR is calculated based on the CKD-EPI 2020 equation. Sodium 01/26/2024 04:20:00 133 Below low normal 135 -146 (mmol/L) Final Potassium 01/26/2024 04:20:00 3.9 3.5-5.1 (m mol/L) Final Cl 01/26/2024 04:20:00 99 98-107 (mm ol/L) Final CO2 01/26/2024 04:20:00 26 22-32 (mmo l/L) Final Anion gap 01/26/2024 04:20:00 8 7-15 (mmol /L) Final Glucose 01/26/2024 04:20:00 101 70-120 (mg /dL) Final Calcium 01/26/2024 04:20:00 8.5 8.4-10.2 ( mg/dL) Final Performing Location LABORATORY [facility] [place] - [address] [place] [address]
--- OUTSIDE RECORDS SUMMARY | 2024-04-10 03:24 | External Medical Summary ---
Author Name Unknown Address Unknown Organization K01:LABORATORY [facility] [place] - [address] [place] [address] Laboratory Report Ordering Provider Test Date Status MIRANDA DAVID 01/25/2024 04:33:00 Final Observation Date Value Abnormality Reference (Units ) Status BUN 01/25/2024 04:33:00 21 Above high normal 6-20 (mg/dL) Final Creatinine 01/25/2024 04:33:00 1.0 0.5-1.0 (mg/dL) Final Glomerular filtration rate/1.73 sq M.predicted [Volume Rate/Area] in Serum, Plasma or Blood by Creatinine-based formula (CKD-EPI) 01/25/2024 04:33:00 59 Below low normal >=60 (mL/min) Final eGFR is calculated based on the CKD-EPI 2020 equation. Sodium 01/25/2024 04:33:00 136 135-146 (m mol/L) Final Potassium 01/25/2024 04:33:00 4.2 3.5-5.1 (m mol/L) Final Cl 01/25/2024 04:33:00 102 98-107 (mm ol/L) Final CO2 01/25/2024 04:33:00 24 22-32 (mmo l/L) Final Anion gap 01/25/2024 04:33:00 10 7-15 (mmol /L) Final Glucose 01/25/2024 04:33:00 99 70-120 (mg /dL) Final Calcium 01/25/2024 04:33:00 8.7 8.4-10.2 ( mg/dL) Final Performing Location LABORATORY [facility] - [address] [place] [address]
--- OUTSIDE RECORDS SUMMARY | 2024-04-10 03:24 | External Medical Summary | Continuity Of Care Document ---
Author Name Unknown Address [address] [address] Organization [facility] Andres () Care Team Providers Care Photographic Process Worker Name Role Phone DO Alonso Amy Primary Care Provider [phone] Allergies Allergy Reaction Start Date End Date [...] pubis fracture 5mg 01/27 Inactiv e 2023 84251 22714 1 Every 4 hours as needed By Mouth False OXYCODONE 5 MG TABLET [GENERIC]IM MEDIATE RELEASE 2.5mg By Mouth Every 4 hours as needed tablet po for moderate pain, pain rate 4-6 on pain scale 1-10. For pain 2.5mg 01/27 Inactiv e 2023 Every 4 hours as needed By Mouth False Oxycodone 5 mg tablet [generic] 01/27 Inactiv e 2023 89005 91893 1 Oxycodone 5 mg tablet [generic] 5mg By Mouth Every 4 hours as needed for severe pain for pain rate 7-10. For right pubis fracture 5mg 2023 0000 Active 2023 38641 60900 1 Every 4 hours as needed By [...] For Muscle spasms 175mg 2023 Active 2023 04455 56089 1 Every 6 hours as needed By Mouth False Cephalexin 500 mg capsule [generic] 500mg By Mouth Every 8 hours For UTI 500mg 01/30 Active 2023 09397 05973 1 Every 8 hours By Mouth False Aspirin 81 mg chewable tablet [generic] 81 mg By Mouth Once daily For AAA 81 mg 2023 Active 2023 52101 02258 6 Once daily By Mouth False Colace 100 mg capsule 100mg By Mouth Twice daily For constipation 100mg 2023 Active 2023 76835 89962 1 Twice daily By Mouth False Enoxaparin 300 mg/3 mL subcutaneou s solution [generic] 20mg Subcutaneous Once daily For anticoag. 20mg 2023 Active 2023 30224 57156 1 Once daily Subcut aneous False Losartan 50 mg tablet [generic] 50 By Mouth Once daily For HTN 50 2023 Active 2023 22809 85296 9 Once daily By Mouth False Miralax 17 gram/dose oral powder 17 gram By Mouth Once daily For contispation 17 gram 2023 Active 2023 97611 24211 0 Once daily By Mouth False Senna 8.6 mg tablet 2 tabs By Mouth Once daily For constipation 2 tabs 2023 Active 2023 78684 32014 1 Once daily By Mouth False VITAL SIGNS Date Time Diastolic blood pressure Systolic blood pressure Body height Body weight Temperature SpO2 Blood Sugar Pulse Respirations 92720 210 39698 7 78.00 mm[Hg] - Lying Down 186.00 mm[Hg] - Lying Down 109.80 NI 97.90 Forehead Scan 91.00 % 92.00/ min 18.00/min 18412 210 98682 1 74.00 mm[Hg] - Lying Down 147.00 mm[Hg] - Lying Down 85.00/ min
--- OUTSIDE RECORDS SUMMARY | 2024-04-10 03:24 | External Medical Summary ---
Author Name Unknown Address Unknown Organization K01:[facility] [place] [facility] [address] [place] [address] Laboratory Report Ordering Provider Test Date Status MIRANDA DAVID 01/23/2024 06:46:00 Final Observation Date Value Abnormality Reference (Units ) Status BUN 01/23/2024 06:46:00 41 Above high normal 6-20 (mg/dL) Final Creatinine 01/23/2024 06:46:00 1.3 Above high normal 0.5-1.0 (mg/dL) Final Glomerular filtration rate/1.73 sq M.predicted [Volume Rate/Area] in Serum, Plasma or Blood by Creatinine-based formula (CKD-EPI) 01/23/2024 06:46:00 41 Below low normal >=60 (mL/min) Final eGFR is calculated based on the CKD-EPI 2020 equation. Sodium 01/23/2024 06:46:00 132 Below low normal 135 -146 (mmol/L) Final Potassium 01/23/2024 06:46:00 4.4 3.5-5.1 (m mol/L) Final Cl 01/23/2024 06:46:00 100 98-107 (mm ol/L) Final CO2 01/23/2024 06:46:00 21 Below low normal 22- 32 (mmol/L) Final Anion gap 01/23/2024 06:46:00 11 7-15 (mmol /L) Final Glucose 01/23/2024 06:46:00 83 70-120 (mg /dL) Final Calcium 01/23/2024 06:46:00 8.6 8.4-10.2 ( mg/dL) Final Performing Location [facility] [place] [address] [place] [id number]
--- OUTSIDE RECORDS SUMMARY | 2024-04-10 03:24 | External Medical Summary | Summary of Care ---
Author Name Unknown Organization [facility] Address [address] [place] [address] Phone [phone] Care Team Providers Care Data Steward Name Role Phone Haseeb Rendon Primary Care Provider Reason for Visit * Reason Onset Date Comments Hospital Follow-Up 01/28/2024 1wk hd/fu luisa t needed thanks Jessica Encounter Details Date Type Department Care Team (Late st Contact Info) Description 01/28/2024 Telephone Urology, [facility] [address] [place] [address] Specified, No Resource [address] [place] [address] Hospital Follow-Up (1wk hd/fu appt needed ... Allergies Active Allergy Reactions Criticality Noted Date Comments Acetazolamide 05/22/2017 Percodan Psych complications 08/25/2003 Shakes really bad documented as of this encounter (statuses as of 01/28/2024) Medications LiquaCel Oral Liquid Take 30 mL by mouth in the morning and 30 mL before bedtime. 1800 mL 01/23/20 24 025 Active Carisoprodol 350 MG Oral Tablet (Soma) [...] in the morning. 6 mL 01/23/20 24 025 Active oxyCODONE HCl 5 MG Oral Tablet (Oxy IR) Take 1 Tablet by mouth every 4 hours as needed for Pain, Severe (can take 1/2 tab, 2.5 mg for moderate pain, contination of pain therapy). 15 Tablet 01/23/20 24 Active Acetaminophen 325 MG Oral Tablet (Tylenol) Take 2 Tablets by mouth every 6 hours. 30 Tablet 01/28/20 24 Active Cephalexin 500 MG Oral Capsule (Keflex) Take 1 Capsule by mouth in the morning and 1 Capsule at noon and 1 Capsule before bedtime. Do all this for 3 days. for 7 days.. 9 Capsule 01/28/20 24 024 Active CHILDRENS ASPIRIN 81 MG OR CHEW 1 TABLET DAILY 30 0 10/18/19 04 Suspended SPACE CHAMBER DEVIIndications: COPD exacerbation (HCC) use with inhaler 1 0 10/27/19 06 Suspended Additional Information Patient not taking.Reported on 09/09/2023 Albuterol Sulfate (2.5 MG/3ML) 0.083% Inhalation Nebulization Solution (Proventil)Indic ations:COPD, moderate (HCC) Inhale 1 Vial via nebulizer every 6 hours as needed for Wheezing. 300 mL 3 06/30/19 23 Suspended Additional Information Patient not taking.Reported on 01/19/2024 Ventolin HFA 108 (90 Base) MCG/ACT Inhalation Aerosol SolutionIndicati ons:COPD, moderate (HCC) Inhale 2 Puffs by mouth every 4 hours as needed for Wheezing. 18 g 1 02/20/19 24 Suspended Simvastatin 20 MG Oral Tablet (Zocor)Indicatio ns:Mixed dyslipidemia Take 1 Tablet by mouth in the morning. In the morning.. 90 Tablet 1 07/17/19 24 Suspended Losartan Potassium 50 MG Oral Tablet (Cozaar)Indicati ons:Hypertensive kidney disease with stage 3b chronic kidney disease (HCC) Take 1 Tablet by mouth in the morning. 30 Tablet 5 12/10/19 24 Suspended Tiotropium [place] Monohydrate 18 MCG Inhalation Capsule (Spiriva HandiHaler)Indic ations:COPD, moderate (HCC) inhale contents of 1 capsule by mouth once daily 90 Capsule 1 01/03/20 24 Suspended documented as of this encounter (statuses as of 01/28/2024) Active Problems Problem Noted Date Diagnosed Date [...] as of this encounter (statuses as of 01/28/2024) Resolved Problems Problem Noted Date Diagnosed Date [...] as of this encounter (statuses as of 01/28/2024) Immunizations Name Administration Dates Next Due COVID-19 mRNA, LNP-s, No Pre serve, 2-Dose Series (ONEPLE) 04/27/2020,04/06/2020 Pneumococcal Conjugate Vacc, 13 Valent (Prevnar) 05/22/2016 Pneumococcal Polysaccharide PPV23 (Pneumovax) 06/18/2008 Season Influenza, Quad, PF, Adjuvanted, 65+ Yrs, IM (FLUAD) 11/02/2019 Seasonal Influenza Vac., MDV , IM, 0.5 mL (Fluzone) 11/03/2013,11/10/2012,11/05/2011,/0 07/2011,01/02/2010,11/25/2008,01/07/20 08 Seasonal Influenza, PF, 6 M [...] encounter Miscellaneous Notes * Telephone Encounter - Jesisca Ceron OSA - 01/28/2024 12:13 PM EST Order RETURN APPT [IP355] (Order [id number]) Aleida Sierra 01/18/2024 9:37 PM ED to Hosp-Admission Description: 78 year old female Department: [facility] Message Patient Name: ALEIDA SIERRA([id number]) Sex: Female : 1945 PCP: HASEEB RENDON Center: [facility] [place] Level of Service:60974 DE EMERGENCY DEPT VISIT HIGH SEVERITY&THREAT FUNCJ Types of orders made on 01/28/2024: IP Discharge, IP Post Discharge , Medications Order Date:01/28/2024 Ordering User:VAISHALI CARDENAS [[id number]] Attending Provider:Jamie Brooks MD [[id number]] Authorizing Provider: Vaishali Cardenas PAVania [[id number]] Department:[facility][[id number]] Order Specific Information Order: RETURN APPT [CUSTOM: IP355] Order #: [id number]: 1 Priority: Routine Class: Nursing Unit Department (Single Entry) -> Urology Appt Needed Within: (Specify # of Days, Weeks, Months) -> 1 Wk Released on: 01/28/2024 12:02 PM Priority: Routine Class: Nursing Unit Department (Single Entry) -> Urology Appt Needed Within: (Specify # of Days, Weeks, Months) -> 1 Wk documented in this encounter Plan of Treatment Upcoming Encounters Date Type Department Care Team (Late st Contact Info) Description 01/30/2024 10:45 AM EST Office Visit Orthopaedics, [place] [address] [place] [address] Scot Baum MD [address] [place] [address] 06/19/2024 8:40 AM EDT Office Visit Family Practice [facility] [address] [place] [address] Haseeb Rendon DO [address] [place] [address] 08/17/2024 8:00 AM EDT Office Visit Pulmonary Medicine, [facility] [address] [facility] [place] [id number] Humphrey Cormier MD [address] [facility] [address] Scheduled Procedures Name Priority Associated Diagnoses Date/Ti [...] Additional history exists CKD PHOS USE SMARTSET 25711 09/04/202408/18, 05/31/2022, 04/09/2019, Additional history exists CKD HGB USE SMARTSET 81317 01/26/202501/26, 01/26/2024, 01/25/2024, Additional history exists O2 [...] this encounter Medical Devices Implanted Type Area In Processing Instructor Device Identifier Shelf Expiration Date Model / Serial / Lot Patch Xenosure [id number] - [id number] - [id number] Implanted:Qty : 1 on 05/12/2021 by David Boss MD at OR [facility] [place] [facility] Right: Femoral Artery [facility] VASCULAR [facility] [id number] 11/15/2026 E0.8P8 / [id number] / [id number] Graft Stent Viab [id number] - [id number] - [id number] Implanted:Qty : 1 on 05/12/2021 by David Boss MD at OR [facility] Right: Iliac [employer] [id number] 01/06/2024 [id number] / [id number] / [id number] documented as of this encounter Advance Directives * Full Code (Latest Code Status on File) Date Activated Date Inactivated Comments 01/19/2024 12:36 AM This order re flects the patients wishes and were consensually agreed upon. Question Answer Comments Discussion of Advance Direct robert occurred with: Not Discussed due to patient's condition * Full Code Date Activated Date Inactivated Comments 05/12/2021 6:34 PM 05/15/2021 5:22 PM This order r eflects the patients wishes and were consensually agreed upon. Care Teams Data Steward Relationship Specialty Start Date End Date Haseeb Rendon DO [address] [place] [address] PCP - General Family Medicine 11/03/20 documented as of this encounter
--- OUTSIDE RECORDS SUMMARY | 2024-04-10 03:24 | External Medical Summary | Continuity Of Care Document ---
Author Name Unknown Address [address] [address] Organization [facility] () Care Team Providers Care Development Engineer Name Role Phone DO Alonso Amy Primary Care Provider [phone] VITAL SIGNS Date Time Diastolic blood pressure Systolic blood pressure Body height Body weight Temperature SpO2 Blood Sugar Pulse Respirations 77162 210 78097 7 78.00 mm[Hg] - Lying Down 186.00 mm[Hg] - Lying Down 109.80 NI 97.90 Forehead Scan 91.00 % 92.00/ min 18.00/min
--- OUTSIDE RECORDS SUMMARY | 2024-04-10 03:24 | External Medical Summary | Summary of Care ---
Author Name Unknown Organization [facility] Address [address] [place] [address] Phone [phone] Care Team Providers Care Certified Medical Coder Name Role Phone Haseeb Rendon Primary Care Provider Reason for Visit * Reason Onset Date Comments Hospital Follow-Up 01/28/2024 1wk hd/fu luisa t needed aimee Lopez Encounter Details Date Type Department Care Team (Late st Contact Info) Description 01/28/2024 Telephone Urology, [place] [address] [place] [address] Specified, No Resource [address] [place] [address] Hospital Follow-Up (1wk hd/fu appt needed ... Allergies Active Allergy Reactions Criticality Noted Date Comments Acetazolamide 05/22/2017 Percodan Psych complications 08/25/2003 Shakes really bad documented as of this encounter (statuses as of 01/28/2024) Medications CHILDRENS ASPIRIN 81 MG OR CHEW [...] morning. 30 Tablet 5 4 Active Tiotropium [place] Monohydrate 18 MCG Inhalation Capsule (Spiriva HandiHaler)Indic [...] mRNA, LNP-s, No Pre serve, 2-Dose Series ([employer]) 04/27/2020,04/06/2020 Pneumococcal Conjugate Vacc, 13 Valent (Prevnar) [...] Assessment Author No 01/19/2024 1:46 AM Flako Dee, THELMA * Are you blind or do you [...] encounter Miscellaneous Notes * Telephone Encounter - Italia Maloney OSA - 01/28/2024 3:43 PM EST Scheduled message left on answering machine JORGE ALBERTO Moe 3:43 PM 01/28/2024 * Telephone Encounter - Jessica Ceron OSA - 01/28/2024 12:13 PM EST Order RETURN APPT [IP355] (Order [id number]) Aleida Pleitez 01/18/2024 9:37 PM ED to Hosp-Admission Description: 78 year old female Department: [facility] Message Patient Name: ALEIDA PLEITEZ([id number]) Sex: Female : 1945 PCP: HASEEB RENDON Center: [facility] [place] Level of Service:48455 OR EMERGENCY DEPT VISIT HIGH SEVERITY&THREAT FUNCJ Types of orders made on 01/28/2024: IP Discharge, IP Post Discharge , Medications Order Date:01/28/2024 Ordering User:VAISHALI CARDENAS [[id number]] Attending Provider:Jamie Brooks MD [[id number]] Authorizing Provider: Vaishali Cardenas PA-C [[id number]] Department:[facility][[id number]] Order Specific Information Order: RETURN APPT [CUSTOM: IP355] Order #: [id number]: [id number] Priority: Routine Class: Nursing Unit Department [...] 01/30/2024 10:45 AM EST Office Visit Orthopaedics, [place] [address] [place] [address] Scot Baum MD [address] [place] [address] 02/07/2024 10:30 AM EST Office Visit Urology, [place] [address] [place] [address] Zoe Barnard PA-C [address] [place] [address] 06/19/2024 8:40 AM EDT Office Visit Family Practice [facility] [address] [facility] [place] [address] Haseeb Rendon DO [address] [facility] [place] [address] 08/17/2024 8:00 AM EDT Office Visit Pulmonary Medicine, [facility], [address] [place] [address] Humphrey Cormier MD [address] [id number] Scheduled Procedures Name Priority Associated Diagnoses Date/Ti [...] Additional history exists CKD PHOS USE SMARTSET 02096 09/04/202408/18, 05/31/2022, 04/09/2019, Additional history exists CKD HGB USE SMARTSET 98441 01/26/202501/26, 01/26/2024, 01/25/2024, Additional history exists O2 [...] this encounter Medical Devices Implanted Type Area Detention Sergeant Device Identifier Shelf Expiration Date Model / Serial / Lot Patch Xenosure [id number] - [id number] - [id number] Implanted:Qty : 1 on 05/12/2021 by [place] Boss [place] [facility] [place]: Femoral Artery [employer] [id number] 11/15/2026 E0.8P8 / [id number] / [id number] Graft Stent Viab [id number] - [id number] - [id number] Implanted:Qty : 1 on 05/12/2021 by David Boss [place] [facility] [place]: Iliac [employer] [id number] 01/06/2024 [id number] / [id number] / [id number] documented as of this encounter Advance Directives [...] and were consensually agreed upon. Care Teams Certified Medical Coder Relationship Specialty Start Date End Date Hase[place] [address] [place] [address] PCP - General Family Medicine 11/03/20 documented as of this encounter
--- OUTSIDE RECORDS SUMMARY | 2024-04-10 03:24 | External Medical Summary | Continuity Of Care Document ---
Author Name Unknown Address [address] [address] Organization [facility] () Care Team Providers Care Manager Mortgage Name Role Phone DO Alonso Amy Primary Care Provider [phone] Allergies Allergy Reaction Start Date End Date [...] Day 3 0.1 mL 01/29 Active 2023 41500 25594 0 1 time Intrad ermal False Tubersol 5 tub. unit/0.1 mL intradermal injection solution [Tuberculin PPD] 0.1mL Intradermal 1 time For PPD 2nd Step Give 2nd Step PPD Day 1 and Read results Day 3 (schedule 7 days after 1st READ) 0.1mL 02/07 Active 2023 92158 01018 0 1 time Intrad ermal False Oxycodone 5 mg tablet [generic] 5mg By Mouth Every 4 hours as needed for severe pain for pain rate 7-10. For right pubis fracture 5mg 01/27 Inactiv e 2023 00704 89271 1 Every 4 hours as needed By Mouth False OXYCODONE 5 MG TABLET [GENERIC]IM MEDIATE RELEASE 2.5mg By Mouth Every 4 hours as needed tablet po for moderate pain, pain rate 4-6 on pain scale 1-10. For pain 2.5mg 01/27 Inactiv e 2023 Every 4 hours as needed By Mouth False Oxycodone 5 mg tablet [generic] 01/27 Inactiv e 2023 11712 85116 1 Oxycodone 5 mg tablet [generic] 5mg By Mouth Every 4 hours as needed for severe pain for pain rate 7-10. For right pubis fracture 5mg 2023 Active 2023 46618 62226 1 Every 4 hours as needed [...] For Muscle spasms 175mg 2023 Active 2023 53515 25691 1 Every 6 hours as needed By Mouth False Cephalexin 500 mg capsule [generic] 500mg By Mouth Every 8 hours For UTI 500mg 01/30 Active 2023 29779 35765 1 Every 8 hours By Mouth False Aspirin 81 mg chewable tablet [generic] 81 mg By Mouth Once daily For AAA 81 mg 2023 Active 2023 91636 46930 6 Once daily By Mouth False Colace 100 mg capsule 100mg By Mouth Twice daily For constipation 100mg 2023 Active 2023 31883 98819 1 Twice daily By Mouth False Enoxaparin 300 mg/3 mL subcutaneou s solution [generic] 20mg Subcutaneous Once daily For anticoag. 20mg 2023 Active 2023 86571 15839 1 Once daily Subcut aneous False Losartan 50 mg tablet [generic] 50 By Mouth Once daily For HTN 50 2023 Active 2023 41904 75691 9 Once daily By Mouth False Miralax 17 gram/dose oral powder 17 gram By Mouth Once daily For contispation 17 gram 2023 Active 2023 54317 96424 0 Once daily By Mouth False Senna 8.6 mg tablet 2 tabs By Mouth Once daily For constipation 2 tabs 2023 Active 2023 84943 14919 1 Once daily By Mouth False Simvastatin 20 mg tablet [generic] 20 mg By Mouth Once daily For Hyperlipidemi a 20 mg 2023 Active 2023 83931 51956 0 Once daily By Mouth False Spiriva with HandiHaler 18 mcg and inhalation capsules 1 capsule Inhalation Once daily For COPD 1 capsule 2023 Active 2023 03438 64792 1 Once daily Inhala tion False Ventolin HFA 90 mcg/actuati on aerosol inhaler 2 puff Inhalation Every 4 hours as needed For COPD 2 puff 2023 Active 2023 41341 91624 0 Every 4 hours as needed Inhala tion False ProSource No Carb 15 gram-60 kcal/30 mL oral liquid 30ml By Mouth Twice daily For Protien supplement 30ml 2023 Active 2023 08695 20597 5 Twice daily By Mouth False Albuterol sulfate 2.5 mg/3 mL (0.083 %) solution for nebulizatio n [generic] 3 ml Inhalation Every 6 hours as needed For wheezing 3 ml 2023 Active 2023 97912 92529 3 Every 6 hours as needed Inhala tion False Acetaminoph en 325 mg tablet [generic] 650 mg By Mouth Every 6 hours For Mild Pain 650 mg 2023 Active 2023 66472 83071 0 Every 6 hours By Mouth False Tylenol 325 mg tablet 2 tabs By Mouth Every 4 hours as needed For Pain DO NOT EXCEED 3000 MG APAP/24 Hours 2 tabs 2023 Active 2023 61380 73102 0 Every 4 hours as needed By Mouth False Tylenol 325 mg tablet 2 tabs By Mouth Every 4 hours as needed For Fever >100 DO NOT EXCEED 3000 MG APAP/24 Hours 2 tabs 2023 Active 2023 45882 43035 0 Every 4 hours as needed By Mouth False Dulcolax (bisacodyl) 10 mg rectal suppository One Suppository per rectum PRN if Milk of Magnisia ineffective. Give on day 5 of no BM 1 sup 2023 Active 2023 32820 15515 1 Daily as needed Rectal False Fleet Enema 19 gram-7 gram/118 mL Administer per rectum PRN one time if dulcolax suppository not effective. Give on day 6 of no BM 1 2023 Active 2023 64016 56860 6 Daily as needed Rectal False Milk of Magnesia 400 mg/5 mL oral suspension [Magnesium hydroxide] PRN 30ml By Mouth Daily as needed for constipation one time daily if no BM, on day 4 of no BM (PRN refer to instructions) For Constipation 30 mL 2023 Active 2023 69789 88152 6 Daily as needed By Mouth False Problems Code Description Start Date End Date Status J44.9 Chronic obstructive pulmonary disease, unspecified 01/28/2024 Active I10. Essential (primary) hypertension 01/28/2024 Active S32.511D Fracture of superior rim of right pubis, subsequent encounter for fracture with routine healing 01/28/2024 Active S32.14XD Type 1 fracture of s acrum, subsequent encounter for fracture with routine healing [...] Temperature SpO2 Blood Sugar Pulse Respirations 210 64225 7 78.00 mm[Hg] - Lying Down 186.00 mm[Hg] - Lying Down 109.80 NI 97.90 Forehead Scan 91.00 % 92.00/ min 18.00/min 210 18236 1 74.00 mm[Hg] - Lying Down 147.00 mm[Hg] - Lying Down 85.00/ min 211 96524 2 72.00 mm[Hg] - Sitting 138.00 mm[Hg] - Sitting 98.40 Tympanic 86.00/ min 18.00/min 211 65573 5 69.00 mm[Hg] - Sitting 145.00 mm[Hg] - Sitting 211 70728 9 69.00 mm[Hg] - Sitting 145.00 mm[Hg] - Sitting 211 06950 5 69.00 mm[Hg] - Sitting 145.00 mm[Hg] - Sitting 211 09442 6 69.00 mm[Hg] - Sitting
--- OUTSIDE RECORDS SUMMARY | 2024-04-10 03:24 | External Medical Summary | Continuity Of Care Document ---
Author Name Unknown Address [address] [address] Organization [facility] Andres () Care Team Providers Care Bingo Checker Name Role Phone DO Alonso Amy Primary Care Provider [phone] Allergies Allergy Reaction Start Date End Date [...] pubis fracture 5mg 01/27 Inactiv e 2023 08054 28372 1 Every 4 hours as needed By Mouth False OXYCODONE 5 MG TABLET [GENERIC]IM MEDIATE RELEASE 2.5mg By Mouth Every 4 hours as needed tablet po for moderate pain, pain rate 4-6 on pain scale 1-10. For pain 2.5mg 01/27 Inactiv e 2023 Every 4 hours as needed By Mouth False Oxycodone 5 mg tablet [generic] 01/27 Inactiv e 2023 67474 27761 1 Oxycodone 5 mg tablet [generic] 5mg By Mouth Every 4 hours as needed for severe pain for pain rate 7-10. For right pubis fracture 5mg 2023 0000 Active 2023 83036 74880 1 Every 4 hours as needed By [...] For Muscle spasms 175mg 2023 Active 2023 13913 85969 1 Every 6 hours as needed By Mouth False Cephalexin 500 mg capsule [generic] 500mg By Mouth Every 8 hours For UTI 500mg 01/30 Active 2023 03106 04991 1 Every 8 hours By Mouth False Aspirin 81 mg chewable tablet [generic] 81 mg By Mouth Once daily For AAA 81 mg 2023 Active 2023 16820 25507 6 Once daily By Mouth False Colace 100 mg capsule 100mg By Mouth Twice daily For constipation 100mg 2023 Active 2023 99111 47975 1 Twice daily By Mouth False Enoxaparin 300 mg/3 mL subcutaneou s solution [generic] 20mg Subcutaneous Once daily For anticoag. 20mg 2023 Active 2023 78966 59377 1 Once daily Subcut aneous False Losartan 50 mg tablet [generic] 50 By Mouth Once daily For HTN 50 2023 Active 2023 07926 08879 9 Once daily By Mouth False Miralax 17 gram/dose oral powder 17 gram By Mouth Once daily For contispation 17 gram 2023 Active 2023 10734 29619 0 Once daily By Mouth False Senna 8.6 mg tablet 2 tabs By Mouth Once daily For constipation 2 tabs 2023 Active 2023 06491 14775 1 Once daily By Mouth False Simvastatin 20 mg tablet [generic] 20 mg By Mouth Once daily For Hyperlipidemi a 20 mg 2023 Active 2023 82152 74645 0 Once daily By Mouth False Spiriva with HandiHaler 18 mcg and inhalation capsules 1 capsule Inhalation Once daily For COPD 1 capsule 2023 Active 2023 17293 84299 1 Once daily Inhala tion False Ventolin HFA 90 mcg/actuati on aerosol inhaler 2 puff Inhalation Every 4 hours as needed For COPD 2 puff 2023 Active 2023 01122 09783 0 Every 4 hours as needed Inhala tion False ProSource No Carb 15 gram-60 kcal/30 mL oral liquid 30ml By Mouth Twice daily For Protien supplement 30ml 2023 Active 2023 74156 24058 5 Twice daily By Mouth False Albuterol sulfate 2.5 mg/3 mL (0.083 %) solution for nebulizatio n [generic] 3 ml Inhalation Every 6 hours as needed For wheezing 3 ml 2023 Active 2023 85759 12420 3 Every 6 hours as needed Inhala tion False Acetaminoph en 325 mg tablet [generic] 650 mg By Mouth Every 6 hours For Mild Pain 650 mg 2023 Active 2023 23507 32157 0 Every 6 hours By Mouth False VITAL SIGNS Date Time Diastolic blood pressure Systolic blood pressure Body height Body weight Temperature SpO2 Blood Sugar Pulse Respirations 210 26960 7 78.00 mm[Hg] - Lying Down 186.00 mm[Hg] - Lying Down 109.80 NI 97.90 Forehead Scan 91.00 % 92.00/ min 18.00/min 210 27158 1 74.00 mm[Hg] - Lying Down 147.00 mm[Hg] - Lying Down 85.00/ min
--- OUTSIDE RECORDS SUMMARY | 2024-04-10 03:24 | External Medical Summary | Continuity Of Care Document ---
Author Name Unknown Address [address] [address] Organization [facility] Andres () Care Team Providers Care Wood Casket Maker Name Role Phone DO Alonso Amy Primary Care Provider [phone] Allergies Allergy Reaction Start Date End Date [...] pubis fracture 5mg 01/27 Inactiv e 2023 76504 00833 1 Every 4 hours as needed By Mouth False OXYCODONE 5 MG TABLET [GENERIC]IM MEDIATE RELEASE 2.5mg By Mouth Every 4 hours as needed tablet po for moderate pain, pain rate 4-6 on pain scale 1-10. For pain 2.5mg 01/27 Inactiv e 2023 Every 4 hours as needed By Mouth False Oxycodone 5 mg tablet [generic] 01/27 Inactiv e 2023 69591 42906 1 Oxycodone 5 mg tablet [generic] 5mg By Mouth Every 4 hours as needed for severe pain for pain rate 7-10. For right pubis fracture 5mg 2023 0000 Active 2023 70370 67025 1 Every 4 hours as needed By [...] For Muscle spasms 175mg 2023 Active 2023 28709 28329 1 Every 6 hours as needed By Mouth False Cephalexin 500 mg capsule [generic] 500mg By Mouth Every 8 hours For UTI 500mg 01/30 Active 2023 57948 09900 1 Every 8 hours By Mouth False Aspirin 81 mg chewable tablet [generic] 81 mg By Mouth Once daily For AAA 81 mg 2023 Active 2023 34615 17206 6 Once daily By Mouth False Colace 100 mg capsule 100mg By Mouth Twice daily For constipation 100mg 2023 Active 2023 94373 35396 1 Twice daily By Mouth False Enoxaparin 300 mg/3 mL subcutaneou s solution [generic] 20mg Subcutaneous Once daily For anticoag. 20mg 2023 Active 2023 09959 14679 1 Once daily Subcut aneous False Losartan 50 mg tablet [generic] 50 By Mouth Once daily For HTN 50 2023 Active 2023 44361 69424 9 Once daily By Mouth False Miralax 17 gram/dose oral powder 17 gram By Mouth Once daily For contispation 17 gram 2023 Active 2023 87290 91375 0 Once daily By Mouth False Senna 8.6 mg tablet 2 tabs By Mouth Once daily For constipation 2 tabs 2023 Active 2023 49530 01030 1 Once daily By Mouth False Simvastatin 20 mg tablet [generic] 20 mg By Mouth Once daily For Hyperlipidemi a 20 mg 2023 Active 2023 35592 60248 0 Once daily By Mouth False Spiriva with HandiHaler 18 mcg and inhalation capsules 1 capsule Inhalation Once daily For COPD 1 capsule 2023 Active 2023 05392 48674 1 Once daily Inhala tion False Ventolin HFA 90 mcg/actuati on aerosol inhaler 2 puff Inhalation Every 4 hours as needed For COPD 2 puff 2023 Active 2023 11609 09596 0 Every 4 hours as needed Inhala tion False ProSource No Carb 15 gram-60 kcal/30 mL oral liquid 30ml By Mouth Twice daily For Protien supplement 30ml 2023 Active 2023 00344 17863 5 Twice daily By Mouth False Albuterol sulfate 2.5 mg/3 mL (0.083 %) solution for nebulizatio n [generic] 3 ml Inhalation Every 6 hours as needed For wheezing 3 ml 2023 Active 2023 80763 93052 3 Every 6 hours as needed Inhala tion False VITAL SIGNS Date Time Diastolic blood pressure Systolic blood pressure Body height Body weight Temperature SpO2 Blood Sugar Pulse Respirations 210 78428 7 78.00 mm[Hg] - Lying Down 186.00 mm[Hg] - Lying Down 109.80 NI 97.90 Forehead Scan 91.00 % 92.00/ min 18.00/min 210 23082 1 74.00 mm[Hg] - Lying Down 147.00 mm[Hg] - Lying Down 85.00/ min
--- OUTSIDE RECORDS SUMMARY | 2024-04-10 03:24 | External Medical Summary | Continuity Of Care Document ---
Author Name Unknown Address [address] [address] Organization [facility] () Care Team Providers Care Community Advocate Name Role Phone DO Alonso Amy Primary Care Provider [phone] Allergies Allergy Reaction Start Date End Date [...] pubis fracture 5mg 01/27 Inactiv e 2023 16753 34236 1 Every 4 hours as needed By Mouth False OXYCODONE 5 MG TABLET [GENERIC]IM MEDIATE RELEASE 2.5mg By Mouth Every 4 hours as needed tablet po for moderate pain, pain rate 4-6 on pain scale 1-10. For pain 2.5mg 2023 Active 2023 Every 4 hours as needed By Mouth False Oxycodone 5 mg tablet [generic] 01/27 Inactiv e 2023 03372 85454 1 Oxycodone 5 mg tablet [generic] 5mg By Mouth Every 4 hours as needed for severe pain for pain rate 7-10. For right pubis fracture 5mg 2023 Active 2023 98335 13972 1 Every 4 hours as needed By Mouth False VITAL SIGNS Date Time Diastolic blood pressure Systolic blood pressure Body height Body weight Temperature SpO2 Blood Sugar Pulse Respirations 01349 210 94238 7 78.00 mm[Hg] - Lying Down 186.00 mm[Hg] - Lying Down 109.80 NI 97.90 Forehead Scan 91.00 % 92.00/ min 18.00/min 01480 210 70607 1 74.00 mm[Hg] - Lying Down 147.00 mm[Hg] - Lying Down 85.00/ min
--- OUTSIDE RECORDS SUMMARY | 2024-04-10 03:24 | External Medical Summary | Continuity Of Care Document ---
Author Name Unknown Address [address] [address] Organization [facility] () Care Team Providers Care Office Helper Name Role Phone DO Alonso Amy Primary Care Provider [phone] Allergies Allergy Reaction Start Date End Date [...] Day 3 0.1 mL 01/29 Active 2023 66188 14373 0 1 time Intrad ermal False Tubersol 5 tub. unit/0.1 mL intradermal injection solution [Tuberculin PPD] 0.1mL Intradermal 1 time For PPD 2nd Step Give 2nd Step PPD Day 1 and Read results Day 3 (schedule 7 days after 1st READ) 0.1mL 02/07 Active 2023 66663 89257 0 1 time Intrad ermal False Oxycodone 5 mg tablet [generic] 5mg By Mouth Every 4 hours as needed for severe pain for pain rate 7-10. For right pubis fracture 5mg 01/27 Inactiv e 2023 73467 97841 1 Every 4 hours as needed By Mouth False OXYCODONE 5 MG TABLET [GENERIC]IM MEDIATE RELEASE 2.5mg By Mouth Every 4 hours as needed tablet po for moderate pain, pain rate 4-6 on pain scale 1-10. For pain 2.5mg 01/27 Inactiv e 2023 Every 4 hours as needed By Mouth False Oxycodone 5 mg tablet [generic] 01/27 Inactiv e 2023 45857 49518 1 Oxycodone 5 mg tablet [generic] 5mg By Mouth Every 4 hours as needed for severe pain for pain rate 7-10. For right pubis fracture 5mg 2023 Active 2023 40405 82028 1 Every 4 hours as needed By [...] For Muscle spasms 175mg 2023 Active 2023 37260 77820 1 Every 6 hours as needed By Mouth False Cephalexin 500 mg capsule [generic] 500mg By Mouth Every 8 hours For UTI 500mg 01/30 Active 2023 44978 93848 1 Every 8 hours By Mouth False Aspirin 81 mg chewable tablet [generic] 81 mg By Mouth Once daily For AAA 81 mg 2023 Active 2023 52244 58066 6 Once daily By Mouth False Colace 100 mg capsule 100mg By Mouth Twice daily For constipation 100mg 2023 Active 2023 90530 98250 1 Twice daily By Mouth False Enoxaparin 300 mg/3 mL subcutaneou s solution [generic] 20mg Subcutaneous Once daily For anticoag. 20mg 2023 Active 2023 54121 33214 1 Once daily Subcut aneous False Losartan 50 mg tablet [generic] 50 By Mouth Once daily For HTN 50 2023 Active 2023 56596 22972 9 Once daily By Mouth False Miralax 17 gram/dose oral powder 17 gram By Mouth Once daily For contispation 17 gram 2023 Active 2023 05232 01026 0 Once daily By Mouth False Senna 8.6 mg tablet 2 tabs By Mouth Once daily For constipation 2 tabs 2023 Active 2023 75372 96388 1 Once daily By Mouth False Simvastatin 20 mg tablet [generic] 20 mg By Mouth Once daily For Hyperlipidemi a 20 mg 2023 Active 2023 60034 10518 0 Once daily By Mouth False Spiriva with HandiHaler 18 mcg and inhalation capsules 1 capsule Inhalation Once daily For COPD 1 capsule 2023 Active 2023 96864 90098 1 Once daily Inhala tion False Ventolin HFA 90 mcg/actuati on aerosol inhaler 2 puff Inhalation Every 4 hours as needed For COPD 2 puff 2023 Active 2023 11638 53678 0 Every 4 hours as needed Inhala tion False ProSource No Carb 15 gram-60 kcal/30 mL oral liquid 30ml By Mouth Twice daily For Protien supplement 30ml 2023 Active 2023 81432 25495 5 Twice daily By Mouth False Albuterol sulfate 2.5 mg/3 mL (0.083 %) solution for nebulizatio n [generic] 3 ml Inhalation Every 6 hours as needed For wheezing 3 ml 2023 Active 2023 33427 31646 3 Every 6 hours as needed Inhala tion False Acetaminoph en 325 mg tablet [generic] 650 mg By Mouth Every 6 hours For Mild Pain 650 mg 2023 Active 2023 95883 53566 0 Every 6 hours By Mouth False Tylenol 325 mg tablet 2 tabs By Mouth Every 4 hours as needed For Pain DO NOT EXCEED 3000 MG APAP/24 Hours 2 tabs 2023 Active 2023 42404 89974 0 Every 4 hours as needed By Mouth False Tylenol 325 mg tablet 2 tabs By Mouth Every 4 hours as needed For Fever >100 DO NOT EXCEED 3000 MG APAP/24 Hours 2 tabs 2023 Active 2023 68063 73095 0 Every 4 hours as needed By Mouth False Dulcolax (bisacodyl) 10 mg rectal suppository One Suppository per rectum PRN if Milk of Magnisia ineffective. Give on day 5 of no BM 1 sup 2023 Active 2023 53974 64971 1 Daily as needed Rectal False Fleet Enema 19 gram-7 gram/118 mL Administer per rectum PRN one time if dulcolax suppository not effective. Give on day 6 of no BM 1 2023 Active 2023 92356 70874 6 Daily as needed Rectal False Milk of Magnesia 400 mg/5 mL oral suspension [Magnesium hydroxide] PRN 30ml By Mouth Daily as needed for constipation one time daily if no BM, on day 4 of no BM (PRN refer to instructions) For Constipation 30 mL 2023 Active 2023 20812 93752 6 Daily as needed By Mouth False VITAL SIGNS Date Time Diastolic blood pressure Systolic blood pressure Body height Body weight Temperature SpO2 Blood Sugar Pulse Respirations 210 30513 7 78.00 mm[Hg] - Lying Down 186.00 mm[Hg] - Lying Down 109.80 NI 97.90 Forehead Scan 91.00 % 92.00/ min 18.00/min 210 00546 1 74.00 mm[Hg] - Lying Down 147.00 mm[Hg] - Lying Down 85.00/ min
--- OUTSIDE RECORDS SUMMARY | 2024-04-10 03:24 | External Medical Summary ---
Author Name Unknown Address Unknown Organization K01[place] [place] [address] [place] [address] Laboratory Report Ordering Provider Test Date Status MIRANDA DAVID 01/27/2024 03:54:00 Final Observation Date Value Abnormality Reference (Units ) Status WBC, Total 01/27/2024 03:54:00 6.67 4.00-10.80 (K/uL) Final RBC 01/27/2024 03:54:00 2.84 3.85-5.15 (M/uL) Final Hemoglobin 01/27/2024 03:54:00 8.7 Below low normal 12.0-15.3 (g/dL) Final HCT 01/27/2024 03:54:00 27.8 Below low normal 36.0-45.2 (%) Final MCV 01/27/2024 03:54:00 97.9 81.5-97.5 (fL) Final MCH 01/27/2024 03:54:00 30.6 27.0-34.0 (pg) Final MCHC 01/27/2024 03:54:00 31.3 32.0-36.0 (g/dL) Final RDW 01/27/2024 03:54:00 13.1 11.5-15.5 (%) Final Platelets 01/27/2024 03:54:00 274 140-400 (K/uL) Final MPV 01/27/2024 03:54:00 10.3 6.6-11.1 (fL) Final Nucleated erythrocytes/100 leukocytes [Ratio] in Blood by Automated count 01/27/2024 03:54:00 0 <=0 (/100 WBCs) Final Performing Location [facility] [place] [address] [address]
--- OUTSIDE RECORDS SUMMARY | 2024-04-10 03:24 | External Medical Summary ---
Author Name Unknown Address Unknown Organization K01:[facility] [place] [address] [place] [address] Laboratory Report Ordering Provider Test Date Status MIRANDA DAVID 01/23/2024 06:46:00 Final Observation Date Value Abnormality Reference (Units ) Status WBC, Total 01/23/2024 06:46:00 9.75 4.00-10.80 (K/uL) Final RBC 01/23/2024 06:46:00 2.93 3.85-5.15 (M/uL) Final Hemoglobin 01/23/2024 06:46:00 9.3 Below low normal 12.0-15.3 (g/dL) Final HCT 01/23/2024 06:46:00 28.9 Below low normal 36.0-45.2 (%) Final MCV 01/23/2024 06:46:00 98.6 81.5-97.5 (fL) Final MCH 01/23/2024 06:46:00 31.7 27.0-34.0 (pg) Final MCHC 01/23/2024 06:46:00 32.2 32.0-36.0 (g/dL) Final RDW 01/23/2024 06:46:00 13.2 11.5-15.5 (%) Final Platelets 01/23/2024 06:46:00 184 140-400 (K/uL) Final MPV 01/23/2024 06:46:00 10.2 6.6-11.1 (fL) Final Nucleated erythrocytes/100 leukocytes [Ratio] in Blood by Automated count 01/23/2024 06:46:00 0 <=0 (/100 WBCs) Final Performing Location [facility] [place] [address] [place] [address]
--- OUTSIDE RECORDS SUMMARY | 2024-04-10 03:24 | External Medical Summary ---
Author Name Unknown Address Unknown Organization K01:[facility] [place] [address] [place] [address] Laboratory Report Ordering Provider Test Date Status PATRICE ECHAVARRIA 01/22/2024 13:59:36 Final Observation Date Value Abnormality Reference (Units ) Status Color of Urine by Auto 01/22/2024 13:59:36 Light Yellow Colorless, Light Yellow, Yellow, Dark Yellow Final Clarity, Urine 01/22/2024 13:59:36 Clear Clear Final Glucose [Mass/volume] in Urine by Automated test strip 01/22/2024 13:59:36 Negative Negative (mg/dL) Final Bilirubin.total [Presence] in Urine by Automated test strip 01/22/2024 13:59:36 Negative Negative Final Ketones [Mass/volume] in Urine by Automated test strip 01/22/2024 13:59:36 15 Abnormal Negative (mg/dL) Final Specific gravity, Urine 01/22/2024 13:59:36 1.020 1.003-1.030 Final Hemoglobin [Presence] in Urine by Automated test strip 01/22/2024 13:59:36 Moderate Abnormal Negative Final pH, Urine 01/22/2024 13:59:36 6.0 5.0-7.5 (Units) Final Protein [Mass/volume] in Urine by Automated test strip 01/22/2024 13:59:36 Trace Abnormal Negative (mg/dL) Final Urobilinogen [Mass/volume] in Urine by Automated test strip 01/22/2024 13:59:36 Normal Normal (mg/dL) Final Nitrite [Presence] in Urine by Automated test strip 01/22/2024 13:59:36 Positive Abnormal Negative Final Leukocyte esterase [Presence] in Urine by Automated test strip 01/22/2024 13:59:36 Large Abnormal Negative Final RBC, Urine 01/22/2024 13:59:36 20-29 Abnormal 0-2 (/HPF) Final WBC, Urine 01/22/2024 13:59:36 30-49 Abnormal 0-2 (/HPF) Final Bacteria [#/area] in Urine sediment by Microscopy high power field 01/22/2024 13:59:36 >200 Abnormal 0-25 (/HPF) Final Hyaline casts, Urine 01/22/2024 13:59:36 1-4 Abnormal None (/LPF) Final CULTURE, URINE - [facility] 01/22/2024 13:59:36 Final Quantitative urine culture t o be performed Performing Location [facility] [place] - [address] [facility] [address]
--- OUTSIDE RECORDS SUMMARY | 2024-04-10 03:25 | External Medical Summary ---
Author Name Unknown Address Unknown Organization K01:[facility] [place] [facility] [address] [place] [address] Laboratory Report Ordering Provider Test Date Status CHRISS PERRIN 01/19/2024 03:29:00 Final Observation Date Value Abnormality Reference (Units ) Status BUN 01/19/2024 03:29:00 25 Above high normal 6-20 (mg/dL) Final Creatinine 01/19/2024 03:29:00 1.4 Above high normal 0.5-1.0 (mg/dL) Final Glomerular filtration rate/1.73 sq M.predicted [Volume Rate/Area] in Serum, Plasma or Blood by Creatinine-based formula (CKD-EPI) 01/19/2024 03:29:00 38 Below low normal >=60 (mL/min) Final eGFR is calculated based on the CKD-EPI 2020 equation. Sodium 01/19/2024 03:29:00 135 135-146 (m mol/L) Final Potassium 01/19/2024 03:29:00 4.7 3.5-5.1 (m mol/L) Final Cl 01/19/2024 03:29:00 103 98-107 (mm ol/L) Final CO2 01/19/2024 03:29:00 21 Below low normal 22- 32 (mmol/L) Final Anion gap 01/19/2024 03:29:00 11 7-15 (mmol /L) Final Glucose 01/19/2024 03:29:00 100 70-120 (mg /dL) Final Calcium 01/19/2024 03:29:00 8.5 8.4-10.2 ( mg/dL) Final Performing Location [facility] [place] [address] [place] [address]
--- OUTSIDE RECORDS SUMMARY | 2024-04-10 03:25 | External Medical Summary ---
Author Name Unknown Address Unknown Organization K01:[facility] [place] - [address] [facility] [address] Laboratory Report Ordering Provider Test Date Status CHRISS PERRIN 01/19/2024 01:08:23 Final SCREENING Observation Date Value Abnormality Reference (Units ) Status SARS Coronavirus 2 01/19/2024 01:08:23 Negative N egative Final 2019 Novel Coronavirus not d etected.

This express test was developed and its performance characteristics determined by [employer]. It has not been cleared or approved [...] (RT-PCR) test, or a Centers for Disease Control-acceptable equivalent. The test is performed in a high complexity Clinical Laboratory Improvement Amendments-(CLIA) certified laboratory. The test is acceptable for SARS-CoV-2 diagnosis, surveillance, and travel within the [place] and to most countries. Please check with local testing authorities about requirements before travel.

The validation of bronchial specimens, tracheal aspirates, and sputum for this assay was developed and performance characteristics determined by [facility] [facility]. The validation of alternate specimen types has not been cleared or approved by the U.S. Food and Drug Administration (FDA). It has been determined that such clearance is not necessary. Performing Location [facility]ORY [facility] [place] - [address] [place] [address]
--- OUTSIDE RECORDS SUMMARY | 2024-04-10 03:25 | External Medical Summary ---
Author Name Unknown Address Unknown Organization K01:[facility] [place] [address] [place] [address] Laboratory Report Ordering Provider Test Date Status CHRISS PERRIN 01/19/2024 13:22:00 Final Observation Date Value Abnormality Reference (Units ) Status WBC, Total 01/19/2024 13:22:00 8.31 4.00-10.80 (K/uL) Final RBC 01/19/2024 13:22:00 3.07 3.85-5.15 (M/uL) Final Hemoglobin 01/19/2024 13:22:00 9.9 Below low normal 12.0-15.3 (g/dL) Final HCT 01/19/2024 13:22:00 30.5 Below low normal 36.0-45.2 (%) Final MCV 01/19/2024 13:22:00 99.3 81.5-97.5 (fL) Final MCH 01/19/2024 13:22:00 32.2 27.0-34.0 (pg) Final MCHC 01/19/2024 13:22:00 32.5 32.0-36.0 (g/dL) Final RDW 01/19/2024 13:22:00 13.7 11.5-15.5 (%) Final Platelets 01/19/2024 13:22:00 143 140-400 (K/uL) Final MPV 01/19/2024 13:22:00 10.5 6.6-11.1 (fL) Final Nucleated erythrocytes/100 leukocytes [Ratio] in Blood by Automated count 01/19/2024 13:22:00 0 <=0 (/100 WBCs) Final Performing Location [facility] [place] - [address] [address]
--- OUTSIDE RECORDS SUMMARY | 2024-04-10 03:25 | External Medical Summary ---
Author Name Unknown Address Unknown Organization K01:[facility]ORY [facility] - [address] [place] [address] Laboratory Report Ordering Provider Test Date Status CHRISS PERRIN 01/19/2024 22:57:00 Final Observation Date Value Abnormality Reference (Units ) Status WBC, Total 01/19/2024 22:57:00 8.91 4.00-10.80 (K/uL) Final RBC 01/19/2024 22:57:00 3.14 3.85-5.15 (M/uL) Final Hemoglobin 01/19/2024 22:57:00 9.9 Below low normal 12.0-15.3 (g/dL) Final HCT 01/19/2024 22:57:00 31.2 Below low normal 36.0-45.2 (%) Final MCV 01/19/2024 22:57:00 99.4 81.5-97.5 (fL) Final MCH 01/19/2024 22:57:00 31.5 27.0-34.0 (pg) Final MCHC 01/19/2024 22:57:00 31.7 32.0-36.0 (g/dL) Final RDW 01/19/2024 22:57:00 13.4 11.5-15.5 (%) Final Platelets 01/19/2024 22:57:00 141 140-400 (K/uL) Final MPV 01/19/2024 22:57:00 10.3 6.6-11.1 (fL) Final Nucleated erythrocytes/100 leukocytes [Ratio] in Blood by Automated count 01/19/2024 22:57:00 0 <=0 (/100 WBCs) Final Performing Location [facility]ORY [facility] - [address] [place] [address]
--- OUTSIDE RECORDS SUMMARY | 2024-04-10 03:25 | External Medical Summary ---
Author Name Unknown Address Unknown Organization K01:LAB[facility]ATORY [place] [address] [address] [facility] [address] Laboratory Report Ordering Provider Test Date Status CHRISS PERRIN 01/19/2024 01:03:12 Final Cutoff Concentrations:
Drug Level
Amphetamines 500 ng/mL
Benzodiazepines 100 ng/mL
Cannabinoids 50 ng/mL
Cocaine Metabolite 150 ng/mL
Fentanyl 1 ng/mL
Hydrocodone / Hydromorphone 300 ng/mL
Methadone Metabolite 100 ng/mL
Morphine / Codeine 300 ng/mL
Oxycodone / Oxymorphone 100 ng/mL

Screening results are presumptive and can only be used for medical purposes. Confirmatory testing is available upon request. Observation Date Value Abnormality Reference (Units ) Status Amphetamines, Urine screen 01/19/2024 01:03:12 Negative Negative Final Benzodiazepines, Urine screen 01/19/2024 01:03:12 Negative Negative Final Cannabinoids, Urine screen 01/19/2024 01:03:12 Negative Negative Final Cocaine Metabolite, Urine screen 01/19/2024 01:03:12 Negative Negative Final fentaNYL [Presence] in Urine by Screen method 01/19/2024 01:03:12 Positive Abnormal Negative Final HYDROcodone [Presence] in Urine by Screen method 01/19/2024 01:03:12 Negative Negative Final 4-Vvgyjspmvf-6,5-Dimeth yl-3,3-Diphenylpyrrolid ine (EDDP) [Presence] in Urine 01/19/2024 01:03:12 Negative Negative Final Opiates, Urine screen 01/19/2024 01:03:12 Positive Abnormal Negative Final oxyCODONE [Presence] in Urine by Screen method 01/19/2024 01:03:12 Negative Negative Final Performing Location [place] [facility] [place] [address] [facility] [id number]
--- OUTSIDE RECORDS SUMMARY | 2024-04-10 03:25 | External Medical Summary ---
Author Name Unknown Address Unknown Organization K01:LABORATORY [facility] [place] - [address] [facility] [address] [facility] [address] [address] Laboratory Report Ordering Provider Test Date Status CHRISS PERRIN 01/21/2024 09:24:00 Final Observation Date Value Abnormality Reference (Units ) Status LMW Heparin [Units/volume] in Platelet poor plasma by Chromogenic method 01/21/2024 09:24:00 0.45 Above high normal <0.10 (IU/mL) Final Low molecular weight heparin 's therapeutic range is 0.6 - 1.00 I.U./mL. Performing Location LABORATORY [facility] [place] - [address] [place] [address]
--- OUTSIDE RECORDS SUMMARY | 2024-04-10 03:25 | External Medical Summary ---
Author Name Unknown Address Unknown Organization K01:[place] [facility] [place] [address] [place] [address] Laboratory Report Ordering Provider Test Date Status CHRISS PERRIN 01/19/2024 03:29:00 Final Observation Date Value Abnormality Reference (Units ) Status WBC, Total 01/19/2024 03:29:00 8.44 4.00-10.80 (K/uL) Final RBC 01/19/2024 03:29:00 3.28 3.85-5.15 (M/uL) Final Hemoglobin 01/19/2024 03:29:00 10.4 Below low normal 12.0-15.3 (g/dL) Final HCT 01/19/2024 03:29:00 32.0 Below low normal 36.0-45.2 (%) Final MCV 01/19/2024 03:29:00 97.6 81.5-97.5 (fL) Final MCH 01/19/2024 03:29:00 31.7 27.0-34.0 (pg) Final MCHC 01/19/2024 03:29:00 32.5 32.0-36.0 (g/dL) Final RDW 01/19/2024 03:29:00 13.2 11.5-15.5 (%) Final Platelets 01/19/2024 03:29:00 146 140-400 (K/uL) Final MPV 01/19/2024 03:29:00 10.8 6.6-11.1 (fL) Final Nucleated erythrocytes/100 leukocytes [Ratio] in Blood by Automated count 01/19/2024 03:29:00 0 <=0 (/100 WBCs) Final Performing Location [place] [facility] [place] [address] [place] [address]
--- OUTSIDE RECORDS SUMMARY | 2024-04-10 03:25 | External Medical Summary ---
Author Name Unknown Address Unknown Organization K01:LAB[place]ATORY [facility] [place] - [address] [address] Laboratory Report Ordering Provider Test Date Status MYLES BLANTON 01/22/2024 09:31:00 Final Observation Date Value Abnormality Reference (Units ) Status LMW Heparin [Units/volume] in Platelet poor plasma by Chromogenic method 01/22/2024 09:31:00 0.33 Above high normal <0.10 (IU/mL) Final Low molecular weight heparin 's therapeutic range is 0.6 - 1.00 I.U./mL. Performing Location LAB[facility]ATORY [facility] [place] - [address] [place] [address]
--- OUTSIDE RECORDS SUMMARY | 2024-04-10 03:25 | External Medical Summary ---
Author Name Unknown Address Unknown Organization K01:LABORATORY [facility] [place] - [facility] [address] [place] [address] Laboratory Report Ordering Provider Test Date Status CHRISS PERRIN 01/20/2024 04:50:00 Final Observation Date Value Abnormality Reference (Units ) Status BUN 01/20/2024 04:50:00 27 Above high normal 6-20 (mg/dL) Final Creatinine 01/20/2024 04:50:00 1.7 Above high normal 0.5-1.0 (mg/dL) Final Glomerular filtration rate/1.73 sq M.predicted [Volume Rate/Area] in Serum, Plasma or Blood by Creatinine-based formula (CKD-EPI) 01/20/2024 04:50:00 30 Below low normal >=60 (mL/min) Final eGFR is calculated based on the CKD-EPI 2020 equation. Sodium 01/20/2024 04:50:00 134 Below low normal 135 -146 (mmol/L) Final Potassium 01/20/2024 04:50:00 4.6 3.5-5.1 (m mol/L) Final Cl 01/20/2024 04:50:00 102 98-107 (mm ol/L) Final CO2 01/20/2024 04:50:00 23 22-32 (mmo l/L) Final Anion gap 01/20/2024 04:50:00 9 7-15 (mmol /L) Final Glucose 01/20/2024 04:50:00 94 70-120 (mg /dL) Final Calcium 01/20/2024 04:50:00 8.6 8.4-10.2 ( mg/dL) Final Performing Location LABORATORY [facility] [place] - [address] [place] [address]
--- OUTSIDE RECORDS SUMMARY | 2024-04-10 03:25 | External Medical Summary ---
Author Name Unknown Address Unknown Organization K01:[place] [facility] [place] [address] [place] [address] Laboratory Report Ordering Provider Test Date Status CHRISS PERRIN 01/19/2024 01:03:12 Final Observation Date Value Abnormality Reference (Units) Status Color of Urine by Auto 01/19/2024 01:03:12 Light Yellow Colorless, Light Yellow, Yellow, Dark Yellow Final Clarity, Urine 01/19/2024 01:03:12 Clear Clear Final Glucose [Mass/volume] in Urine by Automated test strip 01/19/2024 01:03:12 Negative Negative (mg/dL) Final Bilirubin.total [Presence] in Urine by Automated test strip 01/19/2024 01:03:12 Negative Negative Final Ketones [Mass/volume] in Urine by Automated test strip 01/19/2024 01:03:12 Negative Negative (mg/dL) Final Specific gravity, Urine 01/19/2024 01:03:12 1.033 Above high normal 1.003-1.030 Final Hemoglobin [Presence] in Urine by Automated test strip 01/19/2024 01:03:12 Small Abnormal Negative Final pH, Urine 01/19/2024 01:03:12 6.0 5.0-7.5 (Units) Final Protein [Mass/volume] in Urine by Automated test strip 01/19/2024 01:03:12 Negative Negative (mg/dL) Final Urobilinogen [Mass/volume] in Urine by Automated test strip 01/19/2024 01:03:12 Normal Normal (mg/dL) Final Nitrite [Presence] in Urine by Automated test strip 01/19/2024 01:03:12 Negative Negative Final Leukocyte esterase [Presence] in Urine by Automated test strip 01/19/2024 01:03:12 Negative Negative Final RBC, Urine 01/19/2024 01:03:12 3-5 Abnormal 0-2 (/HPF) Final WBC, Urine 01/19/2024 01:03:12 6-9 Abnormal 0-2 (/HPF) Final Bacteria [#/area] in Urine sediment by Microscopy high power field 01/19/2024 01:03:12 0-25 0-25 (/HPF) Final CULTURE, URINE - [facility] 01/19/2024 01:03:12 Final Culture not indicated by uri nalysis results\[id number]\ Performing Location [place] [facility] [place] [facility] [address] [facility] [address]
--- OUTSIDE RECORDS SUMMARY | 2024-04-10 03:25 | External Medical Summary ---
Author Name Unknown Address Unknown Organization K01:[place] [facility] [place] [address] [place] [address] Laboratory Report Ordering Provider Test Date Status THEREAS RODRIGUES 01/22/2024 07:48:00 Final Observation Date Value Abnormality Reference (Units ) Status WBC, Total 01/22/2024 07:48:00 15.92 Above high normal 4.00-10.80 (K/uL) Final RBC 01/22/2024 07:48:00 3.02 3.85-5.15 (M/uL) Final Hemoglobin 01/22/2024 07:48:00 9.3 Below low normal 12.0-15.3 (g/dL) Final HCT 01/22/2024 07:48:00 29.8 Below low normal 36.0-45.2 (%) Final MCV 01/22/2024 07:48:00 98.7 81.5-97.5 (fL) Final MCH 01/22/2024 07:48:00 30.8 27.0-34.0 (pg) Final MCHC 01/22/2024 07:48:00 31.2 32.0-36.0 (g/dL) Final RDW 01/22/2024 07:48:00 13.1 11.5-15.5 (%) Final Platelets 01/22/2024 07:48:00 180 140-400 (K/uL) Final MPV 01/22/2024 07:48:00 10.1 6.6-11.1 (fL) Final Nucleated erythrocytes/100 leukocytes [Ratio] in Blood by Automated count 01/22/2024 07:48:00 0 <=0 (/100 WBCs) Final Performing Location [place] [facility] [place] [address] [address]
--- OUTSIDE RECORDS SUMMARY | 2024-04-10 03:25 | External Medical Summary ---
Author Name Unknown Address Unknown Organization K01:[place] [facility] [place] [facility] [address] [place] [address] Laboratory Report Ordering Provider Test Date Status FAZAL PEDRAZA 01/21/2024 08:06:00 Final Observation Date Value Abnormality Reference (Units ) Status WBC, Total 01/21/2024 08:06:00 13.85 Above high normal 4.00-10.80 (K/uL) Final RBC 01/21/2024 08:06:00 3.19 3.85-5.15 (M/uL) Final Hemoglobin 01/21/2024 08:06:00 10.1 Below low normal 12.0-15.3 (g/dL) Final HCT 01/21/2024 08:06:00 32.4 Below low normal 36.0-45.2 (%) Final MCV 01/21/2024 08:06:00 101.6 81.5-97.5 (fL) Final MCH 01/21/2024 08:06:00 31.7 27.0-34.0 (pg) Final MCHC 01/21/2024 08:06:00 31.2 32.0-36.0 (g/dL) Final RDW 01/21/2024 08:06:00 12.9 11.5-15.5 (%) Final Platelets 01/21/2024 08:06:00 165 140-400 (K/uL) Final MPV 01/21/2024 08:06:00 10.5 6.6-11.1 (fL) Final Nucleated erythrocytes/100 leukocytes [Ratio] in Blood by Automated count 01/21/2024 08:06:00 0 <=0 (/100 WBCs) Final Performing [place] [facility] [place] [address] [address]
--- OUTSIDE RECORDS SUMMARY | 2024-04-10 03:25 | External Medical Summary ---
Author Name Unknown Address Unknown Organization K01:[place] [facility] [place] [facility] [address] [place] [address] Laboratory Report Ordering Provider Test Date Status THERESA RODRIGUES 01/22/2024 07:48:00 Final Observation Date Value Abnormality Reference (Units ) Status BUN 01/22/2024 07:48:00 44 Above high normal 6-20 (mg/dL) Final Creatinine 01/22/2024 07:48:00 1.6 Above high normal 0.5-1.0 (mg/dL) Final Glomerular filtration rate/1.73 sq M.predicted [Volume Rate/Area] in Serum, Plasma or Blood by Creatinine-based formula (CKD-EPI) 01/22/2024 07:48:00 33 Below low normal >=60 (mL/min) Final eGFR is calculated based on the CKD-EPI 2020 equation. Sodium 01/22/2024 07:48:00 133 Below low normal 135 -146 (mmol/L) Final Potassium 01/22/2024 07:48:00 4.8 3.5-5.1 (m mol/L) Final Cl 01/22/2024 07:48:00 100 98-107 (mm ol/L) Final CO2 01/22/2024 07:48:00 18 Below low normal 22- 32 (mmol/L) Final Anion gap 01/22/2024 07:48:00 15 7-15 (mmol /L) Final Glucose 01/22/2024 07:48:00 83 70-120 (mg /dL) Final Calcium 01/22/2024 07:48:00 8.3 Below low normal 8.4 -10.2 (mg/dL) Final Performing Location [place] [facility] [place] [address] [place] [address]
--- OUTSIDE RECORDS SUMMARY | 2024-04-10 03:25 | External Medical Summary ---
Author Name Unknown Address Unknown Organization K01:LABORATORY [facility] [place] - [facility] [address] [place] [address] Laboratory Report Ordering Provider Test Date Status FAZAL PEDRAZA 01/20/2024 21:39:00 Final Observation Date Value Abnormality Reference (Units ) Status WBC, Total 01/20/2024 21:39:00 11.01 Above high normal 4.00-10.80 (K/uL) Final RBC 01/20/2024 21:39:00 3.20 3.85-5.15 (M/uL) Final Hemoglobin 01/20/2024 21:39:00 10.1 Below low normal 12.0-15.3 (g/dL) Final HCT 01/20/2024 21:39:00 32.1 Below low normal 36.0-45.2 (%) Final MCV 01/20/2024 21:39:00 100.3 81.5-97.5 (fL) Final MCH 01/20/2024 21:39:00 31.6 27.0-34.0 (pg) Final MCHC 01/20/2024 21:39:00 31.5 32.0-36.0 (g/dL) Final RDW 01/20/2024 21:39:00 13.2 11.5-15.5 (%) Final Platelets 01/20/2024 21:39:00 149 140-400 (K/uL) Final MPV 01/20/2024 21:39:00 10.7 6.6-11.1 (fL) Final Nucleated erythrocytes/100 leukocytes [Ratio] in Blood by Automated count 01/20/2024 21:39:00 0 <=0 (/100 WBCs) Final Performing Location LABORATORY [facility] [place] - [address] [address]
--- OUTSIDE RECORDS SUMMARY | 2024-04-10 03:25 | External Medical Summary ---
Author Name Unknown Address Unknown Organization K01:[place] [facility] [place] [address] [place] [address] Laboratory Report Ordering Provider Test Date Status CHRISS PERRIN 01/19/2024 01:08:23 Final Observation Date Value Abnormality Reference (Units ) Status Methicillin resistant Staphylococcus aureus (MRSA) DNA [Presence] in Nose by DHARA with probe detection 01/19/2024 01:08:23 Negative Negative Final No Methicillin resistant Sta phylococcus aureus detected by PCR (amplified probe). Performing Location LABORATORY [facility] - [address] [place] [address]
--- OUTSIDE RECORDS SUMMARY | 2024-04-10 03:25 | External Medical Summary ---
Author Name Unknown Address Unknown Organization K01:[place]ORY [facility] [place] - [facility] [address] [place] [address] Laboratory Report Ordering Provider Test Date Status CHRISS PERRIN 01/21/2024 03:56:00 Final Observation Date Value Abnormality Reference (Units ) Status BUN 01/21/2024 03:56:00 31 Above high normal 6-20 (mg/dL) Final Creatinine 01/21/2024 03:56:00 1.7 Above high normal 0.5-1.0 (mg/dL) Final Glomerular filtration rate/1.73 sq M.predicted [Volume Rate/Area] in Serum, Plasma or Blood by Creatinine-based formula (CKD-EPI) 01/21/2024 03:56:00 31 Below low normal >=60 (mL/min) Final eGFR is calculated based on the CKD-EPI 2020 equation. Sodium 01/21/2024 03:56:00 135 135-146 (m mol/L) Final Potassium 01/21/2024 03:56:00 4.7 3.5-5.1 (m mol/L) Final Cl 01/21/2024 03:56:00 102 98-107 (mm ol/L) Final CO2 01/21/2024 03:56:00 20 Below low normal 22- 32 (mmol/L) Final Anion gap 01/21/2024 03:56:00 13 7-15 (mmol /L) Final Glucose 01/21/2024 03:56:00 77 70-120 (mg /dL) Final Calcium 01/21/2024 03:56:00 8.6 8.4-10.2 ( mg/dL) Final Performing Location LABORATORY [facility] [place] - [address] [place] [address]
--- OUTSIDE RECORDS SUMMARY | 2024-04-10 03:25 | External Medical Summary ---
Author Name Unknown Address Unknown Organization K01:LABORATORY [place] - [facility] [address] [facility] [address] Laboratory Report Ordering Provider Test Date Status PATRICE ECHAVARRIA 01/22/2024 13:59:36 Final <10,000 colonies/ml normal f yesi, one colony type Observation Date Value Abnormality Reference (Units ) Status Bacteria identified in Specimen by Culture 01/22/2024 13:59:36 [id number]^ESCHE RICHIA COLI Abnormal Final >100,000 colonies/mL Escheri ken coli Bacteria identified in Specimen by Culture 01/22/2024 13:59:36 [id number]^ESCHERICHIA COLI Abnormal Final 10,000 to 100,000 colonies/m L - Second type Escherichia coli Performing Location LABORATORY [place] - [address] [facility] [address] Ordering Provider Test Date Status PATRICE ECHAVARRIA 01/22/2024 13:59:36 Final Observation Date Value Abnormality Reference (Units ) Status Ampicillin 01/22/2024 13:59:36 8 Susceptible Final Cefazolin 01/22/2024 13:59:36 <=4 Susceptible Final Cefepime susceptibility 01/22/2024 13:59:36 <=1 Susceptible Final Ceftriaxone suceptibility 01/22/2024 13:59:36 <=1 Susceptible Final Ciprofloxacin 01/22/2024 13:59:36 <=0.25 Susceptible Final Due to serious side effects, the FDA has advised against using Ciprofloxacin to treat uncomplicated UTIs and respiratory tract infections unless there are no alternative treatment options. Gentamicin susceptibility 01/22/2024 13:59:36 <=1 Susc eptible Final Nitrofurantoin susceptibility 01/22/2024 13:59:36 <=16 Susceptible Final Piperacillin + Tazobactamsusceptibility 01/22/2024 13:59:36 <=4 Susceptible Final TMP-SMZ susceptibility 01/22/2024 13:59:36 <=20 Suscept ible Final Performing Location LABORATORY [place] - [address] [place] [address] Ordering Provider Test Date Status PATRICE ECHAVARRIA 01/22/2024 13:59:36 Final Observation Date Value Abnormality Reference (Units ) Status Ampicillin 01/22/2024 13:59:36 8 Susceptible Final Cefazolin 01/22/2024 13:59:36 <=4 Susceptible Final Cefepime susceptibility 01/22/2024 13:59:36 <=1 Susceptible Final cefOXitin [Susceptibility] 01/22/2024 13:59:36 16 Intermediate Final Ceftriaxone suceptibility 01/22/2024 13:59:36 <=1 Susceptible Final Ciprofloxacin 01/22/2024 13:59:36 <=0.25 Susceptible Final Due to serious side effects, the FDA has advised against using Ciprofloxacin to treat uncomplicated UTIs and respiratory tract infections unless there are no alternative treatment options. Gentamicin susceptibility 01/22/2024 13:59:36 <=1 Susc eptible Final Nitrofurantoin susceptibility 01/22/2024 13:59:36 <=16 Susceptible Final Piperacillin + Tazobactamsusceptibility 01/22/2024 13:59:36 <=4 Susceptible Final TMP-SMZ susceptibility 01/22/2024 13:59:36 <=20 Suscept ible Final Test: Culture, Urine, Quanti tative
Specimen Source: Urine, Clean Catch
Specimen Type: Urine
Specimen Date: 01/22/2024 1359
Result Date: 01/26/2024 1345
Result Status: Final result
Abnormal: Yes
Resulting Lab: LABORATORY [place]
[address]
[place] [address]

CULTURE

>100,000 colonies/mL Escherichia coli (Abnormal)

10,000 to 100,000 colonies/mL - Second type Escherichia coli (Abnormal)

<10,000 colonies/ml normal magdi, one colony type

SUSCEPTIBILITY

Escherichia coli (1) Escherichia coli (2)
METHOD MICROBROTH DILUTIONS MICROBROTH DILUTIONS

AMPICILLIN 8 Susceptible 8 Susceptible
CEFAZOLIN <=4 Susceptible <=4 Susceptible
CEFEPIME <=1 Susceptible <=1 Susceptible
CEFOXITIN 16 Intermediate
CEFTRIAXONE <=1 Susceptible <=1 Susceptible
CIPROFLOXACIN <=0.25 Susceptible <=0.25 Susceptible
[1] [2]
GENTAMICIN <=1 Susceptible <=1 Susceptible
NITROFURANTOIN <=16 Susceptible <=16 Susceptible
PIPERACILLIN TAZOBACTAM <=4 Susceptible <=4 Susceptible
TRIMETH/SULFAMETHOXAZOLE <=20 Susceptible <=20 Susceptible

[1] Due to serious side effects, the FDA has advised against using
Ciprofloxacin to treat uncomplicated UTIs and respiratory tract infections
unless there are no alternative treatment options.

[2] Due to serious side effects, the FDA has advised against using
Ciprofloxacin to treat uncomplicated UTIs and respiratory tract infections
unless there are no alternative treatment options.

null Performing Location LABORATORY [place] - [address] [facility] [address]
--- OUTSIDE RECORDS SUMMARY | 2024-04-10 03:26 | External Medical Summary ---
Author Name Unknown Address Unknown Organization K01:LABORATORY [facility] [place] - [address] [address] Laboratory Report Ordering Provider Test Date Status LAURIEAMANUEL 01/18/2024 22:18:00 Final Warfarin Therapy
INR: 2 .0-3.0 conventional anticoagulation
INR: 2.5- 3.5 high intensity anticoagulation Observation Date Value Abnormality Reference (Units ) Status PT 01/18/2024 22:18:00 14.5 11.6-15.2 (seconds) Final INR 01/18/2024 22:18:00 1.1 0.8-1.2 Final Performing Location LABORATORY [facility] [place] - [address] [address]
--- OUTSIDE RECORDS SUMMARY | 2024-04-10 03:26 | External Medical Summary ---
Author Name Unknown Address Unknown Organization K01:LABORATORY [facility] [place] - [facility] [address] [place] [address] Laboratory Report Ordering Provider Test Date Status AMANUEL SULLIVAN 01/18/2024 22:18:00 Final Observation Date Value Abnormality Reference (Units ) Status BUN 01/18/2024 22:18:00 25 Above high normal 6-20 (mg/dL) Final Creatinine 01/18/2024 22:18:00 1.5 Above high normal 0.5-1.0 (mg/dL) Final Glomerular filtration rate/1.73 sq M.predicted [Volume Rate/Area] in Serum, Plasma or Blood by Creatinine-based formula (CKD-EPI) 01/18/2024 22:18:00 35 Below low normal >=60 (mL/min) Final eGFR is calculated based on the CKD-EPI 2020 equation. Sodium 01/18/2024 22:18:00 134 Below low normal 135 -146 (mmol/L) Final Potassium 01/18/2024 22:18:00 4.9 3.5-5.1 (m mol/L) Final Cl 01/18/2024 22:18:00 103 98-107 (mm ol/L) Final CO2 01/18/2024 22:18:00 22 22-32 (mmo l/L) Final Anion gap 01/18/2024 22:18:00 9 7-15 (mmol /L) Final Glucose 01/18/2024 22:18:00 110 70-120 (mg /dL) Final Calcium 01/18/2024 22:18:00 8.9 8.4-10.2 ( mg/dL) Final Performing Location LABORATORY [facility] [place] - [address] [place] [address]
--- OUTSIDE RECORDS SUMMARY | 2024-04-10 03:26 | External Medical Summary ---
Author Name Unknown Address Unknown Organization K01:LABORATORY [facility] [place] - [address] [place] [address] Laboratory Report Ordering Provider Test Date Status AMANUEL SULLIVAN 01/18/2024 22:18:00 Final Observation Date Value Abnormality Reference (Units ) Status Lactic Acid 01/18/2024 22:18:00 1.0 0.4-2.0 (mmol/L) Final Performing Location LABORATORY [facility] - [address] [place] [address]
--- OUTSIDE RECORDS SUMMARY | 2024-04-10 03:26 | External Medical Summary ---
Author Name Unknown Address Unknown Organization K01:LABORATORY [facility] [place] [facility] - [address] [address] Laboratory Report Ordering Provider Test Date Status LAURIEAMANUEL 01/18/2024 22:18:00 Final Observation Date Value Abnormality Reference (Units ) Status ABO 01/18/2024 22:18:00 A Final RH 01/18/2024 22:18:00 Positive Final RED BLOOD CELL ANTIBODY SCREEN 01/18/2024 22:18:00 Negative Final SPECIMEN EXPIRATION DATE 01/18/2024 22:18:00 01/21/2024 23:59 Final Performing Location LABORATORY [facility] [place] [facility] - [address] [address]
--- OUTSIDE RECORDS SUMMARY | 2024-04-10 03:26 | External Medical Summary ---
Author Name Unknown Address Unknown Organization K01:LABORATORY [facility] [place] - [address] [place] [address] Laboratory Report Ordering Provider Test Date Status AMANUEL SULLIVAN 01/18/2024 22:18:00 Final Observation Date Value Abnormality Reference (Units ) Status WBC, Total 01/18/2024 22:18:00 10.68 4.00-10.80 (K/uL) Final RBC 01/18/2024 22:18:00 3.47 3.85-5.15 (M/uL) Final Hemoglobin 01/18/2024 22:18:00 11.1 Below low normal 12.0-15.3 (g/dL) Final HCT 01/18/2024 22:18:00 33.8 Below low normal 36.0-45.2 (%) Final MCV 01/18/2024 22:18:00 97.4 81.5-97.5 (fL) Final MCH 01/18/2024 22:18:00 32.0 27.0-34.0 (pg) Final MCHC 01/18/2024 22:18:00 32.8 32.0-36.0 (g/dL) Final RDW 01/18/2024 22:18:00 13.2 11.5-15.5 (%) Final Platelets 01/18/2024 22:18:00 145 140-400 (K/uL) Final MPV 01/18/2024 22:18:00 9.9 6.6-11.1 (fL) Final Nucleated erythrocytes/100 leukocytes [Ratio] in Blood by Automated count 01/18/2024 22:18:00 0 <=0 (/100 WBCs) Final Performing Location LABORATORY [facility] [place] - [address] [address]
--- OUTSIDE RECORDS SUMMARY | 2024-04-10 03:26 | External Medical Summary ---
Author Name Unknown Address Unknown Organization K01:LABORATORY [facility] [place] - [address] [place] [address] Laboratory Report Ordering Provider Test Date Status LAURIEAMANUEL 01/18/2024 22:18:00 Final Observation Date Value Abnormality Reference (Units ) Status AST (Aspartate aminotransferase) 01/18/2024 22:18:00 16 10-35 (U/L) Final Performing Location LABORATORY [facility] - [address] [place] [address]
--- OUTSIDE RECORDS SUMMARY | 2024-04-10 03:26 | External Medical Summary ---
Author Name Unknown Address Unknown Organization K01:[facility] [place] [address] [place] [address] Laboratory Report Ordering Provider Test Date Status AMANUEL SULLIVAN 01/18/2024 22:18:00 Final Anticoagulation may affect t esting. Refer to [facility] Test Catalog for a list of effects. Observation Date Value Abnormality Reference (Units ) Status aPTT panel - Platelet poor plasma 01/18/2024 22:18:00 30 21-38 (seconds) Final Performing Location [facility] [place] [address] [place] [address]
[2024-04-10 03:39] LABS: Appearance Urine Turbid (Clear); Bacteria Urine Automated 4+ (None Seen); Bilirubin Urine Negative (Negative); Blood Urine 2+ (Negative); Color Urine Yellow; Epithelial Cell Urine Auto 0-2 /hpf (0-2); Glucose Urine UA Negative (Negative); Ketones Urine Trace (Negative); Leukocyte Esterase Urine 3+ (Negative); Nitrite Urine Positive (Negative); Protein Urine 1+ (Negative); Specific Gravity Urine 1.043 (1.000-1.030); Urobilinogen Urine Negative (Negative); WBC Urine Automated >50 /hpf (0-5); pH Urine 5.5 (4.5-7.5)
[2024-04-10] MEDS: amLODIPine BESYLATE 5 MG TAB PO SCH (04:23)
[2024-04-10] MEDS: HEPARIN SOD 5,000 UNIT/0.5 ML VIAL SQ SCH (05:17)
--- OUTSIDE RECORDS SUMMARY | 2024-04-10 06:21 | External Medical Summary | Summary of Care ---
Author Name Unknown Organization [facility] Address [address] [address] Phone [phone] Care Team Providers Care Sales Incentive Analyst Name Role Phone Maria G Rendon DO Primary Care Provider Reason for Visit * Reason Comments Constipation Encounter Details Date Type Department Care Team (Late st Contact Info) Description 04/09/2024 2:40 PM EST Office Visit Family Practice [facility] [address] [facility] [place] [address] Charity Christopher PA-C [address] [facility] [place] [address] Constipation, unspecified constipation type*; Chronic kidney disease, stage 3b ([facility]) Allergies Active Allergy Reactions Criticality Noted Date Comments Acetazolamide 05/22/2017 Percodan Psych complications 08/25/2003 Shakes really bad documented as of this encounter (statuses as of 04/09/2024) Medications CHILDRENS ASPIRIN 81 MG OR CHEW [...] Wheezing. 18 g 1 4 Active Tiotropium Meridian Monohydrate 18 MCG Inhalation Capsule (Spiriva HandiHaler)Indic ations:COPD, moderate (HCC) inhale contents of 1 capsule by mouth once daily 90 Capsule 1 4 Active Sennosides 8.6 MG Oral Tablet (Senokot) Take 2 Tablets by mouth in the morning. 60 Tablet 4 Active Polyethylene Glycol 3350 17 GM Oral Packet (Miralax) Take 1 Packet by mouth in the morning. 14 Each 4 Active oxyCODONE HCl 5 MG Oral Tablet (Oxy IR) Take 1 Tablet by mouth every 4 hours as needed for Pain, Severe (can take 1/2 tab, 2.5 mg for moderate pain, contination of pain therapy). 15 Tablet 4 Active Additional Information Patient not taking.Reported on 04/09/2024 Acetaminophen 325 MG Oral Tablet (Tylenol) Take [...] as of this encounter (statuses as of 04/09/2024) Active Problems Problem Noted Date Diagnosed Date [...] as of this encounter (statuses as of 04/09/2024) Resolved Problems Problem Noted Date Diagnosed Date [...] as of this encounter (statuses as of 04/09/2024) Immunizations Name Administration Dates Next Due COVID-19 mRNA, LNP-s, No Pre serve, 2-Dose Series ([employer]) 04/27/2020,04/06/2020 Pneumococcal Conjugate Vacc, 13 Valent (Prevnar) [...] Sign Reading Time Taken Comments Blood Pressure 122/71 04/09/2024 2:16 PM EST Pulse 115 04/09/2024 2:16 PM EST Temperature 36.7 C (98 F) 04/09/2024 2:16 PM EST Respiratory Rate - - Oxygen Saturation - - Inhaled Oxygen Concentration - - Weight 43.1 kg (95 lb 1.3 oz) 04/09/2024 2:16 PM EST Height - - Body Mass Index 17.39 01/19/2024 1:39 AM EST documented in this encounter Functional Status * Are you deaf or do you have serious difficulty hearing? Answer Date of Assessment Author No 01/19/2024 1:46 AM EST Flako Iglesias RN * Are you blind or do [...] documented in this encounter Progress Notes * Charity Christopher PA-C - 04/09/2024 2:43 PM EST Images from the original note were not included. History of Present Illness Aleida Sierra is a 78 year old female that presents for Constipation Patient is a 78 year old female who presents with constipation for over a week. Prior to, stools are normal color and consistancy. Had a fall in December and fractured pelvis. Has been doing well since Denies nausea vomiting. Diarrhea. Urination good Physical Exam Vitals: 04/09/24 1416 Temp: 98 F (36.7 C) Pulse: 115 BP: 122/71 BP Readings from Last 3 Encounters: 04/09/24 122/71 03/16/24 110/60 01/28/24 131/64 Wt Readings from Last 3 Encounters: 04/09/24 95 lb 1.3 oz (43.1 kg) 03/16/24 99 lb 4 oz (45 kg) 01/19/24 108 lb (49 kg) General: alert, healthy, no distress, well nourished, well developed, and cooperative Head: Normocephalic, No masses, lesions, tenderness or abnormalities Eye Exam: PERRLA, extraocular movements intact, conjunctiva are pink and non- injected, sclera clear Neck: supple, no adenopathy, no bruits, thyroid normal size, non-tender, without nodularity Heart: regular rate & rhythm, no murmur, and no gallops Lungs: chest symmetric with normal AP diameter, no chest deformities noted, normal respiratory rateand rhythm, no chest wall tenderness, diaphragmatic excursion normal, lungs clear to auscultation Abdomen: abdomen soft, non-tender, normal bowel sounds, no masses or organomegaly, no rebound or guarding, no CVA tenderness, no bladder distention identified, and no bruits I have reviewed the following results: None Assessment and Plan There are no diagnoses linked to this encounter. Wrap-Up Time: I spent a total of 20-29 minutes (exact time 24 mins) on the date of service in preparation, delivery, and documentation of the care provided to Aleida Sierra excluding any time spent in the performance of separately billed services. * Sarah Munoz RN - 04/09/2024 2:20 PM EST Pt has not had a bowel movement in almost 2 weeks. Her abdomin aches. documented in this encounter Plan of Treatment Upcoming Encounters Date Type Department Care Team (Late st Contact Info) Description 06/19/2024 8:40 AM EDT Office Visit Family Practice [facility] [address] [facility] [place] [address] Maria G Rendon, [address] [facility] [place] [address] 07/29/2024 7:30 AM EDT Imaging Radiology [facility] 1st [facility] [place] [address] [place] [address] 07/29/2024 8:00 AM EDT Appointment Vascular Lab [facility], [address] [address] 07/29/2024 9:00 AM EDT Appointment Vascular Lab [facility], [address] [address] 07/29/2024 9:30 AM EDT Appointment Vascular Lab [facility], [address] [address] 07/29/2024 10:30 AM EDT Appointment Vascular Lab [facility] [place] [address] [place] [address] 07/29/2024 11:00 AM EDT Appointment Vascular Lab [facility] [address] [place] [address] 08/12/2024 10:50 AM EDT Office Visit Vascular Surgery, [facility] [address] [facility] [place] [address] David Boss MD [address] [place] [address] 08/17/2024 8:00 AM EDT Office Visit Pulmonary Medicine, [facility] [address] [facility] [place] [address] Humphrey Cormier MD [address] [place] [address] 09/28/2024 11:00 AM EDT Imaging Radiology [facility] 132 [facility] [place] [address] Scheduled Procedures Name Priority Associated Diagnoses [...] history exists Albumin/Creatinine Ratio 05/22/2024 05/23/2023, 05/2017 CKD PHOS USE SMARTSET 30041 09/04/202408/18, 05/31/2022, 04/09/2019, Additional history exists GFR 10/07/2024 04/09/2024, 10/2023, 01/26/2024, Additional history exists Depression Screening 02/25/2025 02/26/2024 O2 ASSESSMENT COMPLETED IN PAST YEAR FOR COPD 03/16/2025 03/16/2024 CKD HGB USE SMARTSET 65989 04/09/202504/09, 01/27/2024, 01/26/2024, Additional history exists DTap/Tdap Vaccines (2 - Td or Tdap) 12/07/2033 12/08/2023, 05/09/2004 Alpha-1 Antitrypsin Completed 05/23/2023 HPV (Gardasil) Vaccine Aged Out No lo nger eligible based on patient's age to complete this topic Hepatitis B Vaccine Aged Out No longe r eligible based on patient's age to complete this topic MENINGOCOCCAL (MENACTRA/MENVEO) Aged Out No longer eligible based on patient's age to complete this topic Meningitis B Vaccine (Bexsero/Trumemba) Aged Out No longer eligible based on patient's age to complete this topic documented as of this encounter Medical Devices Implanted Type Area Apprentice Plumber Device Identifier Shelf Expiration Date Model / Serial / Lot Patch Xenosure [id number] - [id number] - [id number] Implanted:Qty : 1 on 05/12/2021 by David Boss MD at OR [facility] Right: Femoral Artery [employer] [id number] 11/15/2026 E0.8P8 / [id number] / [id number] Graft Stent Viab [id number] - [id number] - [id number] Implanted:Qty : 1 on 05/12/2021 by David Boss MD at OR [facility] Right: Iliac [employer] [id number] 01/06/2024 [id number] / [id number] / [id number] documented as of this encounter Results * XR ABDOMEN 1 VIEW (04/09/2024 3:15 PM EST) Anatomical Region Laterality Modality Abdomen, Pelvis Computed Radiogr aphy 04/09/2024 3:31 PM EST Impressions 04/09/2024 3:29 PM EST IMPRESSION Moderate stool burden with mild diffuse gaseous distention of the colon, suggesting ileus. Narrative 04/09/2024 3:29 PM EST EXAM XR ABDOMEN 1 VIEW-04/09/2024 3:15 pm HISTORY constipation COMPARISON CT scan dated 01/18/2024 TECHNIQUE AP supine radiographs of the abdomen FINDINGS There is mild diffuse gaseous distention of the bowel. There is a moderate stool burden, predominantly in the right colon. Surgical clips and vascular stents are noted. Osseous degenerative changes are noted as well. Procedure Note Jemal Marie MD - 04/09/2024 EXAM XR ABDOMEN 1 VIEW-04/09/2024 3:15 pm HISTORY constipation COMPARISON CT scan dated 01/18/2024 TECHNIQUE AP supine radiographs of the abdomen FINDINGS There is mild diffuse gaseous distention of the bowel. There is amoderate stool burden, predominantly in the right colon. Surgical clipsand vascular stents are noted. Osseous degenerative changes are noted aswell. IMPRESSION IMPRESSION Moderate stool burden with mild diffuse gaseous distention of the colon,suggesting ileus. us Charity Christopher PA-C RADIOLOGY (RAD GENERAL) Final Result * (ABNORMAL) BASIC METABOLIC PANEL (04/09/2024 3:10 PM EST) BUN 25(H) 6 - 20 mg/dL 04/09/2024 4:06 PM EST LAB[facility]ATORY [facility] 56- CREATININE 1.4(H) 0.5 - 1.0 mg/dL 04/09/2024 4:06 PM EST LABORATORY [place] 56- EGFR 38(L) >=60 mL/min 04/09/2024 4:06 PM EST LABORATORY [place] 56- Comment:eGFR is calculated b ased on the CKD-EPI 2020 equation. SODIUM 129(L) 135 - 146 mmol/L 04/09/2024 4:06 PM EST LABORATORY [place] 56- POTASSIUM 4.5 3.5 - 5.1 mmol/L 04/09/2024 4:06 PM [facility] 56- CHLORIDE 89(L) 98 - 107 mmol/L 04/09/2024 4:06 PM [facility] 56- CO2 22 22 - 32 mmol/L 04/09/2024 4:06 PM [facility] 56- ANION GAP 18(H) 7 - 15 mmol/L 04/09/2024 4:06 PM [facility] 56- GLUCOSE 126(H) 70 - 120 mg/dL 04/09/2024 4:06 PM [facility] 56 CALCIUM 9.5 8.4 - 10.2 mg/dL 04/09/2024 4:06 PM [facility] 56- Blood Venous blood specimen / Unknown Venipuncture / Unknown 04/09/2024 3:10 PM EST 04/09/2024 3:10 PM EST us May Ashwin DIAZ LAB BLOOD ORDERABLES Final Res ult [facility] 56- [address] [place], [place] [id number] * (ABNORMAL) CBC (04/09/2024 3:10 PM EST) WBC 12.82(H) 4.00 - 10.80 K/uL 04/09/2024 3:19 PM [facility] 56- RBC 3.73 3.85 - 5.15 M/uL 04/09/2024 3:19 PM [facility] 56- HGB 11.2(L) 12.0 - 15.3 g/dL 04/09/2024 3:19 PM [facility] 56- HCT 33.5(L) 36.0 - 45.2 % 04/09/2024 3:19 PM [facility] 56- MCV 89.8 81.5 - 97.5 fL 04/09/2024 3:19 PM [facility] 56- MCH 30.0 27.0 - 34.0 pg 04/09/2024 3:19 PM [facility] 56- MCHC 33.4 32.0 - 36.0 g/dL 04/09/2024 3:19 PM EST [facility] 56-02 RDW 14.2 11.5 - 15.5 % 04/09/2024 3:19 PM EST [facility] 56-02 PLT 405(H) 140 - 400 K/uL 04/09/2024 3:19 PM EST [facility] 56-02 MPV 9.9 6.6 - 11.1 fL 04/09/2024 3:19 PM EST [facility] 56-02 Blood Venous blood specimen / Unknown Venipuncture / Unknown 04/09/2024 3:10 PM EST 04/09/2024 3:10 PM EST us May Ashwin DIAZ LAB BLOOD ORDERABLES Final Res ult [facility] 56[facility] [address] documented in this encounter Visit Diagnoses Diagnosis Constipation, unspecified constipation type- Primary Chronic kidney disease, stage 3b (HCC) Constipation, unspecified constipation type documented in this encounter Advance Directives * [...] and were consensually agreed upon. Care Teams Sales Incentive Analyst Relationship Specialty Start Date End Date Maria G Rendon DO [address] [facility] [place] [address] PCP - General Family Medicine 11/03/20 documented as of this encounter
--- OUTSIDE RECORDS SUMMARY | 2024-04-10 06:21 | External Medical Summary | Summary of Care ---
Author Name Unknown Organization [facility] Address [address] [facility] [address] Phone [phone] Care Team Providers Care Business Transformation Analyst Name Role Phone Maria G Rendon DO Primary Care Provider Reason for Visit * Reason Comments Outpatient Testing Encounter Details Date Type Department Care Team (Late st Contact Info) Description 04/09/2024 3:20 PM EST Laboratory Laboratory [facility] [place] [address] [place] [phone] [facility] [address] [place] [address] Constipation, unspecified constipation type Allergies Active Allergy Reactions Criticality Noted Date [...] Wheezing. 18 g 1 4 Active Tiotropium [place] Monohydrate 18 MCG Inhalation Capsule (Spiriva HandiHaler)Indic [...] mRNA, LNP-s, No Pre serve, 2-Dose Series ([employer]) 04/27/2020,04/06/2020 Pneumococcal Conjugate Vacc, 13 Valent (Prevnar) [...] 8:40 AM EDT Office Visit Family Practice [facility] [address] [place] [address] Maria G Rendon, 200 [facility] [place] [address] 07/29/2024 7:30 AM EDT Imaging Radiology [facility] [address] [facility] [address] [facility] [place] [id number] 07/29/2024 8:00 AM EDT Appointment Vascular Lab [address] [address] 07/29/2024 9:00 AM EDT Appointment Vascular Lab [facility], [address] [address] 07/29/2024 9:30 AM EDT Appointment Vascular Lab [facility], [address] [address] 07/29/2024 10:30 AM EDT Appointment Vascular Lab [facility], [address] [address] 07/29/2024 11:00 AM EDT Appointment Vascular Lab [facility], [address] [address] 08/12/2024 10:50 AM EDT Office Visit Vascular Surgery, [facility] [address] [place] [address] David Boss MD [facility] [place] [address] 08/17/2024 8:00 AM EDT Office Visit Pulmonary Medicine, [facility] [address] [place] [address] Humphrey Cormier MD [address] [place] [address] 09/28/2024 11:00 AM EDT Imaging Radiology [facility] [address] [place] [address] Scheduled Procedures Name Priority Associated Diagnoses [...] 05/22/2024 05/23/2023, 05/2017 CKD PHOS USE SMARTSET 68134 09/04/202408/18, 05/31/2022, 04/09/2019, Additional history exists GFR 10/07/2024 04/09/2024, 10/2023, 01/26/2024, Additional history exists Depression Screening 02/25/2025 02/26/2024 O2 ASSESSMENT COMPLETED IN PAST YEAR FOR COPD 03/16/2025 03/16/2024 CKD HGB USE SMARTSET 02806 04/09/202504/09, 01/27/2024, 01/26/2024, Additional history exists DTap/Tdap [...] this encounter Medical Devices Implanted Type Area Peace Officer Device Identifier Shelf Expiration Date Model / Serial / Lot Patch Xenosure [id number] - [id number] - [id number] Implanted:Qty : 1 on 05/12/2021 by David Boss MD at [place] [facility] [place] Right: Femoral Artery [id number] [id number] 11/15/2026 E0.8P8 / [id number] / [id number] Graft Stent Viab [id number] - [id number] - [id number] Implanted:Qty : 1 on 05/12/2021 by David Boss MD at [place] [facility] [place] Right: Iliac [employer] [id number] 01/06/2024 [id number] [id number] / [id number] / [id number] documented as of this encounter Procedures Procedure Name Priority Date/Time Associated Diagnosis Comments BASIC METABOLIC PANEL Routine 04/09/2024 3:10 PM EST Constipation, unspecified constipation type CBC Routine 04/09/2024 3:10 PM EST Constipation, unspecified constipation type documented in this encounter Results * (ABNORMAL) BASIC METABOLIC PANEL (04/09/2024 3:10 PM EST) BUN 25(H) 6 - 20 mg/dL 04/09/2024 4:06 PM EST LABORATORY [place] 56-02 CREATININE 1.4(H) 0.5 - 1.0 mg/dL 04/09/2024 4:06 PM EST [address] 56-02 EGFR 38(L) >=60 mL/min 04/09/2024 4:06 PM EST LABORATORY [place] 56-02 Comment:eGFR is calculated b ased on the CKD-EPI 2020 equation. SODIUM 129(L) 135 - 146 mmol/L 04/09/2024 4:06 PM EST [facility] 56- POTASSIUM 4.5 3.5 - 5.1 mmol/L 04/09/2024 4:06 PM EST [facility] 56- CHLORIDE 89(L) 98 - 107 mmol/L 04/09/2024 4:06 PM [facility] 56- CO2 22 22 - 32 mmol/L 04/09/2024 4:06 PM [facility] 56- ANION GAP 18(H) 7 - 15 mmol/L 04/09/2024 4:06 PM [facility] 56 GLUCOSE 126(H) 70 - 120 mg/dL 04/09/2024 4:06 PM [facility] 56 CALCIUM 9.5 8.4 - 10.2 mg/dL 04/09/2024 4:06 PM [facility] 56 Blood Venous blood specimen / Unknown Venipuncture / Unknown 04/09/2024 3:10 PM EST 04/09/2024 3:10 PM EST May Ashwin DIAZ LAB BLOOD ORDERABLES Final Res ult [facility] [address] [place], [place] [id number] * (ABNORMAL) CBC (04/09/2024 3:10 PM EST) WBC 12.82(H) 4.00 - 10.80 K/uL 04/09/2024 3:19 PM [facility] 56 RBC 3.73 3.85 - 5.15 M/uL 04/09/2024 3:19 PM [facility] 56- HGB 11.2(L) 12.0 - 15.3 g/dL 04/09/2024 3:19 PM [facility] 56- HCT 33.5(L) 36.0 - 45.2 % 04/09/2024 3:19 PM [facility] 56- MCV 89.8 81.5 - 97.5 fL 04/09/2024 3:19 PM [facility] 56- MCH 30.0 27.0 - 34.0 pg 04/09/2024 3:19 PM EST [facility] 56- MCHC 33.4 32.0 - 36.0 g/dL 04/09/2024 3:19 PM EST [facility] 56- RDW 14.2 11.5 - 15.5 % 04/09/2024 3:19 PM EST [facility] 56- PLT 405(H) 140 - 400 K/uL 04/09/2024 3:19 PM EST [facility] 56- MPV 9.9 6.6 - 11.1 fL 04/09/2024 3:19 PM [facility] 56- Blood Venous blood specimen / Unknown Venipuncture / Unknown 04/09/2024 3:10 PM EST 04/09/2024 3:10 PM EST us May Ashwin DIAZ LAB BLOOD ORDERABLES Final Res ult [facility] 56 [address] [place] [address] documented in this encounter Visit Diagnoses Diagnosis Constipation, unspecified constipation type documented in this [...] and were consensually agreed upon. Care Teams Business Transformation Analyst Relationship Specialty Start Date End Date Maria G Rendon DO [address] [place] [address] PCP - General Family Medicine 11/03/20 documented as of this encounter
--- OUTSIDE RECORDS SUMMARY | 2024-04-10 06:21 | External Medical Summary | Summary of Care ---
Author Name Unknown Organization [facility] Address [address] [address] Phone [phone] Care Team Providers Care Preanalytics Team Lead Name Role Phone Maria G Rendon DO Primary Care Provider Reason for Visit * Reason Onset Date Comments Abnormal Test Results 04/09/2024 Encounter Details Date Type Department Care Team (Late st Contact Info) Description 04/09/2024 Telephone Family Practice [facility] [address] [facility] [place] [address] Charity Christopher PA-C [address] [facility] [place] [address] Abnormal Test Results Allergies Active Allergy Reactions Criticality Noted Date Comments Acetazolamide 05/22/2017 Percodan Psych complications 08/25/2003 Shakes really bad documented as of this encounter (statuses as of 04/10/2024) Medications CHILDRENS ASPIRIN 81 MG OR CHEW [...] Wheezing. 18 g 1 4 Active Tiotropium Troy Monohydrate 18 MCG Inhalation Capsule (Spiriva HandiHaler)Indic [...] as of this encounter (statuses as of 04/10/2024) Active Problems Problem Noted Date Diagnosed Date [...] as of this encounter (statuses as of 04/10/2024) Resolved Problems Problem Noted Date Diagnosed Date [...] as of this encounter (statuses as of 04/10/2024) Immunizations Name Administration Dates Next Due COVID-19 mRNA, LNP-s, No Pre serve, 2-Dose Series (Sphere 3d) 04/27/2020,04/06/2020 Pneumococcal Conjugate Vacc, 13 Valent (Prevnar) [...] encounter Miscellaneous Notes * Telephone Encounter - Saumya Gan LPN - 04/09/2024 4:30 PM EST At the request of Charity Christopher I called patient to let her know that her x-ray suggests an ileus and she needs to go to the ED for further evaluation. Patient states her granddaughter just left her house and the patient does not drive so she has no way to get there. I asked if there was anyone she could ask to take her and she said no- wants to know if she can wait until tomorrow. I discussed with Charity who says patient really needs to go today to be evaluated. I again reiterated this to the patient and offered to call an ambulance to transport her. She said she'll give her granddaughter time to get home and then she'll call and see if she'll take her (the patient) to the ED. I again stressed that it is very important that she go TODAY to the ED for eval. Patient verbalizedunderstanding. documented in this encounter Plan of Treatment Upcoming Encounters Date Type Department Care Team (Late st Contact Info) Description 06/19/2024 8:40 AM EDT Office Visit [facility] [address] [facility] [place] [address] Maria G Rendon DO [address] [facility] [place] [address] 07/29/2024 7:30 AM EDT Imaging Radiology [facility] [address] [facility] [address] [place] [id number] 07/29/2024 8:00 AM EDT Appointment V[facility] Lab [address] [address] 07/29/2024 9:00 AM EDT Appointment V[facility] Lab [address] [address] 07/29/2024 9:30 AM EDT Appointment Vascular Lab [place] [address] [place] [address] 07/29/2024 10:30 AM EDT Appointment [facility] [place] [address] [place] [address] 07/29/2024 11:00 AM EDT Appointment Vascular Lab [address] [address] 08/12/2024 10:50 AM EDT Office Visit Vascular Surgery, [facility] [address] [facility] [place] [address] David Boss MD [address] [place] [address] 08/17/2024 8:00 AM EDT Office Visit Pulmonary Medicine, [facility] [address] [facility] [place] [address] Humphrey Cormier MD [address] [facility] [place] [address] 09/28/2024 11:00 AM EDT Imaging Radiology [facility] [address] [facility] [id number] Scheduled Procedures Name Priority Associated Diagnoses Date/Ti [...] 05/22/2024 05/23/2023, 05/2017 CKD PHOS USE SMARTSET 47809 09/04/202408/18, 05/31/2022, 04/09/2019, Additional history exists GFR 10/07/2024 04/09/2024, 10/2023, 01/26/2024, Additional history exists Depression Screening 02/25/2025 02/26/2024 O2 ASSESSMENT COMPLETED IN PAST YEAR FOR COPD 03/16/2025 03/16/2024 CKD HGB USE SMARTSET 38808 04/09/202504/09, 01/27/2024, 01/26/2024, Additional history exists DTap/Tdap [...] this encounter Medical Devices Implanted Type Area Ground Host/Hostess Device Identifier Shelf Expiration Date Model / Serial / Lot Patch Xenosure 0.6lwh6po - [id number] - [id number] Implanted:Qty : 1 on 05/12/2021 by David Boss MD [place] [facility] [place]: Femoral Artery [employer] [id number] 11/15/2026 E0.8P8 / [id number] / [id number] Graft Stent Viab [id number] - [id number] - [id number] Implanted:Qty : 1 on 05/12/2021 by David Boss MD at [place] [facility] [place] Right: Iliac [employer] [id number] 01/06/2024 [id number] / [id number] / [id number] documented as of this encounter Advance Directives [...] and were consensually agreed upon. Care Teams Preanalytics Team Lead Relationship Specialty Start Date End Date Maria G Rendon DO [address] [place] [address] PCP - General Family Medicine 11/03/20 documented as of this encounter
[2024-04-10] MEDS ORDERED: PIPERACILLIN/TAZOBACTAM 4.5 GM/100 ML BAG IV SCH (08:00)
[2024-04-10 08:42] LABS: Estimated Average Glucose 114 mg/dl; Hemoglobin A1C 5.6 % (4.5-5.6)
[2024-04-10] MEDS: UMECLIDINIUM BROMIDE 62.5MCG/BLISTER 7 PUFFS/INHALER INH SCH (08:59)
[2024-04-10] MEDS: ASPIRIN 81 MG ECTAB PO SCH (08:59)
[2024-04-10] MEDS: SIMVASTATIN 20 MG TAB PO SCH (08:59)
[2024-04-10] MEDS ORDERED: LOSARTAN POTASSIUM 25 MG TAB PO SCH (09:00)
[2024-04-10] MEDS: LOSARTAN POTASSIUM 50 MG TAB PO SCH (09:51)
[2024-04-10] MEDS: PIPERACILLIN/TAZOBACTAM 4.5 GM/100 ML BAG IV SCH (09:51)
--- NOTE | 2024-04-10 11:36 | Communication Note ---
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 This aneurysm is known by her. She has been followed yearly by [facility] and has a ct scan and followup visit with them in the next 3 to 4 months. There has not been any change in the aneurysm. She does not need have a vascular consult while here for her asymptomatic thoracoabdominal aneurysm which is causing no symptoms and basically was an incidental finding on CTA. There was no extravasation of contrast, surrounding hematoma, or stranding on the cta. If you have any questions, please call.
--- NOTE | 2024-04-10 15:33 | Hospitalist Progress Note ---
Date of Service April 10, 2024 Assessment & Plan (1) Severe sepsis: Plan: Severe sepsis SIRS plus lactic acidosis Secondary to complicated UTI --CT ABD:Increased colonic stool retention suggesting constipation. There is significant stool and gas in the right colon and transverse colon. -- Blood, urine culture pending Received IV fluids Empirically on Zosyn Constipation H/O chronic constipation/gastroparesis CT as above Continue bowel regimen Type II BMs today Chronic hyponatremia Likely SIADH Monitor sodium levels Continue fluid restriction Pulmonary nodule Incidental finding on CT --CT showed:There is a somewhat irregular nodular structure in the lateral right upper lobe measuring 7.9 x 7 x 7 mm (series 7; images 74-79). Somewhat angular and spiculated margins suggested inferiorly. There are additional nodular structures within the 9 mm structure noted in the superior segment of the left lower lobe adjacent to the major fissure (image 90). There is also subtle irregularity juxtapleural changes measuring 6 mm laterally (image 96). -Follow-up as outpatient Peripheral artery disease S/P surgery Chronic mesenteric ischemia as per records Abdominal aortic aneurysm -Abdominal CTA reviewed Follows with vascular surgery as outpatient Appreciate vascular surgery input Continue home medications Subacute right acetabular fracture--POA Right inferior pubic ramus fracture/right sacral--POA Incidental finding on CT --CT:subacute fracture involving the anterior column of the right acetabulum and involving the right inferior pubic ramus. Subacute fracture involving the right sacral wing. 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 Px: Heparin SQ Code Status Full code Admission and Anticipated Discharge Date Admission Date: April 09, 2024 Subjective Patient is seen and examined at bedside Abdominal pain resolved after 2 large bowel movements today Admits to have some dysuria but denies any hematuria Also reports chronic cough which she attributes to ongoing smoking Denies any chest pain, dyspnea, dizziness No other complaints Review of Systems Review of Systems: All systems reviewed & are unremarkable except as noted in Subjective Physical Exam Physical Exam: Physical Exam: Vitals signs as noted above General Appearance: Thin, frail, no apparent distress Head: normocephalic, Atraumatic Eyes: normal inspection, EOMI Neck: supple, Trachea midline Respiratory/Chest: Decreased breath sounds, CTA, No accessory muscle use Cardiovascular: S1, S2, No murmur, tachycardia Abdomen/GI:Soft, Non tender, Bowel sounds present Extremities/Musculoskeletal:normal inspection, no edema Neurologic/Psych:AAOX3, grossly no focal neurological deficits Skin: normal color, warm Results & Data Results & Data Vital Signs (Past 12 Hours) Vital Signs Temp Pulse Pulse Resp BP Pulse Ox O2 Del Method 04/10/24 15:20 96 H 04/10/24 14:53 36.6 C 87 20 153/76 H 96 Room Air 04/10/24 11:00 36.6 C 92 H 20 151/76 H 98 Room Air 04/10/24 08:04 90 04/10/24 07:00 36.7 C 94 H 16 165/78 H 93 Room Air 04/10/24 04:14 86 191/106 H Laboratory Results Short CBC 04/09/24 04/10/24 Range/Units 18:51 01:25 WBC 14.00 H 13.14 H (4.8-10.8) K/ul Hgb 11.6 L 9.8 L (12.0-16.0) g/dl Hct 34.4 L 29.5 L (37.0-47.0) % Plt Count 430 H 392 (130-400) K/uL BMP 04/09/24 04/10/24 04/10/24 18:51 01:25 05:50 Sodium 129 L 128 L 130 L Potassium 4.1 3.7 Chloride 92 L 98 Carbon Dioxide 25 22 BUN 28 H 27 H Creatinine 1.60 H 1.43 H Glucose 121 H 110 H Calcium 9.9 9.1 Liver Function 04/09/24 Range/Units 18:51 Total Bilirubin 0.9 (0.2-1.0) mg/dl AST 12 L (13-39) U/L ALT 7 (7-52) U/L Alkaline Phosphatase 105 H (34-104) U/L Albumin 3.7 (3.4-5.0) gm/dl Urine 04/10/24 Range/Units 02:53 Urine Color Yellow Urine Appearance Turbid A (Clear) Urine pH 5.5 (4.5-7.5) Ur Specific [place] 1.043 H (1.000-1.030) Urine Protein 1+ H (Negative) Urine Glucose (UA) Negative (Negative)
[2024-04-10] MEDS: DULoxetine HCL 60 MG CAP PO SCH (17:19)
[2024-04-10] MEDS: ACETAMINOPHEN 325 MG TAB PO PRN (19:16)
[2024-04-10] MEDS: HYDROCODONE/ACETAMOPHEN 5/325MG TAB PO PRN (21:55)
[2024-04-11 07:02] LABS: Hematocrit (blood only) 26.2 % (37.0-47.0); Hemoglobin 8.7 g/dl (12.0-16.0); Mean Corpuscular Hgb Conc 33.2 g/dL (32.0-36.0); Mean Corpuscular Volume 87.3 fL (80.0-100.0); Mean Platelet Volume 9.6 fL (9.4-12.4); Platelet Count 357 K/uL (130-400); RDW Coefficient of Variation 14.6 % (11.5-14.5); RDW Standard Deviation 46.5 fL (36.4-46.3); White Blood Count 10.69 K/ul (4.8-10.8)
[2024-04-11 07:09] LABS: BUN Creatinine Ratio 17.9 (10-20); Calcium 8.2 mg/dl (8.6-10.3); Creatinine Clr Calc Pharmacy 28.3 ml/min; Magnesium 2.4 mg/dl (1.7-2.4); Potassium 3.8 mmol/L (3.5-5.1)
[2024-04-11] MEDS: POLYETHYLENE (MIRALAX) 17 GM PACK PO SCH (09:08)
[2024-04-11] MEDS: LIDOCAINE 5% 1 PATCH TD SCH (12:46)
--- NOTE | 2024-04-11 15:22 | Hospitalist Progress Note ---
Date of Service April 11, 2024 Assessment & Plan (1) Severe sepsis: Plan: Severe sepsis SIRS plus lactic acidosis Secondary to complicated UTI --CT ABD:Increased colonic stool retention suggesting constipation. There is significant stool and gas in the right colon and transverse colon. -- Blood culture negative to date Urine culture preliminary growing E. coli Received IV fluids Continue IV Zosyn for now Leukocytosis resolved Constipation H/O chronic constipation/gastroparesis CT as above Continue bowel regimen Resolved Monitor Chronic hyponatremia Likely SIADH Monitor sodium levels Continue fluid restriction Sodium 129 today Pulmonary nodule Incidental finding on CT --CT showed:There is a somewhat irregular nodular structure in the lateral right upper lobe measuring 7.9 x 7 x 7 mm (series 7; images 74-79). Somewhat angular and spiculated margins suggested inferiorly. There are additional nodular structures within the 9 mm structure noted in the superior segment of the left lower lobe adjacent to the major fissure (image 90). There is also subtle irregularity juxtapleural changes measuring 6 mm laterally (image 96). -Follow-up as outpatient Peripheral artery disease S/P surgery Chronic mesenteric ischemia as per records Abdominal aortic aneurysm -Abdominal CTA reviewed Follows with vascular surgery as outpatient Appreciate vascular surgery input Continue home medications Subacute right acetabular fracture--POA Right inferior pubic ramus fracture/right sacral--POA Incidental finding on CT --CT:subacute fracture involving the anterior column of the right acetabulum and involving the right inferior pubic ramus. Subacute fracture involving the right sacral wing. 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 Px: Heparin SQ Code Status Full code Admission and Anticipated Discharge Date Admission Date: April 09, 2024 Subjective Patient is seen and examined at bedside Reports having back pain which she attributes to hospital bed Denies any abdominal pain today Noted drop in hemoglobin, denies any bleeding issues Denies any chest pain, dyspnea, dizziness Review of Systems Review of Systems: All systems reviewed & are unremarkable except as noted in Subjective Physical Exam Physical Exam: Physical Exam: Vitals signs as noted above General Appearance: Thin, frail, no apparent distress Head: normocephalic, Atraumatic Eyes: normal inspection, EOMI Neck: supple, Trachea midline Respiratory/Chest: Decreased breath sounds, CTA, No accessory muscle use Cardiovascular: S1, S2, No murmur, tachycardia Abdomen/GI:Soft, Non tender, Bowel sounds present Extremities/Musculoskeletal:normal inspection, no edema Neurologic/Psych:AAOX3, grossly no focal neurological deficits Skin: normal color, warm Results & Data Results & Data Vital Signs (Past 12 Hours) Vital Signs Temp Pulse Pulse Resp BP Pulse Ox O2 Del Method 04/11/24 14:27 101 H 04/11/24 11:24 36.8 C 96 H 20 130/69 93 Room Air 04/11/24 08:00 Room Air 04/11/24 08:00 36.7 C 91 H 20 134/71 91 Room Air 04/11/24 07:24 93 H 04/11/24 03:37 36.7 C 91 H 16 143/72 H 95 Room Air Laboratory Results Short CBC 04/11/24 Range/Units 06:28 WBC 10.69 (4.8-10.8) K/ul Hgb 8.7 L (12.0-16.0) g/dl Hct 26.2 L (37.0-47.0) % Plt Count 357 (130-400) K/uL BMP 04/11/24 06:28 Sodium 129 L Potassium 3.8 Chloride 97 L Carbon Dioxide 26 BUN 22 Creatinine 1.23 H Glucose 93 Calcium 8.2 L
[2024-04-11] MEDS: PIPERACILLIN/TAZOBACTAM 4.5 GM/100 ML BAG IV SCH (17:37)
[2024-04-12 05:10] LABS: Hemoglobin 8.1 g/dl (12.0-16.0); Mean Corpuscular Hemoglobin 29.5 pg (25.0-34.0); Mean Corpuscular Hgb Conc 33.8 g/dL (32.0-36.0); Mean Corpuscular Volume 87.3 fL (80.0-100.0); Mean Platelet Volume 9.9 fL (9.4-12.4); Platelet Count 349 K/uL (130-400); RDW Coefficient of Variation 14.6 % (11.5-14.5); RDW Standard Deviation 47.3 fL (36.4-46.3); Red Blood Count 2.75 M/uL (4.20-5.40); White Blood Count 8.47 K/ul (4.8-10.8)
[2024-04-12 05:26] LABS: BUN Creatinine Ratio 18.8 (10-20); Calcium 8.3 mg/dl (8.6-10.3); Creatinine Clr Calc Pharmacy 26.2 ml/min; Potassium 3.8 mmol/L (3.5-5.1)
[2024-04-12] MEDS: bisacodyL 5 MG TABEC PO PRN (09:14)
[2024-04-12 10:33] LABS: Iron < 10 mcg/dl (35-150); Transferrin 99 mg/dl (200-360)
[2024-04-12 10:51] LABS: Ferritin 374.5 ng/ml (8-388)
[2024-04-12 11:12] LABS: Folate (Folic Acid),Ser orPlas 15.62 ng/ml (>5.38)
[2024-04-12] MEDS: IRON SUCROSE 300 MG in SODIUM CHLORIDE 0.9% 250 ML IV ONE (13:08)
--- NOTE | 2024-04-12 15:37 | Hospitalist Progress Note ---
Date of Service April 12, 2024 Assessment & Plan (1) Severe sepsis: Plan: Severe sepsis SIRS plus lactic acidosis Secondary to complicated UTI --CT ABD:Increased colonic stool retention suggesting constipation. There is significant stool and gas in the right colon and transverse colon. -- Blood culture negative to date Urine culture grew E. coli Received IV fluids Continue IV Zosyn>> will transition to IV Rocephin tomorrow Leukocytosis resolved Constipation H/O chronic constipation/gastroparesis CT as above Continue bowel regimen Resolved Monitor Acute on chronic anemia likely due to CKD, iron deficiency Denies any bleeding issues Mildly low iron levels Normal B12, folate levels Peripheral smear pending FOBT pending Given IV Venofer today Chronic hyponatremia Likely SIADH Monitor sodium levels Continue fluid restriction Sodium 128 today Pulmonary nodule Incidental finding on CT --CT showed:There is a somewhat irregular nodular structure in the lateral right upper lobe measuring 7.9 x 7 x 7 mm (series 7; images 74-79). Somewhat angular and spiculated margins suggested inferiorly. There are additional nodular structures within the 9 mm structure noted in the superior segment of the left lower lobe adjacent to the major fissure (image 90). There is also subtle irregularity juxtapleural changes measuring 6 mm laterally (image 96). -Follow-up as outpatient Peripheral artery disease S/P surgery Chronic mesenteric ischemia as per records Abdominal aortic aneurysm -Abdominal CTA reviewed Follows with vascular surgery as outpatient Appreciate vascular surgery input Continue home medications Subacute right acetabular fracture--POA Right inferior pubic ramus fracture/right sacral--POA Incidental finding on CT --CT:subacute fracture involving the anterior column of the right acetabulum and involving the right inferior pubic ramus. Subacute fracture involving the right sacral wing. 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 Px: Heparin SQ--Hold Re:Anemia SCDs for now Code Status Full code Admission and Anticipated Discharge Date Admission Date: April 09, 2024 Subjective Patient is seen and examined at bedside Back pain is controlled No new complaints Denies any bleeding issues Denies any chest pain, dyspnea, dizziness, abdominal pain Review of Systems Review of Systems: All systems reviewed & are unremarkable except as noted in Subjective Physical Exam Physical Exam: Physical Exam: Vitals signs as noted above General Appearance: Thin, frail, no apparent distress Head: normocephalic, Atraumatic Eyes: normal inspection, EOMI Neck: supple, Trachea midline Respiratory/Chest: Decreased breath sounds, CTA, No accessory muscle use Cardiovascular: S1, S2, No murmur, tachycardia Abdomen/GI:Soft, Non tender, Bowel sounds present Extremities/Musculoskeletal:normal inspection, no edema Neurologic/Psych:AAOX3, grossly no focal neurological deficits Skin: normal color, warm Results & Data Results & Data Vital Signs (Past 12 Hours) Vital Signs Temp Pulse Pulse Resp BP Pulse Ox O2 Del Method 04/12/24 11:37 36.7 C 100 H 20 144/62 H 92 Room Air 04/12/24 07:31 36.6 C 91 H 16 142/67 H 90 Room Air 04/12/24 07:22 Room Air 04/12/24 07:22 101 H Laboratory Results Short CBC 04/12/24 Range/Units 04:28 WBC 8.47 (4.8-10.8) K/ul Hgb 8.1 L (12.0-16.0) g/dl Hct 24.0 L (37.0-47.0) % Plt Count 349 (130-400) K/uL BMP 04/12/24 04:28 Sodium 128 L Potassium 3.8 Chloride 95 L Carbon Dioxide 28 BUN 25 H Creatinine 1.33 H Glucose 97 Calcium 8.3 L
[2024-04-13 06:47] LABS: Hematocrit (blood only) 24.9 % (37.0-47.0); Hemoglobin 8.4 g/dl (12.0-16.0); Mean Corpuscular Hemoglobin 29.3 pg (25.0-34.0); Mean Corpuscular Hgb Conc 33.7 g/dL (32.0-36.0); Mean Corpuscular Volume 86.8 fL (80.0-100.0); Mean Platelet Volume 9.7 fL (9.4-12.4); Platelet Count 363 K/uL (130-400); RDW Coefficient of Variation 14.6 % (11.5-14.5); RDW Standard Deviation 46.5 fL (36.4-46.3); Red Blood Count 2.87 M/uL (4.20-5.40); White Blood Count 8.55 K/ul (4.8-10.8)
[2024-04-13 07:03] LABS: BUN Creatinine Ratio 13.7 (10-20); Calcium 8.6 mg/dl (8.6-10.3); Creatinine Clr Calc Pharmacy 26.6 ml/min; Potassium 3.5 mmol/L (3.5-5.1)
[2024-04-13] MEDS: cefTRIAXone SODIUM 1,000 MG/50 ML BAG IV SCH (07:58)
[2024-04-13] MEDS: IRON SUCROSE 300 MG in SODIUM CHLORIDE 0.9% 250 ML IV ONE (10:08)
--- NOTE | 2024-04-13 18:02 | Hospitalist Progress Note ---
Date of Service April 13, 2024 Assessment & Plan (1) Severe sepsis: Plan: Severe sepsis SIRS plus lactic acidosis Secondary to complicated UTI --CT ABD:Increased colonic stool retention suggesting constipation. There is significant stool and gas in the right colon and transverse colon. -- Blood culture negative to date Urine culture grew E. coli Received IV fluids Continue IV Zosyn>> transition to IV Rocephin Leukocytosis resolved PT OT prior to discharge Constipation H/O chronic constipation/gastroparesis CT as above Continue bowel regimen Resolved Monitor Acute on chronic anemia likely due to CKD, iron deficiency Denies any bleeding issues Low iron levels Normal B12, folate levels Peripheral smear noncontributory FOBT pending Given IV Venofer today Advised to follow-up with hematology as outpatient Will start on oral iron supplements on discharge Chronic hyponatremia Likely SIADH Monitor sodium levels Continue fluid restriction Sodium 133 today Pulmonary nodule Incidental finding on CT --CT showed:There is a somewhat irregular nodular structure in the lateral right upper lobe measuring 7.9 x 7 x 7 mm (series 7; images 74-79). Somewhat angular and spiculated margins suggested inferiorly. There are additional nodular structures within the 9 mm structure noted in the superior segment of the left lower lobe adjacent to the major fissure (image 90). There is also subtle irregularity juxtapleural changes measuring 6 mm laterally (image 96). -Follow-up as outpatient Peripheral artery disease S/P surgery Chronic mesenteric ischemia as per records Abdominal aortic aneurysm -Abdominal CTA reviewed Follows with vascular surgery as outpatient Appreciate vascular surgery input Continue home medications Subacute right acetabular fracture--POA Right inferior pubic ramus fracture/right sacral--POA Incidental finding on CT --CT:subacute fracture involving the anterior column of the right acetabulum and involving the right inferior pubic ramus. Subacute fracture involving the right sacral wing. 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 Px: Heparin SQ--Hold Re:Anemia SCDs for now Code Status Full code Admission and Anticipated Discharge Date Admission Date: April 09, 2024 Subjective Patient is seen and examined at bedside Offers no new complaints today Denies any bleeding issues Denies any chest pain, dyspnea, dizziness, abdominal pain Hemoglobin stable Review of Systems Review of Systems: All systems reviewed & are unremarkable except as noted in Subjective Physical Exam Physical Exam: Physical Exam: Vitals signs as noted above General Appearance: Thin, frail, no apparent distress Head: normocephalic, Atraumatic Eyes: normal inspection, EOMI Neck: supple, Trachea midline Respiratory/Chest: Decreased breath sounds, CTA, No accessory muscle use Cardiovascular: S1, S2, No murmur Abdomen/GI:Soft, Non tender, Bowel sounds present Extremities/Musculoskeletal:normal inspection, no edema Neurologic/Psych:AAOX3, grossly no focal neurological deficits Skin: normal color, warm Results & Data Results & Data Vital Signs (Past 12 Hours) Vital Signs Temp Pulse Pulse Resp BP Pulse Ox O2 Del Method 04/13/24 16:36 36.8 C 90 16 174/94 H 90 Room Air 04/13/24 13:02 89 04/13/24 12:33 36.7 C 96 H 20 179/89 H 92 Room Air 04/13/24 09:30 Room Air 04/13/24 07:50 36.7 C 93 H 16 154/78 H 91 Room Air Laboratory Results Short CBC 04/13/24 Range/Units 06:15 WBC 8.55 (4.8-10.8) K/ul Hgb 8.4 L (12.0-16.0) g/dl Hct 24.9 L (37.0-47.0) % Plt Count 363 (130-400) K/uL BMP 04/13/24 06:15 Sodium 133 L Potassium 3.5 Chloride 97 L Carbon Dioxide 27 BUN 18 Creatinine 1.31 H Glucose 85 Calcium 8.6
[2024-04-13] MEDS: amLODIPine BESYLATE 5 MG TAB PO ONE (20:19)
[2024-04-14] MEDS: amLODIPine BESYLATE 5 MG TAB PO SCH (08:01)
[2024-04-14 09:01] LABS: Hematocrit (blood only) 30.8 % (37.0-47.0); Hemoglobin 10.5 g/dl (12.0-16.0)
[2024-04-14] MEDS: IRON SUCROSE 200 MG in SODIUM CHLORIDE 0.9% 100 ML IV ONE (09:17)
[2024-04-14 11:28] VITALS: RESP 16; TEMP 97.5
[2024-04-14 12:00] VITALS: O2SAT 95
[2024-04-14] MEDS: HYDROmorphone HCL 2 MG TAB PO PRN (12:36)
--- NOTE | 2024-04-14 13:01 | Hospitalist Progress Note ---
Date of Service April 14, 2024 Assessment & Plan (1) Severe sepsis: Plan: Severe sepsis SIRS plus lactic acidosis Secondary to complicated UTI --CT ABD:Increased colonic stool retention suggesting constipation. There is significant stool and gas in the right colon and transverse colon. -- Blood culture negative to date Urine culture grew E. coli Received IV fluids Continue IV Zosyn>> transition to IV Rocephin Leukocytosis resolved PT OT Plan to discharge home today Constipation H/O chronic constipation/gastroparesis CT as above Continue bowel regimen Resolved Monitor Acute on chronic anemia likely due to CKD, iron deficiency Denies any bleeding issues Low iron levels Normal B12, folate levels Peripheral smear noncontributory FOBT pending Received IV Venofer Advised to follow-up with hematology as outpatient Will start on oral iron supplements on discharge Hemoglobin better today Chronic hyponatremia Likely SIADH Monitor sodium levels Continue fluid restriction Sodium 132 today Pulmonary nodule Incidental finding on CT --CT showed:There is a somewhat irregular nodular structure in the lateral right upper lobe measuring 7.9 x 7 x 7 mm (series 7; images [id number]). Somewhat angular and spiculated margins suggested inferiorly. There are additional nodular structures within the 9 mm structure noted in the superior segment of the left lower lobe adjacent to the major fissure (image 90). There is also subtle irregularity juxtapleural changes measuring 6 mm laterally (image 96). -Follow-up as outpatient Peripheral artery disease S/P surgery Chronic mesenteric ischemia as per records Abdominal aortic aneurysm -Abdominal CTA reviewed Follows with vascular surgery as outpatient Appreciate vascular surgery input Continue home medications Subacute right acetabular fracture--POA Right inferior pubic ramus fracture/right sacral--POA Incidental finding on CT --CT:subacute fracture involving the anterior column of the right acetabulum and involving the right inferior pubic ramus. Subacute fracture involving the right sacral wing. 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 Px: Heparin SQ--Hold Re:Anemia SCDs for now Code Status Full code Disposition Home Admission and Anticipated Discharge Date Admission Date: April 09, 2024 Subjective Patient is seen and examined at bedside States feeling well today No new complaints Had PT evaluation earlier today Eager to get discharged Denies any chest pain, dyspnea, dizziness, abdominal pain Plan to be discharged home today Review of Systems Review of Systems: All systems reviewed & are unremarkable except as noted in Subjective Physical Exam Physical Exam: Physical Exam: Vitals signs as noted above General Appearance: Thin, frail, no apparent distress Head: normocephalic, Atraumatic Eyes: normal inspection, EOMI Neck: supple, Trachea midline Respiratory/Chest: Decreased breath sounds, CTA, No accessory muscle use Cardiovascular: S1, S2, No murmur Abdomen/GI:Soft, Non tender, Bowel sounds present Extremities/Musculoskeletal:normal inspection, no edema Neurologic/Psych:AAOX3, grossly no focal neurological deficits Skin: normal color, warm Results & Data Results & Data Vital Signs (Past 12 Hours) Vital Signs Temp Pulse Pulse Resp BP Pulse Ox O2 Del Method 04/14/24 11:58 36.4 C L 87 16 152/85 H 95 Room Air 04/14/24 11:04 Room Air 04/14/24 07:45 36.4 C L 96 H 16 173/79 H 94 Room Air 04/14/24 05:58 91 H 04/14/24 03:13 36.6 C 78 20 127/70 92 Room Air Laboratory Results Short CBC 04/14/24 Range/Units 07:44 Hgb 10.5 L (12.0-16.0) g/dl Hct 30.8 L (37.0-47.0) % BMP 04/14/24 07:44 Sodium 132 L
--- NOTE | 2024-04-14 13:08 | Discharge Summary ---
Date of Service April 14, 2024 Admission HPI Per Admitting Provider History obtained from patient, family, and records. Medical history significant for PVD status post surgery, hypertension, hyperlipidemia, COPD, pulmonary nodules, CRI (baseline creatinine 1.1-1.4), gastroparesis, chronic mesenteric ischemia as per records, chronic constipation, chronic anemia (baseline hemoglobin of 11), chronic hyponatremia, history of DVT as per records, anxiety disorder, ongoing tobacco abuse. 2 weeks history of worsening achy lower abdominal pain. Dysuria symptoms without fever, chills. Denies hematuria. Usual constipation. Last BM about 2 weeks ago which has happened before as per patient. Patient denies headache, chest pain, SOB symptoms. Some nausea symptoms. Patient directed to ER for evaluation by PCPs office. SBP 180s upon arrival at the ER. Medical History as above 2007 colonoscopy adenomatous and hyperplastic polyps, diverticulosis Surgical History : Cholecystectomy, ALLI, vascular procedures Family History : Breast cancer, lung cancer, bronchial asthma Personal/Social history : 1/4 pack daily, no EtOH intake Admission Exam Per Admitting Provider GENERAL: Comfortable, underweight, no respiratory distress SKIN: Pallor, warm HEENT: Pale palpebral conjunctivae, no ptosis, dry buccal mucosa NECK : Supple, no tenderness CHEST : Decreased breath sounds, no tenderness HEART : Tachycardic, no obvious murmurs ABDOMEN: Some distention, minimal hypogastric tenderness EXTREMITIES : No LE swelling/tenderness, palpable pulses, no other conspicuous deformities noted NEUROLOGIC : Coherent, no facial asymmetry, no other gross focality Principal Diagnosis Severe sepsis Complicated urinary tract infection Constipation Chronic hyponatremia Pulmonary nodule Hypertension Iron deficiency anemia Discharge Data Allergies Allergy/AdvReac Type Severity Reaction Status Date / Time oxycodone Allergy Intermediate Unknown Unverified 04/10/24 01:13 Consultations 04/09/24 23:48 ED Decision to Admit Stat Procedures Performed Laboratory Results WBC 8.55 K/ul (4.8-10.8) 04/13/24 06:15 RBC 2.87 M/uL (4.20-5.40) L 04/13/24 06:15 Hgb 10.5 g/dl (12.0-16.0) L 04/14/24 07:44 Hct 30.8 % (37.0-47.0) L 04/14/24 07:44 MCV 86.8 fL (80.0-100.0) 04/13/24 06:15 MCH 29.3 pg (25.0-34.0) 04/13/24 06:15 MCHC 33.7 g/dL (32.0-36.0) 04/13/24 06:15 RDW Std Deviation 46.5 fL (36.4-46.3) H 04/13/24 06:15 RDW Coeff of August 14.6 % (11.5-14.5) H 04/13/24 06:15 Plt Count 363 K/uL (130-400) 04/13/24 06:15 MPV 9.7 fL (9.4-12.4) 04/13/24 06:15 Immature Gran % (Auto) 0.3 % 04/10/24 01:25 Neut % (Auto) 85.8 % 04/10/24 01:25 Lymph % (Auto) 5.4 % 04/10/24 01:25 [place] % (Auto) 7.8 % 04/10/24 01:25 Eos % (Auto) 0.2 % 04/10/24 01:25 Baso % (Auto) 0.5 % 04/10/24 01:25 Neut # (Auto) 11.28 K/uL (1.40-6.50) H 04/10/24 01:25 Lymph # (Auto) 0.71 K/uL (1.20-3.40) L 04/10/24 01:25 [place] # (Auto) 1.02 K/uL (0.11-0.59) H 04/10/24 01:25 Eos # (Auto) 0.02 K/uL (0.00-0.50) 04/10/24 01:25 Baso # (Auto) 0.07 K/uL (0.00-0.20) 04/10/24 01:25 Immature Gran # (Auto) 0.04 K/uL (0.01-0.20) 04/10/24 01:25 Peripher Smr Path Cons 04/13/24 06:15 Sodium 132 mmol/L (136-145) L 04/14/24 07:44 Potassium 3.5 mmol/L (3.5-5.1) 04/13/24 06:15 Chloride 97 mmol/L (98-107) L 04/13/24 06:15 Carbon Dioxide 27 mmol/L (21-32) 04/13/24 06:15 Anion Gap 9 (3-11) 04/13/24 06:15 BUN 18 mg/dl (6-23) 04/13/24 06:15 Creatinine 1.31 mg/dl (0.6-1.2) H 04/13/24 06:15 Est Cr Clr Drug Dosing 26.6 ml/min 04/13/24 06:15 eGFR 41.45 04/13/24 06:15 BUN/Creatinine Ratio 13.7 (10-20) 04/13/24 06:15 Glucose 85 mg/dl (70-99(Fasting)) 04/13/24 06:15 Estimat Average Glucose 114 mg/dl 04/09/24 18:51 Hemoglobin A1c 5.6 % (4.5-5.6) 04/09/24 18:51 Osmolality 280 mOsm/kg (280-300) 04/09/24 18:51 Lactate 0.9 mmol/L (0.4-2.0) 04/10/24 01:25 Calcium 8.6 mg/dl (8.6-10.3) 04/13/24 06:15 Magnesium 2.4 mg/dl (1.7-2.4) 04/11/24 06:28 Iron < 10 mcg/dl (35-150) L 04/12/24 04:28 Transferrin 99 mg/dl (200-360) L 04/12/24 04:28 Ferritin 374.5 ng/ml (8-388) 04/12/24 04:28 Total Bilirubin 0.9 mg/dl (0.2-1.0) 04/09/24 18:51 AST 12 U/L (13-39) L 04/09/24 18:51 ALT 7 U/L (7-52) 04/09/24 18:51 Alkaline Phosphatase 105 U/L (34-104) H 04/09/24 18:51 Total Protein 8.2 gm/dl (6.0-8.3) 04/09/24 18:51 Albumin 3.7 gm/dl (3.4-5.0) 04/09/24 18:51 Globulin 4.5 gm/dl (2.5-4.0) H 04/09/24 18:51 Albumin/Globulin Ratio 0.8 (0.9-2) L 04/09/24 18:51 Lipase 6 U/L (11-82) L 04/09/24 18:51 Vitamin B12 607 pg/ml (180-914) 04/12/24 10:03 Folate 15.62 ng/ml (>5.38) 04/12/24 10:03 Procalcitonin 0.42 ng/ml (0-0.5) 04/09/24 18:51 TSH 1.263 uIu/ml (0.300-4.500) 04/09/24 18:51 Urine Color Yellow 04/10/24 02:53 Urine Appearance Turbid (Clear) A 04/10/24 02:53 Urine pH 5.5 (4.5-7.5) 04/10/24 02:53 Ur Specific [place] 1.043 (1.000-1.030) H 04/10/24 02:53 Urine Protein 1+ (Negative) H 04/10/24 02:53 Urine Glucose (UA) Negative (Negative) 04/10/24 02:53 Urine Ketones Trace (Negative) H 04/10/24 02:53 Urine Blood 2+ (Negative) H 04/10/24 02:53 Urine Nitrite Positive (Negative) A 04/10/24 02:53 Urine Bilirubin Negative (Negative) 04/10/24 02:53 Urine Urobilinogen Negative (Negative) 04/10/24 02:53 Ur Leukocyte Esterase 3+ (Negative) H 04/10/24 02:53 Urine WBC (Auto) >50 /hpf (0-5) H 04/10/24 02:53 Urine RBC (Auto) 3-5 /hpf (0-2) H 04/10/24 02:53 U Hyaline Cast (Auto) 11-20 /lpf (0-2) H 04/10/24 02:53 U Epithel Cells (Auto) 0-2 /hpf (0-2) 04/10/24 02:53 Urine Bacteria (Auto) 4+ (None Seen) H 04/10/24 02:53 Urine Osmolality 416 mOsm/kg (500-800) L 04/10/24 02:53 Ur Random Sodium 58 mmol/L 04/10/24 02:53 Impressions Abdomen/Pelvis CT 04/09/24 19:22 Exam(s): CT ABDOMEN + PELVIS Without Contrast EXAM: CT Abdomen and Pelvis Without Intravenous Contrast CLINICAL HISTORY: Reason for exam: abd pain n/v. TECHNIQUE: Axial computed tomography images of the abdomen and pelvis without intravenous contrast. CTDI is 6.77 mGy and DLP is 307.45 mGy-cm. Automated exposure control was utilized for the study. A dose lowering technique was utilized adhering to the principles of ALARA. COMPARISON: No relevant prior studies available. FINDINGS: Lung bases: Unremarkable. ABDOMEN: Liver: Unremarkable. Gallbladder and bile ducts: Unremarkable. No calcified stones. No ductal dilation. Pancreas: Unremarkable. No ductal dilation. Spleen: Unremarkable. No splenomegaly. Adrenals: Unremarkable. No mass. Kidneys and ureters: Unremarkable. No obstructing stones. No hydronephrosis. Stomach and bowel: Increased colonic stool retention suggesting constipation. There is significant stool and gas in the right colon and transverse colon. No mechanical bowel obstruction. Distal colonic diverticula without diverticulitis. PELVIS: Appendix: Appendix not identified with certainty. Bladder: Unremarkable. No stones. Reproductive: Hysterectomy. ABDOMEN and PELVIS: Intraperitoneal space: Unremarkable. No free air, significant free fluid, or fluid collection. Bones/joints: Osteopenia. No acute fracture or dislocation. Soft tissues: Unremarkable. Vasculature: Aortoiliac atherosclerosis. 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 There is some nonspecific soft tissue density surrounding the aneurysm. 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 Fusiform infrarenal aortic aneurysm measuring up to 3 cm. Lymph nodes: Unremarkable. No enlarged lymph nodes. IMPRESSION: 1. Increased colonic stool retention suggesting constipation. There is significant stool and gas in the right colon and transverse colon. 2. Aortoiliac atherosclerosis. 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 There is some nonspecific soft tissue density surrounding the aneurysm. As clinically feasible, consider CTA for further characterization. Vascular surgery follow-up is recommended. Electronically signed by: Dann Vieyra M.D. 04/09/24 20:35 PM Chest CTA 04/09/24 21:10 Exam(s): CTA CHEST W/WO Contrast IV Amt: 115 ml optiray 320 EXAM: CT Angiography Chest Without and With Intravenous Contrast CLINICAL HISTORY: ? Dissection at the junction of the diaphragm per. TECHNIQUE: Axial computed tomographic angiography images of the chest without and with intravenous contrast using aortic dissection protocol. CTDI is 65. 74 mGy and DLP is 575.65 mGy-cm. Automated exposure control was utilized for the study. A dose lowering technique was utilized adhering to the principles of ALARA. MIP reconstructed images were created and reviewed. CONTRAST: Patient received 115 ml optiray 320 of IV contrast 115 mL Optiray 320 COMPARISON: Noncontrast CT abdomen and pelvis performed earlier FINDINGS: Aorta: The ascending aorta is ectatic, with the mid ascending aorta measuring 3.3 cm. The aortic arch and descending aorta demonstrate extensive atherosclerotic disease. No intimal wall abnormality identified on the precontrast imaging. Postcontrast imaging demonstrates extensive atheromatous changes involving the mid to descending aorta. 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 There is eccentric atheromatous changes. No intimal wall abnormality noted on the precontrast examination. No extravasation. However, there is questionable soft tissue beyond the calcified aortic wall margin at the hiatus measuring up to 7 mm in thickness. No dissection Pulmonary arteries: The proximal pulmonary artery segments are patent. Great vessels of aortic arch: There is a normal type III branching pattern of the proximal great vessels with atheromatous changes. No critical stenosis, dissection or occlusion. Lungs: No focal airspace consolidation. There is a somewhat irregular nodular structure in the lateral right upper lobe measuring 7.9 x 7 x 7 mm (series 7; images 74-79). Somewhat angular and spiculated margins suggested inferiorly. There are additional nodular structures within the 9 mm structure noted in the superior segment of the left lower lobe adjacent to the major fissure (image 90). There is also subtle irregularity juxtapleural changes measuring 6 mm laterally (image 96). Mild peribronchial cuffing noted centrally. Subtle short segment opacification of the proximal subsegmental branches serving the right middle lobe. Pleural space: Unremarkable. No significant effusion. No pneumothorax. Heart: The cardiac chambers are normal in size. Moderate proximal LAD calcification. No pericardial effusion. Bones/joints: No acute fracture. No dislocation. Soft tissues: Unremarkable. Lymph nodes: Unremarkable. No enlarged lymph nodes. IMPRESSION: 1. 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 There is eccentric atheromatous changes. No intimal wall abnormality noted on the precontrast examination. No extravasation. However, there is questionable soft tissue beyond the calcified aortic wall margin at the hiatus measuring up to 7 mm in thickness. Recommend nonemergent vascular surgery consultation. 2. Atherosclerotic disease involving the remaining thoracic aorta with ectasia of the ascending segment. No dissection. No intimal wall abnormality identified. 3. There is a somewhat irregular nodular structure in the lateral right upper lobe measuring 7.9 x 7 x 7 mm (series 7; images 74-79). Somewhat angular and spiculated margins suggested inferiorly. There are additional nodular structures within the 9 mm structure noted in the superior segment of the left lower lobe adjacent to the major fissure (image 90). There is also subtle irregularity juxtapleural changes measuring 6 mm laterally (image 96). Fleischner Society Guidelines (MacMahon, et al. Radiology 2017; 284(1):228-43) suggest the following. For low-risk patients recommend follow-up chest CT at 3-6 months. If unchanged consider an additional follow-up CT at 18-24 months. For high- risk patients initial follow-up chest CT at 3-6 months and if unchanged, 18-24 months. 4. Mild peribronchial cuffing noted centrally. Subtle short segment opacification of the proximal subsegmental branches serving the right middle lobe. This may represent chronic changes, subtle inflammatory or infectious bronchitis. Electronically signed by: Andrew Deal MD 04/09/24 22:05 PM Abdomen/Pelvis CTA 04/09/24 21:12 Exam(s): CTA ABDOMEN + PELVIS With Contrast IV Amt: 115 ml optiray 320 EXAM: CT Angiography Abdomen and Pelvis With Intravenous Contrast CLINICAL HISTORY: ? dissection. TECHNIQUE: Axial computed tomographic angiography images of the abdomen and pelvis with intravenous contrast. CTDI is 5.73 mGy and DLP is 354.01 mGy-cm. Automated exposure control was utilized for the study. A dose lowering technique was utilized adhering to the principles of ALARA. MIP reconstructed images were created and reviewed. CONTRAST: Patient received 115 ml optiray 320 of IV contrast COMPARISON: Noncontrast CT abdomen and pelvis performed at 1949 hrs. 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 There is eccentric atheromatous changes. No intimal wall abnormality noted on the precontrast examination. No extravasation. However, there is questionable soft tissue beyond the calcified aortic wall margin at the hiatus measuring up to 7 mm in thickness. Undulating ectasia of the infrarenal aorta throughout the abdomen with the aorta measuring up to 3 cm in diameter with eccentric atheromatous changes. There is a gradual tapering above the iliac bifurcation. No acute periaortic abnormality identified. No dissection. 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 There is a tight stenosis of the ostium involving the SMA, measuring only 1.5 mm (series 8; images 67- 76). The MARIO is hypertrophied and is patent. Renal arteries: There is a thrombosed saccular aneurysm component posterior and slightly inferior to the right renal artery ostium with the aneurysm measuring 10 mm (series 800; image 39). There is tight stenosis of the proximal right renal artery, measuring only 1-2 mm. Mild narrowing of the proximal left renal artery. Iliac arteries: Atherosclerotic disease involving the iliac arteries. There is a stent in the right external iliac artery. The left external iliac artery is occluded. The femoral-femoral bypass graft is patent with reconstitution of the left distal common femoral artery. Lung bases: For findings regarding the lung bases, please see the CT report of the chest performed concurrently. ABDOMEN: Liver: Unremarkable. No mass. Gallbladder and bile ducts: Cholecystectomy. Status post cholecystectomy. No ductal dilation. Pancreas: Unremarkable. No ductal dilation. No mass. Spleen: Unremarkable. No splenomegaly. Adrenals: Unremarkable. No mass. Kidneys and ureters: Unremarkable. No hydronephrosis. No solid mass. Stomach and bowel: No focal high-grade bowel obstruction. No definite asymmetric bowel mucosal abnormality. Moderate stool burden. PELVIS: Appendix: No findings to suggest acute appendicitis. Bladder: Unremarkable. No mass. Reproductive: Status post hysterectomy. ABDOMEN and PELVIS: Intraperitoneal space: Unremarkable. No significant fluid collection. No free air. Bones/joints: A healing subacute fracture involving the anterior column of the right acetabulum and involving the right inferior pubic ramus. Subacute fracture involving the right sacral wing. No dislocation. Soft tissues: Unremarkable. Lymph nodes: Unremarkable. No enlarged lymph nodes. IMPRESSION: 1. 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 There is eccentric atheromatous changes. No intimal wall abnormality noted on the precontrast examination. No extravasation. However, there is questionable soft tissue beyond the calcified aortic wall margin at the hiatus measuring up to 7 mm in thickness. Recommend nonemergent vascular surgery consultation. 2. 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 There is a tight stenosis of the ostium involving the SMA, measuring only 1.5 mm (series 8; images 67-76). The MARIO is hypertrophied and is patent. While this may represent incidental finding, given the adjacent fusiform aneurysm, this will be clinically significant if there is planned endovascular stenting. 3. Undulating ectasia of the infrarenal aorta throughout the abdomen with the aorta measuring up to 3 cm in diameter with eccentric atheromatous changes. There is a gradual tapering above the iliac bifurcation. No acute periaortic abnormality identified. 4. There is tight stenosis of the proximal right renal artery, measuring only 1-2 mm. Mild narrowing of the proximal left renal artery. 5. Atherosclerotic disease involving the iliac arteries. There is a stent in the right external iliac artery. The left external iliac artery is occluded. The femoral-femoral bypass graft is patent with reconstitution of the left distal common femoral artery. 6. A healing subacute fracture involving the anterior column of the right acetabulum and involving the right inferior pubic ramus. Subacute fracture involving the right sacral wing. Electronically signed by: Andrew Deal MD 04/09/24 22:22 PM Ordered Studies 04/09/24 19:22 CT abd pelvis wo con Stat 04/09/24 21:10 CT angio chest dissec wo/w con Stat 04/09/24 21:12 CT angio abdomen pelvis w con Stat Hospital Course (1) Severe sepsis: Severe sepsis SIRS plus lactic acidosis Secondary to complicated UTI --CT ABD:Increased colonic stool retention suggesting constipation. There is significant stool and gas in the right colon and transverse colon. -- Blood culture negative to date Urine culture grew E. coli Received IV fluids Continue IV Zosyn>> transition to IV Rocephin Leukocytosis resolved PT OT Plan to discharge home today Constipation H/O chronic constipation/gastroparesis CT as above Continue bowel regimen Resolved Monitor Acute on chronic anemia likely due to CKD, iron deficiency Denies any bleeding issues Low iron levels Normal B12, folate levels Peripheral smear noncontributory FOBT pending Received IV Venofer Advised to follow-up with hematology as outpatient Will start on oral iron supplements on discharge Hemoglobin better today Chronic hyponatremia Likely SIADH Monitor sodium levels Continue fluid restriction Sodium 132 today Pulmonary nodule Incidental finding on CT --CT showed:There is a somewhat irregular nodular structure in the lateral right upper lobe measuring 7.9 x 7 x 7 mm (series 7; images 74-79). Somewhat angular and spiculated margins suggested inferiorly. There are additional nodular structures within the 9 mm structure noted in the superior segment of the left lower lobe adjacent to the major fissure (image 90). There is also subtle irregularity juxtapleural changes measuring 6 mm laterally (image 96). -Follow-up as outpatient Peripheral artery disease S/P surgery Chronic mesenteric ischemia as per records Abdominal aortic aneurysm -Abdominal CTA reviewed Follows with vascular surgery as outpatient Appreciate vascular surgery input Continue home medications Subacute right acetabular fracture--POA Right inferior pubic ramus fracture/right sacral--POA Incidental finding on CT --CT:subacute fracture involving the anterior column of the right acetabulum and involving the right inferior pubic ramus. Subacute fracture involving the right sacral wing. 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 DVT Px: Heparin SQ--Hold Re:Anemia SCDs for now Code Status Full code Disposition Home Total Time Total Time Spent Total Time Spent (In Minutes): 54 minutes Discharge Plan Discharge Items Patient Disposition: Home - Self-Care Reason For Visit: HYPONAT, SEPSIS Discharge Diagnosis: Severe sepsis Complicated urinary tract infection Constipation Chronic hyponatremia Pulmonary nodule Hypertension Iron deficiency anemia Activity: Per Instructions section Exercise/Sports: Gradually increase as tolerated Non-emergency contact: Primary Care Provider Call non-emergency contact if: you have any medication questions, your symptoms worsen, your pain is concerning for you and you have a fever Follow-up/Referrals: Maria G Rendon DO [Primary Care Provider] - (Date & Time 04/16/2024 3:00 PM Provider: Maria G Rendon DO [facility] ) Diet: Heart Healthy Fluids: 2000ml (8 cups) Addtl Attending Provider Instructions: Follow-up with your primary care physician in 1 week Follow-up with your vascular surgeon as advised -- You are incidentally found to have pulmonary nodule on CT. Follow-up with your primary care physician for further management. --Complete the antibiotic course for urinary tract infection for 2 more days as prescribed. -- Obtain blood test (CBC, iron panel) in 1 week. Discuss with your physician for further recommendations. -- Monitor your blood pressure regularly. Discuss with your physician for further adjustment of medications as needed. Seek immediate medical attention if your symptoms reoccur or worsen Please take all medications as instructed on discharge list below. Please call if you have any questions or problems. You can reach a [facility] hospitalist on duty at [facility] 24 hours a day by calling [phone] Pending Studies at Discharge: Yes Studies:: Blood culture Stand-Alone Forms: My [facility], Smoking Cessation Medications and DC Order Prescriptions: New amlodipine [Norvasc] 5 mg Tablet 5 mg PO QAM Qty: 30 1RF ferrous sulfate 325 mg (65 mg iron) Tablet,Delayed Release (Dr/Ec) 325 mg PO BIDM Qty: 60 1RF cefuroxime axetil 250 mg tablet 250 mg PO BID Qty: 4 0RF Rx Instructions: Start taking from 04/15/24 Continued losartan 50 mg tablet 50 mg PO QAM tiotropium bromide [Spiriva with HandiHaler] 18 mcg capsule, w/inhalation device 1 cap INHALATION DAILY simvastatin 20 mg tablet 20 mg PO QAM aspirin [Children's Aspirin] 81 mg Tablet,Chewable 81 mg PO DAILY albuterol sulfate [Ventolin HFA] 90 mcg/actuation HFA aerosol inhaler 2 puff INHALATION Q4 PRN (Reason: Wheezing) albuterol sulfate 2.5 mg /3 mL (0.083 %) Solution For Nebulization 2.5 mg INHALATION Q6H PRN (Reason: Wheezing) duloxetine 60 mg capsule,delayed release(DR/EC) 60 mg PO QAM sennosides 8.6 mg Tablet 17.2 mg PO QAM polyethylene glycol 3350 [Miralax] 17 gram/dose Powder 17 g PO QAM Discontinued losartan 25 mg tablet 25 mg PO QAM Discharge Orders: Discharge Order (Routine); Ordered 04/14/24 Ordered By: Stalin Parada Admission Data Admit Date/Time: 04/09/24 23:58 Attending Provider: Stalin Parada Admit Provider: Johnson Bright Primary Care Provider: Maria G Rendon Other Providers: Johnson Bright
[2024-04-14 13:36] VITALS: BP 153/76; PULSE 100
[2024-04-15] MEDS ORDERED: FERROUS SULFATE 325 MG TAB PO SCH (09:00)
== END 2024-04-14 14:48 | disposition home or self-care (01) | DRG 871 ==
LOC: ED 18:40 → SUATTDRO 23:58 → EDINP 23:58 → 4W 04-10 01:12 → 2N 04-12 22:28